=== PATIENT | female | born 1980 ===

== ENCOUNTER 2017-03-01 11:40 | Emergency (ER) | payer MEDICAID, OTHER ==
[2017-03-01 11:50] VITALS: BP 105/74; PULSE 118; RESP 20; TEMP 97.8; O2SAT 100
--- NOTE | 2017-03-01 13:08 | C.PDOC ---
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 Patient' s PMD is Dr. Reyes and was referred to psychiatrist but due to insurance complications, patient has been unable to follow up. Sister states patient ran out of Lexapro and Seroquel and when she is not taking medications the patient begins to get violent, spit, and attempts to leave the home. Patient's sister states patient is now cooperative and calm. Patient has no physical complaints and denies suicidal ideations. Time Seen by Provider: 03/01/17 12:10 Chief Complaint (Nursing): Psychiatric Evaluation History Per: Family (sister) History/Exam Limitations: no limitations Suicide/Self Injury Attempted (Context): None Modifying Factor(s): None Associated Symptoms: denies: Suicidal Thoughts Involuntary Hold By: None Recent travel outside of the [place]: No Additional History Per: Prior Records Past Medical History Reviewed: Historical Data, Nursing Documentation, Vital Signs Vital Signs: Last Vital Signs Temp 97.8 F 03/01/17 11:47 Pulse 118 H 03/01/17 11:47 Resp 20 03/01/17 11:47 BP 105/74 03/01/17 11:47 Pulse Ox 100 03/01/17 13:18 - Medical History PMH: Depression, Schizophrenia Family History: States: Unknown Family Hx - Social History Hx Tobacco Use: No Hx Alcohol Use: No Hx Substance Use: No Review Of Systems Constitutional: Negative for: Fever, Chills Cardiovascular: Negative for: Chest Pain, Palpitations Respiratory: Negative for: Cough, Shortness of Breath Gastrointestinal: Negative for: Nausea, Vomiting, Abdominal Pain, Diarrhea Psych: Negative for: Suicidal ideation Physical Exam - Physical Exam Appears: Non-toxic, No Acute Distress, Other (Patient is hunched over with eyes down ) Skin: Warm, Dry, No Rash Head: Atraumatic, Normacephalic, No Tenderness Eye(s): bilateral: Normal Inspection, PERRL, EOMI Oral Mucosa: Moist Neck: Supple Chest: Symmetrical, No Deformity Cardiovascular: Rhythm Regular, No Murmur Respiratory: No Rales, No Rhonchi, No Wheezing, Other (clear to auscultation bilaterally ) Gastrointestinal/Abdominal: Soft, No Tenderness, No Distention, No Guarding, No Rebound Neurological/Psych: Other (patient is at neurological baseline and seems quiet and withdrawn ) ED Course And Treatment O2 Sat by Pulse Oximetry: 100 (RA) Pulse Ox Interpretation: Normal Medical Decision Making Medical Decision Making: CRISIS intervened with patient's management and found there is a need for specialized psychiatry to handle mental delay as well as mental illness. Attempted to contact patient's PMD Dr. Reyes but no answer. Patient was given 10 days of medications and referred to [facility] by [facility] for mental delay services, as well as [facility] for mobile crisis team. Patient and sister left with information regarding those resources for appropriate follow up. Disposition - Disposition Disposition: HOME/ ROUTINE Disposition Time: 13:05 Condition: STABLE Additional Instructions: Follow up in [facility] as indicated by crisis team. Prescriptions: Escitalopram [Lexapro] 10 mg PO DAILY #10 tab QUEtiapine [SEROquel] 200 mg PO BID #20 tab Instructions: Schizophrenia (ED) Forms: Gen Discharge Inst Mauritanian, [employer] [facility] (Mauritanian) - POA Present On Arrival: None - Clinical Impression Clinical Impression: Schizophrenia, Mental retardation - Scribe Statement The provider has reviewed the documentation as recorded by the Scribe Joyce Agustin All medical record entries made by the Scribe were at my direction and personally dictated by me. I have reviewed the chart and agree that the record accurately reflects my personal performance of the history, physical exam, medical decision making, and the department course for this patient. I have also personally directed, reviewed, and agree with the discharge instructions and disposition.
== END 2017-03-01 13:20 | disposition home or self-care (01) ==
LOC: C.ER 11:40
DX: F20.9 Schizophrenia, unspecified (principal); F79 Unspecified intellectual disabilities

== ENCOUNTER 2017-03-27 20:48 | Inpatient (IN) | payer MEDICAID ==
[2017-03-27] MEDS ORDERED: Lactated Ringer's 1,000 ML IV ONE (21:36)
--- NOTE | 2017-03-27 21:36 | C.PDOC ---
History Of Present Illness Patient presents to ED with complaints of abdominal pain, nausea, vomiting, decreased PO intake since yesterday after eating at a buffet with her mother. Patient had 2-3 episodes of vomiting, diarrhea and hasn't been feeling well. History was obtained from mother, as pt is non verbal. Time Seen by Provider: 03/27/17 21:36 Chief Complaint (Nursing): Abdominal Pain History Per: Family (Mother ) History/Exam Limitations: clinical condition Onset/Duration Of Symptoms: Days (1) Current Symptoms Are (Timing): Still Present Context: Food Severity: Moderate Pain Scale Rating Of: 5 Location Of Pain/Discomfort: Diffuse Radiation Of Pain To:: None Quality Of Discomfort: Unable To Describe Associated Symptoms: Nausea, Vomiting, Diarrhea, Loss Of Appetite. denies: Chest Pain Exacerbating Factors: None Alleviating Factors: None Last Bowel Movement: Today Recent travel outside of the [place]: No Abnormal Vaginal Bleeding: No Past Medical History Reviewed: Historical Data, Nursing Documentation, Vital Signs Vital Signs: Last Vital Signs Temp 101.2 F H 03/28/17 01:31 Pulse 140 H 03/28/17 01:24 Resp 20 03/28/17 01:24 BP 123/79 03/28/17 01:24 Pulse Ox 98 03/28/17 01:25 - Medical History PMH: Depression, Schizophrenia Family History: States: No Known Family Hx - Social History Hx Tobacco Use: No Hx Alcohol Use: No Hx Substance Use: No - Immunization History Hx Tetanus Toxoid Vaccination: No Hx Influenza Vaccination: No Hx Pneumococcal Vaccination: No Review Of Systems Review Of Systems: ROS cannot be obtained secondary to pt's inabilty to answer questions. Physical Exam - Physical Exam Appears: Non-toxic, Other (Awake, Alert) Skin: Warm, Dry Head: Normacephalic Eye(s): bilateral: Normal Inspection Oral Mucosa: Moist Chest: Symmetrical, No Tenderness Cardiovascular: Rhythm Regular (tachy) Respiratory: No Rales, No Rhonchi, No Wheezing Gastrointestinal/Abdominal: Bowel Sounds (decreased bowel sounds), Soft, Tenderness (Diffuse), Distention, Guarding (Voluntary ), No Rebound, Other ( Tympanic to percussion ) Back: Normal Inspection Extremity: Normal ROM Extremity: Bilateral: Atraumatic, Normal Color And Temperature, Normal ROM Pulses: Left Dorsalis Pedis: Normal, Right Dorsalis Pedis: Normal Neurological/Psych: Other ([id number]) ED Course And Treatment - Laboratory Results Result Diagrams: 03/27/17 22:20 03/27/17 22:20 ECG: Interpreted By Me, Viewed By Me ECG Rhythm: Sinus Tachycardia (138), Nonspecific Changes O2 Sat by Pulse Oximetry: 98 (Room air) Pulse Ox Interpretation: Normal - Radiology CXR: Interpreted by Me, Viewed By Me CXR Interpretation: Yes: Other (? hiatal hernia, sbo?). No: Infiltrates, Fracture, Pnemothorax Progress Note: Administered Pepcid, Zofran Inj, and IV fluids. Ordered CT Abdomen & Pelvis, blood work, and Urinalysis. 10:40 PM Code sepsis called. 11: 08PM Spoke with dr waldrop (icu) will come and see the pt in the ed. awiting CT abdomen. I've placed an 18 fr NGT without difficulty. Aprox 27ooc of brownish fluid aspirated. Pt feels better, Abd now soft, nt. spoke with neurosurgical nurse, who came and evaluated the pt at bedside Critical Care Time - Critical Care Note Total Time (in mins): 50 Documented critical care: time excludes all time spent performing seperately billable procedures. Disposition Discussed With DrTony: Mauri Reyes Jr. Comment: accepted the pt on his service and took over the care at Doctor Will See Patient In The: ED Counseled Patient/Family Regarding: Studies Performed, Diagnosis - Disposition Disposition: HOSPITALIZED Disposition Time: 21:36 Condition: CRITICAL - POA Present On Arrival: Poor Glycemic Control - Clinical Impression Clinical Impression: Abdominal pain, Nausea, SBO (small bowel obstruction), Gastric distention - Scribe Statement The provider has reviewed the documentation as recorded by the Bhanu Liu All medical record entries made by the Nurisibselene were at my direction and personally dictated by me. I have reviewed the chart and agree that the record accurately reflects my personal performance of the history, physical exam, medical decision making, and the department course for this patient. I have also personally directed, reviewed, and agree with the discharge instructions and disposition. Decision To Admit - Pt Status Changed To: Hospital Disposition Of: Inpatient - Admit Certification Admit to Inpatient:: After my assessment, the patient will require hospitalization for at least two midnights. This is because of the severity of symptoms shown, intensity of services needed, and/or the medical risk in this patient being treated as an outpatient. - InPatient: Physician Admission Certification:: After my assessment, the patient will require hospitalization for at least two midnights. This is because of the severity of symptoms shown, intensity of services needed, and/or the medical risk in this patient being treated as an outpatient. - . Bed Request Type: ICU Admitting Physician: Mauri Reyes Jr. Patient Diagnosis: Abdominal pain, Nausea, SBO (small bowel obstruction), Gastric distention
[2017-03-27 22:24] LABS: BASO # 0.1 K/uL (0.0-0.2); BASO % 0.3 % (0.0-2.0); HEMOGLOBIN 14.6 g/dL (11.0-16.0); LYMPH # 0.6 K/uL (1.0-4.3); LYMPH % 2.1 % (20.0-40.0); MEAN CELL VOLUME 85.9 fL (81.0-99.0); MEAN CORPUSCULAR HEMOGLOBIN 28.1 pg (27.0-31.0); MEAN CORPUSCULAR HGB CONC 32.7 g/dL (33.0-37.0); MEAN PLATELET VOLUME 9.7 fL (7.2-11.7); MONO # 1.4 K/uL (0.0-0.8); MONO % 5.3 % (0.0-10.0); NEUT # 24.6 K/uL (1.8-7.0); NEUT % 92.3 % (50.0-75.0); PLATELET COUNT 391 K/uL (130-400); RED CELL DISTRIBUTION WIDTH 13.2 % (11.5-14.5); WHITE BLOOD COUNT 26.7 K/uL (4.8-10.8)
[2017-03-27] MEDS ORDERED: Piperacillin/Tazobact 3.375 gm 100 ML IVPB STA (22:29)
[2017-03-27 22:34] LABS: VENOUS BLOOD GAS BASE EXCESS -5.2 mmol/L (0.0-2.0); VENOUS BLOOD GAS PCO2 57 mmHg (40-60); VENOUS BLOOD GAS PO2 21 mm/Hg (30-55); VENOUS BLOOD PH 7.22 (7.32-7.43)
[2017-03-27] MEDS ORDERED: Lactated Ringer's 2,000 ML IV ONE (22:35)
[2017-03-27 22:42] LABS: ALB/GLOB RATIO 1.2 (1.0-2.1); ALBUMIN 5.2 g/dL (3.5-5.0); CALCIUM 9.2 mg/dl (8.6-10.4)
[2017-03-27] MEDS ORDERED: Vancomycin 1 gm/NS 200 ml 1 GM/200 ML BAG IVPB STA (22:44)
[2017-03-27] MEDS ORDERED: Piperacillin/Tazobact 3.375 gm 100 ML IVPB ONE (23:13)
[2017-03-27] MEDS ORDERED: Iodixanol 320 MG/ML 100 ML BOTTLE IV ONE (23:14)
[2017-03-27 23:39] LABS: BANDS 2 % (0-2); LYMPHOCYTE 3 % (20-40); MONOCYTE 4 % (0-10); NEUTROPHIL 91 % (50-75); PLATELET ESTIMATE NORMAL (NORMAL); TOTAL CELLS COUNTED 100
[2017-03-27] MEDS ORDERED: Lactated Ringer's 1,000 ML IV SCH (23:45)
[2017-03-27] MEDS ORDERED: HYDROmorphone 0.5 mg/0.5 ml ISec IVP PRN (23:45)
--- NOTE | 2017-03-28 00:12 | CP.PCM.CON ---
History of Present Illness - History of Present Illness History of Present Illness: 36 y/o female with schizophrenia,mentally handicapped,non verbal brought in by family for diarrhea,poor oral intake and "bigger stomach".Patient went out with family for dinner yesterday,while at the restaurant she went to the toilet and was unsteady.Had diarrhea starting about 5 hours later with small amout of vomiting..No diarrhea today Patient able to eat by herself,walk In ER patient tachycardic with leucocytosis,elevated lactic acid and lipase. She was on Lexapro 10mg daily and Seroquel 200mg bid until about 1 wk ago.Meds not continued as patient moved to [place] (to live with sister) and has not found a physician yet History from patients sister Review of Systems - Review of Systems Review of Systems: patient non verbal Past Patient History - Past Social History Smoking Status: Never Smoked Home Situation {Lives}: With Family - NEUROLOGICAL Other/Comment: NEURO / DEVELOPMENTAL PROBLEM - PSYCHIATRIC Hx Depression: Yes Hx Schizophrenia: Yes Hx Substance Use: No - SURGICAL HISTORY Hx Surgeries: No - ANESTHESIA Hx Anesthesia: No Meds Allergies/Adverse Reactions: Allergies Allergy/AdvReac Type Severity Reaction Status Date / Time No Known Allergies Allergy Unverified 03/27/17 21:28 - Medications Medications: Current Medications Hydromorphone HCl (Dilaudid) 0.5 mg IVP Q6H PRN PRN Reason: Pain, severe (8-10) Vancomycin/Sodium Chloride (Vancomycin 1 Gm/Ns 200 Ml) 1 gm in 200 mls @ 133.333 mls/hr IVPB STAT STA Stop: 03/28/17 00:13 Last Admin: 03/27/17 23:46 Dose: 133.333 mls/hr Lactated Ringer's (Lactated Ringer's) 2,000 mls @ 1,000 mls/hr IV .Q2H ONE Stop: 03/28/17 00:34 Last Admin: 03/27/17 22:57 Dose: 1,000 mls/hr Metronidazole (Flagyl) 500 mg in 100 mls @ 100 mls/hr IVPB Q8 AGUSTIN Lactated Ringer's (Lactated Ringer's) 1,000 mls @ 100 mls/hr IV .Q10H AGUSTIN Ondansetron HCl (Zofran Inj) 4 mg IVP Q6H PRN PRN Reason: Nausea/Vomiting Pantoprazole Sodium (Protonix Inj) 40 mg IVP DAILY AGUSTIN Physical Exam - Constitutional Additional comments: awake,does not follow commands - Head Exam Head Exam: ATRAUMATIC, NORMAL INSPECTION, NORMOCEPHALIC - Eye Exam Eye Exam: Normal appearance, PERRL. absent: Scleral icterus - ENT Exam ENT Exam: Mucous Membranes Dry - Neck Exam Neck exam: Positive for: Normal Inspection. Negative for: Lymphadenopathy - Respiratory Exam Respiratory Exam: Clear to Auscultation Bilateral. absent: Accessory Muscle Use - Cardiovascular Exam Cardiovascular Exam: Tachycardia - GI/Abdominal Exam GI & Abdominal Exam: Distended, Firm. absent: Guarding, Rigid Additional comments: absent bowel sounds - Extremities Exam Extremities exam: Positive for: normal inspection, pedal pulses present. Negative for: pedal edema - Skin Skin Exam: Intact, Normal Color, Warm Results - Vital Signs Recent Vital Signs: Last Vital Signs Temp 99.0 F 03/27/17 23:33 Pulse 144 H 03/27/17 23:33 Resp 40 H 03/27/17 23:33 BP 136/92 H 03/27/17 23:33 Pulse Ox 100 03/27/17 23:33 - Labs Result Diagrams: 03/27/17 22:20 03/27/17 22:20 Labs: Laboratory Results - last 24 hr 03/27/17 03/27/17 03/27/17 22:20 22:20 22:28 WBC 26.7 H RBC 5.20 Hgb 14.6 Hct 44.7 MCV 85.9 MCH 28.1 MCHC 32.7 L RDW 13.2 Plt Count 391 MPV 9.7 Neut % (Auto) 92.3 H Lymph % (Auto) 2.1 L [place] % (Auto) 5.3 Eos % (Auto) 0.0 Baso % (Auto) 0.3 Neut # 24.6 H Lymph # 0.6 L [place] # 1.4 H Eos # 0.0 Baso # 0.1 Neutrophils % (Manual) 91 H Band Neutrophils % 2 Lymphocytes % (Manual) 3 L Monocytes % (Manual) 4 Platelet Estimate Normal RBC Morphology Normal pO2 21 L VBG pH 7.22 L VBG pCO2 57 VBG HCO3 18.9 VBG Total CO2 25.0 VBG O2 Sat (Calc) 30.3 L VBG Base Excess -5.2 L VBG Potassium 3.9 Glucose 321 H Lactate 9.7 H* Crit Value Called To Er nurse arelis Crit Value Called By Kayy rothman Crit Value Read Back Y Blood Gas Notified Time 4 Sodium 145 146.0 Potassium 4.5 Chloride 100 100.0 Carbon Dioxide 21 L Anion Gap 29 H BUN 19 H Creatinine 1.7 H Est GFR ( Amer) 42 Est GFR (Non-Af Amer) 34 Random Glucose 324 H Calcium 9.2 Total Bilirubin 0.9 AST 44 H ALT 65 H Alkaline Phosphatase 79 Total Protein 9.6 H Albumin 5.2 H Globulin 4.4 H Albumin/Globulin Ratio 1.2 Lipase 8456 H Beta HCG, Quant Venous Blood Potassium 3.9 03/27/17 23:16 WBC RBC Hgb Hct MCV MCH MCHC RDW Plt Count MPV Neut % (Auto) Lymph % (Auto) [place] % (Auto) Eos % (Auto) Baso % (Auto) Neut # Lymph # [place] # Eos # Baso # Neutrophils % (Manual) Band Neutrophils % Lymphocytes % (Manual) Monocytes % (Manual) Platelet Estimate RBC Morphology pO2 VBG pH VBG pCO2 VBG HCO3 VBG Total CO2 VBG O2 Sat (Calc) VBG Base Excess VBG Potassium Glucose Lactate Crit Value Called To Crit Value Called By Crit Value Read Back Blood Gas Notified Time Sodium Potassium Chloride Carbon Dioxide Anion Gap BUN Creatinine Est GFR ( Amer) Est GFR (Non-Af Amer) Random Glucose Calcium Total Bilirubin AST ALT Alkaline Phosphatase Total Protein Albumin Globulin Albumin/Globulin Ratio Lipase Beta HCG, Quant < 2.39 Venous Blood Potassium - EKG Data EKG Interpreted by: Myself Rate: Tachycardia - Impressions Impression: sinus tachycardia rate 138/min - Imaging and Cardiology Chest x-ray Additional comment: pending CT scan - abdomen Additional comment: pending Assessment & Plan - Assessment and Plan (Free Text) Assessment: 36 y/o nonverbal female admitted with diarrhea,tachycardia,elevated WBC count , lipase and lactic acid. 1.Sepsis /Pancreatitis r/o perforation- IV fluids,antibiotics, repeat lactic acid level,lipase CT abdomen 2.Hyperglycemia-no h/o DM accucheck with coverage,HbAIC 3.Elevated LFT 4.Schizophrenia-off meds x 1 wk.
[2017-03-28] MEDS ORDERED: metroNIDAZOLE IV 500 mg/100 ml 500 MG/100 ML BAG ONE (00:54)
[2017-03-28] MEDS ORDERED: Lactated Ringer's 1,000 ML ONE (01:30)
[2017-03-28] MEDS ORDERED: Sodium Chloride 0.9% 1,000 ML IV ONE (01:30)
[2017-03-28] MEDS: metroNIDAZOLE IV 500 mg/100 ml 500 MG/100 ML BAG IVPB SCH ×4 (01:31→21:17)
--- NOTE | 2017-03-28 01:36 | CT ---
EXAM: CT Abdomen and Pelvis With Intravenous Contrast CLINICAL HISTORY: 36 years old, female; Pain; Abdominal pain and other: Vomiting; Additional info: Abd pain, n/v TECHNIQUE: Axial computed tomography images of the abdomen and pelvis with intravenous contrast. All CT scans at this facility use one or more dose reduction techniques, viz.: automated exposure control; ma/kV adjustment per patient size (including targeted exams where dose is matched to indication; i.e. head); or iterative reconstruction technique. 645 images are submitted. Axial images are submitted in soft tissue and lung windows. Coronal and sagittal reformatted images were created and reviewed. CONTRAST: 100 mL of [id number] administered intravenously. COMPARISON: No relevant prior studies available. FINDINGS: Lower thorax: Fluid distention of the distal esophagus measuring 3.3 cm seen on image 1 series 3 representing delayed emptying versus gastroesophageal reflux. There can increase patient's risk of aspiration. ABDOMEN: Liver: There is complete compression and flattening of portal vein and IVC seen on image 29 series 2. The SMV is not visualized. Correlation with patient's volume status is recommended. Fatty liver. Gallbladder and bile ducts: Partially contracted gallbladder. Pancreas: Unremarkable. No mass. No ductal dilation. Spleen: Unremarkable. No splenomegaly. Adrenals: Unremarkable. No mass. Kidneys and ureters: Unremarkable. No solid mass. No hydronephrosis. Stomach and bowel: There is massive gastric distention measuring 32 cm and distention of the first and third and second portion of the duodenum with transition and complete decompression of the third portion of the duodenum seen on image 88 series 3 representing duodenal obstruction versus delayed emptying versus motility disorder/gastroparesis in view of patient's relative decreased symptoms of vomiting i.e. minimal nausea in proportion to the massive gastric distention seen on the CT as indicated by the clinician. No mucosal thickening. Appendix: No findings to suggest acute appendicitis. PELVIS: Bladder: A Tovar catheter is in the decompressed bladder. Reproductive: Uterus is seen. ABDOMEN and PELVIS: Intraperitoneal space: Unremarkable. No free air. No significant fluid collection. Bones/joints: No acute fracture. No dislocation. Soft tissues: Unremarkable. Vasculature: Prominent pelvic vessels. There there aorta also demonstrates normal caliber which could represent patient's anatomy versus hypovolemia. Clinically the patient has no symptoms of hypovolemia other than tachycardia. Lymph nodes: Unremarkable. No enlarged lymph nodes. IMPRESSION: 1. There is massive gastric distention measuring 32 cm and distention of the first and third and second portion of the duodenum with transition and complete decompression of the third portion of the duodenum seen on image 88 series 3 representing duodenal obstruction versus delayed emptying versus motility disorder/gastroparesis in view of patient's relative decreased symptoms of vomiting i.e. minimal nausea in proportion to the massive gastric distention seen on the CT as indicated by the clinician. 2. Fluid distention of the distal esophagus measuring 3.3 cm seen on image 1 series 3 representing delayed emptying versus gastroesophageal reflux. There can increase patient's risk of aspiration. 3. There is complete compression and flattening of portal vein and IVC seen on image 29 series 2. The SMV is not visualized. Correlation with patient's volume status is recommended.
[2017-03-28 01:43] LABS: SQUAMOUS EPITHIAL 7 /hpf (0-5); URINE BACTERIA MOD (<OCC); URINE BILIRUBIN NEGATIVE (NEGATIVE); URINE BLOOD 1+ (NEGATIVE); URINE CLARITY Hazy (Clear); URINE COLOR Yellow (YELLOW); URINE GLUCOSE (UA) 1+ mg/dL (Normal); URINE LEUKOCYTE ESTERASE NEG Leu/uL (Negative); URINE PROTEIN 3+ mg/dL (NEGATIVE); URINE UROBILINOGEN NORMAL mg/dL (0.2-1.0); WBC CLUMPS MOD /hpf
[2017-03-28] MEDS ORDERED: Lactated Ringer's 1,000 ML IV SCH (01:46)
[2017-03-28 01:47] LABS: HCG,QUALITATIVE URINE NEGATIVE (NEGATIVE)
--- NOTE | 2017-03-28 02:10 | CP.PCM.HP ---
History of Present Illness - History of Present Illness History of Present Illness: H/P For Dr. Reyes CC: Abdominal Distension HPI: Patient is a 36F with a PMH of schizophrenia comes to ED with increasing abdominal distension as noted by the mother. Patient and patients mother went to a buffet yesterday. After this both the mother and the patient had some diarrhea. The patient continued to have diarrhea. She later became dizzy and was unable to stand without assistance. Patient is nonverbal at baseline but usually ambulates independently. Nothing has made her symptoms better or worse. She is unable to describe the quality of her pain. She is unable to describe any radiation or quantify severity. The diarrhea has continued and her belly has become progressively larger. Denies any Vomiting. A CT was ordered in ED that showed massive gastric distension. NGT placed. Fem TLC placed. ICU consulted. ROS: Unattainable PMH: Schizophrenia, Mental disability PSH: None FH: Unremarkable Meds: Lexapro, Seroquel All: None Present on Admission - Present on Admission Any Indicators Present on Admission: No Review of Systems - Review of Systems Review of Systems: per HPI Past Patient History - Past Social History Smoking Status: Never Smoked Home Situation {Lives}: With Family - NEUROLOGICAL Other/Comment: NEURO / DEVELOPMENTAL PROBLEM - PSYCHIATRIC Hx Depression: Yes Hx Schizophrenia: Yes Hx Substance Use: No - SURGICAL HISTORY Hx Surgeries: No - ANESTHESIA Hx Anesthesia: No Meds Allergies/Adverse Reactions: Allergies Allergy/AdvReac Type Severity Reaction Status Date / Time No Known Allergies Allergy Unverified 03/27/17 21:28 Physical Exam - Constitutional Appears: In Acute Distress Additional comments: shaking - Head Exam Head Exam: ATRAUMATIC, NORMAL INSPECTION, NORMOCEPHALIC - Eye Exam Eye Exam: EOMI Pupil Exam: NORMAL ACCOMODATION - ENT Exam ENT Exam: Mucous Membranes Dry - Respiratory Exam Respiratory Exam: Clear to Auscultation Bilateral, NORMAL BREATHING PATTERN - Cardiovascular Exam Cardiovascular Exam: Tachycardia - GI/Abdominal Exam GI & Abdominal Exam: Diminished Bowel Sounds, Distended, Firm. absent: Guarding , Soft - Extremities Exam Extremities exam: Negative for: joint swelling, tenderness - Skin Skin Exam: Dry, Intact, Normal Color Results - Vital Signs Recent Vital Signs: Last Vital Signs Temp 101.2 F H 03/28/17 01:31 Pulse 140 H 03/28/17 01:24 Resp 20 03/28/17 01:24 BP 123/79 03/28/17 01:24 Pulse Ox 98 03/28/17 01:25 - Labs Result Diagrams: 03/27/17 22:20 03/27/17 22:20 Labs: Laboratory Results - last 24 hr 03/27/17 03/27/17 03/27/17 22:20 22:20 22:28 WBC 26.7 H RBC 5.20 Hgb 14.6 Hct 44.7 MCV 85.9 MCH 28.1 MCHC 32.7 L RDW 13.2 Plt Count 391 MPV 9.7 Neut % (Auto) 92.3 H Lymph % (Auto) 2.1 L [place] % (Auto) 5.3 Eos % (Auto) 0.0 Baso % (Auto) 0.3 Neut # 24.6 H Lymph # 0.6 L [place] # 1.4 H Eos # 0.0 Baso # 0.1 Neutrophils % (Manual) 91 H Band Neutrophils % 2 Lymphocytes % (Manual) 3 L Monocytes % (Manual) 4 Platelet Estimate Normal RBC Morphology Normal pO2 21 L VBG pH 7.22 L VBG pCO2 57 VBG HCO3 18.9 VBG Total CO2 25.0 VBG O2 Sat (Calc) 30.3 L VBG Base Excess -5.2 L VBG Potassium 3.9 Glucose 321 H Lactate 9.7 H* Crit Value Called To Er nurse arelis Crit Value Called By Kayy rothman Crit Value Read Back Y Blood Gas Notified Time 2234 Sodium 145 146.0 Potassium 4.5 Chloride 100 100.0 Carbon Dioxide 21 L Anion Gap 29 H BUN 19 H Creatinine 1.7 H Est GFR ( Amer) 42 Est GFR (Non-Af Amer) 34 Random Glucose 324 H Lactic Acid Calcium 9.2 Total Bilirubin 0.9 AST 44 H ALT 65 H Alkaline Phosphatase 79 Total Protein 9.6 H Albumin 5.2 H Globulin 4.4 H Albumin/Globulin Ratio 1.2 Lipase 8456 H Beta HCG, Quant Venous Blood Potassium 3.9 Urine Color Urine Clarity Urine pH Ur Specific [place] Urine Protein Urine Glucose (UA) Urine Ketones Urine Blood Urine Nitrate Urine Bilirubin Urine Urobilinogen Ur Leukocyte Esterase Urine WBC (Auto) Urine RBC (Auto) Urine WBC Clumps (Auto) Ur Squamous Epith Cells Urine Bacteria Urine Yeast (Budding) Urine HCG, Qual 03/27/17 03/28/17 03/28/17 23:16 01:05 01:35 WBC RBC Hgb Hct MCV MCH MCHC RDW Plt Count MPV Neut % (Auto) Lymph % (Auto) [place] % (Auto) Eos % (Auto) Baso % (Auto) Neut # Lymph # [place] # Eos # Baso # Neutrophils % (Manual) Band Neutrophils % Lymphocytes % (Manual) Monocytes % (Manual) Platelet Estimate RBC Morphology pO2 VBG pH VBG pCO2 VBG HCO3 VBG Total CO2 VBG O2 Sat (Calc) VBG Base Excess VBG Potassium Glucose Lactate Crit Value Called To Crit Value Called By Crit Value Read Back Blood Gas Notified Time Sodium Potassium Chloride Carbon Dioxide Anion Gap BUN Creatinine Est GFR ( Amer) Est GFR (Non-Af Amer) Random Glucose Lactic Acid 9.2 H* Calcium Total Bilirubin AST ALT Alkaline Phosphatase Total Protein Albumin Globulin Albumin/Globulin Ratio Lipase Beta HCG, Quant < 2.39 Venous Blood Potassium Urine Color Yellow Urine Clarity Hazy Urine pH 5.0 Ur Specific [place] > 1.060 H Urine Protein 3+ H Urine Glucose (UA) 1+ Urine Ketones Negative Urine Blood 1+ H Urine Nitrate Negative Urine Bilirubin Negative Urine Urobilinogen Normal Ur Leukocyte Esterase Neg Urine WBC (Auto) 20 H Urine RBC (Auto) 45 H Urine WBC Clumps (Auto) Mod H Ur Squamous Epith Cells 7 H Urine Bacteria Mod H Urine Yeast (Budding) Occ H Urine HCG, Qual Negative Assessment & Plan - Assessment and Plan (Free Text) Assessment: Duodenal Obstruction Vs Delayed Gastric Emptying * CT (03/28) - Massive gastric distension and 1st/2nd part of duodenum. Esophageal dilatation. Collapsed IVC/SMV * NGT 2800 out in ED * Surgery ([place]) * recommending GI consult * will continue to monitor * NPO Sepsis 2/2 to possible Pancreatitis * NPO * LR @ 125 * Received 3L LR in ED * Lactate 9.7 --> 9.2 * Lipase 8456 * Meds * Dilaudid 0.5 IV Q6 * Flagyl 500 IV Q8 * Zosyn 3.375 IV Q8 * Gent 80mg IV Once * Vanco 1g IV Once Hyperglycemia * accucheck * ISS High * A1C PPX * Protonix 40 IV QD * Heparin 5000 SC QD
--- NOTE | 2017-03-28 02:29 | CP.PCM.CON ---
<Munira Rothman - Last Filed: 03/28/17 03:09> History of Present Illness - History of Present Illness History of Present Illness: General surgery consult for Dr. Griffin Rothman, PGY-1 Pt S & E at bedside. History as per sister at bedside & EMR- pt is non verbal 36F w/PMH sig for schizophrenia, cognitive delay/non verbal consulted for abdominal pain, distention x 1 day. Sister reports taking pt to [facility]. Pt had diarrhea 5 hours afterwards w/small amount of emesis. Pt then became dizzy, unable to stand w/o assitance. In ED pt noted to have Temp 101.2, leukocytosis of 26.7, lactate 9.7, lipase 8456, CT abdomen with marked gastric distention of 32cm w/distention of 1st, 2nd , and 3rd portions of duodenum, complete decompression of 3rd portion of duodenum. - NGT placed with over 3 L of fluid out- abdominal distention markedly improved. PMH: Depression, Schizophrenia, cognitive delay/non verbal PSH: Denies All: NKDA SH: Denies ETOH, tobacco or illicit drug use; lives with sister; usually able to ambulate w/o assistance Review of Systems - Review of Systems Systems not reviewed;Unavailable: Other (pt non verbal, unresponsive to questioning) - Gastrointestinal Gastrointestinal: Abdominal Pain, Bloating, Diarrhea, Nausea, Vomiting. absent : Hematemesis, Hematochezia Past Patient History - Past Social History Smoking Status: Never Smoked Home Situation {Lives}: With Family - NEUROLOGICAL Other/Comment: NEURO / DEVELOPMENTAL PROBLEM - PSYCHIATRIC Hx Depression: Yes Hx Schizophrenia: Yes Hx Substance Use: No - SURGICAL HISTORY Hx Surgeries: No - ANESTHESIA Hx Anesthesia: No Meds Allergies/Adverse Reactions: Allergies Allergy/AdvReac Type Severity Reaction Status Date / Time No Known Allergies Allergy Unverified 03/27/17 21:28 - Medications Medications: Current Medications Hydromorphone HCl (Dilaudid) 0.5 mg IVP Q6H PRN PRN Reason: Pain, severe (8-10) Metronidazole (Flagyl) 500 mg in 100 mls @ 100 mls/hr IVPB Q8 [facility] Last Admin: 03/28/17 01:31 Dose: 100 mls/hr Sodium Chloride (Sodium Chloride 0.9%) 1,000 mls @ 1,000 mls/hr IV .Q1H ONE Stop: 03/28/17 02:29 Lactated Ringer's (Lactated Ringer's) 1,000 mls @ 125 mls/hr IV .Q8H [facility] Piperacillin Sod/Tazobactam (Sod 3.375 gm/ Sodium Chloride) 100 mls @ 200 mls/ hr IVPB Q8H [facility] Insulin Human Regular (Novolin R) 0 unit SC Q4H [facility] PRN Reason: Protocol Ondansetron HCl (Zofran Inj) 4 mg IVP Q6H PRN PRN Reason: Nausea/Vomiting Pantoprazole Sodium (Protonix Inj) 40 mg IVP DAILY [facility] Physical Exam - Constitutional Appears: Non-toxic, No Acute Distress - Head Exam Head Exam: ATRAUMATIC, NORMAL INSPECTION, NORMOCEPHALIC - Eye Exam Eye Exam: EOMI, Normal appearance - ENT Exam ENT Exam: Mucous Membranes Dry Additional comments: NGT in place w/dark brown gastric contents retrieved , >3L - Neck Exam Neck exam: Positive for: Full Rom, Normal Inspection - Respiratory Exam Respiratory Exam: NORMAL BREATHING PATTERN - Cardiovascular Exam Cardiovascular Exam: Tachycardia, +S1, +S2 - GI/Abdominal Exam GI & Abdominal Exam: Soft. absent: Distended, Firm, Guarding, Rebound, Tenderness - Extremities Exam Extremities exam: Negative for: pedal edema - Neurological Exam Neurological exam: Alert, CN II-XII Intact Additional comments: non verbal - Psychiatric Exam Additional comments: Unable to assess, pt non verbal - Skin Skin Exam: Dry, Intact, Normal Color, Warm Results - Vital Signs Recent Vital Signs: Last Vital Signs Temp 101.2 F H 03/28/17 01:31 Pulse 140 H 03/28/17 01:24 Resp 20 03/28/17 01:24 BP 123/79 03/28/17 01:24 Pulse Ox 98 03/28/17 02:12 - Labs Result Diagrams: 03/27/17 22:20 03/27/17 22:20 Labs: Laboratory Results - last 24 hr 03/27/17 03/27/17 03/27/17 22:20 22:20 22:28 WBC 26.7 H RBC 5.20 Hgb 14.6 Hct 44.7 MCV 85.9 MCH 28.1 MCHC 32.7 L RDW 13.2 Plt Count 391 MPV 9.7 Neut % (Auto) 92.3 H Lymph % (Auto) 2.1 L [place] % (Auto) 5.3 Eos % (Auto) 0.0 Baso % (Auto) 0.3 Neut # 24.6 H Lymph # 0.6 L [place] # 1.4 H Eos # 0.0 Baso # 0.1 Neutrophils % (Manual) 91 H Band Neutrophils % 2 Lymphocytes % (Manual) 3 L Monocytes % (Manual) 4 Platelet Estimate Normal RBC Morphology Normal pO2 21 L VBG pH 7.22 L VBG pCO2 57 VBG HCO3 18.9 VBG Total CO2 25.0 VBG O2 Sat (Calc) 30.3 L VBG Base Excess -5.2 L VBG Potassium 3.9 Glucose 321 H Lactate 9.7 H* Crit Value Called To Er nurse arelis Crit Value Called By Kayy rothman Crit Value Read Back Y Blood Gas Notified Time 2233 Sodium 145 146.0 Potassium 4.5 Chloride 100 100.0 Carbon Dioxide 21 L Anion Gap 29 H BUN 19 H Creatinine 1.7 H Est GFR ( Amer) 42 Est GFR (Non-Af Amer) 34 Random Glucose 324 H Lactic Acid Calcium 9.2 Total Bilirubin 0.9 AST 44 H ALT 65 H Alkaline Phosphatase 79 Total Protein 9.6 H Albumin 5.2 H Globulin 4.4 H Albumin/Globulin Ratio 1.2 Lipase 8456 H Beta HCG, Quant Venous Blood Potassium 3.9 Urine Color Urine Clarity Urine pH Ur Specific [place] Urine Protein Urine Glucose (UA) Urine Ketones Urine Blood Urine Nitrate Urine Bilirubin Urine Urobilinogen Ur Leukocyte Esterase Urine WBC (Auto) Urine RBC (Auto) Urine WBC Clumps (Auto) Ur Squamous Epith Cells Urine Bacteria Urine Yeast (Budding) Urine HCG, Qual Stool Occult Blood 03/27/17 03/28/17 03/28/17 23:16 01:05 01:35 WBC RBC Hgb Hct MCV MCH MCHC RDW Plt Count MPV Neut % (Auto) Lymph % (Auto) [place] % (Auto) Eos % (Auto) Baso % (Auto) Neut # Lymph # [place] # Eos # Baso # Neutrophils % (Manual) Band Neutrophils % Lymphocytes % (Manual) Monocytes % (Manual) Platelet Estimate RBC Morphology pO2 VBG pH VBG pCO2 VBG HCO3 VBG Total CO2 VBG O2 Sat (Calc) VBG Base Excess VBG Potassium Glucose Lactate Crit Value Called To Crit Value Called By Crit Value Read Back Blood Gas Notified Time Sodium Potassium Chloride Carbon Dioxide Anion Gap BUN Creatinine Est GFR ( Amer) Est GFR (Non-Af Amer) Random Glucose Lactic Acid 9.2 H* Calcium Total Bilirubin AST ALT Alkaline Phosphatase Total Protein Albumin Globulin Albumin/Globulin Ratio Lipase Beta HCG, Quant < 2.39 Venous Blood Potassium Urine Color Yellow Urine Clarity Hazy Urine pH 5.0 Ur Specific [place] > 1.060 H Urine Protein 3+ H Urine Glucose (UA) 1+ Urine Ketones Negative Urine Blood 1+ H Urine Nitrate Negative Urine Bilirubin Negative Urine Urobilinogen Normal Ur Leukocyte Esterase Neg Urine WBC (Auto) 20 H Urine RBC (Auto) 45 H Urine WBC Clumps (Auto) Mod H Ur Squamous Epith Cells 7 H Urine Bacteria Mod H Urine Yeast (Budding) Occ H Urine HCG, Qual Negative Stool Occult Blood 03/28/17 02:18 WBC RBC Hgb Hct MCV MCH MCHC RDW Plt Count MPV Neut % (Auto) Lymph % (Auto) [place] % (Auto) Eos % (Auto) Baso % (Auto) Neut # Lymph # [place] # Eos # Baso # Neutrophils % (Manual) Band Neutrophils % Lymphocytes % (Manual) Monocytes % (Manual) Platelet Estimate RBC Morphology pO2 VBG pH VBG pCO2 VBG HCO3 VBG Total CO2 VBG O2 Sat (Calc) VBG Base Excess VBG Potassium Glucose Lactate Crit Value Called To Crit Value Called By Crit Value Read Back Blood Gas Notified Time Sodium Potassium Chloride Carbon Dioxide Anion Gap BUN Creatinine Est GFR ( Amer) Est GFR (Non-Af Amer) Random Glucose Lactic Acid Calcium Total Bilirubin AST ALT Alkaline Phosphatase Total Protein Albumin Globulin Albumin/Globulin Ratio Lipase Beta HCG, Quant Venous Blood Potassium Urine Color Urine Clarity Urine pH Ur Specific [place] Urine Protein Urine Glucose (UA) Urine Ketones Urine Blood Urine Nitrate Urine Bilirubin Urine Urobilinogen Ur Leukocyte Esterase Urine WBC (Auto) Urine RBC (Auto) Urine WBC Clumps (Auto) Ur Squamous Epith Cells Urine Bacteria Urine Yeast (Budding) Urine HCG, Qual Stool Occult Blood Positive H Assessment & Plan - Assessment and Plan (Free Text) Assessment: 36F w/abdominal pain, likely due to combination of marked gastric distention with resolution after NGT placement & pancreatitis. Plan: NPO NGT IVF at high rate Pain control serial abdominal exams FU AM labs Recommend GI consult for possible gastroparesis vs. dysmotility disorder vs. other entity Further recs as per attending DW attending Lorna, PGY-1 - Date & Time Date: 03/28/17 Time: 00:40 <Costa Camacho - Last Filed: 03/28/17 09:37> History of Present Illness - History of Present Illness History of Present Illness: Pt for repeat CT now that stomach is decompressed. R/O obstruction. Gastric distension may be 2/2 medication Meds - Medications Medications: Current Medications Hydromorphone HCl (Dilaudid) 0.5 mg IVP Q6H PRN PRN Reason: Pain, severe (8-10) Metronidazole (Flagyl) 500 mg in 100 mls @ 100 mls/hr IVPB Q8 [facility] Last Admin: 03/28/17 05:00 Dose: 100 mls/hr Piperacillin Sod/Tazobactam Sod (Zosyn 3.375 Gm Iv Premix) 3.375 gm in 50 mls @ 100 mls/hr IVPB Q8H [facility] Last Admin: 03/28/17 03:50 Dose: 100 mls/hr Potassium Chloride 10 meq/ (Dextrose/Lactated Ringer's) 1,005 mls @ 150 mls/hr IV .Q6H42M [facility] Last Admin: 03/28/17 03:30 Dose: 150 mls/hr Sodium Chloride (Sodium Chloride 0.9%) 1,000 mls @ 250 mls/hr IV .Q4H [facility] Last Admin: 03/28/17 08:22 Dose: 250 mls/hr Insulin Human Regular (Novolin R) 0 unit SC Q4H [facility] PRN Reason: Protocol Last Admin: 03/28/17 08:58 Dose: Not Given Ondansetron HCl (Zofran Inj) 4 mg IVP Q6H PRN PRN Reason: Nausea/Vomiting Pantoprazole Sodium (Protonix Inj) 40 mg IVP DAILY [facility] Pneumococcal Polyvalent Vaccine (Pneumovax 23 Vaccine) 0.5 ml IM .ONCE ONE Stop: 03/30/17 10:01 Results - Vital Signs Recent Vital Signs: Last Vital Signs Temp 98.9 F 03/28/17 05:00 Pulse 142 H 03/28/17 08:30 Resp 45 H 03/28/17 08:30 BP 119/84 03/28/17 07:53 Pulse Ox 98 03/28/17 08:30 - Labs Result Diagrams: 03/28/17 05:41 03/28/17 05:41 Labs: Laboratory Results - last 24 hr 03/27/17 03/27/17 03/27/17 22:20 22:20 22:28 WBC 26.7 H RBC 5.20 Hgb 14.6 Hct 44.7 MCV 85.9 MCH 28.1 MCHC 32.7 L RDW 13.2 Plt Count 391 MPV 9.7 Neut % (Auto) 92.3 H Lymph % (Auto) 2.1 L [place] % (Auto) 5.3 Eos % (Auto) 0.0 Baso % (Auto) 0.3 Neut # 24.6 H Lymph # 0.6 L [place] # 1.4 H Eos # 0.0 Baso # 0.1 Neutrophils % (Manual) 91 H Band Neutrophils % 2 Lymphocytes % (Manual) 3 L Monocytes % (Manual) 4 Platelet Estimate Normal RBC Morphology Normal pO2 21 L VBG pH 7.22 L VBG pCO2 57 VBG HCO3 18.9 VBG Total CO2 25.0 VBG O2 Sat (Calc) 30.3 L VBG Base Excess -5.2 L VBG Potassium 3.9 Glucose 321 H Lactate 9.7 H* Crit Value Called To Er nurse infante Crit Value Called By Kayy rothman Crit Value Read Back Y Blood Gas Notified Time 2234 Sodium 145 146.0 Potassium 4.5 Chloride 100 100.0 Carbon Dioxide 21 L Anion Gap 29 H BUN 19 H Creatinine 1.7 H Est GFR ( Amer) 42 Est GFR (Non-Af Amer) 34 POC Glucose (mg/dL) Random Glucose 324 H Hemoglobin A1c Lactic Acid Calcium 9.2 Phosphorus Magnesium Total Bilirubin 0.9 AST 44 H ALT 65 H Alkaline Phosphatase 79 Total Protein 9.6 H Albumin 5.2 H Globulin 4.4 H Albumin/Globulin Ratio 1.2 Lipase 8456 H Beta HCG, Quant Venous Blood Potassium 3.9 Urine Color Urine Clarity Urine pH Ur Specific [place] Urine Protein Urine Glucose (UA) Urine Ketones Urine Blood Urine Nitrate Urine Bilirubin Urine Urobilinogen Ur Leukocyte Esterase Urine WBC (Auto) Urine RBC (Auto) Urine WBC Clumps (Auto) Ur Squamous Epith Cells Urine Bacteria Urine Yeast (Budding) Urine HCG, Qual Stool Occult Blood Blood Type Antibody Screen 03/27/17 03/28/17 03/28/17 23:16 01:05 01:35 WBC RBC Hgb Hct MCV MCH MCHC RDW Plt Count MPV Neut % (Auto) Lymph % (Auto) [place] % (Auto) Eos % (Auto) Baso % (Auto) Neut # Lymph # [place] # Eos # Baso # Neutrophils % (Manual) Band Neutrophils % Lymphocytes % (Manual) Monocytes % (Manual) Platelet Estimate RBC Morphology pO2 VBG pH VBG pCO2 VBG HCO3 VBG Total CO2 VBG O2 Sat (Calc) VBG Base Excess VBG Potassium Glucose Lactate Crit Value Called To Crit Value Called By Crit Value Read Back Blood Gas Notified Time Sodium Potassium Chloride Carbon Dioxide Anion Gap BUN Creatinine Est GFR ( Amer) Est GFR (Non-Af Amer) POC Glucose (mg/dL) Random Glucose Hemoglobin A1c Lactic Acid 9.2 H* Calcium Phosphorus Magnesium Total Bilirubin AST ALT Alkaline Phosphatase Total Protein Albumin Globulin Albumin/Globulin Ratio Lipase Beta HCG, Quant < 2.39 Venous Blood Potassium Urine Color Yellow Urine Clarity Hazy Urine pH 5.0 Ur Specific [place] > 1.060 H Urine Protein 3+ H Urine Glucose (UA) 1+ Urine Ketones Negative Urine Blood 1+ H Urine Nitrate Negative Urine Bilirubin Negative Urine Urobilinogen Normal Ur Leukocyte Esterase Neg Urine WBC (Auto) 20 H Urine RBC (Auto) 45 H Urine WBC Clumps (Auto) Mod H Ur Squamous Epith Cells 7 H Urine Bacteria Mod H Urine Yeast (Budding) Occ H Urine HCG, Qual Negative Stool Occult Blood Blood Type Antibody Screen 03/28/17 03/28/17 03/28/17 02:18 02:29 03:01 WBC RBC Hgb Hct MCV MCH MCHC RDW Plt Count MPV Neut % (Auto) Lymph % (Auto) [place] % (Auto) Eos % (Auto) Baso % (Auto) Neut # Lymph # [place] # Eos # Baso # Neutrophils % (Manual) Band Neutrophils % Lymphocytes % (Manual) Monocytes % (Manual) Platelet Estimate RBC Morphology pO2 VBG pH VBG pCO2 VBG HCO3 VBG Total CO2 VBG O2 Sat (Calc) VBG Base Excess VBG Potassium Glucose Lactate Crit Value Called To Crit Value Called By Crit Value Read Back Blood Gas Notified Time Sodium Potassium Chloride Carbon Dioxide Anion Gap BUN Creatinine Est GFR ( Amer) Est GFR (Non-Af Amer) POC Glucose (mg/dL) 125 H Random Glucose Hemoglobin A1c Lactic Acid Calcium Phosphorus Magnesium Total Bilirubin AST ALT Alkaline Phosphatase Total Protein Albumin Globulin Albumin/Globulin Ratio Lipase Beta HCG, Quant Venous Blood Potassium Urine Color Urine Clarity Urine pH Ur Specific [place] Urine Protein Urine Glucose (UA) Urine Ketones Urine Blood Urine Nitrate Urine Bilirubin Urine Urobilinogen Ur Leukocyte Esterase Urine WBC (Auto) Urine RBC (Auto) Urine WBC Clumps (Auto) Ur Squamous Epith Cells Urine Bacteria Urine Yeast (Budding) Urine HCG, Qual Stool Occult Blood Positive H Blood Type O POSITIVE Antibody Screen Negative 03/28/17 03/28/17 03/28/17 04:19 05:41 05:41 WBC 30.2 H RBC 4.61 Hgb 12.9 Hct 38.5 MCV 83.4 D MCH 28.0 MCHC 33.6 RDW 13.2 Plt Count 318 MPV 9.4 Neut % (Auto) 87.9 H Lymph % (Auto) 3.5 L [place] % (Auto) 8.3 Eos % (Auto) 0.0 Baso % (Auto) 0.3 Neut # 26.5 H Lymph # 1.1 [place] # 2.5 H Eos # 0.0 Baso # 0.1 Neutrophils % (Manual) 84 H Band Neutrophils % 5 H Lymphocytes % (Manual) 7 L Monocytes % (Manual) 4 Platelet Estimate Normal RBC Morphology Normal pO2 VBG pH VBG pCO2 VBG HCO3 VBG Total CO2 VBG O2 Sat (Calc) VBG Base Excess VBG Potassium Glucose Lactate Crit Value Called To Crit Value Called By Crit Value Read Back Blood Gas Notified Time Sodium 140 Potassium 3.7 Chloride 107 Carbon Dioxide 28 Anion Gap 8 L BUN 20 H Creatinine 1.4 H Est GFR ( Amer) 52 Est GFR (Non-Af Amer) 43 POC Glucose (mg/dL) 104 Random Glucose 155 H Hemoglobin A1c Lactic Acid Calcium 8.1 L Phosphorus 2.8 Magnesium 1.6 Total Bilirubin 0.5 AST 48 H ALT 65 H Alkaline Phosphatase 57 Total Protein 7.0 Albumin 3.3 L D Globulin 3.8 Albumin/Globulin Ratio 0.9 L Lipase Beta HCG, Quant Venous Blood Potassium Urine Color Urine Clarity Urine pH Ur Specific [place] Urine Protein Urine Glucose (UA) Urine Ketones Urine Blood Urine Nitrate Urine Bilirubin Urine Urobilinogen Ur Leukocyte Esterase Urine WBC (Auto) Urine RBC (Auto) Urine WBC Clumps (Auto) Ur Squamous Epith Cells Urine Bacteria Urine Yeast (Budding) Urine HCG, Qual Stool Occult Blood Blood Type Antibody Screen 03/28/17 03/28/17 05:41 06:15 WBC RBC Hgb Hct MCV MCH MCHC RDW Plt Count MPV Neut % (Auto) Lymph % (Auto) [place] % (Auto) Eos % (Auto) Baso % (Auto) Neut # Lymph # [place] # Eos # Baso # Neutrophils % (Manual) Band Neutrophils % Lymphocytes % (Manual) Monocytes % (Manual) Platelet Estimate RBC Morphology pO2 VBG pH VBG pCO2 VBG HCO3 VBG Total CO2 VBG O2 Sat (Calc) VBG Base Excess VBG Potassium Glucose Lactate Crit Value Called To Crit Value Called By Crit Value Read Back Blood Gas Notified Time Sodium Potassium Chloride Carbon Dioxide Anion Gap BUN Creatinine Est GFR ( Amer) Est GFR (Non-Af Amer) POC Glucose (mg/dL) Random Glucose Hemoglobin A1c 5.3 Lactic Acid 1.3 Calcium Phosphorus Magnesium Total Bilirubin AST ALT Alkaline Phosphatase Total Protein Albumin Globulin Albumin/Globulin Ratio Lipase Beta HCG, Quant Venous Blood Potassium Urine Color Urine Clarity Urine pH Ur Specific [place] Urine Protein Urine Glucose (UA) Urine Ketones Urine Blood Urine Nitrate Urine Bilirubin Urine Urobilinogen Ur Leukocyte Esterase Urine WBC (Auto) Urine RBC (Auto) Urine WBC Clumps (Auto) Ur Squamous Epith Cells Urine Bacteria Urine Yeast (Budding) Urine HCG, Qual Stool Occult Blood Blood Type Antibody Screen
[2017-03-28] MEDS: (Novolin R) Insulin Human Regular 100 units/ml vial SC SCH ×6 (02:30→21:16)
--- NOTE | 2017-03-28 02:54 | PCM.SEPTIC ---
Sepsis Progress Note - Reassessment Type Date of Evaluation: 03/28/17 Time of Evaluation: 02:20 Reassessment Type: Non-invasive reassessment - Non Invasive Reassessment Were the most recent vital sign reviewed: Yes Vital Sign (Latest): Temp Pulse Resp BP Pulse Ox 101.2 F H 140 H 20 123/79 98 03/28/17 01:31 03/28/17 01:24 03/28/17 01:24 03/28/17 01:24 03/28/17 02:12 Cardiovascular: Yes: Tachycardia Respiratory: Yes: Normal Breath Sounds Capillary Refill: Delayed Pulses: Normal Radial, Normal Dorsalis Pedis, Normal Posterior Tibialis Skin: Normal Color, Warm - Invasive Reassessment (complete 2 of 4) Was a Central Venous Pressure Measurement obtained within 6 Hours after the presentation of septic shock: No Was a central venous oxygen measurement obtained within 6 hours after the presentation of septic shock: No Was a bedside cardiovascular ultrasound performed within 6 hours after the presentation of septic shock: No Was a passive leg raise performed or was a fluid challenge performed within 6 hrs of the initial fluid bolus: Yes Fluid Challenge performed: Yes
[2017-03-28] MEDS: LACTATED RINGER S IV SCH ×2 (03:30→10:15)
[2017-03-28] MEDS: POTASSIUM CHLORIDE IV SCH ×2 (03:30→10:15)
[2017-03-28] MEDS: DEXTROSE IV SCH ×2 (03:30→10:15)
[2017-03-28] MEDS: Piperacill/Tazo 3.375gm in Dex 3.375 GM/50 ML BAG IVPB SCH ×3 (03:50→17:38)
[2017-03-28 05:49] LABS: BASO # 0.1 K/uL (0.0-0.2); BASO % 0.3 % (0.0-2.0); HEMOGLOBIN 12.9 g/dL (11.0-16.0); LYMPH # 1.1 K/uL (1.0-4.3); LYMPH % 3.5 % (20.0-40.0); MEAN CELL VOLUME 83.4 fL (81.0-99.0); MEAN CORPUSCULAR HGB CONC 33.6 g/dL (33.0-37.0); MEAN PLATELET VOLUME 9.4 fL (7.2-11.7); MONO # 2.5 K/uL (0.0-0.8); MONO % 8.3 % (0.0-10.0); NEUT # 26.5 K/uL (1.8-7.0); NEUT % 87.9 % (50.0-75.0); PLATELET COUNT 318 K/uL (130-400); RBC 4.61 Mil/uL (3.80-5.20); RED CELL DISTRIBUTION WIDTH 13.2 % (11.5-14.5); WHITE BLOOD COUNT 30.2 K/uL (4.8-10.8)
[2017-03-28 06:19] LABS: ALB/GLOB RATIO 0.9 (1.0-2.1); ALBUMIN 3.3 g/dL (3.5-5.0); CALCIUM 8.1 mg/dl (8.6-10.4)
[2017-03-28 08:21] LABS: BANDS 5 % (0-2); LYMPHOCYTE 7 % (20-40); MONOCYTE 4 % (0-10); NEUTROPHIL 84 % (50-75); TOTAL CELLS COUNTED 100
[2017-03-28 08:22] LABS: PLATELET ESTIMATE NORMAL (NORMAL)
[2017-03-28] MEDS: Sodium Chloride 0.9% 1,000 ML IV SCH ×5 (08:22→21:15)
--- NOTE | 2017-03-28 08:46 | CP.PCM.PN ---
Subjective - Date & Time of Evaluation Date of Evaluation: 03/28/17 Time of Evaluation: 08:53 - Subjective Subjective: Progress Note Patient seen and examined at bedside. Patient still has abdominal pain. Patient does not speak. Patient's sister at bedside. Central line consent signed for PICC line. Patient has NGT in place connected to suction. Objective - Vital Signs/Intake and Output Vital Signs (last 24 hours): Temp Pulse Resp BP Pulse Ox 98.9 F 142 H 45 H 119/84 98 03/28/17 05:00 03/28/17 08:30 03/28/17 08:30 03/28/17 07:53 03/28/17 08:30 Intake and Output: 03/28/17 03/28/17 06:59 18:59 Intake Total 2975 300 Output Total 2930 1070 Balance 45 -770 - Medications Medications: Current Medications Hydromorphone HCl (Dilaudid) 0.5 mg IVP Q6H PRN PRN Reason: Pain, severe (8-10) Metronidazole (Flagyl) 500 mg in 100 mls @ 100 mls/hr IVPB Q8 [facility] Last Admin: 03/28/17 05:00 Dose: 100 mls/hr Piperacillin Sod/Tazobactam Sod (Zosyn 3.375 Gm Iv Premix) 3.375 gm in 50 mls @ 100 mls/hr IVPB Q8H [facility] Last Admin: 03/28/17 03:50 Dose: 100 mls/hr Potassium Chloride 10 meq/ (Dextrose/Lactated Ringer's) 1,005 mls @ 150 mls/hr IV .Q6H42M [facility] Last Admin: 03/28/17 03:30 Dose: 150 mls/hr Sodium Chloride (Sodium Chloride 0.9%) 1,000 mls @ 250 mls/hr IV .Q4H [facility] Last Admin: 03/28/17 08:22 Dose: 250 mls/hr Insulin Human Regular (Novolin R) 0 unit SC Q4H [facility] PRN Reason: Protocol Last Admin: 03/28/17 05:16 Dose: Not Given Ondansetron HCl (Zofran Inj) 4 mg IVP Q6H PRN PRN Reason: Nausea/Vomiting Pantoprazole Sodium (Protonix Inj) 40 mg IVP DAILY [facility] Pneumococcal Polyvalent Vaccine (Pneumovax 23 Vaccine) 0.5 ml IM .ONCE ONE Stop: 03/30/17 10:01 - Labs Labs: 03/28/17 05:41 03/28/17 05:41 Assessment and Plan - Assessment and Plan (Free Text) Assessment: Plan Neuro: Pain: Dilaudid 0.5 mg Q6H PRN Cardio: 03/27 EKG Sinus tachycardia 138 bpm Pulm: 03/27 AB.22 03/27 CXR Endo: f/u A1c GI: 03/28 Lipase 8456 03/28 00:18 CT abdomen/pelvis with IV contrast: gastric distention 32cm and distention of the first and third and second portion of duodenum. Transition and complete decompression of third portion of duodenum. pancreas unremarkable, spleen unremarkable, partially contracted gallbladder. duodenal obstruction v delayed emptying v gastroparesis. Fluid distention of distal esophagus 3.3cm representing gastric emptying v gastroesophageal reflux. f/u 03/[address] abdomen/pelvis with IV contrast 03/28 FOBT positive 03/[address] connected to suction. 03/28 NGT OP since insertion: 2600cc f/u Strict I/Os General Surgery Consult: Dr. Woodruff Renal: 03/27 UA: proteinuria urine output since insertion 360 average hourly output 60cc/hr f/u Strict I/Os : 03/27 UA: proteinuria, yeast Heme: H/H: 03/27 14.6/44.7 03/28 12.9/38.5 MSK: Patient can walk per sister, but is dizzy so hasn't walked ID: Code sepsis 03/28 02:20 03/28 lactate 9.7 03/28 01:05 9.2 03/28 06:15 1.3 03/27 WBC 26.7 03/28 WBC 30.2 f/u AM CBC f/u blood Culture f/u MRSA screen f/u Urine Culture Flagyl 500mg IVPB Q8H Zosyn 3.375gm in 50cc IVPB Q8H Prophylaxis: DVT: Lovenox 50 mg SC GI: Protonix 40mg IVP QD Zofran 4mg IVP Q6H PRN Nausea Fluids: NS @ 250cc/hr 03/[address] line insertion by Dr. Nguyen
--- NOTE | 2017-03-28 09:03 | RAD ---
PROCEDURE: CHEST RADIOGRAPH, 1 VIEW HISTORY: Code Sepsis COMPARISON: None available. FINDINGS: LUNGS: There are low lung volumes. The lungs are clear. PLEURA: No pneumothorax or pleural fluid seen. CARDIOVASCULAR: Normal. OSSEOUS STRUCTURES: No significant abnormalities. VISUALIZED UPPER ABDOMEN: Normal. OTHER FINDINGS: There is gaseous distension of the stomach. IMPRESSION: Low lung volumes may be related to poor inspiratory effort. No acute findings.
--- NOTE | 2017-03-28 10:36 | RAD ---
HISTORY: PICC insertion COMPARISON: 03/27/2017. FINDINGS: The left PICC line terminates at the cavoatrial junction. The nasogastric tube terminates in the stomach. LUNGS: The lungs are clear. PLEURA: No significant pleural effusion identified, no pneumothorax apparent. CARDIOVASCULAR: Normal. OSSEOUS STRUCTURES: No significant abnormalities. VISUALIZED UPPER ABDOMEN: Normal. OTHER FINDINGS: There is severe gaseous distension of the stomach. IMPRESSION: Left PICC line terminates at the cavoatrial junction. Nasogastric tube terminates in the stomach. No acute findings.
--- NOTE | 2017-03-28 12:19 | CP.CCUPN ---
Addendum entered and electronically signed by Pari Smith DO 03/28/17 17:08: Sedation and Hx of Schizophrenia 1 mg Haldol IVP Q12H 0.5 mg Ativan Q8H PRN Addendum entered and electronically signed by Pari Smith DO 03/28/17 15:25: GI: Dr. Harmon consulted for EGD, evaluation of possible gastric obstruction Original Note: <Pari Smith - Last Filed: 03/28/17 12:38> CCU Subjective - Physician Review Subjective (Free Text): 03/28/17 12:16 Critical Care Progress note for Dr. Nguyen Patient seen and examined at bedside. Patient is non-verbal. Sister is at bedside, patient still has abdominal pain. Patient does not speak.. Central line consent signed for PICC line. Patient has NGT in place connected to suction. Critical Care Time Spent (in minutes): 35 CCU Objective - Vital Signs / Intake & Output Vital Signs (Last 4 hours): Vital Signs Temp Pulse Resp BP Pulse Ox 03/28/17 10:10 142 H 31 H 99 03/28/17 10:00 139 H 43 H 99 03/28/17 09:52 139 H 50 H 121/84 03/28/17 09:50 140 H 45 H 99 03/28/17 09:40 139 H 49 H 98 03/28/17 09:30 144 H 55 H 97 03/28/17 09:20 138 H 48 H 99 03/28/17 09:10 142 H 54 H 99 03/28/17 09:00 99.6 F 146 H 58 H 99 03/28/17 08:53 145 H 61 H 111/69 99 03/28/17 08:50 147 H 37 H 98 03/28/17 08:40 143 H 51 H 99 03/28/17 08:30 142 H 45 H 98 03/28/17 08:20 146 H 51 H 100 Intake and Output (Last 8hrs): Intake & Output 03/27/17 03/28/17 03/28/17 22:59 06:59 14:59 Intake Total 2975 950 Output Total 2930 1095 Balance 45 -145 Weight 140 lb 141 lb 6 oz Intake: IV 2000 Intake, IV Amount 975 950 Right Wrist 250 500 Right Wrist Y Port 725 450 Oral 0 Output: Gastric Amount 2600 900 Right Nares 900 Urine 330 195 Urethral (Tovar) 300 195 Other: # Bowel Movements 0 - Physical Exam Physical Exam Limitations: Positive for: Clinical Condition (Patient has schizophrenia) Head: Positive for: Atraumatic, Normocephalic. Negative for: Tenderness Pupils: Positive for: PERRL Extroacular Muscles: Positive for: EOMI Mouth: Positive for: Moist Mucous Membranes. Negative for: Dry, Drooling Nose (Internal): Positive for: Normal Inspection, Moist, Other (NGT in place) Neck: Positive for: Normal Range of Motion. Negative for: JVD, Lymphadenopathy Respiratory/Chest: Positive for: Clear to Auscultation. Negative for: Respiratory Distress, Accessory Muscle Use Cardiovascular: Positive for: Regular Rate and Rhythm, Normal S1, S2 Upper Extremity: Positive for: Normal Inspection, Normal ROM, Capillary Refill < 2s. Negative for: Edema Lower Extremity: Positive for: Normal Inspection. Negative for: Edema Neurological: Positive for: Other (patient does not speak). Negative for: Speech Normal Skin: Positive for: Warm, Pale Psychiatric: Positive for: Alert - Medications Active Medications: Active Medications Generic Name Dose Route Start Last Admin Trade Name Freq PRN Reason Stop Dose Admin Metronidazole 500 mg in 100 mls @ 100 mls/hr 03/27/17 23:45 03/28/17 05:00 Flagyl IVPB 100 mls/hr Q8 AGUSTIN Administration Piperacillin Sod/Tazobactam Sod 3.375 gm in 50 mls @ 100 mls/hr 03/28/17 02: 30 03/28/17 09:52 Zosyn 3.375 Gm Iv Premix IVPB 100 mls/hr Q8H AGUSTIN Administration Sodium Chloride 1,000 mls @ 250 mls/hr 03/28/17 08:15 03/28/17 08:22 Sodium Chloride 0.9% IV 250 mls/hr .Q4H AGUSTIN Administration Potassium Chloride 10 meq in 100 mls @ 100 mls/hr 03/28/17 11:15 03/28/17 11: 46 Potassium Chloride 10 Meq/100 Ml IVPB 03/28/17 14:14 100 mls/hr Q2H AGUSTIN Administration Insulin Human Regular 0 unit 03/28/17 00:45 03/28/17 08:58 Novolin R SC Not Given Q4H AGUSTIN Protocol Ondansetron HCl 4 mg 12/17/17 23:45 Zofran Inj IVP Q6H PRN Nausea/Vomiting Pantoprazole Sodium 40 mg 03/28/17 10:00 03/28/17 09:49 Protonix Inj IVP 40 mg DAILY [facility] Administration Pneumococcal Polyvalent Vaccine 0.5 ml 03/30/17 10:00 Pneumovax 23 Vaccine IM 03/30/17 10:01 .ONCE ONE - Patient Studies Lab Studies: Lab Studies 03/28/17 03/28/17 03/28/17 Range/Units 08:55 06:15 05:41 WBC (4.8-10.8) K/uL RBC (3.80-5.20) Mil/uL Hgb (11.0-16.0) g/dL Hct (34.0-47.0) % MCV (81.0-99.0) fL MCH (27.0-31.0) pg MCHC (33.0-37.0) g/dL RDW (11.5-14.5) % Plt Count (130-400) K/uL MPV (7.2-11.7) fL Neut % (Auto) (50.0-75.0) % Lymph % (Auto) (20.0-40.0) % [place] % (Auto) (0.0-10.0) % Eos % (Auto) (0.0-4.0) % Baso % (Auto) (0.0-2.0) % Neut # (1.8-7.0) K/uL Lymph # (1.0-4.3) K/uL [place] # (0.0-0.8) K/uL Eos # (0.0-0.7) K/uL Baso # (0.0-0.2) K/uL Neutrophils % (Manual) (50-75) % Band Neutrophils % (0-2) % Lymphocytes % (Manual) (20-40) % Monocytes % (Manual) (0-10) % Platelet Estimate (NORMAL) RBC Morphology pO2 (30-55) mm/Hg VBG pH (7.32-7.43) VBG pCO2 (40-60) mmHg VBG HCO3 mmol/L VBG Total CO2 (22-28) mmol/L VBG O2 Sat (Calc) (40-65) % VBG Base Excess (0.0-2.0) mmol/L VBG Potassium (3.6-5.2) mmol/L Glucose (65-105) mg/dl Lactate (0.7-2.1) mmol/L Crit Value Called To Crit Value Called By Crit Value Read Back Blood Gas Notified Time Sodium (132-148) mmol/L Potassium (3.6-5.2) mmol/L Chloride (98-107) mmol/L Carbon Dioxide (22-30) mmol/L Anion Gap (10-20) BUN (7-17) mg/dL Creatinine (0.7-1.2) mg/dL Est GFR ( Amer) Est GFR (Non-Af Amer) POC Glucose (mg/dL) 124 H (65-110) mg/dL Random Glucose (65-105) mg/dL Hemoglobin A1c 5.3 (4.2-6.5) % Lactic Acid 1.3 (0.7-2.1) mmol/L Calcium (8.6-10.4) mg/dl Phosphorus (2.5-4.5) mg/dL Magnesium (1.6-2.3) mg/dL Total Bilirubin (0.2-1.3) mg/dL AST (14-36) U/L ALT (9-52) U/L Alkaline Phosphatase (38-126) U/L Total Protein (6.3-8.3) g/dL Albumin (3.5-5.0) g/dL Globulin (2.2-3.9) gm/dL Albumin/Globulin Ratio (1.0-2.1) Lipase (23-300) U/L Beta HCG, Quant mIU/ML Venous Blood Potassium (3.6-5.2) mmol/L Urine Color (YELLOW) Urine Clarity (Clear) Urine pH (5.0-8.0) Ur Specific [place] (1.003-1.030) Urine Protein (NEGATIVE) mg/dL Urine Glucose (UA) (Normal) mg/dL Urine Ketones (NEGATIVE) mg/dL Urine Blood (NEGATIVE) Urine Nitrate (NEGATIVE) Urine Bilirubin (NEGATIVE) Urine Urobilinogen (0.2-1.0) mg/dL Ur Leukocyte Esterase (Negative) [place]/uL Urine WBC (Auto) (0-5) /hpf Urine RBC (Auto) (0-3) /hpf Urine WBC Clumps (Auto) (NONE) /hpf Ur Squamous Epith Cells (0-5) /hpf Urine Bacteria (<OCC) Urine Yeast (Budding) (NEGATIVE) /hpf Urine HCG, Qual (NEGATIVE) Stool Occult Blood (NEGATIVE) Blood Type Antibody Screen 03/28/17 03/28/17 03/28/17 Range/Units 05:41 05:41 04:19 WBC 30.2 H (4.8-10.8) K/uL RBC 4.61 (3.80-5.20) Mil/uL Hgb 12.9 (11.0-16.0) g/dL Hct 38.5 (34.0-47.0) % MCV 83.4 D (81.0-99.0) fL MCH 28.0 (27.0-31.0) pg MCHC 33.6 (33.0-37.0) g/dL RDW 13.2 (11.5-14.5) % Plt Count 318 (130-400) K/uL MPV 9.4 (7.2-11.7) fL Neut % (Auto) 87.9 H (50.0-75.0) % Lymph % (Auto) 3.5 L (20.0-40.0) % [place] % (Auto) 8.3 (0.0-10.0) % Eos % (Auto) 0.0 (0.0-4.0) % Baso % (Auto) 0.3 (0.0-2.0) % Neut # 26.5 H (1.8-7.0) K/uL Lymph # 1.1 (1.0-4.3) K/uL [place] # 2.5 H (0.0-0.8) K/uL Eos # 0.0 (0.0-0.7) K/uL Baso # 0.1 (0.0-0.2) K/uL Neutrophils % (Manual) 84 H (50-75) % Band Neutrophils % 5 H (0-2) % Lymphocytes % (Manual) 7 L (20-40) % Monocytes % (Manual) 4 (0-10) % Platelet Estimate Normal (NORMAL) RBC Morphology Normal pO2 (30-55) mm/Hg VBG pH (7.32-7.43) VBG pCO2 (40-60) mmHg VBG HCO3 mmol/L VBG Total CO2 (22-28) mmol/L VBG O2 Sat (Calc) (40-65) % VBG Base Excess (0.0-2.0) mmol/L VBG Potassium (3.6-5.2) mmol/L Glucose (65-105) mg/dl Lactate (0.7-2.1) mmol/L Crit Value Called To Crit Value Called By Crit Value Read Back Blood Gas Notified Time Sodium 140 (132-148) mmol/L Potassium 3.7 (3.6-5.2) mmol/L Chloride 107 (98-107) mmol/L Carbon Dioxide 28 (22-30) mmol/L Anion Gap 8 L (10-20) BUN 20 H (7-17) mg/dL Creatinine 1.4 H (0.7-1.2) mg/dL Est GFR ( Amer) 52 Est GFR (Non-Af Amer) 43 POC Glucose (mg/dL) 104 (65-110) mg/dL Random Glucose 155 H (65-105) mg/dL Hemoglobin A1c (4.2-6.5) % Lactic Acid (0.7-2.1) mmol/L Calcium 8.1 L (8.6-10.4) mg/dl Phosphorus 2.8 (2.5-4.5) mg/dL Magnesium 1.6 (1.6-2.3) mg/dL Total Bilirubin 0.5 (0.2-1.3) mg/dL AST 48 H (14-36) U/L ALT 65 H (9-52) U/L Alkaline Phosphatase 57 (38-126) U/L Total Protein 7.0 (6.3-8.3) g/dL Albumin 3.3 L D (3.5-5.0) g/dL Globulin 3.8 (2.2-3.9) gm/dL Albumin/Globulin Ratio 0.9 L (1.0-2.1) Lipase (23-300) U/L Beta HCG, Quant mIU/ML Venous Blood Potassium (3.6-5.2) mmol/L Urine Color (YELLOW) Urine Clarity (Clear) Urine pH (5.0-8.0) Ur Specific [place] (1.003-1.030) Urine Protein (NEGATIVE) mg/dL Urine Glucose (UA) (Normal) mg/dL Urine Ketones (NEGATIVE) mg/dL Urine Blood (NEGATIVE) Urine Nitrate (NEGATIVE) Urine Bilirubin (NEGATIVE) Urine Urobilinogen (0.2-1.0) mg/dL Ur Leukocyte Esterase (Negative) [place]/uL Urine WBC (Auto) (0-5) /hpf Urine RBC (Auto) (0-3) /hpf Urine WBC Clumps (Auto) (NONE) /hpf Ur Squamous Epith Cells (0-5) /hpf Urine Bacteria (<OCC) Urine Yeast (Budding) (NEGATIVE) /hpf Urine HCG, Qual (NEGATIVE) Stool Occult Blood (NEGATIVE) Blood Type Antibody Screen 03/28/17 03/28/17 03/28/17 Range/Units 03:01 02:29 02:18 WBC (4.8-10.8) K/uL RBC (3.80-5.20) Mil/uL Hgb (11.0-16.0) g/dL Hct (34.0-47.0) % MCV (81.0-99.0) fL MCH (27.0-31.0) pg MCHC (33.0-37.0) g/dL RDW (11.5-14.5) % Plt Count (130-400) K/uL MPV (7.2-11.7) fL Neut % (Auto) (50.0-75.0) % Lymph % (Auto) (20.0-40.0) % [place] % (Auto) (0.0-10.0) % Eos % (Auto) (0.0-4.0) % Baso % (Auto) (0.0-2.0) % Neut # (1.8-7.0) K/uL Lymph # (1.0-4.3) K/uL [place] # (0.0-0.8) K/uL Eos # (0.0-0.7) K/uL Baso # (0.0-0.2) K/uL Neutrophils % (Manual) (50-75) % Band Neutrophils % (0-2) % Lymphocytes % (Manual) (20-40) % Monocytes % (Manual) (0-10) % Platelet Estimate (NORMAL) RBC Morphology pO2 (30-55) mm/Hg VBG pH (7.32-7.43) VBG pCO2 (40-60) mmHg VBG HCO3 mmol/L VBG Total CO2 (22-28) mmol/L VBG O2 Sat (Calc) (40-65) % VBG Base Excess (0.0-2.0) mmol/L VBG Potassium (3.6-5.2) mmol/L Glucose (65-105) mg/dl Lactate (0.7-2.1) mmol/L Crit Value Called To Crit Value Called By Crit Value Read Back Blood Gas Notified Time Sodium (132-148) mmol/L Potassium (3.6-5.2) mmol/L Chloride (98-107) mmol/L Carbon Dioxide (22-30) mmol/L Anion Gap (10-20) BUN (7-17) mg/dL Creatinine (0.7-1.2) mg/dL Est GFR ( Amer) Est GFR (Non-Af Amer) POC Glucose (mg/dL) 125 H (65-110) mg/dL Random Glucose (65-105) mg/dL Hemoglobin A1c (4.2-6.5) % Lactic Acid (0.7-2.1) mmol/L Calcium (8.6-10.4) mg/dl Phosphorus (2.5-4.5) mg/dL Magnesium (1.6-2.3) mg/dL Total Bilirubin (0.2-1.3) mg/dL AST (14-36) U/L ALT (9-52) U/L Alkaline Phosphatase (38-126) U/L Total Protein (6.3-8.3) g/dL Albumin (3.5-5.0) g/dL Globulin (2.2-3.9) gm/dL Albumin/Globulin Ratio (1.0-2.1) Lipase (23-300) U/L Beta HCG, Quant mIU/ML Venous Blood Potassium (3.6-5.2) mmol/L Urine Color (YELLOW) Urine Clarity (Clear) Urine pH (5.0-8.0) Ur Specific [place] (1.003-1.030) Urine Protein (NEGATIVE) mg/dL Urine Glucose (UA) (Normal) mg/dL Urine Ketones (NEGATIVE) mg/dL Urine Blood (NEGATIVE) Urine Nitrate (NEGATIVE) Urine Bilirubin (NEGATIVE) Urine Urobilinogen (0.2-1.0) mg/dL Ur Leukocyte Esterase (Negative) [place]/uL Urine WBC (Auto) (0-5) /hpf Urine RBC (Auto) (0-3) /hpf Urine WBC Clumps (Auto) (NONE) /hpf Ur Squamous Epith Cells (0-5) /hpf Urine Bacteria (<OCC) Urine Yeast (Budding) (NEGATIVE) /hpf Urine HCG, Qual (NEGATIVE) Stool Occult Blood Positive H (NEGATIVE) Blood Type O POSITIVE Antibody Screen Negative 03/28/17 03/28/17 03/27/17 Range/Units 01:35 01:05 23:16 WBC (4.8-10.8) K/uL RBC (3.80-5.20) Mil/uL Hgb (11.0-16.0) g/dL Hct (34.0-47.0) % MCV (81.0-99.0) fL MCH (27.0-31.0) pg MCHC (33.0-37.0) g/dL RDW (11.5-14.5) % Plt Count (130-400) K/uL MPV (7.2-11.7) fL Neut % (Auto) (50.0-75.0) % Lymph % (Auto) (20.0-40.0) % [place] % (Auto) (0.0-10.0) % Eos % (Auto) (0.0-4.0) % Baso % (Auto) (0.0-2.0) % Neut # (1.8-7.0) K/uL Lymph # (1.0-4.3) K/uL [place] # (0.0-0.8) K/uL Eos # (0.0-0.7) K/uL Baso # (0.0-0.2) K/uL Neutrophils % (Manual) (50-75) % Band Neutrophils % (0-2) % Lymphocytes % (Manual) (20-40) % Monocytes % (Manual) (0-10) % Platelet Estimate (NORMAL) RBC Morphology pO2 (30-55) mm/Hg VBG pH (7.32-7.43) VBG pCO2 (40-60) mmHg VBG HCO3 mmol/L VBG Total CO2 (22-28) mmol/L VBG O2 Sat (Calc) (40-65) % VBG Base Excess (0.0-2.0) mmol/L VBG Potassium (3.6-5.2) mmol/L Glucose (65-105) mg/dl Lactate (0.7-2.1) mmol/L Crit Value Called To Crit Value Called By Crit Value Read Back Blood Gas Notified Time Sodium (132-148) mmol/L Potassium (3.6-5.2) mmol/L Chloride (98-107) mmol/L Carbon Dioxide (22-30) mmol/L Anion Gap (10-20) BUN (7-17) mg/dL Creatinine (0.7-1.2) mg/dL Est GFR ( Amer) Est GFR (Non-Af Amer) POC Glucose (mg/dL) (65-110) mg/dL Random Glucose (65-105) mg/dL Hemoglobin A1c (4.2-6.5) % Lactic Acid 9.2 H* (0.7-2.1) mmol/L Calcium (8.6-10.4) mg/dl Phosphorus (2.5-4.5) mg/dL Magnesium (1.6-2.3) mg/dL Total Bilirubin (0.2-1.3) mg/dL AST (14-36) U/L ALT (9-52) U/L Alkaline Phosphatase (38-126) U/L Total Protein (6.3-8.3) g/dL Albumin (3.5-5.0) g/dL Globulin (2.2-3.9) gm/dL Albumin/Globulin Ratio (1.0-2.1) Lipase (23-300) U/L Beta HCG, Quant < 2.39 mIU/ML Venous Blood Potassium (3.6-5.2) mmol/L Urine Color Yellow (YELLOW) Urine Clarity Hazy (Clear) Urine pH 5.0 (5.0-8.0) Ur Specific [place] > 1.060 H (1.003-1.030) Urine Protein 3+ H (NEGATIVE) mg/dL Urine Glucose (UA) 1+ (Normal) mg/dL Urine Ketones Negative (NEGATIVE) mg/dL Urine Blood 1+ H (NEGATIVE) Urine Nitrate Negative (NEGATIVE) Urine Bilirubin Negative (NEGATIVE) Urine Urobilinogen Normal (0.2-1.0) mg/dL Ur Leukocyte Esterase Neg (Negative) [place]/uL Urine WBC (Auto) 20 H (0-5) /hpf Urine RBC (Auto) 45 H (0-3) /hpf Urine WBC Clumps (Auto) Mod H (NONE) /hpf Ur Squamous Epith Cells 7 H (0-5) /hpf Urine Bacteria Mod H (<OCC) Urine Yeast (Budding) Occ H (NEGATIVE) /hpf Urine HCG, Qual Negative (NEGATIVE) Stool Occult Blood (NEGATIVE) Blood Type Antibody Screen 03/27/17 03/27/17 03/27/17 Range/Units 22:28 22:20 22:20 WBC 26.7 H (4.8-10.8) K/uL RBC 5.20 (3.80-5.20) Mil/uL Hgb 14.6 (11.0-16.0) g/dL Hct 44.7 (34.0-47.0) % MCV 85.9 (81.0-99.0) fL MCH 28.1 (27.0-31.0) pg MCHC 32.7 L (33.0-37.0) g/dL RDW 13.2 (11.5-14.5) % Plt Count 391 (130-400) K/uL MPV 9.7 (7.2-11.7) fL Neut % (Auto) 92.3 H (50.0-75.0) % Lymph % (Auto) 2.1 L (20.0-40.0) % [place] % (Auto) 5.3 (0.0-10.0) % Eos % (Auto) 0.0 (0.0-4.0) % Baso % (Auto) 0.3 (0.0-2.0) % Neut # 24.6 H (1.8-7.0) K/uL Lymph # 0.6 L (1.0-4.3) K/uL [place] # 1.4 H (0.0-0.8) K/uL Eos # 0.0 (0.0-0.7) K/uL Baso # 0.1 (0.0-0.2) K/uL Neutrophils % (Manual) 91 H (50-75) % Band Neutrophils % 2 (0-2) % Lymphocytes % (Manual) 3 L (20-40) % Monocytes % (Manual) 4 (0-10) % Platelet Estimate Normal (NORMAL) RBC Morphology Normal pO2 21 L (30-55) mm/Hg VBG pH 7.22 L (7.32-7.43) VBG pCO2 57 (40-60) mmHg VBG HCO3 18.9 mmol/L VBG Total CO2 25.0 (22-28) mmol/L VBG O2 Sat (Calc) 30.3 L (40-65) % VBG Base Excess -5.2 L (0.0-2.0) mmol/L VBG Potassium 3.9 (3.6-5.2) mmol/L Glucose 321 H (65-105) mg/dl Lactate 9.7 H* (0.7-2.1) mmol/L Crit Value Called To Er nurse infante Crit Value Called By Kayy rothman Crit Value Read Back Y Blood Gas Notified Time 2233 Sodium 146.0 145 (132-148) mmol/L Potassium 4.5 (3.6-5.2) mmol/L Chloride 100.0 100 (98-107) mmol/L Carbon Dioxide 21 L (22-30) mmol/L Anion Gap 29 H (10-20) BUN 19 H (7-17) mg/dL Creatinine 1.7 H (0.7-1.2) mg/dL Est GFR ( Amer) 42 Est GFR (Non-Af Amer) 34 POC Glucose (mg/dL) (65-110) mg/dL Random Glucose 324 H (65-105) mg/dL Hemoglobin A1c (4.2-6.5) % Lactic Acid (0.7-2.1) mmol/L Calcium 9.2 (8.6-10.4) mg/dl Phosphorus (2.5-4.5) mg/dL Magnesium (1.6-2.3) mg/dL Total Bilirubin 0.9 (0.2-1.3) mg/dL AST 44 H (14-36) U/L ALT 65 H (9-52) U/L Alkaline Phosphatase 79 (38-126) U/L Total Protein 9.6 H (6.3-8.3) g/dL Albumin 5.2 H (3.5-5.0) g/dL Globulin 4.4 H (2.2-3.9) gm/dL Albumin/Globulin Ratio 1.2 (1.0-2.1) Lipase 8456 H (23-300) U/L Beta HCG, Quant mIU/ML Venous Blood Potassium 3.9 (3.6-5.2) mmol/L Urine Color (YELLOW) Urine Clarity (Clear) Urine pH (5.0-8.0) Ur Specific [place] (1.003-1.030) Urine Protein (NEGATIVE) mg/dL Urine Glucose (UA) (Normal) mg/dL Urine Ketones (NEGATIVE) mg/dL Urine Blood (NEGATIVE) Urine Nitrate (NEGATIVE) Urine Bilirubin (NEGATIVE) Urine Urobilinogen (0.2-1.0) mg/dL Ur Leukocyte Esterase (Negative) [place]/uL Urine WBC (Auto) (0-5) /hpf Urine RBC (Auto) (0-3) /hpf Urine WBC Clumps (Auto) (NONE) /hpf Ur Squamous Epith Cells (0-5) /hpf Urine Bacteria (<OCC) Urine Yeast (Budding) (NEGATIVE) /hpf Urine HCG, Qual (NEGATIVE) Stool Occult Blood (NEGATIVE) Blood Type Antibody Screen Laboratory Results - last 24 hr 03/27/17 03/27/17 03/27/17 22:20 22:20 22:28 WBC 26.7 H RBC 5.20 Hgb 14.6 Hct 44.7 MCV 85.9 MCH 28.1 MCHC 32.7 L RDW 13.2 Plt Count 391 MPV 9.7 Neut % (Auto) 92.3 H Lymph % (Auto) 2.1 L [place] % (Auto) 5.3 Eos % (Auto) 0.0 Baso % (Auto) 0.3 Neut # 24.6 H Lymph # 0.6 L [place] # 1.4 H Eos # 0.0 Baso # 0.1 Neutrophils % (Manual) 91 H Band Neutrophils % 2 Lymphocytes % (Manual) 3 L Monocytes % (Manual) 4 Platelet Estimate Normal RBC Morphology Normal pO2 21 L VBG pH 7.22 L VBG pCO2 57 VBG HCO3 18.9 VBG Total CO2 25.0 VBG O2 Sat (Calc) 30.3 L VBG Base Excess -5.2 L VBG Potassium 3.9 Glucose 321 H Lactate 9.7 H* Crit Value Called To Er nurse arelis Crit Value Called By Kayy rothman Crit Value Read Back Y Blood Gas Notified Time 2234 Sodium 145 146.0 Potassium 4.5 Chloride 100 100.0 Carbon Dioxide 21 L Anion Gap 29 H BUN 19 H Creatinine 1.7 H Est GFR ( Amer) 42 Est GFR (Non-Af Amer) 34 POC Glucose (mg/dL) Random Glucose 324 H Hemoglobin A1c Lactic Acid Calcium 9.2 Phosphorus Magnesium Total Bilirubin 0.9 AST 44 H ALT 65 H Alkaline Phosphatase 79 Total Protein 9.6 H Albumin 5.2 H Globulin 4.4 H Albumin/Globulin Ratio 1.2 Lipase 8456 H Beta HCG, Quant Venous Blood Potassium 3.9 Urine Color Urine Clarity Urine pH Ur Specific [place] Urine Protein Urine Glucose (UA) Urine Ketones Urine Blood Urine Nitrate Urine Bilirubin Urine Urobilinogen Ur Leukocyte Esterase Urine WBC (Auto) Urine RBC (Auto) Urine WBC Clumps (Auto) Ur Squamous Epith Cells Urine Bacteria Urine Yeast (Budding) Urine HCG, Qual Stool Occult Blood Blood Type Antibody Screen 03/27/17 03/28/17 03/28/17 23:16 01:05 01:35 WBC RBC Hgb Hct MCV MCH MCHC RDW Plt Count MPV Neut % (Auto) Lymph % (Auto) [place] % (Auto) Eos % (Auto) Baso % (Auto) Neut # Lymph # [place] # Eos # Baso # Neutrophils % (Manual) Band Neutrophils % Lymphocytes % (Manual) Monocytes % (Manual) Platelet Estimate RBC Morphology pO2 VBG pH VBG pCO2 VBG HCO3 VBG Total CO2 VBG O2 Sat (Calc) VBG Base Excess VBG Potassium Glucose Lactate Crit Value Called To Crit Value Called By Crit Value Read Back Blood Gas Notified Time Sodium Potassium Chloride Carbon Dioxide Anion Gap BUN Creatinine Est GFR ( Amer) Est GFR (Non-Af Amer) POC Glucose (mg/dL) Random Glucose Hemoglobin A1c Lactic Acid 9.2 H* Calcium Phosphorus Magnesium Total Bilirubin AST ALT Alkaline Phosphatase Total Protein Albumin Globulin Albumin/Globulin Ratio Lipase Beta HCG, Quant < 2.39 Venous Blood Potassium Urine Color Yellow Urine Clarity Hazy Urine pH 5.0 Ur Specific [place] > 1.060 H Urine Protein 3+ H Urine Glucose (UA) 1+ Urine Ketones Negative Urine Blood 1+ H Urine Nitrate Negative Urine Bilirubin Negative Urine Urobilinogen Normal Ur Leukocyte Esterase Neg Urine WBC (Auto) 20 H Urine RBC (Auto) 45 H Urine WBC Clumps (Auto) Mod H Ur Squamous Epith Cells 7 H Urine Bacteria Mod H Urine Yeast (Budding) Occ H Urine HCG, Qual Negative Stool Occult Blood Blood Type Antibody Screen 03/28/17 03/28/17 03/28/17 02:18 02:29 03:01 WBC RBC Hgb Hct MCV MCH MCHC RDW Plt Count MPV Neut % (Auto) Lymph % (Auto) [place] % (Auto) Eos % (Auto) Baso % (Auto) Neut # Lymph # [place] # Eos # Baso # Neutrophils % (Manual) Band Neutrophils % Lymphocytes % (Manual) Monocytes % (Manual) Platelet Estimate RBC Morphology pO2 VBG pH VBG pCO2 VBG HCO3 VBG Total CO2 VBG O2 Sat (Calc) VBG Base Excess VBG Potassium Glucose Lactate Crit Value Called To Crit Value Called By Crit Value Read Back Blood Gas Notified Time Sodium Potassium Chloride Carbon Dioxide Anion Gap BUN Creatinine Est GFR ( Amer) Est GFR (Non-Af Amer) POC Glucose (mg/dL) 125 H Random Glucose Hemoglobin A1c Lactic Acid Calcium Phosphorus Magnesium Total Bilirubin AST ALT Alkaline Phosphatase Total Protein Albumin Globulin Albumin/Globulin Ratio Lipase Beta HCG, Quant Venous Blood Potassium Urine Color Urine Clarity Urine pH Ur Specific [place] Urine Protein Urine Glucose (UA) Urine Ketones Urine Blood Urine Nitrate Urine Bilirubin Urine Urobilinogen Ur Leukocyte Esterase Urine WBC (Auto) Urine RBC (Auto) Urine WBC Clumps (Auto) Ur Squamous Epith Cells Urine Bacteria Urine Yeast (Budding) Urine HCG, Qual Stool Occult Blood Positive H Blood Type O POSITIVE Antibody Screen Negative 03/28/17 03/28/17 03/28/17 04:19 05:41 05:41 WBC 30.2 H RBC 4.61 Hgb 12.9 Hct 38.5 MCV 83.4 D MCH 28.0 MCHC 33.6 RDW 13.2 Plt Count 318 MPV 9.4 Neut % (Auto) 87.9 H Lymph % (Auto) 3.5 L [place] % (Auto) 8.3 Eos % (Auto) 0.0 Baso % (Auto) 0.3 Neut # 26.5 H Lymph # 1.1 [place] # 2.5 H Eos # 0.0 Baso # 0.1 Neutrophils % (Manual) 84 H Band Neutrophils % 5 H Lymphocytes % (Manual) 7 L Monocytes % (Manual) 4 Platelet Estimate Normal RBC Morphology Normal pO2 VBG pH VBG pCO2 VBG HCO3 VBG Total CO2 VBG O2 Sat (Calc) VBG Base Excess VBG Potassium Glucose Lactate Crit Value Called To Crit Value Called By Crit Value Read Back Blood Gas Notified Time Sodium 140 Potassium 3.7 Chloride 107 Carbon Dioxide 28 Anion Gap 8 L BUN 20 H Creatinine 1.4 H Est GFR ( Amer) 52 Est GFR (Non-Af Amer) 43 POC Glucose (mg/dL) 104 Random Glucose 155 H Hemoglobin A1c Lactic Acid Calcium 8.1 L Phosphorus 2.8 Magnesium 1.6 Total Bilirubin 0.5 AST 48 H ALT 65 H Alkaline Phosphatase 57 Total Protein 7.0 Albumin 3.3 L D Globulin 3.8 Albumin/Globulin Ratio 0.9 L Lipase Beta HCG, Quant Venous Blood Potassium Urine Color Urine Clarity Urine pH Ur Specific [place] Urine Protein Urine Glucose (UA) Urine Ketones Urine Blood Urine Nitrate Urine Bilirubin Urine Urobilinogen Ur Leukocyte Esterase Urine WBC (Auto) Urine RBC (Auto) Urine WBC Clumps (Auto) Ur Squamous Epith Cells Urine Bacteria Urine Yeast (Budding) Urine HCG, Qual Stool Occult Blood Blood Type Antibody Screen 03/28/17 03/28/17 03/28/17 05:41 06:15 08:55 WBC RBC Hgb Hct MCV MCH MCHC RDW Plt Count MPV Neut % (Auto) Lymph % (Auto) [place] % (Auto) Eos % (Auto) Baso % (Auto) Neut # Lymph # [place] # Eos # Baso # Neutrophils % (Manual) Band Neutrophils % Lymphocytes % (Manual) Monocytes % (Manual) Platelet Estimate RBC Morphology pO2 VBG pH VBG pCO2 VBG HCO3 VBG Total CO2 VBG O2 Sat (Calc) VBG Base Excess VBG Potassium Glucose Lactate Crit Value Called To Crit Value Called By Crit Value Read Back Blood Gas Notified Time Sodium Potassium Chloride Carbon Dioxide Anion Gap BUN Creatinine Est GFR ( Amer) Est GFR (Non-Af Amer) POC Glucose (mg/dL) 124 H Random Glucose Hemoglobin A1c 5.3 Lactic Acid 1.3 Calcium Phosphorus Magnesium Total Bilirubin AST ALT Alkaline Phosphatase Total Protein Albumin Globulin Albumin/Globulin Ratio Lipase Beta HCG, Quant Venous Blood Potassium Urine Color Urine Clarity Urine pH Ur Specific [place] Urine Protein Urine Glucose (UA) Urine Ketones Urine Blood Urine Nitrate Urine Bilirubin Urine Urobilinogen Ur Leukocyte Esterase Urine WBC (Auto) Urine RBC (Auto) Urine WBC Clumps (Auto) Ur Squamous Epith Cells Urine Bacteria Urine Yeast (Budding) Urine HCG, Qual Stool Occult Blood Blood Type Antibody Screen EKG/Cardiology Studies: Cardiology / EKG Studies 03/27/17 22:41 EKG [ELECTROCARDIOGRAM] Stat Comment: Mode Of Transportation: BED Reason For Exam: cp Fingerstick Blood Sugar Results: 124 Review of Systems - EENT Eyes: As Per HPI Ears: As Per HPI Nose/Mouth/Throat: As Per HPI - Breasts Breasts: As Per HPI - Cardiovascular Cardiovascular: As Per HPI - Respiratory Respiratory: As Per HPI - Gastrointestinal Gastrointestinal: As Per HPI Critical Care Progress Note - Ventilator Checklist Head of Bed 30 Degrees: Yes Daily Sedation Vacation: No Daily Assessment of Readiness to Wean: No Daily Spontaneous Breathing Trial: No PUD Prophalyxis: No DVT Prophylaxis: No Oral Care with Chlorhexidine Gluconate {CHG}: No - Extremities/Vascular Does the Patient have a Central Venous Catheter?: Yes (Left PICC) Does the Patient have a Tovar Catheter?: No Does the Patient need a Tovar Catheter?: No - Nutrition Nutrition: Nutrition Category Date Time Status NPO Diet [DIET] Diets 03/27/17 Breakfast Active Assessment/Plan - Assessment and Plan (Free Text) Assessment: 36 y/o nonverbal female admitted with diarrhea,tachycardia,elevated WBC count , lipase and lactic acid. Plan Neuro: Pain: Dilaudid 0.5 mg Q6H PRN Cardio: 03/27 EKG Sinus tachycardia 138 bpm Pulm: 03/27 AB.22 03/27 CXR Endo: f/u A1c GI: 03/28 Lipase 8456 03/28 00:18 CT abdomen/pelvis with IV contrast: gastric distention 32cm and distention of the first and third and second portion of duodenum. Transition and complete decompression of third portion of duodenum. pancreas unremarkable, spleen unremarkable, partially contracted gallbladder. duodenal obstruction v delayed emptying v gastroparesis. Fluid distention of distal esophagus 3.3cm representing gastric emptying v gastroesophageal reflux. f/u 03/[address] abdomen/pelvis with IV contrast: significantly dilated stomach with retained food and fluid. significantly diminished prior to earlier CT 03/28. No free intraperitoneal gas identified. contrast noted in Gallbladder. 03/28 FOBT positive 03/[address] connected to suction. 03/28 NGT OP since insertion: 2600cc f/u Strict I/Os General Surgery Consult: Dr. Woodruff Renal: 03/27 UA: proteinuria urine output since insertion 360 average hourly output 60cc/hr f/u Strict I/Os : 03/27 UA: proteinuria, yeast Heme: H/H: 03/27 14.6/44.7 03/28 12.9/38.5 MSK: Patient can walk per sister, but is dizzy so hasn't walked ID: Code sepsis 03/28 02:20 03/28 lactate 9.7 03/28 01:05 9.2 03/28 06:15 1.3 03/27 WBC 26.7 03/28 WBC 30.2 f/u AM CBC f/u blood Culture f/u MRSA screen f/u Urine Culture Flagyl 500mg IVPB Q8H Zosyn 3.375gm in 50cc IVPB Q8H Prophylaxis: DVT: Lovenox 50 mg SC GI: Protonix 40mg IVP QD Zofran 4mg IVP Q6H PRN Nausea Fluids: NS @ 250cc/hr 03/28 PICC line insertion by Dr. Nguyen - Date & Time Date: 03/28/17 Time: 12:39 <Taty Nguyen - Last Filed: 03/28/17 19:10> CCU Objective - Vital Signs / Intake & Output Vital Signs (Last 4 hours): Vital Signs Temp Pulse Resp BP Pulse Ox 03/28/17 19:00 147 H 9 L 97 03/28/17 18:52 127 H 28 H 124/87 100 03/28/17 18:50 132 H 24 100 03/28/17 18:40 137 H 27 H 100 03/28/17 18:30 136 H 29 H 100 03/28/17 18:20 139 H 19 100 03/28/17 18:10 127 H 18 100 03/28/17 18:00 135 H 18 100 03/28/17 17:52 135 H 14 127/88 100 03/28/17 17:50 127 H 9 L 100 03/28/17 17:40 134 H 32 H 99 03/28/17 17:30 141 H 50 H 97 03/28/17 17:20 135 H 46 H 100 03/28/17 17:10 141 H 54 H 99 03/28/17 17:00 99.6 F 139 H 53 H 99 03/28/17 16:52 144 H 45 H 120/75 03/28/17 16:50 142 H 53 H 100 03/28/17 16:40 138 H 51 H 99 03/28/17 16:30 143 H 54 H 100 03/28/17 16:20 144 H 57 H 98 03/28/17 16:10 148 H 55 H 100 03/28/17 16:00 144 H 54 H 100 03/28/17 15:52 141 H 53 H 124/80 03/28/17 15:50 144 H 55 H 99 03/28/17 15:40 142 H 58 H 99 03/28/17 15:30 130 H 29 H 100 03/28/17 15:20 134 H 29 H 100 03/28/17 15:10 130 H 41 H 100 Intake and Output (Last 8hrs): Intake & Output 03/28/17 03/28/17 03/28/17 06:59 14:59 22:59 Intake Total 2975 2150 1650 Output Total 2930 2000 740 Balance 45 150 910 Weight 141 lb 6 oz Intake: IV 2000 Intake, IV Amount 975 2150 1650 Left Distal Port PICC 200 250 Left PICC 750 1400 Right Wrist 250 750 Right Wrist Y Port 725 450 Oral 0 0 Output: Gastric Amount 2600 1750 600 Right Nares 1750 600 Urine 330 250 140 Urethral (Tovar) 300 250 140 Other: # Bowel Movements 0 0 - Medications Active Medications: Active Medications Generic Name Dose Route Start Last Admin Trade Name Freq PRN Reason Stop Dose Admin Haloperidol Lactate 1 mg 03/28/17 18:00 03/28/17 17:17 Haldol IVP 1 mg BID AGUSTIN Administration Metronidazole 500 mg in 100 mls @ 100 mls/hr 03/27/17 23:45 03/28/17 14:06 Flagyl IVPB 100 mls/hr Q8 AGUSTIN Administration Piperacillin Sod/Tazobactam Sod 3.375 gm in 50 mls @ 100 mls/hr 03/28/17 02: 30 03/28/17 17:38 Zosyn 3.375 Gm Iv Premix IVPB 100 mls/hr Q8H AGUSTIN Administration Sodium Chloride 1,000 mls @ 300 mls/hr 03/28/17 17:05 03/28/17 17:15 Sodium Chloride 0.9% IV Not Given .Q3H20M AGUSTIN Insulin Human Regular 0 unit 03/28/17 00:45 03/28/17 16:48 Novolin R SC Not Given Q4H [facility] Protocol Lorazepam 0.5 mg 03/28/17 17:05 Ativan IVP Q8H PRN Anxiety Ondansetron HCl 4 mg 03/27/17 23:45 Zofran Inj IVP Q6H PRN Nausea/Vomiting Pantoprazole Sodium 40 mg 03/28/17 10:00 03/28/17 09:49 Protonix Inj IVP 40 mg DAILY AGUSTIN Administration Pneumococcal Polyvalent Vaccine 0.5 ml 03/30/17 10:00 Pneumovax 23 Vaccine IM 03/30/17 10:01 .ONCE ONE - Patient Studies Lab Studies: Lab Studies 03/28/17 03/28/17 03/28/17 Range/Units 16:47 14:55 14:55 WBC 24.8 H (4.8-10.8) K/uL RBC 4.59 (3.80-5.20) Mil/uL Hgb 12.9 (11.0-16.0) g/dL Hct 38.4 (34.0-47.0) % MCV 83.6 (81.0-99.0) fL MCH 28.0 (27.0-31.0) pg MCHC 33.5 (33.0-37.0) g/dL RDW 13.8 (11.5-14.5) % Plt Count 258 (130-400) K/uL MPV 9.0 (7.2-11.7) fL Neut % (Auto) 85.1 H (50.0-75.0) % Lymph % (Auto) 4.8 L (20.0-40.0) % [place] % (Auto) 9.8 (0.0-10.0) % Eos % (Auto) 0.0 (0.0-4.0) % Baso % (Auto) 0.3 (0.0-2.0) % Neut # 21.1 H (1.8-7.0) K/uL Lymph # 1.2 (1.0-4.3) K/uL [place] # 2.4 H (0.0-0.8) K/uL Eos # 0.0 (0.0-0.7) K/uL Baso # 0.1 (0.0-0.2) K/uL Neutrophils % (Manual) 89 H (50-75) % Band Neutrophils % (0-2) % Lymphocytes % (Manual) 3 L (20-40) % Monocytes % (Manual) 8 (0-10) % Platelet Estimate Normal (NORMAL) RBC Morphology Normal pO2 (30-55) mm/Hg VBG pH (7.32-7.43) VBG pCO2 (40-60) mmHg VBG HCO3 mmol/L VBG Total CO2 (22-28) mmol/L VBG O2 Sat (Calc) (40-65) % VBG Base Excess (0.0-2.0) mmol/L VBG Potassium (3.6-5.2) mmol/L Glucose (65-105) mg/dl Lactate (0.7-2.1) mmol/L Crit Value Called To Crit Value Called By Crit Value Read Back Blood Gas Notified Time Sodium (132-148) mmol/L Potassium (3.6-5.2) mmol/L Chloride (98-107) mmol/L Carbon Dioxide (22-30) mmol/L Anion Gap (10-20) BUN (7-17) mg/dL Creatinine (0.7-1.2) mg/dL Est GFR ( Amer) Est GFR (Non-Af Amer) POC Glucose (mg/dL) 110 (65-110) mg/dL Random Glucose (65-105) mg/dL Hemoglobin A1c (4.2-6.5) % Lactic Acid (0.7-2.1) mmol/L Calcium (8.6-10.4) mg/dl Phosphorus (2.5-4.5) mg/dL Magnesium (1.6-2.3) mg/dL Total Bilirubin (0.2-1.3) mg/dL AST (14-36) U/L ALT (9-52) U/L Alkaline Phosphatase (38-126) U/L Total Protein (6.3-8.3) g/dL Albumin (3.5-5.0) g/dL Globulin (2.2-3.9) gm/dL Albumin/Globulin Ratio (1.0-2.1) Lipase (23-300) U/L Carcinoembryonic Ag 1.0 (0-3.0) ng/mL CA 19-9 Antigen 5.1 (0-37) U/mL CA 125 Antigen 9.0 (0-35) U/mL Beta HCG, Quant mIU/ML Venous Blood Potassium (3.6-5.2) mmol/L Urine Color (YELLOW) Urine Clarity (Clear) Urine pH (5.0-8.0) Ur Specific [place] (1.003-1.030) Urine Protein (NEGATIVE) mg/dL Urine Glucose (UA) (Normal) mg/dL Urine Ketones (NEGATIVE) mg/dL Urine Blood (NEGATIVE) Urine Nitrate (NEGATIVE) Urine Bilirubin (NEGATIVE) Urine Urobilinogen (0.2-1.0) mg/dL Ur Leukocyte Esterase (Negative) [place]/uL Urine WBC (Auto) (0-5) /hpf Urine RBC (Auto) (0-3) /hpf Urine WBC Clumps (Auto) (NONE) /hpf Ur Squamous Epith Cells (0-5) /hpf Urine Bacteria (<OCC) Urine Yeast (Budding) (NEGATIVE) /hpf Urine HCG, Qual (NEGATIVE) Stool Occult Blood (NEGATIVE) Blood Type Antibody Screen 03/28/17 03/28/17 03/28/17 Range/Units 14:55 12:32 08:55 WBC (4.8-10.8) K/uL RBC (3.80-5.20) Mil/uL Hgb (11.0-16.0) g/dL Hct (34.0-47.0) % MCV (81.0-99.0) fL MCH (27.0-31.0) pg MCHC (33.0-37.0) g/dL RDW (11.5-14.5) % Plt Count (130-400) K/uL MPV (7.2-11.7) fL Neut % (Auto) (50.0-75.0) % Lymph % (Auto) (20.0-40.0) % [place] % (Auto) (0.0-10.0) % Eos % (Auto) (0.0-4.0) % Baso % (Auto) (0.0-2.0) % Neut # (1.8-7.0) K/uL Lymph # (1.0-4.3) K/uL [place] # (0.0-0.8) K/uL Eos # (0.0-0.7) K/uL Baso # (0.0-0.2) K/uL Neutrophils % (Manual) (50-75) % Band Neutrophils % (0-2) % Lymphocytes % (Manual) (20-40) % Monocytes % (Manual) (0-10) % Platelet Estimate (NORMAL) RBC Morphology pO2 (30-55) mm/Hg VBG pH (7.32-7.43) VBG pCO2 (40-60) mmHg VBG HCO3 mmol/L VBG Total CO2 (22-28) mmol/L VBG O2 Sat (Calc) (40-65) % VBG Base Excess (0.0-2.0) mmol/L VBG Potassium (3.6-5.2) mmol/L Glucose (65-105) mg/dl Lactate (0.7-2.1) mmol/L Crit Value Called To Crit Value Called By Crit Value Read Back Blood Gas Notified Time Sodium 141 (132-148) mmol/L Potassium 4.1 (3.6-5.2) mmol/L Chloride 110 H (98-107) mmol/L Carbon Dioxide 25 (22-30) mmol/L Anion Gap 10 (10-20) BUN 21 H (7-17) mg/dL Creatinine 1.3 H (0.7-1.2) mg/dL Est GFR ( Amer) 57 Est GFR (Non-Af Amer) 47 POC Glucose (mg/dL) 130 H 124 H (65-110) mg/dL Random Glucose 110 H (65-105) mg/dL Hemoglobin A1c (4.2-6.5) % Lactic Acid (0.7-2.1) mmol/L Calcium 7.4 L (8.6-10.4) mg/dl Phosphorus 3.0 (2.5-4.5) mg/dL Magnesium 1.5 L (1.6-2.3) mg/dL Total Bilirubin 0.8 (0.2-1.3) mg/dL AST 51 H (14-36) U/L ALT 56 H (9-52) U/L Alkaline Phosphatase 46 (38-126) U/L Total Protein 5.2 L (6.3-8.3) g/dL Albumin 2.8 L (3.5-5.0) g/dL Globulin 2.3 (2.2-3.9) gm/dL Albumin/Globulin Ratio 1.2 (1.0-2.1) Lipase (23-300) U/L Carcinoembryonic Ag (0-3.0) ng/mL CA 19-9 Antigen (0-37) U/mL CA 125 Antigen (0-35) U/mL Beta HCG, Quant mIU/ML Venous Blood Potassium (3.6-5.2) mmol/L Urine Color (YELLOW) Urine Clarity (Clear) Urine pH (5.0-8.0) Ur Specific [place] (1.003-1.030) Urine Protein (NEGATIVE) mg/dL Urine Glucose (UA) (Normal) mg/dL Urine Ketones (NEGATIVE) mg/dL Urine Blood (NEGATIVE) Urine Nitrate (NEGATIVE) Urine Bilirubin (NEGATIVE) Urine Urobilinogen (0.2-1.0) mg/dL Ur Leukocyte Esterase (Negative) [place]/uL Urine WBC (Auto) (0-5) /hpf Urine RBC (Auto) (0-3) /hpf Urine WBC Clumps (Auto) (NONE) /hpf Ur Squamous Epith Cells (0-5) /hpf Urine Bacteria (<OCC) Urine Yeast (Budding) (NEGATIVE) /hpf Urine HCG, Qual (NEGATIVE) Stool Occult Blood (NEGATIVE) Blood Type Antibody Screen 03/28/17 03/28/17 03/28/17 Range/Units 06:15 05:41 05:41 WBC (4.8-10.8) K/uL RBC (3.80-5.20) Mil/uL Hgb (11.0-16.0) g/dL Hct (34.0-47.0) % MCV (81.0-99.0) fL MCH (27.0-31.0) pg MCHC (33.0-37.0) g/dL RDW (11.5-14.5) % Plt Count (130-400) K/uL MPV (7.2-11.7) fL Neut % (Auto) (50.0-75.0) % Lymph % (Auto) (20.0-40.0) % [place] % (Auto) (0.0-10.0) % Eos % (Auto) (0.0-4.0) % Baso % (Auto) (0.0-2.0) % Neut # (1.8-7.0) K/uL Lymph # (1.0-4.3) K/uL [place] # (0.0-0.8) K/uL Eos # (0.0-0.7) K/uL Baso # (0.0-0.2) K/uL Neutrophils % (Manual) (50-75) % Band Neutrophils % (0-2) % Lymphocytes % (Manual) (20-40) % Monocytes % (Manual) (0-10) % Platelet Estimate (NORMAL) RBC Morphology pO2 (30-55) mm/Hg VBG pH (7.32-7.43) VBG pCO2 (40-60) mmHg VBG HCO3 mmol/L VBG Total CO2 (22-28) mmol/L VBG O2 Sat (Calc) (40-65) % VBG Base Excess (0.0-2.0) mmol/L VBG Potassium (3.6-5.2) mmol/L Glucose (65-105) mg/dl Lactate (0.7-2.1) mmol/L Crit Value Called To Crit Value Called By Crit Value Read Back Blood Gas Notified Time Sodium 140 (132-148) mmol/L Potassium 3.7 (3.6-5.2) mmol/L Chloride 107 (98-107) mmol/L Carbon Dioxide 28 (22-30) mmol/L Anion Gap 8 L (10-20) BUN 20 H (7-17) mg/dL Creatinine 1.4 H (0.7-1.2) mg/dL Est GFR ( Amer) 52 Est GFR (Non-Af Amer) 43 POC Glucose (mg/dL) (65-110) mg/dL Random Glucose 155 H (65-105) mg/dL Hemoglobin A1c 5.3 (4.2-6.5) % Lactic Acid 1.3 (0.7-2.1) mmol/L Calcium 8.1 L (8.6-10.4) mg/dl Phosphorus 2.8 (2.5-4.5) mg/dL Magnesium 1.6 (1.6-2.3) mg/dL Total Bilirubin 0.5 (0.2-1.3) mg/dL AST 48 H (14-36) U/L ALT 65 H (9-52) U/L Alkaline Phosphatase 57 (38-126) U/L Total Protein 7.0 (6.3-8.3) g/dL Albumin 3.3 L D (3.5-5.0) g/dL Globulin 3.8 (2.2-3.9) gm/dL Albumin/Globulin Ratio 0.9 L (1.0-2.1) Lipase (23-300) U/L Carcinoembryonic Ag (0-3.0) ng/mL CA 19-9 Antigen (0-37) U/mL CA 125 Antigen (0-35) U/mL Beta HCG, Quant mIU/ML Venous Blood Potassium (3.6-5.2) mmol/L Urine Color (YELLOW) Urine Clarity (Clear) Urine pH (5.0-8.0) Ur Specific [place] (1.003-1.030) Urine Protein (NEGATIVE) mg/dL Urine Glucose (UA) (Normal) mg/dL Urine Ketones (NEGATIVE) mg/dL Urine Blood (NEGATIVE) Urine Nitrate (NEGATIVE) Urine Bilirubin (NEGATIVE) Urine Urobilinogen (0.2-1.0) mg/dL Ur Leukocyte Esterase (Negative) [place]/uL Urine WBC (Auto) (0-5) /hpf Urine RBC (Auto) (0-3) /hpf Urine WBC Clumps (Auto) (NONE) /hpf Ur Squamous Epith Cells (0-5) /hpf Urine Bacteria (<OCC) Urine Yeast (Budding) (NEGATIVE) /hpf Urine HCG, Qual (NEGATIVE) Stool Occult Blood (NEGATIVE) Blood Type Antibody Screen 03/28/17 03/28/17 03/28/17 Range/Units 05:41 04:19 03:01 WBC 30.2 H (4.8-10.8) K/uL RBC 4.61 (3.80-5.20) Mil/uL Hgb 12.9 (11.0-16.0) g/dL Hct 38.5 (34.0-47.0) % MCV 83.4 D (81.0-99.0) fL MCH 28.0 (27.0-31.0) pg MCHC 33.6 (33.0-37.0) g/dL RDW 13.2 (11.5-14.5) % Plt Count 318 (130-400) K/uL MPV 9.4 (7.2-11.7) fL Neut % (Auto) 87.9 H (50.0-75.0) % Lymph % (Auto) 3.5 L (20.0-40.0) % [place] % (Auto) 8.3 (0.0-10.0) % Eos % (Auto) 0.0 (0.0-4.0) % Baso % (Auto) 0.3 (0.0-2.0) % Neut # 26.5 H (1.8-7.0) K/uL Lymph # 1.1 (1.0-4.3) K/uL [place] # 2.5 H (0.0-0.8) K/uL Eos # 0.0 (0.0-0.7) K/uL Baso # 0.1 (0.0-0.2) K/uL Neutrophils % (Manual) 84 H (50-75) % Band Neutrophils % 5 H (0-2) % Lymphocytes % (Manual) 7 L (20-40) % Monocytes % (Manual) 4 (0-10) % Platelet Estimate Normal (NORMAL) RBC Morphology Normal pO2 (30-55) mm/Hg VBG pH (7.32-7.43) VBG pCO2 (40-60) mmHg VBG HCO3 mmol/L VBG Total CO2 (22-28) mmol/L VBG O2 Sat (Calc) (40-65) % VBG Base Excess (0.0-2.0) mmol/L VBG Potassium (3.6-5.2) mmol/L Glucose (65-105) mg/dl Lactate (0.7-2.1) mmol/L Crit Value Called To Crit Value Called By Crit Value Read Back Blood Gas Notified Time Sodium (132-148) mmol/L Potassium (3.6-5.2) mmol/L Chloride (98-107) mmol/L Carbon Dioxide (22-30) mmol/L Anion Gap (10-20) BUN (7-17) mg/dL Creatinine (0.7-1.2) mg/dL Est GFR ( Amer) Est GFR (Non-Af Amer) POC Glucose (mg/dL) 104 (65-110) mg/dL Random Glucose (65-105) mg/dL Hemoglobin A1c (4.2-6.5) % Lactic Acid (0.7-2.1) mmol/L Calcium (8.6-10.4) mg/dl Phosphorus (2.5-4.5) mg/dL Magnesium (1.6-2.3) mg/dL Total Bilirubin (0.2-1.3) mg/dL AST (14-36) U/L ALT (9-52) U/L Alkaline Phosphatase (38-126) U/L Total Protein (6.3-8.3) g/dL Albumin (3.5-5.0) g/dL Globulin (2.2-3.9) gm/dL Albumin/Globulin Ratio (1.0-2.1) Lipase (23-300) U/L Carcinoembryonic Ag (0-3.0) ng/mL CA 19-9 Antigen (0-37) U/mL CA 125 Antigen (0-35) U/mL Beta HCG, Quant mIU/ML Venous Blood Potassium (3.6-5.2) mmol/L Urine Color (YELLOW) Urine Clarity (Clear) Urine pH (5.0-8.0) Ur Specific [place] (1.003-1.030) Urine Protein (NEGATIVE) mg/dL Urine Glucose (UA) (Normal) mg/dL Urine Ketones (NEGATIVE) mg/dL Urine Blood (NEGATIVE) Urine Nitrate (NEGATIVE) Urine Bilirubin (NEGATIVE) Urine Urobilinogen (0.2-1.0) mg/dL Ur Leukocyte Esterase (Negative) [place]/uL Urine WBC (Auto) (0-5) /hpf Urine RBC (Auto) (0-3) /hpf Urine WBC Clumps (Auto) (NONE) /hpf Ur Squamous Epith Cells (0-5) /hpf Urine Bacteria (<OCC) Urine Yeast (Budding) (NEGATIVE) /hpf Urine HCG, Qual (NEGATIVE) Stool Occult Blood (NEGATIVE) Blood Type O POSITIVE Antibody Screen Negative 03/28/17 03/28/17 03/28/17 Range/Units 02:29 02:18 01:35 WBC (4.8-10.8) K/uL RBC (3.80-5.20) Mil/uL Hgb (11.0-16.0) g/dL Hct (34.0-47.0) % MCV (81.0-99.0) fL MCH (27.0-31.0) pg MCHC (33.0-37.0) g/dL RDW (11.5-14.5) % Plt Count (130-400) K/uL MPV (7.2-11.7) fL Neut % (Auto) (50.0-75.0) % Lymph % (Auto) (20.0-40.0) % [place] % (Auto) (0.0-10.0) % Eos % (Auto) (0.0-4.0) % Baso % (Auto) (0.0-2.0) % Neut # (1.8-7.0) K/uL Lymph # (1.0-4.3) K/uL [place] # (0.0-0.8) K/uL Eos # (0.0-0.7) K/uL Baso # (0.0-0.2) K/uL Neutrophils % (Manual) (50-75) % Band Neutrophils % (0-2) % Lymphocytes % (Manual) (20-40) % Monocytes % (Manual) (0-10) % Platelet Estimate (NORMAL) RBC Morphology pO2 (30-55) mm/Hg VBG pH (7.32-7.43) VBG pCO2 (40-60) mmHg VBG HCO3 mmol/L VBG Total CO2 (22-28) mmol/L VBG O2 Sat (Calc) (40-65) % VBG Base Excess (0.0-2.0) mmol/L VBG Potassium (3.6-5.2) mmol/L Glucose (65-105) mg/dl Lactate (0.7-2.1) mmol/L Crit Value Called To Crit Value Called By Crit Value Read Back Blood Gas Notified Time Sodium (132-148) mmol/L Potassium (3.6-5.2) mmol/L Chloride (98-107) mmol/L Carbon Dioxide (22-30) mmol/L Anion Gap (10-20) BUN (7-17) mg/dL Creatinine (0.7-1.2) mg/dL Est GFR ( Amer) Est GFR (Non-Af Amer) POC Glucose (mg/dL) 125 H (65-110) mg/dL Random Glucose (65-105) mg/dL Hemoglobin A1c (4.2-6.5) % Lactic Acid (0.7-2.1) mmol/L Calcium (8.6-10.4) mg/dl Phosphorus (2.5-4.5) mg/dL Magnesium (1.6-2.3) mg/dL Total Bilirubin (0.2-1.3) mg/dL AST (14-36) U/L ALT (9-52) U/L Alkaline Phosphatase (38-126) U/L Total Protein (6.3-8.3) g/dL Albumin (3.5-5.0) g/dL Globulin (2.2-3.9) gm/dL Albumin/Globulin Ratio (1.0-2.1) Lipase (23-300) U/L Carcinoembryonic Ag (0-3.0) ng/mL CA 19-9 Antigen (0-37) U/mL CA 125 Antigen (0-35) U/mL Beta HCG, Quant mIU/ML Venous Blood Potassium (3.6-5.2) mmol/L Urine Color Yellow (YELLOW) Urine Clarity Hazy (Clear) Urine pH 5.0 (5.0-8.0) Ur Specific [place] > 1.060 H (1.003-1.030) Urine Protein 3+ H (NEGATIVE) mg/dL Urine Glucose (UA) 1+ (Normal) mg/dL Urine Ketones Negative (NEGATIVE) mg/dL Urine Blood 1+ H (NEGATIVE) Urine Nitrate Negative (NEGATIVE) Urine Bilirubin Negative (NEGATIVE) Urine Urobilinogen Normal (0.2-1.0) mg/dL Ur Leukocyte Esterase Neg (Negative) [place]/uL Urine WBC (Auto) 20 H (0-5) /hpf Urine RBC (Auto) 45 H (0-3) /hpf Urine WBC Clumps (Auto) Mod H (NONE) /hpf Ur Squamous Epith Cells 7 H (0-5) /hpf Urine Bacteria Mod H (<OCC) Urine Yeast (Budding) Occ H (NEGATIVE) /hpf Urine HCG, Qual Negative (NEGATIVE) Stool Occult Blood Positive H (NEGATIVE) Blood Type Antibody Screen 03/28/17 03/27/17 03/27/17 Range/Units 01:05 23:16 22:28 WBC (4.8-10.8) K/uL RBC (3.80-5.20) Mil/uL Hgb (11.0-16.0) g/dL Hct (34.0-47.0) % MCV (81.0-99.0) fL MCH (27.0-31.0) pg MCHC (33.0-37.0) g/dL RDW (11.5-14.5) % Plt Count (130-400) K/uL MPV (7.2-11.7) fL Neut % (Auto) (50.0-75.0) % Lymph % (Auto) (20.0-40.0) % [place] % (Auto) (0.0-10.0) % Eos % (Auto) (0.0-4.0) % Baso % (Auto) (0.0-2.0) % Neut # (1.8-7.0) K/uL Lymph # (1.0-4.3) K/uL [place] # (0.0-0.8) K/uL Eos # (0.0-0.7) K/uL Baso # (0.0-0.2) K/uL Neutrophils % (Manual) (50-75) % Band Neutrophils % (0-2) % Lymphocytes % (Manual) (20-40) % Monocytes % (Manual) (0-10) % Platelet Estimate (NORMAL) RBC Morphology pO2 21 L (30-55) mm/Hg VBG pH 7.22 L (7.32-7.43) VBG pCO2 57 (40-60) mmHg VBG HCO3 18.9 mmol/L VBG Total CO2 25.0 (22-28) mmol/L VBG O2 Sat (Calc) 30.3 L (40-65) % VBG Base Excess -5.2 L (0.0-2.0) mmol/L VBG Potassium 3.9 (3.6-5.2) mmol/L Glucose 321 H (65-105) mg/dl Lactate 9.7 H* (0.7-2.1) mmol/L Crit Value Called To Er nurse infante Crit Value Called By Kayy rothman Crit Value Read Back Y Blood Gas Notified Time 2233 Sodium 146.0 (132-148) mmol/L Potassium (3.6-5.2) mmol/L Chloride 100.0 (98-107) mmol/L Carbon Dioxide (22-30) mmol/L Anion Gap (10-20) BUN (7-17) mg/dL Creatinine (0.7-1.2) mg/dL Est GFR ( Amer) Est GFR (Non-Af Amer) POC Glucose (mg/dL) (65-110) mg/dL Random Glucose (65-105) mg/dL Hemoglobin A1c (4.2-6.5) % Lactic Acid 9.2 H* (0.7-2.1) mmol/L Calcium (8.6-10.4) mg/dl Phosphorus (2.5-4.5) mg/dL Magnesium (1.6-2.3) mg/dL Total Bilirubin (0.2-1.3) mg/dL AST (14-36) U/L ALT (9-52) U/L Alkaline Phosphatase (38-126) U/L Total Protein (6.3-8.3) g/dL Albumin (3.5-5.0) g/dL Globulin (2.2-3.9) gm/dL Albumin/Globulin Ratio (1.0-2.1) Lipase (23-300) U/L Carcinoembryonic Ag (0-3.0) ng/mL CA 19-9 Antigen (0-37) U/mL CA 125 Antigen (0-35) U/mL Beta HCG, Quant < 2.39 mIU/ML Venous Blood Potassium 3.9 (3.6-5.2) mmol/L Urine Color (YELLOW) Urine Clarity (Clear) Urine pH (5.0-8.0) Ur Specific [place] (1.003-1.030) Urine Protein (NEGATIVE) mg/dL Urine Glucose (UA) (Normal) mg/dL Urine Ketones (NEGATIVE) mg/dL Urine Blood (NEGATIVE) Urine Nitrate (NEGATIVE) Urine Bilirubin (NEGATIVE) Urine Urobilinogen (0.2-1.0) mg/dL Ur Leukocyte Esterase (Negative) [place]/uL Urine WBC (Auto) (0-5) /hpf Urine RBC (Auto) (0-3) /hpf Urine WBC Clumps (Auto) (NONE) /hpf Ur Squamous Epith Cells (0-5) /hpf Urine Bacteria (<OCC) Urine Yeast (Budding) (NEGATIVE) /hpf Urine HCG, Qual (NEGATIVE) Stool Occult Blood (NEGATIVE) Blood Type Antibody Screen 03/27/17 03/27/17 Range/Units 22:20 22:20 WBC 26.7 H (4.8-10.8) K/uL RBC 5.20 (3.80-5.20) Mil/uL Hgb 14.6 (11.0-16.0) g/dL Hct 44.7 (34.0-47.0) % MCV 85.9 (81.0-99.0) fL MCH 28.1 (27.0-31.0) pg MCHC 32.7 L (33.0-37.0) g/dL RDW 13.2 (11.5-14.5) % Plt Count 391 (130-400) K/uL MPV 9.7 (7.2-11.7) fL Neut % (Auto) 92.3 H (50.0-75.0) % Lymph % (Auto) 2.1 L (20.0-40.0) % [place] % (Auto) 5.3 (0.0-10.0) % Eos % (Auto) 0.0 (0.0-4.0) % Baso % (Auto) 0.3 (0.0-2.0) % Neut # 24.6 H (1.8-7.0) K/uL Lymph # 0.6 L (1.0-4.3) K/uL [place] # 1.4 H (0.0-0.8) K/uL Eos # 0.0 (0.0-0.7) K/uL Baso # 0.1 (0.0-0.2) K/uL Neutrophils % (Manual) 91 H (50-75) % Band Neutrophils % 2 (0-2) % Lymphocytes % (Manual) 3 L (20-40) % Monocytes % (Manual) 4 (0-10) % Platelet Estimate Normal (NORMAL) RBC Morphology Normal pO2 (30-55) mm/Hg VBG pH (7.32-7.43) VBG pCO2 (40-60) mmHg VBG HCO3 mmol/L VBG Total CO2 (22-28) mmol/L VBG O2 Sat (Calc) (40-65) % VBG Base Excess (0.0-2.0) mmol/L VBG Potassium (3.6-5.2) mmol/L Glucose (65-105) mg/dl Lactate (0.7-2.1) mmol/L Crit Value Called To Crit Value Called By Crit Value Read Back Blood Gas Notified Time Sodium 145 (132-148) mmol/L Potassium 4.5 (3.6-5.2) mmol/L Chloride 100 (98-107) mmol/L Carbon Dioxide 21 L (22-30) mmol/L Anion Gap 29 H (10-20) BUN 19 H (7-17) mg/dL Creatinine 1.7 H (0.7-1.2) mg/dL Est GFR ( Amer) 42 Est GFR (Non-Af Amer) 34 POC Glucose (mg/dL) (65-110) mg/dL Random Glucose 324 H (65-105) mg/dL Hemoglobin A1c (4.2-6.5) % Lactic Acid (0.7-2.1) mmol/L Calcium 9.2 (8.6-10.4) mg/dl Phosphorus (2.5-4.5) mg/dL Magnesium (1.6-2.3) mg/dL Total Bilirubin 0.9 (0.2-1.3) mg/dL AST 44 H (14-36) U/L ALT 65 H (9-52) U/L Alkaline Phosphatase 79 (38-126) U/L Total Protein 9.6 H (6.3-8.3) g/dL Albumin 5.2 H (3.5-5.0) g/dL Globulin 4.4 H (2.2-3.9) gm/dL Albumin/Globulin Ratio 1.2 (1.0-2.1) Lipase 8456 H (23-300) U/L Carcinoembryonic Ag (0-3.0) ng/mL CA 19-9 Antigen (0-37) U/mL CA 125 Antigen (0-35) U/mL Beta HCG, Quant mIU/ML Venous Blood Potassium (3.6-5.2) mmol/L Urine Color (YELLOW) Urine Clarity (Clear) Urine pH (5.0-8.0) Ur Specific [place] (1.003-1.030) Urine Protein (NEGATIVE) mg/dL Urine Glucose (UA) (Normal) mg/dL Urine Ketones (NEGATIVE) mg/dL Urine Blood (NEGATIVE) Urine Nitrate (NEGATIVE) Urine Bilirubin (NEGATIVE) Urine Urobilinogen (0.2-1.0) mg/dL Ur Leukocyte Esterase (Negative) [place]/uL Urine WBC (Auto) (0-5) /hpf Urine RBC (Auto) (0-3) /hpf Urine WBC Clumps (Auto) (NONE) /hpf Ur Squamous Epith Cells (0-5) /hpf Urine Bacteria (<OCC) Urine Yeast (Budding) (NEGATIVE) /hpf Urine HCG, Qual (NEGATIVE) Stool Occult Blood (NEGATIVE) Blood Type Antibody Screen Laboratory Results - last 24 hr 03/27/17 03/27/17 03/27/17 22:20 22:20 22:28 WBC 26.7 H RBC 5.20 Hgb 14.6 Hct 44.7 MCV 85.9 MCH 28.1 MCHC 32.7 L RDW 13.2 Plt Count 391 MPV 9.7 Neut % (Auto) 92.3 H Lymph % (Auto) 2.1 L [place] % (Auto) 5.3 Eos % (Auto) 0.0 Baso % (Auto) 0.3 Neut # 24.6 H Lymph # 0.6 L [place] # 1.4 H Eos # 0.0 Baso # 0.1 Neutrophils % (Manual) 91 H Band Neutrophils % 2 Lymphocytes % (Manual) 3 L Monocytes % (Manual) 4 Platelet Estimate Normal RBC Morphology Normal pO2 21 L VBG pH 7.22 L VBG pCO2 57 VBG HCO3 18.9 VBG Total CO2 25.0 VBG O2 Sat (Calc) 30.3 L VBG Base Excess -5.2 L VBG Potassium 3.9 Glucose 321 H Lactate 9.7 H* Crit Value Called To Er nurse infante Crit Value Called By Kayy rt Crit Value Read Back Y Blood Gas Notified Time 2234 Sodium 145 146.0 Potassium 4.5 Chloride 100 100.0 Carbon Dioxide 21 L Anion Gap 29 H BUN 19 H Creatinine 1.7 H Est GFR ( Amer) 42 Est GFR (Non-Af Amer) 34 POC Glucose (mg/dL) Random Glucose 324 H Hemoglobin A1c Lactic Acid Calcium 9.2 Phosphorus Magnesium Total Bilirubin 0.9 AST 44 H ALT 65 H Alkaline Phosphatase 79 Total Protein 9.6 H Albumin 5.2 H Globulin 4.4 H Albumin/Globulin Ratio 1.2 Lipase 8456 H Carcinoembryonic Ag CA 19-9 Antigen CA 125 Antigen Beta HCG, Quant Venous Blood Potassium 3.9 Urine Color Urine Clarity Urine pH Ur Specific [place] Urine Protein Urine Glucose (UA) Urine Ketones Urine Blood Urine Nitrate Urine Bilirubin Urine Urobilinogen Ur Leukocyte Esterase Urine WBC (Auto) Urine RBC (Auto) Urine WBC Clumps (Auto) Ur Squamous Epith Cells Urine Bacteria Urine Yeast (Budding) Urine HCG, Qual Stool Occult Blood Blood Type Antibody Screen 03/27/17 03/28/17 03/28/17 23:16 01:05 01:35 WBC RBC Hgb Hct MCV MCH MCHC RDW Plt Count MPV Neut % (Auto) Lymph % (Auto) [place] % (Auto) Eos % (Auto) Baso % (Auto) Neut # Lymph # [place] # Eos # Baso # Neutrophils % (Manual) Band Neutrophils % Lymphocytes % (Manual) Monocytes % (Manual) Platelet Estimate RBC Morphology pO2 VBG pH VBG pCO2 VBG HCO3 VBG Total CO2 VBG O2 Sat (Calc) VBG Base Excess VBG Potassium Glucose Lactate Crit Value Called To Crit Value Called By Crit Value Read Back Blood Gas Notified Time Sodium Potassium Chloride Carbon Dioxide Anion Gap BUN Creatinine Est GFR ( Amer) Est GFR (Non-Af Amer) POC Glucose (mg/dL) Random Glucose Hemoglobin A1c Lactic Acid 9.2 H* Calcium Phosphorus Magnesium Total Bilirubin AST ALT Alkaline Phosphatase Total Protein Albumin Globulin Albumin/Globulin Ratio Lipase Carcinoembryonic Ag CA 19-9 Antigen CA 125 Antigen Beta HCG, Quant < 2.39 Venous Blood Potassium Urine Color Yellow Urine Clarity Hazy Urine pH 5.0 Ur Specific [place] > 1.060 H Urine Protein 3+ H Urine Glucose (UA) 1+ Urine Ketones Negative Urine Blood 1+ H Urine Nitrate Negative Urine Bilirubin Negative Urine Urobilinogen Normal Ur Leukocyte Esterase Neg Urine WBC (Auto) 20 H Urine RBC (Auto) 45 H Urine WBC Clumps (Auto) Mod H Ur Squamous Epith Cells 7 H Urine Bacteria Mod H Urine Yeast (Budding) Occ H Urine HCG, Qual Negative Stool Occult Blood Blood Type Antibody Screen 03/28/17 03/28/17 03/28/17 02:18 02:29 03:01 WBC RBC Hgb Hct MCV MCH MCHC RDW Plt Count MPV Neut % (Auto) Lymph % (Auto) [place] % (Auto) Eos % (Auto) Baso % (Auto) Neut # Lymph # [place] # Eos # Baso # Neutrophils % (Manual) Band Neutrophils % Lymphocytes % (Manual) Monocytes % (Manual) Platelet Estimate RBC Morphology pO2 VBG pH VBG pCO2 VBG HCO3 VBG Total CO2 VBG O2 Sat (Calc) VBG Base Excess VBG Potassium Glucose Lactate Crit Value Called To Crit Value Called By Crit Value Read Back Blood Gas Notified Time Sodium Potassium Chloride Carbon Dioxide Anion Gap BUN Creatinine Est GFR ( Amer) Est GFR (Non-Af Amer) POC Glucose (mg/dL) 125 H Random Glucose Hemoglobin A1c Lactic Acid Calcium Phosphorus Magnesium Total Bilirubin AST ALT Alkaline Phosphatase Total Protein Albumin Globulin Albumin/Globulin Ratio Lipase Carcinoembryonic Ag CA 19-9 Antigen CA 125 Antigen Beta HCG, Quant Venous Blood Potassium Urine Color Urine Clarity Urine pH Ur Specific [place] Urine Protein Urine Glucose (UA) Urine Ketones Urine Blood Urine Nitrate Urine Bilirubin Urine Urobilinogen Ur Leukocyte Esterase Urine WBC (Auto) Urine RBC (Auto) Urine WBC Clumps (Auto) Ur Squamous Epith Cells Urine Bacteria Urine Yeast (Budding) Urine HCG, Qual Stool Occult Blood Positive H Blood Type O POSITIVE Antibody Screen Negative 03/28/17 03/28/17 03/28/17 04:19 05:41 05:41 WBC 30.2 H RBC 4.61 Hgb 12.9 Hct 38.5 MCV 83.4 D MCH 28.0 MCHC 33.6 RDW 13.2 Plt Count 318 MPV 9.4 Neut % (Auto) 87.9 H Lymph % (Auto) 3.5 L [place] % (Auto) 8.3 Eos % (Auto) 0.0 Baso % (Auto) 0.3 Neut # 26.5 H Lymph # 1.1 [place] # 2.5 H Eos # 0.0 Baso # 0.1 Neutrophils % (Manual) 84 H Band Neutrophils % 5 H Lymphocytes % (Manual) 7 L Monocytes % (Manual) 4 Platelet Estimate Normal RBC Morphology Normal pO2 VBG pH VBG pCO2 VBG HCO3 VBG Total CO2 VBG O2 Sat (Calc) VBG Base Excess VBG Potassium Glucose Lactate Crit Value Called To Crit Value Called By Crit Value Read Back Blood Gas Notified Time Sodium 140 Potassium 3.7 Chloride 107 Carbon Dioxide 28 Anion Gap 8 L BUN 20 H Creatinine 1.4 H Est GFR ( Amer) 52 Est GFR (Non-Af Amer) 43 POC Glucose (mg/dL) 104 Random Glucose 155 H Hemoglobin A1c Lactic Acid Calcium 8.1 L Phosphorus 2.8 Magnesium 1.6 Total Bilirubin 0.5 AST 48 H ALT 65 H Alkaline Phosphatase 57 Total Protein 7.0 Albumin 3.3 L D Globulin 3.8 Albumin/Globulin Ratio 0.9 L Lipase Carcinoembryonic Ag CA 19-9 Antigen CA 125 Antigen Beta HCG, Quant Venous Blood Potassium Urine Color Urine Clarity Urine pH Ur Specific [place] Urine Protein Urine Glucose (UA) Urine Ketones Urine Blood Urine Nitrate Urine Bilirubin Urine Urobilinogen Ur Leukocyte Esterase Urine WBC (Auto) Urine RBC (Auto) Urine WBC Clumps (Auto) Ur Squamous Epith Cells Urine Bacteria Urine Yeast (Budding) Urine HCG, Qual Stool Occult Blood Blood Type Antibody Screen 03/28/17 03/28/17 03/28/17 05:41 06:15 08:55 WBC RBC Hgb Hct MCV MCH MCHC RDW Plt Count MPV Neut % (Auto) Lymph % (Auto) [place] % (Auto) Eos % (Auto) Baso % (Auto) Neut # Lymph # [place] # Eos # Baso # Neutrophils % (Manual) Band Neutrophils % Lymphocytes % (Manual) Monocytes % (Manual) Platelet Estimate RBC Morphology pO2 VBG pH VBG pCO2 VBG HCO3 VBG Total CO2 VBG O2 Sat (Calc) VBG Base Excess VBG Potassium Glucose Lactate Crit Value Called To Crit Value Called By Crit Value Read Back Blood Gas Notified Time Sodium Potassium Chloride Carbon Dioxide Anion Gap BUN Creatinine Est GFR ( Amer) Est GFR (Non-Af Amer) POC Glucose (mg/dL) 124 H Random Glucose Hemoglobin A1c 5.3 Lactic Acid 1.3 Calcium Phosphorus Magnesium Total Bilirubin AST ALT Alkaline Phosphatase Total Protein Albumin Globulin Albumin/Globulin Ratio Lipase Carcinoembryonic Ag CA 19-9 Antigen CA 125 Antigen Beta HCG, Quant Venous Blood Potassium Urine Color Urine Clarity Urine pH Ur Specific [place] Urine Protein Urine Glucose (UA) Urine Ketones Urine Blood Urine Nitrate Urine Bilirubin Urine Urobilinogen Ur Leukocyte Esterase Urine WBC (Auto) Urine RBC (Auto) Urine WBC Clumps (Auto) Ur Squamous Epith Cells Urine Bacteria Urine Yeast (Budding) Urine HCG, Qual Stool Occult Blood Blood Type Antibody Screen 03/28/17 03/28/17 03/28/17 12:32 14:55 14:55 WBC 24.8 H RBC 4.59 Hgb 12.9 Hct 38.4 MCV 83.6 MCH 28.0 MCHC 33.5 RDW 13.8 Plt Count 258 MPV 9.0 Neut % (Auto) 85.1 H Lymph % (Auto) 4.8 L [place] % (Auto) 9.8 Eos % (Auto) 0.0 Baso % (Auto) 0.3 Neut # 21.1 H Lymph # 1.2 [place] # 2.4 H Eos # 0.0 Baso # 0.1 Neutrophils % (Manual) 89 H Band Neutrophils % Lymphocytes % (Manual) 3 L Monocytes % (Manual) 8 Platelet Estimate Normal RBC Morphology Normal pO2 VBG pH VBG pCO2 VBG HCO3 VBG Total CO2 VBG O2 Sat (Calc) VBG Base Excess VBG Potassium Glucose Lactate Crit Value Called To Crit Value Called By Crit Value Read Back Blood Gas Notified Time Sodium 141 Potassium 4.1 Chloride 110 H Carbon Dioxide 25 Anion Gap 10 BUN 21 H Creatinine 1.3 H Est GFR ( Amer) 57 Est GFR (Non-Af Amer) 47 POC Glucose (mg/dL) 130 H Random Glucose 110 H Hemoglobin A1c Lactic Acid Calcium 7.4 L Phosphorus 3.0 Magnesium 1.5 L Total Bilirubin 0.8 AST 51 H ALT 56 H Alkaline Phosphatase 46 Total Protein 5.2 L Albumin 2.8 L Globulin 2.3 Albumin/Globulin Ratio 1.2 Lipase Carcinoembryonic Ag CA 19-9 Antigen CA 125 Antigen Beta HCG, Quant Venous Blood Potassium Urine Color Urine Clarity Urine pH Ur Specific [place] Urine Protein Urine Glucose (UA) Urine Ketones Urine Blood Urine Nitrate Urine Bilirubin Urine Urobilinogen Ur Leukocyte Esterase Urine WBC (Auto) Urine RBC (Auto) Urine WBC Clumps (Auto) Ur Squamous Epith Cells Urine Bacteria Urine Yeast (Budding) Urine HCG, Qual Stool Occult Blood Blood Type Antibody Screen 03/28/17 03/28/17 14:55 16:47 WBC RBC Hgb Hct MCV MCH MCHC RDW Plt Count MPV Neut % (Auto) Lymph % (Auto) [place] % (Auto) Eos % (Auto) Baso % (Auto) Neut # Lymph # [place] # Eos # Baso # Neutrophils % (Manual) Band Neutrophils % Lymphocytes % (Manual) Monocytes % (Manual) Platelet Estimate RBC Morphology pO2 VBG pH VBG pCO2 VBG HCO3 VBG Total CO2 VBG O2 Sat (Calc) VBG Base Excess VBG Potassium Glucose Lactate Crit Value Called To Crit Value Called By Crit Value Read Back Blood Gas Notified Time Sodium Potassium Chloride Carbon Dioxide Anion Gap BUN Creatinine Est GFR ( Amer) Est GFR (Non-Af Amer) POC Glucose (mg/dL) 110 Random Glucose Hemoglobin A1c Lactic Acid Calcium Phosphorus Magnesium Total Bilirubin AST ALT Alkaline Phosphatase Total Protein Albumin Globulin Albumin/Globulin Ratio Lipase Carcinoembryonic Ag 1.0 CA 19-9 Antigen 5.1 CA 125 Antigen 9.0 Beta HCG, Quant Venous Blood Potassium Urine Color Urine Clarity Urine pH Ur Specific [place] Urine Protein Urine Glucose (UA) Urine Ketones Urine Blood Urine Nitrate Urine Bilirubin Urine Urobilinogen Ur Leukocyte Esterase Urine WBC (Auto) Urine RBC (Auto) Urine WBC Clumps (Auto) Ur Squamous Epith Cells Urine Bacteria Urine Yeast (Budding) Urine HCG, Qual Stool Occult Blood Blood Type Antibody Screen EKG/Cardiology Studies: Cardiology / EKG Studies 03/27/17 22:41 EKG [ELECTROCARDIOGRAM] Stat Comment: Mode Of Transportation: BED Reason For Exam: cp Critical Care Progress Note - Nutrition Nutrition: Nutrition Category Date Time Status NPO Diet [DIET] Diets 03/28/17 Dinner Active Attending/Attestation - Attestation I have personally seen and examined this patient.: Yes I have fully participated in the care of the patient.: Yes I have reviewed all pertinent clinical information: Yes Notes (Text): 03/28/17 19:07 pt with severe gastric outlet obstruction having high out put improving gi eval
--- NOTE | 2017-03-28 12:35 | CT ---
PROCEDURE: CT Abdomen and Pelvis without intravenous contrast HISTORY: gastric distension, peritoneal COMPARISON: None. TECHNIQUE: Technique. Contrast Dose: Radiation dose: Total exam DLP = mGy-cm. This CT exam was performed using one or more of the following dose reduction techniques: Automated exposure control, adjustment of the mA and/or kV according to patient size, and/or use of iterative reconstruction technique. FINDINGS: The lack of contrast agents limits the interpretation in the abdomen. LOWER THORAX: Interval small pleural effusions now identified exerting mental compression atelectasis at the left lower lobe the nasogastric tube placed terminating at the gastric fundus. Right central venous line identified terminating at the right heart. LIVER: Unremarkable. No gross lesion or ductal dilatation. GALLBLADDER AND BILE DUCTS: Vicarious excretion of iodinated contrast material is identified within a mildly distended gallbladder. PANCREAS: Stable SPLEEN: Stable ADRENALS: Stable KIDNEYS AND URETERS: Stable VASCULATURE: Stable BOWEL: Gross gastric distension has diminished significantly with nasogastric tube now in position, terminating at the mid inferior antrum. Proximal bowel now appears collapsed. Remaining bowel is stable. APPENDIX: Not identified. PERITONEUM: Mild pelvic ascites has developed with trace fluid in the bilateral pericolic gutters, perihepatic and perisplenic spaces. LYMPH NODES: Stable BLADDER: Tovar catheter decompresses the urinary bladder with trace excreted iodinated contrast material in the lumen. REPRODUCTIVE: Stable. BONES: No acute fracture. OTHER FINDINGS: None. IMPRESSION: The stomach remains significantly dilated with retained food and fluid however it is significantly diminished in size in the interval compared to prior CT earlier today 03/28/2017, status post nasogastric tube placement currently noted as per above. Clinical and radiographic follow-up are advised. No free intraperitoneal gas identified. Vicarious excretion of iodinated contrast material in the gallbladder. Limited interval ascites as per above.
--- NOTE | 2017-03-28 12:54 | CP.PCM.PCO ---
Physician Communication Note - Physician Communication Note Physician Communication Note: recc GI consult - pt may have gastric ulcer - req. EGD evaluation
--- NOTE | 2017-03-28 14:03 | RAD ---
Abdomen two views History: Distention. Comparison: None available. Findings: Orogastric tube extending into the stomach. Gastric distention of the stomach. Dilated loops of small bowel in the right upper abdomen. Relative paucity of colonic bowel gas. Contrast seen within the urinary bladder. Degenerative changes in the spine. Impression: Orogastric tube extending into the stomach. Additional findings as above.
[2017-03-28 14:58] LABS: BASO # 0.1 K/uL (0.0-0.2); BASO % 0.3 % (0.0-2.0); HEMOGLOBIN 12.9 g/dL (11.0-16.0); LYMPH # 1.2 K/uL (1.0-4.3); LYMPH % 4.8 % (20.0-40.0); MEAN CELL VOLUME 83.6 fL (81.0-99.0); MEAN CORPUSCULAR HGB CONC 33.5 g/dL (33.0-37.0); MONO # 2.4 K/uL (0.0-0.8); MONO % 9.8 % (0.0-10.0); NEUT # 21.1 K/uL (1.8-7.0); NEUT % 85.1 % (50.0-75.0); PLATELET COUNT 258 K/uL (130-400); RBC 4.59 Mil/uL (3.80-5.20); RED CELL DISTRIBUTION WIDTH 13.8 % (11.5-14.5); WHITE BLOOD COUNT 24.8 K/uL (4.8-10.8)
[2017-03-28 15:16] LABS: ALB/GLOB RATIO 1.2 (1.0-2.1); ALBUMIN 2.8 g/dL (3.5-5.0); CALCIUM 7.4 mg/dl (8.6-10.4)
[2017-03-28 15:41] LABS: LYMPHOCYTE 3 % (20-40); MONOCYTE 8 % (0-10); NEUTROPHIL 89 % (50-75); PLATELET ESTIMATE NORMAL (NORMAL); TOTAL CELLS COUNTED 100
[2017-03-28] MEDS ORDERED: Magnesium Sulfate 1 gm in D5W 1 GM/100 ML BAG IVPB ONE (15:42)
--- NOTE | 2017-03-28 22:12 | CARD ---
APPROVED REPORT EKG Measurement Heart [id number] HI [id number] <Conclusion> Sinus tachycardia Possible Anterior infarct, age undetermined Abnormal ECG
[2017-03-29] MEDS: Sodium Chloride 0.9% 1,000 ML IV SCH (01:06)
[2017-03-29 01:42] LABS: VENOUS BLOOD GAS BASE EXCESS -2.6 mmol/L (0.0-2.0); VENOUS BLOOD GAS PCO2 36 mmHg (40-60); VENOUS BLOOD GAS PO2 37 mm/Hg (30-55); VENOUS BLOOD PH 7.39 (7.32-7.43)
[2017-03-29] MEDS ORDERED: Sodium Bicarbonate (8.4%) 50 Meq Syringe IVP ONE (02:01)
--- NOTE | 2017-03-29 02:05 | CP.PCM.PN ---
Subjective - Date & Time of Evaluation Date of Evaluation: 03/29/17 Time of Evaluation: 02:02 - Subjective Subjective: HR corresponds to RR, VBG ph 7.39 despite RR 35-60/min, patient on exam not tender, to suggest increased RR, DD of anxiety related to being in ICU, currently afibrile. Will change fluid to LR from NS which will allow the ph to be maintained due to buffer, also single dose if sodium bicarb to r/o increased RR from metabolic acidosis. Objective - Vital Signs/Intake and Output Vital Signs (last 24 hours): Temp Pulse Resp BP Pulse Ox 100.6 F H 140 H 30 H 124/58 L 98 03/28/17 20:00 03/28/17 23:00 03/28/17 23:00 03/28/17 23:53 03/28/17 23:00 Intake and Output: 03/28/17 03/29/17 18:59 06:59 Intake Total 3500 1600 Output Total 2695 310 Balance 805 1290 - Medications Medications: Current Medications Haloperidol Lactate (Haldol) 1 mg IVP BID [facility] Last Admin: 03/28/17 17:17 Dose: 1 mg Metronidazole (Flagyl) 500 mg in 100 mls @ 100 mls/hr IVPB Q8 [facility] Last Admin: 03/28/17 21:17 Dose: 100 mls/hr Piperacillin Sod/Tazobactam Sod (Zosyn 3.375 Gm Iv Premix) 3.375 gm in 50 mls @ 100 mls/hr IVPB Q8H [facility] Last Admin: 03/28/17 17:38 Dose: 100 mls/hr Lorazepam (Ativan) 0.5 mg IVP Q8H PRN PRN Reason: Anxiety Last Admin: 03/28/17 21:21 Dose: 0.5 mg Ondansetron HCl (Zofran Inj) 4 mg IVP Q6H PRN PRN Reason: Nausea/Vomiting Pantoprazole Sodium (Protonix Inj) 40 mg IVP DAILY [facility] Last Admin: 03/28/17 09:49 Dose: 40 mg Pneumococcal Polyvalent Vaccine (Pneumovax 23 Vaccine) 0.5 ml IM .ONCE ONE Stop: 03/30/17 10:01 - Labs Labs: 03/28/17 14:55 03/28/17 14:55
[2017-03-29] MEDS: Piperacill/Tazo 3.375gm in Dex 3.375 GM/50 ML BAG IVPB SCH ×3 (02:49→18:30)
[2017-03-29] MEDS: Lactated Ringer's 1,000 ML IV SCH ×5 (02:49→20:57)
--- NOTE | 2017-03-29 04:35 | CON ---
DATE: 03/28/2017 LOCATION: ICU 4. HISTORY OF PRESENT ILLNESS: I was called for a GI consultation by the ICU staff, Dr. Nguyen. Patient is seen and fully examined on 03/28/2017, as requested by the admitting medical team. Patient was seen and fully examined in the presence of her family members as well as also the nursing staff in the intensive care unit. This is a 36-year-old female with a known history of depression and schizophrenia, was admitted to the hospital through the emergency room with a main complaint of severe crampy abdominal pain, nausea, vomiting, poor oral intake with abdominal distention followed by one episode of diarrhea. It has to be mentioned that due to the patient's mental status, all the information is obtained from the medical record, medical staff, nursing staff as well as the patient's sister and mother. No reported chest pain, palpitation, chills or fever, or active bleeding. PAST MEDICAL HISTORY: Including, but not limited to, mainly schizophrenia, depression, and mentally challenged patient. FAMILY HISTORY: Unknown, unrelated to specific GI disorder. SOCIAL HISTORY: No reported cigarette smoking or alcohol intake. ALLERGIES TO MEDICATION: UNCLEAR. CURRENT MEDICATION: Medication list post admission is seen. LABORATORY DATA: Blood workup post admission showed leukocytosis of 26.7 with increased blood glucose level to 324 with low CO2 content to 21 indicative of metabolic acidosis as well as increased lactic acid with increased BUN to 19, creatinine 1.7. Abdominal and pelvic CAT scan done, official report is seen with possible small bowel obstruction. PHYSICAL EXAMINATION: GENERAL: A 36-year-old female with NG tube in place draining large amount of gastric contents, somewhat brownish dark in color without any clear evidence of active bleeding, with a low-grade temperature and pulse of 108, respiratory 20 to 22, blood pressure 118/76. HEENT: Showed pale dry oral mucous membrane, mildly. Nonicteric sclerae. NG tube is in place. LYMPH NODES: No lymphadenitis or lymphadenopathy. LUNGS: Few scattered crepitation. Decreased air entry at bases. HEART: Positive S1 and S2 with increased rate. ABDOMEN: With [id number] distention with hypoactive bowel sounds. No mass or organomegaly. No rebound tenderness or guarding. EXTREMITIES: Slight lower extremity edematous changes. No clubbing or cyanosis. NEUROLOGIC: No reported new neurological deficits, sensory or motor. No focal deficit reported recently. IMPRESSION: 1. Recurrent episodes of nausea and vomiting, with a large amount of retained gastric contents, again with abnormal CAT scan of the abdomen and pelvis, again the possibility of gastric outlet obstruction or/and possible small bowel obstruction was raised clinically and by radiology study results. 2. Metabolic acidosis, with elevated white blood cells, with possible acute gastroenteritis. 3. Known history of schizophrenia with depression. 4. Dehydration. 5. Poorly controlled blood glucose level of unclear etiology. SUGGESTIONS: 1. Agree with your plan. 2. Rehydration. 3. Peripheral hyperalimentation. 4. Decompression. 5. Surgical reevaluation. 6. Patient for an initial upper endoscopy when she is more stable clinically; however, patient may need to be intubated to avoid any potential high risk of aspiration, that to be discussed at length again with anesthesia staff as well as primary MD. 7. Further recommendation to follow. Again, surgical revaluation should take place immediately. Thank you for letting me participate in your patient's case management. We will follow up post upper endoscopy if the patient is more stable clinically. William Michael MD
[2017-03-29] MEDS: metroNIDAZOLE IV 500 mg/100 ml 500 MG/100 ML BAG IVPB SCH ×3 (05:54→21:02)
--- NOTE | 2017-03-29 06:13 | CP.PCM.PN ---
Subjective - Date & Time of Evaluation Date of Evaluation: 03/29/17 Time of Evaluation: 06:10 - Subjective Subjective: General Surgery: Arago Pt S&E. Asleep comfortably. No apparent pain. Family reports no overnight events. Pt's urine remains dark, now on 300/hr LR. Remains tachypnic and tachycardic despite fluids and bicarb. BP WNL. NGT frequently clogging due to thickness of fluid. Objective - Vital Signs/Intake and Output Vital Signs (last 24 hours): Temp Pulse Resp BP Pulse Ox 100.6 F H 152 H 37 H 116/69 94 L 03/28/17 20:00 03/29/17 04:53 03/29/17 04:53 03/29/17 04:53 03/29/17 04:53 Intake and Output: 03/28/17 03/29/17 18:59 06:59 Intake Total 3500 2500 Output Total 2695 485 Balance 805 2014 - Medications Medications: Current Medications Haloperidol Lactate (Haldol) 1 mg IVP BID [facility] Last Admin: 03/28/17 17:17 Dose: 1 mg Metronidazole (Flagyl) 500 mg in 100 mls @ 100 mls/hr IVPB Q8 [facility] Last Admin: 03/29/17 05:54 Dose: 100 mls/hr Piperacillin Sod/Tazobactam Sod (Zosyn 3.375 Gm Iv Premix) 3.375 gm in 50 mls @ 100 mls/hr IVPB Q8H [facility] Last Admin: 03/29/17 02:49 Dose: 100 mls/hr Lactated Ringer's (Lactated Ringer's) 1,000 mls @ 300 mls/hr IV .Q3H20M [facility] Last Admin: 03/29/17 02:49 Dose: 300 mls/hr Lorazepam (Ativan) 0.5 mg IVP Q8H PRN PRN Reason: Anxiety Last Admin: 03/28/17 21:21 Dose: 0.5 mg Ondansetron HCl (Zofran Inj) 4 mg IVP Q6H PRN PRN Reason: Nausea/Vomiting Pantoprazole Sodium (Protonix Inj) 40 mg IVP DAILY [facility] Last Admin: 03/28/17 09:49 Dose: 40 mg Pneumococcal Polyvalent Vaccine (Pneumovax 23 Vaccine) 0.5 ml IM .ONCE ONE Stop: 03/30/17 10:01 - Labs Labs: 03/28/17 14:55 03/28/17 14:55 - Constitutional Appears: Non-toxic - Head Exam Head Exam: NORMAL INSPECTION - ENT Exam ENT Exam: Mucous Membranes Dry - Respiratory Exam Respiratory Exam: absent: Accessory Muscle Use, Respiratory Distress - Cardiovascular Exam Cardiovascular Exam: Tachycardia, REGULAR RHYTHM - GI/Abdominal Exam GI & Abdominal Exam: Soft. absent: Distended, Firm, Guarding, Tenderness Additional comments: abdominal exam improved from yesterday - Neurological Exam Neurological Exam: Alert, Awake - Skin Skin Exam: Normal Color, Warm Assessment and Plan - Assessment and Plan (Free Text) Assessment: 36F with significant gastric distension and abdominal pain Plan: for EGD today - will f/u results abdominal tenderness improved - may have been 2/2 UTI cont abx cont NGT to suction d/w Dr Kacy Camacho, PGY3
[2017-03-29 06:48] LABS: BASO % 0.2 % (0.0-2.0); HEMOGLOBIN 11.2 g/dL (11.0-16.0); LYMPH # 1.4 K/uL (1.0-4.3); LYMPH % 6.5 % (20.0-40.0); MEAN CELL VOLUME 84.2 fL (81.0-99.0); MEAN CORPUSCULAR HEMOGLOBIN 28.6 pg (27.0-31.0); MEAN PLATELET VOLUME 9.3 fL (7.2-11.7); MONO # 2.2 K/uL (0.0-0.8); MONO % 10.5 % (0.0-10.0); NEUT # 17.6 K/uL (1.8-7.0); NEUT % 82.8 % (50.0-75.0); PLATELET COUNT 211 K/uL (130-400); RBC 3.93 Mil/uL (3.80-5.20); RED CELL DISTRIBUTION WIDTH 13.3 % (11.5-14.5); WHITE BLOOD COUNT 21.3 K/uL (4.8-10.8)
[2017-03-29 07:10] LABS: ALB/GLOB RATIO 1.2 (1.0-2.1); ALBUMIN 2.5 g/dL (3.5-5.0); ALT/SGPT 40 U/L (9-52); AST/SGOT 55 U/L (14-36); BLOOD UREA NITROGEN 16 mg/dL (7-17); CALCIUM 7.2 mg/dl (8.6-10.4); GFR AFRICAN-AMERICAN > 60; GFR NON-AFRICAN AMERICAN > 60; LIPASE 322 U/L (23-300)
--- NOTE | 2017-03-29 07:21 | CP.CCUPN ---
Addendum entered and electronically signed by Pari Smith DO 03/29/17 15:35: psych consult: Dr. Mccloud Original Note: <Pari Smith - Last Filed: 03/29/17 13:31> CCU Subjective - Physician Review Subjective (Free Text): 03/29/17 07:20 Critical Care Progress note for Dr. Nguyen NGT in place connected to IWS @ 18mmHg. Gastric contents along with fluid flushes. Patient yelling in discomfort and scrunched her eyes in pain. NGT repositioned due to patient moving arms and attempting to remove the tube. Tovar in place, dark cloudy urine output. Patient is to have EGD today by Dr. Harmon. Patient continues to be tachycardia. Patient had EGD done, showing third portion of duodenum compression. To continue with NGT suction per Dr. Harmon and placed on Reglan CCU Objective - Vital Signs / Intake & Output Vital Signs (Last 4 hours): Vital Signs Pulse Resp BP Pulse Ox 03/29/17 04:53 152 H 37 H 116/69 94 L 03/29/17 04:00 149 H 31 H 94 L 03/29/17 03:53 110/71 Intake and Output (Last 8hrs): Intake & Output 03/28/17 03/29/17 03/29/17 22:59 06:59 14:59 Intake Total 2650 1200 Output Total 925 255 Balance 1725 945 Intake: Intake, IV Amount 2650 1200 Left Distal Port PICC 350 Left PICC 2300 1200 Oral 0 0 Output: Gastric Amount 600 Right Nares 600 Urine 325 255 Urethral (Tovar) 325 255 Other: # Bowel Movements 0 0 - Physical Exam Head: Positive for: Atraumatic, Normocephalic. Negative for: Tenderness Pupils: Positive for: PERRL Extroacular Muscles: Positive for: EOMI Mouth: Positive for: Moist Mucous Membranes. Negative for: Dry, Drooling Nose (External): Positive for: Other (NGT in place) Nose (Internal): Positive for: Normal Inspection, Moist, Other (NGT in place) Neck: Positive for: Normal Range of Motion. Negative for: JVD, Lymphadenopathy Respiratory/Chest: Positive for: Clear to Auscultation. Negative for: Respiratory Distress, Accessory Muscle Use Cardiovascular: Positive for: Regular Rate and Rhythm, Normal S1, S2 Upper Extremity: Positive for: Normal Inspection, Normal ROM, Capillary Refill < 2s. Negative for: Edema Lower Extremity: Positive for: Normal Inspection. Negative for: Edema Neurological: Positive for: Other (patient does not speak). Negative for: Speech Normal Skin: Positive for: Warm, Pale Psychiatric: Positive for: Alert - Medications Active Medications: Active Medications Generic Name Dose Route Start Last Admin Trade Name Freq PRN Reason Stop Dose Admin Haloperidol Lactate 1 mg 03/28/17 18:00 03/28/17 17:17 Haldol IVP 1 mg BID AGUSTIN Administration Metronidazole 500 mg in 100 mls @ 100 mls/hr 03/27/17 23:45 03/29/17 05:54 Flagyl IVPB 100 mls/hr Q8 AGUSTIN Administration Piperacillin Sod/Tazobactam Sod 3.375 gm in 50 mls @ 100 mls/hr 03/28/17 02: 30 03/29/17 02:49 Zosyn 3.375 Gm Iv Premix IVPB 100 mls/hr Q8H AGUSTIN Administration Lactated Ringer's 1,000 mls @ 300 mls/hr 03/29/17 02:15 03/29/17 07:09 Lactated Ringer's IV 300 mls/hr .[id number] AGUSTIN Administration Lorazepam 0.5 mg 03/29/17 07:08 Ativan IVP Q6H PRN Anxiety Ondansetron HCl 4 mg 03/27/17 23:45 Zofran Inj IVP Q6H PRN Nausea/Vomiting Pantoprazole Sodium 40 mg 03/28/17 10:00 03/28/17 09:49 Protonix Inj IVP 40 mg DAILY AGUSTIN Administration Pneumococcal Polyvalent Vaccine 0.5 ml 03/30/17 10:00 Pneumovax 23 Vaccine IM 03/30/17 10:01 .ONCE ONE - Patient Studies Lab Studies: Lab Studies 03/29/17 03/29/17 03/29/17 Range/Units 06:36 06:36 01:39 WBC 21.3 H (4.8-10.8) K/uL RBC 3.93 (3.80-5.20) Mil/uL Hgb 11.2 (11.0-16.0) g/dL Hct 33.0 L (34.0-47.0) % MCV 84.2 (81.0-99.0) fL MCH 28.6 (27.0-31.0) pg MCHC 34.0 (33.0-37.0) g/dL RDW 13.3 (11.5-14.5) % Plt Count 211 (130-400) K/uL MPV 9.3 (7.2-11.7) fL Neut % (Auto) 82.8 H (50.0-75.0) % Lymph % (Auto) 6.5 L (20.0-40.0) % [place] % (Auto) 10.5 H (0.0-10.0) % Eos % (Auto) 0.0 (0.0-4.0) % Baso % (Auto) 0.2 (0.0-2.0) % Neut # 17.6 H (1.8-7.0) K/uL Lymph # 1.4 (1.0-4.3) K/uL [place] # 2.2 H (0.0-0.8) K/uL Eos # 0.0 (0.0-0.7) K/uL Baso # 0.0 (0.0-0.2) K/uL Neutrophils % (Manual) (50-75) % Band Neutrophils % (0-2) % Lymphocytes % (Manual) (20-40) % Monocytes % (Manual) (0-10) % Platelet Estimate (NORMAL) RBC Morphology pO2 37 (30-55) mm/Hg VBG pH 7.39 (7.32-7.43) VBG pCO2 36 L (40-60) mmHg VBG HCO3 22.2 mmol/L VBG Total CO2 22.9 (22-28) mmol/L VBG O2 Sat (Calc) 78.1 H (40-65) % VBG Base Excess -2.6 L (0.0-2.0) mmol/L VBG Potassium 3.5 L (3.6-5.2) mmol/L Glucose 91 (65-105) mg/dl Lactate 0.9 (0.7-2.1) mmol/L FiO2 21.0 % Sodium 136 142.0 (132-148) mmol/L Potassium 3.4 L (3.6-5.2) mmol/L Chloride 109 H 115.0 H (98-107) mmol/L Carbon Dioxide 25 (22-30) mmol/L Anion Gap 6 L (10-20) BUN 16 (7-17) mg/dL Creatinine 0.8 (0.7-1.2) mg/dL Est GFR ( Amer) > 60 Est GFR (Non-Af Amer) > 60 POC Glucose (mg/dL) (65-110) mg/dL Random Glucose 82 (65-105) mg/dL Hemoglobin A1c (4.2-6.5) % Calcium 7.2 L (8.6-10.4) mg/dl Phosphorus 2.5 (2.5-4.5) mg/dL Magnesium 1.7 (1.6-2.3) mg/dL Total Bilirubin 0.7 (0.2-1.3) mg/dL AST 55 H (14-36) U/L ALT 40 (9-52) U/L Alkaline Phosphatase 48 (38-126) U/L Total Protein 4.6 L (6.3-8.3) g/dL Albumin 2.5 L (3.5-5.0) g/dL Globulin 2.1 L (2.2-3.9) gm/dL Albumin/Globulin Ratio 1.2 (1.0-2.1) Lipase 322 H (23-300) U/L Carcinoembryonic Ag (0-3.0) ng/mL CA 19-9 Antigen (0-37) U/mL CA 125 Antigen (0-35) U/mL Venous Blood Potassium 3.5 L (3.6-5.2) mmol/L 03/28/17 03/28/17 03/28/17 Range/Units 21:16 16:47 14:55 WBC (4.8-10.8) K/uL RBC (3.80-5.20) Mil/uL Hgb (11.0-16.0) g/dL Hct (34.0-47.0) % MCV (81.0-99.0) fL MCH (27.0-31.0) pg MCHC (33.0-37.0) g/dL RDW (11.5-14.5) % Plt Count (130-400) K/uL MPV (7.2-11.7) fL Neut % (Auto) (50.0-75.0) % Lymph % (Auto) (20.0-40.0) % [place] % (Auto) (0.0-10.0) % Eos % (Auto) (0.0-4.0) % Baso % (Auto) (0.0-2.0) % Neut # (1.8-7.0) K/uL Lymph # (1.0-4.3) K/uL [place] # (0.0-0.8) K/uL Eos # (0.0-0.7) K/uL Baso # (0.0-0.2) K/uL Neutrophils % (Manual) (50-75) % Band Neutrophils % (0-2) % Lymphocytes % (Manual) (20-40) % Monocytes % (Manual) (0-10) % Platelet Estimate (NORMAL) RBC Morphology pO2 (30-55) mm/Hg VBG pH (7.32-7.43) VBG pCO2 (40-60) mmHg VBG HCO3 mmol/L VBG Total CO2 (22-28) mmol/L VBG O2 Sat (Calc) (40-65) % VBG Base Excess (0.0-2.0) mmol/L VBG Potassium (3.6-5.2) mmol/L Glucose (65-105) mg/dl Lactate (0.7-2.1) mmol/L FiO2 % Sodium (132-148) mmol/L Potassium (3.6-5.2) mmol/L Chloride (98-107) mmol/L Carbon Dioxide (22-30) mmol/L Anion Gap (10-20) BUN (7-17) mg/dL Creatinine (0.7-1.2) mg/dL Est GFR ( Amer) Est GFR (Non-Af Amer) POC Glucose (mg/dL) 87 110 (65-110) mg/dL Random Glucose (65-105) mg/dL Hemoglobin A1c (4.2-6.5) % Calcium (8.6-10.4) mg/dl Phosphorus (2.5-4.5) mg/dL Magnesium (1.6-2.3) mg/dL Total Bilirubin (0.2-1.3) mg/dL AST (14-36) U/L ALT (9-52) U/L Alkaline Phosphatase (38-126) U/L Total Protein (6.3-8.3) g/dL Albumin (3.5-5.0) g/dL Globulin (2.2-3.9) gm/dL Albumin/Globulin Ratio (1.0-2.1) Lipase (23-300) U/L Carcinoembryonic Ag 1.0 (0-3.0) ng/mL CA 19-9 Antigen 5.1 (0-37) U/mL CA 125 Antigen 9.0 (0-35) U/mL Venous Blood Potassium (3.6-5.2) mmol/L 03/28/17 03/28/17 03/28/17 Range/Units 14:55 14:55 12:32 WBC 24.8 H (4.8-10.8) K/uL RBC 4.59 (3.80-5.20) Mil/uL Hgb 12.9 (11.0-16.0) g/dL Hct 38.4 (34.0-47.0) % MCV 83.6 (81.0-99.0) fL MCH 28.0 (27.0-31.0) pg MCHC 33.5 (33.0-37.0) g/dL RDW 13.8 (11.5-14.5) % Plt Count 258 (130-400) K/uL MPV 9.0 (7.2-11.7) fL Neut % (Auto) 85.1 H (50.0-75.0) % Lymph % (Auto) 4.8 L (20.0-40.0) % [place] % (Auto) 9.8 (0.0-10.0) % Eos % (Auto) 0.0 (0.0-4.0) % Baso % (Auto) 0.3 (0.0-2.0) % Neut # 21.1 H (1.8-7.0) K/uL Lymph # 1.2 (1.0-4.3) K/uL [place] # 2.4 H (0.0-0.8) K/uL Eos # 0.0 (0.0-0.7) K/uL Baso # 0.1 (0.0-0.2) K/uL Neutrophils % (Manual) 89 H (50-75) % Band Neutrophils % (0-2) % Lymphocytes % (Manual) 3 L (20-40) % Monocytes % (Manual) 8 (0-10) % Platelet Estimate Normal (NORMAL) RBC Morphology Normal pO2 (30-55) mm/Hg VBG pH (7.32-7.43) VBG pCO2 (40-60) mmHg VBG HCO3 mmol/L VBG Total CO2 (22-28) mmol/L VBG O2 Sat (Calc) (40-65) % VBG Base Excess (0.0-2.0) mmol/L VBG Potassium (3.6-5.2) mmol/L Glucose (65-105) mg/dl Lactate (0.7-2.1) mmol/L FiO2 % Sodium 141 (132-148) mmol/L Potassium 4.1 (3.6-5.2) mmol/L Chloride 110 H (98-107) mmol/L Carbon Dioxide 25 (22-30) mmol/L Anion Gap 10 (10-20) BUN 21 H (7-17) mg/dL Creatinine 1.3 H (0.7-1.2) mg/dL Est GFR ( Amer) 57 Est GFR (Non-Af Amer) 47 POC Glucose (mg/dL) 130 H (65-110) mg/dL Random Glucose 110 H (65-105) mg/dL Hemoglobin A1c (4.2-6.5) % Calcium 7.4 L (8.6-10.4) mg/dl Phosphorus 3.0 (2.5-4.5) mg/dL Magnesium 1.5 L (1.6-2.3) mg/dL Total Bilirubin 0.8 (0.2-1.3) mg/dL AST 51 H (14-36) U/L ALT 56 H (9-52) U/L Alkaline Phosphatase 46 (38-126) U/L Total Protein 5.2 L (6.3-8.3) g/dL Albumin 2.8 L (3.5-5.0) g/dL Globulin 2.3 (2.2-3.9) gm/dL Albumin/Globulin Ratio 1.2 (1.0-2.1) Lipase (23-300) U/L Carcinoembryonic Ag (0-3.0) ng/mL CA 19-9 Antigen (0-37) U/mL CA 125 Antigen (0-35) U/mL Venous Blood Potassium (3.6-5.2) mmol/L 03/28/17 03/28/17 03/28/17 Range/Units 08:55 05:41 05:41 WBC (4.8-10.8) K/uL RBC (3.80-5.20) Mil/uL Hgb (11.0-16.0) g/dL Hct (34.0-47.0) % MCV (81.0-99.0) fL MCH (27.0-31.0) pg MCHC (33.0-37.0) g/dL RDW (11.5-14.5) % Plt Count (130-400) K/uL MPV (7.2-11.7) fL Neut % (Auto) (50.0-75.0) % Lymph % (Auto) (20.0-40.0) % [place] % (Auto) (0.0-10.0) % Eos % (Auto) (0.0-4.0) % Baso % (Auto) (0.0-2.0) % Neut # (1.8-7.0) K/uL Lymph # (1.0-4.3) K/uL [place] # (0.0-0.8) K/uL Eos # (0.0-0.7) K/uL Baso # (0.0-0.2) K/uL Neutrophils % (Manual) 84 H (50-75) % Band Neutrophils % 5 H (0-2) % Lymphocytes % (Manual) 7 L (20-40) % Monocytes % (Manual) 4 (0-10) % Platelet Estimate Normal (NORMAL) RBC Morphology Normal pO2 (30-55) mm/Hg VBG pH (7.32-7.43) VBG pCO2 (40-60) mmHg VBG HCO3 mmol/L VBG Total CO2 (22-28) mmol/L VBG O2 Sat (Calc) (40-65) % VBG Base Excess (0.0-2.0) mmol/L VBG Potassium (3.6-5.2) mmol/L Glucose (65-105) mg/dl Lactate (0.7-2.1) mmol/L FiO2 % Sodium (132-148) mmol/L Potassium (3.6-5.2) mmol/L Chloride (98-107) mmol/L Carbon Dioxide (22-30) mmol/L Anion Gap (10-20) BUN (7-17) mg/dL Creatinine (0.7-1.2) mg/dL Est GFR ( Amer) Est GFR (Non-Af Amer) POC Glucose (mg/dL) 124 H (65-110) mg/dL Random Glucose (65-105) mg/dL Hemoglobin A1c 5.3 (4.2-6.5) % Calcium (8.6-10.4) mg/dl Phosphorus (2.5-4.5) mg/dL Magnesium (1.6-2.3) mg/dL Total Bilirubin (0.2-1.3) mg/dL AST (14-36) U/L ALT (9-52) U/L Alkaline Phosphatase (38-126) U/L Total Protein (6.3-8.3) g/dL Albumin (3.5-5.0) g/dL Globulin (2.2-3.9) gm/dL Albumin/Globulin Ratio (1.0-2.1) Lipase (23-300) U/L Carcinoembryonic Ag (0-3.0) ng/mL CA 19-9 Antigen (0-37) U/mL CA 125 Antigen (0-35) U/mL Venous Blood Potassium (3.6-5.2) mmol/L Laboratory Results - last 24 hr 03/28/17 03/28/17 03/28/17 05:41 05:41 08:55 WBC RBC Hgb Hct MCV MCH MCHC RDW Plt Count MPV Neut % (Auto) Lymph % (Auto) [place] % (Auto) Eos % (Auto) Baso % (Auto) Neut # Lymph # [place] # Eos # Baso # Neutrophils % (Manual) 84 H Band Neutrophils % 5 H Lymphocytes % (Manual) 7 L Monocytes % (Manual) 4 Platelet Estimate Normal RBC Morphology Normal pO2 VBG pH VBG pCO2 VBG HCO3 VBG Total CO2 VBG O2 Sat (Calc) VBG Base Excess VBG Potassium Glucose Lactate FiO2 Sodium Potassium Chloride Carbon Dioxide Anion Gap BUN Creatinine Est GFR ( Amer) Est GFR (Non-Af Amer) POC Glucose (mg/dL) 124 H Random Glucose Hemoglobin A1c 5.3 Calcium Phosphorus Magnesium Total Bilirubin AST ALT Alkaline Phosphatase Total Protein Albumin Globulin Albumin/Globulin Ratio Lipase Carcinoembryonic Ag CA 19-9 Antigen CA 125 Antigen Venous Blood Potassium 03/28/17 03/28/17 03/28/17 12:32 14:55 14:55 WBC 24.8 H RBC 4.59 Hgb 12.9 Hct 38.4 MCV 83.6 MCH 28.0 MCHC 33.5 RDW 13.8 Plt Count 258 MPV 9.0 Neut % (Auto) 85.1 H Lymph % (Auto) 4.8 L [place] % (Auto) 9.8 Eos % (Auto) 0.0 Baso % (Auto) 0.3 Neut # 21.1 H Lymph # 1.2 [place] # 2.4 H Eos # 0.0 Baso # 0.1 Neutrophils % (Manual) 89 H Band Neutrophils % Lymphocytes % (Manual) 3 L Monocytes % (Manual) 8 Platelet Estimate Normal RBC Morphology Normal pO2 VBG pH VBG pCO2 VBG HCO3 VBG Total CO2 VBG O2 Sat (Calc) VBG Base Excess VBG Potassium Glucose Lactate FiO2 Sodium 141 Potassium 4.1 Chloride 110 H Carbon Dioxide 25 Anion Gap 10 BUN 21 H Creatinine 1.3 H Est GFR ( Amer) 57 Est GFR (Non-Af Amer) 47 POC Glucose (mg/dL) 130 H Random Glucose 110 H Hemoglobin A1c Calcium 7.4 L Phosphorus 3.0 Magnesium 1.5 L Total Bilirubin 0.8 AST 51 H ALT 56 H Alkaline Phosphatase 46 Total Protein 5.2 L Albumin 2.8 L Globulin 2.3 Albumin/Globulin Ratio 1.2 Lipase Carcinoembryonic Ag CA 19-9 Antigen CA 125 Antigen Venous Blood Potassium 03/28/17 03/28/17 03/28/17 14:55 16:47 21:16 WBC RBC Hgb Hct MCV MCH MCHC RDW Plt Count MPV Neut % (Auto) Lymph % (Auto) [place] % (Auto) Eos % (Auto) Baso % (Auto) Neut # Lymph # [place] # Eos # Baso # Neutrophils % (Manual) Band Neutrophils % Lymphocytes % (Manual) Monocytes % (Manual) Platelet Estimate RBC Morphology pO2 VBG pH VBG pCO2 VBG HCO3 VBG Total CO2 VBG O2 Sat (Calc) VBG Base Excess VBG Potassium Glucose Lactate FiO2 Sodium Potassium Chloride Carbon Dioxide Anion Gap BUN Creatinine Est GFR ( Amer) Est GFR (Non-Af Amer) POC Glucose (mg/dL) 110 87 Random Glucose Hemoglobin A1c Calcium Phosphorus Magnesium Total Bilirubin AST ALT Alkaline Phosphatase Total Protein Albumin Globulin Albumin/Globulin Ratio Lipase Carcinoembryonic Ag 1.0 CA 19-9 Antigen 5.1 CA 125 Antigen 9.0 Venous Blood Potassium 03/29/17 03/29/17 03/29/17 01:39 06:36 06:36 WBC 21.3 H RBC 3.93 Hgb 11.2 Hct 33.0 L MCV 84.2 MCH 28.6 MCHC 34.0 RDW 13.3 Plt Count 211 MPV 9.3 Neut % (Auto) 82.8 H Lymph % (Auto) 6.5 L [place] % (Auto) 10.5 H Eos % (Auto) 0.0 Baso % (Auto) 0.2 Neut # 17.6 H Lymph # 1.4 [place] # 2.2 H Eos # 0.0 Baso # 0.0 Neutrophils % (Manual) Band Neutrophils % Lymphocytes % (Manual) Monocytes % (Manual) Platelet Estimate RBC Morphology pO2 37 VBG pH 7.39 VBG pCO2 36 L VBG HCO3 22.2 VBG Total CO2 22.9 VBG O2 Sat (Calc) 78.1 H VBG Base Excess -2.6 L VBG Potassium 3.5 L Glucose 91 Lactate 0.9 FiO2 21.0 Sodium 142.0 136 Potassium 3.4 L Chloride 115.0 H 109 H Carbon Dioxide 25 Anion Gap 6 L BUN 16 Creatinine 0.8 Est GFR ( Amer) > 60 Est GFR (Non-Af Amer) > 60 POC Glucose (mg/dL) Random Glucose 82 Hemoglobin A1c Calcium 7.2 L Phosphorus 2.5 Magnesium 1.7 Total Bilirubin 0.7 AST 55 H ALT 40 Alkaline Phosphatase 48 Total Protein 4.6 L Albumin 2.5 L Globulin 2.1 L Albumin/Globulin Ratio 1.2 Lipase 322 H Carcinoembryonic Ag CA 19-9 Antigen CA 125 Antigen Venous Blood Potassium 3.5 L Fingerstick Blood Sugar Results: 87 Review of Systems - EENT Eyes: As Per HPI Ears: As Per HPI Nose/Mouth/Throat: As Per HPI Critical Care Progress Note - Ventilator Checklist Daily Sedation Vacation: No Daily Assessment of Readiness to Wean: No Daily Spontaneous Breathing Trial: No PUD Prophalyxis: Yes DVT Prophylaxis: Yes - Extremities/Vascular Does the Patient have a Central Venous Catheter?: Yes Insertion Site: Axillary Vein - Prophylaxis GI Prophylaxis GI: PPI - Prophylaxis DVT Prophylaxis DVT: Lovenox - Nutrition Nutrition: Nutrition Category Date Time Status NPO Diet [DIET] Diets 03/28/17 Dinner Active Assessment/Plan - Assessment and Plan (Free Text) Assessment: 36 y/o nonverbal female admitted with diarrhea,tachycardia,elevated WBC count , lipase and lactic acid, found to have severe gastric outlet obstruction with high NGT output. GI Consult Dr. Harmon to have EGD today. Plan Neuro: hx of Schizophrenia Pain: Dilaudid 0.5 mg Q6H PRN Sedation: 1mg Haldol IVP Q12H, 0.5mg Ativan Q6H PRN Cardio: 03/27 EKG Sinus tachycardia 138 bpm f/u 03/30 EKG Pulm: 03/27 AB.22 03/27 CXR in infiltrates, no active pulmonary disease Endo: 03/28 Hemoglobin A1c 5.3 GI: 03/28 Lipase 8456 03/28 00:18 CT abdomen/pelvis with IV contrast: gastric distention 32cm and distention of the first and third and second portion of duodenum. Transition and complete decompression of third portion of duodenum. pancreas unremarkable, spleen unremarkable, partially contracted gallbladder. duodenal obstruction v delayed emptying v gastroparesis. Fluid distention of distal esophagus 3.3cm representing gastric emptying v gastroesophageal reflux. f/u 03/[address] abdomen/pelvis with IV contrast: significantly dilated stomach with retained food and fluid. significantly diminished prior to earlier CT 03/28. No free intraperitoneal gas identified. contrast noted in Gallbladder. 03/28 FOBT positive 03/[address] connected to suction. 03/28 NGT OP since insertion: 2600cc f/u Strict I/Os General Surgery Consult: Dr. Woodruff 03/[address] Harmon to have EGD today. 03/[address] Harmon, place patient on Reglan to help with motility. Reglan Renal: 03/27 UA: proteinuria urine output since insertion 360 average hourly output 60cc/hr f/u Strict I/Os : 03/27 UA: hazy, specific gravity >1.060, 3+ urine protein, Urine bacteria, Urine Yeast Ceftriaxone 1gm IVPB QD f/u Urine Cx Heme: H/H: 03/27 14.6/44.7 03/28 12.9/38.5 MSK: Patient can walk per sister, but is dizzy so hasn't walked ID: Code sepsis 03/28 02:20 03/28 lactate 9.7 03/28 01:05 9.2 03/28 06:15 1.3 03/27 WBC 26.7 03/28 WBC 30.2 f/u AM CBC f/u blood Culture f/u MRSA screen f/u Urine Culture Flagyl 500mg IVPB Q8H Zosyn 3.375gm in 50cc IVPB Q8H Prophylaxis: DVT: Lovenox 50 mg SC GI: Protonix 40mg IVP QD Zofran 4mg IVP Q6H PRN Nausea Fluids: NS @ 250cc/hr 03/28 PICC line insertion by Dr. Nguyen at bedside, confirmed placement with XRAY discussed with Dr. David Smith DO PGY1 - Date & Time Date: 03/29/17 Time: 07:29 <Jose Hernandez S - Last Filed: 03/29/17 16:14> CCU Objective - Vital Signs / Intake & Output Vital Signs (Last 4 hours): Vital Signs Temp Pulse Resp BP Pulse Ox 03/29/17 13:31 127 H 31 H 95/56 L 97 03/29/17 13:25 100.3 F H 03/29/17 13:01 130 H 33 H 98/56 L 95 03/29/17 12:46 132 H 32 H 101/61 95 03/29/17 12:31 148 H 51 H 116/71 80 L 03/29/17 12:25 100.9 F H 03/29/17 12:16 128 H 34 H 108/68 100 Intake and Output (Last 8hrs): Intake & Output 03/29/17 03/29/17 03/29/17 06:59 14:59 22:59 Intake Total 2500 1575 Output Total 485 1045 Balance 2014 530 Weight 152 lb Intake: IV 400 Intake, IV Amount 2500 1175 Left Distal Port PICC 100 Left PICC 2400 1175 Oral 0 0 Output: Gastric Drainage 200 Gastric Amount 600 Right Nares 600 Urine 485 245 Urethral (Tovar) 485 245 Other: # Bowel Movements 0 0 - Medications Active Medications: Active Medications Generic Name Dose Route Start Last Admin Trade Name Freq PRN Reason Stop Dose Admin Acetaminophen 325 mg 03/29/17 07:57 03/29/17 12:25 Tylenol 325 Mg Supp NM 325 mg Q4 PRN Administration Fever >100.4 F Haloperidol Lactate 1 mg 03/28/17 18:00 03/29/17 12:19 Haldol IVP Not Given BID AGUSTIN Metronidazole 500 mg in 100 mls @ 100 mls/hr 03/27/17 23:45 03/29/17 14:02 Flagyl IVPB 100 mls/hr Q8 AGUSTIN Administration Piperacillin Sod/Tazobactam Sod 3.375 gm in 50 mls @ 100 mls/hr 03/28/17 02: 30 03/29/17 09:37 Zosyn 3.375 Gm Iv Premix IVPB 100 mls/hr Q8H AGUSTIN Administration Lactated Ringer's 1,000 mls @ 75 mls/hr 03/29/17 14:15 Lactated Ringer's IV .[id number] AGUSTIN Potassium Chloride 20 meq in 100 mls @ 50 mls/hr 03/29/17 14:53 Potassium Chloride 20 Meq/100 Ml IVPB 03/29/17 16:52 ONCE ONE Lorazepam 0.5 mg 03/29/17 07:08 Ativan IVP Q6H PRN Anxiety Metoclopramide HCl 5 mg 03/29/17 12:00 03/29/17 12:24 Reglan IVP 5 mg Q6 AGUSTIN Administration Ondansetron HCl 4 mg 03/27/17 23:45 Zofran Inj IVP Q6H PRN Nausea/Vomiting Pantoprazole Sodium 40 mg 03/28/17 10:00 03/29/17 09:50 Protonix Inj IVP 40 mg DAILY AGUSTIN Administration Pneumococcal Polyvalent Vaccine 0.5 ml 03/30/17 10:00 Pneumovax 23 Vaccine IM 03/30/17 10:01 .ONCE ONE - Patient Studies Lab Studies: Microbiology Studies 03/27/17 22:35 Blood Culture - Preliminary Blood NO GROWTH AFTER 24 HOURS 03/27/17 22:35 Blood Culture - Preliminary Blood NO GROWTH AFTER 24 HOURS Lab Studies 03/29/17 03/29/17 03/29/17 Range/Units 09:49 09:23 09:11 WBC (4.8-10.8) K/uL RBC (3.80-5.20) Mil/uL Hgb (11.0-16.0) g/dL Hct (34.0-47.0) % MCV (81.0-99.0) fL MCH (27.0-31.0) pg MCHC (33.0-37.0) g/dL RDW (11.5-14.5) % Plt Count (130-400) K/uL MPV (7.2-11.7) fL Neut % (Auto) (50.0-75.0) % Lymph % (Auto) (20.0-40.0) % [place] % (Auto) (0.0-10.0) % Eos % (Auto) (0.0-4.0) % Baso % (Auto) (0.0-2.0) % Neut # (1.8-7.0) K/uL Lymph # (1.0-4.3) K/uL [place] # (0.0-0.8) K/uL Eos # (0.0-0.7) K/uL Baso # (0.0-0.2) K/uL Neutrophils % (Manual) (50-75) % Band Neutrophils % (0-2) % Lymphocytes % (Manual) (20-40) % Monocytes % (Manual) (0-10) % Platelet Estimate (NORMAL) RBC Morphology PT 20.2 H (9.7-12.2) SECONDS INR 1.8 APTT 30 (21-34) SECONDS pO2 42 (30-55) mm/Hg VBG pH 7.40 (7.32-7.43) VBG pCO2 41 (40-60) mmHg VBG HCO3 24.8 mmol/L VBG Total CO2 26.7 (22-28) mmol/L VBG O2 Sat (Calc) 83.8 H (40-65) % VBG Base Excess 0.5 (0.0-2.0) mmol/L VBG Potassium 3.2 L (3.6-5.2) mmol/L Sodium 143.0 (132-148) mmol/l Chloride 114.0 H (98-107) mmol/L Glucose 85 (65-105) mg/dl Lactate 0.9 (0.7-2.1) mmol/L FiO2 % Potassium (3.6-5.2) mmol/L Carbon Dioxide (22-30) mmol/L Anion Gap (10-20) BUN (7-17) mg/dL Creatinine (0.7-1.2) mg/dL Est GFR ( Amer) Est GFR (Non-Af Amer) POC Glucose (mg/dL) (65-110) mg/dL Random Glucose (65-105) mg/dL Calcium (8.6-10.4) mg/dl Phosphorus (2.5-4.5) mg/dL Magnesium (1.6-2.3) mg/dL Total Bilirubin (0.2-1.3) mg/dL AST (14-36) U/L ALT (9-52) U/L Alkaline Phosphatase (38-126) U/L Total Protein (6.3-8.3) g/dL Albumin (3.5-5.0) g/dL Globulin (2.2-3.9) gm/dL Albumin/Globulin Ratio (1.0-2.1) Lipase (23-300) U/L Procalcitonin 3.43 H (0.19-0.49) NG/ML Venous Blood Potassium 3.2 L (3.6-5.2) mmol/L 03/29/17 03/29/17 03/29/17 Range/Units 06:36 06:36 01:39 WBC 21.3 H (4.8-10.8) K/uL RBC 3.93 (3.80-5.20) Mil/uL Hgb 11.2 (11.0-16.0) g/dL Hct 33.0 L (34.0-47.0) % MCV 84.2 (81.0-99.0) fL MCH 28.6 (27.0-31.0) pg MCHC 34.0 (33.0-37.0) g/dL RDW 13.3 (11.5-14.5) % Plt Count 211 (130-400) K/uL MPV 9.3 (7.2-11.7) fL Neut % (Auto) 82.8 H (50.0-75.0) % Lymph % (Auto) 6.5 L (20.0-40.0) % [place] % (Auto) 10.5 H (0.0-10.0) % Eos % (Auto) 0.0 (0.0-4.0) % Baso % (Auto) 0.2 (0.0-2.0) % Neut # 17.6 H (1.8-7.0) K/uL Lymph # 1.4 (1.0-4.3) K/uL [place] # 2.2 H (0.0-0.8) K/uL Eos # 0.0 (0.0-0.7) K/uL Baso # 0.0 (0.0-0.2) K/uL Neutrophils % (Manual) 75 (50-75) % Band Neutrophils % 9 H (0-2) % Lymphocytes % (Manual) 8 L (20-40) % Monocytes % (Manual) 8 (0-10) % Platelet Estimate Normal (NORMAL) RBC Morphology Normal PT (9.7-12.2) SECONDS INR APTT (21-34) SECONDS pO2 37 (30-55) mm/Hg VBG pH 7.39 (7.32-7.43) VBG pCO2 36 L (40-60) mmHg VBG HCO3 22.2 mmol/L VBG Total CO2 22.9 (22-28) mmol/L VBG O2 Sat (Calc) 78.1 H (40-65) % VBG Base Excess -2.6 L (0.0-2.0) mmol/L VBG Potassium 3.5 L (3.6-5.2) mmol/L Sodium 136 142.0 (132-148) mmol/l Chloride 109 H 115.0 H (98-107) mmol/L Glucose 91 (65-105) mg/dl Lactate 0.9 (0.7-2.1) mmol/L FiO2 21.0 % Potassium 3.4 L (3.6-5.2) mmol/L Carbon Dioxide 25 (22-30) mmol/L Anion Gap 6 L (10-20) BUN 16 (7-17) mg/dL Creatinine 0.8 (0.7-1.2) mg/dL Est GFR ( Amer) > 60 Est GFR (Non-Af Amer) > 60 POC Glucose (mg/dL) (65-110) mg/dL Random Glucose 82 (65-105) mg/dL Calcium 7.2 L (8.6-10.4) mg/dl Phosphorus 2.5 (2.5-4.5) mg/dL Magnesium 1.7 (1.6-2.3) mg/dL Total Bilirubin 0.7 (0.2-1.3) mg/dL AST 55 H (14-36) U/L ALT 40 (9-52) U/L Alkaline Phosphatase 48 (38-126) U/L Total Protein 4.6 L (6.3-8.3) g/dL Albumin 2.5 L (3.5-5.0) g/dL Globulin 2.1 L (2.2-3.9) gm/dL Albumin/Globulin Ratio 1.2 (1.0-2.1) Lipase 322 H (23-300) U/L Procalcitonin (0.19-0.49) NG/ML Venous Blood Potassium 3.5 L (3.6-5.2) mmol/L 03/28/17 03/28/17 Range/Units 21:16 16:47 WBC (4.8-10.8) K/uL RBC (3.80-5.20) Mil/uL Hgb (11.0-16.0) g/dL Hct (34.0-47.0) % MCV (81.0-99.0) fL MCH (27.0-31.0) pg MCHC (33.0-37.0) g/dL RDW (11.5-14.5) % Plt Count (130-400) K/uL MPV (7.2-11.7) fL Neut % (Auto) (50.0-75.0) % Lymph % (Auto) (20.0-40.0) % [place] % (Auto) (0.0-10.0) % Eos % (Auto) (0.0-4.0) % Baso % (Auto) (0.0-2.0) % Neut # (1.8-7.0) K/uL Lymph # (1.0-4.3) K/uL [place] # (0.0-0.8) K/uL Eos # (0.0-0.7) K/uL Baso # (0.0-0.2) K/uL Neutrophils % (Manual) (50-75) % Band Neutrophils % (0-2) % Lymphocytes % (Manual) (20-40) % Monocytes % (Manual) (0-10) % Platelet Estimate (NORMAL) RBC Morphology PT (9.7-12.2) SECONDS INR APTT (21-34) SECONDS pO2 (30-55) mm/Hg VBG pH (7.32-7.43) VBG pCO2 (40-60) mmHg VBG HCO3 mmol/L VBG Total CO2 (22-28) mmol/L VBG O2 Sat (Calc) (40-65) % VBG Base Excess (0.0-2.0) mmol/L VBG Potassium (3.6-5.2) mmol/L Sodium (132-148) mmol/l Chloride (98-107) mmol/L Glucose (65-105) mg/dl Lactate (0.7-2.1) mmol/L FiO2 % Potassium (3.6-5.2) mmol/L Carbon Dioxide (22-30) mmol/L Anion Gap (10-20) BUN (7-17) mg/dL Creatinine (0.7-1.2) mg/dL Est GFR ( Amer) Est GFR (Non-Af Amer) POC Glucose (mg/dL) 87 110 (65-110) mg/dL Random Glucose (65-105) mg/dL Calcium (8.6-10.4) mg/dl Phosphorus (2.5-4.5) mg/dL Magnesium (1.6-2.3) mg/dL Total Bilirubin (0.2-1.3) mg/dL AST (14-36) U/L ALT (9-52) U/L Alkaline Phosphatase (38-126) U/L Total Protein (6.3-8.3) g/dL Albumin (3.5-5.0) g/dL Globulin (2.2-3.9) gm/dL Albumin/Globulin Ratio (1.0-2.1) Lipase (23-300) U/L Procalcitonin (0.19-0.49) NG/ML Venous Blood Potassium (3.6-5.2) mmol/L Laboratory Results - last 24 hr 03/28/17 03/28/17 03/29/17 16:47 21:16 01:39 WBC RBC Hgb Hct MCV MCH MCHC RDW Plt Count MPV Neut % (Auto) Lymph % (Auto) [place] % (Auto) Eos % (Auto) Baso % (Auto) Neut # Lymph # [place] # Eos # Baso # Neutrophils % (Manual) Band Neutrophils % Lymphocytes % (Manual) Monocytes % (Manual) Platelet Estimate RBC Morphology PT INR APTT pO2 37 VBG pH 7.39 VBG pCO2 36 L VBG HCO3 22.2 VBG Total CO2 22.9 VBG O2 Sat (Calc) 78.1 H VBG Base Excess -2.6 L VBG Potassium 3.5 L Sodium 142.0 Chloride 115.0 H Glucose 91 Lactate 0.9 FiO2 21.0 Potassium Carbon Dioxide Anion Gap BUN Creatinine Est GFR ( Amer) Est GFR (Non-Af Amer) POC Glucose (mg/dL) 110 87 Random Glucose Calcium Phosphorus Magnesium Total Bilirubin AST ALT Alkaline Phosphatase Total Protein Albumin Globulin Albumin/Globulin Ratio Lipase Procalcitonin Venous Blood Potassium 3.5 L 03/29/17 03/29/17 03/29/17 06:36 06:36 09:11 WBC 21.3 H RBC 3.93 Hgb 11.2 Hct 33.0 L MCV 84.2 MCH 28.6 MCHC 34.0 RDW 13.3 Plt Count 211 MPV 9.3 Neut % (Auto) 82.8 H Lymph % (Auto) 6.5 L [place] % (Auto) 10.5 H Eos % (Auto) 0.0 Baso % (Auto) 0.2 Neut # 17.6 H Lymph # 1.4 [place] # 2.2 H Eos # 0.0 Baso # 0.0 Neutrophils % (Manual) 75 Band Neutrophils % 9 H Lymphocytes % (Manual) 8 L Monocytes % (Manual) 8 Platelet Estimate Normal RBC Morphology Normal PT INR APTT pO2 42 VBG pH 7.40 VBG pCO2 41 VBG HCO3 24.8 VBG Total CO2 26.7 VBG O2 Sat (Calc) 83.8 H VBG Base Excess 0.5 VBG Potassium 3.2 L Sodium 136 143.0 Chloride 109 H 114.0 H Glucose 85 Lactate 0.9 FiO2 Potassium 3.4 L Carbon Dioxide 25 Anion Gap 6 L BUN 16 Creatinine 0.8 Est GFR ( Amer) > 60 Est GFR (Non-Af Amer) > 60 POC Glucose (mg/dL) Random Glucose 82 Calcium 7.2 L Phosphorus 2.5 Magnesium 1.7 Total Bilirubin 0.7 AST 55 H ALT 40 Alkaline Phosphatase 48 Total Protein 4.6 L Albumin 2.5 L Globulin 2.1 L Albumin/Globulin Ratio 1.2 Lipase 322 H Procalcitonin Venous Blood Potassium 3.2 L 03/29/17 03/29/17 09:23 09:49 WBC RBC Hgb Hct MCV MCH MCHC RDW Plt Count MPV Neut % (Auto) Lymph % (Auto) [place] % (Auto) Eos % (Auto) Baso % (Auto) Neut # Lymph # [place] # Eos # Baso # Neutrophils % (Manual) Band Neutrophils % Lymphocytes % (Manual) Monocytes % (Manual) Platelet Estimate RBC Morphology PT 20.2 H INR 1.8 APTT 30 pO2 VBG pH VBG pCO2 VBG HCO3 VBG Total CO2 VBG O2 Sat (Calc) VBG Base Excess VBG Potassium Sodium Chloride Glucose Lactate FiO2 Potassium Carbon Dioxide Anion Gap BUN Creatinine Est GFR ( Amer) Est GFR (Non-Af Amer) POC Glucose (mg/dL) Random Glucose Calcium Phosphorus Magnesium Total Bilirubin AST ALT Alkaline Phosphatase Total Protein Albumin Globulin Albumin/Globulin Ratio Lipase Procalcitonin 3.43 H Venous Blood Potassium EKG/Cardiology Studies: Cardiology / EKG Studies 03/30/17 08:00 EKG [ELECTROCARDIOGRAM] Routine Comment: Mode Of Transportation: Reason For Exam: re-evaluate QTC Critical Care Progress Note - Nutrition Nutrition: Nutrition Category Date Time Status NPO Diet [DIET] Diets 03/29/17 Lunch Active Attending/Attestation - Attestation I have personally seen and examined this patient.: Yes I have fully participated in the care of the patient.: Yes I have reviewed all pertinent clinical information: Yes Notes (Text): 03/29/17 16:13 Patient seen and examined in the intensive care unit. Case discussed with staff in the morning rounds Status post EGD Started on Reglan ABG within normal limits Continue IV fluid Continue antibiotics Follow-up culture and sensitivity Surgical evaluation
[2017-03-29 08:46] LABS: BANDS 9 % (0-2); LYMPHOCYTE 8 % (20-40); MONOCYTE 8 % (0-10); NEUTROPHIL 75 % (50-75); PLATELET ESTIMATE NORMAL (NORMAL); TOTAL CELLS COUNTED 100
[2017-03-29 09:14] LABS: VENOUS BLOOD GAS BASE EXCESS 0.5 mmol/L (0.0-2.0); VENOUS BLOOD GAS PCO2 41 mmHg (40-60); VENOUS BLOOD GAS PO2 42 mm/Hg (30-55)
[2017-03-29] MEDS ORDERED: Lactated Ringer's 1,000 ML IV SCH ×2 (09:21→12:56)
[2017-03-29 09:43] LABS: INR 1.8; PROTHROMBIN TIME 20.2 SECONDS (9.7-12.2)
[2017-03-29] MEDS ORDERED: Propofol 10 mg/ml Inj (20 ML) ONE (11:06)
[2017-03-29] MEDS ORDERED: Succinylcholine Chloride 20 mg/ml Syr (5 ml) IV ONE (11:25)
[2017-03-29] MEDS ORDERED: Lactated Ringer's 500 ML IV SCH (11:45)
[2017-03-29] MEDS ORDERED: Phenylephrine 10 mg/ml Inj ONE (11:49)
--- NOTE | 2017-03-29 14:34 | PCM.PSYCH ---
Initial Psychiatric Evaluation - Initial Psychiatric Evaluation Chief Complaint (in patient's own words): Nothing, she is unresponsive Seen for a consult for psych hx History of Present Illness and Precipitating Events: The patient is seen chart reviewed and case discussed. This is a 36-year-old female, single with no children living with her sister. The patient was in almost still poor and could not talk with us. Her sister and niece were bedside and they were contacted as well as staff. Her sister reported that the patient was diagnosed with mental retardation but she is not sure about schizophrenia. However, she had been given psychiatric medications in the past to "calm her down" She even showed us home videos off the patient screaming top of her voice. She does not go to any special program and is not even clear if she was legally certified as intellectually disabled. Currently she is given Haldol IV and she seems calm and sleeping. Past psych history: No admissions accused psych medications Family psych history: Denied Medical history: As per chart Current Medications: Active Medications Generic Name Dose Route Start Last Admin Trade Name Freq PRN Reason Stop Dose Admin Acetaminophen 325 mg 03/29/17 07:57 03/29/17 12:25 Tylenol 325 Mg Supp IN 325 mg Q4 PRN Administration Fever >100.4 F Haloperidol Lactate 1 mg 03/28/17 18:00 03/29/17 12:19 Haldol IVP Not Given BID AGUSTIN Metronidazole 500 mg in 100 mls @ 100 mls/hr 03/27/17 23:45 03/29/17 14:02 Flagyl IVPB 100 mls/hr Q8 AGUSTIN Administration Piperacillin Sod/Tazobactam Sod 3.375 gm in 50 mls @ 100 mls/hr 03/28/17 02: 30 03/29/17 09:37 Zosyn 3.375 Gm Iv Premix IVPB 100 mls/hr Q8H AGUSTIN Administration Lactated Ringer's 1,000 mls @ 75 mls/hr 03/29/17 14:15 Lactated Ringer's IV .[id number] AGUSTIN Lorazepam 0.5 mg 03/29/17 07:08 Ativan IVP Q6H PRN Anxiety Metoclopramide HCl 5 mg 03/29/17 12:00 03/29/17 12:24 Reglan IVP 5 mg Q6 AGUSTIN Administration Ondansetron HCl 4 mg 03/27/17 23:45 Zofran Inj IVP Q6H PRN Nausea/Vomiting Pantoprazole Sodium 40 mg 03/28/17 10:00 03/29/17 09:50 Protonix Inj IVP 40 mg DAILY AGUSTIN Administration Pneumococcal Polyvalent Vaccine 0.5 ml 03/30/17 10:00 Pneumovax 23 Vaccine IM 03/30/17 10:01 .ONCE ONE Past Psychiatric History - Past Psychiatric History Previous Treatment History: Intensive Outpatient Pertinent Medical Hx (Current Medical&Sleep Prob, Allergies): Allergies Allergy/AdvReac Type Severity Reaction Status Date / Time No Known Allergies Allergy Unverified 03/27/17 21:28 Escitalopram [Lexapro] 10 mg PO DAILY #10 tab 03/01/17 QUEtiapine [SEROquel] 200 mg PO BID #20 tab 03/01/17 Review of Systems - Review of Systems Systems not reviewed;Unavailable: Altered Mental Status (And she has mental retardation) Mental Status Examination - Personal Presentation Personal Presentation: Looks stated age - Affect Affect: Blunted - Motor Activity Motor Activity: Other (Restless) - Reliability in Providing Information Reliability in Providing Information: Poor, due to cognitve impairment (Very lethargic and uncooperative) - Speech Speech: Other (Unable to assess) - Mood Mood: Other (Unable to assess) - Formal Thought Process Formal Thought Process: Other - Cognitive Functions Sensorium: Lethargic Estimate of Intelligence: Below average (By history) - Risk Risk: Diminished functioning - Strength & Assets Inventory Strength & Assets Inventory: Family support DSM 5 DX - DSM 5 DSM 5 Diagnosis: Intellectual disability, severe Psychotic disorder unspecified - Recommended/Plan of Treatment Treatment Recommendations and Plan of Treatment: Continue Haldol but you can hold off if she is overly sedated She may require Risperdal or Abilify as standing orders later on Sister is given information about [facility] where they can get official help (therapy, support, respid and application for disability etc.) Psych will sign off 33 min
--- NOTE | 2017-03-29 16:54 | RAD ---
HISTORY: rule out pleural effusion COMPARISON: Chest x-ray performed 07/27/16 TECHNIQUE: Chest, one view. FINDINGS: Left-sided PICC extends expected location of the cavoatrial junction. Nasogastric tube extends expected location of the stomach. Multiple external wires and leads obscure evaluation of the underlying parenchyma. LUNGS: Mild pulmonary venous congestion. Probable small left pleural effusion and or atelectasis/infiltrate. No definite pneumothorax. CARDIOVASCULAR: The cardiomediastinal silhouette appears within normal limits of size. OSSEOUS STRUCTURES: No acute osseous abnormality identified. VISUALIZED UPPER ABDOMEN: Unremarkable. OTHER FINDINGS: None. IMPRESSION: Support lines and tubes as above. Mild pulmonary venous congestion. Probable small left pleural effusion and or atelectasis/infiltrate.
[2017-03-30] MEDS: Piperacill/Tazo 3.375gm in Dex 3.375 GM/50 ML BAG IVPB SCH ×3 (01:50→18:00)
[2017-03-30] MEDS: Lactated Ringer's 1,000 ML IV SCH ×6 (04:00→22:09)
[2017-03-30] MEDS: metroNIDAZOLE IV 500 mg/100 ml 500 MG/100 ML BAG IVPB SCH ×3 (05:04→21:35)
[2017-03-30 06:38] LABS: BASO % 0.3 % (0.0-2.0); HEMOGLOBIN 9.5 g/dL (11.0-16.0); LYMPH # 1.1 K/uL (1.0-4.3); LYMPH % 6.9 % (20.0-40.0); MEAN CELL VOLUME 83.7 fL (81.0-99.0); MEAN CORPUSCULAR HEMOGLOBIN 28.7 pg (27.0-31.0); MEAN CORPUSCULAR HGB CONC 34.3 g/dL (33.0-37.0); MEAN PLATELET VOLUME 9.1 fL (7.2-11.7); MONO # 1.2 K/uL (0.0-0.8); MONO % 7.3 % (0.0-10.0); NEUT # 13.8 K/uL (1.8-7.0); NEUT % 85.5 % (50.0-75.0); PLATELET COUNT 163 K/uL (130-400); RBC 3.31 Mil/uL (3.80-5.20); RED CELL DISTRIBUTION WIDTH 13.3 % (11.5-14.5); WHITE BLOOD COUNT 16.1 K/uL (4.8-10.8)
[2017-03-30 06:50] LABS: ALB/GLOB RATIO 0.8 (1.0-2.1); ALBUMIN 2.4 g/dL (3.5-5.0); ALT/SGPT 40 U/L (9-52); AST/SGOT 43 U/L (14-36); BLOOD UREA NITROGEN 13 mg/dL (7-17); CALCIUM 7.6 mg/dl (8.6-10.4); GFR AFRICAN-AMERICAN > 60; GFR NON-AFRICAN AMERICAN > 60
--- NOTE | 2017-03-30 06:58 | CP.CCUPN ---
Addendum entered and electronically signed by Pari Smith DO 03/30/17 15:25: Patient had glucose <60 on ABG, 2 ampoules of D5W ordered. Original Note: <Pari Smith - Last Filed: 03/30/17 09:23> CCU Subjective - Physician Review Subjective (Free Text): 03/29/17 07:20 Critical Care Progress note for Dr. Lord Patient seen and examined at bedside. No acute events overnight. Patient appears to be coughing since yesterday. With suctioning secretions and phlegm, the cough is dry. Critical Care Time Spent (in minutes): 35 CCU Objective - Vital Signs / Intake & Output Vital Signs (Last 4 hours): Vital Signs Temp Pulse Resp BP Pulse Ox 03/30/17 06:00 129 H 33 H 95 03/30/17 05:57 99/57 L 03/30/17 05:04 104/63 03/30/17 04:58 116/62 03/30/17 04:00 99.5 F 03/30/17 03:57 124 H 30 H 99/59 L 97 03/30/17 03:00 129 H 31 H 97 03/30/17 02:57 131 H 31 H 97/56 L 97 Intake and Output (Last 8hrs): Intake & Output 03/29/17 03/29/17 03/30/17 14:59 22:59 06:59 Intake Total 1750 690 700 Output Total 1085 1305 480 Balance 665 -615 220 Intake: IV 400 Intake, IV Amount 1350 650 700 Left PICC 1350 650 700 Oral 0 Other 40 Output: Gastric Drainage 200 Gastric Amount 600 350 200 Right Nares 600 350 200 Urine 285 355 280 Urethral (Tovar) 285 355 280 Other 600 Other: # Bowel Movements 0 0 0 - Physical Exam Head: Positive for: Atraumatic, Normocephalic. Negative for: Tenderness Pupils: Positive for: PERRL Extroacular Muscles: Positive for: EOMI Mouth: Positive for: Moist Mucous Membranes. Negative for: Dry, Drooling Nose (External): Positive for: Other (NGT in place) Nose (Internal): Positive for: Normal Inspection, Moist, Other (NGT in place) Neck: Positive for: Normal Range of Motion. Negative for: JVD, Lymphadenopathy Respiratory/Chest: Positive for: Clear to Auscultation. Negative for: Respiratory Distress, Accessory Muscle Use Cardiovascular: Positive for: Regular Rate and Rhythm, Normal S1, S2 Abdomen: Positive for: Tenderness, Guarding (slight guarding). Negative for: Distention Upper Extremity: Positive for: Normal Inspection, Normal ROM, Capillary Refill < 2s. Negative for: Edema Lower Extremity: Positive for: Normal Inspection. Negative for: Edema Neurological: Positive for: Other (patient does not speak). Negative for: Speech Normal Skin: Positive for: Warm, Pale Psychiatric: Positive for: Alert - Medications Active Medications: Active Medications Generic Name Dose Route Start Last Admin Trade Name Freq PRN Reason Stop Dose Admin Acetaminophen 325 mg 03/29/17 07:57 03/29/17 16:14 Tylenol 325 Mg Supp NV 325 mg Q4 PRN Administration Fever >100.4 F Haloperidol Lactate 1 mg 03/29/17 18:47 03/30/17 01:56 Haldol IVP 1 mg BID PRN Administration Agitation Metronidazole 500 mg in 100 mls @ 100 mls/hr 03/27/17 23:45 03/30/17 05:04 Flagyl IVPB 100 mls/hr Q8 AGUSTIN Administration Piperacillin Sod/Tazobactam Sod 3.375 gm in 50 mls @ 100 mls/hr 03/28/17 02: 30 03/30/17 01:50 Zosyn 3.375 Gm Iv Premix IVPB 100 mls/hr Q8H AGUSTIN Administration Lactated Ringer's 1,000 mls @ 200 mls/hr 03/30/17 06:39 Lactated Ringer's IV .Q5H AGUSTIN Potassium Chloride 20 meq in 100 mls @ 50 mls/hr 03/30/17 07:00 Potassium Chloride 20 Meq/100 Ml IVPB 03/30/17 10:59 Q2H AGUSTIN Lorazepam 0.5 mg 03/29/17 07:08 03/30/17 04:53 Ativan IVP 0.5 mg Q6H PRN Administration Anxiety Metoclopramide HCl 5 mg 03/29/17 12:00 03/30/17 05:04 Reglan IVP 5 mg Q6 AGUSTIN Administration Ondansetron HCl 4 mg 03/27/17 23:45 Zofran Inj IVP Q6H PRN Nausea/Vomiting Pantoprazole Sodium 40 mg 03/28/17 10:00 03/29/17 09:50 Protonix Inj IVP 40 mg DAILY AGUSTIN Administration Pneumococcal Polyvalent Vaccine 0.5 ml 03/30/17 10:00 Pneumovax 23 Vaccine IM 03/30/17 10:01 .ONCE ONE - Patient Studies Lab Studies: Microbiology Studies 03/28/17 02:08 MRSA Culture (Admit) - Final Naris MRSA NOT DETECTED 03/28/17 01:35 Urine Culture - Final Urine,Clean Catch No Growth (<1,000 CFU/ML) 03/27/17 22:35 Blood Culture - Preliminary Blood NO GROWTH AFTER 24 HOURS 03/27/17 22:35 Blood Culture - Preliminary Blood NO GROWTH AFTER 24 HOURS Lab Studies 03/30/17 03/30/17 03/29/17 Range/Units 06:26 06:26 09:49 WBC 16.1 H (4.8-10.8) K/uL RBC 3.31 L (3.80-5.20) Mil/uL Hgb 9.5 L (11.0-16.0) g/dL Hct 27.7 L (34.0-47.0) % MCV 83.7 (81.0-99.0) fL MCH 28.7 (27.0-31.0) pg MCHC 34.3 (33.0-37.0) g/dL RDW 13.3 (11.5-14.5) % Plt Count 163 (130-400) K/uL MPV 9.1 (7.2-11.7) fL Neut % (Auto) 85.5 H (50.0-75.0) % Lymph % (Auto) 6.9 L (20.0-40.0) % Lassen % (Auto) 7.3 (0.0-10.0) % Eos % (Auto) 0.0 (0.0-4.0) % Baso % (Auto) 0.3 (0.0-2.0) % Neut # 13.8 H (1.8-7.0) K/uL Lymph # 1.1 (1.0-4.3) K/uL Lassen # 1.2 H (0.0-0.8) K/uL Eos # 0.0 (0.0-0.7) K/uL Baso # 0.0 (0.0-0.2) K/uL Neutrophils % (Manual) (50-75) % Band Neutrophils % (0-2) % Lymphocytes % (Manual) (20-40) % Monocytes % (Manual) (0-10) % Platelet Estimate (NORMAL) RBC Morphology PT (9.7-12.2) SECONDS INR APTT (21-34) SECONDS pO2 (30-55) mm/Hg VBG pH (7.32-7.43) VBG pCO2 (40-60) mmHg VBG HCO3 mmol/L VBG Total CO2 (22-28) mmol/L VBG O2 Sat (Calc) (40-65) % VBG Base Excess (0.0-2.0) mmol/L VBG Potassium (3.6-5.2) mmol/L Glucose (65-105) mg/dl Lactate (0.7-2.1) mmol/L Sodium 137 (132-148) mmol/L Potassium 3.3 L (3.6-5.2) mmol/L Chloride 106 (98-107) mmol/L Carbon Dioxide 26 (22-30) mmol/L Anion Gap 9 L (10-20) BUN 13 (7-17) mg/dL Creatinine 0.7 (0.7-1.2) mg/dL Est GFR ( Amer) > 60 Est GFR (Non-Af Amer) > 60 Random Glucose 68 (65-105) mg/dL Calcium 7.6 L (8.6-10.4) mg/dl Phosphorus 2.1 L (2.5-4.5) mg/dL Magnesium 1.9 (1.6-2.3) mg/dL Total Bilirubin 0.7 (0.2-1.3) mg/dL AST 43 H D (14-36) U/L ALT 40 (9-52) U/L Alkaline Phosphatase 44 (38-126) U/L Total Protein 5.5 L (6.3-8.3) g/dL Albumin 2.4 L (3.5-5.0) g/dL Globulin 3.1 (2.2-3.9) gm/dL Albumin/Globulin Ratio 0.8 L (1.0-2.1) Lipase (23-300) U/L Procalcitonin 3.43 H (0.19-0.49) NG/ML Venous Blood Potassium (3.6-5.2) mmol/L 03/29/17 03/29/17 03/29/17 Range/Units 09:23 09:11 06:36 WBC (4.8-10.8) K/uL RBC (3.80-5.20) Mil/uL Hgb (11.0-16.0) g/dL Hct (34.0-47.0) % MCV (81.0-99.0) fL MCH (27.0-31.0) pg MCHC (33.0-37.0) g/dL RDW (11.5-14.5) % Plt Count (130-400) K/uL MPV (7.2-11.7) fL Neut % (Auto) (50.0-75.0) % Lymph % (Auto) (20.0-40.0) % Lassen % (Auto) (0.0-10.0) % Eos % (Auto) (0.0-4.0) % Baso % (Auto) (0.0-2.0) % Neut # (1.8-7.0) K/uL Lymph # (1.0-4.3) K/uL Lassen # (0.0-0.8) K/uL Eos # (0.0-0.7) K/uL Baso # (0.0-0.2) K/uL Neutrophils % (Manual) 75 (50-75) % Band Neutrophils % 9 H (0-2) % Lymphocytes % (Manual) 8 L (20-40) % Monocytes % (Manual) 8 (0-10) % Platelet Estimate Normal (NORMAL) RBC Morphology Normal PT 20.2 H (9.7-12.2) SECONDS INR 1.8 APTT 30 (21-34) SECONDS pO2 42 (30-55) mm/Hg VBG pH 7.40 (7.32-7.43) VBG pCO2 41 (40-60) mmHg VBG HCO3 24.8 mmol/L VBG Total CO2 26.7 (22-28) mmol/L VBG O2 Sat (Calc) 83.8 H (40-65) % VBG Base Excess 0.5 (0.0-2.0) mmol/L VBG Potassium 3.2 L (3.6-5.2) mmol/L Glucose 85 (65-105) mg/dl Lactate 0.9 (0.7-2.1) mmol/L Sodium 143.0 (132-148) mmol/L Potassium (3.6-5.2) mmol/L Chloride 114.0 H (98-107) mmol/L Carbon Dioxide (22-30) mmol/L Anion Gap (10-20) BUN (7-17) mg/dL Creatinine (0.7-1.2) mg/dL Est GFR ( Amer) Est GFR (Non-Af Amer) Random Glucose (65-105) mg/dL Calcium (8.6-10.4) mg/dl Phosphorus (2.5-4.5) mg/dL Magnesium (1.6-2.3) mg/dL Total Bilirubin (0.2-1.3) mg/dL AST (14-36) U/L ALT (9-52) U/L Alkaline Phosphatase (38-126) U/L Total Protein (6.3-8.3) g/dL Albumin (3.5-5.0) g/dL Globulin (2.2-3.9) gm/dL Albumin/Globulin Ratio (1.0-2.1) Lipase (23-300) U/L Procalcitonin (0.19-0.49) NG/ML Venous Blood Potassium 3.2 L (3.6-5.2) mmol/L 03/29/17 Range/Units 06:36 WBC (4.8-10.8) K/uL RBC (3.80-5.20) Mil/uL Hgb (11.0-16.0) g/dL Hct (34.0-47.0) % MCV (81.0-99.0) fL MCH (27.0-31.0) pg MCHC (33.0-37.0) g/dL RDW (11.5-14.5) % Plt Count (130-400) K/uL MPV (7.2-11.7) fL Neut % (Auto) (50.0-75.0) % Lymph % (Auto) (20.0-40.0) % Lassen % (Auto) (0.0-10.0) % Eos % (Auto) (0.0-4.0) % Baso % (Auto) (0.0-2.0) % Neut # (1.8-7.0) K/uL Lymph # (1.0-4.3) K/uL Lassen # (0.0-0.8) K/uL Eos # (0.0-0.7) K/uL Baso # (0.0-0.2) K/uL Neutrophils % (Manual) (50-75) % Band Neutrophils % (0-2) % Lymphocytes % (Manual) (20-40) % Monocytes % (Manual) (0-10) % Platelet Estimate (NORMAL) RBC Morphology PT (9.7-12.2) SECONDS INR APTT (21-34) SECONDS pO2 (30-55) mm/Hg VBG pH (7.32-7.43) VBG pCO2 (40-60) mmHg VBG HCO3 mmol/L VBG Total CO2 (22-28) mmol/L VBG O2 Sat (Calc) (40-65) % VBG Base Excess (0.0-2.0) mmol/L VBG Potassium (3.6-5.2) mmol/L Glucose (65-105) mg/dl Lactate (0.7-2.1) mmol/L Sodium 136 (132-148) mmol/L Potassium 3.4 L (3.6-5.2) mmol/L Chloride 109 H (98-107) mmol/L Carbon Dioxide 25 (22-30) mmol/L Anion Gap 6 L (10-20) BUN 16 (7-17) mg/dL Creatinine 0.8 (0.7-1.2) mg/dL Est GFR ( Amer) > 60 Est GFR (Non-Af Amer) > 60 Random Glucose 82 (65-105) mg/dL Calcium 7.2 L (8.6-10.4) mg/dl Phosphorus 2.5 (2.5-4.5) mg/dL Magnesium 1.7 (1.6-2.3) mg/dL Total Bilirubin 0.7 (0.2-1.3) mg/dL AST 55 H (14-36) U/L ALT 40 (9-52) U/L Alkaline Phosphatase 48 (38-126) U/L Total Protein 4.6 L (6.3-8.3) g/dL Albumin 2.5 L (3.5-5.0) g/dL Globulin 2.1 L (2.2-3.9) gm/dL Albumin/Globulin Ratio 1.2 (1.0-2.1) Lipase 322 H (23-300) U/L Procalcitonin (0.19-0.49) NG/ML Venous Blood Potassium (3.6-5.2) mmol/L Laboratory Results - last 24 hr 03/29/17 03/29/17 03/29/17 06:36 06:36 09:11 WBC RBC Hgb Hct MCV MCH MCHC RDW Plt Count MPV Neut % (Auto) Lymph % (Auto) Lassen % (Auto) Eos % (Auto) Baso % (Auto) Neut # Lymph # Lassen # Eos # Baso # Neutrophils % (Manual) 75 Band Neutrophils % 9 H Lymphocytes % (Manual) 8 L Monocytes % (Manual) 8 Platelet Estimate Normal RBC Morphology Normal PT INR APTT pO2 42 VBG pH 7.40 VBG pCO2 41 VBG HCO3 24.8 VBG Total CO2 26.7 VBG O2 Sat (Calc) 83.8 H VBG Base Excess 0.5 VBG Potassium 3.2 L Glucose 85 Lactate 0.9 Sodium 136 143.0 Potassium 3.4 L Chloride 109 H 114.0 H Carbon Dioxide 25 Anion Gap 6 L BUN 16 Creatinine 0.8 Est GFR ( Amer) > 60 Est GFR (Non-Af Amer) > 60 Random Glucose 82 Calcium 7.2 L Phosphorus 2.5 Magnesium 1.7 Total Bilirubin 0.7 AST 55 H ALT 40 Alkaline Phosphatase 48 Total Protein 4.6 L Albumin 2.5 L Globulin 2.1 L Albumin/Globulin Ratio 1.2 Lipase 322 H Procalcitonin Venous Blood Potassium 3.2 L 03/29/17 03/29/17 03/30/17 09:23 09:49 06:26 WBC 16.1 H RBC 3.31 L Hgb 9.5 L Hct 27.7 L MCV 83.7 MCH 28.7 MCHC 34.3 RDW 13.3 Plt Count 163 MPV 9.1 Neut % (Auto) 85.5 H Lymph % (Auto) 6.9 L Lassen % (Auto) 7.3 Eos % (Auto) 0.0 Baso % (Auto) 0.3 Neut # 13.8 H Lymph # 1.1 Lassen # 1.2 H Eos # 0.0 Baso # 0.0 Neutrophils % (Manual) Band Neutrophils % Lymphocytes % (Manual) Monocytes % (Manual) Platelet Estimate RBC Morphology PT 20.2 H INR 1.8 APTT 30 pO2 VBG pH VBG pCO2 VBG HCO3 VBG Total CO2 VBG O2 Sat (Calc) VBG Base Excess VBG Potassium Glucose Lactate Sodium Potassium Chloride Carbon Dioxide Anion Gap BUN Creatinine Est GFR ( Amer) Est GFR (Non-Af Amer) Random Glucose Calcium Phosphorus Magnesium Total Bilirubin AST ALT Alkaline Phosphatase Total Protein Albumin Globulin Albumin/Globulin Ratio Lipase Procalcitonin 3.43 H Venous Blood Potassium 03/30/17 06:26 WBC RBC Hgb Hct MCV MCH MCHC RDW Plt Count MPV Neut % (Auto) Lymph % (Auto) Lassen % (Auto) Eos % (Auto) Baso % (Auto) Neut # Lymph # Lassen # Eos # Baso # Neutrophils % (Manual) Band Neutrophils % Lymphocytes % (Manual) Monocytes % (Manual) Platelet Estimate RBC Morphology PT INR APTT pO2 VBG pH VBG pCO2 VBG HCO3 VBG Total CO2 VBG O2 Sat (Calc) VBG Base Excess VBG Potassium Glucose Lactate Sodium 137 Potassium 3.3 L Chloride 106 Carbon Dioxide 26 Anion Gap 9 L BUN 13 Creatinine 0.7 Est GFR ( Amer) > 60 Est GFR (Non-Af Amer) > 60 Random Glucose 68 Calcium 7.6 L Phosphorus 2.1 L Magnesium 1.9 Total Bilirubin 0.7 AST 43 H D ALT 40 Alkaline Phosphatase 44 Total Protein 5.5 L Albumin 2.4 L Globulin 3.1 Albumin/Globulin Ratio 0.8 L Lipase Procalcitonin Venous Blood Potassium EKG/Cardiology Studies: Cardiology / EKG Studies 03/30/17 08:00 EKG [ELECTROCARDIOGRAM] Routine Comment: Mode Of Transportation: Reason For Exam: re-evaluate QTC Fingerstick Blood Sugar Results: 87 Critical Care Progress Note - Ventilator Checklist Head of Bed 30 Degrees: Yes Daily Sedation Vacation: No PUD Prophalyxis: Yes DVT Prophylaxis: Yes - Nutrition Nutrition: Nutrition Category Date Time Status NPO Diet [DIET] Diets 03/29/17 Lunch Active Assessment/Plan - Assessment and Plan (Free Text) Assessment: 36 y/o nonverbal female admitted with diarrhea,tachycardia,elevated WBC count , lipase and lactic acid, found to have severe gastric outlet obstruction with high NGT output. GI Consult Dr. Harmon to have EGD today. Plan Neuro: hx of Schizophrenia Pain: Dilaudid 0.5 mg Q6H PRN Sedation: 1mg Haldol IVP Q12H, 0.5mg Ativan Q6H PRN Psych: Psych Consult Dr. Mccloud: f/u 03/30 EKG to evaluate QTc Quetiapine (Seroquel) 200mg POBID, held d/t NGT on IWS Escitalopram (Lexapro) 10mg PO QD, held d/t NGT on IWS Cardio: 03/27 EKG Sinus tachycardia 138 bpm f/u 03/30 EKG Pulm: 03/27 AB.22 03/27 CXR in infiltrates, no active pulmonary disease 03/30 CXR: poor inspiratory effort Endo: 03/28 Hemoglobin A1c 5.3 GI: 03/28 Lipase 8456 03/29 Lipase 322 03/30 Lipase ___ 03/28 00:18 CT abdomen/pelvis with IV contrast: gastric distention 32cm and distention of the first and third and second portion of duodenum. Transition and complete decompression of third portion of duodenum. pancreas unremarkable, spleen unremarkable, partially contracted gallbladder. duodenal obstruction v delayed emptying v gastroparesis. Fluid distention of distal esophagus 3.3cm representing gastric emptying v gastroesophageal reflux. f/u 03/[address] abdomen/pelvis with IV contrast: significantly dilated stomach with retained food and fluid. significantly diminished prior to earlier CT 03/28. No free intraperitoneal gas identified. contrast noted in Gallbladder. 03/28 FOBT positive 03/[address] connected to suction. 03/28 NGT OP since insertion: 2600cc f/u Strict I/Os General Surgery Consult: Dr. Woodruff 03/[address] Harmon to have EGD today. 03/[address] Harmon, place patient on Reglan to help with motility. 03/30 Abdominal xray/obstructive series: Reglan Renal: 03/27 UA: proteinuria urine output since insertion 360 average hourly output 60cc/hr f/u Strict I/Os : 03/27 UA: hazy, specific gravity >1.060, 3+ urine protein, Urine bacteria, Urine Yeast Ceftriaxone 1gm IVPB QD 03/30 Urine Cx negative Heme: H/H: 03/27 14.6/44.7 03/28 12.9/38.5 03/29 11.2/33.0 03/30 9.5/27.7 MSK: Patient can walk per sister, but is dizzy so hasn't walked ID: Code sepsis 03/28 02:20 03/28 lactate 9.7 03/28 lactate 01:05 9.2 03/28 lactate 06:15 1.3 03/27 WBC 26.7 03/28 WBC 30.2 03/29 WBC 21.3 03/30 WBC 16.1 f/u AM CBC 03/30 blood Culture x 2, negative 03/30 MRSA screen negative 03/30 Urine Cx negative 03/29 Neutrophils 75, Bands 9 03/30 Neutrophils 83, Bands 1 Flagyl 500mg IVPB Q8H Zosyn 3.375gm in 50cc IVPB Q8H Prophylaxis: DVT: Lovenox 50 mg SC GI: Protonix 40mg IVP QD Zofran 4mg IVP Q6H PRN Nausea Fluids: LR @ 200cc/hr 03/28 PICC line insertion by Dr. Nguyen at bedside, confirmed placement with XRAY discussed with Dr. David Smith DO PGY1 - Date & Time Date: 03/30/17 Time: 09:20 <Aroldo Lord P - Last Filed: 03/30/17 18:11> CCU Objective - Vital Signs / Intake & Output Vital Signs (Last 4 hours): Vital Signs Temp Pulse Resp BP 03/30/17 16:00 99.6 F 150 H 64 H 03/30/17 15:57 152 H 62 H 113/64 03/30/17 15:00 155 H 36 H 03/30/17 14:58 150 H 32 H 123/92 H Intake and Output (Last 8hrs): Intake & Output 03/30/17 03/30/17 03/30/17 06:59 14:59 22:59 Intake Total 700 1500 300 Output Total 480 320 0 Balance 220 1180 300 Intake: Intake, IV Amount 700 1500 300 Left PICC 700 1500 300 Output: Gastric Amount 200 320 Right Nares 200 320 Urine 280 Urethral (Tovar) 280 Emesis 0 0 Other: # Bowel Movements 0 1 0 - Medications Active Medications: Active Medications Generic Name Dose Route Start Last Admin Trade Name Freq PRN Reason Stop Dose Admin Acetaminophen 325 mg 03/29/17 07:57 03/30/17 08:15 Tylenol 325 Mg Supp NV 325 mg Q4 PRN Administration Fever >100.4 F Haloperidol Lactate 1 mg 03/29/17 18:47 03/30/17 01:56 Haldol IVP 1 mg BID PRN Administration Agitation Metronidazole 500 mg in 100 mls @ 100 mls/hr 03/27/17 23:45 03/30/17 14:30 Flagyl IVPB 100 mls/hr Q8 AGUSTIN Administration Piperacillin Sod/Tazobactam Sod 3.375 gm in 50 mls @ 100 mls/hr 03/28/17 02: 30 03/30/17 09:36 Zosyn 3.375 Gm Iv Premix IVPB 100 mls/hr Q8H AGUSTIN Administration Lactated Ringer's 1,000 mls @ 200 mls/hr 03/30/17 06:39 03/30/17 16:30 Lactated Ringer's IV 200 mls/hr .Q5H AGUSTIN Administration Lorazepam 0.5 mg 03/29/17 07:08 03/30/17 11:45 Ativan IVP 0.5 mg Q6H PRN Administration Anxiety Metoclopramide HCl 5 mg 03/29/17 12:00 03/30/17 17:16 Reglan IVP 5 mg Q6 AGUSTIN Administration Ondansetron HCl 4 mg 03/27/17 23:45 Zofran Inj IVP Q6H PRN Nausea/Vomiting Pantoprazole Sodium 40 mg 03/28/17 10:00 03/30/17 09:25 Protonix Inj IVP 40 mg DAILY AGUSTIN Administration - Patient Studies Lab Studies: Microbiology Studies 03/27/17 22:35 Blood Culture - Preliminary Blood NO GROWTH AFTER 48 HOURS 03/27/17 22:35 Blood Culture - Preliminary Blood NO GROWTH AFTER 48 HOURS 03/28/17 02:08 MRSA Culture (Admit) - Final Naris MRSA NOT DETECTED 03/28/17 01:35 Urine Culture - Final Urine,Clean Catch No Growth (<1,000 CFU/ML) Lab Studies 03/30/17 03/30/17 03/30/17 Range/Units 12:56 12:34 11:51 WBC (4.8-10.8) K/uL RBC (3.80-5.20) Mil/uL Hgb (11.0-16.0) g/dL Hct (34.0-47.0) % MCV (81.0-99.0) fL MCH (27.0-31.0) pg MCHC (33.0-37.0) g/dL RDW (11.5-14.5) % Plt Count (130-400) K/uL MPV (7.2-11.7) fL Neut % (Auto) (50.0-75.0) % Lymph % (Auto) (20.0-40.0) % Lassen % (Auto) (0.0-10.0) % Eos % (Auto) (0.0-4.0) % Baso % (Auto) (0.0-2.0) % Neut # (1.8-7.0) K/uL Lymph # (1.0-4.3) K/uL Lassen # (0.0-0.8) K/uL Eos # (0.0-0.7) K/uL Baso # (0.0-0.2) K/uL Neutrophils % (Manual) (50-75) % Band Neutrophils % (0-2) % Lymphocytes % (Manual) (20-40) % Monocytes % (Manual) (0-10) % Basophils % (Manual) (0-2) % Platelet Estimate (NORMAL) Hypochromasia (manual) Ovalocytes Puncture Site Rr pCO2 34 L (35-45) mm/Hg pO2 82 (80-100) mm/Hg HCO3 22.1 (21-28) mmol/L ABG pH 7.39 (7.35-7.45) ABG Total CO2 21.6 L (22-28) mmol/L ABG O2 Saturation 98.6 H (95-98) % ABG Base Excess -3.6 L (-2.0-3.0) mmol/L Daniel Test Pos ABG Potassium 3.6 (3.6-5.2) mmol/L A-a O2 Difference 89.0 mm/Hg Respiratory Index 1.1 Glucose 58 L (65-105) mg/dl Lactate 0.6 L (0.7-2.1) mmol/L Liter Flow 3.0 FiO2 30.0 % Sodium 143.0 (132-148) mmol/L Potassium (3.6-5.2) mmol/L Chloride 115.0 H (98-107) mmol/L Carbon Dioxide (22-30) mmol/L Anion Gap (10-20) BUN (7-17) mg/dL Creatinine (0.7-1.2) mg/dL Est GFR ( Amer) Est GFR (Non-Af Amer) POC Glucose (mg/dL) 219 H (65-110) mg/dL Random Glucose (65-105) mg/dL Calcium (8.6-10.4) mg/dl Phosphorus (2.5-4.5) mg/dL Magnesium (1.6-2.3) mg/dL Total Bilirubin (0.2-1.3) mg/dL AST (14-36) U/L ALT (9-52) U/L Alkaline Phosphatase (38-126) U/L Total Protein (6.3-8.3) g/dL Albumin (3.5-5.0) g/dL Globulin (2.2-3.9) gm/dL Albumin/Globulin Ratio (1.0-2.1) Lipase (23-300) U/L Arterial Blood Potassium 3.6 (3.6-5.2) mmol/L Urine Color Yellow (YELLOW) Urine Clarity Clear (Clear) Urine pH 5.0 (5.0-8.0) Ur Specific [place] 1.025 (1.003-1.030) Urine Protein Negative (NEGATIVE) mg/dL Urine Glucose (UA) 3+ H (Normal) mg/dL Urine Ketones 2+ H (NEGATIVE) mg/dL Urine Blood 2+ H (NEGATIVE) Urine Nitrate Negative (NEGATIVE) Urine Bilirubin Negative (NEGATIVE) Urine Urobilinogen Normal (0.2-1.0) mg/dL Ur Leukocyte Esterase Trace (Negative) [place]/uL Urine WBC (Auto) 4 (0-5) /hpf Urine RBC (Auto) 54 H (0-3) /hpf Ur Squamous Epith Cells < 1 (0-5) /hpf Gastric Occult Blood Positive H (NEGATIVE) 03/30/17 03/30/17 03/30/17 Range/Units 09:04 06:26 06:26 WBC 16.1 H (4.8-10.8) K/uL RBC 3.31 L (3.80-5.20) Mil/uL Hgb 9.5 L (11.0-16.0) g/dL Hct 27.7 L (34.0-47.0) % MCV 83.7 (81.0-99.0) fL MCH 28.7 (27.0-31.0) pg MCHC 34.3 (33.0-37.0) g/dL RDW 13.3 (11.5-14.5) % Plt Count 163 (130-400) K/uL MPV 9.1 (7.2-11.7) fL Neut % (Auto) 85.5 H (50.0-75.0) % Lymph % (Auto) 6.9 L (20.0-40.0) % [place] % (Auto) 7.3 (0.0-10.0) % Eos % (Auto) 0.0 (0.0-4.0) % Baso % (Auto) 0.3 (0.0-2.0) % Neut # 13.8 H (1.8-7.0) K/uL Lymph # 1.1 (1.0-4.3) K/uL [place] # 1.2 H (0.0-0.8) K/uL Eos # 0.0 (0.0-0.7) K/uL Baso # 0.0 (0.0-0.2) K/uL Neutrophils % (Manual) 83 H (50-75) % Band Neutrophils % 1 (0-2) % Lymphocytes % (Manual) 8 L (20-40) % Monocytes % (Manual) 7 (0-10) % Basophils % (Manual) 1 (0-2) % Platelet Estimate Normal (NORMAL) Hypochromasia (manual) Slight Ovalocytes Slight Puncture Site pCO2 (35-45) mm/Hg pO2 (80-100) mm/Hg HCO3 (21-28) mmol/L ABG pH (7.35-7.45) ABG Total CO2 (22-28) mmol/L ABG O2 Saturation (95-98) % ABG Base Excess (-2.0-3.0) mmol/L Daniel Test ABG Potassium (3.6-5.2) mmol/L A-a O2 Difference mm/Hg Respiratory Index Glucose (65-105) mg/dl Lactate (0.7-2.1) mmol/L Liter Flow FiO2 % Sodium 137 (132-148) mmol/L Potassium 3.3 L (3.6-5.2) mmol/L Chloride 106 (98-107) mmol/L Carbon Dioxide 26 (22-30) mmol/L Anion Gap 9 L (10-20) BUN 13 (7-17) mg/dL Creatinine 0.7 (0.7-1.2) mg/dL Est GFR ( Amer) > 60 Est GFR (Non-Af Amer) > 60 POC Glucose (mg/dL) (65-110) mg/dL Random Glucose 68 (65-105) mg/dL Calcium 7.6 L (8.6-10.4) mg/dl Phosphorus 2.1 L (2.5-4.5) mg/dL Magnesium 1.9 (1.6-2.3) mg/dL Total Bilirubin 0.7 (0.2-1.3) mg/dL AST 43 H D (14-36) U/L ALT 40 (9-52) U/L Alkaline Phosphatase 44 (38-126) U/L Total Protein 5.5 L (6.3-8.3) g/dL Albumin 2.4 L (3.5-5.0) g/dL Globulin 3.1 (2.2-3.9) gm/dL Albumin/Globulin Ratio 0.8 L (1.0-2.1) Lipase 64 (23-300) U/L Arterial Blood Potassium (3.6-5.2) mmol/L Urine Color (YELLOW) Urine Clarity (Clear) Urine pH (5.0-8.0) Ur Specific [place] (1.003-1.030) Urine Protein (NEGATIVE) mg/dL Urine Glucose (UA) (Normal) mg/dL Urine Ketones (NEGATIVE) mg/dL Urine Blood (NEGATIVE) Urine Nitrate (NEGATIVE) Urine Bilirubin (NEGATIVE) Urine Urobilinogen (0.2-1.0) mg/dL Ur Leukocyte Esterase (Negative) [place]/uL Urine WBC (Auto) (0-5) /hpf Urine RBC (Auto) (0-3) /hpf Ur Squamous Epith Cells (0-5) /hpf Gastric Occult Blood (NEGATIVE) Laboratory Results - last 24 hr 03/30/17 03/30/17 03/30/17 06:26 06:26 09:04 WBC 16.1 H RBC 3.31 L Hgb 9.5 L Hct 27.7 L MCV 83.7 MCH 28.7 MCHC 34.3 RDW 13.3 Plt Count 163 MPV 9.1 Neut % (Auto) 85.5 H Lymph % (Auto) 6.9 L [place] % (Auto) 7.3 Eos % (Auto) 0.0 Baso % (Auto) 0.3 Neut # 13.8 H Lymph # 1.1 [place] # 1.2 H Eos # 0.0 Baso # 0.0 Neutrophils % (Manual) 83 H Band Neutrophils % 1 Lymphocytes % (Manual) 8 L Monocytes % (Manual) 7 Basophils % (Manual) 1 Platelet Estimate Normal Hypochromasia (manual) Slight Ovalocytes Slight Puncture Site pCO2 pO2 HCO3 ABG pH ABG Total CO2 ABG O2 Saturation ABG Base Excess Daniel Test ABG Potassium A-a O2 Difference Respiratory Index Glucose Lactate Liter Flow FiO2 Sodium 137 Potassium 3.3 L Chloride 106 Carbon Dioxide 26 Anion Gap 9 L BUN 13 Creatinine 0.7 Est GFR ( Amer) > 60 Est GFR (Non-Af Amer) > 60 POC Glucose (mg/dL) Random Glucose 68 Calcium 7.6 L Phosphorus 2.1 L Magnesium 1.9 Total Bilirubin 0.7 AST 43 H D ALT 40 Alkaline Phosphatase 44 Total Protein 5.5 L Albumin 2.4 L Globulin 3.1 Albumin/Globulin Ratio 0.8 L Lipase 64 Arterial Blood Potassium Urine Color Urine Clarity Urine pH Ur Specific [place] Urine Protein Urine Glucose (UA) Urine Ketones Urine Blood Urine Nitrate Urine Bilirubin Urine Urobilinogen Ur Leukocyte Esterase Urine WBC (Auto) Urine RBC (Auto) Ur Squamous Epith Cells Gastric Occult Blood 03/30/17 03/30/17 03/30/17 11:51 12:34 12:56 WBC RBC Hgb Hct MCV MCH MCHC RDW Plt Count MPV Neut % (Auto) Lymph % (Auto) [place] % (Auto) Eos % (Auto) Baso % (Auto) Neut # Lymph # [place] # Eos # Baso # Neutrophils % (Manual) Band Neutrophils % Lymphocytes % (Manual) Monocytes % (Manual) Basophils % (Manual) Platelet Estimate Hypochromasia (manual) Ovalocytes Puncture Site Rr pCO2 34 L pO2 82 HCO3 22.1 ABG pH 7.39 ABG Total CO2 21.6 L ABG O2 Saturation 98.6 H ABG Base Excess -3.6 L Daniel Test Pos ABG Potassium 3.6 A-a O2 Difference 89.0 Respiratory Index 1.1 Glucose 58 L Lactate 0.6 L Liter Flow 3.0 FiO2 30.0 Sodium 143.0 Potassium Chloride 115.0 H Carbon Dioxide Anion Gap BUN Creatinine Est GFR ( Amer) Est GFR (Non-Af Amer) POC Glucose (mg/dL) 219 H Random Glucose Calcium Phosphorus Magnesium Total Bilirubin AST ALT Alkaline Phosphatase Total Protein Albumin Globulin Albumin/Globulin Ratio Lipase Arterial Blood Potassium 3.6 Urine Color Yellow Urine Clarity Clear Urine pH 5.0 Ur Specific [place] 1.025 Urine Protein Negative Urine Glucose (UA) 3+ H Urine Ketones 2+ H Urine Blood 2+ H Urine Nitrate Negative Urine Bilirubin Negative Urine Urobilinogen Normal Ur Leukocyte Esterase Trace Urine WBC (Auto) 4 Urine RBC (Auto) 54 H Ur Squamous Epith Cells < 1 Gastric Occult Blood Positive H EKG/Cardiology Studies: Cardiology / EKG Studies 03/30/17 08:00 EKG [ELECTROCARDIOGRAM] Routine Comment: Mode Of Transportation: Reason For Exam: re-evaluate QTC Critical Care Progress Note - Nutrition Nutrition: Nutrition Category Date Time Status NPO Diet [DIET] Diets 03/29/17 Lunch Active Attending/Attestation - Attestation I have personally seen and examined this patient.: Yes I have fully participated in the care of the patient.: Yes I have reviewed all pertinent clinical information: Yes Notes (Text): Assessment Tachypnea and tachycardia likely related to anxious behaviour, patient is still clinically dry ivf increased to 200ml/hr, continued abx, pt would need definitive diagnosis of duodenal obstruction mechanical or functional will d/w GI. Trial of antivan of increased HR/RR.
[2017-03-30 08:16] LABS: BANDS 1 % (0-2); BASOPHIL 1 % (0-2); HYPOCHROMIC SLIGHT; LYMPHOCYTE 8 % (20-40); MONOCYTE 7 % (0-10); NEUTROPHIL 83 % (50-75); PLATELET ESTIMATE NORMAL (NORMAL); TOTAL CELLS COUNTED 100
[2017-03-30 08:17] LABS: OVALOCYTES SLIGHT
[2017-03-30] MEDS ORDERED: Influenza Vaccine 60 mcg/0.5 mL SYR (4YR UP) IM ONE (10:00)
[2017-03-30] MEDS ORDERED: Pneumococcal 23-Valent Vaccine IM ONE (10:00)
[2017-03-30 11:54] LABS: ABG ALLEN TEST POS; ARTERIAL BLOOD GAS HCO3 22.1 mmol/L (21-28); ARTERIAL BLOOD GAS O2 SAT 98.6 % (95-98); ARTERIAL BLOOD GAS PCO2 34 mm/Hg (35-45); ARTERIAL BLOOD GAS PH 7.39 (7.35-7.45); ARTERIAL BLOOD GAS PO2 82 mm/Hg (80-100); ARTERIAL BLOOD GAS TCO2 21.6 mmol/L (22-28)
[2017-03-30] MEDS ORDERED: Dextrose 50% SYRINGE Inj (50 ml) IV STA (11:58)
[2017-03-30] MEDS ORDERED: Dextrose 50% SYRINGE Inj (50 ml) IVP PRN (11:59)
[2017-03-30] MEDS ORDERED: Glucagon Recombinant 1 mg Inj IM PRN (11:59)
[2017-03-30] MEDS ORDERED: Dextrose 50% VIAL Inj (50 ml) IV ONE (12:02)
[2017-03-30 13:15] LABS: SQUAMOUS EPITHIAL < 1 /hpf (0-5); URINE BILIRUBIN NEGATIVE (NEGATIVE); URINE BLOOD 2+ (NEGATIVE); URINE CLARITY Clear (Clear); URINE COLOR Yellow (YELLOW); URINE GLUCOSE (UA) 3+ mg/dL (Normal); URINE LEUKOCYTE ESTERASE TRACE Leu/uL (Negative); URINE PROTEIN NEGATIVE (NEGATIVE); URINE UROBILINOGEN NORMAL mg/dL (0.2-1.0)
[2017-03-30 13:32] LABS: OCCULT BLOOD GASTRIC POSITIVE (NEGATIVE)
--- NOTE | 2017-03-30 13:50 | RAD ---
PROCEDURE: CHEST RADIOGRAPH, 1 VIEW HISTORY: r/o aspiration pna COMPARISON: 03/29/2017 FINDINGS: LUNGS: No clear infiltrate. Left lung base partially obscured by pleural effusion. PLEURA: Moderate left pleural effusion. No right pleural effusion. No pneumothorax. CARDIOVASCULAR: Normal heart size. NG tube grossly unchanged. Left PICC catheter extends to right atrium. OSSEOUS STRUCTURES: No significant abnormalities. VISUALIZED UPPER ABDOMEN: Normal. OTHER FINDINGS: None. IMPRESSION: Moderate left pleural effusion. No definite infiltrate.
--- NOTE | 2017-03-30 13:51 | RAD ---
HISTORY: monitor response NGT output COMPARISON: No prior. FINDINGS: BOWEL: Normal. No obstruction. No free air. NG tube extends to left upper quadrant of abdomen. BONES: Normal. OTHER FINDINGS: None. IMPRESSION: Normal bowel gas pattern.
--- NOTE | 2017-03-30 14:04 | PN ---
DATE: LOCATION: ICU 4. SUBJECTIVE: This is a 36 years old female seen and examined in rounds without significant clinical changes. Case discussed with ICU staff. Today's labs showed leukocytosis dropped to 16.1 with hemoglobin dropped to 9.5, hematocrit 27.7 with normal platelet count and normal ABGs with low blood glucose level 58 and lactic acid corrected 0.6 and then subsequent increase of blood glucose level to 219 with low calcium 7.6, low phosphorus 2.1, low albumin 2.4 with low total protein of 5.5. Official report of today's radiology study results still pending. PHYSICAL EXAMINATION: GENERAL: A 36 years old female. VITAL SIGNS: With low-grade temperature of 99.7, pulse of 122, blood pressure 108/62. HEENT: Showed pale, dry oral mucous membrane. Nonicteric sclerae. LUNGS: Few scattered crepitation. Decreased air entry at bases. HEART: Positive S1 and S2 with increased rate. ABDOMEN: Soft with [id number] distention. No mass or organomegaly with hypoactive bowel sounds. EXTREMITIES: With right lower extremity edematous changes. No clubbing or cyanosis. NEUROLOGIC: No reported neurological deficits. IMPRESSION: 1. Peptic ulcer disease with possible gastroparesis. 2. Possible duodenal partial obstruction. 3. Known history of psychiatric disorder. 4. Malnutrition with hypoalbuminemia and hypoproteinemia. 5. Electrolyte imbalance secondary to above. SUGGESTIONS: 1. Continue current management. 2. Surgical reevaluation. 3. Flat and upright abdominal x-ray. William Michael MD
[2017-03-31] MEDS: Lactated Ringer's 1,000 ML IV SCH ×3 (00:22→07:30)
[2017-03-31] MEDS: Piperacill/Tazo 3.375gm in Dex 3.375 GM/50 ML BAG IVPB SCH ×3 (01:51→17:49)
[2017-03-31] MEDS: metroNIDAZOLE IV 500 mg/100 ml 500 MG/100 ML BAG IVPB SCH ×3 (04:59→21:27)
--- NOTE | 2017-03-31 07:00 | CP.CCUPN ---
<LuisPari - Last Filed: 03/31/17 15:39> CCU Subjective - Physician Review Events Since Last Encounter (Free Text): 03/31/17 07:05 Overnight, Patient was given haldol 1mg, and patient had a brown, pasty BM. Ativan 0.5mg IV was given. Subjective (Free Text): 03/29/17 07:20 Critical Care Progress note for Dr. Granger Patient seen and examined at bedside. HR 112, BP 135/80, sleeping. Patient had 4 soft brown BM overnight. No fevers. Patient continues to express pain with noise with bowel movements. Per nursing, patient can say agua (water), "poo poo, " and indicate for pain. One witnessed event of patient saying agua. Patient is mainly non-verbal CCU Objective - Vital Signs / Intake & Output Vital Signs (Last 4 hours): Vital Signs Temp Pulse Resp BP Pulse Ox 03/31/17 06:00 147 H 53 H 03/31/17 05:57 153 H 56 H 140/99 H 03/31/17 04:57 118 H 27 H 103/70 100 03/31/17 04:00 98.5 F 131 H 51 H 98 03/31/17 03:58 136 H 46 H 122/86 97 03/31/17 03:00 116 H 30 H 99 Intake and Output (Last 8hrs): Intake & Output 03/30/17 03/30/17 03/31/17 14:59 22:59 06:59 Intake Total 1500 2000 2250 Output Total 320 330 540 Balance 1180 1670 1710 Weight 146 lb Intake: Intake, IV Amount 1500 2000 2250 Left Distal Port PICC 250 250 Left PICC 1500 1750 2000 Oral 0 Output: Gastric Amount 320 160 150 Right Nares 320 160 150 Urine 170 390 Urethral (Tovar) 170 390 Emesis 0 0 Other: # Bowel Movements 1 0 1 - Physical Exam Head: Positive for: Atraumatic, Normocephalic. Negative for: Tenderness Pupils: Positive for: PERRL Extroacular Muscles: Positive for: EOMI Mouth: Positive for: Moist Mucous Membranes. Negative for: Dry, Drooling Nose (External): Positive for: Other (NGT in place) Nose (Internal): Positive for: Normal Inspection, Moist, Other (NGT in place) Neck: Positive for: Normal Range of Motion. Negative for: JVD, Lymphadenopathy Respiratory/Chest: Positive for: Clear to Auscultation. Negative for: Respiratory Distress, Accessory Muscle Use Cardiovascular: Positive for: Regular Rate and Rhythm, Normal S1, S2 Abdomen: Positive for: Tenderness, Guarding (slight guarding). Negative for: Distention Upper Extremity: Positive for: Normal Inspection, Normal ROM, Capillary Refill < 2s. Negative for: Edema Lower Extremity: Positive for: Normal Inspection. Negative for: Edema Neurological: Positive for: Other (patient does not speak). Negative for: Speech Normal Skin: Positive for: Warm, Pale Psychiatric: Positive for: Alert - Medications Active Medications: Active Medications Generic Name Dose Route Start Last Admin Trade Name Freq PRN Reason Stop Dose Admin Acetaminophen 325 mg 03/29/17 07:57 03/30/17 08:15 Tylenol 325 Mg Supp HI 325 mg Q4 PRN Administration Fever >100.4 F Haloperidol Lactate 1 mg 03/29/17 18:47 03/30/17 19:56 Haldol IVP 1 mg BID PRN Administration Agitation Metronidazole 500 mg in 100 mls @ 100 mls/hr 03/27/17 23:45 03/31/17 04:59 Flagyl IVPB 100 mls/hr Q8 AGUSTIN Administration Piperacillin Sod/Tazobactam Sod 3.375 gm in 50 mls @ 100 mls/hr 03/28/17 02: 30 03/31/17 01:51 Zosyn 3.375 Gm Iv Premix IVPB 100 mls/hr Q8H AGUSTIN Administration Lactated Ringer's 1,000 mls @ 250 mls/hr 03/30/17 19:02 03/31/17 04:27 Lactated Ringer's IV 250 mls/hr .Q4H AGUSTIN Administration Lorazepam 0.5 mg 03/29/17 07:08 03/31/17 04:27 Ativan IVP 0.5 mg Q6H PRN Administration Anxiety Metoclopramide HCl 5 mg 03/29/17 12:00 03/31/17 05:00 Reglan IVP 5 mg Q6 AGUSTIN Administration Ondansetron HCl 4 mg 03/27/17 23:45 Zofran Inj IVP Q6H PRN Nausea/Vomiting Pantoprazole Sodium 40 mg 03/28/17 10:00 03/30/17 09:25 Protonix Inj IVP 40 mg DAILY AGUSTIN Administration - Patient Studies Lab Studies: Microbiology Studies 03/27/17 22:35 Blood Culture - Preliminary Blood NO GROWTH AFTER 48 HOURS 03/27/17 22:35 Blood Culture - Preliminary Blood NO GROWTH AFTER 48 HOURS Lab Studies 03/30/17 03/30/17 03/30/17 Range/Units 12:56 12:34 11:51 Neutrophils % (Manual) (50-75) % Band Neutrophils % (0-2) % Lymphocytes % (Manual) (20-40) % Monocytes % (Manual) (0-10) % Basophils % (Manual) (0-2) % Platelet Estimate (NORMAL) Hypochromasia (manual) Ovalocytes Puncture Site Rr pCO2 34 L (35-45) mm/Hg pO2 82 (80-100) mm/Hg HCO3 22.1 (21-28) mmol/L ABG pH 7.39 (7.35-7.45) ABG Total CO2 21.6 L (22-28) mmol/L ABG O2 Saturation 98.6 H (95-98) % ABG Base Excess -3.6 L (-2.0-3.0) mmol/L Daniel Test Pos ABG Potassium 3.6 (3.6-5.2) mmol/L A-a O2 Difference 89.0 mm/Hg Respiratory Index 1.1 Sodium 143.0 (132-148) mmol/l Chloride 115.0 H (98-107) mmol/L Glucose 58 L (65-105) mg/dl Lactate 0.6 L (0.7-2.1) mmol/L Liter Flow 3.0 FiO2 30.0 % POC Glucose (mg/dL) 219 H (65-110) mg/dL Lipase (23-300) U/L Arterial Blood Potassium 3.6 (3.6-5.2) mmol/L Urine Color Yellow (YELLOW) Urine Clarity Clear (Clear) Urine pH 5.0 (5.0-8.0) Ur Specific [place] 1.025 (1.003-1.030) Urine Protein Negative (NEGATIVE) mg/dL Urine Glucose (UA) 3+ H (Normal) mg/dL Urine Ketones 2+ H (NEGATIVE) mg/dL Urine Blood 2+ H (NEGATIVE) Urine Nitrate Negative (NEGATIVE) Urine Bilirubin Negative (NEGATIVE) Urine Urobilinogen Normal (0.2-1.0) mg/dL Ur Leukocyte Esterase Trace (Negative) [place]/uL Urine WBC (Auto) 4 (0-5) /hpf Urine RBC (Auto) 54 H (0-3) /hpf Ur Squamous Epith Cells < 1 (0-5) /hpf Gastric Occult Blood Positive H (NEGATIVE) 03/30/17 03/30/17 Range/Units 09:04 06:26 Neutrophils % (Manual) 83 H (50-75) % Band Neutrophils % 1 (0-2) % Lymphocytes % (Manual) 8 L (20-40) % Monocytes % (Manual) 7 (0-10) % Basophils % (Manual) 1 (0-2) % Platelet Estimate Normal (NORMAL) Hypochromasia (manual) Slight Ovalocytes Slight Puncture Site pCO2 (35-45) mm/Hg pO2 (80-100) mm/Hg HCO3 (21-28) mmol/L ABG pH (7.35-7.45) ABG Total CO2 (22-28) mmol/L ABG O2 Saturation (95-98) % ABG Base Excess (-2.0-3.0) mmol/L Daniel Test ABG Potassium (3.6-5.2) mmol/L A-a O2 Difference mm/Hg Respiratory Index Sodium (132-148) mmol/l Chloride (98-107) mmol/L Glucose (65-105) mg/dl Lactate (0.7-2.1) mmol/L Liter Flow FiO2 % POC Glucose (mg/dL) (65-110) mg/dL Lipase 64 (23-300) U/L Arterial Blood Potassium (3.6-5.2) mmol/L Urine Color (YELLOW) Urine Clarity (Clear) Urine pH (5.0-8.0) Ur Specific [place] (1.003-1.030) Urine Protein (NEGATIVE) mg/dL Urine Glucose (UA) (Normal) mg/dL Urine Ketones (NEGATIVE) mg/dL Urine Blood (NEGATIVE) Urine Nitrate (NEGATIVE) Urine Bilirubin (NEGATIVE) Urine Urobilinogen (0.2-1.0) mg/dL Ur Leukocyte Esterase (Negative) [place]/uL Urine WBC (Auto) (0-5) /hpf Urine RBC (Auto) (0-3) /hpf Ur Squamous Epith Cells (0-5) /hpf Gastric Occult Blood (NEGATIVE) Laboratory Results - last 24 hr 03/30/17 03/30/17 03/30/17 06:26 09:04 11:51 Neutrophils % (Manual) 83 H Band Neutrophils % 1 Lymphocytes % (Manual) 8 L Monocytes % (Manual) 7 Basophils % (Manual) 1 Platelet Estimate Normal Hypochromasia (manual) Slight Ovalocytes Slight Puncture Site Rr pCO2 34 L pO2 82 HCO3 22.1 ABG pH 7.39 ABG Total CO2 21.6 L ABG O2 Saturation 98.6 H ABG Base Excess -3.6 L Daniel Test Pos ABG Potassium 3.6 A-a O2 Difference 89.0 Respiratory Index 1.1 Sodium 143.0 Chloride 115.0 H Glucose 58 L Lactate 0.6 L Liter Flow 3.0 FiO2 30.0 POC Glucose (mg/dL) Lipase 64 Arterial Blood Potassium 3.6 Urine Color Urine Clarity Urine pH Ur Specific [place] Urine Protein Urine Glucose (UA) Urine Ketones Urine Blood Urine Nitrate Urine Bilirubin Urine Urobilinogen Ur Leukocyte Esterase Urine WBC (Auto) Urine RBC (Auto) Ur Squamous Epith Cells Gastric Occult Blood 03/30/17 03/30/17 12:34 12:56 Neutrophils % (Manual) Band Neutrophils % Lymphocytes % (Manual) Monocytes % (Manual) Basophils % (Manual) Platelet Estimate Hypochromasia (manual) Ovalocytes Puncture Site pCO2 pO2 HCO3 ABG pH ABG Total CO2 ABG O2 Saturation ABG Base Excess Daniel Test ABG Potassium A-a O2 Difference Respiratory Index Sodium Chloride Glucose Lactate Liter Flow FiO2 POC Glucose (mg/dL) 219 H Lipase Arterial Blood Potassium Urine Color Yellow Urine Clarity Clear Urine pH 5.0 Ur Specific [place] 1.025 Urine Protein Negative Urine Glucose (UA) 3+ H Urine Ketones 2+ H Urine Blood 2+ H Urine Nitrate Negative Urine Bilirubin Negative Urine Urobilinogen Normal Ur Leukocyte Esterase Trace Urine WBC (Auto) 4 Urine RBC (Auto) 54 H Ur Squamous Epith Cells < 1 Gastric Occult Blood Positive H EKG/Cardiology Studies: Cardiology / EKG Studies 03/30/17 08:00 EKG [ELECTROCARDIOGRAM] Routine Comment: Mode Of Transportation: Reason For Exam: re-evaluate QTC Fingerstick Blood Sugar Results: 219 Critical Care Progress Note - Nutrition Nutrition: Nutrition Category Date Time Status NPO Diet [DIET] Diets 03/29/17 Lunch Active Assessment/Plan - Assessment and Plan (Free Text) Assessment: 36 y/o nonverbal female admitted with diarrhea,tachycardia,elevated WBC count , lipase and lactic acid, found to have severe gastric outlet obstruction with high NGT output. GI Consult Dr. Harmon to have EGD today. Plan Neuro: hx of Schizophrenia Pain: Dilaudid 0.5 mg Q6H PRN Sedation: 1mg Haldol IVP Q12H 0.5mg Ativan Q6H PRN discontinued 03/30 Nausea: Zofran 4mg IVP Q6H PRN Psych: Psych Consult Dr. Mccloud: f/u 03/30 EKG to evaluate QTc Quetiapine (Seroquel) 200mg POBID, held d/t NGT on IWS Escitalopram (Lexapro) 10mg PO QD, held d/t NGT on IWS Cardio: 03/27 EKG Sinus tachycardia 138 bpm f/u 03/30 EKG Pulm: 03/27 AB.22 03/27 CXR in infiltrates, no active pulmonary disease 03/30 CXR: poor inspiratory effort Endo: 03/28 Hemoglobin A1c 5.3 GI: 03/28 Lipase 8456 03/29 Lipase 322 03/30 Lipase 64 03/28 00:18 CT abdomen/pelvis with IV contrast: gastric distention 32cm and distention of the first and third and second portion of duodenum. Transition and complete decompression of third portion of duodenum. pancreas unremarkable, spleen unremarkable, partially contracted gallbladder. duodenal obstruction v delayed emptying v gastroparesis. Fluid distention of distal esophagus 3.3cm representing gastric emptying v gastroesophageal reflux. f/u 03/[address] abdomen/pelvis with IV contrast: significantly dilated stomach with retained food and fluid. significantly diminished prior to earlier CT 03/28. No free intraperitoneal gas identified. contrast noted in Gallbladder. 03/28 FOBT positive 03/[address] connected to suction. 03/28 NGT OP since insertion: 2600cc 03/29 2350 03/30 NGT 1160 03/31 NGT 630 f/u Strict I/Os General Surgery Consult: Dr. Woodruff 03/[address] Harmon to have EGD today. 03/[address] Harmon, place patient on Reglan to help with motility. 03/30 Abdominal xray/obstructive series: Reglan 5mg IVP Q6H Renal: 03/27 UA: proteinuria urine output since insertion 360 average hourly output 60cc/hr f/u Strict I/Os Potassium Phosphorus 15mmole @63cc/hr : 03/27 UA: hazy, specific gravity >1.060, 3+ urine protein, Urine bacteria, Urine Yeast Ceftriaxone 1gm IVPB QD 03/30 Urine Cx negative Heme: H/H: 03/27 14.6/44.7 03/28 12.9/38.5 03/29 11.2/33.0 03/30 9.5/27.7 03/31 9.4/27.5 MSK: Patient can walk per sister, but is dizzy so hasn't walked PT/OT eval and treat when stable ID: Code sepsis 03/28 02:20 03/28 lactate 9.7 03/28 lactate 01:05 9.2 03/28 lactate 06:15 1.3 03/27 WBC 26.7 03/28 WBC 30.2 03/29 WBC 21.3 03/30 WBC 16.1 03/31 WBC 15.7 f/u AM CBC 03/30 blood Culture x 2, negative 03/30 MRSA screen negative 03/30 Urine Cx negative Zosyn 500mg IVPB Q8H Tylenol 325mg HI Q4H PRN 03/29 Neutrophils 75, Bands 9 03/30 Neutrophils 83, Bands 1 Flagyl 500mg IVPB Q8H Zosyn 3.375gm in 50cc IVPB Q8H Prophylaxis: DVT: Lovenox 50 mg SC GI: Pepcid 20mg IVP Q12H Zofran 4mg IVP Q6H PRN Nausea Tylenol 325mg HI Q4H PRN Fluids: D5W @ 75cc/hr 03/28 PICC line insertion by Dr. Nguyen at bedside, confirmed placement with XRAY discussed with Dr. Najma Smith DO PGY1 - Date & Time Date: 03/31/17 Time: 07:30 <Najma Granger - Last Filed: 04/03/17 11:32> CCU Objective - Vital Signs / Intake & Output Vital Signs (Last 4 hours): Vital Signs Temp Pulse Resp BP Pulse Ox 04/03/17 11:00 135 H 28 H 106/65 100 04/03/17 10:00 129 H 22 108/75 100 04/03/17 09:00 125 H 24 90/42 L 100 04/03/17 08:00 98.2 F 128 H 26 H 99/60 L 100 Intake and Output (Last 8hrs): Intake & Output 04/02/17 04/03/17 04/03/17 22:59 06:59 14:59 Intake Total 1326 1336 835 Output Total 1350 1690 760 Balance -24 -354 75 Weight 147 lb Intake: Intake, IV Amount 1326 1336 835 Left Distal Port PICC 326 336 210 Left PICC #2 625 Left Proximal Port PICC 375 1000 625 Output: Urine 1350 1690 760 Urethral (Tovar) 1350 1690 760 - Medications Active Medications: Active Medications Generic Name Dose Route Start Last Admin Trade Name Freq PRN Reason Stop Dose Admin Acetaminophen 325 mg 03/29/17 07:57 03/30/17 08:15 Tylenol 325 Mg Supp HI 325 mg Q4 PRN Administration Fever >100.4 F Haloperidol Lactate 1 mg 03/29/17 18:47 04/03/17 10:34 Haldol IVP 1 mg BID PRN Administration Agitation Metronidazole 500 mg in 100 mls @ 100 mls/hr 03/27/17 23:45 04/03/17 05:04 Flagyl IVPB 100 mls/hr Q8 AGUSTIN Administration Piperacillin Sod/Tazobactam Sod 3.375 gm in 50 mls @ 100 mls/hr 03/28/17 02: 30 04/03/17 09:34 Zosyn 3.375 Gm Iv Premix IVPB 100 mls/hr Q8H AGUSTIN Administration Potassium Chloride 20 meq/ 1,010 mls @ 125 mls/hr 04/02/17 11:00 04/03/17 02: 25 Dextrose/Sodium Chloride IV Not Given .Q8H5M AGUSTIN Parenteral Electrolytes 20 ml/ 1,051.1 mls @ 42 mls/hr 04/02/17 18:00 18:40 Potassium Chloride 40 meq/ IV 04/03/17 18:01 42 mls/hr Multivitamins/Vitamin C 10 ml/ .Q24H AGUSTIN Administration Chromium/Copper/Manganese/ Zinc 1 ml/ Insulin Human Regular 10 unit/ Amino Acids Sodium Chloride 35 meq/ 1,051.0052 mls @ 42 mls/hr 04/03/17 18:00 Potassium Chloride 30 meq/ IV Magnesium Sulfate 6 meq/ .Q24H AGUSTIN Calcium Gluconate 4.5 meq/ Potassium Phosphate 15 mmole/ Insulin Human Regular 10 unit/ Chromium/Copper/Manganese/ Zinc 1 ml/ Multivitamins/ Vitamin C 10 ml/ Amino Acids Lorazepam 0.5 mg 04/01/17 16:08 04/03/17 05:09 Ativan IVP 0.5 mg Q3H PRN Administration Anxiety Morphine Sulfate 2 mg 04/02/17 21:29 04/03/17 08:30 Morphine IVP 2 mg Q4 PRN Administration Pain, moderate (4-7) Morphine Sulfate 4 mg 04/02/17 21:45 Morphine IVP Q4 PRN Pain, severe (8-10) Ondansetron HCl 4 mg 03/27/17 23:45 Zofran Inj IVP Q6H PRN Nausea/Vomiting Pantoprazole Sodium 40 mg 04/02/17 10:00 04/03/17 09:34 Protonix Inj IVP 40 mg DAILY AGUSTIN Administration - Patient Studies Lab Studies: Microbiology Studies 03/27/17 22:35 Blood Culture - Final Blood NO GROWTH AFTER 5 DAYS Gram Stain - Final TEST NOT PERFORMED 03/27/17 22:35 Blood Culture - Final Blood NO GROWTH AFTER 5 DAYS Gram Stain - Final TEST NOT PERFORMED Lab Studies 04/03/17 04/03/17 04/03/17 Range/Units 06:51 06:50 05:40 WBC 17.6 H (4.8-10.8) K/uL RBC 3.46 L (3.80-5.20) Mil/uL Hgb 9.8 L (11.0-16.0) g/dL Hct 28.8 L (34.0-47.0) % MCV 83.1 (81.0-99.0) fL MCH 28.2 (27.0-31.0) pg MCHC 33.9 (33.0-37.0) g/dL RDW 13.4 (11.5-14.5) % Plt Count 314 (130-400) K/uL MPV 8.5 (7.2-11.7) fL Neut % (Auto) 76.3 H (50.0-75.0) % Lymph % (Auto) 9.5 L (20.0-40.0) % [place] % (Auto) 11.7 H (0.0-10.0) % Eos % (Auto) 2.2 (0.0-4.0) % Baso % (Auto) 0.3 (0.0-2.0) % Neut # 13.4 H (1.8-7.0) K/uL Lymph # 1.7 (1.0-4.3) K/uL [place] # 2.1 H (0.0-0.8) K/uL Eos # 0.4 (0.0-0.7) K/uL Baso # 0.0 (0.0-0.2) K/uL Neutrophils % (Manual) 76 H (50-75) % Band Neutrophils % 1 (0-2) % Lymphocytes % (Manual) 10 L (20-40) % Monocytes % (Manual) 11 H (0-10) % Eosinophils % (Manual) 2 (0-4) % Platelet Estimate Normal (NORMAL) RBC Morphology Normal Sodium 129 L (132-148) mmol/L Potassium 4.2 (3.6-5.2) mmol/L Chloride 96 L (98-107) mmol/L Carbon Dioxide 28 (22-30) mmol/L Anion Gap 9 L (10-20) BUN 3 L (7-17) mg/dL Creatinine 0.5 L (0.7-1.2) mg/dL Est GFR ( Amer) > 60 Est GFR (Non-Af Amer) > 60 POC Glucose (mg/dL) 107 (65-110) mg/dL Random Glucose 100 (65-105) mg/dL Calcium 7.9 L (8.6-10.4) mg/dl Phosphorus 2.0 L (2.5-4.5) mg/dL Magnesium 1.8 (1.6-2.3) mg/dL Total Bilirubin 0.6 (0.2-1.3) mg/dL AST 18 (14-36) U/L ALT 26 (9-52) U/L Alkaline Phosphatase 72 (38-126) U/L Total Protein 6.0 L (6.3-8.3) g/dL Albumin 2.8 L (3.5-5.0) g/dL Globulin 3.2 (2.2-3.9) gm/dL Albumin/Globulin Ratio 0.9 L (1.0-2.1) 04/02/17 04/02/17 04/02/17 Range/Units 23:48 17:54 11:39 WBC (4.8-10.8) K/uL RBC (3.80-5.20) Mil/uL Hgb (11.0-16.0) g/dL Hct (34.0-47.0) % MCV (81.0-99.0) fL MCH (27.0-31.0) pg MCHC (33.0-37.0) g/dL RDW (11.5-14.5) % Plt Count (130-400) K/uL MPV (7.2-11.7) fL Neut % (Auto) (50.0-75.0) % Lymph % (Auto) (20.0-40.0) % [place] % (Auto) (0.0-10.0) % Eos % (Auto) (0.0-4.0) % Baso % (Auto) (0.0-2.0) % Neut # (1.8-7.0) K/uL Lymph # (1.0-4.3) K/uL [place] # (0.0-0.8) K/uL Eos # (0.0-0.7) K/uL Baso # (0.0-0.2) K/uL Neutrophils % (Manual) (50-75) % Band Neutrophils % (0-2) % Lymphocytes % (Manual) (20-40) % Monocytes % (Manual) (0-10) % Eosinophils % (Manual) (0-4) % Platelet Estimate (NORMAL) RBC Morphology Sodium (132-148) mmol/L Potassium (3.6-5.2) mmol/L Chloride (98-107) mmol/L Carbon Dioxide (22-30) mmol/L Anion Gap (10-20) BUN (7-17) mg/dL Creatinine (0.7-1.2) mg/dL Est GFR ( Amer) Est GFR (Non-Af Amer) POC Glucose (mg/dL) 104 91 110 (65-110) mg/dL Random Glucose (65-105) mg/dL Calcium (8.6-10.4) mg/dl Phosphorus (2.5-4.5) mg/dL Magnesium (1.6-2.3) mg/dL Total Bilirubin (0.2-1.3) mg/dL AST (14-36) U/L ALT (9-52) U/L Alkaline Phosphatase (38-126) U/L Total Protein (6.3-8.3) g/dL Albumin (3.5-5.0) g/dL Globulin (2.2-3.9) gm/dL Albumin/Globulin Ratio (1.0-2.1) Laboratory Results - last 24 hr 04/02/17 04/02/17 04/02/17 11:39 17:54 23:48 WBC RBC Hgb Hct MCV MCH MCHC RDW Plt Count MPV Neut % (Auto) Lymph % (Auto) [place] % (Auto) Eos % (Auto) Baso % (Auto) Neut # Lymph # [place] # Eos # Baso # Neutrophils % (Manual) Band Neutrophils % Lymphocytes % (Manual) Monocytes % (Manual) Eosinophils % (Manual) Platelet Estimate RBC Morphology Sodium Potassium Chloride Carbon Dioxide Anion Gap BUN Creatinine Est GFR ( Amer) Est GFR (Non-Af Amer) POC Glucose (mg/dL) 110 91 104 Random Glucose Calcium Phosphorus Magnesium Total Bilirubin AST ALT Alkaline Phosphatase Total Protein Albumin Globulin Albumin/Globulin Ratio 04/03/17 04/03/17 04/03/17 05:40 06:50 06:51 WBC 17.6 H RBC 3.46 L Hgb 9.8 L Hct 28.8 L MCV 83.1 MCH 28.2 MCHC 33.9 RDW 13.4 Plt Count 314 MPV 8.5 Neut % (Auto) 76.3 H Lymph % (Auto) 9.5 L [place] % (Auto) 11.7 H Eos % (Auto) 2.2 Baso % (Auto) 0.3 Neut # 13.4 H Lymph # 1.7 [place] # 2.1 H Eos # 0.4 Baso # 0.0 Neutrophils % (Manual) 76 H Band Neutrophils % 1 Lymphocytes % (Manual) 10 L Monocytes % (Manual) 11 H Eosinophils % (Manual) 2 Platelet Estimate Normal RBC Morphology Normal Sodium 129 L Potassium 4.2 Chloride 96 L Carbon Dioxide 28 Anion Gap 9 L BUN 3 L Creatinine 0.5 L Est GFR ( Amer) > 60 Est GFR (Non-Af Amer) > 60 POC Glucose (mg/dL) 107 Random Glucose 100 Calcium 7.9 L Phosphorus 2.0 L Magnesium 1.8 Total Bilirubin 0.6 AST 18 ALT 26 Alkaline Phosphatase 72 Total Protein 6.0 L Albumin 2.8 L Globulin 3.2 Albumin/Globulin Ratio 0.9 L Critical Care Progress Note - Nutrition Nutrition: Nutrition Category Date Time Status NPO Diet [DIET] Diets 03/29/17 Lunch Active Assessment/Plan - Assessment and Plan (Free Text) Plan: Above resident note reviewed and verified. Patient with solid concretions in stimach 2nd possible long accumulation of stomach fluids. -continue curerent management -aspiration precautions
[2017-03-31 07:05] LABS: ALBUMIN 2.4 g/dL (3.5-5.0); ALT/SGPT 27 U/L (9-52); AST/SGOT 28 U/L (14-36); BLOOD UREA NITROGEN 8 mg/dL (7-17); CALCIUM 7.5 mg/dl (8.6-10.4); GFR AFRICAN-AMERICAN > 60; GFR NON-AFRICAN AMERICAN > 60
[2017-03-31 07:13] LABS: BASO % 0.2 % (0.0-2.0); EOS # 0.1 K/uL (0.0-0.7); EOS % 0.9 % (0.0-4.0); HEMOGLOBIN 9.4 g/dL (11.0-16.0); LYMPH # 1.6 K/uL (1.0-4.3); LYMPH % 10.2 % (20.0-40.0); MEAN CELL VOLUME 83.9 fL (81.0-99.0); MEAN CORPUSCULAR HEMOGLOBIN 28.7 pg (27.0-31.0); MEAN CORPUSCULAR HGB CONC 34.2 g/dL (33.0-37.0); MEAN PLATELET VOLUME 9.3 fL (7.2-11.7); MONO # 1.5 K/uL (0.0-0.8); MONO % 9.7 % (0.0-10.0); NEUT # 12.4 K/uL (1.8-7.0); RBC 3.28 Mil/uL (3.80-5.20); RED CELL DISTRIBUTION WIDTH 13.5 % (11.5-14.5); WHITE BLOOD COUNT 15.7 K/uL (4.8-10.8)
--- NOTE | 2017-03-31 07:43 | CP.PCM.PN ---
Subjective - Date & Time of Evaluation Date of Evaluation: 03/31/17 Time of Evaluation: 07:39 - Subjective Subjective: General Surgery: Dr Woodruff Pt S&E. CANDICE. Now having multiple episodes of diarrhea. NGT output decreased , still ~500 per shift requiring frequent flushing. Per nursing and sister, pt appears to be having intense episodes of pain when defecating. Tachycardia improved to 120s. Leukocytosis improving. Objective - Vital Signs/Intake and Output Vital Signs (last 24 hours): Temp Pulse Resp BP Pulse Ox 98.5 F 116 H 26 H 97/60 L 99 03/31/17 04:00 03/31/17 07:00 03/31/17 07:00 03/31/17 06:57 03/31/17 07:00 Intake and Output: 03/31/17 03/31/17 06:59 18:59 Intake Total 3300 250 Output Total 710 50 Balance 2590 200 - Medications Medications: Current Medications Acetaminophen (Tylenol 325 Mg Supp) 325 mg [place] Q4 PRN PRN Reason: Fever >100.4 F Last Admin: 03/30/17 08:15 Dose: 325 mg Haloperidol Lactate (Haldol) 1 mg IVP BID PRN PRN Reason: Agitation Last Admin: 03/30/17 19:56 Dose: 1 mg Metronidazole (Flagyl) 500 mg in 100 mls @ 100 mls/hr IVPB Q8 AGUSTIN Last Admin: 03/31/17 04:59 Dose: 100 mls/hr Piperacillin Sod/Tazobactam Sod (Zosyn 3.375 Gm Iv Premix) 3.375 gm in 50 mls @ 100 mls/hr IVPB Q8H AGUSTIN Last Admin: 03/31/17 01:51 Dose: 100 mls/hr Lactated Ringer's (Lactated Ringer's) 1,000 mls @ 250 mls/hr IV .Q4H AGUSTIN Last Admin: 03/31/17 04:27 Dose: 250 mls/hr Potassium Chloride (Potassium Chloride 20 Meq/100 Ml) 20 meq in 100 mls @ 50 mls/hr IVPB Q2H AGUSTIN Stop: 03/31/17 11:29 Lorazepam (Ativan) 0.5 mg IVP Q6H PRN PRN Reason: Anxiety Last Admin: 03/31/17 04:27 Dose: 0.5 mg Metoclopramide HCl (Reglan) 5 mg IVP Q6 [facility] Last Admin: 03/31/17 05:00 Dose: 5 mg Ondansetron HCl (Zofran Inj) 4 mg IVP Q6H PRN PRN Reason: Nausea/Vomiting Pantoprazole Sodium (Protonix Inj) 40 mg IVP DAILY [facility] Last Admin: 03/30/17 09:25 Dose: 40 mg - Labs Labs: 03/31/17 06:34 03/31/17 06:34 PT 20.2 SECONDS (9.7-12.2) H 03/29/17 09:23 INR 1.8 03/29/17 09:23 APTT 30 SECONDS (21-34) 03/29/17 09:23 - Constitutional Appears: Non-toxic, No Acute Distress - Respiratory Exam Respiratory Exam: absent: Accessory Muscle Use, Respiratory Distress - Cardiovascular Exam Cardiovascular Exam: Tachycardia, REGULAR RHYTHM - GI/Abdominal Exam GI & Abdominal Exam: Soft. absent: Distended, Firm, Guarding, Rigid, Tenderness Assessment and Plan - Assessment and Plan (Free Text) Assessment: 36F with presumable gastroparesis, possible duodenal stricture, UTI, possible pneumonia Plan: cont abx for UTI leukocytosis improving and urine appearing more clear cont to flush NGT intermittently - can ask GI about when can consider removal and resuming enteral feeds mgmt of tachycardia per ICU team there is no plan for surgical intervention as pt is not obstructed and seems to be responding well to reglan we will continue to follow peripherally dw Dr Kacy Camacho, PGY3
[2017-03-31] MEDS ORDERED: Potassium Ch 20mEq in D5-1/2NS 1,000 ML IV SCH (08:00)
[2017-03-31] MEDS ORDERED: Meropenem 500 MG in Sodium Chloride 0.9% 100 ML IVPB SCH (09:00)
[2017-03-31] MEDS ORDERED: Sodium Chloride 0.9% 1,000 ML IV SCH (10:45)
[2017-03-31] MEDS ORDERED: Dextrose 5%/0.9% NS 1,000 ML IV SCH (11:00)
[2017-03-31] MEDS ORDERED: Potassium Phosphate 15 MMOLE in Sodium Chloride 0.9% 250 ML IV ONE (11:30)
[2017-03-31] MEDS ORDERED: Potassium Phosphate 15 MMOLE in Dextrose 5% In Water 250 ML IV ONE ×2 (11:30→13:00)
--- NOTE | 2017-03-31 15:51 | PN ---
LOCATION: ICU 4. SUBJECTIVE: This is a 36-year-old female seen and examined in rounds with period of agitation and being restless, without reported nausea or vomiting, had large brownish colored bowel movements recently. The entire chart is reviewed including but not limited to most recent labs and radiology study results, current and previous medication list, current and previous medical events. Case discussed with the staff. Today's lab showed leukocytosis of 15.7, low hemoglobin of 9.4, low hematocrit 24.5, patient is still on Reglan IV, with low potassium of 3.3, low creatinine of 0.6, with periods of hypoglycemia, then hyperglycemia, with low calcium of 7.5, low phosphorus of 2.2 and low magnesium of 1.5, with low albumin of 2.4, low total protein of 4.7 secondary to malnutrition. Her lipase level reported to be within normal limit. Most recent chest x-ray done yesterday showed moderate left pleural effusion, no infiltrate. PHYSICAL EXAMINATION: GENERAL: A 36-year-old female. VITAL SIGNS: Afebrile, with pulse of 124, blood pressure 122/70, respiratory rate elevated to 30 to 32. HEENT: Showed pale, dry oral mucous membrane. Nonicteric sclerae. LUNGS: Few scattered crepitation. Decreased air entry. HEART: Positive S1 and S2. ABDOMEN: Soft with [id number] distention. No masses or organomegaly could be appreciated. No rebound tenderness or guarding. NG tube is in place. EXTREMITIES: Without significant edema, clubbing or cyanosis. NEUROLOGIC: No reported neurological deficits, sensory or motor. IMPRESSION: 1. Gastroparesis. 2. Anemia. 3. Psychiatric disorder. 4. Malnutrition with hypoalbuminemia. 5. Electrolyte imbalance. 6. Abnormal chest x-ray with pleural effusion. SUGGESTIONS: 1. Agree with your plan. 2. Surgical reevaluation. 3. Further recommendation to follow. William Michael MD
[2017-03-31] MEDS: Dextrose 5%/0.9% NS 1,000 ML IV SCH ×2 (21:27→22:51)
[2017-04-01] MEDS: Piperacill/Tazo 3.375gm in Dex 3.375 GM/50 ML BAG IVPB SCH ×3 (02:16→17:42)
[2017-04-01] MEDS: Dextrose 5%/0.9% NS 1,000 ML IV SCH ×2 (03:29→08:11)
[2017-04-01] MEDS: metroNIDAZOLE IV 500 mg/100 ml 500 MG/100 ML BAG IVPB SCH ×3 (05:27→23:10)
[2017-04-01 06:40] LABS: BASO % 0.1 % (0.0-2.0); EOS # 0.2 K/uL (0.0-0.7); EOS % 1.6 % (0.0-4.0); HEMOGLOBIN 8.9 g/dL (11.0-16.0); LYMPH # 1.4 K/uL (1.0-4.3); LYMPH % 9.9 % (20.0-40.0); MEAN CELL VOLUME 82.7 fL (81.0-99.0); MEAN CORPUSCULAR HEMOGLOBIN 28.6 pg (27.0-31.0); MEAN CORPUSCULAR HGB CONC 34.6 g/dL (33.0-37.0); MEAN PLATELET VOLUME 8.9 fL (7.2-11.7); MONO # 1.5 K/uL (0.0-0.8); MONO % 10.7 % (0.0-10.0); NEUT # 10.7 K/uL (1.8-7.0); NEUT % 77.7 % (50.0-75.0); PLATELET COUNT 192 K/uL (130-400); RBC 3.12 Mil/uL (3.80-5.20); RED CELL DISTRIBUTION WIDTH 13.4 % (11.5-14.5); WHITE BLOOD COUNT 13.8 K/uL (4.8-10.8)
[2017-04-01 07:09] LABS: ALB/GLOB RATIO 1.1 (1.0-2.1); ALBUMIN 2.3 g/dL (3.5-5.0); ALT/SGPT 25 U/L (9-52); AST/SGOT 18 U/L (14-36); BLOOD UREA NITROGEN < 2 mg/dL (7-17); CALCIUM 7.1 mg/dl (8.6-10.4); GFR AFRICAN-AMERICAN > 60; GFR NON-AFRICAN AMERICAN > 60
--- NOTE | 2017-04-01 07:43 | CP.CCUPN ---
Addendum entered and electronically signed by Pari Smith DO 04/01/17 17:34: 04/01 [address] phone call with Dr[address] Harmon: clamp 4 hours on and 4 hours off on NGT and leave NGT to gravity. Patient can have EGD bev 04/05 Original Note: <Pari Smith - Last Filed: 04/01/17 15:34> CCU Subjective - Physician Review Subjective (Free Text): Critical Care Progress note for Dr. Lord Patient seen and examined at bedside. Patient has flexiseal in place, with green , brown fluid in the bag. Patient making noise indicating irritation, agitation. Maalox ordered via NGT and to hold suction for one hour. Patient's sister at bedside. She has no questions at this time. Critical Care Time Spent (in minutes): 35 CCU Objective - Vital Signs / Intake & Output Vital Signs (Last 4 hours): Vital Signs Temp Pulse Resp BP Pulse Ox 04/01/17 07:09 104 H 28 H 117/84 100 04/01/17 06:39 104 H 26 H 110/79 100 04/01/17 06:09 116 H 35 H 111/77 98 04/01/17 05:39 128 H 48 H 115/77 92 L 04/01/17 05:09 108 H 27 H 112/77 100 04/01/17 05:00 104 H 26 H 100 04/01/17 04:39 116 H 27 H 117/85 100 04/01/17 04:09 111 H 32 H 120/80 100 04/01/17 04:00 99.5 F 104 H 26 H 100 Intake and Output (Last 8hrs): Intake & Output 03/31/17 04/01/17 04/01/17 22:59 06:59 14:59 Intake Total 1380 2150 250 Output Total 2550 1700 200 Balance -1170 450 50 Weight 146 lb 8 oz Intake: Intake, IV Amount 1380 2150 250 Left Distal Port PICC 280 150 Left PICC 1100 2000 250 Oral 0 Output: Gastric Amount 800 Right Nares 800 Urine 1750 1600 200 Urethral (Tovar) 1750 1600 200 Stool 100 Emesis 0 Other: # Bowel Movements 1 1 - Physical Exam Head: Positive for: Atraumatic, Normocephalic. Negative for: Tenderness Pupils: Positive for: PERRL Extroacular Muscles: Positive for: EOMI Mouth: Positive for: Moist Mucous Membranes. Negative for: Dry, Drooling Nose (External): Positive for: Other (NGT in place) Nose (Internal): Positive for: Normal Inspection, Moist, Other (NGT in place) Neck: Positive for: Normal Range of Motion. Negative for: JVD, Lymphadenopathy Respiratory/Chest: Positive for: Clear to Auscultation. Negative for: Respiratory Distress, Accessory Muscle Use Cardiovascular: Positive for: Regular Rate and Rhythm, Normal S1, S2 Abdomen: Positive for: Tenderness, Guarding (slight guarding). Negative for: Distention Upper Extremity: Positive for: Normal Inspection, Normal ROM, Capillary Refill < 2s. Negative for: Edema Lower Extremity: Positive for: Normal Inspection. Negative for: Edema Neurological: Positive for: Other (patient does not speak). Negative for: Speech Normal Skin: Positive for: Warm, Pale Psychiatric: Positive for: Alert - Medications Active Medications: Active Medications Generic Name Dose Route Start Last Admin Trade Name Freq PRN Reason Stop Dose Admin Acetaminophen 325 mg 03/29/17 07:57 03/30/17 08:15 Tylenol 325 Mg Supp MS 325 mg Q4 PRN Administration Fever >100.4 F Famotidine 20 mg 03/31/17 22:00 03/31/17 21:30 Pepcid IVP 20 mg Q12 AGUSTIN Administration Haloperidol Lactate 1 mg 03/29/17 18:47 03/31/17 21:32 Haldol IVP 1 mg BID PRN Administration Agitation Metronidazole 500 mg in 100 mls @ 100 mls/hr 03/27/17 23:45 04/01/17 05:27 Flagyl IVPB 100 mls/hr Q8 AGUSTIN Administration Piperacillin Sod/Tazobactam Sod 3.375 gm in 50 mls @ 100 mls/hr 03/28/17 02: 30 04/01/17 02:16 Zosyn 3.375 Gm Iv Premix IVPB 100 mls/hr Q8H AGUSTIN Administration Dextrose/Sodium Chloride 1,000 mls @ 250 mls/hr 03/31/17 18:56 04/01/17 03:29 Dextrose 5%/0.9% Ns 1000 Ml IV 250 mls/hr .Q4H AGUSTIN Administration Potassium Chloride 20 meq in 100 mls @ 50 mls/hr 04/01/17 07:30 04/01/17 07: 37 Potassium Chloride 20 Meq/100 Ml IVPB 04/01/17 15:29 50 mls/hr Q2H AGUSTIN Administration Lorazepam 0.5 mg 04/01/17 07:29 Ativan IVP Q6H PRN Anxiety Metoclopramide HCl 5 mg 03/29/17 12:00 03/31/17 23:07 Reglan IVP 5 mg Q6 AGSUTIN Administration Ondansetron HCl 4 mg 03/27/17 23:45 Zofran Inj IVP Q6H PRN Nausea/Vomiting - Patient Studies Lab Studies: Microbiology Studies 03/27/17 22:35 Blood Culture - Preliminary Blood NO GROWTH AFTER 3 DAYS 03/27/17 22:35 Blood Culture - Preliminary Blood NO GROWTH AFTER 3 DAYS Lab Studies 04/01/17 04/01/17 04/01/17 Range/Units 06:28 06:28 05:22 WBC 13.8 H (4.8-10.8) K/uL RBC 3.12 L (3.80-5.20) Mil/uL Hgb 8.9 L (11.0-16.0) g/dL Hct 25.8 L (34.0-47.0) % MCV 82.7 (81.0-99.0) fL MCH 28.6 (27.0-31.0) pg MCHC 34.6 (33.0-37.0) g/dL RDW 13.4 (11.5-14.5) % Plt Count 192 (130-400) K/uL MPV 8.9 (7.2-11.7) fL Neut % (Auto) 77.7 H (50.0-75.0) % Lymph % (Auto) 9.9 L (20.0-40.0) % Mclean % (Auto) 10.7 H (0.0-10.0) % Eos % (Auto) 1.6 (0.0-4.0) % Baso % (Auto) 0.1 (0.0-2.0) % Neut # 10.7 H (1.8-7.0) K/uL Lymph # 1.4 (1.0-4.3) K/uL Mclean # 1.5 H (0.0-0.8) K/uL Eos # 0.2 (0.0-0.7) K/uL Baso # 0.0 (0.0-0.2) K/uL Sodium 133 (132-148) mmol/L Potassium 2.7 L (3.6-5.2) mmol/L Chloride 102 (98-107) mmol/L Carbon Dioxide 29 (22-30) mmol/L Anion Gap 4 L (10-20) BUN < 2 L (7-17) mg/dL Creatinine 0.5 L (0.7-1.2) mg/dL Est GFR ( Amer) > 60 Est GFR (Non-Af Amer) > 60 POC Glucose (mg/dL) 174 H (65-110) mg/dL Random Glucose 152 H (65-105) mg/dL Calcium 7.1 L (8.6-10.4) mg/dl Phosphorus 3.0 (2.5-4.5) mg/dL Magnesium 1.5 L (1.6-2.3) mg/dL Total Bilirubin 0.3 (0.2-1.3) mg/dL AST 18 (14-36) U/L ALT 25 (9-52) U/L Alkaline Phosphatase 44 (38-126) U/L Total Protein 4.4 L (6.3-8.3) g/dL Albumin 2.3 L (3.5-5.0) g/dL Globulin 2.1 L (2.2-3.9) gm/dL Albumin/Globulin Ratio 1.1 (1.0-2.1) 03/31/17 03/31/17 Range/Units 23:51 17:55 WBC (4.8-10.8) K/uL RBC (3.80-5.20) Mil/uL Hgb (11.0-16.0) g/dL Hct (34.0-47.0) % MCV (81.0-99.0) fL MCH (27.0-31.0) pg MCHC (33.0-37.0) g/dL RDW (11.5-14.5) % Plt Count (130-400) K/uL MPV (7.2-11.7) fL Neut % (Auto) (50.0-75.0) % Lymph % (Auto) (20.0-40.0) % Mclean % (Auto) (0.0-10.0) % Eos % (Auto) (0.0-4.0) % Baso % (Auto) (0.0-2.0) % Neut # (1.8-7.0) K/uL Lymph # (1.0-4.3) K/uL Mclean # (0.0-0.8) K/uL Eos # (0.0-0.7) K/uL Baso # (0.0-0.2) K/uL Sodium (132-148) mmol/L Potassium (3.6-5.2) mmol/L Chloride (98-107) mmol/L Carbon Dioxide (22-30) mmol/L Anion Gap (10-20) BUN (7-17) mg/dL Creatinine (0.7-1.2) mg/dL Est GFR ( Amer) Est GFR (Non-Af Amer) POC Glucose (mg/dL) 110 75 (65-110) mg/dL Random Glucose (65-105) mg/dL Calcium (8.6-10.4) mg/dl Phosphorus (2.5-4.5) mg/dL Magnesium (1.6-2.3) mg/dL Total Bilirubin (0.2-1.3) mg/dL AST (14-36) U/L ALT (9-52) U/L Alkaline Phosphatase (38-126) U/L Total Protein (6.3-8.3) g/dL Albumin (3.5-5.0) g/dL Globulin (2.2-3.9) gm/dL Albumin/Globulin Ratio (1.0-2.1) Laboratory Results - last 24 hr 03/31/17 03/31/17 04/01/17 17:55 23:51 05:22 WBC RBC Hgb Hct MCV MCH MCHC RDW Plt Count MPV Neut % (Auto) Lymph % (Auto) Mclean % (Auto) Eos % (Auto) Baso % (Auto) Neut # Lymph # Mclean # Eos # Baso # Sodium Potassium Chloride Carbon Dioxide Anion Gap BUN Creatinine Est GFR ( Amer) Est GFR (Non-Af Amer) POC Glucose (mg/dL) 75 110 174 H Random Glucose Calcium Phosphorus Magnesium Total Bilirubin AST ALT Alkaline Phosphatase Total Protein Albumin Globulin Albumin/Globulin Ratio 04/01/17 04/01/17 06:28 06:28 WBC 13.8 H RBC 3.12 L Hgb 8.9 L Hct 25.8 L MCV 82.7 MCH 28.6 MCHC 34.6 RDW 13.4 Plt Count 192 MPV 8.9 Neut % (Auto) 77.7 H Lymph % (Auto) 9.9 L Mclean % (Auto) 10.7 H Eos % (Auto) 1.6 Baso % (Auto) 0.1 Neut # 10.7 H Lymph # 1.4 Mclean # 1.5 H Eos # 0.2 Baso # 0.0 Sodium 133 Potassium 2.7 L Chloride 102 Carbon Dioxide 29 Anion Gap 4 L BUN < 2 L Creatinine 0.5 L Est GFR ( Amer) > 60 Est GFR (Non-Af Amer) > 60 POC Glucose (mg/dL) Random Glucose 152 H Calcium 7.1 L Phosphorus 3.0 Magnesium 1.5 L Total Bilirubin 0.3 AST 18 ALT 25 Alkaline Phosphatase 44 Total Protein 4.4 L Albumin 2.3 L Globulin 2.1 L Albumin/Globulin Ratio 1.1 Fingerstick Blood Sugar Results: 75 Critical Care Progress Note - Nutrition Nutrition: Nutrition Category Date Time Status NPO Diet [DIET] Diets 03/29/17 Lunch Active Assessment/Plan - Assessment and Plan (Free Text) Assessment: 36 y/o nonverbal female admitted with diarrhea,tachycardia,elevated WBC count , lipase and lactic acid, found to have severe gastric outlet obstruction with high NGT output. Plan Neuro: hx of Schizophrenia, patient has mental retardation and can speak some words based on observation Pain: Dilaudid 0.5 mg Q6H PRN, discontinued 03/29 Sedation: 1mg Haldol IVP Q12H PRN 0.5mg Ativan Q6H PRN discontinued 03/30 03/31 0.5mg Ativan Q6H PRN restarted Nausea: Zofran 4mg IVP Q6H PRN Psych: Psych Consult Dr. Mccloud: f/u 03/30 EKG to evaluate QTc Quetiapine (Seroquel) 200mg POBID, held d/t NGT on IWS Escitalopram (Lexapro) 10mg PO QD, held d/t NGT on IWS Cardio: 03/27 EKG Sinus tachycardia 138 bpm 12/20 EKG QTc 434, Sinus tachycardia at 153 bpm Pulm: Aspiration pneumonia s/p EGD with intubation then extubation 03/27 AB.22 03/27 CXR in infiltrates, no active pulmonary disease 03/30 CXR: poor inspiratory effort, areas suggestive of aspiration pneumonia Endo: 03/28 Hemoglobin A1c 5.3 GI: 03/28 Lipase 8456 03/29 Lipase 322 03/30 Lipase 64 03/28 00:18 CT abdomen/pelvis with IV contrast: gastric distention 32cm and distention of the first and third and second portion of duodenum. Transition and complete decompression of third portion of duodenum. pancreas unremarkable, spleen unremarkable, partially contracted gallbladder. duodenal obstruction v delayed emptying v gastroparesis. Fluid distention of distal esophagus 3.3cm representing gastric emptying v gastroesophageal reflux. f/u 03/[address] abdomen/pelvis with IV contrast: significantly dilated stomach with retained food and fluid. significantly diminished prior to earlier CT 03/28. No free intraperitoneal gas identified. contrast noted in Gallbladder. 03/28 FOBT positive 03/[address] connected to suction. 03/28 NGT OP since insertion: 2600cc 03/29 2350 03/30 NGT 1160 03/31 NGT 630 04/01 NGT 800 f/u Strict I/Os General Surgery Consult: Dr. Woodruff 03/[address] Harmon to have EGD today. 03/[address] Harmon, place patient on Reglan to help with motility. 03/30 Abdominal xray/obstructive series: minimal distention of stomach compared to previous imaging studies 03/31 Pathology for Antrum biopsy from 03/29 EGD current biopsy negative for H pylori 04/01 f/u Dr. Harmon for repeat EGD. Reglan 5mg IVP Q6H Renal: 03/27 UA: proteinuria urine output since insertion 360 average hourly output 60cc/hr f/u Strict I/Os 03/31 Potassium Phosphorus 15mmole @63cc/hr : 03/27 UA: hazy, specific gravity >1.060, 3+ urine protein, Urine bacteria, Urine Yeast Ceftriaxone 1gm IVPB QD 03/30 Urine Cx negative Heme: GI bleed H/H: 03/27 14.6/44.7 03/28 12.9/38.5 03/29 11.2/33.0 03/30 9.5/27.7 03/31 9.4/27.5 04/01 8.9/25.8 03/28 FOBT positive 03/30 GOBT positive MSK: Patient can walk per sister, but is dizzy so hasn't walked PT/OT eval and treat when stable ID: Sepsis Code sepsis 03/28 02:20 03/28 lactate 9.7 03/28 lactate 01:05 9.2 03/28 lactate 06:15 1.3 03/27 WBC 26.7 03/28 WBC 30.2 03/29 WBC 21.3 03/30 WBC 16.1 03/31 WBC 15.7 f/u AM CBC 03/30 blood Culture x 2, negative 03/30 MRSA screen negative 03/30 Urine Cx negative Zosyn 500mg IVPB Q8H Tylenol 325mg MS Q4H PRN 03/29 Neutrophils 75, Bands 9 03/30 Neutrophils 83, Bands 1 Flagyl 500mg IVPB Q8H Zosyn 3.375gm in 50cc IVPB Q8H Prophylaxis: DVT: Lovenox 50 mg SC GI: Protonix Dri Zofran 4mg IVP Q6H PRN Nausea Tylenol 325mg MS Q4H PRN Fluids: D5W/NS with 20meq KCl @ 250cc/hr Potassium repleted Magnesium replete 03/28 PICC line insertion by Dr. Nguyen at bedside, confirmed placement with XRAY discussed with Dr. Risa Smith DO PGY1 - Date & Time Date: 04/01/17 Time: 08:08 <Aroldo Lord P - Last Filed: 04/01/17 18:42> CCU Objective - Vital Signs / Intake & Output Intake and Output (Last 8hrs): Intake & Output 04/01/17 04/01/17 04/01/17 06:59 14:59 22:59 Intake Total 2150 250 Output Total 1700 200 Balance 450 50 Weight 146 lb 8 oz Intake: Intake, IV Amount 2150 250 Left Distal Port PICC 150 Left PICC 2000 250 Output: Urine 1600 200 Urethral (Tovar) 1600 200 Stool 100 Other: # Bowel Movements 1 - Medications Active Medications: Active Medications Generic Name Dose Route Start Last Admin Trade Name Freq PRN Reason Stop Dose Admin Acetaminophen 325 mg 03/29/17 07:57 03/30/17 08:15 Tylenol 325 Mg Supp MS 325 mg Q4 PRN Administration Fever >100.4 F Haloperidol Lactate 1 mg 03/29/17 18:47 03/31/17 21:32 Haldol IVP 1 mg BID PRN Administration Agitation Metronidazole 500 mg in 100 mls @ 100 mls/hr 03/27/17 23:45 04/01/17 14:04 Flagyl IVPB 100 mls/hr Q8 AGUSTIN Administration Piperacillin Sod/Tazobactam Sod 3.375 gm in 50 mls @ 100 mls/hr 03/28/17 02: 30 04/01/17 17:42 Zosyn 3.375 Gm Iv Premix IVPB 100 mls/hr Q8H AGUSTIN Administration Pantoprazole Sodium 80 mg/ 100 mls @ 10 mls/hr 04/01/17 10:30 04/01/17 11:03 Sodium Chloride IV 10 mls/hr .Q10H AGUSTIN Administration 8 MG/HR Potassium Chloride 20 meq/ 1,010 mls @ 250 mls/hr 04/01/17 11:30 04/01/17 12: 30 Dextrose/Sodium Chloride IV 250 mls/hr .Q4H3M AGUSTIN Administration Lorazepam 0.5 mg 04/01/17 16:08 Ativan IVP Q3H PRN Anxiety Metoclopramide HCl 5 mg 03/29/17 12:00 04/01/17 17:40 Reglan IVP 5 mg Q6 AGUSTIN Administration Ondansetron HCl 4 mg 03/27/17 23:45 Zofran Inj IVP Q6H PRN Nausea/Vomiting - Patient Studies Lab Studies: Microbiology Studies 03/27/17 22:35 Blood Culture - Preliminary Blood NO GROWTH AFTER 4 DAYS 03/27/17 22:35 Blood Culture - Preliminary Blood NO GROWTH AFTER 4 DAYS Lab Studies 04/01/17 04/01/17 04/01/17 Range/Units 17:52 11:48 06:28 WBC (4.8-10.8) K/uL RBC (3.80-5.20) Mil/uL Hgb (11.0-16.0) g/dL Hct (34.0-47.0) % MCV (81.0-99.0) fL MCH (27.0-31.0) pg MCHC (33.0-37.0) g/dL RDW (11.5-14.5) % Plt Count (130-400) K/uL MPV (7.2-11.7) fL Neut % (Auto) (50.0-75.0) % Lymph % (Auto) (20.0-40.0) % Mclean % (Auto) (0.0-10.0) % Eos % (Auto) (0.0-4.0) % Baso % (Auto) (0.0-2.0) % Neut # (1.8-7.0) K/uL Lymph # (1.0-4.3) K/uL Mclean # (0.0-0.8) K/uL Eos # (0.0-0.7) K/uL Baso # (0.0-0.2) K/uL Neutrophils % (Manual) (50-75) % Band Neutrophils % (0-2) % Lymphocytes % (Manual) (20-40) % Monocytes % (Manual) (0-10) % Eosinophils % (Manual) (0-4) % Basophils % (Manual) (0-2) % Platelet Estimate (NORMAL) Ovalocytes Sodium 133 (132-148) mmol/L Potassium 2.7 L (3.6-5.2) mmol/L Chloride 102 (98-107) mmol/L Carbon Dioxide 29 (22-30) mmol/L Anion Gap 4 L (10-20) BUN < 2 L (7-17) mg/dL Creatinine 0.5 L (0.7-1.2) mg/dL Est GFR ( Amer) > 60 Est GFR (Non-Af Amer) > 60 POC Glucose (mg/dL) 93 145 H (65-110) mg/dL Random Glucose 152 H (65-105) mg/dL Calcium 7.1 L (8.6-10.4) mg/dl Phosphorus 3.0 (2.5-4.5) mg/dL Magnesium 1.5 L (1.6-2.3) mg/dL Total Bilirubin 0.3 (0.2-1.3) mg/dL AST 18 (14-36) U/L ALT 25 (9-52) U/L Alkaline Phosphatase 44 (38-126) U/L Total Protein 4.4 L (6.3-8.3) g/dL Albumin 2.3 L (3.5-5.0) g/dL Globulin 2.1 L (2.2-3.9) gm/dL Albumin/Globulin Ratio 1.1 (1.0-2.1) 04/01/17 04/01/17 03/31/17 Range/Units 06:28 05:22 23:51 WBC 13.8 H (4.8-10.8) K/uL RBC 3.12 L (3.80-5.20) Mil/uL Hgb 8.9 L (11.0-16.0) g/dL Hct 25.8 L (34.0-47.0) % MCV 82.7 (81.0-99.0) fL MCH 28.6 (27.0-31.0) pg MCHC 34.6 (33.0-37.0) g/dL RDW 13.4 (11.5-14.5) % Plt Count 192 (130-400) K/uL MPV 8.9 (7.2-11.7) fL Neut % (Auto) 77.7 H (50.0-75.0) % Lymph % (Auto) 9.9 L (20.0-40.0) % Mclean % (Auto) 10.7 H (0.0-10.0) % Eos % (Auto) 1.6 (0.0-4.0) % Baso % (Auto) 0.1 (0.0-2.0) % Neut # 10.7 H (1.8-7.0) K/uL Lymph # 1.4 (1.0-4.3) K/uL Mclean # 1.5 H (0.0-0.8) K/uL Eos # 0.2 (0.0-0.7) K/uL Baso # 0.0 (0.0-0.2) K/uL Neutrophils % (Manual) 79 H (50-75) % Band Neutrophils % 1 (0-2) % Lymphocytes % (Manual) 10 L (20-40) % Monocytes % (Manual) 7 (0-10) % Eosinophils % (Manual) 2 (0-4) % Basophils % (Manual) 1 (0-2) % Platelet Estimate Normal (NORMAL) Ovalocytes Slight Sodium (132-148) mmol/L Potassium (3.6-5.2) mmol/L Chloride (98-107) mmol/L Carbon Dioxide (22-30) mmol/L Anion Gap (10-20) BUN (7-17) mg/dL Creatinine (0.7-1.2) mg/dL Est GFR ( Amer) Est GFR (Non-Af Amer) POC Glucose (mg/dL) 174 H 110 (65-110) mg/dL Random Glucose (65-105) mg/dL Calcium (8.6-10.4) mg/dl Phosphorus (2.5-4.5) mg/dL Magnesium (1.6-2.3) mg/dL Total Bilirubin (0.2-1.3) mg/dL AST (14-36) U/L ALT (9-52) U/L Alkaline Phosphatase (38-126) U/L Total Protein (6.3-8.3) g/dL Albumin (3.5-5.0) g/dL Globulin (2.2-3.9) gm/dL Albumin/Globulin Ratio (1.0-2.1) 03/31/17 Range/Units 17:55 WBC (4.8-10.8) K/uL RBC (3.80-5.20) Mil/uL Hgb (11.0-16.0) g/dL Hct (34.0-47.0) % MCV (81.0-99.0) fL MCH (27.0-31.0) pg MCHC (33.0-37.0) g/dL RDW (11.5-14.5) % Plt Count (130-400) K/uL MPV (7.2-11.7) fL Neut % (Auto) (50.0-75.0) % Lymph % (Auto) (20.0-40.0) % Mclean % (Auto) (0.0-10.0) % Eos % (Auto) (0.0-4.0) % Baso % (Auto) (0.0-2.0) % Neut # (1.8-7.0) K/uL Lymph # (1.0-4.3) K/uL Mclean # (0.0-0.8) K/uL Eos # (0.0-0.7) K/uL Baso # (0.0-0.2) K/uL Neutrophils % (Manual) (50-75) % Band Neutrophils % (0-2) % Lymphocytes % (Manual) (20-40) % Monocytes % (Manual) (0-10) % Eosinophils % (Manual) (0-4) % Basophils % (Manual) (0-2) % Platelet Estimate (NORMAL) Ovalocytes Sodium (132-148) mmol/L Potassium (3.6-5.2) mmol/L Chloride (98-107) mmol/L Carbon Dioxide (22-30) mmol/L Anion Gap (10-20) BUN (7-17) mg/dL Creatinine (0.7-1.2) mg/dL Est GFR ( Amer) Est GFR (Non-Af Amer) POC Glucose (mg/dL) 75 (65-110) mg/dL Random Glucose (65-105) mg/dL Calcium (8.6-10.4) mg/dl Phosphorus (2.5-4.5) mg/dL Magnesium (1.6-2.3) mg/dL Total Bilirubin (0.2-1.3) mg/dL AST (14-36) U/L ALT (9-52) U/L Alkaline Phosphatase (38-126) U/L Total Protein (6.3-8.3) g/dL Albumin (3.5-5.0) g/dL Globulin (2.2-3.9) gm/dL Albumin/Globulin Ratio (1.0-2.1) Laboratory Results - last 24 hr 03/31/17 03/31/17 04/01/17 17:55 23:51 05:22 WBC RBC Hgb Hct MCV MCH MCHC RDW Plt Count MPV Neut % (Auto) Lymph % (Auto) Mclean % (Auto) Eos % (Auto) Baso % (Auto) Neut # Lymph # Mclean # Eos # Baso # Neutrophils % (Manual) Band Neutrophils % Lymphocytes % (Manual) Monocytes % (Manual) Eosinophils % (Manual) Basophils % (Manual) Platelet Estimate Ovalocytes Sodium Potassium Chloride Carbon Dioxide Anion Gap BUN Creatinine Est GFR ( Amer) Est GFR (Non-Af Amer) POC Glucose (mg/dL) 75 110 174 H Random Glucose Calcium Phosphorus Magnesium Total Bilirubin AST ALT Alkaline Phosphatase Total Protein Albumin Globulin Albumin/Globulin Ratio 04/01/17 04/01/17 04/01/17 06:28 06:28 11:48 WBC 13.8 H RBC 3.12 L Hgb 8.9 L Hct 25.8 L MCV 82.7 MCH 28.6 MCHC 34.6 RDW 13.4 Plt Count 192 MPV 8.9 Neut % (Auto) 77.7 H Lymph % (Auto) 9.9 L Mclean % (Auto) 10.7 H Eos % (Auto) 1.6 Baso % (Auto) 0.1 Neut # 10.7 H Lymph # 1.4 Mclean # 1.5 H Eos # 0.2 Baso # 0.0 Neutrophils % (Manual) 79 H Band Neutrophils % 1 Lymphocytes % (Manual) 10 L Monocytes % (Manual) 7 Eosinophils % (Manual) 2 Basophils % (Manual) 1 Platelet Estimate Normal Ovalocytes Slight Sodium 133 Potassium 2.7 L Chloride 102 Carbon Dioxide 29 Anion Gap 4 L BUN < 2 L Creatinine 0.5 L Est GFR ( Amer) > 60 Est GFR (Non-Af Amer) > 60 POC Glucose (mg/dL) 145 H Random Glucose 152 H Calcium 7.1 L Phosphorus 3.0 Magnesium 1.5 L Total Bilirubin 0.3 AST 18 ALT 25 Alkaline Phosphatase 44 Total Protein 4.4 L Albumin 2.3 L Globulin 2.1 L Albumin/Globulin Ratio 1.1 04/01/17 17:52 WBC RBC Hgb Hct MCV MCH MCHC RDW Plt Count MPV Neut % (Auto) Lymph % (Auto) Mclean % (Auto) Eos % (Auto) Baso % (Auto) Neut # Lymph # Mclean # Eos # Baso # Neutrophils % (Manual) Band Neutrophils % Lymphocytes % (Manual) Monocytes % (Manual) Eosinophils % (Manual) Basophils % (Manual) Platelet Estimate Ovalocytes Sodium Potassium Chloride Carbon Dioxide Anion Gap BUN Creatinine Est GFR ( Amer) Est GFR (Non-Af Amer) POC Glucose (mg/dL) 93 Random Glucose Calcium Phosphorus Magnesium Total Bilirubin AST ALT Alkaline Phosphatase Total Protein Albumin Globulin Albumin/Globulin Ratio Critical Care Progress Note - Nutrition Nutrition: Nutrition Category Date Time Status NPO Diet [DIET] Diets 03/29/17 Lunch Active Attending/Attestation - Attestation I have personally seen and examined this patient.: Yes I have fully participated in the care of the patient.: Yes I have reviewed all pertinent clinical information: Yes Notes (Text): No new events, patient gets agitated especially during BM, HR and RR had been lesser then prior days and fluctuate depending on patient's anxiety. Hypokalmemia and hypomagnesemia noticed, replaced. KCL also added to maintenance fluid. D/w Dr Harmon planning to biopsy again on Tuesday to evaluated massive dilation of stomach/pylorus/duodenum. NG will be intermittently clamped as discussed with GI. GI DVT prophylaxis. Will d/w primary team pt could be moved to tele bed as hemodynamics had been maintained.
[2017-04-01 08:56] LABS: BANDS 1 % (0-2); BASOPHIL 1 % (0-2); EOSINOPHIL 2 % (0-4); LYMPHOCYTE 10 % (20-40); MONOCYTE 7 % (0-10); NEUTROPHIL 79 % (50-75); PLATELET ESTIMATE NORMAL (NORMAL); TOTAL CELLS COUNTED 100
[2017-04-01 08:57] LABS: OVALOCYTES SLIGHT
[2017-04-01] MEDS ORDERED: Pantoprazole 80 MG in Sodium Chloride 0.9% 100 ML IVP SCH (09:00)
[2017-04-01] MEDS ORDERED: Magnesium Sulfate 1 gm in D5W 1 GM/100 ML BAG IVPB ONE (10:34)
--- NOTE | 2017-04-01 11:01 | PN ---
LOCATION: ICU 4. SUBJECTIVE: This 36-year-old female is seen early in rounds today without significant clinical changes, NG tube is still in place, appeared to be somewhat restless and agitated on and off. The entire chart is reviewed including but not limited to most recent labs and radiology study results, current and previous medication list, current and previous medical events. Case discussed with the staff in the ICU. Today's lab showed white blood cells of 13.8 with low hemoglobin 8.9, low hematocrit 25.8 with normal platelet count with decreased potassium 2.7, low BUN and creatinine. Blood glucose level elevated to 174 with low calcium 7.2, low magnesium 1.5 with low total protein 4.4, low albumin 2.3. PHYSICAL EXAMINATION: GENERAL: A 36-year-old female. VITAL SIGNS: Low-grade temperature of 99.5, heart rate of 100, and respiratory rate reported to be 20 to 24 with blood pressure of 118/74. HEENT: Showed pale, dry oral mucous membrane. Nonicteric sclerae. LUNGS: Scattered crepitation with decreased air entry at bases. HEART: Positive S1 and S2 with increased rate. ABDOMEN: Soft. Bowel sounds are present. No mass or organomegaly. Mild abdominal distention noticed. EXTREMITIES: Without significant clubbing, cyanosis or edema. NEUROLOGIC: No reported new neurological deficits, sensory or motor. Patient is nonverbal. IMPRESSION: 1. Peptic ulcer disease. 2. Gastroparesis. 3. Acute pancreatitis with subsequent decrease of lipase and possible ileus. 4. Anemia most likely secondary to above. 5. Moderate left pleural effusion by radiology study results. 6. Schizophrenia by history. 7. Electrolyte imbalance with hypomagnesemia and hyperglycemia. 8. Malnutrition with hypoalbuminemia. SUGGESTIONS: 1. Agree with your plan. 2. Correct an underlying electrolyte imbalance. 3. Will follow up with you. Surgical reevaluation to follow. William Michael MD
[2017-04-01] MEDS: Pantoprazole 80 MG in Sodium Chloride 0.9% 100 ML IV SCH ×2 (11:03→19:27)
[2017-04-01] MEDS: Potassium Chloride 20 MEQ in Dextrose 5%/0.9% NS 1,000 ML IV SCH (12:30)
[2017-04-01] MEDS ORDERED: Aluminum Hydroxide/Magnesium Hydroxide Susp (30 mL) PO ONE (15:23)
[2017-04-02] MEDS ORDERED: Morphine 4 MG/ML VIAL IV ONE ×3 (00:19→08:30)
[2017-04-02] MEDS ORDERED: Iohexol 240 (50 ml) PO ONE (01:30)
[2017-04-02] MEDS ORDERED: Iodixanol 320 MG/ML 100 ML BOTTLE IV ONE (02:42)
--- NOTE | 2017-04-02 04:51 | CT ---
EXAM: CT Chest With Intravenous Contrast CT Abdomen and Pelvis With Intravenous Contrast CLINICAL HISTORY: 36 years old, female; Pain; Abdominal pain; Chest pain; Patient HX: [phone] images sent TECHNIQUE: Axial computed tomography images of the chest, abdomen and pelvis with intravenous contrast. All CT scans at this facility use one or more dose reduction techniques, viz.: automated exposure control; ma/kV adjustment per patient size (including targeted exams where dose is matched to indication; i.e. head); or iterative reconstruction technique. 930 images are submitted. Oral contrast was administered. 100 cc of Visipaque 320 was administered. Coronal and sagittal reformatted images were created and reviewed. CONTRAST: 100 mL of [id number] administered intravenously. COMPARISON: CT - ABD PELVIS W/O PO OR IV CONT 2017-03-28 11:01 FINDINGS: Artifacts: Limited due to motion and misregistration artifacts.Limited due to pulsation artifact. CHEST: Lungs: There are bilateral perihilar consolidation. There is right more than left upper lobes and left more than right lower lobes lingular consolidation representing multifocal pneumonia versus atelectasis versus mucous plugging and/or aspiration. There is significant interval worsening when compared to prior examination from March 28, 2017. Pleural space: Left more than right large pleural effusions. No pneumothorax. Heart: Unremarkable. No cardiomegaly. No significant pericardial effusion. ABDOMEN: Liver: Fatty liver. Gallbladder and bile ducts: Partially distended gallbladder. Pancreas: Peripancreatic infiltration.Correlation with pancreatic enzymes is recommended. No ductal dilation. Spleen: Unremarkable. No splenomegaly. Adrenals: Unremarkable. No mass. Kidneys and ureters: Heterogeneous nephrograms likely secondary to renal tubular ectasia. No hydronephrosis. No solid mass. Stomach and bowel: There is possible gastric pneumatosis seen on image 66 through 73 series 6. Nonspecific thickening of the colon with paracolic infiltration likely due to underdistention versus nonspecific colitis versus reactive changes secondary to peritonitis. Possible diverticulosis. Appendix: The appendix not identified with complete certainty due to unopacified cecum and distal small bowel. There is lack of intra-abdominal fat. If clinical concern remains, a repeat study with thin sections after an appropriate time interval may allow oral contrast to opacify the cecum. PELVIS: Bladder: There is Tovar catheter in the bladder with bladder wall thickening measuring 1.4 cm.Correlation with clinical data is recommended if clinical cystitis versus other etiology is clinically suspected. Reproductive: Uterus is seen. High riding ovaries. CHEST, ABDOMEN and PELVIS: Intraperitoneal space: There is moderate intraperitoneal pelvic fluid with prominent surrounding peritoneal lining. There is upper abdominal loculated ascites with peritoneal enhancement above the spleen seen on image 95 series 601 in the retrogastric region. Peritonitis versus pseudocyst secondary to pancreatitis versus peritoneal infectious inflammatory or metastatic disease versus loculated peritoneal abscess secondary to gastric perforation is clinically suspected. Bones/joints: Limited evaluation of RIBS and the sternal due to misregistration artifact with fracture-like deformities. Correlation clinical examination is recommended if an acute fracture is clinically suspected. No dislocation. Soft tissues: Unremarkable. Vasculature: Heterogeneous enhancement of pulmonary artery and motion artifact with a mean Hounsfield unit of 124. No aortic aneurysm. Lymph nodes: Unremarkable. No enlarged lymph nodes. Tubes, lines and devices: There is gastric distention measuring 27 cm. There is an NG tube in the fundus of the stomach with contrast fluid and gas level. Correlation with patient's clinical data of gastroparesis versus NG tube function versus other etiology as clinical suspected is recommended. There is a left-sided central venous catheter with tip located in the right atrium. IMPRESSION: 1. There is gastric distention measuring 27 cm. There is possible gastric pneumatosis seen on image 66 through 73 series 6.There is an NG tube in the fundus of the stomach with contrast fluid and gas level. Correlation with patient's clinical data of gastroparesis versus NG tube function versus other etiology as clinical suspected is recommended. 2. Peripancreatic infiltration.Correlation with pancreatic enzymes is recommended. 3. Left more than right large pleural effusions. 4. There are bilateral perihilar consolidation. There is right more than left upper lobes and left more than right lower lobes lingular consolidation representing multifocal pneumonia versus atelectasis versus mucous plugging and/or aspiration. There is significant interval worsening when compared to prior examination from March 28, 2017. 5. There is moderate intraperitoneal pelvic fluid with prominent surrounding peritoneal lining. There is upper abdominal loculated ascites with peritoneal enhancement above the spleen seen on image 95 series 601 in the retrogastric region. Peritonitis versus pseudocyst secondary to pancreatitis versus peritoneal infectious inflammatory or metastatic disease versus loculated peritoneal abscess secondary to contained gastric perforation versus pseudomyxoma peritoneum and is clinically suspected. 6. There is Tovar catheter in the bladder with bladder wall thickening measuring 1.4 cm.Correlation with clinical data is recommended if clinical cystitis versus other etiology is clinically suspected. Correlation with internal medicine evaluation and further workup or followup as recommended by patient's clinical data.
[2017-04-02 07:04] LABS: BASO % 0.1 % (0.0-2.0); EOS # 0.2 K/uL (0.0-0.7); EOS % 1.2 % (0.0-4.0); HEMOGLOBIN 9.1 g/dL (11.0-16.0); LYMPH % 5.7 % (20.0-40.0); MEAN CELL VOLUME 83.2 fL (81.0-99.0); MEAN CORPUSCULAR HEMOGLOBIN 28.3 pg (27.0-31.0); MEAN PLATELET VOLUME 8.9 fL (7.2-11.7); MONO # 1.6 K/uL (0.0-0.8); MONO % 9.7 % (0.0-10.0); NEUT % 83.3 % (50.0-75.0); PLATELET COUNT 230 K/uL (130-400); RBC 3.21 Mil/uL (3.80-5.20); RED CELL DISTRIBUTION WIDTH 13.5 % (11.5-14.5); WHITE BLOOD COUNT 16.8 K/uL (4.8-10.8)
[2017-04-02] MEDS: metroNIDAZOLE IV 500 mg/100 ml 500 MG/100 ML BAG IVPB SCH ×3 (07:14→21:41)
[2017-04-02] MEDS: Piperacill/Tazo 3.375gm in Dex 3.375 GM/50 ML BAG IVPB SCH ×3 (07:19→18:39)
[2017-04-02 07:29] LABS: ALBUMIN 2.4 g/dL (3.5-5.0); ALT/SGPT 25 U/L (9-52); AMYLASE 94 U/L (30-110); AST/SGOT 16 U/L (14-36); BLOOD UREA NITROGEN < 2 mg/dL (7-17); CALCIUM 7.3 mg/dl (8.6-10.4); GFR AFRICAN-AMERICAN > 60; GFR NON-AFRICAN AMERICAN > 60; LIPASE 320 U/L (23-300)
--- NOTE | 2017-04-02 07:36 | CP.PCM.PN ---
Subjective - Date & Time of Evaluation Date of Evaluation: 04/02/17 Time of Evaluation: 07:31 - Subjective Subjective: Patient cried for prolonged hrs, abd not tender on exam, unclear even with the help of family why pt screaming, chest/abd/pelvis ordered. Chest CT shows b/l effusion, compression atelectesis, peritoneal fluid, continues to have stomach distension, currently with contrast. noticed passing small bowel, radiology report with differential reviewed. Feel strongly to determine etiology further, may need exp laprocopy. Some symptoms relief with prn morphine. Objective - Vital Signs/Intake and Output Vital Signs (last 24 hours): Temp Pulse Resp BP Pulse Ox 98 F 142 H 28 H 104/69 93 L 04/01/17 23:40 04/02/17 06:13 04/02/17 06:13 04/02/17 06:13 04/02/17 04:13 Intake and Output: 04/02/17 04/02/17 06:59 18:59 Intake Total 1420 Output Total 1905 Balance -485 - Medications Medications: Current Medications Acetaminophen (Tylenol 325 Mg Supp) 325 mg [place] Q4 PRN PRN Reason: Fever >100.4 F Last Admin: 03/30/17 08:15 Dose: 325 mg Haloperidol Lactate (Haldol) 1 mg IVP BID PRN PRN Reason: Agitation Last Admin: 03/31/17 21:32 Dose: 1 mg Metronidazole (Flagyl) 500 mg in 100 mls @ 100 mls/hr IVPB Q8 [facility] Last Admin: 04/02/17 07:14 Dose: 100 mls/hr Piperacillin Sod/Tazobactam Sod (Zosyn 3.375 Gm Iv Premix) 3.375 gm in 50 mls @ 100 mls/hr IVPB Q8H [facility] Last Admin: 04/02/17 07:19 Dose: 100 mls/hr Potassium Chloride 20 meq/ (Dextrose/Sodium Chloride) 1,010 mls @ 250 mls/hr IV .Q4H3M [facility] Last Admin: 04/01/17 12:30 Dose: 250 mls/hr Lorazepam (Ativan) 0.5 mg IVP Q3H PRN PRN Reason: Anxiety Last Admin: 04/02/17 04:45 Dose: 0.05 mg Metoclopramide HCl (Reglan) 5 mg IVP Q6 [facility] Last Admin: 04/02/17 07:18 Dose: 5 mg Ondansetron HCl (Zofran Inj) 4 mg IVP Q6H PRN PRN Reason: Nausea/Vomiting Pantoprazole Sodium (Protonix Inj) 40 mg IVP DAILY [facility] - Labs Labs: 04/02/17 06:58 04/02/17 06:58 PT 20.2 SECONDS (9.7-12.2) H 03/29/17 09:23 INR 1.8 03/29/17 09:23 APTT 30 SECONDS (21-34) 03/29/17 09:23
[2017-04-02 08:29] LABS: EOSINOPHIL 1 % (0-4); LYMPHOCYTE 5 % (20-40); MONOCYTE 12 % (0-10); NEUTROPHIL 82 % (50-75); PLATELET ESTIMATE NORMAL (NORMAL); TOTAL CELLS COUNTED 100
[2017-04-02] MEDS: Potassium Chloride 20 MEQ in Dextrose 5%/0.9% NS 1,000 ML IV SCH ×3 (08:54→21:44)
--- NOTE | 2017-04-02 11:31 | CP.PCM.PN ---
<Nicholas Crowder S - Last Filed: 04/02/17 14:41> Subjective - Date & Time of Evaluation Date of Evaluation: 04/02/17 Time of Evaluation: 11:29 - Subjective Subjective: Progress note for Dr. Reyes's Service Pt was seen and examined at bedside. She continues to have vague symptoms of abdominal pain. The CT scan done did not show definitive etiology of the pain's source. CT chest shows gastric distension with possible gastric pneumatosis along with peripancreatic infiltration, pleural effusions, bilateral perihilar consolidations, intraperitoneal fluid. There is some consideration being give to possible ex-lap to narrow the differential. Nursing reports trace amount of oral blood overnight that are suspected to be secondary to trauma from the NGT. Objective - Vital Signs/Intake and Output Vital Signs (last 24 hours): Temp Pulse Resp BP Pulse Ox 98.2 F 123 H 19 93/55 L 89 L 04/02/17 08:00 04/02/17 11:13 04/02/17 11:13 04/02/17 11:13 04/02/17 11:13 Intake and Output: 04/02/17 04/02/17 06:59 18:59 Intake Total 1420 625 Output Total 1905 250 Balance -485 375 - Medications Medications: Current Medications Acetaminophen (Tylenol 325 Mg Supp) 325 mg TN Q4 PRN PRN Reason: Fever >100.4 F Last Admin: 03/30/17 08:15 Dose: 325 mg Haloperidol Lactate (Haldol) 1 mg IVP BID PRN PRN Reason: Agitation Last Admin: 04/02/17 09:00 Dose: 1 mg Metronidazole (Flagyl) 500 mg in 100 mls @ 100 mls/hr IVPB Q8 COUNTS INCLUDE 234 BEDS AT [facility] Last Admin: 04/02/17 07:14 Dose: 100 mls/hr Piperacillin Sod/Tazobactam Sod (Zosyn 3.375 Gm Iv Premix) 3.375 gm in 50 mls @ 100 mls/hr IVPB Q8H COUNTS INCLUDE 234 BEDS AT [facility] Last Admin: 04/02/17 09:30 Dose: 100 mls/hr Potassium Chloride 20 meq/ (Dextrose/Sodium Chloride) 1,010 mls @ 125 mls/hr IV .Q8H5M COUNTS INCLUDE 234 BEDS AT [facility] Potassium Chloride (Potassium Chloride 20 Meq/100 Ml) 20 meq in 100 mls @ 50 mls/hr IVPB ONCE ONE Stop: 04/02/17 11:52 Lorazepam (Ativan) 0.5 mg IVP Q3H PRN PRN Reason: Anxiety Last Admin: 04/02/17 09:00 Dose: 0.5 mg Ondansetron HCl (Zofran Inj) 4 mg IVP Q6H PRN PRN Reason: Nausea/Vomiting Pantoprazole Sodium (Protonix Inj) 40 mg IVP DAILY [facility] - Labs Labs: 04/02/17 06:58 04/02/17 06:58 PT 20.2 SECONDS (9.7-12.2) H 03/29/17 09:23 INR 1.8 03/29/17 09:23 APTT 30 SECONDS (21-34) 03/29/17 09:23 - Head Exam Head Exam: ATRAUMATIC, NORMOCEPHALIC - Eye Exam Eye Exam: EOMI - ENT Exam ENT Exam: Mucous Membranes Moist Additional comments: NGT present - Respiratory Exam Respiratory Exam: Clear to Ausculation Bilateral - Cardiovascular Exam Cardiovascular Exam: REGULAR RHYTHM, +S1, +S2 - GI/Abdominal Exam GI & Abdominal Exam: Guarding, Tenderness - Extremities Exam Extremities Exam: Normal Capillary Refill. absent: Calf Tenderness, Pedal Edema - Neurological Exam Neurological Exam: Alert - Skin Skin Exam: Dry, Warm Assessment and Plan - Assessment and Plan (Free Text) Plan: Plan Neuro: hx of Schizophrenia, patient has mental retardation and can speak some words based on observation Pain: Dilaudid 0.5 mg Q6H PRN, discontinued 03/29. Morphine 3 mg IV given twice on 04/02. Sedation: 1mg Haldol IVP Q12H PRN 0.5mg Ativan Q6H PRN discontinued 03/30 03/31 0.5mg Ativan Q6H PRN restarted Nausea: Zofran 4mg IVP Q6H PRN Psych: Psych Consult Dr. Mccloud: f/u 03/30 EKG to evaluate QTc Quetiapine (Seroquel) 200mg POBID, held d/t NGT on IWS Escitalopram (Lexapro) 10mg PO QD, held d/t NGT on IWS Cardio: 03/27 EKG Sinus tachycardia 138 bpm 03/30 EKG QTc 434, Sinus tachycardia at 153 bpm Pulm: Aspiration pneumonia s/p EGD with intubation then extubation 03/27 AB.22 03/27 CXR in infiltrates, no active pulmonary disease 03/30 CXR: poor inspiratory effort, areas suggestive of aspiration pneumonia 04/02: CT abdomen/pelvis/chest: pleural effusions, bilateral perihilar consolidations possibly due to multifocal pneumonia vs. atelectasis Endo: 03/28 Hemoglobin A1c 5.3 GI: 03/28 Lipase 8456 03/29 Lipase 322 03/30 Lipase 64 03/28 00:18 CT abdomen/pelvis with IV contrast: gastric distention 32cm and distention of the first and third and second portion of duodenum. Transition and complete decompression of third portion of duodenum. pancreas unremarkable, spleen unremarkable, partially contracted gallbladder. duodenal obstruction v delayed emptying v gastroparesis. Fluid distention of distal esophagus 3.3cm representing gastric emptying v gastroesophageal reflux. f/u 03/[address] abdomen/pelvis with IV contrast: significantly dilated stomach with retained food and fluid. significantly diminished prior to earlier CT 03/28. No free intraperitoneal gas identified. contrast noted in Gallbladder. 03/28 FOBT positive 03/[address] connected to suction. 03/28 NGT OP since insertion: 2600cc 03/29 2350 03/30 NGT 1160 03/31 NGT 630 04/01 NGT 800 f/u Strict I/Os General Surgery Consult: Dr. Woodruff 03/[address] Harmon to have EGD today. 03/[address] Harmon, place patient on Reglan to help with motility. 03/30 Abdominal xray/obstructive series: minimal distention of stomach compared to previous imaging studies 03/31 Pathology for Antrum biopsy from 03/29 EGD current biopsy negative for H pylori 04/01 f/u Dr. Harmon for repeat EGD. Reglan 5mg IVP Q6H 04/02 CT chest shows gastric distension measuring 27 cm with possible gastric pneumatosis. NG tube in fundus of stomach. Peripancreatic infiltration. Moderate intraperitoneal pelvic fluid with prominent surrounding peritoneal lining. Upper abdominal loculated ascites with peritoneal enhancement above spleen. Lipase 320. Renal: 03/27 UA: proteinuria urine output since insertion 360 average hourly output 60cc/hr f/u Strict I/Os 03/31 Potassium Phosphorus 15mmole @63cc/hr : 03/27 UA: hazy, specific gravity >1.060, 3+ urine protein, Urine bacteria, Urine Yeast Ceftriaxone 1gm IVPB QD 03/30 Urine Cx negative Heme: GI bleed H/H: 03/27 14.6/44.7 03/28 12.9/38.5 03/29 11.2/33.0 03/30 9.5/27.7 03/31 9.4/27.5 04/01 8.9/25.8 03/28 FOBT positive 03/30 GOBT positive 04/02 9.1/26.7 MSK: Patient can walk per sister, but is dizzy so hasn't walked PT/OT eval and treat when stable ID: Sepsis Code sepsis 03/28 02:20 03/28 lactate 9.7 03/28 lactate 01:05 9.2 03/28 lactate 06:15 1.3 03/27 WBC 26.7 03/28 WBC 30.2 03/29 WBC 21.3 03/30 WBC 16.1 03/31 WBC 15.7 f/u AM CBC 03/30 blood Culture x 2, negative 03/30 MRSA screen negative 03/30 Urine Cx negative Zosyn 500mg IVPB Q8H Tylenol 325mg TN Q4H PRN 04/02 WBC 16.8. Blood culturex2 negative 03/29 Neutrophils 75, Bands 9 03/30 Neutrophils 83, Bands 1 Flagyl 500mg IVPB Q8H Zosyn 3.375gm in 50cc IVPB Q8H 04/02 Neutrophils 83 Prophylaxis: GI: Protonix Drip Zofran 4mg IVP Q6H PRN Nausea Tylenol 325mg TN Q4H PRN Fluids: D5W/NS with 20meq KCl @ 250cc/hr Potassium 3.5- repletion prn Pt will remain in ICU Case Discussed with Dr. Reyes <Mauri Reyes Jr. - Last Filed: 04/03/17 13:17> Objective - Vital Signs/Intake and Output Vital Signs (last 24 hours): Temp Pulse Resp BP Pulse Ox 98.2 F 135 H 28 H 106/65 100 04/03/17 08:00 04/03/17 11:00 04/03/17 11:00 04/03/17 11:00 04/03/17 11:00 Intake and Output: 04/03/17 04/03/17 06:59 18:59 Intake Total 1962 835 Output Total 1180 760 Balance -478 75 - Medications Medications: Current Medications Acetaminophen (Tylenol 325 Mg Supp) 325 mg TN Q4 PRN PRN Reason: Fever >100.4 F Last Admin: 03/30/17 08:15 Dose: 325 mg Haloperidol Lactate (Haldol) 1 mg IVP BID PRN PRN Reason: Agitation Last Admin: 04/03/17 10:34 Dose: 1 mg Metronidazole (Flagyl) 500 mg in 100 mls @ 100 mls/hr IVPB Q8 COUNTS INCLUDE 234 BEDS AT [facility] Last Admin: 04/03/17 13:05 Dose: 100 mls/hr Piperacillin Sod/Tazobactam Sod (Zosyn 3.375 Gm Iv Premix) 3.375 gm in 50 mls @ 100 mls/hr IVPB Q8H COUNTS INCLUDE 234 BEDS AT [facility] Last Admin: 04/03/17 09:34 Dose: 100 mls/hr Potassium Chloride 20 meq/ (Dextrose/Sodium Chloride) 1,010 mls @ 125 mls/hr IV .Q8H5M COUNTS INCLUDE 234 BEDS AT [facility] Last Admin: 04/03/17 12:15 Dose: 125 mls/hr Parenteral Electrolytes 20 ml/Potassium Chloride 40 meq/Multivitamins/Vitamin C 10 ml/Chromium/Copper/Manganese/Zinc 1 ml/ Insulin Human Regular 10 unit/ Amino Acids 1,051.1 mls @ 42 mls/hr IV .Q24H COUNTS INCLUDE 234 BEDS AT [facility] Stop: 04/03/17 18:01 Last Admin: 04/02/17 18:40 Dose: 42 mls/hr Sodium Chloride 35 meq/Potassium Chloride 30 meq/Magnesium Sulfate 6 meq/ Calcium Gluconate 4.5 meq/Potassium Phosphate 15 mmole/Insulin Human Regular 10 unit/Chromium/Copper/Manganese/Zinc 1 ml/ Multivitamins/Vitamin C 10 ml/ Amino Acids 1,051.0052 mls @ 42 mls/hr IV .Q24H COUNTS INCLUDE 234 BEDS AT [facility] Lorazepam (Ativan) 0.5 mg IVP Q3H PRN PRN Reason: Anxiety Last Admin: 04/03/17 05:09 Dose: 0.5 mg Morphine Sulfate (Morphine) 2 mg IVP Q4 PRN PRN Reason: Pain, moderate (4-7) Last Admin: 04/03/17 08:30 Dose: 2 mg Morphine Sulfate (Morphine) 4 mg IVP Q4 PRN PRN Reason: Pain, severe (8-10) Ondansetron HCl (Zofran Inj) 4 mg IVP Q6H PRN PRN Reason: Nausea/Vomiting Pantoprazole Sodium (Protonix Inj) 40 mg IVP DAILY [facility] Last Admin: 04/03/17 09:34 Dose: 40 mg - Labs Labs: 04/03/17 06:50 04/03/17 06:51 PT 20.2 SECONDS (9.7-12.2) H 03/29/17 09:23 INR 1.8 03/29/17 09:23 APTT 30 SECONDS (21-34) 03/29/17 09:23 Attending/Attestation - Attestation I have personally seen and examined this patient.: Yes I have fully participated in the care of the patient.: Yes I have reviewed all pertinent clinical information, including history, physical exam and plan: Yes Notes (Text): 04/03/17 13:17 Agree with the resident note and plan of care
--- NOTE | 2017-04-02 14:16 | CP.PCM.PN ---
Subjective - Date & Time of Evaluation Date of Evaluation: 04/02/17 Time of Evaluation: 14:15 - Subjective Subjective: patient seen for 2nd opinion and note dictated \ no surgery planned at present if no improvement , surgical approaches might be considered or referral for gastric pacemaker might be an option Objective - Vital Signs/Intake and Output Vital Signs (last 24 hours): Temp Pulse Resp BP Pulse Ox 98.2 F 123 H 19 93/55 L 89 L 04/02/17 08:00 04/02/17 11:13 04/02/17 11:13 04/02/17 11:13 04/02/17 11:13 Intake and Output: 04/02/17 04/02/17 06:59 18:59 Intake Total 1420 625 Output Total 1905 250 Balance -485 375 - Medications Medications: Current Medications Acetaminophen (Tylenol 325 Mg Supp) 325 mg [place] Q4 PRN PRN Reason: Fever >100.4 F Last Admin: 03/30/17 08:15 Dose: 325 mg Haloperidol Lactate (Haldol) 1 mg IVP BID PRN PRN Reason: Agitation Last Admin: 04/02/17 09:00 Dose: 1 mg Metronidazole (Flagyl) 500 mg in 100 mls @ 100 mls/hr IVPB Q8 [facility] Last Admin: 04/02/17 14:00 Dose: 100 mls/hr Piperacillin Sod/Tazobactam Sod (Zosyn 3.375 Gm Iv Premix) 3.375 gm in 50 mls @ 100 mls/hr IVPB Q8H [facility] Last Admin: 04/02/17 09:30 Dose: 100 mls/hr Potassium Chloride 20 meq/ (Dextrose/Sodium Chloride) 1,010 mls @ 125 mls/hr IV .Q8H5M [facility] Last Admin: 04/02/17 12:00 Dose: 125 mls/hr Potassium Chloride (Potassium Chloride 10 Meq/100 Ml) 10 meq in 100 mls @ 50 mls/hr IVPB Q1H [facility] Stop: 04/02/17 14:59 Last Admin: 04/02/17 14:00 Dose: 50 mls/hr Parenteral Electrolytes 20 ml/Potassium Chloride 40 meq/Multivitamins/Vitamin C 10 ml/Chromium/Copper/Manganese/Zinc 1 ml/ Insulin Human Regular 10 unit/ Amino Acids 1,051.1 mls @ 42 mls/hr IV .Q24H [facility] Stop: 04/03/17 18:01 Lorazepam (Ativan) 0.5 mg IVP Q3H PRN PRN Reason: Anxiety Last Admin: 04/02/17 12:00 Dose: 0.5 mg Ondansetron HCl (Zofran Inj) 4 mg IVP Q6H PRN PRN Reason: Nausea/Vomiting Pantoprazole Sodium (Protonix Inj) 40 mg IVP DAILY [facility] Last Admin: 04/02/17 13:58 Dose: 40 mg - Labs Labs: 04/02/17 06:58 04/02/17 06:58 PT 20.2 SECONDS (9.7-12.2) H 03/29/17 09:23 INR 1.8 03/29/17 09:23 APTT 30 SECONDS (21-34) 03/29/17 09:23
--- NOTE | 2017-04-02 14:40 | CP.CCUPN ---
CCU Subjective - Physician Review Events Since Last Encounter (Free Text): 04/02/17 14:36 patient today still tachycardic, moaning with pain. No abdominal distention, most epigastric pain noted NG tube in position, but much secretions is less. Family and bedside. she had a CT of the abdomen and pelv, showing still gastric distention. Pneumatosis I spoke to the patient's family, PMD, surgery team. Patient may need surgical intervention, seen by surgery team Unable to start feeding at Vital signs tachycardic, low-grade fever, and tachypnea. Chest good air entry, rales noted, hypoxic Regular and or so Abdomen soft Edema noted CT of the chest abdomen pelvis showing evidence of infiltrative changes in the left lung. Distention of the gastric stomach Other findings noted Edema noted. The pleural effusion possibly third spacing Elevated WBC, sepsis and pneumonia Assessment and recommendation: 36-ye admitted with gastric distention, unclear etiology, complicated with poor oral intake, pneumonia. Patient will need possibly surgery. NG tube suction. start the patient on TPN Antibiotic P aspiration precautions Continue to monitor in the ICU CCU Objective - Vital Signs / Intake & Output Vital Signs (Last 4 hours): Vital Signs Pulse Resp BP Pulse Ox 04/02/17 11:13 123 H 19 93/55 L 89 L Intake and Output (Last 8hrs): Intake & Output 04/01/17 04/02/17 04/02/17 22:59 06:59 14:59 Intake Total 1320 790 625 Output Total 1965 940 250 Balance -645 -150 375 Weight 147 lb 12.8 oz Intake: Intake, IV Amount 1320 790 625 Left Distal Port PICC 70 40 Left PICC 250 Left PICC #2 1000 750 625 Output: Gastric Amount 100 Right Nares 100 Urine 1690 940 250 Urethral (Tovar) 1690 940 250 Stool 175 - Physical Exam Head: Positive for: Atraumatic, Normocephalic. Negative for: Tenderness Pupils: Positive for: PERRL Extroacular Muscles: Positive for: EOMI Mouth: Positive for: Moist Mucous Membranes. Negative for: Dry, Drooling Nose (External): Positive for: Other (NGT in place) Nose (Internal): Positive for: Normal Inspection, Moist, Other (NGT in place) Neck: Positive for: Normal Range of Motion. Negative for: JVD, Lymphadenopathy Respiratory/Chest: Positive for: Clear to Auscultation. Negative for: Respiratory Distress, Accessory Muscle Use Cardiovascular: Positive for: Regular Rate and Rhythm, Normal S1, S2 Abdomen: Positive for: Tenderness, Guarding (slight guarding). Negative for: Distention Upper Extremity: Positive for: Normal Inspection, Normal ROM, Capillary Refill < 2s. Negative for: Edema Lower Extremity: Positive for: Normal Inspection. Negative for: Edema Neurological: Positive for: Other (patient does not speak). Negative for: Speech Normal Skin: Positive for: Warm, Pale Psychiatric: Positive for: Alert - Medications Active Medications: Active Medications Generic Name Dose Route Start Last Admin Trade Name Freq PRN Reason Stop Dose Admin Acetaminophen 325 mg 03/29/17 07:57 03/30/17 08:15 Tylenol 325 Mg Supp ME 325 mg Q4 PRN Administration Fever >100.4 F Haloperidol Lactate 1 mg 03/29/17 18:47 04/02/17 09:00 Haldol IVP 1 mg BID PRN Administration Agitation Metronidazole 500 mg in 100 mls @ 100 mls/hr 03/27/17 23:45 04/02/17 14:00 Flagyl IVPB 100 mls/hr Q8 AGUSTIN Administration Piperacillin Sod/Tazobactam Sod 3.375 gm in 50 mls @ 100 mls/hr 03/28/17 02: 30 04/02/17 09:30 Zosyn 3.375 Gm Iv Premix IVPB 100 mls/hr Q8H AGUSTIN Administration Potassium Chloride 20 meq/ 1,010 mls @ 125 mls/hr 04/02/17 11:00 04/02/17 12: 00 Dextrose/Sodium Chloride IV 125 mls/hr .Q8H5M AGUSTIN Administration Potassium Chloride 10 meq in 100 mls @ 50 mls/hr 04/02/17 13:00 04/02/17 14: 00 Potassium Chloride 10 Meq/100 Ml IVPB 04/02/17 14:59 50 mls/hr Q1H AGUSTIN Administration Parenteral Electrolytes 20 ml/ 1,051.1 mls @ 42 mls/hr 04/02/17 18:00 Potassium Chloride 40 meq/ IV 04/03/17 18:01 Multivitamins/Vitamin C 10 ml/ .Q24H AGUSTIN Chromium/Copper/Manganese/ Zinc 1 ml/ Insulin Human Regular 10 unit/ Amino Acids Lorazepam 0.5 mg 04/01/17 16:08 04/02/17 12:00 Ativan IVP 0.5 mg Q3H PRN Administration Anxiety Ondansetron HCl 4 mg 03/27/17 23:45 Zofran Inj IVP Q6H PRN Nausea/Vomiting Pantoprazole Sodium 40 mg 04/02/17 10:00 04/02/17 13:58 Protonix Inj IVP 40 mg DAILY AGUSTIN Administration - Patient Studies Lab Studies: Microbiology Studies 03/27/17 22:35 Blood Culture - Final Blood NO GROWTH AFTER 5 DAYS Gram Stain - Final TEST NOT PERFORMED 03/27/17 22:35 Blood Culture - Final Blood NO GROWTH AFTER 5 DAYS Gram Stain - Final TEST NOT PERFORMED Lab Studies 04/02/17 04/02/17 04/02/17 Range/Units 11:39 06:58 06:58 WBC 16.8 H (4.8-10.8) K/uL RBC 3.21 L (3.80-5.20) Mil/uL Hgb 9.1 L (11.0-16.0) g/dL Hct 26.7 L (34.0-47.0) % MCV 83.2 (81.0-99.0) fL MCH 28.3 (27.0-31.0) pg MCHC 34.0 (33.0-37.0) g/dL RDW 13.5 (11.5-14.5) % Plt Count 230 (130-400) K/uL MPV 8.9 (7.2-11.7) fL Neut % (Auto) 83.3 H (50.0-75.0) % Lymph % (Auto) 5.7 L (20.0-40.0) % [place] % (Auto) 9.7 (0.0-10.0) % Eos % (Auto) 1.2 (0.0-4.0) % Baso % (Auto) 0.1 (0.0-2.0) % Neut # 14.0 H (1.8-7.0) K/uL Lymph # 1.0 (1.0-4.3) K/uL [place] # 1.6 H (0.0-0.8) K/uL Eos # 0.2 (0.0-0.7) K/uL Baso # 0.0 (0.0-0.2) K/uL Neutrophils % (Manual) 82 H (50-75) % Lymphocytes % (Manual) 5 L (20-40) % Monocytes % (Manual) 12 H (0-10) % Eosinophils % (Manual) 1 (0-4) % Platelet Estimate Normal (NORMAL) RBC Morphology Normal Sodium 133 (132-148) mmol/L Potassium 3.5 L (3.6-5.2) mmol/L Chloride 99 (98-107) mmol/L Carbon Dioxide 29 (22-30) mmol/L Anion Gap 8 L (10-20) BUN < 2 L (7-17) mg/dL Creatinine 0.5 L (0.7-1.2) mg/dL Est GFR ( Amer) > 60 Est GFR (Non-Af Amer) > 60 POC Glucose (mg/dL) 110 (65-110) mg/dL Random Glucose 130 H (65-105) mg/dL Calcium 7.3 L (8.6-10.4) mg/dl Total Bilirubin 0.4 (0.2-1.3) mg/dL AST 16 (14-36) U/L ALT 25 (9-52) U/L Alkaline Phosphatase 58 (38-126) U/L Total Protein 4.8 L (6.3-8.3) g/dL Albumin 2.4 L (3.5-5.0) g/dL Globulin 2.4 (2.2-3.9) gm/dL Albumin/Globulin Ratio 1.0 (1.0-2.1) Amylase 94 (30-110) U/L Lipase 320 H (23-300) U/L 04/02/17 04/01/17 Range/Units 00:15 17:52 WBC (4.8-10.8) K/uL RBC (3.80-5.20) Mil/uL Hgb (11.0-16.0) g/dL Hct (34.0-47.0) % MCV (81.0-99.0) fL MCH (27.0-31.0) pg MCHC (33.0-37.0) g/dL RDW (11.5-14.5) % Plt Count (130-400) K/uL MPV (7.2-11.7) fL Neut % (Auto) (50.0-75.0) % Lymph % (Auto) (20.0-40.0) % [place] % (Auto) (0.0-10.0) % Eos % (Auto) (0.0-4.0) % Baso % (Auto) (0.0-2.0) % Neut # (1.8-7.0) K/uL Lymph # (1.0-4.3) K/uL [place] # (0.0-0.8) K/uL Eos # (0.0-0.7) K/uL Baso # (0.0-0.2) K/uL Neutrophils % (Manual) (50-75) % Lymphocytes % (Manual) (20-40) % Monocytes % (Manual) (0-10) % Eosinophils % (Manual) (0-4) % Platelet Estimate (NORMAL) RBC Morphology Sodium (132-148) mmol/L Potassium (3.6-5.2) mmol/L Chloride (98-107) mmol/L Carbon Dioxide (22-30) mmol/L Anion Gap (10-20) BUN (7-17) mg/dL Creatinine (0.7-1.2) mg/dL Est GFR ( Amer) Est GFR (Non-Af Amer) POC Glucose (mg/dL) 112 H 93 (65-110) mg/dL Random Glucose (65-105) mg/dL Calcium (8.6-10.4) mg/dl Total Bilirubin (0.2-1.3) mg/dL AST (14-36) U/L ALT (9-52) U/L Alkaline Phosphatase (38-126) U/L Total Protein (6.3-8.3) g/dL Albumin (3.5-5.0) g/dL Globulin (2.2-3.9) gm/dL Albumin/Globulin Ratio (1.0-2.1) Amylase (30-110) U/L Lipase (23-300) U/L Laboratory Results - last 24 hr 04/01/17 04/02/17 04/02/17 17:52 00:15 06:58 WBC RBC Hgb Hct MCV MCH MCHC RDW Plt Count MPV Neut % (Auto) Lymph % (Auto) [place] % (Auto) Eos % (Auto) Baso % (Auto) Neut # Lymph # [place] # Eos # Baso # Neutrophils % (Manual) Lymphocytes % (Manual) Monocytes % (Manual) Eosinophils % (Manual) Platelet Estimate RBC Morphology Sodium 133 Potassium 3.5 L Chloride 99 Carbon Dioxide 29 Anion Gap 8 L BUN < 2 L Creatinine 0.5 L Est GFR ( Amer) > 60 Est GFR (Non-Af Amer) > 60 POC Glucose (mg/dL) 93 112 H Random Glucose 130 H Calcium 7.3 L Total Bilirubin 0.4 AST 16 ALT 25 Alkaline Phosphatase 58 Total Protein 4.8 L Albumin 2.4 L Globulin 2.4 Albumin/Globulin Ratio 1.0 Amylase 94 Lipase 320 H 04/02/17 04/02/17 06:58 11:39 WBC 16.8 H RBC 3.21 L Hgb 9.1 L Hct 26.7 L MCV 83.2 MCH 28.3 MCHC 34.0 RDW 13.5 Plt Count 230 MPV 8.9 Neut % (Auto) 83.3 H Lymph % (Auto) 5.7 L [place] % (Auto) 9.7 Eos % (Auto) 1.2 Baso % (Auto) 0.1 Neut # 14.0 H Lymph # 1.0 [place] # 1.6 H Eos # 0.2 Baso # 0.0 Neutrophils % (Manual) 82 H Lymphocytes % (Manual) 5 L Monocytes % (Manual) 12 H Eosinophils % (Manual) 1 Platelet Estimate Normal RBC Morphology Normal Sodium Potassium Chloride Carbon Dioxide Anion Gap BUN Creatinine Est GFR ( Amer) Est GFR (Non-Af Amer) POC Glucose (mg/dL) 110 Random Glucose Calcium Total Bilirubin AST ALT Alkaline Phosphatase Total Protein Albumin Globulin Albumin/Globulin Ratio Amylase Lipase Fingerstick Blood Sugar Results: 93 Critical Care Progress Note - Nutrition Nutrition: Nutrition Category Date Time Status NPO Diet [DIET] Diets 03/29/17 Lunch Active
--- NOTE | 2017-04-02 14:43 | PCM.IRP ---
Chief Complaint: gasrric outlet obstruction persists. plan on gastric bypass if not resolved soon Objective - Vital Signs/Intake and Output Vital Signs (last 24 hours): Vital Signs - 24 hr 04/01/17 04/01/17 04/01/17 15:09 16:00 16:09 Temperature 98.5 F Pulse Rate 110 H 129 H Respiratory 24 31 H Rate Blood Pressure 110/75 123/82 O2 Sat by Pulse 100 97 Oximetry 04/01/17 04/01/17 04/01/17 17:09 18:09 19:39 Temperature Pulse Rate 128 H 116 H 119 H Respiratory 21 32 H 25 H Rate Blood Pressure 121/80 102/75 100/67 O2 Sat by Pulse 99 100 96 Oximetry 04/01/17 04/01/17 04/01/17 20:00 20:09 20:40 Temperature 98 F Pulse Rate 129 H 129 H Respiratory 33 H 35 H Rate Blood Pressure 109/80 118/86 O2 Sat by Pulse 96 97 Oximetry 04/01/17 04/01/17 04/01/17 21:00 21:09 21:39 Temperature Pulse Rate 125 H 128 H 130 H Respiratory 18 18 26 H Rate Blood Pressure 116/80 116/81 O2 Sat by Pulse 99 96 95 Oximetry 04/01/17 04/01/17 04/01/17 22:00 22:09 22:39 Temperature Pulse Rate 120 H 137 H 124 H Respiratory 33 H 24 32 H Rate Blood Pressure 132/93 H 113/76 O2 Sat by Pulse 100 Oximetry 04/01/17 04/01/17 04/01/17 23:00 23:09 23:39 Temperature Pulse Rate 120 H 136 H 115 H Respiratory 24 34 H 26 H Rate Blood Pressure 133/71 106/61 O2 Sat by Pulse Oximetry 04/01/17 04/02/17 04/02/17 23:40 00:00 00:09 Temperature 98 F Pulse Rate 137 H 133 H Respiratory 21 30 H Rate Blood Pressure 112/80 O2 Sat by Pulse Oximetry 04/02/17 04/02/17 04/02/17 00:25 00:39 01:00 Temperature Pulse Rate 133 H 122 H 141 H Respiratory 34 H 26 H 20 Rate Blood Pressure 118/76 O2 Sat by Pulse Oximetry 04/02/17 04/02/17 04/02/17 01:30 01:39 02:00 Temperature Pulse Rate 134 H 125 H 123 H Respiratory 25 H 29 H 20 Rate Blood Pressure 108/66 111/72 O2 Sat by Pulse Oximetry 04/02/17 04/02/17 04/02/17 02:09 02:40 03:00 Temperature Pulse Rate 126 H 160 H 134 H Respiratory 23 17 30 H Rate Blood Pressure 109/72 123/100 H O2 Sat by Pulse Oximetry 04/02/17 04/02/17 04/02/17 04:00 04:13 04:43 Temperature Pulse Rate 160 H 161 H 147 H Respiratory 47 H 55 H 36 H Rate Blood Pressure 130/97 H 112/70 O2 Sat by Pulse 93 L Oximetry 04/02/17 04/02/17 04/02/17 05:00 05:13 05:43 Temperature Pulse Rate 163 H 145 H 143 H Respiratory 47 H 36 H 36 H Rate Blood Pressure 107/68 107/70 O2 Sat by Pulse Oximetry 04/02/17 04/02/17 04/02/17 06:00 06:13 07:13 Temperature Pulse Rate 142 H 142 H 141 H Respiratory 30 H 28 H 28 H Rate Blood Pressure 104/69 109/70 O2 Sat by Pulse 91 L Oximetry 04/02/17 04/02/17 04/02/17 08:00 08:13 09:13 Temperature 98.2 F Pulse Rate 133 H 127 H Respiratory 26 H 21 Rate Blood Pressure 98/62 L 89/48 L O2 Sat by Pulse 91 L 90 L Oximetry 04/02/17 04/02/17 10:13 11:13 Temperature Pulse Rate 125 H 123 H Respiratory 23 19 Rate Blood Pressure 85/47 L 93/55 L O2 Sat by Pulse 90 L 89 L Oximetry Intake and Output (last 12 hours): Intake & Output 04/01/17 04/02/17 04/02/17 18:59 06:59 18:59 Intake Total 2100 1420 625 Output Total 2950 1905 250 Balance -850 -485 375 Weight 147 lb 12.8 oz Intake: Intake, IV Amount 1900 1420 625 Left Distal Port PICC 100 70 Left PICC 1050 100 Left PICC #2 750 1250 625 Tube Feeding 200 Output: Gastric Amount 100 Right Nares 100 Urine 2950 1630 250 Urethral (Tovar) 2950 1630 250 Stool 175 - Medications Medications: Current Medications Acetaminophen (Tylenol 325 Mg Supp) 325 mg SC Q4 PRN PRN Reason: Fever >100.4 F Last Admin: 03/30/17 08:15 Dose: 325 mg Haloperidol Lactate (Haldol) 1 mg IVP BID PRN PRN Reason: Agitation Last Admin: 04/02/17 09:00 Dose: 1 mg Metronidazole (Flagyl) 500 mg in 100 mls @ 100 mls/hr IVPB Q8 [facility] Last Admin: 04/02/17 14:00 Dose: 100 mls/hr Piperacillin Sod/Tazobactam Sod (Zosyn 3.375 Gm Iv Premix) 3.375 gm in 50 mls @ 100 mls/hr IVPB Q8H [facility] Last Admin: 04/02/17 09:30 Dose: 100 mls/hr Potassium Chloride 20 meq/ (Dextrose/Sodium Chloride) 1,010 mls @ 125 mls/hr IV .Q8H5M [facility] Last Admin: 04/02/17 12:00 Dose: 125 mls/hr Potassium Chloride (Potassium Chloride 10 Meq/100 Ml) 10 meq in 100 mls @ 50 mls/hr IVPB Q1H [facility] Stop: 04/02/17 14:59 Last Admin: 04/02/17 14:00 Dose: 50 mls/hr Parenteral Electrolytes 20 ml/Potassium Chloride 40 meq/Multivitamins/Vitamin C 10 ml/Chromium/Copper/Manganese/Zinc 1 ml/ Insulin Human Regular 10 unit/ Amino Acids 1,051.1 mls @ 42 mls/hr IV .Q24H [facility] Stop: 04/03/17 18:01 Lorazepam (Ativan) 0.5 mg IVP Q3H PRN PRN Reason: Anxiety Last Admin: 04/02/17 12:00 Dose: 0.5 mg Ondansetron HCl (Zofran Inj) 4 mg IVP Q6H PRN PRN Reason: Nausea/Vomiting Pantoprazole Sodium (Protonix Inj) 40 mg IVP DAILY [facility] Last Admin: 04/02/17 13:58 Dose: 40 mg - Labs Labs (last 24 hours): Laboratory Results - last 24 hr 04/01/17 04/02/17 04/02/17 17:52 00:15 06:58 WBC RBC Hgb Hct MCV MCH MCHC RDW Plt Count MPV Neut % (Auto) Lymph % (Auto) [place] % (Auto) Eos % (Auto) Baso % (Auto) Neut # Lymph # [place] # Eos # Baso # Neutrophils % (Manual) Lymphocytes % (Manual) Monocytes % (Manual) Eosinophils % (Manual) Platelet Estimate RBC Morphology Sodium 133 Potassium 3.5 L Chloride 99 Carbon Dioxide 29 Anion Gap 8 L BUN < 2 L Creatinine 0.5 L Est GFR ( Amer) > 60 Est GFR (Non-Af Amer) > 60 POC Glucose (mg/dL) 93 112 H Random Glucose 130 H Calcium 7.3 L Total Bilirubin 0.4 AST 16 ALT 25 Alkaline Phosphatase 58 Total Protein 4.8 L Albumin 2.4 L Globulin 2.4 Albumin/Globulin Ratio 1.0 Amylase 94 Lipase 320 H 04/02/17 04/02/17 06:58 11:39 WBC 16.8 H RBC 3.21 L Hgb 9.1 L Hct 26.7 L MCV 83.2 MCH 28.3 MCHC 34.0 RDW 13.5 Plt Count 230 MPV 8.9 Neut % (Auto) 83.3 H Lymph % (Auto) 5.7 L [place] % (Auto) 9.7 Eos % (Auto) 1.2 Baso % (Auto) 0.1 Neut # 14.0 H Lymph # 1.0 [place] # 1.6 H Eos # 0.2 Baso # 0.0 Neutrophils % (Manual) 82 H Lymphocytes % (Manual) 5 L Monocytes % (Manual) 12 H Eosinophils % (Manual) 1 Platelet Estimate Normal RBC Morphology Normal Sodium Potassium Chloride Carbon Dioxide Anion Gap BUN Creatinine Est GFR ( Amer) Est GFR (Non-Af Amer) POC Glucose (mg/dL) 110 Random Glucose Calcium Total Bilirubin AST ALT Alkaline Phosphatase Total Protein Albumin Globulin Albumin/Globulin Ratio Amylase Lipase
--- NOTE | 2017-04-02 16:07 | PN ---
LOCATION: ICU 4. SUBJECTIVE: This is a 36-year-old female seen in rounds without significant clinical changes, had reported bowel movement, with early done CAT scan of the abdomen, chest and the pelvis indicative of gastric distention with possible gastric pneumatosis and possible gastroparesis with left more than right pleural effusion. Rest of the report is seen. Today's labs showed leukocytosis of 16.8, hemoglobin 9.1, hematocrit 26.7 without evidence of active bleeding with normal platelet count with low potassium 3.5, low BUN and creatinine with blood glucose level 130, low calcium 7.3, low total protein 4.8, and low albumin 2.4. Her lipase level is still elevated at 320, most likely inducing her pleural effusion with acute pancreatitis. PHYSICAL EXAMINATION: GENERAL: A 36-year-old female, poorly cooperative. VITAL SIGNS: Afebrile with pulse of 124, blood pressure 96/60. HEENT: Showed pale, dry oral mucous membrane, nonicteric sclerae, NG tube is in place. HEART: Positive S1 and S2 with increased rate. LUNGS: Few scattered crepitation with decreased air entry at bases. ABDOMEN: With [id number] distention. Bowel sounds are hypoactive. EXTREMITIES: With lower extremities slight edematous changes. No clubbing or cyanosis. NEUROLOGIC: No reported new neurological deficits, sensory or motor. IMPRESSION: 1. Abnormal CAT scan of the abdomen and pelvis. 2. Anemia. 3. Possible gastroparesis with narrowing at the level of the third portion of the duodenum with peptic ulcer disease by upper endoscopy. 4. Acute pancreatitis. 5. Pleural effusion. 6. Schizophrenia by history. 7. Malnutrition with hypoalbuminemia. SUGGESTIONS: 1. Continue current management. 2. Central hyperalimentation. 3. Surgical reevaluation for possible exploratory laparotomy if the patient's symptoms continue. William Michael MD
[2017-04-02] MEDS ORDERED: Morphine 4 MG/ML VIAL IVP STA (17:11)
[2017-04-02] MEDS: PPN # 1 IV SCH (18:40)
[2017-04-03] MEDS: Potassium Chloride 20 MEQ in Dextrose 5%/0.9% NS 1,000 ML IV SCH ×4 (00:33→19:30)
--- NOTE | 2017-04-03 01:30 | CON ---
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 Patient was previously seen by Dr. Woodruff. At this time, it does not appear there is anything surgical that could be done. REVIEW OF SYSTEMS: No system review were obtained. Most of the history was obtained, particularly a 30-pound weight loss was obtained through discussion with her sisters. PHYSICAL EXAMINATION: GENERAL: She is a woman whose knees are bent up. She is unable to answer any questions. Examination reveals a thin, pale woman. The knee is drawn up. ABDOMEN: Her abdomen is soft and nontender. There are no masses. There is no organomegaly. LABORATORY DATA: Reviewed the CAT scan findings, particularly the recent CAT scan after decompression. I pulled back her NG tube because there was still a lot of air in the stomach, it frankly should not be there and that should be able to be suctioned out. At this point, I think she needs to continue the nasogastric tube suction. If this does not improve, surgical procedure could be done, but we have to be aware of the fact that even with a surgical procedure, there will be a great amount of gastric atony and this may be persistent for quite some time after the procedure. PLAN: Our plan at present is to monitor her, continue nasogastric tube suction. No immediate plans of surgery, but ultimately this needs to be done if necessary. No matter what is done, I do not anticipate a good outcome. Only other option is to see if there is a gastric pacemaker or some other treatment that could be given. Endoscopy has not revealed any intrinsic lesions responsible for obstruction. El Mendez Jr., MD
[2017-04-03] MEDS: Piperacill/Tazo 3.375gm in Dex 3.375 GM/50 ML BAG IVPB SCH ×3 (02:21→17:49)
[2017-04-03] MEDS: metroNIDAZOLE IV 500 mg/100 ml 500 MG/100 ML BAG IVPB SCH ×3 (05:04→22:37)
[2017-04-03 07:01] LABS: BASO % 0.3 % (0.0-2.0); EOS # 0.4 K/uL (0.0-0.7); EOS % 2.2 % (0.0-4.0); HEMOGLOBIN 9.8 g/dL (11.0-16.0); LYMPH # 1.7 K/uL (1.0-4.3); LYMPH % 9.5 % (20.0-40.0); MEAN CELL VOLUME 83.1 fL (81.0-99.0); MEAN CORPUSCULAR HEMOGLOBIN 28.2 pg (27.0-31.0); MEAN CORPUSCULAR HGB CONC 33.9 g/dL (33.0-37.0); MEAN PLATELET VOLUME 8.5 fL (7.2-11.7); MONO # 2.1 K/uL (0.0-0.8); MONO % 11.7 % (0.0-10.0); NEUT # 13.4 K/uL (1.8-7.0); NEUT % 76.3 % (50.0-75.0); PLATELET COUNT 314 K/uL (130-400); RBC 3.46 Mil/uL (3.80-5.20); RED CELL DISTRIBUTION WIDTH 13.4 % (11.5-14.5); WHITE BLOOD COUNT 17.6 K/uL (4.8-10.8)
[2017-04-03 07:23] LABS: ALB/GLOB RATIO 0.9 (1.0-2.1); ALBUMIN 2.8 g/dL (3.5-5.0); ALT/SGPT 26 U/L (9-52); AST/SGOT 18 U/L (14-36); BLOOD UREA NITROGEN 3 mg/dL (7-17); CALCIUM 7.9 mg/dl (8.6-10.4); GFR AFRICAN-AMERICAN > 60; GFR NON-AFRICAN AMERICAN > 60
[2017-04-03 08:01] LABS: BANDS 1 % (0-2); EOSINOPHIL 2 % (0-4); LYMPHOCYTE 10 % (20-40); MONOCYTE 11 % (0-10); NEUTROPHIL 76 % (50-75); PLATELET ESTIMATE NORMAL (NORMAL); TOTAL CELLS COUNTED 100
--- NOTE | 2017-04-03 10:43 | CP.PCM.PN ---
Subjective - Date & Time of Evaluation Date of Evaluation: 04/03/17 Time of Evaluation: 10:39 - Subjective Subjective: Progress note for Dr. Reyes's Service Pt was seen and examined at bedside. She continues to have abdominal pain and is visually uncomfortable. There is consideration being given to gastric outlet obstruction however the etiology remains unclear. The patient was unable to be started on tube feeds and TPN will be started. There is some consideration being give to possible ex-lap to narrow the differential. She has been evaluated by Dr. Woodruff and Dr. Mendez for surgical intervention. Possible gastric bypass if symptoms persist. Objective - Vital Signs/Intake and Output Vital Signs (last 24 hours): Temp Pulse Resp BP Pulse Ox 98.2 F 125 H 24 90/42 L 100 04/03/17 08:00 04/03/17 09:00 04/03/17 09:00 04/03/17 09:00 04/03/17 09:00 Intake and Output: 04/03/17 04/03/17 06:59 18:59 Intake Total 1962 501 Output Total 2440 455 Balance -478 46 - Medications Medications: Current Medications Acetaminophen (Tylenol 325 Mg Supp) 325 mg [place] Q4 PRN PRN Reason: Fever >100.4 F Last Admin: 03/30/17 08:15 Dose: 325 mg Haloperidol Lactate (Haldol) 1 mg IVP BID PRN PRN Reason: Agitation Last Admin: 04/03/17 10:34 Dose: 1 mg Metronidazole (Flagyl) 500 mg in 100 mls @ 100 mls/hr IVPB Q8 [facility] Last Admin: 04/03/17 05:04 Dose: 100 mls/hr Piperacillin Sod/Tazobactam Sod (Zosyn 3.375 Gm Iv Premix) 3.375 gm in 50 mls @ 100 mls/hr IVPB Q8H [facility] Last Admin: 04/03/17 09:34 Dose: 100 mls/hr Potassium Chloride 20 meq/ (Dextrose/Sodium Chloride) 1,010 mls @ 125 mls/hr IV .Q8H5M [facility] Last Admin: 04/03/17 02:25 Dose: Not Given Parenteral Electrolytes 20 ml/Potassium Chloride 40 meq/Multivitamins/Vitamin C 10 ml/Chromium/Copper/Manganese/Zinc 1 ml/ Insulin Human Regular 10 unit/ Amino Acids 1,051.1 mls @ 42 mls/hr IV .Q24H [facility] Stop: 04/03/17 18:01 Last Admin: 04/02/17 18:40 Dose: 42 mls/hr Lorazepam (Ativan) 0.5 mg IVP Q3H PRN PRN Reason: Anxiety Last Admin: 04/03/17 05:09 Dose: 0.5 mg Morphine Sulfate (Morphine) 2 mg IVP Q4 PRN PRN Reason: Pain, moderate (4-7) Last Admin: 04/03/17 08:30 Dose: 2 mg Morphine Sulfate (Morphine) 4 mg IVP Q4 PRN PRN Reason: Pain, severe (8-10) Ondansetron HCl (Zofran Inj) 4 mg IVP Q6H PRN PRN Reason: Nausea/Vomiting Pantoprazole Sodium (Protonix Inj) 40 mg IVP DAILY [facility] Last Admin: 04/03/17 09:34 Dose: 40 mg - Labs Labs: 04/03/17 06:50 04/03/17 06:51 PT 20.2 SECONDS (9.7-12.2) H 03/29/17 09:23 INR 1.8 03/29/17 09:23 APTT 30 SECONDS (21-34) 03/29/17 09:23 - Head Exam Head Exam: ATRAUMATIC, NORMOCEPHALIC - Eye Exam Eye Exam: EOMI - Respiratory Exam Respiratory Exam: Clear to Ausculation Bilateral - Cardiovascular Exam Cardiovascular Exam: REGULAR RHYTHM - GI/Abdominal Exam GI & Abdominal Exam: Guarding, Tenderness - Extremities Exam Extremities Exam: Normal Capillary Refill - Neurological Exam Neurological Exam: Alert - Skin Skin Exam: Dry, Warm Assessment and Plan - Assessment and Plan (Free Text) Plan: Plan Neuro: hx of Schizophrenia, patient has mental retardation and can speak some words based on observation Pain: Dilaudid 0.5 mg Q6H PRN, discontinued 03/29. Morphine 3 mg IV given twice on 04/02. Sedation: 1mg Haldol IVP Q12H PRN 0.5mg Ativan Q6H PRN discontinued 03/30 03/31 0.5mg Ativan Q6H PRN restarted Nausea: Zofran 4mg IVP Q6H PRN Psych: Psych Consult Dr. Mccloud: f/u 03/30 EKG to evaluate QTc Quetiapine (Seroquel) 200mg POBID, held d/t NGT on IWS Escitalopram (Lexapro) 10mg PO QD, held d/t NGT on IWS Cardio: 03/27 EKG Sinus tachycardia 138 bpm 03/30 EKG QTc 434, Sinus tachycardia at 153 bpm Pulm: Aspiration pneumonia s/p EGD with intubation then extubation 03/27 AB.22 03/27 CXR in infiltrates, no active pulmonary disease 03/30 CXR: poor inspiratory effort, areas suggestive of aspiration pneumonia 04/02: CT abdomen/pelvis/chest: pleural effusions, bilateral perihilar consolidations possibly due to multifocal pneumonia vs. atelectasis Endo: 03/28 Hemoglobin A1c 5.3 GI: 03/28 Lipase 8456 03/29 Lipase 322 03/30 Lipase 64 03/28 00:18 CT abdomen/pelvis with IV contrast: gastric distention 32cm and distention of the first and third and second portion of duodenum. Transition and complete decompression of third portion of duodenum. pancreas unremarkable, spleen unremarkable, partially contracted gallbladder. duodenal obstruction v delayed emptying v gastroparesis. Fluid distention of distal esophagus 3.3cm representing gastric emptying v gastroesophageal reflux. f/u 03/[address] abdomen/pelvis with IV contrast: significantly dilated stomach with retained food and fluid. significantly diminished prior to earlier CT 03/28. No free intraperitoneal gas identified. contrast noted in Gallbladder. 03/28 FOBT positive 03/[address] connected to suction. 03/28 NGT OP since insertion: 2600cc 03/29 2350 03/30 NGT 1160 03/31 NGT 630 04/01 NGT 800 f/u Strict I/Os General Surgery Consult: Dr. Woodruff 03/[address] Harmon to have EGD today. 03/[address] Harmon, place patient on Reglan to help with motility. 03/30 Abdominal xray/obstructive series: minimal distention of stomach compared to previous imaging studies 03/31 Pathology for Antrum biopsy from 03/29 EGD current biopsy negative for H pylori 04/01 f/u Dr. Harmon for repeat EGD. Reglan 5mg IVP Q6H 04/02 CT chest shows gastric distension measuring 27 cm with possible gastric pneumatosis. NG tube in fundus of stomach. Peripancreatic infiltration. Moderate intraperitoneal pelvic fluid with prominent surrounding peritoneal lining. Upper abdominal loculated ascites with peritoneal enhancement above spleen. Lipase 320. There is some consideration being given to gastric outlet obstruction. Pt has been evaluated by Dr. Woodruff and Dr. Mendez. Possible gastric bypass if symptoms continue. Tube feeds could not be started given clinical situation. TPN started. Renal: 03/27 UA: proteinuria urine output since insertion 360 average hourly output 60cc/hr f/u Strict I/Os 03/31 Potassium Phosphorus 15mmole @63cc/hr : 03/27 UA: hazy, specific gravity >1.060, 3+ urine protein, Urine bacteria, Urine Yeast Ceftriaxone 1gm IVPB QD 03/30 Urine Cx negative Heme: GI bleed H/H: 03/27 14.6/44.7 03/28 12.9/38.5 03/29 11.2/33.0 03/30 9.5/27.7 03/31 9.4/27.5 04/01 8.9/25.8 03/28 FOBT positive 03/30 GOBT positive 04/02 9.1/26.7 MSK: Patient can walk per sister, but is dizzy so hasn't walked PT/OT eval and treat when stable ID: Sepsis Code sepsis 03/28 02:20 03/28 lactate 9.7 03/28 lactate 01:05 9.2 03/28 lactate 06:15 1.3 03/27 WBC 26.7 03/28 WBC 30.2 03/29 WBC 21.3 03/30 WBC 16.1 03/31 WBC 15.7 f/u AM CBC 03/30 blood Culture x 2, negative 03/30 MRSA screen negative 03/30 Urine Cx negative Zosyn 500mg IVPB Q8H Tylenol 325mg NJ Q4H PRN 03/29 Neutrophils 75, Bands 9 03/30 Neutrophils 83, Bands 1 Flagyl 500mg IVPB Q8H Zosyn 3.375gm in 50cc IVPB Q8H 04/02 WBC 16.8- left shift no bands. Blood culturex2 negative 04/03 WBC 17.6- left shift with 1 band Prophylaxis: GI: Protonix Drip Zofran 4mg IVP Q6H PRN Nausea Tylenol 325mg [place] Q4H PRN Fluids: D5W/NS with 20meq KCl @ 250cc/hr Potassium 3.5- repletion prn Pt will remain in ICU. Possible gastric bypass as per surgery. Case Discussed with Dr. Reyes
--- NOTE | 2017-04-03 16:20 | CP.CCUPN ---
CCU Subjective - Physician Review Events Since Last Encounter (Free Text): 04/03/17 16:18 I spoke to the patient's family yesterday and it is being Family wants her to be at [facility]. I explained to the family about the process. The already called the transfer center. May need an accepting doctor for possible inpatient transfer which I explained to the family. patient today still tachycardic, moaning with pain. No abdominal distention, most epigastric pain noted NG tube in position, but much secretions is less. Family and bedside. she had a CT of the abdomen and pelv, showing still gastric distention. Pneumatosis I spoke to the patient's family, PMD, surgery team. Patient may need surgical intervention, seen by surgery team Unable to start feeding at Vital signs tachycardic, low-grade fever, and tachypnea. Chest good air entry, rales noted, hypoxic Regular and or so Abdomen soft Edema noted CT of the chest abdomen pelvis showing evidence of infiltrative changes in the left lung. Distention of the gastric stomach Other findings noted Edema noted. The pleural effusion possibly third spacing Elevated WBC, sepsis and pneumonia Assessment and recommendation: 36-ye admitted with gastric distention, unclear etiology, complicated with poor oral intake, pneumonia. Patient will need possibly surgery. NG tube suction. start the patient on TPN Antibiotic P aspiration precautions Continue to monitor in the ICU electrolytes monitoring Follow up with the surgery CCU Objective - Vital Signs / Intake & Output Vital Signs (Last 4 hours): Vital Signs Pulse Resp BP Pulse Ox 04/03/17 15:00 128 H 19 102/56 L 100 04/03/17 14:00 126 H 25 H 119/65 99 04/03/17 13:00 128 H 28 H 100/64 100 Intake and Output (Last 8hrs): Intake & Output 04/03/17 04/03/17 04/03/17 06:59 14:59 22:59 Intake Total 1336 1311 167 Output Total 1690 1245 100 Balance -354 66 67 Weight 147 lb Intake: Intake, IV Amount 1336 1311 167 Left Distal Port PICC 336 336 42 Left Proximal Port PICC 1000 975 125 Output: Urine 1690 1245 100 Urethral (Tovar) 1690 1245 100 - Physical Exam Head: Positive for: Atraumatic, Normocephalic. Negative for: Tenderness Pupils: Positive for: PERRL Extroacular Muscles: Positive for: EOMI Mouth: Positive for: Moist Mucous Membranes. Negative for: Dry, Drooling Nose (External): Positive for: Other (NGT in place) Nose (Internal): Positive for: Normal Inspection, Moist, Other (NGT in place) Neck: Positive for: Normal Range of Motion. Negative for: JVD, Lymphadenopathy Respiratory/Chest: Positive for: Clear to Auscultation. Negative for: Respiratory Distress, Accessory Muscle Use Cardiovascular: Positive for: Regular Rate and Rhythm, Normal S1, S2 Abdomen: Positive for: Tenderness, Guarding (slight guarding). Negative for: Distention Upper Extremity: Positive for: Normal Inspection, Normal ROM, Capillary Refill < 2s. Negative for: Edema Lower Extremity: Positive for: Normal Inspection. Negative for: Edema Neurological: Positive for: Other (patient does not speak). Negative for: Speech Normal Skin: Positive for: Warm, Pale Psychiatric: Positive for: Alert - Medications Active Medications: Active Medications Generic Name Dose Route Start Last Admin Trade Name Freq PRN Reason Stop Dose Admin Acetaminophen 325 mg 03/29/17 07:57 03/30/17 08:15 Tylenol 325 Mg Supp [place] 325 mg Q4 PRN Administration Fever >100.4 F Haloperidol Lactate 1 mg 03/29/17 18:47 04/03/17 10:34 Haldol IVP 1 mg BID PRN Administration Agitation Metronidazole 500 mg in 100 mls @ 100 mls/hr 03/27/17 23:45 04/03/17 13:05 Flagyl IVPB 100 mls/hr Q8 [facility] Administration Piperacillin Sod/Tazobactam Sod 3.375 gm in 50 mls @ 100 mls/hr 03/28/17 02: 30 04/03/17 09:34 Zosyn 3.375 Gm Iv Premix IVPB 100 mls/hr Q8H [facility] Administration Potassium Chloride 20 meq/ 1,010 mls @ 125 mls/hr 04/02/17 11:00 04/03/17 12: 15 Dextrose/Sodium Chloride IV 125 mls/hr .Q8H5M [facility] Administration Parenteral Electrolytes 20 ml/ 1,051.1 mls @ 42 mls/hr 04/02/17 18:00 18:40 Potassium Chloride 40 meq/ IV 04/03/17 18:01 42 mls/hr Multivitamins/Vitamin C 10 ml/ .Q24H [facility] Administration Chromium/Copper/Manganese/ Zinc 1 ml/ Insulin Human Regular 10 unit/ Amino Acids Sodium Chloride 35 meq/ 1,051.0052 mls @ 42 mls/hr 04/03/17 18:00 Potassium Chloride 30 meq/ IV Magnesium Sulfate 6 meq/ .Q24H [facility] Calcium Gluconate 4.5 meq/ Potassium Phosphate 15 mmole/ Insulin Human Regular 10 unit/ Chromium/Copper/Manganese/ Zinc 1 ml/ Multivitamins/ Vitamin C 10 ml/ Amino Acids Lorazepam 0.5 mg 04/01/17 16:08 04/03/17 05:09 Ativan IVP 0.5 mg Q3H PRN Administration Anxiety Morphine Sulfate 2 mg 04/02/17 21:29 04/03/17 08:30 Morphine IVP 2 mg Q4 PRN Administration Pain, moderate (4-7) Morphine Sulfate 4 mg 04/02/17 21:45 Morphine IVP Q4 PRN Pain, severe (8-10) Ondansetron HCl 4 mg 03/27/17 23:45 Zofran Inj IVP Q6H PRN Nausea/Vomiting Pantoprazole Sodium 40 mg 04/02/17 10:00 04/03/17 09:34 Protonix Inj IVP 40 mg DAILY [facility] Administration - Patient Studies Lab Studies: Lab Studies 04/03/17 04/03/17 04/03/17 Range/Units 11:23 06:51 06:50 WBC 17.6 H (4.8-10.8) K/uL RBC 3.46 L (3.80-5.20) Mil/uL Hgb 9.8 L (11.0-16.0) g/dL Hct 28.8 L (34.0-47.0) % MCV 83.1 (81.0-99.0) fL MCH 28.2 (27.0-31.0) pg MCHC 33.9 (33.0-37.0) g/dL RDW 13.4 (11.5-14.5) % Plt Count 314 (130-400) K/uL MPV 8.5 (7.2-11.7) fL Neut % (Auto) 76.3 H (50.0-75.0) % Lymph % (Auto) 9.5 L (20.0-40.0) % [place] % (Auto) 11.7 H (0.0-10.0) % Eos % (Auto) 2.2 (0.0-4.0) % Baso % (Auto) 0.3 (0.0-2.0) % Neut # 13.4 H (1.8-7.0) K/uL Lymph # 1.7 (1.0-4.3) K/uL [place] # 2.1 H (0.0-0.8) K/uL Eos # 0.4 (0.0-0.7) K/uL Baso # 0.0 (0.0-0.2) K/uL Neutrophils % (Manual) 76 H (50-75) % Band Neutrophils % 1 (0-2) % Lymphocytes % (Manual) 10 L (20-40) % Monocytes % (Manual) 11 H (0-10) % Eosinophils % (Manual) 2 (0-4) % Platelet Estimate Normal (NORMAL) RBC Morphology Normal Sodium 129 L (132-148) mmol/L Potassium 4.2 (3.6-5.2) mmol/L Chloride 96 L (98-107) mmol/L Carbon Dioxide 28 (22-30) mmol/L Anion Gap 9 L (10-20) BUN 3 L (7-17) mg/dL Creatinine 0.5 L (0.7-1.2) mg/dL Est GFR ( Amer) > 60 Est GFR (Non-Af Amer) > 60 POC Glucose (mg/dL) 124 H (65-110) mg/dL Random Glucose 100 (65-105) mg/dL Calcium 7.9 L (8.6-10.4) mg/dl Phosphorus 2.0 L (2.5-4.5) mg/dL Magnesium 1.8 (1.6-2.3) mg/dL Total Bilirubin 0.6 (0.2-1.3) mg/dL AST 18 (14-36) U/L ALT 26 (9-52) U/L Alkaline Phosphatase 72 (38-126) U/L Total Protein 6.0 L (6.3-8.3) g/dL Albumin 2.8 L (3.5-5.0) g/dL Globulin 3.2 (2.2-3.9) gm/dL Albumin/Globulin Ratio 0.9 L (1.0-2.1) 04/03/17 04/02/17 04/02/17 Range/Units 05:40 23:48 17:54 WBC (4.8-10.8) K/uL RBC (3.80-5.20) Mil/uL Hgb (11.0-16.0) g/dL Hct (34.0-47.0) % MCV (81.0-99.0) fL MCH (27.0-31.0) pg MCHC (33.0-37.0) g/dL RDW (11.5-14.5) % Plt Count (130-400) K/uL MPV (7.2-11.7) fL Neut % (Auto) (50.0-75.0) % Lymph % (Auto) (20.0-40.0) % [place] % (Auto) (0.0-10.0) % Eos % (Auto) (0.0-4.0) % Baso % (Auto) (0.0-2.0) % Neut # (1.8-7.0) K/uL Lymph # (1.0-4.3) K/uL [place] # (0.0-0.8) K/uL Eos # (0.0-0.7) K/uL Baso # (0.0-0.2) K/uL Neutrophils % (Manual) (50-75) % Band Neutrophils % (0-2) % Lymphocytes % (Manual) (20-40) % Monocytes % (Manual) (0-10) % Eosinophils % (Manual) (0-4) % Platelet Estimate (NORMAL) RBC Morphology Sodium (132-148) mmol/L Potassium (3.6-5.2) mmol/L Chloride (98-107) mmol/L Carbon Dioxide (22-30) mmol/L Anion Gap (10-20) BUN (7-17) mg/dL Creatinine (0.7-1.2) mg/dL Est GFR ( Amer) Est GFR (Non-Af Amer) POC Glucose (mg/dL) 107 104 91 (65-110) mg/dL Random Glucose (65-105) mg/dL Calcium (8.6-10.4) mg/dl Phosphorus (2.5-4.5) mg/dL Magnesium (1.6-2.3) mg/dL Total Bilirubin (0.2-1.3) mg/dL AST (14-36) U/L ALT (9-52) U/L Alkaline Phosphatase (38-126) U/L Total Protein (6.3-8.3) g/dL Albumin (3.5-5.0) g/dL Globulin (2.2-3.9) gm/dL Albumin/Globulin Ratio (1.0-2.1) Laboratory Results - last 24 hr 04/02/17 04/02/17 04/03/17 17:54 23:48 05:40 WBC RBC Hgb Hct MCV MCH MCHC RDW Plt Count MPV Neut % (Auto) Lymph % (Auto) [place] % (Auto) Eos % (Auto) Baso % (Auto) Neut # Lymph # [place] # Eos # Baso # Neutrophils % (Manual) Band Neutrophils % Lymphocytes % (Manual) Monocytes % (Manual) Eosinophils % (Manual) Platelet Estimate RBC Morphology Sodium Potassium Chloride Carbon Dioxide Anion Gap BUN Creatinine Est GFR ( Amer) Est GFR (Non-Af Amer) POC Glucose (mg/dL) 91 104 107 Random Glucose Calcium Phosphorus Magnesium Total Bilirubin AST ALT Alkaline Phosphatase Total Protein Albumin Globulin Albumin/Globulin Ratio 04/03/17 04/03/17 04/03/17 06:50 06:51 11:23 WBC 17.6 H RBC 3.46 L Hgb 9.8 L Hct 28.8 L MCV 83.1 MCH 28.2 MCHC 33.9 RDW 13.4 Plt Count 314 MPV 8.5 Neut % (Auto) 76.3 H Lymph % (Auto) 9.5 L [place] % (Auto) 11.7 H Eos % (Auto) 2.2 Baso % (Auto) 0.3 Neut # 13.4 H Lymph # 1.7 [place] # 2.1 H Eos # 0.4 Baso # 0.0 Neutrophils % (Manual) 76 H Band Neutrophils % 1 Lymphocytes % (Manual) 10 L Monocytes % (Manual) 11 H Eosinophils % (Manual) 2 Platelet Estimate Normal RBC Morphology Normal Sodium 129 L Potassium 4.2 Chloride 96 L Carbon Dioxide 28 Anion Gap 9 L BUN 3 L Creatinine 0.5 L Est GFR ( Amer) > 60 Est GFR (Non-Af Amer) > 60 POC Glucose (mg/dL) 124 H Random Glucose 100 Calcium 7.9 L Phosphorus 2.0 L Magnesium 1.8 Total Bilirubin 0.6 AST 18 ALT 26 Alkaline Phosphatase 72 Total Protein 6.0 L Albumin 2.8 L Globulin 3.2 Albumin/Globulin Ratio 0.9 L Fingerstick Blood Sugar Results: 124 Critical Care Progress Note - Nutrition Nutrition: Nutrition Category Date Time Status NPO Diet [DIET] Diets 03/29/17 Lunch Active
[2017-04-03] MEDS: PPN # 2 IV SCH (17:50)
[2017-04-03] MEDS: PPN # 1 IV SCH (18:12)
[2017-04-03 21:14] LABS: BASO # 0.1 K/uL (0.0-0.2); EOS # 0.3 K/uL (0.0-0.7); EOS % 1.7 % (0.0-4.0); HEMOGLOBIN 9.2 g/dL (11.0-16.0); MEAN PLATELET VOLUME 8.1 fL (7.2-11.7); RED CELL DISTRIBUTION WIDTH 13.3 % (11.5-14.5)
[2017-04-03] MEDS ORDERED: Potassium Phosphate 3 mmol/ml Inj IV ONE (21:17)
[2017-04-03 21:24] LABS: BASO % 0.4 % (0.0-2.0); LYMPH # 1.9 K/uL (1.0-4.3); LYMPH % 10.2 % (20.0-40.0); MEAN CELL VOLUME 83.9 fL (81.0-99.0); MEAN CORPUSCULAR HEMOGLOBIN 27.1 pg (27.0-31.0); MEAN CORPUSCULAR HGB CONC 32.2 g/dL (33.0-37.0); MONO # 1.5 K/uL (0.0-0.8); MONO % 8.4 % (0.0-10.0); NEUT # 14.6 K/uL (1.8-7.0); NEUT % 79.3 % (50.0-75.0); RBC 3.39 Mil/uL (3.80-5.20); WHITE BLOOD COUNT 18.4 K/uL (4.8-10.8)
[2017-04-03 21:43] LABS: ALB/GLOB RATIO 0.9 (1.0-2.1); ALBUMIN 2.8 g/dL (3.5-5.0); ALT/SGPT 22 U/L (9-52); AST/SGOT 15 U/L (14-36); BLOOD UREA NITROGEN 3 mg/dL (7-17); CALCIUM 7.5 mg/dl (8.6-10.4); GFR AFRICAN-AMERICAN > 60; GFR NON-AFRICAN AMERICAN > 60
[2017-04-03] MEDS ORDERED: Dextrose 50% VIAL Inj (50 ml) IV STA (21:52)
[2017-04-03] MEDS ORDERED: (Novolin R) Insulin Human Regular 100 units/ml vial IV ONE (21:55)
[2017-04-03] MEDS ORDERED: POTASSIUM PHOSPHATE IV ONE (22:00)
[2017-04-03] MEDS ORDERED: SODIUM CHLORIDE IV ONE (22:00)
[2017-04-03] MEDS ORDERED: Sodium Bicarbonate (8.4%) 50 Meq Syringe IVP ONE (22:01)
[2017-04-03] MEDS: Dextrose 5%/0.9% NS 1,000 ML IV SCH (22:32)
--- NOTE | 2017-04-03 22:59 | CP.PCM.PN ---
Subjective - Date & Time of Evaluation Date of Evaluation: 04/03/17 Time of Evaluation: 06:35 - Subjective Subjective: Gen Sx: Dr Mendez Pt S&E. Condition remains unchanged. Remains tachycardic and tachypneic. Continues to have bowel movements. NGT output has reduced to <200cc per day. No significant abdominal pain on examination though pt responds to being touched in any firm manner regardless of location. Objective - Vital Signs/Intake and Output Vital Signs (last 24 hours): Temp Pulse Resp BP Pulse Ox 98 F 130 H 25 H 100/71 100 04/03/17 20:00 04/03/17 20:00 04/03/17 20:00 04/03/17 19:59 04/03/17 20:00 Intake and Output: 04/03/17 04/04/17 18:59 06:59 Intake Total 1979 501 Output Total 2465 380 Balance -486 121 - Medications Medications: Current Medications Acetaminophen (Tylenol 325 Mg Supp) 325 mg [place] Q4 PRN PRN Reason: Fever >100.4 F Last Admin: 03/30/17 08:15 Dose: 325 mg Haloperidol Lactate (Haldol) 1 mg IVP BID PRN PRN Reason: Agitation Last Admin: 04/03/17 10:34 Dose: 1 mg Metronidazole (Flagyl) 500 mg in 100 mls @ 100 mls/hr IVPB Q8 [facility] Last Admin: 04/03/17 22:37 Dose: 100 mls/hr Piperacillin Sod/Tazobactam Sod (Zosyn 3.375 Gm Iv Premix) 3.375 gm in 50 mls @ 100 mls/hr IVPB Q8H [facility] Last Admin: 04/03/17 17:49 Dose: 100 mls/hr Sodium Chloride 35 meq/Potassium Chloride 30 meq/Magnesium Sulfate 6 meq/ Calcium Gluconate 4.5 meq/Potassium Phosphate 15 mmole/Insulin Human Regular 10 unit/Chromium/Copper/Manganese/Zinc 1 ml/ Multivitamins/Vitamin C 10 ml/ Amino Acids 1,051.0052 mls @ 42 mls/hr IV .Q24H [facility] Last Admin: 04/03/17 17:50 Dose: 42 mls/hr Dextrose/Sodium Chloride (Dextrose 5%/0.9% Ns 1000 Ml) 1,000 mls @ 125 mls/hr IV .Q8H [facility] Last Admin: 04/03/17 22:32 Dose: 125 mls/hr Lorazepam (Ativan) 0.5 mg IVP Q3H PRN PRN Reason: Anxiety Last Admin: 04/03/17 18:11 Dose: 0.5 mg Metoclopramide HCl (Reglan) 10 mg IVP Q12 [facility] Last Admin: 04/03/17 22:32 Dose: 10 mg Morphine Sulfate (Morphine) 2 mg IVP Q4 PRN PRN Reason: Pain, moderate (4-7) Last Admin: 04/03/17 22:39 Dose: 2 mg Morphine Sulfate (Morphine) 4 mg IVP Q4 PRN PRN Reason: Pain, severe (8-10) Ondansetron HCl (Zofran Inj) 4 mg IVP Q6H PRN PRN Reason: Nausea/Vomiting Pantoprazole Sodium (Protonix Inj) 40 mg IVP DAILY [facility] Last Admin: 04/03/17 09:34 Dose: 40 mg - Labs Labs: 04/03/17 21:04 04/03/17 21:04 PT 20.2 SECONDS (9.7-12.2) H 03/29/17 09:23 INR 1.8 03/29/17 09:23 APTT 30 SECONDS (21-34) 03/29/17 09:23 - Constitutional Appears: No Acute Distress - Respiratory Exam Respiratory Exam: absent: Accessory Muscle Use, Respiratory Distress - Cardiovascular Exam Cardiovascular Exam: Tachycardia, REGULAR RHYTHM - GI/Abdominal Exam GI & Abdominal Exam: Soft. absent: Distended, Firm, Guarding, Rigid, Hernia, Mass - Neurological Exam Neurological Exam: Alert, Awake - Psychiatric Exam Psychiatric exam: Normal Affect, Normal Mood Assessment and Plan - Assessment and Plan (Free Text) Assessment: 36F with gastric distension of unknown etiology Plan: there are multiple notes regarding possible surgery however unclear what surgery, if any, pt should require per notes, there is consideration of gastric pacemaker vs bypass however; pt is clearly not obstructed. Having bowel movements. NGT output has reduced to minimal. Abdomen is soft, non-distended and pt does not appear tender. EGD showed stricture of third portion of duodenum but duodenum itself was clean and free of stool at time of examination. It would be extremely unusual to attribute tachycardia, leukocytosis and fever to a gastric outlet obstruction or even an obstruction of the proximal small intestine neither of these options stated above would have a promising outcome for a young girl unable to communicate the subsequent sequelae of such options including marginal ulcers, anastomotic dehiscences, electrolyte abnormalities, pancreatitis, and small bowel obstructions As stated before, further investigation into the nature of the obstruction would be the first thing, including but not limited to repeat EGD, EUS, or MRI of the abdomen though the later is unlikely feasible without pt cooperation. A diagnostic laparoscopy, as suggested before, would be a poor choice considering the area under question (the third portion of the duodenum) is a retroperitoneal structure and would not be feasibly accessed without significant mobilization and a large laparotomy. As of yesterday, there is consideration of transfer to a higher level of care at [place]. Per ICU note family is requesting and arrangements are being made. Would continue current care of treatment until transfer can be accomplished, with close focus on electrolyte abnormalities. will d/w Dr Andrea Camacho, PGY3
[2017-04-04] MEDS: Piperacill/Tazo 3.375gm in Dex 3.375 GM/50 ML BAG IVPB SCH ×3 (01:34→17:40)
[2017-04-04] MEDS: Morphine 4 MG/ML VIAL IVP PRN ×3 (02:45→17:32)
--- NOTE | 2017-04-04 05:44 | CP.PCM.PN ---
Subjective - Date & Time of Evaluation Date of Evaluation: 04/04/17 Time of Evaluation: 05:42 - Subjective Subjective: Pt condition remains unchanged. Resting comfortably. Tachycardia persists. Per nursing transfer pending accepting physician. Objective - Vital Signs/Intake and Output Vital Signs (last 24 hours): Temp Pulse Resp BP Pulse Ox 100.1 F H 134 H 26 H 103/66 100 04/04/17 00:00 04/04/17 00:59 04/04/17 00:59 04/04/17 00:59 04/04/17 00:59 Intake and Output: 04/03/17 04/04/17 18:59 06:59 Intake Total 1979 977 Output Total 2465 730 Balance -486 247 - Medications Medications: Current Medications Acetaminophen (Tylenol 325 Mg Supp) 325 mg [place] Q4 PRN PRN Reason: Fever >100.4 F Last Admin: 03/30/17 08:15 Dose: 325 mg Haloperidol Lactate (Haldol) 1 mg IVP BID PRN PRN Reason: Agitation Last Admin: 04/03/17 10:34 Dose: 1 mg Metronidazole (Flagyl) 500 mg in 100 mls @ 100 mls/hr IVPB Q8 [facility] Last Admin: 04/03/17 22:37 Dose: 100 mls/hr Piperacillin Sod/Tazobactam Sod (Zosyn 3.375 Gm Iv Premix) 3.375 gm in 50 mls @ 100 mls/hr IVPB Q8H [facility] Last Admin: 04/04/17 01:34 Dose: 100 mls/hr Sodium Chloride 35 meq/Potassium Chloride 30 meq/Magnesium Sulfate 6 meq/ Calcium Gluconate 4.5 meq/Potassium Phosphate 15 mmole/Insulin Human Regular 10 unit/Chromium/Copper/Manganese/Zinc 1 ml/ Multivitamins/Vitamin C 10 ml/ Amino Acids 1,051.0052 mls @ 42 mls/hr IV .Q24H [facility] Last Admin: 04/03/17 17:50 Dose: 42 mls/hr Dextrose/Sodium Chloride (Dextrose 5%/0.9% Ns 1000 Ml) 1,000 mls @ 125 mls/hr IV .Q8H [facility] Last Admin: 04/03/17 22:32 Dose: 125 mls/hr Lorazepam (Ativan) 0.5 mg IVP Q3H PRN PRN Reason: Anxiety Last Admin: 04/04/17 01:13 Dose: 0.5 mg Metoclopramide HCl (Reglan) 10 mg IVP Q12 [facility] Last Admin: 04/03/17 22:32 Dose: 10 mg Morphine Sulfate (Morphine) 2 mg IVP Q4 PRN PRN Reason: Pain, moderate (4-7) Last Admin: 04/03/17 22:39 Dose: 2 mg Morphine Sulfate (Morphine) 4 mg IVP Q4 PRN PRN Reason: Pain, severe (8-10) Last Admin: 04/04/17 02:45 Dose: 4 mg Ondansetron HCl (Zofran Inj) 4 mg IVP Q6H PRN PRN Reason: Nausea/Vomiting Pantoprazole Sodium (Protonix Inj) 40 mg IVP DAILY [facility] Last Admin: 04/03/17 09:34 Dose: 40 mg - Labs Labs: 04/03/17 21:04 04/03/17 21:04 PT 20.2 SECONDS (9.7-12.2) H 03/29/17 09:23 INR 1.8 03/29/17 09:23 APTT 30 SECONDS (21-34) 03/29/17 09:23 - Constitutional Appears: Non-toxic - Respiratory Exam Respiratory Exam: absent: Respiratory Distress - Cardiovascular Exam Cardiovascular Exam: Tachycardia, REGULAR RHYTHM - GI/Abdominal Exam GI & Abdominal Exam: Soft. absent: Distended, Firm, Tenderness - Neurological Exam Neurological Exam: Alert, Awake Assessment and Plan - Assessment and Plan (Free Text) Assessment: pending transfer to [place] no immediate surgical intervention planned will d/w attending Doug, PGY3
[2017-04-04] MEDS: Dextrose 5%/0.9% NS 1,000 ML IV SCH ×5 (06:13→21:01)
[2017-04-04] MEDS: metroNIDAZOLE IV 500 mg/100 ml 500 MG/100 ML BAG IVPB SCH ×3 (06:13→21:00)
[2017-04-04 06:32] LABS: INR 1.3; PROTHROMBIN TIME 14.3 SECONDS (9.7-12.2)
[2017-04-04 06:34] LABS: BASO % 0.1 % (0.0-2.0); EOS # 0.4 K/uL (0.0-0.7); EOS % 2.3 % (0.0-4.0); HEMOGLOBIN 9.9 g/dL (11.0-16.0); LYMPH # 2.3 K/uL (1.0-4.3); LYMPH % 12.4 % (20.0-40.0); MEAN CELL VOLUME 82.5 fL (81.0-99.0); MEAN CORPUSCULAR HEMOGLOBIN 28.2 pg (27.0-31.0); MEAN CORPUSCULAR HGB CONC 34.2 g/dL (33.0-37.0); MEAN PLATELET VOLUME 7.9 fL (7.2-11.7); MONO # 2.1 K/uL (0.0-0.8); MONO % 11.4 % (0.0-10.0); NEUT # 13.7 K/uL (1.8-7.0); NEUT % 73.8 % (50.0-75.0); RBC 3.49 Mil/uL (3.80-5.20); RED CELL DISTRIBUTION WIDTH 13.3 % (11.5-14.5); WHITE BLOOD COUNT 18.6 K/uL (4.8-10.8)
[2017-04-04 06:50] LABS: BLOOD UREA NITROGEN 4 mg/dL (7-17); CALCIUM 7.6 mg/dl (8.6-10.4); GFR AFRICAN-AMERICAN > 60; GFR NON-AFRICAN AMERICAN > 60
--- NOTE | 2017-04-04 09:35 | RAD ---
HISTORY: R/O Pneumonia COMPARISON: 03/30/2017. FINDINGS: The nasogastric tube terminates in the stomach. The left PICC line terminates at the cavoatrial junction. LUNGS: The right lung is clear. There is left lower lobe airspace disease. PLEURA: There is a small left pleural effusion. No right pleural effusion. No pneumothorax. CARDIOVASCULAR: Normal. OSSEOUS STRUCTURES: No significant abnormalities. VISUALIZED UPPER ABDOMEN: Normal. OTHER FINDINGS: There is severe cashews gaseous distension of the stomach. IMPRESSION: Left lower lobe atelectasis/pneumonia and small left pleural effusion. Stable position of nasogastric tube and left PICC line.
--- NOTE | 2017-04-04 12:41 | PN ---
DATE: LOCATION: ICU 3. SUBJECTIVE: This is a 36-year-old female seen and examined in rounds without significant clinical changes, NG tube is still in place without reported active bleeding. The entire chart is reviewed, all the available lab and radiology study results, current and the previous medication list were reevaluated. The patient is still having leukocytosis of 18.6 with low hemoglobin 9.9, low hematocrit 28.8, with a PT of 14.23, low sodium 130, with low BUN and creatinine. Blood glucose level 113 with low calcium 7.9, low albumin, and low total protein. Again, the patient has abdominal, chest, and pelvic CAT scan done 2 days ago, report is seen. PHYSICAL EXAMINATION: GENERAL: A 36-year-old female with low-grade temperature. VITAL SIGNS: Heart rate of 116, blood pressure 110/62. HEENT: Showed pale, dry oral mucous membrane, nonicteric sclerae. LUNGS: Scattered crepitation. Decreased air entry at bases. HEART: Positive S1 and S2. ABDOMEN: Soft. Bowel sounds are present with mild distention. No mass or organomegaly. No rebound tenderness or guarding. EXTREMITIES: Without significant clubbing, cyanosis, or edema. NEUROLOGIC: No reported new neurological deficits, sensory, or motor. IMPRESSION: 1. Gastroparesis with retained gastric content and abnormal CAT scan of the abdomen and pelvis. 2. Anemia. 3. Peptic ulcer disease. 4. Pneumonia. 5. Malnutrition with hypoalbuminemia. SUGGESTIONS: 1. Continue current management. 2. Surgical interference is required at this point. This case discussed with the medical staff in the intensive care at length. William Michael MD
--- NOTE | 2017-04-04 15:14 | CP.CCUPN ---
CCU Subjective - Physician Review Events Since Last Encounter (Free Text): 04/04/17 15:11 Patient today is more comfortable than yesterday. NG tube output is negative. Patient making urine, Tovar catheter noted. Patient still having episodes of moaning. She is also sometimes it crying. Patient is still nothing by mouth Vital signs reviewed, tachycardia noted No neck vein distention noted Chest good air entry bilaterally, no wheezing or rales noted CVS regular heart sound, no murmur noted Abdomen soft, nontender. Extremities no pedal edema Patient is nonverbal Labs reviewed nonspecific. Elevated WBC noted Currently on TPN Patient's family is requesting for a transfer, I spoke to the [facility], I spoke to the surgical team at [facility], as there is no immediate bed available, and there is no management different than what be provided here, they did not advise for transfer to another hospital. I spoke to the family and explained to them Meanwhile we will start the feeding liquid diet Antibiotic We'll follow the patient CCU Objective - Vital Signs / Intake & Output Vital Signs (Last 4 hours): Vital Signs Temp Pulse Resp BP Pulse Ox 04/04/17 14:00 106 H 19 94/58 L 99 04/04/17 13:00 118 H 22 91/54 L 98 04/04/17 12:00 98.4 F 106 H 29 H 97/59 L 100 Intake and Output (Last 8hrs): Intake & Output 04/04/17 04/04/17 04/04/17 06:59 14:59 22:59 Intake Total 1311 1311 Output Total 695 535 Balance 616 776 Intake: Intake, IV Amount 1311 1311 Left Distal Port PICC 336 336 Left Proximal Port PICC 975 975 Output: Drainage 100 Nare 100 Urine 595 535 Urethral (Tovar) 595 535 Other: # Bowel Movements 0 0 - Physical Exam Head: Positive for: Atraumatic, Normocephalic. Negative for: Tenderness Pupils: Positive for: PERRL Extroacular Muscles: Positive for: EOMI Mouth: Positive for: Moist Mucous Membranes. Negative for: Dry, Drooling Nose (External): Positive for: Other (NGT in place) Nose (Internal): Positive for: Normal Inspection, Moist, Other (NGT in place) Neck: Positive for: Normal Range of Motion. Negative for: JVD, Lymphadenopathy Respiratory/Chest: Positive for: Clear to Auscultation. Negative for: Respiratory Distress, Accessory Muscle Use Cardiovascular: Positive for: Regular Rate and Rhythm, Normal S1, S2 Abdomen: Positive for: Tenderness, Guarding (slight guarding). Negative for: Distention Upper Extremity: Positive for: Normal Inspection, Normal ROM, Capillary Refill < 2s. Negative for: Edema Lower Extremity: Positive for: Normal Inspection. Negative for: Edema Neurological: Positive for: Other (patient does not speak). Negative for: Speech Normal Skin: Positive for: Warm, Pale Psychiatric: Positive for: Alert - Medications Active Medications: Active Medications Generic Name Dose Route Start Last Admin Trade Name Freq PRN Reason Stop Dose Admin Acetaminophen 325 mg 03/29/17 07:57 03/30/17 08:15 Tylenol 325 Mg Supp NM 325 mg Q4 PRN Administration Fever >100.4 F Haloperidol Lactate 1 mg 03/29/17 18:47 04/04/17 08:21 Haldol IVP 1 mg BID PRN Administration Agitation Metronidazole 500 mg in 100 mls @ 100 mls/hr 03/27/17 23:45 04/04/17 13:08 Flagyl IVPB 100 mls/hr Q8 [facility] Administration Piperacillin Sod/Tazobactam Sod 3.375 gm in 50 mls @ 100 mls/hr 03/28/17 02: 30 04/04/17 09:39 Zosyn 3.375 Gm Iv Premix IVPB 100 mls/hr Q8H [facility] Administration Sodium Chloride 35 meq/ 1,051.0052 mls @ 42 mls/hr 04/03/17 18:00 04/03/17 17 :50 Potassium Chloride 30 meq/ IV 42 mls/hr Magnesium Sulfate 6 meq/ .Q24H [facility] Administration Calcium Gluconate 4.5 meq/ Potassium Phosphate 15 mmole/ Insulin Human Regular 10 unit/ Chromium/Copper/Manganese/ Zinc 1 ml/ Multivitamins/ Vitamin C 10 ml/ Amino Acids Dextrose/Sodium Chloride 1,000 mls @ 125 mls/hr 04/03/17 22:00 04/04/17 11:11 Dextrose 5%/0.9% Ns 1000 Ml IV 125 mls/hr .Q8H [facility] Administration Sodium Chloride 35 meq/ 1,051.0052 mls @ 42 mls/hr 04/04/17 18:00 Potassium Chloride 30 meq/ IV Magnesium Sulfate 6 meq/ .Q24H [facility] Calcium Gluconate 4.5 meq/ Potassium Phosphate 15 mmole/ Insulin Human Regular 10 unit/ Chromium/Copper/Manganese/ Zinc 1 ml/ Multivitamins/ Vitamin C 10 ml/ Amino Acids Lorazepam 0.5 mg 04/01/17 16:08 04/04/17 10:50 Ativan IVP 0.5 mg Q3H PRN Administration Anxiety Metoclopramide HCl 10 mg 04/03/17 22:00 04/04/17 09:40 Reglan IVP 10 mg Q12 [facility] Administration Morphine Sulfate 2 mg 04/02/17 21:29 04/03/17 22:39 Morphine IVP 2 mg Q4 PRN Administration Pain, moderate (4-7) Morphine Sulfate 4 mg 04/02/17 21:45 04/04/17 12:49 Morphine IVP 4 mg Q4 PRN Administration Pain, severe (8-10) Ondansetron HCl 4 mg 03/27/17 23:45 Zofran Inj IVP Q6H PRN Nausea/Vomiting Pantoprazole Sodium 40 mg 04/02/17 10:00 04/04/17 09:40 Protonix Inj IVP 40 mg DAILY [facility] Administration - Patient Studies Lab Studies: Lab Studies 04/04/17 04/04/17 04/04/17 Range/Units 11:56 06:26 06:22 WBC (4.8-10.8) K/uL RBC (3.80-5.20) Mil/uL Hgb (11.0-16.0) g/dL Hct (34.0-47.0) % MCV (81.0-99.0) fL MCH (27.0-31.0) pg MCHC (33.0-37.0) g/dL RDW (11.5-14.5) % Plt Count (130-400) K/uL MPV (7.2-11.7) fL Neut % (Auto) (50.0-75.0) % Lymph % (Auto) (20.0-40.0) % Jones % (Auto) (0.0-10.0) % Eos % (Auto) (0.0-4.0) % Baso % (Auto) (0.0-2.0) % Neut # (1.8-7.0) K/uL Lymph # (1.0-4.3) K/uL Jones # (0.0-0.8) K/uL Eos # (0.0-0.7) K/uL Baso # (0.0-0.2) K/uL PT 14.3 H (9.7-12.2) SECONDS INR 1.3 Sodium 130 L (132-148) mmol/L Potassium 3.8 (3.6-5.2) mmol/L Chloride 97 L (98-107) mmol/L Carbon Dioxide 28 (22-30) mmol/L Anion Gap 9 L (10-20) BUN 4 L (7-17) mg/dL Creatinine 0.5 L (0.7-1.2) mg/dL Est GFR ( Amer) > 60 Est GFR (Non-Af Amer) > 60 POC Glucose (mg/dL) 111 H (65-110) mg/dL Random Glucose 95 (65-105) mg/dL Calcium 7.6 L (8.6-10.4) mg/dl Phosphorus 3.7 (2.5-4.5) mg/dL Magnesium (1.6-2.3) mg/dL Total Bilirubin (0.2-1.3) mg/dL AST (14-36) U/L ALT (9-52) U/L Alkaline Phosphatase (38-126) U/L Total Protein (6.3-8.3) g/dL Albumin (3.5-5.0) g/dL Globulin (2.2-3.9) gm/dL Albumin/Globulin Ratio (1.0-2.1) 04/04/17 04/04/17 04/03/17 Range/Units 06:22 05:49 23:56 WBC 18.6 H (4.8-10.8) K/uL RBC 3.49 L (3.80-5.20) Mil/uL Hgb 9.9 L (11.0-16.0) g/dL Hct 28.8 L (34.0-47.0) % MCV 82.5 (81.0-99.0) fL MCH 28.2 (27.0-31.0) pg MCHC 34.2 (33.0-37.0) g/dL RDW 13.3 (11.5-14.5) % Plt Count 448 H (130-400) K/uL MPV 7.9 (7.2-11.7) fL Neut % (Auto) 73.8 (50.0-75.0) % Lymph % (Auto) 12.4 L (20.0-40.0) % Jones % (Auto) 11.4 H (0.0-10.0) % Eos % (Auto) 2.3 (0.0-4.0) % Baso % (Auto) 0.1 (0.0-2.0) % Neut # 13.7 H (1.8-7.0) K/uL Lymph # 2.3 (1.0-4.3) K/uL Jones # 2.1 H (0.0-0.8) K/uL Eos # 0.4 (0.0-0.7) K/uL Baso # 0.0 (0.0-0.2) K/uL PT (9.7-12.2) SECONDS INR Sodium (132-148) mmol/L Potassium (3.6-5.2) mmol/L Chloride (98-107) mmol/L Carbon Dioxide (22-30) mmol/L Anion Gap (10-20) BUN (7-17) mg/dL Creatinine (0.7-1.2) mg/dL Est GFR ( Amer) Est GFR (Non-Af Amer) POC Glucose (mg/dL) 113 H 142 H (65-110) mg/dL Random Glucose (65-105) mg/dL Calcium (8.6-10.4) mg/dl Phosphorus (2.5-4.5) mg/dL Magnesium (1.6-2.3) mg/dL Total Bilirubin (0.2-1.3) mg/dL AST (14-36) U/L ALT (9-52) U/L Alkaline Phosphatase (38-126) U/L Total Protein (6.3-8.3) g/dL Albumin (3.5-5.0) g/dL Globulin (2.2-3.9) gm/dL Albumin/Globulin Ratio (1.0-2.1) 04/03/17 04/03/1717 Range/Units 21:04 21:04 17:37 WBC 18.4 H (4.8-10.8) K/uL RBC 3.39 L (3.80-5.20) Mil/uL Hgb 9.2 L (11.0-16.0) g/dL Hct 28.4 L (34.0-47.0) % MCV 83.9 (81.0-99.0) fL MCH 27.1 (27.0-31.0) pg MCHC 32.2 L (33.0-37.0) g/dL RDW 13.3 (11.5-14.5) % Plt Count 373 (130-400) K/uL MPV 8.1 (7.2-11.7) fL Neut % (Auto) 79.3 H (50.0-75.0) % Lymph % (Auto) 10.2 L (20.0-40.0) % Jones % (Auto) 8.4 (0.0-10.0) % Eos % (Auto) 1.7 (0.0-4.0) % Baso % (Auto) 0.4 (0.0-2.0) % Neut # 14.6 H (1.8-7.0) K/uL Lymph # 1.9 (1.0-4.3) K/uL Jones # 1.5 H (0.0-0.8) K/uL Eos # 0.3 (0.0-0.7) K/uL Baso # 0.1 (0.0-0.2) K/uL PT (9.7-12.2) SECONDS INR Sodium 123 L (132-148) mmol/L Potassium 5.8 H (3.6-5.2) mmol/L Chloride 95 L (98-107) mmol/L Carbon Dioxide 26 (22-30) mmol/L Anion Gap 8 L (10-20) BUN 3 L (7-17) mg/dL Creatinine 0.6 L (0.7-1.2) mg/dL Est GFR ( Amer) > 60 Est GFR (Non-Af Amer) > 60 POC Glucose (mg/dL) 123 H (65-110) mg/dL Random Glucose 256 H (65-105) mg/dL Calcium 7.5 L (8.6-10.4) mg/dl Phosphorus 4.8 H (2.5-4.5) mg/dL Magnesium 1.9 (1.6-2.3) mg/dL Total Bilirubin 0.7 (0.2-1.3) mg/dL AST 15 (14-36) U/L ALT 22 (9-52) U/L Alkaline Phosphatase 63 (38-126) U/L Total Protein 5.9 L (6.3-8.3) g/dL Albumin 2.8 L (3.5-5.0) g/dL Globulin 3.1 (2.2-3.9) gm/dL Albumin/Globulin Ratio 0.9 L (1.0-2.1) Laboratory Results - last 24 hr 04/03/17 04/03/17 04/03/17 17:37 21:04 21:04 WBC 18.4 H RBC 3.39 L Hgb 9.2 L Hct 28.4 L MCV 83.9 MCH 27.1 MCHC 32.2 L RDW 13.3 Plt Count 373 MPV 8.1 Neut % (Auto) 79.3 H Lymph % (Auto) 10.2 L Jones % (Auto) 8.4 Eos % (Auto) 1.7 Baso % (Auto) 0.4 Neut # 14.6 H Lymph # 1.9 Jones # 1.5 H Eos # 0.3 Baso # 0.1 PT INR Sodium 123 L Potassium 5.8 H Chloride 95 L Carbon Dioxide 26 Anion Gap 8 L BUN 3 L Creatinine 0.6 L Est GFR ( Amer) > 60 Est GFR (Non-Af Amer) > 60 POC Glucose (mg/dL) 123 H Random Glucose 256 H Calcium 7.5 L Phosphorus 4.8 H Magnesium 1.9 Total Bilirubin 0.7 AST 15 ALT 22 Alkaline Phosphatase 63 Total Protein 5.9 L Albumin 2.8 L Globulin 3.1 Albumin/Globulin Ratio 0.9 L 04/03/17 04/04/17 04/04/17 23:56 05:49 06:22 WBC 18.6 H RBC 3.49 L Hgb 9.9 L Hct 28.8 L MCV 82.5 MCH 28.2 MCHC 34.2 RDW 13.3 Plt Count 448 H MPV 7.9 Neut % (Auto) 73.8 Lymph % (Auto) 12.4 L Jones % (Auto) 11.4 H Eos % (Auto) 2.3 Baso % (Auto) 0.1 Neut # 13.7 H Lymph # 2.3 Jones # 2.1 H Eos # 0.4 Baso # 0.0 PT INR Sodium Potassium Chloride Carbon Dioxide Anion Gap BUN Creatinine Est GFR ( Amer) Est GFR (Non-Af Amer) POC Glucose (mg/dL) 142 H 113 H Random Glucose Calcium Phosphorus Magnesium Total Bilirubin AST ALT Alkaline Phosphatase Total Protein Albumin Globulin Albumin/Globulin Ratio 04/04/17 04/04/17 04/04/17 06:22 06:26 11:56 WBC RBC Hgb Hct MCV MCH MCHC RDW Plt Count MPV Neut % (Auto) Lymph % (Auto) Jones % (Auto) Eos % (Auto) Baso % (Auto) Neut # Lymph # Jones # Eos # Baso # PT 14.3 H INR 1.3 Sodium 130 L Potassium 3.8 Chloride 97 L Carbon Dioxide 28 Anion Gap 9 L BUN 4 L Creatinine 0.5 L Est GFR ( Amer) > 60 Est GFR (Non-Af Amer) > 60 POC Glucose (mg/dL) 111 H Random Glucose 95 Calcium 7.6 L Phosphorus 3.7 Magnesium Total Bilirubin AST ALT Alkaline Phosphatase Total Protein Albumin Globulin Albumin/Globulin Ratio Fingerstick Blood Sugar Results: 111 Critical Care Progress Note - Nutrition Nutrition: Nutrition Category Date Time Status Liquid Diet [DIET] Diets 04/04/17 Breakfast Active
[2017-04-04] MEDS ORDERED: PPN #3 IV SCH (18:00)
[2017-04-04] MEDS: PPN # 2 IV SCH (18:29)
--- NOTE | 2017-04-04 20:46 | CP.PCM.PN ---
Subjective - Date & Time of Evaluation Date of Evaluation: 04/04/17 Time of Evaluation: 09:00 - Subjective Subjective: PGY1 Progress Note for Dr. Reyes Patient seen and examined at bedside this morning. Patient was crying upon examination but was easily comforted by her sister at bedside. Patient is still NPO. Due to baseline mental retardation, ROS unattainable. Objective - Vital Signs/Intake and Output Vital Signs (last 24 hours): Temp Pulse Resp BP Pulse Ox 99.1 F 106 H 16 99/56 L 100 04/04/17 19:54 04/04/17 19:00 04/04/17 19:00 04/04/17 19:00 04/04/17 19:00 Intake and Output: 04/04/17 04/05/17 18:59 06:59 Intake Total 2339 334 Output Total 905 Balance 1434 334 - Medications Medications: Current Medications Acetaminophen (Tylenol 325 Mg Supp) 325 mg [place] Q4 PRN PRN Reason: Fever >100.4 F Last Admin: 03/30/17 08:15 Dose: 325 mg Haloperidol Lactate (Haldol) 1 mg IVP BID PRN PRN Reason: Agitation Last Admin: 04/04/17 08:21 Dose: 1 mg Metronidazole (Flagyl) 500 mg in 100 mls @ 100 mls/hr IVPB Q8 [facility] Last Admin: 04/04/17 13:08 Dose: 100 mls/hr Piperacillin Sod/Tazobactam Sod (Zosyn 3.375 Gm Iv Premix) 3.375 gm in 50 mls @ 100 mls/hr IVPB Q8H [facility] Last Admin: 04/04/17 17:40 Dose: 100 mls/hr Sodium Chloride 35 meq/Potassium Chloride 30 meq/Magnesium Sulfate 6 meq/ Calcium Gluconate 4.5 meq/Potassium Phosphate 15 mmole/Insulin Human Regular 10 unit/Chromium/Copper/Manganese/Zinc 1 ml/ Multivitamins/Vitamin C 10 ml/ Amino Acids 1,051.0052 mls @ 42 mls/hr IV .Q24H [facility] Last Admin: 04/04/17 18:29 Dose: Not Given Dextrose/Sodium Chloride (Dextrose 5%/0.9% Ns 1000 Ml) 1,000 mls @ 125 mls/hr IV .Q8H [facility] Last Admin: 12/25/17 20:23 Dose: 125 mls/hr Sodium Chloride 35 meq/Potassium Chloride 30 meq/Magnesium Sulfate 6 meq/ Calcium Gluconate 4.5 meq/Potassium Phosphate 15 mmole/Insulin Human Regular 10 unit/Chromium/Copper/Manganese/Zinc 1 ml/ Multivitamins/Vitamin C 10 ml/ Amino Acids 1,051.0052 mls @ 42 mls/hr IV .Q24H [facility] Last Admin: 04/04/17 17:41 Dose: 42 mls/hr Lorazepam (Ativan) 0.5 mg IVP Q3H PRN PRN Reason: Anxiety Last Admin: 04/04/17 20:24 Dose: 0.5 mg Metoclopramide HCl (Reglan) 10 mg IVP Q12 [facility] Last Admin: 04/04/17 09:40 Dose: 10 mg Morphine Sulfate (Morphine) 2 mg IVP Q4 PRN PRN Reason: Pain, moderate (4-7) Last Admin: 04/03/17 22:39 Dose: 2 mg Morphine Sulfate (Morphine) 4 mg IVP Q4 PRN PRN Reason: Pain, severe (8-10) Last Admin: 04/04/17 17:32 Dose: 4 mg Ondansetron HCl (Zofran Inj) 4 mg IVP Q6H PRN PRN Reason: Nausea/Vomiting Pantoprazole Sodium (Protonix Inj) 40 mg IVP DAILY [facility] Last Admin: 04/04/17 09:40 Dose: 40 mg - Labs Labs: 04/04/17 06:22 04/04/17 06:26 PT 14.3 SECONDS (9.7-12.2) H 04/04/17 06:22 INR 1.3 04/04/17 06:22 APTT 30 SECONDS (21-34) 03/29/17 09:23 - Constitutional Appears: Non-toxic, Other (crying, but easily consolable ) - Head Exam Head Exam: ATRAUMATIC, NORMOCEPHALIC - Eye Exam Eye Exam: EOMI - ENT Exam ENT Exam: Mucous Membranes Moist - Respiratory Exam Respiratory Exam: NORMAL BREATHING PATTERN. absent: Accessory Muscle Use, Respiratory Distress - Cardiovascular Exam Cardiovascular Exam: REGULAR RHYTHM - GI/Abdominal Exam GI & Abdominal Exam: Guarding, Soft, Tenderness. absent: Distended, Firm, Rigid - Extremities Exam Extremities Exam: absent: Calf Tenderness, Pedal Edema - Neurological Exam Neurological Exam: Alert (baseline mental retardation), Awake - Psychiatric Exam Psychiatric exam: Agitated (crying) - Skin Skin Exam: Dry, Warm Assessment and Plan - Assessment and Plan (Free Text) Plan: Neuro: hx of Schizophrenia, patient has mental retardation and can speak some words based on observation Pain: Morphine 2 mg IV q4h PRN; Morphine 4 mg IV q4h PRN Sedation: 1mg Haldol IVP Q12H PRN 0.5mg Ativan Q6H PRN Nausea: Zofran 4mg IVP q6h PRN Reglan 10 mg IVP q4h PRN Psych: Psych Consult Dr. Mccloud: f/u 03/30 EKG to evaluate QTc Quetiapine (Seroquel) 200mg POBID, held d/t NGT on IWS Escitalopram (Lexapro) 10mg PO QD, held d/t NGT on IWS Cardio: 03/27 EKG Sinus tachycardia 138 bpm 03/30 EKG QTc 434, Sinus tachycardia at 153 bpm Pulm: Aspiration pneumonia s/p EGD with intubation then extubation 03/27 AB.22 03/27 CXR in infiltrates, no active pulmonary disease 03/30 CXR: poor inspiratory effort, areas suggestive of aspiration pneumonia 04/02: CT abdomen/pelvis/chest: pleural effusions, bilateral perihilar consolidations possibly due to multifocal pneumonia vs. atelectasis 04/04: CXR: Left lower lobe atelectasis/pneumonia and small left pleural effusion. Stable position of nasogastric tube and left PICC line. Endo: 03/28 Hemoglobin A1c 5.3 GI: Currently on PPN 03/28 Lipase 8456 03/29 Lipase 322 03/30 Lipase 64 03/28 00:18 CT abdomen/pelvis with IV contrast: gastric distention 32cm and distention of the first and third and second portion of duodenum. Transition and complete decompression of third portion of duodenum. pancreas unremarkable, spleen unremarkable, partially contracted gallbladder. duodenal obstruction v delayed emptying v gastroparesis. Fluid distention of distal esophagus 3.3cm representing gastric emptying v gastroesophageal reflux. f/u 03/[address] abdomen/pelvis with IV contrast: significantly dilated stomach with retained food and fluid. significantly diminished prior to earlier CT 03/28. No free intraperitoneal gas identified. contrast noted in Gallbladder. 03/28 FOBT positive 03/[address] connected to suction. 03/28 NGT OP since insertion: 2600cc 03/29 2350 03/30 NGT 1160 03/31 NGT 630 04/01 NGT 800 f/u Strict I/Os General Surgery Consult: Dr. Woodruff 03/[address] Harmon to have EGD today. 03/[address] Harmon, place patient on Reglan to help with motility. 03/30 Abdominal xray/obstructive series: minimal distention of stomach compared to previous imaging studies 03/31 Pathology for Antrum biopsy from 03/29 EGD current biopsy negative for H pylori 04/01 f/u Dr. Harmon for repeat EGD. 04/02 CT chest shows gastric distension measuring 27 cm with possible gastric pneumatosis. NG tube in fundus of stomach. Peripancreatic infiltration. Moderate intraperitoneal pelvic fluid with prominent surrounding peritoneal lining. Upper abdominal loculated ascites with peritoneal enhancement above spleen. Lipase 320. Renal: 03/27 UA: proteinuria urine output since insertion 360 average hourly output 60cc/hr f/u Strict I/Os 03/31 Potassium Phosphorus 15mmole @63cc/hr : 03/27 UA: hazy, specific gravity >1.060, 3+ urine protein, Urine bacteria, Urine Yeast Ceftriaxone 1gm IVPB QD 03/30 Urine Cx negative Heme: GI bleed H/H: 03/27 14.6/44.7 03/28 12.9/38.5 03/29 11.2/33.0 03/30 9.5/27.7 03/31 9.4/27.5 04/01 8.9/25.8 03/28 FOBT positive 03/30 GOBT positive 04/02 9.1/26.7 04/04 9.9/28.8 MSK: Patient can walk per sister, but is dizzy so hasn't walked PT/OT eval and treat when stable ID: Sepsis Code sepsis 03/28 02:20 03/28 lactate 9.7 03/28 lactate 01:05 9.2 03/28 lactate 06:15 1.3 03/27 WBC 26.7 03/28 WBC 30.2 03/29 WBC 21.3 03/30 WBC 16.1 03/31 WBC 15.7 03/30 blood Culture x 2, negative 03/30 MRSA screen negative 03/30 Urine Cx negative 04/02 WBC 16.8. Blood culturex2 negative 04/04 WBC 18.6 03/29 Neutrophils 75, Bands 9 03/30 Neutrophils 83, Bands 1 04/02 Neutrophils 83 04/04 Neutrophils 73.8 Flagyl 500mg IVPB Q8H Zosyn 3.375gm in 50cc IVPB Q8H Prophylaxis: GI: Protonix Drip Zofran 4mg IVP Q6H PRN Nausea Tylenol 325mg OK Q4H PRN Fluids: D5W/NS @ 125cc/hr Potassium 3.8 Pt will remain in ICU Case Discussed with Dr. Amy Odom Maynor [id number]
[2017-04-05] MEDS: Morphine 4 MG/ML VIAL IVP PRN ×4 (00:33→19:02)
[2017-04-05] MEDS: Piperacill/Tazo 3.375gm in Dex 3.375 GM/50 ML BAG IVPB SCH ×3 (02:58→17:44)
[2017-04-05 04:40] LABS: BASO # 0.1 K/uL (0.0-0.2); BASO % 0.4 % (0.0-2.0); EOS # 0.3 K/uL (0.0-0.7); EOS % 1.5 % (0.0-4.0); HEMOGLOBIN 9.4 g/dL (11.0-16.0); LYMPH # 2.6 K/uL (1.0-4.3); LYMPH % 12.9 % (20.0-40.0); MEAN CELL VOLUME 82.3 fL (81.0-99.0); MEAN CORPUSCULAR HEMOGLOBIN 27.4 pg (27.0-31.0); MEAN CORPUSCULAR HGB CONC 33.3 g/dL (33.0-37.0); MEAN PLATELET VOLUME 7.8 fL (7.2-11.7); MONO # 2.2 K/uL (0.0-0.8); MONO % 10.8 % (0.0-10.0); NEUT % 74.4 % (50.0-75.0); RBC 3.45 Mil/uL (3.80-5.20); RED CELL DISTRIBUTION WIDTH 13.6 % (11.5-14.5); WHITE BLOOD COUNT 20.1 K/uL (4.8-10.8)
[2017-04-05 04:53] LABS: BLOOD UREA NITROGEN 4 mg/dL (7-17); CALCIUM 7.9 mg/dl (8.6-10.4); GFR AFRICAN-AMERICAN > 60; GFR NON-AFRICAN AMERICAN > 60
[2017-04-05] MEDS: metroNIDAZOLE IV 500 mg/100 ml 500 MG/100 ML BAG IVPB SCH ×3 (05:00→21:01)
[2017-04-05] MEDS: Dextrose 5%/0.9% NS 1,000 ML IV SCH ×3 (05:01→22:45)
--- NOTE | 2017-04-05 07:21 | CP.CCUPN ---
<Pari Smith - Last Filed: 04/05/17 12:29> CCU Subjective - Physician Review Subjective (Free Text): Critical Care Progress note for Dr. Hernandez Patient seen and examined at bedside. No acute events overnight. Patient ate food yesterday and today and tolerated diet. Patient continues to yell when needing to have a bowel movement. Critical Care Time Spent (in minutes): 25 CCU Objective - Vital Signs / Intake & Output Vital Signs (Last 4 hours): Vital Signs Temp Pulse Resp BP Pulse Ox 04/05/17 06:26 123 H 31 H 107/69 04/05/17 05:48 103 H 18 83/40 L 97 04/05/17 05:00 122 H 25 H 96 04/05/17 04:49 126 H 34 H 100/75 96 04/05/17 04:00 98.9 F 124 H 27 H 04/05/17 03:48 110 H 17 92/61 L Intake and Output (Last 8hrs): Intake & Output 04/04/17 04/05/17 04/05/17 22:59 06:59 14:59 Intake Total 1671 1336 Output Total 370 Balance 1301 1336 Weight 145 lb Intake: Intake, IV Amount 1311 1336 Left Distal Port PICC 336 336 Left Proximal Port PICC 975 1000 Oral 360 Output: Urine 370 Urethral (Tovar) 370 - Physical Exam Head: Positive for: Atraumatic, Normocephalic. Negative for: Tenderness Pupils: Positive for: PERRL Extroacular Muscles: Positive for: EOMI Mouth: Positive for: Moist Mucous Membranes. Negative for: Dry, Drooling Nose (Internal): Positive for: Normal Inspection, Moist Neck: Positive for: Normal Range of Motion. Negative for: JVD, Lymphadenopathy Respiratory/Chest: Positive for: Clear to Auscultation. Negative for: Respiratory Distress, Accessory Muscle Use Cardiovascular: Positive for: Regular Rate and Rhythm, Normal S1, S2 Abdomen: Positive for: Normal Bowel Sounds. Negative for: Distention, Guarding Upper Extremity: Positive for: Normal Inspection, Normal ROM, Capillary Refill < 2s. Negative for: Edema Lower Extremity: Positive for: Normal Inspection. Negative for: Edema Neurological: Positive for: CN II-XII Intact Skin: Positive for: Warm, Pale Psychiatric: Positive for: Alert - Medications Active Medications: Active Medications Generic Name Dose Route Start Last Admin Trade Name Freq PRN Reason Stop Dose Admin Acetaminophen 325 mg 03/29/17 07:57 03/30/17 08:15 Tylenol 325 Mg Supp [place] 325 mg Q4 PRN Administration Fever >100.4 F Haloperidol Lactate 1 mg 03/29/17 18:47 04/04/17 21:01 Haldol IVP 1 mg BID PRN Administration Agitation Metronidazole 500 mg in 100 mls @ 100 mls/hr 03/27/17 23:45 04/05/17 05:00 Flagyl IVPB 100 mls/hr Q8 AGUSTIN Administration Piperacillin Sod/Tazobactam Sod 3.375 gm in 50 mls @ 100 mls/hr 03/28/17 02: 30 04/05/17 02:58 Zosyn 3.375 Gm Iv Premix IVPB 100 mls/hr Q8H AGUSTIN Administration Sodium Chloride 35 meq/ 1,051.0052 mls @ 42 mls/hr 04/03/17 18:00 04/04/17 18 :29 Potassium Chloride 30 meq/ IV Not Given Magnesium Sulfate 6 meq/ .Q24H AGUSTIN Calcium Gluconate 4.5 meq/ Potassium Phosphate 15 mmole/ Insulin Human Regular 10 unit/ Chromium/Copper/Manganese/ Zinc 1 ml/ Multivitamins/ Vitamin C 10 ml/ Amino Acids Dextrose/Sodium Chloride 1,000 mls @ 125 mls/hr 04/03/17 22:00 04/05/17 05:01 Dextrose 5%/0.9% Ns 1000 Ml IV 125 mls/hr .Q8H AGUSTIN Administration Sodium Chloride 35 meq/ 1,051.0052 mls @ 42 mls/hr 04/04/17 18:00 04/04/17 17 :41 Potassium Chloride 30 meq/ IV 42 mls/hr Magnesium Sulfate 6 meq/ .Q24H AGUSTIN Administration Calcium Gluconate 4.5 meq/ Potassium Phosphate 15 mmole/ Insulin Human Regular 10 unit/ Chromium/Copper/Manganese/ Zinc 1 ml/ Multivitamins/ Vitamin C 10 ml/ Amino Acids Lorazepam 0.5 mg 04/01/17 16:08 04/04/17 20:24 Ativan IVP 0.5 mg Q3H PRN Administration Anxiety Metoclopramide HCl 10 mg 04/03/17 22:00 04/04/17 21:00 Reglan IVP 10 mg Q12 AGUSTIN Administration Morphine Sulfate 2 mg 04/02/17 21:29 04/03/17 22:39 Morphine IVP 2 mg Q4 PRN Administration Pain, moderate (4-7) Morphine Sulfate 4 mg 04/02/17 21:45 04/05/17 00:33 Morphine IVP 4 mg Q4 PRN Administration Pain, severe (8-10) Ondansetron HCl 4 mg 03/27/17 23:45 Zofran Inj IVP Q6H PRN Nausea/Vomiting Pantoprazole Sodium 40 mg 04/02/17 10:00 04/04/17 09:40 Protonix Inj IVP 40 mg DAILY AGUSTIN Administration - Patient Studies Lab Studies: Lab Studies 04/05/17 04/05/17 04/05/17 Range/Units 04:41 04:31 04:31 WBC 20.1 H (4.8-10.8) K/uL RBC 3.45 L (3.80-5.20) Mil/uL Hgb 9.4 L (11.0-16.0) g/dL Hct 28.4 L (34.0-47.0) % MCV 82.3 (81.0-99.0) fL MCH 27.4 (27.0-31.0) pg MCHC 33.3 (33.0-37.0) g/dL RDW 13.6 (11.5-14.5) % Plt Count 480 H (130-400) K/uL MPV 7.8 (7.2-11.7) fL Neut % (Auto) 74.4 (50.0-75.0) % Lymph % (Auto) 12.9 L (20.0-40.0) % [place] % (Auto) 10.8 H (0.0-10.0) % Eos % (Auto) 1.5 (0.0-4.0) % Baso % (Auto) 0.4 (0.0-2.0) % Neut # 15.0 H (1.8-7.0) K/uL Lymph # 2.6 (1.0-4.3) K/uL [place] # 2.2 H (0.0-0.8) K/uL Eos # 0.3 (0.0-0.7) K/uL Baso # 0.1 (0.0-0.2) K/uL Sodium 131 L (132-148) mmol/L Potassium 3.9 (3.6-5.2) mmol/L Chloride 98 (98-107) mmol/L Carbon Dioxide 27 (22-30) mmol/L Anion Gap 11 (10-20) BUN 4 L (7-17) mg/dL Creatinine 0.5 L (0.7-1.2) mg/dL Est GFR ( Amer) > 60 Est GFR (Non-Af Amer) > 60 POC Glucose (mg/dL) 85 (65-110) mg/dL Random Glucose 94 (65-105) mg/dL Calcium 7.9 L (8.6-10.4) mg/dl Phosphorus 4.3 (2.5-4.5) mg/dL 04/05/17 04/04/17 04/04/17 Range/Units 00:26 17:28 11:56 WBC (4.8-10.8) K/uL RBC (3.80-5.20) Mil/uL Hgb (11.0-16.0) g/dL Hct (34.0-47.0) % MCV (81.0-99.0) fL MCH (27.0-31.0) pg MCHC (33.0-37.0) g/dL RDW (11.5-14.5) % Plt Count (130-400) K/uL MPV (7.2-11.7) fL Neut % (Auto) (50.0-75.0) % Lymph % (Auto) (20.0-40.0) % [place] % (Auto) (0.0-10.0) % Eos % (Auto) (0.0-4.0) % Baso % (Auto) (0.0-2.0) % Neut # (1.8-7.0) K/uL Lymph # (1.0-4.3) K/uL [place] # (0.0-0.8) K/uL Eos # (0.0-0.7) K/uL Baso # (0.0-0.2) K/uL Sodium (132-148) mmol/L Potassium (3.6-5.2) mmol/L Chloride (98-107) mmol/L Carbon Dioxide (22-30) mmol/L Anion Gap (10-20) BUN (7-17) mg/dL Creatinine (0.7-1.2) mg/dL Est GFR ( Amer) Est GFR (Non-Af Amer) POC Glucose (mg/dL) 103 112 H 111 H (65-110) mg/dL Random Glucose (65-105) mg/dL Calcium (8.6-10.4) mg/dl Phosphorus (2.5-4.5) mg/dL 04/04/17 Range/Units 05:49 WBC (4.8-10.8) K/uL RBC (3.80-5.20) Mil/uL Hgb (11.0-16.0) g/dL Hct (34.0-47.0) % MCV (81.0-99.0) fL MCH (27.0-31.0) pg MCHC (33.0-37.0) g/dL RDW (11.5-14.5) % Plt Count (130-400) K/uL MPV (7.2-11.7) fL Neut % (Auto) (50.0-75.0) % Lymph % (Auto) (20.0-40.0) % [place] % (Auto) (0.0-10.0) % Eos % (Auto) (0.0-4.0) % Baso % (Auto) (0.0-2.0) % Neut # (1.8-7.0) K/uL Lymph # (1.0-4.3) K/uL [place] # (0.0-0.8) K/uL Eos # (0.0-0.7) K/uL Baso # (0.0-0.2) K/uL Sodium (132-148) mmol/L Potassium (3.6-5.2) mmol/L Chloride (98-107) mmol/L Carbon Dioxide (22-30) mmol/L Anion Gap (10-20) BUN (7-17) mg/dL Creatinine (0.7-1.2) mg/dL Est GFR ( Amer) Est GFR (Non-Af Amer) POC Glucose (mg/dL) 113 H (65-110) mg/dL Random Glucose (65-105) mg/dL Calcium (8.6-10.4) mg/dl Phosphorus (2.5-4.5) mg/dL Laboratory Results - last 24 hr 04/04/17 04/04/17 04/04/17 05:49 11:56 17:28 WBC RBC Hgb Hct MCV MCH MCHC RDW Plt Count MPV Neut % (Auto) Lymph % (Auto) [place] % (Auto) Eos % (Auto) Baso % (Auto) Neut # Lymph # [place] # Eos # Baso # Sodium Potassium Chloride Carbon Dioxide Anion Gap BUN Creatinine Est GFR ( Amer) Est GFR (Non-Af Amer) POC Glucose (mg/dL) 113 H 111 H 112 H Random Glucose Calcium Phosphorus 04/05/17 04/05/17 04/05/17 00:26 04:31 04:31 WBC 20.1 H RBC 3.45 L Hgb 9.4 L Hct 28.4 L MCV 82.3 MCH 27.4 MCHC 33.3 RDW 13.6 Plt Count 480 H MPV 7.8 Neut % (Auto) 74.4 Lymph % (Auto) 12.9 L [place] % (Auto) 10.8 H Eos % (Auto) 1.5 Baso % (Auto) 0.4 Neut # 15.0 H Lymph # 2.6 [place] # 2.2 H Eos # 0.3 Baso # 0.1 Sodium 131 L Potassium 3.9 Chloride 98 Carbon Dioxide 27 Anion Gap 11 BUN 4 L Creatinine 0.5 L Est GFR ( Amer) > 60 Est GFR (Non-Af Amer) > 60 POC Glucose (mg/dL) 103 Random Glucose 94 Calcium 7.9 L Phosphorus 4.3 04/05/17 04:41 WBC RBC Hgb Hct MCV MCH MCHC RDW Plt Count MPV Neut % (Auto) Lymph % (Auto) [place] % (Auto) Eos % (Auto) Baso % (Auto) Neut # Lymph # [place] # Eos # Baso # Sodium Potassium Chloride Carbon Dioxide Anion Gap BUN Creatinine Est GFR ( Amer) Est GFR (Non-Af Amer) POC Glucose (mg/dL) 85 Random Glucose Calcium Phosphorus Fingerstick Blood Sugar Results: 85 Critical Care Progress Note - Nutrition Nutrition: Nutrition Category Date Time Status Liquid Diet [DIET] Diets 04/04/17 Breakfast Active Assessment/Plan - Assessment and Plan (Free Text) Assessment: Neuro: hx of Schizophrenia, patient has mental retardation and can speak some words based on observation Pain: Morphine 2 mg IV q4h PRN; Morphine 4 mg IV q4h PRN Sedation: 1mg Haldol IVP Q12H PRN 0.5mg Ativan Q6H PRN Nausea: Zofran 4mg IVP q6h PRN Reglan 10 mg IVP q4h PRN Psych: Psych Consult Dr. Mccloud: f/u 03/30 EKG to evaluate QTc Quetiapine (Seroquel) 200mg POBID, held d/t NGT on IWS, held awaiting Dr. Mccloud Recommendations Escitalopram (Lexapro) 10mg PO QD, held d/t NGT on IWS, held awaiting Dr. Mccloud Recommendations Cardio: 03/27 EKG Sinus tachycardia 138 bpm 03/30 EKG QTc 434, Sinus tachycardia at 153 bpm Pulm: Aspiration pneumonia s/p EGD with intubation then extubation 03/27 AB.22 03/27 CXR in infiltrates, no active pulmonary disease 03/30 CXR: poor inspiratory effort, areas suggestive of aspiration pneumonia 04/02: CT abdomen/pelvis/chest: pleural effusions, bilateral perihilar consolidations possibly due to multifocal pneumonia vs. atelectasis 04/04: CXR: Left lower lobe atelectasis/pneumonia and small left pleural effusion. Stable position of nasogastric tube and left PICC line. Endo: 03/28 Hemoglobin A1c 5.3 GI: Currently on PPN 03/28 Lipase 8456 03/29 Lipase 322 03/30 Lipase 64 03/27 21:42 CT abdomen/pelvis with IV contrast: gastric distention 32cm and distention of the first and third and second portion of duodenum. Transition and complete decompression of third portion of duodenum. pancreas unremarkable, spleen unremarkable, partially contracted gallbladder. duodenal obstruction v delayed emptying v gastroparesis. Fluid distention of distal esophagus 3.3cm representing gastric emptying v gastroesophageal reflux. 03/27 CT abdomen/pelvis with IV contrast: significantly dilated stomach with retained food and fluid. significantly diminished prior to earlier CT 03/28. No free intraperitoneal gas identified. contrast noted in Gallbladder. 03/28 CT Chest/Abdomen/Pelvis: Left greater than right pleural effusion, bilateral perihilar consolidation. right more than left upper lobes and left more than right lower lobes. lingular consolidation representing multifocal pneumonia v. atelectasis versus mucous lugging and/or aspiration. interval worsening compared to prior exam 04/02 CT chest/abdomen/pelvis shows gastric distention 27cm, possible gastric pneumatosis, NGT at fundus with contrast fluid and gas level peripancreatic infiltration. gastric distension measuring 27 cm with possible gastric pneumatosis. intraperitoneal pelvic fluid with prominent surrounding peritoneal lining. Loculated ascites with peritoneal enhancement above spleen in retrogastric region. Lipase 320. 03/[address] connected to suction. 03/28 NGT OP since insertion: 2600cc 03/29 2350 03/30 NGT 1160 03/31 NGT 630 04/01 NGT 800 04/02 NGT 100 04/04 550, NGT removed by patient, Flexiseal removed by patient f/u Strict I/Os General Surgery Consult: Dr. Woodruff 03/[address] Harmon to have EGD today. 03/[address] Harmon, place patient on Reglan to help with motility. 03/30 Abdominal xray/obstructive series: minimal distention of stomach compared to previous imaging studies 03/31 Pathology for Antrum biopsy from 03/29 EGD current biopsy negative for H pylori 04/01 f/u Dr. Harmon for repeat EGD. Renal: 03/27 UA: proteinuria urine output since insertion 360 average hourly output 60cc/hr f/u Strict I/Os 03/31 Potassium Phosphorus 15mmole @63cc/hr : 03/27 UA: hazy, specific gravity >1.060, 3+ urine protein, Urine bacteria, Urine Yeast Ceftriaxone 1gm IVPB QD 03/30 Urine Cx negative Heme: GI bleed H/H: 03/27 14.6/44.7 03/28 12.9/38.5 03/29 11.2/33.0 03/30 9.5/27.7 03/31 9.4/27.5 04/01 8.9/25.8 04/02 9.1/26.7 04/04 9.9/28.8 04/05 9.4/28.4 03/28 FOBT positive 03/30 GOBT positive MSK: Patient can walk per sister, but is dizzy so hasn't walked PT/OT eval and treat when stable ID: Sepsis Code sepsis 03/28 02:20 03/28 lactate 9.7 03/28 lactate 01:05 9.2 03/28 lactate 06:15 1.3 03/27 WBC 26.7 03/28 WBC 30.2 03/29 WBC 21.3 03/30 WBC 16.1 03/31 WBC 15.7 04/02 WBC 16.8 04/03 WBC 18.4 04/04 WBC 18.6 04/05 WBC 20.1 03/30 blood Culture x 2, negative 03/30 MRSA screen negative 03/30 Urine Cx negative 04/02 Blood culturex2 negative 03/29 Neutrophils 75, Bands 9 03/30 Neutrophils 83, Bands 1 04/02 Neutrophils 83 04/04 Neutrophils 73.8 04/05 Neutrophils 74.4 Flagyl 500mg IVPB Q8H Zosyn 3.375gm in 50cc IVPB Q8H Prophylaxis: GI: Protonix Drip Zofran 4mg IVP Q6H PRN Nausea Tylenol 325mg AK Q4H PRN Fluids: D5W/NS @ 125cc/hr Diet: Clear Liquid Diet 04/04 NGT removed by patient, Flexiseal removed by patient, Left PICC removed by patient. 04/05 Patient downgraded to Regular Bed discussed with Dr. David Smith DO PGY1 - Date & Time Date: 04/05/17 Time: 07:16 <Jose Hernandez - Last Filed: 04/05/17 16:20> CCU Objective - Vital Signs / Intake & Output Vital Signs (Last 4 hours): Vital Signs Pulse BP Pulse Ox 04/05/17 12:49 142 H 128/74 98 Intake and Output (Last 8hrs): Intake & Output 04/05/17 04/05/17 04/05/17 06:59 14:59 22:59 Intake Total 1336 1237 250 Balance 1336 1237 250 Weight 145 lb Intake: Intake, IV Amount 1336 942 250 Left Distal Port PICC 336 42 Left Proximal Port PICC 1000 125 Right Antecubital 775 250 Oral 295 Other: # Voids Urethral (Tovar) 1 1 - Medications Active Medications: Active Medications Generic Name Dose Route Start Last Admin Trade Name Freq PRN Reason Stop Dose Admin Acetaminophen 325 mg 03/29/17 07:57 03/30/17 08:15 Tylenol 325 Mg Supp [place] 325 mg Q4 PRN Administration Fever >100.4 F Haloperidol Lactate 1 mg 03/29/17 18:47 04/04/17 21:01 Haldol IVP 1 mg BID PRN Administration Agitation Metronidazole 500 mg in 100 mls @ 100 mls/hr 03/27/17 23:45 04/05/17 13:44 Flagyl IVPB 100 mls/hr Q8 AGUSTIN Administration Piperacillin Sod/Tazobactam Sod 3.375 gm in 50 mls @ 100 mls/hr 03/28/17 02: 30 04/05/17 10:00 Zosyn 3.375 Gm Iv Premix IVPB 100 mls/hr Q8H AGUSTIN Administration Dextrose/Sodium Chloride 1,000 mls @ 125 mls/hr 04/03/17 22:00 04/05/17 05:01 Dextrose 5%/0.9% Ns 1000 Ml IV 125 mls/hr .Q8H AGUSTIN Administration Lorazepam 0.5 mg 04/01/17 16:08 04/05/17 15:20 Ativan IVP 0.5 mg Q3H PRN Administration Anxiety Metoclopramide HCl 10 mg 04/03/17 22:00 04/05/17 09:12 Reglan IVP 10 mg Q12 AGUSTIN Administration Morphine Sulfate 2 mg 04/02/17 21:29 04/03/17 22:39 Morphine IVP 2 mg Q4 PRN Administration Pain, moderate (4-7) Morphine Sulfate 4 mg 04/02/17 21:45 04/05/17 13:36 Morphine IVP 4 mg Q4 PRN Administration Pain, severe (8-10) Ondansetron HCl 4 mg 03/27/17 23:45 Zofran Inj IVP Q6H PRN Nausea/Vomiting Pantoprazole Sodium 40 mg 04/02/17 10:00 04/05/17 09:12 Protonix Inj IVP 40 mg DAILY AGUSTIN Administration - Patient Studies Lab Studies: Lab Studies 04/05/17 04/05/17 04/05/17 Range/Units 11:58 04:41 04:31 WBC (4.8-10.8) K/uL RBC (3.80-5.20) Mil/uL Hgb (11.0-16.0) g/dL Hct (34.0-47.0) % MCV (81.0-99.0) fL MCH (27.0-31.0) pg MCHC (33.0-37.0) g/dL RDW (11.5-14.5) % Plt Count (130-400) K/uL MPV (7.2-11.7) fL Neut % (Auto) (50.0-75.0) % Lymph % (Auto) (20.0-40.0) % [place] % (Auto) (0.0-10.0) % Eos % (Auto) (0.0-4.0) % Baso % (Auto) (0.0-2.0) % Neut # (1.8-7.0) K/uL Lymph # (1.0-4.3) K/uL [place] # (0.0-0.8) K/uL Eos # (0.0-0.7) K/uL Baso # (0.0-0.2) K/uL Sodium 131 L (132-148) mmol/L Potassium 3.9 (3.6-5.2) mmol/L Chloride 98 (98-107) mmol/L Carbon Dioxide 27 (22-30) mmol/L Anion Gap 11 (10-20) BUN 4 L (7-17) mg/dL Creatinine 0.5 L (0.7-1.2) mg/dL Est GFR ( Amer) > 60 Est GFR (Non-Af Amer) > 60 POC Glucose (mg/dL) 115 H 85 (65-110) mg/dL Random Glucose 94 (65-105) mg/dL Calcium 7.9 L (8.6-10.4) mg/dl Phosphorus 4.3 (2.5-4.5) mg/dL 04/05/17 04/05/17 04/04/17 Range/Units 04:31 00:26 17:28 WBC 20.1 H (4.8-10.8) K/uL RBC 3.45 L (3.80-5.20) Mil/uL Hgb 9.4 L (11.0-16.0) g/dL Hct 28.4 L (34.0-47.0) % MCV 82.3 (81.0-99.0) fL MCH 27.4 (27.0-31.0) pg MCHC 33.3 (33.0-37.0) g/dL RDW 13.6 (11.5-14.5) % Plt Count 480 H (130-400) K/uL MPV 7.8 (7.2-11.7) fL Neut % (Auto) 74.4 (50.0-75.0) % Lymph % (Auto) 12.9 L (20.0-40.0) % [place] % (Auto) 10.8 H (0.0-10.0) % Eos % (Auto) 1.5 (0.0-4.0) % Baso % (Auto) 0.4 (0.0-2.0) % Neut # 15.0 H (1.8-7.0) K/uL Lymph # 2.6 (1.0-4.3) K/uL [place] # 2.2 H (0.0-0.8) K/uL Eos # 0.3 (0.0-0.7) K/uL Baso # 0.1 (0.0-0.2) K/uL Sodium (132-148) mmol/L Potassium (3.6-5.2) mmol/L Chloride (98-107) mmol/L Carbon Dioxide (22-30) mmol/L Anion Gap (10-20) BUN (7-17) mg/dL Creatinine (0.7-1.2) mg/dL Est GFR ( Amer) Est GFR (Non-Af Amer) POC Glucose (mg/dL) 103 112 H (65-110) mg/dL Random Glucose (65-105) mg/dL Calcium (8.6-10.4) mg/dl Phosphorus (2.5-4.5) mg/dL Laboratory Results - last 24 hr 04/04/17 04/05/17 04/05/17 17:28 00:26 04:31 WBC 20.1 H RBC 3.45 L Hgb 9.4 L Hct 28.4 L MCV 82.3 MCH 27.4 MCHC 33.3 RDW 13.6 Plt Count 480 H MPV 7.8 Neut % (Auto) 74.4 Lymph % (Auto) 12.9 L [place] % (Auto) 10.8 H Eos % (Auto) 1.5 Baso % (Auto) 0.4 Neut # 15.0 H Lymph # 2.6 [place] # 2.2 H Eos # 0.3 Baso # 0.1 Sodium Potassium Chloride Carbon Dioxide Anion Gap BUN Creatinine Est GFR ( Amer) Est GFR (Non-Af Amer) POC Glucose (mg/dL) 112 H 103 Random Glucose Calcium Phosphorus 04/05/17 04/05/17 04/05/17 04:31 04:41 11:58 WBC RBC Hgb Hct MCV MCH MCHC RDW Plt Count MPV Neut % (Auto) Lymph % (Auto) [place] % (Auto) Eos % (Auto) Baso % (Auto) Neut # Lymph # [place] # Eos # Baso # Sodium 131 L Potassium 3.9 Chloride 98 Carbon Dioxide 27 Anion Gap 11 BUN 4 L Creatinine 0.5 L Est GFR ( Amer) > 60 Est GFR (Non-Af Amer) > 60 POC Glucose (mg/dL) 85 115 H Random Glucose 94 Calcium 7.9 L Phosphorus 4.3 Critical Care Progress Note - Nutrition Nutrition: Nutrition Category Date Time Status Liquid Diet [DIET] Diets 04/04/17 Breakfast Active Attending/Attestation - Attestation I have personally seen and examined this patient.: Yes I have fully participated in the care of the patient.: Yes I have reviewed all pertinent clinical information: Yes Notes (Text): 04/05/17 16:19 patient seen and examined in the intensive Care unit. Case discussed with staff in the morning around Patient tolerated food yesterday and today Seen by surgery Psychiatric evaluation Transfer patient to floor
--- NOTE | 2017-04-05 08:40 | CP.PCM.PN ---
Subjective - Date & Time of Evaluation Date of Evaluation: 04/05/17 Time of Evaluation: 05:45 - Subjective Subjective: Gen Surg: Dr Mendez Pt S&E. NGT removed yesterday. Started on CLD. Tolerating. No emesis. Pt much more comfortable. Tachycardia significantly reduced, down to low 100s. Escalates when pt is agitated. Continues to have BMs. HgB stable. Objective - Vital Signs/Intake and Output Vital Signs (last 24 hours): Temp Pulse Resp BP Pulse Ox 98.9 F 123 H 31 H 107/69 97 04/05/17 04:00 04/05/17 06:26 04/05/17 06:26 04/05/17 06:26 04/05/17 05:48 Intake and Output: 04/05/17 04/05/17 06:59 18:59 Intake Total 1978 Balance 1978 - Medications Medications: Current Medications Acetaminophen (Tylenol 325 Mg Supp) 325 mg [place] Q4 PRN PRN Reason: Fever >100.4 F Last Admin: 03/30/17 08:15 Dose: 325 mg Haloperidol Lactate (Haldol) 1 mg IVP BID PRN PRN Reason: Agitation Last Admin: 04/04/17 21:01 Dose: 1 mg Metronidazole (Flagyl) 500 mg in 100 mls @ 100 mls/hr IVPB Q8 [facility] Last Admin: 04/05/17 05:00 Dose: 100 mls/hr Piperacillin Sod/Tazobactam Sod (Zosyn 3.375 Gm Iv Premix) 3.375 gm in 50 mls @ 100 mls/hr IVPB Q8H [facility] Last Admin: 04/05/17 02:58 Dose: 100 mls/hr Dextrose/Sodium Chloride (Dextrose 5%/0.9% Ns 1000 Ml) 1,000 mls @ 125 mls/hr IV .Q8H AGUSTIN Last Admin: 04/05/17 05:01 Dose: 125 mls/hr Lorazepam (Ativan) 0.5 mg IVP Q3H PRN PRN Reason: Anxiety Last Admin: 04/04/17 20:24 Dose: 0.5 mg Metoclopramide HCl (Reglan) 10 mg IVP Q12 AGUSTIN Last Admin: 04/04/17 21:00 Dose: 10 mg Morphine Sulfate (Morphine) 2 mg IVP Q4 PRN PRN Reason: Pain, moderate (4-7) Last Admin: 04/03/17 22:39 Dose: 2 mg Morphine Sulfate (Morphine) 4 mg IVP Q4 PRN PRN Reason: Pain, severe (8-10) Last Admin: 04/05/17 07:55 Dose: 4 mg Ondansetron HCl (Zofran Inj) 4 mg IVP Q6H PRN PRN Reason: Nausea/Vomiting Pantoprazole Sodium (Protonix Inj) 40 mg IVP DAILY AGUSTIN Last Admin: 04/04/17 09:40 Dose: 40 mg - Labs Labs: 04/05/17 04:31 04/05/17 04:31 PT 14.3 SECONDS (9.7-12.2) H 04/04/17 06:22 INR 1.3 04/04/17 06:22 APTT 30 SECONDS (21-34) 03/29/17 09:23 - Constitutional Appears: Non-toxic - Eye Exam Eye Exam: Normal appearance - ENT Exam ENT Exam: Mucous Membranes Moist - Respiratory Exam Respiratory Exam: absent: Accessory Muscle Use, Respiratory Distress - Cardiovascular Exam Cardiovascular Exam: Tachycardia (low 100s - improived), REGULAR RHYTHM - GI/Abdominal Exam GI & Abdominal Exam: Soft. absent: Distended, Firm, Guarding, Rigid, Tenderness - Neurological Exam Neurological Exam: Alert, Awake. absent: Oriented x3 - Psychiatric Exam Psychiatric exam: Agitated, Anxious - Skin Skin Exam: Normal Color Assessment and Plan - Assessment and Plan (Free Text) Assessment: 36F with gastroparesis + N/V likely secondary to gastritis and gastric ulcer Plan: NGT out adv diet as tolerated - pt having BMs likely can be stepped down from ICU soon cont protonix - pt should probably continue as outpatient given gastroparesis is significant risk factor for PUD recommend resuming appropriate psych medication no surgical intervention planned will continue to monitor will d/w Dr Andrea Camacho, PGY3
[2017-04-05] MEDS ORDERED: PPN #4 IV SCH (18:00)
--- NOTE | 2017-04-05 22:40 | CARD ---
APPROVED REPORT EKG Measurement Heart [id number] <Conclusion> Sinus tachycardia Low voltage QRS Anterolateral infarct, age undetermined Abnormal ECG
--- NOTE | 2017-04-05 23:01 | CP.PCM.PN ---
Subjective - Date & Time of Evaluation Date of Evaluation: 04/05/17 Time of Evaluation: 23:00 - Subjective Subjective: This patient is mentally handicapped, non verbal, with recurrent crying out in her room. Agitated when awake. No further vomits. Still with some loose bowel Patient with persistent HR of 140s/min and RR of 30s with SpO2 97 on 3liters of Oxygen. BP 97/52mmHg Temp 100F rectal CXR: Poor inspiration Left base opacity D-Dimer: 4184 #.Sinus Tachycardia . r/o PE. Patient is afebrile, does not appear to be volume depleted with normal Creatinine and BUN and receiving IV fluid at 125mls/hr. - Stat CTA Chest Impression No Pulmonary Embolism Small left pleural effusion with left lower lobe airspace disease. Atelectasis vs infiltrate right base - Patient already on SCD - DVT Prophylaxis with Lovenox #. Heart rate has decreased to 122/min but pte still tachypneic RR of 30. Is she acidotic? more so Alkalotic with the tachypneic - Follow [facility] Naldo Simpson MD Objective - Vital Signs/Intake and Output Vital Signs (last 24 hours): Temp Pulse Resp BP Pulse Ox 99.1 F 139 H 28 H 109/70 99 04/05/17 19:58 04/05/17 22:00 04/05/17 22:00 04/05/17 21:48 04/05/17 22:00 Intake and Output: 04/05/17 04/06/17 18:59 06:59 Intake Total 1762 125 Balance 1762 125 - Medications Medications: Current Medications Acetaminophen (Tylenol 325 Mg Supp) 325 mg SC Q4 PRN PRN Reason: Fever >100.4 F Last Admin: 03/30/17 08:15 Dose: 325 mg Haloperidol Lactate (Haldol) 1 mg IVP BID PRN PRN Reason: Agitation Last Admin: 04/05/17 22:45 Dose: 1 mg Metronidazole (Flagyl) 500 mg in 100 mls @ 100 mls/hr IVPB Q8 [facility] Last Admin: 04/05/17 21:01 Dose: 100 mls/hr Piperacillin Sod/Tazobactam Sod (Zosyn 3.375 Gm Iv Premix) 3.375 gm in 50 mls @ 100 mls/hr IVPB Q8H [facility] Last Admin: 04/05/17 17:44 Dose: 100 mls/hr Dextrose/Sodium Chloride (Dextrose 5%/0.9% Ns 1000 Ml) 1,000 mls @ 125 mls/hr IV .Q8H [facility] Last Admin: 04/05/17 22:45 Dose: Not Given Lorazepam (Ativan) 0.5 mg IVP Q3H PRN PRN Reason: Anxiety Last Admin: 04/05/17 15:20 Dose: 0.5 mg Metoclopramide HCl (Reglan) 10 mg IVP Q12 [facility] Last Admin: 04/05/17 21:03 Dose: 10 mg Morphine Sulfate (Morphine) 2 mg IVP Q4 PRN PRN Reason: Pain, moderate (4-7) Last Admin: 04/03/17 22:39 Dose: 2 mg Morphine Sulfate (Morphine) 4 mg IVP Q4 PRN PRN Reason: Pain, severe (8-10) Last Admin: 04/05/17 19:02 Dose: 4 mg Ondansetron HCl (Zofran Inj) 4 mg IVP Q6H PRN PRN Reason: Nausea/Vomiting Pantoprazole Sodium (Protonix Inj) 40 mg IVP DAILY [facility] Last Admin: 04/05/17 09:12 Dose: 40 mg - Labs Labs: 04/05/17 04:31 04/05/17 04:31 PT 14.3 SECONDS (9.7-12.2) H 04/04/17 06:22 INR 1.3 04/04/17 06:22 APTT 30 SECONDS (21-34) 03/29/17 09:23
[2017-04-05] MEDS ORDERED: Iodixanol 320 MG/ML 100 ML BOTTLE IV ONE (23:44)
--- NOTE | 2017-04-06 01:15 | CT ---
EXAM: CT Angiography Chest With Intravenous Contrast EXAM DATE/TIME: 04/05/2017 10:59 PM CLINICAL HISTORY: 36 years old, female; Pain; Chest pain; Other: Elevated d dimer/tachycardia; Patient HX: 04-02-17 TECHNIQUE: Axial computed tomographic angiography images of the chest with intravenous contrast using pulmonary embolism protocol. All CT scans at this facility use one or more dose reduction techniques, viz.: automated exposure control; ma/kV adjustment per patient size (including targeted exams where dose is matched to indication; i.e. head); or iterative reconstruction technique. MIP reconstructed images were created and reviewed. Coronal and sagittal reformatted images were created and reviewed. CONTRAST: 100 mL of [id number] administered intravenously. COMPARISON: CT - CHEST,ABD,PEL W/IV PO CONTRAST 2017-04-02 03:35 FINDINGS: Artifacts: Motion artifact degrades image quality. Streak artifact degrades image quality. Heart, aorta and Pulmonary arteries: Heart size is normal. There is no pericardial effusion.There is no aneurysm or dissection. There is perfusion of the 3 arch vessels. There are no central pulmonary emboli. Streak and motion limits evaluation of peripheral vessels. There are no large peripheral pulmonary emboli. Lungs and pleural spaces: Trachea and main bronchi are patent.There is no pneumothorax. There is a small left pleural effusion. There is no significant right effusion. There is minimal airspace disease in the lingula. There is partial consolidation of the left lower lobe with air bronchograms. There is subsegmental atelectasis/infiltrate and patchy airspace disease at the right base. Mediastinum: The esophagus is not well demonstrated. Nasogastric tube has been removed. There are no pathologically enlarged mediastinal or hilar nodes. Thyroid: Thyroid is not optimally demonstrated. Bones/joints: There are no acute osseous abnormalities. Soft tissues: unremarkable Upper abdomen: There is been decrease in gaseous distention of the stomach. Stomach remains moderately distended. IMPRESSION: Small left pleural effusion with left lower lobe airspace disease infiltrate and/or atelectasis; subsegmental atelectasis/infiltrate at the right base; limited by patient motion and streak artifact, no aneurysm, dissection or central pulmonary embolus, no large peripheral pulmonary emboli; interval removal of nasogastric tube with decrease in degree of gastric distention Additional findings as described above.
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
[2017-04-06] MEDS: Dextrose 5%/0.9% NS 1,000 ML IV SCH ×4 (02:12→22:00)
[2017-04-06] MEDS: Morphine 4 MG/ML VIAL IVP PRN ×2 (02:54→08:58)
[2017-04-06] MEDS: Piperacill/Tazo 3.375gm in Dex 3.375 GM/50 ML BAG IVPB SCH ×3 (03:42→17:32)
[2017-04-06] MEDS: metroNIDAZOLE IV 500 mg/100 ml 500 MG/100 ML BAG IVPB SCH ×3 (05:00→21:59)
[2017-04-06 06:55] LABS: BASO # 0.1 K/uL (0.0-0.2); BASO % 0.3 % (0.0-2.0); EOS # 0.3 K/uL (0.0-0.7); EOS % 1.3 % (0.0-4.0); HEMOGLOBIN 10.4 g/dL (11.0-16.0); LYMPH # 3.4 K/uL (1.0-4.3); LYMPH % 14.7 % (20.0-40.0); MEAN CELL VOLUME 85.5 fL (81.0-99.0); MEAN CORPUSCULAR HEMOGLOBIN 27.5 pg (27.0-31.0); MEAN CORPUSCULAR HGB CONC 32.2 g/dL (33.0-37.0); MEAN PLATELET VOLUME 8.1 fL (7.2-11.7); MONO # 2.6 K/uL (0.0-0.8); MONO % 11.2 % (0.0-10.0); NEUT # 16.9 K/uL (1.8-7.0); NEUT % 72.5 % (50.0-75.0); RBC 3.76 Mil/uL (3.80-5.20); RED CELL DISTRIBUTION WIDTH 13.7 % (11.5-14.5); WHITE BLOOD COUNT 23.2 K/uL (4.8-10.8)
[2017-04-06 07:21] LABS: BLOOD UREA NITROGEN < 2 mg/dL (7-17); CALCIUM 7.8 mg/dl (8.6-10.4); GFR AFRICAN-AMERICAN > 60; GFR NON-AFRICAN AMERICAN > 60
--- NOTE | 2017-04-06 07:39 | RAD ---
HISTORY: Tachypneic COMPARISON: Portable chest 04/04/2017. FINDINGS: Prior nasogastric tube is been removed as well as left PICC. LUNGS: Retrocardiac opacity persists suggesting likely atelectasis but infiltrate is not excluded here. History volume remains relatively low overall once again. No right-sided infiltrate. PLEURA: No significant pleural effusion identified, no pneumothorax apparent. CARDIOVASCULAR: Cardiomediastinal silhouette appears stable exclusive NG tube and PICC catheter removal. OSSEOUS STRUCTURES: No significant abnormalities. VISUALIZED UPPER ABDOMEN: Normal. OTHER FINDINGS: None. IMPRESSION: Persistent left basilar atelectasis or infiltrate with remaining lung mooney clear. Nasogastric tube and PICC catheter have been removed.
--- NOTE | 2017-04-06 08:55 | CP.PCM.PN ---
Subjective - Date & Time of Evaluation Date of Evaluation: 04/06/17 Time of Evaluation: 07:30 - Subjective Subjective: Surgery Progress note. Dr. Mendez Pt seen and examined at bedside. No acute events overnight. Patient noted to be normocardic when resting, and tachycardic when awake and agitated. As per nursing staff, she has been tolerating clears. No N/V. She is having BMs. ROS unobtainable due to baseline MR. D-dimer elevated last night, CTA with no evidence of PE. Objective - Vital Signs/Intake and Output Vital Signs (last 24 hours): Temp Pulse Resp BP Pulse Ox 98.5 F 103 H 22 106/69 100 04/06/17 04:00 04/06/17 07:00 04/06/17 07:00 04/06/17 06:49 04/06/17 07:00 Intake and Output: 04/06/17 04/06/17 06:59 18:59 Intake Total 2115 Balance 2115 - Medications Medications: Current Medications Acetaminophen (Tylenol 325 Mg Supp) 325 mg NE Q4 PRN PRN Reason: Fever >100.4 F Last Admin: 03/30/17 08:15 Dose: 325 mg Haloperidol Lactate (Haldol) 1 mg IVP BID PRN PRN Reason: Agitation Last Admin: 04/05/17 22:45 Dose: 1 mg Metronidazole (Flagyl) 500 mg in 100 mls @ 100 mls/hr IVPB Q8 [facility] Last Admin: 04/06/17 05:00 Dose: 100 mls/hr Piperacillin Sod/Tazobactam Sod (Zosyn 3.375 Gm Iv Premix) 3.375 gm in 50 mls @ 100 mls/hr IVPB Q8H [facility] Last Admin: 04/06/17 03:42 Dose: 100 mls/hr Dextrose/Sodium Chloride (Dextrose 5%/0.9% Ns 1000 Ml) 1,000 mls @ 125 mls/hr IV .Q8H [facility] Last Admin: 04/06/17 05:01 Dose: Not Given Lorazepam (Ativan) 0.5 mg IVP Q3H PRN PRN Reason: Anxiety Last Admin: 04/06/17 00:17 Dose: 0.5 mg Metoclopramide HCl (Reglan) 10 mg IVP Q12 [facility] Last Admin: 04/05/17 21:03 Dose: 10 mg Morphine Sulfate (Morphine) 2 mg IVP Q4 PRN PRN Reason: Pain, moderate (4-7) Last Admin: 04/03/17 22:39 Dose: 2 mg Morphine Sulfate (Morphine) 4 mg IVP Q4 PRN PRN Reason: Pain, severe (8-10) Last Admin: 04/06/17 02:54 Dose: 4 mg Ondansetron HCl (Zofran Inj) 4 mg IVP Q6H PRN PRN Reason: Nausea/Vomiting Pantoprazole Sodium (Protonix Inj) 40 mg IVP DAILY [facility] Last Admin: 04/05/17 09:12 Dose: 40 mg - Labs Labs: 04/06/17 06:52 04/06/17 06:52 PT 14.3 SECONDS (9.7-12.2) H 04/04/17 06:22 INR 1.3 04/04/17 06:22 APTT 30 SECONDS (21-34) 03/29/17 09:23 - Constitutional Appears: Non-toxic, No Acute Distress - Head Exam Head Exam: ATRAUMATIC, NORMAL INSPECTION, NORMOCEPHALIC - Eye Exam Eye Exam: EOMI, Normal appearance - ENT Exam ENT Exam: Mucous Membranes Moist - GI/Abdominal Exam GI & Abdominal Exam: Soft. absent: Distended, Firm, Guarding, Rigid, Tenderness - Extremities Exam Extremities Exam: Normal Inspection. absent: Calf Tenderness - Neurological Exam Neurological Exam: Alert, Awake Assessment and Plan - Assessment and Plan (Free Text) Assessment: 36yo F with gastroparesis, gastritis and gastric ulcer. - advance diet as tolerated - Recommend cont protonix - May resume appropriate psych meds - No plans for any acute surgical intervention Further recs as per Dr. Andrea Manzano PGY1 surgery pager: [phone]
[2017-04-06 09:20] LABS: VENOUS BLOOD GAS BASE EXCESS 3.2 mmol/L (0.0-2.0); VENOUS BLOOD GAS PCO2 42 mmHg (40-60); VENOUS BLOOD GAS PO2 42 mm/Hg (30-55); VENOUS BLOOD PH 7.43 (7.32-7.43)
--- NOTE | 2017-04-06 13:47 | PN ---
DATE: LOCATION: [facility], bed A. SUBJECTIVE: This is a 36-year-old female, seen and examined out in the Intensive Care Unit with family member as well as staff in the floor. Appeared to be somewhat agitated and restless. No significant other clinical reported changes and no reported nausea or vomiting or active bleeding. Today's labs showed leukocytosis of 23.2 with hemoglobin 10.4, hematocrit 32.2 with thrombocytosis of 537 with reported abnormal ABGs. Sodium is 131 with low BUN and creatinine and low calcium. The patient had before chest CAT scan yesterday, report is seen. PHYSICAL EXAMINATION: GENERAL: A 36-year-old female, nonverbal. VITAL SIGNS: Afebrile with pulse of 88, respiratory rate 20 to 24, blood pressure 104/66. HEENT: Showed pale dry oral mucous membrane. Nonicteric sclerae. LUNGS: Scattered crepitation. Decreased air entry bilaterally. HEART: Positive S1 and S2 with increased rate. ABDOMEN: Soft with mild distention. No mass or organomegaly. No rebound tenderness or guarding. Bowel sounds are hypoactive. EXTREMITIES: With slight lower extremity edematous changes. No clubbing or cyanosis. NEUROLOGIC: No reported new neurological deficits, sensory or motor. The patient reported no nausea or vomiting through the nursing staff and having bowel movement recently. IMPRESSION: 1. Gastroparesis. 2. Anemia. 3. Electrolyte imbalance. 4. Peptic ulcer disease by recent history. 5. Malnutrition with hypoalbuminemia. 6. Anemia secondary to above. 7. Known history of psychiatric disorder. SUGGESTION: 1. Continue current management. 2. Surgical reevaluation. 3. No need for further aggressive GI workup. William Michael MD
--- NOTE | 2017-04-06 19:51 | CP.PCM.PN ---
Subjective - Date & Time of Evaluation Date of Evaluation: 04/06/17 Time of Evaluation: 09:40 - Subjective Subjective: clinically same s/p Dr Mendez iv rx ongoing multiple consultants following Objective - Vital Signs/Intake and Output Vital Signs (last 24 hours): Temp Pulse Resp BP Pulse Ox 97.9 F 126 H 24 104/73 100 04/06/17 15:35 04/06/17 10:47 04/06/17 15:35 04/06/17 15:35 04/06/17 10:47 Intake and Output: 04/06/17 04/07/17 18:59 06:59 Intake Total 881 Balance 881 - Medications Medications: Current Medications Acetaminophen (Tylenol 325 Mg Supp) 325 mg [place] Q4 PRN PRN Reason: Fever >100.4 F Last Admin: 03/30/17 08:15 Dose: 325 mg Haloperidol Lactate (Haldol) 1 mg IVP BID PRN PRN Reason: Agitation Last Admin: 04/05/17 22:45 Dose: 1 mg Metronidazole (Flagyl) 500 mg in 100 mls @ 100 mls/hr IVPB Q8 [facility] Last Admin: 04/06/17 14:02 Dose: 100 mls/hr Piperacillin Sod/Tazobactam Sod (Zosyn 3.375 Gm Iv Premix) 3.375 gm in 50 mls @ 100 mls/hr IVPB Q8H [facility] Last Admin: 04/06/17 17:32 Dose: 100 mls/hr Dextrose/Sodium Chloride (Dextrose 5%/0.9% Ns 1000 Ml) 1,000 mls @ 125 mls/hr IV .Q8H [facility] Last Admin: 04/06/17 14:04 Dose: 125 mls/hr Lorazepam (Ativan) 0.5 mg IVP Q3H PRN PRN Reason: Anxiety Last Admin: 04/06/17 11:52 Dose: 0.5 mg Metoclopramide HCl (Reglan) 10 mg IVP Q12 [facility] Last Admin: 04/06/17 09:38 Dose: 10 mg Morphine Sulfate (Morphine) 2 mg IVP Q4 PRN PRN Reason: Pain, moderate (4-7) Last Admin: 04/06/17 13:47 Dose: 2 mg Morphine Sulfate (Morphine) 4 mg IVP Q4 PRN PRN Reason: Pain, severe (8-10) Last Admin: 04/06/17 08:58 Dose: 4 mg Ondansetron HCl (Zofran Inj) 4 mg IVP Q6H PRN PRN Reason: Nausea/Vomiting Pantoprazole Sodium (Protonix Inj) 40 mg IVP DAILY [facility] Last Admin: 04/06/17 09:51 Dose: 40 mg - Labs Labs: 04/06/17 06:52 04/06/17 06:52 PT 14.3 SECONDS (9.7-12.2) H 04/04/17 06:22 INR 1.3 04/04/17 06:22 APTT 30 SECONDS (21-34) 03/29/17 09:23
[2017-04-07] MEDS: Piperacill/Tazo 3.375gm in Dex 3.375 GM/50 ML BAG IVPB SCH ×3 (02:48→18:19)
[2017-04-07] MEDS: metroNIDAZOLE IV 500 mg/100 ml 500 MG/100 ML BAG IVPB SCH ×3 (05:27→21:58)
--- NOTE | 2017-04-07 08:27 | CP.PCM.PN ---
Subjective - Date & Time of Evaluation Date of Evaluation: 04/07/17 Time of Evaluation: 07:25 - Subjective Subjective: Surgery Progress note. Dr. Mendez Pt seen and examined at bedside. No acute events overnight. Resting well this morning. No new complaints reported as per nursing staff. Tolerating liquids Objective - Vital Signs/Intake and Output Vital Signs (last 24 hours): Temp Pulse Resp BP Pulse Ox 99.2 F 129 H 20 106/73 95 04/06/17 23:00 04/07/17 04:09 04/06/17 23:00 04/06/17 23:00 04/06/17 23:00 Intake and Output: 04/07/17 04/07/17 06:59 18:59 Intake Total 2030 Balance 2030 - Medications Medications: Current Medications Acetaminophen (Tylenol 325 Mg Supp) 325 mg [place] Q4 PRN PRN Reason: Fever >100.4 F Last Admin: 03/30/17 08:15 Dose: 325 mg Haloperidol Lactate (Haldol) 1 mg IVP BID PRN PRN Reason: Agitation Last Admin: 04/06/17 22:00 Dose: 1 mg Metronidazole (Flagyl) 500 mg in 100 mls @ 100 mls/hr IVPB Q8 [facility] Last Admin: 04/07/17 05:27 Dose: 100 mls/hr Piperacillin Sod/Tazobactam Sod (Zosyn 3.375 Gm Iv Premix) 3.375 gm in 50 mls @ 100 mls/hr IVPB Q8H [facility] Last Admin: 04/07/17 02:48 Dose: 100 mls/hr Lorazepam (Ativan) 0.5 mg IVP Q3H PRN PRN Reason: Anxiety Last Admin: 04/06/17 11:52 Dose: 0.5 mg Metoclopramide HCl (Reglan) 10 mg IVP Q12 [facility] Last Admin: 04/06/17 22:00 Dose: 10 mg Morphine Sulfate (Morphine) 2 mg IVP Q4 PRN PRN Reason: Pain, moderate (4-7) Last Admin: 04/06/17 13:47 Dose: 2 mg Morphine Sulfate (Morphine) 4 mg IVP Q4 PRN PRN Reason: Pain, severe (8-10) Last Admin: 04/06/17 08:58 Dose: 4 mg Ondansetron HCl (Zofran Inj) 4 mg IVP Q6H PRN PRN Reason: Nausea/Vomiting Pantoprazole Sodium (Protonix Inj) 40 mg IVP DAILY [facility] Last Admin: 04/06/17 09:51 Dose: 40 mg - Labs Labs: 04/06/17 06:52 04/06/17 06:52 PT 14.3 SECONDS (9.7-12.2) H 04/04/17 06:22 INR 1.3 04/04/17 06:22 APTT 30 SECONDS (21-34) 03/29/17 09:23 - Constitutional Appears: Non-toxic, No Acute Distress - Head Exam Head Exam: ATRAUMATIC, NORMAL INSPECTION, NORMOCEPHALIC - Eye Exam Eye Exam: EOMI - Respiratory Exam Respiratory Exam: NORMAL BREATHING PATTERN. absent: Accessory Muscle Use, Respiratory Distress - GI/Abdominal Exam GI & Abdominal Exam: Soft. absent: Distended, Guarding, Tenderness, Rebound - Extremities Exam Extremities Exam: Normal Inspection - Neurological Exam Neurological Exam: absent: Oriented x3 - Skin Skin Exam: Dry, Intact, Normal Color, Warm Assessment and Plan - Assessment and Plan (Free Text) Assessment: 36yo F with gastroparesis, gastritis and gastric ulcer. - Tolerating Clears. Will advance to soft. Advance as tolerated - Continue protonix - No plans for any acute surgical intervention Further recs as per Dr. Andrea Manzano PGY1 surgery pager: [phone]
--- NOTE | 2017-04-07 10:29 | CP.PCM.PN ---
<Nicholas Crowder - Last Filed: 04/07/17 16:44> Subjective - Date & Time of Evaluation Date of Evaluation: 04/07/17 Time of Evaluation: 10:26 - Subjective Subjective: Progress Note for Dr. Granger's Service Patient seen and examined at bedside this morning. Patient was crying and moaning upon examination. This has been her baseline during her hospital stay here. She was tolerating her diet and having bowel movements. She was evaluated by surgery, who has advanced her diet. ROS and adequate understanding for her crying/moaning are unable to be evaluated due to baseline mental retardation. She is going for venous dopplers this morning to r/o DVT. Objective - Vital Signs/Intake and Output Vital Signs (last 24 hours): Temp Pulse Resp BP Pulse Ox 99.3 F 120 H 20 130/73 95 04/07/17 08:28 04/07/17 08:45 04/07/17 08:28 04/07/17 08:28 04/07/17 08:28 Intake and Output: 04/07/17 04/07/17 06:59 18:59 Intake Total 2030 Balance 2030 - Medications Medications: Current Medications Acetaminophen (Tylenol 325 Mg Supp) 325 mg [place] Q4 PRN PRN Reason: Fever >100.4 F Last Admin: 03/30/17 08:15 Dose: 325 mg Haloperidol Lactate (Haldol) 1 mg IVP BID PRN PRN Reason: Agitation Last Admin: 04/06/17 22:00 Dose: 1 mg Metronidazole (Flagyl) 500 mg in 100 mls @ 100 mls/hr IVPB Q8 [facility] Last Admin: 04/07/17 05:27 Dose: 100 mls/hr Piperacillin Sod/Tazobactam Sod (Zosyn 3.375 Gm Iv Premix) 3.375 gm in 50 mls @ 100 mls/hr IVPB Q8H [facility] Last Admin: 04/07/17 09:33 Dose: 100 mls/hr Lorazepam (Ativan) 0.5 mg IVP Q3H PRN PRN Reason: Anxiety Last Admin: 04/06/17 11:52 Dose: 0.5 mg Metoclopramide HCl (Reglan) 10 mg IVP Q12 [facility] Last Admin: 04/07/17 09:32 Dose: 10 mg Morphine Sulfate (Morphine) 2 mg IVP Q4 PRN PRN Reason: Pain, moderate (4-7) Last Admin: 04/06/17 13:47 Dose: 2 mg Morphine Sulfate (Morphine) 4 mg IVP Q4 PRN PRN Reason: Pain, severe (8-10) Last Admin: 04/06/17 08:58 Dose: 4 mg Ondansetron HCl (Zofran Inj) 4 mg IVP Q6H PRN PRN Reason: Nausea/Vomiting Pantoprazole Sodium (Protonix Inj) 40 mg IVP DAILY [facility] Last Admin: 04/07/17 09:32 Dose: 40 mg - Labs Labs: 04/06/17 06:52 04/06/17 06:52 PT 14.3 SECONDS (9.7-12.2) H 04/04/17 06:22 INR 1.3 04/04/17 06:22 APTT 30 SECONDS (21-34) 03/29/17 09:23 - Constitutional Appears: Non-toxic, Other (crying, moaning, questionable pain?) - Head Exam Head Exam: ATRAUMATIC, NORMOCEPHALIC - Eye Exam Eye Exam: EOMI - ENT Exam ENT Exam: Mucous Membranes Moist - Respiratory Exam Respiratory Exam: NORMAL BREATHING PATTERN. absent: Rhonchi, Wheezes - Cardiovascular Exam Cardiovascular Exam: REGULAR RHYTHM, +S1, +S2 - GI/Abdominal Exam GI & Abdominal Exam: Guarding, Soft, Tenderness - Extremities Exam Extremities Exam: absent: Calf Tenderness, Pedal Edema - Neurological Exam Neurological Exam: Alert, Awake - Skin Skin Exam: Dry, Warm Assessment and Plan - Assessment and Plan (Free Text) Plan: Gastroparesis 03/28 Lipase 8456 03/29 Lipase 322 03/30 Lipase 64 03/28 00:18 CT abdomen/pelvis with IV contrast: gastric distention 32cm and distention of the first and third and second portion of duodenum. Transition and complete decompression of third portion of duodenum. pancreas unremarkable, spleen unremarkable, partially contracted gallbladder. duodenal obstruction v delayed emptying v gastroparesis. Fluid distention of distal esophagus 3.3cm representing gastric emptying v gastroesophageal reflux. f/u 03/[address] abdomen/pelvis with IV contrast: significantly dilated stomach with retained food and fluid. significantly diminished prior to earlier CT 03/28. No free intraperitoneal gas identified. contrast noted in Gallbladder. 03/28 FOBT positive 03/[address] connected to suction. 03/28 NGT OP since insertion: 2600cc 03/[address] Harmon to have EGD today Gastric ulcers identified Gastritis 03/29 NGT 2350 03/[address] Harmon, place patient on Reglan to help with motility. 03/30 Abdominal xray/obstructive series: minimal distention of stomach compared to previous imaging studies 03/30 NGT 1160 03/30 GOBT positive 03/31 NGT 630 03/31 Pathology for Antrum biopsy from 03/29 EGD current biopsy negative for H pylori 04/01 f/u Dr. Harmon for repeat EGD. 04/01 NGT 800 04/02 CT chest shows gastric distension measuring 27 cm with possible gastric pneumatosis. NG tube in fundus of stomach. Peripancreatic infiltration. Moderate intraperitoneal pelvic fluid with prominent surrounding peritoneal lining. Upper abdominal loculated ascites with peritoneal enhancement above spleen. Lipase 320. f/u Strict I/Os 04/07- patient is tolerating her diet. Diet has been advanced by surgery- regular diet. She is having bowel movements Surgery consults (Dr. Woodruff, Dr. Mendez)- recommendations appreciated -No surgical intervention at this time -Will monitor advanced diet GI consulted (Dr. Harmon)- recs appreciated Morphine 2 mg IV q4h PRN moderate pain Morphine 4 mg IV q4h PRN severe pain Zofran 4mg IVP q6h PRN Reglan 10 mg IVP q4h PRN Sepsis Code sepsis 03/28 02:20 03/28 lactate 9.7 03/28 lactate 01:05 9.2 03/28 lactate 06:15 1.3 03/27 WBC 26.7 03/28 WBC 30.2 03/29 WBC 21.3 03/30 WBC 16.1 03/31 WBC 15.7 03/30 blood Culture x 2, negative 03/30 MRSA screen negative 03/30 Urine Cx negative 04/02 WBC 16.8. Blood culturex2 negative 04/04 WBC 18.6 03/29 Neutrophils 75, Bands 9 03/30 Neutrophils 83, Bands 1 04/02 Neutrophils 83 04/04 Neutrophils 73.8 04/07 WBC 23.2 04/07 Neutrophils 72.5 Flagyl 500mg IVPB Q8H Zosyn 3.375gm in 50cc IVPB Q8H Afebrile >24hrs Aspiration pneumonia s/p EGD with intubation then extubation 03/27 AB.22 03/27 CXR in infiltrates, no active pulmonary disease 03/30 CXR: poor inspiratory effort, areas suggestive of aspiration pneumonia 04/02: CT abdomen/pelvis/chest: pleural effusions, bilateral perihilar consolidations possibly due to multifocal pneumonia vs. atelectasis 04/04: CXR: Left lower lobe atelectasis/pneumonia and small left pleural effusion. Stable position of nasogastric tube and left PICC line Hyponatremia 04/07 Na: 131- improved hx of Schizophrenia Psych Consult Dr. Mclcoud: f/u 03/30 EKG to evaluate QTc Quetiapine (Seroquel) 200mg POBID, held d/t NGT on IWS Escitalopram (Lexapro) 10mg PO QD, held d/t NGT on IWS patient has mental retardation and can speak some words Haldol 1mg IVP Q12H PRN agitation- currently held; awaiting psych approval Ativan 0.5mg Q6H PRN agitation- currently held; awaiting psych approval Prophylaxis: Protonix 40mg IVP daily Zofran 4mg IVP Q6H PRN Nausea Tylenol 325mg [place] Q4H PRN PT/OT eval and treat when stable Lower extremity dopplers done today to evaluate for DVT- negative This patient's diet was advanced to regular diet today. She has been cleared for discharge by both GI and surgery. Will monitor to make sure she continues to tolerate food and has bowel movements. Consider discharge today/tomorrow. Case discussed with Dr. Granger All management as per Dr. Granger <Aarti Granger S - Last Filed: 04/07/17 22:54> Objective - Vital Signs/Intake and Output Vital Signs (last 24 hours): Temp Pulse Resp BP Pulse Ox 99.3 F 145 H 20 130/73 95 04/07/17 08:28 04/07/17 16:00 04/07/17 08:28 04/07/17 08:28 04/07/17 08:28 Intake and Output: 04/07/17 04/08/17 18:59 06:59 Intake Total 540 Balance 540 - Medications Medications: Current Medications Acetaminophen (Tylenol 325 Mg Supp) 325 mg [place] Q4 PRN PRN Reason: Fever >100.4 F Last Admin: 03/30/17 08:15 Dose: 325 mg Haloperidol Lactate (Haldol) 1 mg IVP BID PRN PRN Reason: Agitation Last Admin: 04/07/17 10:51 Dose: 1 mg Metronidazole (Flagyl) 500 mg in 100 mls @ 100 mls/hr IVPB Q8 [facility] Last Admin: 04/07/17 21:58 Dose: 100 mls/hr Piperacillin Sod/Tazobactam Sod (Zosyn 3.375 Gm Iv Premix) 3.375 gm in 50 mls @ 100 mls/hr IVPB Q8H [facility] Last Admin: 04/07/17 18:19 Dose: 100 mls/hr Lorazepam (Ativan) 0.5 mg IVP Q3H PRN PRN Reason: Anxiety Last Admin: 04/07/17 18:22 Dose: 0.5 mg Metoclopramide HCl (Reglan) 10 mg IVP Q12 [facility] Last Admin: 04/07/17 21:59 Dose: 10 mg Morphine Sulfate (Morphine) 2 mg IVP Q4 PRN PRN Reason: Pain, moderate (4-7) Last Admin: 04/06/17 13:47 Dose: 2 mg Morphine Sulfate (Morphine) 4 mg IVP Q4 PRN PRN Reason: Pain, severe (8-10) Last Admin: 04/07/17 19:32 Dose: 4 mg Ondansetron HCl (Zofran Inj) 4 mg IVP Q6H PRN PRN Reason: Nausea/Vomiting Pantoprazole Sodium (Protonix Inj) 40 mg IVP DAILY [facility] Last Admin: 04/07/17 09:32 Dose: 40 mg - Labs Labs: 04/06/17 06:52 04/06/17 06:52 PT 14.3 SECONDS (9.7-12.2) H 04/04/17 06:22 INR 1.3 04/04/17 06:22 APTT 30 SECONDS (21-34) 03/29/17 09:23 Attending/Attestation - Attestation I have personally seen and examined this patient.: Yes I have fully participated in the care of the patient.: Yes I have reviewed all pertinent clinical information, including history, physical exam and plan: Yes Notes (Text): 04/07/17 22:53 Is seen and discussed with the staff and resident able as the plan and agreed and A CT scan abdomen again repeat CAT scan of the chest and CAT scan of the previous abdomen and pelvis discussed with the family
--- NOTE | 2017-04-07 12:37 | VASCLAB ---
PROCEDURE: Lower Extremity Venous Duplex Exam. HISTORY: Leg swelling PRIORS: None. TECHNIQUE: Bilateral common femoral, femoral, popliteal and posterior tibial, peroneal and great saphenous veins were evaluated. Flow was assessed with color Doppler, compressibility, assessment of phasic flow and augmentation response. Report prepared by ALYCIA Albert FINDINGS: RIGHT: 1. Common Femoral Vein: 1.1. Compressibility - Fully compressible: Thrombus - None : Flow - Phasic: Augmentation -Normal: Reflux - None. 2. Femoral Vein: 2.1. Compressibility - Fully compressible: Thrombus - None : Flow - Phasic: Augmentation -Normal: Reflux - None. 3. Popliteal Vein: 3.1. Compressibility - Fully compressible: Thrombus - None : Flow - Phasic: Augmentation -Normal: Reflux - None. 4. Posterior Tibial Vein: 4.1. Compressibility - Fully compressible: Thrombus - None: Flow - Phasic: Augmentation -Normal: Reflux - None. 5. Peroneal Vein: 5.1. Compressibility - Fully compressible: Thrombus - None: Flow - Phasic: Augmentation -Normal: Reflux - None. 6. Great Saphenous Vein: 6.1. Compressibility - Fully compressible: Thrombus - None: Flow - Phasic: Augmentation - Normal: Reflux - None. LEFT: 1. Common Femoral Vein: 1.1. Compressibility - Fully compressible: Thrombus - None: Flow - Phasic: Augmentation -Normal: Reflux - None. 2. Femoral Vein: 2.1. Compressibility - Fully compressible: Thrombus - None: Flow - Phasic: Augmentation -Normal: Reflux - None. 3. Popliteal Vein: 3.1. Compressibility - Fully compressible: Thrombus - None : Flow - Phasic: Augmentation -Normal: Reflux - None. 4. Posterior Tibial Vein: 4.1. Compressibility - Fully compressible: Thrombus - None: Flow - Phasic: Augmentation -Normal: Reflux - None. 5. Peroneal Vein: 5.1. Compressibility - Fully compressible: Thrombus - None: Flow - Phasic: Augmentation -Normal: Reflux - None. 6. Great Saphenous Vein: 6.1. Compressibility - Fully compressible: Thrombus - None: Flow - Phasic: Augmentation - Normal: Reflux - None. OTHER FINDINGS: Technically difficult exam. Patient unable to cooperate. IMPRESSION: Right: No evidence of deep or superficial vein thrombosis of the right lower extremity. Normal valve function noted of the right side. Left: No evidence of deep or superficial vein thrombosis of the left lower extremity. Normal valve function noted of the left side.
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
[2017-04-07] MEDS: Morphine 4 MG/ML VIAL IVP PRN (19:32)
[2017-04-08] MEDS: Piperacill/Tazo 3.375gm in Dex 3.375 GM/50 ML BAG IVPB SCH ×3 (01:50→20:00)
[2017-04-08] MEDS: metroNIDAZOLE IV 500 mg/100 ml 500 MG/100 ML BAG IVPB SCH (05:20)
--- NOTE | 2017-04-08 07:39 | CP.PCM.CON ---
History of Present Illness - History of Present Illness History of Present Illness: consult dictated metabolic encephalopathy cp /parapresis mri/cat/eeg / Past Patient History - Past Medical History & Family History Past Medical History?: Yes - Past Social History Smoking Status: Never Smoked Home Situation {Lives}: With Family - CARDIAC Hx Cardiac Disorders: No - PULMONARY Hx Respiratory Disorders: No - NEUROLOGICAL Other/Comment: NEURO / DEVELOPMENTAL PROBLEM - HEENT Hx HEENT Problems: No - RENAL Hx Chronic Kidney Disease: No - ENDOCRINE/METABOLIC Hx Endocrine Disorders: No - HEMATOLOGICAL/ONCOLOGICAL Hx Blood Disorders: No - INTEGUMENTARY Hx Dermatological Problems: No - MUSCULOSKELETAL/RHEUMATOLOGICAL Hx Musculoskeletal Disorders: No Hx Falls: No - GASTROINTESTINAL Hx Gastrointestinal Disorders: No - GENITOURINARY/GYNECOLOGICAL Hx Genitourinary Disorders: No - PSYCHIATRIC Hx Depression: Yes Hx Schizophrenia: Yes Hx Substance Use: No - SURGICAL HISTORY Hx Surgeries: No - ANESTHESIA Hx Anesthesia: No Meds Allergies/Adverse Reactions: Allergies Allergy/AdvReac Type Severity Reaction Status Date / Time No Known Allergies Allergy Unverified 03/27/17 21:28 - Medications Medications: Current Medications Acetaminophen (Tylenol 325 Mg Supp) 325 mg [place] Q4 PRN PRN Reason: Fever >100.4 F Last Admin: 03/30/17 08:15 Dose: 325 mg Haloperidol Lactate (Haldol) 1 mg IVP BID PRN PRN Reason: Agitation Last Admin: 04/07/17 10:51 Dose: 1 mg Metronidazole (Flagyl) 500 mg in 100 mls @ 100 mls/hr IVPB Q8 [facility] Last Admin: 04/08/17 05:20 Dose: 100 mls/hr Piperacillin Sod/Tazobactam Sod (Zosyn 3.375 Gm Iv Premix) 3.375 gm in 50 mls @ 100 mls/hr IVPB Q8H [facility] Last Admin: 04/08/17 01:50 Dose: 100 mls/hr Lorazepam (Ativan) 0.5 mg IVP Q3H PRN PRN Reason: Anxiety Last Admin: 04/07/17 18:22 Dose: 0.5 mg Metoclopramide HCl (Reglan) 10 mg IVP Q12 [facility] Last Admin: 04/07/17 21:59 Dose: 10 mg Morphine Sulfate (Morphine) 2 mg IVP Q4 PRN PRN Reason: Pain, moderate (4-7) Last Admin: 04/06/17 13:47 Dose: 2 mg Morphine Sulfate (Morphine) 4 mg IVP Q4 PRN PRN Reason: Pain, severe (8-10) Last Admin: 04/07/17 19:32 Dose: 4 mg Ondansetron HCl (Zofran Inj) 4 mg IVP Q6H PRN PRN Reason: Nausea/Vomiting Pantoprazole Sodium (Protonix Inj) 40 mg IVP DAILY [facility] Last Admin: 04/07/17 09:32 Dose: 40 mg Results - Vital Signs Recent Vital Signs: Last Vital Signs Temp 99.0 F 04/07/17 16:00 Pulse 140 H 04/08/17 01:20 Resp 20 04/07/17 16:00 BP 121/70 04/07/17 16:00 Pulse Ox 96 04/07/17 16:00 - Labs Result Diagrams: 04/06/17 06:52 04/06/17 06:52 Labs: Laboratory Results - last 24 hr 04/07/17 04/07/17 04/08/17 11:31 20:55 06:08 POC Glucose (mg/dL) 116 H 166 H 145 H
--- NOTE | 2017-04-08 07:40 | CP.PCM.PN ---
Subjective - Date & Time of Evaluation Date of Evaluation: 04/08/17 Time of Evaluation: 08:00 - Subjective Subjective: Progress Note for Dr. Granger's Service Patient seen and examined at bedside this morning. ROS unable to obtain per patient's mental status. Patient was quiet and visibly shaking. Family was at bedside, They said she will normally talk or say a couple words but today she has been quiet and shaking. She has only consumed a bit of milk and yogurt. Family has not reported much urine output. Patient continued to be tachycardic. EKG was done around 3:30 which showed sinus tach ~130s. Cardizem 16mg IVP was given over 2 minutes. BP was stable in 130/75. Patient remained tachycardic ~130 bpm. Second dose of IV cardizem was given after 20 minutes 20mg IVP. Cardiology was notified and ICU was consulted. Patient also vomited 3 times wile at bedside. Will tx to ICU for closer monitoring. Objective - Vital Signs/Intake and Output Vital Signs (last 24 hours): Temp Pulse Resp BP Pulse Ox 99.0 F 140 H 20 121/70 96 04/07/17 16:00 04/08/17 01:20 04/07/17 16:00 04/07/17 16:00 04/07/17 16:00 Intake and Output: 04/08/17 04/08/17 06:59 18:59 Intake Total 390 Balance 390 - Medications Medications: Current Medications Acetaminophen (Tylenol 325 Mg Supp) 325 mg NC Q4 PRN PRN Reason: Fever >100.4 F Last Admin: 03/30/17 08:15 Dose: 325 mg Haloperidol Lactate (Haldol) 1 mg IVP BID PRN PRN Reason: Agitation Last Admin: 04/07/17 10:51 Dose: 1 mg Metronidazole (Flagyl) 500 mg in 100 mls @ 100 mls/hr IVPB Q8 [facility] Last Admin: 04/08/17 05:20 Dose: 100 mls/hr Piperacillin Sod/Tazobactam Sod (Zosyn 3.375 Gm Iv Premix) 3.375 gm in 50 mls @ 100 mls/hr IVPB Q8H [facility]IN Last Admin: 04/08/17 01:50 Dose: 100 mls/hr Lorazepam (Ativan) 0.5 mg IVP Q3H PRN PRN Reason: Anxiety Last Admin: 04/07/17 18:22 Dose: 0.5 mg Metoclopramide HCl (Reglan) 10 mg IVP Q12 AGUSTIN Last Admin: 04/07/17 21:59 Dose: 10 mg Morphine Sulfate (Morphine) 2 mg IVP Q4 PRN PRN Reason: Pain, moderate (4-7) Last Admin: 04/06/17 13:47 Dose: 2 mg Morphine Sulfate (Morphine) 4 mg IVP Q4 PRN PRN Reason: Pain, severe (8-10) Last Admin: 04/07/17 19:32 Dose: 4 mg Ondansetron HCl (Zofran Inj) 4 mg IVP Q6H PRN PRN Reason: Nausea/Vomiting Pantoprazole Sodium (Protonix Inj) 40 mg IVP DAILY [facility] Last Admin: 04/07/17 09:32 Dose: 40 mg - Labs Labs: 04/06/17 06:52 04/06/17 06:52 PT 14.3 SECONDS (9.7-12.2) H 04/04/17 06:22 INR 1.3 04/04/17 06:22 APTT 30 SECONDS (21-34) 03/29/17 09:23 - Constitutional Appears: Toxic, In Acute Distress, Other (crying, moaning) - Head Exam Head Exam: ATRAUMATIC, NORMAL INSPECTION, NORMOCEPHALIC - Eye Exam Eye Exam: EOMI - ENT Exam ENT Exam: Mucous Membranes Moist - Respiratory Exam Respiratory Exam: Clear to Ausculation Bilateral, NORMAL BREATHING PATTERN. absent: Respiratory Distress - Cardiovascular Exam Cardiovascular Exam: Tachycardia, REGULAR RHYTHM, +S1, +S2 - GI/Abdominal Exam GI & Abdominal Exam: Soft, Normal Bowel Sounds. absent: Distended, Guarding, Tenderness - Extremities Exam Extremities Exam: absent: Calf Tenderness - Neurological Exam Neurological Exam: Alert, Awake - Psychiatric Exam Psychiatric exam: Flat Affect - Skin Skin Exam: Diaphoretic, Normal Color Assessment and Plan - Assessment and Plan (Free Text) Assessment: Sepsis Code sepsis called again today 04/08. Patient was febrile (102 rectally and tachycardic ~140s) BP was 100/70. f/u UA, urine cultue ABG shock lactate 1 f/u blood cultures Tovar inserted to monitor urine output (nurse to clean TID with betadine) WBC 36.1 elevating from 20s. 4 bands Platelets 707 Fluids started 125 cc/hour BP stable Vanc 1gram Q12 hours IVPB Zosyn 3.375g IVPB Q8 hours Tyelnol 650mg rectally for 24 hours f/u CT abd/pelvis - patient appears to have an pneumonia in the left lower lung f/u legionella, step, and mycoplasma Pulm consulted, Dr. Hernandez, help appreciated Code sepsis 03/28 02:20 03/30 blood Culture x 2, negative 03/30 MRSA screen negative 03/30 Urine Cx negative 04/02 WBC 16.8. Blood culturex2 negative Acute kidney injury Dr. Saenz consulted, help appreciated NS at 125 cc/hour Cr increased from 0.7 to 1.4 Left lung infiltrate On vanc/zosyn f/u legionella, step, and mycoplasma Pulm consulted, Dr. Hernandez, help appreciated Per IR, nothing to drain CT angio/venous dopplers 04/07 - no PE or DVT Questionable aspiration pneumonis post EGD? Tachycardia likely secondary to sepsis Dr. Kowalski consulted, help appreciated CT angio/venous dopplers 04/07 - no PE or DVT Altered mental status 04/07 Dr. Bedoya consulted, help appreciated f/u EEG MRI f/u ABD/pelvis CT Gastroparesis 03/28 00:18 CT abdomen/pelvis with IV contrast: gastric distention 32cm and distention of the first and third and second portion of duodenum. Transition and complete decompression of third portion of duodenum. pancreas unremarkable, spleen unremarkable, partially contracted gallbladder. duodenal obstruction v delayed emptying v gastroparesis. Fluid distention of distal esophagus 3.3cm representing gastric emptying v gastroesophageal reflux. f/u 03/[address] abdomen/pelvis with IV contrast: significantly dilated stomach with retained food and fluid. significantly diminished prior to earlier CT 03/28. No free intraperitoneal gas identified. contrast noted in Gallbladder. 03/29 Gastric ulcers identified Gastritis 03/30 GOBT positive 03/31 Pathology for Antrum biopsy from 03/29 EGD current biopsy negative for H pylori 04/01 f/u Dr. Harmon for repeat EGD., NGT 800 04/02 CT chest shows gastric distension measuring 27 cm with possible gastric pneumatosis. NG tube in fundus of stomach. Peripancreatic infiltration. Moderate intraperitoneal pelvic fluid with prominent surrounding peritoneal lining. Upper abdominal loculated ascites with peritoneal enhancement above spleen. Lipase GI consulted (Dr. Harmon)- recs appreciated Morphine 2 mg IV q4h PRN moderate pain Morphine 4 mg IV q4h PRN severe pain Zofran 4mg IVP q6h PRN Reglan 10 mg IVP q4h PRN Hyponatremia Resolved 04/07 Na: 131- improved hx of Schizophrenia Psych Consult Dr. Mccloud: f/u 03/30 EKG to evaluate QTc Quetiapine (Seroquel) 200mg POBID, held d/t NGT on IWS Escitalopram (Lexapro) 10mg PO QD, held d/t NGT on IWS patient has mental retardation and can speak some words Haldol 1mg IVP Q12H PRN agitation Ativan 0.5mg Q3H PRN agitation Prophylaxis: Protonix 40mg IVP daily Zofran 4mg IVP Q6H PRN Nausea Tylenol 325mg NC Q4H PRN PT/OT eval and treat when stable Patient not eating well started on clinamex IV (PPN) Case discussed with Dr. Granger All management as per Dr. Granger
--- NOTE | 2017-04-08 08:31 | CP.PCM.PN ---
Subjective - Date & Time of Evaluation Date of Evaluation: 04/08/17 Time of Evaluation: 08:28 - Subjective Subjective: Gen Sx: Dr Mendez Pt S&E. CANDICE. Pt was placed on soft diet yesterday. Tolerating. No N/V. Continues to have BMs. No abdominal pain. Tachycardia seems only to present itself during times of agitation. Pt was removing her IV lines during examination. Objective - Vital Signs/Intake and Output Vital Signs (last 24 hours): Temp Pulse Resp BP Pulse Ox 99.0 F 140 H 20 121/70 96 04/07/17 16:00 04/08/17 01:20 04/07/17 16:00 04/07/17 16:00 04/07/17 16:00 Intake and Output: 04/08/17 04/08/17 06:59 18:59 Intake Total 390 Balance 390 - Medications Medications: Current Medications Acetaminophen (Tylenol 325 Mg Supp) 325 mg SC Q4 PRN PRN Reason: Fever >100.4 F Last Admin: 03/30/17 08:15 Dose: 325 mg Haloperidol Lactate (Haldol) 1 mg IVP BID PRN PRN Reason: Agitation Last Admin: 04/07/17 10:51 Dose: 1 mg Metronidazole (Flagyl) 500 mg in 100 mls @ 100 mls/hr IVPB Q8 AGUSTIN Last Admin: 04/08/17 05:20 Dose: 100 mls/hr Piperacillin Sod/Tazobactam Sod (Zosyn 3.375 Gm Iv Premix) 3.375 gm in 50 mls @ 100 mls/hr IVPB Q8H [facility] Last Admin: 04/08/17 01:50 Dose: 100 mls/hr Lorazepam (Ativan) 0.5 mg IVP Q3H PRN PRN Reason: Anxiety Last Admin: 04/07/17 18:22 Dose: 0.5 mg Metoclopramide HCl (Reglan) 10 mg IVP Q12 AGUSTIN Last Admin: 04/07/17 21:59 Dose: 10 mg Morphine Sulfate (Morphine) 2 mg IVP Q4 PRN PRN Reason: Pain, moderate (4-7) Last Admin: 04/06/17 13:47 Dose: 2 mg Morphine Sulfate (Morphine) 4 mg IVP Q4 PRN PRN Reason: Pain, severe (8-10) Last Admin: 04/07/17 19:32 Dose: 4 mg Ondansetron HCl (Zofran Inj) 4 mg IVP Q6H PRN PRN Reason: Nausea/Vomiting Pantoprazole Sodium (Protonix Inj) 40 mg IVP DAILY [facility] Last Admin: 04/07/17 09:32 Dose: 40 mg - Labs Labs: 04/06/17 06:52 04/06/17 06:52 PT 14.3 SECONDS (9.7-12.2) H 04/04/17 06:22 INR 1.3 04/04/17 06:22 APTT 30 SECONDS (21-34) 03/29/17 09:23 - Constitutional Appears: Non-toxic, No Acute Distress - Eye Exam Eye Exam: Normal appearance - ENT Exam ENT Exam: Mucous Membranes Moist - Respiratory Exam Respiratory Exam: absent: Accessory Muscle Use, Respiratory Distress - Cardiovascular Exam Cardiovascular Exam: REGULAR RHYTHM. absent: Tachycardia - GI/Abdominal Exam GI & Abdominal Exam: Soft. absent: Distended, Firm, Guarding, Tenderness - Neurological Exam Neurological Exam: Alert - Psychiatric Exam Psychiatric exam: Normal Affect - Skin Skin Exam: Normal Color Assessment and Plan - Assessment and Plan (Free Text) Assessment: 36F with gastroparesis; abdominal pain resolving Plan: pt tolerating diet having BMs no abdominal pain tachycardia appears related to agitation no evidence of source of leukocytosis d/w Dr Andrea Camacho, PGY3
[2017-04-08 08:34] LABS: BASO # 0.1 K/uL (0.0-0.2); BASO % 0.2 % (0.0-2.0); LYMPH # 0.8 K/uL (1.0-4.3); LYMPH % 2.3 % (20.0-40.0); MEAN CORPUSCULAR HEMOGLOBIN 27.6 pg (27.0-31.0); MEAN CORPUSCULAR HGB CONC 33.3 g/dL (33.0-37.0); MEAN PLATELET VOLUME 8.1 fL (7.2-11.7); MONO # 2.9 K/uL (0.0-0.8); NEUT # 32.2 K/uL (1.8-7.0); NEUT % 89.5 % (50.0-75.0); RBC 3.62 Mil/uL (3.80-5.20); RED CELL DISTRIBUTION WIDTH 13.4 % (11.5-14.5)
[2017-04-08 08:35] LABS: MEAN CELL VOLUME 82.9 fL (81.0-99.0); PLATELET COUNT 707 K/uL (130-400); WHITE BLOOD COUNT 36.1 K/uL (4.8-10.8)
[2017-04-08 08:47] LABS: ALB/GLOB RATIO 0.8 (1.0-2.1); ALBUMIN 2.7 g/dL (3.5-5.0); CALCIUM 6.9 mg/dl (8.6-10.4)
[2017-04-08 08:48] LABS: ALB/GLOB RATIO 0.9 (1.0-2.1); ALBUMIN 3.3 g/dL (3.5-5.0); BILIRUBIN,DIRECT 0.4 mg/dL (0.0-0.4)
--- NOTE | 2017-04-08 08:57 | CON ---
DATE: REASON FOR THE CONSULTATION: Change in mental status. CHIEF COMPLAINT: The patient was admitted with severe abdominal pain, possible pancreatitis. During the hospital course, the patient was seemed to be confused and change in mental status. From neurological point of view, I was called in to evaluate her for further management. HISTORY OF PRESENT ILLNESS: Ms. Alondra Rivera has possible cerebral palsy with nonverbal, presenting with severe abdominal pain and nausea, vomiting. There is no clear history of fall or head injuries or any involuntary movements being documented as well as from the history gathered from the nurse. The patient carries a history of longstanding schizophrenia and depression. No clear history of seizure disorder. PERSONAL HISTORY: No history of smoking or alcohol use. PAST MEDICAL HISTORY: As stated above. REVIEW OF SYSTEMS: Twelve-point systems had been reviewed. From neuro, change in mental status. MEDICATIONS: Lorazepam, metronidazole, haloperidol, morphine, pantoprazole, metoclopramide, acetaminophen, ondansetron, piperacillin. PHYSICAL EXAMINATION: VITAL SIGNS: Blood pressure 121/70, mean arterial pressure of 87, respiratory rate 16, temperature afebrile. NECK: Supple. Carotid: No bruits. HEART: Sounds regular. NEUROLOGICAL: The patient is nonverbal. Good visual contact. Hearing seems to be somewhat intact. She could be able to copy the sign. She could move her arms against the gravity. She could not be able to move her legs against gravity. Tone is increased in both the lower extremities. Extraocular movements intact. However, somewhat decreased in all end gaze. No facial sensory deficit. No facial asymmetry. Motor examination: As stated above, she moves upper extremities and lower extremities. Tone is increased in her lower extremities. Deep tendon reflexes absent. Plantars are mute on both sides. Sensory examination: Precision to pain is somewhat limited in all 4 extremities. Coordination and gait deferred at this time. The patient does have some tremulous movement in both upper extremities. WORKUP: WBC 23.2, hemoglobin 10.4, hematocrit 32.2, platelet 557, D-dimer is 4184. Sodium 131, potassium 4.4, chloride 101, bicarbonate 25, BUN 2, creatinine 0.4, GFR more than 60, magnesium 1.9, calcium 7.8. CT of the abdomen shows massive gastric distention and fluid distention also noted in the distal esophagus. There is complete compression and flattening of the portal vein and IVC also noted. Chest CT showed left pleural effusion. CONCLUSION: Ms. Alondra Rivera has been presenting with bilateral cerebral dysfunction and mute, weakness, all related to preexisting condition. From neurological point of view, hard to localize her issues at present. The current examination also showed paraparesis of the lower extremities, which is new or old. It seems to be from neurological examination seems to be old. RECOMMENDATIONS: 1. MRI of the brain is recommended to rule out any possible intracranial pathology that could explain her old as well as new manifestations. 2. EEG to rule out nonconvulsive seizures. 3. Correct the dehydration and electrolytes. 4. The patient will be followed closely with you. Danny Bedoya MD
[2017-04-08 08:59] LABS: PROLACTIN 129.9 ng/mL (3.0-18.9)
[2017-04-08 09:24] LABS: BANDS 4 % (0-2); LYMPHOCYTE 2 % (20-40); MONOCYTE 10 % (0-10); NEUTROPHIL 84 % (50-75); PLATELET ESTIMATE INCREASED (NORMAL); TOTAL CELLS COUNTED 100
[2017-04-08 09:25] LABS: ANISOCYTOSIS SLIGHT; BURR CELLS SLIGHT; HYPOCHROMIC SLIGHT; LARGE PLATELETS PRESENT; MICROCYTOSIS SLIGHT; POIKILOCYTOSIS SLIGHT
[2017-04-08 09:26] LABS: TEARDROP CELLS SLIGHT
[2017-04-08] MEDS ORDERED: Potassium Chloride 20 mEq ER Tab PO STA (11:53)
[2017-04-08] MEDS ORDERED: Sodium Chloride 0.9% 1,000 ML IV SCH (12:00)
--- NOTE | 2017-04-08 12:05 | CT ---
PROCEDURE: CT HEAD WITHOUT CONTRAST. HISTORY: schizophrenia history COMPARISON: None available. TECHNIQUE: Axial computed tomography images were obtained through the head/brain without intravenous contrast. Radiation dose: Total exam DLP = 1970.27 mGy-cm. This CT exam was performed using one or more of the following dose reduction techniques: Automated exposure control, adjustment of the mA and/or kV according to patient size, and/or use of iterative reconstruction technique. FINDINGS: HEMORRHAGE: No intracranial hemorrhage. BRAIN: Globular calcification, extra-axial, anterior to the left frontal lobe. Possible calcified meningioma. No other intracranial mass. No atrophy or chronic microvascular ischemic changes. VENTRICLES: Unremarkable. No hydrocephalus. CALVARIUM: Unremarkable. PARANASAL SINUSES: Unremarkable as visualized. No significant inflammatory changes. MASTOID AIR CELLS: Unremarkable as visualized. No inflammatory changes. OTHER FINDINGS: None. IMPRESSION: Extra-axial globular calcification left frontal, possible calcified meningioma. Evaluate with gadolinium enhanced magnetic resonance imaging. Otherwise unremarkable examination.
--- NOTE | 2017-04-08 12:20 | PCM.SEPTIC ---
Sepsis Progress Note - Reassessment Type Date of Evaluation: 04/08/17 Time of Evaluation: 12:19 Reassessment Type: Non-invasive reassessment - Non Invasive Reassessment Were the most recent vital sign reviewed: Yes Vital Sign (Latest): Temp Pulse Resp BP Pulse Ox 97.3 F L 137 H 20 124/86 95 04/08/17 07:15 04/08/17 07:15 04/08/17 07:15 04/08/17 07:15 04/08/17 07:15 Cardiovascular: Yes: Tachycardia Respiratory: Yes: Decreased Breath Sounds. No: Accessory Muscle Use, Rhonchi, Wheezing, Respiratory Distress Capillary Refill: Normal (Less than 2 sec) Pulses: Normal Radial, Normal Dorsalis Pedis, Normal Posterior Tibialis Skin: Normal Color, Warm, Diaphoretic
[2017-04-08] MEDS ORDERED: Sodium Chloride 0.9% 1,000 ML IV ONE ×2 (12:24→13:24)
--- NOTE | 2017-04-08 12:31 | CT ---
PROCEDURE: CT Abdomen and Pelvis without intravenous contrast HISTORY: pancreatitis COMPARISON: 04/02/2017 TECHNIQUE: Without contrast.. Contrast Dose: 0 Radiation dose: Total exam DLP = 979.69 mGy-cm. This CT exam was performed using one or more of the following dose reduction techniques: Automated exposure control, adjustment of the mA and/or kV according to patient size, and/or use of iterative reconstruction technique. FINDINGS: LOWER THORAX: Small left pleural effusion with left lower lobe compressive atelectasis. Subsegmental atelectasis in right lower lobe. LIVER: Unremarkable. No gross lesion or ductal dilatation. GALLBLADDER AND BILE DUCTS: Gallbladder distended. No evident mural thickening. PANCREAS: Pancreas mildly atrophic. Peripancreatic fluid seen on prior examination has resolved. No mass identified. SPLEEN: Unremarkable. ADRENALS: Unremarkable. No mass. KIDNEYS AND URETERS: Unremarkable. No hydronephrosis. No solid mass. VASCULATURE: Unremarkable. No aortic aneurysm. BOWEL: Markedly distended stomach. There are bubbles of gas seen about the periphery of the stomach raising suspicion of emphysematous gastritis. They are not definitely intramural on this examination but the possibility must be considered and follow-up is advised with computed tomography. There is marked mural thickening of a segment of proximal jejunum consistent with nonspecific enteritis. It is conceivable but this is secondary to the pancreatic exudate. No bowel obstruction. No other abnormal bowel loops are appreciated. APPENDIX: Not identified. PERITONEUM: There is ascites. Fluid is seen in the pelvis. There is also loculated fluid collection seen superior to the spleen and posterior to the stomach. There is edema of the greater omentum, consistent with acute pancreatitis. There is no mesenteric fluid collection. LYMPH NODES: Unremarkable. No enlarged lymph nodes. BLADDER: Nondistended REPRODUCTIVE: Unremarkable uterus BONES: No acute fracture. OTHER FINDINGS: None. IMPRESSION: Resolving acute pancreatitis. No residual peripancreatic fluid. There is edema of the greater omentum. There is question of emphysematous gastritis. Follow-up with computed tomography is advised. There is distention of the stomach of possibly due to gastric ileus. There is ascites as well as loculated fluid posterior to the gastric fundus and cephalad to the spleen. There is marked focal enteritis of the proximal jejunum with mural thickening. Small left pleural effusion with left lower lobe compressive atelectasis.
[2017-04-08 12:54] LABS: ABG ALLEN TEST POS; ARTERIAL BLOOD GAS HCO3 22.9 mmol/L (21-28); ARTERIAL BLOOD GAS O2 SAT 99.4 % (95-98); ARTERIAL BLOOD GAS PCO2 24 mm/Hg (35-45); ARTERIAL BLOOD GAS PO2 148 mm/Hg (80-100); ARTERIAL BLOOD GAS TCO2 19.4 mmol/L (22-28)
[2017-04-08] MEDS ORDERED: Vancomycin 1 gm/NS 200 ml 1 GM/200 ML BAG IVPB SCH (13:00)
[2017-04-08 13:04] LABS: INR 1.9; PROTHROMBIN TIME 21.6 SECONDS (9.7-12.2)
[2017-04-08 13:17] LABS: SQUAMOUS EPITHIAL 7 /hpf (0-5); URINE BACTERIA RARE (<OCC); URINE BILIRUBIN NEGATIVE (NEGATIVE); URINE BLOOD 1+ (NEGATIVE); URINE CLARITY Hazy (Clear); URINE COLOR Amber (YELLOW); URINE GLUCOSE (UA) NORMAL (Normal); URINE LEUKOCYTE ESTERASE 1+ Leu/uL (Negative); URINE PROTEIN 2+ mg/dL (NEGATIVE); URINE UROBILINOGEN NORMAL mg/dL (0.2-1.0)
--- NOTE | 2017-04-08 14:24 | CP.PCM.CON ---
History of Present Illness - History of Present Illness History of Present Illness: HPI: Patient is a 36F with a PMH of schizophrenia comes to ED with increasing abdominal distension as noted by the mother. Patient and patients mother went to a buffet yesterday. After this both the mother and the patient had some diarrhea. The patient continued to have diarrhea. She later became dizzy and was unable to stand without assistance. Patient is nonverbal at baseline but usually ambulates independently. Nothing has made her symptoms better or worse. She is unable to describe the quality of her pain. She is unable to describe any radiation or quantify severity. The diarrhea has continued and her belly has become progressively larger. Denies any Vomiting. A CT was ordered in ED that showed massive gastric distension. NGT placed. Fem TLC placed. ICU consulted. ROS: Unattainable PMH: Schizophrenia, Mental disability PSH: None FH: Unremarkable Meds: Lexapro, Seroquel All: None Hospital course remarkable for treatment of pancreatitis; possible sepsis course Now pt more oliguric and creatinine increased to 1.4 On IV fluids Review of Systems - Review of Systems Systems not reviewed;Unavailable: Altered Mental Status, Uncooperative Past Patient History - Past Medical History & Family History Past Medical History?: Yes Pertinent Family History: Unknown - Past Social History Smoking Status: Never Smoked Chewing Tobacco Use: No Cigar Use: No Home Situation {Lives}: With Family - CARDIAC Hx Cardiac Disorders: No - PULMONARY Hx Respiratory Disorders: No - NEUROLOGICAL Other/Comment: NEURO / DEVELOPMENTAL PROBLEM - HEENT Hx HEENT Problems: No - RENAL Hx Chronic Kidney Disease: No - ENDOCRINE/METABOLIC Hx Endocrine Disorders: No - HEMATOLOGICAL/ONCOLOGICAL Hx Blood Disorders: No - INTEGUMENTARY Hx Dermatological Problems: No - MUSCULOSKELETAL/RHEUMATOLOGICAL Hx Musculoskeletal Disorders: No Hx Falls: No - GASTROINTESTINAL Hx Gastrointestinal Disorders: No - GENITOURINARY/GYNECOLOGICAL Hx Genitourinary Disorders: No - PSYCHIATRIC Hx Depression: Yes Hx Schizophrenia: Yes Hx Substance Use: No - SURGICAL HISTORY Hx Surgeries: No - ANESTHESIA Hx Anesthesia: No Meds Allergies/Adverse Reactions: Allergies Allergy/AdvReac Type Severity Reaction Status Date / Time No Known Allergies Allergy Unverified 03/27/17 21:28 - Medications Medications: Current Medications Acetaminophen (Tylenol 325 Mg Supp) 325 mg KS Q4 PRN PRN Reason: Fever >100.4 F Last Admin: 03/30/17 08:15 Dose: 325 mg Acetaminophen (Tylenol 650 Mg Supp) 650 mg KS Q6 [facility] Stop: 04/09/17 12:16 Last Admin: 04/08/17 12:38 Dose: 650 mg Ascorbic Acid (Vitamin C 500 Mg Tab) 500 mg PO DAILY [facility] Last Admin: 04/08/17 12:58 Dose: 500 mg Haloperidol Lactate (Haldol) 1 mg IVP BID PRN PRN Reason: Agitation Last Admin: 04/07/17 10:51 Dose: 1 mg Piperacillin Sod/Tazobactam Sod (Zosyn 3.375 Gm Iv Premix) 3.375 gm in 50 mls @ 100 mls/hr IVPB Q8H [facility] Last Admin: 04/08/17 11:28 Dose: Not Given Sodium Chloride (Sodium Chloride 0.9%) 1,000 mls @ 125 mls/hr IV .Q8H [facility] Last Admin: 04/08/17 12:05 Dose: 125 mls/hr Vancomycin/Sodium Chloride (Vancomycin 1 Gm/Ns 200 Ml) 1 gm in 200 mls @ 133.333 mls/hr IVPB Q12H [facility] Last Admin: 04/08/17 14:00 Dose: 133.333 mls/hr Sodium Chloride (Sodium Chloride 0.9%) 1,000 mls @ 1,000 mls/hr IV .Q1H [facility] Stop: 04/08/17 14:23 Last Admin: 04/08/17 13:33 Dose: 1,000 mls/hr Lorazepam (Ativan) 0.5 mg IVP Q3H PRN PRN Reason: Anxiety Last Admin: 04/07/17 18:22 Dose: 0.5 mg Metoclopramide HCl (Reglan) 10 mg IVP Q12 [facility] Last Admin: 04/08/17 11:00 Dose: Not Given Morphine Sulfate (Morphine) 2 mg IVP Q4 PRN PRN Reason: Pain, moderate (4-7) Last Admin: 04/06/17 13:47 Dose: 2 mg Morphine Sulfate (Morphine) 4 mg IVP Q4 PRN PRN Reason: Pain, severe (8-10) Last Admin: 04/07/17 19:32 Dose: 4 mg Ondansetron HCl (Zofran Inj) 4 mg IVP Q6H PRN PRN Reason: Nausea/Vomiting Pantoprazole Sodium (Protonix Inj) 40 mg IVP DAILY [facility] Last Admin: 04/08/17 11:00 Dose: Not Given Saccharomyces Boulardii (Florastor) 250 mg PO BID [facility] Thiamine HCl (Vitamin B1 Tab) 100 mg PO DAILY [facility] Last Admin: 04/08/17 12:57 Dose: 100 mg Physical Exam - Constitutional Appears: In Acute Distress, Agitated, Chronically Ill - Head Exam Head Exam: ATRAUMATIC, NORMAL INSPECTION - Eye Exam Eye Exam: EOMI, Normal appearance - Neck Exam Neck exam: Positive for: Normal Inspection. Negative for: Tenderness - Respiratory Exam Respiratory Exam: Decreased Breath Sounds, NORMAL BREATHING PATTERN - Cardiovascular Exam Cardiovascular Exam: Tachycardia, +S1 - GI/Abdominal Exam GI & Abdominal Exam: Soft, Tenderness - Extremities Exam Extremities exam: Positive for: normal inspection. Negative for: tenderness - Neurological Exam Neurological exam: Altered, CN II-XII Intact - Skin Skin Exam: Dry, Warm Results - Vital Signs Recent Vital Signs: Last Vital Signs Temp 97.4 F L 04/08/17 13:38 Pulse 137 H 04/08/17 07:15 Resp 20 04/08/17 07:15 BP 124/86 04/08/17 07:15 Pulse Ox 95 04/08/17 07:15 - Labs Result Diagrams: 04/08/17 08:19 04/08/17 08:19 Labs: Laboratory Results - last 24 hr 04/07/17 04/08/17 04/08/17 20:55 06:08 08:19 WBC 36.1 H D RBC 3.62 L Hgb 10.0 L Hct 30.0 L MCV 82.9 D MCH 27.6 MCHC 33.3 RDW 13.4 Plt Count 707 H D MPV 8.1 Neut % (Auto) 89.5 H Lymph % (Auto) 2.3 L [place] % (Auto) 8.0 Eos % (Auto) 0.0 Baso % (Auto) 0.2 Neut # 32.2 H Lymph # 0.8 L [place] # 2.9 H Eos # 0.0 Baso # 0.1 Neutrophils % (Manual) 84 H Band Neutrophils % 4 H Lymphocytes % (Manual) 2 L Monocytes % (Manual) 10 Platelet Estimate Increased H Large Platelets Present Hypochromasia (manual) Slight Poikilocytosis (manual Slight Anisocytosis (manual) Slight Microcytosis (manual) Slight Tear Drop Cells Slight [place] Cells Slight PT INR APTT Puncture Site pCO2 pO2 HCO3 ABG pH ABG Total CO2 ABG O2 Saturation ABG Base Excess Daniel Test ABG Potassium A-a O2 Difference Respiratory Index Glucose Lactate Liter Flow FiO2 Sodium Potassium Chloride Carbon Dioxide Anion Gap BUN Creatinine Est GFR ( Amer) Est GFR (Non-Af Amer) POC Glucose (mg/dL) 166 H 145 H Random Glucose Calcium Phosphorus Magnesium Total Bilirubin Direct Bilirubin AST ALT Alkaline Phosphatase Ammonia Lactate Dehydrogenase Total Protein Albumin Globulin Albumin/Globulin Ratio Prolactin Arterial Blood Potassium Urine Color Urine Clarity Urine pH Ur Specific [place] Urine Protein Urine Glucose (UA) Urine Ketones Urine Blood Urine Nitrate Urine Bilirubin Urine Urobilinogen Ur Leukocyte Esterase Urine WBC (Auto) Urine RBC (Auto) Ur Squamous Epith Cells Urine Bacteria Ur L.pneumophila Ag 04/08/17 04/08/17 04/08/17 08:19 08:19 08:19 WBC RBC Hgb Hct MCV MCH MCHC RDW Plt Count MPV Neut % (Auto) Lymph % (Auto) [place] % (Auto) Eos % (Auto) Baso % (Auto) Neut # Lymph # [place] # Eos # Baso # Neutrophils % (Manual) Band Neutrophils % Lymphocytes % (Manual) Monocytes % (Manual) Platelet Estimate Large Platelets Hypochromasia (manual) Poikilocytosis (manual Anisocytosis (manual) Microcytosis (manual) Tear Drop Cells [place] Cells PT INR APTT Puncture Site pCO2 pO2 HCO3 ABG pH ABG Total CO2 ABG O2 Saturation ABG Base Excess Daniel Test ABG Potassium A-a O2 Difference Respiratory Index Glucose Lactate Liter Flow FiO2 Sodium 134 Potassium 3.0 L Chloride 102 Carbon Dioxide 21 L Anion Gap 14 BUN 8 Creatinine 1.4 H Est GFR ( Amer) 52 Est GFR (Non-Af Amer) 43 POC Glucose (mg/dL) Random Glucose 105 Calcium 6.9 L Phosphorus Magnesium Total Bilirubin 0.5 0.6 Direct Bilirubin 0.4 AST 30 26 ALT 24 27 Alkaline Phosphatase 90 116 Ammonia < 9 L Lactate Dehydrogenase Total Protein 5.9 L 6.8 Albumin 2.7 L 3.3 L D Globulin 3.2 3.5 Albumin/Globulin Ratio 0.8 L 0.9 L Prolactin 129.9 H Arterial Blood Potassium Urine Color Urine Clarity Urine pH Ur Specific [place] Urine Protein Urine Glucose (UA) Urine Ketones Urine Blood Urine Nitrate Urine Bilirubin Urine Urobilinogen Ur Leukocyte Esterase Urine WBC (Auto) Urine RBC (Auto) Ur Squamous Epith Cells Urine Bacteria Ur L.pneumophila Ag 04/08/17 04/08/17 04/08/17 12:09 12:45 12:45 WBC RBC Hgb Hct MCV MCH MCHC RDW Plt Count MPV Neut % (Auto) Lymph % (Auto) [place] % (Auto) Eos % (Auto) Baso % (Auto) Neut # Lymph # [place] # Eos # Baso # Neutrophils % (Manual) Band Neutrophils % Lymphocytes % (Manual) Monocytes % (Manual) Platelet Estimate Large Platelets Hypochromasia (manual) Poikilocytosis (manual Anisocytosis (manual) Microcytosis (manual) Tear Drop Cells [place] Cells PT 21.6 H INR 1.9 APTT 30 Puncture Site pCO2 pO2 HCO3 ABG pH ABG Total CO2 ABG O2 Saturation ABG Base Excess Daniel Test ABG Potassium A-a O2 Difference Respiratory Index Glucose Lactate Liter Flow FiO2 Sodium Potassium Chloride Carbon Dioxide Anion Gap BUN Creatinine Est GFR ( Amer) Est GFR (Non-Af Amer) POC Glucose (mg/dL) Random Glucose Calcium Phosphorus 4.8 H Magnesium 1.6 Total Bilirubin Direct Bilirubin AST ALT Alkaline Phosphatase Ammonia Lactate Dehydrogenase 648 H Total Protein Albumin Globulin Albumin/Globulin Ratio Prolactin Arterial Blood Potassium Urine Color Urine Clarity Urine pH Ur Specific [place] Urine Protein Urine Glucose (UA) Urine Ketones Urine Blood Urine Nitrate Urine Bilirubin Urine Urobilinogen Ur Leukocyte Esterase Urine WBC (Auto) Urine RBC (Auto) Ur Squamous Epith Cells Urine Bacteria Ur L.pneumophila Ag Negative 04/08/17 04/08/17 12:51 13:06 WBC RBC Hgb Hct MCV MCH MCHC RDW Plt Count MPV Neut % (Auto) Lymph % (Auto) [place] % (Auto) Eos % (Auto) Baso % (Auto) Neut # Lymph # [place] # Eos # Baso # Neutrophils % (Manual) Band Neutrophils % Lymphocytes % (Manual) Monocytes % (Manual) Platelet Estimate Large Platelets Hypochromasia (manual) Poikilocytosis (manual Anisocytosis (manual) Microcytosis (manual) Tear Drop Cells [place] Cells PT INR APTT Puncture Site Rra pCO2 24 L pO2 148 H HCO3 22.9 ABG pH 7.50 H ABG Total CO2 19.4 L ABG O2 Saturation 99.4 H ABG Base Excess -2.7 L Daniel Test Pos ABG Potassium 3.2 L A-a O2 Difference 22.0 Respiratory Index 0.1 Glucose 104 Lactate 1.0 Liter Flow 2.0 FiO2 28.0 Sodium 140.0 Potassium Chloride 113.0 H Carbon Dioxide Anion Gap BUN Creatinine Est GFR ( Amer) Est GFR (Non-Af Amer) POC Glucose (mg/dL) Random Glucose Calcium Phosphorus Magnesium Total Bilirubin Direct Bilirubin AST ALT Alkaline Phosphatase Ammonia Lactate Dehydrogenase Total Protein Albumin Globulin Albumin/Globulin Ratio Prolactin Arterial Blood Potassium 3.2 L Urine Color [place] Urine Clarity Hazy Urine pH 5.0 Ur Specific [place] 1.030 Urine Protein 2+ H Urine Glucose (UA) Normal Urine Ketones Trace Urine Blood 1+ H Urine Nitrate Negative Urine Bilirubin Negative Urine Urobilinogen Normal Ur Leukocyte Esterase 1+ H Urine WBC (Auto) 23 H Urine RBC (Auto) 5 H Ur Squamous Epith Cells 7 H Urine Bacteria Rare Ur L.pneumophila Ag Assessment & Plan - Assessment and Plan (Free Text) Assessment: JIMBO Acute pancreatitis Volume depletion Sepsis syndrome Intra-abdominal fluid collection- possible abscess Plan: Serial chemistries IV ABs Check urine lytes, ua Agree with fluid re-hydration Replete K
--- NOTE | 2017-04-08 17:02 | CP.CCUPN ---
CCU Subjective - Physician Review Subjective (Free Text): Critical Care Progress note for Dr. Hernandez Patient seen and examined at bedside. No acute events overnight per nursing. Code sepsis was called. Patient was hypotensive, tachycardic, and had a leukocytosis. Patient ate food yesterday and today and tolerated diet. Patient continues to yell when needing to have a bowel movement. Patient brought to ICU for closer management. Critical Care Time Spent (in minutes): 35 CCU Objective - Vital Signs / Intake & Output Vital Signs (Last 4 hours): Vital Signs Temp 04/08/17 13:38 97.4 F L Intake and Output (Last 8hrs): Intake & Output 04/08/17 04/08/17 04/08/17 06:59 14:59 22:59 Intake Total 390 2100 Output Total 50 Balance 390 0 Intake: Intake, IV Amount 150 2000 Right Hand 150 2000 Oral 240 100 Output: Urine 50 Urethral (Tovar) 50 Other: # Voids Urine, Voided 2 # Bowel Movements 4 0 - Physical Exam Head: Positive for: Atraumatic, Normocephalic. Negative for: Tenderness Pupils: Positive for: PERRL Extroacular Muscles: Positive for: EOMI Mouth: Positive for: Moist Mucous Membranes. Negative for: Dry, Drooling Nose (External): Positive for: Other (NGT in place) Nose (Internal): Positive for: Normal Inspection, Moist Neck: Positive for: Normal Range of Motion. Negative for: JVD, Lymphadenopathy Respiratory/Chest: Positive for: Clear to Auscultation. Negative for: Respiratory Distress, Accessory Muscle Use Cardiovascular: Positive for: Regular Rate and Rhythm, Normal S1, S2 Abdomen: Positive for: Normal Bowel Sounds. Negative for: Distention, Guarding Upper Extremity: Positive for: Normal Inspection, Normal ROM, Capillary Refill < 2s. Negative for: Edema Lower Extremity: Positive for: Normal Inspection. Negative for: Edema Neurological: Positive for: CN II-XII Intact Skin: Positive for: Warm, Pale Psychiatric: Positive for: Alert - Medications Active Medications: Active Medications Generic Name Dose Route Start Last Admin Trade Name Freq PRN Reason Stop Dose Admin Acetaminophen 325 mg 03/29/17 07:57 03/30/17 08:15 Tylenol 325 Mg Supp RI 325 mg Q4 PRN Administration Fever >100.4 F Acetaminophen 650 mg 04/08/17 12:15 12/29/17 12:38 Tylenol 650 Mg Supp RI 04/09/17 12:16 650 mg Q6 AGUSTIN Administration Ascorbic Acid 500 mg 04/08/17 12:30 04/08/17 12:58 Vitamin C 500 Mg Tab PO 500 mg DAILY AGUSTIN Administration Haloperidol Lactate 1 mg 03/29/17 18:47 04/08/17 15:22 Haldol IVP 1 mg BID PRN Administration Agitation Piperacillin Sod/Tazobactam Sod 3.375 gm in 50 mls @ 100 mls/hr 03/28/17 02: 30 04/08/17 11:28 Zosyn 3.375 Gm Iv Premix IVPB Not Given Q8H [facility] Sodium Chloride 1,000 mls @ 125 mls/hr 04/08/17 12:00 04/08/17 12:05 Sodium Chloride 0.9% IV 125 mls/hr .Q8H AGUSTIN Administration Vancomycin/Sodium Chloride 1 gm in 200 mls @ 133.333 mls/hr 04/08/17 13:00 14:00 Vancomycin 1 Gm/Ns 200 Ml IVPB 133.333 mls/hr Q12H [facility] Administration Sodium Chloride 40 meq/ 1,052.1552 mls @ 42 mls/hr 04/08/17 18:00 Potassium Chloride 30 meq/ IV 04/09/17 17:59 Magnesium Sulfate 6 meq/ .Q24H [facility] Calcium Gluconate 4.5 meq/ Potassium Phosphate 15 mmole/ Chromium/Copper/Manganese/Zinc 1 ml/ Multivitamins/Vitamin C 10 ml/ Amino Acids Fat Emulsion Intravenous 500 mls @ 50 mls/hr 04/11/17 18:00 Intralipid 20% IV MWF@1800 [facility] Diltiazem HCl 125 mg/ Sodium 125 mls @ 5 mls/hr 04/08/17 16:45 Chloride IV .Q24H [facility] Protocol 5 MG/HR Lorazepam 0.5 mg 04/01/17 16:08 04/07/17 18:22 Ativan IVP 0.5 mg Q3H PRN Administration Anxiety Metoclopramide HCl 10 mg 04/03/17 22:00 04/08/17 11:00 Reglan IVP Not Given Q12 [facility] Morphine Sulfate 2 mg 04/02/17 21:29 04/06/17 13:47 Morphine IVP 2 mg Q4 PRN Administration Pain, moderate (4-7) Morphine Sulfate 4 mg 04/02/17 21:45 04/07/17 19:32 Morphine IVP 4 mg Q4 PRN Administration Pain, severe (8-10) Ondansetron HCl 4 mg 03/27/17 23:45 Zofran Inj IVP Q6H PRN Nausea/Vomiting Pantoprazole Sodium 40 mg 04/02/17 10:00 04/08/17 11:00 Protonix Inj IVP Not Given DAILY AGUSTIN Saccharomyces Boulardii 250 mg 04/08/17 18:00 Florastor PO BID AGUSTIN Thiamine HCl 100 mg 04/08/17 12:30 04/08/17 12:57 Vitamin B1 Tab PO 100 mg DAILY AGUSTIN Administration - Patient Studies Lab Studies: Microbiology Studies 04/06/17 12:36 MRSA Culture - Final Naris MRSA NOT DETECTED Lab Studies 04/08/17 04/08/17 04/08/17 Range/Units 16:41 15:32 15:00 WBC (4.8-10.8) K/uL RBC (3.80-5.20) Mil/uL Hgb (11.0-16.0) g/dL Hct (34.0-47.0) % MCV (81.0-99.0) fL MCH (27.0-31.0) pg MCHC (33.0-37.0) g/dL RDW (11.5-14.5) % Plt Count (130-400) K/uL MPV (7.2-11.7) fL Neut % (Auto) (50.0-75.0) % Lymph % (Auto) (20.0-40.0) % [place] % (Auto) (0.0-10.0) % Eos % (Auto) (0.0-4.0) % Baso % (Auto) (0.0-2.0) % Neut # (1.8-7.0) K/uL Lymph # (1.0-4.3) K/uL [place] # (0.0-0.8) K/uL Eos # (0.0-0.7) K/uL Baso # (0.0-0.2) K/uL Neutrophils % (Manual) (50-75) % Band Neutrophils % (0-2) % Lymphocytes % (Manual) (20-40) % Monocytes % (Manual) (0-10) % Platelet Estimate (NORMAL) Large Platelets Hypochromasia (manual) Poikilocytosis (manual Anisocytosis (manual) Microcytosis (manual) Tear Drop Cells Ofelia Cells PT (9.7-12.2) SECONDS INR APTT (21-34) SECONDS Puncture Site pCO2 (35-45) mm/Hg pO2 (80-100) mm/Hg HCO3 (21-28) mmol/L ABG pH (7.35-7.45) ABG Total CO2 (22-28) mmol/L ABG O2 Saturation (95-98) % ABG Base Excess (-2.0-3.0) mmol/L Daniel Test ABG Potassium (3.6-5.2) mmol/L A-a O2 Difference mm/Hg Respiratory Index Glucose (65-105) mg/dl Lactate (0.7-2.1) mmol/L Liter Flow FiO2 % Sodium (132-148) mmol/L Potassium (3.6-5.2) mmol/L Chloride (98-107) mmol/L Carbon Dioxide (22-30) mmol/L Anion Gap (10-20) BUN (7-17) mg/dL Creatinine (0.7-1.2) mg/dL Est GFR ( Amer) Est GFR (Non-Af Amer) POC Glucose (mg/dL) 136 H (65-110) mg/dL Random Glucose (65-105) mg/dL Calcium (8.6-10.4) mg/dl Phosphorus (2.5-4.5) mg/dL Magnesium (1.6-2.3) mg/dL Total Bilirubin (0.2-1.3) mg/dL Direct Bilirubin (0.0-0.4) mg/dL AST (14-36) U/L ALT (9-52) U/L Alkaline Phosphatase (38-126) U/L Ammonia (9-33) umol/L Lactate Dehydrogenase (313-618) U/L Total Protein (6.3-8.3) g/dL Albumin (3.5-5.0) g/dL Globulin (2.2-3.9) gm/dL Albumin/Globulin Ratio (1.0-2.1) Procalcitonin (0.19-0.49) NG/ML Prolactin (3.0-18.9) ng/mL Arterial Blood Potassium (3.6-5.2) mmol/L Urine Color (YELLOW) Urine Clarity (Clear) Urine pH (5.0-8.0) Ur Specific [place] (1.003-1.030) Urine Protein (NEGATIVE) mg/dL Urine Glucose (UA) (Normal) mg/dL Urine Ketones (NEGATIVE) mg/dL Urine Blood (NEGATIVE) Urine Nitrate (NEGATIVE) Urine Bilirubin (NEGATIVE) Urine Urobilinogen (0.2-1.0) mg/dL Ur Leukocyte Esterase (Negative) [place]/uL Urine WBC (Auto) (0-5) /hpf Urine RBC (Auto) (0-3) /hpf Ur Squamous Epith Cells (0-5) /hpf Urine Bacteria (<OCC) U Random Total Protein Cancelled 41.0 H (0.0-12.0) mg/dL Ur Random Sodium 7 mmol/L Ur L.pneumophila Ag (NEGATIVE) 04/08/17 04/08/17 04/08/17 Range/Units 13:06 12:51 12:45 WBC (4.8-10.8) K/uL RBC (3.80-5.20) Mil/uL Hgb (11.0-16.0) g/dL Hct (34.0-47.0) % MCV (81.0-99.0) fL MCH (27.0-31.0) pg MCHC (33.0-37.0) g/dL RDW (11.5-14.5) % Plt Count (130-400) K/uL MPV (7.2-11.7) fL Neut % (Auto) (50.0-75.0) % Lymph % (Auto) (20.0-40.0) % [place] % (Auto) (0.0-10.0) % Eos % (Auto) (0.0-4.0) % Baso % (Auto) (0.0-2.0) % Neut # (1.8-7.0) K/uL Lymph # (1.0-4.3) K/uL [place] # (0.0-0.8) K/uL Eos # (0.0-0.7) K/uL Baso # (0.0-0.2) K/uL Neutrophils % (Manual) (50-75) % Band Neutrophils % (0-2) % Lymphocytes % (Manual) (20-40) % Monocytes % (Manual) (0-10) % Platelet Estimate (NORMAL) Large Platelets Hypochromasia (manual) Poikilocytosis (manual Anisocytosis (manual) Microcytosis (manual) Tear Drop Cells Ofelia Cells PT 21.6 H (9.7-12.2) SECONDS INR 1.9 APTT 30 (21-34) SECONDS Puncture Site Rra pCO2 24 L (35-45) mm/Hg pO2 148 H (80-100) mm/Hg HCO3 22.9 (21-28) mmol/L ABG pH 7.50 H (7.35-7.45) ABG Total CO2 19.4 L (22-28) mmol/L ABG O2 Saturation 99.4 H (95-98) % ABG Base Excess -2.7 L (-2.0-3.0) mmol/L Daniel Test Pos ABG Potassium 3.2 L (3.6-5.2) mmol/L A-a O2 Difference 22.0 mm/Hg Respiratory Index 0.1 Glucose 104 (65-105) mg/dl Lactate 1.0 (0.7-2.1) mmol/L Liter Flow 2.0 FiO2 28.0 % Sodium 140.0 (132-148) mmol/L Potassium (3.6-5.2) mmol/L Chloride 113.0 H (98-107) mmol/L Carbon Dioxide (22-30) mmol/L Anion Gap (10-20) BUN (7-17) mg/dL Creatinine (0.7-1.2) mg/dL Est GFR ( Amer) Est GFR (Non-Af Amer) POC Glucose (mg/dL) (65-110) mg/dL Random Glucose (65-105) mg/dL Calcium (8.6-10.4) mg/dl Phosphorus (2.5-4.5) mg/dL Magnesium (1.6-2.3) mg/dL Total Bilirubin (0.2-1.3) mg/dL Direct Bilirubin (0.0-0.4) mg/dL AST (14-36) U/L ALT (9-52) U/L Alkaline Phosphatase (38-126) U/L Ammonia (9-33) umol/L Lactate Dehydrogenase (313-618) U/L Total Protein (6.3-8.3) g/dL Albumin (3.5-5.0) g/dL Globulin (2.2-3.9) gm/dL Albumin/Globulin Ratio (1.0-2.1) Procalcitonin (0.19-0.49) NG/ML Prolactin (3.0-18.9) ng/mL Arterial Blood Potassium 3.2 L (3.6-5.2) mmol/L Urine Color [place] (YELLOW) Urine Clarity Hazy (Clear) Urine pH 5.0 (5.0-8.0) Ur Specific [place] 1.030 (1.003-1.030) Urine Protein 2+ H (NEGATIVE) mg/dL Urine Glucose (UA) Normal (Normal) mg/dL Urine Ketones Trace (NEGATIVE) mg/dL Urine Blood 1+ H (NEGATIVE) Urine Nitrate Negative (NEGATIVE) Urine Bilirubin Negative (NEGATIVE) Urine Urobilinogen Normal (0.2-1.0) mg/dL Ur Leukocyte Esterase 1+ H (Negative) [place]/uL Urine WBC (Auto) 23 H (0-5) /hpf Urine RBC (Auto) 5 H (0-3) /hpf Ur Squamous Epith Cells 7 H (0-5) /hpf Urine Bacteria Rare (<OCC) U Random Total Protein (0.0-12.0) mg/dL Ur Random Sodium mmol/L Ur L.pneumophila Ag (NEGATIVE) 04/08/17 04/08/17 04/08/17 Range/Units 12:45 12:45 12:09 WBC (4.8-10.8) K/uL RBC (3.80-5.20) Mil/uL Hgb (11.0-16.0) g/dL Hct (34.0-47.0) % MCV (81.0-99.0) fL MCH (27.0-31.0) pg MCHC (33.0-37.0) g/dL RDW (11.5-14.5) % Plt Count (130-400) K/uL MPV (7.2-11.7) fL Neut % (Auto) (50.0-75.0) % Lymph % (Auto) (20.0-40.0) % [place] % (Auto) (0.0-10.0) % Eos % (Auto) (0.0-4.0) % Baso % (Auto) (0.0-2.0) % Neut # (1.8-7.0) K/uL Lymph # (1.0-4.3) K/uL [place] # (0.0-0.8) K/uL Eos # (0.0-0.7) K/uL Baso # (0.0-0.2) K/uL Neutrophils % (Manual) (50-75) % Band Neutrophils % (0-2) % Lymphocytes % (Manual) (20-40) % Monocytes % (Manual) (0-10) % Platelet Estimate (NORMAL) Large Platelets Hypochromasia (manual) Poikilocytosis (manual Anisocytosis (manual) Microcytosis (manual) Tear Drop Cells Ofelia Cells PT (9.7-12.2) SECONDS INR APTT (21-34) SECONDS Puncture Site pCO2 (35-45) mm/Hg pO2 (80-100) mm/Hg HCO3 (21-28) mmol/L ABG pH (7.35-7.45) ABG Total CO2 (22-28) mmol/L ABG O2 Saturation (95-98) % ABG Base Excess (-2.0-3.0) mmol/L Daniel Test ABG Potassium (3.6-5.2) mmol/L A-a O2 Difference mm/Hg Respiratory Index Glucose (65-105) mg/dl Lactate (0.7-2.1) mmol/L Liter Flow FiO2 % Sodium (132-148) mmol/L Potassium (3.6-5.2) mmol/L Chloride (98-107) mmol/L Carbon Dioxide (22-30) mmol/L Anion Gap (10-20) BUN (7-17) mg/dL Creatinine (0.7-1.2) mg/dL Est GFR ( Amer) Est GFR (Non-Af Amer) POC Glucose (mg/dL) (65-110) mg/dL Random Glucose (65-105) mg/dL Calcium (8.6-10.4) mg/dl Phosphorus 4.8 H (2.5-4.5) mg/dL Magnesium 1.6 (1.6-2.3) mg/dL Total Bilirubin (0.2-1.3) mg/dL Direct Bilirubin (0.0-0.4) mg/dL AST (14-36) U/L ALT (9-52) U/L Alkaline Phosphatase (38-126) U/L Ammonia (9-33) umol/L Lactate Dehydrogenase 648 H (313-618) U/L Total Protein (6.3-8.3) g/dL Albumin (3.5-5.0) g/dL Globulin (2.2-3.9) gm/dL Albumin/Globulin Ratio (1.0-2.1) Procalcitonin 3.66 H (0.19-0.49) NG/ML Prolactin (3.0-18.9) ng/mL Arterial Blood Potassium (3.6-5.2) mmol/L Urine Color (YELLOW) Urine Clarity (Clear) Urine pH (5.0-8.0) Ur Specific [place] (1.003-1.030) Urine Protein (NEGATIVE) mg/dL Urine Glucose (UA) (Normal) mg/dL Urine Ketones (NEGATIVE) mg/dL Urine Blood (NEGATIVE) Urine Nitrate (NEGATIVE) Urine Bilirubin (NEGATIVE) Urine Urobilinogen (0.2-1.0) mg/dL Ur Leukocyte Esterase (Negative) [place]/uL Urine WBC (Auto) (0-5) /hpf Urine RBC (Auto) (0-3) /hpf Ur Squamous Epith Cells (0-5) /hpf Urine Bacteria (<OCC) U Random Total Protein (0.0-12.0) mg/dL Ur Random Sodium mmol/L Ur L.pneumophila Ag Negative (NEGATIVE) 04/08/17 04/08/17 04/08/17 Range/Units 08:19 08:19 08:19 WBC (4.8-10.8) K/uL RBC (3.80-5.20) Mil/uL Hgb (11.0-16.0) g/dL Hct (34.0-47.0) % MCV (81.0-99.0) fL MCH (27.0-31.0) pg MCHC (33.0-37.0) g/dL RDW (11.5-14.5) % Plt Count (130-400) K/uL MPV (7.2-11.7) fL Neut % (Auto) (50.0-75.0) % Lymph % (Auto) (20.0-40.0) % [place] % (Auto) (0.0-10.0) % Eos % (Auto) (0.0-4.0) % Baso % (Auto) (0.0-2.0) % Neut # (1.8-7.0) K/uL Lymph # (1.0-4.3) K/uL [place] # (0.0-0.8) K/uL Eos # (0.0-0.7) K/uL Baso # (0.0-0.2) K/uL Neutrophils % (Manual) (50-75) % Band Neutrophils % (0-2) % Lymphocytes % (Manual) (20-40) % Monocytes % (Manual) (0-10) % Platelet Estimate (NORMAL) Large Platelets Hypochromasia (manual) Poikilocytosis (manual Anisocytosis (manual) Microcytosis (manual) Tear Drop Cells Ofelia Cells PT (9.7-12.2) SECONDS INR APTT (21-34) SECONDS Puncture Site pCO2 (35-45) mm/Hg pO2 (80-100) mm/Hg HCO3 (21-28) mmol/L ABG pH (7.35-7.45) ABG Total CO2 (22-28) mmol/L ABG O2 Saturation (95-98) % ABG Base Excess (-2.0-3.0) mmol/L Daniel Test ABG Potassium (3.6-5.2) mmol/L A-a O2 Difference mm/Hg Respiratory Index Glucose (65-105) mg/dl Lactate (0.7-2.1) mmol/L Liter Flow FiO2 % Sodium 134 (132-148) mmol/L Potassium 3.0 L (3.6-5.2) mmol/L Chloride 102 (98-107) mmol/L Carbon Dioxide 21 L (22-30) mmol/L Anion Gap 14 (10-20) BUN 8 (7-17) mg/dL Creatinine 1.4 H (0.7-1.2) mg/dL Est GFR ( Amer) 52 Est GFR (Non-Af Amer) 43 POC Glucose (mg/dL) (65-110) mg/dL Random Glucose 105 (65-105) mg/dL Calcium 6.9 L (8.6-10.4) mg/dl Phosphorus (2.5-4.5) mg/dL Magnesium (1.6-2.3) mg/dL Total Bilirubin 0.6 0.5 (0.2-1.3) mg/dL Direct Bilirubin 0.4 (0.0-0.4) mg/dL AST 26 30 (14-36) U/L ALT 27 24 (9-52) U/L Alkaline Phosphatase 116 90 (38-126) U/L Ammonia < 9 L (9-33) umol/L Lactate Dehydrogenase (313-618) U/L Total Protein 6.8 5.9 L (6.3-8.3) g/dL Albumin 3.3 L D 2.7 L (3.5-5.0) g/dL Globulin 3.5 3.2 (2.2-3.9) gm/dL Albumin/Globulin Ratio 0.9 L 0.8 L (1.0-2.1) Procalcitonin (0.19-0.49) NG/ML Prolactin 129.9 H (3.0-18.9) ng/mL Arterial Blood Potassium (3.6-5.2) mmol/L Urine Color (YELLOW) Urine Clarity (Clear) Urine pH (5.0-8.0) Ur Specific [place] (1.003-1.030) Urine Protein (NEGATIVE) mg/dL Urine Glucose (UA) (Normal) mg/dL Urine Ketones (NEGATIVE) mg/dL Urine Blood (NEGATIVE) Urine Nitrate (NEGATIVE) Urine Bilirubin (NEGATIVE) Urine Urobilinogen (0.2-1.0) mg/dL Ur Leukocyte Esterase (Negative) [place]/uL Urine WBC (Auto) (0-5) /hpf Urine RBC (Auto) (0-3) /hpf Ur Squamous Epith Cells (0-5) /hpf Urine Bacteria (<OCC) U Random Total Protein (0.0-12.0) mg/dL Ur Random Sodium mmol/L Ur L.pneumophila Ag (NEGATIVE) 04/08/17 04/08/17 04/07/17 Range/Units 08:19 06:08 20:55 WBC 36.1 H D (4.8-10.8) K/uL RBC 3.62 L (3.80-5.20) Mil/uL Hgb 10.0 L (11.0-16.0) g/dL Hct 30.0 L (34.0-47.0) % MCV 82.9 D (81.0-99.0) fL MCH 27.6 (27.0-31.0) pg MCHC 33.3 (33.0-37.0) g/dL RDW 13.4 (11.5-14.5) % Plt Count 707 H D (130-400) K/uL MPV 8.1 (7.2-11.7) fL Neut % (Auto) 89.5 H (50.0-75.0) % Lymph % (Auto) 2.3 L (20.0-40.0) % [place] % (Auto) 8.0 (0.0-10.0) % Eos % (Auto) 0.0 (0.0-4.0) % Baso % (Auto) 0.2 (0.0-2.0) % Neut # 32.2 H (1.8-7.0) K/uL Lymph # 0.8 L (1.0-4.3) K/uL [place] # 2.9 H (0.0-0.8) K/uL Eos # 0.0 (0.0-0.7) K/uL Baso # 0.1 (0.0-0.2) K/uL Neutrophils % (Manual) 84 H (50-75) % Band Neutrophils % 4 H (0-2) % Lymphocytes % (Manual) 2 L (20-40) % Monocytes % (Manual) 10 (0-10) % Platelet Estimate Increased H (NORMAL) Large Platelets Present Hypochromasia (manual) Slight Poikilocytosis (manual Slight Anisocytosis (manual) Slight Microcytosis (manual) Slight Tear Drop Cells Slight Ofelia Cells Slight PT (9.7-12.2) SECONDS INR APTT (21-34) SECONDS Puncture Site pCO2 (35-45) mm/Hg pO2 (80-100) mm/Hg HCO3 (21-28) mmol/L ABG pH (7.35-7.45) ABG Total CO2 (22-28) mmol/L ABG O2 Saturation (95-98) % ABG Base Excess (-2.0-3.0) mmol/L Daniel Test ABG Potassium (3.6-5.2) mmol/L A-a O2 Difference mm/Hg Respiratory Index Glucose (65-105) mg/dl Lactate (0.7-2.1) mmol/L Liter Flow FiO2 % Sodium (132-148) mmol/L Potassium (3.6-5.2) mmol/L Chloride (98-107) mmol/L Carbon Dioxide (22-30) mmol/L Anion Gap (10-20) BUN (7-17) mg/dL Creatinine (0.7-1.2) mg/dL Est GFR ( Amer) Est GFR (Non-Af Amer) POC Glucose (mg/dL) 145 H 166 H (65-110) mg/dL Random Glucose (65-105) mg/dL Calcium (8.6-10.4) mg/dl Phosphorus (2.5-4.5) mg/dL Magnesium (1.6-2.3) mg/dL Total Bilirubin (0.2-1.3) mg/dL Direct Bilirubin (0.0-0.4) mg/dL AST (14-36) U/L ALT (9-52) U/L Alkaline Phosphatase (38-126) U/L Ammonia (9-33) umol/L Lactate Dehydrogenase (313-618) U/L Total Protein (6.3-8.3) g/dL Albumin (3.5-5.0) g/dL Globulin (2.2-3.9) gm/dL Albumin/Globulin Ratio (1.0-2.1) Procalcitonin (0.19-0.49) NG/ML Prolactin (3.0-18.9) ng/mL Arterial Blood Potassium (3.6-5.2) mmol/L Urine Color (YELLOW) Urine Clarity (Clear) Urine pH (5.0-8.0) Ur Specific [place] (1.003-1.030) Urine Protein (NEGATIVE) mg/dL Urine Glucose (UA) (Normal) mg/dL Urine Ketones (NEGATIVE) mg/dL Urine Blood (NEGATIVE) Urine Nitrate (NEGATIVE) Urine Bilirubin (NEGATIVE) Urine Urobilinogen (0.2-1.0) mg/dL Ur Leukocyte Esterase (Negative) [place]/uL Urine WBC (Auto) (0-5) /hpf Urine RBC (Auto) (0-3) /hpf Ur Squamous Epith Cells (0-5) /hpf Urine Bacteria (<OCC) U Random Total Protein (0.0-12.0) mg/dL Ur Random Sodium mmol/L Ur L.pneumophila Ag (NEGATIVE) Laboratory Results - last 24 hr 04/07/17 04/08/17 04/08/17 20:55 06:08 08:19 WBC 36.1 H D RBC 3.62 L Hgb 10.0 L Hct 30.0 L MCV 82.9 D MCH 27.6 MCHC 33.3 RDW 13.4 Plt Count 707 H D MPV 8.1 Neut % (Auto) 89.5 H Lymph % (Auto) 2.3 L [place] % (Auto) 8.0 Eos % (Auto) 0.0 Baso % (Auto) 0.2 Neut # 32.2 H Lymph # 0.8 L [place] # 2.9 H Eos # 0.0 Baso # 0.1 Neutrophils % (Manual) 84 H Band Neutrophils % 4 H Lymphocytes % (Manual) 2 L Monocytes % (Manual) 10 Platelet Estimate Increased H Large Platelets Present Hypochromasia (manual) Slight Poikilocytosis (manual Slight Anisocytosis (manual) Slight Microcytosis (manual) Slight Tear Drop Cells Slight Hanna Cells Slight PT INR APTT Puncture Site pCO2 pO2 HCO3 ABG pH ABG Total CO2 ABG O2 Saturation ABG Base Excess Daniel Test ABG Potassium A-a O2 Difference Respiratory Index Glucose Lactate Liter Flow FiO2 Sodium Potassium Chloride Carbon Dioxide Anion Gap BUN Creatinine Est GFR ( Amer) Est GFR (Non-Af Amer) POC Glucose (mg/dL) 166 H 145 H Random Glucose Calcium Phosphorus Magnesium Total Bilirubin Direct Bilirubin AST ALT Alkaline Phosphatase Ammonia Lactate Dehydrogenase Total Protein Albumin Globulin Albumin/Globulin Ratio Procalcitonin Prolactin Arterial Blood Potassium Urine Color Urine Clarity Urine pH Ur Specific [place] Urine Protein Urine Glucose (UA) Urine Ketones Urine Blood Urine Nitrate Urine Bilirubin Urine Urobilinogen Ur Leukocyte Esterase Urine WBC (Auto) Urine RBC (Auto) Ur Squamous Epith Cells Urine Bacteria U Random Total Protein Ur Random Sodium Ur L.pneumophila Ag 1204/08/17 04/08/17 08:19 08:19 08:19 WBC RBC Hgb Hct MCV MCH MCHC RDW Plt Count MPV Neut % (Auto) Lymph % (Auto) [place] % (Auto) Eos % (Auto) Baso % (Auto) Neut # Lymph # [place] # Eos # Baso # Neutrophils % (Manual) Band Neutrophils % Lymphocytes % (Manual) Monocytes % (Manual) Platelet Estimate Large Platelets Hypochromasia (manual) Poikilocytosis (manual Anisocytosis (manual) Microcytosis (manual) Tear Drop Cells Of[place] Cells PT INR APTT Puncture Site pCO2 pO2 HCO3 ABG pH ABG Total CO2 ABG O2 Saturation ABG Base Excess Daniel Test ABG Potassium A-a O2 Difference Respiratory Index Glucose Lactate Liter Flow FiO2 Sodium 134 Potassium 3.0 L Chloride 102 Carbon Dioxide 21 L Anion Gap 14 BUN 8 Creatinine 1.4 H Est GFR ( Amer) 52 Est GFR (Non-Af Amer) 43 POC Glucose (mg/dL) Random Glucose 105 Calcium 6.9 L Phosphorus Magnesium Total Bilirubin 0.5 0.6 Direct Bilirubin 0.4 AST 30 26 ALT 24 27 Alkaline Phosphatase 90 116 Ammonia < 9 L Lactate Dehydrogenase Total Protein 5.9 L 6.8 Albumin 2.7 L 3.3 L D Globulin 3.2 3.5 Albumin/Globulin Ratio 0.8 L 0.9 L Procalcitonin Prolactin 129.9 H Arterial Blood Potassium Urine Color Urine Clarity Urine pH Ur Specific [place] Urine Protein Urine Glucose (UA) Urine Ketones Urine Blood Urine Nitrate Urine Bilirubin Urine Urobilinogen Ur Leukocyte Esterase Urine WBC (Auto) Urine RBC (Auto) Ur Squamous Epith Cells Urine Bacteria U Random Total Protein Ur Random Sodium Ur L.pneumophila Ag 04/08/17 04/08/17 04/08/17 12:09 12:45 12:45 WBC RBC Hgb Hct MCV MCH MCHC RDW Plt Count MPV Neut % (Auto) Lymph % (Auto) [place] % (Auto) Eos % (Auto) Baso % (Auto) Neut # Lymph # [place] # Eos # Baso # Neutrophils % (Manual) Band Neutrophils % Lymphocytes % (Manual) Monocytes % (Manual) Platelet Estimate Large Platelets Hypochromasia (manual) Poikilocytosis (manual Anisocytosis (manual) Microcytosis (manual) Tear Drop Cells [place] Cells PT INR APTT Puncture Site pCO2 pO2 HCO3 ABG pH ABG Total CO2 ABG O2 Saturation ABG Base Excess Daniel Test ABG Potassium A-a O2 Difference Respiratory Index Glucose Lactate Liter Flow FiO2 Sodium Potassium Chloride Carbon Dioxide Anion Gap BUN Creatinine Est GFR ( Amer) Est GFR (Non-Af Amer) POC Glucose (mg/dL) Random Glucose Calcium Phosphorus 4.8 H Magnesium 1.6 Total Bilirubin Direct Bilirubin AST ALT Alkaline Phosphatase Ammonia Lactate Dehydrogenase 648 H Total Protein Albumin Globulin Albumin/Globulin Ratio Procalcitonin 3.66 H Prolactin Arterial Blood Potassium Urine Color Urine Clarity Urine pH Ur Specific [place] Urine Protein Urine Glucose (UA) Urine Ketones Urine Blood Urine Nitrate Urine Bilirubin Urine Urobilinogen Ur Leukocyte Esterase Urine WBC (Auto) Urine RBC (Auto) Ur Squamous Epith Cells Urine Bacteria U Random Total Protein Ur Random Sodium Ur L.pneumophila Ag Negative 04/08/17 04/08/17 04/08/17 12:45 12:51 13:06 WBC RBC Hgb Hct MCV MCH MCHC RDW Plt Count MPV Neut % (Auto) Lymph % (Auto) [place] % (Auto) Eos % (Auto) Baso % (Auto) Neut # Lymph # [place] # Eos # Baso # Neutrophils % (Manual) Band Neutrophils % Lymphocytes % (Manual) Monocytes % (Manual) Platelet Estimate Large Platelets Hypochromasia (manual) Poikilocytosis (manual Anisocytosis (manual) Microcytosis (manual) Tear Drop Cells [place] Cells PT 21.6 H INR 1.9 APTT 30 Puncture Site Rra pCO2 24 L pO2 148 H HCO3 22.9 ABG pH 7.50 H ABG Total CO2 19.4 L ABG O2 Saturation 99.4 H ABG Base Excess -2.7 L Daniel Test Pos ABG Potassium 3.2 L A-a O2 Difference 22.0 Respiratory Index 0.1 Glucose 104 Lactate 1.0 Liter Flow 2.0 FiO2 28.0 Sodium 140.0 Potassium Chloride 113.0 H Carbon Dioxide Anion Gap BUN Creatinine Est GFR ( Amer) Est GFR (Non-Af Amer) POC Glucose (mg/dL) Random Glucose Calcium Phosphorus Magnesium Total Bilirubin Direct Bilirubin AST ALT Alkaline Phosphatase Ammonia Lactate Dehydrogenase Total Protein Albumin Globulin Albumin/Globulin Ratio Procalcitonin Prolactin Arterial Blood Potassium 3.2 L Urine Color [place] Urine Clarity Hazy Urine pH 5.0 Ur Specific [place] 1.030 Urine Protein 2+ H Urine Glucose (UA) Normal Urine Ketones Trace Urine Blood 1+ H Urine Nitrate Negative Urine Bilirubin Negative Urine Urobilinogen Normal Ur Leukocyte Esterase 1+ H Urine WBC (Auto) 23 H Urine RBC (Auto) 5 H Ur Squamous Epith Cells 7 H Urine Bacteria Rare U Random Total Protein Ur Random Sodium Ur L.pneumophila Ag 04/08/17 04/08/17 04/08/17 15:00 15:32 16:41 WBC RBC Hgb Hct MCV MCH MCHC RDW Plt Count MPV Neut % (Auto) Lymph % (Auto) [place] % (Auto) Eos % (Auto) Baso % (Auto) Neut # Lymph # [place] # Eos # Baso # Neutrophils % (Manual) Band Neutrophils % Lymphocytes % (Manual) Monocytes % (Manual) Platelet Estimate Large Platelets Hypochromasia (manual) Poikilocytosis (manual Anisocytosis (manual) Microcytosis (manual) Tear Drop Cells [place]anna Cells PT INR APTT Puncture Site pCO2 pO2 HCO3 ABG pH ABG Total CO2 ABG O2 Saturation ABG Base Excess Daniel Test ABG Potassium A-a O2 Difference Respiratory Index Glucose Lactate Liter Flow FiO2 Sodium Potassium Chloride Carbon Dioxide Anion Gap BUN Creatinine Est GFR ( Amer) Est GFR (Non-Af Amer) POC Glucose (mg/dL) 136 H Random Glucose Calcium Phosphorus Magnesium Total Bilirubin Direct Bilirubin AST ALT Alkaline Phosphatase Ammonia Lactate Dehydrogenase Total Protein Albumin Globulin Albumin/Globulin Ratio Procalcitonin Prolactin Arterial Blood Potassium Urine Color Urine Clarity Urine pH Ur Specific [place] Urine Protein Urine Glucose (UA) Urine Ketones Urine Blood Urine Nitrate Urine Bilirubin Urine Urobilinogen Ur Leukocyte Esterase Urine WBC (Auto) Urine RBC (Auto) Ur Squamous Epith Cells Urine Bacteria U Random Total Protein 41.0 H Cancelled Ur Random Sodium 7 Ur L.pneumophila Ag EKG/Cardiology Studies: Cardiology / EKG Studies 04/08/17 14:58 EKG [ELECTROCARDIOGRAM] Stat Comment: Mode Of Transportation: Reason For Exam: hr 150 Fingerstick Blood Sugar Results: 85 Critical Care Progress Note - Nutrition Nutrition: Nutrition Category Date Time Status NPO Diet [DIET] Diets 04/08/17 Dinner Ordered Assessment/Plan - Assessment and Plan (Free Text) Assessment: Neuro: hx of Schizophrenia, patient has mental retardation and can speak some words based on observation Altered mental status 04/07 Dr. Bedoya consulted Psych Consult: Dr. Mccloud f/u EEG MRI f/u ABD/pelvis CT Pain: Morphine 2 mg IV q4h PRN; Morphine 4 mg IV q4h PRN Sedation: 1mg Haldol IVP Q12H PRN 0.5mg Ativan Q6H PRN Nausea: Zofran 4mg IVP q6h PRN Reglan 10 mg IVP q4h PRN Psych: Psych Consult Dr. Mccloud: f/u 03/30 EKG to evaluate QTc Quetiapine (Seroquel) 200mg POBID, held d/t NGT on IWS, held awaiting Dr. Mccloud Recommendations Escitalopram (Lexapro) 10mg PO QD, held d/t NGT on IWS, held awaiting Dr. Mccloud Recommendations Cardio: 03/27 EKG Sinus tachycardia 138 bpm 03/30 EKG QTc 434, Sinus tachycardia at 153 bpm Pulm: Aspiration pneumonia s/p EGD with intubation then extubation 03/27 AB.22 03/27 CXR in infiltrates, no active pulmonary disease 03/30 CXR: poor inspiratory effort, areas suggestive of aspiration pneumonia 04/02: CT abdomen/pelvis/chest: pleural effusions, bilateral perihilar consolidations possibly due to multifocal pneumonia vs. atelectasis 04/04: CXR: Left lower lobe atelectasis/pneumonia and small left pleural effusion. Stable position of nasogastric tube and left PICC line. Endo: 03/28 Hemoglobin A1c 5.3 GI: Currently on PPN 03/28 Lipase 8456 03/29 Lipase 322 03/30 Lipase 64 03/30 GOBT positive 03/31 Pathology for Antrum biopsy from 03/29 EGD current biopsy negative for H pylori 04/01 f/u Dr. Harmon for repeat EGD., NGT 800 03/27 21:42 CT abdomen/pelvis with IV contrast: gastric distention 32cm and distention of the first and third and second portion of duodenum. Transition and complete decompression of third portion of duodenum. pancreas unremarkable, spleen unremarkable, partially contracted gallbladder. duodenal obstruction v delayed emptying v gastroparesis. Fluid distention of distal esophagus 3.3cm representing gastric emptying v gastroesophageal reflux. 03/27 CT abdomen/pelvis with IV contrast: significantly dilated stomach with retained food and fluid. significantly diminished prior to earlier CT 03/28. No free intraperitoneal gas identified. contrast noted in Gallbladder. 03/28 CT Chest/Abdomen/Pelvis: Left greater than right pleural effusion, bilateral perihilar consolidation. right more than left upper lobes and left more than right lower lobes. lingular consolidation representing multifocal pneumonia v. atelectasis versus mucous lugging and/or aspiration. interval worsening compared to prior exam 04/02 CT chest/abdomen/pelvis shows gastric distention 27cm, possible gastric pneumatosis, NGT at fundus with contrast fluid and gas level peripancreatic infiltration. gastric distension measuring 27 cm with possible gastric pneumatosis. intraperitoneal pelvic fluid with prominent surrounding peritoneal lining. Loculated ascites with peritoneal enhancement above spleen in retrogastric region. Lipase 320. 03/[address] connected to suction. 03/28 NGT OP since insertion: 2600cc 03/29 2350 03/30 NGT 1160 03/31 NGT 630 04/01 NGT 800 04/02 NGT 100 04/04 550, NGT removed by patient, Flexiseal removed by patient f/u Strict I/Os General Surgery Consult: Dr. Woodruff 03/[address] Harmon to have EGD today. 03/[address] Harmon, place patient on Reglan to help with motility. 03/30 Abdominal xray/obstructive series: minimal distention of stomach compared to previous imaging studies 03/31 Pathology for Antrum biopsy from 03/29 EGD current biopsy negative for H pylori 04/01 f/u Dr. Harmon for repeat EGD. Morphine 2 mg IV q4h PRN moderate pain Morphine 4 mg IV q4h PRN severe pain Zofran 4mg IVP q6h PRN Reglan 10 mg IVP q4h PRN Renal: 03/27 UA: proteinuria urine output since insertion 360 average hourly output 60cc/hr f/u Strict I/Os 03/31 Potassium Phosphorus 15mmole @63cc/hr : 03/27 UA: hazy, specific gravity >1.060, 3+ urine protein, Urine bacteria, Urine Yeast Ceftriaxone 1gm IVPB QD 03/30 Urine Cx negative Heme: GI bleed H/H: 03/27 14.6/44.7 03/28 12.9/38.5 03/29 11.2/33.0 03/30 9.5/27.7 03/31 9.4/27.5 12/22 8.9/25.8 04/02 9.1/26.7 04/04 9.9/28.8 04/05 9.4/28.4 03/28 FOBT positive 03/30 GOBT positive MSK: Patient can walk per sister, but is dizzy so hasn't walked PT/OT eval and treat when stable ID: Sepsis Code sepsis 03/28 02:20 03/28 lactate 9.7 03/28 lactate 01:05 9.2 03/28 lactate 06:15 1.3 03/27 WBC 26.7 03/28 WBC 30.2 03/29 WBC 21.3 03/30 WBC 16.1 03/31 WBC 15.7 04/02 WBC 16.8 04/03 WBC 18.4 04/04 WBC 18.6 04/05 WBC 20.1 Code sepsis 03/28 02:20 03/30 blood Culture x 2, negative 03/30 MRSA screen negative 03/30 Urine Cx negative 04/02 Blood culturex2 negative 03/29 Neutrophils 75, Bands 9 03/30 Neutrophils 83, Bands 1 04/02 Neutrophils 83 04/04 Neutrophils 73.8 04/05 Neutrophils 74.4 Code sepsis called again today 04/08. Patient was febrile (102 rectally and tachycardic ~140s) BP was 100/70. f/u UA, urine culture ABG shock lactate 1 f/u blood cultures Tovra inserted to monitor urine output (nurse to clean TID with betadine) WBC 36.1 elevating from 20s. 4 bands Platelets 707 Fluids started 125 cc/hour BP stable Vanc 1gram Q12 hours IVPB Zosyn 3.375g IVPB Q8 hours Tyelnol 650mg rectally for 24 hours f/u CT abd/pelvis - patient appears to have an pneumonia in the left lower lung f/u legionella, step, and mycoplasma Pulm consulted, Dr. Hernandez, help appreciated Flagyl 500mg IVPB Q8H Zosyn 3.375gm in 50cc IVPB Q8H Prophylaxis: GI: Protonix Drip Zofran 4mg IVP Q6H PRN Nausea Tylenol 325mg RI Q4H PRN Fluids: D5W/NS @ 125cc/hr Diet: Clear Liquid Diet 04/04 NGT removed by patient, Flexiseal removed by patient, Left PICC removed by patient. 04/05 Patient downgraded to Regular Bed discussed with Dr. David Smith DO PGY1 - Date & Time Date: 04/08/17 Time: 17:08
[2017-04-08] MEDS: Saccharomyces Boulardi 250 mg Cap PO SCH (17:39)
--- NOTE | 2017-04-08 17:46 | CP.PCM.CON ---
History of Present Illness - History of Present Illness History of Present Illness: pt seen on rounds discussed with family chart reviewed IV rx in progress 36F with a PMH of schizophrenia comes to ED with increasing abdominal distension as noted by the mother. Patient and patients mother went to a buffet yesterday. After this both the mother and the patient had some diarrhea. The patient continued to have diarrhea. She later became dizzy and was unable to stand without assistance. Patient is nonverbal at baseline but usually ambulates independently. Nothing has made her symptoms better or worse. She is unable to describe the quality of her pain. She is unable to describe any radiation or quantify severity. The diarrhea has continued and her belly has become progressively larger. Denies any Vomiting. A CT was ordered in ED that showed massive gastric distension. NGT placed. Fem TLC placed. ICU consulted. ROS: Unattainable PMH: Schizophrenia, Mental disability PSH: None FH: Unremarkable Meds: Lexapro, Seroquel All: None Hospital course remarkable for treatment of pancreatitis; possible sepsis course Now pt more oliguric and creatinine increased to 1.4 On IV fluids Past Patient History - Past Medical History & Family History Past Medical History?: Yes - Past Social History Smoking Status: Never Smoked Chewing Tobacco Use: No Cigar Use: No Home Situation {Lives}: With Family - CARDIAC Hx Cardiac Disorders: No - PULMONARY Hx Respiratory Disorders: No - NEUROLOGICAL Other/Comment: NEURO / DEVELOPMENTAL PROBLEM - HEENT Hx HEENT Problems: No - RENAL Hx Chronic Kidney Disease: No - ENDOCRINE/METABOLIC Hx Endocrine Disorders: No - HEMATOLOGICAL/ONCOLOGICAL Hx Blood Disorders: No - INTEGUMENTARY Hx Dermatological Problems: No - MUSCULOSKELETAL/RHEUMATOLOGICAL Hx Musculoskeletal Disorders: No Hx Falls: No - GASTROINTESTINAL Hx Gastrointestinal Disorders: No - GENITOURINARY/GYNECOLOGICAL Hx Genitourinary Disorders: No - PSYCHIATRIC Hx Depression: Yes Hx Schizophrenia: Yes Hx Substance Use: No - SURGICAL HISTORY Hx Surgeries: No - ANESTHESIA Hx Anesthesia: No Meds Allergies/Adverse Reactions: Allergies Allergy/AdvReac Type Severity Reaction Status Date / Time No Known Allergies Allergy Unverified 03/27/17 21:28 - Medications Medications: Current Medications Acetaminophen (Tylenol 325 Mg Supp) 325 mg RI Q4 PRN PRN Reason: Fever >100.4 F Last Admin: 03/30/17 08:15 Dose: 325 mg Acetaminophen (Tylenol 650 Mg Supp) 650 mg RI Q6 AGUSTIN Stop: 04/09/17 12:16 Last Admin: 04/08/17 12:38 Dose: 650 mg Ascorbic Acid (Vitamin C 500 Mg Tab) 500 mg PO DAILY [facility] Last Admin: 04/08/17 12:58 Dose: 500 mg Haloperidol Lactate (Haldol) 1 mg IVP BID PRN PRN Reason: Agitation Last Admin: 04/08/17 16:30 Dose: 1 mg Piperacillin Sod/Tazobactam Sod (Zosyn 3.375 Gm Iv Premix) 3.375 gm in 50 mls @ 100 mls/hr IVPB Q8H [facility] Last Admin: 04/08/17 11:28 Dose: Not Given Sodium Chloride (Sodium Chloride 0.9%) 1,000 mls @ 125 mls/hr IV .Q8H [facility] Last Admin: 04/08/17 12:05 Dose: 125 mls/hr Vancomycin/Sodium Chloride (Vancomycin 1 Gm/Ns 200 Ml) 1 gm in 200 mls @ 133.333 mls/hr IVPB Q12H [facility] Last Admin: 04/08/17 14:00 Dose: 133.333 mls/hr Sodium Chloride 40 meq/Potassium Chloride 30 meq/Magnesium Sulfate 6 meq/ Calcium Gluconate 4.5 meq/Potassium Phosphate 15 mmole/Chromium/Copper/Manganese /Zinc 1 ml/ Multivitamins/Vitamin C 10 ml/ Amino Acids 1,052.1552 mls @ 42 mls/ hr IV .Q24H [facility] Stop: 04/09/17 17:59 Fat Emulsion Intravenous (Intralipid 20%) 500 mls @ 50 mls/hr IV MWF@1800 [facility] Diltiazem HCl 125 mg/ Sodium (Chloride) 125 mls @ 5 mls/hr IV .Q24H AGUSTIN; 5 MG/ HR PRN Reason: Protocol Lorazepam (Ativan) 0.5 mg IVP Q3H PRN PRN Reason: Anxiety Last Admin: 04/07/17 18:22 Dose: 0.5 mg Metoclopramide HCl (Reglan) 10 mg IVP Q12 [facility] Last Admin: 04/08/17 11:00 Dose: Not Given Morphine Sulfate (Morphine) 2 mg IVP Q4 PRN PRN Reason: Pain, moderate (4-7) Last Admin: 04/06/17 13:47 Dose: 2 mg Morphine Sulfate (Morphine) 4 mg IVP Q4 PRN PRN Reason: Pain, severe (8-10) Last Admin: 04/07/17 19:32 Dose: 4 mg Ondansetron HCl (Zofran Inj) 4 mg IVP Q6H PRN PRN Reason: Nausea/Vomiting Pantoprazole Sodium (Protonix Inj) 40 mg IVP DAILY [facility] Last Admin: 04/08/17 11:00 Dose: Not Given Saccharomyces Boulardii (Florastor) 250 mg PO BID [facility] Last Admin: 04/08/17 17:39 Dose: Not Given Thiamine HCl (Vitamin B1 Tab) 100 mg PO DAILY [facility] Last Admin: 04/08/17 12:57 Dose: 100 mg Results - Vital Signs Recent Vital Signs: Last Vital Signs Temp 98.1 F 04/08/17 16:30 Pulse 124 H 04/08/17 16:30 Resp 24 04/08/17 16:30 BP 137/81 04/08/17 16:30 Pulse Ox 96 04/08/17 16:30 - Labs Result Diagrams: 04/08/17 08:19 04/08/17 08:19 Labs: Laboratory Results - last 24 hr 04/07/17 04/08/17 04/08/17 20:55 06:08 08:19 WBC 36.1 H D RBC 3.62 L Hgb 10.0 L Hct 30.0 L MCV 82.9 D MCH 27.6 MCHC 33.3 RDW 13.4 Plt Count 707 H D MPV 8.1 Neut % (Auto) 89.5 H Lymph % (Auto) 2.3 L [place] % (Auto) 8.0 Eos % (Auto) 0.0 Baso % (Auto) 0.2 Neut # 32.2 H Lymph # 0.8 L [place] # 2.9 H Eos # 0.0 Baso # 0.1 Neutrophils % (Manual) 84 H Band Neutrophils % 4 H Lymphocytes % (Manual) 2 L Monocytes % (Manual) 10 Platelet Estimate Increased H Large Platelets Present Hypochromasia (manual) Slight Poikilocytosis (manual Slight Anisocytosis (manual) Slight Microcytosis (manual) Slight Tear Drop Cells Slight [place] Cells Slight PT INR APTT Puncture Site pCO2 pO2 HCO3 ABG pH ABG Total CO2 ABG O2 Saturation ABG Base Excess Daniel Test ABG Potassium A-a O2 Difference Respiratory Index Glucose Lactate Liter Flow FiO2 Sodium Potassium Chloride Carbon Dioxide Anion Gap BUN Creatinine Est GFR ( Amer) Est GFR (Non-Af Amer) POC Glucose (mg/dL) 166 H 145 H Random Glucose Calcium Phosphorus Magnesium Total Bilirubin Direct Bilirubin AST ALT Alkaline Phosphatase Ammonia Lactate Dehydrogenase Total Protein Albumin Globulin Albumin/Globulin Ratio Procalcitonin Prolactin Arterial Blood Potassium Urine Color Urine Clarity Urine pH Ur Specific [place] Urine Protein Urine Glucose (UA) Urine Ketones Urine Blood Urine Nitrate Urine Bilirubin Urine Urobilinogen Ur Leukocyte Esterase Urine WBC (Auto) Urine RBC (Auto) Ur Squamous Epith Cells Urine Bacteria U Random Total Protein Ur Random Sodium Ur L.pneumophila Ag 04/08/17 04/08/17 04/08/17 08:19 08:19 08:19 WBC RBC Hgb Hct MCV MCH MCHC RDW Plt Count MPV Neut % (Auto) Lymph % (Auto) [place] % (Auto) Eos % (Auto) Baso % (Auto) Neut # Lymph # [place] # Eos # Baso # Neutrophils % (Manual) Band Neutrophils % Lymphocytes % (Manual) Monocytes % (Manual) Platelet Estimate Large Platelets Hypochromasia (manual) Poikilocytosis (manual Anisocytosis (manual) Microcytosis (manual) Tear Drop Cells [place] Cells PT INR APTT Puncture Site pCO2 pO2 HCO3 ABG pH ABG Total CO2 ABG O2 Saturation ABG Base Excess Daniel Test ABG Potassium A-a O2 Difference Respiratory Index Glucose Lactate Liter Flow FiO2 Sodium 134 Potassium 3.0 L Chloride 102 Carbon Dioxide 21 L Anion Gap 14 BUN 8 Creatinine 1.4 H Est GFR ( Amer) 52 Est GFR (Non-Af Amer) 43 POC Glucose (mg/dL) Random Glucose 105 Calcium 6.9 L Phosphorus Magnesium Total Bilirubin 0.5 0.6 Direct Bilirubin 0.4 AST 30 26 ALT 24 27 Alkaline Phosphatase 90 116 Ammonia < 9 L Lactate Dehydrogenase Total Protein 5.9 L 6.8 Albumin 2.7 L 3.3 L D Globulin 3.2 3.5 Albumin/Globulin Ratio 0.8 L 0.9 L Procalcitonin Prolactin 129.9 H Arterial Blood Potassium Urine Color Urine Clarity Urine pH Ur Specific [place] Urine Protein Urine Glucose (UA) Urine Ketones Urine Blood Urine Nitrate Urine Bilirubin Urine Urobilinogen Ur Leukocyte Esterase Urine WBC (Auto) Urine RBC (Auto) Ur Squamous Epith Cells Urine Bacteria U Random Total Protein Ur Random Sodium Ur L.pneumophila Ag 04/08/17 04/08/17 04/08/17 12:09 12:45 12:45 WBC RBC Hgb Hct MCV MCH MCHC RDW Plt Count MPV Neut % (Auto) Lymph % (Auto) [place] % (Auto) Eos % (Auto) Baso % (Auto) Neut # Lymph # [place] # Eos # Baso # Neutrophils % (Manual) Band Neutrophils % Lymphocytes % (Manual) Monocytes % (Manual) Platelet Estimate Large Platelets Hypochromasia (manual) Poikilocytosis (manual Anisocytosis (manual) Microcytosis (manual) Tear Drop Cells [place] Cells PT INR APTT Puncture Site pCO2 pO2 HCO3 ABG pH ABG Total CO2 ABG O2 Saturation ABG Base Excess Daniel Test ABG Potassium A-a O2 Difference Respiratory Index Glucose Lactate Liter Flow FiO2 Sodium Potassium Chloride Carbon Dioxide Anion Gap BUN Creatinine Est GFR ( Amer) Est GFR (Non-Af Amer) POC Glucose (mg/dL) Random Glucose Calcium Phosphorus 4.8 H Magnesium 1.6 Total Bilirubin Direct Bilirubin AST ALT Alkaline Phosphatase Ammonia Lactate Dehydrogenase 648 H Total Protein Albumin Globulin Albumin/Globulin Ratio Procalcitonin 3.66 H Prolactin Arterial Blood Potassium Urine Color Urine Clarity Urine pH Ur Specific [place] Urine Protein Urine Glucose (UA) Urine Ketones Urine Blood Urine Nitrate Urine Bilirubin Urine Urobilinogen Ur Leukocyte Esterase Urine WBC (Auto) Urine RBC (Auto) Ur Squamous Epith Cells Urine Bacteria U Random Total Protein Ur Random Sodium Ur L.pneumophila Ag Negative 04/08/17 04/08/17 04/08/17 12:45 12:51 13:06 WBC RBC Hgb Hct MCV MCH MCHC RDW Plt Count MPV Neut % (Auto) Lymph % (Auto) [place] % (Auto) Eos % (Auto) Baso % (Auto) Neut # Lymph # [place] # Eos # Baso # Neutrophils % (Manual) Band Neutrophils % Lymphocytes % (Manual) Monocytes % (Manual) Platelet Estimate Large Platelets Hypochromasia (manual) Poikilocytosis (manual Anisocytosis (manual) Microcytosis (manual) Tear Drop Cells [place] Cells PT 21.6 H INR 1.9 APTT 30 Puncture Site Rra pCO2 24 L pO2 148 H HCO3 22.9 ABG pH 7.50 H ABG Total CO2 19.4 L ABG O2 Saturation 99.4 H ABG Base Excess -2.7 L Daniel Test Pos ABG Potassium 3.2 L A-a O2 Difference 22.0 Respiratory Index 0.1 Glucose 104 Lactate 1.0 Liter Flow 2.0 FiO2 28.0 Sodium 140.0 Potassium Chloride 113.0 H Carbon Dioxide Anion Gap BUN Creatinine Est GFR ( Amer) Est GFR (Non-Af Amer) POC Glucose (mg/dL) Random Glucose Calcium Phosphorus Magnesium Total Bilirubin Direct Bilirubin AST ALT Alkaline Phosphatase Ammonia Lactate Dehydrogenase Total Protein Albumin Globulin Albumin/Globulin Ratio Procalcitonin Prolactin Arterial Blood Potassium 3.2 L Urine Color [place] Urine Clarity Hazy Urine pH 5.0 Ur Specific [place] 1.030 Urine Protein 2+ H Urine Glucose (UA) Normal Urine Ketones Trace Urine Blood 1+ H Urine Nitrate Negative Urine Bilirubin Negative Urine Urobilinogen Normal Ur Leukocyte Esterase 1+ H Urine WBC (Auto) 23 H Urine RBC (Auto) 5 H Ur Squamous Epith Cells 7 H Urine Bacteria Rare U Random Total Protein Ur Random Sodium Ur L.pneumophila Ag 04/08/17 04/08/17 04/08/17 15:00 15:32 16:41 WBC RBC Hgb Hct MCV MCH MCHC RDW Plt Count MPV Neut % (Auto) Lymph % (Auto) [place] % (Auto) Eos % (Auto) Baso % (Auto) Neut # Lymph # [place] # Eos # Baso # Neutrophils % (Manual) Band Neutrophils % Lymphocytes % (Manual) Monocytes % (Manual) Platelet Estimate Large Platelets Hypochromasia (manual) Poikilocytosis (manual Anisocytosis (manual) Microcytosis (manual) Tear Drop Cells [place] Cells PT INR APTT Puncture Site pCO2 pO2 HCO3 ABG pH ABG Total CO2 ABG O2 Saturation ABG Base Excess Daniel Test ABG Potassium A-a O2 Difference Respiratory Index Glucose Lactate Liter Flow FiO2 Sodium Potassium Chloride Carbon Dioxide Anion Gap BUN Creatinine Est GFR ( Amer) Est GFR (Non-Af Amer) POC Glucose (mg/dL) 136 H Random Glucose Calcium Phosphorus Magnesium Total Bilirubin Direct Bilirubin AST ALT Alkaline Phosphatase Ammonia Lactate Dehydrogenase Total Protein Albumin Globulin Albumin/Globulin Ratio Procalcitonin Prolactin Arterial Blood Potassium Urine Color Urine Clarity Urine pH Ur Specific [place] Urine Protein Urine Glucose (UA) Urine Ketones Urine Blood Urine Nitrate Urine Bilirubin Urine Urobilinogen Ur Leukocyte Esterase Urine WBC (Auto) Urine RBC (Auto) Ur Squamous Epith Cells Urine Bacteria U Random Total Protein 41.0 H Cancelled Ur Random Sodium 7 Ur L.pneumophila Ag
[2017-04-08] MEDS ORDERED: PPN # 1 IV SCH (18:00)
[2017-04-08] MEDS ORDERED: Fat Emulsion 20% IV 500 ML IV SCH (18:00)
[2017-04-08] MEDS: Vancomycin 1 gm/NS 200 ml 1 GM/200 ML BAG IVPB SCH (19:00)
[2017-04-08 19:15] LABS: BASO # 0.5 K/uL (0.0-0.2); BASO % 1.4 % (0.0-2.0); HEMOGLOBIN 9.6 g/dL (11.0-16.0); LYMPH # 0.8 K/uL (1.0-4.3); LYMPH % 2.2 % (20.0-40.0); MEAN CELL VOLUME 82.4 fL (81.0-99.0); MEAN CORPUSCULAR HGB CONC 32.8 g/dL (33.0-37.0); MEAN PLATELET VOLUME 7.6 fL (7.2-11.7); NEUT # 33.1 K/uL (1.8-7.0); NEUT % 88.4 % (50.0-75.0); NRBC % 0.1 % (0.0-2.0); PLATELET COUNT 754 K/uL (130-400); RBC 3.54 Mil/uL (3.80-5.20); RED CELL DISTRIBUTION WIDTH 13.7 % (11.5-14.5)
[2017-04-08 19:22] LABS: WHITE BLOOD COUNT 37.4 K/uL (4.8-10.8)
[2017-04-08 19:35] LABS: ALB/GLOB RATIO 0.8 (1.0-2.1); CALCIUM 7.9 mg/dl (8.6-10.4)
--- NOTE | 2017-04-08 19:42 | PCM.SEPTIC ---
Sepsis Progress Note - Reassessment Type Date of Evaluation: 04/08/17 Time of Evaluation: 16:20 Reassessment Type: Non-invasive reassessment - Non Invasive Reassessment Were the most recent vital sign reviewed: Yes Vital Sign (Latest): Temp Pulse Resp BP Pulse Ox 98.1 F 124 H 24 137/81 96 04/08/17 16:30 04/08/17 16:30 04/08/17 16:30 04/08/17 16:30 04/08/17 16:30 Cardiovascular: Yes: Tachycardia Respiratory: Yes: Decreased Breath Sounds, Rhonchi. No: Crackles, Rales, Respiratory Distress Capillary Refill: Normal (Less than 2 sec) Pulses: Normal Radial, Normal Dorsalis Pedis, Normal Posterior Tibialis Skin: Normal Color, Warm, Dry
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
[2017-04-08 20:59] LABS: BANDS 1 % (0-2); LYMPHOCYTE 3 % (20-40); MONOCYTE 4 % (0-10); NEUTROPHIL 92 % (50-75); PLATELET ESTIMATE MARKEDLY INCREASED (NORMAL); TOTAL CELLS COUNTED 100
[2017-04-09] MEDS: Morphine 4 MG/ML VIAL IVP PRN (01:25)
[2017-04-09] MEDS: Piperacill/Tazo 3.375gm in Dex 3.375 GM/50 ML BAG IVPB SCH ×3 (02:30→18:14)
[2017-04-09 06:30] LABS: BASO # 0.1 K/uL (0.0-0.2); BASO % 0.2 % (0.0-2.0); HEMOGLOBIN 9.1 g/dL (11.0-16.0); LYMPH # 0.8 K/uL (1.0-4.3); LYMPH % 2.4 % (20.0-40.0); MEAN CELL VOLUME 83.2 fL (81.0-99.0); MEAN CORPUSCULAR HEMOGLOBIN 27.1 pg (27.0-31.0); MEAN CORPUSCULAR HGB CONC 32.5 g/dL (33.0-37.0); MEAN PLATELET VOLUME 8.2 fL (7.2-11.7); NEUT # 29.5 K/uL (1.8-7.0); NEUT % 88.4 % (50.0-75.0); PLATELET COUNT 726 K/uL (130-400); RBC 3.37 Mil/uL (3.80-5.20); RED CELL DISTRIBUTION WIDTH 13.9 % (11.5-14.5); WHITE BLOOD COUNT 33.3 K/uL (4.8-10.8)
[2017-04-09 06:49] LABS: ALB/GLOB RATIO 0.8 (1.0-2.1)
--- NOTE | 2017-04-09 07:32 | CP.PCM.PN ---
Objective - Vital Signs/Intake and Output Vital Signs (last 24 hours): Temp Pulse Resp BP Pulse Ox 97.7 F 133 H 47 H 116/74 100 04/09/17 00:00 04/09/17 02:00 04/09/17 02:00 04/09/17 01:53 04/09/17 02:00 Intake and Output: 04/09/17 04/09/17 06:59 18:59 Intake Total 927 Balance 927 - Medications Medications: Current Medications Acetaminophen (Tylenol 325 Mg Supp) 325 mg [place] Q4 PRN PRN Reason: Fever >100.4 F Last Admin: 03/30/17 08:15 Dose: 325 mg Acetaminophen (Tylenol 650 Mg Supp) 650 mg [place] Q6 [facility] Stop: 04/09/17 12:16 Last Admin: 04/09/17 06:55 Dose: 650 mg Ascorbic Acid (Vitamin C 500 Mg Tab) 500 mg PO DAILY [facility] Last Admin: 04/08/17 12:58 Dose: 500 mg Haloperidol Lactate (Haldol) 1 mg IVP BID PRN PRN Reason: Agitation Last Admin: 04/09/17 00:13 Dose: 1 mg Piperacillin Sod/Tazobactam Sod (Zosyn 3.375 Gm Iv Premix) 3.375 gm in 50 mls @ 100 mls/hr IVPB Q8H [facility] Last Admin: 04/09/17 02:30 Dose: 100 mls/hr Sodium Chloride 40 meq/Potassium Chloride 30 meq/Magnesium Sulfate 6 meq/ Calcium Gluconate 4.5 meq/Potassium Phosphate 15 mmole/Chromium/Copper/Manganese /Zinc 1 ml/ Multivitamins/Vitamin C 10 ml/ Amino Acids 1,052.1552 mls @ 42 mls/ hr IV .Q24H [facility] Stop: 04/09/17 17:59 Last Admin: 04/08/17 20:00 Dose: 42 mls/hr Fat Emulsion Intravenous (Intralipid 20%) 500 mls @ 50 mls/hr IV MWF@1800 [facility] Vancomycin/Sodium Chloride (Vancomycin 1 Gm/Ns 200 Ml) 1 gm in 200 mls @ 133.333 mls/hr IVPB Q24H [facility] Stop: 04/13/17 18:31 Last Admin: 04/08/17 19:00 Dose: 133.333 mls/hr Diltiazem HCl 125 mg/ Sodium (Chloride) 125 mls @ 5 mls/hr IV .Q24H PRN; 5 MG/ HR PRN Reason: Protocol Last Titration: 04/09/17 00:00 Dose: 10 mg/hr, 10 mls/hr Sodium Chloride (Sodium Chloride 0.9%) 1,000 mls @ 50 mls/hr IV .Q20H [facility] Last Admin: 04/09/17 00:00 Dose: 50 mls/hr Lorazepam (Ativan) 0.5 mg IVP Q3H PRN PRN Reason: Anxiety Last Admin: 04/09/17 03:19 Dose: 0.5 mg Metoclopramide HCl (Reglan) 10 mg IVP Q12 [facility] Last Admin: 04/08/17 22:01 Dose: 10 mg Morphine Sulfate (Morphine) 4 mg IVP Q4 PRN PRN Reason: Pain, severe (8-10) Last Admin: 04/09/17 01:25 Dose: 4 mg Ondansetron HCl (Zofran Inj) 4 mg IVP Q6H PRN PRN Reason: Nausea/Vomiting Pantoprazole Sodium (Protonix Inj) 40 mg IVP DAILY [facility] Last Admin: 04/08/17 11:00 Dose: Not Given Saccharomyces Boulardii (Florastor) 250 mg PO BID [facility] Last Admin: 04/08/17 17:39 Dose: Not Given Thiamine HCl (Vitamin B1 Tab) 100 mg PO DAILY [facility] Last Admin: 04/08/17 12:57 Dose: 100 mg - Labs Labs: 04/09/17 06:24 04/09/17 06:19 PT 21.6 SECONDS (9.7-12.2) H 04/08/17 12:45 INR 1.9 04/08/17 12:45 APTT 30 SECONDS (21-34) 04/08/17 12:45
[2017-04-09 08:04] LABS: CERULOPLASMIN 27 mg/dL (18-53)
[2017-04-09 08:46] LABS: BANDS 4 % (0-2); LYMPHOCYTE 3 % (20-40); MONOCYTE 8 % (0-10); NEUTROPHIL 85 % (50-75); TOTAL CELLS COUNTED 100
[2017-04-09 08:47] LABS: ANISOCYTOSIS SLIGHT; BURR CELLS SLIGHT; HYPOCHROMIC SLIGHT; POIKILOCYTOSIS SLIGHT; POLYCHROMIC SLIGHT; TOXIC GRANULATION PRESENT
[2017-04-09 08:48] LABS: GIANT PLATELETS PRESENT; LARGE PLATELETS PRESENT
[2017-04-09 08:49] LABS: PLATELET ESTIMATE INCREASED (NORMAL)
[2017-04-09 08:50] LABS: OVALOCYTES SLIGHT
[2017-04-09] MEDS: Saccharomyces Boulardi 250 mg Cap PO SCH ×2 (10:19→17:09)
--- NOTE | 2017-04-09 11:06 | CP.PCM.CON ---
<Kelechi Granger - Last Filed: 04/09/17 13:29> History of Present Illness - History of Present Illness History of Present Illness: Initial PGY4 GI Consult note Reason for Consult: Possible GI Bleed and gastroparesis; GI second opinion Alondra Rivera is a 36F w/ a hx of schizophrenia, mental retardation who presented to the ER with complaints of abdominal pain. Patient went to a buffet yesterday. The patient had diarrhea wit abdominal pain. She later became dizzy and was unable to stand without assistance. Patient is nonverbal at baseline but usually ambulates independently. The diarrhea has continued and her belly has become progressively larger. Denies any Vomiting. Pt noted to have Temp 101.2, leukocytosis of 26.7, lactate 9.7, lipase 8456, CT abdomen with marked gastric distention of 32cm w/distention of 1st, 2nd, and 3rd portions of duodenum, complete decompression of 3rd portion of duodenum, and acute pancreatitis. NGT was placed with over 3 L of fluid out which improved abdominal distention. An EGD performed by Dr. Harmon revealed distended stomach with retained food and esophagitis (as per EGD report). She was eventually stated on reglan with supposed improvement in symptoms, NG was eventually pulled by the patient in the ICU. At this time, she tolerated regular diet and then was transfered to the floors. On the floors, she started to experience abd pain, AMS and tachycardia. A repeat CT of the abdomen revealed markedly distended stomach with loculated fluid collection behind the stomach. IR was consulted but noted that they cannot aspirate the loculated fluid. PMH: Schizophrenia, Mental disability PSH: None FH: Unremarkable Endo hx: EGD as above ROS: could not conduct due AMS and non verbal Past Patient History - Past Medical History & Family History Past Medical History?: Yes - Past Social History Smoking Status: Never Smoked Chewing Tobacco Use: No Cigar Use: No Home Situation {Lives}: With Family - CARDIAC Hx Cardiac Disorders: No - PULMONARY Hx Respiratory Disorders: No - NEUROLOGICAL Other/Comment: NEURO / DEVELOPMENTAL PROBLEM - HEENT Hx HEENT Problems: No - RENAL Hx Chronic Kidney Disease: No - ENDOCRINE/METABOLIC Hx Endocrine Disorders: No - HEMATOLOGICAL/ONCOLOGICAL Hx Blood Disorders: No - INTEGUMENTARY Hx Dermatological Problems: No - MUSCULOSKELETAL/RHEUMATOLOGICAL Hx Musculoskeletal Disorders: No Hx Falls: No - GASTROINTESTINAL Hx Gastrointestinal Disorders: No - GENITOURINARY/GYNECOLOGICAL Hx Genitourinary Disorders: No - PSYCHIATRIC Hx Depression: Yes Hx Schizophrenia: Yes Hx Substance Use: No - SURGICAL HISTORY Hx Surgeries: No - ANESTHESIA Hx Anesthesia: No Meds Allergies/Adverse Reactions: Allergies Allergy/AdvReac Type Severity Reaction Status Date / Time No Known Allergies Allergy Unverified 03/27/17 21:28 - Medications Medications: Current Medications Acetaminophen (Tylenol 325 Mg Supp) 325 mg OH Q4 PRN PRN Reason: Fever >100.4 F Last Admin: 03/30/17 08:15 Dose: 325 mg Acetaminophen (Tylenol 650 Mg Supp) 650 mg OH Q6 [facility] Stop: 04/09/17 12:16 Last Admin: 04/09/17 06:55 Dose: 650 mg Ascorbic Acid (Vitamin C 500 Mg Tab) 500 mg PO DAILY [facility] Last Admin: 04/09/17 10:20 Dose: Not Given Haloperidol Lactate (Haldol) 1 mg IVP BID PRN PRN Reason: Agitation Last Admin: 04/09/17 00:13 Dose: 1 mg Piperacillin Sod/Tazobactam Sod (Zosyn 3.375 Gm Iv Premix) 3.375 gm in 50 mls @ 100 mls/hr IVPB Q8H [facility] Last Admin: 04/09/17 10:26 Dose: 100 mls/hr Fat Emulsion Intravenous (Intralipid 20%) 500 mls @ 50 mls/hr IV MWF@1800 AGUSTIN Vancomycin/Sodium Chloride (Vancomycin 1 Gm/Ns 200 Ml) 1 gm in 200 mls @ 133.333 mls/hr IVPB Q24H [facility] Stop: 04/13/17 18:31 Last Admin: 04/08/17 19:00 Dose: 133.333 mls/hr Diltiazem HCl 125 mg/ Sodium (Chloride) 125 mls @ 5 mls/hr IV .Q24H PRN; 5 MG/ HR PRN Reason: Protocol Last Titration: 04/09/17 08:33 Dose: 15 mg/hr, 15 mls/hr Sodium Chloride (Sodium Chloride 0.9%) 1,000 mls @ 50 mls/hr IV .Q20H [facility] Last Admin: 04/09/17 00:00 Dose: 50 mls/hr Sodium Chloride 40 meq/Potassium Chloride 30 meq/Magnesium Sulfate 6 meq/ Calcium Gluconate 4.5 meq/Potassium Phosphate 15 mmole/Chromium/Copper/Manganese /Zinc 1 ml/ Multivitamins/Vitamin C 10 ml/ Amino Acids 1,052.1552 mls @ 42 mls/ hr IV .Q24H [facility] Stop: 04/10/17 17:59 Lorazepam (Ativan) 0.5 mg IVP Q3H PRN PRN Reason: Anxiety Last Admin: 04/09/17 03:19 Dose: 0.5 mg Metoclopramide HCl (Reglan) 10 mg IVP Q12 [facility] Last Admin: 04/09/17 10:25 Dose: 10 mg Morphine Sulfate (Morphine) 4 mg IVP Q4 PRN PRN Reason: Pain, severe (8-10) Last Admin: 04/09/17 01:25 Dose: 4 mg Ondansetron HCl (Zofran Inj) 4 mg IVP Q6H PRN PRN Reason: Nausea/Vomiting Pantoprazole Sodium (Protonix Inj) 40 mg IVP DAILY [facility] Last Admin: 04/09/17 10:21 Dose: 40 mg Saccharomyces Boulardii (Florastor) 250 mg PO BID [facility] Last Admin: 04/09/17 10:19 Dose: Not Given Thiamine HCl (Vitamin B1 Tab) 100 mg PO DAILY [facility] Last Admin: 04/09/17 10:20 Dose: Not Given Physical Exam - Constitutional Appears: In Acute Distress, Agitated, Confused - Head Exam Head Exam: ATRAUMATIC, NORMOCEPHALIC - Eye Exam Eye Exam: Normal appearance - ENT Exam ENT Exam: Mucous Membranes Moist - Respiratory Exam Respiratory Exam: Clear to Auscultation Bilateral, NORMAL BREATHING PATTERN. absent: Rhonchi, Wheezes, Respiratory Distress - Cardiovascular Exam Cardiovascular Exam: REGULAR RHYTHM, +S1, +S2 - GI/Abdominal Exam GI & Abdominal Exam: Distended, Firm, Hypoactive Bowel Sounds - Rectal Exam Rectal Exam: NORMAL INSPECTION. absent: Black Stool, Bloody Stool, Fecal Impaction - Extremities Exam Extremities exam: Negative for: joint swelling, pedal edema - Neurological Exam Neurological exam: Altered - Psychiatric Exam Additional comments: could not assess - Skin Skin Exam: Dry, Intact, Normal Color, Warm Results - Vital Signs Recent Vital Signs: Last Vital Signs Temp 97.7 F 04/09/17 00:00 Pulse 133 H 04/09/17 02:00 Resp 47 H 04/09/17 02:00 BP 116/74 04/09/17 01:53 Pulse Ox 100 04/09/17 02:00 - Labs Result Diagrams: 04/09/17 06:24 04/09/17 06:19 Labs: Laboratory Results - last 24 hr 04/08/17 04/08/17 04/08/17 11:49 12:09 12:45 WBC RBC Hgb Hct MCV MCH MCHC RDW Plt Count MPV Neut % (Auto) Lymph % (Auto) [place] % (Auto) Eos % (Auto) Baso % (Auto) Neut # Lymph # [place] # Eos # Baso # Neutrophils % (Manual) Band Neutrophils % Lymphocytes % (Manual) Monocytes % (Manual) Toxic Granulation Platelet Estimate Large Platelets Giant Platelets Polychromasia Hypochromasia (manual) Poikilocytosis (manual Anisocytosis (manual) Ovalocytes [place] Cells PT INR APTT Puncture Site pCO2 pO2 HCO3 ABG pH ABG Total CO2 ABG O2 Saturation ABG Base Excess Daniel Test ABG Potassium A-a O2 Difference Respiratory Index Sodium Chloride Glucose Lactate Liter Flow FiO2 Potassium Carbon Dioxide Anion Gap BUN Creatinine Est GFR ( Amer) Est GFR (Non-Af Amer) POC Glucose (mg/dL) Random Glucose Lactic Acid Calcium Phosphorus 4.8 H Magnesium 1.6 Total Bilirubin AST ALT Alkaline Phosphatase Lactate Dehydrogenase 648 H Total Protein Albumin Globulin Albumin/Globulin Ratio Ceruloplasmin 27 Procalcitonin Arterial Blood Potassium Urine Color Urine Clarity Urine pH Ur Specific [place] Urine Protein Urine Glucose (UA) Urine Ketones Urine Blood Urine Nitrate Urine Bilirubin Urine Urobilinogen Ur Leukocyte Esterase Urine WBC (Auto) Urine RBC (Auto) Ur Squamous Epith Cells Urine Bacteria U Random Total Protein Ur Random Sodium Urine Chloride Ur L.pneumophila Ag Negative 04/08/17 04/08/17 04/08/17 12:45 12:45 12:51 WBC RBC Hgb Hct MCV MCH MCHC RDW Plt Count MPV Neut % (Auto) Lymph % (Auto) [place] % (Auto) Eos % (Auto) Baso % (Auto) Neut # Lymph # [place] # Eos # Baso # Neutrophils % (Manual) Band Neutrophils % Lymphocytes % (Manual) Monocytes % (Manual) Toxic Granulation Platelet Estimate Large Platelets Giant Platelets Polychromasia Hypochromasia (manual) Poikilocytosis (manual Anisocytosis (manual) Ovalocytes [place] Cells PT 21.6 H INR 1.9 APTT 30 Puncture Site Rra pCO2 24 L pO2 148 H HCO3 22.9 ABG pH 7.50 H ABG Total CO2 19.4 L ABG O2 Saturation 99.4 H ABG Base Excess -2.7 L Daniel Test Pos ABG Potassium 3.2 L A-a O2 Difference 22.0 Respiratory Index 0.1 Sodium 140.0 Chloride 113.0 H Glucose 104 Lactate 1.0 Liter Flow 2.0 FiO2 28.0 Potassium Carbon Dioxide Anion Gap BUN Creatinine Est GFR ( Amer) Est GFR (Non-Af Amer) POC Glucose (mg/dL) Random Glucose Lactic Acid Calcium Phosphorus Magnesium Total Bilirubin AST ALT Alkaline Phosphatase Lactate Dehydrogenase Total Protein Albumin Globulin Albumin/Globulin Ratio Ceruloplasmin Procalcitonin 3.66 H Arterial Blood Potassium 3.2 L Urine Color Urine Clarity Urine pH Ur Specific [place] Urine Protein Urine Glucose (UA) Urine Ketones Urine Blood Urine Nitrate Urine Bilirubin Urine Urobilinogen Ur Leukocyte Esterase Urine WBC (Auto) Urine RBC (Auto) Ur Squamous Epith Cells Urine Bacteria U Random Total Protein Ur Random Sodium Urine Chloride Ur L.pneumophila Ag 04/08/17 04/08/17 04/08/17 13:06 15:00 15:32 WBC RBC Hgb Hct MCV MCH MCHC RDW Plt Count MPV Neut % (Auto) Lymph % (Auto) [place] % (Auto) Eos % (Auto) Baso % (Auto) Neut # Lymph # [place] # Eos # Baso # Neutrophils % (Manual) Band Neutrophils % Lymphocytes % (Manual) Monocytes % (Manual) Toxic Granulation Platelet Estimate Large Platelets Giant Platelets Polychromasia Hypochromasia (manual) Poikilocytosis (manual Anisocytosis (manual) Ovalocytes [place]elia Cells PT INR APTT Puncture Site pCO2 pO2 HCO3 ABG pH ABG Total CO2 ABG O2 Saturation ABG Base Excess Daniel Test ABG Potassium A-a O2 Difference Respiratory Index Sodium Chloride Glucose Lactate Liter Flow FiO2 Potassium Carbon Dioxide Anion Gap BUN Creatinine Est GFR ( Amer) Est GFR (Non-Af Amer) POC Glucose (mg/dL) Random Glucose Lactic Acid Calcium Phosphorus Magnesium Total Bilirubin AST ALT Alkaline Phosphatase Lactate Dehydrogenase Total Protein Albumin Globulin Albumin/Globulin Ratio Ceruloplasmin Procalcitonin Arterial Blood Potassium Urine Color [place] Urine Clarity Hazy Urine pH 5.0 Ur Specific [place] 1.030 Urine Protein 2+ H Urine Glucose (UA) Normal Urine Ketones Trace Urine Blood 1+ H Urine Nitrate Negative Urine Bilirubin Negative Urine Urobilinogen Normal Ur Leukocyte Esterase 1+ H Urine WBC (Auto) 23 H Urine RBC (Auto) 5 H Ur Squamous Epith Cells 7 H Urine Bacteria Rare U Random Total Protein 41.0 H Ur Random Sodium Urine Chloride 17 L Ur L.pneumophila Ag 04/08/17 04/08/17 04/08/17 15:32 16:41 19:10 WBC 37.4 H* RBC 3.54 L Hgb 9.6 L Hct 29.1 L MCV 82.4 MCH 27.0 MCHC 32.8 L RDW 13.7 Plt Count 754 H MPV 7.6 Neut % (Auto) 88.4 H Lymph % (Auto) 2.2 L [place] % (Auto) 8.0 Eos % (Auto) 0.0 Baso % (Auto) 1.4 Neut # 33.1 H Lymph # 0.8 L [place] # 3.0 H Eos # 0.0 Baso # 0.5 H Neutrophils % (Manual) 92 H Band Neutrophils % 1 Lymphocytes % (Manual) 3 L Monocytes % (Manual) 4 Toxic Granulation Platelet Estimate Markedly increased H Large Platelets Giant Platelets Polychromasia Hypochromasia (manual) Poikilocytosis (manual Anisocytosis (manual) Ovalocytes [place] Cells PT INR APTT Puncture Site pCO2 pO2 HCO3 ABG pH ABG Total CO2 ABG O2 Saturation ABG Base Excess Daniel Test ABG Potassium A-a O2 Difference Respiratory Index Sodium Chloride Glucose Lactate Liter Flow FiO2 Potassium Carbon Dioxide Anion Gap BUN Creatinine Est GFR ( Amer) Est GFR (Non-Af Amer) POC Glucose (mg/dL) 136 H Random Glucose Lactic Acid Calcium Phosphorus Magnesium Total Bilirubin AST ALT Alkaline Phosphatase Lactate Dehydrogenase Total Protein Albumin Globulin Albumin/Globulin Ratio Ceruloplasmin Procalcitonin Arterial Blood Potassium Urine Color Urine Clarity Urine pH Ur Specific [place] Urine Protein Urine Glucose (UA) Urine Ketones Urine Blood Urine Nitrate Urine Bilirubin Urine Urobilinogen Ur Leukocyte Esterase Urine WBC (Auto) Urine RBC (Auto) Ur Squamous Epith Cells Urine Bacteria U Random Total Protein Cancelled Ur Random Sodium 7 Urine Chloride Ur L.pneumophila Ag 04/08/17 04/08/17 04/09/17 19:10 19:12 02:09 WBC RBC Hgb Hct MCV MCH MCHC RDW Plt Count MPV Neut % (Auto) Lymph % (Auto) [place] % (Auto) Eos % (Auto) Baso % (Auto) Neut # Lymph # [place] # Eos # Baso # Neutrophils % (Manual) Band Neutrophils % Lymphocytes % (Manual) Monocytes % (Manual) Toxic Granulation Platelet Estimate Large Platelets Giant Platelets Polychromasia Hypochromasia (manual) Poikilocytosis (manual Anisocytosis (manual) Ovalocytes [place] Cells PT INR APTT Puncture Site pCO2 pO2 HCO3 ABG pH ABG Total CO2 ABG O2 Saturation ABG Base Excess Daniel Test ABG Potassium A-a O2 Difference Respiratory Index Sodium 134 Chloride 105 Glucose Lactate Liter Flow FiO2 Potassium 3.9 Carbon Dioxide 19 L Anion Gap 14 BUN 15 Creatinine 1.7 H Est GFR ( Amer) 42 Est GFR (Non-Af Amer) 34 POC Glucose (mg/dL) 126 H Random Glucose 122 H Lactic Acid 1.3 Calcium 7.9 L Phosphorus 5.6 H Magnesium 1.6 Total Bilirubin 0.5 AST 22 ALT 27 Alkaline Phosphatase 103 Lactate Dehydrogenase Total Protein 6.8 Albumin 3.0 L Globulin 3.7 Albumin/Globulin Ratio 0.8 L Ceruloplasmin Procalcitonin Arterial Blood Potassium Urine Color Urine Clarity Urine pH Ur Specific [place] Urine Protein Urine Glucose (UA) Urine Ketones Urine Blood Urine Nitrate Urine Bilirubin Urine Urobilinogen Ur Leukocyte Esterase Urine WBC (Auto) Urine RBC (Auto) Ur Squamous Epith Cells Urine Bacteria U Random Total Protein Ur Random Sodium Urine Chloride Ur L.pneumophila Ag 04/09/17 04/09/17 04/09/17 05:27 06:19 06:19 WBC RBC Hgb Hct MCV MCH MCHC RDW Plt Count MPV Neut % (Auto) Lymph % (Auto) [place] % (Auto) Eos % (Auto) Baso % (Auto) Neut # Lymph # [place] # Eos # Baso # Neutrophils % (Manual) Band Neutrophils % Lymphocytes % (Manual) Monocytes % (Manual) Toxic Granulation Platelet Estimate Large Platelets Giant Platelets Polychromasia Hypochromasia (manual) Poikilocytosis (manual Anisocytosis (manual) Ovalocytes [place] Cells PT INR APTT Puncture Site pCO2 pO2 HCO3 ABG pH ABG Total CO2 ABG O2 Saturation ABG Base Excess Daniel Test ABG Potassium A-a O2 Difference Respiratory Index Sodium 136 Chloride 105 Glucose Lactate Liter Flow FiO2 Potassium 4.3 Carbon Dioxide 18 L Anion Gap 18 BUN 24 H Creatinine 3.0 H Est GFR ( Amer) 22 Est GFR (Non-Af Amer) 18 POC Glucose (mg/dL) 130 H Random Glucose 132 H Lactic Acid 1.1 Calcium 8.0 L Phosphorus 5.7 H Magnesium 1.8 Total Bilirubin 0.9 AST 27 ALT 25 Alkaline Phosphatase 119 Lactate Dehydrogenase Total Protein 6.8 Albumin 3.0 L Globulin 3.8 Albumin/Globulin Ratio 0.8 L Ceruloplasmin Procalcitonin Arterial Blood Potassium Urine Color Urine Clarity Urine pH Ur Specific [place] Urine Protein Urine Glucose (UA) Urine Ketones Urine Blood Urine Nitrate Urine Bilirubin Urine Urobilinogen Ur Leukocyte Esterase Urine WBC (Auto) Urine RBC (Auto) Ur Squamous Epith Cells Urine Bacteria U Random Total Protein Ur Random Sodium Urine Chloride Ur L.pneumophila Ag 04/09/17 06:24 WBC 33.3 H RBC 3.37 L Hgb 9.1 L Hct 28.1 L MCV 83.2 MCH 27.1 MCHC 32.5 L RDW 13.9 Plt Count 726 H MPV 8.2 Neut % (Auto) 88.4 H Lymph % (Auto) 2.4 L [place] % (Auto) 9.0 Eos % (Auto) 0.0 Baso % (Auto) 0.2 Neut # 29.5 H Lymph # 0.8 L [place] # 3.0 H Eos # 0.0 Baso # 0.1 Neutrophils % (Manual) 85 H Band Neutrophils % 4 H Lymphocytes % (Manual) 3 L Monocytes % (Manual) 8 Toxic Granulation Present Platelet Estimate Increased H Large Platelets Present Giant Platelets Present Polychromasia Slight Hypochromasia (manual) Slight Poikilocytosis (manual Slight Anisocytosis (manual) Slight Ovalocytes Slight [place] Cells Slight PT INR APTT Puncture Site pCO2 pO2 HCO3 ABG pH ABG Total CO2 ABG O2 Saturation ABG Base Excess Daniel Test ABG Potassium A-a O2 Difference Respiratory Index Sodium Chloride Glucose Lactate Liter Flow FiO2 Potassium Carbon Dioxide Anion Gap BUN Creatinine Est GFR ( Amer) Est GFR (Non-Af Amer) POC Glucose (mg/dL) Random Glucose Lactic Acid Calcium Phosphorus Magnesium Total Bilirubin AST ALT Alkaline Phosphatase Lactate Dehydrogenase Total Protein Albumin Globulin Albumin/Globulin Ratio Ceruloplasmin Procalcitonin Arterial Blood Potassium Urine Color Urine Clarity Urine pH Ur Specific [place] Urine Protein Urine Glucose (UA) Urine Ketones Urine Blood Urine Nitrate Urine Bilirubin Urine Urobilinogen Ur Leukocyte Esterase Urine WBC (Auto) Urine RBC (Auto) Ur Squamous Epith Cells Urine Bacteria U Random Total Protein Ur Random Sodium Urine Chloride Ur L.pneumophila Ag Assessment & Plan - Assessment and Plan (Free Text) Assessment: Alondra Rivera is a 37F w/ hx of Schizophrenia, Mental disability who presents to the hospital due to abd pain diarrhea. She was found to have acute pancreatitis and severe gastric distention with retained food, etiology gastroparesis vs small bowel obstruction?, which markedly improved after NG placement. Subsequently, her condition again worsened after a few days, after resuming diet. She also has presumed sepsis of unknown source and renal failure. Acute pancreatitis (improving), etiology unknown, r/o hyper TG, IGG4; DDx: medication induced? Loculated fluid collection, etiology unknown, abscess vs psuedocyst vs malignancy Marked stomach distention etiology unclear; distal obstruction vs ilieus vs gastroparesis ; rule out abd compartment syndrome Worsening Leukocytosis w/ SIRS, resumed infectious etiology Renal failure Plan: -recommend urgent placement of NG tube with suction to decompress stomach -pt may have abd compartment pressure, would check a bladder pressure -continue antibiotics as per ID -if pt is stable could possible assess fluid collection via EUS on 04/15/16 -continue supportive care -hold feeds -hgb stable, with neg rectal exam -if hgb drop, will consider an EGD for reeval -check IGG4 -check TG levels -if renal function improves consider MRA, MRV -continue PPI daily -consider adding flagyl for better anerobic coverage -keep hgb > 7 D/w Dr. Singh <Samantha DANIELLE,Jaymie - Last Filed: 04/09/17 14:06> Meds - Medications Medications: Current Medications Acetaminophen (Tylenol 325 Mg Supp) 325 mg OH Q4 PRN PRN Reason: Fever >100.4 F Last Admin: 03/30/17 08:15 Dose: 325 mg Ascorbic Acid (Vitamin C 500 Mg Tab) 500 mg PO DAILY AGUSTIN Last Admin: 04/09/17 10:20 Dose: Not Given Haloperidol Lactate (Haldol) 1 mg IVP BID PRN PRN Reason: Agitation Last Admin: 04/09/17 00:13 Dose: 1 mg Piperacillin Sod/Tazobactam Sod (Zosyn 3.375 Gm Iv Premix) 3.375 gm in 50 mls @ 100 mls/hr IVPB Q8H [facility] Last Admin: 04/09/17 10:26 Dose: 100 mls/hr Vancomycin/Sodium Chloride (Vancomycin 1 Gm/Ns 200 Ml) 1 gm in 200 mls @ 133.333 mls/hr IVPB Q24H [facility] Stop: 04/13/17 18:31 Last Admin: 04/08/17 19:00 Dose: 133.333 mls/hr Diltiazem HCl 125 mg/ Sodium (Chloride) 125 mls @ 5 mls/hr IV .Q24H PRN; 5 MG/ HR PRN Reason: Protocol Last Titration: 04/09/17 08:33 Dose: 15 mg/hr, 15 mls/hr Sodium Chloride 40 meq/Potassium Chloride 30 meq/Magnesium Sulfate 6 meq/ Calcium Gluconate 4.5 meq/Potassium Phosphate 15 mmole/Chromium/Copper/Manganese /Zinc 1 ml/ Multivitamins/Vitamin C 10 ml/ Amino Acids 1,052.1552 mls @ 42 mls/ hr IV .Q24H [facility] Stop: 04/10/17 17:59 Fat Emulsion Intravenous (Intralipid 20%) 500 mls @ 50 mls/hr IV TuThSa@1800 AGUSTIN Sodium Chloride (Sodium Chloride 0.9%) 1,000 mls @ 100 mls/hr IV .Q10H [facility] Lorazepam (Ativan) 0.5 mg IVP Q3H PRN PRN Reason: Anxiety Last Admin: 04/09/17 03:19 Dose: 0.5 mg Metoclopramide HCl (Reglan) 10 mg IVP Q12 [facility] Last Admin: 04/09/17 10:25 Dose: 10 mg Morphine Sulfate (Morphine) 4 mg IVP Q4 PRN PRN Reason: Pain, severe (8-10) Last Admin: 04/09/17 01:25 Dose: 4 mg Ondansetron HCl (Zofran Inj) 4 mg IVP Q6H PRN PRN Reason: Nausea/Vomiting Pantoprazole Sodium (Protonix Inj) 40 mg IVP DAILY [facility] Last Admin: 04/09/17 10:21 Dose: 40 mg Saccharomyces Boulardii (Florastor) 250 mg PO BID [facility] Last Admin: 04/09/17 10:19 Dose: Not Given Thiamine HCl (Vitamin B1 Tab) 100 mg PO DAILY [facility] Last Admin: 04/09/17 10:20 Dose: Not Given Results - Vital Signs Recent Vital Signs: Last Vital Signs Temp 97.7 F 04/09/17 00:00 Pulse 118 H 04/09/17 11:53 Resp 38 H 04/09/17 11:53 BP 114/76 04/09/17 11:53 Pulse Ox 99 04/09/17 11:53 - Labs Result Diagrams: 04/09/17 06:24 04/09/17 06:19 Labs: Laboratory Results - last 24 hr 04/08/17 04/08/17 04/08/17 08:19 11:49 12:09 WBC RBC Hgb Hct MCV MCH MCHC RDW Plt Count MPV Neut % (Auto) Lymph % (Auto) [place] % (Auto) Eos % (Auto) Baso % (Auto) Neut # Lymph # [place] # Eos # Baso # Neutrophils % (Manual) Band Neutrophils % Lymphocytes % (Manual) Monocytes % (Manual) Toxic Granulation Platelet Estimate Large Platelets Giant Platelets Polychromasia Hypochromasia (manual) Poikilocytosis (manual Anisocytosis (manual) Ovalocytes [place] Cells Sodium Potassium Chloride Carbon Dioxide Anion Gap BUN Creatinine Est GFR ( Amer) Est GFR (Non-Af Amer) POC Glucose (mg/dL) Random Glucose Lactic Acid Calcium Ionized Calcium 5.5 Phosphorus Magnesium Total Bilirubin AST ALT Alkaline Phosphatase Total Protein Albumin Globulin Albumin/Globulin Ratio Ceruloplasmin 27 Procalcitonin U Random Total Protein Ur Random Sodium Urine Chloride Ur L.pneumophila Ag Negative 04/08/17 04/08/17 04/08/17 12:45 15:00 15:32 WBC RBC Hgb Hct MCV MCH MCHC RDW Plt Count MPV Neut % (Auto) Lymph % (Auto) [place] % (Auto) Eos % (Auto) Baso % (Auto) Neut # Lymph # [place] # Eos # Baso # Neutrophils % (Manual) Band Neutrophils % Lymphocytes % (Manual) Monocytes % (Manual) Toxic Granulation Platelet Estimate Large Platelets Giant Platelets Polychromasia Hypochromasia (manual) Poikilocytosis (manual Anisocytosis (manual) Ovalocytes [place] Cells Sodium Potassium Chloride Carbon Dioxide Anion Gap BUN Creatinine Est GFR ( Amer) Est GFR (Non-Af Amer) POC Glucose (mg/dL) Random Glucose Lactic Acid Calcium Ionized Calcium Phosphorus Magnesium Total Bilirubin AST ALT Alkaline Phosphatase Total Protein Albumin Globulin Albumin/Globulin Ratio Ceruloplasmin Procalcitonin 3.66 H U Random Total Protein 41.0 H Ur Random Sodium Urine Chloride 17 L Ur L.pneumophila Ag 04/08/17 04/08/17 04/08/17 15:32 16:41 19:10 WBC 37.4 H* RBC 3.54 L Hgb 9.6 L Hct 29.1 L MCV 82.4 MCH 27.0 MCHC 32.8 L RDW 13.7 Plt Count 754 H MPV 7.6 Neut % (Auto) 88.4 H Lymph % (Auto) 2.2 L [place] % (Auto) 8.0 Eos % (Auto) 0.0 Baso % (Auto) 1.4 Neut # 33.1 H Lymph # 0.8 L [place] # 3.0 H Eos # 0.0 Baso # 0.5 H Neutrophils % (Manual) 92 H Band Neutrophils % 1 Lymphocytes % (Manual) 3 L Monocytes % (Manual) 4 Toxic Granulation Platelet Estimate Markedly increased H Large Platelets Giant Platelets Polychromasia Hypochromasia (manual) Poikilocytosis (manual Anisocytosis (manual) Ovalocytes [place] Cells Sodium Potassium Chloride Carbon Dioxide Anion Gap BUN Creatinine Est GFR ( Amer) Est GFR (Non-Af Amer) POC Glucose (mg/dL) 136 H Random Glucose Lactic Acid Calcium Ionized Calcium Phosphorus Magnesium Total Bilirubin AST ALT Alkaline Phosphatase Total Protein Albumin Globulin Albumin/Globulin Ratio Ceruloplasmin Procalcitonin U Random Total Protein Cancelled Ur Random Sodium 7 Urine Chloride Ur L.pneumophila Ag 04/08/17 04/08/17 04/09/17 19:10 19:12 02:09 WBC RBC Hgb Hct MCV MCH MCHC RDW Plt Count MPV Neut % (Auto) Lymph % (Auto) [place] % (Auto) Eos % (Auto) Baso % (Auto) Neut # Lymph # [place] # Eos # Baso # Neutrophils % (Manual) Band Neutrophils % Lymphocytes % (Manual) Monocytes % (Manual) Toxic Granulation Platelet Estimate Large Platelets Giant Platelets Polychromasia Hypochromasia (manual) Poikilocytosis (manual Anisocytosis (manual) Ovalocytes [place] Cells Sodium 134 Potassium 3.9 Chloride 105 Carbon Dioxide 19 L Anion Gap 14 BUN 15 Creatinine 1.7 H Est GFR ( Amer) 42 Est GFR (Non-Af Amer) 34 POC Glucose (mg/dL) 126 H Random Glucose 122 H Lactic Acid 1.3 Calcium 7.9 L Ionized Calcium Phosphorus 5.6 H Magnesium 1.6 Total Bilirubin 0.5 AST 22 ALT 27 Alkaline Phosphatase 103 Total Protein 6.8 Albumin 3.0 L Globulin 3.7 Albumin/Globulin Ratio 0.8 L Ceruloplasmin Procalcitonin U Random Total Protein Ur Random Sodium Urine Chloride Ur L.pneumophila Ag 04/09/17 04/09/17 04/09/17 05:27 06:19 06:19 WBC RBC Hgb Hct MCV MCH MCHC RDW Plt Count MPV Neut % (Auto) Lymph % (Auto) [place] % (Auto) Eos % (Auto) Baso % (Auto) Neut # Lymph # [place] # Eos # Baso # Neutrophils % (Manual) Band Neutrophils % Lymphocytes % (Manual) Monocytes % (Manual) Toxic Granulation Platelet Estimate Large Platelets Giant Platelets Polychromasia Hypochromasia (manual) Poikilocytosis (manual Anisocytosis (manual) Ovalocytes [place] Cells Sodium 136 Potassium 4.3 Chloride 105 Carbon Dioxide 18 L Anion Gap 18 BUN 24 H Creatinine 3.0 H Est GFR ( Amer) 22 Est GFR (Non-Af Amer) 18 POC Glucose (mg/dL) 130 H Random Glucose 132 H Lactic Acid 1.1 Calcium 8.0 L Ionized Calcium Phosphorus 5.7 H Magnesium 1.8 Total Bilirubin 0.9 AST 27 ALT 25 Alkaline Phosphatase 119 Total Protein 6.8 Albumin 3.0 L Globulin 3.8 Albumin/Globulin Ratio 0.8 L Ceruloplasmin Procalcitonin U Random Total Protein Ur Random Sodium Urine Chloride Ur L.pneumophila Ag 04/09/17 04/09/17 06:24 11:54 WBC 33.3 H RBC 3.37 L Hgb 9.1 L Hct 28.1 L MCV 83.2 MCH 27.1 MCHC 32.5 L RDW 13.9 Plt Count 726 H MPV 8.2 Neut % (Auto) 88.4 H Lymph % (Auto) 2.4 L [place] % (Auto) 9.0 Eos % (Auto) 0.0 Baso % (Auto) 0.2 Neut # 29.5 H Lymph # 0.8 L [place] # 3.0 H Eos # 0.0 Baso # 0.1 Neutrophils % (Manual) 85 H Band Neutrophils % 4 H Lymphocytes % (Manual) 3 L Monocytes % (Manual) 8 Toxic Granulation Present Platelet Estimate Increased H Large Platelets Present Giant Platelets Present Polychromasia Slight Hypochromasia (manual) Slight Poikilocytosis (manual Slight Anisocytosis (manual) Slight Ovalocytes Slight [place] Cells Slight Sodium Potassium Chloride Carbon Dioxide Anion Gap BUN Creatinine Est GFR ( Amer) Est GFR (Non-Af Amer) POC Glucose (mg/dL) 130 H Random Glucose Lactic Acid Calcium Ionized Calcium Phosphorus Magnesium Total Bilirubin AST ALT Alkaline Phosphatase Total Protein Albumin Globulin Albumin/Globulin Ratio Ceruloplasmin Procalcitonin U Random Total Protein Ur Random Sodium Urine Chloride Ur L.pneumophila Ag Attending/Attestation - Attestation I have personally seen and examined this patient.: Yes I have fully participated in the care of the patient.: Yes I have reviewed all pertinent clinical information: Yes Notes (Text): 04/09/17 13:55 Patient seen with GI fellow in MICU. Discussed with surgical service and freelance photographer. GI has been requested to see patient for a second opinion by surgical service and MICU. In a nutshell 37 year old F with ?Schizophrenia, Mental retardation on seroquel and SSRI at home which were abruptly stopped upon coming to hospital 8 days ago for abdominal distension and constipation and leukocytosis and lactic acidosis and Tmax of 101. Hospital course in past 8 days- she was treated for UTI, gastroparesis and had an EGD that showed food bezoar in antrum and fundus. EGD was done till fourth portion of duodenum and no pyloric obstruction found. She was also found to have elevated lipase and was treated with IVF. NGT was placed for ileus/ gastric distension and 2 lts fluid was aspirated. She was started on CLD that she tolerated. While on floor her leukocytosis got worse and new onset azotemia started. Repeat CTAP without IV/po contrast shows loculated fluid collection ? pseudocyst. IR guided fluid aspiration not amenable as per MICU. Concern for worsening complicated pancreatitis with ileus and gastric distenson. Will start two IV lines and give 250 cc/hr fluid and place NGT again if possible beyond pylorus. Check IgG4 levels and TG. When renal function improves will get repeat CT with contrast. Antibiotics for broad coverage including E coli/ klebsiella coverage. Hemodynamically stable. Continue daily PPI. Will consider EUS guided fluid aspiration if clinically not improving. Blood and urine cultures daily. CXR with ? infiltrate but no change since baseline. Will follow closely patient with you.
--- NOTE | 2017-04-09 11:30 | CP.PCM.PN ---
Subjective - Date & Time of Evaluation Date of Evaluation: 04/09/17 Time of Evaluation: 11:28 - Subjective Subjective: moaning on 1:1 observation on clinimix minimal UOP no distress ROS- unable to obtain due to AMS Objective - Vital Signs/Intake and Output Vital Signs (last 24 hours): Temp Pulse Resp BP Pulse Ox 97.7 F 133 H 47 H 116/74 100 04/09/17 00:00 04/09/17 02:00 04/09/17 02:00 04/09/17 01:53 04/09/17 02:00 Intake and Output: 04/09/17 04/09/17 06:59 18:59 Intake Total 1335 322 Output Total 30 Balance 1335 292 - Medications Medications: Current Medications Acetaminophen (Tylenol 325 Mg Supp) 325 mg DC Q4 PRN PRN Reason: Fever >100.4 F Last Admin: 03/30/17 08:15 Dose: 325 mg Acetaminophen (Tylenol 650 Mg Supp) 650 mg DC Q6 [facility] Stop: 04/09/17 12:16 Last Admin: 04/09/17 06:55 Dose: 650 mg Ascorbic Acid (Vitamin C 500 Mg Tab) 500 mg PO DAILY [facility] Last Admin: 04/09/17 10:20 Dose: Not Given Haloperidol Lactate (Haldol) 1 mg IVP BID PRN PRN Reason: Agitation Last Admin: 04/09/17 00:13 Dose: 1 mg Piperacillin Sod/Tazobactam Sod (Zosyn 3.375 Gm Iv Premix) 3.375 gm in 50 mls @ 100 mls/hr IVPB Q8H [facility] Last Admin: 04/09/17 10:26 Dose: 100 mls/hr Fat Emulsion Intravenous (Intralipid 20%) 500 mls @ 50 mls/hr IV MWF@1800 AGUSTIN Vancomycin/Sodium Chloride (Vancomycin 1 Gm/Ns 200 Ml) 1 gm in 200 mls @ 133.333 mls/hr IVPB Q24H [facility] Stop: 04/13/17 18:31 Last Admin: 04/08/17 19:00 Dose: 133.333 mls/hr Diltiazem HCl 125 mg/ Sodium (Chloride) 125 mls @ 5 mls/hr IV .Q24H PRN; 5 MG/ HR PRN Reason: Protocol Last Titration: 04/09/17 08:33 Dose: 15 mg/hr, 15 mls/hr Sodium Chloride (Sodium Chloride 0.9%) 1,000 mls @ 50 mls/hr IV .Q20H [facility] Last Admin: 04/09/17 00:00 Dose: 50 mls/hr Sodium Chloride 40 meq/Potassium Chloride 30 meq/Magnesium Sulfate 6 meq/ Calcium Gluconate 4.5 meq/Potassium Phosphate 15 mmole/Chromium/Copper/Manganese /Zinc 1 ml/ Multivitamins/Vitamin C 10 ml/ Amino Acids 1,052.1552 mls @ 42 mls/ hr IV .Q24H [facility] Stop: 04/10/17 17:59 Lorazepam (Ativan) 0.5 mg IVP Q3H PRN PRN Reason: Anxiety Last Admin: 04/09/17 03:19 Dose: 0.5 mg Metoclopramide HCl (Reglan) 10 mg IVP Q12 [facility] Last Admin: 04/09/17 10:25 Dose: 10 mg Morphine Sulfate (Morphine) 4 mg IVP Q4 PRN PRN Reason: Pain, severe (8-10) Last Admin: 04/09/17 01:25 Dose: 4 mg Ondansetron HCl (Zofran Inj) 4 mg IVP Q6H PRN PRN Reason: Nausea/Vomiting Pantoprazole Sodium (Protonix Inj) 40 mg IVP DAILY [facility] Last Admin: 04/09/17 10:21 Dose: 40 mg Saccharomyces Boulardii (Florastor) 250 mg PO BID [facility] Last Admin: 04/09/17 10:19 Dose: Not Given Thiamine HCl (Vitamin B1 Tab) 100 mg PO DAILY [facility] Last Admin: 04/09/17 10:20 Dose: Not Given - Labs Labs: 04/09/17 06:24 04/09/17 06:19 PT 21.6 SECONDS (9.7-12.2) H 04/08/17 12:45 INR 1.9 04/08/17 12:45 APTT 30 SECONDS (21-34) 04/08/17 12:45 - Constitutional Appears: Older Than Stated Age - Head Exam Head Exam: ATRAUMATIC, NORMOCEPHALIC - Eye Exam Eye Exam: EOMI - ENT Exam Additional comments: poor dentition - Neck Exam Neck Exam: absent: Lymphadenopathy - Respiratory Exam Respiratory Exam: Clear to Ausculation Bilateral. absent: Rhonchi, Wheezes - Cardiovascular Exam Cardiovascular Exam: Tachycardia, REGULAR RHYTHM - GI/Abdominal Exam GI & Abdominal Exam: Distended, Firm, Guarding, Hypoactive Bowel Sounds - Extremities Exam Extremities Exam: absent: Pedal Edema - Neurological Exam Neurological Exam: absent: Alert, Awake, Oriented x3 - Skin Skin Exam: Warm Assessment and Plan (1) Acute renal failure Status: Acute (2) Acute abdomen Status: Acute (3) Abdominal pain Status: Acute (4) SBO (small bowel obstruction) Status: Acute (5) Mental retardation Status: Acute (6) Schizophrenia Status: Acute - Assessment and Plan (Free Text) Plan: JIMBO- ATN in setting of abdominal pathology avoid high rate iv fluids consider NGT trail of lasix to see if UOP increases might need dialysis if renal function worsens discussed with icu attending
[2017-04-09] MEDS ORDERED: Sodium Chloride 0.9% 1,000 ML IV SCH ×2 (12:00→13:40)
--- NOTE | 2017-04-09 13:40 | CP.CCUPN ---
CCU Subjective - Physician Review Events Since Last Encounter (Free Text): 04/09/17 13:41 36-year-old female was transferred to ICUyesterday for tachycardia, hypotension and vomiting. 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 Patient also found to have leukocytosis with elevated pro calcitonin level. No surgical intervention as per surgery and IR was also consulted for fluid collection. Patient was seen by infectious disease and vancomycin was added. 2.5 L of fluid aspirated after NG tube was inserted. Patient was also seen by gastroenterology as a second opinion And nephrology for worsening creatinine. CCU Objective - Vital Signs / Intake & Output Vital Signs (Last 4 hours): Vital Signs Pulse Resp BP Pulse Ox 04/09/17 11:53 118 H 38 H 114/76 99 04/09/17 11:15 122 H 17 116/77 100 04/09/17 10:00 142 H 40 H 98 04/09/17 09:53 126 H 23 107/76 100 Intake and Output (Last 8hrs): Intake & Output 04/08/17 04/09/17 04/09/17 22:59 06:59 14:59 Intake Total 519 816 643 Output Total 30 Balance 519 816 613 Weight 149 lb Intake: IV 10 118 Intake, IV Amount 469 806 525 Left Antecubital 400 250 Left Distal Port 10 70 65 Left Hand 84 336 210 Right Antecubital 375 Oral 50 Output: Urine 30 Urethral (Tvoar) 30 - Physical Exam Head: Positive for: Atraumatic, Normocephalic. Negative for: Tenderness Pupils: Positive for: PERRL Extroacular Muscles: Positive for: EOMI Mouth: Positive for: Moist Mucous Membranes. Negative for: Dry, Drooling Nose (External): Positive for: Other (NGT in place) Nose (Internal): Positive for: Normal Inspection, Moist Neck: Positive for: Normal Range of Motion. Negative for: JVD, Lymphadenopathy Respiratory/Chest: Positive for: Clear to Auscultation. Negative for: Respiratory Distress, Accessory Muscle Use Cardiovascular: Positive for: Regular Rate and Rhythm, Normal S1, S2 Abdomen: Positive for: Normal Bowel Sounds. Negative for: Distention, Guarding Upper Extremity: Positive for: Normal Inspection, Normal ROM, Capillary Refill < 2s. Negative for: Edema Lower Extremity: Positive for: Normal Inspection. Negative for: Edema Neurological: Positive for: CN II-XII Intact Skin: Positive for: Warm, Pale Psychiatric: Positive for: Alert - Medications Active Medications: Active Medications Generic Name Dose Route Start Last Admin Trade Name Freq PRN Reason Stop Dose Admin Acetaminophen 325 mg 03/29/17 07:57 03/30/17 08:15 Tylenol 325 Mg Supp VT 325 mg Q4 PRN Administration Fever >100.4 F Ascorbic Acid 500 mg 04/08/17 12:30 04/09/17 10:20 Vitamin C 500 Mg Tab PO Not Given DAILY AGUSTIN Haloperidol Lactate 1 mg 03/29/17 18:47 04/09/17 00:13 Haldol IVP 1 mg BID PRN Administration Agitation Piperacillin Sod/Tazobactam Sod 3.375 gm in 50 mls @ 100 mls/hr 03/28/17 02: 30 04/09/17 10:26 Zosyn 3.375 Gm Iv Premix IVPB 100 mls/hr Q8H AGUSTIN Administration Vancomycin/Sodium Chloride 1 gm in 200 mls @ 133.333 mls/hr 04/08/17 18:30 19:00 Vancomycin 1 Gm/Ns 200 Ml IVPB 04/13/17 18:31 133.333 mls/hr Q24H AGUSTIN Administration Diltiazem HCl 125 mg/ Sodium 125 mls @ 5 mls/hr 04/08/17 20:05 04/09/17 08:33 Chloride IV 15 mg/hr .Q24H PRN 15 mls/hr Protocol Titration 5 MG/HR Sodium Chloride 40 meq/ 1,052.1552 mls @ 42 mls/hr 04/09/17 18:00 Potassium Chloride 30 meq/ IV 04/10/17 17:59 Magnesium Sulfate 6 meq/ .Q24H AGUSTIN Calcium Gluconate 4.5 meq/ Potassium Phosphate 15 mmole/ Chromium/Copper/Manganese/Zinc 1 ml/ Multivitamins/Vitamin C 10 ml/ Amino Acids Fat Emulsion Intravenous 500 mls @ 50 mls/hr 04/09/17 18:00 Intralipid 20% IV [id number] AGUSTIN Sodium Chloride 1,000 mls @ 100 mls/hr 04/09/17 13:40 Sodium Chloride 0.9% IV .Q10H AGUSTIN Lorazepam 0.5 mg 04/01/17 16:08 04/09/17 03:19 Ativan IVP 0.5 mg Q3H PRN Administration Anxiety Metoclopramide HCl 10 mg 04/03/17 22:00 04/09/17 10:25 Reglan IVP 10 mg Q12 AGUSTIN Administration Morphine Sulfate 4 mg 04/02/17 21:45 04/09/17 01:25 Morphine IVP 4 mg Q4 PRN Administration Pain, severe (8-10) Ondansetron HCl 4 mg 03/27/17 23:45 Zofran Inj IVP Q6H PRN Nausea/Vomiting Pantoprazole Sodium 40 mg 04/02/17 10:00 04/09/17 10:21 Protonix Inj IVP 40 mg DAILY AGUSTIN Administration Saccharomyces Boulardii 250 mg 04/08/17 18:00 04/09/17 10:19 Florastor PO Not Given BID AGUSTIN Thiamine HCl 100 mg 04/08/17 12:30 04/09/17 10:20 Vitamin B1 Tab PO Not Given DAILY [facility] - Patient Studies Lab Studies: Microbiology Studies 04/08/17 12:48 Urine Culture - Final Urine,Tovar No Growth (<1,000 CFU/ML) Lab Studies 04/09/17 04/09/17 04/09/17 Range/Units 11:54 06:24 06:19 WBC 33.3 H (4.8-10.8) K/uL RBC 3.37 L (3.80-5.20) Mil/uL Hgb 9.1 L (11.0-16.0) g/dL Hct 28.1 L (34.0-47.0) % MCV 83.2 (81.0-99.0) fL MCH 27.1 (27.0-31.0) pg MCHC 32.5 L (33.0-37.0) g/dL RDW 13.9 (11.5-14.5) % Plt Count 726 H (130-400) K/uL MPV 8.2 (7.2-11.7) fL Neut % (Auto) 88.4 H (50.0-75.0) % Lymph % (Auto) 2.4 L (20.0-40.0) % Jay % (Auto) 9.0 (0.0-10.0) % Eos % (Auto) 0.0 (0.0-4.0) % Baso % (Auto) 0.2 (0.0-2.0) % Neut # 29.5 H (1.8-7.0) K/uL Lymph # 0.8 L (1.0-4.3) K/uL Jay # 3.0 H (0.0-0.8) K/uL Eos # 0.0 (0.0-0.7) K/uL Baso # 0.1 (0.0-0.2) K/uL Neutrophils % (Manual) 85 H (50-75) % Band Neutrophils % 4 H (0-2) % Lymphocytes % (Manual) 3 L (20-40) % Monocytes % (Manual) 8 (0-10) % Toxic Granulation Present Platelet Estimate Increased H (NORMAL) Large Platelets Present Giant Platelets Present Polychromasia Slight Hypochromasia (manual) Slight Poikilocytosis (manual Slight Anisocytosis (manual) Slight Ovalocytes Slight Ofelia Cells Slight Sodium (132-148) mmol/L Potassium (3.6-5.2) mmol/L Chloride (98-107) mmol/L Carbon Dioxide (22-30) mmol/L Anion Gap (10-20) BUN (7-17) mg/dL Creatinine (0.7-1.2) mg/dL Est GFR ( Amer) Est GFR (Non-Af Amer) POC Glucose (mg/dL) 130 H (65-110) mg/dL Random Glucose (65-105) mg/dL Lactic Acid 1.1 (0.7-2.1) mmol/L Calcium (8.6-10.4) mg/dl Ionized Calcium (4.80-5.60) mg/dL Phosphorus (2.5-4.5) mg/dL Magnesium (1.6-2.3) mg/dL Total Bilirubin (0.2-1.3) mg/dL AST (14-36) U/L ALT (9-52) U/L Alkaline Phosphatase (38-126) U/L Total Protein (6.3-8.3) g/dL Albumin (3.5-5.0) g/dL Globulin (2.2-3.9) gm/dL Albumin/Globulin Ratio (1.0-2.1) Ceruloplasmin (18-53) mg/dL Procalcitonin (0.19-0.49) NG/ML U Random Total Protein (0.0-12.0) mg/dL Ur Random Sodium mmol/L Urine Chloride (32-290) mmol/L Ur L.pneumophila Ag (NEGATIVE) 04/09/17 04/09/17 04/09/17 Range/Units 06:19 05:27 02:09 WBC (4.8-10.8) K/uL RBC (3.80-5.20) Mil/uL Hgb (11.0-16.0) g/dL Hct (34.0-47.0) % MCV (81.0-99.0) fL MCH (27.0-31.0) pg MCHC (33.0-37.0) g/dL RDW (11.5-14.5) % Plt Count (130-400) K/uL MPV (7.2-11.7) fL Neut % (Auto) (50.0-75.0) % Lymph % (Auto) (20.0-40.0) % Jay % (Auto) (0.0-10.0) % Eos % (Auto) (0.0-4.0) % Baso % (Auto) (0.0-2.0) % Neut # (1.8-7.0) K/uL Lymph # (1.0-4.3) K/uL Jay # (0.0-0.8) K/uL Eos # (0.0-0.7) K/uL Baso # (0.0-0.2) K/uL Neutrophils % (Manual) (50-75) % Band Neutrophils % (0-2) % Lymphocytes % (Manual) (20-40) % Monocytes % (Manual) (0-10) % Toxic Granulation Platelet Estimate (NORMAL) Large Platelets Giant Platelets Polychromasia Hypochromasia (manual) Poikilocytosis (manual Anisocytosis (manual) Ovalocytes Ofelia Cells Sodium 136 (132-148) mmol/L Potassium 4.3 (3.6-5.2) mmol/L Chloride 105 (98-107) mmol/L Carbon Dioxide 18 L (22-30) mmol/L Anion Gap 18 (10-20) BUN 24 H (7-17) mg/dL Creatinine 3.0 H (0.7-1.2) mg/dL Est GFR ( Amer) 22 Est GFR (Non-Af Amer) 18 POC Glucose (mg/dL) 130 H 126 H (65-110) mg/dL Random Glucose 132 H (65-105) mg/dL Lactic Acid (0.7-2.1) mmol/L Calcium 8.0 L (8.6-10.4) mg/dl Ionized Calcium (4.80-5.60) mg/dL Phosphorus 5.7 H (2.5-4.5) mg/dL Magnesium 1.8 (1.6-2.3) mg/dL Total Bilirubin 0.9 (0.2-1.3) mg/dL AST 27 (14-36) U/L ALT 25 (9-52) U/L Alkaline Phosphatase 119 (38-126) U/L Total Protein 6.8 (6.3-8.3) g/dL Albumin 3.0 L (3.5-5.0) g/dL Globulin 3.8 (2.2-3.9) gm/dL Albumin/Globulin Ratio 0.8 L (1.0-2.1) Ceruloplasmin (18-53) mg/dL Procalcitonin (0.19-0.49) NG/ML U Random Total Protein (0.0-12.0) mg/dL Ur Random Sodium mmol/L Urine Chloride (32-290) mmol/L Ur L.pneumophila Ag (NEGATIVE) 04/08/17 04/08/17 04/08/17 Range/Units 19:12 19:10 19:10 WBC 37.4 H* (4.8-10.8) K/uL RBC 3.54 L (3.80-5.20) Mil/uL Hgb 9.6 L (11.0-16.0) g/dL Hct 29.1 L (34.0-47.0) % MCV 82.4 (81.0-99.0) fL MCH 27.0 (27.0-31.0) pg MCHC 32.8 L (33.0-37.0) g/dL RDW 13.7 (11.5-14.5) % Plt Count 754 H (130-400) K/uL MPV 7.6 (7.2-11.7) fL Neut % (Auto) 88.4 H (50.0-75.0) % Lymph % (Auto) 2.2 L (20.0-40.0) % Jay % (Auto) 8.0 (0.0-10.0) % Eos % (Auto) 0.0 (0.0-4.0) % Baso % (Auto) 1.4 (0.0-2.0) % Neut # 33.1 H (1.8-7.0) K/uL Lymph # 0.8 L (1.0-4.3) K/uL Jay # 3.0 H (0.0-0.8) K/uL Eos # 0.0 (0.0-0.7) K/uL Baso # 0.5 H (0.0-0.2) K/uL Neutrophils % (Manual) 92 H (50-75) % Band Neutrophils % 1 (0-2) % Lymphocytes % (Manual) 3 L (20-40) % Monocytes % (Manual) 4 (0-10) % Toxic Granulation Platelet Estimate Markedly increased H (NORMAL) Large Platelets Giant Platelets Polychromasia Hypochromasia (manual) Poikilocytosis (manual Anisocytosis (manual) Ovalocytes Ross Cells Sodium 134 (132-148) mmol/L Potassium 3.9 (3.6-5.2) mmol/L Chloride 105 (98-107) mmol/L Carbon Dioxide 19 L (22-30) mmol/L Anion Gap 14 (10-20) BUN 15 (7-17) mg/dL Creatinine 1.7 H (0.7-1.2) mg/dL Est GFR ( Amer) 42 Est GFR (Non-Af Amer) 34 POC Glucose (mg/dL) (65-110) mg/dL Random Glucose 122 H (65-105) mg/dL Lactic Acid 1.3 (0.7-2.1) mmol/L Calcium 7.9 L (8.6-10.4) mg/dl Ionized Calcium (4.80-5.60) mg/dL Phosphorus 5.6 H (2.5-4.5) mg/dL Magnesium 1.6 (1.6-2.3) mg/dL Total Bilirubin 0.5 (0.2-1.3) mg/dL AST 22 (14-36) U/L ALT 27 (9-52) U/L Alkaline Phosphatase 103 (38-126) U/L Total Protein 6.8 (6.3-8.3) g/dL Albumin 3.0 L (3.5-5.0) g/dL Globulin 3.7 (2.2-3.9) gm/dL Albumin/Globulin Ratio 0.8 L (1.0-2.1) Ceruloplasmin (18-53) mg/dL Procalcitonin (0.19-0.49) NG/ML U Random Total Protein (0.0-12.0) mg/dL Ur Random Sodium mmol/L Urine Chloride (32-290) mmol/L Ur L.pneumophila Ag (NEGATIVE) 04/08/17 04/08/17 04/08/17 Range/Units 16:41 15:32 15:32 WBC (4.8-10.8) K/uL RBC (3.80-5.20) Mil/uL Hgb (11.0-16.0) g/dL Hct (34.0-47.0) % MCV (81.0-99.0) fL MCH (27.0-31.0) pg MCHC (33.0-37.0) g/dL RDW (11.5-14.5) % Plt Count (130-400) K/uL MPV (7.2-11.7) fL Neut % (Auto) (50.0-75.0) % Lymph % (Auto) (20.0-40.0) % Jay % (Auto) (0.0-10.0) % Eos % (Auto) (0.0-4.0) % Baso % (Auto) (0.0-2.0) % Neut # (1.8-7.0) K/uL Lymph # (1.0-4.3) K/uL Jay # (0.0-0.8) K/uL Eos # (0.0-0.7) K/uL Baso # (0.0-0.2) K/uL Neutrophils % (Manual) (50-75) % Band Neutrophils % (0-2) % Lymphocytes % (Manual) (20-40) % Monocytes % (Manual) (0-10) % Toxic Granulation Platelet Estimate (NORMAL) Large Platelets Giant Platelets Polychromasia Hypochromasia (manual) Poikilocytosis (manual Anisocytosis (manual) Ovalocytes Ofelia Cells Sodium (132-148) mmol/L Potassium (3.6-5.2) mmol/L Chloride (98-107) mmol/L Carbon Dioxide (22-30) mmol/L Anion Gap (10-20) BUN (7-17) mg/dL Creatinine (0.7-1.2) mg/dL Est GFR ( Amer) Est GFR (Non-Af Amer) POC Glucose (mg/dL) 136 H (65-110) mg/dL Random Glucose (65-105) mg/dL Lactic Acid (0.7-2.1) mmol/L Calcium (8.6-10.4) mg/dl Ionized Calcium (4.80-5.60) mg/dL Phosphorus (2.5-4.5) mg/dL Magnesium (1.6-2.3) mg/dL Total Bilirubin (0.2-1.3) mg/dL AST (14-36) U/L ALT (9-52) U/L Alkaline Phosphatase (38-126) U/L Total Protein (6.3-8.3) g/dL Albumin (3.5-5.0) g/dL Globulin (2.2-3.9) gm/dL Albumin/Globulin Ratio (1.0-2.1) Ceruloplasmin (18-53) mg/dL Procalcitonin (0.19-0.49) NG/ML U Random Total Protein Cancelled (0.0-12.0) mg/dL Ur Random Sodium 7 mmol/L Urine Chloride 17 L (32-290) mmol/L Ur L.pneumophila Ag (NEGATIVE) 04/08/17 04/08/17 04/08/17 Range/Units 15:00 12:45 12:09 WBC (4.8-10.8) K/uL RBC (3.80-5.20) Mil/uL Hgb (11.0-16.0) g/dL Hct (34.0-47.0) % MCV (81.0-99.0) fL MCH (27.0-31.0) pg MCHC (33.0-37.0) g/dL RDW (11.5-14.5) % Plt Count (130-400) K/uL MPV (7.2-11.7) fL Neut % (Auto) (50.0-75.0) % Lymph % (Auto) (20.0-40.0) % Jay % (Auto) (0.0-10.0) % Eos % (Auto) (0.0-4.0) % Baso % (Auto) (0.0-2.0) % Neut # (1.8-7.0) K/uL Lymph # (1.0-4.3) K/uL Jay # (0.0-0.8) K/uL Eos # (0.0-0.7) K/uL Baso # (0.0-0.2) K/uL Neutrophils % (Manual) (50-75) % Band Neutrophils % (0-2) % Lymphocytes % (Manual) (20-40) % Monocytes % (Manual) (0-10) % Toxic Granulation Platelet Estimate (NORMAL) Large Platelets Giant Platelets Polychromasia Hypochromasia (manual) Poikilocytosis (manual Anisocytosis (manual) Ovalocytes Ofelia Cells Sodium (132-148) mmol/L Potassium (3.6-5.2) mmol/L Chloride (98-107) mmol/L Carbon Dioxide (22-30) mmol/L Anion Gap (10-20) BUN (7-17) mg/dL Creatinine (0.7-1.2) mg/dL Est GFR ( Amer) Est GFR (Non-Af Amer) POC Glucose (mg/dL) (65-110) mg/dL Random Glucose (65-105) mg/dL Lactic Acid (0.7-2.1) mmol/L Calcium (8.6-10.4) mg/dl Ionized Calcium (4.80-5.60) mg/dL Phosphorus (2.5-4.5) mg/dL Magnesium (1.6-2.3) mg/dL Total Bilirubin (0.2-1.3) mg/dL AST (14-36) U/L ALT (9-52) U/L Alkaline Phosphatase (38-126) U/L Total Protein (6.3-8.3) g/dL Albumin (3.5-5.0) g/dL Globulin (2.2-3.9) gm/dL Albumin/Globulin Ratio (1.0-2.1) Ceruloplasmin (18-53) mg/dL Procalcitonin 3.66 H (0.19-0.49) NG/ML U Random Total Protein 41.0 H (0.0-12.0) mg/dL Ur Random Sodium mmol/L Urine Chloride (32-290) mmol/L Ur L.pneumophila Ag Negative (NEGATIVE) 04/08/17 04/08/17 Range/Units 11:49 08:19 WBC (4.8-10.8) K/uL RBC (3.80-5.20) Mil/uL Hgb (11.0-16.0) g/dL Hct (34.0-47.0) % MCV (81.0-99.0) fL MCH (27.0-31.0) pg MCHC (33.0-37.0) g/dL RDW (11.5-14.5) % Plt Count (130-400) K/uL MPV (7.2-11.7) fL Neut % (Auto) (50.0-75.0) % Lymph % (Auto) (20.0-40.0) % Jay % (Auto) (0.0-10.0) % Eos % (Auto) (0.0-4.0) % Baso % (Auto) (0.0-2.0) % Neut # (1.8-7.0) K/uL Lymph # (1.0-4.3) K/uL Jay # (0.0-0.8) K/uL Eos # (0.0-0.7) K/uL Baso # (0.0-0.2) K/uL Neutrophils % (Manual) (50-75) % Band Neutrophils % (0-2) % Lymphocytes % (Manual) (20-40) % Monocytes % (Manual) (0-10) % Toxic Granulation Platelet Estimate (NORMAL) Large Platelets Giant Platelets Polychromasia Hypochromasia (manual) Poikilocytosis (manual Anisocytosis (manual) Ovalocytes Ofelia Cells Sodium (132-148) mmol/L Potassium (3.6-5.2) mmol/L Chloride (98-107) mmol/L Carbon Dioxide (22-30) mmol/L Anion Gap (10-20) BUN (7-17) mg/dL Creatinine (0.7-1.2) mg/dL Est GFR ( Amer) Est GFR (Non-Af Amer) POC Glucose (mg/dL) (65-110) mg/dL Random Glucose (65-105) mg/dL Lactic Acid (0.7-2.1) mmol/L Calcium (8.6-10.4) mg/dl Ionized Calcium 5.5 (4.80-5.60) mg/dL Phosphorus (2.5-4.5) mg/dL Magnesium (1.6-2.3) mg/dL Total Bilirubin (0.2-1.3) mg/dL AST (14-36) U/L ALT (9-52) U/L Alkaline Phosphatase (38-126) U/L Total Protein (6.3-8.3) g/dL Albumin (3.5-5.0) g/dL Globulin (2.2-3.9) gm/dL Albumin/Globulin Ratio (1.0-2.1) Ceruloplasmin 27 (18-53) mg/dL Procalcitonin (0.19-0.49) NG/ML U Random Total Protein (0.0-12.0) mg/dL Ur Random Sodium mmol/L Urine Chloride (32-290) mmol/L Ur L.pneumophila Ag (NEGATIVE) Laboratory Results - last 24 hr 04/08/17 04/08/17 04/08/17 08:19 11:49 12:09 WBC RBC Hgb Hct MCV MCH MCHC RDW Plt Count MPV Neut % (Auto) Lymph % (Auto) Jay % (Auto) Eos % (Auto) Baso % (Auto) Neut # Lymph # Jay # Eos # Baso # Neutrophils % (Manual) Band Neutrophils % Lymphocytes % (Manual) Monocytes % (Manual) Toxic Granulation Platelet Estimate Large Platelets Giant Platelets Polychromasia Hypochromasia (manual) Poikilocytosis (manual Anisocytosis (manual) Ovalocytes Ofelia Cells Sodium Potassium Chloride Carbon Dioxide Anion Gap BUN Creatinine Est GFR ( Amer) Est GFR (Non-Af Amer) POC Glucose (mg/dL) Random Glucose Lactic Acid Calcium Ionized Calcium 5.5 Phosphorus Magnesium Total Bilirubin AST ALT Alkaline Phosphatase Total Protein Albumin Globulin Albumin/Globulin Ratio Ceruloplasmin 27 Procalcitonin U Random Total Protein Ur Random Sodium Urine Chloride Ur L.pneumophila Ag Negative 04/08/17 04/08/17 04/08/17 12:45 15:00 15:32 WBC RBC Hgb Hct MCV MCH MCHC RDW Plt Count MPV Neut % (Auto) Lymph % (Auto) Jay % (Auto) Eos % (Auto) Baso % (Auto) Neut # Lymph # Jay # Eos # Baso # Neutrophils % (Manual) Band Neutrophils % Lymphocytes % (Manual) Monocytes % (Manual) Toxic Granulation Platelet Estimate Large Platelets Giant Platelets Polychromasia Hypochromasia (manual) Poikilocytosis (manual Anisocytosis (manual) Ovalocytes Ross Cells Sodium Potassium Chloride Carbon Dioxide Anion Gap BUN Creatinine Est GFR ( Amer) Est GFR (Non-Af Amer) POC Glucose (mg/dL) Random Glucose Lactic Acid Calcium Ionized Calcium Phosphorus Magnesium Total Bilirubin AST ALT Alkaline Phosphatase Total Protein Albumin Globulin Albumin/Globulin Ratio Ceruloplasmin Procalcitonin 3.66 H U Random Total Protein 41.0 H Ur Random Sodium Urine Chloride 17 L Ur L.pneumophila Ag 04/08/17 04/08/17 04/08/17 15:32 16:41 19:10 WBC 37.4 H* RBC 3.54 L Hgb 9.6 L Hct 29.1 L MCV 82.4 MCH 27.0 MCHC 32.8 L RDW 13.7 Plt Count 754 H MPV 7.6 Neut % (Auto) 88.4 H Lymph % (Auto) 2.2 L Jay % (Auto) 8.0 Eos % (Auto) 0.0 Baso % (Auto) 1.4 Neut # 33.1 H Lymph # 0.8 L Jay # 3.0 H Eos # 0.0 Baso # 0.5 H Neutrophils % (Manual) 92 H Band Neutrophils % 1 Lymphocytes % (Manual) 3 L Monocytes % (Manual) 4 Toxic Granulation Platelet Estimate Markedly increased H Large Platelets Giant Platelets Polychromasia Hypochromasia (manual) Poikilocytosis (manual Anisocytosis (manual) Ovalocytes Ross Cells Sodium Potassium Chloride Carbon Dioxide Anion Gap BUN Creatinine Est GFR ( Amer) Est GFR (Non-Af Amer) POC Glucose (mg/dL) 136 H Random Glucose Lactic Acid Calcium Ionized Calcium Phosphorus Magnesium Total Bilirubin AST ALT Alkaline Phosphatase Total Protein Albumin Globulin Albumin/Globulin Ratio Ceruloplasmin Procalcitonin U Random Total Protein Cancelled Ur Random Sodium 7 Urine Chloride Ur L.pneumophila Ag 04/08/17 04/08/17 04/09/17 19:10 19:12 02:09 WBC RBC Hgb Hct MCV MCH MCHC RDW Plt Count MPV Neut % (Auto) Lymph % (Auto) Jay % (Auto) Eos % (Auto) Baso % (Auto) Neut # Lymph # Jay # Eos # Baso # Neutrophils % (Manual) Band Neutrophils % Lymphocytes % (Manual) Monocytes % (Manual) Toxic Granulation Platelet Estimate Large Platelets Giant Platelets Polychromasia Hypochromasia (manual) Poikilocytosis (manual Anisocytosis (manual) Ovalocytes Ross Cells Sodium 134 Potassium 3.9 Chloride 105 Carbon Dioxide 19 L Anion Gap 14 BUN 15 Creatinine 1.7 H Est GFR ( Amer) 42 Est GFR (Non-Af Amer) 34 POC Glucose (mg/dL) 126 H Random Glucose 122 H Lactic Acid 1.3 Calcium 7.9 L Ionized Calcium Phosphorus 5.6 H Magnesium 1.6 Total Bilirubin 0.5 AST 22 ALT 27 Alkaline Phosphatase 103 Total Protein 6.8 Albumin 3.0 L Globulin 3.7 Albumin/Globulin Ratio 0.8 L Ceruloplasmin Procalcitonin U Random Total Protein Ur Random Sodium Urine Chloride Ur L.pneumophila Ag 04/09/17 04/09/17 04/09/17 05:27 06:19 06:19 WBC RBC Hgb Hct MCV MCH MCHC RDW Plt Count MPV Neut % (Auto) Lymph % (Auto) Jay % (Auto) Eos % (Auto) Baso % (Auto) Neut # Lymph # Jay # Eos # Baso # Neutrophils % (Manual) Band Neutrophils % Lymphocytes % (Manual) Monocytes % (Manual) Toxic Granulation Platelet Estimate Large Platelets Giant Platelets Polychromasia Hypochromasia (manual) Poikilocytosis (manual Anisocytosis (manual) Ovalocytes Ofelia Cells Sodium 136 Potassium 4.3 Chloride 105 Carbon Dioxide 18 L Anion Gap 18 BUN 24 H Creatinine 3.0 H Est GFR ( Amer) 22 Est GFR (Non-Af Amer) 18 POC Glucose (mg/dL) 130 H Random Glucose 132 H Lactic Acid 1.1 Calcium 8.0 L Ionized Calcium Phosphorus 5.7 H Magnesium 1.8 Total Bilirubin 0.9 AST 27 ALT 25 Alkaline Phosphatase 119 Total Protein 6.8 Albumin 3.0 L Globulin 3.8 Albumin/Globulin Ratio 0.8 L Ceruloplasmin Procalcitonin U Random Total Protein Ur Random Sodium Urine Chloride Ur L.pneumophila Ag 04/09/17 04/09/17 06:24 11:54 WBC 33.3 H RBC 3.37 L Hgb 9.1 L Hct 28.1 L MCV 83.2 MCH 27.1 MCHC 32.5 L RDW 13.9 Plt Count 726 H MPV 8.2 Neut % (Auto) 88.4 H Lymph % (Auto) 2.4 L Jay % (Auto) 9.0 Eos % (Auto) 0.0 Baso % (Auto) 0.2 Neut # 29.5 H Lymph # 0.8 L Jay # 3.0 H Eos # 0.0 Baso # 0.1 Neutrophils % (Manual) 85 H Band Neutrophils % 4 H Lymphocytes % (Manual) 3 L Monocytes % (Manual) 8 Toxic Granulation Present Platelet Estimate Increased H Large Platelets Present Giant Platelets Present Polychromasia Slight Hypochromasia (manual) Slight Poikilocytosis (manual Slight Anisocytosis (manual) Slight Ovalocytes Slight Ofelia Cells Slight Sodium Potassium Chloride Carbon Dioxide Anion Gap BUN Creatinine Est GFR ( Amer) Est GFR (Non-Af Amer) POC Glucose (mg/dL) 130 H Random Glucose Lactic Acid Calcium Ionized Calcium Phosphorus Magnesium Total Bilirubin AST ALT Alkaline Phosphatase Total Protein Albumin Globulin Albumin/Globulin Ratio Ceruloplasmin Procalcitonin U Random Total Protein Ur Random Sodium Urine Chloride Ur L.pneumophila Ag EKG/Cardiology Studies: Cardiology / EKG Studies 04/08/17 14:58 EKG [ELECTROCARDIOGRAM] Stat Comment: Mode Of Transportation: Reason For Exam: hr 150 Fingerstick Blood Sugar Results: 126 Review of Systems - Review of Systems Systems not reviewed;Unavailable: Other (mental disability) Critical Care Progress Note - Nutrition Nutrition: Nutrition Category Date Time Status NPO Diet [DIET] Diets 04/08/17 Dinner Active Assessment/Plan (1) Leucocytosis Current Visit: Yes Status: Acute Comment: etiology of leukocytosis is not clear CT of the abdomen and pelvis showed small left effusion and atelectasis, with distended stomach and collection of fluid behind the fundus. On antibiotics as per infectious diseas Abdomen very soft after NG tube was inserted and 2.5 L of straw-colored fluid removed. intra-abdominal pressure 2. Continue IV fluid Continue antibiotics Patient seen by surgery multiple times Follow-up GI recommendation IV sedation as needed correct electrolytes (2) Acute renal failure Current Visit: Yes Status: Acute (3) Gastric distention Current Visit: Yes Status: Acute (4) Mental retardation Current Visit: No Status: Acute
--- NOTE | 2017-04-09 14:30 | CP.PCM.CON ---
History of Present Illness - History of Present Illness History of Present Illness: Patient seen and evaluated in ICU Consulted for tachycardia Not in distress HR in 150s (Sinus Tachycardia) ECHO: Normal EF and no valvular issues Tachycardia most likely due to medical issues Will start Cardizem drip. Continue IF fluids HPI: Patient is a 36F with a PMH of schizophrenia comes to ED with increasing abdominal distension as noted by the mother. Patient and patients mother went to a buffet yesterday. After this both the mother and the patient had some diarrhea. The patient continued to have diarrhea. She later became dizzy and was unable to stand without assistance. Patient is nonverbal at baseline but usually ambulates independently. Nothing has made her symptoms better or worse. She is unable to describe the quality of her pain. She is unable to describe any radiation or quantify severity. The diarrhea has continued and her belly has become progressively larger. Denies any Vomiting. A CT was ordered in ED that showed massive gastric distension. NGT placed. Fem TLC placed. ICU consulted. ROS: Unattainable PMH: Schizophrenia, Mental disability PSH: None FH: Unremarkable Meds: Lexapro, Seroquel All: None Hospital course remarkable for treatment of pancreatitis; possible sepsis course Now pt more oliguric and creatinine increased to 1.4 On IV fluids Review of Systems - Review of Systems Systems not reviewed;Unavailable: Altered Mental Status, Uncooperative Physical Exam - Constitutional Appears: In Acute Distress, Agitated, Chronically Ill - Head Exam Head Exam: ATRAUMATIC, NORMAL INSPECTION - Eye Exam Eye Exam: EOMI, Normal appearance - Neck Exam Neck exam: Positive for: Normal Inspection. Negative for: Tenderness - Respiratory Exam Respiratory Exam: Decreased Breath Sounds, NORMAL BREATHING PATTERN - Cardiovascular Exam Cardiovascular Exam: Tachycardia, +S1 - GI/Abdominal Exam GI & Abdominal Exam: Soft, Tenderness - Extremities Exam Extremities exam: Positive for: normal inspection. Negative for: tenderness - Neurological Exam Neurological exam: Altered, CN II-XII Intact - Skin Skin Exam: Dry, Warm Past Patient History - Past Medical History & Family History Past Medical History?: Yes - Past Social History Smoking Status: Never Smoked Chewing Tobacco Use: No Cigar Use: No Home Situation {Lives}: With Family - CARDIAC Hx Cardiac Disorders: No - PULMONARY Hx Respiratory Disorders: No - NEUROLOGICAL Other/Comment: NEURO / DEVELOPMENTAL PROBLEM - HEENT Hx HEENT Problems: No - RENAL Hx Chronic Kidney Disease: No - ENDOCRINE/METABOLIC Hx Endocrine Disorders: No - HEMATOLOGICAL/ONCOLOGICAL Hx Blood Disorders: No - INTEGUMENTARY Hx Dermatological Problems: No - MUSCULOSKELETAL/RHEUMATOLOGICAL Hx Musculoskeletal Disorders: No Hx Falls: No - GASTROINTESTINAL Hx Gastrointestinal Disorders: No - GENITOURINARY/GYNECOLOGICAL Hx Genitourinary Disorders: No - PSYCHIATRIC Hx Depression: Yes Hx Schizophrenia: Yes Hx Substance Use: No - SURGICAL HISTORY Hx Surgeries: No - ANESTHESIA Hx Anesthesia: No Meds Allergies/Adverse Reactions: Allergies Allergy/AdvReac Type Severity Reaction Status Date / Time No Known Allergies Allergy Unverified 03/27/17 21:28 - Medications Medications: Current Medications Acetaminophen (Tylenol 325 Mg Supp) 325 mg [place] Q4 PRN PRN Reason: Fever >100.4 F Last Admin: 03/30/17 08:15 Dose: 325 mg Ascorbic Acid (Vitamin C 500 Mg Tab) 500 mg PO DAILY [facility] Last Admin: 04/09/17 10:20 Dose: Not Given Haloperidol Lactate (Haldol) 1 mg IVP BID PRN PRN Reason: Agitation Last Admin: 04/09/17 00:13 Dose: 1 mg Piperacillin Sod/Tazobactam Sod (Zosyn 3.375 Gm Iv Premix) 3.375 gm in 50 mls @ 100 mls/hr IVPB Q8H [facility] Last Admin: 04/09/17 10:26 Dose: 100 mls/hr Vancomycin/Sodium Chloride (Vancomycin 1 Gm/Ns 200 Ml) 1 gm in 200 mls @ 133.333 mls/hr IVPB Q24H [facility] Stop: 04/13/17 18:31 Last Admin: 04/08/17 19:00 Dose: 133.333 mls/hr Diltiazem HCl 125 mg/ Sodium (Chloride) 125 mls @ 5 mls/hr IV .Q24H PRN; 5 MG/ HR PRN Reason: Protocol Last Titration: 04/09/17 08:33 Dose: 15 mg/hr, 15 mls/hr Sodium Chloride 40 meq/Potassium Chloride 30 meq/Magnesium Sulfate 6 meq/ Calcium Gluconate 4.5 meq/Potassium Phosphate 15 mmole/Chromium/Copper/Manganese /Zinc 1 ml/ Multivitamins/Vitamin C 10 ml/ Amino Acids 1,052.1552 mls @ 42 mls/ hr IV .Q24H [facility] Stop: 04/10/17 17:59 Fat Emulsion Intravenous (Intralipid 20%) 500 mls @ 50 mls/hr IV TuThSa@1800 [facility] Sodium Chloride (Sodium Chloride 0.9%) 1,000 mls @ 100 mls/hr IV .Q10H [facility] Lorazepam (Ativan) 0.5 mg IVP Q3H PRN PRN Reason: Anxiety Last Admin: 04/09/17 03:19 Dose: 0.5 mg Metoclopramide HCl (Reglan) 10 mg IVP Q12 [facility] Last Admin: 04/09/17 10:25 Dose: 10 mg Morphine Sulfate (Morphine) 4 mg IVP Q4 PRN PRN Reason: Pain, severe (8-10) Last Admin: 04/09/17 01:25 Dose: 4 mg Ondansetron HCl (Zofran Inj) 4 mg IVP Q6H PRN PRN Reason: Nausea/Vomiting Pantoprazole Sodium (Protonix Inj) 40 mg IVP DAILY [facility] Last Admin: 04/09/17 10:21 Dose: 40 mg Saccharomyces Boulardii (Florastor) 250 mg PO BID [facility] Last Admin: 04/09/17 10:19 Dose: Not Given Thiamine HCl (Vitamin B1 Tab) 100 mg PO DAILY [facility] Last Admin: 04/09/17 10:20 Dose: Not Given Results - Vital Signs Recent Vital Signs: Last Vital Signs Temp 97.7 F 04/09/17 00:00 Pulse 118 H 04/09/17 11:53 Resp 38 H 04/09/17 11:53 BP 114/76 04/09/17 11:53 Pulse Ox 99 04/09/17 11:53 - Labs Result Diagrams: 04/30/17 06:39 04/30/17 06:39 Labs: Laboratory Results - last 24 hr 04/08/17 04/08/17 04/08/17 08:19 11:49 12:45 WBC RBC Hgb Hct MCV MCH MCHC RDW Plt Count MPV Neut % (Auto) Lymph % (Auto) [place] % (Auto) Eos % (Auto) Baso % (Auto) Neut # Lymph # [place] # Eos # Baso # Neutrophils % (Manual) Band Neutrophils % Lymphocytes % (Manual) Monocytes % (Manual) Toxic Granulation Platelet Estimate Large Platelets Giant Platelets Polychromasia Hypochromasia (manual) Poikilocytosis (manual Anisocytosis (manual) Ovalocytes [place] Cells Sodium Potassium Chloride Carbon Dioxide Anion Gap BUN Creatinine Est GFR ( Amer) Est GFR (Non-Af Amer) POC Glucose (mg/dL) Random Glucose Lactic Acid Calcium Ionized Calcium 5.5 Phosphorus Magnesium Total Bilirubin AST ALT Alkaline Phosphatase Total Protein Albumin Globulin Albumin/Globulin Ratio Ceruloplasmin 27 Procalcitonin 3.66 H U Random Total Protein Ur Random Sodium Urine Chloride 04/08/17 04/08/17 04/08/17 15:00 15:32 15:32 WBC RBC Hgb Hct MCV MCH MCHC RDW Plt Count MPV Neut % (Auto) Lymph % (Auto) [place] % (Auto) Eos % (Auto) Baso % (Auto) Neut # Lymph # [place] # Eos # Baso # Neutrophils % (Manual) Band Neutrophils % Lymphocytes % (Manual) Monocytes % (Manual) Toxic Granulation Platelet Estimate Large Platelets Giant Platelets Polychromasia Hypochromasia (manual) Poikilocytosis (manual Anisocytosis (manual) Ovalocytes [place] Cells Sodium Potassium Chloride Carbon Dioxide Anion Gap BUN Creatinine Est GFR ( Amer) Est GFR (Non-Af Amer) POC Glucose (mg/dL) Random Glucose Lactic Acid Calcium Ionized Calcium Phosphorus Magnesium Total Bilirubin AST ALT Alkaline Phosphatase Total Protein Albumin Globulin Albumin/Globulin Ratio Ceruloplasmin Procalcitonin U Random Total Protein 41.0 H Cancelled Ur Random Sodium 7 Urine Chloride 17 L 04/08/17 04/08/17 04/08/17 16:41 19:10 19:10 WBC 37.4 H* RBC 3.54 L Hgb 9.6 L Hct 29.1 L MCV 82.4 MCH 27.0 MCHC 32.8 L RDW 13.7 Plt Count 754 H MPV 7.6 Neut % (Auto) 88.4 H Lymph % (Auto) 2.2 L [place] % (Auto) 8.0 Eos % (Auto) 0.0 Baso % (Auto) 1.4 Neut # 33.1 H Lymph # 0.8 L [place] # 3.0 H Eos # 0.0 Baso # 0.5 H Neutrophils % (Manual) 92 H Band Neutrophils % 1 Lymphocytes % (Manual) 3 L Monocytes % (Manual) 4 Toxic Granulation Platelet Estimate Markedly increased H Large Platelets Giant Platelets Polychromasia Hypochromasia (manual) Poikilocytosis (manual Anisocytosis (manual) Ovalocytes [place] Cells Sodium 134 Potassium 3.9 Chloride 105 Carbon Dioxide 19 L Anion Gap 14 BUN 15 Creatinine 1.7 H Est GFR ( Amer) 42 Est GFR (Non-Af Amer) 34 POC Glucose (mg/dL) 136 H Random Glucose 122 H Lactic Acid Calcium 7.9 L Ionized Calcium Phosphorus 5.6 H Magnesium 1.6 Total Bilirubin 0.5 AST 22 ALT 27 Alkaline Phosphatase 103 Total Protein 6.8 Albumin 3.0 L Globulin 3.7 Albumin/Globulin Ratio 0.8 L Ceruloplasmin Procalcitonin U Random Total Protein Ur Random Sodium Urine Chloride 04/08/17 04/09/17 04/09/17 19:12 02:09 05:27 WBC RBC Hgb Hct MCV MCH MCHC RDW Plt Count MPV Neut % (Auto) Lymph % (Auto) [place] % (Auto) Eos % (Auto) Baso % (Auto) Neut # Lymph # [place] # Eos # Baso # Neutrophils % (Manual) Band Neutrophils % Lymphocytes % (Manual) Monocytes % (Manual) Toxic Granulation Platelet Estimate Large Platelets Giant Platelets Polychromasia Hypochromasia (manual) Poikilocytosis (manual Anisocytosis (manual) Ovalocytes [place] Cells Sodium Potassium Chloride Carbon Dioxide Anion Gap BUN Creatinine Est GFR ( Amer) Est GFR (Non-Af Amer) POC Glucose (mg/dL) 126 H 130 H Random Glucose Lactic Acid 1.3 Calcium Ionized Calcium Phosphorus Magnesium Total Bilirubin AST ALT Alkaline Phosphatase Total Protein Albumin Globulin Albumin/Globulin Ratio Ceruloplasmin Procalcitonin U Random Total Protein Ur Random Sodium Urine Chloride 04/09/17 04/09/17 04/09/17 06:19 06:19 06:24 WBC 33.3 H RBC 3.37 L Hgb 9.1 L Hct 28.1 L MCV 83.2 MCH 27.1 MCHC 32.5 L RDW 13.9 Plt Count 726 H MPV 8.2 Neut % (Auto) 88.4 H Lymph % (Auto) 2.4 L [place] % (Auto) 9.0 Eos % (Auto) 0.0 Baso % (Auto) 0.2 Neut # 29.5 H Lymph # 0.8 L [place] # 3.0 H Eos # 0.0 Baso # 0.1 Neutrophils % (Manual) 85 H Band Neutrophils % 4 H Lymphocytes % (Manual) 3 L Monocytes % (Manual) 8 Toxic Granulation Present Platelet Estimate Increased H Large Platelets Present Giant Platelets Present Polychromasia Slight Hypochromasia (manual) Slight Poikilocytosis (manual Slight Anisocytosis (manual) Slight Ovalocytes Slight Ofelia Cells Slight Sodium 136 Potassium 4.3 Chloride 105 Carbon Dioxide 18 L Anion Gap 18 BUN 24 H Creatinine 3.0 H Est GFR ( Amer) 22 Est GFR (Non-Af Amer) 18 POC Glucose (mg/dL) Random Glucose 132 H Lactic Acid 1.1 Calcium 8.0 L Ionized Calcium Phosphorus 5.7 H Magnesium 1.8 Total Bilirubin 0.9 AST 27 ALT 25 Alkaline Phosphatase 119 Total Protein 6.8 Albumin 3.0 L Globulin 3.8 Albumin/Globulin Ratio 0.8 L Ceruloplasmin Procalcitonin U Random Total Protein Ur Random Sodium Urine Chloride 04/09/17 11:54 WBC RBC Hgb Hct MCV MCH MCHC RDW Plt Count MPV Neut % (Auto) Lymph % (Auto) [place] % (Auto) Eos % (Auto) Baso % (Auto) Neut # Lymph # [place] # Eos # Baso # Neutrophils % (Manual) Band Neutrophils % Lymphocytes % (Manual) Monocytes % (Manual) Toxic Granulation Platelet Estimate Large Platelets Giant Platelets Polychromasia Hypochromasia (manual) Poikilocytosis (manual Anisocytosis (manual) Ovalocytes [place] Cells Sodium Potassium Chloride Carbon Dioxide Anion Gap BUN Creatinine Est GFR ( Amer) Est GFR (Non-Af Amer) POC Glucose (mg/dL) 130 H Random Glucose Lactic Acid Calcium Ionized Calcium Phosphorus Magnesium Total Bilirubin AST ALT Alkaline Phosphatase Total Protein Albumin Globulin Albumin/Globulin Ratio Ceruloplasmin Procalcitonin U Random Total Protein Ur Random Sodium Urine Chloride Assessment & Plan - Assessment and Plan (Free Text) Assessment: Assessment & Plan - Assessment and Plan (Free Text) Assessment: Tachycardia JIMBO Acute pancreatitis Volume depletion Sepsis syndrome Intra-abdominal fluid collection- possible abscess Plan: ECHO: Normal EF and no valvular issues Tachycardia most likely due to medical issues Cardizem drip/PO as needed
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
[2017-04-09 16:49] LABS: HDL CHOLESTEROL 19 mg/dL (30-70)
[2017-04-09 17:03] LABS: LDL CHOLESTEROL < 30 mg/dL (0-129)
[2017-04-09] MEDS ORDERED: PPN # 2 IV SCH (18:00)
[2017-04-09] MEDS: Fat Emulsion 20% IV 500 ML IV SCH (18:11)
[2017-04-09] MEDS: Lactated Ringer's 1,000 ML IV SCH (18:18)
[2017-04-09] MEDS: Vancomycin 1 gm/NS 200 ml 1 GM/200 ML BAG IVPB SCH (18:55)
--- NOTE | 2017-04-09 22:05 | CP.PCM.PN ---
Subjective - Date & Time of Evaluation Date of Evaluation: 04/09/17 Time of Evaluation: 08:05 - Subjective Subjective: Patient seen and evaluated HR improved with IV Cardizem No chest pain and dyspnea Physical Exam - Constitutional Appears: In Acute Distress, Agitated, Chronically Ill - Head Exam Head Exam: ATRAUMATIC, NORMAL INSPECTION - Eye Exam Eye Exam: EOMI, Normal appearance - Neck Exam Neck exam: Positive for: Normal Inspection. Negative for: Tenderness - Respiratory Exam Respiratory Exam: Decreased Breath Sounds, NORMAL BREATHING PATTERN - Cardiovascular Exam Cardiovascular Exam: Tachycardia, +S1 - GI/Abdominal Exam GI & Abdominal Exam: Soft, Tenderness - Extremities Exam Extremities exam: Positive for: normal inspection. Negative for: tenderness - Neurological Exam Neurological exam: Altered, CN II-XII Intact - Skin Skin Exam: Dry, Warm Objective - Vital Signs/Intake and Output Vital Signs (last 24 hours): Temp Pulse Resp BP Pulse Ox 98.9 F 106 H 26 H 90/49 L 100 04/09/17 20:00 04/09/17 21:00 04/09/17 21:00 04/09/17 20:52 04/09/17 21:00 Intake and Output: 04/09/17 04/10/17 18:59 06:59 Intake Total 1504 681 Output Total 2630 975 Balance -1126 -294 - Medications Medications: Current Medications Acetaminophen (Tylenol 325 Mg Supp) 325 mg [place] Q4 PRN PRN Reason: Fever >100.4 F Last Admin: 03/30/17 08:15 Dose: 325 mg Ascorbic Acid (Vitamin C 500 Mg Tab) 500 mg PO DAILY [facility] Last Admin: 04/09/17 10:20 Dose: Not Given Haloperidol Lactate (Haldol) 1 mg IVP BID PRN PRN Reason: Agitation Last Admin: 04/09/17 12:41 Dose: 1 mg Piperacillin Sod/Tazobactam Sod (Zosyn 3.375 Gm Iv Premix) 3.375 gm in 50 mls @ 100 mls/hr IVPB Q8H [facility] Last Admin: 04/09/17 18:14 Dose: 100 mls/hr Vancomycin/Sodium Chloride (Vancomycin 1 Gm/Ns 200 Ml) 1 gm in 200 mls @ 133.333 mls/hr IVPB Q24H [facility] Stop: 04/13/17 18:31 Last Admin: 04/09/17 18:55 Dose: 133.333 mls/hr Diltiazem HCl 125 mg/ Sodium (Chloride) 125 mls @ 5 mls/hr IV .Q24H PRN; 5 MG/ HR PRN Reason: Protocol Last Admin: 04/09/17 21:45 Dose: 5 mg/hr, 5 mls/hr Sodium Chloride 40 meq/Potassium Chloride 30 meq/Magnesium Sulfate 6 meq/ Calcium Gluconate 4.5 meq/Potassium Phosphate 15 mmole/Chromium/Copper/Manganese /Zinc 1 ml/ Multivitamins/Vitamin C 10 ml/ Amino Acids 1,052.1552 mls @ 42 mls/ hr IV .Q24H [facility] Stop: 04/10/17 17:59 Last Admin: 04/09/17 18:29 Dose: 42 mls/hr Fat Emulsion Intravenous (Intralipid 20%) 500 mls @ 50 mls/hr IV TuThSa@1800 [facility] Last Admin: 04/09/17 18:11 Dose: 50 mls/hr Lactated Ringer's (Lactated Ringer's) 1,000 mls @ 100 mls/hr IV .Q10H [facility] Last Admin: 04/09/17 18:18 Dose: 100 mls/hr Lorazepam (Ativan) 0.5 mg IVP Q3H PRN PRN Reason: Anxiety Last Admin: 04/09/17 12:35 Dose: 0.5 mg Metoclopramide HCl (Reglan) 10 mg IVP Q12 [facility] Last Admin: 04/09/17 21:44 Dose: 10 mg Ondansetron HCl (Zofran Inj) 4 mg IVP Q6H PRN PRN Reason: Nausea/Vomiting Pantoprazole Sodium (Protonix Inj) 40 mg IVP DAILY [facility] Last Admin: 04/09/17 10:21 Dose: 40 mg Saccharomyces Boulardii (Florastor) 250 mg PO BID [facility] Last Admin: 04/09/17 17:09 Dose: Not Given Thiamine HCl (Vitamin B1 Tab) 100 mg PO DAILY [facility] Last Admin: 04/09/17 10:20 Dose: Not Given - Labs Labs: 04/09/17 06:24 04/09/17 06:19 PT 21.6 SECONDS (9.7-12.2) H 04/08/17 12:45 INR 1.9 04/08/17 12:45 APTT 30 SECONDS (21-34) 04/08/17 12:45 Assessment and Plan - Assessment and Plan (Free Text) Assessment: Assessment & Plan - Assessment and Plan (Free Text) Assessment: Tachycardia JIMBO Acute pancreatitis Volume depletion Sepsis syndrome Intra-abdominal fluid collection- possible abscess Plan: ECHO: Normal EF and no valvular issues Tachycardia most likely due to medical issues Cardizem drip/PO as needed
[2017-04-10] MEDS: Piperacill/Tazo 3.375gm in Dex 3.375 GM/50 ML BAG IVPB SCH ×3 (01:34→18:41)
[2017-04-10 07:07] LABS: BASO # 0.1 K/uL (0.0-0.2); BASO % 0.4 % (0.0-2.0); EOS # 0.2 K/uL (0.0-0.7); EOS % 0.7 % (0.0-4.0); LYMPH # 1.4 K/uL (1.0-4.3); LYMPH % 6.6 % (20.0-40.0); MEAN CELL VOLUME 83.1 fL (81.0-99.0); MEAN CORPUSCULAR HEMOGLOBIN 28.9 pg (27.0-31.0); MEAN CORPUSCULAR HGB CONC 34.8 g/dL (33.0-37.0); MONO # 1.6 K/uL (0.0-0.8); MONO % 7.7 % (0.0-10.0); NEUT # 17.3 K/uL (1.8-7.0); NEUT % 84.6 % (50.0-75.0); NRBC % 0.1 % (0.0-2.0); PLATELET COUNT 616 K/uL (130-400); RBC 2.77 Mil/uL (3.80-5.20); WHITE BLOOD COUNT 20.4 K/uL (4.8-10.8)
[2017-04-10 07:11] LABS: ALB/GLOB RATIO 0.8 (1.0-2.1); ALBUMIN 2.4 g/dL (3.5-5.0); CALCIUM 7.8 mg/dl (8.6-10.4)
[2017-04-10] MEDS: Lactated Ringer's 1,000 ML IV SCH ×3 (07:45→18:55)
--- NOTE | 2017-04-10 07:56 | CP.PCM.PN ---
Subjective - Date & Time of Evaluation Date of Evaluation: 04/10/17 Time of Evaluation: 07:54 - Subjective Subjective: Gen Sx: Dr Mendez Pt transferred to ICU given leukocytosis and N/V. NGT placed which got back 3.3L so far. Pt much more comfortable now. Second opinion GI consult was placed. Agree pt may need to be rescoped as clearing of antrum was inadequate on original study. Will keep NGT to suction and flush continuously until then. Possible EUS and or CTA of abdomen in future. No further BM or emesis overnight. Objective - Vital Signs/Intake and Output Vital Signs (last 24 hours): Temp Pulse Resp BP Pulse Ox 99 F 103 H 27 H 86/49 L 99 04/10/17 04:00 04/10/17 07:00 04/10/17 07:00 04/10/17 06:53 04/10/17 07:00 Intake and Output: 04/10/17 04/10/17 06:59 18:59 Intake Total 2429 142 Output Total 1175 Balance 1254 142 - Medications Medications: Current Medications Acetaminophen (Tylenol 325 Mg Supp) 325 mg [place] Q4 PRN PRN Reason: Fever >100.4 F Last Admin: 03/30/17 08:15 Dose: 325 mg Ascorbic Acid (Vitamin C 500 Mg Tab) 500 mg PO DAILY [facility] Last Admin: 04/09/17 10:20 Dose: Not Given Haloperidol Lactate (Haldol) 1 mg IVP BID PRN PRN Reason: Agitation Last Admin: 04/09/17 12:41 Dose: 1 mg Piperacillin Sod/Tazobactam Sod (Zosyn 3.375 Gm Iv Premix) 3.375 gm in 50 mls @ 100 mls/hr IVPB Q8H [facility] Last Admin: 04/10/17 01:34 Dose: 100 mls/hr Vancomycin/Sodium Chloride (Vancomycin 1 Gm/Ns 200 Ml) 1 gm in 200 mls @ 133.333 mls/hr IVPB Q24H [facility] Stop: 04/13/17 18:31 Last Admin: 04/09/17 18:55 Dose: 133.333 mls/hr Diltiazem HCl 125 mg/ Sodium (Chloride) 125 mls @ 5 mls/hr IV .Q24H PRN; 5 MG/ HR PRN Reason: Protocol Last Titration: 04/10/17 02:07 Dose: 0 mg/hr, 0 mls/hr Sodium Chloride 40 meq/Potassium Chloride 30 meq/Magnesium Sulfate 6 meq/ Calcium Gluconate 4.5 meq/Potassium Phosphate 15 mmole/Chromium/Copper/Manganese /Zinc 1 ml/ Multivitamins/Vitamin C 10 ml/ Amino Acids 1,052.1552 mls @ 42 mls/ hr IV .Q24H [facility] Stop: 04/10/17 17:59 Last Admin: 04/09/17 18:29 Dose: 42 mls/hr Fat Emulsion Intravenous (Intralipid 20%) 500 mls @ 50 mls/hr IV TuThSa@1800 [facility] Last Admin: 04/09/17 18:11 Dose: 50 mls/hr Lactated Ringer's (Lactated Ringer's) 1,000 mls @ 100 mls/hr IV .Q10H [facility] Last Admin: 04/10/17 07:45 Dose: 100 mls/hr Lorazepam (Ativan) 0.5 mg IVP Q3H PRN PRN Reason: Anxiety Last Admin: 04/09/17 12:35 Dose: 0.5 mg Metoclopramide HCl (Reglan) 10 mg IVP Q12 [facility] Last Admin: 04/09/17 21:44 Dose: 10 mg Ondansetron HCl (Zofran Inj) 4 mg IVP Q6H PRN PRN Reason: Nausea/Vomiting Pantoprazole Sodium (Protonix Inj) 40 mg IVP DAILY [facility] Last Admin: 04/09/17 10:21 Dose: 40 mg Saccharomyces Boulardii (Florastor) 250 mg PO BID [facility] Last Admin: 04/09/17 17:09 Dose: Not Given Thiamine HCl (Vitamin B1 Tab) 100 mg PO DAILY [facility] Last Admin: 04/09/17 10:20 Dose: Not Given - Labs Labs: 04/10/17 06:52 04/10/17 06:51 PT 21.6 SECONDS (9.7-12.2) H 04/08/17 12:45 INR 1.9 04/08/17 12:45 APTT 30 SECONDS (21-34) 04/08/17 12:45 - Respiratory Exam Respiratory Exam: absent: Respiratory Distress - Cardiovascular Exam Cardiovascular Exam: Tachycardia - GI/Abdominal Exam GI & Abdominal Exam: Soft. absent: Distended, Firm, Tenderness - Neurological Exam Neurological Exam: Alert, Awake. absent: Oriented x3 Assessment and Plan - Assessment and Plan (Free Text) Assessment: 36F with gastric motility disorder Plan: no immediate surgical intervention possible repeat endoscopy will continue to follow clinically will d/w Dr Andrea Camacho, PGY3
[2017-04-10 08:35] LABS: ANISOCYTOSIS SLIGHT; BANDS 9 % (0-2); HYPOCHROMIC SLIGHT; LYMPHOCYTE 2 % (20-40); METAMYELOCYTE 1 % (0-0); MONOCYTE 4 % (0-10); NEUTROPHIL 84 % (50-75); PLATELET ESTIMATE INCREASED (NORMAL); POIKILOCYTOSIS SLIGHT; TOTAL CELLS COUNTED 100
[2017-04-10 08:36] LABS: BURR CELLS SLIGHT; OVALOCYTES SLIGHT; POLYCHROMIC SLIGHT; TARGET CELLS SLIGHT
[2017-04-10] MEDS: Saccharomyces Boulardi 250 mg Cap PO SCH ×2 (09:20→18:33)
--- NOTE | 2017-04-10 09:20 | CP.PCM.PN ---
<Kelechi Granger - Last Filed: 04/10/17 09:42> Subjective - Date & Time of Evaluation Date of Evaluation: 04/10/17 Time of Evaluation: 09:00 - Subjective Subjective: PGY4 GI Follow-up Pt seen and examined bedside No acute overnight events NG still in place 3.3L removed since insertion yesterday No BM overnight ROS: could not be conducted Objective - Vital Signs/Intake and Output Vital Signs (last 24 hours): Temp Pulse Resp BP Pulse Ox 99 F 120 H 18 97/61 L 96 04/10/17 04:00 04/10/17 08:00 04/10/17 08:00 04/10/17 07:54 04/10/17 08:00 Intake and Output: 04/10/17 04/10/17 06:59 18:59 Intake Total 2429 284 Output Total 1175 25 Balance 1254 259 - Medications Medications: Current Medications Acetaminophen (Tylenol 325 Mg Supp) 325 mg RI Q4 PRN PRN Reason: Fever >100.4 F Last Admin: 03/30/17 08:15 Dose: 325 mg Ascorbic Acid (Vitamin C 500 Mg Tab) 500 mg PO DAILY [facility] Last Admin: 04/09/17 10:20 Dose: Not Given Haloperidol Lactate (Haldol) 1 mg IVP BID PRN PRN Reason: Agitation Last Admin: 04/09/17 12:41 Dose: 1 mg Piperacillin Sod/Tazobactam Sod (Zosyn 3.375 Gm Iv Premix) 3.375 gm in 50 mls @ 100 mls/hr IVPB Q8H [facility] Last Admin: 04/10/17 01:34 Dose: 100 mls/hr Vancomycin/Sodium Chloride (Vancomycin 1 Gm/Ns 200 Ml) 1 gm in 200 mls @ 133.333 mls/hr IVPB Q24H [facility] Stop: 04/13/17 18:31 Last Admin: 04/09/17 18:55 Dose: 133.333 mls/hr Diltiazem HCl 125 mg/ Sodium (Chloride) 125 mls @ 5 mls/hr IV .Q24H PRN; 5 MG/ HR PRN Reason: Protocol Last Titration: 04/10/17 02:07 Dose: 0 mg/hr, 0 mls/hr Sodium Chloride 40 meq/Potassium Chloride 30 meq/Magnesium Sulfate 6 meq/ Calcium Gluconate 4.5 meq/Potassium Phosphate 15 mmole/Chromium/Copper/Manganese /Zinc 1 ml/ Multivitamins/Vitamin C 10 ml/ Amino Acids 1,052.1552 mls @ 42 mls/ hr IV .Q24H [facility] Stop: 04/10/17 17:59 Last Admin: 04/09/17 18:29 Dose: 42 mls/hr Fat Emulsion Intravenous (Intralipid 20%) 500 mls @ 50 mls/hr IV TuThSa@1800 [facility] Last Admin: 04/09/17 18:11 Dose: 50 mls/hr Lactated Ringer's (Lactated Ringer's) 1,000 mls @ 100 mls/hr IV .Q10H [facility] Last Admin: 04/10/17 07:45 Dose: 100 mls/hr Lorazepam (Ativan) 0.5 mg IVP Q3H PRN PRN Reason: Anxiety Last Admin: 04/10/17 08:00 Dose: 0.5 mg Metoclopramide HCl (Reglan) 10 mg IVP Q12 [facility] Last Admin: 04/09/17 21:44 Dose: 10 mg Ondansetron HCl (Zofran Inj) 4 mg IVP Q6H PRN PRN Reason: Nausea/Vomiting Pantoprazole Sodium (Protonix Inj) 40 mg IVP DAILY [facility] Last Admin: 04/09/17 10:21 Dose: 40 mg Saccharomyces Boulardii (Florastor) 250 mg PO BID [facility] Last Admin: 04/09/17 17:09 Dose: Not Given Thiamine HCl (Vitamin B1 Tab) 100 mg PO DAILY [facility] Last Admin: 04/09/17 10:20 Dose: Not Given - Labs Labs: 04/10/17 06:52 04/10/17 06:51 PT 21.6 SECONDS (9.7-12.2) H 04/08/17 12:45 INR 1.9 04/08/17 12:45 APTT 30 SECONDS (21-34) 04/08/17 12:45 - Constitutional Appears: In Acute Distress, Agitated, Confused - Head Exam Head Exam: ATRAUMATIC, NORMOCEPHALIC - Eye Exam Eye Exam: Normal appearance - ENT Exam ENT Exam: Mucous Membranes Moist - Respiratory Exam Respiratory Exam: Clear to Ausculation Bilateral, NORMAL BREATHING PATTERN. absent: Rales, Rhonchi, Wheezes, Respiratory Distress - Cardiovascular Exam Cardiovascular Exam: REGULAR RHYTHM, +S1, +S2 - GI/Abdominal Exam GI & Abdominal Exam: Soft, Hypoactive Bowel Sounds. absent: Guarding, Rigid, Tenderness, Organomegaly - Extremities Exam Extremities Exam: absent: Joint Swelling, Pedal Edema - Neurological Exam Neurological Exam: Altered - Psychiatric Exam Additional comments: cannot assess due to mental capacity and AMS - Skin Skin Exam: Dry, Intact, Normal Color, Warm Assessment and Plan - Assessment and Plan (Free Text) Assessment: Alondra Rivera is a 37F w/ hx of Schizophrenia, Mental disability who presents to the hospital due to abd pain diarrhea. She was found to have acute pancreatitis and severe gastric distention with retained food, etiology gastroparesis vs small bowel obstruction?, which markedly improved after NG placement. Subsequently, her condition again worsened after a few days, after resuming diet. She also has presumed sepsis of unknown source and renal failure. Acute pancreatitis, etiology unknown, r/o hyper TG, IGG4; DDx: medication induced?; no gallstone on CT (CBD noormal) or elevated LFTs Loculated fluid collection, etiology unknown, abscess vs psuedocyst vs malignancy Marked stomach distention etiology unclear; distal obstruction vs ilieus vs gastroparesis ; rule out abd compartment syndrome Worsening Leukocytosis w/ SIRS, resumed infectious etiology Renal failure, ATN?, worsening Plan: -s/p NG placement, 3.3L removed -continue antibiotics as per ID -if pt is stable could possible assess fluid collection via EUS -continue supportive care -hold feeds -IGG4 and TG levels pending -if renal function improves consider MRA, MRV -continue PPI daily -continue LR -keep hgb > 7 D/w Dr. Singh <Samantha DANIELLE,[facility] - Last Filed: 04/10/17 14:12> Objective - Vital Signs/Intake and Output Vital Signs (last 24 hours): Temp Pulse Resp BP Pulse Ox 98.6 F 123 H 50 H 111/68 97 04/10/17 09:00 04/10/17 12:00 04/10/17 12:00 04/10/17 11:53 04/10/17 12:00 Intake and Output: 04/10/17 04/10/17 06:59 18:59 Intake Total 2429 802 Output Total 1175 245 Balance 1254 557 - Medications Medications: Current Medications Acetaminophen (Tylenol 325 Mg Supp) 325 mg RI Q4 PRN PRN Reason: Fever >100.4 F Last Admin: 04/10/17 13:20 Dose: 325 mg Ascorbic Acid (Vitamin C 500 Mg Tab) 500 mg PO DAILY [facility] Last Admin: 04/10/17 09:26 Dose: Not Given Haloperidol Lactate (Haldol) 1 mg IVP BID PRN PRN Reason: Agitation Last Admin: 04/09/17 12:41 Dose: 1 mg Piperacillin Sod/Tazobactam Sod (Zosyn 3.375 Gm Iv Premix) 3.375 gm in 50 mls @ 100 mls/hr IVPB Q8H [facility] Last Admin: 04/10/17 09:30 Dose: 100 mls/hr Vancomycin/Sodium Chloride (Vancomycin 1 Gm/Ns 200 Ml) 1 gm in 200 mls @ 133.333 mls/hr IVPB Q24H [facility] Stop: 04/13/17 18:31 Last Admin: 04/09/17 18:55 Dose: 133.333 mls/hr Diltiazem HCl 125 mg/ Sodium (Chloride) 125 mls @ 5 mls/hr IV .Q24H PRN; 5 MG/ HR PRN Reason: Protocol Last Titration: 04/10/17 02:07 Dose: 0 mg/hr, 0 mls/hr Sodium Chloride 40 meq/Potassium Chloride 30 meq/Magnesium Sulfate 6 meq/ Calcium Gluconate 4.5 meq/Potassium Phosphate 15 mmole/Chromium/Copper/Manganese /Zinc 1 ml/ Multivitamins/Vitamin C 10 ml/ Amino Acids 1,052.1552 mls @ 42 mls/ hr IV .Q24H [facility] Stop: 04/10/17 17:59 Last Admin: 04/09/17 18:29 Dose: 42 mls/hr Fat Emulsion Intravenous (Intralipid 20%) 500 mls @ 50 mls/hr IV TuThSa@1800 [facility] Last Admin: 04/09/17 18:11 Dose: 50 mls/hr Lactated Ringer's (Lactated Ringer's) 1,000 mls @ 100 mls/hr IV .Q10H [facility] Last Admin: 04/10/17 11:59 Dose: 100 mls/hr Sodium Chloride 40 meq/Potassium Chloride 30 meq/Magnesium Sulfate 6 meq/ Calcium Gluconate 4.5 meq/Potassium Phosphate 15 mmole/Chromium/Copper/Manganese /Zinc 1 ml/ Amino Acids 1,042.1552 mls @ 42 mls/hr IV .Q24H [facility] Stop: 04/11/17 17:59 Lorazepam (Ativan) 0.5 mg IVP Q3H PRN PRN Reason: Anxiety Last Admin: 04/10/17 08:00 Dose: 0.5 mg Metoclopramide HCl (Reglan) 10 mg IVP Q12 [facility] Last Admin: 04/10/17 09:45 Dose: 10 mg Ondansetron HCl (Zofran Inj) 4 mg IVP Q6H PRN PRN Reason: Nausea/Vomiting Pantoprazole Sodium (Protonix Inj) 40 mg IVP DAILY [facility] Last Admin: 04/10/17 09:44 Dose: 40 mg Saccharomyces Boulardii (Florastor) 250 mg PO BID [facility] Last Admin: 04/10/17 09:20 Dose: Not Given Thiamine HCl (Vitamin B1 Tab) 100 mg PO DAILY [facility] Last Admin: 04/10/17 09:26 Dose: Not Given - Labs Labs: 04/10/17 06:52 04/10/17 06:51 PT 21.6 SECONDS (9.7-12.2) H 04/08/17 12:45 INR 1.9 04/08/17 12:45 APTT 30 SECONDS (21-34) 04/08/17 12:45 Attending/Attestation - Attestation I have personally seen and examined this patient.: Yes I have fully participated in the care of the patient.: Yes I have reviewed all pertinent clinical information, including history, physical exam and plan: Yes Notes (Text): 04/10/17 14:00 Patient seen with GI fellow in MICU. Discussed with surgical service and general assembler installer. GI has been requested to see patient for a second opinion by surgical service and MICU. Acute complicated pancreatitis Gastroparesis Ileus Azotemia worsening Mental retardation In a nutshell this is a 37 year old F with ?Schizophrenia, Mental retardation on seroquel and SSRI at home which were abruptly stopped upon coming to hospital 8 days ago for abdominal distension and constipation and leukocytosis and lactic acidosis and Tmax of 101. Hospital course in past 8 days- she was treated for UTI, gastroparesis and had an EGD that showed food bezoar in antrum and fundus. EGD was done till fourth portion of duodenum and no pyloric obstruction found. She was also found to have elevated lipase and was treated with IVF. NGT was placed for ileus/ gastric distension and 2 lts fluid was aspirated. She was started on CLD that she tolerated. While on floor her leukocytosis got worse and new onset azotemia started. Repeat CTAP without IV/ po contrast shows loculated fluid collection ? pseudocyst. IR guided fluid aspiration not amenable as per MICU. Concern for worsening complicated pancreatitis with ileus and gastric distenson. Will start two IV lines and give 250 cc/hr fluid RL. Check IgG4 levels and TG. When renal function improves will get repeat CT with contrast. Antibiotics for broad coverage including E coli/ klebsiella coverage. Continue daily PPI. Will consider EUS guided fluid aspiration if clinically not improving. Blood and urine cultures daily. In past 24 hours her leukocytosis has improved although she is still tachycardic and has azotemia. NGT output was 3 litres. Continue reglan. Will continue high volume RL at 250cc/hr and repeat bmp Q 8 hours. Repeat non contrast imaging will be futile to show pancreas. Will repeat with IV contrast once kidney function improves. Strict I/O. All above discussed with general assembler installer in detail and last Ct scan abdomen reviewed. DVT prophylaxis
[2017-04-10] MEDS ORDERED: Lactated Ringer's 1,000 ML IV SCH (09:30)
--- NOTE | 2017-04-10 09:36 | PN ---
DATE: LOCATION: ICU 17. SUBJECTIVE: This is a 36-year-old female, seen and examined early in the morning, still on n.p.o. with abdominal distention. 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 Lau. At this point, I would sign off the case and will follow up only p.r.n. If you need any further recommendation or evaluation, please contact me. The patient to be followed by Dr. Lau as per the new orders of the ICU staff. William Michael MD
[2017-04-10] MEDS ORDERED: Albumin Human 5% (12.5 gm/250 ml) IV ONE (15:45)
--- NOTE | 2017-04-10 17:29 | CP.PCM.PN ---
Subjective - Date & Time of Evaluation Date of Evaluation: 04/10/17 Time of Evaluation: 08:00 - Subjective Subjective: iv rx reordered remains in ICU discussed on rounds Objective - Vital Signs/Intake and Output Vital Signs (last 24 hours): Temp Pulse Resp BP Pulse Ox 98.6 F 123 H 50 H 111/68 97 04/10/17 09:00 04/10/17 12:00 04/10/17 12:00 04/10/17 11:53 04/10/17 12:00 Intake and Output: 04/10/17 04/10/17 06:59 18:59 Intake Total 2429 802 Output Total 1175 245 Balance 1254 557 - Medications Medications: Current Medications Acetaminophen (Tylenol 325 Mg Supp) 325 mg OR Q4 PRN PRN Reason: Fever >100.4 F Last Admin: 04/10/17 13:20 Dose: 325 mg Ascorbic Acid (Vitamin C 500 Mg Tab) 500 mg PO DAILY [facility] Last Admin: 04/10/17 09:26 Dose: Not Given Haloperidol Lactate (Haldol) 1 mg IVP BID PRN PRN Reason: Agitation Last Admin: 04/09/17 12:41 Dose: 1 mg Piperacillin Sod/Tazobactam Sod (Zosyn 3.375 Gm Iv Premix) 3.375 gm in 50 mls @ 100 mls/hr IVPB Q8H [facility] Last Admin: 04/10/17 09:30 Dose: 100 mls/hr Vancomycin/Sodium Chloride (Vancomycin 1 Gm/Ns 200 Ml) 1 gm in 200 mls @ 133.333 mls/hr IVPB Q24H [facility] Stop: 04/13/17 18:31 Last Admin: 04/09/17 18:55 Dose: 133.333 mls/hr Diltiazem HCl 125 mg/ Sodium (Chloride) 125 mls @ 5 mls/hr IV .Q24H PRN; 5 MG/ HR PRN Reason: Protocol Last Titration: 04/10/17 02:07 Dose: 0 mg/hr, 0 mls/hr Sodium Chloride 40 meq/Potassium Chloride 30 meq/Magnesium Sulfate 6 meq/ Calcium Gluconate 4.5 meq/Potassium Phosphate 15 mmole/Chromium/Copper/Manganese /Zinc 1 ml/ Multivitamins/Vitamin C 10 ml/ Amino Acids 1,052.1552 mls @ 42 mls/ hr IV .Q24H [facility] Stop: 04/10/17 17:59 Last Admin: 04/09/17 18:29 Dose: 42 mls/hr Fat Emulsion Intravenous (Intralipid 20%) 500 mls @ 50 mls/hr IV TuThSa@1800 [facility] Last Admin: 04/09/17 18:11 Dose: 50 mls/hr Lactated Ringer's (Lactated Ringer's) 1,000 mls @ 100 mls/hr IV .Q10H [facility] Last Admin: 04/10/17 11:59 Dose: 100 mls/hr Sodium Chloride 40 meq/Potassium Chloride 30 meq/Magnesium Sulfate 6 meq/ Calcium Gluconate 4.5 meq/Potassium Phosphate 15 mmole/Chromium/Copper/Manganese /Zinc 1 ml/ Amino Acids 1,042.1552 mls @ 42 mls/hr IV .Q24H [facility] Stop: 04/11/17 17:59 Lorazepam (Ativan) 0.5 mg IVP Q3H PRN PRN Reason: Anxiety Last Admin: 04/10/17 08:00 Dose: 0.5 mg Metoclopramide HCl (Reglan) 10 mg IVP Q12 [facility] Last Admin: 04/10/17 09:45 Dose: 10 mg Ondansetron HCl (Zofran Inj) 4 mg IVP Q6H PRN PRN Reason: Nausea/Vomiting Pantoprazole Sodium (Protonix Inj) 40 mg IVP DAILY [facility] Last Admin: 04/10/17 09:44 Dose: 40 mg Saccharomyces Boulardii (Florastor) 250 mg PO BID [facility] Last Admin: 04/10/17 09:20 Dose: Not Given Thiamine HCl (Vitamin B1 Tab) 100 mg PO DAILY [facility] Last Admin: 04/10/17 09:26 Dose: Not Given - Labs Labs: 04/10/17 06:52 04/10/17 06:51 PT 21.6 SECONDS (9.7-12.2) H 04/08/17 12:45 INR 1.9 04/08/17 12:45 APTT 30 SECONDS (21-34) 04/08/17 12:45 - Constitutional Appears: Non-toxic, Chronically Ill - Head Exam Head Exam: NORMOCEPHALIC - Eye Exam Eye Exam: absent: Scleral icterus - ENT Exam ENT Exam: Mucous Membranes Dry - Neck Exam Neck Exam: absent: Lymphadenopathy - Respiratory Exam Respiratory Exam: Decreased Breath Sounds - Cardiovascular Exam Cardiovascular Exam: REGULAR RHYTHM - GI/Abdominal Exam GI & Abdominal Exam: Distended - Rectal Exam Rectal Exam: Deferred - Exam Exam: NORMAL INSPECTION Assessment and Plan - Assessment and Plan (Free Text) Assessment: cont rx pancreatitis iv rx in progress wbc trending down
[2017-04-10] MEDS ORDERED: PPN #3 IV SCH (18:00)
--- NOTE | 2017-04-10 18:36 | CP.PCM.PN ---
Subjective - Date & Time of Evaluation Date of Evaluation: 04/10/17 Time of Evaluation: 11:35 - Subjective Subjective: Patient seen and evaluated HR improving No chest pain or dyspnea Physical Exam - Constitutional Appears: In Acute Distress, Agitated, Chronically Ill - Head Exam Head Exam: ATRAUMATIC, NORMAL INSPECTION - Eye Exam Eye Exam: EOMI, Normal appearance - Neck Exam Neck exam: Positive for: Normal Inspection. Negative for: Tenderness - Respiratory Exam Respiratory Exam: Decreased Breath Sounds, NORMAL BREATHING PATTERN - Cardiovascular Exam Cardiovascular Exam: Tachycardia, +S1 - GI/Abdominal Exam GI & Abdominal Exam: Soft, Tenderness - Extremities Exam Extremities exam: Positive for: normal inspection. Negative for: tenderness - Neurological Exam Neurological exam: Altered, CN II-XII Intact - Skin Skin Exam: Dry, Warm Objective - Vital Signs/Intake and Output Vital Signs (last 24 hours): Temp Pulse Resp BP Pulse Ox 98.6 F 123 H 50 H 111/68 97 04/10/17 09:00 04/10/17 12:00 04/10/17 12:00 04/10/17 11:53 04/10/17 12:00 Intake and Output: 04/10/17 04/10/17 06:59 18:59 Intake Total 2429 802 Output Total 1175 245 Balance 1254 557 - Medications Medications: Current Medications Acetaminophen (Tylenol 325 Mg Supp) 325 mg CA Q4 PRN PRN Reason: Fever >100.4 F Last Admin: 04/10/17 13:20 Dose: 325 mg Ascorbic Acid (Vitamin C 500 Mg Tab) 500 mg PO DAILY [facility] Last Admin: 04/10/17 09:26 Dose: Not Given Haloperidol Lactate (Haldol) 1 mg IVP BID PRN PRN Reason: Agitation Last Admin: 04/09/17 12:41 Dose: 1 mg Piperacillin Sod/Tazobactam Sod (Zosyn 3.375 Gm Iv Premix) 3.375 gm in 50 mls @ 100 mls/hr IVPB Q8H [facility] Last Admin: 04/10/17 09:30 Dose: 100 mls/hr Vancomycin/Sodium Chloride (Vancomycin 1 Gm/Ns 200 Ml) 1 gm in 200 mls @ 133.333 mls/hr IVPB Q24H [facility] Stop: 04/13/17 18:31 Last Admin: 04/09/17 18:55 Dose: 133.333 mls/hr Diltiazem HCl 125 mg/ Sodium (Chloride) 125 mls @ 5 mls/hr IV .Q24H PRN; 5 MG/ HR PRN Reason: Protocol Last Titration: 04/10/17 02:07 Dose: 0 mg/hr, 0 mls/hr Fat Emulsion Intravenous (Intralipid 20%) 500 mls @ 50 mls/hr IV TuThSa@1800 [facility] Last Admin: 04/09/17 18:11 Dose: 50 mls/hr Lactated Ringer's (Lactated Ringer's) 1,000 mls @ 100 mls/hr IV .Q10H [facility] Last Admin: 04/10/17 11:59 Dose: 100 mls/hr Sodium Chloride 40 meq/Potassium Chloride 30 meq/Magnesium Sulfate 6 meq/ Calcium Gluconate 4.5 meq/Potassium Phosphate 15 mmole/Chromium/Copper/Manganese /Zinc 1 ml/ Amino Acids 1,042.1552 mls @ 42 mls/hr IV .Q24H [facility] Stop: 04/11/17 17:59 Lorazepam (Ativan) 0.5 mg IVP Q3H PRN PRN Reason: Anxiety Last Admin: 04/10/17 08:00 Dose: 0.5 mg Metoclopramide HCl (Reglan) 10 mg IVP Q12 [facility] Last Admin: 04/10/17 09:45 Dose: 10 mg Ondansetron HCl (Zofran Inj) 4 mg IVP Q6H PRN PRN Reason: Nausea/Vomiting Pantoprazole Sodium (Protonix Inj) 40 mg IVP DAILY [facility] Last Admin: 04/10/17 09:44 Dose: 40 mg Saccharomyces Boulardii (Florastor) 250 mg PO BID [facility] Last Admin: 04/10/17 18:33 Dose: Not Given Thiamine HCl (Vitamin B1 Tab) 100 mg PO DAILY [facility] Last Admin: 04/10/17 09:26 Dose: Not Given - Labs Labs: 04/10/17 06:52 04/10/17 06:51 PT 21.6 SECONDS (9.7-12.2) H 04/08/17 12:45 INR 1.9 04/08/17 12:45 APTT 30 SECONDS (21-34) 04/08/17 12:45 Assessment and Plan - Assessment and Plan (Free Text) Assessment: Assessment & Plan - Assessment and Plan (Free Text) Assessment: Tachycardia JIMBO Acute pancreatitis Volume depletion Sepsis syndrome Intra-abdominal fluid collection- possible abscess Plan: ECHO: Normal EF and no valvular issues Tachycardia most likely due to medical issues Cardizem drip/PO as needed
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
--- NOTE | 2017-04-10 20:28 | CP.CCUPN ---
CCU Subjective - Physician Review Events Since Last Encounter (Free Text): 04/10/17 20:24 not communicative, constant moaning. CCU Objective - Vital Signs / Intake & Output Intake and Output (Last 8hrs): Intake & Output 04/10/17 04/10/17 04/10/17 06:59 14:59 22:59 Intake Total 1551 802 Output Total 200 245 Balance 1351 557 Weight 145 lb Intake: IV 45 Intake, IV Amount 1506 802 Left Antecubital 750 550 Left Distal Port 20 0 Left Hand 336 252 Left Hand Y-Port 400 Output: Gastric Amount 0 200 Right Nares 0 200 Urine 200 45 Urethral (Tovar) 200 45 Other: # Bowel Movements 1 - Physical Exam Head: Positive for: Atraumatic, Normocephalic. Negative for: Tenderness Pupils: Positive for: PERRL Extroacular Muscles: Positive for: EOMI Mouth: Positive for: Moist Mucous Membranes. Negative for: Dry, Drooling Nose (External): Positive for: Other (NGT in place) Nose (Internal): Positive for: Normal Inspection, Moist Neck: Positive for: Normal Range of Motion. Negative for: JVD, Lymphadenopathy Respiratory/Chest: Positive for: Clear to Auscultation. Negative for: Respiratory Distress, Accessory Muscle Use Cardiovascular: Positive for: Regular Rate and Rhythm, Normal S1, S2 Abdomen: Positive for: Normal Bowel Sounds. Negative for: Distention, Guarding Upper Extremity: Positive for: Normal Inspection, Normal ROM, Capillary Refill < 2s. Negative for: Edema Lower Extremity: Positive for: Normal Inspection. Negative for: Edema Neurological: Positive for: CN II-XII Intact Skin: Positive for: Warm, Pale Psychiatric: Positive for: Alert - Medications Active Medications: Active Medications Generic Name Dose Route Start Last Admin Trade Name Freq PRN Reason Stop Dose Admin Acetaminophen 325 mg 03/29/17 07:57 04/10/17 13:20 Tylenol 325 Mg Supp AR 325 mg Q4 PRN Administration Fever >100.4 F Ascorbic Acid 500 mg 04/08/17 12:30 04/10/17 09:26 Vitamin C 500 Mg Tab PO Not Given DAILY AGUSTIN Haloperidol Lactate 1 mg 03/29/17 18:47 04/09/17 12:41 Haldol IVP 1 mg BID PRN Administration Agitation Piperacillin Sod/Tazobactam Sod 3.375 gm in 50 mls @ 100 mls/hr 03/28/17 02: 30 04/10/17 18:41 Zosyn 3.375 Gm Iv Premix IVPB 100 mls/hr Q8H AGUSTIN Administration Vancomycin/Sodium Chloride 1 gm in 200 mls @ 133.333 mls/hr 04/08/17 18:30 18:55 Vancomycin 1 Gm/Ns 200 Ml IVPB 04/13/17 18:31 133.333 mls/hr Q24H AGUSTIN Administration Diltiazem HCl 125 mg/ Sodium 125 mls @ 5 mls/hr 04/08/17 20:05 04/10/17 02:07 Chloride IV 0 mg/hr .Q24H PRN 0 mls/hr Protocol Titration 5 MG/HR Fat Emulsion Intravenous 500 mls @ 50 mls/hr 04/09/17 18:00 04/09/17 18:11 Intralipid 20% IV 50 mls/hr TuThSa@1800 AGUSTIN Administration Lactated Ringer's 1,000 mls @ 100 mls/hr 04/10/17 09:43 04/10/17 18:55 Lactated Ringer's IV 100 mls/hr .Q10H AGUSTIN Administration Sodium Chloride 40 meq/ 1,042.1552 mls @ 42 mls/hr 04/10/17 18:00 04/10/17 18 :41 Potassium Chloride 30 meq/ IV 04/11/17 17:59 42 mls/hr Magnesium Sulfate 6 meq/ .Q24H AGUSTIN Administration Calcium Gluconate 4.5 meq/ Potassium Phosphate 15 mmole/ Chromium/Copper/Manganese/Zinc 1 ml/ Amino Acids Lorazepam 0.5 mg 04/01/17 16:08 04/10/17 18:39 Ativan IVP 0.5 mg Q3H PRN Administration Anxiety Metoclopramide HCl 10 mg 04/03/17 22:00 04/10/17 09:45 Reglan IVP 10 mg Q12 AGUSTIN Administration Ondansetron HCl 4 mg 03/27/17 23:45 Zofran Inj IVP Q6H PRN Nausea/Vomiting Pantoprazole Sodium 40 mg 04/02/17 10:00 04/10/17 09:44 Protonix Inj IVP 40 mg DAILY AGUSTIN Administration Saccharomyces Boulardii 250 mg 04/08/17 18:00 04/10/17 18:33 Florastor PO Not Given BID AGUSTIN Thiamine HCl 100 mg 04/08/17 12:30 04/10/17 09:26 Vitamin B1 Tab PO Not Given DAILY [facility] - Patient Studies Lab Studies: Microbiology Studies 04/08/17 11:47 Blood Culture - Preliminary Blood-Venous NO GROWTH AFTER 48 HOURS 04/08/17 11:47 Blood Culture - Preliminary Blood-Venous NO GROWTH AFTER 48 HOURS 04/08/17 07:00 MRSA Culture (Admit) - Final Naris MRSA NOT DETECTED 04/08/17 12:10 Group A Strep Throat Culture - Final Throat NO BETA STREP GROUP A ISOLATED. Lab Studies 04/10/17 04/10/17 04/10/17 Range/Units 17:48 11:16 08:35 WBC (4.8-10.8) K/uL RBC (3.80-5.20) Mil/uL Hgb (11.0-16.0) g/dL Hct (34.0-47.0) % MCV (81.0-99.0) fL MCH (27.0-31.0) pg MCHC (33.0-37.0) g/dL RDW (11.5-14.5) % Plt Count (130-400) K/uL MPV (7.2-11.7) fL Neut % (Auto) (50.0-75.0) % Lymph % (Auto) (20.0-40.0) % [place] % (Auto) (0.0-10.0) % Eos % (Auto) (0.0-4.0) % Baso % (Auto) (0.0-2.0) % Neut # (1.8-7.0) K/uL Lymph # (1.0-4.3) K/uL [place] # (0.0-0.8) K/uL Eos # (0.0-0.7) K/uL Baso # (0.0-0.2) K/uL Neutrophils % (Manual) (50-75) % Band Neutrophils % (0-2) % Lymphocytes % (Manual) (20-40) % Monocytes % (Manual) (0-10) % Metamyelocytes % (0-0) % Platelet Estimate (NORMAL) Polychromasia Hypochromasia (manual) Poikilocytosis (manual Anisocytosis (manual) Target Cells Ovalocytes [place] Cells Sodium (132-148) mmol/L Potassium (3.6-5.2) mmol/L Chloride (98-107) mmol/L Carbon Dioxide (22-30) mmol/L Anion Gap (10-20) BUN (7-17) mg/dL Creatinine (0.7-1.2) mg/dL Est GFR ( Amer) Est GFR (Non-Af Amer) POC Glucose (mg/dL) 74 89 (65-110) mg/dL Random Glucose (65-105) mg/dL Lactic Acid 2.5 H (0.7-2.1) mmol/L Calcium (8.6-10.4) mg/dl Phosphorus (2.5-4.5) mg/dL Magnesium (1.6-2.3) mg/dL Total Bilirubin (0.2-1.3) mg/dL AST (14-36) U/L ALT (9-52) U/L Alkaline Phosphatase (38-126) U/L Total Protein (6.3-8.3) g/dL Albumin (3.5-5.0) g/dL Globulin (2.2-3.9) gm/dL Albumin/Globulin Ratio (1.0-2.1) 04/10/17 04/10/17 04/10/17 Range/Units 06:52 06:51 05:17 WBC 20.4 H (4.8-10.8) K/uL RBC 2.77 L (3.80-5.20) Mil/uL Hgb 8.0 L (11.0-16.0) g/dL Hct 23.0 L (34.0-47.0) % MCV 83.1 (81.0-99.0) fL MCH 28.9 (27.0-31.0) pg MCHC 34.8 (33.0-37.0) g/dL RDW 14.0 (11.5-14.5) % Plt Count 616 H D (130-400) K/uL MPV 8.0 (7.2-11.7) fL Neut % (Auto) 84.6 H (50.0-75.0) % Lymph % (Auto) 6.6 L (20.0-40.0) % [place] % (Auto) 7.7 (0.0-10.0) % Eos % (Auto) 0.7 (0.0-4.0) % Baso % (Auto) 0.4 (0.0-2.0) % Neut # 17.3 H (1.8-7.0) K/uL Lymph # 1.4 (1.0-4.3) K/uL [place] # 1.6 H (0.0-0.8) K/uL Eos # 0.2 (0.0-0.7) K/uL Baso # 0.1 (0.0-0.2) K/uL Neutrophils % (Manual) 84 H (50-75) % Band Neutrophils % 9 H (0-2) % Lymphocytes % (Manual) 2 L (20-40) % Monocytes % (Manual) 4 (0-10) % Metamyelocytes % 1 H (0-0) % Platelet Estimate Increased H (NORMAL) Polychromasia Slight Hypochromasia (manual) Slight Poikilocytosis (manual Slight Anisocytosis (manual) Slight Target Cells Slight Ovalocytes Slight [place] Cells Slight Sodium 134 (132-148) mmol/L Potassium 4.0 (3.6-5.2) mmol/L Chloride 106 (98-107) mmol/L Carbon Dioxide 16 L (22-30) mmol/L Anion Gap 16 (10-20) BUN 37 H (7-17) mg/dL Creatinine 4.8 H (0.7-1.2) mg/dL Est GFR ( Amer) 13 Est GFR (Non-Af Amer) 10 POC Glucose (mg/dL) 109 (65-110) mg/dL Random Glucose 87 (65-105) mg/dL Lactic Acid (0.7-2.1) mmol/L Calcium 7.8 L (8.6-10.4) mg/dl Phosphorus 5.3 H (2.5-4.5) mg/dL Magnesium 2.0 (1.6-2.3) mg/dL Total Bilirubin 0.5 (0.2-1.3) mg/dL AST 22 (14-36) U/L ALT 24 (9-52) U/L Alkaline Phosphatase 114 (38-126) U/L Total Protein 5.5 L (6.3-8.3) g/dL Albumin 2.4 L (3.5-5.0) g/dL Globulin 3.0 (2.2-3.9) gm/dL Albumin/Globulin Ratio 0.8 L (1.0-2.1) 04/09/17 Range/Units 23:37 WBC (4.8-10.8) K/uL RBC (3.80-5.20) Mil/uL Hgb (11.0-16.0) g/dL Hct (34.0-47.0) % MCV (81.0-99.0) fL MCH (27.0-31.0) pg MCHC (33.0-37.0) g/dL RDW (11.5-14.5) % Plt Count (130-400) K/uL MPV (7.2-11.7) fL Neut % (Auto) (50.0-75.0) % Lymph % (Auto) (20.0-40.0) % [place] % (Auto) (0.0-10.0) % Eos % (Auto) (0.0-4.0) % Baso % (Auto) (0.0-2.0) % Neut # (1.8-7.0) K/uL Lymph # (1.0-4.3) K/uL [place] # (0.0-0.8) K/uL Eos # (0.0-0.7) K/uL Baso # (0.0-0.2) K/uL Neutrophils % (Manual) (50-75) % Band Neutrophils % (0-2) % Lymphocytes % (Manual) (20-40) % Monocytes % (Manual) (0-10) % Metamyelocytes % (0-0) % Platelet Estimate (NORMAL) Polychromasia Hypochromasia (manual) Poikilocytosis (manual Anisocytosis (manual) Target Cells Ovalocytes [place] Cells Sodium (132-148) mmol/L Potassium (3.6-5.2) mmol/L Chloride (98-107) mmol/L Carbon Dioxide (22-30) mmol/L Anion Gap (10-20) BUN (7-17) mg/dL Creatinine (0.7-1.2) mg/dL Est GFR ( Amer) Est GFR (Non-Af Amer) POC Glucose (mg/dL) 103 (65-110) mg/dL Random Glucose (65-105) mg/dL Lactic Acid (0.7-2.1) mmol/L Calcium (8.6-10.4) mg/dl Phosphorus (2.5-4.5) mg/dL Magnesium (1.6-2.3) mg/dL Total Bilirubin (0.2-1.3) mg/dL AST (14-36) U/L ALT (9-52) U/L Alkaline Phosphatase (38-126) U/L Total Protein (6.3-8.3) g/dL Albumin (3.5-5.0) g/dL Globulin (2.2-3.9) gm/dL Albumin/Globulin Ratio (1.0-2.1) Laboratory Results - last 24 hr 04/09/17 04/10/17 04/10/17 23:37 05:17 06:51 WBC RBC Hgb Hct MCV MCH MCHC RDW Plt Count MPV Neut % (Auto) Lymph % (Auto) [place] % (Auto) Eos % (Auto) Baso % (Auto) Neut # Lymph # [place] # Eos # Baso # Neutrophils % (Manual) Band Neutrophils % Lymphocytes % (Manual) Monocytes % (Manual) Metamyelocytes % Platelet Estimate Polychromasia Hypochromasia (manual) Poikilocytosis (manual Anisocytosis (manual) Target Cells Ovalocytes [place] Cells Sodium 134 Potassium 4.0 Chloride 106 Carbon Dioxide 16 L Anion Gap 16 BUN 37 H Creatinine 4.8 H Est GFR ( Amer) 13 Est GFR (Non-Af Amer) 10 POC Glucose (mg/dL) 103 109 Random Glucose 87 Lactic Acid Calcium 7.8 L Phosphorus 5.3 H Magnesium 2.0 Total Bilirubin 0.5 AST 22 ALT 24 Alkaline Phosphatase 114 Total Protein 5.5 L Albumin 2.4 L Globulin 3.0 Albumin/Globulin Ratio 0.8 L 04/10/17 04/10/17 04/10/17 06:52 08:35 11:16 WBC 20.4 H RBC 2.77 L Hgb 8.0 L Hct 23.0 L MCV 83.1 MCH 28.9 MCHC 34.8 RDW 14.0 Plt Count 616 H D MPV 8.0 Neut % (Auto) 84.6 H Lymph % (Auto) 6.6 L [place] % (Auto) 7.7 Eos % (Auto) 0.7 Baso % (Auto) 0.4 Neut # 17.3 H Lymph # 1.4 [place] # 1.6 H Eos # 0.2 Baso # 0.1 Neutrophils % (Manual) 84 H Band Neutrophils % 9 H Lymphocytes % (Manual) 2 L Monocytes % (Manual) 4 Metamyelocytes % 1 H Platelet Estimate Increased H Polychromasia Slight Hypochromasia (manual) Slight Poikilocytosis (manual Slight Anisocytosis (manual) Slight Target Cells Slight Ovalocytes Slight [place]elia Cells Slight Sodium Potassium Chloride Carbon Dioxide Anion Gap BUN Creatinine Est GFR ( Amer) Est GFR (Non-Af Amer) POC Glucose (mg/dL) 89 Random Glucose Lactic Acid 2.5 H Calcium Phosphorus Magnesium Total Bilirubin AST ALT Alkaline Phosphatase Total Protein Albumin Globulin Albumin/Globulin Ratio 04/10/17 17:48 WBC RBC Hgb Hct MCV MCH MCHC RDW Plt Count MPV Neut % (Auto) Lymph % (Auto) [place] % (Auto) Eos % (Auto) Baso % (Auto) Neut # Lymph # [place] # Eos # Baso # Neutrophils % (Manual) Band Neutrophils % Lymphocytes % (Manual) Monocytes % (Manual) Metamyelocytes % Platelet Estimate Polychromasia Hypochromasia (manual) Poikilocytosis (manual Anisocytosis (manual) Target Cells Ovalocytes [place] Cells Sodium Potassium Chloride Carbon Dioxide Anion Gap BUN Creatinine Est GFR ( Amer) Est GFR (Non-Af Amer) POC Glucose (mg/dL) 74 Random Glucose Lactic Acid Calcium Phosphorus Magnesium Total Bilirubin AST ALT Alkaline Phosphatase Total Protein Albumin Globulin Albumin/Globulin Ratio Fingerstick Blood Sugar Results: 89 Review of Systems - Review of Systems Systems not reviewed;Unavailable: Altered Mental Status Critical Care Progress Note - Nutrition Nutrition: Nutrition Category Date Time Status NPO Diet [DIET] Diets 04/08/17 Dinner Active Assessment/Plan (1) Acute pancreatitis Assessment and plan: second opinion, GI consultation. Also feel this acute pancreatitis with associated ileus. Upon reviewing CT abdomen, possible pancreatic pseudocyst. If patient does not improve, will need to perform FNA for culture and sensitivities. NGT to suction, marked improvement in abdominal distention. LR@ 100. Patient is also in oliguric renal failure, will add albumin drip. If no improvement may need dialysis. Current Visit: Yes Status: Acute
[2017-04-11] MEDS: Piperacill/Tazo 3.375gm in Dex 3.375 GM/50 ML BAG IVPB SCH ×3 (01:30→19:19)
[2017-04-11] MEDS: Lactated Ringer's 1,000 ML IV SCH ×3 (06:20→19:19)
[2017-04-11 06:56] LABS: BASO % 0.3 % (0.0-2.0); EOS # 0.2 K/uL (0.0-0.7); EOS % 1.8 % (0.0-4.0); HEMOGLOBIN 7.8 g/dL (11.0-16.0); LYMPH # 1.8 K/uL (1.0-4.3); LYMPH % 13.6 % (20.0-40.0); MEAN CELL VOLUME 82.9 fL (81.0-99.0); MEAN CORPUSCULAR HEMOGLOBIN 28.4 pg (27.0-31.0); MEAN CORPUSCULAR HGB CONC 34.3 g/dL (33.0-37.0); MEAN PLATELET VOLUME 7.9 fL (7.2-11.7); MONO # 1.4 K/uL (0.0-0.8); MONO % 10.2 % (0.0-10.0); NEUT % 74.1 % (50.0-75.0); RBC 2.73 Mil/uL (3.80-5.20); WHITE BLOOD COUNT 13.5 K/uL (4.8-10.8)
[2017-04-11 07:26] LABS: ALB/GLOB RATIO 0.8 (1.0-2.1); ALBUMIN 2.6 g/dL (3.5-5.0); CALCIUM 8.3 mg/dl (8.6-10.4)
--- NOTE | 2017-04-11 09:19 | CP.PCM.PN ---
Subjective - Date & Time of Evaluation Date of Evaluation: 04/11/17 Time of Evaluation: 08:30 - Subjective Subjective: General surgery consult note for Dr. Bishnu Rothman, PGY-1 Pt S & E at bedside. Pt resting comfortably in bed with sitter at side. No acute events overnight per nursing, had BM x 2 overnight, some pain medication given as per ICU. Pt unarousable during exam. NGT w/500cc out over 12H. Objective - Vital Signs/Intake and Output Vital Signs (last 24 hours): Temp Pulse Resp BP Pulse Ox 98.2 F 101 H 13 105/75 100 04/11/17 04:00 04/11/17 08:01 04/11/17 08:01 04/11/17 08:01 04/11/17 08:01 Intake and Output: 04/11/17 04/11/17 06:59 18:59 Intake Total 1904 284 Output Total 1210 Balance 694 284 - Medications Medications: Current Medications Acetaminophen (Tylenol 325 Mg Supp) 325 mg [place] Q4 PRN PRN Reason: Fever >100.4 F Last Admin: 04/10/17 13:20 Dose: 325 mg Ascorbic Acid (Vitamin C 500 Mg Tab) 500 mg PO DAILY [facility] Last Admin: 04/10/17 09:26 Dose: Not Given Haloperidol Lactate (Haldol) 1 mg IVP BID PRN PRN Reason: Agitation Last Admin: 04/10/17 23:00 Dose: 1 mg Hydromorphone HCl (Dilaudid) 0.5 mg IVP Q4H PRN PRN Reason: Pain, severe (8-10) Vancomycin/Sodium Chloride (Vancomycin 1 Gm/Ns 200 Ml) 1 gm in 200 mls @ 133.333 mls/hr IVPB Q24H [facility] Stop: 04/13/17 18:31 Last Admin: 04/09/17 18:55 Dose: 133.333 mls/hr Diltiazem HCl 125 mg/ Sodium (Chloride) 125 mls @ 5 mls/hr IV .Q24H PRN; 5 MG/ HR PRN Reason: Protocol Last Titration: 04/10/17 02:07 Dose: 0 mg/hr, 0 mls/hr Fat Emulsion Intravenous (Intralipid 20%) 500 mls @ 50 mls/hr IV TuThSa@1800 [facility] Last Admin: 04/09/17 18:11 Dose: 50 mls/hr Lactated Ringer's (Lactated Ringer's) 1,000 mls @ 100 mls/hr IV .Q10H [facility] Last Admin: 04/11/17 06:20 Dose: 100 mls/hr Sodium Chloride 40 meq/Potassium Chloride 30 meq/Magnesium Sulfate 6 meq/ Calcium Gluconate 4.5 meq/Potassium Phosphate 15 mmole/Chromium/Copper/Manganese /Zinc 1 ml/ Amino Acids 1,042.1552 mls @ 42 mls/hr IV .Q24H [facility] Stop: 04/11/17 17:59 Last Admin: 04/10/17 18:41 Dose: 42 mls/hr Lorazepam (Ativan) 0.5 mg IVP Q3H PRN PRN Reason: Anxiety Last Admin: 04/10/17 18:39 Dose: 0.5 mg Metoclopramide HCl (Reglan) 10 mg IVP Q12 [facility] Last Admin: 04/10/17 23:00 Dose: 10 mg Ondansetron HCl (Zofran Inj) 4 mg IVP Q6H PRN PRN Reason: Nausea/Vomiting Pantoprazole Sodium (Protonix Inj) 40 mg IVP DAILY [facility] Last Admin: 04/10/17 09:44 Dose: 40 mg Saccharomyces Boulardii (Florastor) 250 mg PO BID [facility] Last Admin: 04/10/17 18:33 Dose: Not Given Thiamine HCl (Vitamin B1 Tab) 100 mg PO DAILY [facility] Last Admin: 04/10/17 09:26 Dose: Not Given - Labs Labs: 04/11/17 06:36 04/11/17 06:36 PT 21.6 SECONDS (9.7-12.2) H 04/08/17 12:45 INR 1.9 04/08/17 12:45 APTT 30 SECONDS (21-34) 04/08/17 12:45 - Constitutional Appears: Non-toxic, No Acute Distress - Head Exam Head Exam: ATRAUMATIC, NORMAL INSPECTION, NORMOCEPHALIC - Eye Exam Eye Exam: absent: EOMI (unable to asses, sleeping/unarousable) - Respiratory Exam Respiratory Exam: NORMAL BREATHING PATTERN - Cardiovascular Exam Cardiovascular Exam: Tachycardia, +S1, +S2 - GI/Abdominal Exam GI & Abdominal Exam: Soft, Hypoactive Bowel Sounds. absent: Distended, Firm, Guarding, Tenderness - Extremities Exam Extremities Exam: Normal Inspection - Neurological Exam Neurological Exam: absent: Alert, Awake, Oriented x3 Additional comments: sleeping, but non verbal at baseline - Psychiatric Exam Additional comments: non verbal - Skin Skin Exam: Dry, Intact, Normal Color, Warm Assessment and Plan - Assessment and Plan (Free Text) Assessment: 36F w/gastric motility disorder Plan: Cont NGT to suction Flush NGT GI recs- rescope Further recs as per ICU/primary/GI team No surgical intervention at this time Will follow Will ISIDRO attending Lorna, PGY-1
[2017-04-11] MEDS ORDERED: Lactated Ringer's 1,000 ML IV SCH (09:56)
[2017-04-11] MEDS: Saccharomyces Boulardi 250 mg Cap PO SCH ×2 (10:04→19:00)
--- NOTE | 2017-04-11 10:04 | CP.PCM.PN ---
<Kelechi Granger - Last Filed: 04/11/17 10:23> Subjective - Date & Time of Evaluation Date of Evaluation: 04/11/17 Time of Evaluation: 09:30 - Subjective Subjective: PGY 4 GI Follow-up Pt seen and examined bedside No overnight events 2 BM overnight Still NPO less agitated ROS: 10 point ROs conducted, neg other than above Objective - Vital Signs/Intake and Output Vital Signs (last 24 hours): Temp Pulse Resp BP Pulse Ox 98.2 F 101 H 13 105/75 100 04/11/17 04:00 04/11/17 08:01 04/11/17 08:01 04/11/17 08:01 04/11/17 08:01 Intake and Output: 04/11/17 04/11/17 06:59 18:59 Intake Total 1904 284 Output Total 1210 Balance 694 284 - Medications Medications: Current Medications Acetaminophen (Tylenol 325 Mg Supp) 325 mg ID Q4 PRN PRN Reason: Fever >100.4 F Last Admin: 04/10/17 13:20 Dose: 325 mg Albumin Human (Albumin Human 25% (12.5 Gm/50 Ml)) 12.5 gm IV Q1H [facility] Stop: 04/11/17 19:01 Ascorbic Acid (Vitamin C 500 Mg Tab) 500 mg PO DAILY [facility] Last Admin: 04/10/17 09:26 Dose: Not Given Haloperidol Lactate (Haldol) 1 mg IVP BID PRN PRN Reason: Agitation Last Admin: 04/10/17 23:00 Dose: 1 mg Hydromorphone HCl (Dilaudid) 0.5 mg IVP Q4H PRN PRN Reason: Pain, severe (8-10) Vancomycin/Sodium Chloride (Vancomycin 1 Gm/Ns 200 Ml) 1 gm in 200 mls @ 133.333 mls/hr IVPB Q24H [facility] Stop: 04/13/17 18:31 Last Admin: 04/09/17 18:55 Dose: 133.333 mls/hr Diltiazem HCl 125 mg/ Sodium (Chloride) 125 mls @ 5 mls/hr IV .Q24H PRN; 5 MG/ HR PRN Reason: Protocol Last Titration: 04/10/17 02:07 Dose: 0 mg/hr, 0 mls/hr Fat Emulsion Intravenous (Intralipid 20%) 500 mls @ 50 mls/hr IV TuThSa@1800 [facility] Last Admin: 04/09/17 18:11 Dose: 50 mls/hr Sodium Chloride 40 meq/Potassium Chloride 30 meq/Magnesium Sulfate 6 meq/ Calcium Gluconate 4.5 meq/Potassium Phosphate 15 mmole/Chromium/Copper/Manganese /Zinc 1 ml/ Amino Acids 1,042.1552 mls @ 42 mls/hr IV .Q24H [facility] Stop: 04/11/17 17:59 Last Admin: 04/10/17 18:41 Dose: 42 mls/hr Piperacillin Sod/Tazobactam Sod (Zosyn 3.375 Gm Iv Premix) 3.375 gm in 50 mls @ 100 mls/hr IVPB Q8H [facility] Lactated Ringer's (Lactated Ringer's) 1,000 mls @ 200 mls/hr IV .Q5H [facility] Lorazepam (Ativan) 0.5 mg IVP Q3H PRN PRN Reason: Anxiety Last Admin: 04/10/17 18:39 Dose: 0.5 mg Metoclopramide HCl (Reglan) 10 mg IVP Q12 [facility] Last Admin: 04/10/17 23:00 Dose: 10 mg Ondansetron HCl (Zofran Inj) 4 mg IVP Q6H PRN PRN Reason: Nausea/Vomiting Pantoprazole Sodium (Protonix Inj) 40 mg IVP DAILY [facility] Last Admin: 04/10/17 09:44 Dose: 40 mg Saccharomyces Boulardii (Florastor) 250 mg PO BID [facility] Last Admin: 04/10/17 18:33 Dose: Not Given Thiamine HCl (Vitamin B1 Tab) 100 mg PO DAILY [facility] Last Admin: 04/10/17 09:26 Dose: Not Given - Labs Labs: 04/11/17 06:36 04/11/17 06:36 PT 21.6 SECONDS (9.7-12.2) H 04/08/17 12:45 INR 1.9 04/08/17 12:45 APTT 30 SECONDS (21-34) 04/08/17 12:45 - Constitutional Appears: Well, No Acute Distress - Head Exam Head Exam: ATRAUMATIC, NORMOCEPHALIC - Eye Exam Eye Exam: Normal appearance - ENT Exam ENT Exam: Mucous Membranes Moist - Respiratory Exam Respiratory Exam: Clear to Ausculation Bilateral, NORMAL BREATHING PATTERN. absent: Rales, Rhonchi, Wheezes, Respiratory Distress - Cardiovascular Exam Cardiovascular Exam: REGULAR RHYTHM, +S1 - GI/Abdominal Exam GI & Abdominal Exam: Soft, Normal Bowel Sounds. absent: Guarding, Rigid, Tenderness, Organomegaly - Extremities Exam Extremities Exam: absent: Joint Swelling, Pedal Edema - Neurological Exam Neurological Exam: Altered - Skin Skin Exam: Dry, Intact, Normal Color, Warm Additional comments: cannot assess Assessment and Plan - Assessment and Plan (Free Text) Assessment: Alondra Rivera is a 37F w/ hx of Schizophrenia, Mental disability who presents to the hospital due to abd pain diarrhea. She was found to have acute pancreatitis and severe gastric distention with retained food, etiology gastroparesis vs small bowel obstruction?, which markedly improved after NG placement. Subsequently, her condition again worsened after a few days, after resuming diet. She also has presumed sepsis of unknown source. Renal function is worsening with Cr rising and BUN Complicated Acute pancreatitis, etiology unknown, r/o IGG4; DDx: medication induced?; no gallstone on CT (CBD noormal) or elevated LFTs Ilieus likely 2/2 above Loculated fluid collection, etiology unknown, abscess vs psuedocyst vs malignancy Marked stomach distention (improved) Renal failure, ATN?, worsening Plan: -NG oupt was 500ml last night -continue antibiotics as per ID -continue supportive care -hold feeds, keep NPO -IGG4 pendng, TG normal -continue PPI daily -continue LR, recommend increased fluid resuscitation -renal will likely need to follow-up and decide on starting dialysis -keep hgb > 7 D/w Dr. Singh <Samantha DANIELLE,[facility] - Last Filed: 04/11/17 12:09> Objective - Vital Signs/Intake and Output Vital Signs (last 24 hours): Temp Pulse Resp BP Pulse Ox 98.2 F 101 H 13 105/75 100 04/11/17 04:00 04/11/17 08:01 04/11/17 08:01 04/11/17 08:01 04/11/17 08:01 Intake and Output: 04/11/17 04/11/17 06:59 18:59 Intake Total 1904 284 Output Total 1210 Balance 694 284 - Medications Medications: Current Medications Acetaminophen (Tylenol 325 Mg Supp) 325 mg ID Q4 PRN PRN Reason: Fever >100.4 F Last Admin: 04/10/17 13:20 Dose: 325 mg Albumin Human (Albumin Human 25% (12.5 Gm/50 Ml)) 12.5 gm IV Q1H [facility] Stop: 04/11/17 19:01 Last Admin: 04/11/17 11:23 Dose: 12.5 gm Ascorbic Acid (Vitamin C 500 Mg Tab) 500 mg PO DAILY [facility] Last Admin: 04/11/17 10:05 Dose: 500 mg Haloperidol Lactate (Haldol) 1 mg IVP BID PRN PRN Reason: Agitation Last Admin: 04/10/17 23:00 Dose: 1 mg Hydromorphone HCl (Dilaudid) 0.5 mg IVP Q4H PRN PRN Reason: Pain, severe (8-10) Vancomycin/Sodium Chloride (Vancomycin 1 Gm/Ns 200 Ml) 1 gm in 200 mls @ 133.333 mls/hr IVPB Q24H [facility] Stop: 04/13/17 18:31 Last Admin: 04/09/17 18:55 Dose: 133.333 mls/hr Diltiazem HCl 125 mg/ Sodium (Chloride) 125 mls @ 5 mls/hr IV .Q24H PRN; 5 MG/ HR PRN Reason: Protocol Last Titration: 04/10/17 02:07 Dose: 0 mg/hr, 0 mls/hr Fat Emulsion Intravenous (Intralipid 20%) 500 mls @ 50 mls/hr IV TuThSa@1800 [facility] Last Admin: 04/09/17 18:11 Dose: 50 mls/hr Sodium Chloride 40 meq/Potassium Chloride 30 meq/Magnesium Sulfate 6 meq/ Calcium Gluconate 4.5 meq/Potassium Phosphate 15 mmole/Chromium/Copper/Manganese /Zinc 1 ml/ Amino Acids 1,042.1552 mls @ 42 mls/hr IV .Q24H [facility] Stop: 04/11/17 17:59 Last Admin: 04/10/17 18:41 Dose: 42 mls/hr Piperacillin Sod/Tazobactam Sod (Zosyn 3.375 Gm Iv Premix) 3.375 gm in 50 mls @ 100 mls/hr IVPB Q8H [facility] Last Admin: 04/11/17 10:24 Dose: 100 mls/hr Lactated Ringer's (Lactated Ringer's) 1,000 mls @ 100 mls/hr IV .Q10H [facility] Last Admin: 04/11/17 10:23 Dose: 100 mls/hr Lorazepam (Ativan) 0.5 mg IVP Q3H PRN PRN Reason: Anxiety Last Admin: 04/10/17 18:39 Dose: 0.5 mg Metoclopramide HCl (Reglan) 10 mg IVP Q12 [facility] Last Admin: 04/11/17 10:05 Dose: 10 mg Ondansetron HCl (Zofran Inj) 4 mg IVP Q6H PRN PRN Reason: Nausea/Vomiting Pantoprazole Sodium (Protonix Inj) 40 mg IVP DAILY [facility] Last Admin: 04/11/17 10:05 Dose: 40 mg Saccharomyces Boulardii (Florastor) 250 mg PO BID [facility] Last Admin: 04/11/17 10:04 Dose: 250 mg Thiamine HCl (Vitamin B1 Tab) 100 mg PO DAILY [facility] Last Admin: 04/11/17 10:05 Dose: 100 mg - Labs Labs: 04/11/17 06:36 04/11/17 06:36 PT 21.6 SECONDS (9.7-12.2) H 04/08/17 12:45 INR 1.9 04/08/17 12:45 APTT 30 SECONDS (21-34) 04/08/17 12:45 Attending/Attestation - Attestation I have personally seen and examined this patient.: Yes I have fully participated in the care of the patient.: Yes I have reviewed all pertinent clinical information, including history, physical exam and plan: Yes Notes (Text): 04/11/17 12:04 Patient seen with GI fellow in MICU. Discussed with environmental programs manager. GI has been requested to see patient for a second opinion by surgical service and MICU. Acute complicated pancreatitis Gastroparesis resolving Ileus resolving Azotemia worsening Mental retardation In a nutshell this is a 37 year old F with ?Schizophrenia, Mental retardation on seroquel and SSRI at home which were abruptly stopped upon coming to hospital 9 days ago for abdominal distension and constipation and leukocytosis and lactic acidosis and Tmax of 101. Hospital course in past 8 days- she was treated for UTI, gastroparesis and had an EGD that showed food bezoar in antrum and fundus. EGD was done till fourth portion of duodenum and no pyloric obstruction found. She was also found to have elevated lipase and was treated with IVF. NGT was placed for ileus/ gastric distension and 2 lts fluid was aspirated. She was started on CLD that she tolerated. While on floor her leukocytosis got worse and new onset azotemia started. Repeat CTAP without IV/ po contrast shows loculated fluid collection ? pseudocyst. IR guided fluid aspiration not amenable as per MICU. Concern for worsening acute complicated pancreatitis with ileus and gastric distenson. Will continue two IV lines and give 250 cc/hr fluid RL. As per MICU they she recd 100 cc/hr. In past 24 hours leukocytosis has significantly improved from 33 to 12. Her azotemia has worsened with 200 cc urine output and increasing hyperkalemia. Will benefit from nephrology recall. May be proceeding towards HD. Check IgG4 levels and TG. When renal function improves will get repeat CT with contrast. Antibiotics for broad coverage including E coli/ klebsiella coverage. Continue daily PPI. Will consider EUS guided fluid aspiration if clinically not improving. Blood and urine cultures daily. NGT output was 550 ml. Continue reglan. Will continue high volume RL at 250cc/hr and repeat bmp Q 8 hours. Repeat non contrast imaging will be futile to show pancreas. Will repeat with IV contrast once kidney function improves. Strict I/O. All above discussed with environmental programs manager in detail and last Ct scan abdomen reviewed. STAT nephrology consult to be considered. DVT prophylaxis
[2017-04-11] MEDS: Albumin Human 25% (12.5 gm/50 ml) IV SCH ×10 (10:22→19:18)
--- NOTE | 2017-04-11 13:00 | CP.PCM.PN ---
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- will try to contact family for consent Objective - Vital Signs/Intake and Output Vital Signs (last 24 hours): Temp Pulse Resp BP Pulse Ox 98.2 F 101 H 13 105/75 100 04/11/17 04:00 04/11/17 08:01 04/11/17 08:01 04/11/17 08:01 04/11/17 08:01 Intake and Output: 04/11/17 04/11/17 06:59 18:59 Intake Total 1904 284 Output Total 1210 Balance 694 284 - Medications Medications: Current Medications Acetaminophen (Tylenol 325 Mg Supp) 325 mg [place] Q4 PRN PRN Reason: Fever >100.4 F Last Admin: 04/10/17 13:20 Dose: 325 mg Albumin Human (Albumin Human 25% (12.5 Gm/50 Ml)) 12.5 gm IV Q1H [facility] [place] Stop: 04/11/17 19:01 Last Admin: 04/11/17 12:17 Dose: 12.5 gm Ascorbic Acid (Vitamin C 500 Mg Tab) 500 mg PO DAILY [facility] [place] Last Admin: 04/11/17 10:05 Dose: 500 mg Haloperidol Lactate (Haldol) 1 mg IVP BID PRN PRN Reason: Agitation Last Admin: 04/10/17 23:00 Dose: 1 mg Hydromorphone HCl (Dilaudid) 0.5 mg IVP Q4H PRN PRN Reason: Pain, severe (8-10) Last Admin: 04/11/17 12:24 Dose: 0.5 mg Vancomycin/Sodium Chloride (Vancomycin 1 Gm/Ns 200 Ml) 1 gm in 200 mls @ 133.333 mls/hr IVPB Q24H [facility] [place] Stop: 04/13/17 18:31 Last Admin: 04/09/17 18:55 Dose: 133.333 mls/hr Diltiazem HCl 125 mg/ Sodium (Chloride) 125 mls @ 5 mls/hr IV .Q24H PRN; 5 MG/ HR PRN Reason: Protocol Last Titration: 04/10/17 02:07 Dose: 0 mg/hr, 0 mls/hr Fat Emulsion Intravenous (Intralipid 20%) 500 mls @ 50 mls/hr IV TuThSa@1800 [facility] [place] Last Admin: 04/09/17 18:11 Dose: 50 mls/hr Sodium Chloride 40 meq/Potassium Chloride 30 meq/Magnesium Sulfate 6 meq/ Calcium Gluconate 4.5 meq/Potassium Phosphate 15 mmole/Chromium/Copper/Manganese /Zinc 1 ml/ Amino Acids 1,042.1552 mls @ 42 mls/hr IV .Q24H [facility] [place] Stop: 04/11/17 17:59 Last Admin: 04/10/17 18:41 Dose: 42 mls/hr Piperacillin Sod/Tazobactam Sod (Zosyn 3.375 Gm Iv Premix) 3.375 gm in 50 mls @ 100 mls/hr IVPB Q8H [facility] [place] Last Admin: 04/11/17 10:24 Dose: 100 mls/hr Lactated Ringer's (Lactated Ringer's) 1,000 mls @ 100 mls/hr IV .Q10H [facility] Last Admin: 04/11/17 10:23 Dose: 100 mls/hr Lorazepam (Ativan) 0.5 mg IVP Q3H PRN PRN Reason: Anxiety Last Admin: 04/10/17 18:39 Dose: 0.5 mg Metoclopramide HCl (Reglan) 10 mg IVP Q12 [facility] [place] Last Admin: 04/11/17 10:05 Dose: 10 mg Ondansetron HCl (Zofran Inj) 4 mg IVP Q6H PRN PRN Reason: Nausea/Vomiting Pantoprazole Sodium (Protonix Inj) 40 mg IVP DAILY [facility] [place] Last Admin: 04/11/17 10:05 Dose: 40 mg Saccharomyces Boulardii (Florastor) 250 mg PO BID [facility] [place] Last Admin: 04/11/17 10:04 Dose: 250 mg Thiamine HCl (Vitamin B1 Tab) 100 mg PO DAILY [facility] Last Admin: 04/11/17 10:05 Dose: 100 mg - Labs Labs: 04/11/17 06:36 04/11/17 06:36 PT 21.6 SECONDS (9.7-12.2) H 04/08/17 12:45 INR 1.9 04/08/17 12:45 APTT 30 SECONDS (21-34) 04/08/17 12:45 - Constitutional Appears: Confused, Chronically Ill - Head Exam Head Exam: ATRAUMATIC, NORMAL INSPECTION - Eye Exam Eye Exam: EOMI, Normal appearance - Neck Exam Neck Exam: Normal Inspection. absent: Tenderness - Cardiovascular Exam Cardiovascular Exam: REGULAR RHYTHM, +S1 - GI/Abdominal Exam GI & Abdominal Exam: Soft. absent: Tenderness - Extremities Exam Extremities Exam: Normal Inspection. absent: Tenderness - Neurological Exam Neurological Exam: Altered, CN II-XII Intact - Skin Skin Exam: Dry, Warm Assessment and Plan (1) JIMBO (acute kidney injury) Status: Acute (2) Acute pancreatitis Status: Acute (3) SBO (small bowel obstruction) Status: Acute (4) Schizophrenia Status: Acute - Assessment and Plan (Free Text) Plan: Will need [employer]ACE [employer] FACULTY MEMBER soon if no improvement Will try to contact family Try to make arrangements for dialysis in next 24 hrs
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
[2017-04-11] MEDS ORDERED: [UNRECOGNIZED DRUG - REMARK] IV SCH (18:00)
[2017-04-11] MEDS ORDERED: Fat Emulsion 20% IV 500 ML IV SCH (18:00)
--- NOTE | 2017-04-11 18:08 | CARD ---
APPROVED REPORT EXAM: Two-dimensional and M-mode echocardiogram with Doppler and color Doppler. Other Information Quality : GoodRhythm : INDICATION Congestive Heart Failure 2D DIMENSIONS IVSd0.7 (0.7-1.1cm)LVDd4.2 (3.9-5.9cm) PWd0.8 (0.7-1.1cm)LVDs2.6 (2.5-4.0cm) FS (%) 37.0 %LVEF (%)67.4 (>50%) M-Mode DIMENSIONS Left Atrium (MM)3.04 (2.5-4.0cm)Aortic Root2.54 (2.2-3.7cm) Aortic Cusp Exc.2.02 (1.5-2.0cm) Mitral Valve MV E Nfuuezhn286.5cm/sE/A ratio0.0 TDI E/Lateral E'0.0E/Medial E'0.0 LEFT VENTRICLE The left ventricle is normal size. There is normal left ventricular wall thickness. The left ventricular function is normal. The left ventricular ejection fraction is within the normal range. No regional wall motion abnormalities noted. The left ventricular diastolic function is normal. No left ventricle thrombus noted on this study. There is no ventricular septal defect visualized. There is no left ventricular aneurysm. There is no mass noted in the left ventricle. RIGHT VENTRICLE The right ventricle is normal size. There is normal right ventricular wall thickness. The right ventricular systolic function is normal. ATRIA The left atrium size is normal. The right atrium size is normal. The interatrial septum is intact with no evidence for an atrial septal defect. AORTIC VALVE The aortic valve is normal in structure and function. No aortic regurgitation is present. There is no aortic valvular stenosis. There is no aortic valvular vegetation. MITRAL VALVE The mitral valve is normal in structure and function. There is no evidence of mitral valve prolapse. There is no mitral valve stenosis. There is no mitral valve regurgitation noted. TRICUSPID VALVE The tricuspid valve is normal in structure and function. There is mild tricuspid regurgitation. Right ventricular systolic pressure is estimated at 30-40 mmHg. There is no tricuspid valve prolapse or vegetation. There is no tricuspid valve stenosis. PULMONIC VALVE The pulmonary valve is normal in structure and function. There is no pulmonic valvular regurgitation. There is no pulmonic valvular stenosis. GREAT VESSELS The aortic root is normal in size. The ascending aorta is normal in size. The pulmonary artery is normal. The IVC is normal in size and collapses >50% with inspiration. PERICARDIAL EFFUSION The pericardium appears normal. There is no pleural effusion. <Conclusion> The left ventricular function is normal. The left ventricular ejection fraction is within the normal range. No regional wall motion abnormalities noted.
--- NOTE | 2017-04-11 19:13 | CP.CCUPN ---
CCU Subjective - Physician Review Events Since Last Encounter (Free Text): 04/11/17 19:12 patient is non-verbal. Constantly moans. CCU Objective - Vital Signs / Intake & Output Vital Signs (Last 4 hours): Vital Signs Temp Pulse Pulse Resp BP BP Pulse Ox 04/11/17 18:43 128/91 H 04/11/17 18:28 119/86 04/11/17 18:05 115/84 04/11/17 17:50 98.6 F 100 H 16 122/89 99 04/11/17 17:45 98.6 F 100 H 16 107/76 04/11/17 15:47 98.6 F Intake and Output (Last 8hrs): Intake & Output 04/11/17 04/11/17 04/11/17 06:59 14:59 22:59 Intake Total 1236 1336 192 Output Total 580 Balance 656 1336 192 Weight 140 lb 5 oz Intake: Intake, IV Amount 1236 1336 192 Left Antecubital 750 750 100 Left Antecubital - Distal 250 50 Port Left Antecubital Y-site 234 336 42 Left Hand 252 Output: Gastric Amount 500 Right Nares 500 Urine 80 Urethral (Tovar) 80 Other: # Bowel Movements 1 1 - Physical Exam Physical Exam Limitations: Positive for: Altered Mental Status Head: Positive for: Atraumatic, Normocephalic. Negative for: Tenderness Pupils: Positive for: PERRL Extroacular Muscles: Positive for: EOMI Mouth: Positive for: Moist Mucous Membranes. Negative for: Dry, Drooling Nose (External): Positive for: Other (NGT in place) Nose (Internal): Positive for: Normal Inspection, Moist Neck: Positive for: Normal Range of Motion. Negative for: JVD, Lymphadenopathy Respiratory/Chest: Positive for: Clear to Auscultation. Negative for: Respiratory Distress, Accessory Muscle Use Cardiovascular: Positive for: Regular Rate and Rhythm, Normal S1, S2 Abdomen: Positive for: Normal Bowel Sounds. Negative for: Distention, Guarding Upper Extremity: Positive for: Normal Inspection, Normal ROM, Capillary Refill < 2s. Negative for: Edema Lower Extremity: Positive for: Normal Inspection. Negative for: Edema Neurological: Positive for: CN II-XII Intact Skin: Positive for: Warm, Pale Psychiatric: Positive for: Alert - Medications Active Medications: Active Medications Generic Name Dose Route Start Last Admin Trade Name Freq PRN Reason Stop Dose Admin Acetaminophen 325 mg 03/29/17 07:57 04/10/17 13:20 Tylenol 325 Mg Supp [place] 325 mg Q4 PRN Administration Fever >100.4 F Ascorbic Acid 500 mg 04/08/17 12:30 04/11/17 10:05 Vitamin C 500 Mg Tab PO 500 mg DAILY AGUSTIN Administration Haloperidol Lactate 1 mg 03/29/17 18:47 04/10/17 23:00 Haldol IVP 1 mg BID PRN Administration Agitation Hydromorphone HCl 0.5 mg 04/10/17 23:09 04/11/17 12:24 Dilaudid IVP 0.5 mg Q4H PRN Administration Pain, severe (8-10) Vancomycin/Sodium Chloride 1 gm in 200 mls @ 133.333 mls/hr 04/08/17 18:30 18:55 Vancomycin 1 Gm/Ns 200 Ml IVPB 04/13/17 18:31 133.333 mls/hr Q24H AGUSTIN Administration Diltiazem HCl 125 mg/ Sodium 125 mls @ 5 mls/hr 04/08/17 20:05 04/10/17 02:07 Chloride IV 0 mg/hr .Q24H PRN 0 mls/hr Protocol Titration 5 MG/HR Fat Emulsion Intravenous 500 mls @ 50 mls/hr 04/09/17 18:00 04/09/17 18:11 Intralipid 20% IV 50 mls/hr TuThSa@1800 AGUSTIN Administration Piperacillin Sod/Tazobactam Sod 3.375 gm in 50 mls @ 100 mls/hr 04/11/17 10: 00 04/11/17 10:24 Zosyn 3.375 Gm Iv Premix IVPB 100 mls/hr Q8H AGUSTIN Administration Lactated Ringer's 1,000 mls @ 100 mls/hr 04/11/17 10:02 04/11/17 10:23 Lactated Ringer's IV 100 mls/hr .Q10H AGUSTIN Administration Sodium Chloride 40 meq/ 1,032.1552 mls @ 42 mls/hr 04/11/17 18:00 04/11/17 17 :25 Magnesium Sulfate 6 meq/ IV 04/12/17 17:59 42 mls/hr Calcium Gluconate 4.5 meq/ .Q24H AGUSTIN Administration Chromium/Copper/Manganese/Zinc 1 ml/ Multivitamins/Vitamin C 10 ml/ Amino Acids Lorazepam 0.5 mg 04/01/17 16:08 04/10/17 18:39 Ativan IVP 0.5 mg Q3H PRN Administration Anxiety Metoclopramide HCl 10 mg 04/03/17 22:00 04/11/17 10:05 Reglan IVP 10 mg Q12 AGUSTIN Administration Ondansetron HCl 4 mg 03/27/17 23:45 Zofran Inj IVP Q6H PRN Nausea/Vomiting Pantoprazole Sodium 40 mg 04/02/17 10:00 04/11/17 10:05 Protonix Inj IVP 40 mg DAILY AGUSTIN Administration Saccharomyces Boulardii 250 mg 04/08/17 18:00 04/11/17 19:00 Florastor PO Not Given BID AGUSTIN Thiamine HCl 100 mg 04/08/17 12:30 04/11/17 10:05 Vitamin B1 Tab PO 100 mg DAILY AGUSTIN Administration - Patient Studies Lab Studies: Microbiology Studies 04/08/17 11:47 Blood Culture - Preliminary Blood-Venous NO GROWTH AFTER 3 DAYS 04/08/17 11:47 Blood Culture - Preliminary Blood-Venous NO GROWTH AFTER 3 DAYS Lab Studies 04/11/17 04/11/17 04/11/17 Range/Units 17:53 11:34 06:36 WBC (4.8-10.8) K/uL RBC (3.80-5.20) Mil/uL Hgb (11.0-16.0) g/dL Hct (34.0-47.0) % MCV (81.0-99.0) fL MCH (27.0-31.0) pg MCHC (33.0-37.0) g/dL RDW (11.5-14.5) % Plt Count (130-400) K/uL MPV (7.2-11.7) fL Neut % (Auto) (50.0-75.0) % Lymph % (Auto) (20.0-40.0) % Pacific % (Auto) (0.0-10.0) % Eos % (Auto) (0.0-4.0) % Baso % (Auto) (0.0-2.0) % Neut # (1.8-7.0) K/uL Lymph # (1.0-4.3) K/uL Pacific # (0.0-0.8) K/uL Eos # (0.0-0.7) K/uL Baso # (0.0-0.2) K/uL Sodium 134 (132-148) mmol/L Potassium 5.3 H (3.6-5.2) mmol/L Chloride 107 (98-107) mmol/L Carbon Dioxide 15 L (22-30) mmol/L Anion Gap 17 (10-20) BUN 50 H (7-17) mg/dL Creatinine 6.4 H (0.7-1.2) mg/dL Est GFR ( Amer) 9 Est GFR (Non-Af Amer) 7 POC Glucose (mg/dL) 78 80 (65-110) mg/dL Random Glucose 77 (65-105) mg/dL Calcium 8.3 L (8.6-10.4) mg/dl Phosphorus 6.3 H (2.5-4.5) mg/dL Magnesium 2.1 (1.6-2.3) mg/dL Total Bilirubin 0.5 (0.2-1.3) mg/dL AST 17 (14-36) U/L ALT 23 (9-52) U/L Alkaline Phosphatase 97 (38-126) U/L Total Protein 5.7 L (6.3-8.3) g/dL Albumin 2.6 L (3.5-5.0) g/dL Globulin 3.1 (2.2-3.9) gm/dL Albumin/Globulin Ratio 0.8 L (1.0-2.1) Mycoplasma pneumon IgG (<=0.90) 04/11/17 04/11/17 04/11/17 Range/Units 06:36 05:00 00:10 WBC 13.5 H (4.8-10.8) K/uL RBC 2.73 L (3.80-5.20) Mil/uL Hgb 7.8 L (11.0-16.0) g/dL Hct 22.6 L (34.0-47.0) % MCV 82.9 (81.0-99.0) fL MCH 28.4 (27.0-31.0) pg MCHC 34.3 (33.0-37.0) g/dL RDW 14.0 (11.5-14.5) % Plt Count 594 H (130-400) K/uL MPV 7.9 (7.2-11.7) fL Neut % (Auto) 74.1 (50.0-75.0) % Lymph % (Auto) 13.6 L (20.0-40.0) % Pacific % (Auto) 10.2 H (0.0-10.0) % Eos % (Auto) 1.8 (0.0-4.0) % Baso % (Auto) 0.3 (0.0-2.0) % Neut # 10.0 H (1.8-7.0) K/uL Lymph # 1.8 (1.0-4.3) K/uL Pacific # 1.4 H (0.0-0.8) K/uL Eos # 0.2 (0.0-0.7) K/uL Baso # 0.0 (0.0-0.2) K/uL Sodium (132-148) mmol/L Potassium (3.6-5.2) mmol/L Chloride (98-107) mmol/L Carbon Dioxide (22-30) mmol/L Anion Gap (10-20) BUN (7-17) mg/dL Creatinine (0.7-1.2) mg/dL Est GFR ( Amer) Est GFR (Non-Af Amer) POC Glucose (mg/dL) 75 78 (65-110) mg/dL Random Glucose (65-105) mg/dL Calcium (8.6-10.4) mg/dl Phosphorus (2.5-4.5) mg/dL Magnesium (1.6-2.3) mg/dL Total Bilirubin (0.2-1.3) mg/dL AST (14-36) U/L ALT (9-52) U/L Alkaline Phosphatase (38-126) U/L Total Protein (6.3-8.3) g/dL Albumin (3.5-5.0) g/dL Globulin (2.2-3.9) gm/dL Albumin/Globulin Ratio (1.0-2.1) Mycoplasma pneumon IgG (<=0.90) 04/08/17 Range/Units 12:45 WBC (4.8-10.8) K/uL RBC (3.80-5.20) Mil/uL Hgb (11.0-16.0) g/dL Hct (34.0-47.0) % MCV (81.0-99.0) fL MCH (27.0-31.0) pg MCHC (33.0-37.0) g/dL RDW (11.5-14.5) % Plt Count (130-400) K/uL MPV (7.2-11.7) fL Neut % (Auto) (50.0-75.0) % Lymph % (Auto) (20.0-40.0) % Pacific % (Auto) (0.0-10.0) % Eos % (Auto) (0.0-4.0) % Baso % (Auto) (0.0-2.0) % Neut # (1.8-7.0) K/uL Lymph # (1.0-4.3) K/uL Pacific # (0.0-0.8) K/uL Eos # (0.0-0.7) K/uL Baso # (0.0-0.2) K/uL Sodium (132-148) mmol/L Potassium (3.6-5.2) mmol/L Chloride (98-107) mmol/L Carbon Dioxide (22-30) mmol/L Anion Gap (10-20) BUN (7-17) mg/dL Creatinine (0.7-1.2) mg/dL Est GFR ( Amer) Est GFR (Non-Af Amer) POC Glucose (mg/dL) (65-110) mg/dL Random Glucose (65-105) mg/dL Calcium (8.6-10.4) mg/dl Phosphorus (2.5-4.5) mg/dL Magnesium (1.6-2.3) mg/dL Total Bilirubin (0.2-1.3) mg/dL AST (14-36) U/L ALT (9-52) U/L Alkaline Phosphatase (38-126) U/L Total Protein (6.3-8.3) g/dL Albumin (3.5-5.0) g/dL Globulin (2.2-3.9) gm/dL Albumin/Globulin Ratio (1.0-2.1) Mycoplasma pneumon IgG 1.09 H (<=0.90) Laboratory Results - last 24 hr 04/08/17 04/11/17 04/11/17 12:45 00:10 05:00 WBC RBC Hgb Hct MCV MCH MCHC RDW Plt Count MPV Neut % (Auto) Lymph % (Auto) Pacific % (Auto) Eos % (Auto) Baso % (Auto) Neut # Lymph # Pacific # Eos # Baso # Sodium Potassium Chloride Carbon Dioxide Anion Gap BUN Creatinine Est GFR ( Amer) Est GFR (Non-Af Amer) POC Glucose (mg/dL) 78 75 Random Glucose Calcium Phosphorus Magnesium Total Bilirubin AST ALT Alkaline Phosphatase Total Protein Albumin Globulin Albumin/Globulin Ratio Mycoplasma pneumon IgG 1.09 H 04/11/17 04/11/17 04/11/17 06:36 06:36 11:34 WBC 13.5 H RBC 2.73 L Hgb 7.8 L Hct 22.6 L MCV 82.9 MCH 28.4 MCHC 34.3 RDW 14.0 Plt Count 594 H MPV 7.9 Neut % (Auto) 74.1 Lymph % (Auto) 13.6 L Pacific % (Auto) 10.2 H Eos % (Auto) 1.8 Baso % (Auto) 0.3 Neut # 10.0 H Lymph # 1.8 Pacific # 1.4 H Eos # 0.2 Baso # 0.0 Sodium 134 Potassium 5.3 H Chloride 107 Carbon Dioxide 15 L Anion Gap 17 BUN 50 H Creatinine 6.4 H Est GFR ( Amer) 9 Est GFR (Non-Af Amer) 7 POC Glucose (mg/dL) 80 Random Glucose 77 Calcium 8.3 L Phosphorus 6.3 H Magnesium 2.1 Total Bilirubin 0.5 AST 17 ALT 23 Alkaline Phosphatase 97 Total Protein 5.7 L Albumin 2.6 L Globulin 3.1 Albumin/Globulin Ratio 0.8 L Mycoplasma pneumon IgG 04/11/17 17:53 WBC RBC Hgb Hct MCV MCH MCHC RDW Plt Count MPV Neut % (Auto) Lymph % (Auto) Pacific % (Auto) Eos % (Auto) Baso % (Auto) Neut # Lymph # Pacific # Eos # Baso # Sodium Potassium Chloride Carbon Dioxide Anion Gap BUN Creatinine Est GFR ( Amer) Est GFR (Non-Af Amer) POC Glucose (mg/dL) 78 Random Glucose Calcium Phosphorus Magnesium Total Bilirubin AST ALT Alkaline Phosphatase Total Protein Albumin Globulin Albumin/Globulin Ratio Mycoplasma pneumon IgG Fingerstick Blood Sugar Results: 80 Review of Systems - Review of Systems Systems not reviewed;Unavailable: Altered Mental Status Critical Care Progress Note - Nutrition Nutrition: Nutrition Category Date Time Status NPO Diet [DIET] Diets 04/08/17 Dinner Active Assessment/Plan (1) Acute pancreatitis Assessment and plan: second opinion, GI consultation. Also feel this acute pancreatitis with associated ileus. Upon reviewing CT abdomen, possible pancreatic pseudocyst. If patient does not improve, will need to perform FNA for culture and sensitivities. NGT to suction, marked improvement in abdominal distention. Continue Zosyn, for now, despite unknown benefit. Patient is also in oliguric renal failure, not improving, starting dialysis, layla Naylor. Critical Care time 35 minutes Current Visit: Yes Status: Acute
--- NOTE | 2017-04-11 19:54 | PCM.PROC ---
Procedures Attestation:: I certify that I have explained the specified Operation(s) or Procedure(s), risks, benefits and reasonable alternatives to the Patient and/or other person responsible. The opportunity was given to ask questions and all questions answered - Central Line Placement Right Femoral Hemodialysis Access Aseptic technique was employed throughout the procedure: Hand Hygiene done prior to procedure, Full sterile barriers (mask, hair cover, sterile gown, sterile gloves), Full body sterile drape, Chloraprep Antiseptic: 2 minute prep for Femoral CVP Time Out Performed: No Pt. Placed on Pulse Ox Monitor: Yes Central Line Prep: Chlorhexidine-Alcohol Combination Local Anesthesia Used: Lidocaine 1% Amount of Anesthesia Used (mls): 20 Ultrasound Used for Placement: Yes Central Line Lumen Inserted: triple Central Line Length: 20 cm Post Procedure: Sutured in Place, Good Blood Return, All Ports Aspirated, Flushed, Capped, Sterile Dressing Applied Secured by: Suture Post procedure dressing: Clear vapor permeable, Chlorhexidine disc (Biopatch) Post Procedure X-Ray: No Patient Tolerated Procedure: Well, No Complications
--- NOTE | 2017-04-11 20:17 | CP.PCM.PN ---
Subjective - Date & Time of Evaluation Date of Evaluation: 04/11/17 Time of Evaluation: 16:35 - Subjective Subjective: Patient seen and evaluated HR improved to 90s Off cardizem drip Physical Exam - Constitutional Appears: In Acute Distress, Agitated, Chronically Ill - Head Exam Head Exam: ATRAUMATIC, NORMAL INSPECTION - Eye Exam Eye Exam: EOMI, Normal appearance - Neck Exam Neck exam: Positive for: Normal Inspection. Negative for: Tenderness - Respiratory Exam Respiratory Exam: Decreased Breath Sounds, NORMAL BREATHING PATTERN - Cardiovascular Exam Cardiovascular Exam: Tachycardia, +S1 - GI/Abdominal Exam GI & Abdominal Exam: Soft, Tenderness - Extremities Exam Extremities exam: Positive for: normal inspection. Negative for: tenderness - Neurological Exam Neurological exam: Altered, CN II-XII Intact - Skin Skin Exam: Dry, Warm Objective - Vital Signs/Intake and Output Vital Signs (last 24 hours): Temp Pulse Resp BP Pulse Ox 98.6 F 79 22 122/80 100 04/11/17 17:50 04/11/17 20:00 04/11/17 20:00 04/11/17 19:58 04/11/17 20:00 Intake and Output: 04/11/17 04/12/17 18:59 06:59 Intake Total 2104 192 Output Total 600 Balance 2104 -408 - Medications Medications: Current Medications Acetaminophen (Tylenol 325 Mg Supp) 325 mg IN Q4 PRN PRN Reason: Fever >100.4 F Last Admin: 04/10/17 13:20 Dose: 325 mg Ascorbic Acid (Vitamin C 500 Mg Tab) 500 mg PO DAILY [facility] Last Admin: 04/11/17 10:05 Dose: 500 mg Haloperidol Lactate (Haldol) 1 mg IVP BID PRN PRN Reason: Agitation Last Admin: 04/10/17 23:00 Dose: 1 mg Hydromorphone HCl (Dilaudid) 0.5 mg IVP Q4H PRN PRN Reason: Pain, severe (8-10) Last Admin: 04/11/17 12:24 Dose: 0.5 mg Vancomycin/Sodium Chloride (Vancomycin 1 Gm/Ns 200 Ml) 1 gm in 200 mls @ 133.333 mls/hr IVPB Q24H [facility] Stop: 04/13/17 18:31 Last Admin: 04/09/17 18:55 Dose: 133.333 mls/hr Diltiazem HCl 125 mg/ Sodium (Chloride) 125 mls @ 5 mls/hr IV .Q24H PRN; 5 MG/ HR PRN Reason: Protocol Last Titration: 04/10/17 02:07 Dose: 0 mg/hr, 0 mls/hr Fat Emulsion Intravenous (Intralipid 20%) 500 mls @ 50 mls/hr IV TuThSa@1800 [facility] Last Admin: 04/09/17 18:11 Dose: 50 mls/hr Piperacillin Sod/Tazobactam Sod (Zosyn 3.375 Gm Iv Premix) 3.375 gm in 50 mls @ 100 mls/hr IVPB Q8H [facility] Last Admin: 04/11/17 19:19 Dose: Not Given Lactated Ringer's (Lactated Ringer's) 1,000 mls @ 100 mls/hr IV .Q10H [facility] Last Admin: 04/11/17 19:19 Dose: 100 mls/hr Sodium Chloride 40 meq/Magnesium Sulfate 6 meq/Calcium Gluconate 4.5 meq/ Chromium/Copper/Manganese/Zinc 1 ml/ Multivitamins/Vitamin C 10 ml/ Amino Acids 1,032.1552 mls @ 42 mls/hr IV .Q24H [facility] Stop: 04/12/17 17:59 Last Admin: 04/11/17 17:25 Dose: 42 mls/hr Lorazepam (Ativan) 0.5 mg IVP Q3H PRN PRN Reason: Anxiety Last Admin: 04/10/17 18:39 Dose: 0.5 mg Metoclopramide HCl (Reglan) 10 mg IVP Q12 [facility] Last Admin: 04/11/17 10:05 Dose: 10 mg Ondansetron HCl (Zofran Inj) 4 mg IVP Q6H PRN PRN Reason: Nausea/Vomiting Pantoprazole Sodium (Protonix Inj) 40 mg IVP DAILY [facility] Last Admin: 04/11/17 10:05 Dose: 40 mg Saccharomyces Boulardii (Florastor) 250 mg PO BID [facility] Last Admin: 04/11/17 19:00 Dose: Not Given Thiamine HCl (Vitamin B1 Tab) 100 mg PO DAILY [facility] Last Admin: 04/11/17 10:05 Dose: 100 mg - Labs Labs: 04/11/17 06:36 04/11/17 06:36 PT 21.6 SECONDS (9.7-12.2) H 04/08/17 12:45 INR 1.9 04/08/17 12:45 APTT 30 SECONDS (21-34) 04/08/17 12:45 Assessment and Plan - Assessment and Plan (Free Text) Assessment: Assessment & Plan - Assessment and Plan (Free Text) Assessment: Tachycardia JIMBO Acute pancreatitis Volume depletion Sepsis syndrome Intra-abdominal fluid collection- possible abscess Plan: ECHO: Normal EF and no valvular issues Tachycardia most likely due to medical issues Cardizem drip/PO as needed
[2017-04-12] MEDS: Piperacill/Tazo 3.375gm in Dex 3.375 GM/50 ML BAG IVPB SCH ×2 (02:19→10:18)
[2017-04-12] MEDS: Lactated Ringer's 1,000 ML IV SCH ×4 (05:35→21:00)
[2017-04-12 06:32] LABS: BASO % 0.3 % (0.0-2.0); EOS # 0.4 K/uL (0.0-0.7); EOS % 2.9 % (0.0-4.0); LYMPH # 1.5 K/uL (1.0-4.3); LYMPH % 11.2 % (20.0-40.0); MEAN CORPUSCULAR HEMOGLOBIN 28.1 pg (27.0-31.0); MEAN CORPUSCULAR HGB CONC 34.3 g/dL (33.0-37.0); MEAN PLATELET VOLUME 7.9 fL (7.2-11.7); MONO # 1.4 K/uL (0.0-0.8); MONO % 10.3 % (0.0-10.0); NEUT # 10.2 K/uL (1.8-7.0); NEUT % 75.3 % (50.0-75.0); RBC 2.49 Mil/uL (3.80-5.20); RED CELL DISTRIBUTION WIDTH 13.9 % (11.5-14.5); WHITE BLOOD COUNT 13.6 K/uL (4.8-10.8)
[2017-04-12 06:49] LABS: ALB/GLOB RATIO 1.2 (1.0-2.1); ALBUMIN 3.3 g/dL (3.5-5.0); CALCIUM 8.2 mg/dl (8.6-10.4)
--- NOTE | 2017-04-12 07:24 | CP.PCM.PN ---
Subjective - Date & Time of Evaluation Date of Evaluation: 04/12/17 Time of Evaluation: 07:00 - Subjective Subjective: Surgical Progress Note: Patient was seen and examined at bedside in the AM. Sister at bedside with patient. No acute events overnight. Tachycardia worsens with agitation. Patient is non-verbal. Objective - Vital Signs/Intake and Output Vital Signs (last 24 hours): Temp Pulse Resp BP Pulse Ox 98.3 F 132 H 12 105/66 76 L 04/12/17 04:00 04/12/17 07:00 04/12/17 07:00 04/12/17 06:58 04/12/17 07:00 Intake and Output: 04/12/17 04/12/17 06:59 18:59 Intake Total 1804 142 Output Total 980 0 Balance 824 142 - Medications Medications: Current Medications Acetaminophen (Tylenol 325 Mg Supp) 325 mg OR Q4 PRN PRN Reason: Fever >100.4 F Last Admin: 04/10/17 13:20 Dose: 325 mg Ascorbic Acid (Vitamin C 500 Mg Tab) 500 mg PO DAILY [facility] Last Admin: 04/11/17 10:05 Dose: 500 mg Haloperidol Lactate (Haldol) 1 mg IVP BID PRN PRN Reason: Agitation Last Admin: 04/10/17 23:00 Dose: 1 mg Hydromorphone HCl (Dilaudid) 0.5 mg IVP Q4H PRN PRN Reason: Pain, severe (8-10) Last Admin: 04/12/17 05:49 Dose: 0.5 mg Vancomycin/Sodium Chloride (Vancomycin 1 Gm/Ns 200 Ml) 1 gm in 200 mls @ 133.333 mls/hr IVPB Q24H [facility] Stop: 04/13/17 18:31 Last Admin: 04/09/17 18:55 Dose: 133.333 mls/hr Diltiazem HCl 125 mg/ Sodium (Chloride) 125 mls @ 5 mls/hr IV .Q24H PRN; 5 MG/ HR PRN Reason: Protocol Last Titration: 04/10/17 02:07 Dose: 0 mg/hr, 0 mls/hr Fat Emulsion Intravenous (Intralipid 20%) 500 mls @ 50 mls/hr IV TuThSa@1800 [facility] Last Admin: 04/09/17 18:11 Dose: 50 mls/hr Piperacillin Sod/Tazobactam Sod (Zosyn 3.375 Gm Iv Premix) 3.375 gm in 50 mls @ 100 mls/hr IVPB Q8H [facility] Last Admin: 04/12/17 02:19 Dose: 100 mls/hr Lactated Ringer's (Lactated Ringer's) 1,000 mls @ 100 mls/hr IV .Q10H [facility] Last Admin: 04/12/17 05:35 Dose: 100 mls/hr Sodium Chloride 40 meq/Magnesium Sulfate 6 meq/Calcium Gluconate 4.5 meq/ Chromium/Copper/Manganese/Zinc 1 ml/ Multivitamins/Vitamin C 10 ml/ Amino Acids 1,032.1552 mls @ 42 mls/hr IV .Q24H [facility] Stop: 04/12/17 17:59 Last Admin: 04/11/17 17:25 Dose: 42 mls/hr Lorazepam (Ativan) 0.5 mg IVP Q3H PRN PRN Reason: Anxiety Last Admin: 04/10/17 18:39 Dose: 0.5 mg Metoclopramide HCl (Reglan) 10 mg IVP Q12 [facility] Last Admin: 04/11/17 22:39 Dose: 10 mg Ondansetron HCl (Zofran Inj) 4 mg IVP Q6H PRN PRN Reason: Nausea/Vomiting Last Admin: 04/11/17 21:39 Dose: 4 mg Pantoprazole Sodium (Protonix Inj) 40 mg IVP DAILY [facility] Last Admin: 04/11/17 10:05 Dose: 40 mg Saccharomyces Boulardii (Florastor) 250 mg PO BID [facility] Last Admin: 04/11/17 19:00 Dose: Not Given Thiamine HCl (Vitamin B1 Tab) 100 mg PO DAILY [facility] Last Admin: 04/11/17 10:05 Dose: 100 mg - Labs Labs: 04/12/17 06:10 04/12/17 06:11 PT 21.6 SECONDS (9.7-12.2) H 04/08/17 12:45 INR 1.9 04/08/17 12:45 APTT 30 SECONDS (21-34) 04/08/17 12:45 - Constitutional Appears: No Acute Distress - Head Exam Head Exam: ATRAUMATIC, NORMAL INSPECTION - Respiratory Exam Respiratory Exam: NORMAL BREATHING PATTERN - Cardiovascular Exam Cardiovascular Exam: Tachycardia, +S1, +S2 - GI/Abdominal Exam GI & Abdominal Exam: Soft - Extremities Exam Extremities Exam: Normal Inspection - Neurological Exam Neurological Exam: absent: Alert, Awake, Oriented x3 - Psychiatric Exam Additional comments: sleeping, but non verbal at baseline - Skin Skin Exam: Dry, Intact, Normal Color, Warm Assessment and Plan - Assessment and Plan (Free Text) Assessment: 36F with gastric motility disorder f/u chest x-ray No immediate surgical intervention at this time Will continue to follow clinically Suni Wade PGY-1
--- NOTE | 2017-04-12 07:41 | CP.PCM.PN ---
<RaoulKatheryn cannon - Last Filed: 04/12/17 08:52> Subjective - Date & Time of Evaluation Date of Evaluation: 04/12/17 Time of Evaluation: 06:30 - Subjective Subjective: GI Fellow PGY4 Progress Note, Pt seen and evaluated at bedise, pt very agitated on exam with HR jumping to 140s, nurse at bedside, pt with hand mittens attempting to pull NGT. Pt with 200cc of bilious output through NGT over 12hrs. Reported 1 BM overnight pasty brown, no melena or hematochezia noted. Pt nonverbal, moaning alot. ROS: A 12pt ROS unable to be obtained due to nonverbal Objective - Vital Signs/Intake and Output Vital Signs (last 24 hours): Temp Pulse Resp BP Pulse Ox 98.3 F 132 H 12 105/66 76 L 04/12/17 04:00 04/12/17 07:00 04/12/17 07:00 04/12/17 06:58 04/12/17 07:00 Intake and Output: 04/12/17 04/12/17 06:59 18:59 Intake Total 1804 142 Output Total 980 0 Balance 824 142 - Medications Medications: Current Medications Acetaminophen (Tylenol 325 Mg Supp) 325 mg VA Q4 PRN PRN Reason: Fever >100.4 F Last Admin: 04/10/17 13:20 Dose: 325 mg Ascorbic Acid (Vitamin C 500 Mg Tab) 500 mg PO DAILY [facility] Last Admin: 04/11/17 10:05 Dose: 500 mg Haloperidol Lactate (Haldol) 1 mg IVP BID PRN PRN Reason: Agitation Last Admin: 04/10/17 23:00 Dose: 1 mg Hydromorphone HCl (Dilaudid) 0.5 mg IVP Q4H PRN PRN Reason: Pain, severe (8-10) Last Admin: 04/12/17 05:49 Dose: 0.5 mg Vancomycin/Sodium Chloride (Vancomycin 1 Gm/Ns 200 Ml) 1 gm in 200 mls @ 133.333 mls/hr IVPB Q24H [facility] Stop: 04/13/17 18:31 Last Admin: 04/09/17 18:55 Dose: 133.333 mls/hr Diltiazem HCl 125 mg/ Sodium (Chloride) 125 mls @ 5 mls/hr IV .Q24H PRN; 5 MG/ HR PRN Reason: Protocol Last Titration: 04/10/17 02:07 Dose: 0 mg/hr, 0 mls/hr Fat Emulsion Intravenous (Intralipid 20%) 500 mls @ 50 mls/hr IV TuThSa@1800 [facility] Last Admin: 04/09/17 18:11 Dose: 50 mls/hr Piperacillin Sod/Tazobactam Sod (Zosyn 3.375 Gm Iv Premix) 3.375 gm in 50 mls @ 100 mls/hr IVPB Q8H [facility] Last Admin: 04/12/17 02:19 Dose: 100 mls/hr Lactated Ringer's (Lactated Ringer's) 1,000 mls @ 100 mls/hr IV .Q10H [facility] Last Admin: 04/12/17 05:35 Dose: 100 mls/hr Sodium Chloride 40 meq/Magnesium Sulfate 6 meq/Calcium Gluconate 4.5 meq/ Chromium/Copper/Manganese/Zinc 1 ml/ Multivitamins/Vitamin C 10 ml/ Amino Acids 1,032.1552 mls @ 42 mls/hr IV .Q24H [facility] Stop: 04/12/17 17:59 Last Admin: 04/11/17 17:25 Dose: 42 mls/hr Lorazepam (Ativan) 0.5 mg IVP Q3H PRN PRN Reason: Anxiety Last Admin: 04/10/17 18:39 Dose: 0.5 mg Metoclopramide HCl (Reglan) 10 mg IVP Q12 [facility] Last Admin: 04/11/17 22:39 Dose: 10 mg Ondansetron HCl (Zofran Inj) 4 mg IVP Q6H PRN PRN Reason: Nausea/Vomiting Last Admin: 04/11/17 21:39 Dose: 4 mg Pantoprazole Sodium (Protonix Inj) 40 mg IVP DAILY [facility] Last Admin: 04/11/17 10:05 Dose: 40 mg Saccharomyces Boulardii (Florastor) 250 mg PO BID [facility] Last Admin: 04/11/17 19:00 Dose: Not Given Thiamine HCl (Vitamin B1 Tab) 100 mg PO DAILY [facility] Last Admin: 04/11/17 10:05 Dose: 100 mg - Labs Labs: 04/12/17 06:10 04/12/17 06:11 PT 21.6 SECONDS (9.7-12.2) H 04/08/17 12:45 INR 1.9 04/08/17 12:45 APTT 30 SECONDS (21-34) 04/08/17 12:45 - Constitutional Appears: In Acute Distress, Agitated - Head Exam Head Exam: ATRAUMATIC, NORMAL INSPECTION, NORMOCEPHALIC - Eye Exam Eye Exam: EOMI, Normal appearance, PERRL - ENT Exam ENT Exam: Mucous Membranes Dry Additional comments: NGT - Neck Exam Neck Exam: Full ROM - Respiratory Exam Respiratory Exam: Decreased Breath Sounds, Rhonchi - Cardiovascular Exam Cardiovascular Exam: Tachycardia - GI/Abdominal Exam GI & Abdominal Exam: Soft, Tenderness, Normal Bowel Sounds. absent: Distended, Guarding, Rigid, Organomegaly - Rectal Exam Additional comments: brown/green stool - Extremities Exam Extremities Exam: Normal Inspection - Neurological Exam Neurological Exam: Alert, Awake - Psychiatric Exam Psychiatric exam: Agitated - Skin Skin Exam: Dry, Intact, Normal Color, Warm Assessment and Plan - Assessment and Plan (Free Text) Assessment: Alondra Rivera is a 37F w/ hx of Schizophrenia, mental disability who presents to the hospital due to abd pain diarrhea. She was found to have acute pancreatitis and severe gastric distention with retained food which markedly improved after NG placement. Subsequently, her condition again worsened after a few days, after resuming diet. She also has presumed sepsis of unknown source. Renal function is worsening with Cr rising and BUN s/p HD. 1. Complicated Acute pancreatitis, etiology unknown 2. Ilieus 2/2 above 3. Loculated fluid collection, etiology unknown, abscess vs psuedocyst 4. Marked stomach distention (improved) 5. Renal failure s/p HD 6. Anemia Plan: -Continue supportive care with pain control, antiemetics -Continue NPO, no Tube Feeds, on PPN -NGT oupt was 200ml last night, decreasing -Will consider starting enteric feeds tomorrow if continue improvement with decreased NG outpt and BM -Continue antibiotics as per ID, WBC decreasing, afebrile, blood/urine cx negative -Continue PPI and Reglan daily -Continue LR, recommend increased fluid resuscitation, IGG4 pendng, TG normal, no gallstones on imaging, CBD normal, LFTs normal, will order abd us -Will order stool studies to r/o infectious etiology -Renal failure, oliguric, s/p HD with imrproved renal function -Keep hgb > 7, no overt GI bleeding, brown stool, maybe due to renal disease, did have FOBT positive so will consider EGD once hemodynamically stable -Will consider repeat CT A/P with IV contrast in coordination with next HD cessation -Will continue to follow closely <Rivas Lau - Last Filed: 04/12/17 09:25> Objective - Vital Signs/Intake and Output Vital Signs (last 24 hours): Temp Pulse Resp BP Pulse Ox 98.3 F 136 H 12 123/67 96 04/12/17 04:00 04/12/17 08:43 04/12/17 08:43 04/12/17 08:43 04/12/17 08:43 Intake and Output: 04/12/17 04/12/17 06:59 18:59 Intake Total 1804 284 Output Total 980 15 Balance 824 269 - Medications Medications: Current Medications Acetaminophen (Tylenol 325 Mg Supp) 325 mg VA Q4 PRN PRN Reason: Fever >100.4 F Last Admin: 04/10/17 13:20 Dose: 325 mg Ascorbic Acid (Vitamin C 500 Mg Tab) 500 mg PO DAILY [facility] Last Admin: 04/11/17 10:05 Dose: 500 mg Haloperidol Lactate (Haldol) 1 mg IVP BID PRN PRN Reason: Agitation Last Admin: 04/10/17 23:00 Dose: 1 mg Hydromorphone HCl (Dilaudid) 0.5 mg IVP Q4H PRN PRN Reason: Pain, severe (8-10) Last Admin: 04/12/17 08:36 Dose: 0.5 mg Vancomycin/Sodium Chloride (Vancomycin 1 Gm/Ns 200 Ml) 1 gm in 200 mls @ 133.333 mls/hr IVPB Q24H [facility] Stop: 04/13/17 18:31 Last Admin: 04/09/17 18:55 Dose: 133.333 mls/hr Diltiazem HCl 125 mg/ Sodium (Chloride) 125 mls @ 5 mls/hr IV .Q24H PRN; 5 MG/ HR PRN Reason: Protocol Last Titration: 04/10/17 02:07 Dose: 0 mg/hr, 0 mls/hr Fat Emulsion Intravenous (Intralipid 20%) 500 mls @ 50 mls/hr IV TuThSa@1800 [facility] Last Admin: 04/09/17 18:11 Dose: 50 mls/hr Piperacillin Sod/Tazobactam Sod (Zosyn 3.375 Gm Iv Premix) 3.375 gm in 50 mls @ 100 mls/hr IVPB Q8H [facility] Last Admin: 04/12/17 02:19 Dose: 100 mls/hr Lactated Ringer's (Lactated Ringer's) 1,000 mls @ 100 mls/hr IV .Q10H [facility] Last Admin: 04/12/17 08:38 Dose: 100 mls/hr Sodium Chloride 40 meq/Magnesium Sulfate 6 meq/Calcium Gluconate 4.5 meq/ Chromium/Copper/Manganese/Zinc 1 ml/ Multivitamins/Vitamin C 10 ml/ Amino Acids 1,032.1552 mls @ 42 mls/hr IV .Q24H [facility] Stop: 04/12/17 17:59 Last Admin: 04/11/17 17:25 Dose: 42 mls/hr Lorazepam (Ativan) 0.5 mg IVP Q3H PRN PRN Reason: Anxiety Last Admin: 04/10/17 18:39 Dose: 0.5 mg Metoclopramide HCl (Reglan) 10 mg IVP Q12 [facility] Last Admin: 04/11/17 22:39 Dose: 10 mg Ondansetron HCl (Zofran Inj) 4 mg IVP Q6H PRN PRN Reason: Nausea/Vomiting Last Admin: 04/11/17 21:39 Dose: 4 mg Pantoprazole Sodium (Protonix Inj) 40 mg IVP DAILY [facility] Last Admin: 04/11/17 10:05 Dose: 40 mg Saccharomyces Boulardii (Florastor) 250 mg PO BID [facility] Last Admin: 04/11/17 19:00 Dose: Not Given Thiamine HCl (Vitamin B1 Tab) 100 mg PO DAILY [facility] Last Admin: 04/11/17 10:05 Dose: 100 mg - Labs Labs: 04/12/17 06:10 04/12/17 06:11 PT 14.1 SECONDS (9.7-12.2) H 04/12/17 08:41 INR 1.3 04/12/17 08:41 APTT 30 SECONDS (21-34) 04/08/17 12:45 Attending/Attestation - Attestation I have personally seen and examined this patient.: Yes I have fully participated in the care of the patient.: Yes I have reviewed all pertinent clinical information, including history, physical exam and plan: Yes Notes (Text): 04/12/17 09:19 I have seen and examined patient with GI fellow. No acute events overnight, she remains in critical care unit, agitated. There is no reported abdominal pain, vomiting, fever/chills. NGT output decreased to 200 cc over past 12 hours. As per nursing staff, patient had one soft bowel movement overnight. Review of vitals from today shows tachycardia. Schizophrenia - patient non-verbal at baseline Sepsis - enteritis Acute pancreatitis - unclear etiology Acute renal failure - s/p initiation of dialysis on current hospitalization Anemia - NPO - Continue with IVF hydration therapy - Obtain abdominal US to evaluate for presence of gallstones - Awaiting autoimmune IGG4 panel - Continue with PPN for time being. Continue to monitor NGT output, would favor initiation of enteral feeding as soon as possible. - Follow up nephrology recommendations - Monitor H/H, patient to receive 1 U PRBC during dialysis. No signs of overt bleeding noted. - Continue with antibiotic therapy - Obtain stool studies - Patient should have follow up CT imaging (will need to coordinate with dialysis) to follow up on pancreatitis and ensure resolution of abdominal loculated fluid collection - Will continue to monitor patient clinical course
--- NOTE | 2017-04-12 08:16 | RAD ---
HISTORY: low saturation suspected pneumonia COMPARISON: 04/05/2017 at 2239 hour FINDINGS: LUNGS: Shallow lung volume. Left basal consolidation - probably minimally increased and or accentuated with interval hydration PLEURA: Left pleural effusion - similar to minimally increased, no pneumothorax apparent. CARDIOVASCULAR: Minimal cardiomegaly. Overall central pulmonary vasculature appears increased and correlation with any interval hydration OSSEOUS STRUCTURES: No significant abnormalities. VISUALIZED UPPER ABDOMEN: Normal. OTHER FINDINGS: An interval NG tube is inserted its tip is in the stomach . IMPRESSION: Persistent left base infiltrate with small left pleural effusion. Slight increase possible in both - versus increase perception with hydration - correlate clinically
[2017-04-12 08:49] LABS: INR 1.3; PROTHROMBIN TIME 14.1 SECONDS (9.7-12.2)
[2017-04-12] MEDS: Saccharomyces Boulardi 250 mg Cap PO SCH ×2 (10:16→18:08)
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
[2017-04-12 12:30] LABS: HEPATITIS B SURFACE AG NEGATIVE (NEGATIVE)
[2017-04-12 12:35] LABS: HEPATITIS B CORE AB Negative (NEGATIVE)
[2017-04-12] MEDS ORDERED: Pantoprazole 80 MG in Sodium Chloride 0.9% 100 ML IVP SCH (14:15)
--- NOTE | 2017-04-12 14:34 | CP.CCUPN ---
Addendum entered and electronically signed by Pari Smith DO 04/12/17 14:36: per Dr. Lau: patient to receive 1 U PRBC during dialysis. No signs of overt bleeding noted. Patient is to continue with antibiotic therapy, stool studies ordered, to have follow up CT imaging (will need to coordinate with dialysis) to follow up on pancreatitis and ensure resolution of abdominal loculated fluid collection. Patient is to be on dialysis due to oliguric state 04/11/2017. Will continue to monitor hourly urine output Original Note: <Pari Smith - Last Filed: 04/12/17 14:31> CCU Subjective - Physician Review Subjective (Free Text): 04/12/17 14:31 Critical Care Progress Note for Dr. Guerin Patient seen and examined at bedside. No acute events overnight. Patient had NGT output of 700cc over 24 hours. Patient is making urine, but minimal amounts. NGT has ~ 100cc of bloody output. Patient appears to be diaphoretic and reaches for hand when palpating the abdomen. Critical Care Time Spent (in minutes): 35 CCU Objective - Vital Signs / Intake & Output Vital Signs (Last 4 hours): Vital Signs Pulse Resp BP Pulse Ox 04/12/17 11:44 137 H 20 112/81 97 04/12/17 11:28 129 H 11 L 100/63 98 04/12/17 11:13 125 H 10 L 98/59 L 98 04/12/17 11:00 129 H 11 L 96 04/12/17 10:58 128 H 9 L 109/57 L 97 04/12/17 10:43 136 H 14 109/67 97 Intake and Output (Last 8hrs): Intake & Output 04/11/17 04/12/17 04/12/17 22:59 06:59 14:59 Intake Total 1386 1186 710 Output Total 730 250 35 Balance 656 936 675 Weight 152 lb 1.903 oz Intake: Intake, IV Amount 1386 1186 710 Left Antecubital 800 800 500 Left Antecubital - Distal 250 50 Port Left Antecubital Y-site 336 336 210 Oral 0 0 0 Output: Gastric Amount 500 200 Right Nares 500 200 Urine 230 50 35 Urethral (Tovar) 230 50 35 - Physical Exam Head: Positive for: Atraumatic, Normocephalic. Negative for: Tenderness Pupils: Positive for: PERRL Extroacular Muscles: Positive for: EOMI Mouth: Positive for: Moist Mucous Membranes. Negative for: Dry, Drooling Nose (External): Positive for: Other (NGT in place) Nose (Internal): Positive for: Normal Inspection, Moist Neck: Positive for: Normal Range of Motion. Negative for: JVD, Lymphadenopathy Respiratory/Chest: Positive for: Clear to Auscultation. Negative for: Respiratory Distress, Accessory Muscle Use Cardiovascular: Positive for: Regular Rate and Rhythm, Normal S1, S2 Abdomen: Positive for: Tenderness (mild tenderness of palpation. patient continues to move her arms towards hands on palpation). Negative for: Distention, Guarding Upper Extremity: Positive for: Normal Inspection, Normal ROM, Capillary Refill < 2s. Negative for: Edema Lower Extremity: Positive for: Normal Inspection. Negative for: Edema Neurological: Positive for: CN II-XII Intact Skin: Positive for: Warm, Pale Psychiatric: Positive for: Alert - Medications Active Medications: Active Medications Generic Name Dose Route Start Last Admin Trade Name Freq PRN Reason Stop Dose Admin Acetaminophen 325 mg 03/29/17 07:57 04/10/17 13:20 Tylenol 325 Mg Supp AR 325 mg Q4 PRN Administration Fever >100.4 F Ascorbic Acid 500 mg 04/08/17 12:30 04/12/17 10:16 Vitamin C 500 Mg Tab PO 500 mg DAILY AGUSTIN Administration Haloperidol Lactate 1 mg 03/29/17 18:47 04/10/17 23:00 Haldol IVP 1 mg BID PRN Administration Agitation Hydromorphone HCl 0.5 mg 04/10/17 23:09 04/12/17 13:34 Dilaudid IVP 0.5 mg Q4H PRN Administration Pain, severe (8-10) Vancomycin/Sodium Chloride 1 gm in 200 mls @ 133.333 mls/hr 04/08/17 18:30 18:55 Vancomycin 1 Gm/Ns 200 Ml IVPB 04/13/17 18:31 133.333 mls/hr Q24H AGUSTIN Administration Diltiazem HCl 125 mg/ Sodium 125 mls @ 5 mls/hr 04/08/17 20:05 04/10/17 02:07 Chloride IV 0 mg/hr .Q24H PRN 0 mls/hr Protocol Titration 5 MG/HR Fat Emulsion Intravenous 500 mls @ 50 mls/hr 04/09/17 18:00 04/09/17 18:11 Intralipid 20% IV 50 mls/hr [id number]@1800 AGUSTIN Administration Lactated Ringer's 1,000 mls @ 100 mls/hr 04/11/17 10:02 04/12/17 08:38 Lactated Ringer's IV 100 mls/hr .Q10H AGUSTIN Administration Sodium Chloride 40 meq/ 1,032.1552 mls @ 42 mls/hr 04/11/17 18:00 04/11/17 17 :25 Magnesium Sulfate 6 meq/ IV 04/12/17 17:59 42 mls/hr Calcium Gluconate 4.5 meq/ .Q24H AGUSTIN Administration Chromium/Copper/Manganese/Zinc 1 ml/ Multivitamins/Vitamin C 10 ml/ Amino Acids Piperacillin Sod/Tazobactam Sod 2.25 gm in 50 mls @ 100 mls/hr 04/12/17 18:00 Zosyn 2.25 Gm Iv Premix IVPB Q8H [facility] Sodium Chloride 40 meq/ 1,032.1552 mls @ 42 mls/hr 04/12/17 18:00 Magnesium Sulfate 6 meq/ IV 04/13/17 17:59 Calcium Gluconate 4.5 meq/ .Q24H [facility] Chromium/Copper/Manganese/Zinc 1 ml/ Multivitamins/Vitamin C 10 ml/ Amino Acids Pantoprazole Sodium 80 mg/ 100 mls @ 10 mls/hr 04/12/17 14:30 Sodium Chloride IVPB 04/14/17 14:31 .Q10H AGUSTIN 8 MG/HR Lorazepam 0.5 mg 04/01/17 16:08 04/12/17 10:51 Ativan IVP 0.5 mg Q3H PRN Administration Anxiety Metoclopramide HCl 10 mg 04/03/17 22:00 04/12/17 10:23 Reglan IVP 10 mg Q12 AGUSTIN Administration Ondansetron HCl 4 mg 03/27/17 23:45 04/11/17 21:39 Zofran Inj IVP 4 mg Q6H PRN Administration Nausea/Vomiting Pantoprazole Sodium 40 mg 04/02/17 10:00 04/11/17 10:05 Protonix Inj IVP 40 mg DAILY AGUSTIN Administration Pantoprazole Sodium 80 mg 04/12/17 14:30 Protonix Inj IVP 04/12/17 14:31 ONCE ONE Saccharomyces Boulardii 250 mg 04/08/17 18:00 04/12/17 10:16 Florastor PO 250 mg BID AGUSTIN Administration Thiamine HCl 100 mg 04/08/17 12:30 04/12/17 10:16 Vitamin B1 Tab PO 100 mg DAILY AGUSTIN Administration - Patient Studies Lab Studies: Microbiology Studies 04/08/17 11:47 Blood Culture - Preliminary Blood-Venous NO GROWTH AFTER 4 DAYS 04/08/17 11:47 Blood Culture - Preliminary Blood-Venous NO GROWTH AFTER 4 DAYS Lab Studies 04/12/17 04/12/17 04/12/17 Range/Units 11:21 08:41 06:11 WBC (4.8-10.8) K/uL RBC (3.80-5.20) Mil/uL Hgb (11.0-16.0) g/dL Hct (34.0-47.0) % MCV (81.0-99.0) fL MCH (27.0-31.0) pg MCHC (33.0-37.0) g/dL RDW (11.5-14.5) % Plt Count (130-400) K/uL MPV (7.2-11.7) fL Neut % (Auto) (50.0-75.0) % Lymph % (Auto) (20.0-40.0) % [place] % (Auto) (0.0-10.0) % Eos % (Auto) (0.0-4.0) % Baso % (Auto) (0.0-2.0) % Neut # (1.8-7.0) K/uL Lymph # (1.0-4.3) K/uL [place] # (0.0-0.8) K/uL Eos # (0.0-0.7) K/uL Baso # (0.0-0.2) K/uL PT 14.1 H (9.7-12.2) SECONDS INR 1.3 Sodium 133 (132-148) mmol/L Potassium 4.0 (3.6-5.2) mmol/L Chloride 97 L (98-107) mmol/L Carbon Dioxide 26 (22-30) mmol/L Anion Gap 14 (10-20) BUN 32 H (7-17) mg/dL Creatinine 4.2 H (0.7-1.2) mg/dL Est GFR ( Amer) 15 Est GFR (Non-Af Amer) 12 POC Glucose (mg/dL) 80 (65-110) mg/dL Random Glucose 81 (65-105) mg/dL Calcium 8.2 L (8.6-10.4) mg/dl Phosphorus 5.1 H (2.5-4.5) mg/dL Magnesium 1.9 (1.6-2.3) mg/dL Total Bilirubin 0.7 (0.2-1.3) mg/dL AST 16 (14-36) U/L ALT 18 (9-52) U/L Alkaline Phosphatase 98 (38-126) U/L Total Protein 6.1 L (6.3-8.3) g/dL Albumin 3.3 L D (3.5-5.0) g/dL Globulin 2.8 (2.2-3.9) gm/dL Albumin/Globulin Ratio 1.2 (1.0-2.1) Hep Bs Antigen (NEGATIVE) Hep Bs Antibody (NEGATIVE) Hep B Core IgM Ab (NEGATIVE) Mycoplasma pneumon IgG (<=0.90) 04/12/17 04/12/17 04/12/17 Range/Units 06:10 05:14 01:31 WBC 13.6 H (4.8-10.8) K/uL RBC 2.49 L (3.80-5.20) Mil/uL Hgb 7.0 L (11.0-16.0) g/dL Hct 20.4 L (34.0-47.0) % MCV 82.0 (81.0-99.0) fL MCH 28.1 (27.0-31.0) pg MCHC 34.3 (33.0-37.0) g/dL RDW 13.9 (11.5-14.5) % Plt Count 546 H (130-400) K/uL MPV 7.9 (7.2-11.7) fL Neut % (Auto) 75.3 H (50.0-75.0) % Lymph % (Auto) 11.2 L (20.0-40.0) % [place] % (Auto) 10.3 H (0.0-10.0) % Eos % (Auto) 2.9 (0.0-4.0) % Baso % (Auto) 0.3 (0.0-2.0) % Neut # 10.2 H (1.8-7.0) K/uL Lymph # 1.5 (1.0-4.3) K/uL [place] # 1.4 H (0.0-0.8) K/uL Eos # 0.4 (0.0-0.7) K/uL Baso # 0.0 (0.0-0.2) K/uL PT (9.7-12.2) SECONDS INR Sodium (132-148) mmol/L Potassium (3.6-5.2) mmol/L Chloride (98-107) mmol/L Carbon Dioxide (22-30) mmol/L Anion Gap (10-20) BUN (7-17) mg/dL Creatinine (0.7-1.2) mg/dL Est GFR ( Amer) Est GFR (Non-Af Amer) POC Glucose (mg/dL) 117 H 124 H (65-110) mg/dL Random Glucose (65-105) mg/dL Calcium (8.6-10.4) mg/dl Phosphorus (2.5-4.5) mg/dL Magnesium (1.6-2.3) mg/dL Total Bilirubin (0.2-1.3) mg/dL AST (14-36) U/L ALT (9-52) U/L Alkaline Phosphatase (38-126) U/L Total Protein (6.3-8.3) g/dL Albumin (3.5-5.0) g/dL Globulin (2.2-3.9) gm/dL Albumin/Globulin Ratio (1.0-2.1) Hep Bs Antigen (NEGATIVE) Hep Bs Antibody (NEGATIVE) Hep B Core IgM Ab (NEGATIVE) Mycoplasma pneumon IgG (<=0.90) 04/12/17 04/11/17 04/11/17 Range/Units 00:32 18:01 18:01 WBC (4.8-10.8) K/uL RBC (3.80-5.20) Mil/uL Hgb (11.0-16.0) g/dL Hct (34.0-47.0) % MCV (81.0-99.0) fL MCH (27.0-31.0) pg MCHC (33.0-37.0) g/dL RDW (11.5-14.5) % Plt Count (130-400) K/uL MPV (7.2-11.7) fL Neut % (Auto) (50.0-75.0) % Lymph % (Auto) (20.0-40.0) % [place] % (Auto) (0.0-10.0) % Eos % (Auto) (0.0-4.0) % Baso % (Auto) (0.0-2.0) % Neut # (1.8-7.0) K/uL Lymph # (1.0-4.3) K/uL [place] # (0.0-0.8) K/uL Eos # (0.0-0.7) K/uL Baso # (0.0-0.2) K/uL PT (9.7-12.2) SECONDS INR Sodium (132-148) mmol/L Potassium (3.6-5.2) mmol/L Chloride (98-107) mmol/L Carbon Dioxide (22-30) mmol/L Anion Gap (10-20) BUN (7-17) mg/dL Creatinine (0.7-1.2) mg/dL Est GFR ( Amer) Est GFR (Non-Af Amer) POC Glucose (mg/dL) 74 (65-110) mg/dL Random Glucose (65-105) mg/dL Calcium (8.6-10.4) mg/dl Phosphorus (2.5-4.5) mg/dL Magnesium (1.6-2.3) mg/dL Total Bilirubin (0.2-1.3) mg/dL AST (14-36) U/L ALT (9-52) U/L Alkaline Phosphatase (38-126) U/L Total Protein (6.3-8.3) g/dL Albumin (3.5-5.0) g/dL Globulin (2.2-3.9) gm/dL Albumin/Globulin Ratio (1.0-2.1) Hep Bs Antigen Negative (NEGATIVE) Hep Bs Antibody Positive (NEGATIVE) Hep B Core IgM Ab Negative (NEGATIVE) Mycoplasma pneumon IgG (<=0.90) 04/11/17 04/08/17 Range/Units 17:53 12:45 WBC (4.8-10.8) K/uL RBC (3.80-5.20) Mil/uL Hgb (11.0-16.0) g/dL Hct (34.0-47.0) % MCV (81.0-99.0) fL MCH (27.0-31.0) pg MCHC (33.0-37.0) g/dL RDW (11.5-14.5) % Plt Count (130-400) K/uL MPV (7.2-11.7) fL Neut % (Auto) (50.0-75.0) % Lymph % (Auto) (20.0-40.0) % [place] % (Auto) (0.0-10.0) % Eos % (Auto) (0.0-4.0) % Baso % (Auto) (0.0-2.0) % Neut # (1.8-7.0) K/uL Lymph # (1.0-4.3) K/uL [place] # (0.0-0.8) K/uL Eos # (0.0-0.7) K/uL Baso # (0.0-0.2) K/uL PT (9.7-12.2) SECONDS INR Sodium (132-148) mmol/L Potassium (3.6-5.2) mmol/L Chloride (98-107) mmol/L Carbon Dioxide (22-30) mmol/L Anion Gap (10-20) BUN (7-17) mg/dL Creatinine (0.7-1.2) mg/dL Est GFR ( Amer) Est GFR (Non-Af Amer) POC Glucose (mg/dL) 78 (65-110) mg/dL Random Glucose (65-105) mg/dL Calcium (8.6-10.4) mg/dl Phosphorus (2.5-4.5) mg/dL Magnesium (1.6-2.3) mg/dL Total Bilirubin (0.2-1.3) mg/dL AST (14-36) U/L ALT (9-52) U/L Alkaline Phosphatase (38-126) U/L Total Protein (6.3-8.3) g/dL Albumin (3.5-5.0) g/dL Globulin (2.2-3.9) gm/dL Albumin/Globulin Ratio (1.0-2.1) Hep Bs Antigen (NEGATIVE) Hep Bs Antibody (NEGATIVE) Hep B Core IgM Ab (NEGATIVE) Mycoplasma pneumon IgG 1.09 H (<=0.90) Laboratory Results - last 24 hr 04/08/17 04/11/17 04/11/17 12:45 17:53 18:01 WBC RBC Hgb Hct MCV MCH MCHC RDW Plt Count MPV Neut % (Auto) Lymph % (Auto) [place] % (Auto) Eos % (Auto) Baso % (Auto) Neut # Lymph # [place] # Eos # Baso # PT INR Sodium Potassium Chloride Carbon Dioxide Anion Gap BUN Creatinine Est GFR ( Amer) Est GFR (Non-Af Amer) POC Glucose (mg/dL) 78 Random Glucose Calcium Phosphorus Magnesium Total Bilirubin AST ALT Alkaline Phosphatase Total Protein Albumin Globulin Albumin/Globulin Ratio Hep Bs Antigen Negative Hep Bs Antibody Hep B Core IgM Ab Negative Mycoplasma pneumon IgG 1.09 H 04/11/17 04/12/17 04/12/17 18:01 00:32 01:31 WBC RBC Hgb Hct MCV MCH MCHC RDW Plt Count MPV Neut % (Auto) Lymph % (Auto) [place] % (Auto) Eos % (Auto) Baso % (Auto) Neut # Lymph # [place] # Eos # Baso # PT INR Sodium Potassium Chloride Carbon Dioxide Anion Gap BUN Creatinine Est GFR ( Amer) Est GFR (Non-Af Amer) POC Glucose (mg/dL) 74 124 H Random Glucose Calcium Phosphorus Magnesium Total Bilirubin AST ALT Alkaline Phosphatase Total Protein Albumin Globulin Albumin/Globulin Ratio Hep Bs Antigen Hep Bs Antibody Positive Hep B Core IgM Ab Mycoplasma pneumon IgG 04/12/17 04/12/17 04/12/17 05:14 06:10 06:11 WBC 13.6 H RBC 2.49 L Hgb 7.0 L Hct 20.4 L MCV 82.0 MCH 28.1 MCHC 34.3 RDW 13.9 Plt Count 546 H MPV 7.9 Neut % (Auto) 75.3 H Lymph % (Auto) 11.2 L [place] % (Auto) 10.3 H Eos % (Auto) 2.9 Baso % (Auto) 0.3 Neut # 10.2 H Lymph # 1.5 [place] # 1.4 H Eos # 0.4 Baso # 0.0 PT INR Sodium 133 Potassium 4.0 Chloride 97 L Carbon Dioxide 26 Anion Gap 14 BUN 32 H Creatinine 4.2 H Est GFR ( Amer) 15 Est GFR (Non-Af Amer) 12 POC Glucose (mg/dL) 117 H Random Glucose 81 Calcium 8.2 L Phosphorus 5.1 H Magnesium 1.9 Total Bilirubin 0.7 AST 16 ALT 18 Alkaline Phosphatase 98 Total Protein 6.1 L Albumin 3.3 L D Globulin 2.8 Albumin/Globulin Ratio 1.2 Hep Bs Antigen Hep Bs Antibody Hep B Core IgM Ab Mycoplasma pneumon IgG 04/12/17 04/12/17 08:41 11:21 WBC RBC Hgb Hct MCV MCH MCHC RDW Plt Count MPV Neut % (Auto) Lymph % (Auto) [place] % (Auto) Eos % (Auto) Baso % (Auto) Neut # Lymph # [place] # Eos # Baso # PT 14.1 H INR 1.3 Sodium Potassium Chloride Carbon Dioxide Anion Gap BUN Creatinine Est GFR ( Amer) Est GFR (Non-Af Amer) POC Glucose (mg/dL) 80 Random Glucose Calcium Phosphorus Magnesium Total Bilirubin AST ALT Alkaline Phosphatase Total Protein Albumin Globulin Albumin/Globulin Ratio Hep Bs Antigen Hep Bs Antibody Hep B Core IgM Ab Mycoplasma pneumon IgG Fingerstick Blood Sugar Results: 117 Critical Care Progress Note - Nutrition Nutrition: Nutrition Category Date Time Status NPO Diet [DIET] Diets 04/08/17 Dinner Active Assessment/Plan - Assessment and Plan (Free Text) Assessment: Neuro: hx of Schizophrenia, patient has mental retardation and can speak some words based on observation Altered mental status 04/07 Dr. Bedoya consulted Psych Consult: Dr. Mccloud Pain: 0.5 mg IVP Q4H PRN Sedation: 1mg Haldol IVP Q12H PRN 0.5mg Ativan Q3H PRN Nausea: Zofran 4mg IVP q6h PRN Reglan 10 mg IVP q4h PRN Psych: Psych Consult Dr. Mccloud: f/u 03/30 EKG to evaluate QTc Quetiapine (Seroquel) 200mg POBID, held d/t NGT on IWS, held awaiting Dr. Mccloud Recommendations Escitalopram (Lexapro) 10mg PO QD, held d/t NGT on IWS, held awaiting Dr. Mccloud Recommendations Cardio: Tachycardia 03/27 EKG Sinus tachycardia 138 bpm 03/30 EKG QTc 434, Sinus tachycardia at 153 bpm Diltiazem 125mg Q24hr @ 5mg/hr 04/08 Pulm: Aspiration pneumonia s/p EGD with intubation then extubation 03/27 AB.22, lactate 9.7 04/08 AB.50, CO2 24, O2 148, HCO3 22.9, lactate 1.0 03/27 CXR in infiltrates, no active pulmonary disease 03/30 CXR: poor inspiratory effort, areas suggestive of aspiration pneumonia 04/02: CT abdomen/pelvis/chest: pleural effusions, bilateral perihilar consolidations possibly due to multifocal pneumonia vs. atelectasis 04/04: CXR: Left lower lobe atelectasis/pneumonia and small left pleural effusion. Stable position of nasogastric tube and left PICC line. Endo: 03/28 Hemoglobin A1c 5.3 GI: Currently on PPN 03/28 Lipase 8456 03/29 Lipase 322 03/30 Lipase 64 03/30 GOBT positive 03/31 Pathology for Antrum biopsy from 03/29 EGD current biopsy negative for H pylori 04/01 f/u Dr. Harmon for repeat EGD., NGT 800 03/27 21:42 CT abdomen/pelvis with IV contrast: gastric distention 32cm and distention of the first and third and second portion of duodenum. Transition and complete decompression of third portion of duodenum. pancreas unremarkable, spleen unremarkable, partially contracted gallbladder. duodenal obstruction v delayed emptying v gastroparesis. Fluid distention of distal esophagus 3.3cm representing gastric emptying v gastroesophageal reflux. 03/27 CT abdomen/pelvis with IV contrast: significantly dilated stomach with retained food and fluid. significantly diminished prior to earlier CT 03/28. No free intraperitoneal gas identified. contrast noted in Gallbladder. 03/28 CT Chest/Abdomen/Pelvis: Left greater than right pleural effusion, bilateral perihilar consolidation. right more than left upper lobes and left more than right lower lobes. lingular consolidation representing multifocal pneumonia v. atelectasis versus mucous lugging and/or aspiration. interval worsening compared to prior exam 04/02 CT chest/abdomen/pelvis shows gastric distention 27cm, possible gastric pneumatosis, NGT at fundus with contrast fluid and gas level peripancreatic infiltration. gastric distension measuring 27 cm with possible gastric pneumatosis. intraperitoneal pelvic fluid with prominent surrounding peritoneal lining. Loculated ascites with peritoneal enhancement above spleen in retrogastric region. Lipase 320. 04/08 CT Chest/Abdomen/Pelvis: resolving acute pancreatitis, no residual peripancreatic fluid. 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 Distention of stomach due to gastric ileus. Ascites and loculated fluid posterior to the gastric fundus and cephalad to the spleen. Focal enteritis of proximal jejunum with mural thickening. Small left pleural effusion with left lower lobe compressive atelectasis. 03/[address] connected to suction. 03/28 NGT OP since insertion: 2600cc 03/29 2350 03/30 NGT 1160 03/31 NGT 630 04/01 NGT 800 04/02 NGT 100 04/04 550, NGT removed by patient, Flexiseal removed by patient f/u Strict I/Os 04/10 NGT 3300 04/11 NGT 1200 04/12 NGT 700, with about 100cc of bright red sanguinous blood, with bilious component. General Surgery Consult: Dr. Woodruff 03/[address] Harmon to have EGD today. 03/[address] Harmon, place patient on Reglan to help with motility. 03/30 Abdominal xray/obstructive series: minimal distention of stomach compared to previous imaging studies 03/31 Pathology for Antrum biopsy from 03/29 EGD current biopsy negative for H pylori 04/01 f/u Dr. Harmon for repeat EGD. Morphine 2 mg IV q4h PRN moderate pain Morphine 4 mg IV q4h PRN severe pain Zofran 4mg IVP q6h PRN Reglan 10 mg IVP q4h PRN Renal: 03/27 UA: proteinuria urine output since insertion 360 average hourly output 60cc/hr f/u Strict I/Os 03/31 Potassium Phosphorus 15mmole @63cc/hr : 03/27 UA: hazy, specific gravity >1.060, 3+ urine protein, Urine bacteria, Urine Yeast Ceftriaxone 1gm IVPB QD 03/30 Urine Cx negative Heme: GI bleed H/H: 03/27 14.6/44.7 03/28 12.9/38.5 03/29 11.2/33.0 03/30 9.5/27.7 03/31 9.4/27.5 04/01 8.9/25.8 04/02 9.1/26.7 04/04 9.9/28.8 04/05 9.4/28.4 04/09/04/10 9.6/29.9 1/ 7.8/22.6 04/12 7.0/20.4 03/28 FOBT positive 03/30 GOBT positive MSK: Patient can walk per sister, but is dizzy so hasn't walked PT/OT eval and treat when stable ID: Sepsis Code sepsis 03/28 02:20 03/28 lactate 9.7 03/28 lactate 01:05 9.2 03/28 lactate 06:15 1.3 03/27 WBC 26.7 03/28 WBC 30.2 03/29 WBC 21.3 03/30 WBC 16.1 03/31 WBC 15.7 04/02 WBC 16.8 04/03 WBC 18.4 04/04 WBC 18.6 04/05 WBC 20.1 04/06 WBC 23.2 04/08 08:19 WBC 36.1 04/08 19:10 WBC 37.4 04/09 06:24 WBC 33.3 04/10 06:52 WBC 20.4 Code sepsis 03/28 02:20 03/30 blood Culture x 2, negative 03/30 MRSA screen negative 03/30 Urine Cx negative 04/02 Blood culture x2 negative 03/29 Neutrophils 75, Bands 9 03/30 Neutrophils 83, Bands 1 04/02 Neutrophils 83 04/04 Neutrophils 73.8 04/05 Neutrophils 74.4 Code sepsis called again today 04/08. Patient was febrile (102 rectally and tachycardic ~140s) BP was 100/70. Tovar inserted to monitor urine output (nurse to clean TID with betadine) WBC 36.1 elevating from 20s. 4 bands Platelets 707 Fluids started 125 cc/hour BP stable Vanc 1gram Q12 hours IVPB Zosyn 3.375g IVPB Q8 hours Tyelnol 650mg rectally for 24 hours f/u CT abd/pelvis - patient appears to have an pneumonia in the left lower lung f/u legionella, step, and mycoplasma Flagyl 500mg IVPB Q8H Zosyn 3.375gm in 50cc IVPB Q8H Prophylaxis: GI: Protonix Drip Zofran 4mg IVP Q6H PRN Nausea Tylenol 325mg AR Q4H PRN Fluids: LR @100cc/hr Diet: NPO 04/04 NGT removed by patient, Flexiseal removed by patient, Left PICC removed by patient. 04/05 Patient downgraded to Regular Bed 04/11 Patient has a femoral dialysis catheter discussed with Dr. Apoorva Smith DO PGY1 - Date & Time Date: 04/12/17 Time: 14:31 <Irwin Guerin - Last Filed: 04/12/17 18:31> CCU Objective - Vital Signs / Intake & Output Vital Signs (Last 4 hours): Vital Signs Temp Pulse Resp BP Pulse Ox 04/12/17 16:13 140 H 15 134/96 H 95 04/12/17 16:00 99.8 F H 140 H 22 98 04/12/17 15:58 119 H 9 L 114/65 98 04/12/17 15:43 122 H 11 L 110/72 98 04/12/17 15:28 124 H 13 108/63 98 04/12/17 15:13 127 H 9 L 112/65 98 04/12/17 15:00 128 H 10 L 98 04/12/17 14:58 127 H 10 L 107/69 97 04/12/17 14:43 127 H 8 L 114/63 97 Intake and Output (Last 8hrs): Intake & Output 04/12/17 04/12/17 04/12/17 06:59 14:59 22:59 Intake Total 1186 1136 284 Output Total 250 35 0 Balance 936 1101 284 Intake: Intake, IV Amount 1186 1136 284 Left Antecubital 800 800 200 Left Antecubital - Distal 50 Port Left Antecubital Y-site 336 336 84 Oral 0 0 0 Output: Gastric Amount 200 Right Nares 200 Urine 50 35 0 Urethral (Tovar) 50 35 0 - Medications Active Medications: Active Medications Generic Name Dose Route Start Last Admin Trade Name Freq PRN Reason Stop Dose Admin Acetaminophen 325 mg 03/29/17 07:57 04/10/17 13:20 Tylenol 325 Mg Supp AR 325 mg Q4 PRN Administration Fever >100.4 F Ascorbic Acid 500 mg 04/08/17 12:30 04/12/17 10:16 Vitamin C 500 Mg Tab PO 500 mg DAILY AGUSTIN Administration Haloperidol Lactate 1 mg 03/29/17 18:47 04/10/17 23:00 Haldol IVP 1 mg BID PRN Administration Agitation Hydromorphone HCl 0.5 mg 04/10/17 23:09 04/12/17 13:34 Dilaudid IVP 0.5 mg Q4H PRN Administration Pain, severe (8-10) Vancomycin/Sodium Chloride 1 gm in 200 mls @ 133.333 mls/hr 04/08/17 18:30 18:55 Vancomycin 1 Gm/Ns 200 Ml IVPB 04/13/17 18:31 133.333 mls/hr Q24H AGUSTIN Administration Diltiazem HCl 125 mg/ Sodium 125 mls @ 5 mls/hr 04/08/17 20:05 04/10/17 02:07 Chloride IV 0 mg/hr .Q24H PRN 0 mls/hr Protocol Titration 5 MG/HR Fat Emulsion Intravenous 500 mls @ 50 mls/hr 04/09/17 18:00 04/09/17 18:11 Intralipid 20% IV 50 mls/hr [id number] AGUSTIN Administration Lactated Ringer's 1,000 mls @ 100 mls/hr 04/11/17 10:02 04/12/17 16:25 Lactated Ringer's IV Not Given .Q10H [facility] Piperacillin Sod/Tazobactam Sod 2.25 gm in 50 mls @ 100 mls/hr 04/12/17 18:00 Zosyn 2.25 Gm Iv Premix IVPB Q8H [facility] Sodium Chloride 40 meq/ 1,032.1552 mls @ 42 mls/hr 04/12/17 18:00 Magnesium Sulfate 6 meq/ IV 04/13/17 17:59 Calcium Gluconate 4.5 meq/ .Q24H [facility] Chromium/Copper/Manganese/Zinc 1 ml/ Multivitamins/Vitamin C 10 ml/ Amino Acids Pantoprazole Sodium 80 mg/ 100 mls @ 10 mls/hr 04/12/17 14:30 04/12/17 14:35 Sodium Chloride IVPB 04/14/17 14:31 10 mls/hr .Q10H AGUSTIN Administration 8 MG/HR Lorazepam 0.5 mg 04/01/17 16:08 04/12/17 10:51 Ativan IVP 0.5 mg Q3H PRN Administration Anxiety Metoclopramide HCl 10 mg 04/03/17 22:00 04/12/17 10:23 Reglan IVP 10 mg Q12 AGUSTIN Administration Ondansetron HCl 4 mg 03/27/17 23:45 04/11/17 21:39 Zofran Inj IVP 4 mg Q6H PRN Administration Nausea/Vomiting Pantoprazole Sodium 40 mg 04/02/17 10:00 04/12/17 14:30 Protonix Inj IVP Not Given DAILY AGUSTIN Saccharomyces Boulardii 250 mg 04/08/17 18:00 04/12/17 18:08 Florastor PO Not Given BID AGUSTIN Thiamine HCl 100 mg 04/08/17 12:30 04/12/17 10:16 Vitamin B1 Tab PO 100 mg DAILY AGUSTIN Administration - Patient Studies Lab Studies: Microbiology Studies 04/08/17 11:47 Blood Culture - Preliminary Blood-Venous NO GROWTH AFTER 4 DAYS 04/08/17 11:47 Blood Culture - Preliminary Blood-Venous NO GROWTH AFTER 4 DAYS Lab Studies 04/12/17 04/12/17 04/12/17 Range/Units 17:48 16:20 16:20 WBC 12.3 H (4.8-10.8) K/uL RBC 2.73 L (3.80-5.20) Mil/uL Hgb 7.4 L (11.0-16.0) g/dL Hct 22.4 L (34.0-47.0) % MCV 82.0 (81.0-99.0) fL MCH 27.0 (27.0-31.0) pg MCHC 32.9 L (33.0-37.0) g/dL RDW 13.6 (11.5-14.5) % Plt Count 596 H (130-400) K/uL MPV 7.1 L (7.2-11.7) fL Neut % (Auto) 76.3 H (50.0-75.0) % Lymph % (Auto) 9.1 L (20.0-40.0) % [place] % (Auto) 11.7 H (0.0-10.0) % Eos % (Auto) 2.7 (0.0-4.0) % Baso % (Auto) 0.2 (0.0-2.0) % Neut # 9.4 H (1.8-7.0) K/uL Lymph # 1.1 (1.0-4.3) K/uL [place] # 1.4 H (0.0-0.8) K/uL Eos # 0.3 (0.0-0.7) K/uL Baso # 0.0 (0.0-0.2) K/uL Neutrophils % (Manual) 79 H (50-75) % Band Neutrophils % 1 (0-2) % Lymphocytes % (Manual) 9 L (20-40) % Monocytes % (Manual) 8 (0-10) % Eosinophils % (Manual) 3 (0-4) % Platelet Estimate Increased H (NORMAL) Large Platelets Present Hypochromasia (manual) Moderate Poikilocytosis (manual Slight Anisocytosis (manual) Slight Microcytosis (manual) Slight Target Cells Slight Tear Drop Cells Slight Ovalocytes Slight [place] Cells Slight PT (9.7-12.2) SECONDS INR Sodium (132-148) mmol/L Potassium (3.6-5.2) mmol/L Chloride (98-107) mmol/L Carbon Dioxide (22-30) mmol/L Anion Gap (10-20) BUN (7-17) mg/dL Creatinine (0.7-1.2) mg/dL Est GFR ( Amer) Est GFR (Non-Af Amer) POC Glucose (mg/dL) 94 (65-110) mg/dL Random Glucose (65-105) mg/dL Calcium (8.6-10.4) mg/dl Phosphorus (2.5-4.5) mg/dL Magnesium (1.6-2.3) mg/dL Total Bilirubin (0.2-1.3) mg/dL AST (14-36) U/L ALT (9-52) U/L Alkaline Phosphatase (38-126) U/L Total Protein (6.3-8.3) g/dL Albumin (3.5-5.0) g/dL Globulin (2.2-3.9) gm/dL Albumin/Globulin Ratio (1.0-2.1) Hep Bs Antigen (NEGATIVE) Hep Bs Antibody (NEGATIVE) Hep B Core IgM Ab (NEGATIVE) Mycoplasma pneumon IgG (<=0.90) Blood Type O POSITIVE Antibody Screen Negative 04/12/17 04/12/17 04/12/17 Range/Units 11:21 08:41 06:11 WBC (4.8-10.8) K/uL RBC (3.80-5.20) Mil/uL Hgb (11.0-16.0) g/dL Hct (34.0-47.0) % MCV (81.0-99.0) fL MCH (27.0-31.0) pg MCHC (33.0-37.0) g/dL RDW (11.5-14.5) % Plt Count (130-400) K/uL MPV (7.2-11.7) fL Neut % (Auto) (50.0-75.0) % Lymph % (Auto) (20.0-40.0) % [place] % (Auto) (0.0-10.0) % Eos % (Auto) (0.0-4.0) % Baso % (Auto) (0.0-2.0) % Neut # (1.8-7.0) K/uL Lymph # (1.0-4.3) K/uL [place] # (0.0-0.8) K/uL Eos # (0.0-0.7) K/uL Baso # (0.0-0.2) K/uL Neutrophils % (Manual) (50-75) % Band Neutrophils % (0-2) % Lymphocytes % (Manual) (20-40) % Monocytes % (Manual) (0-10) % Eosinophils % (Manual) (0-4) % Platelet Estimate (NORMAL) Large Platelets Hypochromasia (manual) Poikilocytosis (manual Anisocytosis (manual) Microcytosis (manual) Target Cells Tear Drop Cells Ovalocytes [place] Cells PT 14.1 H (9.7-12.2) SECONDS INR 1.3 Sodium 133 (132-148) mmol/L Potassium 4.0 (3.6-5.2) mmol/L Chloride 97 L (98-107) mmol/L Carbon Dioxide 26 (22-30) mmol/L Anion Gap 14 (10-20) BUN 32 H (7-17) mg/dL Creatinine 4.2 H (0.7-1.2) mg/dL Est GFR ( Amer) 15 Est GFR (Non-Af Amer) 12 POC Glucose (mg/dL) 80 (65-110) mg/dL Random Glucose 81 (65-105) mg/dL Calcium 8.2 L (8.6-10.4) mg/dl Phosphorus 5.1 H (2.5-4.5) mg/dL Magnesium 1.9 (1.6-2.3) mg/dL Total Bilirubin 0.7 (0.2-1.3) mg/dL AST 16 (14-36) U/L ALT 18 (9-52) U/L Alkaline Phosphatase 98 (38-126) U/L Total Protein 6.1 L (6.3-8.3) g/dL Albumin 3.3 L D (3.5-5.0) g/dL Globulin 2.8 (2.2-3.9) gm/dL Albumin/Globulin Ratio 1.2 (1.0-2.1) Hep Bs Antigen (NEGATIVE) Hep Bs Antibody (NEGATIVE) Hep B Core IgM Ab (NEGATIVE) Mycoplasma pneumon IgG (<=0.90) Blood Type Antibody Screen 04/12/17 04/12/17 04/12/17 Range/Units 06:10 05:14 01:31 WBC 13.6 H (4.8-10.8) K/uL RBC 2.49 L (3.80-5.20) Mil/uL Hgb 7.0 L (11.0-16.0) g/dL Hct 20.4 L (34.0-47.0) % MCV 82.0 (81.0-99.0) fL MCH 28.1 (27.0-31.0) pg MCHC 34.3 (33.0-37.0) g/dL RDW 13.9 (11.5-14.5) % Plt Count 546 H (130-400) K/uL MPV 7.9 (7.2-11.7) fL Neut % (Auto) 75.3 H (50.0-75.0) % Lymph % (Auto) 11.2 L (20.0-40.0) % [place] % (Auto) 10.3 H (0.0-10.0) % Eos % (Auto) 2.9 (0.0-4.0) % Baso % (Auto) 0.3 (0.0-2.0) % Neut # 10.2 H (1.8-7.0) K/uL Lymph # 1.5 (1.0-4.3) K/uL [place] # 1.4 H (0.0-0.8) K/uL Eos # 0.4 (0.0-0.7) K/uL Baso # 0.0 (0.0-0.2) K/uL Neutrophils % (Manual) (50-75) % Band Neutrophils % (0-2) % Lymphocytes % (Manual) (20-40) % Monocytes % (Manual) (0-10) % Eosinophils % (Manual) (0-4) % Platelet Estimate (NORMAL) Large Platelets Hypochromasia (manual) Poikilocytosis (manual Anisocytosis (manual) Microcytosis (manual) Target Cells Tear Drop Cells Ovalocytes [place] Cells PT (9.7-12.2) SECONDS INR Sodium (132-148) mmol/L Potassium (3.6-5.2) mmol/L Chloride (98-107) mmol/L Carbon Dioxide (22-30) mmol/L Anion Gap (10-20) BUN (7-17) mg/dL Creatinine (0.7-1.2) mg/dL Est GFR ( Amer) Est GFR (Non-Af Amer) POC Glucose (mg/dL) 117 H 124 H (65-110) mg/dL Random Glucose (65-105) mg/dL Calcium (8.6-10.4) mg/dl Phosphorus (2.5-4.5) mg/dL Magnesium (1.6-2.3) mg/dL Total Bilirubin (0.2-1.3) mg/dL AST (14-36) U/L ALT (9-52) U/L Alkaline Phosphatase (38-126) U/L Total Protein (6.3-8.3) g/dL Albumin (3.5-5.0) g/dL Globulin (2.2-3.9) gm/dL Albumin/Globulin Ratio (1.0-2.1) Hep Bs Antigen (NEGATIVE) Hep Bs Antibody (NEGATIVE) Hep B Core IgM Ab (NEGATIVE) Mycoplasma pneumon IgG (<=0.90) Blood Type Antibody Screen 04/12/17 04/11/17 04/11/17 Range/Units 00:32 18:01 18:01 WBC (4.8-10.8) K/uL RBC (3.80-5.20) Mil/uL Hgb (11.0-16.0) g/dL Hct (34.0-47.0) % MCV (81.0-99.0) fL MCH (27.0-31.0) pg MCHC (33.0-37.0) g/dL RDW (11.5-14.5) % Plt Count (130-400) K/uL MPV (7.2-11.7) fL Neut % (Auto) (50.0-75.0) % Lymph % (Auto) (20.0-40.0) % [place] % (Auto) (0.0-10.0) % Eos % (Auto) (0.0-4.0) % Baso % (Auto) (0.0-2.0) % Neut # (1.8-7.0) K/uL Lymph # (1.0-4.3) K/uL [place] # (0.0-0.8) K/uL Eos # (0.0-0.7) K/uL Baso # (0.0-0.2) K/uL Neutrophils % (Manual) (50-75) % Band Neutrophils % (0-2) % Lymphocytes % (Manual) (20-40) % Monocytes % (Manual) (0-10) % Eosinophils % (Manual) (0-4) % Platelet Estimate (NORMAL) Large Platelets Hypochromasia (manual) Poikilocytosis (manual Anisocytosis (manual) Microcytosis (manual) Target Cells Tear Drop Cells Ovalocytes [place] Cells PT (9.7-12.2) SECONDS INR Sodium (132-148) mmol/L Potassium (3.6-5.2) mmol/L Chloride (98-107) mmol/L Carbon Dioxide (22-30) mmol/L Anion Gap (10-20) BUN (7-17) mg/dL Creatinine (0.7-1.2) mg/dL Est GFR ( Amer) Est GFR (Non-Af Amer) POC Glucose (mg/dL) 74 (65-110) mg/dL Random Glucose (65-105) mg/dL Calcium (8.6-10.4) mg/dl Phosphorus (2.5-4.5) mg/dL Magnesium (1.6-2.3) mg/dL Total Bilirubin (0.2-1.3) mg/dL AST (14-36) U/L ALT (9-52) U/L Alkaline Phosphatase (38-126) U/L Total Protein (6.3-8.3) g/dL Albumin (3.5-5.0) g/dL Globulin (2.2-3.9) gm/dL Albumin/Globulin Ratio (1.0-2.1) Hep Bs Antigen Negative (NEGATIVE) Hep Bs Antibody Positive (NEGATIVE) Hep B Core IgM Ab Negative (NEGATIVE) Mycoplasma pneumon IgG (<=0.90) Blood Type Antibody Screen 04/08/17 Range/Units 12:45 WBC (4.8-10.8) K/uL RBC (3.80-5.20) Mil/uL Hgb (11.0-16.0) g/dL Hct (34.0-47.0) % MCV (81.0-99.0) fL MCH (27.0-31.0) pg MCHC (33.0-37.0) g/dL RDW (11.5-14.5) % Plt Count (130-400) K/uL MPV (7.2-11.7) fL Neut % (Auto) (50.0-75.0) % Lymph % (Auto) (20.0-40.0) % [place] % (Auto) (0.0-10.0) % Eos % (Auto) (0.0-4.0) % Baso % (Auto) (0.0-2.0) % Neut # (1.8-7.0) K/uL Lymph # (1.0-4.3) K/uL [place] # (0.0-0.8) K/uL Eos # (0.0-0.7) K/uL Baso # (0.0-0.2) K/uL Neutrophils % (Manual) (50-75) % Band Neutrophils % (0-2) % Lymphocytes % (Manual) (20-40) % Monocytes % (Manual) (0-10) % Eosinophils % (Manual) (0-4) % Platelet Estimate (NORMAL) Large Platelets Hypochromasia (manual) Poikilocytosis (manual Anisocytosis (manual) Microcytosis (manual) Target Cells Tear Drop Cells Ovalocytes [place] Cells PT (9.7-12.2) SECONDS INR Sodium (132-148) mmol/L Potassium (3.6-5.2) mmol/L Chloride (98-107) mmol/L Carbon Dioxide (22-30) mmol/L Anion Gap (10-20) BUN (7-17) mg/dL Creatinine (0.7-1.2) mg/dL Est GFR ( Amer) Est GFR (Non-Af Amer) POC Glucose (mg/dL) (65-110) mg/dL Random Glucose (65-105) mg/dL Calcium (8.6-10.4) mg/dl Phosphorus (2.5-4.5) mg/dL Magnesium (1.6-2.3) mg/dL Total Bilirubin (0.2-1.3) mg/dL AST (14-36) U/L ALT (9-52) U/L Alkaline Phosphatase (38-126) U/L Total Protein (6.3-8.3) g/dL Albumin (3.5-5.0) g/dL Globulin (2.2-3.9) gm/dL Albumin/Globulin Ratio (1.0-2.1) Hep Bs Antigen (NEGATIVE) Hep Bs Antibody (NEGATIVE) Hep B Core IgM Ab (NEGATIVE) Mycoplasma pneumon IgG 1.09 H (<=0.90) Blood Type Antibody Screen Laboratory Results - last 24 hr 04/08/17 04/11/17 04/11/17 12:45 18:01 18:01 WBC RBC Hgb Hct MCV MCH MCHC RDW Plt Count MPV Neut % (Auto) Lymph % (Auto) [place] % (Auto) Eos % (Auto) Baso % (Auto) Neut # Lymph # [place] # Eos # Baso # Neutrophils % (Manual) Band Neutrophils % Lymphocytes % (Manual) Monocytes % (Manual) Eosinophils % (Manual) Platelet Estimate Large Platelets Hypochromasia (manual) Poikilocytosis (manual Anisocytosis (manual) Microcytosis (manual) Target Cells Tear Drop Cells Ovalocytes [place] Cells PT INR Sodium Potassium Chloride Carbon Dioxide Anion Gap BUN Creatinine Est GFR ( Amer) Est GFR (Non-Af Amer) POC Glucose (mg/dL) Random Glucose Calcium Phosphorus Magnesium Total Bilirubin AST ALT Alkaline Phosphatase Total Protein Albumin Globulin Albumin/Globulin Ratio Hep Bs Antigen Negative Hep Bs Antibody Positive Hep B Core IgM Ab Negative Mycoplasma pneumon IgG 1.09 H Blood Type Antibody Screen 04/12/17 04/12/17 04/12/17 00:32 01:31 05:14 WBC RBC Hgb Hct MCV MCH MCHC RDW Plt Count MPV Neut % (Auto) Lymph % (Auto) [place] % (Auto) Eos % (Auto) Baso % (Auto) Neut # Lymph # [place] # Eos # Baso # Neutrophils % (Manual) Band Neutrophils % Lymphocytes % (Manual) Monocytes % (Manual) Eosinophils % (Manual) Platelet Estimate Large Platelets Hypochromasia (manual) Poikilocytosis (manual Anisocytosis (manual) Microcytosis (manual) Target Cells Tear Drop Cells Ovalocytes [place] Cells PT INR Sodium Potassium Chloride Carbon Dioxide Anion Gap BUN Creatinine Est GFR ( Amer) Est GFR (Non-Af Amer) POC Glucose (mg/dL) 74 124 H 117 H Random Glucose Calcium Phosphorus Magnesium Total Bilirubin AST ALT Alkaline Phosphatase Total Protein Albumin Globulin Albumin/Globulin Ratio Hep Bs Antigen Hep Bs Antibody Hep B Core IgM Ab Mycoplasma pneumon IgG Blood Type Antibody Screen 04/12/17 04/12/17 04/12/17 06:10 06:11 08:41 WBC 13.6 H RBC 2.49 L Hgb 7.0 L Hct 20.4 L MCV 82.0 MCH 28.1 MCHC 34.3 RDW 13.9 Plt Count 546 H MPV 7.9 Neut % (Auto) 75.3 H Lymph % (Auto) 11.2 L [place] % (Auto) 10.3 H Eos % (Auto) 2.9 Baso % (Auto) 0.3 Neut # 10.2 H Lymph # 1.5 [place] # 1.4 H Eos # 0.4 Baso # 0.0 Neutrophils % (Manual) Band Neutrophils % Lymphocytes % (Manual) Monocytes % (Manual) Eosinophils % (Manual) Platelet Estimate Large Platelets Hypochromasia (manual) Poikilocytosis (manual Anisocytosis (manual) Microcytosis (manual) Target Cells Tear Drop Cells Ovalocytes [place] Cells PT 14.1 H INR 1.3 Sodium 133 Potassium 4.0 Chloride 97 L Carbon Dioxide 26 Anion Gap 14 BUN 32 H Creatinine 4.2 H Est GFR ( Amer) 15 Est GFR (Non-Af Amer) 12 POC Glucose (mg/dL) Random Glucose 81 Calcium 8.2 L Phosphorus 5.1 H Magnesium 1.9 Total Bilirubin 0.7 AST 16 ALT 18 Alkaline Phosphatase 98 Total Protein 6.1 L Albumin 3.3 L D Globulin 2.8 Albumin/Globulin Ratio 1.2 Hep Bs Antigen Hep Bs Antibody Hep B Core IgM Ab Mycoplasma pneumon IgG Blood Type Antibody Screen 04/12/17 04/12/17 04/12/17 11:21 16:20 16:20 WBC 12.3 H RBC 2.73 L Hgb 7.4 L Hct 22.4 L MCV 82.0 MCH 27.0 MCHC 32.9 L RDW 13.6 Plt Count 596 H MPV 7.1 L Neut % (Auto) 76.3 H Lymph % (Auto) 9.1 L [place] % (Auto) 11.7 H Eos % (Auto) 2.7 Baso % (Auto) 0.2 Neut # 9.4 H Lymph # 1.1 [place] # 1.4 H Eos # 0.3 Baso # 0.0 Neutrophils % (Manual) 79 H Band Neutrophils % 1 Lymphocytes % (Manual) 9 L Monocytes % (Manual) 8 Eosinophils % (Manual) 3 Platelet Estimate Increased H Large Platelets Present Hypochromasia (manual) Moderate Poikilocytosis (manual Slight Anisocytosis (manual) Slight Microcytosis (manual) Slight Target Cells Slight Tear Drop Cells Slight Ovalocytes Slight [place] Cells Slight PT INR Sodium Potassium Chloride Carbon Dioxide Anion Gap BUN Creatinine Est GFR ( Amer) Est GFR (Non-Af Amer) POC Glucose (mg/dL) 80 Random Glucose Calcium Phosphorus Magnesium Total Bilirubin AST ALT Alkaline Phosphatase Total Protein Albumin Globulin Albumin/Globulin Ratio Hep Bs Antigen Hep Bs Antibody Hep B Core IgM Ab Mycoplasma pneumon IgG Blood Type O POSITIVE Antibody Screen Negative 04/12/17 17:48 WBC RBC Hgb Hct MCV MCH MCHC RDW Plt Count MPV Neut % (Auto) Lymph % (Auto) [place] % (Auto) Eos % (Auto) Baso % (Auto) Neut # Lymph # [place] # Eos # Baso # Neutrophils % (Manual) Band Neutrophils % Lymphocytes % (Manual) Monocytes % (Manual) Eosinophils % (Manual) Platelet Estimate Large Platelets Hypochromasia (manual) Poikilocytosis (manual Anisocytosis (manual) Microcytosis (manual) Target Cells Tear Drop Cells Ovalocytes [place] Cells PT INR Sodium Potassium Chloride Carbon Dioxide Anion Gap BUN Creatinine Est GFR ( Amer) Est GFR (Non-Af Amer) POC Glucose (mg/dL) 94 Random Glucose Calcium Phosphorus Magnesium Total Bilirubin AST ALT Alkaline Phosphatase Total Protein Albumin Globulin Albumin/Globulin Ratio Hep Bs Antigen Hep Bs Antibody Hep B Core IgM Ab Mycoplasma pneumon IgG Blood Type Antibody Screen Critical Care Progress Note - Nutrition Nutrition: Nutrition Category Date Time Status NPO Diet [DIET] Diets 04/08/17 Dinner Active Assessment/Plan (1) Acute pancreatitis Current Visit: Yes Status: Acute Attending/Attestation - Attestation I have personally seen and examined this patient.: Yes I have fully participated in the care of the patient.: Yes I have reviewed all pertinent clinical information: Yes Notes (Text): 04/12/17 18:29 I have seen and examined the patient. Medical records, lab studies, and imaging were reviewed by me and a management plan was formulated on multidisciplinary rounds with resident Dr. Smith. I agree with their documented assessment and plan. Patient is clinically improved. Developed upper GI bleed from NGT, starting protonix drip and turned off suction. Tolerating dialysis. Will start on feeds tomorrow if abdomen remains stable. Critical Care Time 35 minutes. Multi-disciplinary rounds were performed with house staff, nursing, speech therapy, respiratory therapy, pharmacy and nutrition with integrated input from the primary team/attending and other consulting services. The documented time is cumulative and includes review of patient data/exams/labs/chart review and examination of the patient on rounds and throughout the day; time is exclusive of any procedures or teaching time.
[2017-04-12] MEDS: Pantoprazole 80 MG in Sodium Chloride 0.9% 100 ML IVPB SCH (14:35)
[2017-04-12 16:31] LABS: BASO % 0.2 % (0.0-2.0); EOS # 0.3 K/uL (0.0-0.7); EOS % 2.7 % (0.0-4.0); HEMOGLOBIN 7.4 g/dL (11.0-16.0); LYMPH # 1.1 K/uL (1.0-4.3); LYMPH % 9.1 % (20.0-40.0); MEAN CORPUSCULAR HGB CONC 32.9 g/dL (33.0-37.0); MEAN PLATELET VOLUME 7.1 fL (7.2-11.7); MONO # 1.4 K/uL (0.0-0.8); MONO % 11.7 % (0.0-10.0); NEUT # 9.4 K/uL (1.8-7.0); NEUT % 76.3 % (50.0-75.0); PLATELET COUNT 596 K/uL (130-400); RBC 2.73 Mil/uL (3.80-5.20); RED CELL DISTRIBUTION WIDTH 13.6 % (11.5-14.5); WHITE BLOOD COUNT 12.3 K/uL (4.8-10.8)
--- NOTE | 2017-04-12 16:32 | CP.PCM.PN ---
Subjective - Date & Time of Evaluation Date of Evaluation: 04/12/17 Time of Evaluation: 06:00 - Subjective Subjective: little improvement iv rx reordered poor prognosis Objective - Vital Signs/Intake and Output Vital Signs (last 24 hours): Temp Pulse Resp BP Pulse Ox 98.4 F 140 H 15 134/96 H 95 04/12/17 08:00 04/12/17 16:13 04/12/17 16:13 04/12/17 16:13 04/12/17 16:13 Intake and Output: 04/12/17 04/12/17 06:59 18:59 Intake Total 1804 994 Output Total 980 35 Balance 824 959 - Medications Medications: Current Medications Acetaminophen (Tylenol 325 Mg Supp) 325 mg [place] Q4 PRN PRN Reason: Fever >100.4 F Last Admin: 04/10/17 13:20 Dose: 325 mg Ascorbic Acid (Vitamin C 500 Mg Tab) 500 mg PO DAILY [facility] Last Admin: 04/12/17 10:16 Dose: 500 mg Haloperidol Lactate (Haldol) 1 mg IVP BID PRN PRN Reason: Agitation Last Admin: 04/10/17 23:00 Dose: 1 mg Hydromorphone HCl (Dilaudid) 0.5 mg IVP Q4H PRN PRN Reason: Pain, severe (8-10) Last Admin: 04/12/17 13:34 Dose: 0.5 mg Vancomycin/Sodium Chloride (Vancomycin 1 Gm/Ns 200 Ml) 1 gm in 200 mls @ 133.333 mls/hr IVPB Q24H [facility] Stop: 04/13/17 18:31 Last Admin: 04/09/17 18:55 Dose: 133.333 mls/hr Diltiazem HCl 125 mg/ Sodium (Chloride) 125 mls @ 5 mls/hr IV .Q24H PRN; 5 MG/ HR PRN Reason: Protocol Last Titration: 04/10/17 02:07 Dose: 0 mg/hr, 0 mls/hr Fat Emulsion Intravenous (Intralipid 20%) 500 mls @ 50 mls/hr IV TuThSa@1800 [facility] Last Admin: 04/09/17 18:11 Dose: 50 mls/hr Lactated Ringer's (Lactated Ringer's) 1,000 mls @ 100 mls/hr IV .Q10H [facility] Last Admin: 04/12/17 16:25 Dose: Not Given Sodium Chloride 40 meq/Magnesium Sulfate 6 meq/Calcium Gluconate 4.5 meq/ Chromium/Copper/Manganese/Zinc 1 ml/ Multivitamins/Vitamin C 10 ml/ Amino Acids 1,032.1552 mls @ 42 mls/hr IV .Q24H [facility] Stop: 04/12/17 17:59 Last Admin: 04/11/17 17:25 Dose: 42 mls/hr Piperacillin Sod/Tazobactam Sod (Zosyn 2.25 Gm Iv Premix) 2.25 gm in 50 mls @ 100 mls/hr IVPB Q8H [facility] Sodium Chloride 40 meq/Magnesium Sulfate 6 meq/Calcium Gluconate 4.5 meq/ Chromium/Copper/Manganese/Zinc 1 ml/ Multivitamins/Vitamin C 10 ml/ Amino Acids 1,032.1552 mls @ 42 mls/hr IV .Q24H [facility] Stop: 04/13/17 17:59 Pantoprazole Sodium 80 mg/ (Sodium Chloride) 100 mls @ 10 mls/hr IVPB .Q10H [facility] PRN Reason: 8 MG/HR Stop: 04/14/17 14:31 Last Admin: 04/12/17 14:35 Dose: 10 mls/hr Lorazepam (Ativan) 0.5 mg IVP Q3H PRN PRN Reason: Anxiety Last Admin: 04/12/17 10:51 Dose: 0.5 mg Metoclopramide HCl (Reglan) 10 mg IVP Q12 [facility] Last Admin: 04/12/17 10:23 Dose: 10 mg Ondansetron HCl (Zofran Inj) 4 mg IVP Q6H PRN PRN Reason: Nausea/Vomiting Last Admin: 04/11/17 21:39 Dose: 4 mg Pantoprazole Sodium (Protonix Inj) 40 mg IVP DAILY [facility] Last Admin: 04/12/17 14:30 Dose: Not Given Saccharomyces Boulardii (Florastor) 250 mg PO BID [facility] Last Admin: 04/12/17 10:16 Dose: 250 mg Thiamine HCl (Vitamin B1 Tab) 100 mg PO DAILY [facility] Last Admin: 04/12/17 10:16 Dose: 100 mg - Labs Labs: 04/12/17 06:10 04/12/17 06:11 PT 14.1 SECONDS (9.7-12.2) H 04/12/17 08:41 INR 1.3 04/12/17 08:41 APTT 30 SECONDS (21-34) 04/08/17 12:45 - Constitutional Appears: Cachectic, Chronically Ill - Head Exam Head Exam: NORMOCEPHALIC - Eye Exam Eye Exam: Normal appearance Pupil Exam: NORMAL ACCOMODATION - ENT Exam ENT Exam: Mucous Membranes Dry - Neck Exam Neck Exam: absent: Lymphadenopathy - Respiratory Exam Respiratory Exam: Decreased Breath Sounds, Rhonchi - Cardiovascular Exam Cardiovascular Exam: Tachycardia, REGULAR RHYTHM, +S1, +S2 - GI/Abdominal Exam GI & Abdominal Exam: Distended, Soft. absent: Tenderness - Rectal Exam Rectal Exam: Deferred Assessment and Plan - Assessment and Plan (Free Text) Assessment: cont rx sepsis prognosis guarded
[2017-04-12 16:54] LABS: ANISOCYTOSIS SLIGHT; BANDS 1 % (0-2); EOSINOPHIL 3 % (0-4); LYMPHOCYTE 9 % (20-40); MONOCYTE 8 % (0-10); NEUTROPHIL 79 % (50-75); PLATELET ESTIMATE INCREASED (NORMAL); POIKILOCYTOSIS SLIGHT; TOTAL CELLS COUNTED 100
[2017-04-12 16:55] LABS: BURR CELLS SLIGHT; HYPOCHROMIC MODERATE; LARGE PLATELETS PRESENT; MICROCYTOSIS SLIGHT; OVALOCYTES SLIGHT; TARGET CELLS SLIGHT; TEARDROP CELLS SLIGHT
--- NOTE | 2017-04-12 17:44 | CP.PCM.PN ---
Subjective - Date & Time of Evaluation Date of Evaluation: 04/12/17 Time of Evaluation: 17:41 - Subjective Subjective: patient seen and examined s/p hd x 1 treatment minimal uop copious ng output altered, anxious and agitated. 1:1 sitter unable to obtain ros Objective - Vital Signs/Intake and Output Vital Signs (last 24 hours): Temp Pulse Resp BP Pulse Ox 99.8 F H 140 H 15 134/96 H 95 04/12/17 16:00 04/12/17 16:13 04/12/17 16:13 04/12/17 16:13 04/12/17 16:13 Intake and Output: 04/12/17 04/12/17 06:59 18:59 Intake Total 1804 1420 Output Total 980 35 Balance 824 1385 - Medications Medications: Current Medications Acetaminophen (Tylenol 325 Mg Supp) 325 mg [place] Q4 PRN PRN Reason: Fever >100.4 F Last Admin: 04/10/17 13:20 Dose: 325 mg Ascorbic Acid (Vitamin C 500 Mg Tab) 500 mg PO DAILY [facility] Last Admin: 04/12/17 10:16 Dose: 500 mg Haloperidol Lactate (Haldol) 1 mg IVP BID PRN PRN Reason: Agitation Last Admin: 04/10/17 23:00 Dose: 1 mg Hydromorphone HCl (Dilaudid) 0.5 mg IVP Q4H PRN PRN Reason: Pain, severe (8-10) Last Admin: 04/12/17 13:34 Dose: 0.5 mg Vancomycin/Sodium Chloride (Vancomycin 1 Gm/Ns 200 Ml) 1 gm in 200 mls @ 133.333 mls/hr IVPB Q24H [facility] Stop: 04/13/17 18:31 Last Admin: 04/09/17 18:55 Dose: 133.333 mls/hr Diltiazem HCl 125 mg/ Sodium (Chloride) 125 mls @ 5 mls/hr IV .Q24H PRN; 5 MG/ HR PRN Reason: Protocol Last Titration: 04/10/17 02:07 Dose: 0 mg/hr, 0 mls/hr Fat Emulsion Intravenous (Intralipid 20%) 500 mls @ 50 mls/hr IV TuThSa@1800 [facility] Last Admin: 04/09/17 18:11 Dose: 50 mls/hr Lactated Ringer's (Lactated Ringer's) 1,000 mls @ 100 mls/hr IV .Q10H [facility] Last Admin: 04/12/17 16:25 Dose: Not Given Sodium Chloride 40 meq/Magnesium Sulfate 6 meq/Calcium Gluconate 4.5 meq/ Chromium/Copper/Manganese/Zinc 1 ml/ Multivitamins/Vitamin C 10 ml/ Amino Acids 1,032.1552 mls @ 42 mls/hr IV .Q24H [facility] Stop: 04/12/17 17:59 Last Admin: 04/11/17 17:25 Dose: 42 mls/hr Piperacillin Sod/Tazobactam Sod (Zosyn 2.25 Gm Iv Premix) 2.25 gm in 50 mls @ 100 mls/hr IVPB Q8H [facility] Sodium Chloride 40 meq/Magnesium Sulfate 6 meq/Calcium Gluconate 4.5 meq/ Chromium/Copper/Manganese/Zinc 1 ml/ Multivitamins/Vitamin C 10 ml/ Amino Acids 1,032.1552 mls @ 42 mls/hr IV .Q24H [facility] Stop: 04/13/17 17:59 Pantoprazole Sodium 80 mg/ (Sodium Chloride) 100 mls @ 10 mls/hr IVPB .Q10H [facility] PRN Reason: 8 MG/HR Stop: 04/14/17 14:31 Last Admin: 04/12/17 14:35 Dose: 10 mls/hr Lorazepam (Ativan) 0.5 mg IVP Q3H PRN PRN Reason: Anxiety Last Admin: 04/12/17 10:51 Dose: 0.5 mg Metoclopramide HCl (Reglan) 10 mg IVP Q12 [facility] Last Admin: 04/12/17 10:23 Dose: 10 mg Ondansetron HCl (Zofran Inj) 4 mg IVP Q6H PRN PRN Reason: Nausea/Vomiting Last Admin: 04/11/17 21:39 Dose: 4 mg Pantoprazole Sodium (Protonix Inj) 40 mg IVP DAILY [facility] Last Admin: 04/12/17 14:30 Dose: Not Given Saccharomyces Boulardii (Florastor) 250 mg PO BID [facility] Last Admin: 04/12/17 10:16 Dose: 250 mg Thiamine HCl (Vitamin B1 Tab) 100 mg PO DAILY [facility] Last Admin: 04/12/17 10:16 Dose: 100 mg - Labs Labs: 04/12/17 16:20 04/12/17 06:11 PT 14.1 SECONDS (9.7-12.2) H 04/12/17 08:41 INR 1.3 04/12/17 08:41 APTT 30 SECONDS (21-34) 04/08/17 12:45 - Constitutional Appears: In Acute Distress, Agitated, Chronically Ill - Head Exam Head Exam: NORMAL INSPECTION - Eye Exam Eye Exam: Normal appearance, PERRL - ENT Exam ENT Exam: Mucous Membranes Dry Additional comments: ng tube - Neck Exam Neck Exam: Normal Inspection - Respiratory Exam Respiratory Exam: Decreased Breath Sounds, Clear to Ausculation Bilateral - Cardiovascular Exam Cardiovascular Exam: REGULAR RHYTHM, RRR - GI/Abdominal Exam GI & Abdominal Exam: Distended, Soft, Diminished Bowel Sounds - Extremities Exam Extremities Exam: Normal Inspection, Pedal Edema - Neurological Exam Neurological Exam: Altered, Awake - Skin Skin Exam: Intact, Warm Assessment and Plan (1) JIMBO (acute kidney injury) Status: Acute (2) Acute pancreatitis Status: Acute (3) SBO (small bowel obstruction) Status: Acute (4) Mental retardation Status: Acute (5) Schizophrenia Status: Acute - Assessment and Plan (Free Text) Assessment: jimbo/atn maintain hd, next treatment tomorrow ppn watch electrolytes supportive care
[2017-04-12] MEDS ORDERED: PPN#5 IV SCH (18:00)
[2017-04-12] MEDS: Fat Emulsion 20% IV 500 ML IV SCH (18:20)
[2017-04-12] MEDS: Piperacill/Tazo 2.25gm in Dex 2.25 GM/50 ML BAG IVPB SCH (18:21)
--- NOTE | 2017-04-12 19:37 | US ---
EXAM: US Abdomen Complete EXAM DATE/TIME: Exam ordered 04/12/2017 8:50 AM CLINICAL HISTORY: 36 years old, female; Signs and symptoms; Other: R/O gallstones TECHNIQUE: Real-time ultrasound of the abdomen (complete) with image documentation. COMPARISON: CT - CHEST,ABD,PEL W/IV PO CONTRAST 2017-04-02 03:35 FINDINGS: Liver: . The liver measures 17.3 cm in craniocaudal span. The echotexture is heterogeneous. There is normal blood flow direction in the main portal vein. Gallbladder: Unremarkable. No gallstones. Common bile duct: The common bile duct measures 4 mm. No stones. No dilation. Pancreas: The pancreas is not well-seen due to bowel gas. Kidneys: The echotexture of the kidneys is abnormally increased. The right kidney measures 11.6 x 4.9 x 5.5 cm. the left kidney measures 11.6 x 6.2 x 5.2 cm. No stones. No hydronephrosis. Spleen: The spleen measures 9 cm in craniocaudal span.. No splenomegaly. Aorta: The distal abdominal aorta is not well-seen due to bowel gas. Proximally no evidence of aneurysm is noted Inferior vena cava: Unremarkable. Free fluid: Is a small amount of perisplenic ascites. Pleural space: There is a left pleural effusion. IMPRESSION: 1. No gallstones. 2. Abnormal liver echotexture may reflect an underlying infiltrative process 3. Echogenic kidneys indicates medical renal disease. 4. Small amount of perisplenic ascites 5. Left pleural effusion
--- NOTE | 2017-04-12 20:22 | CARD ---
APPROVED REPORT EKG Measurement Heart [id number] WV 132P [id number] <Conclusion> Sinus tachycardia T wave abnormality, consider inferior ischemia Abnormal ECG
--- NOTE | 2017-04-12 20:42 | CP.PCM.PN ---
Subjective - Date & Time of Evaluation Date of Evaluation: 04/12/17 Time of Evaluation: 10:05 - Subjective Subjective: Patient seen and evaluated Anxious and agitatated On cardizem drip for tachycardia Physical Exam - Constitutional Appears: In Acute Distress, Agitated, Chronically Ill - Head Exam Head Exam: ATRAUMATIC, NORMAL INSPECTION - Eye Exam Eye Exam: EOMI, Normal appearance - Neck Exam Neck exam: Positive for: Normal Inspection. Negative for: Tenderness - Respiratory Exam Respiratory Exam: Decreased Breath Sounds, NORMAL BREATHING PATTERN - Cardiovascular Exam Cardiovascular Exam: Tachycardia, +S1 - GI/Abdominal Exam GI & Abdominal Exam: Soft, Tenderness - Extremities Exam Extremities exam: Positive for: normal inspection. Negative for: tenderness - Neurological Exam Neurological exam: Altered, CN II-XII Intact - Skin Skin Exam: Dry, Warm Objective - Vital Signs/Intake and Output Vital Signs (last 24 hours): Temp Pulse Resp BP Pulse Ox 99.8 F H 137 H 16 115/73 95 04/12/17 16:00 04/12/17 20:00 04/12/17 20:00 04/12/17 20:00 04/12/17 20:00 Intake and Output: 04/12/17 04/13/17 18:59 06:59 Intake Total 1696 Output Total 250 Balance 1446 - Medications Medications: Current Medications Acetaminophen (Tylenol 325 Mg Supp) 325 mg NC Q4 PRN PRN Reason: Fever >100.4 F Last Admin: 04/10/17 13:20 Dose: 325 mg Ascorbic Acid (Vitamin C 500 Mg Tab) 500 mg PO DAILY [facility] Last Admin: 04/12/17 10:16 Dose: 500 mg Haloperidol Lactate (Haldol) 1 mg IVP BID PRN PRN Reason: Agitation Last Admin: 04/10/17 23:00 Dose: 1 mg Hydromorphone HCl (Dilaudid) 0.5 mg IVP Q4H PRN PRN Reason: Pain, severe (8-10) Last Admin: 04/12/17 18:14 Dose: 0.5 mg Vancomycin/Sodium Chloride (Vancomycin 1 Gm/Ns 200 Ml) 1 gm in 200 mls @ 133.333 mls/hr IVPB Q24H AGUSTIN Stop: 04/13/17 18:31 Last Admin: 04/09/17 18:55 Dose: 133.333 mls/hr Diltiazem HCl 125 mg/ Sodium (Chloride) 125 mls @ 5 mls/hr IV .Q24H PRN; 5 MG/ HR PRN Reason: Protocol Last Titration: 04/10/17 02:07 Dose: 0 mg/hr, 0 mls/hr Fat Emulsion Intravenous (Intralipid 20%) 500 mls @ 50 mls/hr IV [id number] [facility] Last Admin: 04/12/17 18:20 Dose: 50 mls/hr Lactated Ringer's (Lactated Ringer's) 1,000 mls @ 100 mls/hr IV .Q10H [facility] Last Admin: 04/12/17 16:25 Dose: Not Given Piperacillin Sod/Tazobactam Sod (Zosyn 2.25 Gm Iv Premix) 2.25 gm in 50 mls @ 100 mls/hr IVPB Q8H [facility] Last Admin: 04/12/17 18:21 Dose: 100 mls/hr Sodium Chloride 40 meq/Magnesium Sulfate 6 meq/Calcium Gluconate 4.5 meq/ Chromium/Copper/Manganese/Zinc 1 ml/ Multivitamins/Vitamin C 10 ml/ Amino Acids 1,032.1552 mls @ 42 mls/hr IV .Q24H [facility] Stop: 04/13/17 17:59 Last Admin: 04/12/17 18:23 Dose: 42 mls/hr Pantoprazole Sodium 80 mg/ (Sodium Chloride) 100 mls @ 10 mls/hr IVPB .Q10H [facility] PRN Reason: 8 MG/HR Stop: 04/14/17 14:31 Last Admin: 04/12/17 14:35 Dose: 10 mls/hr Lorazepam (Ativan) 0.5 mg IVP Q3H PRN PRN Reason: Anxiety Last Admin: 04/12/17 20:05 Dose: 0.5 mg Metoclopramide HCl (Reglan) 10 mg IVP Q12 [facility] Last Admin: 04/12/17 10:23 Dose: 10 mg Ondansetron HCl (Zofran Inj) 4 mg IVP Q6H PRN PRN Reason: Nausea/Vomiting Last Admin: 04/11/17 21:39 Dose: 4 mg Pantoprazole Sodium (Protonix Inj) 40 mg IVP DAILY [facility] Last Admin: 04/12/17 14:30 Dose: Not Given Saccharomyces Boulardii (Florastor) 250 mg PO BID [facility] Last Admin: 04/12/17 18:08 Dose: Not Given Thiamine HCl (Vitamin B1 Tab) 100 mg PO DAILY [facility] Last Admin: 04/12/17 10:16 Dose: 100 mg - Labs Labs: 04/12/17 16:20 04/12/17 06:11 PT 14.1 SECONDS (9.7-12.2) H 04/12/17 08:41 INR 1.3 04/12/17 08:41 APTT 30 SECONDS (21-34) 04/08/17 12:45 Assessment and Plan - Assessment and Plan (Free Text) Assessment: Assessment & Plan - Assessment and Plan (Free Text) Assessment: Tachycardia JIMBO Acute pancreatitis Volume depletion Sepsis syndrome Intra-abdominal fluid collection- possible abscess Plan: ECHO: Normal EF and no valvular issues Tachycardia most likely due to medical issues Cardizem drip/PO as needed
[2017-04-13] MEDS: Pantoprazole 80 MG in Sodium Chloride 0.9% 100 ML IVPB SCH ×3 (00:14→22:53)
[2017-04-13] MEDS: Lactated Ringer's 1,000 ML IV SCH ×2 (02:08→20:00)
[2017-04-13] MEDS: Piperacill/Tazo 2.25gm in Dex 2.25 GM/50 ML BAG IVPB SCH ×3 (02:08→18:46)
[2017-04-13 06:41] LABS: BASO # 0.1 K/uL (0.0-0.2); BASO % 0.3 % (0.0-2.0); EOS # 0.2 K/uL (0.0-0.7); EOS % 0.8 % (0.0-4.0); LYMPH # 1.6 K/uL (1.0-4.3); LYMPH % 8.8 % (20.0-40.0); MEAN CELL VOLUME 82.9 fL (81.0-99.0); MEAN CORPUSCULAR HEMOGLOBIN 30.4 pg (27.0-31.0); MEAN CORPUSCULAR HGB CONC 36.6 g/dL (33.0-37.0); MEAN PLATELET VOLUME 7.8 fL (7.2-11.7); MONO # 1.9 K/uL (0.0-0.8); NEUT # 14.9 K/uL (1.8-7.0); NEUT % 80.1 % (50.0-75.0); PLATELET COUNT 367 K/uL (130-400); RBC 1.33 Mil/uL (3.80-5.20); RED CELL DISTRIBUTION WIDTH 13.5 % (11.5-14.5); WHITE BLOOD COUNT 18.6 K/uL (4.8-10.8)
[2017-04-13 06:47] LABS: INR 1.4; PROTHROMBIN TIME 15.8 SECONDS (9.7-12.2)
[2017-04-13 06:58] LABS: HEMOGLOBIN 4.1 g/dL (11.0-16.0)
[2017-04-13 07:12] LABS: ALBUMIN 2.4 g/dL (3.5-5.0); CALCIUM 7.4 mg/dl (8.6-10.4)
--- NOTE | 2017-04-13 07:41 | CP.CCUPN ---
Addendum entered and electronically signed by Pari Smith DO 04/13/17 13:18: Patient had EGD today showing areas of diffuse ulceration, fibrous clotting, and probably ischemic changes. 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 Patient is to obtain Angio, patient is a dialysis patient and had 2 u PRBC given with dialysis today. Patient is to remain NPO, on Reglan, and continued on protonix drip. To f/u H/H Patient is to have repeat EGD tomorrow for further workup. Original Note: <Pari Smith - Last Filed: 04/13/17 07:47> CCU Subjective - Physician Review Subjective (Free Text): Critical Care Progress Note for Dr. Hernandez Patient seen and examined at bedside. Patient continues to have NGT off suction , clamped, with blood at NGT to gravity. Patient's hemoglobin 4.1, 2 u to be tranfused while on dialysis today. Critical Care Time Spent (in minutes): 35 CCU Objective - Vital Signs / Intake & Output Vital Signs (Last 4 hours): Vital Signs Temp Pulse Resp BP Pulse Ox 04/13/17 04:38 101.1 F H 04/13/17 04:00 101.1 F H 143 H 17 95/55 L 95 Intake and Output (Last 8hrs): Intake & Output 04/12/17 04/13/17 04/13/17 22:59 06:59 14:59 Intake Total 1306 1051 Output Total 215 0 Balance 1091 1051 Intake: IV 80 Intake, IV Amount 1306 971 Left Antecubital 650 Left Antecubital Y-site 462 Right Distal Port Upper 25 arm Right Femoral 84 336 Right Medial Port Femoral 100 550 Right Upper arm 10 60 Oral 0 0 Output: Gastric Amount 140 Right Nares 140 Urine 75 0 Urethral (Tovar) 75 0 Stool 0 0 - Physical Exam Head: Positive for: Atraumatic, Normocephalic. Negative for: Tenderness Pupils: Positive for: PERRL Extroacular Muscles: Positive for: EOMI Mouth: Positive for: Moist Mucous Membranes. Negative for: Dry, Drooling Nose (External): Positive for: Other (NGT in place) Nose (Internal): Positive for: Normal Inspection, Moist Neck: Positive for: Normal Range of Motion. Negative for: JVD, Lymphadenopathy Respiratory/Chest: Positive for: Clear to Auscultation. Negative for: Respiratory Distress, Accessory Muscle Use Cardiovascular: Positive for: Regular Rate and Rhythm, Normal S1, S2 Abdomen: Positive for: Tenderness (mild tenderness of palpation. patient continues to move her arms towards hands on palpation). Negative for: Distention, Guarding Upper Extremity: Positive for: Normal Inspection, Normal ROM, Capillary Refill < 2s. Negative for: Edema Lower Extremity: Positive for: Normal Inspection. Negative for: Edema Neurological: Positive for: CN II-XII Intact Skin: Positive for: Warm, Pale Psychiatric: Positive for: Alert - Medications Active Medications: Active Medications Generic Name Dose Route Start Last Admin Trade Name Freq PRN Reason Stop Dose Admin Acetaminophen 325 mg 03/29/17 07:57 04/13/17 04:38 Tylenol 325 Mg Supp SD 325 mg Q4 PRN Administration Fever >100.4 F Ascorbic Acid 500 mg 04/08/17 12:30 04/12/17 10:16 Vitamin C 500 Mg Tab PO 500 mg DAILY AGUSTIN Administration Haloperidol Lactate 1 mg 03/29/17 18:47 04/12/17 22:21 Haldol IVP 1 mg BID PRN Administration Agitation Hydromorphone HCl 0.5 mg 04/10/17 23:09 04/12/17 23:11 Dilaudid IVP 0.5 mg Q4H PRN Administration Pain, severe (8-10) Vancomycin/Sodium Chloride 1 gm in 200 mls @ 133.333 mls/hr 04/08/17 18:30 18:55 Vancomycin 1 Gm/Ns 200 Ml IVPB 04/13/17 18:31 133.333 mls/hr Q24H AGUSITN Administration Diltiazem HCl 125 mg/ Sodium 125 mls @ 5 mls/hr 04/08/17 20:05 04/13/17 00:05 Chloride IV 5 mg/hr .Q24H PRN 5 mls/hr Protocol Administration 5 MG/HR Fat Emulsion Intravenous 500 mls @ 50 mls/hr 04/09/17 18:00 04/12/17 18:20 Intralipid 20% IV 50 mls/hr [id number] AGUSTIN Administration Lactated Ringer's 1,000 mls @ 100 mls/hr 04/11/17 10:02 04/13/17 02:08 Lactated Ringer's IV Not Given .Q10H AGUSTIN Piperacillin Sod/Tazobactam Sod 2.25 gm in 50 mls @ 100 mls/hr 04/12/17 18:00 04/13/17 02:08 Zosyn 2.25 Gm Iv Premix IVPB 100 mls/hr Q8H AGUSTIN Administration Sodium Chloride 40 meq/ 1,032.1552 mls @ 42 mls/hr 04/12/17 18:00 04/12/17 18 :23 Magnesium Sulfate 6 meq/ IV 04/13/17 17:59 42 mls/hr Calcium Gluconate 4.5 meq/ .Q24H AGUSTIN Administration Chromium/Copper/Manganese/Zinc 1 ml/ Multivitamins/Vitamin C 10 ml/ Amino Acids Pantoprazole Sodium 80 mg/ 100 mls @ 10 mls/hr 04/12/17 14:30 04/13/17 00:14 Sodium Chloride IVPB 04/14/17 14:31 10 mls/hr .Q10H AGUSTIN Administration 8 MG/HR Lorazepam 0.5 mg 04/01/17 16:08 04/13/17 02:01 Ativan IVP 0.5 mg Q3H PRN Administration Anxiety Metoclopramide HCl 10 mg 04/03/17 22:00 04/12/17 21:23 Reglan IVP 10 mg Q12 AGUSTIN Administration Ondansetron HCl 4 mg 03/27/17 23:45 04/11/17 21:39 Zofran Inj IVP 4 mg Q6H PRN Administration Nausea/Vomiting Pantoprazole Sodium 40 mg 04/02/17 10:00 04/12/17 14:30 Protonix Inj IVP Not Given DAILY AGUSTIN Saccharomyces Boulardii 250 mg 04/08/17 18:00 04/12/17 18:08 Florastor PO Not Given BID AGUSTIN Thiamine HCl 100 mg 04/08/17 12:30 04/12/17 10:16 Vitamin B1 Tab PO 100 mg DAILY AGUSTIN Administration - Patient Studies Lab Studies: Microbiology Studies 04/08/17 11:47 Blood Culture - Preliminary Blood-Venous NO GROWTH AFTER 4 DAYS 04/08/17 11:47 Blood Culture - Preliminary Blood-Venous NO GROWTH AFTER 4 DAYS Lab Studies 01/03/18 01/03/18 01/03/18 Range/Units 06:37 06:37 06:37 WBC 18.6 H D (4.8-10.8) K/uL RBC 1.33 L (3.80-5.20) Mil/uL Hgb 4.1 L* D (11.0-16.0) g/dL Hct 11.1 L (34.0-47.0) % MCV 82.9 (81.0-99.0) fL MCH 30.4 (27.0-31.0) pg MCHC 36.6 (33.0-37.0) g/dL RDW 13.5 (11.5-14.5) % Plt Count 367 D (130-400) K/uL MPV 7.8 (7.2-11.7) fL Neut % (Auto) 80.1 H (50.0-75.0) % Lymph % (Auto) 8.8 L (20.0-40.0) % [place] % (Auto) 10.0 (0.0-10.0) % Eos % (Auto) 0.8 (0.0-4.0) % Baso % (Auto) 0.3 (0.0-2.0) % Neut # 14.9 H (1.8-7.0) K/uL Lymph # 1.6 (1.0-4.3) K/uL [place] # 1.9 H (0.0-0.8) K/uL Eos # 0.2 (0.0-0.7) K/uL Baso # 0.1 (0.0-0.2) K/uL Neutrophils % (Manual) (50-75) % Band Neutrophils % (0-2) % Lymphocytes % (Manual) (20-40) % Monocytes % (Manual) (0-10) % Eosinophils % (Manual) (0-4) % Platelet Estimate (NORMAL) Large Platelets Hypochromasia (manual) Poikilocytosis (manual Anisocytosis (manual) Microcytosis (manual) Target Cells Tear Drop Cells Ovalocytes [place] Cells PT 15.8 H (9.7-12.2) SECONDS INR 1.4 Sodium 132 (132-148) mmol/L Potassium 4.3 (3.6-5.2) mmol/L Chloride 101 (98-107) mmol/L Carbon Dioxide 20 L (22-30) mmol/L Anion Gap 15 (10-20) BUN 46 H (7-17) mg/dL Creatinine 5.8 H (0.7-1.2) mg/dL Est GFR ( Amer) 10 Est GFR (Non-Af Amer) 8 POC Glucose (mg/dL) (65-110) mg/dL Random Glucose 128 H (65-105) mg/dL Calcium 7.4 L (8.6-10.4) mg/dl Total Bilirubin 0.5 (0.2-1.3) mg/dL AST 20 (14-36) U/L ALT 21 (9-52) U/L Alkaline Phosphatase 90 (38-126) U/L Total Protein 4.7 L (6.3-8.3) g/dL Albumin 2.4 L D (3.5-5.0) g/dL Globulin 2.3 (2.2-3.9) gm/dL Albumin/Globulin Ratio 1.0 (1.0-2.1) TSH 3rd Generation 0.46 (0.46-4.68) mIU/L Hep Bs Antigen (NEGATIVE) Hep Bs Antibody (NEGATIVE) Hep B Core IgM Ab (NEGATIVE) Mycoplasma pneumon IgM (<770) U/mL Blood Type Antibody Screen 04/13/17 04/12/17 04/12/17 Range/Units 06:17 23:48 17:48 WBC (4.8-10.8) K/uL RBC (3.80-5.20) Mil/uL Hgb (11.0-16.0) g/dL Hct (34.0-47.0) % MCV (81.0-99.0) fL MCH (27.0-31.0) pg MCHC (33.0-37.0) g/dL RDW (11.5-14.5) % Plt Count (130-400) K/uL MPV (7.2-11.7) fL Neut % (Auto) (50.0-75.0) % Lymph % (Auto) (20.0-40.0) % [place] % (Auto) (0.0-10.0) % Eos % (Auto) (0.0-4.0) % Baso % (Auto) (0.0-2.0) % Neut # (1.8-7.0) K/uL Lymph # (1.0-4.3) K/uL [place] # (0.0-0.8) K/uL Eos # (0.0-0.7) K/uL Baso # (0.0-0.2) K/uL Neutrophils % (Manual) (50-75) % Band Neutrophils % (0-2) % Lymphocytes % (Manual) (20-40) % Monocytes % (Manual) (0-10) % Eosinophils % (Manual) (0-4) % Platelet Estimate (NORMAL) Large Platelets Hypochromasia (manual) Poikilocytosis (manual Anisocytosis (manual) Microcytosis (manual) Target Cells Tear Drop Cells Ovalocytes [place] Cells PT (9.7-12.2) SECONDS INR Sodium (132-148) mmol/L Potassium (3.6-5.2) mmol/L Chloride (98-107) mmol/L Carbon Dioxide (22-30) mmol/L Anion Gap (10-20) BUN (7-17) mg/dL Creatinine (0.7-1.2) mg/dL Est GFR ( Amer) Est GFR (Non-Af Amer) POC Glucose (mg/dL) 135 H 101 94 (65-110) mg/dL Random Glucose (65-105) mg/dL Calcium (8.6-10.4) mg/dl Total Bilirubin (0.2-1.3) mg/dL AST (14-36) U/L ALT (9-52) U/L Alkaline Phosphatase (38-126) U/L Total Protein (6.3-8.3) g/dL Albumin (3.5-5.0) g/dL Globulin (2.2-3.9) gm/dL Albumin/Globulin Ratio (1.0-2.1) TSH 3rd Generation (0.46-4.68) mIU/L Hep Bs Antigen (NEGATIVE) Hep Bs Antibody (NEGATIVE) Hep B Core IgM Ab (NEGATIVE) Mycoplasma pneumon IgM (<770) U/mL Blood Type Antibody Screen 04/12/17 04/12/17 04/12/17 Range/Units 16:20 16:20 11:21 WBC 12.3 H (4.8-10.8) K/uL RBC 2.73 L (3.80-5.20) Mil/uL Hgb 7.4 L (11.0-16.0) g/dL Hct 22.4 L (34.0-47.0) % MCV 82.0 (81.0-99.0) fL MCH 27.0 (27.0-31.0) pg MCHC 32.9 L (33.0-37.0) g/dL RDW 13.6 (11.5-14.5) % Plt Count 596 H (130-400) K/uL MPV 7.1 L (7.2-11.7) fL Neut % (Auto) 76.3 H (50.0-75.0) % Lymph % (Auto) 9.1 L (20.0-40.0) % [place] % (Auto) 11.7 H (0.0-10.0) % Eos % (Auto) 2.7 (0.0-4.0) % Baso % (Auto) 0.2 (0.0-2.0) % Neut # 9.4 H (1.8-7.0) K/uL Lymph # 1.1 (1.0-4.3) K/uL [place] # 1.4 H (0.0-0.8) K/uL Eos # 0.3 (0.0-0.7) K/uL Baso # 0.0 (0.0-0.2) K/uL Neutrophils % (Manual) 79 H (50-75) % Band Neutrophils % 1 (0-2) % Lymphocytes % (Manual) 9 L (20-40) % Monocytes % (Manual) 8 (0-10) % Eosinophils % (Manual) 3 (0-4) % Platelet Estimate Increased H (NORMAL) Large Platelets Present Hypochromasia (manual) Moderate Poikilocytosis (manual Slight Anisocytosis (manual) Slight Microcytosis (manual) Slight Target Cells Slight Tear Drop Cells Slight Ovalocytes Slight [place] Cells Slight PT (9.7-12.2) SECONDS INR Sodium (132-148) mmol/L Potassium (3.6-5.2) mmol/L Chloride (98-107) mmol/L Carbon Dioxide (22-30) mmol/L Anion Gap (10-20) BUN (7-17) mg/dL Creatinine (0.7-1.2) mg/dL Est GFR ( Amer) Est GFR (Non-Af Amer) POC Glucose (mg/dL) 80 (65-110) mg/dL Random Glucose (65-105) mg/dL Calcium (8.6-10.4) mg/dl Total Bilirubin (0.2-1.3) mg/dL AST (14-36) U/L ALT (9-52) U/L Alkaline Phosphatase (38-126) U/L Total Protein (6.3-8.3) g/dL Albumin (3.5-5.0) g/dL Globulin (2.2-3.9) gm/dL Albumin/Globulin Ratio (1.0-2.1) TSH 3rd Generation (0.46-4.68) mIU/L Hep Bs Antigen (NEGATIVE) Hep Bs Antibody (NEGATIVE) Hep B Core IgM Ab (NEGATIVE) Mycoplasma pneumon IgM (<770) U/mL Blood Type O POSITIVE Antibody Screen Negative 04/12/17 04/11/17 04/11/17 Range/Units 08:41 18:01 18:01 WBC (4.8-10.8) K/uL RBC (3.80-5.20) Mil/uL Hgb (11.0-16.0) g/dL Hct (34.0-47.0) % MCV (81.0-99.0) fL MCH (27.0-31.0) pg MCHC (33.0-37.0) g/dL RDW (11.5-14.5) % Plt Count (130-400) K/uL MPV (7.2-11.7) fL Neut % (Auto) (50.0-75.0) % Lymph % (Auto) (20.0-40.0) % [place] % (Auto) (0.0-10.0) % Eos % (Auto) (0.0-4.0) % Baso % (Auto) (0.0-2.0) % Neut # (1.8-7.0) K/uL Lymph # (1.0-4.3) K/uL [place] # (0.0-0.8) K/uL Eos # (0.0-0.7) K/uL Baso # (0.0-0.2) K/uL Neutrophils % (Manual) (50-75) % Band Neutrophils % (0-2) % Lymphocytes % (Manual) (20-40) % Monocytes % (Manual) (0-10) % Eosinophils % (Manual) (0-4) % Platelet Estimate (NORMAL) Large Platelets Hypochromasia (manual) Poikilocytosis (manual Anisocytosis (manual) Microcytosis (manual) Target Cells Tear Drop Cells Ovalocytes [place] Cells PT 14.1 H (9.7-12.2) SECONDS INR 1.3 Sodium (132-148) mmol/L Potassium (3.6-5.2) mmol/L Chloride (98-107) mmol/L Carbon Dioxide (22-30) mmol/L Anion Gap (10-20) BUN (7-17) mg/dL Creatinine (0.7-1.2) mg/dL Est GFR ( Amer) Est GFR (Non-Af Amer) POC Glucose (mg/dL) (65-110) mg/dL Random Glucose (65-105) mg/dL Calcium (8.6-10.4) mg/dl Total Bilirubin (0.2-1.3) mg/dL AST (14-36) U/L ALT (9-52) U/L Alkaline Phosphatase (38-126) U/L Total Protein (6.3-8.3) g/dL Albumin (3.5-5.0) g/dL Globulin (2.2-3.9) gm/dL Albumin/Globulin Ratio (1.0-2.1) TSH 3rd Generation (0.46-4.68) mIU/L Hep Bs Antigen Negative (NEGATIVE) Hep Bs Antibody Positive (NEGATIVE) Hep B Core IgM Ab Negative (NEGATIVE) Mycoplasma pneumon IgM (<770) U/mL Blood Type Antibody Screen 04/08/17 Range/Units 12:45 WBC (4.8-10.8) K/uL RBC (3.80-5.20) Mil/uL Hgb (11.0-16.0) g/dL Hct (34.0-47.0) % MCV (81.0-99.0) fL MCH (27.0-31.0) pg MCHC (33.0-37.0) g/dL RDW (11.5-14.5) % Plt Count (130-400) K/uL MPV (7.2-11.7) fL Neut % (Auto) (50.0-75.0) % Lymph % (Auto) (20.0-40.0) % [place] % (Auto) (0.0-10.0) % Eos % (Auto) (0.0-4.0) % Baso % (Auto) (0.0-2.0) % Neut # (1.8-7.0) K/uL Lymph # (1.0-4.3) K/uL [place] # (0.0-0.8) K/uL Eos # (0.0-0.7) K/uL Baso # (0.0-0.2) K/uL Neutrophils % (Manual) (50-75) % Band Neutrophils % (0-2) % Lymphocytes % (Manual) (20-40) % Monocytes % (Manual) (0-10) % Eosinophils % (Manual) (0-4) % Platelet Estimate (NORMAL) Large Platelets Hypochromasia (manual) Poikilocytosis (manual Anisocytosis (manual) Microcytosis (manual) Target Cells Tear Drop Cells Ovalocytes [place] Cells PT (9.7-12.2) SECONDS INR Sodium (132-148) mmol/L Potassium (3.6-5.2) mmol/L Chloride (98-107) mmol/L Carbon Dioxide (22-30) mmol/L Anion Gap (10-20) BUN (7-17) mg/dL Creatinine (0.7-1.2) mg/dL Est GFR ( Amer) Est GFR (Non-Af Amer) POC Glucose (mg/dL) (65-110) mg/dL Random Glucose (65-105) mg/dL Calcium (8.6-10.4) mg/dl Total Bilirubin (0.2-1.3) mg/dL AST (14-36) U/L ALT (9-52) U/L Alkaline Phosphatase (38-126) U/L Total Protein (6.3-8.3) g/dL Albumin (3.5-5.0) g/dL Globulin (2.2-3.9) gm/dL Albumin/Globulin Ratio (1.0-2.1) TSH 3rd Generation (0.46-4.68) mIU/L Hep Bs Antigen (NEGATIVE) Hep Bs Antibody (NEGATIVE) Hep B Core IgM Ab (NEGATIVE) Mycoplasma pneumon IgM 96 (<770) U/mL Blood Type Antibody Screen Laboratory Results - last 24 hr 04/08/17 04/11/17 04/11/17 12:45 18:01 18:01 WBC RBC Hgb Hct MCV MCH MCHC RDW Plt Count MPV Neut % (Auto) Lymph % (Auto) [place] % (Auto) Eos % (Auto) Baso % (Auto) Neut # Lymph # [place] # Eos # Baso # Neutrophils % (Manual) Band Neutrophils % Lymphocytes % (Manual) Monocytes % (Manual) Eosinophils % (Manual) Platelet Estimate Large Platelets Hypochromasia (manual) Poikilocytosis (manual Anisocytosis (manual) Microcytosis (manual) Target Cells Tear Drop Cells Ovalocytes [place] Cells PT INR Sodium Potassium Chloride Carbon Dioxide Anion Gap BUN Creatinine Est GFR ( Amer) Est GFR (Non-Af Amer) POC Glucose (mg/dL) Random Glucose Calcium Total Bilirubin AST ALT Alkaline Phosphatase Total Protein Albumin Globulin Albumin/Globulin Ratio TSH 3rd Generation Hep Bs Antigen Negative Hep Bs Antibody Positive Hep B Core IgM Ab Negative Mycoplasma pneumon IgM 96 Blood Type Antibody Screen 04/12/17 04/12/17 04/12/17 08:41 11:21 16:20 WBC 12.3 H RBC 2.73 L Hgb 7.4 L Hct 22.4 L MCV 82.0 MCH 27.0 MCHC 32.9 L RDW 13.6 Plt Count 596 H MPV 7.1 L Neut % (Auto) 76.3 H Lymph % (Auto) 9.1 L [place] % (Auto) 11.7 H Eos % (Auto) 2.7 Baso % (Auto) 0.2 Neut # 9.4 H Lymph # 1.1 [place] # 1.4 H Eos # 0.3 Baso # 0.0 Neutrophils % (Manual) 79 H Band Neutrophils % 1 Lymphocytes % (Manual) 9 L Monocytes % (Manual) 8 Eosinophils % (Manual) 3 Platelet Estimate Increased H Large Platelets Present Hypochromasia (manual) Moderate Poikilocytosis (manual Slight Anisocytosis (manual) Slight Microcytosis (manual) Slight Target Cells Slight Tear Drop Cells Slight Ovalocytes Slight [place] Cells Slight PT 14.1 H INR 1.3 Sodium Potassium Chloride Carbon Dioxide Anion Gap BUN Creatinine Est GFR ( Amer) Est GFR (Non-Af Amer) POC Glucose (mg/dL) 80 Random Glucose Calcium Total Bilirubin AST ALT Alkaline Phosphatase Total Protein Albumin Globulin Albumin/Globulin Ratio TSH 3rd Generation Hep Bs Antigen Hep Bs Antibody Hep B Core IgM Ab Mycoplasma pneumon IgM Blood Type Antibody Screen 04/12/17 04/12/17 04/12/17 16:20 17:48 23:48 WBC RBC Hgb Hct MCV MCH MCHC RDW Plt Count MPV Neut % (Auto) Lymph % (Auto) [place] % (Auto) Eos % (Auto) Baso % (Auto) Neut # Lymph # [place] # Eos # Baso # Neutrophils % (Manual) Band Neutrophils % Lymphocytes % (Manual) Monocytes % (Manual) Eosinophils % (Manual) Platelet Estimate Large Platelets Hypochromasia (manual) Poikilocytosis (manual Anisocytosis (manual) Microcytosis (manual) Target Cells Tear Drop Cells Ovalocytes [place] Cells PT INR Sodium Potassium Chloride Carbon Dioxide Anion Gap BUN Creatinine Est GFR ( Amer) Est GFR (Non-Af Amer) POC Glucose (mg/dL) 94 101 Random Glucose Calcium Total Bilirubin AST ALT Alkaline Phosphatase Total Protein Albumin Globulin Albumin/Globulin Ratio TSH 3rd Generation Hep Bs Antigen Hep Bs Antibody Hep B Core IgM Ab Mycoplasma pneumon IgM Blood Type O POSITIVE Antibody Screen Negative 04/13/17 04/13/17 04/13/17 06:17 06:37 06:37 WBC 18.6 H D RBC 1.33 L Hgb 4.1 L* D Hct 11.1 L MCV 82.9 MCH 30.4 MCHC 36.6 RDW 13.5 Plt Count 367 D MPV 7.8 Neut % (Auto) 80.1 H Lymph % (Auto) 8.8 L [place] % (Auto) 10.0 Eos % (Auto) 0.8 Baso % (Auto) 0.3 Neut # 14.9 H Lymph # 1.6 [place] # 1.9 H Eos # 0.2 Baso # 0.1 Neutrophils % (Manual) Band Neutrophils % Lymphocytes % (Manual) Monocytes % (Manual) Eosinophils % (Manual) Platelet Estimate Large Platelets Hypochromasia (manual) Poikilocytosis (manual Anisocytosis (manual) Microcytosis (manual) Target Cells Tear Drop Cells Ovalocytes [place] Cells PT INR Sodium 132 Potassium 4.3 Chloride 101 Carbon Dioxide 20 L Anion Gap 15 BUN 46 H Creatinine 5.8 H Est GFR ( Amer) 10 Est GFR (Non-Af Amer) 8 POC Glucose (mg/dL) 135 H Random Glucose 128 H Calcium 7.4 L Total Bilirubin 0.5 AST 20 ALT 21 Alkaline Phosphatase 90 Total Protein 4.7 L Albumin 2.4 L D Globulin 2.3 Albumin/Globulin Ratio 1.0 TSH 3rd Generation 0.46 Hep Bs Antigen Hep Bs Antibody Hep B Core IgM Ab Mycoplasma pneumon IgM Blood Type Antibody Screen 04/13/17 06:37 WBC RBC Hgb Hct MCV MCH MCHC RDW Plt Count MPV Neut % (Auto) Lymph % (Auto) [place] % (Auto) Eos % (Auto) Baso % (Auto) Neut # Lymph # [place] # Eos # Baso # Neutrophils % (Manual) Band Neutrophils % Lymphocytes % (Manual) Monocytes % (Manual) Eosinophils % (Manual) Platelet Estimate Large Platelets Hypochromasia (manual) Poikilocytosis (manual Anisocytosis (manual) Microcytosis (manual) Target Cells Tear Drop Cells Ovalocytes [place] Cells PT 15.8 H INR 1.4 Sodium Potassium Chloride Carbon Dioxide Anion Gap BUN Creatinine Est GFR ( Amer) Est GFR (Non-Af Amer) POC Glucose (mg/dL) Random Glucose Calcium Total Bilirubin AST ALT Alkaline Phosphatase Total Protein Albumin Globulin Albumin/Globulin Ratio TSH 3rd Generation Hep Bs Antigen Hep Bs Antibody Hep B Core IgM Ab Mycoplasma pneumon IgM Blood Type Antibody Screen Fingerstick Blood Sugar Results: 101 Critical Care Progress Note - Nutrition Nutrition: Nutrition Category Date Time Status NPO Diet [DIET] Diets 04/08/17 Dinner Active Assessment/Plan - Assessment and Plan (Free Text) Assessment: 36F admitted with diarrhea,tachycardia,elevated WBC count ,lipase and lactic acid, 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 Neuro: hx of Schizophrenia, patient has mental retardation and can speak some words based on observation Altered mental status 04/07 Dr. Bedoya consulted Psych Consult: Dr. Mccloud Pain: 0.5 mg IVP Q4H PRN Sedation: 1mg Haldol IVP Q12H PRN 0.5mg Ativan Q3H PRN Nausea: Zofran 4mg IVP q6h PRN Reglan 10 mg IVP q4h PRN Psych: Psych Consult Dr. Mccloud: f/u 03/30 EKG to evaluate QTc Quetiapine (Seroquel) 200mg POBID, held d/t NGT on IWS, held awaiting Dr. Mccloud Recommendations Escitalopram (Lexapro) 10mg PO QD, held d/t NGT on IWS, held awaiting Dr. Mccloud Recommendations Cardio: Tachycardia 03/27 EKG Sinus tachycardia 138 bpm 03/30 EKG QTc 434, Sinus tachycardia at 153 bpm Diltiazem 125mg Q24hr @ 5mg/hr 04/08 Pulm: Aspiration pneumonia s/p EGD with intubation then extubation 03/27 AB.22, lactate 9.7 04/08 AB.50, CO2 24, O2 148, HCO3 22.9, lactate 1.0 03/27 CXR in infiltrates, no active pulmonary disease 03/30 CXR: poor inspiratory effort, areas suggestive of aspiration pneumonia 04/02: CT abdomen/pelvis/chest: pleural effusions, bilateral perihilar consolidations possibly due to multifocal pneumonia vs. atelectasis 04/04: CXR: Left lower lobe atelectasis/pneumonia and small left pleural effusion. Stable position of nasogastric tube and left PICC line. Endo: 03/28 Hemoglobin A1c 5.3 GI: Currently on PPN 03/28 Lipase 8456 03/29 Lipase 322 03/30 Lipase 64 03/30 GOBT positive 03/31 Pathology for Antrum biopsy from 03/29 EGD current biopsy negative for H pylori 04/01 f/u Dr. Harmon for repeat EGD., NGT 800 03/27 21:42 CT abdomen/pelvis with IV contrast: gastric distention 32cm and distention of the first and third and second portion of duodenum. Transition and complete decompression of third portion of duodenum. pancreas unremarkable, spleen unremarkable, partially contracted gallbladder. duodenal obstruction v delayed emptying v gastroparesis. Fluid distention of distal esophagus 3.3cm representing gastric emptying v gastroesophageal reflux. 03/27 CT abdomen/pelvis with IV contrast: significantly dilated stomach with retained food and fluid. significantly diminished prior to earlier CT 03/28. No free intraperitoneal gas identified. contrast noted in Gallbladder. 03/28 CT Chest/Abdomen/Pelvis: Left greater than right pleural effusion, bilateral perihilar consolidation. right more than left upper lobes and left more than right lower lobes. lingular consolidation representing multifocal pneumonia v. atelectasis versus mucous lugging and/or aspiration. interval worsening compared to prior exam 04/02 CT chest/abdomen/pelvis shows gastric distention 27cm, possible gastric pneumatosis, NGT at fundus with contrast fluid and gas level peripancreatic infiltration. gastric distension measuring 27 cm with possible gastric pneumatosis. intraperitoneal pelvic fluid with prominent surrounding peritoneal lining. Loculated ascites with peritoneal enhancement above spleen in retrogastric region. Lipase 320. 04/08 CT Chest/Abdomen/Pelvis: resolving acute pancreatitis, no residual peripancreatic fluid. 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 Distention of stomach due to gastric ileus. Ascites and loculated fluid posterior to the gastric fundus and cephalad to the spleen. Focal enteritis of proximal jejunum with mural thickening. Small left pleural effusion with left lower lobe compressive atelectasis. 03/[address] connected to suction. 03/28 NGT OP since insertion: 2600cc 03/29 2350 03/30 NGT 1160 03/31 NGT 630 04/01 NGT 800 04/02 NGT 100 04/04 550, NGT removed by patient, Flexiseal removed by patient f/u Strict I/Os 04/10 NGT 3300 04/11 NGT 1200 04/12 NGT 700, with about 100cc of bright red sanguinous blood, with bilious component. 04/12 NGT off suction, clamped, patient continues to have red output to gravity. General Surgery Consult: Dr. Woodruff 03/[address] Harmon to have EGD today. 03/[address] Harmon, place patient on Reglan to help with motility. 03/30 Abdominal xray/obstructive series: minimal distention of stomach compared to previous imaging studies 03/31 Pathology for Antrum biopsy from 03/29 EGD current biopsy negative for H pylori 04/01 f/u Dr. Harmon for repeat EGD. Morphine 2 mg IV q4h PRN moderate pain Morphine 4 mg IV q4h PRN severe pain Zofran 4mg IVP q6h PRN Reglan 10 mg IVP q4h PRN Renal: 03/27 UA: proteinuria urine output since insertion 360 average hourly output 60cc/hr f/u Strict I/Os 03/31 Potassium Phosphorus 15mmole @63cc/hr : 03/27 UA: hazy, specific gravity >1.060, 3+ urine protein, Urine bacteria, Urine Yeast Ceftriaxone 1gm IVPB QD 03/30 Urine Cx negative Heme: GI bleed H/H: 03/27 14.6/44.7 03/28 12.9/38.5 03/28 FOBT positive 03/29 11.2/33.0 03/30 GOBT positive 03/30 9.5/27.7 03/31 9.4/27.5 04/01 8.9/25.8 04/02 9.1/26.7 04/04 9.9/28.8 04/05 9.4/28.4 04/09/1704/10 9.6/29.9 04/11 7.8/22.6 04/12 7.0/20.4 04/13 4.1/11.1 MSK: Patient can walk per sister, but is dizzy so hasn't walked PT/OT eval and treat when stable ID: Sepsis Code sepsis 03/28 02:20 03/28 lactate 9.7 03/28 lactate 01:05 9.2 03/28 lactate 06:15 1.3 03/27 WBC 26.7 03/28 WBC 30.2 03/29 WBC 21.3 03/30 WBC 16.1 03/31 WBC 15.7 04/02 WBC 16.8 04/03 WBC 18.4 04/04 WBC 18.6 04/05 WBC 20.1 04/06 WBC 23.2 04/08 08:19 WBC 36.1 04/08 19:10 WBC 37.4 04/09 06:24 WBC 33.3 04/10 06:52 WBC 20.4 Code sepsis 03/28 02:20 03/30 blood Culture x 2, negative 03/30 MRSA screen negative 03/30 Urine Cx negative 04/02 Blood culture x2 negative 03/29 Neutrophils 75, Bands 9 03/30 Neutrophils 83, Bands 1 04/02 Neutrophils 83 04/04 Neutrophils 73.8 04/05 Neutrophils 74.4 Code sepsis called again today 04/08. Patient was febrile (102 rectally and tachycardic ~140s) BP was 100/70. Tovar inserted to monitor urine output (nurse to clean TID with betadine) WBC 36.1 elevating from 20s. 4 bands, platelets 707 Prophylaxis: GI: Protonix Drip Zofran 4mg IVP Q6H PRN Nausea Tylenol 325mg SD Q4H PRN Fluids: LR @100cc/hr Diet: NPO 04/04 NGT removed by patient, Flexiseal removed by patient, Left PICC removed by patient. 04/05 Patient downgraded to Regular Bed 04/11 Patient has a femoral dialysis catheter 04/12 GI consulted for GI bleed, repeat EGD 04/13 patient to have dialysis today with 2 u PRBC transfusion discussed with Dr. Apoorva Smith DO PGY1 - Date & Time Date: 04/13/17 Time: 07:53 <Jose Hernandez S - Last Filed: 04/13/17 16:54> CCU Objective - Vital Signs / Intake & Output Vital Signs (Last 4 hours): Vital Signs Pulse Resp BP Pulse Ox 04/13/17 15:09 115/74 04/13/17 15:07 127 H 16 98 04/13/17 15:06 128 H 27 H 117/75 98 04/13/17 15:03 127 H 22 114/77 99 04/13/17 15:00 130 H 26 H 114/73 98 04/13/17 14:57 127 H 24 114/70 97 04/13/17 14:54 131 H 23 110/71 98 04/13/17 14:51 126 H 25 H 113/74 99 04/13/17 14:48 129 H 22 116/73 98 04/13/17 14:45 130 H 23 113/74 98 04/13/17 14:42 127 H 21 111/71 98 04/13/17 14:39 126 H 23 109/69 99 04/13/17 14:36 131 H 21 111/72 99 04/13/17 14:33 130 H 19 107/69 99 04/13/17 14:30 128 H 22 111/75 98 04/13/17 14:27 128 H 19 117/71 99 04/13/17 14:24 129 H 21 112/75 100 04/13/17 14:21 129 H 20 112/73 99 04/13/17 14:18 126 H 20 115/74 99 04/13/17 14:15 130 H 24 110/73 100 04/13/17 14:12 127 H 21 108/69 100 04/13/17 14:09 128 H 20 113/73 100 04/13/17 14:06 127 H 21 113/71 98 04/13/17 14:03 130 H 25 H 112/68 99 04/13/17 14:00 129 H 21 109/74 99 04/13/17 13:57 130 H 21 113/70 99 Intake and Output (Last 8hrs): Intake & Output 04/13/17 04/13/17 04/13/17 06:59 14:59 22:59 Intake Total 1533 2374 152 Output Total 100 255 10 Balance 1433 2119 142 Intake: IV 80 200 Intake, IV Amount 1453 1566 152 Right Distal Port Upper 35 0 0 arm Right Femoral 588 336 42 Right Medial Port Femoral 750 1150 100 Right Upper arm 80 80 10 Oral 0 0 0 Blood Product 608 Apheresis Rbc Cp2d As3 Lr 283 2nd Unit [id number] Red Blood Cells Cpd As1 325 Lr Unit [id number] Output: Gastric Amount 100 Right Nares 100 Urine 0 155 10 Urethral (Tovar) 0 155 10 Stool 100 0 Emesis 0 0 Other: # Bowel Movements 1 1 0 - Medications Active Medications: Active Medications Generic Name Dose Route Start Last Admin Trade Name Freq PRN Reason Stop Dose Admin Acetaminophen 325 mg 03/29/17 07:57 04/13/17 04:38 Tylenol 325 Mg Supp SD 325 mg Q4 PRN Administration Fever >100.4 F Ascorbic Acid 500 mg 04/08/17 12:30 04/13/17 09:50 Vitamin C 500 Mg Tab PO 500 mg DAILY AGUSTIN Administration Haloperidol Lactate 1 mg 03/29/17 18:47 04/12/17 22:21 Haldol IVP 1 mg BID PRN Administration Agitation Hydromorphone HCl 0.5 mg 04/10/17 23:09 04/13/17 15:55 Dilaudid IVP 0.5 mg Q4H PRN Administration Pain, severe (8-10) Vancomycin/Sodium Chloride 1 gm in 200 mls @ 133.333 mls/hr 04/08/17 18:30 18:55 Vancomycin 1 Gm/Ns 200 Ml IVPB 04/13/17 18:31 133.333 mls/hr Q24H AGUSTIN Administration Lactated Ringer's 1,000 mls @ 100 mls/hr 04/11/17 10:02 04/13/17 02:08 Lactated Ringer's IV Not Given .Q10H AGUSTIN Piperacillin Sod/Tazobactam Sod 2.25 gm in 50 mls @ 100 mls/hr 04/12/17 18:00 04/13/17 12:45 Zosyn 2.25 Gm Iv Premix IVPB 100 mls/hr Q8H AGUSTIN Administration Sodium Chloride 40 meq/ 1,032.1552 mls @ 42 mls/hr 04/12/17 18:00 04/12/17 18 :23 Magnesium Sulfate 6 meq/ IV 04/13/17 17:59 42 mls/hr Calcium Gluconate 4.5 meq/ .Q24H AGUSTIN Administration Chromium/Copper/Manganese/Zinc 1 ml/ Multivitamins/Vitamin C 10 ml/ Amino Acids Pantoprazole Sodium 80 mg/ 100 mls @ 10 mls/hr 04/12/17 14:30 04/13/17 10:17 Sodium Chloride IVPB 04/14/17 14:31 10 mls/hr .Q10H AGUSTIN Administration 8 MG/HR Sodium Chloride 40 meq/ 1,032.1552 mls @ 42 mls/hr 04/13/17 18:00 Magnesium Sulfate 6 meq/ IV 04/14/17 17:59 Calcium Gluconate 4.5 meq/ .Q24H AGUSTIN Chromium/Copper/Manganese/Zinc 1 ml/ Multivitamins/Vitamin C 10 ml/ Amino Acids Lorazepam 0.5 mg 04/01/17 16:08 04/13/17 02:01 Ativan IVP 0.5 mg Q3H PRN Administration Anxiety Metoclopramide HCl 5 mg 04/13/17 18:00 Reglan IVP Q6 AGUSTIN Ondansetron HCl 4 mg 03/27/17 23:45 04/11/17 21:39 Zofran Inj IVP 4 mg Q6H PRN Administration Nausea/Vomiting Saccharomyces Boulardii 250 mg 04/08/17 18:00 04/13/17 09:50 Florastor PO 250 mg BID AGUSTIN Administration Thiamine HCl 100 mg 04/08/17 12:30 04/13/17 09:50 Vitamin B1 Tab PO 100 mg DAILY AGUSTIN Administration - Patient Studies Lab Studies: Microbiology Studies 04/08/17 11:47 Blood Culture - Final Blood-Venous NO GROWTH AFTER 5 DAYS Gram Stain - Final TEST NOT PERFORMED 04/08/17 11:47 Blood Culture - Final Blood-Venous NO GROWTH AFTER 5 DAYS Gram Stain - Final TEST NOT PERFORMED Lab Studies 04/13/17 04/13/17 04/13/17 Range/Units 11:36 06:37 06:37 WBC 18.6 H D (4.8-10.8) K/uL RBC 1.33 L (3.80-5.20) Mil/uL Hgb 4.1 L* D (11.0-16.0) g/dL Hct 11.1 L (34.0-47.0) % MCV 82.9 (81.0-99.0) fL MCH 30.4 (27.0-31.0) pg MCHC 36.6 (33.0-37.0) g/dL RDW 13.5 (11.5-14.5) % Plt Count 367 D (130-400) K/uL MPV 7.8 (7.2-11.7) fL Neut % (Auto) 80.1 H (50.0-75.0) % Lymph % (Auto) 8.8 L (20.0-40.0) % [place] % (Auto) 10.0 (0.0-10.0) % Eos % (Auto) 0.8 (0.0-4.0) % Baso % (Auto) 0.3 (0.0-2.0) % Neut # 14.9 H (1.8-7.0) K/uL Lymph # 1.6 (1.0-4.3) K/uL [place] # 1.9 H (0.0-0.8) K/uL Eos # 0.2 (0.0-0.7) K/uL Baso # 0.1 (0.0-0.2) K/uL Neutrophils % (Manual) 65 (50-75) % Band Neutrophils % 8 H (0-2) % Lymphocytes % (Manual) 13 L (20-40) % Monocytes % (Manual) 13 H (0-10) % Eosinophils % (Manual) 1 (0-4) % Smudge Cells Present Platelet Estimate Normal (NORMAL) Large Platelets Present Hypochromasia (manual) Moderate Poikilocytosis (manual Slight Basophilic Stippling Slight Anisocytosis (manual) Slight Microcytosis (manual) Slight Target Cells Moderate Tear Drop Cells Ovalocytes Slight [place] Cells PT 15.8 H (9.7-12.2) SECONDS INR 1.4 Sodium (132-148) mmol/L Potassium (3.6-5.2) mmol/L Chloride (98-107) mmol/L Carbon Dioxide (22-30) mmol/L Anion Gap (10-20) BUN (7-17) mg/dL Creatinine (0.7-1.2) mg/dL Est GFR ( Amer) Est GFR (Non-Af Amer) POC Glucose (mg/dL) 104 (65-110) mg/dL Random Glucose (65-105) mg/dL Calcium (8.6-10.4) mg/dl Total Bilirubin (0.2-1.3) mg/dL AST (14-36) U/L ALT (9-52) U/L Alkaline Phosphatase (38-126) U/L Total Protein (6.3-8.3) g/dL Albumin (3.5-5.0) g/dL Globulin (2.2-3.9) gm/dL Albumin/Globulin Ratio (1.0-2.1) TSH 3rd Generation (0.46-4.68) mIU/L Mycoplasma pneumon IgM (<770) U/mL Blood Type Antibody Screen 04/13/17 04/13/17 04/12/17 Range/Units 06:37 06:17 23:48 WBC (4.8-10.8) K/uL RBC (3.80-5.20) Mil/uL Hgb (11.0-16.0) g/dL Hct (34.0-47.0) % MCV (81.0-99.0) fL MCH (27.0-31.0) pg MCHC (33.0-37.0) g/dL RDW (11.5-14.5) % Plt Count (130-400) K/uL MPV (7.2-11.7) fL Neut % (Auto) (50.0-75.0) % Lymph % (Auto) (20.0-40.0) % [place] % (Auto) (0.0-10.0) % Eos % (Auto) (0.0-4.0) % Baso % (Auto) (0.0-2.0) % Neut # (1.8-7.0) K/uL Lymph # (1.0-4.3) K/uL [place] # (0.0-0.8) K/uL Eos # (0.0-0.7) K/uL Baso # (0.0-0.2) K/uL Neutrophils % (Manual) (50-75) % Band Neutrophils % (0-2) % Lymphocytes % (Manual) (20-40) % Monocytes % (Manual) (0-10) % Eosinophils % (Manual) (0-4) % Smudge Cells Platelet Estimate (NORMAL) Large Platelets Hypochromasia (manual) Poikilocytosis (manual Basophilic Stippling Anisocytosis (manual) Microcytosis (manual) Target Cells Tear Drop Cells Ovalocytes [place] Cells PT (9.7-12.2) SECONDS INR Sodium 132 (132-148) mmol/L Potassium 4.3 (3.6-5.2) mmol/L Chloride 101 (98-107) mmol/L Carbon Dioxide 20 L (22-30) mmol/L Anion Gap 15 (10-20) BUN 46 H (7-17) mg/dL Creatinine 5.8 H (0.7-1.2) mg/dL Est GFR ( Amer) 10 Est GFR (Non-Af Amer) 8 POC Glucose (mg/dL) 135 H 101 (65-110) mg/dL Random Glucose 128 H (65-105) mg/dL Calcium 7.4 L (8.6-10.4) mg/dl Total Bilirubin 0.5 (0.2-1.3) mg/dL AST 20 (14-36) U/L ALT 21 (9-52) U/L Alkaline Phosphatase 90 (38-126) U/L Total Protein 4.7 L (6.3-8.3) g/dL Albumin 2.4 L D (3.5-5.0) g/dL Globulin 2.3 (2.2-3.9) gm/dL Albumin/Globulin Ratio 1.0 (1.0-2.1) TSH 3rd Generation 0.46 (0.46-4.68) mIU/L Mycoplasma pneumon IgM (<770) U/mL Blood Type Antibody Screen 04/12/17 04/12/17 04/12/17 Range/Units 17:48 16:20 16:20 WBC (4.8-10.8) K/uL RBC (3.80-5.20) Mil/uL Hgb (11.0-16.0) g/dL Hct (34.0-47.0) % MCV (81.0-99.0) fL MCH (27.0-31.0) pg MCHC (33.0-37.0) g/dL RDW (11.5-14.5) % Plt Count (130-400) K/uL MPV (7.2-11.7) fL Neut % (Auto) (50.0-75.0) % Lymph % (Auto) (20.0-40.0) % [place] % (Auto) (0.0-10.0) % Eos % (Auto) (0.0-4.0) % Baso % (Auto) (0.0-2.0) % Neut # (1.8-7.0) K/uL Lymph # (1.0-4.3) K/uL [place] # (0.0-0.8) K/uL Eos # (0.0-0.7) K/uL Baso # (0.0-0.2) K/uL Neutrophils % (Manual) 79 H (50-75) % Band Neutrophils % 1 (0-2) % Lymphocytes % (Manual) 9 L (20-40) % Monocytes % (Manual) 8 (0-10) % Eosinophils % (Manual) 3 (0-4) % Smudge Cells Platelet Estimate Increased H (NORMAL) Large Platelets Present Hypochromasia (manual) Moderate Poikilocytosis (manual Slight Basophilic Stippling Anisocytosis (manual) Slight Microcytosis (manual) Slight Target Cells Slight Tear Drop Cells Slight Ovalocytes Slight [place] Cells Slight PT (9.7-12.2) SECONDS INR Sodium (132-148) mmol/L Potassium (3.6-5.2) mmol/L Chloride (98-107) mmol/L Carbon Dioxide (22-30) mmol/L Anion Gap (10-20) BUN (7-17) mg/dL Creatinine (0.7-1.2) mg/dL Est GFR ( Amer) Est GFR (Non-Af Amer) POC Glucose (mg/dL) 94 (65-110) mg/dL Random Glucose (65-105) mg/dL Calcium (8.6-10.4) mg/dl Total Bilirubin (0.2-1.3) mg/dL AST (14-36) U/L ALT (9-52) U/L Alkaline Phosphatase (38-126) U/L Total Protein (6.3-8.3) g/dL Albumin (3.5-5.0) g/dL Globulin (2.2-3.9) gm/dL Albumin/Globulin Ratio (1.0-2.1) TSH 3rd Generation (0.46-4.68) mIU/L Mycoplasma pneumon IgM (<770) U/mL Blood Type O POSITIVE Antibody Screen Negative 04/08/17 Range/Units 12:45 WBC (4.8-10.8) K/uL RBC (3.80-5.20) Mil/uL Hgb (11.0-16.0) g/dL Hct (34.0-47.0) % MCV (81.0-99.0) fL MCH (27.0-31.0) pg MCHC (33.0-37.0) g/dL RDW (11.5-14.5) % Plt Count (130-400) K/uL MPV (7.2-11.7) fL Neut % (Auto) (50.0-75.0) % Lymph % (Auto) (20.0-40.0) % [place] % (Auto) (0.0-10.0) % Eos % (Auto) (0.0-4.0) % Baso % (Auto) (0.0-2.0) % Neut # (1.8-7.0) K/uL Lymph # (1.0-4.3) K/uL [place] # (0.0-0.8) K/uL Eos # (0.0-0.7) K/uL Baso # (0.0-0.2) K/uL Neutrophils % (Manual) (50-75) % Band Neutrophils % (0-2) % Lymphocytes % (Manual) (20-40) % Monocytes % (Manual) (0-10) % Eosinophils % (Manual) (0-4) % Smudge Cells Platelet Estimate (NORMAL) Large Platelets Hypochromasia (manual) Poikilocytosis (manual Basophilic Stippling Anisocytosis (manual) Microcytosis (manual) Target Cells Tear Drop Cells Ovalocytes [place] Cells PT (9.7-12.2) SECONDS INR Sodium (132-148) mmol/L Potassium (3.6-5.2) mmol/L Chloride (98-107) mmol/L Carbon Dioxide (22-30) mmol/L Anion Gap (10-20) BUN (7-17) mg/dL Creatinine (0.7-1.2) mg/dL Est GFR ( Amer) Est GFR (Non-Af Amer) POC Glucose (mg/dL) (65-110) mg/dL Random Glucose (65-105) mg/dL Calcium (8.6-10.4) mg/dl Total Bilirubin (0.2-1.3) mg/dL AST (14-36) U/L ALT (9-52) U/L Alkaline Phosphatase (38-126) U/L Total Protein (6.3-8.3) g/dL Albumin (3.5-5.0) g/dL Globulin (2.2-3.9) gm/dL Albumin/Globulin Ratio (1.0-2.1) TSH 3rd Generation (0.46-4.68) mIU/L Mycoplasma pneumon IgM 96 (<770) U/mL Blood Type Antibody Screen Laboratory Results - last 24 hr 04/08/17 04/12/17 04/12/17 12:45 16:20 16:20 WBC RBC Hgb Hct MCV MCH MCHC RDW Plt Count MPV Neut % (Auto) Lymph % (Auto) [place] % (Auto) Eos % (Auto) Baso % (Auto) Neut # Lymph # [place] # Eos # Baso # Neutrophils % (Manual) 79 H Band Neutrophils % 1 Lymphocytes % (Manual) 9 L Monocytes % (Manual) 8 Eosinophils % (Manual) 3 Smudge Cells Platelet Estimate Increased H Large Platelets Present Hypochromasia (manual) Moderate Poikilocytosis (manual Slight Basophilic Stippling Anisocytosis (manual) Slight Microcytosis (manual) Slight Target Cells Slight Tear Drop Cells Slight Ovalocytes Slight [place] Cells Slight PT INR Sodium Potassium Chloride Carbon Dioxide Anion Gap BUN Creatinine Est GFR ( Amer) Est GFR (Non-Af Amer) POC Glucose (mg/dL) Random Glucose Calcium Total Bilirubin AST ALT Alkaline Phosphatase Total Protein Albumin Globulin Albumin/Globulin Ratio TSH 3rd Generation Mycoplasma pneumon IgM 96 Blood Type O POSITIVE Antibody Screen Negative 04/12/17 04/12/17 04/13/17 17:48 23:48 06:17 WBC RBC Hgb Hct MCV MCH MCHC RDW Plt Count MPV Neut % (Auto) Lymph % (Auto) [place] % (Auto) Eos % (Auto) Baso % (Auto) Neut # Lymph # [place] # Eos # Baso # Neutrophils % (Manual) Band Neutrophils % Lymphocytes % (Manual) Monocytes % (Manual) Eosinophils % (Manual) Smudge Cells Platelet Estimate Large Platelets Hypochromasia (manual) Poikilocytosis (manual Basophilic Stippling Anisocytosis (manual) Microcytosis (manual) Target Cells Tear Drop Cells Ovalocytes [place] Cells PT INR Sodium Potassium Chloride Carbon Dioxide Anion Gap BUN Creatinine Est GFR ( Amer) Est GFR (Non-Af Amer) POC Glucose (mg/dL) 94 101 135 H Random Glucose Calcium Total Bilirubin AST ALT Alkaline Phosphatase Total Protein Albumin Globulin Albumin/Globulin Ratio TSH 3rd Generation Mycoplasma pneumon IgM Blood Type Antibody Screen 04/13/17 04/13/17 04/13/17 06:37 06:37 06:37 WBC 18.6 H D RBC 1.33 L Hgb 4.1 L* D Hct 11.1 L MCV 82.9 MCH 30.4 MCHC 36.6 RDW 13.5 Plt Count 367 D MPV 7.8 Neut % (Auto) 80.1 H Lymph % (Auto) 8.8 L [place] % (Auto) 10.0 Eos % (Auto) 0.8 Baso % (Auto) 0.3 Neut # 14.9 H Lymph # 1.6 [place] # 1.9 H Eos # 0.2 Baso # 0.1 Neutrophils % (Manual) 65 Band Neutrophils % 8 H Lymphocytes % (Manual) 13 L Monocytes % (Manual) 13 H Eosinophils % (Manual) 1 Smudge Cells Present Platelet Estimate Normal Large Platelets Present Hypochromasia (manual) Moderate Poikilocytosis (manual Slight Basophilic Stippling Slight Anisocytosis (manual) Slight Microcytosis (manual) Slight Target Cells Moderate Tear Drop Cells Ovalocytes Slight [place] Cells PT 15.8 H INR 1.4 Sodium 132 Potassium 4.3 Chloride 101 Carbon Dioxide 20 L Anion Gap 15 BUN 46 H Creatinine 5.8 H Est GFR ( Amer) 10 Est GFR (Non-Af Amer) 8 POC Glucose (mg/dL) Random Glucose 128 H Calcium 7.4 L Total Bilirubin 0.5 AST 20 ALT 21 Alkaline Phosphatase 90 Total Protein 4.7 L Albumin 2.4 L D Globulin 2.3 Albumin/Globulin Ratio 1.0 TSH 3rd Generation 0.46 Mycoplasma pneumon IgM Blood Type Antibody Screen 04/13/17 11:36 WBC RBC Hgb Hct MCV MCH MCHC RDW Plt Count MPV Neut % (Auto) Lymph % (Auto) [place] % (Auto) Eos % (Auto) Baso % (Auto) Neut # Lymph # [place] # Eos # Baso # Neutrophils % (Manual) Band Neutrophils % Lymphocytes % (Manual) Monocytes % (Manual) Eosinophils % (Manual) Smudge Cells Platelet Estimate Large Platelets Hypochromasia (manual) Poikilocytosis (manual Basophilic Stippling Anisocytosis (manual) Microcytosis (manual) Target Cells Tear Drop Cells Ovalocytes [place] Cells PT INR Sodium Potassium Chloride Carbon Dioxide Anion Gap BUN Creatinine Est GFR ( Amer) Est GFR (Non-Af Amer) POC Glucose (mg/dL) 104 Random Glucose Calcium Total Bilirubin AST ALT Alkaline Phosphatase Total Protein Albumin Globulin Albumin/Globulin Ratio TSH 3rd Generation Mycoplasma pneumon IgM Blood Type Antibody Screen Critical Care Progress Note - Nutrition Nutrition: Nutrition Category Date Time Status NPO Diet [DIET] Diets 04/08/17 Dinner Active Assessment/Plan (1) Leucocytosis Current Visit: Yes Status: Acute Comment: etiology of leukocytosis is not clear CT of the abdomen and pelvis showed small left effusion and atelectasis, with distended stomach and collection of fluid behind the fundus. On antibiotics as per infectious diseas Abdomen very soft after NG tube was inserted and 2.5 L of straw-colored fluid removed. intra-abdominal pressure 2. Continue IV fluid Continue antibiotics Patient seen by surgery multiple times Follow-up GI recommendation IV sedation as needed correct electrolytes (2) Acute renal failure Current Visit: Yes Status: Acute (3) Gastric distention Current Visit: Yes Status: Acute (4) Mental retardation Current Visit: No Status: Acute Attending/Attestation - Attestation I have personally seen and examined this patient.: Yes I have fully participated in the care of the patient.: Yes I have reviewed all pertinent clinical information: Yes Notes (Text): 04/13/17 16:51 Patient seen and examined in the intensive care unit. Case discussed with house staff in the morning rounds. Status post hemodialysis and transfusion of 2 units packed RBCs Status post EGD with diffuse ulceration and possible Ischemia For CT angiogram of abdomen Start TPN follow-up CBC Continue Protonix drip
[2017-04-13] MEDS ORDERED: Sodium Chloride 0.9% 500 ML IV ONE (07:45)
[2017-04-13 08:45] LABS: BANDS 8 % (0-2); EOSINOPHIL 1 % (0-4); LYMPHOCYTE 13 % (20-40); MONOCYTE 13 % (0-10); NEUTROPHIL 65 % (50-75); PLATELET ESTIMATE NORMAL (NORMAL); TOTAL CELLS COUNTED 100
[2017-04-13 08:46] LABS: ANISOCYTOSIS SLIGHT; HYPOCHROMIC MODERATE; MICROCYTOSIS SLIGHT; OVALOCYTES SLIGHT; POIKILOCYTOSIS SLIGHT; TARGET CELLS MODERATE
[2017-04-13 08:53] LABS: LARGE PLATELETS PRESENT
[2017-04-13 08:55] LABS: SMUDGE CELLS PRESENT
[2017-04-13] MEDS: Saccharomyces Boulardi 250 mg Cap PO SCH ×2 (09:50→18:41)
--- NOTE | 2017-04-13 10:19 | EEG ---
DATE: 04/08/2017 This is a 16-channel electroencephalogram of awake and drowsy adult. During the study, photic stimulation was performed. Hyperventilation was not performed. The study is begin with 32 microvolt diffuse theta activities noted followed with organized alpha activities at parietal and occipital leads. Some movement artifact and loose electrode artifact noted at the central leads. This alpha activity is continuously noted without any generalized slowing noted. The photic stimulation did not evoke driving response noted at 2 to 20 Hz. IMPRESSION: This is a normal electroencephalogram of awake and drowsy adult. During the study, neither electroencephalographic paroxysmal activities nor focal slowing noted. Danny Bedoya MD
[2017-04-13] MEDS ORDERED: Propofol 10 mg/ml Inj (20 ML) ONE (12:34)
[2017-04-13] MEDS ORDERED: Etomidate 20 mg/10ml Inj IV ONE (12:35)
[2017-04-13] MEDS ORDERED: Succinylcholine Chloride 20 mg/ml Syr (5 ml) IV ONE (12:35)
--- NOTE | 2017-04-13 13:05 | CP.PCM.PN ---
Subjective - Date & Time of Evaluation Date of Evaluation: 04/13/17 Time of Evaluation: 07:00 - Subjective Subjective: Surgical Progress Note: Patient was seen and examined at bedside in the AM. Per nurse the patient continues to put out red sanguinous blood fromt NGT and suction then was turned off. Per nurse patient will be received 2 units of PRBC today 04/13/16 during dialysis. Tachycardia worsens with agitation. Patient is non-verbal. Objective - Vital Signs/Intake and Output Vital Signs (last 24 hours): Temp Pulse Resp BP Pulse Ox 98.6 F 154 H 26 H 134/87 100 04/13/17 12:00 04/13/17 12:25 04/13/17 12:25 04/13/17 12:25 04/13/17 12:25 Intake and Output: 04/13/17 04/13/17 06:59 18:59 Intake Total 2279 1920 Output Total 100 235 Balance 2179 1685 - Medications Medications: Current Medications Acetaminophen (Tylenol 325 Mg Supp) 325 mg OH Q4 PRN PRN Reason: Fever >100.4 F Last Admin: 04/13/17 04:38 Dose: 325 mg Ascorbic Acid (Vitamin C 500 Mg Tab) 500 mg PO DAILY [facility] Last Admin: 04/13/17 09:50 Dose: 500 mg Haloperidol Lactate (Haldol) 1 mg IVP BID PRN PRN Reason: Agitation Last Admin: 04/12/17 22:21 Dose: 1 mg Hydromorphone HCl (Dilaudid) 0.5 mg IVP Q4H PRN PRN Reason: Pain, severe (8-10) Last Admin: 04/12/17 23:11 Dose: 0.5 mg Vancomycin/Sodium Chloride (Vancomycin 1 Gm/Ns 200 Ml) 1 gm in 200 mls @ 133.333 mls/hr IVPB Q24H AGUSTIN Stop: 04/13/17 18:31 Last Admin: 04/09/17 18:55 Dose: 133.333 mls/hr Lactated Ringer's (Lactated Ringer's) 1,000 mls @ 100 mls/hr IV .Q10H [facility] Last Admin: 04/13/17 02:08 Dose: Not Given Piperacillin Sod/Tazobactam Sod (Zosyn 2.25 Gm Iv Premix) 2.25 gm in 50 mls @ 100 mls/hr IVPB Q8H [facility] Last Admin: 04/13/17 02:08 Dose: 100 mls/hr Sodium Chloride 40 meq/Magnesium Sulfate 6 meq/Calcium Gluconate 4.5 meq/ Chromium/Copper/Manganese/Zinc 1 ml/ Multivitamins/Vitamin C 10 ml/ Amino Acids 1,032.1552 mls @ 42 mls/hr IV .Q24H [facility] Stop: 04/13/17 17:59 Last Admin: 04/12/17 18:23 Dose: 42 mls/hr Pantoprazole Sodium 80 mg/ (Sodium Chloride) 100 mls @ 10 mls/hr IVPB .Q10H [facility] PRN Reason: 8 MG/HR Stop: 04/14/17 14:31 Last Admin: 04/13/17 10:17 Dose: 10 mls/hr Sodium Chloride 40 meq/Magnesium Sulfate 6 meq/Calcium Gluconate 4.5 meq/ Chromium/Copper/Manganese/Zinc 1 ml/ Multivitamins/Vitamin C 10 ml/ Amino Acids 1,032.1552 mls @ 42 mls/hr IV .Q24H [facility] Stop: 04/14/17 17:59 Lorazepam (Ativan) 0.5 mg IVP Q3H PRN PRN Reason: Anxiety Last Admin: 04/13/17 02:01 Dose: 0.5 mg Metoclopramide HCl (Reglan) 10 mg IVP Q12 [facility] Last Admin: 04/13/17 09:50 Dose: 10 mg Ondansetron HCl (Zofran Inj) 4 mg IVP Q6H PRN PRN Reason: Nausea/Vomiting Last Admin: 04/11/17 21:39 Dose: 4 mg Saccharomyces Boulardii (Florastor) 250 mg PO BID [facility] Last Admin: 04/13/17 09:50 Dose: 250 mg Thiamine HCl (Vitamin B1 Tab) 100 mg PO DAILY [facility] Last Admin: 04/13/17 09:50 Dose: 100 mg - Labs Labs: 04/13/17 06:37 04/13/17 06:37 PT 15.8 SECONDS (9.7-12.2) H 04/13/17 06:37 INR 1.4 04/13/17 06:37 APTT 30 SECONDS (21-34) 04/08/17 12:45 - Constitutional Appears: In Acute Distress, Chronically Ill - Head Exam Head Exam: ATRAUMATIC, NORMAL INSPECTION - Eye Exam Eye Exam: Normal appearance - ENT Exam Additional comments: NGT - Respiratory Exam Respiratory Exam: NORMAL BREATHING PATTERN - Cardiovascular Exam Cardiovascular Exam: Tachycardia, +S1, +S2 - GI/Abdominal Exam GI & Abdominal Exam: Soft - Extremities Exam Extremities Exam: Normal Inspection - Neurological Exam Neurological Exam: Alert, Awake. 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
[2017-04-13] MEDS ORDERED: Iodixanol 320 MG/ML 100 ML BOTTLE IV ONE (15:45)
--- NOTE | 2017-04-13 16:02 | CP.PCM.PN ---
Subjective - Date & Time of Evaluation Date of Evaluation: 04/13/17 Time of Evaluation: 15:25 - Subjective Subjective: minimally verbal s/p HD today minimal u/o hemoglobin very low, s/p prbc family at bedside unable to obtain ROS due to mental state Objective - Vital Signs/Intake and Output Vital Signs (last 24 hours): Temp Pulse Resp BP Pulse Ox 98.6 F 127 H 16 115/74 98 04/13/17 12:38 04/13/17 15:07 04/13/17 15:07 04/13/17 15:09 04/13/17 15:07 Intake and Output: 04/13/17 04/13/17 06:59 18:59 Intake Total 2279 2526 Output Total 100 265 Balance 2179 2261 - Medications Medications: Current Medications Acetaminophen (Tylenol 325 Mg Supp) 325 mg [place] Q4 PRN PRN Reason: Fever >100.4 F Last Admin: 04/13/17 04:38 Dose: 325 mg Ascorbic Acid (Vitamin C 500 Mg Tab) 500 mg PO DAILY [facility] Last Admin: 04/13/17 09:50 Dose: 500 mg Haloperidol Lactate (Haldol) 1 mg IVP BID PRN PRN Reason: Agitation Last Admin: 04/12/17 22:21 Dose: 1 mg Hydromorphone HCl (Dilaudid) 0.5 mg IVP Q4H PRN PRN Reason: Pain, severe (8-10) Last Admin: 04/13/17 15:55 Dose: 0.5 mg Vancomycin/Sodium Chloride (Vancomycin 1 Gm/Ns 200 Ml) 1 gm in 200 mls @ 133.333 mls/hr IVPB Q24H [facility] Stop: 04/13/17 18:31 Last Admin: 04/09/17 18:55 Dose: 133.333 mls/hr Lactated Ringer's (Lactated Ringer's) 1,000 mls @ 100 mls/hr IV .Q10H [facility] Last Admin: 04/13/17 02:08 Dose: Not Given Piperacillin Sod/Tazobactam Sod (Zosyn 2.25 Gm Iv Premix) 2.25 gm in 50 mls @ 100 mls/hr IVPB Q8H [facility] Last Admin: 04/13/17 12:45 Dose: 100 mls/hr Sodium Chloride 40 meq/Magnesium Sulfate 6 meq/Calcium Gluconate 4.5 meq/ Chromium/Copper/Manganese/Zinc 1 ml/ Multivitamins/Vitamin C 10 ml/ Amino Acids 1,032.1552 mls @ 42 mls/hr IV .Q24H [facility] Stop: 04/13/17 17:59 Last Admin: 04/12/17 18:23 Dose: 42 mls/hr Pantoprazole Sodium 80 mg/ (Sodium Chloride) 100 mls @ 10 mls/hr IVPB .Q10H [facility] PRN Reason: 8 MG/HR Stop: 04/14/17 14:31 Last Admin: 04/13/17 10:17 Dose: 10 mls/hr Sodium Chloride 40 meq/Magnesium Sulfate 6 meq/Calcium Gluconate 4.5 meq/ Chromium/Copper/Manganese/Zinc 1 ml/ Multivitamins/Vitamin C 10 ml/ Amino Acids 1,032.1552 mls @ 42 mls/hr IV .Q24H [facility] Stop: 04/14/17 17:59 Lorazepam (Ativan) 0.5 mg IVP Q3H PRN PRN Reason: Anxiety Last Admin: 04/13/17 02:01 Dose: 0.5 mg Metoclopramide HCl (Reglan) 5 mg IVP Q6 [facility] Ondansetron HCl (Zofran Inj) 4 mg IVP Q6H PRN PRN Reason: Nausea/Vomiting Last Admin: 04/11/17 21:39 Dose: 4 mg Saccharomyces Boulardii (Florastor) 250 mg PO BID [facility] Last Admin: 04/13/17 09:50 Dose: 250 mg Thiamine HCl (Vitamin B1 Tab) 100 mg PO DAILY [facility] Last Admin: 04/13/17 09:50 Dose: 100 mg - Labs Labs: 04/13/17 06:37 04/13/17 06:37 PT 15.8 SECONDS (9.7-12.2) H 04/13/17 06:37 INR 1.4 04/13/17 06:37 APTT 30 SECONDS (21-34) 04/08/17 12:45 - Constitutional Appears: Confused, Chronically Ill - Eye Exam Eye Exam: EOMI - ENT Exam ENT Exam: Mucous Membranes Dry Additional comments: NGT in - Respiratory Exam Respiratory Exam: Decreased Breath Sounds. absent: Stridor - Cardiovascular Exam Cardiovascular Exam: Tachycardia. absent: Rubs - GI/Abdominal Exam GI & Abdominal Exam: Distended, Hypoactive Bowel Sounds. absent: Tenderness - Neurological Exam Neurological Exam: absent: Alert, Oriented x3 Assessment and Plan - Assessment and Plan (Free Text) Assessment: JIMBO on HD, remains oliguric for possible CT angiogram, per ICU staff to evaluate pneumotosis blood product and hemodynamic support probable daily HD
[2017-04-13 17:11] LABS: BASO % 0.3 % (0.0-2.0); EOS # 0.1 K/uL (0.0-0.7); EOS % 0.3 % (0.0-4.0); LYMPH # 1.5 K/uL (1.0-4.3); LYMPH % 8.3 % (20.0-40.0); MEAN CELL VOLUME 81.8 fL (81.0-99.0); MEAN CORPUSCULAR HEMOGLOBIN 26.5 pg (27.0-31.0); MEAN CORPUSCULAR HGB CONC 32.4 g/dL (33.0-37.0); MEAN PLATELET VOLUME 7.5 fL (7.2-11.7); MONO # 2.2 K/uL (0.0-0.8); MONO % 11.9 % (0.0-10.0); NEUT # 14.5 K/uL (1.8-7.0); NEUT % 79.2 % (50.0-75.0); PLATELET COUNT 340 K/uL (130-400); RBC 2.37 Mil/uL (3.80-5.20); RED CELL DISTRIBUTION WIDTH 15.7 % (11.5-14.5); WHITE BLOOD COUNT 18.3 K/uL (4.8-10.8)
[2017-04-13 17:23] LABS: HEMOGLOBIN 6.3 g/dL (11.0-16.0)
[2017-04-13 18:00] LABS: ANISOCYTOSIS SLIGHT; BANDS 1 % (0-2); EOSINOPHIL 1 % (0-4); LYMPHOCYTE 9 % (20-40); MONOCYTE 7 % (0-10); NEUTROPHIL 82 % (50-75); PLATELET ESTIMATE NORMAL (NORMAL); TOTAL CELLS COUNTED 100
[2017-04-13] MEDS ORDERED: PPN #6 IV SCH (18:00)
[2017-04-13 18:01] LABS: HYPOCHROMIC MODERATE; MICROCYTOSIS SLIGHT; OVALOCYTES SLIGHT; POLYCHROMIC SLIGHT
--- NOTE | 2017-04-13 19:18 | CP.PCM.PN ---
Subjective - Date & Time of Evaluation Date of Evaluation: 04/13/17 Time of Evaluation: 08:00 - Subjective Subjective: events noted iv rx in progress no new cultures Objective - Vital Signs/Intake and Output Vital Signs (last 24 hours): Temp Pulse Resp BP Pulse Ox 98.6 F 138 H 20 133/83 98 04/13/17 12:38 04/13/17 19:00 04/13/17 19:00 04/13/17 18:45 04/13/17 19:00 Intake and Output: 04/13/17 04/14/17 18:59 06:59 Intake Total 2982 Output Total 370 Balance 2612 - Medications Medications: Current Medications Acetaminophen (Tylenol 325 Mg Supp) 325 mg MD Q4 PRN PRN Reason: Fever >100.4 F Last Admin: 04/13/17 04:38 Dose: 325 mg Ascorbic Acid (Vitamin C 500 Mg Tab) 500 mg PO DAILY [facility] Last Admin: 04/13/17 09:50 Dose: 500 mg Haloperidol Lactate (Haldol) 1 mg IVP BID PRN PRN Reason: Agitation Last Admin: 04/12/17 22:21 Dose: 1 mg Hydromorphone HCl (Dilaudid) 0.5 mg IVP Q4H PRN PRN Reason: Pain, severe (8-10) Last Admin: 04/13/17 15:55 Dose: 0.5 mg Lactated Ringer's (Lactated Ringer's) 1,000 mls @ 100 mls/hr IV .Q10H [facility] Last Admin: 04/13/17 02:08 Dose: Not Given Piperacillin Sod/Tazobactam Sod (Zosyn 2.25 Gm Iv Premix) 2.25 gm in 50 mls @ 100 mls/hr IVPB Q8H [facility] Last Admin: 04/13/17 18:46 Dose: 100 mls/hr Pantoprazole Sodium 80 mg/ (Sodium Chloride) 100 mls @ 10 mls/hr IVPB .Q10H [facility] PRN Reason: 8 MG/HR Last Admin: 04/13/17 10:17 Dose: 10 mls/hr Sodium Chloride 40 meq/Magnesium Sulfate 6 meq/Calcium Gluconate 4.5 meq/ Chromium/Copper/Manganese/Zinc 1 ml/ Multivitamins/Vitamin C 10 ml/ Amino Acids 1,032.1552 mls @ 42 mls/hr IV .Q24H [facility] Stop: 04/14/17 17:59 Last Admin: 04/13/17 18:52 Dose: 42 mls/hr Lorazepam (Ativan) 0.5 mg IVP Q3H PRN PRN Reason: Anxiety Last Admin: 04/13/17 02:01 Dose: 0.5 mg Metoclopramide HCl (Reglan) 5 mg IVP Q6 [facility] Last Admin: 04/13/17 18:46 Dose: 5 mg Ondansetron HCl (Zofran Inj) 4 mg IVP Q6H PRN PRN Reason: Nausea/Vomiting Last Admin: 04/11/17 21:39 Dose: 4 mg Saccharomyces Boulardii (Florastor) 250 mg PO BID [facility] Last Admin: 04/13/17 18:41 Dose: Not Given Thiamine HCl (Vitamin B1 Tab) 100 mg PO DAILY [facility] Last Admin: 04/13/17 09:50 Dose: 100 mg - Labs Labs: 04/13/17 17:02 04/13/17 06:37 PT 15.8 SECONDS (9.7-12.2) H 04/13/17 06:37 INR 1.4 04/13/17 06:37 APTT 30 SECONDS (21-34) 04/08/17 12:45 - Constitutional Appears: Non-toxic - Head Exam Head Exam: NORMOCEPHALIC - Eye Exam Eye Exam: PERRL - ENT Exam ENT Exam: Mucous Membranes Dry - Neck Exam Neck Exam: absent: Lymphadenopathy - Respiratory Exam Respiratory Exam: Decreased Breath Sounds - Cardiovascular Exam Cardiovascular Exam: REGULAR RHYTHM - GI/Abdominal Exam GI & Abdominal Exam: Distended, Soft Assessment and Plan (1) Acute pancreatitis Status: Acute (2) Leucocytosis Status: Acute
--- NOTE | 2017-04-13 23:32 | CP.PCM.PN ---
Subjective - Date & Time of Evaluation Date of Evaluation: 04/13/17 Time of Evaluation: 16:30 - Subjective Subjective: Patient seen and evaluated HR better No additional events noted Physical Exam - Constitutional Appears: In Acute Distress, Agitated, Chronically Ill - Head Exam Head Exam: ATRAUMATIC, NORMAL INSPECTION - Eye Exam Eye Exam: EOMI, Normal appearance - Neck Exam Neck exam: Positive for: Normal Inspection. Negative for: Tenderness - Respiratory Exam Respiratory Exam: Decreased Breath Sounds, NORMAL BREATHING PATTERN - Cardiovascular Exam Cardiovascular Exam: Tachycardia, +S1 - GI/Abdominal Exam GI & Abdominal Exam: Soft, Tenderness - Extremities Exam Extremities exam: Positive for: normal inspection. Negative for: tenderness - Neurological Exam Neurological exam: Altered, CN II-XII Intact - Skin Skin Exam: Dry, Warm Objective - Vital Signs/Intake and Output Vital Signs (last 24 hours): Temp Pulse Resp BP Pulse Ox 99.0 F 121 H 16 101/58 L 98 04/13/17 22:15 04/13/17 22:15 04/13/17 22:15 04/13/17 22:15 04/13/17 19:00 Intake and Output: 04/13/17 04/14/17 18:59 06:59 Intake Total 2982 152 Output Total 370 35 Balance 2612 117 - Medications Medications: Current Medications Acetaminophen (Tylenol 325 Mg Supp) 325 mg [place] Q4 PRN PRN Reason: Fever >100.4 F Last Admin: 04/13/17 04:38 Dose: 325 mg Ascorbic Acid (Vitamin C 500 Mg Tab) 500 mg PO DAILY [facility] Last Admin: 04/13/17 09:50 Dose: 500 mg Haloperidol Lactate (Haldol) 1 mg IVP BID PRN PRN Reason: Agitation Last Admin: 04/12/17 22:21 Dose: 1 mg Hydromorphone HCl (Dilaudid) 0.5 mg IVP Q4H PRN PRN Reason: Pain, severe (8-10) Last Admin: 04/13/17 21:02 Dose: 0.5 mg Lactated Ringer's (Lactated Ringer's) 1,000 mls @ 100 mls/hr IV .Q10H [facility] Last Admin: 04/13/17 20:00 Dose: 100 mls/hr Piperacillin Sod/Tazobactam Sod (Zosyn 2.25 Gm Iv Premix) 2.25 gm in 50 mls @ 100 mls/hr IVPB Q8H [facility] Last Admin: 04/13/17 18:46 Dose: 100 mls/hr Pantoprazole Sodium 80 mg/ (Sodium Chloride) 100 mls @ 10 mls/hr IVPB .Q10H [facility] PRN Reason: 8 MG/HR Last Admin: 04/13/17 22:53 Dose: 10 mls/hr Sodium Chloride 40 meq/Magnesium Sulfate 6 meq/Calcium Gluconate 4.5 meq/ Chromium/Copper/Manganese/Zinc 1 ml/ Multivitamins/Vitamin C 10 ml/ Amino Acids 1,032.1552 mls @ 42 mls/hr IV .Q24H [facility] Stop: 04/14/17 17:59 Last Admin: 04/13/17 18:52 Dose: 42 mls/hr Lorazepam (Ativan) 0.5 mg IVP Q3H PRN PRN Reason: Anxiety Last Admin: 04/13/17 21:02 Dose: 0.5 mg Metoclopramide HCl (Reglan) 5 mg IVP Q6 [facility] Last Admin: 04/13/17 18:46 Dose: 5 mg Ondansetron HCl (Zofran Inj) 4 mg IVP Q6H PRN PRN Reason: Nausea/Vomiting Last Admin: 04/11/17 21:39 Dose: 4 mg Saccharomyces Boulardii (Florastor) 250 mg PO BID [facility] Last Admin: 04/13/17 18:41 Dose: Not Given Thiamine HCl (Vitamin B1 Tab) 100 mg PO DAILY [facility] Last Admin: 04/13/17 09:50 Dose: 100 mg - Labs Labs: 04/13/17 17:02 04/13/17 06:37 PT 15.8 SECONDS (9.7-12.2) H 04/13/17 06:37 INR 1.4 04/13/17 06:37 APTT 30 SECONDS (21-34) 04/08/17 12:45 Assessment and Plan - Assessment and Plan (Free Text) Assessment: Assessment & Plan - Assessment and Plan (Free Text) Assessment: Tachycardia JIMBO Acute pancreatitis Volume depletion Sepsis syndrome Intra-abdominal fluid collection- possible abscess Plan: ECHO: Normal EF and no valvular issues Tachycardia most likely due to medical issues Cardizem drip/PO as needed
[2017-04-14] MEDS: Piperacill/Tazo 2.25gm in Dex 2.25 GM/50 ML BAG IVPB SCH ×3 (02:00→17:15)
[2017-04-14 05:58] LABS: ABG ALLEN TEST POS; ARTERIAL BLOOD GAS HCO3 22.3 mmol/L (21-28); ARTERIAL BLOOD GAS O2 SAT 98.8 % (95-98); ARTERIAL BLOOD GAS PCO2 46 mm/Hg (35-45); ARTERIAL BLOOD GAS PH 7.31 (7.35-7.45); ARTERIAL BLOOD GAS PO2 87 mm/Hg (80-100); ARTERIAL BLOOD GAS TCO2 24.6 mmol/L (22-28)
[2017-04-14 06:33] LABS: BASO # 0.1 K/uL (0.0-0.2); BASO % 0.3 % (0.0-2.0); EOS # 0.7 K/uL (0.0-0.7); EOS % 4.6 % (0.0-4.0); HEMOGLOBIN 6.8 g/dL (11.0-16.0); LYMPH % 13.1 % (20.0-40.0); MEAN CELL VOLUME 82.7 fL (81.0-99.0); MEAN CORPUSCULAR HEMOGLOBIN 28.1 pg (27.0-31.0); MEAN PLATELET VOLUME 7.9 fL (7.2-11.7); MONO # 2.3 K/uL (0.0-0.8); MONO % 15.2 % (0.0-10.0); NEUT # 10.3 K/uL (1.8-7.0); NEUT % 66.8 % (50.0-75.0); NRBC % 0.1 % (0.0-2.0); RBC 2.41 Mil/uL (3.80-5.20); RED CELL DISTRIBUTION WIDTH 15.6 % (11.5-14.5); WHITE BLOOD COUNT 15.4 K/uL (4.8-10.8)
[2017-04-14 06:53] LABS: ALBUMIN 2.5 g/dL (3.5-5.0); CALCIUM 7.3 mg/dl (8.6-10.4)
--- NOTE | 2017-04-14 07:04 | CP.CCUPN ---
Addendum entered and electronically signed by Pari Smith DO 04/14/17 13:26: per GI: no repeat EGD today. continue protonix drip and supportive care. Patient had TPN ordered for today due to PPN shortage Original Note: <Pari Smith - Last Filed: 04/14/17 11:22> CCU Subjective - Physician Review Subjective (Free Text): 04/14/17 07:[address] Guerin Patient seen and examined at bedside. NGT to suction 200cc over the past 24 hours. Patient to have 1uPRBC transfused today for extra dialysis, patient to have repeat EGD today. 04/14/17 09:33 Critical Care Time Spent (in minutes): 35 CCU Objective - Vital Signs / Intake & Output Vital Signs (Last 4 hours): Vital Signs Pulse Resp BP Pulse Ox 04/14/17 06:01 116 H 11 L 113/69 99 04/14/17 05:01 112 H 13 112/75 99 04/14/17 04:01 113 H 15 105/71 98 Intake and Output (Last 8hrs): Intake & Output 04/13/17 04/14/17 04/14/17 22:59 06:59 14:59 Intake Total 1216 2016 Output Total 140 200 Balance 1076 1816 Intake: Intake, IV Amount 1216 1316 Right Distal Port Upper 0 100 arm Right Femoral 336 336 Right Medial Port Femoral 800 800 Right Upper arm 80 80 Oral 0 0 Blood Product 0 650 Red Blood Cells Cpd As1 0 325 Lr Unit [id number] Other 50 Red Blood Cells Cpd As1 50 Lr Unit [id number] Output: Urine 140 200 Urethral (Tovar) 140 200 Emesis 0 Other: # Bowel Movements 0 - Physical Exam Head: Positive for: Atraumatic, Normocephalic. Negative for: Tenderness Pupils: Positive for: PERRL Extroacular Muscles: Positive for: EOMI Mouth: Positive for: Moist Mucous Membranes. Negative for: Dry, Drooling Nose (External): Positive for: Other (NGT in place) Nose (Internal): Positive for: Normal Inspection, Moist Neck: Positive for: Normal Range of Motion. Negative for: JVD, Lymphadenopathy Respiratory/Chest: Positive for: Clear to Auscultation. Negative for: Respiratory Distress, Accessory Muscle Use Cardiovascular: Positive for: Regular Rate and Rhythm, Normal S1, S2 Abdomen: Positive for: Tenderness (mild tenderness of palpation. patient continues to move her arms towards hands on palpation). Negative for: Distention, Guarding Upper Extremity: Positive for: Normal Inspection, Normal ROM, Capillary Refill < 2s. Negative for: Edema Lower Extremity: Positive for: Normal Inspection. Negative for: Edema Neurological: Positive for: CN II-XII Intact Skin: Positive for: Warm, Pale Psychiatric: Positive for: Alert - Medications Active Medications: Active Medications Generic Name Dose Route Start Last Admin Trade Name Freq PRN Reason Stop Dose Admin Acetaminophen 325 mg 03/29/17 07:57 04/13/17 04:38 Tylenol 325 Mg Supp W[place] 325 mg Q4 PRN Administration Fever >100.4 F Ascorbic Acid 500 mg 04/08/17 12:30 04/13/17 09:50 Vitamin C 500 Mg Tab PO 500 mg DAILY AGUSTIN Administration Haloperidol Lactate 1 mg 03/29/17 18:47 04/12/17 22:21 Haldol IVP 1 mg BID PRN Administration Agitation Hydromorphone HCl 0.5 mg 04/10/17 23:09 04/14/17 05:13 Dilaudid IVP 0.5 mg Q4H PRN Administration Pain, severe (8-10) Lactated Ringer's 1,000 mls @ 100 mls/hr 04/11/17 10:02 04/13/17 20:00 Lactated Ringer's IV 100 mls/hr .Q10H AGUSTIN Administration Piperacillin Sod/Tazobactam Sod 2.25 gm in 50 mls @ 100 mls/hr 04/12/17 18:00 04/14/17 02:00 Zosyn 2.25 Gm Iv Premix IVPB 100 mls/hr Q8H AGUSTIN Administration Pantoprazole Sodium 80 mg/ 100 mls @ 10 mls/hr 04/12/17 14:30 04/13/17 22:53 Sodium Chloride IVPB 10 mls/hr .Q10H AGUSTIN Administration 8 MG/HR Sodium Chloride 40 meq/ 1,032.1552 mls @ 42 mls/hr 04/13/17 18:00 04/13/17 18 :52 Magnesium Sulfate 6 meq/ IV 04/14/17 17:59 42 mls/hr Calcium Gluconate 4.5 meq/ .Q24H AGUSTIN Administration Chromium/Copper/Manganese/Zinc 1 ml/ Multivitamins/Vitamin C 10 ml/ Amino Acids Lorazepam 0.5 mg 04/01/17 16:08 04/14/17 05:12 Ativan IVP 0.5 mg Q3H PRN Administration Anxiety Metoclopramide HCl 5 mg 04/13/17 18:00 04/14/17 05:01 Reglan IVP 5 mg Q6 AGUSTIN Administration Ondansetron HCl 4 mg 03/27/17 23:45 04/11/17 21:39 Zofran Inj IVP 4 mg Q6H PRN Administration Nausea/Vomiting Saccharomyces Boulardii 250 mg 04/08/17 18:00 04/13/17 18:41 Florastor PO Not Given BID [facility] Thiamine HCl 100 mg 04/08/17 12:30 04/13/17 09:50 Vitamin B1 Tab PO 100 mg DAILY AGUSTIN Administration - Patient Studies Lab Studies: Microbiology Studies 04/08/17 11:47 Blood Culture - Final Blood-Venous NO GROWTH AFTER 5 DAYS Gram Stain - Final TEST NOT PERFORMED 04/08/17 11:47 Blood Culture - Final Blood-Venous NO GROWTH AFTER 5 DAYS Gram Stain - Final TEST NOT PERFORMED Lab Studies 04/14/17 04/14/17 04/14/17 Range/Units 06:20 06:18 05:28 WBC 15.4 H (4.8-10.8) K/uL RBC 2.41 L (3.80-5.20) Mil/uL Hgb 6.8 L (11.0-16.0) g/dL Hct 19.9 L (34.0-47.0) % MCV 82.7 (81.0-99.0) fL MCH 28.1 (27.0-31.0) pg MCHC 34.0 (33.0-37.0) g/dL RDW 15.6 H (11.5-14.5) % Plt Count 311 (130-400) K/uL MPV 7.9 (7.2-11.7) fL Neut % (Auto) 66.8 (50.0-75.0) % Lymph % (Auto) 13.1 L (20.0-40.0) % Lee % (Auto) 15.2 H (0.0-10.0) % Eos % (Auto) 4.6 H (0.0-4.0) % Baso % (Auto) 0.3 (0.0-2.0) % Neut # 10.3 H (1.8-7.0) K/uL Lymph # 2.0 (1.0-4.3) K/uL Lee # 2.3 H (0.0-0.8) K/uL Eos # 0.7 (0.0-0.7) K/uL Baso # 0.1 (0.0-0.2) K/uL Neutrophils % (Manual) (50-75) % Band Neutrophils % (0-2) % Lymphocytes % (Manual) (20-40) % Monocytes % (Manual) (0-10) % Eosinophils % (Manual) (0-4) % Smudge Cells Platelet Estimate (NORMAL) Large Platelets Polychromasia Hypochromasia (manual) Poikilocytosis (manual Basophilic Stippling Anisocytosis (manual) Microcytosis (manual) Target Cells Ovalocytes Puncture Site Rr pCO2 46 H (35-45) mm/Hg pO2 87 (80-100) mm/Hg HCO3 22.3 (21-28) mmol/L ABG pH 7.31 L (7.35-7.45) ABG Total CO2 24.6 (22-28) mmol/L ABG O2 Saturation 98.8 H (95-98) % ABG Base Excess -3.3 L (-2.0-3.0) mmol/L Daniel Test Pos ABG Potassium 3.0 L (3.6-5.2) mmol/L Glucose 93 (65-105) mg/dl Lactate 0.4 L (0.7-2.1) mmol/L Liter Flow 3.0 Sodium 133 141.0 (132-148) mmol/L Potassium 3.0 L (3.6-5.2) mmol/L Chloride 104 110.0 H (98-107) mmol/L Carbon Dioxide 21 L (22-30) mmol/L Anion Gap 11 (10-20) BUN 44 H (7-17) mg/dL Creatinine 4.8 H (0.7-1.2) mg/dL Est GFR ( Amer) 13 Est GFR (Non-Af Amer) 10 POC Glucose (mg/dL) (65-110) mg/dL Random Glucose 93 (65-105) mg/dL Calcium 7.3 L (8.6-10.4) mg/dl Total Bilirubin 0.7 (0.2-1.3) mg/dL AST 21 (14-36) U/L ALT 27 (9-52) U/L Alkaline Phosphatase 61 (38-126) U/L Total Protein 5.0 L (6.3-8.3) g/dL Albumin 2.5 L (3.5-5.0) g/dL Globulin 2.5 (2.2-3.9) gm/dL Albumin/Globulin Ratio 1.0 (1.0-2.1) TSH 3rd Generation (0.46-4.68) mIU/L Arterial Blood Potassium 3.0 L (3.6-5.2) mmol/L Blood Type Antibody Screen 04/14/17 04/13/17 04/13/17 Range/Units 00:24 17:44 17:02 WBC 18.3 H (4.8-10.8) K/uL RBC 2.37 L (3.80-5.20) Mil/uL Hgb 6.3 L* D (11.0-16.0) g/dL Hct 19.4 L (34.0-47.0) % MCV 81.8 (81.0-99.0) fL MCH 26.5 L (27.0-31.0) pg MCHC 32.4 L (33.0-37.0) g/dL RDW 15.7 H (11.5-14.5) % Plt Count 340 (130-400) K/uL MPV 7.5 (7.2-11.7) fL Neut % (Auto) 79.2 H (50.0-75.0) % Lymph % (Auto) 8.3 L (20.0-40.0) % Lee % (Auto) 11.9 H (0.0-10.0) % Eos % (Auto) 0.3 (0.0-4.0) % Baso % (Auto) 0.3 (0.0-2.0) % Neut # 14.5 H (1.8-7.0) K/uL Lymph # 1.5 (1.0-4.3) K/uL Lee # 2.2 H (0.0-0.8) K/uL Eos # 0.1 (0.0-0.7) K/uL Baso # 0.0 (0.0-0.2) K/uL Neutrophils % (Manual) 82 H (50-75) % Band Neutrophils % 1 (0-2) % Lymphocytes % (Manual) 9 L (20-40) % Monocytes % (Manual) 7 (0-10) % Eosinophils % (Manual) 1 (0-4) % Smudge Cells Platelet Estimate Normal (NORMAL) Large Platelets Polychromasia Slight Hypochromasia (manual) Moderate Poikilocytosis (manual Basophilic Stippling Anisocytosis (manual) Slight Microcytosis (manual) Slight Target Cells Ovalocytes Slight Puncture Site pCO2 (35-45) mm/Hg pO2 (80-100) mm/Hg HCO3 (21-28) mmol/L ABG pH (7.35-7.45) ABG Total CO2 (22-28) mmol/L ABG O2 Saturation (95-98) % ABG Base Excess (-2.0-3.0) mmol/L Daniel Test ABG Potassium (3.6-5.2) mmol/L Glucose (65-105) mg/dl Lactate (0.7-2.1) mmol/L Liter Flow Sodium (132-148) mmol/L Potassium (3.6-5.2) mmol/L Chloride (98-107) mmol/L Carbon Dioxide (22-30) mmol/L Anion Gap (10-20) BUN (7-17) mg/dL Creatinine (0.7-1.2) mg/dL Est GFR ( Amer) Est GFR (Non-Af Amer) POC Glucose (mg/dL) 76 104 (65-110) mg/dL Random Glucose (65-105) mg/dL Calcium (8.6-10.4) mg/dl Total Bilirubin (0.2-1.3) mg/dL AST (14-36) U/L ALT (9-52) U/L Alkaline Phosphatase (38-126) U/L Total Protein (6.3-8.3) g/dL Albumin (3.5-5.0) g/dL Globulin (2.2-3.9) gm/dL Albumin/Globulin Ratio (1.0-2.1) TSH 3rd Generation (0.46-4.68) mIU/L Arterial Blood Potassium (3.6-5.2) mmol/L Blood Type Antibody Screen 04/13/17 04/13/17 04/13/17 Range/Units 11:36 06:37 06:37 WBC (4.8-10.8) K/uL RBC (3.80-5.20) Mil/uL Hgb (11.0-16.0) g/dL Hct (34.0-47.0) % MCV (81.0-99.0) fL MCH (27.0-31.0) pg MCHC (33.0-37.0) g/dL RDW (11.5-14.5) % Plt Count (130-400) K/uL MPV (7.2-11.7) fL Neut % (Auto) (50.0-75.0) % Lymph % (Auto) (20.0-40.0) % Lee % (Auto) (0.0-10.0) % Eos % (Auto) (0.0-4.0) % Baso % (Auto) (0.0-2.0) % Neut # (1.8-7.0) K/uL Lymph # (1.0-4.3) K/uL Lee # (0.0-0.8) K/uL Eos # (0.0-0.7) K/uL Baso # (0.0-0.2) K/uL Neutrophils % (Manual) 65 (50-75) % Band Neutrophils % 8 H (0-2) % Lymphocytes % (Manual) 13 L (20-40) % Monocytes % (Manual) 13 H (0-10) % Eosinophils % (Manual) 1 (0-4) % Smudge Cells Present Platelet Estimate Normal (NORMAL) Large Platelets Present Polychromasia Hypochromasia (manual) Moderate Poikilocytosis (manual Slight Basophilic Stippling Slight Anisocytosis (manual) Slight Microcytosis (manual) Slight Target Cells Moderate Ovalocytes Slight Puncture Site pCO2 (35-45) mm/Hg pO2 (80-100) mm/Hg HCO3 (21-28) mmol/L ABG pH (7.35-7.45) ABG Total CO2 (22-28) mmol/L ABG O2 Saturation (95-98) % ABG Base Excess (-2.0-3.0) mmol/L Daniel Test ABG Potassium (3.6-5.2) mmol/L Glucose (65-105) mg/dl Lactate (0.7-2.1) mmol/L Liter Flow Sodium 132 (132-148) mmol/L Potassium 4.3 (3.6-5.2) mmol/L Chloride 101 (98-107) mmol/L Carbon Dioxide 20 L (22-30) mmol/L Anion Gap 15 (10-20) BUN 46 H (7-17) mg/dL Creatinine 5.8 H (0.7-1.2) mg/dL Est GFR ( Amer) 10 Est GFR (Non-Af Amer) 8 POC Glucose (mg/dL) 104 (65-110) mg/dL Random Glucose 128 H (65-105) mg/dL Calcium 7.4 L (8.6-10.4) mg/dl Total Bilirubin 0.5 (0.2-1.3) mg/dL AST 20 (14-36) U/L ALT 21 (9-52) U/L Alkaline Phosphatase 90 (38-126) U/L Total Protein 4.7 L (6.3-8.3) g/dL Albumin 2.4 L D (3.5-5.0) g/dL Globulin 2.3 (2.2-3.9) gm/dL Albumin/Globulin Ratio 1.0 (1.0-2.1) TSH 3rd Generation 0.46 (0.46-4.68) mIU/L Arterial Blood Potassium (3.6-5.2) mmol/L Blood Type Antibody Screen 04/13/17 04/12/17 Range/Units 06:17 16:20 WBC (4.8-10.8) K/uL RBC (3.80-5.20) Mil/uL Hgb (11.0-16.0) g/dL Hct (34.0-47.0) % MCV (81.0-99.0) fL MCH (27.0-31.0) pg MCHC (33.0-37.0) g/dL RDW (11.5-14.5) % Plt Count (130-400) K/uL MPV (7.2-11.7) fL Neut % (Auto) (50.0-75.0) % Lymph % (Auto) (20.0-40.0) % Lee % (Auto) (0.0-10.0) % Eos % (Auto) (0.0-4.0) % Baso % (Auto) (0.0-2.0) % Neut # (1.8-7.0) K/uL Lymph # (1.0-4.3) K/uL Lee # (0.0-0.8) K/uL Eos # (0.0-0.7) K/uL Baso # (0.0-0.2) K/uL Neutrophils % (Manual) (50-75) % Band Neutrophils % (0-2) % Lymphocytes % (Manual) (20-40) % Monocytes % (Manual) (0-10) % Eosinophils % (Manual) (0-4) % Smudge Cells Platelet Estimate (NORMAL) Large Platelets Polychromasia Hypochromasia (manual) Poikilocytosis (manual Basophilic Stippling Anisocytosis (manual) Microcytosis (manual) Target Cells Ovalocytes Puncture Site pCO2 (35-45) mm/Hg pO2 (80-100) mm/Hg HCO3 (21-28) mmol/L ABG pH (7.35-7.45) ABG Total CO2 (22-28) mmol/L ABG O2 Saturation (95-98) % ABG Base Excess (-2.0-3.0) mmol/L Daniel Test ABG Potassium (3.6-5.2) mmol/L Glucose (65-105) mg/dl Lactate (0.7-2.1) mmol/L Liter Flow Sodium (132-148) mmol/L Potassium (3.6-5.2) mmol/L Chloride (98-107) mmol/L Carbon Dioxide (22-30) mmol/L Anion Gap (10-20) BUN (7-17) mg/dL Creatinine (0.7-1.2) mg/dL Est GFR ( Amer) Est GFR (Non-Af Amer) POC Glucose (mg/dL) 135 H (65-110) mg/dL Random Glucose (65-105) mg/dL Calcium (8.6-10.4) mg/dl Total Bilirubin (0.2-1.3) mg/dL AST (14-36) U/L ALT (9-52) U/L Alkaline Phosphatase (38-126) U/L Total Protein (6.3-8.3) g/dL Albumin (3.5-5.0) g/dL Globulin (2.2-3.9) gm/dL Albumin/Globulin Ratio (1.0-2.1) TSH 3rd Generation (0.46-4.68) mIU/L Arterial Blood Potassium (3.6-5.2) mmol/L Blood Type O POSITIVE Antibody Screen Negative Laboratory Results - last 24 hr 04/12/17 04/13/17 04/13/17 16:20 06:17 06:37 WBC RBC Hgb Hct MCV MCH MCHC RDW Plt Count MPV Neut % (Auto) Lymph % (Auto) Lee % (Auto) Eos % (Auto) Baso % (Auto) Neut # Lymph # Lee # Eos # Baso # Neutrophils % (Manual) Band Neutrophils % Lymphocytes % (Manual) Monocytes % (Manual) Eosinophils % (Manual) Smudge Cells Platelet Estimate Large Platelets Polychromasia Hypochromasia (manual) Poikilocytosis (manual Basophilic Stippling Anisocytosis (manual) Microcytosis (manual) Target Cells Ovalocytes Puncture Site pCO2 pO2 HCO3 ABG pH ABG Total CO2 ABG O2 Saturation ABG Base Excess Daniel Test ABG Potassium Glucose Lactate Liter Flow Sodium 132 Potassium 4.3 Chloride 101 Carbon Dioxide 20 L Anion Gap 15 BUN 46 H Creatinine 5.8 H Est GFR ( Amer) 10 Est GFR (Non-Af Amer) 8 POC Glucose (mg/dL) 135 H Random Glucose 128 H Calcium 7.4 L Total Bilirubin 0.5 AST 20 ALT 21 Alkaline Phosphatase 90 Total Protein 4.7 L Albumin 2.4 L D Globulin 2.3 Albumin/Globulin Ratio 1.0 TSH 3rd Generation 0.46 Arterial Blood Potassium Blood Type O POSITIVE Antibody Screen Negative 04/13/17 04/13/17 04/13/17 06:37 11:36 17:02 WBC 18.3 H RBC 2.37 L Hgb 6.3 L* D Hct 19.4 L MCV 81.8 MCH 26.5 L MCHC 32.4 L RDW 15.7 H Plt Count 340 MPV 7.5 Neut % (Auto) 79.2 H Lymph % (Auto) 8.3 L Lee % (Auto) 11.9 H Eos % (Auto) 0.3 Baso % (Auto) 0.3 Neut # 14.5 H Lymph # 1.5 Lee # 2.2 H Eos # 0.1 Baso # 0.0 Neutrophils % (Manual) 65 82 H Band Neutrophils % 8 H 1 Lymphocytes % (Manual) 13 L 9 L Monocytes % (Manual) 13 H 7 Eosinophils % (Manual) 1 1 Smudge Cells Present Platelet Estimate Normal Normal Large Platelets Present Polychromasia Slight Hypochromasia (manual) Moderate Moderate Poikilocytosis (manual Slight Basophilic Stippling Slight Anisocytosis (manual) Slight Slight Microcytosis (manual) Slight Slight Target Cells Moderate Ovalocytes Slight Slight Puncture Site pCO2 pO2 HCO3 ABG pH ABG Total CO2 ABG O2 Saturation ABG Base Excess Daniel Test ABG Potassium Glucose Lactate Liter Flow Sodium Potassium Chloride Carbon Dioxide Anion Gap BUN Creatinine Est GFR ( Amer) Est GFR (Non-Af Amer) POC Glucose (mg/dL) 104 Random Glucose Calcium Total Bilirubin AST ALT Alkaline Phosphatase Total Protein Albumin Globulin Albumin/Globulin Ratio TSH 3rd Generation Arterial Blood Potassium Blood Type Antibody Screen 04/13/17 04/14/17 04/14/17 17:44 00:24 05:28 WBC RBC Hgb Hct MCV MCH MCHC RDW Plt Count MPV Neut % (Auto) Lymph % (Auto) Lee % (Auto) Eos % (Auto) Baso % (Auto) Neut # Lymph # Lee # Eos # Baso # Neutrophils % (Manual) Band Neutrophils % Lymphocytes % (Manual) Monocytes % (Manual) Eosinophils % (Manual) Smudge Cells Platelet Estimate Large Platelets Polychromasia Hypochromasia (manual) Poikilocytosis (manual Basophilic Stippling Anisocytosis (manual) Microcytosis (manual) Target Cells Ovalocytes Puncture Site Rr pCO2 46 H pO2 87 HCO3 22.3 ABG pH 7.31 L ABG Total CO2 24.6 ABG O2 Saturation 98.8 H ABG Base Excess -3.3 L Daniel Test Pos ABG Potassium 3.0 L Glucose 93 Lactate 0.4 L Liter Flow 3.0 Sodium 141.0 Potassium Chloride 110.0 H Carbon Dioxide Anion Gap BUN Creatinine Est GFR ( Amer) Est GFR (Non-Af Amer) POC Glucose (mg/dL) 104 76 Random Glucose Calcium Total Bilirubin AST ALT Alkaline Phosphatase Total Protein Albumin Globulin Albumin/Globulin Ratio TSH 3rd Generation Arterial Blood Potassium 3.0 L Blood Type Antibody Screen 04/14/17 04/14/17 06:18 06:20 WBC 15.4 H RBC 2.41 L Hgb 6.8 L Hct 19.9 L MCV 82.7 MCH 28.1 MCHC 34.0 RDW 15.6 H Plt Count 311 MPV 7.9 Neut % (Auto) 66.8 Lymph % (Auto) 13.1 L Lee % (Auto) 15.2 H Eos % (Auto) 4.6 H Baso % (Auto) 0.3 Neut # 10.3 H Lymph # 2.0 Lee # 2.3 H Eos # 0.7 Baso # 0.1 Neutrophils % (Manual) Band Neutrophils % Lymphocytes % (Manual) Monocytes % (Manual) Eosinophils % (Manual) Smudge Cells Platelet Estimate Large Platelets Polychromasia Hypochromasia (manual) Poikilocytosis (manual Basophilic Stippling Anisocytosis (manual) Microcytosis (manual) Target Cells Ovalocytes Puncture Site pCO2 pO2 HCO3 ABG pH ABG Total CO2 ABG O2 Saturation ABG Base Excess Daniel Test ABG Potassium Glucose Lactate Liter Flow Sodium 133 Potassium 3.0 L Chloride 104 Carbon Dioxide 21 L Anion Gap 11 BUN 44 H Creatinine 4.8 H Est GFR ( Amer) 13 Est GFR (Non-Af Amer) 10 POC Glucose (mg/dL) Random Glucose 93 Calcium 7.3 L Total Bilirubin 0.7 AST 21 ALT 27 Alkaline Phosphatase 61 Total Protein 5.0 L Albumin 2.5 L Globulin 2.5 Albumin/Globulin Ratio 1.0 TSH 3rd Generation Arterial Blood Potassium Blood Type Antibody Screen Fingerstick Blood Sugar Results: 76 Critical Care Progress Note - Nutrition Nutrition: Nutrition Category Date Time Status NPO Diet [DIET] Diets 04/08/17 Dinner Active Assessment/Plan - Assessment and Plan (Free Text) Assessment: 04/14 CT Angio: gastric distentions 27cm. gastric pneumatosis on image 66 through 73 series 6. NGT in fundus of stomach with contrast fluid and gas level. peripancreatic infiltration. left more than right large pleural effusions. bilateral perihilar consolidation. 36F admitted with diarrhea,tachycardia,elevated WBC count ,lipase and lactic acid, 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 Neuro: hx of Schizophrenia, patient has mental retardation and can speak some words based on observation Altered mental status 04/07 Dr. Bedoya consulted Psych Consult: Dr. Mccloud Pain: 0.5 mg IVP Q4H PRN Sedation: 1mg Haldol IVP Q12H PRN 0.5mg Ativan Q3H PRN Nausea: Zofran 4mg IVP q6h PRN Reglan 10 mg IVP q4h PRN Psych: Psych Consult Dr. Mccloud: f/u 03/30 EKG to evaluate QTc Quetiapine (Seroquel) 200mg POBID, held d/t NGT on IWS, held awaiting Dr. Mccloud Recommendations Escitalopram (Lexapro) 10mg PO QD, held d/t NGT on IWS, held awaiting Dr. Mccloud Recommendations Cardio: Tachycardia 03/27 EKG Sinus tachycardia 138 bpm 03/30 EKG QTc 434, Sinus tachycardia at 153 bpm Diltiazem 125mg Q24hr @ 5mg/hr 04/08 Pulm: Aspiration pneumonia s/p EGD with intubation then extubation 03/27 AB.22, lactate 9.7 04/08 AB.50, CO2 24, O2 148, HCO3 22.9, lactate 1.0 03/27 CXR in infiltrates, no active pulmonary disease 03/30 CXR: poor inspiratory effort, areas suggestive of aspiration pneumonia 04/02: CT abdomen/pelvis/chest: pleural effusions, bilateral perihilar consolidations possibly due to multifocal pneumonia vs. atelectasis 04/04: CXR: Left lower lobe atelectasis/pneumonia and small left pleural effusion. Stable position of nasogastric tube and left PICC line. Endo: 03/28 Hemoglobin A1c 5.3 GI: Currently on PPN 03/28 Lipase 8456 03/29 Lipase 322 03/30 Lipase 64 03/30 GOBT positive 03/31 Pathology for Antrum biopsy from 03/29 EGD current biopsy negative for H pylori 04/01 f/u Dr. Harmon for repeat EGD., NGT 800 03/27 21:42 CT abdomen/pelvis with IV contrast: gastric distention 32cm and distention of the first and third and second portion of duodenum. Transition and complete decompression of third portion of duodenum. pancreas unremarkable, spleen unremarkable, partially contracted gallbladder. duodenal obstruction v delayed emptying v gastroparesis. Fluid distention of distal esophagus 3.3cm representing gastric emptying v gastroesophageal reflux. 03/27 CT abdomen/pelvis with IV contrast: significantly dilated stomach with retained food and fluid. significantly diminished prior to earlier CT 03/28. No free intraperitoneal gas identified. contrast noted in Gallbladder. 03/28 CT Chest/Abdomen/Pelvis: Left greater than right pleural effusion, bilateral perihilar consolidation. right more than left upper lobes and left more than right lower lobes. lingular consolidation representing multifocal pneumonia v. atelectasis versus mucous lugging and/or aspiration. interval worsening compared to prior exam 04/02 CT chest/abdomen/pelvis shows gastric distention 27cm, possible gastric pneumatosis, NGT at fundus with contrast fluid and gas level peripancreatic infiltration. gastric distension measuring 27 cm with possible gastric pneumatosis. intraperitoneal pelvic fluid with prominent surrounding peritoneal lining. Loculated ascites with peritoneal enhancement above spleen in retrogastric region. Lipase 320. 04/08 CT Chest/Abdomen/Pelvis: resolving acute pancreatitis, no residual peripancreatic fluid. 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 Distention of stomach due to gastric ileus. Ascites and loculated fluid posterior to the gastric fundus and cephalad to the spleen. Focal enteritis of proximal jejunum with mural thickening. Small left pleural effusion with left lower lobe compressive atelectasis. 04/14/17 CT Angio Abdomen/Pelvis:gastric distentions 27cm. gastric pneumatosis on image 66 through 73 series 6. NGT in fundus of stomach with contrast fluid and gas level. peripancreatic infiltration. left more than right large pleural effusions. bilateral perihilar consolidation. right more than left upper lobes and left more than right lower lobes lingular consolidation. Significant interval worsening when compared to prior examination 03/28/17. moderate intraperitoneal pelvic fluid with prominent surrounding peritoneal lining. Loculated peritoneal abscess secondary to contained gastric perforation 03/[address] connected to suction. 03/28 NGT OP since insertion: 2600cc 03/29 2350 03/30 NGT 1160 03/31 NGT 630 04/01 NGT 800 04/02 NGT 100 04/04 550, NGT removed by patient, Flexiseal removed by patient f/u Strict I/Os 04/10 NGT 3300 04/11 NGT 1200 04/12 NGT 700, with about 100cc of bright red sanguinous blood, with bilious component. 04/12 NGT off suction, clamped, patient continues to have red output to gravity. General Surgery Consult: Dr. Woodruff 03/[address] Harmon to have EGD today. 03/[address] Harmon, place patient on Reglan to help with motility. 03/30 Abdominal xray/obstructive series: minimal distention of stomach compared to previous imaging studies 03/31 Pathology for Antrum biopsy from 03/29 EGD current biopsy negative for H pylori 04/01 f/u Dr. Harmon for repeat EGD. 04/13 Dr. Lau repeat EGD: diffuse ulceration, large fibrous clot, repeat EGD scheduled 04/14 for re-evaluation, CT Angio ordered to evaluate for ischemia 04/13 NGT 280 cc 04/14 NGT 140cc over 24 hours 04/14 repeat EGD: Morphine 2 mg IV q4h PRN moderate pain Morphine 4 mg IV q4h PRN severe pain Zofran 4mg IVP q6h PRN Reglan 10 mg IVP q4h PRN Renal: 03/27 UA: proteinuria urine output since insertion 360 average hourly output 60cc/hr f/u Strict I/Os 03/31 Potassium Phosphorus 15mmole @63cc/hr 24Hr UOP 110, 20-30cc/hr : 03/27 UA: hazy, specific gravity >1.060, 3+ urine protein, Urine bacteria, Urine Yeast Ceftriaxone 1gm IVPB QD, discontinued 03/30 Urine Cx negative 04/08 UA: [place], UA pH 5.0, trace ketones, 1+ leukocyte esterase, specific gravity 1.030 04/08 urine random total protein 41.0 Urine random chloride 17 Urine random sodium 7 Heme: GI bleed H/H: 03/27 14.6/44.7 03/28 12.9/38.5 03/28 FOBT positive 03/29 11.2/33.0 03/30 GOBT positive 03/30 9.5/27.7 03/31 9.4/27.5 04/01 8.9/25.8 04/02 9.1/26.7 04/04 9.9/28.8 04/05 9.4/28.4 04/09/17 04/10 9.6/29.9 04/11 7.8/22.6 04/12 7.0/20.4 04/13 4.1/11.1 04/14 6.8/19.9 MSK: Patient can walk per sister, but is dizzy so hasn't walked PT/OT eval and treat when stable ID: Sepsis Code sepsis 03/28 02:20, 03/28 lactate 9.7, 03/28 lactate 01:05 9.2, 03/28 lactate 06:15 1.3 Lactate is downtrending, normal Leukocytosis, downtrending 03/27 WBC 26.7 03/28 WBC 30.2 03/29 WBC 21.3 03/30 WBC 16.1 03/31 WBC 15.7 04/02 WBC 16.8 04/03 WBC 18.4 04/04 WBC 18.6 04/05 WBC 20.1 04/06 WBC 23.2 04/08 08:19 WBC 36.1 04/08 19:10 WBC 37.4 04/09 06:24 WBC 33.3 04/10 06:52 WBC 20.4 04/11 06:36 13.5 04/12 06:10 13.6 04/12 16:20 12.3 04/13 06:37 18.6 04/13 17:02 18.3 04/14 15.4 Code sepsis 03/28 02:20 03/30 blood Culture x 2, negative 03/30 MRSA screen negative 03/30 Urine Cx negative 04/02 Blood culture x2 negative 03/29 Neutrophils 75, Bands 9 03/30 Neutrophils 83, Bands 1 04/02 Neutrophils 83 04/04 Neutrophils 73.8 04/05 Neutrophils 74.4 Code sepsis called again today 04/08. Patient was febrile (102 rectally and tachycardic ~140s) BP was 100/70. Tovar inserted to monitor urine output (nurse to clean TID with betadine) WBC 36.1 elevating from 20s. 4 bands, platelets 707 Prophylaxis: GI: Protonix Drip Zofran 4mg IVP Q6H PRN Nausea Tylenol 325mg WV Q4H PRN Fluids: LR @100cc/hr Diet: NPO 04/04 NGT removed by patient, Flexiseal removed by patient, Left PICC removed by patient. 04/05 Patient downgraded to Regular Bed 04/11 Patient has a femoral dialysis catheter 04/12 GI consulted for GI bleed, repeat EGD 04/13 patient to have dialysis today with 2 u PRBC transfusion. CTAngio of abdomen and pelvis today d/t possible ischemic changes due to diffuse ulcerations seen on EGD 04/14 Patient had 3 uPRBC yesterday (1 u after dialysis) Patient's hgb is 6.8 today. Will transfuse 1 u PRBC during extra dialysis session today. repeat EGD today discussed with Dr. Apoorva Smith DO PGY1 - Date & Time Date: 04/14/17 Time: 07:17 <Irwin Guerin - Last Filed: 04/14/17 17:58> CCU Objective - Vital Signs / Intake & Output Vital Signs (Last 4 hours): Vital Signs Temp Pulse Resp BP Pulse Ox 04/14/17 16:09 114 H 14 109/72 100 04/14/17 16:05 98.9 F 112 H 14 109/72 04/14/17 16:00 115 H 12 100 04/14/17 15:54 118 H 14 105/73 100 04/14/17 15:39 122 H 13 113/74 100 04/14/17 15:35 98.9 F 110 H 15 113/74 04/14/17 15:24 122 H 11 L 110/74 100 04/14/17 15:20 98.9 F 124 H 15 110/74 04/14/17 15:05 98.6 F 134 H 18 147/101 H 04/14/17 15:00 98.6 F 127 H 18 99 04/14/17 14:35 148 H 13 147/101 H 98 04/14/17 14:24 140 H 20 137/98 H 98 04/14/17 14:09 144 H 18 147/100 H 98 04/14/17 14:00 143 H 15 97 Intake and Output (Last 8hrs): Intake & Output 04/14/17 04/14/17 04/14/17 06:59 14:59 22:59 Intake Total 2015 1783 379 Output Total 400 0 0 Balance 1615 1783 379 Intake: Intake, IV Amount 1316 1216 254 Right Distal Port Upper 100 arm Right Femoral 336 336 84 Right Medial Port Femoral 800 800 150 Right Upper arm 80 80 20 Oral 0 Blood Product 650 567 125 Apheresis Rbc Cp2d As3 Lr 278 1st Unit [id number] Apheresis Rbc Cp2d As3 Lr 289 1st Unit [id number] Red Blood Cells Cpd As1 325 Lr Unit [id number] Red Blood Cells Cpd As1 125 Lr Unit [id number] Other 50 Red Blood Cells Cpd As1 50 Lr Unit [id number] Output: Gastric Amount 200 Right Nares 200 Urine 200 Urethral (Tovar) 200 Emesis 0 0 Other: # Bowel Movements 0 0 - Medications Active Medications: Active Medications Generic Name Dose Route Start Last Admin Trade Name Freq PRN Reason Stop Dose Admin Acetaminophen 325 mg 03/29/17 07:57 04/13/17 04:38 Tylenol 325 Mg Supp WV 325 mg Q4 PRN Administration Fever >100.4 F Ascorbic Acid 500 mg 04/08/17 12:30 04/14/17 10:00 Vitamin C 500 Mg Tab PO Not Given DAILY AGUSTIN Haloperidol Lactate 1 mg 03/29/17 18:47 04/12/17 22:21 Haldol IVP 1 mg BID PRN Administration Agitation Hydromorphone HCl 0.5 mg 04/10/17 23:09 04/14/17 13:39 Dilaudid IVP 0.5 mg Q4H PRN Administration Pain, severe (8-10) Piperacillin Sod/Tazobactam Sod 2.25 gm in 50 mls @ 100 mls/hr 04/12/17 18:00 04/14/17 15:10 Zosyn 2.25 Gm Iv Premix IVPB 100 mls/hr Q8H AGUSTIN Administration Pantoprazole Sodium 80 mg/ 100 mls @ 10 mls/hr 04/12/17 14:30 04/14/17 11:30 Sodium Chloride IVPB 10 mls/hr .Q10H AGUSTIN Administration 8 MG/HR Sodium Chloride 40 meq/ 1,032.1552 mls @ 42 mls/hr 04/13/17 18:00 04/13/17 18 :52 Magnesium Sulfate 6 meq/ IV 04/14/17 17:59 42 mls/hr Calcium Gluconate 4.5 meq/ .Q24H AGUSTIN Administration Chromium/Copper/Manganese/Zinc 1 ml/ Multivitamins/Vitamin C 10 ml/ Amino Acids Chromium/Copper/Manganese/Zinc 1,012 mls @ 63 mls/hr 04/14/17 18:00 1 ml/ Multivitamins/Vitamin C IV 04/15/17 10:03 10 ml/ Heparin Sodium ( .Q16H4M [facility] Porcine) 1,000 units/ Amino Acids/Electrolytes/Dextrose Fat Emulsion Intravenous 250 mls @ 42 mls/hr 04/14/17 18:00 Intralipid 20% IV 04/14/17 23:58 QOD AGUSTIN Chromium/Copper/Manganese/Zinc 1,002 mls @ 63 mls/hr 04/15/17 10:00 1 ml/ Heparin Sodium (Porcine IV 04/15/17 18:00 ) 1,000 units/ Amino Acids/ .[id number] [facility] Electrolytes/Dextrose Lorazepam 0.5 mg 04/01/17 16:08 04/14/17 14:55 Ativan IVP 0.5 mg Q3H PRN Administration Anxiety Metoclopramide HCl 5 mg 04/13/17 18:00 04/14/17 13:45 Reglan IVP 5 mg Q6 AGUSTIN Administration Ondansetron HCl 4 mg 03/27/17 23:45 04/11/17 21:39 Zofran Inj IVP 4 mg Q6H PRN Administration Nausea/Vomiting Saccharomyces Boulardii 250 mg 04/08/17 18:00 04/14/17 13:41 Florastor PO Not Given BID [facility] Thiamine HCl 100 mg 04/08/17 12:30 04/14/17 10:00 Vitamin B1 Tab PO Not Given DAILY [facility] - Patient Studies Lab Studies: Microbiology Studies 04/08/17 11:47 Blood Culture - Final Blood-Venous NO GROWTH AFTER 5 DAYS Gram Stain - Final TEST NOT PERFORMED 04/08/17 11:47 Blood Culture - Final Blood-Venous NO GROWTH AFTER 5 DAYS Gram Stain - Final TEST NOT PERFORMED Lab Studies 04/14/17 04/14/17 04/14/17 Range/Units 17:39 11:56 11:41 WBC (4.8-10.8) K/uL RBC (3.80-5.20) Mil/uL Hgb (11.0-16.0) g/dL Hct (34.0-47.0) % MCV (81.0-99.0) fL MCH (27.0-31.0) pg MCHC (33.0-37.0) g/dL RDW (11.5-14.5) % Plt Count (130-400) K/uL MPV (7.2-11.7) fL Neut % (Auto) (50.0-75.0) % Lymph % (Auto) (20.0-40.0) % Lee % (Auto) (0.0-10.0) % Eos % (Auto) (0.0-4.0) % Baso % (Auto) (0.0-2.0) % Neut # (1.8-7.0) K/uL Lymph # (1.0-4.3) K/uL Lee # (0.0-0.8) K/uL Eos # (0.0-0.7) K/uL Baso # (0.0-0.2) K/uL Neutrophils % (Manual) (50-75) % Band Neutrophils % (0-2) % Lymphocytes % (Manual) (20-40) % Monocytes % (Manual) (0-10) % Eosinophils % (Manual) (0-4) % Platelet Estimate (NORMAL) Polychromasia Hypochromasia (manual) Anisocytosis (manual) Microcytosis (manual) Ovalocytes Puncture Site pCO2 (35-45) mm/Hg pO2 (80-100) mm/Hg HCO3 (21-28) mmol/L ABG pH (7.35-7.45) ABG Total CO2 (22-28) mmol/L ABG O2 Saturation (95-98) % ABG Base Excess (-2.0-3.0) mmol/L Daniel Test ABG Potassium (3.6-5.2) mmol/L Sodium (132-148) mmol/l Chloride (98-107) mmol/L Glucose (65-105) mg/dl Lactate (0.7-2.1) mmol/L Liter Flow Potassium (3.6-5.2) mmol/L Carbon Dioxide (22-30) mmol/L Anion Gap (10-20) BUN (7-17) mg/dL Creatinine (0.7-1.2) mg/dL Est GFR ( Amer) Est GFR (Non-Af Amer) POC Glucose (mg/dL) 96 108 (65-110) mg/dL Random Glucose (65-105) mg/dL Calcium (8.6-10.4) mg/dl Phosphorus (2.5-4.5) mg/dL Magnesium (1.6-2.3) mg/dL Total Bilirubin (0.2-1.3) mg/dL AST (14-36) U/L ALT (9-52) U/L Alkaline Phosphatase (38-126) U/L Total Protein (6.3-8.3) g/dL Albumin (3.5-5.0) g/dL Globulin (2.2-3.9) gm/dL Albumin/Globulin Ratio (1.0-2.1) Arterial Blood Potassium (3.6-5.2) mmol/L Hepatitis C Antibody Negative (NEGATIVE) Blood Type Antibody Screen 04/14/17 04/14/17 04/14/17 Range/Units 07:19 07:11 06:20 WBC (4.8-10.8) K/uL RBC (3.80-5.20) Mil/uL Hgb (11.0-16.0) g/dL Hct (34.0-47.0) % MCV (81.0-99.0) fL MCH (27.0-31.0) pg MCHC (33.0-37.0) g/dL RDW (11.5-14.5) % Plt Count (130-400) K/uL MPV (7.2-11.7) fL Neut % (Auto) (50.0-75.0) % Lymph % (Auto) (20.0-40.0) % Lee % (Auto) (0.0-10.0) % Eos % (Auto) (0.0-4.0) % Baso % (Auto) (0.0-2.0) % Neut # (1.8-7.0) K/uL Lymph # (1.0-4.3) K/uL Lee # (0.0-0.8) K/uL Eos # (0.0-0.7) K/uL Baso # (0.0-0.2) K/uL Neutrophils % (Manual) (50-75) % Band Neutrophils % (0-2) % Lymphocytes % (Manual) (20-40) % Monocytes % (Manual) (0-10) % Eosinophils % (Manual) (0-4) % Platelet Estimate (NORMAL) Polychromasia Hypochromasia (manual) Anisocytosis (manual) Microcytosis (manual) Ovalocytes Puncture Site pCO2 (35-45) mm/Hg pO2 (80-100) mm/Hg HCO3 (21-28) mmol/L ABG pH (7.35-7.45) ABG Total CO2 (22-28) mmol/L ABG O2 Saturation (95-98) % ABG Base Excess (-2.0-3.0) mmol/L Daniel Test ABG Potassium (3.6-5.2) mmol/L Sodium 133 (132-148) mmol/l Chloride 104 (98-107) mmol/L Glucose (65-105) mg/dl Lactate (0.7-2.1) mmol/L Liter Flow Potassium 3.0 L (3.6-5.2) mmol/L Carbon Dioxide 21 L (22-30) mmol/L Anion Gap 11 (10-20) BUN 44 H (7-17) mg/dL Creatinine 4.8 H (0.7-1.2) mg/dL Est GFR ( Amer) 13 Est GFR (Non-Af Amer) 10 POC Glucose (mg/dL) 98 (65-110) mg/dL Random Glucose 93 (65-105) mg/dL Calcium 7.3 L (8.6-10.4) mg/dl Phosphorus 3.8 (2.5-4.5) mg/dL Magnesium 1.8 (1.6-2.3) mg/dL Total Bilirubin 0.7 (0.2-1.3) mg/dL AST 21 (14-36) U/L ALT 27 (9-52) U/L Alkaline Phosphatase 61 (38-126) U/L Total Protein 5.0 L (6.3-8.3) g/dL Albumin 2.5 L (3.5-5.0) g/dL Globulin 2.5 (2.2-3.9) gm/dL Albumin/Globulin Ratio 1.0 (1.0-2.1) Arterial Blood Potassium (3.6-5.2) mmol/L Hepatitis C Antibody (NEGATIVE) Blood Type Antibody Screen 04/14/17 04/14/1704/14/18 Range/Units 06:18 05:28 00:24 WBC 15.4 H (4.8-10.8) K/uL RBC 2.41 L (3.80-5.20) Mil/uL Hgb 6.8 L (11.0-16.0) g/dL Hct 19.9 L (34.0-47.0) % MCV 82.7 (81.0-99.0) fL MCH 28.1 (27.0-31.0) pg MCHC 34.0 (33.0-37.0) g/dL RDW 15.6 H (11.5-14.5) % Plt Count 311 (130-400) K/uL MPV 7.9 (7.2-11.7) fL Neut % (Auto) 66.8 (50.0-75.0) % Lymph % (Auto) 13.1 L (20.0-40.0) % Lee % (Auto) 15.2 H (0.0-10.0) % Eos % (Auto) 4.6 H (0.0-4.0) % Baso % (Auto) 0.3 (0.0-2.0) % Neut # 10.3 H (1.8-7.0) K/uL Lymph # 2.0 (1.0-4.3) K/uL Lee # 2.3 H (0.0-0.8) K/uL Eos # 0.7 (0.0-0.7) K/uL Baso # 0.1 (0.0-0.2) K/uL Neutrophils % (Manual) (50-75) % Band Neutrophils % (0-2) % Lymphocytes % (Manual) (20-40) % Monocytes % (Manual) (0-10) % Eosinophils % (Manual) (0-4) % Platelet Estimate (NORMAL) Polychromasia Hypochromasia (manual) Anisocytosis (manual) Microcytosis (manual) Ovalocytes Puncture Site Rr pCO2 46 H (35-45) mm/Hg pO2 87 (80-100) mm/Hg HCO3 22.3 (21-28) mmol/L ABG pH 7.31 L (7.35-7.45) ABG Total CO2 24.6 (22-28) mmol/L ABG O2 Saturation 98.8 H (95-98) % ABG Base Excess -3.3 L (-2.0-3.0) mmol/L Daniel Test Pos ABG Potassium 3.0 L (3.6-5.2) mmol/L Sodium 141.0 (132-148) mmol/l Chloride 110.0 H (98-107) mmol/L Glucose 93 (65-105) mg/dl Lactate 0.4 L (0.7-2.1) mmol/L Liter Flow 3.0 Potassium (3.6-5.2) mmol/L Carbon Dioxide (22-30) mmol/L Anion Gap (10-20) BUN (7-17) mg/dL Creatinine (0.7-1.2) mg/dL Est GFR ( Amer) Est GFR (Non-Af Amer) POC Glucose (mg/dL) 76 (65-110) mg/dL Random Glucose (65-105) mg/dL Calcium (8.6-10.4) mg/dl Phosphorus (2.5-4.5) mg/dL Magnesium (1.6-2.3) mg/dL Total Bilirubin (0.2-1.3) mg/dL AST (14-36) U/L ALT (9-52) U/L Alkaline Phosphatase (38-126) U/L Total Protein (6.3-8.3) g/dL Albumin (3.5-5.0) g/dL Globulin (2.2-3.9) gm/dL Albumin/Globulin Ratio (1.0-2.1) Arterial Blood Potassium 3.0 L (3.6-5.2) mmol/L Hepatitis C Antibody (NEGATIVE) Blood Type Antibody Screen 04/13/17 04/12/17 Range/Units 17:02 16:20 WBC (4.8-10.8) K/uL RBC (3.80-5.20) Mil/uL Hgb (11.0-16.0) g/dL Hct (34.0-47.0) % MCV (81.0-99.0) fL MCH (27.0-31.0) pg MCHC (33.0-37.0) g/dL RDW (11.5-14.5) % Plt Count (130-400) K/uL MPV (7.2-11.7) fL Neut % (Auto) (50.0-75.0) % Lymph % (Auto) (20.0-40.0) % Lee % (Auto) (0.0-10.0) % Eos % (Auto) (0.0-4.0) % Baso % (Auto) (0.0-2.0) % Neut # (1.8-7.0) K/uL Lymph # (1.0-4.3) K/uL Lee # (0.0-0.8) K/uL Eos # (0.0-0.7) K/uL Baso # (0.0-0.2) K/uL Neutrophils % (Manual) 82 H (50-75) % Band Neutrophils % 1 (0-2) % Lymphocytes % (Manual) 9 L (20-40) % Monocytes % (Manual) 7 (0-10) % Eosinophils % (Manual) 1 (0-4) % Platelet Estimate Normal (NORMAL) Polychromasia Slight Hypochromasia (manual) Moderate Anisocytosis (manual) Slight Microcytosis (manual) Slight Ovalocytes Slight Puncture Site pCO2 (35-45) mm/Hg pO2 (80-100) mm/Hg HCO3 (21-28) mmol/L ABG pH (7.35-7.45) ABG Total CO2 (22-28) mmol/L ABG O2 Saturation (95-98) % ABG Base Excess (-2.0-3.0) mmol/L Daniel Test ABG Potassium (3.6-5.2) mmol/L Sodium (132-148) mmol/l Chloride (98-107) mmol/L Glucose (65-105) mg/dl Lactate (0.7-2.1) mmol/L Liter Flow Potassium (3.6-5.2) mmol/L Carbon Dioxide (22-30) mmol/L Anion Gap (10-20) BUN (7-17) mg/dL Creatinine (0.7-1.2) mg/dL Est GFR ( Amer) Est GFR (Non-Af Amer) POC Glucose (mg/dL) (65-110) mg/dL Random Glucose (65-105) mg/dL Calcium (8.6-10.4) mg/dl Phosphorus (2.5-4.5) mg/dL Magnesium (1.6-2.3) mg/dL Total Bilirubin (0.2-1.3) mg/dL AST (14-36) U/L ALT (9-52) U/L Alkaline Phosphatase (38-126) U/L Total Protein (6.3-8.3) g/dL Albumin (3.5-5.0) g/dL Globulin (2.2-3.9) gm/dL Albumin/Globulin Ratio (1.0-2.1) Arterial Blood Potassium (3.6-5.2) mmol/L Hepatitis C Antibody (NEGATIVE) Blood Type O POSITIVE Antibody Screen Negative Laboratory Results - last 24 hr 04/12/17 04/13/17 04/14/17 16:20 17:02 00:24 WBC RBC Hgb Hct MCV MCH MCHC RDW Plt Count MPV Neut % (Auto) Lymph % (Auto) Lee % (Auto) Eos % (Auto) Baso % (Auto) Neut # Lymph # Lee # Eos # Baso # Neutrophils % (Manual) 82 H Band Neutrophils % 1 Lymphocytes % (Manual) 9 L Monocytes % (Manual) 7 Eosinophils % (Manual) 1 Platelet Estimate Normal Polychromasia Slight Hypochromasia (manual) Moderate Anisocytosis (manual) Slight Microcytosis (manual) Slight Ovalocytes Slight Puncture Site pCO2 pO2 HCO3 ABG pH ABG Total CO2 ABG O2 Saturation ABG Base Excess Daniel Test ABG Potassium Sodium Chloride Glucose Lactate Liter Flow Potassium Carbon Dioxide Anion Gap BUN Creatinine Est GFR ( Amer) Est GFR (Non-Af Amer) POC Glucose (mg/dL) 76 Random Glucose Calcium Phosphorus Magnesium Total Bilirubin AST ALT Alkaline Phosphatase Total Protein Albumin Globulin Albumin/Globulin Ratio Arterial Blood Potassium Hepatitis C Antibody Blood Type O POSITIVE Antibody Screen Negative 04/14/17 04/14/17 04/14/17 05:28 06:18 06:20 WBC 15.4 H RBC 2.41 L Hgb 6.8 L Hct 19.9 L MCV 82.7 MCH 28.1 MCHC 34.0 RDW 15.6 H Plt Count 311 MPV 7.9 Neut % (Auto) 66.8 Lymph % (Auto) 13.1 L Lee % (Auto) 15.2 H Eos % (Auto) 4.6 H Baso % (Auto) 0.3 Neut # 10.3 H Lymph # 2.0 Lee # 2.3 H Eos # 0.7 Baso # 0.1 Neutrophils % (Manual) Band Neutrophils % Lymphocytes % (Manual) Monocytes % (Manual) Eosinophils % (Manual) Platelet Estimate Polychromasia Hypochromasia (manual) Anisocytosis (manual) Microcytosis (manual) Ovalocytes Puncture Site Rr pCO2 46 H pO2 87 HCO3 22.3 ABG pH 7.31 L ABG Total CO2 24.6 ABG O2 Saturation 98.8 H ABG Base Excess -3.3 L Daniel Test Pos ABG Potassium 3.0 L Sodium 141.0 133 Chloride 110.0 H 104 Glucose 93 Lactate 0.4 L Liter Flow 3.0 Potassium 3.0 L Carbon Dioxide 21 L Anion Gap 11 BUN 44 H Creatinine 4.8 H Est GFR ( Amer) 13 Est GFR (Non-Af Amer) 10 POC Glucose (mg/dL) Random Glucose 93 Calcium 7.3 L Phosphorus Magnesium Total Bilirubin 0.7 AST 21 ALT 27 Alkaline Phosphatase 61 Total Protein 5.0 L Albumin 2.5 L Globulin 2.5 Albumin/Globulin Ratio 1.0 Arterial Blood Potassium 3.0 L Hepatitis C Antibody Blood Type Antibody Screen 04/14/17 04/14/17 04/14/17 07:11 07:19 11:41 WBC RBC Hgb Hct MCV MCH MCHC RDW Plt Count MPV Neut % (Auto) Lymph % (Auto) Lee % (Auto) Eos % (Auto) Baso % (Auto) Neut # Lymph # Lee # Eos # Baso # Neutrophils % (Manual) Band Neutrophils % Lymphocytes % (Manual) Monocytes % (Manual) Eosinophils % (Manual) Platelet Estimate Polychromasia Hypochromasia (manual) Anisocytosis (manual) Microcytosis (manual) Ovalocytes Puncture Site pCO2 pO2 HCO3 ABG pH ABG Total CO2 ABG O2 Saturation ABG Base Excess Daniel Test ABG Potassium Sodium Chloride Glucose Lactate Liter Flow Potassium Carbon Dioxide Anion Gap BUN Creatinine Est GFR ( Amer) Est GFR (Non-Af Amer) POC Glucose (mg/dL) 98 108 Random Glucose Calcium Phosphorus 3.8 Magnesium 1.8 Total Bilirubin AST ALT Alkaline Phosphatase Total Protein Albumin Globulin Albumin/Globulin Ratio Arterial Blood Potassium Hepatitis C Antibody Blood Type Antibody Screen 04/14/17 04/14/17 11:56 17:39 WBC RBC Hgb Hct MCV MCH MCHC RDW Plt Count MPV Neut % (Auto) Lymph % (Auto) Lee % (Auto) Eos % (Auto) Baso % (Auto) Neut # Lymph # Lee # Eos # Baso # Neutrophils % (Manual) Band Neutrophils % Lymphocytes % (Manual) Monocytes % (Manual) Eosinophils % (Manual) Platelet Estimate Polychromasia Hypochromasia (manual) Anisocytosis (manual) Microcytosis (manual) Ovalocytes Puncture Site pCO2 pO2 HCO3 ABG pH ABG Total CO2 ABG O2 Saturation ABG Base Excess Daniel Test ABG Potassium Sodium Chloride Glucose Lactate Liter Flow Potassium Carbon Dioxide Anion Gap BUN Creatinine Est GFR ( Amer) Est GFR (Non-Af Amer) POC Glucose (mg/dL) 96 Random Glucose Calcium Phosphorus Magnesium Total Bilirubin AST ALT Alkaline Phosphatase Total Protein Albumin Globulin Albumin/Globulin Ratio Arterial Blood Potassium Hepatitis C Antibody Negative Blood Type Antibody Screen Critical Care Progress Note - Nutrition Nutrition: Nutrition Category Date Time Status NPO Diet [DIET] Diets 04/08/17 Dinner Active Assessment/Plan (1) Acute pancreatitis Current Visit: Yes Status: Acute Attending/Attestation - Attestation I have personally seen and examined this patient.: Yes I have fully participated in the care of the patient.: Yes I have reviewed all pertinent clinical information: Yes Notes (Text): 04/14/17 17:56 I have seen and examined the patient. Medical records, lab studies, and imaging were reviewed by me and a management plan was formulated on multidisciplinary rounds with resident Dr. Smith. I agree with their documented assessment and plan. Patient is now being treated for ulcerative gastritis, protonix drip. Waiting for bloody NGT output to stop and will then feed. In the interim will start TPN. Pancreatitis is resolving, and hopefully concomitant ileus also resolving. Patient continuing dialysis. Critical Care Time 35 minutes. Multi-disciplinary rounds were performed with house staff, nursing, speech therapy, respiratory therapy, pharmacy and nutrition with integrated input from the primary team/attending and other consulting services. The documented time is cumulative and includes review of patient data/exams/labs/chart review and examination of the patient on rounds and throughout the day; time is exclusive of any procedures or teaching time.
--- NOTE | 2017-04-14 08:33 | CP.PCM.PN ---
Subjective - Date & Time of Evaluation Date of Evaluation: 04/14/17 Time of Evaluation: 07:00 - Subjective Subjective: Surgical Progress Note: Patient was seen and examined at bedside in the AM. Per nurse the patient continues to put out red sanguinous blood fromt NGT about 200cc overnight and 500cc during the day shift 04/13/17. Per nurse patient has received 3 units of PRBC yesterday and will be receiving another unit of PRBC today 04/14/17 during dialysis. Tachycardia worsens with agitation. Patient is non-verbal. Objective - Vital Signs/Intake and Output Vital Signs (last 24 hours): Temp Pulse Resp BP Pulse Ox 98.4 F 116 H 11 L 113/69 99 04/14/17 03:00 04/14/17 06:01 04/14/17 06:01 04/14/17 06:01 04/14/17 06:01 Intake and Output: 04/14/17 04/14/17 06:59 18:59 Intake Total 2624 Output Total 435 Balance 2189 - Medications Medications: Current Medications Acetaminophen (Tylenol 325 Mg Supp) 325 mg MO Q4 PRN PRN Reason: Fever >100.4 F Last Admin: 04/13/17 04:38 Dose: 325 mg Ascorbic Acid (Vitamin C 500 Mg Tab) 500 mg PO DAILY [facility] Last Admin: 04/13/17 09:50 Dose: 500 mg Haloperidol Lactate (Haldol) 1 mg IVP BID PRN PRN Reason: Agitation Last Admin: 04/12/17 22:21 Dose: 1 mg Hydromorphone HCl (Dilaudid) 0.5 mg IVP Q4H PRN PRN Reason: Pain, severe (8-10) Last Admin: 04/14/17 05:13 Dose: 0.5 mg Lactated Ringer's (Lactated Ringer's) 1,000 mls @ 100 mls/hr IV .Q10H AGUSTIN Last Admin: 04/13/17 20:00 Dose: 100 mls/hr Piperacillin Sod/Tazobactam Sod (Zosyn 2.25 Gm Iv Premix) 2.25 gm in 50 mls @ 100 mls/hr IVPB Q8H AGUSTIN Last Admin: 04/14/17 02:00 Dose: 100 mls/hr Pantoprazole Sodium 80 mg/ (Sodium Chloride) 100 mls @ 10 mls/hr IVPB .Q10H [facility] PRN Reason: 8 MG/HR Last Admin: 04/13/17 22:53 Dose: 10 mls/hr Sodium Chloride 40 meq/Magnesium Sulfate 6 meq/Calcium Gluconate 4.5 meq/ Chromium/Copper/Manganese/Zinc 1 ml/ Multivitamins/Vitamin C 10 ml/ Amino Acids 1,032.1552 mls @ 42 mls/hr IV .Q24H [facility] Stop: 04/14/17 17:59 Last Admin: 04/13/17 18:52 Dose: 42 mls/hr Potassium Chloride (Potassium Chloride 20 Meq/100 Ml) 20 meq in 100 mls @ 50 mls/hr IVPB Q2 [facility] Stop: 04/14/17 13:59 Lorazepam (Ativan) 0.5 mg IVP Q3H PRN PRN Reason: Anxiety Last Admin: 04/14/17 05:12 Dose: 0.5 mg Metoclopramide HCl (Reglan) 5 mg IVP Q6 [facility] Last Admin: 04/14/17 05:01 Dose: 5 mg Ondansetron HCl (Zofran Inj) 4 mg IVP Q6H PRN PRN Reason: Nausea/Vomiting Last Admin: 04/11/17 21:39 Dose: 4 mg Saccharomyces Boulardii (Florastor) 250 mg PO BID [facility] [place] Last Admin: 04/13/17 18:41 Dose: Not Given Thiamine HCl (Vitamin B1 Tab) 100 mg PO DAILY [facility] Last Admin: 04/13/17 09:50 Dose: 100 mg - Labs Labs: 04/14/17 06:18 04/14/17 06:20 PT 15.8 SECONDS (9.7-12.2) H 04/13/17 06:37 INR 1.4 04/13/17 06:37 APTT 30 SECONDS (21-34) 04/08/17 12:45 - Constitutional Appears: Chronically Ill - Head Exam Head Exam: ATRAUMATIC, NORMAL INSPECTION - Eye Exam Eye Exam: Normal appearance - Respiratory Exam Respiratory Exam: NORMAL BREATHING PATTERN - Cardiovascular Exam Cardiovascular Exam: Tachycardia, +S1, +S2 - GI/Abdominal Exam GI & Abdominal Exam: Soft - Extremities Exam Extremities Exam: Normal Inspection - Neurological Exam Neurological Exam: Alert, Awake - Skin Skin Exam: Normal Color, Warm Assessment and Plan - Assessment and Plan (Free Text) Assessment: 36 year old female with gastric motility disorder Upper GI endoscopy (04/13/17): diffuse hemorrhagic mucosa with stigmata of recent bleeding was found in the gastric fundus and in the gastric body. Large portion of adherent blood clot present in the gastric body. - Being followed by GI - Patient to have a repeat EGD today 04/14/17 No immediate surgical intervention at this time Will continue to follow clinically Suni Wade PGY-1
--- NOTE | 2017-04-14 08:44 | CP.PCM.PN ---
<Katheryn Silveira - Last Filed: 04/14/17 09:05> Subjective - Date & Time of Evaluation Date of Evaluation: 04/14/17 Time of Evaluation: 06:50 - Subjective Subjective: GI Fellow PGY4 Progress Note Pt seen and evaluated at bedside, pt nonverbal but arousable and becomes very agitated and in pain/moaning. Per nursing pt had 200cc bloody outpt via NGT to suction. One small smear green BM, no melena or hematochezia. Pt still tachycardic but HR and BP improved from yesterday. ROS: A 12pt ROS was unable to be obtained, pt nonverbal Objective - Vital Signs/Intake and Output Vital Signs (last 24 hours): Temp Pulse Resp BP Pulse Ox 98.4 F 116 H 11 L 113/69 99 04/14/17 03:00 04/14/17 06:01 04/14/17 06:01 04/14/17 06:01 04/14/17 06:01 Intake and Output: 04/14/17 04/14/17 06:59 18:59 Intake Total 2624 Output Total 435 Balance 2189 - Medications Medications: Current Medications Acetaminophen (Tylenol 325 Mg Supp) 325 mg [place] Q4 PRN PRN Reason: Fever >100.4 F Last Admin: 04/13/17 04:38 Dose: 325 mg Ascorbic Acid (Vitamin C 500 Mg Tab) 500 mg PO DAILY [facility] Last Admin: 04/13/17 09:50 Dose: 500 mg Haloperidol Lactate (Haldol) 1 mg IVP BID PRN PRN Reason: Agitation Last Admin: 04/12/17 22:21 Dose: 1 mg Hydromorphone HCl (Dilaudid) 0.5 mg IVP Q4H PRN PRN Reason: Pain, severe (8-10) Last Admin: 04/14/17 05:13 Dose: 0.5 mg Lactated Ringer's (Lactated Ringer's) 1,000 mls @ 100 mls/hr IV .Q10H [facility] Last Admin: 04/13/17 20:00 Dose: 100 mls/hr Piperacillin Sod/Tazobactam Sod (Zosyn 2.25 Gm Iv Premix) 2.25 gm in 50 mls @ 100 mls/hr IVPB Q8H [facility] Last Admin: 04/14/17 02:00 Dose: 100 mls/hr Pantoprazole Sodium 80 mg/ (Sodium Chloride) 100 mls @ 10 mls/hr IVPB .Q10H [facility] PRN Reason: 8 MG/HR Last Admin: 04/13/17 22:53 Dose: 10 mls/hr Sodium Chloride 40 meq/Magnesium Sulfate 6 meq/Calcium Gluconate 4.5 meq/ Chromium/Copper/Manganese/Zinc 1 ml/ Multivitamins/Vitamin C 10 ml/ Amino Acids 1,032.1552 mls @ 42 mls/hr IV .Q24H [facility] Stop: 04/14/17 17:59 Last Admin: 04/13/17 18:52 Dose: 42 mls/hr Potassium Chloride (Potassium Chloride 20 Meq/100 Ml) 20 meq in 100 mls @ 50 mls/hr IVPB Q2 [facility] Stop: 04/14/17 13:59 Lorazepam (Ativan) 0.5 mg IVP Q3H PRN PRN Reason: Anxiety Last Admin: 04/14/17 05:12 Dose: 0.5 mg Metoclopramide HCl (Reglan) 5 mg IVP Q6 [facility] Last Admin: 04/14/17 05:01 Dose: 5 mg Ondansetron HCl (Zofran Inj) 4 mg IVP Q6H PRN PRN Reason: Nausea/Vomiting Last Admin: 04/11/17 21:39 Dose: 4 mg Saccharomyces Boulardii (Florastor) 250 mg PO BID [facility] Last Admin: 04/13/17 18:41 Dose: Not Given Thiamine HCl (Vitamin B1 Tab) 100 mg PO DAILY [facility] Last Admin: 04/13/17 09:50 Dose: 100 mg - Labs Labs: 04/14/17 06:18 04/14/17 06:20 PT 15.8 SECONDS (9.7-12.2) H 04/13/17 06:37 INR 1.4 04/13/17 06:37 APTT 30 SECONDS (21-34) 04/08/17 12:45 - Constitutional Appears: In Acute Distress, Chronically Ill - Head Exam Head Exam: ATRAUMATIC, NORMAL INSPECTION, NORMOCEPHALIC - Eye Exam Eye Exam: EOMI, Normal appearance, PERRL Pupil Exam: PERRL - ENT Exam ENT Exam: Mucous Membranes Dry Additional comments: NGT - Neck Exam Neck Exam: Full ROM - Respiratory Exam Respiratory Exam: Rhonchi, NORMAL BREATHING PATTERN - Cardiovascular Exam Cardiovascular Exam: Tachycardia - GI/Abdominal Exam GI & Abdominal Exam: Soft, Tenderness, Normal Bowel Sounds. absent: Distended, Guarding - Rectal Exam Rectal Exam: Deferred - Extremities Exam Extremities Exam: Full ROM, Normal Inspection - Neurological Exam Neurological Exam: Alert, Awake - Psychiatric Exam Psychiatric exam: Agitated - Skin Skin Exam: Dry, Intact, Pallor, Warm Assessment and Plan - Assessment and Plan (Free Text) Assessment: Alondra Rivera is a 37F w/ hx of Schizophrenia, mental disability who presents to the hospital due to abd pain diarrhea. She was found to have acute pancreatitis and severe gastric distention with retained food which markedly improved after NG placement. Subsequently, her condition again worsened after a few days, after resuming diet. She also has presumed sepsis of unknown source. Renal function is worsening with Cr rising and BUN s/p HD. 1. Acute Upper GI Bleed 2. Anemia 3. Sepsis 4. Hemorrhagic/ischemic gastropathy 5. Marked stomach distention (improved) 6. Complicated Acute pancreatitis, etiology unknown 7. Loculated fluid collection, etiology unknown, abscess vs psuedocyst 8. Renal failure s/p HD 9. Afib now sinus tachy Plan: -Continue supportive care with pain control -Continue NPO, no Tube Feeds, on PPN -NGT outpt was 200ml last night, bloody -s/p urgent EGD for UGI, signs of hemorrhagic mucosa concern for ischemic gastropathy, adherent clot in stomach unable to remove despite aggressive irrigation -Continue PPI drip and Reglan to help clear stomach of blood/clot -Will consider repeating EGD to find source for possible bleed -Continue aggressive resusitation and Keep hgb > 7, s/p 3U PRBCs, plan for more blood today with HD -CT A/P Angio to r/o ischemic/embolic cause for hemorrhagic mucosa in stomach with hx of Afib during hospitalization, preliminary read with no signs of arterial occlusion, pneumatosis of gastric wall and emphysemoutous changes -Continue antibiotics as per ID, WBC decreasing, afebrile, blood/urine cx negative -Continue IVF, IGG4 pendng, TG normal, no gallstones on imaging, CBD normal, LFTs normal, abd us neg -Stool studies to r/o infectious etiology pending -Renal failure, oliguric, s/p HD with improved renal function -Will continue to follow closely <Rivas Lau - Last Filed: 04/14/17 14:42> Objective - Vital Signs/Intake and Output Vital Signs (last 24 hours): Temp Pulse Resp BP Pulse Ox 98.2 F 107 H 19 120/88 99 04/14/17 13:35 04/14/17 13:35 04/14/17 13:35 04/14/17 13:45 04/14/17 12:24 Intake and Output: 04/14/17 04/14/17 06:59 18:59 Intake Total 2624 1479 Output Total 435 0 Balance 2189 1479 - Medications Medications: Current Medications Acetaminophen (Tylenol 325 Mg Supp) 325 mg MA Q4 PRN PRN Reason: Fever >100.4 F Last Admin: 04/13/17 04:38 Dose: 325 mg Ascorbic Acid (Vitamin C 500 Mg Tab) 500 mg PO DAILY [facility] Last Admin: 04/14/17 10:00 Dose: Not Given Haloperidol Lactate (Haldol) 1 mg IVP BID PRN PRN Reason: Agitation Last Admin: 04/12/17 22:21 Dose: 1 mg Hydromorphone HCl (Dilaudid) 0.5 mg IVP Q4H PRN PRN Reason: Pain, severe (8-10) Last Admin: 04/14/17 13:39 Dose: 0.5 mg Piperacillin Sod/Tazobactam Sod (Zosyn 2.25 Gm Iv Premix) 2.25 gm in 50 mls @ 100 mls/hr IVPB Q8H [facility] Last Admin: 04/14/17 02:00 Dose: 100 mls/hr Pantoprazole Sodium 80 mg/ (Sodium Chloride) 100 mls @ 10 mls/hr IVPB .Q10H [facility] PRN Reason: 8 MG/HR Last Admin: 04/14/17 11:30 Dose: 10 mls/hr Sodium Chloride 40 meq/Magnesium Sulfate 6 meq/Calcium Gluconate 4.5 meq/ Chromium/Copper/Manganese/Zinc 1 ml/ Multivitamins/Vitamin C 10 ml/ Amino Acids 1,032.1552 mls @ 42 mls/hr IV .Q24H [facility] Stop: 04/14/17 17:59 Last Admin: 04/13/17 18:52 Dose: 42 mls/hr Chromium/Copper/Manganese/Zinc 1 ml/ Multivitamins/Vitamin C 10 ml/ Heparin Sodium ( Porcine) 1,000 units/ Amino Acids/Electrolytes/Dextrose 1,012 mls @ 63 mls/hr IV .Q16H4M [facility] Stop: 04/15/17 10:03 Fat Emulsion Intravenous (Intralipid 20%) 250 mls @ 42 mls/hr IV QOD [facility] Stop: 04/14/17 23:58 Lorazepam (Ativan) 0.5 mg IVP Q3H PRN PRN Reason: Anxiety Last Admin: 04/14/17 05:12 Dose: 0.5 mg Metoclopramide HCl (Reglan) 5 mg IVP Q6 [facility] Last Admin: 04/14/17 13:45 Dose: 5 mg Ondansetron HCl (Zofran Inj) 4 mg IVP Q6H PRN PRN Reason: Nausea/Vomiting Last Admin: 04/11/17 21:39 Dose: 4 mg Saccharomyces Boulardii (Florastor) 250 mg PO BID [facility] Last Admin: 04/14/17 13:41 Dose: Not Given Thiamine HCl (Vitamin B1 Tab) 100 mg PO DAILY [facility] Last Admin: 04/14/17 10:00 Dose: Not Given - Labs Labs: 04/14/17 06:18 04/14/17 06:20 PT 15.8 SECONDS (9.7-12.2) H 04/13/17 06:37 INR 1.4 04/13/17 06:37 APTT 30 SECONDS (21-34) 04/08/17 12:45 Attending/Attestation - Attestation I have personally seen and examined this patient.: Yes I have fully participated in the care of the patient.: Yes I have reviewed all pertinent clinical information, including history, physical exam and plan: Yes Notes (Text): 04/14/17 14:34 I have seen and examined patient with GI fellow. She remains in critical care unit, arousable though agitated at times. Patient with continued bloody output via NGT, approximately 200 cc output this morning. There is no reported abdominal pain, fever/chills. Review of vitals from today shows tachycardia. Schizophrenia, non-verbal at baseline Acute pancreatitis - resolving Loculated abdominal fluid collection Acute renal failure with initiation of HD on this hospitalization Anemia, hematemesis s/p EGD yesterday showing diffuse gastric ulceration with large blood clot along greater curvature of stomach, normal duodenal mucosa CT angiography reviewed by me showing improvement in emphysematous gastritis, patent vasculature - NPO, continue with PPN - Continue with PPI infusion therapy - Continue to monitor H/H, patient to receive PRBC transfusion at HD today - Continue with antibiotic therapy - Consider rheumatologic evaluation for vasculitis given multi-organ system failure - Would consider repeat EGD if continued bloody NGT output noted, however if etiology is truly ischemic then surgical intervention may be required - Overall prognosis remains guarded, will continue to monitor patient clinical course
--- NOTE | 2017-04-14 08:56 | CT ---
PROCEDURE: CT Abdomen and Pelvis with contrast HISTORY: evaluation of abdomen for ischemic changes COMPARISON: 04/08/2017 CT abdomen and pelvis. TECHNIQUE: Contrast dose: 100 cc Visipaque 320. Radiation dose: Total exam DLP = 493.60 mGy-cm. This CT exam was performed using one or more of the following dose reduction techniques: Automated exposure control, adjustment of the mA and/or kV according to patient size, and/or use of iterative reconstruction technique. FINDINGS: LOWER THORAX: Persistent left pleural effusion and compressive atelectasis. LIVER: Unremarkable. No gross lesion or ductal dilatation. GALLBLADDER AND BILE DUCTS: Unremarkable. PANCREAS: Unremarkable. No gross lesion or ductal dilatation. SPLEEN: Unremarkable. ADRENALS: Unremarkable. No mass. KIDNEYS AND URETERS: Contrast-enhancing characteristics of the kidney suggest a component of either medical renal disease or acute renal failure. VASCULATURE: Unremarkable. No aortic aneurysm. No evidence of aneurysmal dilatation. Unremarkable visceral branch vessels as visualized. BOWEL: Emphysematous gastritis, pneumatosis apparent on the prior study has improved considerably. The stomach remains distended despite the presence of an indwelling nasogastric tube. The tube should be advanced for maximum effectiveness. APPENDIX: Normal appendix. PERITONEUM: Persistent intra-abdominal ascites, low volume. No free air identified. LYMPH NODES: Unremarkable. No enlarged lymph nodes. BLADDER: An indwelling Tovar catheter identified. The bladder wall is thickened and there is focal air within the bladder wall. Emphysematous cystitis should be considered. REPRODUCTIVE: Unremarkable. BONES: No acute fracture. OTHER FINDINGS: None. IMPRESSION: 1. Substantial decrease in air within the gastric wall. Suboptimal positioning of the nasogastric tube. This should be advanced at least 5 cm to improve effectiveness and draining gastric contents. 2. Despite the presence of an indwelling Tovar catheter which has drained the urinary bladder the urinary bladder wall is thickened and there is mural air suggesting emphysematous cystitis. Additional benign and/or incidental findings described above. Concordant results (preliminary interpretation) provided by [employer]. Procedure Completed: 16:36 Preliminary ([employer]) Report: Dictated and Authenticated: 18:21 Final Interpretation: 08:54 Michelle .
[2017-04-14] MEDS: Lactated Ringer's 1,000 ML IV SCH ×2 (09:40→13:41)
[2017-04-14] MEDS: Pantoprazole 80 MG in Sodium Chloride 0.9% 100 ML IVPB SCH ×3 (11:30→21:12)
[2017-04-14] MEDS: Saccharomyces Boulardi 250 mg Cap PO SCH ×2 (13:41→17:07)
--- NOTE | 2017-04-14 14:56 | CARD ---
APPROVED REPORT EKG Measurement Heart [id number] <Conclusion> Sinus tachycardia with Baseline artifact Abnormal ECG
[2017-04-14] MEDS ORDERED: TPN # 1 IV SCH (18:00)
[2017-04-14] MEDS ORDERED: Fat Emulsion 20% IV 250 ML IV SCH (18:00)
[2017-04-14 20:20] LABS: BASO # 0.2 K/uL (0.0-0.2); BASO % 1.3 % (0.0-2.0); EOS # 0.6 K/uL (0.0-0.7); EOS % 4.5 % (0.0-4.0); LYMPH # 0.8 K/uL (1.0-4.3); LYMPH % 5.8 % (20.0-40.0); MEAN CELL VOLUME 82.7 fL (81.0-99.0); MEAN CORPUSCULAR HEMOGLOBIN 29.3 pg (27.0-31.0); MEAN CORPUSCULAR HGB CONC 35.4 g/dL (33.0-37.0); MEAN PLATELET VOLUME 7.6 fL (7.2-11.7); MONO # 2.2 K/uL (0.0-0.8); MONO % 15.5 % (0.0-10.0); NEUT # 10.1 K/uL (1.8-7.0); NEUT % 72.9 % (50.0-75.0); NRBC % 0.1 % (0.0-2.0); PLATELET COUNT 294 K/uL (130-400); RBC 3.47 Mil/uL (3.80-5.20); WHITE BLOOD COUNT 13.9 K/uL (4.8-10.8)
[2017-04-14 20:35] LABS: HEMOGLOBIN 10.2 g/dL (11.0-16.0)
[2017-04-14 21:14] LABS: ANISOCYTOSIS SLIGHT; BANDS 3 % (0-2); EOSINOPHIL 3 % (0-4); HYPOCHROMIC SLIGHT; PLATELET ESTIMATE NORMAL (NORMAL); POIKILOCYTOSIS SLIGHT; POLYCHROMIC SLIGHT; TOTAL CELLS COUNTED 100
[2017-04-14 21:15] LABS: MONOCYTE 15 % (0-10)
[2017-04-14 21:16] LABS: LYMPHOCYTE 7 % (20-40); NEUTROPHIL 72 % (50-75)
--- NOTE | 2017-04-14 22:00 | CP.PCM.PN ---
Subjective - Date & Time of Evaluation Date of Evaluation: 04/14/17 Time of Evaluation: 07:40 - Subjective Subjective: Patient seen and evaluated Tachycardia Off cardizem drip Physical Exam - Constitutional Appears: In Acute Distress, Agitated, Chronically Ill - Head Exam Head Exam: ATRAUMATIC, NORMAL INSPECTION - Eye Exam Eye Exam: EOMI, Normal appearance - Neck Exam Neck exam: Positive for: Normal Inspection. Negative for: Tenderness - Respiratory Exam Respiratory Exam: Decreased Breath Sounds, NORMAL BREATHING PATTERN - Cardiovascular Exam Cardiovascular Exam: Tachycardia, +S1 - GI/Abdominal Exam GI & Abdominal Exam: Soft, Tenderness - Extremities Exam Extremities exam: Positive for: normal inspection. Negative for: tenderness - Neurological Exam Neurological exam: Altered, CN II-XII Intact - Skin Skin Exam: Dry, Warm Objective - Vital Signs/Intake and Output Vital Signs (last 24 hours): Temp Pulse Resp BP Pulse Ox 98.7 F 127 H 17 133/100 H 97 04/14/17 19:00 04/14/17 19:00 04/14/17 19:00 04/14/17 18:16 04/14/17 19:00 Intake and Output: 04/14/17 04/15/17 18:59 06:59 Intake Total 2683 94 Output Total 750 0 Balance 1933 94 - Medications Medications: Current Medications Acetaminophen (Tylenol 325 Mg Supp) 325 mg [place] Q4 PRN PRN Reason: Fever >100.4 F Last Admin: 04/13/17 04:38 Dose: 325 mg Ascorbic Acid (Vitamin C 500 Mg Tab) 500 mg PO DAILY [facility] Last Admin: 04/14/17 10:00 Dose: Not Given Haloperidol Lactate (Haldol) 1 mg IVP BID PRN PRN Reason: Agitation Last Admin: 04/12/17 22:21 Dose: 1 mg Hydromorphone HCl (Dilaudid) 0.5 mg IVP Q4H PRN PRN Reason: Pain, severe (8-10) Last Admin: 04/14/17 18:15 Dose: 0.5 mg Piperacillin Sod/Tazobactam Sod (Zosyn 2.25 Gm Iv Premix) 2.25 gm in 50 mls @ 100 mls/hr IVPB Q8H [facility] Last Admin: 04/14/17 17:15 Dose: 100 mls/hr Pantoprazole Sodium 80 mg/ (Sodium Chloride) 100 mls @ 10 mls/hr IVPB .Q10H [facility] PRN Reason: 8 MG/HR Last Admin: 04/14/17 21:12 Dose: 10 mls/hr Chromium/Copper/Manganese/Zinc 1 ml/ Multivitamins/Vitamin C 10 ml/ Heparin Sodium ( Porcine) 1,000 units/ Amino Acids/Electrolytes/Dextrose 1,012 mls @ 63 mls/hr IV .Q16H4M [facility] Stop: 04/15/17 10:03 Last Admin: 04/14/17 17:21 Dose: 63 mls/hr Fat Emulsion Intravenous (Intralipid 20%) 250 mls @ 42 mls/hr IV QOD [facility] Stop: 04/14/17 23:58 Last Admin: 04/14/17 17:23 Dose: 42 mls/hr Chromium/Copper/Manganese/Zinc 1 ml/ Heparin Sodium (Porcine ) 1,000 units/ Amino Acids/Electrolytes/Dextrose 1,002 mls @ 63 mls/hr IV .[id number] [facility] Stop: 04/15/17 18:00 Lorazepam (Ativan) 0.5 mg IVP Q3H PRN PRN Reason: Anxiety Last Admin: 04/14/17 21:07 Dose: 0.5 mg Metoclopramide HCl (Reglan) 5 mg IVP Q6 [facility] Last Admin: 04/14/17 17:15 Dose: 5 mg Ondansetron HCl (Zofran Inj) 4 mg IVP Q6H PRN PRN Reason: Nausea/Vomiting Last Admin: 04/11/17 21:39 Dose: 4 mg Saccharomyces Boulardii (Florastor) 250 mg PO BID [facility] Last Admin: 04/14/17 17:07 Dose: Not Given Thiamine HCl (Vitamin B1 Tab) 100 mg PO DAILY [facility] Last Admin: 04/14/17 10:00 Dose: Not Given - Labs Labs: 04/14/17 20:14 04/14/17 06:20 PT 15.8 SECONDS (9.7-12.2) H 04/13/17 06:37 INR 1.4 04/13/17 06:37 APTT 30 SECONDS (21-34) 04/08/17 12:45 Assessment and Plan - Assessment and Plan (Free Text) Assessment: Assessment & Plan - Assessment and Plan (Free Text) Assessment: Tachycardia JIMBO Acute pancreatitis Volume depletion Sepsis syndrome Intra-abdominal fluid collection- possible abscess Plan: ECHO: Normal EF and no valvular issues Tachycardia most likely due to medical issues Cardizem drip/PO as needed
[2017-04-15] MEDS: Piperacill/Tazo 2.25gm in Dex 2.25 GM/50 ML BAG IVPB SCH ×3 (01:08→17:36)
[2017-04-15] MEDS: Pantoprazole 80 MG in Sodium Chloride 0.9% 100 ML IVPB SCH ×2 (03:21→18:01)
[2017-04-15 06:12] LABS: BASO % 0.3 % (0.0-2.0); EOS # 0.8 K/uL (0.0-0.7); EOS % 5.2 % (0.0-4.0); HEMOGLOBIN 10.8 g/dL (11.0-16.0); LYMPH # 2.1 K/uL (1.0-4.3); LYMPH % 13.4 % (20.0-40.0); MEAN CORPUSCULAR HEMOGLOBIN 29.2 pg (27.0-31.0); MEAN CORPUSCULAR HGB CONC 34.8 g/dL (33.0-37.0); MEAN PLATELET VOLUME 7.9 fL (7.2-11.7); MONO # 2.9 K/uL (0.0-0.8); MONO % 18.6 % (0.0-10.0); NEUT # 9.8 K/uL (1.8-7.0); NEUT % 62.5 % (50.0-75.0); NRBC % 0.1 % (0.0-2.0); PLATELET COUNT 334 K/uL (130-400); RBC 3.68 Mil/uL (3.80-5.20); RED CELL DISTRIBUTION WIDTH 15.4 % (11.5-14.5); WHITE BLOOD COUNT 15.8 K/uL (4.8-10.8)
[2017-04-15 06:15] LABS: INR 1.1; PROTHROMBIN TIME 12.2 SECONDS (9.7-12.2)
[2017-04-15 06:43] LABS: ALBUMIN 3.1 g/dL (3.5-5.0); CALCIUM 7.9 mg/dl (8.6-10.4)
--- NOTE | 2017-04-15 08:11 | CP.PCM.PN ---
Subjective - Date & Time of Evaluation Date of Evaluation: 04/15/17 Time of Evaluation: 07:00 - Subjective Subjective: Surgical Progress Note: Patient was seen and examined at bedside in the AM. Tachycardia worsens with agitation. Patient is non-verbal. Per nurse patient received another 3 units of PRBC yesterday 04/14/17 2 units during dialysis an done after. Objective - Vital Signs/Intake and Output Vital Signs (last 24 hours): Temp Pulse Resp BP Pulse Ox 98.5 F 132 H 17 102/64 90 L 04/15/17 04:00 04/15/17 06:59 04/15/17 06:59 04/15/17 06:59 04/15/17 06:16 Intake and Output: 04/15/17 04/15/17 06:59 18:59 Intake Total 1094 73 Output Total 575 Balance 519 73 - Medications Medications: Current Medications Acetaminophen (Tylenol 325 Mg Supp) 325 mg [place] Q4 PRN PRN Reason: Fever >100.4 F Last Admin: 04/13/17 04:38 Dose: 325 mg Ascorbic Acid (Vitamin C 500 Mg Tab) 500 mg PO DAILY [facility] Last Admin: 04/14/17 10:00 Dose: Not Given Haloperidol Lactate (Haldol) 1 mg IVP BID PRN PRN Reason: Agitation Last Admin: 04/12/17 22:21 Dose: 1 mg Hydromorphone HCl (Dilaudid) 0.5 mg IVP Q4H PRN PRN Reason: Pain, severe (8-10) Last Admin: 04/15/17 04:27 Dose: 0.5 mg Piperacillin Sod/Tazobactam Sod (Zosyn 2.25 Gm Iv Premix) 2.25 gm in 50 mls @ 100 mls/hr IVPB Q8H [facility] Last Admin: 04/15/17 01:08 Dose: 100 mls/hr Pantoprazole Sodium 80 mg/ (Sodium Chloride) 100 mls @ 10 mls/hr IVPB .Q10H [facility] PRN Reason: 8 MG/HR Last Admin: 04/15/17 03:21 Dose: Not Given Chromium/Copper/Manganese/Zinc 1 ml/ Multivitamins/Vitamin C 10 ml/ Heparin Sodium ( Porcine) 1,000 units/ Amino Acids/Electrolytes/Dextrose 1,012 mls @ 63 mls/hr IV .Q16H4M [facility] Stop: 04/15/17 10:03 Last Admin: 04/14/17 17:21 Dose: 63 mls/hr Chromium/Copper/Manganese/Zinc 1 ml/ Heparin Sodium (Porcine ) 1,000 units/ Amino Acids/Electrolytes/Dextrose 1,002 mls @ 63 mls/hr IV .[id number] [facility] Stop: 04/15/17 18:00 Lorazepam (Ativan) 0.5 mg IVP Q3H PRN PRN Reason: Anxiety Last Admin: 04/15/17 05:00 Dose: 0.5 mg Metoclopramide HCl (Reglan) 5 mg IVP Q6 [facility] Last Admin: 04/15/17 06:29 Dose: 5 mg Ondansetron HCl (Zofran Inj) 4 mg IVP Q6H PRN PRN Reason: Nausea/Vomiting Last Admin: 04/11/17 21:39 Dose: 4 mg Saccharomyces Boulardii (Florastor) 250 mg PO BID [facility] Last Admin: 04/14/17 17:07 Dose: Not Given Thiamine HCl (Vitamin B1 Tab) 100 mg PO DAILY [facility] Last Admin: 04/14/17 10:00 Dose: Not Given - Labs Labs: 04/15/17 05:56 04/15/17 05:58 PT 12.2 SECONDS (9.7-12.2) 04/15/17 05:57 INR 1.1 04/15/17 05:57 APTT 30 SECONDS (21-34) 04/08/17 12:45 - Constitutional Appears: Chronically Ill - Head Exam Head Exam: ATRAUMATIC, NORMAL INSPECTION - Eye Exam Eye Exam: Normal appearance - ENT Exam ENT Exam: Mucous Membranes Moist - Respiratory Exam Respiratory Exam: NORMAL BREATHING PATTERN - Cardiovascular Exam Cardiovascular Exam: Tachycardia, +S1, +S2 - GI/Abdominal Exam GI & Abdominal Exam: Soft - Extremities Exam Extremities Exam: Normal Inspection - Neurological Exam Neurological Exam: Alert, Awake. absent: Oriented x3 - Skin Skin Exam: Normal Color, Warm Assessment and Plan - Assessment and Plan (Free Text) Assessment: 36 year old female with gastric motility disorder Upper GI endoscopy (04/13/17): diffuse hemorrhagic mucosa with stigmata of recent bleeding was found in the gastric fundus and in the gastric body. Large portion of adherent blood clot present in the gastric body. - Being followed by GI No immediate surgical intervention at this time Will continue to follow clinically Suni Wade PGY-1
--- NOTE | 2017-04-15 08:11 | CP.PCM.PN ---
Subjective - Date & Time of Evaluation Date of Evaluation: 04/15/17 Time of Evaluation: 08:08 - Subjective Subjective: s/p dialysis 1/4 still sedated, oliguric on TPN remains very tachycardic cannot answer questions s/p CT scan abdomen Objective - Vital Signs/Intake and Output Vital Signs (last 24 hours): Temp Pulse Resp BP Pulse Ox 98.5 F 132 H 17 102/64 90 L 04/15/17 04:00 04/15/17 06:59 04/15/17 06:59 04/15/17 06:59 04/15/17 06:16 Intake and Output: 04/15/17 04/15/17 06:59 18:59 Intake Total 1094 73 Output Total 575 Balance 519 73 - Medications Medications: Current Medications Acetaminophen (Tylenol 325 Mg Supp) 325 mg [place] Q4 PRN PRN Reason: Fever >100.4 F Last Admin: 04/13/17 04:38 Dose: 325 mg Ascorbic Acid (Vitamin C 500 Mg Tab) 500 mg PO DAILY [facility] Last Admin: 04/14/17 10:00 Dose: Not Given Haloperidol Lactate (Haldol) 1 mg IVP BID PRN PRN Reason: Agitation Last Admin: 04/12/17 22:21 Dose: 1 mg Hydromorphone HCl (Dilaudid) 0.5 mg IVP Q4H PRN PRN Reason: Pain, severe (8-10) Last Admin: 04/15/17 04:27 Dose: 0.5 mg Piperacillin Sod/Tazobactam Sod (Zosyn 2.25 Gm Iv Premix) 2.25 gm in 50 mls @ 100 mls/hr IVPB Q8H [facility] Last Admin: 04/15/17 01:08 Dose: 100 mls/hr Pantoprazole Sodium 80 mg/ (Sodium Chloride) 100 mls @ 10 mls/hr IVPB .Q10H [facility] PRN Reason: 8 MG/HR Last Admin: 04/15/17 03:21 Dose: Not Given Chromium/Copper/Manganese/Zinc 1 ml/ Multivitamins/Vitamin C 10 ml/ Heparin Sodium ( Porcine) 1,000 units/ Amino Acids/Electrolytes/Dextrose 1,012 mls @ 63 mls/hr IV .Q16H4M [facility] Stop: 04/15/17 10:03 Last Admin: 04/14/17 17:21 Dose: 63 mls/hr Chromium/Copper/Manganese/Zinc 1 ml/ Heparin Sodium (Porcine ) 1,000 units/ Amino Acids/Electrolytes/Dextrose 1,002 mls @ 63 mls/hr IV .[id number] [facility] Stop: 04/15/17 18:00 Lorazepam (Ativan) 0.5 mg IVP Q3H PRN PRN Reason: Anxiety Last Admin: 04/15/17 05:00 Dose: 0.5 mg Metoclopramide HCl (Reglan) 5 mg IVP Q6 [facility] Last Admin: 04/15/17 06:29 Dose: 5 mg Ondansetron HCl (Zofran Inj) 4 mg IVP Q6H PRN PRN Reason: Nausea/Vomiting Last Admin: 04/11/17 21:39 Dose: 4 mg Saccharomyces Boulardii (Florastor) 250 mg PO BID [facility] Last Admin: 04/14/17 17:07 Dose: Not Given Thiamine HCl (Vitamin B1 Tab) 100 mg PO DAILY [facility] Last Admin: 04/14/17 10:00 Dose: Not Given - Labs Labs: 04/15/17 05:56 04/15/17 05:58 PT 12.2 SECONDS (9.7-12.2) 04/15/17 05:57 INR 1.1 04/15/17 05:57 APTT 30 SECONDS (21-34) 04/08/17 12:45 - Constitutional Appears: In Acute Distress, Chronically Ill - Head Exam Head Exam: ATRAUMATIC, NORMAL INSPECTION - Eye Exam Eye Exam: EOMI, Normal appearance - Neck Exam Neck Exam: Normal Inspection. absent: Tenderness - Cardiovascular Exam Cardiovascular Exam: Tachycardia, +S1 - GI/Abdominal Exam GI & Abdominal Exam: Soft. absent: Tenderness - Extremities Exam Extremities Exam: Normal Inspection. absent: Tenderness - Neurological Exam Neurological Exam: Altered, CN II-XII Intact - Skin Skin Exam: Dry, Warm Assessment and Plan (1) JIMBO (acute kidney injury) Status: Acute (2) Acute pancreatitis Status: Acute (3) SBO (small bowel obstruction) Status: Acute (4) Schizophrenia Status: Acute - Assessment and Plan (Free Text) Plan: Repeat dialysis today and in AM TPN GI follow up
[2017-04-15] MEDS: Saccharomyces Boulardi 250 mg Cap PO SCH ×2 (09:40→17:38)
[2017-04-15] MEDS ORDERED: TPN IV SCH (10:00)
[2017-04-15 10:39] LABS: BANDS 14 % (0-2); EOSINOPHIL 5 % (0-4); LYMPHOCYTE 10 % (20-40); MONOCYTE 21 % (0-10); NEUTROPHIL 50 % (50-75); TOTAL CELLS COUNTED 100
[2017-04-15 10:40] LABS: ANISOCYTOSIS SLIGHT; PLATELET ESTIMATE NORMAL (NORMAL); POLYCHROMIC SLIGHT
[2017-04-15] MEDS ORDERED: Propofol 10 mg/ml Inj (20 ML) ONE (13:31)
--- NOTE | 2017-04-15 15:09 | CP.CCUPN ---
<Pari Smith - Last Filed: 04/15/17 15:10> CCU Subjective - Physician Review Subjective (Free Text): 04/15/17 15:[address] Guerin Patient get PEJ tube by Dr. Meade today. Patient had repeat EGD today. No acute events overnight. Patient had 2 u PRBC with dialysis and 3rd finished after dialyis. 200cc from NGT over 24 hours. Dark Red. Patient's stool, no melena or hematochezia. Critical Care Time Spent (in minutes): 35 CCU Objective - Vital Signs / Intake & Output Vital Signs (Last 4 hours): Vital Signs Temp BP Pulse Ox 04/15/17 12:00 98.4 F 123/84 99 Intake and Output (Last 8hrs): Intake & Output 04/15/17 04/15/17 04/15/17 06:59 14:59 22:59 Intake Total 655 408 Output Total 575 Balance 80 408 Weight 153 lb 0.013 oz 150 lb Intake: Intake, IV Amount 655 408 NEHA #20 50 Right Femoral 525 378 Right Upper arm 80 30 Output: Gastric Amount 325 Right Nares 325 Urine 150 Urethral (Tovar) 150 Stool 100 - Physical Exam Head: Positive for: Atraumatic, Normocephalic. Negative for: Tenderness Pupils: Positive for: PERRL Extroacular Muscles: Positive for: EOMI Mouth: Positive for: Moist Mucous Membranes. Negative for: Dry, Drooling Nose (External): Positive for: Other (NGT in place) Nose (Internal): Positive for: Normal Inspection, Moist Neck: Positive for: Normal Range of Motion. Negative for: JVD, Lymphadenopathy Respiratory/Chest: Positive for: Clear to Auscultation. Negative for: Respiratory Distress, Accessory Muscle Use Cardiovascular: Positive for: Regular Rate and Rhythm, Normal S1, S2 Abdomen: Positive for: Tenderness (mild tenderness of palpation. patient continues to move her arms towards hands on palpation). Negative for: Distention, Guarding Upper Extremity: Positive for: Normal Inspection, Normal ROM, Capillary Refill < 2s. Negative for: Edema Lower Extremity: Positive for: Normal Inspection. Negative for: Edema Neurological: Positive for: CN II-XII Intact Skin: Positive for: Warm, Pale Psychiatric: Positive for: Alert - Medications Active Medications: Active Medications Generic Name Dose Route Start Last Admin Trade Name Freq PRN Reason Stop Dose Admin Acetaminophen 325 mg 03/29/17 07:57 04/13/17 04:38 Tylenol 325 Mg Supp IN 325 mg Q4 PRN Administration Fever >100.4 F Ascorbic Acid 500 mg 04/08/17 12:30 04/15/17 10:14 Vitamin C 500 Mg Tab PO Not Given DAILY AGUSTIN Haloperidol Lactate 1 mg 03/29/17 18:47 04/12/17 22:21 Haldol IVP 1 mg BID PRN Administration Agitation Hydromorphone HCl 0.5 mg 04/10/17 23:09 04/15/17 10:11 Dilaudid IVP 0.5 mg Q4H PRN Administration Pain, severe (8-10) Piperacillin Sod/Tazobactam Sod 2.25 gm in 50 mls @ 100 mls/hr 04/12/17 18:00 04/15/17 10:15 Zosyn 2.25 Gm Iv Premix IVPB 100 mls/hr Q8H AGUSTIN Administration Pantoprazole Sodium 80 mg/ 100 mls @ 10 mls/hr 04/12/17 14:30 04/15/17 03:21 Sodium Chloride IVPB Not Given .Q10H AGUSTIN 8 MG/HR Chromium/Copper/Manganese/Zinc 1,002 mls @ 63 mls/hr 04/15/17 10:00 1 ml/ Heparin Sodium (Porcine IV 04/15/17 18:00 ) 1,000 units/ Amino Acids/ .[id number] AGUSTIN Electrolytes/Dextrose Multivitamins/Vitamin C 10 ml/ 1,011.2 mls @ 63 mls/hr 04/15/17 18:00 Chromium/Copper/Manganese/ IV 04/16/17 10:03 Seleni/Zn 1 ml/ Heparin Sodium .Q16H4M ONE (Porcine) 1,000 units/ Amino Acids/Electrolytes/Dextrose Chromium/Copper/Manganese/ 1,001.2 mls @ 63 mls/hr 04/16/17 10:04 Seleni/Zn 1 ml/ Heparin Sodium IV 04/16/17 17:59 (Porcine) 1,000 units/ Amino .[id number] AGUSTIN Acids/Electrolytes/Dextrose Lorazepam 0.5 mg 04/01/17 16:08 04/15/17 05:00 Ativan IVP 0.5 mg Q3H PRN Administration Anxiety Metoclopramide HCl 5 mg 04/13/17 18:00 04/15/17 12:30 Reglan IVP Not Given Q6 [facility] Ondansetron HCl 4 mg 03/27/17 23:45 04/11/17 21:39 Zofran Inj IVP 4 mg Q6H PRN Administration Nausea/Vomiting Saccharomyces Boulardii 250 mg 04/08/17 18:00 04/15/17 09:40 Florastor PO Not Given BID AGUSTIN Thiamine HCl 100 mg 04/08/17 12:30 04/15/17 10:13 Vitamin B1 Tab PO Not Given DAILY [facility] - Patient Studies Lab Studies: Lab Studies 04/15/17 04/15/17 04/15/17 Range/Units 12:02 05:58 05:57 WBC (4.8-10.8) K/uL RBC (3.80-5.20) Mil/uL Hgb (11.0-16.0) g/dL Hct (34.0-47.0) % MCV (81.0-99.0) fL MCH (27.0-31.0) pg MCHC (33.0-37.0) g/dL RDW (11.5-14.5) % Plt Count (130-400) K/uL MPV (7.2-11.7) fL Neut % (Auto) (50.0-75.0) % Lymph % (Auto) (20.0-40.0) % Bradford % (Auto) (0.0-10.0) % Eos % (Auto) (0.0-4.0) % Baso % (Auto) (0.0-2.0) % Neut # (1.8-7.0) K/uL Lymph # (1.0-4.3) K/uL Bradford # (0.0-0.8) K/uL Eos # (0.0-0.7) K/uL Baso # (0.0-0.2) K/uL Neutrophils % (Manual) (50-75) % Band Neutrophils % (0-2) % Lymphocytes % (Manual) (20-40) % Monocytes % (Manual) (0-10) % Eosinophils % (Manual) (0-4) % Platelet Estimate (NORMAL) Polychromasia Hypochromasia (manual) Poikilocytosis (manual Anisocytosis (manual) PT 12.2 (9.7-12.2) SECONDS INR 1.1 Sodium 134 (132-148) mmol/L Potassium 3.7 (3.6-5.2) mmol/L Chloride 100 (98-107) mmol/L Carbon Dioxide 25 (22-30) mmol/L Anion Gap 12 (10-20) BUN 41 H (7-17) mg/dL Creatinine 5.2 H (0.7-1.2) mg/dL Est GFR ( Amer) 11 Est GFR (Non-Af Amer) 9 POC Glucose (mg/dL) 104 (65-110) mg/dL Random Glucose 112 H (65-105) mg/dL Calcium 7.9 L (8.6-10.4) mg/dl Total Bilirubin 0.8 (0.2-1.3) mg/dL AST 23 (14-36) U/L ALT 24 (9-52) U/L Alkaline Phosphatase 102 (38-126) U/L Total Protein 6.0 L (6.3-8.3) g/dL Albumin 3.1 L D (3.5-5.0) g/dL Globulin 3.0 (2.2-3.9) gm/dL Albumin/Globulin Ratio 1.0 (1.0-2.1) IgG, Serum (MS) (4-86) mg/dL Stool Leukocytes, Qual (NEGATIVE) 04/15/17 04/15/17 04/14/17 Range/Units 05:56 05:35 23:47 WBC 15.8 H (4.8-10.8) K/uL RBC 3.68 L (3.80-5.20) Mil/uL Hgb 10.8 L (11.0-16.0) g/dL Hct 30.9 L (34.0-47.0) % MCV 84.0 (81.0-99.0) fL MCH 29.2 (27.0-31.0) pg MCHC 34.8 (33.0-37.0) g/dL RDW 15.4 H (11.5-14.5) % Plt Count 334 (130-400) K/uL MPV 7.9 (7.2-11.7) fL Neut % (Auto) 62.5 (50.0-75.0) % Lymph % (Auto) 13.4 L (20.0-40.0) % Bradford % (Auto) 18.6 H (0.0-10.0) % Eos % (Auto) 5.2 H (0.0-4.0) % Baso % (Auto) 0.3 (0.0-2.0) % Neut # 9.8 H (1.8-7.0) K/uL Lymph # 2.1 (1.0-4.3) K/uL Bradford # 2.9 H (0.0-0.8) K/uL Eos # 0.8 H (0.0-0.7) K/uL Baso # 0.0 (0.0-0.2) K/uL Neutrophils % (Manual) 50 (50-75) % Band Neutrophils % 14 H* (0-2) % Lymphocytes % (Manual) 10 L (20-40) % Monocytes % (Manual) 21 H (0-10) % Eosinophils % (Manual) 5 H (0-4) % Platelet Estimate Normal (NORMAL) Polychromasia Slight Hypochromasia (manual) Poikilocytosis (manual Anisocytosis (manual) Slight PT (9.7-12.2) SECONDS INR Sodium (132-148) mmol/L Potassium (3.6-5.2) mmol/L Chloride (98-107) mmol/L Carbon Dioxide (22-30) mmol/L Anion Gap (10-20) BUN (7-17) mg/dL Creatinine (0.7-1.2) mg/dL Est GFR ( Amer) Est GFR (Non-Af Amer) POC Glucose (mg/dL) 109 127 H (65-110) mg/dL Random Glucose (65-105) mg/dL Calcium (8.6-10.4) mg/dl Total Bilirubin (0.2-1.3) mg/dL AST (14-36) U/L ALT (9-52) U/L Alkaline Phosphatase (38-126) U/L Total Protein (6.3-8.3) g/dL Albumin (3.5-5.0) g/dL Globulin (2.2-3.9) gm/dL Albumin/Globulin Ratio (1.0-2.1) IgG, Serum (MS) (4-86) mg/dL Stool Leukocytes, Qual (NEGATIVE) 04/14/17 04/14/17 04/12/17 Range/Units 20:14 17:39 08:00 WBC 13.9 H (4.8-10.8) K/uL RBC 3.47 L (3.80-5.20) Mil/uL Hgb 10.2 L D (11.0-16.0) g/dL Hct 28.7 L (34.0-47.0) % MCV 82.7 (81.0-99.0) fL MCH 29.3 (27.0-31.0) pg MCHC 35.4 (33.0-37.0) g/dL RDW 15.0 H (11.5-14.5) % Plt Count 294 (130-400) K/uL MPV 7.6 (7.2-11.7) fL Neut % (Auto) 72.9 (50.0-75.0) % Lymph % (Auto) 5.8 L (20.0-40.0) % Bradford % (Auto) 15.5 H (0.0-10.0) % Eos % (Auto) 4.5 H (0.0-4.0) % Baso % (Auto) 1.3 (0.0-2.0) % Neut # 10.1 H (1.8-7.0) K/uL Lymph # 0.8 L (1.0-4.3) K/uL Bradford # 2.2 H (0.0-0.8) K/uL Eos # 0.6 (0.0-0.7) K/uL Baso # 0.2 (0.0-0.2) K/uL Neutrophils % (Manual) 72 (50-75) % Band Neutrophils % 3 H (0-2) % Lymphocytes % (Manual) 7 L (20-40) % Monocytes % (Manual) 15 H (0-10) % Eosinophils % (Manual) 3 (0-4) % Platelet Estimate Normal (NORMAL) Polychromasia Slight Hypochromasia (manual) Slight Poikilocytosis (manual Slight Anisocytosis (manual) Slight PT (9.7-12.2) SECONDS INR Sodium (132-148) mmol/L Potassium (3.6-5.2) mmol/L Chloride (98-107) mmol/L Carbon Dioxide (22-30) mmol/L Anion Gap (10-20) BUN (7-17) mg/dL Creatinine (0.7-1.2) mg/dL Est GFR ( Amer) Est GFR (Non-Af Amer) POC Glucose (mg/dL) 96 (65-110) mg/dL Random Glucose (65-105) mg/dL Calcium (8.6-10.4) mg/dl Total Bilirubin (0.2-1.3) mg/dL AST (14-36) U/L ALT (9-52) U/L Alkaline Phosphatase (38-126) U/L Total Protein (6.3-8.3) g/dL Albumin (3.5-5.0) g/dL Globulin (2.2-3.9) gm/dL Albumin/Globulin Ratio (1.0-2.1) IgG, Serum (MS) (4-86) mg/dL Stool Leukocytes, Qual Negative (NEGATIVE) 04/09/17 Range/Units 16:44 WBC (4.8-10.8) K/uL RBC (3.80-5.20) Mil/uL Hgb (11.0-16.0) g/dL Hct (34.0-47.0) % MCV (81.0-99.0) fL MCH (27.0-31.0) pg MCHC (33.0-37.0) g/dL RDW (11.5-14.5) % Plt Count (130-400) K/uL MPV (7.2-11.7) fL Neut % (Auto) (50.0-75.0) % Lymph % (Auto) (20.0-40.0) % Bradford % (Auto) (0.0-10.0) % Eos % (Auto) (0.0-4.0) % Baso % (Auto) (0.0-2.0) % Neut # (1.8-7.0) K/uL Lymph # (1.0-4.3) K/uL Bradford # (0.0-0.8) K/uL Eos # (0.0-0.7) K/uL Baso # (0.0-0.2) K/uL Neutrophils % (Manual) (50-75) % Band Neutrophils % (0-2) % Lymphocytes % (Manual) (20-40) % Monocytes % (Manual) (0-10) % Eosinophils % (Manual) (0-4) % Platelet Estimate (NORMAL) Polychromasia Hypochromasia (manual) Poikilocytosis (manual Anisocytosis (manual) PT (9.7-12.2) SECONDS INR Sodium (132-148) mmol/L Potassium (3.6-5.2) mmol/L Chloride (98-107) mmol/L Carbon Dioxide (22-30) mmol/L Anion Gap (10-20) BUN (7-17) mg/dL Creatinine (0.7-1.2) mg/dL Est GFR ( Amer) Est GFR (Non-Af Amer) POC Glucose (mg/dL) (65-110) mg/dL Random Glucose (65-105) mg/dL Calcium (8.6-10.4) mg/dl Total Bilirubin (0.2-1.3) mg/dL AST (14-36) U/L ALT (9-52) U/L Alkaline Phosphatase (38-126) U/L Total Protein (6.3-8.3) g/dL Albumin (3.5-5.0) g/dL Globulin (2.2-3.9) gm/dL Albumin/Globulin Ratio (1.0-2.1) IgG, Serum (MS) 15.3 (4-86) mg/dL Stool Leukocytes, Qual (NEGATIVE) Laboratory Results - last 24 hr 04/09/17 04/12/17 04/14/17 16:44 08:00 17:39 WBC RBC Hgb Hct MCV MCH MCHC RDW Plt Count MPV Neut % (Auto) Lymph % (Auto) Bradford % (Auto) Eos % (Auto) Baso % (Auto) Neut # Lymph # Bradford # Eos # Baso # Neutrophils % (Manual) Band Neutrophils % Lymphocytes % (Manual) Monocytes % (Manual) Eosinophils % (Manual) Platelet Estimate Polychromasia Hypochromasia (manual) Poikilocytosis (manual Anisocytosis (manual) PT INR Sodium Potassium Chloride Carbon Dioxide Anion Gap BUN Creatinine Est GFR ( Amer) Est GFR (Non-Af Amer) POC Glucose (mg/dL) 96 Random Glucose Calcium Total Bilirubin AST ALT Alkaline Phosphatase Total Protein Albumin Globulin Albumin/Globulin Ratio IgG, Serum (MS) 15.3 Stool Leukocytes, Qual Negative 04/14/17 04/14/17 04/15/17 20:14 23:47 05:35 WBC 13.9 H RBC 3.47 L Hgb 10.2 L D Hct 28.7 L MCV 82.7 MCH 29.3 MCHC 35.4 RDW 15.0 H Plt Count 294 MPV 7.6 Neut % (Auto) 72.9 Lymph % (Auto) 5.8 L Bradford % (Auto) 15.5 H Eos % (Auto) 4.5 H Baso % (Auto) 1.3 Neut # 10.1 H Lymph # 0.8 L Bradford # 2.2 H Eos # 0.6 Baso # 0.2 Neutrophils % (Manual) 72 Band Neutrophils % 3 H Lymphocytes % (Manual) 7 L Monocytes % (Manual) 15 H Eosinophils % (Manual) 3 Platelet Estimate Normal Polychromasia Slight Hypochromasia (manual) Slight Poikilocytosis (manual Slight Anisocytosis (manual) Slight PT INR Sodium Potassium Chloride Carbon Dioxide Anion Gap BUN Creatinine Est GFR ( Amer) Est GFR (Non-Af Amer) POC Glucose (mg/dL) 127 H 109 Random Glucose Calcium Total Bilirubin AST ALT Alkaline Phosphatase Total Protein Albumin Globulin Albumin/Globulin Ratio IgG, Serum (MS) Stool Leukocytes, Qual 04/15/17 04/15/17 04/15/17 05:56 05:57 05:58 WBC 15.8 H RBC 3.68 L Hgb 10.8 L Hct 30.9 L MCV 84.0 MCH 29.2 MCHC 34.8 RDW 15.4 H Plt Count 334 MPV 7.9 Neut % (Auto) 62.5 Lymph % (Auto) 13.4 L Bradford % (Auto) 18.6 H Eos % (Auto) 5.2 H Baso % (Auto) 0.3 Neut # 9.8 H Lymph # 2.1 Bradford # 2.9 H Eos # 0.8 H Baso # 0.0 Neutrophils % (Manual) 50 Band Neutrophils % 14 H* Lymphocytes % (Manual) 10 L Monocytes % (Manual) 21 H Eosinophils % (Manual) 5 H Platelet Estimate Normal Polychromasia Slight Hypochromasia (manual) Poikilocytosis (manual Anisocytosis (manual) Slight PT 12.2 INR 1.1 Sodium 134 Potassium 3.7 Chloride 100 Carbon Dioxide 25 Anion Gap 12 BUN 41 H Creatinine 5.2 H Est GFR ( Amer) 11 Est GFR (Non-Af Amer) 9 POC Glucose (mg/dL) Random Glucose 112 H Calcium 7.9 L Total Bilirubin 0.8 AST 23 ALT 24 Alkaline Phosphatase 102 Total Protein 6.0 L Albumin 3.1 L D Globulin 3.0 Albumin/Globulin Ratio 1.0 IgG, Serum (MS) Stool Leukocytes, Qual 04/15/17 12:02 WBC RBC Hgb Hct MCV MCH MCHC RDW Plt Count MPV Neut % (Auto) Lymph % (Auto) Bradford % (Auto) Eos % (Auto) Baso % (Auto) Neut # Lymph # Bradford # Eos # Baso # Neutrophils % (Manual) Band Neutrophils % Lymphocytes % (Manual) Monocytes % (Manual) Eosinophils % (Manual) Platelet Estimate Polychromasia Hypochromasia (manual) Poikilocytosis (manual Anisocytosis (manual) PT INR Sodium Potassium Chloride Carbon Dioxide Anion Gap BUN Creatinine Est GFR ( Amer) Est GFR (Non-Af Amer) POC Glucose (mg/dL) 104 Random Glucose Calcium Total Bilirubin AST ALT Alkaline Phosphatase Total Protein Albumin Globulin Albumin/Globulin Ratio IgG, Serum (MS) Stool Leukocytes, Qual Fingerstick Blood Sugar Results: 104 Critical Care Progress Note - Nutrition Nutrition: Nutrition Category Date Time Status NPO Diet [DIET] Diets 04/08/17 Dinner Active Assessment/Plan - Assessment and Plan (Free Text) Assessment: 36F admitted with diarrhea,tachycardia,elevated WBC count ,lipase and lactic acid, 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 Neuro: hx of Schizophrenia, patient has mental retardation and can speak some words based on observation Altered mental status 04/07 Dr. Bedoya consulted Psych Consult: Dr. Mccloud Pain: 0.5 mg IVP Q4H PRN Sedation: 1mg Haldol IVP Q12H PRN 0.5mg Ativan Q3H PRN Nausea: Zofran 4mg IVP q6h PRN Reglan 10 mg IVP q4h PRN Psych: Psych Consult Dr. Mccloud: f/u 03/30 EKG to evaluate QTc Quetiapine (Seroquel) 200mg POBID, held d/t NGT on IWS, held awaiting Dr. Mccloud Recommendations Escitalopram (Lexapro) 10mg PO QD, held d/t NGT on IWS, held awaiting Dr. Mccloud Recommendations Cardio: Tachycardia 03/27 EKG Sinus tachycardia 138 bpm 03/30 EKG QTc 434, Sinus tachycardia at 153 bpm Diltiazem 125mg Q24hr @ 5mg/hr 04/08 Pulm: Aspiration pneumonia s/p EGD with intubation then extubation 03/27 AB.22, lactate 9.7 04/08 AB.50, CO2 24, O2 148, HCO3 22.9, lactate 1.0 03/27 CXR in infiltrates, no active pulmonary disease 03/30 CXR: poor inspiratory effort, areas suggestive of aspiration pneumonia 04/02: CT abdomen/pelvis/chest: pleural effusions, bilateral perihilar consolidations possibly due to multifocal pneumonia vs. atelectasis 04/04: CXR: Left lower lobe atelectasis/pneumonia and small left pleural effusion. Stable position of nasogastric tube and left PICC line. Endo: 03/28 Hemoglobin A1c 5.3 GI: Currently on PPN 03/28 Lipase 8456 03/29 Lipase 322 03/30 Lipase 64 03/30 GOBT positive 03/31 Pathology for Antrum biopsy from 03/29 EGD current biopsy negative for H pylori 04/01 f/u Dr. Harmon for repeat EGD., NGT 800 03/27 21:42 CT abdomen/pelvis with IV contrast: gastric distention 32cm and distention of the first and third and second portion of duodenum. Transition and complete decompression of third portion of duodenum. pancreas unremarkable, spleen unremarkable, partially contracted gallbladder. duodenal obstruction v delayed emptying v gastroparesis. Fluid distention of distal esophagus 3.3cm representing gastric emptying v gastroesophageal reflux. 03/27 CT abdomen/pelvis with IV contrast: significantly dilated stomach with retained food and fluid. significantly diminished prior to earlier CT 03/28. No free intraperitoneal gas identified. contrast noted in Gallbladder. 03/28 CT Chest/Abdomen/Pelvis: Left greater than right pleural effusion, bilateral perihilar consolidation. right more than left upper lobes and left more than right lower lobes. lingular consolidation representing multifocal pneumonia v. atelectasis versus mucous lugging and/or aspiration. interval worsening compared to prior exam 04/02 CT chest/abdomen/pelvis shows gastric distention 27cm, possible gastric pneumatosis, NGT at fundus with contrast fluid and gas level peripancreatic infiltration. gastric distension measuring 27 cm with possible gastric pneumatosis. intraperitoneal pelvic fluid with prominent surrounding peritoneal lining. Loculated ascites with peritoneal enhancement above spleen in retrogastric region. Lipase 320. 04/08 CT Chest/Abdomen/Pelvis: resolving acute pancreatitis, no residual peripancreatic fluid. 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 Distention of stomach due to gastric ileus. Ascites and loculated fluid posterior to the gastric fundus and cephalad to the spleen. Focal enteritis of proximal jejunum with mural thickening. Small left pleural effusion with left lower lobe compressive atelectasis. 04/14/17 CT Angio Abdomen/Pelvis:gastric distentions 27cm. gastric pneumatosis on image 66 through 73 series 6. NGT in fundus of stomach with contrast fluid and gas level. peripancreatic infiltration. left more than right large pleural effusions. bilateral perihilar consolidation. right more than left upper lobes and left more than right lower lobes lingular consolidation. Significant interval worsening when compared to prior examination 03/28/17. moderate intraperitoneal pelvic fluid with prominent surrounding peritoneal lining. Loculated peritoneal abscess secondary to contained gastric perforation 03/[address] connected to suction. 03/28 NGT OP since insertion: 2600cc 03/29 2350 03/30 NGT 1160 03/31 NGT 630 04/01 NGT 800 04/02 NGT 100 04/04 550, NGT removed by patient, Flexiseal removed by patient f/u Strict I/Os 04/10 NGT 3300 04/11 NGT 1200 04/12 NGT 700, with about 100cc of bright red sanguinous blood, with bilious component. 04/12 NGT off suction, clamped, patient continues to have red output to gravity. General Surgery Consult: Dr. Woodruff 03/[address] Harmon to have EGD today. 03/[address] Harmon, place patient on Reglan to help with motility. 03/30 Abdominal xray/obstructive series: minimal distention of stomach compared to previous imaging studies 03/31 Pathology for Antrum biopsy from 03/29 EGD current biopsy negative for H pylori 04/01 f/u Dr. Harmon for repeat EGD. 04/13 Dr. Lau repeat EGD: diffuse ulceration, large fibrous clot, repeat EGD scheduled 04/14 for re-evaluation, CT Angio ordered to evaluate for ischemia 04/13 NGT 280 cc 04/14 NGT 140cc over 24 hours 04/14 repeat EGD cancelled. continued supportive care by GI today 04/14 NGT 200cc 04/15 repeat EGD and PEJ tube insertion. Zofran 4mg IVP q6h PRN Reglan 10 mg IVP q4h PRN Renal: 03/27 UA: proteinuria urine output since insertion 360 average hourly output 60cc/hr f/u Strict I/Os 03/31 Potassium Phosphorus 15mmole @63cc/hr 24Hr UOP 110, 20-30cc/hr : 03/27 UA: hazy, specific gravity >1.060, 3+ urine protein, Urine bacteria, Urine Yeast Ceftriaxone 1gm IVPB QD, discontinued 03/30 Urine Cx negative 04/08 UA: Ariadne, UA pH 5.0, trace ketones, 1+ leukocyte esterase, specific gravity 1.030 04/08 urine random total protein 41.0 Urine random chloride 17 Urine random sodium 7 Heme: GI bleed H/H: 03/27 14.6/44.7 03/28 12.9/38.5 03/28 FOBT positive 03/29 11.2/33.0 03/30 GOBT positive 03/30 9.5/27.7 03/31 9.4/27.5 04/01 8.9/25.8 04/02 9.1/26.7 04/04 9.9/28.8 04/05 9.4/28.4 04/09/1704/10 9.6/29.9 04/11 7.8/22.6 / 7.0/20.4 04/13 4.1/11.1 04/14 6.8/19.9 MSK: Patient can walk per sister, but is dizzy so hasn't walked PT/OT eval and treat when stable ID: Sepsis Code sepsis 03/28 02:20, 03/28 lactate 9.7, 03/28 lactate 01:05 9.2, 03/28 lactate 06:15 1.3 Lactate is downtrending, normal Leukocytosis, downtrending 03/27 WBC 26.7 03/28 WBC 30.2 03/29 WBC 21.3 03/30 WBC 16.1 03/31 WBC 15.7 04/02 WBC 16.8 04/03 WBC 18.4 04/04 WBC 18.6 04/05 WBC 20.1 04/06 WBC 23.2 04/08 08:19 WBC 36.1 04/08 19:10 WBC 37.4 04/09 06:24 WBC 33.3 04/10 06:52 WBC 20.4 04/11 06:36 13.5 04/12 06:10 13.6 04/12 16:20 12.3 04/13 06:37 18.6 04/13 17:02 18.3 04/14 15.4 Code sepsis 03/28 02:20 03/30 blood Culture x 2, negative 03/30 MRSA screen negative 03/30 Urine Cx negative 04/02 Blood culture x2 negative 03/29 Neutrophils 75, Bands 9 03/30 Neutrophils 83, Bands 1 04/02 Neutrophils 83 04/04 Neutrophils 73.8 04/05 Neutrophils 74.4 Code sepsis called again today 04/08. Patient was febrile (102 rectally and tachycardic ~140s) BP was 100/70. Tovar inserted to monitor urine output (nurse to clean TID with betadine) WBC 36.1 elevating from 20s. 4 bands, platelets 707 Prophylaxis: GI: Protonix Drip Zofran 4mg IVP Q6H PRN Nausea Tylenol 325mg IN Q4H PRN Fluids: LR @100cc/hr Diet: NPO 04/04 NGT removed by patient, Flexiseal removed by patient, Left PICC removed by patient. 04/05 Patient downgraded to Regular Bed 04/11 Patient has a femoral dialysis catheter 04/12 GI consulted for GI bleed, repeat EGD 04/13 patient to have dialysis today with 2 u PRBC transfusion. CTAngio of abdomen and pelvis today d/t possible ischemic changes due to diffuse ulcerations seen on EGD 04/14 Patient had 3 uPRBC yesterday (1 u after dialysis) Patient's hgb is 6.8 today. Will transfuse 1 u PRBC during extra dialysis session today. repeat EGD today discussed with Dr. Apoorva Smith DO PGY1 - Date & Time Date: 04/15/17 Time: 15:11 <Irwin Guerin - Last Filed: 04/15/17 16:49> CCU Objective - Vital Signs / Intake & Output Vital Signs (Last 4 hours): Vital Signs Temp Pulse Resp BP Pulse Ox 04/15/17 13:10 98.4 F 140 H 22 128/80 92 L Intake and Output (Last 8hrs): Intake & Output 04/15/17 04/15/17 04/15/17 06:59 14:59 22:59 Intake Total 655 408 175 Output Total 575 Balance 80 408 175 Weight 153 lb 0.013 oz 150 lb Intake: IV 175 Intake, IV Amount 655 408 NEHA #20 50 Right Femoral 525 378 Right Upper arm 80 30 Output: Gastric Amount 325 Right Nares 325 Urine 150 Urethral (Tovar) 150 Stool 100 - Medications Active Medications: Active Medications Generic Name Dose Route Start Last Admin Trade Name Freq PRN Reason Stop Dose Admin Acetaminophen 325 mg 03/29/17 07:57 04/13/17 04:38 Tylenol 325 Mg Supp IN 325 mg Q4 PRN Administration Fever >100.4 F Ascorbic Acid 500 mg 04/08/17 12:30 04/15/17 10:14 Vitamin C 500 Mg Tab PO Not Given DAILY AGUSTIN Haloperidol Lactate 1 mg 03/29/17 18:47 04/12/17 22:21 Haldol IVP 1 mg BID PRN Administration Agitation Hydromorphone HCl 0.5 mg 04/10/17 23:09 04/15/17 16:13 Dilaudid IVP 0.5 mg Q4H PRN Administration Pain, severe (8-10) Piperacillin Sod/Tazobactam Sod 2.25 gm in 50 mls @ 100 mls/hr 04/12/17 18:00 04/15/17 10:15 Zosyn 2.25 Gm Iv Premix IVPB 100 mls/hr Q8H AGUSTIN Administration Pantoprazole Sodium 80 mg/ 100 mls @ 10 mls/hr 04/12/17 14:30 04/15/17 03:21 Sodium Chloride IVPB Not Given .Q10H AGUSTIN 8 MG/HR Chromium/Copper/Manganese/Zinc 1,002 mls @ 63 mls/hr 04/15/17 10:00 04/15/17 16:18 1 ml/ Heparin Sodium (Porcine IV 04/15/17 18:00 Not Given ) 1,000 units/ Amino Acids/ .[id number] AGUSTIN Electrolytes/Dextrose Multivitamins/Vitamin C 10 ml/ 1,011.2 mls @ 63 mls/hr 04/15/17 18:00 Chromium/Copper/Manganese/ IV 04/16/17 10:03 Seleni/Zn 1 ml/ Heparin Sodium .Q16H4M ONE (Porcine) 1,000 units/ Amino Acids/Electrolytes/Dextrose Chromium/Copper/Manganese/ 1,001.2 mls @ 63 mls/hr 04/16/17 10:04 Seleni/Zn 1 ml/ Heparin Sodium IV 04/16/17 17:59 (Porcine) 1,000 units/ Amino .[id number] [facility] Acids/Electrolytes/Dextrose Lorazepam 0.5 mg 04/01/17 16:08 04/15/17 15:51 Ativan IVP 0.5 mg Q3H PRN Administration Anxiety Metoclopramide HCl 5 mg 04/13/17 18:00 04/15/17 12:30 Reglan IVP Not Given Q6 AGUSTIN Ondansetron HCl 4 mg 03/27/17 23:45 04/11/17 21:39 Zofran Inj IVP 4 mg Q6H PRN Administration Nausea/Vomiting Saccharomyces Boulardii 250 mg 04/08/17 18:00 04/15/17 09:40 Florastor PO Not Given BID [facility] Thiamine HCl 100 mg 04/08/17 12:30 04/15/17 10:13 Vitamin B1 Tab PO Not Given DAILY [facility] [facility] - Patient Studies Lab Studies: Microbiology Studies 04/14/17 08:00 Ova and Parasite Concentrate Exam - Final Rectal Fluid Lab Studies 04/15/17 04/15/17 04/15/17 Range/Units 12:02 05:58 05:57 WBC (4.8-10.8) K/uL RBC (3.80-5.20) Mil/uL Hgb (11.0-16.0) g/dL Hct (34.0-47.0) % MCV (81.0-99.0) fL MCH (27.0-31.0) pg MCHC (33.0-37.0) g/dL RDW (11.5-14.5) % Plt Count (130-400) K/uL MPV (7.2-11.7) fL Neut % (Auto) (50.0-75.0) % Lymph % (Auto) (20.0-40.0) % Bradford % (Auto) (0.0-10.0) % Eos % (Auto) (0.0-4.0) % Baso % (Auto) (0.0-2.0) % Neut # (1.8-7.0) K/uL Lymph # (1.0-4.3) K/uL Bradford # (0.0-0.8) K/uL Eos # (0.0-0.7) K/uL Baso # (0.0-0.2) K/uL Neutrophils % (Manual) (50-75) % Band Neutrophils % (0-2) % Lymphocytes % (Manual) (20-40) % Monocytes % (Manual) (0-10) % Eosinophils % (Manual) (0-4) % Platelet Estimate (NORMAL) Polychromasia Hypochromasia (manual) Poikilocytosis (manual Anisocytosis (manual) PT 12.2 (9.7-12.2) SECONDS INR 1.1 Sodium 134 (132-148) mmol/L Potassium 3.7 (3.6-5.2) mmol/L Chloride 100 (98-107) mmol/L Carbon Dioxide 25 (22-30) mmol/L Anion Gap 12 (10-20) BUN 41 H (7-17) mg/dL Creatinine 5.2 H (0.7-1.2) mg/dL Est GFR ( Amer) 11 Est GFR (Non-Af Amer) 9 POC Glucose (mg/dL) 104 (65-110) mg/dL Random Glucose 112 H (65-105) mg/dL Calcium 7.9 L (8.6-10.4) mg/dl Total Bilirubin 0.8 (0.2-1.3) mg/dL AST 23 (14-36) U/L ALT 24 (9-52) U/L Alkaline Phosphatase 102 (38-126) U/L Total Protein 6.0 L (6.3-8.3) g/dL Albumin 3.1 L D (3.5-5.0) g/dL Globulin 3.0 (2.2-3.9) gm/dL Albumin/Globulin Ratio 1.0 (1.0-2.1) IgG, Serum (MS) (4-86) mg/dL Stool Leukocytes, Qual (NEGATIVE) 04/15/17 04/15/17 04/14/17 Range/Units 05:56 05:35 23:47 WBC 15.8 H (4.8-10.8) K/uL RBC 3.68 L (3.80-5.20) Mil/uL Hgb 10.8 L (11.0-16.0) g/dL Hct 30.9 L (34.0-47.0) % MCV 84.0 (81.0-99.0) fL MCH 29.2 (27.0-31.0) pg MCHC 34.8 (33.0-37.0) g/dL RDW 15.4 H (11.5-14.5) % Plt Count 334 (130-400) K/uL MPV 7.9 (7.2-11.7) fL Neut % (Auto) 62.5 (50.0-75.0) % Lymph % (Auto) 13.4 L (20.0-40.0) % Bradford % (Auto) 18.6 H (0.0-10.0) % Eos % (Auto) 5.2 H (0.0-4.0) % Baso % (Auto) 0.3 (0.0-2.0) % Neut # 9.8 H (1.8-7.0) K/uL Lymph # 2.1 (1.0-4.3) K/uL Bradford # 2.9 H (0.0-0.8) K/uL Eos # 0.8 H (0.0-0.7) K/uL Baso # 0.0 (0.0-0.2) K/uL Neutrophils % (Manual) 50 (50-75) % Band Neutrophils % 14 H* (0-2) % Lymphocytes % (Manual) 10 L (20-40) % Monocytes % (Manual) 21 H (0-10) % Eosinophils % (Manual) 5 H (0-4) % Platelet Estimate Normal (NORMAL) Polychromasia Slight Hypochromasia (manual) Poikilocytosis (manual Anisocytosis (manual) Slight PT (9.7-12.2) SECONDS INR Sodium (132-148) mmol/L Potassium (3.6-5.2) mmol/L Chloride (98-107) mmol/L Carbon Dioxide (22-30) mmol/L Anion Gap (10-20) BUN (7-17) mg/dL Creatinine (0.7-1.2) mg/dL Est GFR ( Amer) Est GFR (Non-Af Amer) POC Glucose (mg/dL) 109 127 H (65-110) mg/dL Random Glucose (65-105) mg/dL Calcium (8.6-10.4) mg/dl Total Bilirubin (0.2-1.3) mg/dL AST (14-36) U/L ALT (9-52) U/L Alkaline Phosphatase (38-126) U/L Total Protein (6.3-8.3) g/dL Albumin (3.5-5.0) g/dL Globulin (2.2-3.9) gm/dL Albumin/Globulin Ratio (1.0-2.1) IgG, Serum (MS) (4-86) mg/dL Stool Leukocytes, Qual (NEGATIVE) 04/14/17 04/14/17 04/12/17 Range/Units 20:14 17:39 08:00 WBC 13.9 H (4.8-10.8) K/uL RBC 3.47 L (3.80-5.20) Mil/uL Hgb 10.2 L D (11.0-16.0) g/dL Hct 28.7 L (34.0-47.0) % MCV 82.7 (81.0-99.0) fL MCH 29.3 (27.0-31.0) pg MCHC 35.4 (33.0-37.0) g/dL RDW 15.0 H (11.5-14.5) % Plt Count 294 (130-400) K/uL MPV 7.6 (7.2-11.7) fL Neut % (Auto) 72.9 (50.0-75.0) % Lymph % (Auto) 5.8 L (20.0-40.0) % Bradford % (Auto) 15.5 H (0.0-10.0) % Eos % (Auto) 4.5 H (0.0-4.0) % Baso % (Auto) 1.3 (0.0-2.0) % Neut # 10.1 H (1.8-7.0) K/uL Lymph # 0.8 L (1.0-4.3) K/uL Bradford # 2.2 H (0.0-0.8) K/uL Eos # 0.6 (0.0-0.7) K/uL Baso # 0.2 (0.0-0.2) K/uL Neutrophils % (Manual) 72 (50-75) % Band Neutrophils % 3 H (0-2) % Lymphocytes % (Manual) 7 L (20-40) % Monocytes % (Manual) 15 H (0-10) % Eosinophils % (Manual) 3 (0-4) % Platelet Estimate Normal (NORMAL) Polychromasia Slight Hypochromasia (manual) Slight Poikilocytosis (manual Slight Anisocytosis (manual) Slight PT (9.7-12.2) SECONDS INR Sodium (132-148) mmol/L Potassium (3.6-5.2) mmol/L Chloride (98-107) mmol/L Carbon Dioxide (22-30) mmol/L Anion Gap (10-20) BUN (7-17) mg/dL Creatinine (0.7-1.2) mg/dL Est GFR ( Amer) Est GFR (Non-Af Amer) POC Glucose (mg/dL) 96 (65-110) mg/dL Random Glucose (65-105) mg/dL Calcium (8.6-10.4) mg/dl Total Bilirubin (0.2-1.3) mg/dL AST (14-36) U/L ALT (9-52) U/L Alkaline Phosphatase (38-126) U/L Total Protein (6.3-8.3) g/dL Albumin (3.5-5.0) g/dL Globulin (2.2-3.9) gm/dL Albumin/Globulin Ratio (1.0-2.1) IgG, Serum (MS) (4-86) mg/dL Stool Leukocytes, Qual Negative (NEGATIVE) 04/09/17 Range/Units 16:44 WBC (4.8-10.8) K/uL RBC (3.80-5.20) Mil/uL Hgb (11.0-16.0) g/dL Hct (34.0-47.0) % MCV (81.0-99.0) fL MCH (27.0-31.0) pg MCHC (33.0-37.0) g/dL RDW (11.5-14.5) % Plt Count (130-400) K/uL MPV (7.2-11.7) fL Neut % (Auto) (50.0-75.0) % Lymph % (Auto) (20.0-40.0) % Bradford % (Auto) (0.0-10.0) % Eos % (Auto) (0.0-4.0) % Baso % (Auto) (0.0-2.0) % Neut # (1.8-7.0) K/uL Lymph # (1.0-4.3) K/uL Bradford # (0.0-0.8) K/uL Eos # (0.0-0.7) K/uL Baso # (0.0-0.2) K/uL Neutrophils % (Manual) (50-75) % Band Neutrophils % (0-2) % Lymphocytes % (Manual) (20-40) % Monocytes % (Manual) (0-10) % Eosinophils % (Manual) (0-4) % Platelet Estimate (NORMAL) Polychromasia Hypochromasia (manual) Poikilocytosis (manual Anisocytosis (manual) PT (9.7-12.2) SECONDS INR Sodium (132-148) mmol/L Potassium (3.6-5.2) mmol/L Chloride (98-107) mmol/L Carbon Dioxide (22-30) mmol/L Anion Gap (10-20) BUN (7-17) mg/dL Creatinine (0.7-1.2) mg/dL Est GFR ( Amer) Est GFR (Non-Af Amer) POC Glucose (mg/dL) (65-110) mg/dL Random Glucose (65-105) mg/dL Calcium (8.6-10.4) mg/dl Total Bilirubin (0.2-1.3) mg/dL AST (14-36) U/L ALT (9-52) U/L Alkaline Phosphatase (38-126) U/L Total Protein (6.3-8.3) g/dL Albumin (3.5-5.0) g/dL Globulin (2.2-3.9) gm/dL Albumin/Globulin Ratio (1.0-2.1) IgG, Serum (MS) 15.3 (4-86) mg/dL Stool Leukocytes, Qual (NEGATIVE) Laboratory Results - last 24 hr 04/09/17 04/12/17 04/14/17 16:44 08:00 17:39 WBC RBC Hgb Hct MCV MCH MCHC RDW Plt Count MPV Neut % (Auto) Lymph % (Auto) Bradford % (Auto) Eos % (Auto) Baso % (Auto) Neut # Lymph # Bradford # Eos # Baso # Neutrophils % (Manual) Band Neutrophils % Lymphocytes % (Manual) Monocytes % (Manual) Eosinophils % (Manual) Platelet Estimate Polychromasia Hypochromasia (manual) Poikilocytosis (manual Anisocytosis (manual) PT INR Sodium Potassium Chloride Carbon Dioxide Anion Gap BUN Creatinine Est GFR ( Amer) Est GFR (Non-Af Amer) POC Glucose (mg/dL) 96 Random Glucose Calcium Total Bilirubin AST ALT Alkaline Phosphatase Total Protein Albumin Globulin Albumin/Globulin Ratio IgG, Serum (MS) 15.3 Stool Leukocytes, Qual Negative 04/14/17 04/14/17 04/15/17 20:14 23:47 05:35 WBC 13.9 H RBC 3.47 L Hgb 10.2 L D Hct 28.7 L MCV 82.7 MCH 29.3 MCHC 35.4 RDW 15.0 H Plt Count 294 MPV 7.6 Neut % (Auto) 72.9 Lymph % (Auto) 5.8 L Bradford % (Auto) 15.5 H Eos % (Auto) 4.5 H Baso % (Auto) 1.3 Neut # 10.1 H Lymph # 0.8 L Bradford # 2.2 H Eos # 0.6 Baso # 0.2 Neutrophils % (Manual) 72 Band Neutrophils % 3 H Lymphocytes % (Manual) 7 L Monocytes % (Manual) 15 H Eosinophils % (Manual) 3 Platelet Estimate Normal Polychromasia Slight Hypochromasia (manual) Slight Poikilocytosis (manual Slight Anisocytosis (manual) Slight PT INR Sodium Potassium Chloride Carbon Dioxide Anion Gap BUN Creatinine Est GFR ( Amer) Est GFR (Non-Af Amer) POC Glucose (mg/dL) 127 H 109 Random Glucose Calcium Total Bilirubin AST ALT Alkaline Phosphatase Total Protein Albumin Globulin Albumin/Globulin Ratio IgG, Serum (MS) Stool Leukocytes, Qual 04/15/17 04/15/17 04/15/17 05:56 05:57 05:58 WBC 15.8 H RBC 3.68 L Hgb 10.8 L Hct 30.9 L MCV 84.0 MCH 29.2 MCHC 34.8 RDW 15.4 H Plt Count 334 MPV 7.9 Neut % (Auto) 62.5 Lymph % (Auto) 13.4 L Bradford % (Auto) 18.6 H Eos % (Auto) 5.2 H Baso % (Auto) 0.3 Neut # 9.8 H Lymph # 2.1 Bradford # 2.9 H Eos # 0.8 H Baso # 0.0 Neutrophils % (Manual) 50 Band Neutrophils % 14 H* Lymphocytes % (Manual) 10 L Monocytes % (Manual) 21 H Eosinophils % (Manual) 5 H Platelet Estimate Normal Polychromasia Slight Hypochromasia (manual) Poikilocytosis (manual Anisocytosis (manual) Slight PT 12.2 INR 1.1 Sodium 134 Potassium 3.7 Chloride 100 Carbon Dioxide 25 Anion Gap 12 BUN 41 H Creatinine 5.2 H Est GFR ( Amer) 11 Est GFR (Non-Af Amer) 9 POC Glucose (mg/dL) Random Glucose 112 H Calcium 7.9 L Total Bilirubin 0.8 AST 23 ALT 24 Alkaline Phosphatase 102 Total Protein 6.0 L Albumin 3.1 L D Globulin 3.0 Albumin/Globulin Ratio 1.0 IgG, Serum (MS) Stool Leukocytes, Qual 04/15/17 12:02 WBC RBC Hgb Hct MCV MCH MCHC RDW Plt Count MPV Neut % (Auto) Lymph % (Auto) Bradford % (Auto) Eos % (Auto) Baso % (Auto) Neut # Lymph # Bradford # Eos # Baso # Neutrophils % (Manual) Band Neutrophils % Lymphocytes % (Manual) Monocytes % (Manual) Eosinophils % (Manual) Platelet Estimate Polychromasia Hypochromasia (manual) Poikilocytosis (manual Anisocytosis (manual) PT INR Sodium Potassium Chloride Carbon Dioxide Anion Gap BUN Creatinine Est GFR ( Amer) Est GFR (Non-Af Amer) POC Glucose (mg/dL) 104 Random Glucose Calcium Total Bilirubin AST ALT Alkaline Phosphatase Total Protein Albumin Globulin Albumin/Globulin Ratio IgG, Serum (MS) Stool Leukocytes, Qual Critical Care Progress Note - Nutrition Nutrition: Nutrition Category Date Time Status NPO Diet [DIET] Diets 04/08/17 Dinner Active Assessment/Plan (1) Acute pancreatitis Current Visit: Yes Status: Acute Attending/Attestation - Attestation I have personally seen and examined this patient.: Yes I have fully participated in the care of the patient.: Yes I have reviewed all pertinent clinical information: Yes Notes (Text): 04/15/17 16:40 I have seen and examined the patient. Medical records, lab studies, and imaging were reviewed by me and a management plan was formulated on multidisciplinary rounds with resident Dr. Smith. I agree with their documented assessment and plan. PEJ placement was not successful. Second look at CT angio abdomen with GI and radiology, it is currently proposed that the patient may have SMA syndrome. Vascular surgery, Dr. Mendez consulted. Continue TPN. Continue Dialysis. Critical Care Time 35 minutes. Multi-disciplinary rounds were performed with house staff, nursing, speech therapy, respiratory therapy, pharmacy and nutrition with integrated input from the primary team/attending and other consulting services. The documented time is cumulative and includes review of patient data/exams/labs/chart review and examination of the patient on rounds and throughout the day; time is exclusive of any procedures or teaching time.
--- NOTE | 2017-04-15 17:16 | CP.PCM.PN ---
Subjective - Date & Time of Evaluation Date of Evaluation: 04/15/17 Time of Evaluation: 07:00 - Subjective Subjective: events noted iv rx renewed Objective - Vital Signs/Intake and Output Vital Signs (last 24 hours): Temp Pulse Resp BP Pulse Ox 97.8 F 132 H 23 125/91 H 99 04/15/17 16:00 04/15/17 16:30 04/15/17 16:30 04/15/17 16:30 04/15/17 16:30 Intake and Output: 04/15/17 04/15/17 06:59 18:59 Intake Total 1094 583 Output Total 575 Balance 519 583 - Medications Medications: Current Medications Acetaminophen (Tylenol 325 Mg Supp) 325 mg NE Q4 PRN PRN Reason: Fever >100.4 F Last Admin: 04/13/17 04:38 Dose: 325 mg Ascorbic Acid (Vitamin C 500 Mg Tab) 500 mg PO DAILY [facility] Last Admin: 04/15/17 10:14 Dose: Not Given Haloperidol Lactate (Haldol) 1 mg IVP BID PRN PRN Reason: Agitation Last Admin: 04/12/17 22:21 Dose: 1 mg Hydromorphone HCl (Dilaudid) 0.5 mg IVP Q4H PRN PRN Reason: Pain, severe (8-10) Last Admin: 04/15/17 16:13 Dose: 0.5 mg Piperacillin Sod/Tazobactam Sod (Zosyn 2.25 Gm Iv Premix) 2.25 gm in 50 mls @ 100 mls/hr IVPB Q8H [facility] Last Admin: 04/15/17 10:15 Dose: 100 mls/hr Pantoprazole Sodium 80 mg/ (Sodium Chloride) 100 mls @ 10 mls/hr IVPB .Q10H [facility] PRN Reason: 8 MG/HR Last Admin: 04/15/17 03:21 Dose: Not Given Chromium/Copper/Manganese/Zinc 1 ml/ Heparin Sodium (Porcine ) 1,000 units/ Amino Acids/Electrolytes/Dextrose 1,002 mls @ 63 mls/hr IV .[id number] [facility] Stop: 04/15/17 18:00 Last Admin: 04/15/17 16:18 Dose: Not Given Multivitamins/Vitamin C 10 ml/Chromium/Copper/Manganese/Seleni/Zn 1 ml/ Heparin Sodium (Porcine) 1,000 units/ Amino Acids/Electrolytes/Dextrose 1,011.2 mls @ 63 mls/hr IV .Q16H4M ONE Stop: 04/16/17 10:03 Chromium/Copper/Manganese/Seleni/Zn 1 ml/ Heparin Sodium (Porcine) 1,000 units/ Amino Acids/Electrolytes/Dextrose 1,001.2 mls @ 63 mls/hr IV .[id number] [facility] Stop: 04/16/17 17:59 Lorazepam (Ativan) 0.5 mg IVP Q3H PRN PRN Reason: Anxiety Last Admin: 04/15/17 15:51 Dose: 0.5 mg Metoclopramide HCl (Reglan) 5 mg IVP Q6 [facility] Last Admin: 04/15/17 12:30 Dose: Not Given Ondansetron HCl (Zofran Inj) 4 mg IVP Q6H PRN PRN Reason: Nausea/Vomiting Last Admin: 04/11/17 21:39 Dose: 4 mg Saccharomyces Boulardii (Florastor) 250 mg PO BID [facility] Last Admin: 04/15/17 09:40 Dose: Not Given Thiamine HCl (Vitamin B1 Tab) 100 mg PO DAILY [facility] Last Admin: 04/15/17 10:13 Dose: Not Given - Labs Labs: 04/15/17 05:56 04/15/17 05:58 PT 12.2 SECONDS (9.7-12.2) 04/15/17 05:57 INR 1.1 04/15/17 05:57 APTT 30 SECONDS (21-34) 04/08/17 12:45 - Constitutional Appears: Non-toxic, Cachectic, Chronically Ill - Head Exam Head Exam: NORMOCEPHALIC - Eye Exam Eye Exam: absent: Scleral icterus - ENT Exam ENT Exam: Mucous Membranes Dry - Neck Exam Neck Exam: absent: Lymphadenopathy - Respiratory Exam Respiratory Exam: Decreased Breath Sounds - Cardiovascular Exam Cardiovascular Exam: REGULAR RHYTHM - GI/Abdominal Exam GI & Abdominal Exam: Distended - Rectal Exam Rectal Exam: Deferred - Exam Exam: NORMAL INSPECTION - Extremities Exam Extremities Exam: absent: Pedal Edema - Back Exam Back Exam: absent: CVA tenderness (L), CVA tenderness (R) - Neurological Exam Neurological Exam: Alert, Altered Assessment and Plan (1) Acute pancreatitis Status: Acute (2) Leucocytosis Status: Acute
[2017-04-15] MEDS ORDERED: TPN#3 IV ONE (18:00)
--- NOTE | 2017-04-15 20:24 | CP.PCM.PN ---
<Katheryn Silveira - Last Filed: 04/15/17 20:43> Subjective - Date & Time of Evaluation Date of Evaluation: 04/15/17 Time of Evaluation: 13:00 - Subjective Subjective: GI Fellow PGY4 Progress Note Pt seen and evaluated at bedside, pt nonverbal but arousable and becomes very agitated and in pain/moaning. Per nursing pt had 350cc bloody outpt via NGT to suction. One small smear green BM, no melena or hematochezia. Pt still tachycardic but BP improved from yesterday. Hgb 10.4 s/p 3 U PRBCs. Pt underwent EGD today for further evaluation. ROS: A 12pt ROS was unable to be obtained, pt nonverbal Objective - Vital Signs/Intake and Output Vital Signs (last 24 hours): Temp Pulse Resp BP Pulse Ox 97.8 F 124 H 26 H 125/90 97 04/15/17 16:00 04/15/17 19:00 04/15/17 19:00 04/15/17 19:00 04/15/17 19:00 Intake and Output: 04/15/17 04/16/17 18:59 06:59 Intake Total 865 146 Output Total 150 Balance 715 146 - Medications Medications: Current Medications Acetaminophen (Tylenol 325 Mg Supp) 325 mg MO Q4 PRN PRN Reason: Fever >100.4 F Last Admin: 04/13/17 04:38 Dose: 325 mg Ascorbic Acid (Vitamin C 500 Mg Tab) 500 mg PO DAILY [facility] Last Admin: 04/15/17 10:14 Dose: Not Given Haloperidol Lactate (Haldol) 1 mg IVP BID PRN PRN Reason: Agitation Last Admin: 04/15/17 19:46 Dose: 1 mg Hydromorphone HCl (Dilaudid) 0.5 mg IVP Q4H PRN PRN Reason: Pain, severe (8-10) Last Admin: 04/15/17 16:13 Dose: 0.5 mg Piperacillin Sod/Tazobactam Sod (Zosyn 2.25 Gm Iv Premix) 2.25 gm in 50 mls @ 100 mls/hr IVPB Q8H [facility] Last Admin: 04/15/17 17:36 Dose: 100 mls/hr Pantoprazole Sodium 80 mg/ (Sodium Chloride) 100 mls @ 10 mls/hr IVPB .Q10H [facility] PRN Reason: 8 MG/HR Last Admin: 04/15/17 18:01 Dose: 10 mls/hr Multivitamins/Vitamin C 10 ml/Chromium/Copper/Manganese/Seleni/Zn 1 ml/ Heparin Sodium (Porcine) 1,000 units/ Amino Acids/Electrolytes/Dextrose 1,011.2 mls @ 63 mls/hr IV .Q16H4M ONE Stop: 04/16/17 10:03 Last Admin: 04/15/17 17:27 Dose: 63 mls/hr Chromium/Copper/Manganese/Seleni/Zn 1 ml/ Heparin Sodium (Porcine) 1,000 units/ Amino Acids/Electrolytes/Dextrose 1,001.2 mls @ 63 mls/hr IV .[id number] [facility] Stop: 04/16/17 17:59 Lorazepam (Ativan) 0.5 mg IVP Q3H PRN PRN Reason: Anxiety Last Admin: 04/15/17 19:47 Dose: 0.5 mg Metoclopramide HCl (Reglan) 5 mg IVP Q6 [facility] Last Admin: 04/15/17 18:00 Dose: 5 mg Ondansetron HCl (Zofran Inj) 4 mg IVP Q6H PRN PRN Reason: Nausea/Vomiting Last Admin: 04/11/17 21:39 Dose: 4 mg Saccharomyces Boulardii (Florastor) 250 mg PO BID [facility] Last Admin: 04/15/17 17:38 Dose: Not Given Thiamine HCl (Vitamin B1 Tab) 100 mg PO DAILY [facility] Last Admin: 04/15/17 10:13 Dose: Not Given - Labs Labs: 04/15/17 05:56 04/15/17 05:58 PT 12.2 SECONDS (9.7-12.2) 04/15/17 05:57 INR 1.1 04/15/17 05:57 APTT 30 SECONDS (21-34) 04/08/17 12:45 - Constitutional Appears: In Acute Distress, Agitated, Confused - Head Exam Head Exam: ATRAUMATIC, NORMAL INSPECTION, NORMOCEPHALIC - Eye Exam Eye Exam: EOMI, PERRL - ENT Exam ENT Exam: Mucous Membranes Dry Assessment and Plan - Assessment and Plan (Free Text) Assessment: Alondra Miguel is a 37F w/ hx of Schizophrenia, mental disability who presents to the hospital due to abd pain diarrhea. She was found to have acute pancreatitis and severe gastric distention with retained food which markedly improved after NG placement. Subsequently, her condition again worsened after a few days, after resuming diet. She also has presumed sepsis of unknown source. Renal function is worsening with Cr rising and BUN s/p HD. 1. Upper GI Bleed 2. Anemia 3. Sepsis 4. Hemorrhagic/ischemic gastropathy 5. Phytobezor, marked stomach distention 6. Complicated Acute pancreatitis 7. SMA syndrome 8. Renal failure s/p HD 9. Afib now sinus tachy Plan: -Continue supportive care with pain control -s/p EGD with ulcerated mucosa, no signs of active GI bleed, clot and friability , phytobezore cleared from stomach -Continue NPO, on TPN -No NGT tube, stomach clear of blood/clots, food bezor, avoid NGT trauma -Unable to place PEJ, will need surgical evaluation -Continue PPI bid -Pancreatitis improved, continue IVFs -Continue aggressive resusitation and Keep hgb > 7 -CT A/P Angio with no signs of arterial occlusion, pneumatosis of gastric wall and emphysemoutous changes -Continue antibiotics as per ID, WBC decreasing, afebrile, blood/urine cx negative -Renal failure, oliguric, s/p HD with improved renal function -Symptoms likely due to SMA syndrome which can be seen on multiple imaging causing duodenal obstruction leading to food bezor and gastric pneumatosis, recommend surgical evaluation and recommendation -Discussed with ICU team -Will continue to follow closely <Dov Meade - Last Filed: 04/15/17 23:16> Objective - Vital Signs/Intake and Output Vital Signs (last 24 hours): Temp Pulse Resp BP Pulse Ox 98.4 F 117 H 14 102/64 100 04/15/17 22:52 04/15/17 21:00 04/15/17 21:00 04/15/17 20:30 04/15/17 21:00 Intake and Output: 04/15/17 04/16/17 18:59 06:59 Intake Total 865 365 Output Total 150 Balance 715 365 - Medications Medications: Current Medications Acetaminophen (Tylenol 325 Mg Supp) 325 mg MO Q4 PRN PRN Reason: Fever >100.4 F Last Admin: 04/13/17 04:38 Dose: 325 mg Ascorbic Acid (Vitamin C 500 Mg Tab) 500 mg PO DAILY [facility] Last Admin: 04/15/17 10:14 Dose: Not Given Haloperidol Lactate (Haldol) 1 mg IVP BID PRN PRN Reason: Agitation Last Admin: 04/15/17 19:46 Dose: 1 mg Hydromorphone HCl (Dilaudid) 0.5 mg IVP Q4H PRN PRN Reason: Pain, severe (8-10) Last Admin: 04/15/17 21:38 Dose: 0.5 mg Piperacillin Sod/Tazobactam Sod (Zosyn 2.25 Gm Iv Premix) 2.25 gm in 50 mls @ 100 mls/hr IVPB Q8H [facility] Last Admin: 04/15/17 17:36 Dose: 100 mls/hr Pantoprazole Sodium 80 mg/ (Sodium Chloride) 100 mls @ 10 mls/hr IVPB .Q10H [facility] PRN Reason: 8 MG/HR Last Admin: 04/15/17 18:01 Dose: 10 mls/hr Multivitamins/Vitamin C 10 ml/Chromium/Copper/Manganese/Seleni/Zn 1 ml/ Heparin Sodium (Porcine) 1,000 units/ Amino Acids/Electrolytes/Dextrose 1,011.2 mls @ 63 mls/hr IV .Q16H4M ONE Stop: 04/16/17 10:03 Last Admin: 04/15/17 17:27 Dose: 63 mls/hr Chromium/Copper/Manganese/Seleni/Zn 1 ml/ Heparin Sodium (Porcine) 1,000 units/ Amino Acids/Electrolytes/Dextrose 1,001.2 mls @ 63 mls/hr IV .[id number] [facility] Stop: 04/16/17 17:59 Lorazepam (Ativan) 0.5 mg IVP Q3H PRN PRN Reason: Anxiety Last Admin: 04/15/17 19:47 Dose: 0.5 mg Ondansetron HCl (Zofran Inj) 4 mg IVP Q6H PRN PRN Reason: Nausea/Vomiting Last Admin: 04/11/17 21:39 Dose: 4 mg Saccharomyces Boulardii (Florastor) 250 mg PO BID [facility] Last Admin: 04/15/17 17:38 Dose: Not Given Thiamine HCl (Vitamin B1 Tab) 100 mg PO DAILY [facility] Last Admin: 04/15/17 10:13 Dose: Not Given - Labs Labs: 04/15/17 05:56 04/15/17 05:58 PT 12.2 SECONDS (9.7-12.2) 04/15/17 05:57 INR 1.1 04/15/17 05:57 APTT 30 SECONDS (21-34) 04/08/17 12:45 Attending/Attestation - Attestation I have personally seen and examined this patient.: Yes I have fully participated in the care of the patient.: Yes I have reviewed all pertinent clinical information, including history, physical exam and plan: Yes Notes (Text): 04/15/17 23:06 37 year old female with h/o mental disability/schizophrenia who is admitted with abdominal pain, found to have severe gastric distention, acute pancreatitis , acute renal failure, severe upper GI bleeding due to gastric ulceration, critically ill in the ICU. Reviewed the case extensively with radiology and ICU. Performed an enteroscopy today as well. 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 She has undergone multiple endoscopies including today. The gastric bezoar was removed today. During the enteroscopy, the 3rd portion of the duodenum appeared to be compressed/pinched, with extrinsic visible pulsations, further supportive of SMA syndrome. The potential therapeutic options at this point are surgical and include the "strong" procedure, a gastroenterostomy, or duodenoenterostomy. Defer to surgery the approach going forward. Would probably favor a duodenoenterostomy or strong procedure considering how ulcerated her gastric mucosa is, as it may not be as suitable for an enteric anastomosis. 1. SMA syndrome 2. Acute pancreatitis 3. Gastric bezoar 4. Gastric ulcer with hemorrhage Plan: -continue supportive care for now, her stomach has been decompressed, would maintain NPO status for now and continue TPN -would avoid NGT for now as her proximal stomach is so ulcerated, insertion may preciptate bleeding, though she may ultimately require placement for feedings eventually -await surgical consideration of definitive treatment for SMA syndrome -continue IV PPI BID -continue dialysis per nephrology -continue antibiotics
--- NOTE | 2017-04-15 22:56 | CP.PCM.PN ---
Subjective - Date & Time of Evaluation Date of Evaluation: 04/15/17 Time of Evaluation: 19:10 - Subjective Subjective: Patient HR ranging around 120s No new cardiac events noted Objective - Vital Signs/Intake and Output Vital Signs (last 24 hours): Temp Pulse Resp BP Pulse Ox 98.4 F 117 H 14 102/64 100 04/15/17 22:52 04/15/17 21:00 04/15/17 21:00 04/15/17 20:30 04/15/17 21:00 Intake and Output: 04/15/17 04/16/17 18:59 06:59 Intake Total 865 365 Output Total 150 Balance 715 365 - Medications Medications: Current Medications Acetaminophen (Tylenol 325 Mg Supp) 325 mg [place] Q4 PRN PRN Reason: Fever >100.4 F Last Admin: 04/13/17 04:38 Dose: 325 mg Ascorbic Acid (Vitamin C 500 Mg Tab) 500 mg PO DAILY [facility] Last Admin: 04/15/17 10:14 Dose: Not Given Haloperidol Lactate (Haldol) 1 mg IVP BID PRN PRN Reason: Agitation Last Admin: 04/15/17 19:46 Dose: 1 mg Hydromorphone HCl (Dilaudid) 0.5 mg IVP Q4H PRN PRN Reason: Pain, severe (8-10) Last Admin: 04/15/17 21:38 Dose: 0.5 mg Piperacillin Sod/Tazobactam Sod (Zosyn 2.25 Gm Iv Premix) 2.25 gm in 50 mls @ 100 mls/hr IVPB Q8H [facility] Last Admin: 04/15/17 17:36 Dose: 100 mls/hr Pantoprazole Sodium 80 mg/ (Sodium Chloride) 100 mls @ 10 mls/hr IVPB .Q10H [facility]USTIN PRN Reason: 8 MG/HR Last Admin: 04/15/17 18:01 Dose: 10 mls/hr Multivitamins/Vitamin C 10 ml/Chromium/Copper/Manganese/Seleni/Zn 1 ml/ Heparin Sodium (Porcine) 1,000 units/ Amino Acids/Electrolytes/Dextrose 1,011.2 mls @ 63 mls/hr IV .Q16H4M ONE Stop: 04/16/17 10:03 Last Admin: 04/15/17 17:27 Dose: 63 mls/hr Chromium/Copper/Manganese/Seleni/Zn 1 ml/ Heparin Sodium (Porcine) 1,000 units/ Amino Acids/Electrolytes/Dextrose 1,001.2 mls @ 63 mls/hr IV .[id number] [facility] Stop: 04/16/17 17:59 Lorazepam (Ativan) 0.5 mg IVP Q3H PRN PRN Reason: Anxiety Last Admin: 04/15/17 19:47 Dose: 0.5 mg Ondansetron HCl (Zofran Inj) 4 mg IVP Q6H PRN PRN Reason: Nausea/Vomiting Last Admin: 04/11/17 21:39 Dose: 4 mg Saccharomyces Boulardii (Florastor) 250 mg PO BID [facility] Last Admin: 04/15/17 17:38 Dose: Not Given Thiamine HCl (Vitamin B1 Tab) 100 mg PO DAILY [facility] Last Admin: 04/15/17 10:13 Dose: Not Given - Labs Labs: 04/15/17 05:56 04/15/17 05:58 PT 12.2 SECONDS (9.7-12.2) 04/15/17 05:57 INR 1.1 04/15/17 05:57 APTT 30 SECONDS (21-34) 04/08/17 12:45 Assessment and Plan - Assessment and Plan (Free Text) Assessment: Assessment & Plan - Assessment and Plan (Free Text) Assessment: Tachycardia JIMBO Acute pancreatitis Volume depletion Sepsis syndrome Intra-abdominal fluid collection- possible abscess Plan: ECHO: Normal EF and no valvular issues Tachycardia most likely due to medical issues Cardizem drip/PO as needed Physical Exam - Constitutional Appears: In Acute Distress, Agitated, Chronically Ill - Head Exam Head Exam: ATRAUMATIC, NORMAL INSPECTION - Eye Exam Eye Exam: EOMI, Normal appearance - Neck Exam Neck exam: Positive for: Normal Inspection. Negative for: Tenderness - Respiratory Exam Respiratory Exam: Decreased Breath Sounds, NORMAL BREATHING PATTERN - Cardiovascular Exam Cardiovascular Exam: Tachycardia, +S1 - GI/Abdominal Exam GI & Abdominal Exam: Soft, Tenderness - Extremities Exam Extremities exam: Positive for: normal inspection. Negative for: tenderness - Neurological Exam Neurological exam: Altered, CN II-XII Intact - Skin Skin Exam: Dry, Warm
[2017-04-16] MEDS: Piperacill/Tazo 2.25gm in Dex 2.25 GM/50 ML BAG IVPB SCH ×3 (02:11→17:22)
[2017-04-16] MEDS: Pantoprazole 80 MG in Sodium Chloride 0.9% 100 ML IVPB SCH ×3 (02:49→18:19)
[2017-04-16 06:31] LABS: BASO % 0.3 % (0.0-2.0); EOS # 0.5 K/uL (0.0-0.7); EOS % 3.9 % (0.0-4.0); HEMOGLOBIN 10.5 g/dL (11.0-16.0); LYMPH # 1.5 K/uL (1.0-4.3); LYMPH % 11.1 % (20.0-40.0); MEAN CELL VOLUME 84.5 fL (81.0-99.0); MEAN CORPUSCULAR HEMOGLOBIN 28.9 pg (27.0-31.0); MEAN CORPUSCULAR HGB CONC 34.2 g/dL (33.0-37.0); MEAN PLATELET VOLUME 7.7 fL (7.2-11.7); MONO # 2.6 K/uL (0.0-0.8); MONO % 18.7 % (0.0-10.0); NRBC % 0.1 % (0.0-2.0); RBC 3.64 Mil/uL (3.80-5.20); RED CELL DISTRIBUTION WIDTH 15.4 % (11.5-14.5); WHITE BLOOD COUNT 13.7 K/uL (4.8-10.8)
[2017-04-16 06:48] LABS: ALBUMIN 2.7 g/dL (3.5-5.0); CALCIUM 8.2 mg/dl (8.6-10.4)
[2017-04-16 07:47] LABS: FOLATE 12.6 ng/mL
--- NOTE | 2017-04-16 09:16 | CP.PCM.PN ---
Subjective - Date & Time of Evaluation Date of Evaluation: 04/16/17 Time of Evaluation: 09:13 - Subjective Subjective: On dialysis; to UF 2000ml Agitated, confused, with sinus tach- 120s s/p EGD- results noted on TPN Uo- 390 ml this AM lytes acceptable Objective - Vital Signs/Intake and Output Vital Signs (last 24 hours): Temp Pulse Resp BP Pulse Ox 98.4 F 121 H 14 119/88 96 04/15/17 22:52 04/16/17 06:00 04/16/17 06:00 04/16/17 05:08 04/16/17 06:00 Intake and Output: 04/16/17 04/16/17 06:59 18:59 Intake Total 936 146 Output Total 390 100 Balance 546 46 - Medications Medications: Current Medications Acetaminophen (Tylenol 325 Mg Supp) 325 mg [place] Q4 PRN PRN Reason: Fever >100.4 F Last Admin: 04/13/17 04:38 Dose: 325 mg Ascorbic Acid (Vitamin C 500 Mg Tab) 500 mg PO DAILY [facility] Last Admin: 04/15/17 10:14 Dose: Not Given Haloperidol Lactate (Haldol) 1 mg IVP BID PRN PRN Reason: Agitation Last Admin: 04/16/17 05:45 Dose: 1 mg Hydromorphone HCl (Dilaudid) 0.5 mg IVP Q4H PRN PRN Reason: Pain, severe (8-10) Last Admin: 04/16/17 08:13 Dose: 0.5 mg Piperacillin Sod/Tazobactam Sod (Zosyn 2.25 Gm Iv Premix) 2.25 gm in 50 mls @ 100 mls/hr IVPB Q8H [facility] Last Admin: 04/16/17 02:11 Dose: 100 mls/hr Pantoprazole Sodium 80 mg/ (Sodium Chloride) 100 mls @ 10 mls/hr IVPB .Q10H [facility] PRN Reason: 8 MG/HR Last Admin: 04/16/17 09:05 Dose: 10 mls/hr Multivitamins/Vitamin C 10 ml/Chromium/Copper/Manganese/Seleni/Zn 1 ml/ Heparin Sodium (Porcine) 1,000 units/ Amino Acids/Electrolytes/Dextrose 1,011.2 mls @ 63 mls/hr IV .Q16H4M ONE Stop: 04/16/17 10:03 Last Admin: 04/15/17 17:27 Dose: 63 mls/hr Chromium/Copper/Manganese/Seleni/Zn 1 ml/ Heparin Sodium (Porcine) 1,000 units/ Amino Acids/Electrolytes/Dextrose 1,001.2 mls @ 63 mls/hr IV .[id number] [facility] Stop: 04/16/17 17:59 Lorazepam (Ativan) 0.5 mg IVP Q3H PRN PRN Reason: Anxiety Last Admin: 04/16/17 05:44 Dose: 0.5 mg Ondansetron HCl (Zofran Inj) 4 mg IVP Q6H PRN PRN Reason: Nausea/Vomiting Last Admin: 04/11/17 21:39 Dose: 4 mg Saccharomyces Boulardii (Florastor) 250 mg PO BID [facility] Last Admin: 04/15/17 17:38 Dose: Not Given Thiamine HCl (Vitamin B1 Tab) 100 mg PO DAILY [facility] Last Admin: 04/15/17 10:13 Dose: Not Given - Labs Labs: 04/16/17 06:22 04/16/17 06:22 PT 12.2 SECONDS (9.7-12.2) 04/15/17 05:57 INR 1.1 04/15/17 05:57 APTT 30 SECONDS (21-34) 04/08/17 12:45 - Constitutional Appears: In Acute Distress, Chronically Ill - Head Exam Head Exam: ATRAUMATIC, NORMAL INSPECTION - Eye Exam Eye Exam: EOMI, Normal appearance - Neck Exam Neck Exam: Normal Inspection. absent: Tenderness - Respiratory Exam Respiratory Exam: Clear to Ausculation Bilateral, NORMAL BREATHING PATTERN - Cardiovascular Exam Cardiovascular Exam: Tachycardia, +S1 - GI/Abdominal Exam GI & Abdominal Exam: Soft. absent: Tenderness - Extremities Exam Extremities Exam: Normal Inspection. absent: Tenderness - Neurological Exam Neurological Exam: Altered, CN II-XII Intact - Psychiatric Exam Psychiatric exam: Agitated, Anxious - Skin Skin Exam: Dry, Warm Assessment and Plan (1) JIMBO (acute kidney injury) Status: Acute (2) Acute pancreatitis Status: Acute (3) SBO (small bowel obstruction) Status: Acute (4) Schizophrenia Status: Acute - Assessment and Plan (Free Text) Plan: Continue dialysis TTS Monitor Uyuko Evans
--- NOTE | 2017-04-16 09:34 | CP.PCM.PN ---
Subjective - Date & Time of Evaluation Date of Evaluation: 04/16/17 Time of Evaluation: 09:31 - Subjective Subjective: Surgery Pt s&e. Pt in disress. Tachycardic. NGT removed. Objective - Vital Signs/Intake and Output Vital Signs (last 24 hours): Temp Pulse Resp BP Pulse Ox 97.4 F L 139 H 15 102/75 96 04/16/17 08:40 04/16/17 08:40 04/16/17 08:40 04/16/17 08:40 04/16/17 06:00 Intake and Output: 04/16/17 04/16/17 06:59 18:59 Intake Total 936 146 Output Total 390 100 Balance 546 46 - Medications Medications: Current Medications Acetaminophen (Tylenol 325 Mg Supp) 325 mg [place] Q4 PRN PRN Reason: Fever >100.4 F Last Admin: 04/13/17 04:38 Dose: 325 mg Ascorbic Acid (Vitamin C 500 Mg Tab) 500 mg PO DAILY [facility] Last Admin: 04/15/17 10:14 Dose: Not Given Haloperidol Lactate (Haldol) 1 mg IVP BID PRN PRN Reason: Agitation Last Admin: 04/16/17 05:45 Dose: 1 mg Hydromorphone HCl (Dilaudid) 0.5 mg IVP Q4H PRN PRN Reason: Pain, severe (8-10) Last Admin: 04/16/17 08:13 Dose: 0.5 mg Piperacillin Sod/Tazobactam Sod (Zosyn 2.25 Gm Iv Premix) 2.25 gm in 50 mls @ 100 mls/hr IVPB Q8H [facility] Last Admin: 04/16/17 02:11 Dose: 100 mls/hr Pantoprazole Sodium 80 mg/ (Sodium Chloride) 100 mls @ 10 mls/hr IVPB .Q10H [facility] PRN Reason: 8 MG/HR Last Admin: 04/16/17 09:05 Dose: 10 mls/hr Multivitamins/Vitamin C 10 ml/Chromium/Copper/Manganese/Seleni/Zn 1 ml/ Heparin Sodium (Porcine) 1,000 units/ Amino Acids/Electrolytes/Dextrose 1,011.2 mls @ 63 mls/hr IV .Q16H4M ONE Stop: 04/16/17 10:03 Last Admin: 04/15/17 17:27 Dose: 63 mls/hr Chromium/Copper/Manganese/Seleni/Zn 1 ml/ Heparin Sodium (Porcine) 1,000 units/ Amino Acids/Electrolytes/Dextrose 1,001.2 mls @ 63 mls/hr IV .[id number] [facility] Stop: 04/16/17 17:59 Lorazepam (Ativan) 0.5 mg IVP Q3H PRN PRN Reason: Anxiety Last Admin: 04/16/17 05:44 Dose: 0.5 mg Ondansetron HCl (Zofran Inj) 4 mg IVP Q6H PRN PRN Reason: Nausea/Vomiting Last Admin: 04/11/17 21:39 Dose: 4 mg Saccharomyces Boulardii (Florastor) 250 mg PO BID [facility] Last Admin: 04/15/17 17:38 Dose: Not Given Thiamine HCl (Vitamin B1 Tab) 100 mg PO DAILY [facility] Last Admin: 04/15/17 10:13 Dose: Not Given - Labs Labs: 04/16/17 06:22 04/16/17 06:22 PT 12.2 SECONDS (9.7-12.2) 04/15/17 05:57 INR 1.1 04/15/17 05:57 APTT 30 SECONDS (21-34) 04/08/17 12:45 - Constitutional Appears: In Acute Distress, Agitated, Confused - Head Exam Head Exam: ATRAUMATIC, NORMAL INSPECTION, NORMOCEPHALIC - Eye Exam Eye Exam: EOMI, Normal appearance, PERRL Pupil Exam: NORMAL ACCOMODATION, PERRL - ENT Exam ENT Exam: Mucous Membranes Moist, Normal Exam - Neck Exam Neck Exam: Full ROM, Normal Inspection. absent: Lymphadenopathy - Respiratory Exam Respiratory Exam: Clear to Ausculation Bilateral, NORMAL BREATHING PATTERN - Cardiovascular Exam Cardiovascular Exam: Tachycardia, +S1, +S2. absent: Murmur - GI/Abdominal Exam GI & Abdominal Exam: Soft, Tenderness, Normal Bowel Sounds. absent: Distended, Firm, Guarding, Rigid, Rebound - Extremities Exam Extremities Exam: Normal Capillary Refill, Normal Inspection. absent: Joint Swelling, Pedal Edema - Back Exam Back Exam: NORMAL INSPECTION - Neurological Exam Neurological Exam: Altered, Awake, CN II-XII Intact. absent: Alert, Normal Gait , Oriented x3 - Psychiatric Exam Psychiatric exam: absent: Normal Mood - Skin Skin Exam: Dry, Intact, Normal Color, Warm Assessment and Plan - Assessment and Plan (Free Text) Assessment: Gastric ulcer and SMA syndrome -OR for Tuesday Ex lap -Consent obtained from family -NPO after midnight on Sun -ICU management DW Dr. Mendez
[2017-04-16] MEDS ORDERED: Acetylcysteine 20% Inhal Soln (4ml) INH SCH ×2 (09:45→14:00)
--- NOTE | 2017-04-16 09:47 | CP.PCM.PN ---
Subjective - Date & Time of Evaluation Date of Evaluation: 04/16/17 Time of Evaluation: 09:46 - Subjective Subjective: will discuss with family re options to deal with SMA /duidenal obstruction Patient is high risk for any intervention Objective - Vital Signs/Intake and Output Vital Signs (last 24 hours): Temp Pulse Resp BP Pulse Ox 97.4 F L 139 H 18 121/97 H 96 04/16/17 08:40 04/16/17 08:40 04/16/17 09:40 04/16/17 09:40 04/16/17 06:00 Intake and Output: 04/16/17 04/16/17 06:59 18:59 Intake Total 936 146 Output Total 390 100 Balance 546 46 - Medications Medications: Current Medications Acetaminophen (Tylenol 325 Mg Supp) [address] [place] Q4 PRN PRN Reason: Fever >100.4 F Last Admin: 04/13/17 04:38 Dose: 325 mg Acetylcysteine (Acetylcysteine 20%) 4 ml INH RQ6 AG[facility] Albuterol/Ipratropium (Duoneb 3 Mg/0.5 Mg (3 Ml) Ud) 3 ml INH RQ6 AG[facility] Ascorbic Acid (Vitamin C 500 Mg Tab) 500 mg PO DAILY [facility] Last Admin: 04/15/17 10:14 Dose: Not Given Haloperidol Lactate (Haldol) 1 mg IVP BID PRN PRN Reason: Agitation Last Admin: 04/16/17 05:45 Dose: 1 mg Hydromorphone HCl (Dilaudid) 0.5 mg IVP Q4H PRN PRN Reason: Pain, severe (8-10) Last Admin: 04/16/17 08:13 Dose: 0.5 mg Piperacillin Sod/Tazobactam Sod (Zosyn 2.25 Gm Iv Premix) 2.25 gm in 50 mls @ 100 mls/hr IVPB Q8H [facility] Last Admin: 04/16/17 02:11 Dose: 100 mls/hr Pantoprazole Sodium 80 mg/ (Sodium Chloride) 100 mls @ 10 mls/hr IVPB .Q10H [facility] PRN Reason: 8 MG/HR Last Admin: 04/16/17 09:05 Dose: 10 mls/hr Multivitamins/Vitamin C 10 ml/Chromium/Copper/Manganese/Seleni/Zn 1 ml/ Heparin Sodium (Porcine) 1,000 units/ Amino Acids/Electrolytes/Dextrose 1,011.2 mls @ 63 mls/hr IV .Q16H4M ONE Stop: 04/16/17 10:03 Last Admin: 04/15/17 17:27 Dose: 63 mls/hr Chromium/Copper/Manganese/Seleni/Zn 1 ml/ Heparin Sodium (Porcine) 1,000 units/ Amino Acids/Electrolytes/Dextrose 1,001.2 mls @ 63 mls/hr IV .[id number] [facility] Stop: 04/16/17 17:59 Lorazepam (Ativan) 0.5 mg IVP Q3H PRN PRN Reason: Anxiety Last Admin: 04/16/17 05:44 Dose: 0.5 mg Ondansetron HCl (Zofran Inj) 4 mg IVP Q6H PRN PRN Reason: Nausea/Vomiting Last Admin: 04/11/17 21:39 Dose: 4 mg Saccharomyces Boulardii (Florastor) 250 mg PO BID [facility] Last Admin: 04/15/17 17:38 Dose: Not Given Thiamine HCl (Vitamin B1 Tab) 100 mg PO DAILY [facility] Last Admin: 04/15/17 10:13 Dose: Not Given - Labs Labs: 04/16/17 06:22 04/16/17 06:22 PT 12.2 SECONDS (9.7-12.2) 04/15/17 05:57 INR 1.1 04/15/17 05:57 APTT 30 SECONDS (21-34) 04/08/17 12:45
[2017-04-16] MEDS: Saccharomyces Boulardi 250 mg Cap PO SCH ×2 (10:00→17:20)
[2017-04-16] MEDS ORDERED: TPN#4 IV SCH (10:04)
--- NOTE | 2017-04-16 11:37 | CP.PCM.PN ---
Subjective - Date & Time of Evaluation Date of Evaluation: 04/16/17 Time of Evaluation: 09:00 - Subjective Subjective: Dr. Reyes note: Patient is seen and examined in room. Family is present in room with patient. She is very uncomfortable but also non verbale. She looks to be in pain and is tachycardic on the monitor. Objective - Vital Signs/Intake and Output Vital Signs (last 24 hours): Temp Pulse Resp BP Pulse Ox 97.4 F L 139 H 18 111/84 96 04/16/17 08:40 04/16/17 08:40 04/16/17 09:55 04/16/17 10:55 04/16/17 06:00 Intake and Output: 04/16/17 04/16/17 06:59 18:59 Intake Total 936 146 Output Total 390 100 Balance 546 46 - Medications Medications: Current Medications Acetaminophen (Tylenol 325 Mg Supp) 325 mg [place] Q4 PRN PRN Reason: Fever >100.4 F Last Admin: 04/13/17 04:38 Dose: 325 mg Acetylcysteine (Acetylcysteine 20%) 4 ml INH RQ6 AGUSTIN Albuterol/Ipratropium (Duoneb 3 Mg/0.5 Mg (3 Ml) Ud) 3 ml INH RQ6 AG[facility] Ascorbic Acid (Vitamin C 500 Mg Tab) 500 mg PO DAILY [facility] Last Admin: 04/15/17 10:14 Dose: Not Given Haloperidol Lactate (Haldol) 1 mg IVP BID PRN PRN Reason: Agitation Last Admin: 04/16/17 05:45 Dose: 1 mg Hydromorphone HCl (Dilaudid) 0.5 mg IVP Q4H PRN PRN Reason: Pain, severe (8-10) Last Admin: 04/16/17 08:13 Dose: 0.5 mg Piperacillin Sod/Tazobactam Sod (Zosyn 2.25 Gm Iv Premix) 2.25 gm in 50 mls @ 100 mls/hr IVPB Q8H [facility] Last Admin: 04/16/17 02:11 Dose: 100 mls/hr Pantoprazole Sodium 80 mg/ (Sodium Chloride) 100 mls @ 10 mls/hr IVPB .Q10H [facility] PRN Reason: 8 MG/HR Last Admin: 04/16/17 09:05 Dose: 10 mls/hr Chromium/Copper/Manganese/Seleni/Zn 1 ml/ Heparin Sodium (Porcine) 1,000 units/ Amino Acids/Electrolytes/Dextrose 1,001.2 mls @ 63 mls/hr IV .[id number] [facility] Stop: 04/16/17 17:59 Lorazepam (Ativan) 0.5 mg IVP Q3H PRN PRN Reason: Anxiety Last Admin: 04/16/17 05:44 Dose: 0.5 mg Ondansetron HCl (Zofran Inj) 4 mg IVP Q6H PRN PRN Reason: Nausea/Vomiting Last Admin: 04/11/17 21:39 Dose: 4 mg Saccharomyces Boulardii (Florastor) 250 mg PO BID [facility] Last Admin: 04/15/17 17:38 Dose: Not Given Thiamine HCl (Vitamin B1 Tab) 100 mg PO DAILY [facility] Last Admin: 04/15/17 10:13 Dose: Not Given - Labs Labs: 04/16/17 06:22 04/16/17 06:22 PT 12.2 SECONDS (9.7-12.2) 04/15/17 05:57 INR 1.1 04/15/17 05:57 APTT 30 SECONDS (21-34) 04/08/17 12:45 - Constitutional Appears: In Acute Distress - Eye Exam Eye Exam: PERRL. absent: Scleral icterus Pupil Exam: NORMAL ACCOMODATION - Respiratory Exam Respiratory Exam: Rales. absent: Decreased Breath Sounds, Clear to Ausculation Bilateral, Rhonchi, Wheezes - Cardiovascular Exam Cardiovascular Exam: REGULAR RHYTHM, RRR, +S1, +S2. absent: Gallop, Rubs - GI/Abdominal Exam GI & Abdominal Exam: Soft, Normal Bowel Sounds. absent: Tenderness - Extremities Exam Extremities Exam: Normal Inspection. absent: Calf Tenderness, Pedal Edema - Back Exam Back Exam: CVA tenderness (L), CVA tenderness (R). absent: NORMAL INSPECTION - Neurological Exam Neurological Exam: Alert, Oriented x3 - Psychiatric Exam Psychiatric exam: Normal Affect, Normal Mood - Skin Skin Exam: Normal Color. absent: Pallor Assessment and Plan (1) SMAS (superior mesenteric artery syndrome) Assessment & Plan: Patient is scheduled to have surgery with Dr. [place] on Tuesday. She is one Dilauded and Ativan for agitation. She is also on protonix for a gastric ulcer. She is carlos still in alot of pain. TPN for nutrion is currently given. Zosyn given as well for any infection. Status: Acute (2) SBO (small bowel obstruction) Assessment & Plan: secondary to SMA follow up recs by GI leasing consultant. Status: Acute (3) Gastric ulcer Assessment & Plan: protonix given 80mg IV daily. Status: Acute (4) Renal failure Assessment & Plan: currently on Dialysis and seen by Telecommunications Engineer, Dr. Saenz's group. Status: Acute (5) Mental retardation Assessment & Plan: patient is non verbal. Status: Acute (6) Schizophrenia Assessment & Plan: Haldol given for agitation. Status: Acute
--- NOTE | 2017-04-16 12:00 | CP.PCM.PN ---
<Raoul,Katheryn - Last Filed: 04/16/17 12:03> Subjective - Date & Time of Evaluation Date of Evaluation: 04/16/17 Time of Evaluation: 09:00 - Subjective Subjective: GI Fellow PGY4 Progress Note Pt seen and evaluated at bedside, pt nonverbal but very agitated and in pain/ moaning. No active GI bleeding noted, Hgb stable. Pt underwent EGD yesterday and plan for OR Tuesday. No NGT for now. ROS: A 12pt ROS was unable to be obtained, pt nonverbal Objective - Vital Signs/Intake and Output Vital Signs (last 24 hours): Temp Pulse Resp BP Pulse Ox 97.4 F L 139 H 18 111/84 96 04/16/17 08:40 04/16/17 08:40 04/16/17 09:55 04/16/17 10:55 04/16/17 06:00 Intake and Output: 04/16/17 04/16/17 06:59 18:59 Intake Total 936 146 Output Total 390 100 Balance 546 46 - Medications Medications: Current Medications Acetaminophen (Tylenol 325 Mg Supp) 325 mg [place] Q4 PRN PRN Reason: Fever >100.4 F Last Admin: 04/13/17 04:38 Dose: 325 mg Acetylcysteine (Acetylcysteine 20%) 4 ml INH RQ6 AGUSTIN Albuterol/Ipratropium (Duoneb 3 Mg/0.5 Mg (3 Ml) Ud) 3 ml INH RQ6 AGUSTIN Ascorbic Acid (Vitamin C 500 Mg Tab) 500 mg PO DAILY [facility] Last Admin: 04/15/17 10:14 Dose: Not Given Haloperidol Lactate (Haldol) 1 mg IVP BID PRN PRN Reason: Agitation Last Admin: 04/16/17 05:45 Dose: 1 mg Hydromorphone HCl (Dilaudid) 0.5 mg IVP Q4H PRN PRN Reason: Pain, severe (8-10) Last Admin: 04/16/17 08:13 Dose: 0.5 mg Piperacillin Sod/Tazobactam Sod (Zosyn 2.25 Gm Iv Premix) 2.25 gm in 50 mls @ 100 mls/hr IVPB Q8H [facility] Last Admin: 04/16/17 02:11 Dose: 100 mls/hr Pantoprazole Sodium 80 mg/ (Sodium Chloride) 100 mls @ 10 mls/hr IVPB .Q10H AGUSTIN PRN Reason: 8 MG/HR Last Admin: 04/16/17 09:05 Dose: 10 mls/hr Chromium/Copper/Manganese/Seleni/Zn 1 ml/ Heparin Sodium (Porcine) 1,000 units/ Amino Acids/Electrolytes/Dextrose 1,001.2 mls @ 63 mls/hr IV .[id number] [facility] Stop: 04/16/17 17:59 Lorazepam (Ativan) 0.5 mg IVP Q3H PRN PRN Reason: Anxiety Last Admin: 04/16/17 05:44 Dose: 0.5 mg Ondansetron HCl (Zofran Inj) 4 mg IVP Q6H PRN PRN Reason: Nausea/Vomiting Last Admin: 04/11/17 21:39 Dose: 4 mg Saccharomyces Boulardii (Florastor) 250 mg PO BID [facility] Last Admin: 04/15/17 17:38 Dose: Not Given Thiamine HCl (Vitamin B1 Tab) 100 mg PO DAILY [facility] Last Admin: 04/15/17 10:13 Dose: Not Given - Labs Labs: 04/16/17 06:22 04/16/17 06:22 PT 12.2 SECONDS (9.7-12.2) 04/15/17 05:57 INR 1.1 04/15/17 05:57 APTT 30 SECONDS (21-34) 04/08/17 12:45 - Constitutional Appears: Agitated - Head Exam Head Exam: ATRAUMATIC, NORMAL INSPECTION, NORMOCEPHALIC - Eye Exam Eye Exam: PERRL - Respiratory Exam Respiratory Exam: NORMAL BREATHING PATTERN - Cardiovascular Exam Cardiovascular Exam: Tachycardia - GI/Abdominal Exam GI & Abdominal Exam: Soft. absent: Distended, Tenderness - Extremities Exam Extremities Exam: Pedal Edema - Psychiatric Exam Psychiatric exam: Agitated - Skin Skin Exam: Dry, Intact, Normal Color, Warm Assessment and Plan - Assessment and Plan (Free Text) Assessment: Alondra Rivera is a 37F w/ hx of Schizophrenia, mental disability who presents to the hospital due to abd pain diarrhea. She was found to have acute pancreatitis and severe gastric distention with retained food. Renal function is worsening with Cr rising and BUN s/p HD. 1. SMA syndrome 2. Anemia 3. Sepsis 4. Hemorrhagic/ischemic gastropathy 5. Phytobezor, marked stomach distention 6. Complicated Acute pancreatitis 7. Renal failure s/p HD Plan: -Continue supportive care with pain control -s/p EGD with ulcerated mucosa, no signs of active GI bleed, clot and friability , phytobezore cleared from stomach -Continue NPO, on TPN -No NGT tube, stomach clear of blood/clots, food bezor, avoid NGT trauma -Unable to place PEJ -Continue PPI bid -Pancreatitis improved, continue IVFs -Continue resusitation and Keep hgb > 7 -Continue antibiotics as per ID, WBC decreasing, afebrile, blood/urine cx negative -Renal failure, oliguric, s/p HD with improved renal function -Symptoms due to SMA syndrome which can be seen on multiple imaging causing duodenal obstruction leading to food bezor and gastric pneumatosis,recommend surgical evaluation and recommendation -Discussed with ICU team -Plan for OR on Tuesday -Will continue to follow closely <Dov Meade - Last Filed: 04/16/17 13:04> Objective - Vital Signs/Intake and Output Vital Signs (last 24 hours): Temp Pulse Resp BP Pulse Ox 97.4 F L 145 H 23 152/107 H 98 04/16/17 08:40 04/16/17 12:00 04/16/17 12:00 04/16/17 11:55 04/16/17 12:00 Intake and Output: 04/16/17 04/16/17 06:59 18:59 Intake Total 936 438 Output Total 390 1600 Balance 546 -1162 - Medications Medications: Current Medications Acetaminophen (Tylenol 325 Mg Supp) 325 mg [place] Q4 PRN PRN Reason: Fever >100.4 F Last Admin: 04/13/17 04:38 Dose: 325 mg Acetylcysteine (Acetylcysteine 20%) 4 ml INH RQ6 AGUSTIN Albuterol/Ipratropium (Duoneb 3 Mg/0.5 Mg (3 Ml) Ud) 3 ml INH RQ6 AGUSTIN Ascorbic Acid (Vitamin C 500 Mg Tab) 500 mg PO DAILY [facility] Last Admin: 04/16/17 10:00 Dose: Not Given Haloperidol Lactate (Haldol) 1 mg IVP BID PRN PRN Reason: Agitation Last Admin: 04/16/17 05:45 Dose: 1 mg Hydromorphone HCl (Dilaudid) 0.5 mg IVP Q4H PRN PRN Reason: Pain, severe (8-10) Last Admin: 04/16/17 12:52 Dose: 0.5 mg Piperacillin Sod/Tazobactam Sod (Zosyn 2.25 Gm Iv Premix) 2.25 gm in 50 mls @ 100 mls/hr IVPB Q8H [facility] Last Admin: 04/16/17 12:54 Dose: 100 mls/hr Pantoprazole Sodium 80 mg/ (Sodium Chloride) 100 mls @ 10 mls/hr IVPB .Q10H AGUSTIN PRN Reason: 8 MG/HR Last Admin: 04/16/17 09:05 Dose: 10 mls/hr Chromium/Copper/Manganese/Seleni/Zn 1 ml/ Heparin Sodium (Porcine) 1,000 units/ Amino Acids/Electrolytes/Dextrose 1,001.2 mls @ 63 mls/hr IV .[id number] [facility] Stop: 04/16/17 17:59 Last Admin: 04/16/17 10:20 Dose: 63 mls/hr Lorazepam (Ativan) 0.5 mg IVP Q3H PRN PRN Reason: Anxiety Last Admin: 04/16/17 05:44 Dose: 0.5 mg Ondansetron HCl (Zofran Inj) 4 mg IVP Q6H PRN PRN Reason: Nausea/Vomiting Last Admin: 04/11/17 21:39 Dose: 4 mg Saccharomyces Boulardii (Florastor) 250 mg PO BID [facility] Last Admin: 04/16/17 10:00 Dose: Not Given Thiamine HCl (Vitamin B1 Tab) 100 mg PO DAILY [facility] Last Admin: 04/16/17 10:00 Dose: Not Given - Labs Labs: 04/16/17 06:22 04/16/17 06:22 PT 12.2 SECONDS (9.7-12.2) 04/15/17 05:57 INR 1.1 04/15/17 05:57 APTT 30 SECONDS (21-34) 04/08/17 12:45 Attending/Attestation - Attestation I have personally seen and examined this patient.: Yes I have fully participated in the care of the patient.: Yes I have reviewed all pertinent clinical information, including history, physical exam and plan: Yes Notes (Text): 04/16/17 13:01 37 year old female with h/o mental disability/schizophrenia who is admitted with abdominal pain, found to have severe gastric distention, acute pancreatitis , gastric bezoar, severe upper GI bleeding due to gastric ulceration due to SMA syndrome. 1. SMA syndrome 2. Acute pancreatitis 3. Gastric bezoar 4. Gastric ulcer with hemorrhage Plan: -patient is stable overnight without further bleeding -strict NPO -would try to avoid NG re-insertion at the moment since her stomach has been decompressed and bezoar removed during endoscopy -her proximal gastric mucosa is severly eroded and ulcerated such that trauma could precipitate bleeding or perforation -continue TPN -appreciate surgical eval for options definitive treatment of SMA syndrome
[2017-04-16] MEDS ORDERED: Albuterol-Ipratrop 3 mg / 0.5 (3 ml) UD INH SCH (14:00)
[2017-04-16 15:12] LABS: SOURCE STOOL
[2017-04-16] MEDS ORDERED: Fat Emulsion 20% IV 250 ML IV ONE ×2 (16:00→18:00)
--- NOTE | 2017-04-16 16:47 | CP.CCUPN ---
CCU Subjective - Physician Review Events Since Last Encounter (Free Text): 04/16/17 16:45 patient still continually c/o abdominal pain. CCU Objective - Vital Signs / Intake & Output Intake and Output (Last 8hrs): Intake & Output 04/16/17 04/16/17 04/16/17 06:59 14:59 22:59 Intake Total 571 511 Output Total 390 1600 Balance 181 -1089 Weight 149 lb 0.52 oz Intake: Intake, IV Amount 571 511 Left Wrist 130 70 Right Femoral 441 441 Output: Urine 390 100 Urethral (Tovar) 390 100 Stool 0 Other 1500 - Physical Exam Head: Positive for: Atraumatic, Normocephalic. Negative for: Tenderness Pupils: Positive for: PERRL Extroacular Muscles: Positive for: EOMI Mouth: Positive for: Moist Mucous Membranes. Negative for: Dry, Drooling Nose (External): Positive for: Other (NGT in place) Nose (Internal): Positive for: Normal Inspection, Moist Neck: Positive for: Normal Range of Motion. Negative for: JVD, Lymphadenopathy Respiratory/Chest: Positive for: Clear to Auscultation. Negative for: Respiratory Distress, Accessory Muscle Use Cardiovascular: Positive for: Regular Rate and Rhythm, Normal S1, S2 Abdomen: Positive for: Tenderness (mild tenderness of palpation. patient continues to move her arms towards hands on palpation). Negative for: Distention, Guarding Upper Extremity: Positive for: Normal Inspection, Normal ROM, Capillary Refill < 2s. Negative for: Edema Lower Extremity: Positive for: Normal Inspection. Negative for: Edema Neurological: Positive for: CN II-XII Intact Skin: Positive for: Warm, Pale Psychiatric: Positive for: Alert - Medications Active Medications: Active Medications Generic Name Dose Route Start Last Admin Trade Name Freq PRN Reason Stop Dose Admin Acetaminophen 325 mg 03/29/17 07:57 04/13/17 04:38 Tylenol 325 Mg Supp [place] 325 mg Q4 PRN Administration Fever >100.4 F Ascorbic Acid 500 mg 04/08/17 12:30 04/16/17 10:00 Vitamin C 500 Mg Tab PO Not Given DAILY AGUSTIN Haloperidol Lactate 1 mg 03/29/17 18:47 04/16/17 16:03 Haldol IVP 1 mg BID PRN Administration Agitation Hydromorphone HCl 0.5 mg 04/10/17 23:09 04/16/17 12:52 Dilaudid IVP 0.5 mg Q4H PRN Administration Pain, severe (8-10) Piperacillin Sod/Tazobactam Sod 2.25 gm in 50 mls @ 100 mls/hr 04/12/17 18:00 04/16/17 12:54 Zosyn 2.25 Gm Iv Premix IVPB 100 mls/hr Q8H AGUSTIN Administration Pantoprazole Sodium 80 mg/ 100 mls @ 10 mls/hr 04/12/17 14:30 04/16/17 09:05 Sodium Chloride IVPB 10 mls/hr .Q10H AGUSTIN Administration 8 MG/HR Chromium/Copper/Manganese/ 1,001.2 mls @ 63 mls/hr 04/16/17 10:04 04/16/17 10 :20 Seleni/Zn 1 ml/ Heparin Sodium IV 04/16/17 17:59 63 mls/hr (Porcine) 1,000 units/ Amino .[id number] AGUSTIN Administration Acids/Electrolytes/Dextrose Multivitamins/Vitamin C 10 ml/ 1,011.2 mls @ 63 mls/hr 04/16/17 18:00 Chromium/Copper/Manganese/ IV 04/17/17 10:03 Seleni/Zn 1 ml/ Heparin Sodium .Q16H4M ONE (Porcine) 1,000 units/ Amino Acids/Electrolytes/Dextrose Chromium/Copper/Manganese/ 1,001.2 mls @ 63 mls/hr 04/17/17 10:00 Seleni/Zn 1 ml/ Heparin Sodium IV 04/17/17 17:59 (Porcine) 1,000 units/ Amino .[id number] [facility] Acids/Electrolytes/Dextrose Fat Emulsion Intravenous 250 mls @ 63 mls/hr 04/16/17 18:00 Intralipid 20% IV 04/16/17 21:58 ONCE ONE Lorazepam 0.5 mg 04/01/17 16:08 04/16/17 13:30 Ativan IVP 0.5 mg Q3H PRN Administration Anxiety Ondansetron HCl 4 mg 03/27/17 23:45 04/11/17 21:39 Zofran Inj IVP 4 mg Q6H PRN Administration Nausea/Vomiting Saccharomyces Boulardii 250 mg 04/08/17 18:00 04/16/17 10:00 Florastor PO Not Given BID [facility] Thiamine HCl 100 mg 04/08/17 12:30 04/16/17 10:00 Vitamin B1 Tab PO Not Given DAILY [facility] - Patient Studies Lab Studies: Microbiology Studies 04/14/17 08:00 Ova and Parasite Concentrate Exam - Final Rectal Fluid Lab Studies 04/16/17 04/16/17 04/16/17 Range/Units 11:33 06:22 06:22 WBC 13.7 H (4.8-10.8) K/uL RBC 3.64 L (3.80-5.20) Mil/uL Hgb 10.5 L (11.0-16.0) g/dL Hct 30.7 L (34.0-47.0) % MCV 84.5 (81.0-99.0) fL MCH 28.9 (27.0-31.0) pg MCHC 34.2 (33.0-37.0) g/dL RDW 15.4 H (11.5-14.5) % Plt Count 361 (130-400) K/uL MPV 7.7 (7.2-11.7) fL Neut % (Auto) 66.0 (50.0-75.0) % Lymph % (Auto) 11.1 L (20.0-40.0) % [place] % (Auto) 18.7 H (0.0-10.0) % Eos % (Auto) 3.9 (0.0-4.0) % Baso % (Auto) 0.3 (0.0-2.0) % Neut # 9.0 H (1.8-7.0) K/uL Lymph # 1.5 (1.0-4.3) K/uL [place] # 2.6 H (0.0-0.8) K/uL Eos # 0.5 (0.0-0.7) K/uL Baso # 0.0 (0.0-0.2) K/uL Sodium 137 (132-148) mmol/L Potassium 4.3 (3.6-5.2) mmol/L Chloride 103 (98-107) mmol/L Carbon Dioxide 24 (22-30) mmol/L Anion Gap 14 (10-20) BUN 52 H (7-17) mg/dL Creatinine 6.6 H (0.7-1.2) mg/dL Est GFR ( Amer) 9 Est GFR (Non-Af Amer) 7 POC Glucose (mg/dL) 126 H (65-110) mg/dL Random Glucose 110 H (65-105) mg/dL Calcium 8.2 L (8.6-10.4) mg/dl Phosphorus 4.3 (2.5-4.5) mg/dL Magnesium 2.0 (1.6-2.3) mg/dL Total Bilirubin 0.7 (0.2-1.3) mg/dL AST 18 (14-36) U/L ALT 24 (9-52) U/L Alkaline Phosphatase 119 (38-126) U/L Total Protein 5.6 L (6.3-8.3) g/dL Albumin 2.7 L (3.5-5.0) g/dL Globulin 2.9 (2.2-3.9) gm/dL Albumin/Globulin Ratio 1.0 (1.0-2.1) Vitamin B12 638 (239-931) pg/mL Folate 12.6 ng/mL Stl Cryptosporidium Ag (Not detected) Stl Giardia Antigen Cryptosp/Giardia Source Giardia Antigen (Not Detected) 04/16/17 04/15/17 04/15/17 Range/Units 05:27 23:23 17:41 WBC (4.8-10.8) K/uL RBC (3.80-5.20) Mil/uL Hgb (11.0-16.0) g/dL Hct (34.0-47.0) % MCV (81.0-99.0) fL MCH (27.0-31.0) pg MCHC (33.0-37.0) g/dL RDW (11.5-14.5) % Plt Count (130-400) K/uL MPV (7.2-11.7) fL Neut % (Auto) (50.0-75.0) % Lymph % (Auto) (20.0-40.0) % [place] % (Auto) (0.0-10.0) % Eos % (Auto) (0.0-4.0) % Baso % (Auto) (0.0-2.0) % Neut # (1.8-7.0) K/uL Lymph # (1.0-4.3) K/uL [place] # (0.0-0.8) K/uL Eos # (0.0-0.7) K/uL Baso # (0.0-0.2) K/uL Sodium (132-148) mmol/L Potassium (3.6-5.2) mmol/L Chloride (98-107) mmol/L Carbon Dioxide (22-30) mmol/L Anion Gap (10-20) BUN (7-17) mg/dL Creatinine (0.7-1.2) mg/dL Est GFR ( Amer) Est GFR (Non-Af Amer) POC Glucose (mg/dL) 134 H 124 H 154 H (65-110) mg/dL Random Glucose (65-105) mg/dL Calcium (8.6-10.4) mg/dl Phosphorus (2.5-4.5) mg/dL Magnesium (1.6-2.3) mg/dL Total Bilirubin (0.2-1.3) mg/dL AST (14-36) U/L ALT (9-52) U/L Alkaline Phosphatase (38-126) U/L Total Protein (6.3-8.3) g/dL Albumin (3.5-5.0) g/dL Globulin (2.2-3.9) gm/dL Albumin/Globulin Ratio (1.0-2.1) Vitamin B12 (239-931) pg/mL Folate ng/mL Stl Cryptosporidium Ag (Not detected) Stl Giardia Antigen Cryptosp/Giardia Source Giardia Antigen (Not Detected) 04/12/17 Range/Units 07:32 WBC (4.8-10.8) K/uL RBC (3.80-5.20) Mil/uL Hgb (11.0-16.0) g/dL Hct (34.0-47.0) % MCV (81.0-99.0) fL MCH (27.0-31.0) pg MCHC (33.0-37.0) g/dL RDW (11.5-14.5) % Plt Count (130-400) K/uL MPV (7.2-11.7) fL Neut % (Auto) (50.0-75.0) % Lymph % (Auto) (20.0-40.0) % [place] % (Auto) (0.0-10.0) % Eos % (Auto) (0.0-4.0) % Baso % (Auto) (0.0-2.0) % Neut # (1.8-7.0) K/uL Lymph # (1.0-4.3) K/uL [place] # (0.0-0.8) K/uL Eos # (0.0-0.7) K/uL Baso # (0.0-0.2) K/uL Sodium (132-148) mmol/L Potassium (3.6-5.2) mmol/L Chloride (98-107) mmol/L Carbon Dioxide (22-30) mmol/L Anion Gap (10-20) BUN (7-17) mg/dL Creatinine (0.7-1.2) mg/dL Est GFR ( Amer) Est GFR (Non-Af Amer) POC Glucose (mg/dL) (65-110) mg/dL Random Glucose (65-105) mg/dL Calcium (8.6-10.4) mg/dl Phosphorus (2.5-4.5) mg/dL Magnesium (1.6-2.3) mg/dL Total Bilirubin (0.2-1.3) mg/dL AST (14-36) U/L ALT (9-52) U/L Alkaline Phosphatase (38-126) U/L Total Protein (6.3-8.3) g/dL Albumin (3.5-5.0) g/dL Globulin (2.2-3.9) gm/dL Albumin/Globulin Ratio (1.0-2.1) Vitamin B12 (239-931) pg/mL Folate ng/mL Stl Cryptosporidium Ag Not detected (Not detected) Stl Giardia Antigen TEST NOT PERFORMED Cryptosp/Giardia Source Stool Giardia Antigen Not detected (Not Detected) Laboratory Results - last 24 hr 04/12/17 04/15/17 04/15/17 07:32 17:41 23:23 WBC RBC Hgb Hct MCV MCH MCHC RDW Plt Count MPV Neut % (Auto) Lymph % (Auto) [place] % (Auto) Eos % (Auto) Baso % (Auto) Neut # Lymph # [place] # Eos # Baso # Sodium Potassium Chloride Carbon Dioxide Anion Gap BUN Creatinine Est GFR ( Amer) Est GFR (Non-Af Amer) POC Glucose (mg/dL) 154 H 124 H Random Glucose Calcium Phosphorus Magnesium Total Bilirubin AST ALT Alkaline Phosphatase Total Protein Albumin Globulin Albumin/Globulin Ratio Vitamin B12 Folate Stl Cryptosporidium Ag Not detected Stl Giardia Antigen TEST NOT PERFORMED Cryptosp/Giardia Source Stool Giardia Antigen Not detected 04/16/17 04/16/17 04/16/17 05:27 06:22 06:22 WBC 13.7 H RBC 3.64 L Hgb 10.5 L Hct 30.7 L MCV 84.5 MCH 28.9 MCHC 34.2 RDW 15.4 H Plt Count 361 MPV 7.7 Neut % (Auto) 66.0 Lymph % (Auto) 11.1 L [place] % (Auto) 18.7 H Eos % (Auto) 3.9 Baso % (Auto) 0.3 Neut # 9.0 H Lymph # 1.5 [place] # 2.6 H Eos # 0.5 Baso # 0.0 Sodium 137 Potassium 4.3 Chloride 103 Carbon Dioxide 24 Anion Gap 14 BUN 52 H Creatinine 6.6 H Est GFR ( Amer) 9 Est GFR (Non-Af Amer) 7 POC Glucose (mg/dL) 134 H Random Glucose 110 H Calcium 8.2 L Phosphorus 4.3 Magnesium 2.0 Total Bilirubin 0.7 AST 18 ALT 24 Alkaline Phosphatase 119 Total Protein 5.6 L Albumin 2.7 L Globulin 2.9 Albumin/Globulin Ratio 1.0 Vitamin B12 638 Folate 12.6 Stl Cryptosporidium Ag Stl Giardia Antigen Cryptosp/Giardia Source Giardia Antigen 04/16/17 11:33 WBC RBC Hgb Hct MCV MCH MCHC RDW Plt Count MPV Neut % (Auto) Lymph % (Auto) [place] % (Auto) Eos % (Auto) Baso % (Auto) Neut # Lymph # [place] # Eos # Baso # Sodium Potassium Chloride Carbon Dioxide Anion Gap BUN Creatinine Est GFR ( Amer) Est GFR (Non-Af Amer) POC Glucose (mg/dL) 126 H Random Glucose Calcium Phosphorus Magnesium Total Bilirubin AST ALT Alkaline Phosphatase Total Protein Albumin Globulin Albumin/Globulin Ratio Vitamin B12 Folate Stl Cryptosporidium Ag Stl Giardia Antigen Cryptosp/Giardia Source Giardia Antigen Fingerstick Blood Sugar Results: 124 Review of Systems - Review of Systems Systems not reviewed;Unavailable: Altered Mental Status Critical Care Progress Note - Nutrition Nutrition: Nutrition Category Date Time Status NPO Diet [DIET] Diets 04/08/17 Dinner Active Assessment/Plan (1) Acute pancreatitis Assessment and plan: Patient most likely has superior mesenteric artery syndrome, Dr. Mendez to operate on Tuesday. Continue Zosyn, for now, empiric coverage. Patient is also in oliguric renal failure, continue dialysis. NPO heparin sq protonix gtt for ulcerative gastritis Critical Care time 35 minutes Current Visit: Yes Status: Acute
[2017-04-16] MEDS ORDERED: TPN#5 IV ONE (18:00)
--- NOTE | 2017-04-16 20:21 | CP.PCM.PN ---
Subjective - Date & Time of Evaluation Date of Evaluation: 04/16/17 Time of Evaluation: 09:20 - Subjective Subjective: Patient with fluctuating heart rate High heart rate likely secondary to metobolic or pain related Consider Cardizem 30 QID if HR >120 Physical Exam - Constitutional Appears: In Acute Distress, Agitated, Chronically Ill - Head Exam Head Exam: ATRAUMATIC, NORMAL INSPECTION - Eye Exam Eye Exam: EOMI, Normal appearance - Neck Exam Neck exam: Positive for: Normal Inspection. Negative for: Tenderness - Respiratory Exam Respiratory Exam: Decreased Breath Sounds, NORMAL BREATHING PATTERN - Cardiovascular Exam Cardiovascular Exam: Tachycardia, +S1 - GI/Abdominal Exam GI & Abdominal Exam: Soft, Tenderness - Extremities Exam Extremities exam: Positive for: normal inspection. Negative for: tenderness - Neurological Exam Neurological exam: Altered, CN II-XII Intact - Skin Skin Exam: Dry, Warm Objective - Vital Signs/Intake and Output Vital Signs (last 24 hours): Temp Pulse Resp BP Pulse Ox 98.3 F 125 H 11 L 109/75 100 04/16/17 16:00 04/16/17 19:00 04/16/17 19:00 04/16/17 18:49 04/16/17 16:00 Intake and Output: 04/16/17 04/17/17 18:59 06:59 Intake Total 853 246 Output Total 1600 30 Balance -747 216 - Medications Medications: Current Medications Acetaminophen (Tylenol 325 Mg Supp) 325 mg [place] Q4 PRN PRN Reason: Fever >100.4 F Last Admin: 04/13/17 04:38 Dose: 325 mg Ascorbic Acid (Vitamin C 500 Mg Tab) 500 mg PO DAILY [facility] Last Admin: 04/16/17 10:00 Dose: Not Given Haloperidol Lactate (Haldol) 1 mg IVP BID PRN PRN Reason: Agitation Last Admin: 04/16/17 16:03 Dose: 1 mg Hydromorphone HCl (Dilaudid) 0.5 mg IVP Q4H PRN PRN Reason: Pain, severe (8-10) Last Admin: 04/16/17 17:19 Dose: 0.5 mg Piperacillin Sod/Tazobactam Sod (Zosyn 2.25 Gm Iv Premix) 2.25 gm in 50 mls @ 100 mls/hr IVPB Q8H [facility] Last Admin: 04/16/17 17:22 Dose: 100 mls/hr Pantoprazole Sodium 80 mg/ (Sodium Chloride) 100 mls @ 10 mls/hr IVPB .Q10H [facility] PRN Reason: 8 MG/HR Last Admin: 04/16/17 18:19 Dose: 10 mls/hr Multivitamins/Vitamin C 10 ml/Chromium/Copper/Manganese/Seleni/Zn 1 ml/ Heparin Sodium (Porcine) 1,000 units/ Amino Acids/Electrolytes/Dextrose 1,011.2 mls @ 63 mls/hr IV .Q16H4M ONE Stop: 04/17/17 10:03 Last Admin: 04/16/17 16:23 Dose: 63 mls/hr Chromium/Copper/Manganese/Seleni/Zn 1 ml/ Heparin Sodium (Porcine) 1,000 units/ Amino Acids/Electrolytes/Dextrose 1,001.2 mls @ 63 mls/hr IV .[id number] [facility] Stop: 04/17/17 17:59 Fat Emulsion Intravenous (Intralipid 20%) 250 mls @ 63 mls/hr IV ONCE ONE Stop: 04/16/17 21:58 Last Admin: 04/16/17 18:39 Dose: 63 mls/hr Lorazepam (Ativan) 0.5 mg IVP Q3H PRN PRN Reason: Anxiety Last Admin: 04/16/17 18:44 Dose: 0.5 mg Ondansetron HCl (Zofran Inj) 4 mg IVP Q6H PRN PRN Reason: Nausea/Vomiting Last Admin: 04/11/17 21:39 Dose: 4 mg Saccharomyces Boulardii (Florastor) 250 mg PO BID [facility] Last Admin: 04/16/17 17:20 Dose: Not Given Thiamine HCl (Vitamin B1 Tab) 100 mg PO DAILY [facility] Last Admin: 04/16/17 10:00 Dose: Not Given - Labs Labs: 04/16/17 06:22 04/16/17 06:22 PT 12.2 SECONDS (9.7-12.2) 04/15/17 05:57 INR 1.1 04/15/17 05:57 APTT 30 SECONDS (21-34) 04/08/17 12:45 Assessment and Plan - Assessment and Plan (Free Text) Assessment: Assessment & Plan - Assessment and Plan (Free Text) Assessment: Tachycardia JIMBO Acute pancreatitis Volume depletion Sepsis syndrome Intra-abdominal fluid collection- possible abscess Plan: ECHO: Normal EF and no valvular issues Tachycardia most likely due to medical issues Cardizem drip/PO as needed
[2017-04-17] MEDS: Piperacill/Tazo 2.25gm in Dex 2.25 GM/50 ML BAG IVPB SCH ×3 (01:39→17:41)
[2017-04-17] MEDS: Pantoprazole 80 MG in Sodium Chloride 0.9% 100 ML IVPB SCH (03:30)
[2017-04-17] MEDS ORDERED: HYDROmorphone 0.5 mg/0.5 ml ISec IVP STA (04:29)
[2017-04-17] MEDS ORDERED: Sodium Chloride 0.9% 1,000 ML IV ONE (04:51)
[2017-04-17 06:44] LABS: BASO % 0.1 % (0.0-2.0); EOS # 0.4 K/uL (0.0-0.7); EOS % 3.2 % (0.0-4.0); HEMOGLOBIN 9.1 g/dL (11.0-16.0); LYMPH # 0.8 K/uL (1.0-4.3); LYMPH % 6.1 % (20.0-40.0); MEAN CELL VOLUME 85.2 fL (81.0-99.0); MEAN CORPUSCULAR HEMOGLOBIN 29.3 pg (27.0-31.0); MEAN CORPUSCULAR HGB CONC 34.4 g/dL (33.0-37.0); MEAN PLATELET VOLUME 7.6 fL (7.2-11.7); MONO # 1.8 K/uL (0.0-0.8); MONO % 13.4 % (0.0-10.0); NEUT # 10.3 K/uL (1.8-7.0); NEUT % 77.2 % (50.0-75.0); PLATELET COUNT 303 K/uL (130-400); RED CELL DISTRIBUTION WIDTH 15.4 % (11.5-14.5); WHITE BLOOD COUNT 13.3 K/uL (4.8-10.8)
[2017-04-17 06:53] LABS: INR 1.2; PROTHROMBIN TIME 13.4 SECONDS (9.7-12.2)
[2017-04-17 06:57] LABS: ALBUMIN 2.7 g/dL (3.5-5.0); CALCIUM 7.5 mg/dl (8.6-10.4)
--- NOTE | 2017-04-17 07:17 | CP.PCM.PN ---
Subjective - Date & Time of Evaluation Date of Evaluation: 04/17/17 Time of Evaluation: 07:17 - Subjective Subjective: General Surgery Dr. Mendez Pt S&E @bedside. Pt very agitated and tachycardic overnight w/ HR in 150s. Pt medicated but no relief obtained. This morning, pt agitated. [id number]. pt non verbal. Objective - Vital Signs/Intake and Output Vital Signs (last 24 hours): Temp Pulse Resp BP Pulse Ox 99.9 F H 144 H 23 121/95 H 98 04/16/17 23:55 04/17/17 06:00 04/17/17 06:00 04/17/17 05:49 04/17/17 06:00 Intake and Output: 04/17/17 04/17/17 06:59 18:59 Intake Total 2299 Output Total 220 Balance 2079 - Medications Medications: Current Medications Acetaminophen (Tylenol 325 Mg Supp) 325 mg [place] Q4 PRN PRN Reason: Fever >100.4 F Last Admin: 04/13/17 04:38 Dose: 325 mg Ascorbic Acid (Vitamin C 500 Mg Tab) 500 mg PO DAILY [facility] Last Admin: 04/16/17 10:00 Dose: Not Given Haloperidol Lactate (Haldol) 1 mg IVP BID PRN PRN Reason: Agitation Last Admin: 04/17/17 00:00 Dose: 1 mg Hydromorphone HCl (Dilaudid) 0.5 mg IVP Q4H PRN PRN Reason: Pain, severe (8-10) Last Admin: 04/17/17 05:24 Dose: 0.5 mg Piperacillin Sod/Tazobactam Sod (Zosyn 2.25 Gm Iv Premix) 2.25 gm in 50 mls @ 100 mls/hr IVPB Q8H [facility] Last Admin: 04/17/17 01:39 Dose: 100 mls/hr Pantoprazole Sodium 80 mg/ (Sodium Chloride) 100 mls @ 10 mls/hr IVPB .Q10H [facility] PRN Reason: 8 MG/HR Last Admin: 04/17/17 03:30 Dose: 10 mls/hr Multivitamins/Vitamin C 10 ml/Chromium/Copper/Manganese/Seleni/Zn 1 ml/ Heparin Sodium (Porcine) 1,000 units/ Amino Acids/Electrolytes/Dextrose 1,011.2 mls @ 63 mls/hr IV .Q16H4M ONE Stop: 04/17/17 10:03 Last Admin: 04/16/17 16:23 Dose: 63 mls/hr Chromium/Copper/Manganese/Seleni/Zn 1 ml/ Heparin Sodium (Porcine) 1,000 units/ Amino Acids/Electrolytes/Dextrose 1,001.2 mls @ 63 mls/hr IV .[id number] [facility] Stop: 04/17/17 17:59 Lorazepam (Ativan) 0.5 mg IVP Q3H PRN PRN Reason: Anxiety Last Admin: 04/17/17 03:32 Dose: 0.5 mg Ondansetron HCl (Zofran Inj) 4 mg IVP Q6H PRN PRN Reason: Nausea/Vomiting Last Admin: 04/11/17 21:39 Dose: 4 mg Saccharomyces Boulardii (Florastor) 250 mg PO BID [facility] Last Admin: 04/16/17 17:20 Dose: Not Given Thiamine HCl (Vitamin B1 Tab) 100 mg PO DAILY [facility] Last Admin: 04/16/17 10:00 Dose: Not Given - Labs Labs: 04/17/17 06:38 04/17/17 06:38 PT 13.4 SECONDS (9.7-12.2) H 04/17/17 06:38 INR 1.2 04/17/17 06:38 APTT 30 SECONDS (21-34) 04/17/17 06:38 - Constitutional Appears: Non-toxic, In Acute Distress, Agitated - Head Exam Head Exam: NORMAL INSPECTION - Eye Exam Eye Exam: Normal appearance - ENT Exam ENT Exam: Mucous Membranes Moist - Respiratory Exam Respiratory Exam: NORMAL BREATHING PATTERN - Cardiovascular Exam Cardiovascular Exam: Tachycardia, REGULAR RHYTHM - GI/Abdominal Exam GI & Abdominal Exam: Distended (minimal), Soft, Tenderness (diffuse; grimace and grabs hand on palpation). absent: Rigid, Rebound - Extremities Exam Extremities Exam: Normal Inspection - Neurological Exam Neurological Exam: Alert, Awake - Psychiatric Exam Psychiatric exam: Agitated, Anxious - Skin Skin Exam: Dry, Normal Color, Warm Assessment and Plan - Assessment and Plan (Free Text) Assessment: 36 y/o F w/ gastric ulcer and SMA syndrome - increased Dilaudid dose for improved pain management - monitor vitals --> HR control - plan for OR Tuesday for Ex lap - NPO after midnight on Sun - cont medical management per Critical Care Pt discussed w/ Dr. Andrea Peterson DO PGY2
--- NOTE | 2017-04-17 07:33 | CP.PCM.PN ---
<Katheryn Silveira - Last Filed: 04/17/17 09:12> Subjective - Date & Time of Evaluation Date of Evaluation: 04/17/17 Time of Evaluation: 08:30 - Subjective Subjective: GI Fellow PGY4 Progress Note Pt seen and evaluated at bedside, pt nonverbal, currently sleeping after receiving pain medication. No active GI bleeding noted, Hgb stable. No NGT. On TPN. ROS: A 12pt ROS was unable to be obtained, pt nonverbal Objective - Vital Signs/Intake and Output Vital Signs (last 24 hours): Temp Pulse Resp BP Pulse Ox 99.9 F H 151 H 34 H 113/77 96 04/16/17 23:55 04/17/17 07:00 04/17/17 07:00 04/17/17 06:49 04/17/17 07:00 Intake and Output: 04/17/17 04/17/17 06:59 18:59 Intake Total 2299 Output Total 220 Balance 2079 - Medications Medications: Current Medications Acetaminophen (Tylenol 325 Mg Supp) 325 mg [place] Q4 PRN PRN Reason: Fever >100.4 F Last Admin: 04/13/17 04:38 Dose: 325 mg Ascorbic Acid (Vitamin C 500 Mg Tab) 500 mg PO DAILY [facility] Last Admin: 04/16/17 10:00 Dose: Not Given Haloperidol Lactate (Haldol) 1 mg IVP BID PRN PRN Reason: Agitation Last Admin: 04/17/17 00:00 Dose: 1 mg Hydromorphone HCl (Dilaudid) 0.5 mg IVP Q3 PRN PRN Reason: Pain, moderate (4-7) Hydromorphone HCl (Dilaudid) 1 mg IVP Q3 PRN PRN Reason: Pain, severe (8-10) Piperacillin Sod/Tazobactam Sod (Zosyn 2.25 Gm Iv Premix) 2.25 gm in 50 mls @ 100 mls/hr IVPB Q8H [facility] Last Admin: 04/17/17 01:39 Dose: 100 mls/hr Pantoprazole Sodium 80 mg/ (Sodium Chloride) 100 mls @ 10 mls/hr IVPB .Q10H [facility] PRN Reason: 8 MG/HR Last Admin: 04/17/17 03:30 Dose: 10 mls/hr Multivitamins/Vitamin C 10 ml/Chromium/Copper/Manganese/Seleni/Zn 1 ml/ Heparin Sodium (Porcine) 1,000 units/ Amino Acids/Electrolytes/Dextrose 1,011.2 mls @ 63 mls/hr IV .Q16H4M ONE Stop: 04/17/17 10:03 Last Admin: 04/16/17 16:23 Dose: 63 mls/hr Chromium/Copper/Manganese/Seleni/Zn 1 ml/ Heparin Sodium (Porcine) 1,000 units/ Amino Acids/Electrolytes/Dextrose 1,001.2 mls @ 63 mls/hr IV .[id number] [facility] Stop: 04/17/17 17:59 Lorazepam (Ativan) 0.5 mg IVP Q3H PRN PRN Reason: Anxiety Last Admin: 04/17/17 03:32 Dose: 0.5 mg Ondansetron HCl (Zofran Inj) 4 mg IVP Q6H PRN PRN Reason: Nausea/Vomiting Last Admin: 04/11/17 21:39 Dose: 4 mg Saccharomyces Boulardii (Florastor) 250 mg PO BID [facility] Last Admin: 04/16/17 17:20 Dose: Not Given Thiamine HCl (Vitamin B1 Tab) 100 mg PO DAILY [facility] Last Admin: 04/16/17 10:00 Dose: Not Given - Labs Labs: 04/17/17 06:38 04/17/17 06:38 PT 13.4 SECONDS (9.7-12.2) H 04/17/17 06:38 INR 1.2 04/17/17 06:38 APTT 30 SECONDS (21-34) 04/17/17 06:38 - Constitutional Appears: Non-toxic, No Acute Distress, Chronically Ill - Head Exam Head Exam: ATRAUMATIC, NORMAL INSPECTION, NORMOCEPHALIC - Eye Exam Eye Exam: Normal appearance, PERRL - ENT Exam ENT Exam: Mucous Membranes Dry - Respiratory Exam Respiratory Exam: Rhonchi - Cardiovascular Exam Cardiovascular Exam: Tachycardia - GI/Abdominal Exam GI & Abdominal Exam: Soft, Normal Bowel Sounds. absent: Distended, Guarding, Organomegaly - Rectal Exam Rectal Exam: Deferred - Extremities Exam Extremities Exam: Pedal Edema - Psychiatric Exam Psychiatric exam: Depressed - Skin Skin Exam: Dry, Intact, Normal Color, Warm Assessment and Plan - Assessment and Plan (Free Text) Assessment: Alondra Rivera is a 37F w/ hx of Schizophrenia, mental disability who presents to the hospital due to abd pain diarrhea. She was found to have acute pancreatitis and severe gastric distention with retained food. Renal function is worsening with Cr rising and BUN s/p HD. 1. SMA syndrome 2. Anemia 3. Sepsis 4. Hemorrhagic/ischemic gastropathy 5. Phytobezor, marked stomach distention 6. Complicated Acute pancreatitis 7. Renal failure s/p HD Plan: -Continue supportive care with pain control -s/p EGD with ulcerated mucosa, no signs of active GI bleed, clot and friability , phytobezore cleared from stomach -Continue NPO, on TPN -No NGT tube -Continue PPI bid -Pancreatitis improved, continue IVFs -No GI bleeding, keep hgb > 7 -Continue antibiotics as per ID -Renal failure s/p HD -Symptoms due to SMA syndrome plan for surgery tomorrow -Will continue to follow closely <Dov Meade - Last Filed: 04/17/17 13:16> Objective - Vital Signs/Intake and Output Vital Signs (last 24 hours): Temp Pulse Resp BP Pulse Ox 98.7 F 134 H 18 133/96 H 98 04/17/17 12:17 04/17/17 12:17 04/17/17 12:17 04/17/17 12:17 04/17/17 12:00 Intake and Output: 04/17/17 04/17/17 06:59 18:59 Intake Total 2299 335 Output Total 220 Balance 2079 335 - Medications Medications: Current Medications Acetaminophen (Tylenol 325 Mg Supp) 325 mg [place] Q4 PRN PRN Reason: Fever >100.4 F Last Admin: 04/13/17 04:38 Dose: 325 mg Ascorbic Acid (Vitamin C 500 Mg Tab) 500 mg PO DAILY [facility] Last Admin: 04/17/17 09:49 Dose: Not Given Haloperidol Lactate (Haldol) 1 mg IVP BID PRN PRN Reason: Agitation Last Admin: 04/17/17 00:00 Dose: 1 mg Hydromorphone HCl (Dilaudid) 0.5 mg IVP Q3 PRN PRN Reason: Pain, moderate (4-7) Last Admin: 04/17/17 08:22 Dose: 0.5 mg Hydromorphone HCl (Dilaudid) 1 mg IVP Q3 PRN PRN Reason: Pain, severe (8-10) Last Admin: 04/17/17 12:16 Dose: 1 mg Piperacillin Sod/Tazobactam Sod (Zosyn 2.25 Gm Iv Premix) 2.25 gm in 50 mls @ 100 mls/hr IVPB Q8H [facility] Last Admin: 04/17/17 12:18 Dose: 100 mls/hr Chromium/Copper/Manganese/Seleni/Zn 1 ml/ Heparin Sodium (Porcine) 1,000 units/ Amino Acids/Electrolytes/Dextrose 1,001.2 mls @ 63 mls/hr IV .[id number] [facility] Stop: 04/17/17 17:59 Last Admin: 04/17/17 11:11 Dose: 63 mls/hr Chromium/Copper/Manganese/Zinc 1 ml/ Heparin Sodium (Porcine ) 1,000 units/ Amino Acids/Electrolytes/Dextrose 1,002 mls @ 63 mls/hr IV .[id number] [facility] Stop: 04/18/17 09:54 Chromium/Copper/Manganese/Zinc 1 ml/ Heparin Sodium (Porcine ) 1,000 units/ Amino Acids/Electrolytes/Dextrose 1,002 mls @ 63 mls/hr IV .[id number] [facility] Stop: 04/18/17 17:59 Lorazepam (Ativan) 0.5 mg IVP Q3H PRN PRN Reason: Anxiety Last Admin: 04/17/17 10:56 Dose: 0.5 mg Ondansetron HCl (Zofran Inj) 4 mg IVP Q6H PRN PRN Reason: Nausea/Vomiting Last Admin: 04/11/17 21:39 Dose: 4 mg Pantoprazole Sodium (Protonix Inj) 40 mg IVP Q12 [facility] Last Admin: 04/17/17 09:54 Dose: 40 mg Saccharomyces Boulardii (Florastor) 250 mg PO BID [facility] Last Admin: 04/17/17 09:49 Dose: Not Given Thiamine HCl (Vitamin B1 Tab) 100 mg PO DAILY [facility] Last Admin: 04/17/17 09:49 Dose: Not Given - Labs Labs: 04/17/17 06:38 04/17/17 06:38 PT 13.4 SECONDS (9.7-12.2) H 04/17/17 06:38 INR 1.2 04/17/17 06:38 APTT 30 SECONDS (21-34) 04/17/17 06:38 Attending/Attestation - Attestation I have personally seen and examined this patient.: Yes I have fully participated in the care of the patient.: Yes I have reviewed all pertinent clinical information, including history, physical exam and plan: Yes Notes (Text): 04/17/17 13:15 37 year old female with h/o mental disability/schizophrenia who is admitted with abdominal pain, found to have severe gastric distention, acute pancreatitis , gastric bezoar, severe upper GI bleeding due to gastric ulceration due to SMA syndrome. 1. SMA syndrome 2. Acute pancreatitis 3. Gastric bezoar 4. Gastric ulcer with hemorrhage Plan: -patient is stable overnight without further bleeding -strict NPO -would try to avoid NG re-insertion at the moment since her stomach has been decompressed and bezoar removed during endoscopy -her proximal gastric mucosa is severely eroded and ulcerated such that trauma could precipitate bleeding or perforation -continue TPN -OR tomorrow
--- NOTE | 2017-04-17 08:40 | RAD ---
HISTORY: eval effusion COMPARISON: Comparison is made with 04/12/2017 FINDINGS: LUNGS: Moderate pulmonary vascular congestion is again noted. PLEURA: No significant pleural effusion identified, no pneumothorax apparent. CARDIOVASCULAR: Normal. OSSEOUS STRUCTURES: No significant abnormalities. VISUALIZED UPPER ABDOMEN: Normal. OTHER FINDINGS: None. IMPRESSION: Moderate pulmonary vascular congestion.
[2017-04-17 08:53] LABS: ANISOCYTOSIS SLIGHT; BANDS 5 % (0-2); EOSINOPHIL 3 % (0-4); LYMPHOCYTE 8 % (20-40); MONOCYTE 9 % (0-10); NEUTROPHIL 75 % (50-75); PLATELET ESTIMATE NORMAL (NORMAL); TOTAL CELLS COUNTED 100
[2017-04-17 08:54] LABS: POLYCHROMIC SLIGHT; TOXIC GRANULATION PRESENT
[2017-04-17 08:55] LABS: LARGE PLATELETS PRESENT
[2017-04-17] MEDS: Saccharomyces Boulardi 250 mg Cap PO SCH ×2 (09:49→17:45)
[2017-04-17] MEDS ORDERED: TPN#6 IV SCH (10:00)
--- NOTE | 2017-04-17 15:57 | CP.PCM.PN ---
Subjective - Date & Time of Evaluation Date of Evaluation: 04/17/17 Time of Evaluation: 08:00 - Subjective Subjective: s/p pancreatitis nad resting Objective - Vital Signs/Intake and Output Vital Signs (last 24 hours): Temp Pulse Resp BP Pulse Ox 98.7 F 148 H 43 H 131/90 99 04/17/17 12:17 04/17/17 15:00 04/17/17 15:00 04/17/17 14:48 04/17/17 15:00 Intake and Output: 04/17/17 04/17/17 06:59 18:59 Intake Total 2299 574 Output Total 220 Balance 2079 574 - Medications Medications: Current Medications Acetaminophen (Tylenol 325 Mg Supp) 325 mg [place] Q4 PRN PRN Reason: Fever >100.4 F Last Admin: 04/13/17 04:38 Dose: 325 mg Ascorbic Acid (Vitamin C 500 Mg Tab) 500 mg PO DAILY [facility] Last Admin: 04/17/17 09:49 Dose: Not Given Haloperidol Lactate (Haldol) 1 mg IVP BID PRN PRN Reason: Agitation Last Admin: 04/17/17 00:00 Dose: 1 mg Hydromorphone HCl (Dilaudid) 0.5 mg IVP Q3 PRN PRN Reason: Pain, moderate (4-7) Last Admin: 04/17/17 08:22 Dose: 0.5 mg Hydromorphone HCl (Dilaudid) 1 mg IVP Q3 PRN PRN Reason: Pain, severe (8-10) Last Admin: 04/17/17 15:15 Dose: 1 mg Piperacillin Sod/Tazobactam Sod (Zosyn 2.25 Gm Iv Premix) 2.25 gm in 50 mls @ 100 mls/hr IVPB Q8H [facility] Last Admin: 04/17/17 12:18 Dose: 100 mls/hr Chromium/Copper/Manganese/Seleni/Zn 1 ml/ Heparin Sodium (Porcine) 1,000 units/ Amino Acids/Electrolytes/Dextrose 1,001.2 mls @ 63 mls/hr IV .[id number] [facility] Stop: 04/17/17 17:59 Last Admin: 04/17/17 11:11 Dose: 63 mls/hr Chromium/Copper/Manganese/Zinc 1 ml/ Heparin Sodium (Porcine ) 1,000 units/ Amino Acids/Electrolytes/Dextrose 1,002 mls @ 63 mls/hr IV .[id number] [facility] Stop: 04/18/17 09:54 Chromium/Copper/Manganese/Zinc 1 ml/ Heparin Sodium (Porcine ) 1,000 units/ Amino Acids/Electrolytes/Dextrose 1,002 mls @ 63 mls/hr IV .[id number] [facility] Stop: 04/18/17 17:59 Lorazepam (Ativan) 0.5 mg IVP Q3H PRN PRN Reason: Anxiety Last Admin: 04/17/17 14:13 Dose: 0.5 mg Ondansetron HCl (Zofran Inj) 4 mg IVP Q6H PRN PRN Reason: Nausea/Vomiting Last Admin: 04/11/17 21:39 Dose: 4 mg Pantoprazole Sodium (Protonix Inj) 40 mg IVP Q12 [facility] Last Admin: 04/17/17 09:54 Dose: 40 mg Saccharomyces Boulardii (Florastor) 250 mg PO BID [facility] Last Admin: 04/17/17 09:49 Dose: Not Given Thiamine HCl (Vitamin B1 Tab) 100 mg PO DAILY [facility] Last Admin: 04/17/17 09:49 Dose: Not Given - Labs Labs: 04/17/17 06:38 04/17/17 06:38 PT 13.4 SECONDS (9.7-12.2) H 04/17/17 06:38 INR 1.2 04/17/17 06:38 APTT 30 SECONDS (21-34) 04/17/17 06:38 - Constitutional Appears: Non-toxic, Cachectic, Chronically Ill - Head Exam Head Exam: NORMOCEPHALIC - Eye Exam Eye Exam: PERRL - ENT Exam ENT Exam: Mucous Membranes Dry - Neck Exam Neck Exam: absent: Lymphadenopathy - Respiratory Exam Respiratory Exam: Decreased Breath Sounds - Cardiovascular Exam Cardiovascular Exam: REGULAR RHYTHM - GI/Abdominal Exam GI & Abdominal Exam: Distended, Soft - Rectal Exam Rectal Exam: Deferred - Exam Exam: NORMAL INSPECTION - Extremities Exam Extremities Exam: absent: Pedal Edema - Back Exam Back Exam: absent: CVA tenderness (L), CVA tenderness (R) - Neurological Exam Neurological Exam: Altered Assessment and Plan (1) Acute pancreatitis Status: Acute (2) Leucocytosis Status: Acute
--- NOTE | 2017-04-17 16:26 | CP.CCUPN ---
CCU Subjective - Physician Review Events Since Last Encounter (Free Text): 04/17/17 16:25 patient seen and examined in the intensive care unit Patient is agitated and tachycardic On Ativan Afebrile Status post hemodialysis CCU Objective - Vital Signs / Intake & Output Vital Signs (Last 4 hours): Vital Signs Pulse Resp BP Pulse Ox 04/17/17 15:00 148 H 43 H 99 04/17/17 14:48 131/90 04/17/17 13:48 126/82 04/17/17 13:00 137 H 24 99 04/17/17 12:47 153 H 38 H 122/88 96 04/17/17 12:32 134 H 18 108/76 Intake and Output (Last 8hrs): Intake & Output 04/17/17 04/17/17 04/17/17 06:59 14:59 22:59 Intake Total 1807 511 63 Output Total 115 Balance 1692 511 63 Weight 149 lb 7.574 oz Intake: Intake, IV Amount 1807 511 63 Left Wrist 1090 70 Right Femoral 717 441 63 Output: Urine 115 Urethral (Tovar) 115 - Physical Exam Head: Positive for: Atraumatic, Normocephalic. Negative for: Tenderness Pupils: Positive for: PERRL Extroacular Muscles: Positive for: EOMI Mouth: Positive for: Moist Mucous Membranes. Negative for: Dry, Drooling Nose (External): Positive for: Other (NGT in place) Nose (Internal): Positive for: Normal Inspection, Moist Neck: Positive for: Normal Range of Motion. Negative for: JVD, Lymphadenopathy Respiratory/Chest: Positive for: Clear to Auscultation. Negative for: Respiratory Distress, Accessory Muscle Use Cardiovascular: Positive for: Regular Rate and Rhythm, Normal S1, S2 Abdomen: Positive for: Tenderness (mild tenderness of palpation. patient continues to move her arms towards hands on palpation). Negative for: Distention, Guarding Upper Extremity: Positive for: Normal Inspection, Normal ROM, Capillary Refill < 2s. Negative for: Edema Lower Extremity: Positive for: Normal Inspection. Negative for: Edema Neurological: Positive for: CN II-XII Intact Skin: Positive for: Warm, Pale Psychiatric: Positive for: Alert - Medications Active Medications: Active Medications Generic Name Dose Route Start Last Admin Trade Name Freq PRN Reason Stop Dose Admin Acetaminophen 325 mg 03/29/17 07:57 04/13/17 04:38 Tylenol 325 Mg Supp [place] 325 mg Q4 PRN Administration Fever >100.4 F Ascorbic Acid 500 mg 04/08/17 12:30 04/17/17 09:49 Vitamin C 500 Mg Tab PO Not Given DAILY AGUSTIN Haloperidol Lactate 1 mg 03/29/17 18:47 04/17/17 00:00 Haldol IVP 1 mg BID PRN Administration Agitation Hydromorphone HCl 0.5 mg 04/17/17 07:16 04/17/17 08:22 Dilaudid IVP 0.5 mg Q3 PRN Administration Pain, moderate (4-7) Hydromorphone HCl 1 mg 04/17/17 07:16 04/17/17 15:15 Dilaudid IVP 1 mg Q3 PRN Administration Pain, severe (8-10) Piperacillin Sod/Tazobactam Sod 2.25 gm in 50 mls @ 100 mls/hr 04/12/17 18:00 04/17/17 12:18 Zosyn 2.25 Gm Iv Premix IVPB 100 mls/hr Q8H AGUSTIN Administration Chromium/Copper/Manganese/ 1,001.2 mls @ 63 mls/hr 04/17/17 10:00 04/17/17 11 :11 Seleni/Zn 1 ml/ Heparin Sodium IV 04/17/17 17:59 63 mls/hr (Porcine) 1,000 units/ Amino .[id number] AGUSTIN Administration Acids/Electrolytes/Dextrose Chromium/Copper/Manganese/Zinc 1,002 mls @ 63 mls/hr 04/17/17 18:00 1 ml/ Heparin Sodium (Porcine IV 04/18/17 09:54 ) 1,000 units/ Amino Acids/ .[id number] [facility] Electrolytes/Dextrose Chromium/Copper/Manganese/Zinc 1,002 mls @ 63 mls/hr 04/18/17 09:55 1 ml/ Heparin Sodium (Porcine IV 04/18/17 17:59 ) 1,000 units/ Amino Acids/ .[id number] [facility] Electrolytes/Dextrose Lorazepam 0.5 mg 04/01/17 16:08 04/17/17 14:13 Ativan IVP 0.5 mg Q3H PRN Administration Anxiety Ondansetron HCl 4 mg 03/27/17 23:45 04/11/17 21:39 Zofran Inj IVP 4 mg Q6H PRN Administration Nausea/Vomiting Pantoprazole Sodium 40 mg 04/17/17 10:00 04/17/17 09:54 Protonix Inj IVP 40 mg Q12 AGUSTIN Administration Saccharomyces Boulardii 250 mg 04/08/17 18:00 04/17/17 09:49 Florastor PO Not Given BID AGUSTIN Thiamine HCl 100 mg 04/08/17 12:30 04/17/17 09:49 Vitamin B1 Tab PO Not Given DAILY AGUSTIN - Patient Studies Lab Studies: Microbiology Studies 04/12/17 08:00 Stool Culture - Final Stool NO SALMONELLA, SHIGELLA OR CAMPYLOBACTER ISOLATED. Lab Studies 04/17/17 04/17/17 04/17/17 Range/Units 11:28 06:38 06:38 WBC (4.8-10.8) K/uL RBC (3.80-5.20) Mil/uL Hgb (11.0-16.0) g/dL Hct (34.0-47.0) % MCV (81.0-99.0) fL MCH (27.0-31.0) pg MCHC (33.0-37.0) g/dL RDW (11.5-14.5) % Plt Count (130-400) K/uL MPV (7.2-11.7) fL Neut % (Auto) (50.0-75.0) % Lymph % (Auto) (20.0-40.0) % [place] % (Auto) (0.0-10.0) % Eos % (Auto) (0.0-4.0) % Baso % (Auto) (0.0-2.0) % Neut # (1.8-7.0) K/uL Lymph # (1.0-4.3) K/uL [place] # (0.0-0.8) K/uL Eos # (0.0-0.7) K/uL Baso # (0.0-0.2) K/uL Neutrophils % (Manual) (50-75) % Band Neutrophils % (0-2) % Lymphocytes % (Manual) (20-40) % Monocytes % (Manual) (0-10) % Eosinophils % (Manual) (0-4) % Toxic Granulation Platelet Estimate (NORMAL) Large Platelets Polychromasia Basophilic Stippling Anisocytosis (manual) Macrocytosis (manual) PT 13.4 H (9.7-12.2) SECONDS INR 1.2 APTT 30 (21-34) SECONDS Sodium 135 (132-148) mmol/L Potassium 3.6 (3.6-5.2) mmol/L Chloride 101 (98-107) mmol/L Carbon Dioxide 24 (22-30) mmol/L Anion Gap 13 (10-20) BUN 33 H (7-17) mg/dL Creatinine 4.4 H (0.7-1.2) mg/dL Est GFR ( Amer) 14 Est GFR (Non-Af Amer) 11 POC Glucose (mg/dL) 136 H (65-110) mg/dL Random Glucose 148 H (65-105) mg/dL Calcium 7.5 L (8.6-10.4) mg/dl Phosphorus 3.4 (2.5-4.5) mg/dL Magnesium 1.7 (1.6-2.3) mg/dL Total Bilirubin 0.8 (0.2-1.3) mg/dL AST 18 (14-36) U/L ALT 29 (9-52) U/L Alkaline Phosphatase 103 (38-126) U/L Total Protein 5.5 L (6.3-8.3) g/dL Albumin 2.7 L (3.5-5.0) g/dL Globulin 2.8 (2.2-3.9) gm/dL Albumin/Globulin Ratio 1.0 (1.0-2.1) 04/17/17 04/17/17 04/17/17 Range/Units 06:38 06:22 06:19 WBC 13.3 H (4.8-10.8) K/uL RBC 3.10 L (3.80-5.20) Mil/uL Hgb 9.1 L (11.0-16.0) g/dL Hct 26.4 L (34.0-47.0) % MCV 85.2 (81.0-99.0) fL MCH 29.3 (27.0-31.0) pg MCHC 34.4 (33.0-37.0) g/dL RDW 15.4 H (11.5-14.5) % Plt Count 303 (130-400) K/uL MPV 7.6 (7.2-11.7) fL Neut % (Auto) 77.2 H (50.0-75.0) % Lymph % (Auto) 6.1 L (20.0-40.0) % [place] % (Auto) 13.4 H (0.0-10.0) % Eos % (Auto) 3.2 (0.0-4.0) % Baso % (Auto) 0.1 (0.0-2.0) % Neut # 10.3 H (1.8-7.0) K/uL Lymph # 0.8 L (1.0-4.3) K/uL [place] # 1.8 H (0.0-0.8) K/uL Eos # 0.4 (0.0-0.7) K/uL Baso # 0.0 (0.0-0.2) K/uL Neutrophils % (Manual) 75 (50-75) % Band Neutrophils % 5 H (0-2) % Lymphocytes % (Manual) 8 L (20-40) % Monocytes % (Manual) 9 (0-10) % Eosinophils % (Manual) 3 (0-4) % Toxic Granulation Present Platelet Estimate Normal (NORMAL) Large Platelets Present Polychromasia Slight Basophilic Stippling Slight Anisocytosis (manual) Slight Macrocytosis (manual) Slight PT (9.7-12.2) SECONDS INR APTT (21-34) SECONDS Sodium (132-148) mmol/L Potassium (3.6-5.2) mmol/L Chloride (98-107) mmol/L Carbon Dioxide (22-30) mmol/L Anion Gap (10-20) BUN (7-17) mg/dL Creatinine (0.7-1.2) mg/dL Est GFR ( Amer) Est GFR (Non-Af Amer) POC Glucose (mg/dL) 123 H > 500 H* (65-110) mg/dL Random Glucose (65-105) mg/dL Calcium (8.6-10.4) mg/dl Phosphorus (2.5-4.5) mg/dL Magnesium (1.6-2.3) mg/dL Total Bilirubin (0.2-1.3) mg/dL AST (14-36) U/L ALT (9-52) U/L Alkaline Phosphatase (38-126) U/L Total Protein (6.3-8.3) g/dL Albumin (3.5-5.0) g/dL Globulin (2.2-3.9) gm/dL Albumin/Globulin Ratio (1.0-2.1) 04/16/17 04/16/17 Range/Units 23:48 17:43 WBC (4.8-10.8) K/uL RBC (3.80-5.20) Mil/uL Hgb (11.0-16.0) g/dL Hct (34.0-47.0) % MCV (81.0-99.0) fL MCH (27.0-31.0) pg MCHC (33.0-37.0) g/dL RDW (11.5-14.5) % Plt Count (130-400) K/uL MPV (7.2-11.7) fL Neut % (Auto) (50.0-75.0) % Lymph % (Auto) (20.0-40.0) % [place] % (Auto) (0.0-10.0) % Eos % (Auto) (0.0-4.0) % Baso % (Auto) (0.0-2.0) % Neut # (1.8-7.0) K/uL Lymph # (1.0-4.3) K/uL [place] # (0.0-0.8) K/uL Eos # (0.0-0.7) K/uL Baso # (0.0-0.2) K/uL Neutrophils % (Manual) (50-75) % Band Neutrophils % (0-2) % Lymphocytes % (Manual) (20-40) % Monocytes % (Manual) (0-10) % Eosinophils % (Manual) (0-4) % Toxic Granulation Platelet Estimate (NORMAL) Large Platelets Polychromasia Basophilic Stippling Anisocytosis (manual) Macrocytosis (manual) PT (9.7-12.2) SECONDS INR APTT (21-34) SECONDS Sodium (132-148) mmol/L Potassium (3.6-5.2) mmol/L Chloride (98-107) mmol/L Carbon Dioxide (22-30) mmol/L Anion Gap (10-20) BUN (7-17) mg/dL Creatinine (0.7-1.2) mg/dL Est GFR ( Amer) Est GFR (Non-Af Amer) POC Glucose (mg/dL) 121 H 150 H (65-110) mg/dL Random Glucose (65-105) mg/dL Calcium (8.6-10.4) mg/dl Phosphorus (2.5-4.5) mg/dL Magnesium (1.6-2.3) mg/dL Total Bilirubin (0.2-1.3) mg/dL AST (14-36) U/L ALT (9-52) U/L Alkaline Phosphatase (38-126) U/L Total Protein (6.3-8.3) g/dL Albumin (3.5-5.0) g/dL Globulin (2.2-3.9) gm/dL Albumin/Globulin Ratio (1.0-2.1) Laboratory Results - last 24 hr 04/16/17 04/16/17 04/17/17 17:43 23:48 06:19 WBC RBC Hgb Hct MCV MCH MCHC RDW Plt Count MPV Neut % (Auto) Lymph % (Auto) [place] % (Auto) Eos % (Auto) Baso % (Auto) Neut # Lymph # [place] # Eos # Baso # Neutrophils % (Manual) Band Neutrophils % Lymphocytes % (Manual) Monocytes % (Manual) Eosinophils % (Manual) Toxic Granulation Platelet Estimate Large Platelets Polychromasia Basophilic Stippling Anisocytosis (manual) Macrocytosis (manual) PT INR APTT Sodium Potassium Chloride Carbon Dioxide Anion Gap BUN Creatinine Est GFR ( Amer) Est GFR (Non-Af Amer) POC Glucose (mg/dL) 150 H 121 H > 500 H* Random Glucose Calcium Phosphorus Magnesium Total Bilirubin AST ALT Alkaline Phosphatase Total Protein Albumin Globulin Albumin/Globulin Ratio 04/17/17 04/17/17 04/17/17 06:22 06:38 06:38 WBC 13.3 H RBC 3.10 L Hgb 9.1 L Hct 26.4 L MCV 85.2 MCH 29.3 MCHC 34.4 RDW 15.4 H Plt Count 303 MPV 7.6 Neut % (Auto) 77.2 H Lymph % (Auto) 6.1 L [place] % (Auto) 13.4 H Eos % (Auto) 3.2 Baso % (Auto) 0.1 Neut # 10.3 H Lymph # 0.8 L [place] # 1.8 H Eos # 0.4 Baso # 0.0 Neutrophils % (Manual) 75 Band Neutrophils % 5 H Lymphocytes % (Manual) 8 L Monocytes % (Manual) 9 Eosinophils % (Manual) 3 Toxic Granulation Present Platelet Estimate Normal Large Platelets Present Polychromasia Slight Basophilic Stippling Slight Anisocytosis (manual) Slight Macrocytosis (manual) Slight PT 13.4 H INR 1.2 APTT 30 Sodium Potassium Chloride Carbon Dioxide Anion Gap BUN Creatinine Est GFR ( Amer) Est GFR (Non-Af Amer) POC Glucose (mg/dL) 123 H Random Glucose Calcium Phosphorus Magnesium Total Bilirubin AST ALT Alkaline Phosphatase Total Protein Albumin Globulin Albumin/Globulin Ratio 04/17/17 04/17/17 06:38 11:28 WBC RBC Hgb Hct MCV MCH MCHC RDW Plt Count MPV Neut % (Auto) Lymph % (Auto) [place] % (Auto) Eos % (Auto) Baso % (Auto) Neut # Lymph # [place] # Eos # Baso # Neutrophils % (Manual) Band Neutrophils % Lymphocytes % (Manual) Monocytes % (Manual) Eosinophils % (Manual) Toxic Granulation Platelet Estimate Large Platelets Polychromasia Basophilic Stippling Anisocytosis (manual) Macrocytosis (manual) PT INR APTT Sodium 135 Potassium 3.6 Chloride 101 Carbon Dioxide 24 Anion Gap 13 BUN 33 H Creatinine 4.4 H Est GFR ( Amer) 14 Est GFR (Non-Af Amer) 11 POC Glucose (mg/dL) 136 H Random Glucose 148 H Calcium 7.5 L Phosphorus 3.4 Magnesium 1.7 Total Bilirubin 0.8 AST 18 ALT 29 Alkaline Phosphatase 103 Total Protein 5.5 L Albumin 2.7 L Globulin 2.8 Albumin/Globulin Ratio 1.0 Fingerstick Blood Sugar Results: 136 Review of Systems - Review of Systems Systems not reviewed;Unavailable: Uncooperative Critical Care Progress Note - Nutrition Nutrition: Nutrition Category Date Time Status NPO Diet [DIET] Diets 04/08/17 Dinner Active Assessment/Plan (1) SMAS (superior mesenteric artery syndrome) Current Visit: Yes Status: Acute Comment: for surgery tomorrow Continue antibiotics by infectious disease Continue sedation and pain medication Nothing by mouth No active bleeding noted On Protonix (2) Acute renal failure Current Visit: Yes Status: Acute (3) Mental retardation Current Visit: No Status: Acute
[2017-04-17] MEDS ORDERED: TPN#7 IV SCH (18:00)
--- NOTE | 2017-04-17 18:16 | CP.PCM.PN ---
Subjective - Date & Time of Evaluation Date of Evaluation: 04/17/17 Time of Evaluation: 10:00 - Subjective Subjective: Dr. Reyes Patient is seen and examined in room. Patient is non verbal and looks to be in alot of pain. She is moving alot and seems to be in alot of pain. Objective - Vital Signs/Intake and Output Vital Signs (last 24 hours): Temp Pulse Resp BP Pulse Ox 98.7 F 145 H 25 H 112/72 98 04/17/17 12:17 04/17/17 18:00 04/17/17 18:00 04/17/17 17:47 04/17/17 18:00 Intake and Output: 04/17/17 04/17/17 06:59 18:59 Intake Total 2299 813 Output Total 220 Balance 2079 813 - Medications Medications: Current Medications Acetaminophen (Tylenol 325 Mg Supp) 325 mg [place] Q4 PRN PRN Reason: Fever >100.4 F Last Admin: 04/13/17 04:38 Dose: 325 mg Ascorbic Acid (Vitamin C 500 Mg Tab) 500 mg PO DAILY [facility] Last Admin: 04/17/17 09:49 Dose: Not Given Haloperidol Lactate (Haldol) 1 mg IVP BID PRN PRN Reason: Agitation Last Admin: 04/17/17 00:00 Dose: 1 mg Hydromorphone HCl (Dilaudid) 0.5 mg IVP Q3 PRN PRN Reason: Pain, moderate (4-7) Last Admin: 04/17/17 08:22 Dose: 0.5 mg Hydromorphone HCl (Dilaudid) 1 mg IVP Q3 PRN PRN Reason: Pain, severe (8-10) Last Admin: 04/17/17 15:15 Dose: 1 mg Piperacillin Sod/Tazobactam Sod (Zosyn 2.25 Gm Iv Premix) 2.25 gm in 50 mls @ 100 mls/hr IVPB Q8H [facility] Last Admin: 04/17/17 17:41 Dose: 100 mls/hr Chromium/Copper/Manganese/Zinc 1 ml/ Heparin Sodium (Porcine ) 1,000 units/ Amino Acids/Electrolytes/Dextrose 1,002 mls @ 63 mls/hr IV .[id number] [facility] Stop: 04/18/17 09:54 Last Admin: 04/17/17 17:45 Dose: 63 mls/hr Chromium/Copper/Manganese/Zinc 1 ml/ Heparin Sodium (Porcine ) 1,000 units/ Amino Acids/Electrolytes/Dextrose 1,002 mls @ 63 mls/hr IV .[id number] [facility] Stop: 04/18/17 17:59 Lorazepam (Ativan) 0.5 mg IVP Q3H PRN PRN Reason: Anxiety Last Admin: 04/17/17 14:13 Dose: 0.5 mg Ondansetron HCl (Zofran Inj) 4 mg IVP Q6H PRN PRN Reason: Nausea/Vomiting Last Admin: 04/11/17 21:39 Dose: 4 mg Pantoprazole Sodium (Protonix Inj) 40 mg IVP Q12 [facility] Last Admin: 04/17/17 09:54 Dose: 40 mg Saccharomyces Boulardii (Florastor) 250 mg PO BID [facility] Last Admin: 04/17/17 17:45 Dose: Not Given Thiamine HCl (Vitamin B1 Tab) 100 mg PO DAILY [facility] Last Admin: 04/17/17 09:49 Dose: Not Given - Labs Labs: 04/17/17 06:38 04/17/17 06:38 PT 13.4 SECONDS (9.7-12.2) H 04/17/17 06:38 INR 1.2 04/17/17 06:38 APTT 30 SECONDS (21-34) 04/17/17 06:38 - Constitutional Appears: In Acute Distress - Eye Exam Eye Exam: absent: Scleral icterus - ENT Exam ENT Exam: Mucous Membranes Dry - Respiratory Exam Respiratory Exam: Rales. absent: Clear to Ausculation Bilateral, Rhonchi, Wheezes - Cardiovascular Exam Cardiovascular Exam: Tachycardia, REGULAR RHYTHM, +S1, +S2. absent: Gallop, Rubs - GI/Abdominal Exam GI & Abdominal Exam: Soft - Neurological Exam Neurological Exam: absent: Alert - Skin Skin Exam: Warm Assessment and Plan - Assessment and Plan (Free Text) Assessment: (1) SMAS (superior mesenteric artery syndrome) Assessment & Plan: 04/17: Per nursing staff patient will have surgery with Dr. Montana for a ex- lap. Her pain medication increased in frequency. TPN for nutrion given. Patient is scheduled to have surgery with Dr. Montana on Tuesday. She is one Dilauded and Ativan for agitation. She is also on protonix for a gastric ulcer. She is carlos still in alot of pain. TPN for nutrion is currently given. Zosyn given as well for any infection. Status: Acute (2) SBO (small bowel obstruction) Assessment & Plan: 04/17: see above note, patient for exlap tommorrow. secondary to SMA follow up recs by GI weight loss consultant. Status: Acute (3) Gastric ulcer Assessment & Plan: protonix given 80mg IV daily. Status: Acute (4) Renal failure Assessment & Plan: currently on Dialysis and seen by [employer], Dr. Saenz's group. Status: Acute (5) Mental retardation Assessment & Plan: patient is non verbal. Status: Acute (6) Schizophrenia Assessment & Plan: Haldol given for agitation. Status: Acute
--- NOTE | 2017-04-17 21:43 | CP.PCM.PN ---
Subjective - Date & Time of Evaluation Date of Evaluation: 04/17/17 Time of Evaluation: 17:30 - Subjective Subjective: Patient with fluctuating heart rate High heart rate likely secondary to metobolic or pain related Consider Cardizem 30 QID if HR >120 Physical Exam - Constitutional Appears: In Acute Distress, Agitated, Chronically Ill - Head Exam Head Exam: ATRAUMATIC, NORMAL INSPECTION - Eye Exam Eye Exam: EOMI, Normal appearance - Neck Exam Neck exam: Positive for: Normal Inspection. Negative for: Tenderness - Respiratory Exam Respiratory Exam: Decreased Breath Sounds, NORMAL BREATHING PATTERN - Cardiovascular Exam Cardiovascular Exam: Tachycardia, +S1 - GI/Abdominal Exam GI & Abdominal Exam: Soft, Tenderness - Extremities Exam Extremities exam: Positive for: normal inspection. Negative for: tenderness - Neurological Exam Neurological exam: Altered, CN II-XII Intact - Skin Skin Exam: Dry, Warm Objective - Vital Signs/Intake and Output Vital Signs (last 24 hours): Temp Pulse Resp BP Pulse Ox 98.4 F 132 H 24 109/76 98 04/17/17 20:00 04/17/17 21:00 04/17/17 21:00 04/17/17 20:47 04/17/17 21:00 Intake and Output: 04/17/17 04/18/17 18:59 06:59 Intake Total 813 129 Balance 813 129 - Medications Medications: Current Medications Acetaminophen (Tylenol 325 Mg Supp) 325 mg [place] Q4 PRN PRN Reason: Fever >100.4 F Last Admin: 04/13/17 04:38 Dose: 325 mg Ascorbic Acid (Vitamin C 500 Mg Tab) 500 mg PO DAILY AGUSTIN Last Admin: 04/17/17 09:49 Dose: Not Given Haloperidol Lactate (Haldol) 1 mg IVP BID PRN PRN Reason: Agitation Last Admin: 04/17/17 00:00 Dose: 1 mg Hydromorphone HCl (Dilaudid) 0.5 mg IVP Q3 PRN PRN Reason: Pain, moderate (4-7) Last Admin: 04/17/17 20:17 Dose: 0.5 mg Hydromorphone HCl (Dilaudid) 1 mg IVP Q3 PRN PRN Reason: Pain, severe (8-10) Last Admin: 04/17/17 18:45 Dose: 1 mg Piperacillin Sod/Tazobactam Sod (Zosyn 2.25 Gm Iv Premix) 2.25 gm in 50 mls @ 100 mls/hr IVPB Q8H [facility] Last Admin: 04/17/17 17:41 Dose: 100 mls/hr Chromium/Copper/Manganese/Zinc 1 ml/ Heparin Sodium (Porcine ) 1,000 units/ Amino Acids/Electrolytes/Dextrose 1,002 mls @ 63 mls/hr IV .[id number] [facility] Stop: 04/18/17 09:54 Last Admin: 04/17/17 17:45 Dose: 63 mls/hr Chromium/Copper/Manganese/Zinc 1 ml/ Heparin Sodium (Porcine ) 1,000 units/ Amino Acids/Electrolytes/Dextrose 1,002 mls @ 63 mls/hr IV .[id number] [facility] Stop: 04/18/17 17:59 Lorazepam (Ativan) 0.5 mg IVP Q3H PRN PRN Reason: Anxiety Last Admin: 04/17/17 20:17 Dose: 0.5 mg Ondansetron HCl (Zofran Inj) 4 mg IVP Q6H PRN PRN Reason: Nausea/Vomiting Last Admin: 04/11/17 21:39 Dose: 4 mg Pantoprazole Sodium (Protonix Inj) 40 mg IVP Q12 [facility] Last Admin: 04/17/17 21:24 Dose: 40 mg Saccharomyces Boulardii (Florastor) 250 mg PO BID [facility] Last Admin: 04/17/17 17:45 Dose: Not Given Thiamine HCl (Vitamin B1 Tab) 100 mg PO DAILY [facility] Last Admin: 04/17/17 09:49 Dose: Not Given - Labs Labs: 04/17/17 06:38 04/17/17 06:38 PT 13.4 SECONDS (9.7-12.2) H 04/17/17 06:38 INR 1.2 04/17/17 06:38 APTT 30 SECONDS (21-34) 04/17/17 06:38 Assessment and Plan - Assessment and Plan (Free Text) Assessment: Assessment & Plan - Assessment and Plan (Free Text) Assessment: Tachycardia JIMBO Acute pancreatitis Volume depletion Sepsis syndrome Intra-abdominal fluid collection- possible abscess Plan: ECHO: Normal EF and no valvular issues Tachycardia most likely due to medical issues Cardizem drip/PO as needed
[2017-04-18] MEDS: Piperacill/Tazo 2.25gm in Dex 2.25 GM/50 ML BAG IVPB SCH ×5 (02:55→17:33)
[2017-04-18 06:58] LABS: INR 1.2
[2017-04-18 07:01] LABS: BASO % 0.3 % (0.0-2.0); EOS # 0.3 K/uL (0.0-0.7); EOS % 1.5 % (0.0-4.0); LYMPH # 0.8 K/uL (1.0-4.3); LYMPH % 4.4 % (20.0-40.0); MEAN CELL VOLUME 85.4 fL (81.0-99.0); MEAN CORPUSCULAR HEMOGLOBIN 28.8 pg (27.0-31.0); MEAN CORPUSCULAR HGB CONC 33.7 g/dL (33.0-37.0); MEAN PLATELET VOLUME 7.8 fL (7.2-11.7); MONO # 2.2 K/uL (0.0-0.8); MONO % 12.4 % (0.0-10.0); NEUT # 14.7 K/uL (1.8-7.0); NEUT % 81.4 % (50.0-75.0); NRBC % 0.1 % (0.0-2.0); PLATELET COUNT 350 K/uL (130-400); RBC 3.13 Mil/uL (3.80-5.20); RED CELL DISTRIBUTION WIDTH 15.2 % (11.5-14.5); WHITE BLOOD COUNT 18.1 K/uL (4.8-10.8)
[2017-04-18 07:19] LABS: ALBUMIN 2.8 g/dL (3.5-5.0); CALCIUM 7.9 mg/dl (8.6-10.4)
--- NOTE | 2017-04-18 07:47 | CP.PCM.PN ---
<Katheryn Silveira - Last Filed: 04/18/17 11:31> Subjective - Date & Time of Evaluation Date of Evaluation: 04/18/17 Time of Evaluation: 06:35 - Subjective Subjective: GI Fellow PGY4 Progress Note Pt seen and evaluated at bedside, pt nonverbal, currently very agitated and moaning in pain, HR 150s. Per bedside aid, pain medication not helping alleviate discomfort. No active GI bleeding noted, Hgb stable. No NGT on TPN. Plan for OR today. ROS: A 12pt ROS was unable to be obtained, pt nonverbal Objective - Vital Signs/Intake and Output Vital Signs (last 24 hours): Temp Pulse Resp BP Pulse Ox 99.8 F H 157 H 14 122/99 H 98 04/18/17 00:34 04/18/17 07:00 04/18/17 07:00 04/18/17 06:48 04/18/17 06:48 Intake and Output: 04/18/17 04/18/17 06:59 18:59 Intake Total 746 63 Balance 746 63 - Medications Medications: Current Medications Acetaminophen (Tylenol 325 Mg Supp) 325 mg NV Q4 PRN PRN Reason: Fever >100.4 F Last Admin: 04/13/17 04:38 Dose: 325 mg Ascorbic Acid (Vitamin C 500 Mg Tab) 500 mg PO DAILY [facility] Last Admin: 04/17/17 09:49 Dose: Not Given Haloperidol Lactate (Haldol) 1 mg IVP BID PRN PRN Reason: Agitation Last Admin: 04/17/17 00:00 Dose: 1 mg Hydromorphone HCl (Dilaudid) 0.5 mg IVP Q3 PRN PRN Reason: Pain, moderate (4-7) Last Admin: 04/17/17 20:17 Dose: 0.5 mg Hydromorphone HCl (Dilaudid) 1 mg IVP Q3 PRN PRN Reason: Pain, severe (8-10) Last Admin: 04/18/17 07:38 Dose: 1 mg Piperacillin Sod/Tazobactam Sod (Zosyn 2.25 Gm Iv Premix) 2.25 gm in 50 mls @ 100 mls/hr IVPB Q8H [facility] Last Admin: 04/18/17 02:55 Dose: 100 mls/hr Chromium/Copper/Manganese/Zinc 1 ml/ Heparin Sodium (Porcine ) 1,000 units/ Amino Acids/Electrolytes/Dextrose 1,002 mls @ 63 mls/hr IV .[id number] [facility] Stop: 04/18/17 09:54 Last Admin: 04/17/17 17:45 Dose: 63 mls/hr Chromium/Copper/Manganese/Zinc 1 ml/ Heparin Sodium (Porcine ) 1,000 units/ Amino Acids/Electrolytes/Dextrose 1,002 mls @ 63 mls/hr IV .[id number] [facility] Stop: 04/18/17 17:59 Lorazepam (Ativan) 0.5 mg IVP Q3H PRN PRN Reason: Anxiety Last Admin: 04/18/17 03:30 Dose: 0.5 mg Ondansetron HCl (Zofran Inj) 4 mg IVP Q6H PRN PRN Reason: Nausea/Vomiting Last Admin: 04/11/17 21:39 Dose: 4 mg Pantoprazole Sodium (Protonix Inj) 40 mg IVP Q12 [facility] Last Admin: 04/17/17 21:24 Dose: 40 mg Saccharomyces Boulardii (Florastor) 250 mg PO BID [facility] Last Admin: 04/17/17 17:45 Dose: Not Given Thiamine HCl (Vitamin B1 Tab) 100 mg PO DAILY [facility] Last Admin: 04/17/17 09:49 Dose: Not Given - Labs Labs: 04/18/17 06:44 04/18/17 06:44 PT 13.0 SECONDS (9.7-12.2) H 04/18/17 06:44 INR 1.2 04/18/17 06:44 APTT 30 SECONDS (21-34) 04/17/17 06:38 Assessment and Plan - Assessment and Plan (Free Text) Assessment: Alondra Rivera is a 37F w/ hx of Schizophrenia, mental disability who presents to the hospital due to abd pain diarrhea. She was found to have acute pancreatitis and severe gastric distention with retained food. Renal function is worsening with Cr rising and BUN s/p HD. 1. SMA syndrome 2. Anemia 3. Sepsis 4. Hemorrhagic/ischemic gastropathy 5. Phytobezor, marked stomach distention 6. Complicated Acute pancreatitis 7. Renal failure s/p HD Plan: -Continue supportive care with pain control -s/p EGD with ulcerated mucosa, no signs of active GI bleed, clot and friability , phytobezore cleared from stomach -Continue NPO, on TPN -No NGT tube with ulcerated mucosa can cause trauma, bleeding or perforation -Continue PPI bid -Pancreatitis improved, continue IVFs -No GI bleeding, keep hgb > 7 -Continue antibiotics as per ID -Renal failure s/p HD -Symptoms due to SMA syndrome plan for surgery today -Will continue to follow closely <Jaymie Singh MD - Last Filed: 04/18/17 12:16> Objective - Vital Signs/Intake and Output Vital Signs (last 24 hours): Temp Pulse Resp BP Pulse Ox 100 F H 141 H 21 122/88 97 04/18/17 08:00 04/18/17 09:00 04/18/17 09:00 04/18/17 09:00 04/18/17 09:00 Intake and Output: 04/18/17 04/18/17 06:59 18:59 Intake Total 746 189 Balance 746 189 - Medications Medications: Current Medications Acetaminophen (Tylenol 325 Mg Supp) 325 mg NV Q4 PRN PRN Reason: Fever >100.4 F Last Admin: 04/13/17 04:38 Dose: 325 mg Ascorbic Acid (Vitamin C 500 Mg Tab) 500 mg PO DAILY [facility] Last Admin: 04/18/17 09:52 Dose: Not Given Haloperidol Lactate (Haldol) 1 mg IVP BID PRN PRN Reason: Agitation Last Admin: 04/17/17 00:00 Dose: 1 mg Hydromorphone HCl (Dilaudid) 0.5 mg IVP Q3 PRN PRN Reason: Pain, moderate (4-7) Last Admin: 04/17/17 20:17 Dose: 0.5 mg Hydromorphone HCl (Dilaudid) 1 mg IVP Q3 PRN PRN Reason: Pain, severe (8-10) Last Admin: 04/18/17 07:38 Dose: 1 mg Piperacillin Sod/Tazobactam Sod (Zosyn 2.25 Gm Iv Premix) 2.25 gm in 50 mls @ 100 mls/hr IVPB Q8H [facility] Last Admin: 04/18/17 10:00 Dose: 50 mls Chromium/Copper/Manganese/Zinc 1 ml/ Heparin Sodium (Porcine ) 1,000 units/ Amino Acids/Electrolytes/Dextrose 1,002 mls @ 63 mls/hr IV .[id number] [facility] Stop: 04/18/17 17:59 Lorazepam (Ativan) 0.5 mg IVP Q3H PRN PRN Reason: Anxiety Last Admin: 04/18/17 03:30 Dose: 0.5 mg Ondansetron HCl (Zofran Inj) 4 mg IVP Q6H PRN PRN Reason: Nausea/Vomiting Last Admin: 04/11/17 21:39 Dose: 4 mg Pantoprazole Sodium (Protonix Inj) 40 mg IVP Q12 [facility] Last Admin: 04/18/17 09:52 Dose: Not Given Saccharomyces Boulardii (Florastor) 250 mg PO BID [facility] Last Admin: 04/18/17 09:51 Dose: Not Given Thiamine HCl (Vitamin B1 Tab) 100 mg PO DAILY [facility] Last Admin: 04/18/17 09:52 Dose: Not Given - Labs Labs: 04/18/17 06:44 04/18/17 06:44 PT 13.0 SECONDS (9.7-12.2) H 04/18/17 06:44 INR 1.2 04/18/17 06:44 APTT 30 SECONDS (21-34) 04/17/17 06:38 Attending/Attestation - Attestation I have personally seen and examined this patient.: Yes I have fully participated in the care of the patient.: Yes I have reviewed all pertinent clinical information, including history, physical exam and plan: Yes Notes (Text): 04/18/17 12:14 patient seen at bedside in MICU. This is a 37 year old female with h/o mental disability/schizophrenia who is admitted with abdominal pain, found to have severe gastric distention, acute pancreatitis, gastric bezoar, severe upper GI bleeding due to gastric ulceration due to SMA syndrome. H/Hct stable. No acute events in 24 hours. Today she is scheduled for OR for gastrojejunostomy and likely PEJ placement. Rest of plan as per MICU and surgical team
[2017-04-18 08:44] LABS: ANISOCYTOSIS SLIGHT; BANDS 1 % (0-2); LYMPHOCYTE 2 % (20-40); MONOCYTE 10 % (0-10); NEUTROPHIL 87 % (50-75); PLATELET ESTIMATE NORMAL (NORMAL); TOTAL CELLS COUNTED 100
[2017-04-18 08:45] LABS: HYPOCHROMIC SLIGHT; POLYCHROMIC SLIGHT
[2017-04-18] MEDS ORDERED: ePHEDrine 50 mg/ml Inj ONE (09:01)
[2017-04-18] MEDS ORDERED: Phenylephrine 10 mg/ml Inj ONE (09:01)
[2017-04-18] MEDS ORDERED: Lactated Ringer's 1,000 ML IV ONE (09:04)
[2017-04-18] MEDS ORDERED: Midazolam 2 MG/2 ML VIAL ONE (09:23)
[2017-04-18] MEDS ORDERED: Rocuronium 10 mg/ml (5 ml) ONE ×2 (09:24→10:13)
[2017-04-18] MEDS ORDERED: Propofol 10 mg/ml Inj (20 ML) ONE (09:24)
[2017-04-18] MEDS ORDERED: Etomidate 20 mg/10ml Inj IV ONE (09:24)
[2017-04-18] MEDS ORDERED: Sodium Chloride 0.9% 1,000 ML IV ONE ×3 (09:40→12:42)
[2017-04-18] MEDS: Saccharomyces Boulardi 250 mg Cap PO SCH ×2 (09:51→17:35)
[2017-04-18] MEDS ORDERED: TPN#8 IV SCH (09:55)
[2017-04-18] MEDS ORDERED: ceFAZolin IV 1 gm in Dextrose 1 GM/50 ML BAG IVPB ONE (10:08)
--- NOTE | 2017-04-18 13:05 | CP.PCM.PN ---
Subjective - Date & Time of Evaluation Date of Evaluation: 04/18/17 Time of Evaluation: 13:03 - Subjective Subjective: s/p surgery- gastric bypass Has been NPO, on TPN s/p dialysis 04/17 Still oliguric Cannot obtain ROS Objective - Vital Signs/Intake and Output Vital Signs (last 24 hours): Temp Pulse Resp BP Pulse Ox 100 F H 141 H 21 122/88 97 04/18/17 08:00 04/18/17 09:00 04/18/17 09:00 04/18/17 09:00 04/18/17 09:00 Intake and Output: 04/18/17 04/18/17 06:59 18:59 Intake Total 746 189 Balance 746 189 - Medications Medications: Current Medications Acetaminophen (Tylenol 325 Mg Supp) 325 mg DE Q4 PRN PRN Reason: Fever >100.4 F Last Admin: 04/13/17 04:38 Dose: 325 mg Ascorbic Acid (Vitamin C 500 Mg Tab) 500 mg PO DAILY [facility] Last Admin: 04/18/17 09:52 Dose: Not Given Haloperidol Lactate (Haldol) 1 mg IVP BID PRN PRN Reason: Agitation Last Admin: 04/17/17 00:00 Dose: 1 mg Hydromorphone HCl (Dilaudid) 0.5 mg IVP Q3 PRN PRN Reason: Pain, moderate (4-7) Last Admin: 04/17/17 20:17 Dose: 0.5 mg Hydromorphone HCl (Dilaudid) 1 mg IVP Q3 PRN PRN Reason: Pain, severe (8-10) Last Admin: 04/18/17 07:38 Dose: 1 mg Piperacillin Sod/Tazobactam Sod (Zosyn 2.25 Gm Iv Premix) 2.25 gm in 50 mls @ 100 mls/hr IVPB Q8H [facility] Last Admin: 04/18/17 10:00 Dose: 50 mls Chromium/Copper/Manganese/Zinc 1 ml/ Heparin Sodium (Porcine ) 1,000 units/ Amino Acids/Electrolytes/Dextrose 1,002 mls @ 63 mls/hr IV .[id number] [facility] Stop: 04/18/17 17:59 Lorazepam (Ativan) 0.5 mg IVP Q3H PRN PRN Reason: Anxiety Last Admin: 01/08/18 03:30 Dose: 0.5 mg Ondansetron HCl (Zofran Inj) 4 mg IVP Q6H PRN PRN Reason: Nausea/Vomiting Last Admin: 04/11/17 21:39 Dose: 4 mg Pantoprazole Sodium (Protonix Inj) 40 mg IVP Q12 [facility] Last Admin: 04/18/17 09:52 Dose: Not Given Saccharomyces Boulardii (Florastor) 250 mg PO BID [facility] Last Admin: 04/18/17 09:51 Dose: Not Given Thiamine HCl (Vitamin B1 Tab) 100 mg PO DAILY [facility] Last Admin: 04/18/17 09:52 Dose: Not Given - Labs Labs: 04/18/17 06:44 04/18/17 06:44 PT 13.0 SECONDS (9.7-12.2) H 04/18/17 06:44 INR 1.2 04/18/17 06:44 APTT 30 SECONDS (21-34) 04/17/17 06:38 - Constitutional Appears: No Acute Distress, Chronically Ill - Head Exam Head Exam: ATRAUMATIC, NORMAL INSPECTION - Eye Exam Eye Exam: EOMI, Normal appearance - Neck Exam Neck Exam: Normal Inspection. absent: Tenderness - Respiratory Exam Respiratory Exam: Clear to Ausculation Bilateral, NORMAL BREATHING PATTERN - Cardiovascular Exam Cardiovascular Exam: REGULAR RHYTHM, +S1 - GI/Abdominal Exam GI & Abdominal Exam: Soft, Tenderness - Extremities Exam Extremities Exam: Normal Inspection. absent: Tenderness - Neurological Exam Neurological Exam: Altered, CN II-XII Intact - Skin Skin Exam: Dry, Warm Assessment and Plan (1) JIMBO (acute kidney injury) Status: Acute (2) Acute pancreatitis Status: Acute (3) SBO (small bowel obstruction) Status: Acute (4) Schizophrenia Status: Acute - Assessment and Plan (Free Text) Plan: Dialysis in AM then TTS TPN for now
--- NOTE | 2017-04-18 13:11 | PCM.SURG1 ---
Surgeon's Initial Post Op Note - Surgeon's Notes Surgeon: Dr. Mendez Paint Spraying Machine Operator Helper: Heriberto Saleem PGY2, PGY4 Type of Anesthesia: General Endo Pre-Operative Diagnosis: SMA syndrome Operative Findings: no evidence of SMA compressing duodenum. Post-Operative Diagnosis: Gastric dysmotility Operation Performed: Exp laparotomy, Asim en Y gastrojejunostomy, Asim en Y feeding jejunostomy tube with petrona ileostomy Specimen/Specimens Removed: None Estimated Blood Loss: EBL {In ML}: 50 Blood Products Given: N/A Drains Used: Hal Post-Op Condition: Fair Date of Surgery/Procedure: 04/18/17 Time of Surgery/Procedure: 13:14
[2017-04-18] MEDS: Albuterol-Ipratrop 3 mg / 0.5 (3 ml) UD INH SCH ×2 (13:30→21:08)
[2017-04-18] MEDS: Sodium Chloride 0.9% 1,000 ML IV SCH ×2 (13:44→22:46)
--- NOTE | 2017-04-18 14:03 | RAD ---
HISTORY: s/p surgery, pna re-evaluation COMPARISON: Chest x-ray performed 04/17/17 TECHNIQUE: Chest, one view. FINDINGS: The endotracheal tube terminates at the level the guy the should be withdrawn approximately 3 cm. Nasogastric tube extends expected location of the stomach. Examination limited by habitus. LUNGS: Hypoinflation. Moderate pulmonary venous congestion. No focal consolidation. Please note that chest x-ray has limited sensitivity for the detection of pulmonary masses. PLEURA: No significant pleural effusion identified. No definite pneumothorax . CARDIOVASCULAR: Heart size appears top normal. OSSEOUS STRUCTURES: No acute osseous abnormality identified. VISUALIZED UPPER ABDOMEN: Partially imaged abdominal surgical zoraida. OTHER FINDINGS: None. IMPRESSION: The endotracheal tube terminates at the level the guy the should be withdrawn approximately 3 cm. Nasogastric tube extends expected location of the stomach. Moderate pulmonary venous congestion. Hypoinflation. Line placement discussed with NILO Sheffield on 04/18/17 at 2:01 p.m.
[2017-04-18] MEDS: Midazolam 50 mg/10 ml 100 MG in Sodium Chloride 0.9% 80 ML IV SCH (14:25)
--- NOTE | 2017-04-18 14:33 | CP.CCUPN ---
CCU Subjective - Physician Review Subjective (Free Text): 04/15/17 15:[address] Nguyen Patient get PEJ tube by Dr. Meade today. Patient had repeat EGD today. No acute events overnight. Patient had 2 u PRBC with dialysis and 3rd finished after dialyis. 200cc from NGT over 24 hours. Dark Red. Patient's stool, no melena or hematochezia. Critical Care Time Spent (in minutes): 35 CCU Objective - Vital Signs / Intake & Output Vital Signs (Last 4 hours): Vital Signs Temp Pulse Resp BP Pulse Ox 04/18/17 13:45 136 H 18 131/92 H 100 04/18/17 13:30 133 H 12 125/87 100 04/18/17 13:15 124 H 12 121/82 100 04/18/17 13:00 98.3 F 140 H 12 117/81 100 Intake and Output (Last 8hrs): Intake & Output 04/17/17 04/18/17 04/18/17 22:59 06:59 14:59 Intake Total 494 554 289 Output Total 30 Balance 494 554 259 Intake: Intake, IV Amount 494 554 289 Left Wrist 50 50 100 Right Femoral 444 504 189 Output: Urine 30 Urethral (Tovar) 30 Other: # Bowel Movements 1 0 - Physical Exam Head: Positive for: Atraumatic, Normocephalic. Negative for: Tenderness Pupils: Positive for: PERRL Extroacular Muscles: Positive for: EOMI Mouth: Positive for: Moist Mucous Membranes. Negative for: Dry, Drooling Nose (External): Positive for: Other (NGT in place) Nose (Internal): Positive for: Normal Inspection, Moist Neck: Positive for: Normal Range of Motion. Negative for: JVD, Lymphadenopathy Respiratory/Chest: Positive for: Clear to Auscultation. Negative for: Respiratory Distress, Accessory Muscle Use Cardiovascular: Positive for: Regular Rate and Rhythm, Normal S1, S2 Abdomen: Positive for: Tenderness (mild tenderness of palpation. patient continues to move her arms towards hands on palpation). Negative for: Distention, Guarding Upper Extremity: Positive for: Normal Inspection, Normal ROM, Capillary Refill < 2s. Negative for: Edema Lower Extremity: Positive for: Normal Inspection. Negative for: Edema Neurological: Positive for: CN II-XII Intact Skin: Positive for: Warm, Pale Psychiatric: Positive for: Alert - Medications Active Medications: Active Medications Generic Name Dose Route Start Last Admin Trade Name Freq PRN Reason Stop Dose Admin Acetaminophen 325 mg 03/29/17 07:57 04/13/17 04:38 Tylenol 325 Mg Supp LA 325 mg Q4 PRN Administration Fever >100.4 F Albuterol/Ipratropium 3 ml 04/18/17 14:00 Duoneb 3 Mg/0.5 Mg (3 Ml) Ud INH RQ6 [facility] Ascorbic Acid 500 mg 04/08/17 12:30 04/18/17 09:52 Vitamin C 500 Mg Tab PO Not Given DAILY [facility] Haloperidol Lactate 1 mg 03/29/17 18:47 04/17/17 00:00 Haldol IVP 1 mg BID PRN Administration Agitation Hydromorphone HCl 0.5 mg 04/17/17 07:16 04/17/17 20:17 Dilaudid IVP 0.5 mg Q3 PRN Administration Pain, moderate (4-7) Hydromorphone HCl 1 mg 04/17/17 07:16 04/18/17 07:38 Dilaudid IVP 1 mg Q3 PRN Administration Pain, severe (8-10) Piperacillin Sod/Tazobactam Sod 2.25 gm in 50 mls @ 100 mls/hr 04/12/17 18:00 04/18/17 10:00 Zosyn 2.25 Gm Iv Premix IVPB 50 mls Q8H AGUSTIN Administration Chromium/Copper/Manganese/Zinc 1,002 mls @ 63 mls/hr 04/18/17 09:55 04/18/17 13:47 1 ml/ Heparin Sodium (Porcine IV 04/18/17 17:59 Not Given ) 1,000 units/ Amino Acids/ .[id number] [facility] Electrolytes/Dextrose Cefazolin Sodium/Dextrose 1 gm in 50 mls @ 100 mls/hr 04/18/17 18:00 Ancef Iv 1 Gm Duplex IVPB 04/19/17 02:29 Q8H AGUSTIN Sodium Chloride 1,000 mls @ 100 mls/hr 04/18/17 13:45 04/18/17 13:44 Sodium Chloride 0.9% IV 100 mls/hr .Q10H AGUSTIN Administration Midazolam HCl 100 mg/ Sodium 100 mls @ 1.35 mls/hr 04/18/17 14:00 Chloride IV .Q24H [facility] Protocol 0.02 MG/KG/HR Lorazepam 0.5 mg 04/01/17 16:08 04/18/17 03:30 Ativan IVP 0.5 mg Q3H PRN Administration Anxiety Ondansetron HCl 4 mg 03/27/17 23:45 04/11/17 21:39 Zofran Inj IVP 4 mg Q6H PRN Administration Nausea/Vomiting Pantoprazole Sodium 40 mg 04/17/17 10:00 04/18/17 09:52 Protonix Inj IVP Not Given Q12 [facility] Saccharomyces Boulardii 250 mg 04/08/17 18:00 04/18/17 09:51 Florastor PO Not Given BID [facility] Thiamine HCl 100 mg 04/08/17 12:30 04/18/17 09:52 Vitamin B1 Tab PO Not Given DAILY [facility] - Patient Studies Lab Studies: Microbiology Studies 04/12/17 08:00 Stool Culture - Final Stool NO SALMONELLA, SHIGELLA OR CAMPYLOBACTER ISOLATED. Lab Studies 04/18/17 04/18/17 04/18/17 Range/Units 09:10 06:44 06:44 WBC (4.8-10.8) K/uL RBC (3.80-5.20) Mil/uL Hgb (11.0-16.0) g/dL Hct (34.0-47.0) % MCV (81.0-99.0) fL MCH (27.0-31.0) pg MCHC (33.0-37.0) g/dL RDW (11.5-14.5) % Plt Count (130-400) K/uL MPV (7.2-11.7) fL Neut % (Auto) (50.0-75.0) % Lymph % (Auto) (20.0-40.0) % Lipscomb % (Auto) (0.0-10.0) % Eos % (Auto) (0.0-4.0) % Baso % (Auto) (0.0-2.0) % Neut # (1.8-7.0) K/uL Lymph # (1.0-4.3) K/uL Lipscomb # (0.0-0.8) K/uL Eos # (0.0-0.7) K/uL Baso # (0.0-0.2) K/uL Neutrophils % (Manual) (50-75) % Band Neutrophils % (0-2) % Lymphocytes % (Manual) (20-40) % Monocytes % (Manual) (0-10) % Platelet Estimate (NORMAL) Polychromasia Hypochromasia (manual) Anisocytosis (manual) PT 13.0 H (9.7-12.2) SECONDS INR 1.2 Sodium 134 (132-148) mmol/L Potassium 3.6 (3.6-5.2) mmol/L Chloride 98 (98-107) mmol/L Carbon Dioxide 30 (22-30) mmol/L Anion Gap 10 (10-20) BUN 29 H (7-17) mg/dL Creatinine 3.7 H (0.7-1.2) mg/dL Est GFR ( Amer) 17 Est GFR (Non-Af Amer) 14 POC Glucose (mg/dL) (65-110) mg/dL Random Glucose 139 H (65-105) mg/dL Calcium 7.9 L (8.6-10.4) mg/dl Phosphorus 3.6 (2.5-4.5) mg/dL Magnesium 1.8 (1.6-2.3) mg/dL Total Bilirubin 0.8 (0.2-1.3) mg/dL AST 20 (14-36) U/L ALT 21 (9-52) U/L Alkaline Phosphatase 87 (38-126) U/L Total Protein 5.7 L (6.3-8.3) g/dL Albumin 2.8 L (3.5-5.0) g/dL Globulin 2.9 (2.2-3.9) gm/dL Albumin/Globulin Ratio 1.0 (1.0-2.1) Beta HCG, Quant < 2.39 mIU/ML Blood Type Antibody Screen 04/18/17 04/18/17 04/18/17 Range/Units 06:44 05:56 00:09 WBC 18.1 H (4.8-10.8) K/uL RBC 3.13 L (3.80-5.20) Mil/uL Hgb 9.0 L (11.0-16.0) g/dL Hct 26.7 L (34.0-47.0) % MCV 85.4 (81.0-99.0) fL MCH 28.8 (27.0-31.0) pg MCHC 33.7 (33.0-37.0) g/dL RDW 15.2 H (11.5-14.5) % Plt Count 350 (130-400) K/uL MPV 7.8 (7.2-11.7) fL Neut % (Auto) 81.4 H (50.0-75.0) % Lymph % (Auto) 4.4 L (20.0-40.0) % Lipscomb % (Auto) 12.4 H (0.0-10.0) % Eos % (Auto) 1.5 (0.0-4.0) % Baso % (Auto) 0.3 (0.0-2.0) % Neut # 14.7 H (1.8-7.0) K/uL Lymph # 0.8 L (1.0-4.3) K/uL Lipscomb # 2.2 H (0.0-0.8) K/uL Eos # 0.3 (0.0-0.7) K/uL Baso # 0.0 (0.0-0.2) K/uL Neutrophils % (Manual) 87 H (50-75) % Band Neutrophils % 1 (0-2) % Lymphocytes % (Manual) 2 L (20-40) % Monocytes % (Manual) 10 (0-10) % Platelet Estimate Normal (NORMAL) Polychromasia Slight Hypochromasia (manual) Slight Anisocytosis (manual) Slight PT (9.7-12.2) SECONDS INR Sodium (132-148) mmol/L Potassium (3.6-5.2) mmol/L Chloride (98-107) mmol/L Carbon Dioxide (22-30) mmol/L Anion Gap (10-20) BUN (7-17) mg/dL Creatinine (0.7-1.2) mg/dL Est GFR ( Amer) Est GFR (Non-Af Amer) POC Glucose (mg/dL) 137 H 122 H (65-110) mg/dL Random Glucose (65-105) mg/dL Calcium (8.6-10.4) mg/dl Phosphorus (2.5-4.5) mg/dL Magnesium (1.6-2.3) mg/dL Total Bilirubin (0.2-1.3) mg/dL AST (14-36) U/L ALT (9-52) U/L Alkaline Phosphatase (38-126) U/L Total Protein (6.3-8.3) g/dL Albumin (3.5-5.0) g/dL Globulin (2.2-3.9) gm/dL Albumin/Globulin Ratio (1.0-2.1) Beta HCG, Quant mIU/ML Blood Type Antibody Screen 04/17/17 04/17/17 Range/Units 17:56 16:11 WBC (4.8-10.8) K/uL RBC (3.80-5.20) Mil/uL Hgb (11.0-16.0) g/dL Hct (34.0-47.0) % MCV (81.0-99.0) fL MCH (27.0-31.0) pg MCHC (33.0-37.0) g/dL RDW (11.5-14.5) % Plt Count (130-400) K/uL MPV (7.2-11.7) fL Neut % (Auto) (50.0-75.0) % Lymph % (Auto) (20.0-40.0) % Lipscomb % (Auto) (0.0-10.0) % Eos % (Auto) (0.0-4.0) % Baso % (Auto) (0.0-2.0) % Neut # (1.8-7.0) K/uL Lymph # (1.0-4.3) K/uL Lipscomb # (0.0-0.8) K/uL Eos # (0.0-0.7) K/uL Baso # (0.0-0.2) K/uL Neutrophils % (Manual) (50-75) % Band Neutrophils % (0-2) % Lymphocytes % (Manual) (20-40) % Monocytes % (Manual) (0-10) % Platelet Estimate (NORMAL) Polychromasia Hypochromasia (manual) Anisocytosis (manual) PT (9.7-12.2) SECONDS INR Sodium (132-148) mmol/L Potassium (3.6-5.2) mmol/L Chloride (98-107) mmol/L Carbon Dioxide (22-30) mmol/L Anion Gap (10-20) BUN (7-17) mg/dL Creatinine (0.7-1.2) mg/dL Est GFR ( Amer) Est GFR (Non-Af Amer) POC Glucose (mg/dL) 141 H (65-110) mg/dL Random Glucose (65-105) mg/dL Calcium (8.6-10.4) mg/dl Phosphorus (2.5-4.5) mg/dL Magnesium (1.6-2.3) mg/dL Total Bilirubin (0.2-1.3) mg/dL AST (14-36) U/L ALT (9-52) U/L Alkaline Phosphatase (38-126) U/L Total Protein (6.3-8.3) g/dL Albumin (3.5-5.0) g/dL Globulin (2.2-3.9) gm/dL Albumin/Globulin Ratio (1.0-2.1) Beta HCG, Quant mIU/ML Blood Type O POSITIVE Antibody Screen Negative Laboratory Results - last 24 hr 04/17/17 04/17/17 04/18/17 16:11 17:56 00:09 WBC RBC Hgb Hct MCV MCH MCHC RDW Plt Count MPV Neut % (Auto) Lymph % (Auto) Lipscomb % (Auto) Eos % (Auto) Baso % (Auto) Neut # Lymph # Lipscomb # Eos # Baso # Neutrophils % (Manual) Band Neutrophils % Lymphocytes % (Manual) Monocytes % (Manual) Platelet Estimate Polychromasia Hypochromasia (manual) Anisocytosis (manual) PT INR Sodium Potassium Chloride Carbon Dioxide Anion Gap BUN Creatinine Est GFR ( Amer) Est GFR (Non-Af Amer) POC Glucose (mg/dL) 141 H 122 H Random Glucose Calcium Phosphorus Magnesium Total Bilirubin AST ALT Alkaline Phosphatase Total Protein Albumin Globulin Albumin/Globulin Ratio Beta HCG, Quant Blood Type O POSITIVE Antibody Screen Negative 04/18/17 04/18/17 04/18/17 05:56 06:44 06:44 WBC 18.1 H RBC 3.13 L Hgb 9.0 L Hct 26.7 L MCV 85.4 MCH 28.8 MCHC 33.7 RDW 15.2 H Plt Count 350 MPV 7.8 Neut % (Auto) 81.4 H Lymph % (Auto) 4.4 L Lipscomb % (Auto) 12.4 H Eos % (Auto) 1.5 Baso % (Auto) 0.3 Neut # 14.7 H Lymph # 0.8 L Lipscomb # 2.2 H Eos # 0.3 Baso # 0.0 Neutrophils % (Manual) 87 H Band Neutrophils % 1 Lymphocytes % (Manual) 2 L Monocytes % (Manual) 10 Platelet Estimate Normal Polychromasia Slight Hypochromasia (manual) Slight Anisocytosis (manual) Slight PT 13.0 H INR 1.2 Sodium Potassium Chloride Carbon Dioxide Anion Gap BUN Creatinine Est GFR ( Amer) Est GFR (Non-Af Amer) POC Glucose (mg/dL) 137 H Random Glucose Calcium Phosphorus Magnesium Total Bilirubin AST ALT Alkaline Phosphatase Total Protein Albumin Globulin Albumin/Globulin Ratio Beta HCG, Quant Blood Type Antibody Screen 04/18/17 04/18/17 06:44 09:10 WBC RBC Hgb Hct MCV MCH MCHC RDW Plt Count MPV Neut % (Auto) Lymph % (Auto) Lipscomb % (Auto) Eos % (Auto) Baso % (Auto) Neut # Lymph # Lipscomb # Eos # Baso # Neutrophils % (Manual) Band Neutrophils % Lymphocytes % (Manual) Monocytes % (Manual) Platelet Estimate Polychromasia Hypochromasia (manual) Anisocytosis (manual) PT INR Sodium 134 Potassium 3.6 Chloride 98 Carbon Dioxide 30 Anion Gap 10 BUN 29 H Creatinine 3.7 H Est GFR ( Amer) 17 Est GFR (Non-Af Amer) 14 POC Glucose (mg/dL) Random Glucose 139 H Calcium 7.9 L Phosphorus 3.6 Magnesium 1.8 Total Bilirubin 0.8 AST 20 ALT 21 Alkaline Phosphatase 87 Total Protein 5.7 L Albumin 2.8 L Globulin 2.9 Albumin/Globulin Ratio 1.0 Beta HCG, Quant < 2.39 Blood Type Antibody Screen Fingerstick Blood Sugar Results: 137 Critical Care Progress Note - Nutrition Nutrition: Nutrition Category Date Time Status NPO Diet [DIET] Diets 04/08/17 Dinner Active Assessment/Plan - Assessment and Plan (Free Text) Assessment: 36F admitted with diarrhea,tachycardia,elevated WBC count ,lipase and lactic acid, 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 s/p boby en Y gastrojejunostomy with Tricia Ileostomy placement. POD #0 (04/18/17) Neuro: hx of Schizophrenia, patient has mental retardation and can speak some words based on observation Altered mental status 04/07 Dr. Bedoya consulted Psych Consult: Dr. Mccloud Pain: 0.5 mg IVP Q4H PRN Sedation: Versed Drip 1mg Haldol IVP Q12H PRN 0.5mg Ativan Q3H PRN Nausea: Zofran 4mg IVP q6h PRN Reglan 10 mg IVP q4h PRN Psych: Psych Consult Dr. Mccloud: f/u 03/30 EKG to evaluate QTc Quetiapine (Seroquel) 200mg POBID, held d/t NGT on IWS, held awaiting Dr. Mccloud Recommendations Escitalopram (Lexapro) 10mg PO QD, held d/t NGT on IWS, held awaiting Dr. Mccloud Recommendations Cardio: Tachycardia 03/27 EKG Sinus tachycardia 138 bpm 03/30 EKG QTc 434, Sinus tachycardia at 153 bpm Diltiazem 125mg Q24hr @ 5mg/hr 04/08 Pulm: Aspiration pneumonia s/p EGD with intubation then extubation 03/27 AB.22, lactate 9.7 04/08 AB.50, CO2 24, O2 148, HCO3 22.9, lactate 1.0 03/27 CXR in infiltrates, no active pulmonary disease 03/30 CXR: poor inspiratory effort, areas suggestive of aspiration pneumonia 04/02: CT abdomen/pelvis/chest: pleural effusions, bilateral perihilar consolidations possibly due to multifocal pneumonia vs. atelectasis 04/04: CXR: Left lower lobe atelectasis/pneumonia and small left pleural effusion. Stable position of nasogastric tube and Dialysis catheter with one port Duoneb 04/17 CXR: mild vascular congestion 04/18 CXR: vascular congestion Endo: 03/28 Hemoglobin A1c 5.3 GI: Currently on PPN 03/28 Lipase 8456 03/29 Lipase 322 03/30 Lipase 64 03/30 GOBT positive 03/31 Pathology for Antrum biopsy from 03/29 EGD current biopsy negative for H pylori 04/01 f/u Dr. Harmon for repeat EGD., NGT 800 03/27 21:42 CT abdomen/pelvis with IV contrast: gastric distention 32cm and distention of the first and third and second portion of duodenum. Transition and complete decompression of third portion of duodenum. pancreas unremarkable, spleen unremarkable, partially contracted gallbladder. duodenal obstruction v delayed emptying v gastroparesis. Fluid distention of distal esophagus 3.3cm representing gastric emptying v gastroesophageal reflux. 03/27 CT abdomen/pelvis with IV contrast: significantly dilated stomach with retained food and fluid. significantly diminished prior to earlier CT 03/28. No free intraperitoneal gas identified. contrast noted in Gallbladder. 03/28 CT Chest/Abdomen/Pelvis: Left greater than right pleural effusion, bilateral perihilar consolidation. right more than left upper lobes and left more than right lower lobes. lingular consolidation representing multifocal pneumonia v. atelectasis versus mucous lugging and/or aspiration. interval worsening compared to prior exam 04/02 CT chest/abdomen/pelvis shows gastric distention 27cm, possible gastric pneumatosis, NGT at fundus with contrast fluid and gas level peripancreatic infiltration. gastric distension measuring 27 cm with possible gastric pneumatosis. intraperitoneal pelvic fluid with prominent surrounding peritoneal lining. Loculated ascites with peritoneal enhancement above spleen in retrogastric region. Lipase 320. 04/08 CT Chest/Abdomen/Pelvis: resolving acute pancreatitis, no residual peripancreatic fluid. 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 Distention of stomach due to gastric ileus. Ascites and loculated fluid posterior to the gastric fundus and cephalad to the spleen. Focal enteritis of proximal jejunum with mural thickening. Small left pleural effusion with left lower lobe compressive atelectasis. 04/14/17 CT Angio Abdomen/Pelvis:gastric distentions 27cm. gastric pneumatosis on image 66 through 73 series 6. NGT in fundus of stomach with contrast fluid and gas level. peripancreatic infiltration. left more than right large pleural effusions. bilateral perihilar consolidation. right more than left upper lobes and left more than right lower lobes lingular consolidation. Significant interval worsening when compared to prior examination 03/28/17. moderate intraperitoneal pelvic fluid with prominent surrounding peritoneal lining. Loculated peritoneal abscess secondary to contained gastric perforation 03/[address] connected to suction. 03/28 NGT OP since insertion: 2600cc 03/29 2350 03/30 NGT 1160 03/31 NGT 630 04/01 NGT 800 04/02 NGT 100 04/04 550, NGT removed by patient, Flexiseal removed by patient f/u Strict I/Os 04/10 NGT 3300 04/11 NGT 1200 04/12 NGT 700, with about 100cc of bright red sanguinous blood, with bilious component. 04/12 NGT off suction, clamped, patient continues to have red output to gravity. General Surgery Consult: Dr. Woodruff 03/[address] Harmon to have EGD today. 03/[address] Harmon, place patient on Reglan to help with motility. 03/30 Abdominal xray/obstructive series: minimal distention of stomach compared to previous imaging studies 03/31 Pathology for Antrum biopsy from 03/29 EGD current biopsy negative for H pylori 04/01 f/u Dr. Harmon for repeat EGD. 04/13 Dr. Lau repeat EGD: diffuse ulceration, large fibrous clot, repeat EGD scheduled 04/14 for re-evaluation, CT Angio ordered to evaluate for ischemia 04/13 NGT 280 cc 04/14 NGT 140cc over 24 hours 04/14 repeat EGD cancelled. continued supportive care by GI today 04/14 NGT 200cc 04/15 repeat EGD and PEJ tube insertion. Zofran 4mg IVP q6h PRN Reglan 10 mg IVP q4h PRN Renal: 03/27 UA: proteinuria urine output since insertion 360 average hourly output 60cc/hr f/u Strict I/Os 03/31 Potassium Phosphorus 15mmole @63cc/hr 24Hr UOP 110, 20-30cc/hr : 03/27 UA: hazy, specific gravity >1.060, 3+ urine protein, Urine bacteria, Urine Yeast Ceftriaxone 1gm IVPB QD, discontinued 03/30 Urine Cx negative 04/08 UA: Ariadne, UA pH 5.0, trace ketones, 1+ leukocyte esterase, specific gravity 1.030 04/08 urine random total protein 41.0 Urine random chloride 17 Urine random sodium 7 Heme: GI bleed H/H: 03/27 14.6/44.7 03/28 12.9/38.5 03/28 FOBT positive 03/29 11.2/33.0 03/30 GOBT positive 03/30 9.5/27.7 03/31 9.4/27.5 04/01 8.9/25.8 04/02 9.1/26.7 04/04 9.9/28.8 04/05 9.4/28.4 04/09/1704/10 9.6/29.9 04/11 7.8/22.6 04/12 7.0/20.4 04/13 4.1/11.1 04/14 6.8/19.9 04/15 10.2 04/16 10.8 04/17 10.5 04/16 9.1 04/15 9.0 MSK: Patient can walk per sister, but is dizzy so hasn't walked PT/OT eval and treat when stable ID: Sepsis Code sepsis 03/28 02:20, 03/28 lactate 9.7, 03/28 lactate 01:05 9.2, 03/28 lactate 06:15 1.3 Lactate is downtrending, normal Leukocytosis, downtrending WBC 04/14 13.9 04/15 15.8 04/16 13.7 04/17 13.3 04/18 18.1 Code sepsis 03/28 02:20 03/30 blood Culture x 2, negative 03/30 MRSA screen negative 03/30 Urine Cx negative 04/02 Blood culture x2 negative 03/29 Neutrophils 75, Bands 9 03/30 Neutrophils 83, Bands 1 04/02 Neutrophils 83 04/04 Neutrophils 73.8 04/05 Neutrophils 74.4 Code sepsis called again today 04/08. Patient was febrile (102 rectally and tachycardic ~140s) BP was 100/70. Tovar inserted to monitor urine output (nurse to clean TID with betadine) WBC 36.1 elevating from 20s. 4 bands, platelets 707 Prophylaxis: GI: Protonix Q12H Zofran 4mg IVP Q6H PRN Nausea Tylenol 325mg LA Q4H PRN Fluids: LR @100cc/hr Diet: NPO 04/04 NGT removed by patient, Flexiseal removed by patient, Left PICC removed by patient. 04/05 Patient downgraded to Regular Bed 04/11 Patient has a femoral dialysis catheter 04/12 GI consulted for GI bleed, repeat EGD 04/13 patient to have dialysis today with 2 u PRBC transfusion. CTA of abdomen and pelvis today d/t possible ischemic changes due to diffuse ulcerations seen on EGD 04/14 Patient had 3 uPRBC yesterday (1 u after dialysis) Patient's hgb is 6.8 today. Will transfuse 1 u PRBC during extra dialysis session today. repeat EGD today 04/15 04/16 04/17 Patient underwent dialysis 04/18 Boby en Y ex lap and Tricia ileostomy placement. discussed with Dr. Patrick Smith DO PGY1 - Date & Time Date: 04/18/17 Time: 14:39
[2017-04-18 14:41] LABS: ARTERIAL BLOOD GAS HCO3 23.7 mmol/L (21-28); ARTERIAL BLOOD GAS HEMOGLOBIN 12.3 g/dL (11.7-17.4); ARTERIAL BLOOD GAS O2 SAT 99.1 % (95-98); ARTERIAL BLOOD GAS PCO2 44 mm/Hg (35-45); ARTERIAL BLOOD GAS PH 7.35 (7.35-7.45); ARTERIAL BLOOD GAS PO2 501 mm/Hg (80-100); ARTERIAL BLOOD GAS TCO2 25.7 mmol/L (22-28)
[2017-04-18 16:27] LABS: BASO # 0.1 K/uL (0.0-0.2); BASO % 0.3 % (0.0-2.0); EOS # 0.2 K/uL (0.0-0.7); EOS % 0.8 % (0.0-4.0); LYMPH # 1.1 K/uL (1.0-4.3); LYMPH % 4.5 % (20.0-40.0); MEAN CELL VOLUME 85.5 fL (81.0-99.0); MEAN CORPUSCULAR HEMOGLOBIN 28.1 pg (27.0-31.0); MEAN CORPUSCULAR HGB CONC 32.9 g/dL (33.0-37.0); MEAN PLATELET VOLUME 7.7 fL (7.2-11.7); MONO # 2.3 K/uL (0.0-0.8); MONO % 9.4 % (0.0-10.0); NEUT # 20.8 K/uL (1.8-7.0); PLATELET COUNT 373 K/uL (130-400); RBC 3.55 Mil/uL (3.80-5.20); RED CELL DISTRIBUTION WIDTH 15.5 % (11.5-14.5); WHITE BLOOD COUNT 24.5 K/uL (4.8-10.8)
[2017-04-18 16:46] LABS: ALBUMIN 2.6 g/dL (3.5-5.0); CALCIUM 7.4 mg/dl (8.6-10.4)
[2017-04-18 17:10] LABS: ANISOCYTOSIS SLIGHT; BANDS 2 % (0-2); EOSINOPHIL 2 % (0-4); HYPOCHROMIC SLIGHT; LYMPHOCYTE 6 % (20-40); MONOCYTE 6 % (0-10); NEUTROPHIL 84 % (50-75); PLATELET ESTIMATE NORMAL (NORMAL); POLYCHROMIC SLIGHT; TOTAL CELLS COUNTED 100
[2017-04-18] MEDS: ceFAZolin IV 1 gm in Dextrose 1 GM/50 ML BAG IVPB SCH (17:32)
--- NOTE | 2017-04-18 23:14 | OP ---
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 PROCEDURE: 1. Exploratory laparotomy, Asim-en-Y gastrojejunostomy. 2. Exploration of superior mesenteric artery. 3. Asim-en-Y feeding jejunostomy. SURGEON: El Mendez Jr., MD. FINANCIAL EXAMINER: Dr. Heriberto Saleem and Dr. Seay. ANESTHESIA ADMINISTERED BY: Dr. Randhawa. INDICATION: The patient is a young woman, profoundly retarded, who is unable to speak, who is admitted to the hospital initially with massive distention of the stomach. She has been decompressed with multiple endoscopies. The major problem that we faced is recent studies suggested that the patient had narrowing or compression of the third portion of the duodenum by the superior mesenteric artery. This was reviewed with a number of studies, etc. Because of this and her failure to improve, the patient was recommended to undergo surgery. OPERATIVE FINDINGS: 1. The stomach was decompressed to one-third of the size of what has been previously. 2. There were adhesions on the left along the greater curvature as if the patient previously had a gastrostomy, but there is no history of scar externally of the same. 3. Rest of the intraoperative findings are unremarkable in terms of pelvic viscera, uterus, tubes, ovaries, etc. There was no other abnormality detected on our exam. 4. The superior mesenteric artery was exposed and explored and I was easily able to place my finger below the superior mesenteric artery without any evident compression of the duodenum at this point. However, faced with the possibility because it is rarity that there still could be compression and given her history, we carried out a gastrojejunostomy Asim-en-Y type. We were unable to place the gastrostomy tube because the stomach had shrunk so much that it was now underneath the rib cage and we were unable to place the gastrostomy tube successfully. However, we were able to consider placing it superiorly without dragging the stomach and placing it under tension. After this, we then carried out a Asim-en-Y jejunostomy distally. This went quite well. The blood loss during the procedure was less than 200 mL total. The patient tolerated the procedure well. The abdomen was closed with running sutures of Novafil and PDS and skin was closed with skin clips after appropriate irrigation. The operation carried out are exploratory laparotomy, functional Asim-en-Y gastrojejunostomy, antecolic anterior, exploration of superior mesenteric artery and thirdly it was feeding Asim-en-Y jejunostomy. El Mendez Jr., MD cc: Dov Meade MD .
[2017-04-19] MEDS: ceFAZolin IV 1 gm in Dextrose 1 GM/50 ML BAG IVPB SCH (01:04)
[2017-04-19] MEDS: Piperacill/Tazo 2.25gm in Dex 2.25 GM/50 ML BAG IVPB SCH ×3 (01:07→18:04)
[2017-04-19] MEDS: Albuterol-Ipratrop 3 mg / 0.5 (3 ml) UD INH SCH ×4 (01:26→19:31)
[2017-04-19 05:36] LABS: ABG ALLEN TEST POS; ARTERIAL BLOOD GAS HCO3 25.9 mmol/L (21-28); ARTERIAL BLOOD GAS HEMOGLOBIN 8.7 g/dL (11.7-17.4); ARTERIAL BLOOD GAS O2 SAT 99.2 % (95-98); ARTERIAL BLOOD GAS PCO2 31 mm/Hg (35-45); ARTERIAL BLOOD GAS PO2 186 mm/Hg (80-100); ARTERIAL BLOOD GAS TCO2 25.2 mmol/L (22-28)
[2017-04-19 06:18] LABS: BASO # 0.1 K/uL (0.0-0.2); BASO % 0.3 % (0.0-2.0); EOS # 0.4 K/uL (0.0-0.7); EOS % 2.1 % (0.0-4.0); HEMOGLOBIN 8.9 g/dL (11.0-16.0); LYMPH # 1.5 K/uL (1.0-4.3); LYMPH % 8.5 % (20.0-40.0); MEAN CELL VOLUME 85.7 fL (81.0-99.0); MEAN CORPUSCULAR HEMOGLOBIN 28.5 pg (27.0-31.0); MEAN CORPUSCULAR HGB CONC 33.2 g/dL (33.0-37.0); MEAN PLATELET VOLUME 8.3 fL (7.2-11.7); MONO # 2.2 K/uL (0.0-0.8); MONO % 12.6 % (0.0-10.0); NEUT # 13.2 K/uL (1.8-7.0); NEUT % 76.5 % (50.0-75.0); PLATELET COUNT 349 K/uL (130-400); RBC 3.14 Mil/uL (3.80-5.20); RED CELL DISTRIBUTION WIDTH 15.5 % (11.5-14.5); WHITE BLOOD COUNT 17.3 K/uL (4.8-10.8)
[2017-04-19 06:41] LABS: ALBUMIN 2.4 g/dL (3.5-5.0); CALCIUM 7.1 mg/dl (8.6-10.4)
--- NOTE | 2017-04-19 07:31 | CP.CCUPN ---
<Pari Smith - Last Filed: 04/19/17 13:19> CCU Subjective - Physician Review Subjective (Free Text): Progress note for Dr. Hernandez Patient seen and examined at bedside. 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 Patient tolerated procedure well. LLQ drain 105 cc since insertion RLQ ileostomy bag 320 cc since insertion Critical Care Time Spent (in minutes): 35 CCU Objective - Vital Signs / Intake & Output Vital Signs (Last 4 hours): Vital Signs Pulse Resp BP Pulse Ox 04/19/17 07:19 120 H 18 118/84 100 04/19/17 07:00 123 H 18 100 04/19/17 06:49 124 H 18 112/80 100 04/19/17 06:21 125 H 18 109/79 100 04/19/17 06:00 127 H 18 100 04/19/17 05:20 144 H 19 105/85 97 04/19/17 05:00 127 H 18 100 04/19/17 04:49 127 H 18 107/75 100 04/19/17 04:20 130 H 18 107/76 100 04/19/17 04:00 130 H 18 100 04/19/17 03:50 137 H 19 114/80 100 Intake and Output (Last 8hrs): Intake & Output 04/18/17 04/19/17 04/19/17 22:59 06:59 14:59 Intake Total 1070.6 1103.4 105.4 Output Total 265 635 Balance 805.6 468.4 105.4 Intake: IV 141 91 Intake, IV Amount 929.6 1012.4 105.4 Left Wrist 800 800 100 Right Femoral 48.3 43.2 5.4 Rt Femoral 81.3 169.2 0 Output: Gastric Amount 10 Right Nares 10 Drainage 100 325 Left Lower Abdomen 105 Right Lower Abdomen 100 220 Urine 165 300 Urethral (Tovar) 165 300 Other: # Bowel Movements 0 - Physical Exam Head: Positive for: Atraumatic, Normocephalic. Negative for: Tenderness Pupils: Positive for: PERRL Extroacular Muscles: Positive for: EOMI Mouth: Positive for: Moist Mucous Membranes. Negative for: Dry, Drooling Nose (External): Positive for: Other (NGT in place) Nose (Internal): Positive for: Normal Inspection, Moist Neck: Positive for: Normal Range of Motion. Negative for: JVD, Lymphadenopathy Respiratory/Chest: Positive for: Clear to Auscultation. Negative for: Respiratory Distress, Accessory Muscle Use Cardiovascular: Positive for: Regular Rate and Rhythm, Normal S1, S2 Abdomen: Positive for: Tenderness (mild tenderness of palpation. patient continues to move her arms towards hands on palpation). Negative for: Distention, Guarding Upper Extremity: Positive for: Normal Inspection, Normal ROM, Capillary Refill < 2s. Negative for: Edema Lower Extremity: Positive for: Normal Inspection. Negative for: Edema Neurological: Positive for: CN II-XII Intact Skin: Positive for: Warm, Pale Psychiatric: Positive for: Alert - Medications Active Medications: Active Medications Generic Name Dose Route Start Last Admin Trade Name Freq PRN Reason Stop Dose Admin Acetaminophen 325 mg 03/29/17 07:57 04/18/17 20:13 Tylenol 325 Mg Supp HI 325 mg Q4 PRN Administration Fever >100.4 F Albuterol/Ipratropium 3 ml 04/18/17 14:00 04/19/17 01:26 Duoneb 3 Mg/0.5 Mg (3 Ml) Ud INH Not Given RQ6 AGUSTIN Ascorbic Acid 500 mg 04/08/17 12:30 04/18/17 09:52 Vitamin C 500 Mg Tab PO Not Given DAILY AGUSTIN Famotidine 20 mg 04/18/17 22:00 04/18/17 21:41 Pepcid IVP 20 mg Q12 AGUSTIN Administration Haloperidol Lactate 1 mg 03/29/17 18:47 04/17/17 00:00 Haldol IVP 1 mg BID PRN Administration Agitation Hydromorphone HCl 0.5 mg 04/17/17 07:16 04/17/17 20:17 Dilaudid IVP 0.5 mg Q3 PRN Administration Pain, moderate (4-7) Hydromorphone HCl 1 mg 04/17/17 07:16 04/18/17 14:50 Dilaudid IVP 1 mg Q3 PRN Administration Pain, severe (8-10) Piperacillin Sod/Tazobactam Sod 2.25 gm in 50 mls @ 100 mls/hr 04/12/17 18:00 04/19/17 01:07 Zosyn 2.25 Gm Iv Premix IVPB 100 mls/hr Q8H AGUSTIN Administration Sodium Chloride 1,000 mls @ 100 mls/hr 04/18/17 13:45 04/18/17 22:46 Sodium Chloride 0.9% IV 100 mls/hr .Q10H AGUSTIN Administration Midazolam HCl 100 mg/ Sodium 100 mls @ 1.35 mls/hr 04/18/17 14:00 04/18/17 20 :43 Chloride IV 0.08 mg/kg/hr .Q24H AGUSTIN 5.42 mls/hr Protocol Titration 0.02 MG/KG/HR Fentanyl Citrate 2,500 mcg/ 250 mls @ 13.56 mls/hr 04/18/17 19:45 04/19/17 01 :06 Sodium Chloride IV 3 mcg/kg/hr .[id number] AGUSTIN 20.34 mls/hr Protocol Titration 2 MCG/KG/HR Lorazepam 0.5 mg 04/01/17 16:08 04/18/17 03:30 Ativan IVP 0.5 mg Q3H PRN Administration Anxiety Ondansetron HCl 4 mg 03/27/17 23:45 04/11/17 21:39 Zofran Inj IVP 4 mg Q6H PRN Administration Nausea/Vomiting Saccharomyces Boulardii 250 mg 04/08/17 18:00 04/18/17 17:35 Florastor PO Not Given BID [facility] Thiamine HCl 100 mg 04/08/17 12:30 04/18/17 09:52 Vitamin B1 Tab PO Not Given DAILY [facility] - Patient Studies Lab Studies: Lab Studies 04/19/17 04/19/17 04/19/17 Range/Units 06:12 06:12 05:25 WBC 17.3 H (4.8-10.8) K/uL RBC 3.14 L (3.80-5.20) Mil/uL Hgb 8.9 L (11.0-16.0) g/dL Hct 26.9 L (34.0-47.0) % MCV 85.7 (81.0-99.0) fL MCH 28.5 (27.0-31.0) pg MCHC 33.2 (33.0-37.0) g/dL RDW 15.5 H (11.5-14.5) % Plt Count 349 (130-400) K/uL MPV 8.3 (7.2-11.7) fL Neut % (Auto) 76.5 H (50.0-75.0) % Lymph % (Auto) 8.5 L (20.0-40.0) % Johnston % (Auto) 12.6 H (0.0-10.0) % Eos % (Auto) 2.1 (0.0-4.0) % Baso % (Auto) 0.3 (0.0-2.0) % Neut # 13.2 H (1.8-7.0) K/uL Lymph # 1.5 (1.0-4.3) K/uL Johnston # 2.2 H (0.0-0.8) K/uL Eos # 0.4 (0.0-0.7) K/uL Baso # 0.1 (0.0-0.2) K/uL Neutrophils % (Manual) (50-75) % Band Neutrophils % (0-2) % Lymphocytes % (Manual) (20-40) % Monocytes % (Manual) (0-10) % Eosinophils % (Manual) (0-4) % Platelet Estimate (NORMAL) Polychromasia Hypochromasia (manual) Anisocytosis (manual) Puncture Site pCO2 (35-45) mm/Hg pO2 (80-100) mm/Hg HCO3 (21-28) mmol/L ABG pH (7.35-7.45) ABG Total CO2 (22-28) mmol/L ABG O2 Saturation (95-98) % ABG Base Excess (-2.0-3.0) mmol/L ABG Hemoglobin (11.7-17.4) g/dL ABG Carboxyhemoglobin (0.5-1.5) % POC ABG HHb (Measured) (0.0-5.0) % ABG Methemoglobin (0.0-3.0) % Daniel Test A-a O2 Difference mm/Hg Respiratory Index Hgb O2 Saturation (95.0-98.0) % Vent Mode Mechanical Rate FiO2 % Tidal Volume PEEP Crit Value Called To Crit Value Called By Crit Value Read Back Blood Gas Notified Time Sodium 134 (132-148) mmol/L Potassium 3.8 (3.6-5.2) mmol/L Chloride 103 (98-107) mmol/L Carbon Dioxide 22 (22-30) mmol/L Anion Gap 12 (10-20) BUN 35 H (7-17) mg/dL Creatinine 4.1 H (0.7-1.2) mg/dL Est GFR ( Amer) 15 Est GFR (Non-Af Amer) 12 POC Glucose (mg/dL) 90 (65-110) mg/dL Random Glucose 85 (65-105) mg/dL Calcium 7.1 L (8.6-10.4) mg/dl Phosphorus 3.4 (2.5-4.5) mg/dL Magnesium 1.6 (1.6-2.3) mg/dL Total Bilirubin 1.2 (0.2-1.3) mg/dL AST 38 H (14-36) U/L ALT 24 (9-52) U/L Alkaline Phosphatase 66 (38-126) U/L Total Protein 4.8 L (6.3-8.3) g/dL Albumin 2.4 L (3.5-5.0) g/dL Globulin 2.4 (2.2-3.9) gm/dL Albumin/Globulin Ratio 1.0 (1.0-2.1) Beta HCG, Quant mIU/ML 04/19/17 04/18/17 04/18/17 Range/Units 05:16 23:53 18:02 WBC (4.8-10.8) K/uL RBC (3.80-5.20) Mil/uL Hgb (11.0-16.0) g/dL Hct (34.0-47.0) % MCV (81.0-99.0) fL MCH (27.0-31.0) pg MCHC (33.0-37.0) g/dL RDW (11.5-14.5) % Plt Count (130-400) K/uL MPV (7.2-11.7) fL Neut % (Auto) (50.0-75.0) % Lymph % (Auto) (20.0-40.0) % Johnston % (Auto) (0.0-10.0) % Eos % (Auto) (0.0-4.0) % Baso % (Auto) (0.0-2.0) % Neut # (1.8-7.0) K/uL Lymph # (1.0-4.3) K/uL Johnston # (0.0-0.8) K/uL Eos # (0.0-0.7) K/uL Baso # (0.0-0.2) K/uL Neutrophils % (Manual) (50-75) % Band Neutrophils % (0-2) % Lymphocytes % (Manual) (20-40) % Monocytes % (Manual) (0-10) % Eosinophils % (Manual) (0-4) % Platelet Estimate (NORMAL) Polychromasia Hypochromasia (manual) Anisocytosis (manual) Puncture Site Rr pCO2 31 L (35-45) mm/Hg pO2 186 H (80-100) mm/Hg HCO3 25.9 (21-28) mmol/L ABG pH 7.50 H (7.35-7.45) ABG Total CO2 25.2 (22-28) mmol/L ABG O2 Saturation 99.2 H (95-98) % ABG Base Excess 1.2 (-2.0-3.0) mmol/L ABG Hemoglobin 8.7 L (11.7-17.4) g/dL ABG Carboxyhemoglobin 1.6 H (0.5-1.5) % POC ABG HHb (Measured) 0.8 (0.0-5.0) % ABG Methemoglobin 1.4 (0.0-3.0) % Daniel Test Pos A-a O2 Difference 132.0 mm/Hg Respiratory Index 0.7 Hgb O2 Saturation 96.2 (95.0-98.0) % Vent Mode Prvc Mechanical Rate 18 FiO2 50.0 % Tidal Volume 450 PEEP 6 Crit Value Called To Crit Value Called By Crit Value Read Back Blood Gas Notified Time Sodium (132-148) mmol/L Potassium (3.6-5.2) mmol/L Chloride (98-107) mmol/L Carbon Dioxide (22-30) mmol/L Anion Gap (10-20) BUN (7-17) mg/dL Creatinine (0.7-1.2) mg/dL Est GFR ( Amer) Est GFR (Non-Af Amer) POC Glucose (mg/dL) 82 90 (65-110) mg/dL Random Glucose (65-105) mg/dL Calcium (8.6-10.4) mg/dl Phosphorus (2.5-4.5) mg/dL Magnesium (1.6-2.3) mg/dL Total Bilirubin (0.2-1.3) mg/dL AST (14-36) U/L ALT (9-52) U/L Alkaline Phosphatase (38-126) U/L Total Protein (6.3-8.3) g/dL Albumin (3.5-5.0) g/dL Globulin (2.2-3.9) gm/dL Albumin/Globulin Ratio (1.0-2.1) Beta HCG, Quant mIU/ML 04/18/17 04/18/17 04/18/17 Range/Units 16:17 16:17 14:30 WBC 24.5 H (4.8-10.8) K/uL RBC 3.55 L (3.80-5.20) Mil/uL Hgb 10.0 L (11.0-16.0) g/dL Hct 30.3 L (34.0-47.0) % MCV 85.5 (81.0-99.0) fL MCH 28.1 (27.0-31.0) pg MCHC 32.9 L (33.0-37.0) g/dL RDW 15.5 H (11.5-14.5) % Plt Count 373 (130-400) K/uL MPV 7.7 (7.2-11.7) fL Neut % (Auto) 85.0 H (50.0-75.0) % Lymph % (Auto) 4.5 L (20.0-40.0) % Johnston % (Auto) 9.4 (0.0-10.0) % Eos % (Auto) 0.8 (0.0-4.0) % Baso % (Auto) 0.3 (0.0-2.0) % Neut # 20.8 H (1.8-7.0) K/uL Lymph # 1.1 (1.0-4.3) K/uL Johnston # 2.3 H (0.0-0.8) K/uL Eos # 0.2 (0.0-0.7) K/uL Baso # 0.1 (0.0-0.2) K/uL Neutrophils % (Manual) 84 H (50-75) % Band Neutrophils % 2 (0-2) % Lymphocytes % (Manual) 6 L (20-40) % Monocytes % (Manual) 6 (0-10) % Eosinophils % (Manual) 2 (0-4) % Platelet Estimate Normal (NORMAL) Polychromasia Slight Hypochromasia (manual) Slight Anisocytosis (manual) Slight Puncture Site Lb pCO2 44 (35-45) mm/Hg pO2 501 H (80-100) mm/Hg HCO3 23.7 (21-28) mmol/L ABG pH 7.35 (7.35-7.45) ABG Total CO2 25.7 (22-28) mmol/L ABG O2 Saturation 99.1 H (95-98) % ABG Base Excess -1.5 (-2.0-3.0) mmol/L ABG Hemoglobin 12.3 (11.7-17.4) g/dL ABG Carboxyhemoglobin 1.0 (0.5-1.5) % POC ABG HHb (Measured) 0.9 (0.0-5.0) % ABG Methemoglobin 1.4 (0.0-3.0) % Daniel Test Na A-a O2 Difference 157.0 mm/Hg Respiratory Index 0.3 Hgb O2 Saturation 96.7 (95.0-98.0) % Vent Mode Mechanical Rate 12 FiO2 100.0 % Tidal Volume 450 PEEP 3 Crit Value Called To Dr hammer Crit Value Called By Selvin cabral registered phlebotomist part time Crit Value Read Back Y Blood Gas Notified Time 1445 Sodium 134 (132-148) mmol/L Potassium 3.9 (3.6-5.2) mmol/L Chloride 101 (98-107) mmol/L Carbon Dioxide 26 (22-30) mmol/L Anion Gap 11 (10-20) BUN 31 H (7-17) mg/dL Creatinine 3.9 H (0.7-1.2) mg/dL Est GFR ( Amer) 16 Est GFR (Non-Af Amer) 13 POC Glucose (mg/dL) (65-110) mg/dL Random Glucose 103 (65-105) mg/dL Calcium 7.4 L (8.6-10.4) mg/dl Phosphorus (2.5-4.5) mg/dL Magnesium (1.6-2.3) mg/dL Total Bilirubin 1.1 (0.2-1.3) mg/dL AST 38 H D (14-36) U/L ALT 26 (9-52) U/L Alkaline Phosphatase 79 (38-126) U/L Total Protein 5.3 L (6.3-8.3) g/dL Albumin 2.6 L (3.5-5.0) g/dL Globulin 2.7 (2.2-3.9) gm/dL Albumin/Globulin Ratio 1.0 (1.0-2.1) Beta HCG, Quant mIU/ML 04/18/17 04/18/17 Range/Units 09:10 06:44 WBC (4.8-10.8) K/uL RBC (3.80-5.20) Mil/uL Hgb (11.0-16.0) g/dL Hct (34.0-47.0) % MCV (81.0-99.0) fL MCH (27.0-31.0) pg MCHC (33.0-37.0) g/dL RDW (11.5-14.5) % Plt Count (130-400) K/uL MPV (7.2-11.7) fL Neut % (Auto) (50.0-75.0) % Lymph % (Auto) (20.0-40.0) % Johnston % (Auto) (0.0-10.0) % Eos % (Auto) (0.0-4.0) % Baso % (Auto) (0.0-2.0) % Neut # (1.8-7.0) K/uL Lymph # (1.0-4.3) K/uL Johnston # (0.0-0.8) K/uL Eos # (0.0-0.7) K/uL Baso # (0.0-0.2) K/uL Neutrophils % (Manual) 87 H (50-75) % Band Neutrophils % 1 (0-2) % Lymphocytes % (Manual) 2 L (20-40) % Monocytes % (Manual) 10 (0-10) % Eosinophils % (Manual) (0-4) % Platelet Estimate Normal (NORMAL) Polychromasia Slight Hypochromasia (manual) Slight Anisocytosis (manual) Slight Puncture Site pCO2 (35-45) mm/Hg pO2 (80-100) mm/Hg HCO3 (21-28) mmol/L ABG pH (7.35-7.45) ABG Total CO2 (22-28) mmol/L ABG O2 Saturation (95-98) % ABG Base Excess (-2.0-3.0) mmol/L ABG Hemoglobin (11.7-17.4) g/dL ABG Carboxyhemoglobin (0.5-1.5) % POC ABG HHb (Measured) (0.0-5.0) % ABG Methemoglobin (0.0-3.0) % Daniel Test A-a O2 Difference mm/Hg Respiratory Index Hgb O2 Saturation (95.0-98.0) % Vent Mode Mechanical Rate FiO2 % Tidal Volume PEEP Crit Value Called To Crit Value Called By Crit Value Read Back Blood Gas Notified Time Sodium (132-148) mmol/L Potassium (3.6-5.2) mmol/L Chloride (98-107) mmol/L Carbon Dioxide (22-30) mmol/L Anion Gap (10-20) BUN (7-17) mg/dL Creatinine (0.7-1.2) mg/dL Est GFR ( Amer) Est GFR (Non-Af Amer) POC Glucose (mg/dL) (65-110) mg/dL Random Glucose (65-105) mg/dL Calcium (8.6-10.4) mg/dl Phosphorus (2.5-4.5) mg/dL Magnesium (1.6-2.3) mg/dL Total Bilirubin (0.2-1.3) mg/dL AST (14-36) U/L ALT (9-52) U/L Alkaline Phosphatase (38-126) U/L Total Protein (6.3-8.3) g/dL Albumin (3.5-5.0) g/dL Globulin (2.2-3.9) gm/dL Albumin/Globulin Ratio (1.0-2.1) Beta HCG, Quant < 2.39 mIU/ML Laboratory Results - last 24 hr 04/18/17 04/18/17 04/18/17 06:44 09:10 14:30 WBC RBC Hgb Hct MCV MCH MCHC RDW Plt Count MPV Neut % (Auto) Lymph % (Auto) Johnston % (Auto) Eos % (Auto) Baso % (Auto) Neut # Lymph # Johnston # Eos # Baso # Neutrophils % (Manual) 87 H Band Neutrophils % 1 Lymphocytes % (Manual) 2 L Monocytes % (Manual) 10 Eosinophils % (Manual) Platelet Estimate Normal Polychromasia Slight Hypochromasia (manual) Slight Anisocytosis (manual) Slight Puncture Site Lb pCO2 44 pO2 501 H HCO3 23.7 ABG pH 7.35 ABG Total CO2 25.7 ABG O2 Saturation 99.1 H ABG Base Excess -1.5 ABG Hemoglobin 12.3 ABG Carboxyhemoglobin 1.0 POC ABG HHb (Measured) 0.9 ABG Methemoglobin 1.4 Daniel Test Na A-a O2 Difference 157.0 Respiratory Index 0.3 Hgb O2 Saturation 96.7 Vent Mode Mechanical Rate 12 FiO2 100.0 Tidal Volume 450 PEEP 3 Crit Value Called To Dr hammer Crit Value Called By Selvin cabral registered phlebotomist part time Crit Value Read Back Y Blood Gas Notified Time 1445 Sodium Potassium Chloride Carbon Dioxide Anion Gap BUN Creatinine Est GFR ( Amer) Est GFR (Non-Af Amer) POC Glucose (mg/dL) Random Glucose Calcium Phosphorus Magnesium Total Bilirubin AST ALT Alkaline Phosphatase Total Protein Albumin Globulin Albumin/Globulin Ratio Beta HCG, Quant < 2.39 04/18/17 04/18/17 04/18/17 16:17 16:17 18:02 WBC 24.5 H RBC 3.55 L Hgb 10.0 L Hct 30.3 L MCV 85.5 MCH 28.1 MCHC 32.9 L RDW 15.5 H Plt Count 373 MPV 7.7 Neut % (Auto) 85.0 H Lymph % (Auto) 4.5 L Johnston % (Auto) 9.4 Eos % (Auto) 0.8 Baso % (Auto) 0.3 Neut # 20.8 H Lymph # 1.1 Johnston # 2.3 H Eos # 0.2 Baso # 0.1 Neutrophils % (Manual) 84 H Band Neutrophils % 2 Lymphocytes % (Manual) 6 L Monocytes % (Manual) 6 Eosinophils % (Manual) 2 Platelet Estimate Normal Polychromasia Slight Hypochromasia (manual) Slight Anisocytosis (manual) Slight Puncture Site pCO2 pO2 HCO3 ABG pH ABG Total CO2 ABG O2 Saturation ABG Base Excess ABG Hemoglobin ABG Carboxyhemoglobin POC ABG HHb (Measured) ABG Methemoglobin Daniel Test A-a O2 Difference Respiratory Index Hgb O2 Saturation Vent Mode Mechanical Rate FiO2 Tidal Volume PEEP Crit Value Called To Crit Value Called By Crit Value Read Back Blood Gas Notified Time Sodium 134 Potassium 3.9 Chloride 101 Carbon Dioxide 26 Anion Gap 11 BUN 31 H Creatinine 3.9 H Est GFR ( Amer) 16 Est GFR (Non-Af Amer) 13 POC Glucose (mg/dL) 90 Random Glucose 103 Calcium 7.4 L Phosphorus Magnesium Total Bilirubin 1.1 AST 38 H D ALT 26 Alkaline Phosphatase 79 Total Protein 5.3 L Albumin 2.6 L Globulin 2.7 Albumin/Globulin Ratio 1.0 Beta HCG, Quant 04/18/17 04/19/17 04/19/17 23:53 05:16 05:25 WBC RBC Hgb Hct MCV MCH MCHC RDW Plt Count MPV Neut % (Auto) Lymph % (Auto) Johnston % (Auto) Eos % (Auto) Baso % (Auto) Neut # Lymph # Johnston # Eos # Baso # Neutrophils % (Manual) Band Neutrophils % Lymphocytes % (Manual) Monocytes % (Manual) Eosinophils % (Manual) Platelet Estimate Polychromasia Hypochromasia (manual) Anisocytosis (manual) Puncture Site Rr pCO2 31 L pO2 186 H HCO3 25.9 ABG pH 7.50 H ABG Total CO2 25.2 ABG O2 Saturation 99.2 H ABG Base Excess 1.2 ABG Hemoglobin 8.7 L ABG Carboxyhemoglobin 1.6 H POC ABG HHb (Measured) 0.8 ABG Methemoglobin 1.4 Daniel Test Pos A-a O2 Difference 132.0 Respiratory Index 0.7 Hgb O2 Saturation 96.2 Vent Mode Prvc Mechanical Rate 18 FiO2 50.0 Tidal Volume 450 PEEP 6 Crit Value Called To Crit Value Called By Crit Value Read Back Blood Gas Notified Time Sodium Potassium Chloride Carbon Dioxide Anion Gap BUN Creatinine Est GFR ( Amer) Est GFR (Non-Af Amer) POC Glucose (mg/dL) 82 90 Random Glucose Calcium Phosphorus Magnesium Total Bilirubin AST ALT Alkaline Phosphatase Total Protein Albumin Globulin Albumin/Globulin Ratio Beta HCG, Quant 04/19/17 04/19/17 06:12 06:12 WBC 17.3 H RBC 3.14 L Hgb 8.9 L Hct 26.9 L MCV 85.7 MCH 28.5 MCHC 33.2 RDW 15.5 H Plt Count 349 MPV 8.3 Neut % (Auto) 76.5 H Lymph % (Auto) 8.5 L Johnston % (Auto) 12.6 H Eos % (Auto) 2.1 Baso % (Auto) 0.3 Neut # 13.2 H Lymph # 1.5 Johnston # 2.2 H Eos # 0.4 Baso # 0.1 Neutrophils % (Manual) Band Neutrophils % Lymphocytes % (Manual) Monocytes % (Manual) Eosinophils % (Manual) Platelet Estimate Polychromasia Hypochromasia (manual) Anisocytosis (manual) Puncture Site pCO2 pO2 HCO3 ABG pH ABG Total CO2 ABG O2 Saturation ABG Base Excess ABG Hemoglobin ABG Carboxyhemoglobin POC ABG HHb (Measured) ABG Methemoglobin Daniel Test A-a O2 Difference Respiratory Index Hgb O2 Saturation Vent Mode Mechanical Rate FiO2 Tidal Volume PEEP Crit Value Called To Crit Value Called By Crit Value Read Back Blood Gas Notified Time Sodium 134 Potassium 3.8 Chloride 103 Carbon Dioxide 22 Anion Gap 12 BUN 35 H Creatinine 4.1 H Est GFR ( Amer) 15 Est GFR (Non-Af Amer) 12 POC Glucose (mg/dL) Random Glucose 85 Calcium 7.1 L Phosphorus 3.4 Magnesium 1.6 Total Bilirubin 1.2 AST 38 H ALT 24 Alkaline Phosphatase 66 Total Protein 4.8 L Albumin 2.4 L Globulin 2.4 Albumin/Globulin Ratio 1.0 Beta HCG, Quant Fingerstick Blood Sugar Results: 90 Critical Care Progress Note - Nutrition Nutrition: Nutrition Category Date Time Status NPO Diet [DIET] Diets 04/08/17 Dinner Active Assessment/Plan - Assessment and Plan (Free Text) Assessment: 36F admitted with diarrhea,tachycardia,elevated WBC count ,lipase and lactic acid, 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 s/p boby en Y bypass, gastrojejunostomy with Petron[place] ileostomy placement. POD #1 (04/18/17) Neuro: hx of Schizophrenia, patient has mental retardation and can speak some words based on observation Altered mental status 04/07 Dr. Bedoya consulted Psych Consult: Dr. Mccloud Midazolam 0.02mg/kg/hr Haloperidol 1mg IVP BID PRN Ativan 0.5mg IVP Q3H PRN Pain: Fentanyl 2mcg/kg/hr Zofran 4mg Q6H PRN Thiamine 100mg PO QD Ascorbic Acid 500mg PO QD Nausea: Zofran 4mg IVP q6h PRN Reglan 10 mg IVP q4h PRN Psych: Psych Consult Dr. Mccloud: f/u 03/30 EKG to evaluate QTc Quetiapine (Seroquel) 200mg POBID, held d/t NGT on IWS, held awaiting Dr. Mccloud Recommendations Escitalopram (Lexapro) 10mg PO QD, held d/t NGT on IWS, held awaiting Dr. Mccloud Recommendations Cardio: Tachycardia 03/27 EKG Sinus tachycardia 138 bpm 03/30 EKG QTc 434, Sinus tachycardia at 153 bpm Diltiazem 125mg Q24hr @ 5mg/hr 04/08 Pulm: Aspiration pneumonia s/p EGD with intubation then extubation 03/27 AB.22, lactate 9.7 04/08 AB.50, CO2 24, O2 148, HCO3 22.9, lactate 1.0 03/27 CXR in infiltrates, no active pulmonary disease 03/30 CXR: poor inspiratory effort, areas suggestive of aspiration pneumonia 04/02: CT abdomen/pelvis/chest: pleural effusions, bilateral perihilar consolidations possibly due to multifocal pneumonia vs. atelectasis 04/04: CXR: Left lower lobe atelectasis/pneumonia and small left pleural effusion. Stable position of nasogastric tube and Dialysis catheter with one port Duoneb 04/17 CXR: mild vascular congestion 04/18 CXR: vascular congestion, poor inspiratory effort 04/19 CXR: vascular congestion, poor inspiratory effort Albuterol/Ipratropium 3cc INH RQ6H Endo: 03/28 Hemoglobin A1c 5.3 GI: Currently on PPN 03/28 Lipase 8456 03/29 Lipase 322 03/30 Lipase 64 03/30 GOBT positive 03/31 Pathology for Antrum biopsy from 03/29 EGD current biopsy negative for H pylori 04/01 f/u Dr. Harmon for repeat EGD., NGT 800 03/27 21:42 CT abdomen/pelvis with IV contrast: gastric distention 32cm and distention of the first and third and second portion of duodenum. Transition and complete decompression of third portion of duodenum. pancreas unremarkable, spleen unremarkable, partially contracted gallbladder. duodenal obstruction v delayed emptying v gastroparesis. Fluid distention of distal esophagus 3.3cm representing gastric emptying v gastroesophageal reflux. 03/27 CT abdomen/pelvis with IV contrast: significantly dilated stomach with retained food and fluid. significantly diminished prior to earlier CT 03/28. No free intraperitoneal gas identified. contrast noted in Gallbladder. 03/28 CT Chest/Abdomen/Pelvis: Left greater than right pleural effusion, bilateral perihilar consolidation. right more than left upper lobes and left more than right lower lobes. lingular consolidation representing multifocal pneumonia v. atelectasis versus mucous lugging and/or aspiration. interval worsening compared to prior exam 04/02 CT chest/abdomen/pelvis shows gastric distention 27cm, possible gastric pneumatosis, NGT at fundus with contrast fluid and gas level peripancreatic infiltration. gastric distension measuring 27 cm with possible gastric pneumatosis. intraperitoneal pelvic fluid with prominent surrounding peritoneal lining. Loculated ascites with peritoneal enhancement above spleen in retrogastric region. Lipase 320. 04/08 CT Chest/Abdomen/Pelvis: resolving acute pancreatitis, no residual peripancreatic fluid. 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 Distention of stomach due to gastric ileus. Ascites and loculated fluid posterior to the gastric fundus and cephalad to the spleen. Focal enteritis of proximal jejunum with mural thickening. Small left pleural effusion with left lower lobe compressive atelectasis. 04/14/17 CT Angio Abdomen/Pelvis:gastric distentions 27cm. gastric pneumatosis on image 66 through 73 series 6. NGT in fundus of stomach with contrast fluid and gas level. peripancreatic infiltration. left more than right large pleural effusions. bilateral perihilar consolidation. right more than left upper lobes and left more than right lower lobes lingular consolidation. Significant interval worsening when compared to prior examination 03/28/17. moderate intraperitoneal pelvic fluid with prominent surrounding peritoneal lining. Loculated peritoneal abscess secondary to contained gastric perforation 03/[address] connected to suction. 03/28 NGT OP since insertion: 2600cc 03/29 2350 03/30 NGT 1160 03/31 NGT 630 04/01 NGT 800 04/02 NGT 100 04/04 550, NGT removed by patient, Flexiseal removed by patient f/u Strict I/Os 04/10 NGT 3300 04/11 NGT 1200 1 NGT 700, with about 100cc of bright red sanguinous blood, with bilious component. 04/12 NGT off suction, clamped, patient continues to have red output to gravity. General Surgery Consult: Dr. Woodruff 03/[address] Harmon to have EGD today. 03/[address] Harmon, place patient on Reglan to help with motility. 03/30 Abdominal xray/obstructive series: minimal distention of stomach compared to previous imaging studies 03/31 Pathology for Antrum biopsy from 03/29 EGD current biopsy negative for H pylori 04/01 f/ Dr. Harmon for repeat EGD. 04/13 Dr. Lau repeat EGD: diffuse ulceration, large fibrous clot, repeat EGD scheduled 04/14 for re-evaluation, CT Angio ordered to evaluate for ischemia 04/13 NGT 280 cc 04/14 NGT 140cc over 24 hours 04/14 repeat EGD cancelled. continued supportive care by GI today 04/14 NGT 200cc 04/15 repeat EGD and PEJ tube insertion, could not be done due to inability to find a stable place for PEJ 04/18 Boby en Y bypass, gastrojejunostomy, [place] ileostomy, drain insertion in LLQ by Dr. Mendez, no evidence of SMA compression of duodenum 04/19 LLQ drain 105 cc since insertion 04/19 RLQ ileostomy bag 320 cc since insertion Zofran 4mg IVP q6h PRN Reglan 10 mg IVP q4h PRN Renal: 03/27 UA: proteinuria urine output since insertion 360 f/u Strict I/Os 03/31 Potassium Phosphorus 15mmole @63cc/hr Patient is on dialysis and making urine. will monitor hourly output : 03/27 UA: hazy, specific gravity >1.060, 3+ urine protein, Urine bacteria, Urine Yeast Ceftriaxone 1gm IVPB QD, discontinued 03/30 Urine Cx negative 04/08 UA: Ariadne, UA pH 5.0, trace ketones, 1+ leukocyte esterase, specific gravity 1.030 04/08 urine random total protein 41.0 Urine random chloride 17 Urine random sodium 7 Heme: GI bleed H/H: 03/27 14.6/44.7 03/28 12.9/38.5 03/28 FOBT positive 03/29 11.2/33.0 03/30 GOBT positive 03/30 9.5/27.7 03/31 9.4/27.5 04/01 8.9/25.8 04/02 9.1/26.7 04/04 9.9/28.8 04/05 9.4/28.4 04/09/1704/10 9.6/29.9 04/11 7.8/22.6 04/12 7.0/20.4 04/13 4.1/11.1 04/14 6.8/19.9 04/15 10.8/30.9 04/16 10.5/30.7 04/17 9.1/.4 04/18 06:44 9.0/26.7 04/18 16:17 10.0, post Boby en y bypass, gastrojejunostomy, Petrona Ileostomy 04/19 8.9/.9 MSK: Patient can walk per sister, but is dizzy so hasn't walked PT/OT eval ID: Sepsis Code sepsis 03/28 02:20, 03/28 lactate 9.7, 03/28 lactate 01:05 9.2, 03/28 lactate 06:15 1.3 Lactate is downtrending, normal Leukocytosis, downtrending WBC 04/14 13.9 04/15 15.8 04/16 13.7 04/17 13.3 04/18 18.1 Code sepsis 03/28 02:20 03/30 blood Culture x 2, negative 03/30 MRSA screen negative 03/30 Urine Cx negative 04/02 Blood culture x2 negative 03/29 Neutrophils 75, Bands 9 03/30 Neutrophils 83, Bands 1 04/02 Neutrophils 83 04/04 Neutrophils 73.8 04/05 Neutrophils 74.4 Code sepsis called again today 04/08. Patient was febrile (102 rectally and tachycardic ~140s) BP was 100/70. Tovar inserted to monitor urine output (nurse to clean TID with betadine) WBC 36.1 elevating from 20s. 4 bands, platelets 707 Prophylaxis: GI: Protonix Q12H Zofran 4mg IVP Q6H PRN Nausea Tylenol 325mg HI Q4H PRN Fluids: LR @100cc/hr Diet: NPO 04/04 NGT removed by patient, Flexiseal removed by patient, Left PICC removed by patient. 04/05 Patient downgraded to Regular Bed 04/11 Patient has a femoral dialysis catheter 04/12 GI consulted for GI bleed, repeat EGD 04/13 patient to have dialysis today with 2 u PRBC transfusion. CTA of abdomen and pelvis today d/t possible ischemic changes due to diffuse ulcerations seen on EGD 04/14 Patient had 3 uPRBC yesterday (1 u after dialysis) Patient's hgb is 6.8 today. Will transfuse 1 u PRBC during extra dialysis session today. repeat EGD today 04/15 04/16 04/17 Patient underwent dialysis 04/18 Boby en Y ex lap and Petrona ileostomy placement. discussed with Dr. Patrick Smith DO PGY1 - Date & Time Date: 04/19/17 Time: 07:50 <Jose Hernandez - Last Filed: 04/19/17 17:41> CCU Objective - Vital Signs / Intake & Output Vital Signs (Last 4 hours): Vital Signs Temp Pulse Resp BP Pulse Ox 04/19/17 16:00 100.1 F H 126 H 14 100 04/19/17 15:09 124 H 14 103/67 100 04/19/17 15:00 126 H 14 100 04/19/17 14:09 126 H 14 102/68 100 04/19/17 14:03 126 H 14 105/68 100 04/19/17 14:02 126 H 14 100 04/19/17 14:00 127 H 14 100 Intake and Output (Last 8hrs): Intake & Output 04/19/17 04/19/17 04/19/17 06:59 14:59 22:59 Intake Total 1158.4 489.4 55.2 Output Total 635 400 315 Balance 523.4 89.4 -259.8 Weight 154 lb 5 oz Intake: IV 146 63 Intake, IV Amount 1012.4 426.4 55.2 Left Wrist 800 250 Right Femoral 43.2 43.2 10.8 Rt Femoral 169.2 133.2 44.4 Output: Gastric Amount 10 0 75 Right Nares 10 0 75 Drainage 325 150 165 Left Lower Abdomen 105 150 75 Right Lower Abdomen 220 0 90 Urine 300 250 75 Urethral (Tovar) 300 250 75 Stool 0 0 Other: # Bowel Movements 0 - Medications Active Medications: Active Medications Generic Name Dose Route Start Last Admin Trade Name James PRN Reason Stop Dose Admin Acetaminophen 325 mg 03/29/17 07:57 04/18/17 20:13 Tylenol 325 Mg Supp HI 325 mg Q4 PRN Administration Fever >100.4 F Albuterol/Ipratropium 3 ml 04/18/17 14:00 04/19/17 07:10 Duoneb 3 Mg/0.5 Mg (3 Ml) Ud INH 3 ml RQ6 AGUSTIN Administration Ascorbic Acid 500 mg 04/08/17 12:30 04/19/17 09:30 Vitamin C 500 Mg Tab PO Not Given DAILY AGUSTIN Haloperidol Lactate 1 mg 03/29/17 18:47 04/17/17 00:00 Haldol IVP 1 mg BID PRN Administration Agitation Hydromorphone HCl 0.5 mg 04/17/17 07:16 04/17/17 20:17 Dilaudid IVP 0.5 mg Q3 PRN Administration Pain, moderate (4-7) Hydromorphone HCl 1 mg 04/17/17 07:16 04/18/17 14:50 Dilaudid IVP 1 mg Q3 PRN Administration Pain, severe (8-10) Piperacillin Sod/Tazobactam Sod 2.25 gm in 50 mls @ 100 mls/hr 04/12/17 18:00 04/19/17 13:11 Zosyn 2.25 Gm Iv Premix IVPB 100 mls/hr Q8H AGUSTIN Administration Midazolam HCl 100 mg/ Sodium 100 mls @ 1.35 mls/hr 04/18/17 14:00 04/19/17 15 :28 Chloride IV Not Given .Q24H AGUSTIN Protocol 0.02 MG/KG/HR Fentanyl Citrate 2,500 mcg/ 250 mls @ 13.56 mls/hr 04/18/17 19:45 04/19/17 15 :26 Sodium Chloride IV Not Given .[id number] AGUSTIN Protocol 2 MCG/KG/HR Multivitamins/Vitamin C 10 ml/ 1,011 mls @ 63 mls/hr 04/19/17 18:00 Chromium/Copper/Manganese/ IV 04/20/17 10:02 Zinc 1 ml/ Amino Acids/ .[id number] ONE Electrolytes/Dextrose Chromium/Copper/Manganese/Zinc 1,001 mls @ 63 mls/hr 04/20/17 10:00 1 ml/ Amino Acids/ IV 04/21/17 01:53 Electrolytes/Dextrose .[id number] ONE Fat Emulsion Intravenous 250 mls @ 42 mls/hr 04/19/17 18:00 Intralipid 20% IV 04/19/17 23:57 1800 ONE Lorazepam 0.5 mg 04/01/17 16:08 04/18/17 03:30 Ativan IVP 0.5 mg Q3H PRN Administration Anxiety Ondansetron HCl 4 mg 03/27/17 23:45 04/11/17 21:39 Zofran Inj IVP 4 mg Q6H PRN Administration Nausea/Vomiting Pantoprazole Sodium 20 mg 04/19/17 18:00 Protonix Inj IVP BID [facility] Saccharomyces Boulardii 250 mg 04/08/17 18:00 04/19/17 09:30 Florastor PO Not Given BID [facility] Thiamine HCl 100 mg 04/08/17 12:30 04/19/17 09:30 Vitamin B1 Tab PO Not Given DAILY AGUSTIN - Patient Studies Lab Studies: Microbiology Studies 04/18/17 21:42 Gram Stain - Final Abdomen Lab Studies 04/19/17 04/19/17 04/19/17 Range/Units 17:32 11:45 06:12 WBC (4.8-10.8) K/uL RBC (3.80-5.20) Mil/uL Hgb (11.0-16.0) g/dL Hct (34.0-47.0) % MCV (81.0-99.0) fL MCH (27.0-31.0) pg MCHC (33.0-37.0) g/dL RDW (11.5-14.5) % Plt Count (130-400) K/uL MPV (7.2-11.7) fL Neut % (Auto) (50.0-75.0) % Lymph % (Auto) (20.0-40.0) % Johnston % (Auto) (0.0-10.0) % Eos % (Auto) (0.0-4.0) % Baso % (Auto) (0.0-2.0) % Neut # (1.8-7.0) K/uL Lymph # (1.0-4.3) K/uL Johnston # (0.0-0.8) K/uL Eos # (0.0-0.7) K/uL Baso # (0.0-0.2) K/uL Neutrophils % (Manual) (50-75) % Lymphocytes % (Manual) (20-40) % Monocytes % (Manual) (0-10) % Platelet Estimate (NORMAL) Polychromasia Hypochromasia (manual) Anisocytosis (manual) Microcytosis (manual) Ovalocytes Puncture Site pCO2 (35-45) mm/Hg pO2 (80-100) mm/Hg HCO3 (21-28) mmol/L ABG pH (7.35-7.45) ABG Total CO2 (22-28) mmol/L ABG O2 Saturation (95-98) % ABG Base Excess (-2.0-3.0) mmol/L ABG Hemoglobin (11.7-17.4) g/dL ABG Carboxyhemoglobin (0.5-1.5) % POC ABG HHb (Measured) (0.0-5.0) % ABG Methemoglobin (0.0-3.0) % Daniel Test A-a O2 Difference mm/Hg Respiratory Index Hgb O2 Saturation (95.0-98.0) % Vent Mode Mechanical Rate FiO2 % Tidal Volume PEEP Sodium 134 (132-148) mmol/L Potassium 3.8 (3.6-5.2) mmol/L Chloride 103 (98-107) mmol/L Carbon Dioxide 22 (22-30) mmol/L Anion Gap 12 (10-20) BUN 35 H (7-17) mg/dL Creatinine 4.1 H (0.7-1.2) mg/dL Est GFR ( Amer) 15 Est GFR (Non-Af Amer) 12 POC Glucose (mg/dL) 77 93 (65-110) mg/dL Random Glucose 85 (65-105) mg/dL Calcium 7.1 L (8.6-10.4) mg/dl Phosphorus 3.4 (2.5-4.5) mg/dL Magnesium 1.6 (1.6-2.3) mg/dL Total Bilirubin 1.2 (0.2-1.3) mg/dL AST 38 H (14-36) U/L ALT 24 (9-52) U/L Alkaline Phosphatase 66 (38-126) U/L Total Protein 4.8 L (6.3-8.3) g/dL Albumin 2.4 L (3.5-5.0) g/dL Globulin 2.4 (2.2-3.9) gm/dL Albumin/Globulin Ratio 1.0 (1.0-2.1) 04/19/17 04/19/17 04/19/17 Range/Units 06:12 05:25 05:16 WBC 17.3 H (4.8-10.8) K/uL RBC 3.14 L (3.80-5.20) Mil/uL Hgb 8.9 L (11.0-16.0) g/dL Hct 26.9 L (34.0-47.0) % MCV 85.7 (81.0-99.0) fL MCH 28.5 (27.0-31.0) pg MCHC 33.2 (33.0-37.0) g/dL RDW 15.5 H (11.5-14.5) % Plt Count 349 (130-400) K/uL MPV 8.3 (7.2-11.7) fL Neut % (Auto) 76.5 H (50.0-75.0) % Lymph % (Auto) 8.5 L (20.0-40.0) % Johnston % (Auto) 12.6 H (0.0-10.0) % Eos % (Auto) 2.1 (0.0-4.0) % Baso % (Auto) 0.3 (0.0-2.0) % Neut # 13.2 H (1.8-7.0) K/uL Lymph # 1.5 (1.0-4.3) K/uL Johnston # 2.2 H (0.0-0.8) K/uL Eos # 0.4 (0.0-0.7) K/uL Baso # 0.1 (0.0-0.2) K/uL Neutrophils % (Manual) 90 H (50-75) % Lymphocytes % (Manual) 3 L (20-40) % Monocytes % (Manual) 7 (0-10) % Platelet Estimate Normal (NORMAL) Polychromasia Slight Hypochromasia (manual) Slight Anisocytosis (manual) Slight Microcytosis (manual) Slight Ovalocytes Slight Puncture Site Rr pCO2 31 L (35-45) mm/Hg pO2 186 H (80-100) mm/Hg HCO3 25.9 (21-28) mmol/L ABG pH 7.50 H (7.35-7.45) ABG Total CO2 25.2 (22-28) mmol/L ABG O2 Saturation 99.2 H (95-98) % ABG Base Excess 1.2 (-2.0-3.0) mmol/L ABG Hemoglobin 8.7 L (11.7-17.4) g/dL ABG Carboxyhemoglobin 1.6 H (0.5-1.5) % POC ABG HHb (Measured) 0.8 (0.0-5.0) % ABG Methemoglobin 1.4 (0.0-3.0) % Daniel Test Pos A-a O2 Difference 132.0 mm/Hg Respiratory Index 0.7 Hgb O2 Saturation 96.2 (95.0-98.0) % Vent Mode Prvc Mechanical Rate 18 FiO2 50.0 % Tidal Volume 450 PEEP 6 Sodium (132-148) mmol/L Potassium (3.6-5.2) mmol/L Chloride (98-107) mmol/L Carbon Dioxide (22-30) mmol/L Anion Gap (10-20) BUN (7-17) mg/dL Creatinine (0.7-1.2) mg/dL Est GFR ( Amer) Est GFR (Non-Af Amer) POC Glucose (mg/dL) 90 (65-110) mg/dL Random Glucose (65-105) mg/dL Calcium (8.6-10.4) mg/dl Phosphorus (2.5-4.5) mg/dL Magnesium (1.6-2.3) mg/dL Total Bilirubin (0.2-1.3) mg/dL AST (14-36) U/L ALT (9-52) U/L Alkaline Phosphatase (38-126) U/L Total Protein (6.3-8.3) g/dL Albumin (3.5-5.0) g/dL Globulin (2.2-3.9) gm/dL Albumin/Globulin Ratio (1.0-2.1) 04/18/17 04/18/17 Range/Units 23:53 18:02 WBC (4.8-10.8) K/uL RBC (3.80-5.20) Mil/uL Hgb (11.0-16.0) g/dL Hct (34.0-47.0) % MCV (81.0-99.0) fL MCH (27.0-31.0) pg MCHC (33.0-37.0) g/dL RDW (11.5-14.5) % Plt Count (130-400) K/uL MPV (7.2-11.7) fL Neut % (Auto) (50.0-75.0) % Lymph % (Auto) (20.0-40.0) % Johnston % (Auto) (0.0-10.0) % Eos % (Auto) (0.0-4.0) % Baso % (Auto) (0.0-2.0) % Neut # (1.8-7.0) K/uL Lymph # (1.0-4.3) K/uL Johnston # (0.0-0.8) K/uL Eos # (0.0-0.7) K/uL Baso # (0.0-0.2) K/uL Neutrophils % (Manual) (50-75) % Lymphocytes % (Manual) (20-40) % Monocytes % (Manual) (0-10) % Platelet Estimate (NORMAL) Polychromasia Hypochromasia (manual) Anisocytosis (manual) Microcytosis (manual) Ovalocytes Puncture Site pCO2 (35-45) mm/Hg pO2 (80-100) mm/Hg HCO3 (21-28) mmol/L ABG pH (7.35-7.45) ABG Total CO2 (22-28) mmol/L ABG O2 Saturation (95-98) % ABG Base Excess (-2.0-3.0) mmol/L ABG Hemoglobin (11.7-17.4) g/dL ABG Carboxyhemoglobin (0.5-1.5) % POC ABG HHb (Measured) (0.0-5.0) % ABG Methemoglobin (0.0-3.0) % Daniel Test A-a O2 Difference mm/Hg Respiratory Index Hgb O2 Saturation (95.0-98.0) % Vent Mode Mechanical Rate FiO2 % Tidal Volume PEEP Sodium (132-148) mmol/L Potassium (3.6-5.2) mmol/L Chloride (98-107) mmol/L Carbon Dioxide (22-30) mmol/L Anion Gap (10-20) BUN (7-17) mg/dL Creatinine (0.7-1.2) mg/dL Est GFR ( Amer) Est GFR (Non-Af Amer) POC Glucose (mg/dL) 82 90 (65-110) mg/dL Random Glucose (65-105) mg/dL Calcium (8.6-10.4) mg/dl Phosphorus (2.5-4.5) mg/dL Magnesium (1.6-2.3) mg/dL Total Bilirubin (0.2-1.3) mg/dL AST (14-36) U/L ALT (9-52) U/L Alkaline Phosphatase (38-126) U/L Total Protein (6.3-8.3) g/dL Albumin (3.5-5.0) g/dL Globulin (2.2-3.9) gm/dL Albumin/Globulin Ratio (1.0-2.1) Laboratory Results - last 24 hr 04/18/17 04/18/17 04/19/17 18:02 23:53 05:16 WBC RBC Hgb Hct MCV MCH MCHC RDW Plt Count MPV Neut % (Auto) Lymph % (Auto) Johnston % (Auto) Eos % (Auto) Baso % (Auto) Neut # Lymph # Johnston # Eos # Baso # Neutrophils % (Manual) Lymphocytes % (Manual) Monocytes % (Manual) Platelet Estimate Polychromasia Hypochromasia (manual) Anisocytosis (manual) Microcytosis (manual) Ovalocytes Puncture Site Rr pCO2 31 L pO2 186 H HCO3 25.9 ABG pH 7.50 H ABG Total CO2 25.2 ABG O2 Saturation 99.2 H ABG Base Excess 1.2 ABG Hemoglobin 8.7 L ABG Carboxyhemoglobin 1.6 H POC ABG HHb (Measured) 0.8 ABG Methemoglobin 1.4 Daniel Test Pos A-a O2 Difference 132.0 Respiratory Index 0.7 Hgb O2 Saturation 96.2 Vent Mode Prvc Mechanical Rate 18 FiO2 50.0 Tidal Volume 450 PEEP 6 Sodium Potassium Chloride Carbon Dioxide Anion Gap BUN Creatinine Est GFR ( Amer) Est GFR (Non-Af Amer) POC Glucose (mg/dL) 90 82 Random Glucose Calcium Phosphorus Magnesium Total Bilirubin AST ALT Alkaline Phosphatase Total Protein Albumin Globulin Albumin/Globulin Ratio 04/19/17 04/19/17 04/19/17 05:25 06:12 06:12 WBC 17.3 H RBC 3.14 L Hgb 8.9 L Hct 26.9 L MCV 85.7 MCH 28.5 MCHC 33.2 RDW 15.5 H Plt Count 349 MPV 8.3 Neut % (Auto) 76.5 H Lymph % (Auto) 8.5 L Johnston % (Auto) 12.6 H Eos % (Auto) 2.1 Baso % (Auto) 0.3 Neut # 13.2 H Lymph # 1.5 Johnston # 2.2 H Eos # 0.4 Baso # 0.1 Neutrophils % (Manual) 90 H Lymphocytes % (Manual) 3 L Monocytes % (Manual) 7 Platelet Estimate Normal Polychromasia Slight Hypochromasia (manual) Slight Anisocytosis (manual) Slight Microcytosis (manual) Slight Ovalocytes Slight Puncture Site pCO2 pO2 HCO3 ABG pH ABG Total CO2 ABG O2 Saturation ABG Base Excess ABG Hemoglobin ABG Carboxyhemoglobin POC ABG HHb (Measured) ABG Methemoglobin Daniel Test A-a O2 Difference Respiratory Index Hgb O2 Saturation Vent Mode Mechanical Rate FiO2 Tidal Volume PEEP Sodium 134 Potassium 3.8 Chloride 103 Carbon Dioxide 22 Anion Gap 12 BUN 35 H Creatinine 4.1 H Est GFR ( Amer) 15 Est GFR (Non-Af Amer) 12 POC Glucose (mg/dL) 90 Random Glucose 85 Calcium 7.1 L Phosphorus 3.4 Magnesium 1.6 Total Bilirubin 1.2 AST 38 H ALT 24 Alkaline Phosphatase 66 Total Protein 4.8 L Albumin 2.4 L Globulin 2.4 Albumin/Globulin Ratio 1.0 04/19/17 04/19/17 11:45 17:32 WBC RBC Hgb Hct MCV MCH MCHC RDW Plt Count MPV Neut % (Auto) Lymph % (Auto) Johnston % (Auto) Eos % (Auto) Baso % (Auto) Neut # Lymph # Johnston # Eos # Baso # Neutrophils % (Manual) Lymphocytes % (Manual) Monocytes % (Manual) Platelet Estimate Polychromasia Hypochromasia (manual) Anisocytosis (manual) Microcytosis (manual) Ovalocytes Puncture Site pCO2 pO2 HCO3 ABG pH ABG Total CO2 ABG O2 Saturation ABG Base Excess ABG Hemoglobin ABG Carboxyhemoglobin POC ABG HHb (Measured) ABG Methemoglobin Daniel Test A-a O2 Difference Respiratory Index Hgb O2 Saturation Vent Mode Mechanical Rate FiO2 Tidal Volume PEEP Sodium Potassium Chloride Carbon Dioxide Anion Gap BUN Creatinine Est GFR ( Amer) Est GFR (Non-Af Amer) POC Glucose (mg/dL) 93 77 Random Glucose Calcium Phosphorus Magnesium Total Bilirubin AST ALT Alkaline Phosphatase Total Protein Albumin Globulin Albumin/Globulin Ratio Critical Care Progress Note - Nutrition Nutrition: Nutrition Category Date Time Status NPO Diet [DIET] Diets 04/08/17 Dinner Active Assessment/Plan (1) SMAS (superior mesenteric artery syndrome) Current Visit: Yes Status: Acute Comment: (2) Acute renal failure Current Visit: Yes Status: Acute (3) Mental retardation Current Visit: No Status: Acute Attending/Attestation - Attestation I have personally seen and examined this patient.: Yes I have fully participated in the care of the patient.: Yes I have reviewed all pertinent clinical information: Yes Notes (Text): 04/19/17 17:36 Patient seen and examined in the intensive care unit. Exp laparotomy, Boby en Y gastrojejunostomy, Boby en Y feeding jejunostomy tube with petrona ileostomy Intubated on ventilatory support, remains tachycardic Serosanguineous discharge from the drain Follow-up CBC weaning off vent as tolerated
[2017-04-19] MEDS: Midazolam 50 mg/10 ml 100 MG in Sodium Chloride 0.9% 80 ML IV SCH ×2 (07:47→15:28)
[2017-04-19 08:18] LABS: ANISOCYTOSIS SLIGHT; LYMPHOCYTE 3 % (20-40); MONOCYTE 7 % (0-10); NEUTROPHIL 90 % (50-75); PLATELET ESTIMATE NORMAL (NORMAL); TOTAL CELLS COUNTED 100
[2017-04-19 08:19] LABS: HYPOCHROMIC SLIGHT; POLYCHROMIC SLIGHT
[2017-04-19 08:20] LABS: MICROCYTOSIS SLIGHT; OVALOCYTES SLIGHT
--- NOTE | 2017-04-19 09:18 | CP.PCM.PN ---
<Amn Raoula - Last Filed: 04/19/17 09:24> Subjective - Date & Time of Evaluation Date of Evaluation: 04/19/17 Time of Evaluation: 07:10 - Subjective Subjective: GI Fellow PGY4 Progress Note Pt seen and evaluated at bedside, pt intubated on MV post surgery. Pt uncomfortable and in pain, HR 150s. Pt with serosangious outpt via ileostomy and TOBI drain. ROS: A 12pt ROS was unable to be obtained, pt nonverbal Objective - Vital Signs/Intake and Output Vital Signs (last 24 hours): Temp Pulse Resp BP Pulse Ox 99.8 F H 133 H 14 107/76 100 04/19/17 08:00 04/19/17 09:00 04/19/17 09:00 04/19/17 08:49 04/19/17 09:00 Intake and Output: 04/19/17 04/19/17 06:59 18:59 Intake Total 1797.9 173.8 Output Total 655 175 Balance 1142.9 -1.2 - Medications Medications: Current Medications Acetaminophen (Tylenol 325 Mg Supp) [address] Q4 PRN PRN Reason: Fever >100.4 F Last Admin: 04/18/17 20:13 Dose: 325 mg Albuterol/Ipratropium (Duoneb 3 Mg/0.5 Mg (3 Ml) Ud) 3 ml INH RQ6 [facility] Last Admin: 04/19/17 07:10 Dose: 3 ml Ascorbic Acid (Vitamin C 500 Mg Tab) 500 mg PO DAILY [facility] Last Admin: 04/18/17 09:52 Dose: Not Given Famotidine (Pepcid) 20 mg IVP Q12 [facility] Last Admin: 04/18/17 21:41 Dose: 20 mg Haloperidol Lactate (Haldol) 1 mg IVP BID PRN PRN Reason: Agitation Last Admin: 04/17/17 00:00 Dose: 1 mg Hydromorphone HCl (Dilaudid) 0.5 mg IVP Q3 PRN PRN Reason: Pain, moderate (4-7) Last Admin: 04/17/17 20:17 Dose: 0.5 mg Hydromorphone HCl (Dilaudid) 1 mg IVP Q3 PRN PRN Reason: Pain, severe (8-10) Last Admin: 04/18/17 14:50 Dose: 1 mg Piperacillin Sod/Tazobactam Sod (Zosyn 2.25 Gm Iv Premix) 2.25 gm in 50 mls @ 100 mls/hr IVPB Q8H [facility] Last Admin: 04/19/17 01:07 Dose: 100 mls/hr Midazolam HCl 100 mg/ Sodium (Chloride) 100 mls @ 1.35 mls/hr IV .Q24H AGUSTIN; 0.02 MG/KG/HR PRN Reason: Protocol Last Admin: 04/19/17 07:47 Dose: 0.08 mg/kg/hr, 5.42 mls/hr Fentanyl Citrate 2,500 mcg/ (Sodium Chloride) 250 mls @ 13.56 mls/hr IV .[id number] AGUSTIN; 2 MCG/KG/HR PRN Reason: Protocol Last Admin: 04/19/17 09:14 Dose: 3 mcg/kg/hr, 20.34 mls/hr Lorazepam (Ativan) 0.5 mg IVP Q3H PRN PRN Reason: Anxiety Last Admin: 04/18/17 03:30 Dose: 0.5 mg Ondansetron HCl (Zofran Inj) 4 mg IVP Q6H PRN PRN Reason: Nausea/Vomiting Last Admin: 04/11/17 21:39 Dose: 4 mg Saccharomyces Boulardii (Florastor) 250 mg PO BID [facility] Last Admin: 04/18/17 17:35 Dose: Not Given Thiamine HCl (Vitamin B1 Tab) 100 mg PO DAILY [facility] Last Admin: 04/18/17 09:52 Dose: Not Given - Labs Labs: 04/19/17 06:12 04/19/17 06:12 PT 13.0 SECONDS (9.7-12.2) H 04/18/17 06:44 INR 1.2 04/18/17 06:44 APTT 30 SECONDS (21-34) 04/17/17 06:38 - Constitutional Appears: Non-toxic, Chronically Ill - Head Exam Head Exam: ATRAUMATIC, NORMAL INSPECTION, NORMOCEPHALIC - Eye Exam Eye Exam: PERRL - ENT Exam ENT Exam: Mucous Membranes Dry Additional comments: NGT - Neck Exam Neck Exam: Full ROM - Respiratory Exam Respiratory Exam: Rhonchi, Respiratory Distress Additional comments: MV intubated ETT - Cardiovascular Exam Cardiovascular Exam: Tachycardia - GI/Abdominal Exam GI & Abdominal Exam: Soft, Normal Bowel Sounds. absent: Distended, Guarding Additional comments: s/p surgery ileostomy, TOBI drain - Rectal Exam Rectal Exam: Deferred - Extremities Exam Extremities Exam: Pedal Edema - Psychiatric Exam Psychiatric exam: Depressed - Skin Skin Exam: Dry, Intact, Normal Color, Warm Assessment and Plan - Assessment and Plan (Free Text) Assessment: Alondra Rivera is a 37F w/ hx of Schizophrenia, mental disability who presents to the hospital due to abd pain diarrhea. She was found to have acute pancreatitis and severe gastric distention with retained food. Renal function is worsening with Cr rising and BUN s/p HD. 1. SMA syndrome 2. Anemia 3. Sepsis 4. Hemorrhagic/ischemic gastropathy 5. Phytobezor, marked stomach distention 6. Complicated Acute pancreatitis 7. Renal failure s/p HD 8. s/p Asim-en-Y gastrojejunostomy, jejunostomy feeding tube and ileostomy Plan: -Continue supportive care with pain control and s/p mechanical ventilation post- op -Continue NPO -Continue PPI bid -Pancreatitis improved, continue IVFs -No GI bleeding, keep hgb > 7 -Continue antibiotics as per ID -Renal failure s/p HD -s/p Asim-en-Y gastrojejunostomy, jejunostomy feeding tube and ileostomy, further recommendations per surgery -Please call with any questions or concerns <Rivas Lau - Last Filed: 04/19/17 10:53> Objective - Vital Signs/Intake and Output Vital Signs (last 24 hours): Temp Pulse Resp BP Pulse Ox 101.0 F H 134 H 14 104/68 100 04/19/17 09:35 04/19/17 09:35 04/19/17 09:35 04/19/17 10:25 04/19/17 09:00 Intake and Output: 04/19/17 04/19/17 06:59 18:59 Intake Total 1797.9 201.4 Output Total 655 220 Balance 1142.9 -18.6 - Medications Medications: Current Medications Acetaminophen (Tylenol 325 Mg Supp) [address] Q4 PRN PRN Reason: Fever >100.4 F Last Admin: 04/18/17 20:13 Dose: 325 mg Albuterol/Ipratropium (Duoneb 3 Mg/0.5 Mg (3 Ml) Ud) 3 ml INH RQ6 AGUSTIN Last Admin: 04/19/17 07:10 Dose: 3 ml Ascorbic Acid (Vitamin C 500 Mg Tab) 500 mg PO DAILY [facility] Last Admin: 04/19/17 09:30 Dose: Not Given Famotidine (Pepcid) 20 mg IVP Q12 AGUSTIN Last Admin: 04/18/17 21:41 Dose: 20 mg Haloperidol Lactate (Haldol) 1 mg IVP BID PRN PRN Reason: Agitation Last Admin: 04/17/17 00:00 Dose: 1 mg Hydromorphone HCl (Dilaudid) 0.5 mg IVP Q3 PRN PRN Reason: Pain, moderate (4-7) Last Admin: 04/17/17 20:17 Dose: 0.5 mg Hydromorphone HCl (Dilaudid) 1 mg IVP Q3 PRN PRN Reason: Pain, severe (8-10) Last Admin: 04/18/17 14:50 Dose: 1 mg Piperacillin Sod/Tazobactam Sod (Zosyn 2.25 Gm Iv Premix) 2.25 gm in 50 mls @ 100 mls/hr IVPB Q8H AGUSTIN Last Admin: 04/19/17 01:07 Dose: 100 mls/hr Midazolam HCl 100 mg/ Sodium (Chloride) 100 mls @ 1.35 mls/hr IV .Q24H AGUSTIN; 0.02 MG/KG/HR PRN Reason: Protocol Last Admin: 04/19/17 07:47 Dose: 0.08 mg/kg/hr, 5.42 mls/hr Fentanyl Citrate 2,500 mcg/ (Sodium Chloride) 250 mls @ 13.56 mls/hr IV .[id number] AGUSTIN; 2 MCG/KG/HR PRN Reason: Protocol Last Admin: 04/19/17 09:14 Dose: 3 mcg/kg/hr, 20.34 mls/hr Lorazepam (Ativan) 0.5 mg IVP Q3H PRN PRN Reason: Anxiety Last Admin: 04/18/17 03:30 Dose: 0.5 mg Ondansetron HCl (Zofran Inj) 4 mg IVP Q6H PRN PRN Reason: Nausea/Vomiting Last Admin: 04/11/17 21:39 Dose: 4 mg Saccharomyces Boulardii (Florastor) 250 mg PO BID [facility] Last Admin: 04/19/17 09:30 Dose: Not Given Thiamine HCl (Vitamin B1 Tab) 100 mg PO DAILY [facility] Last Admin: 04/19/17 09:30 Dose: Not Given - Labs Labs: 04/19/17 06:12 04/19/17 06:12 PT 13.0 SECONDS (9.7-12.2) H 04/18/17 06:44 INR 1.2 04/18/17 06:44 APTT 30 SECONDS (21-34) 04/17/17 06:38 Attending/Attestation - Attestation I have personally seen and examined this patient.: Yes I have fully participated in the care of the patient.: Yes I have reviewed all pertinent clinical information, including history, physical exam and plan: Yes Notes (Text): 04/19/17 10:49 I have seen and examined patient with GI fellow. She remains in critical care unit, intubated and sedated following surgical intervention with gastrojejunostomy performed yesterday. Patient appears uncomfortable, remains tachycardic. Low grade temperature noted from this morning. Schizophrenia Abdominal pain - acute pancreatitis, resolved ? SMA syndrome based on clinical presentation and CT imaging s/p gastrojejunostomy with ileostomy placement, POD #1 - Bloody output noted in ostomy bag and L sided TOBI drain, follow up surgical recommendations - Continue to monitor H/H - Pain control, supportive care - Continue with antibiotic therapy as per ID - Follow up nephrology recommendations regarding ongoing dialysis - No further planned GI intervention, will sign off case. Please reconsult as necessary, thank you.
[2017-04-19] MEDS: Saccharomyces Boulardi 250 mg Cap PO SCH ×2 (09:30→17:45)
[2017-04-19] MEDS ORDERED: Magnesium Sulfate 1 gm in D5W 1 GM/100 ML BAG IVPB ONE (09:48)
--- NOTE | 2017-04-19 10:04 | RAD ---
Chest x-ray single frontal view History: Fever. Comparison: 04/18/2017 Findings: Endotracheal tube somewhat low lying approximately 8 millimeters above the guy. Retraction approximately 1 centimeter may be helpful. NG tube extending into the stomach. Mild venous congestion. Mild patchy increased markings at the left lung with a question of a trace left pleural effusion. Correlation with lateral view may be helpful. Heart size within normal limits. Impression: Mild patchy increased markings at the left lung with a question of a trace left pleural effusion. Correlation with lateral view may be helpful.
--- NOTE | 2017-04-19 10:15 | RAD ---
Chest x-ray single frontal view History: Intubated. Comparison: 04/18/2017 Findings: Endotracheal tube low lying approximately 5 millimeters above the guy. NG tube extending into the stomach. Mild venous congestion. Mild patchy increased markings at the left lung base. Heart size within normal limits. Impression No significant interval change.
--- NOTE | 2017-04-19 10:50 | CP.PCM.CON ---
History of Present Illness - History of Present Illness History of Present Illness: IMP Hematuria, post catheter trauma Full note to be dictated YS Please see dictated report Past Patient History - Past Medical History & Family History Past Medical History?: Yes - Past Social History Smoking Status: Never Smoked Chewing Tobacco Use: No Cigar Use: No Home Situation {Lives}: With Family - CARDIAC Hx Cardiac Disorders: No - PULMONARY Hx Respiratory Disorders: No - NEUROLOGICAL Other/Comment: NEURO / DEVELOPMENTAL PROBLEM - HEENT Hx HEENT Problems: No - RENAL Hx Chronic Kidney Disease: No - ENDOCRINE/METABOLIC Hx Endocrine Disorders: No - HEMATOLOGICAL/ONCOLOGICAL Hx Blood Disorders: No - INTEGUMENTARY Hx Dermatological Problems: No - MUSCULOSKELETAL/RHEUMATOLOGICAL Hx Musculoskeletal Disorders: No Hx Falls: No - GASTROINTESTINAL Hx Gastrointestinal Disorders: No - GENITOURINARY/GYNECOLOGICAL Hx Genitourinary Disorders: No - PSYCHIATRIC Hx Depression: Yes Hx Schizophrenia: Yes Hx Substance Use: No - SURGICAL HISTORY Hx Surgeries: No - ANESTHESIA Hx Anesthesia: No Meds Allergies/Adverse Reactions: Allergies Allergy/AdvReac Type Severity Reaction Status Date / Time No Known Allergies Allergy Unverified 03/27/17 21:28 - Medications Medications: Current Medications Acetaminophen (Tylenol 325 Mg Supp) 325 mg SC Q4 PRN PRN Reason: Fever >100.4 F Last Admin: 04/18/17 20:13 Dose: 325 mg Albuterol/Ipratropium (Duoneb 3 Mg/0.5 Mg (3 Ml) Ud) 3 ml INH RQ6 [facility] Last Admin: 04/19/17 07:10 Dose: 3 ml Ascorbic Acid (Vitamin C 500 Mg Tab) 500 mg PO DAILY [facility] Last Admin: 04/19/17 09:30 Dose: Not Given Famotidine (Pepcid) 20 mg IVP Q12 [facility] Last Admin: 04/18/17 21:41 Dose: 20 mg Haloperidol Lactate (Haldol) 1 mg IVP BID PRN PRN Reason: Agitation Last Admin: 04/17/17 00:00 Dose: 1 mg Hydromorphone HCl (Dilaudid) 0.5 mg IVP Q3 PRN PRN Reason: Pain, moderate (4-7) Last Admin: 04/17/17 20:17 Dose: 0.5 mg Hydromorphone HCl (Dilaudid) 1 mg IVP Q3 PRN PRN Reason: Pain, severe (8-10) Last Admin: 04/18/17 14:50 Dose: 1 mg Piperacillin Sod/Tazobactam Sod (Zosyn 2.25 Gm Iv Premix) 2.25 gm in 50 mls @ 100 mls/hr IVPB Q8H [facility] Last Admin: 04/19/17 01:07 Dose: 100 mls/hr Midazolam HCl 100 mg/ Sodium (Chloride) 100 mls @ 1.35 mls/hr IV .Q24H AGUSTIN; 0.02 MG/KG/HR PRN Reason: Protocol Last Admin: 04/19/17 07:47 Dose: 0.08 mg/kg/hr, 5.42 mls/hr Fentanyl Citrate 2,500 mcg/ (Sodium Chloride) 250 mls @ 13.56 mls/hr IV .[id number] AGUSTIN; 2 MCG/KG/HR PRN Reason: Protocol Last Admin: 04/19/17 09:14 Dose: 3 mcg/kg/hr, 20.34 mls/hr Lorazepam (Ativan) 0.5 mg IVP Q3H PRN PRN Reason: Anxiety Last Admin: 04/18/17 03:30 Dose: 0.5 mg Ondansetron HCl (Zofran Inj) 4 mg IVP Q6H PRN PRN Reason: Nausea/Vomiting Last Admin: 04/11/17 21:39 Dose: 4 mg Saccharomyces Boulardii (Florastor) 250 mg PO BID [facility] Last Admin: 04/19/17 09:30 Dose: Not Given Thiamine HCl (Vitamin B1 Tab) 100 mg PO DAILY [facility] Last Admin: 04/19/17 09:30 Dose: Not Given Results - Vital Signs Recent Vital Signs: Last Vital Signs Temp 101.0 F H 04/19/17 09:35 Pulse 134 H 04/19/17 09:35 Resp 14 04/19/17 09:35 BP 104/68 04/19/17 10:25 Pulse Ox 100 04/19/17 09:00 - Labs Result Diagrams: 04/23/17 06:29 04/23/17 06:29 Labs: Laboratory Results - last 24 hr 04/18/17 04/18/17 04/18/17 14:30 16:17 16:17 WBC 24.5 H RBC 3.55 L Hgb 10.0 L Hct 30.3 L MCV 85.5 MCH 28.1 MCHC 32.9 L RDW 15.5 H Plt Count 373 MPV 7.7 Neut % (Auto) 85.0 H Lymph % (Auto) 4.5 L Eaton % (Auto) 9.4 Eos % (Auto) 0.8 Baso % (Auto) 0.3 Neut # 20.8 H Lymph # 1.1 Eaton # 2.3 H Eos # 0.2 Baso # 0.1 Neutrophils % (Manual) 84 H Band Neutrophils % 2 Lymphocytes % (Manual) 6 L Monocytes % (Manual) 6 Eosinophils % (Manual) 2 Platelet Estimate Normal Polychromasia Slight Hypochromasia (manual) Slight Anisocytosis (manual) Slight Microcytosis (manual) Ovalocytes Puncture Site Lb pCO2 44 pO2 501 H HCO3 23.7 ABG pH 7.35 ABG Total CO2 25.7 ABG O2 Saturation 99.1 H ABG Base Excess -1.5 ABG Hemoglobin 12.3 ABG Carboxyhemoglobin 1.0 POC ABG HHb (Measured) 0.9 ABG Methemoglobin 1.4 Daniel Test Na A-a O2 Difference 157.0 Respiratory Index 0.3 Hgb O2 Saturation 96.7 Vent Mode Mechanical Rate 12 FiO2 100.0 Tidal Volume 450 PEEP 3 Crit Value Called To Dr hammer Crit Value Called By Selvin cabral supervisor lace tearing Crit Value Read Back Y Blood Gas Notified Time 1445 Sodium 134 Potassium 3.9 Chloride 101 Carbon Dioxide 26 Anion Gap 11 BUN 31 H Creatinine 3.9 H Est GFR ( Amer) 16 Est GFR (Non-Af Amer) 13 POC Glucose (mg/dL) Random Glucose 103 Calcium 7.4 L Phosphorus Magnesium Total Bilirubin 1.1 AST 38 H D ALT 26 Alkaline Phosphatase 79 Total Protein 5.3 L Albumin 2.6 L Globulin 2.7 Albumin/Globulin Ratio 1.0 04/18/17 04/18/17 04/19/17 18:02 23:53 05:16 WBC RBC Hgb Hct MCV MCH MCHC RDW Plt Count MPV Neut % (Auto) Lymph % (Auto) Eaton % (Auto) Eos % (Auto) Baso % (Auto) Neut # Lymph # Eaton # Eos # Baso # Neutrophils % (Manual) Band Neutrophils % Lymphocytes % (Manual) Monocytes % (Manual) Eosinophils % (Manual) Platelet Estimate Polychromasia Hypochromasia (manual) Anisocytosis (manual) Microcytosis (manual) Ovalocytes Puncture Site Rr pCO2 31 L pO2 186 H HCO3 25.9 ABG pH 7.50 H ABG Total CO2 25.2 ABG O2 Saturation 99.2 H ABG Base Excess 1.2 ABG Hemoglobin 8.7 L ABG Carboxyhemoglobin 1.6 H POC ABG HHb (Measured) 0.8 ABG Methemoglobin 1.4 Daniel Test Pos A-a O2 Difference 132.0 Respiratory Index 0.7 Hgb O2 Saturation 96.2 Vent Mode Prvc Mechanical Rate 18 FiO2 50.0 Tidal Volume 450 PEEP 6 Crit Value Called To Crit Value Called By Crit Value Read Back Blood Gas Notified Time Sodium Potassium Chloride Carbon Dioxide Anion Gap BUN Creatinine Est GFR ( Amer) Est GFR (Non-Af Amer) POC Glucose (mg/dL) 90 82 Random Glucose Calcium Phosphorus Magnesium Total Bilirubin AST ALT Alkaline Phosphatase Total Protein Albumin Globulin Albumin/Globulin Ratio 04/19/17 04/19/17 04/19/17 05:25 06:12 06:12 WBC 17.3 H RBC 3.14 L Hgb 8.9 L Hct 26.9 L MCV 85.7 MCH 28.5 MCHC 33.2 RDW 15.5 H Plt Count 349 MPV 8.3 Neut % (Auto) 76.5 H Lymph % (Auto) 8.5 L Eaton % (Auto) 12.6 H Eos % (Auto) 2.1 Baso % (Auto) 0.3 Neut # 13.2 H Lymph # 1.5 Eaton # 2.2 H Eos # 0.4 Baso # 0.1 Neutrophils % (Manual) 90 H Band Neutrophils % Lymphocytes % (Manual) 3 L Monocytes % (Manual) 7 Eosinophils % (Manual) Platelet Estimate Normal Polychromasia Slight Hypochromasia (manual) Slight Anisocytosis (manual) Slight Microcytosis (manual) Slight Ovalocytes Slight Puncture Site pCO2 pO2 HCO3 ABG pH ABG Total CO2 ABG O2 Saturation ABG Base Excess ABG Hemoglobin ABG Carboxyhemoglobin POC ABG HHb (Measured) ABG Methemoglobin Daniel Test A-a O2 Difference Respiratory Index Hgb O2 Saturation Vent Mode Mechanical Rate FiO2 Tidal Volume PEEP Crit Value Called To Crit Value Called By Crit Value Read Back Blood Gas Notified Time Sodium 134 Potassium 3.8 Chloride 103 Carbon Dioxide 22 Anion Gap 12 BUN 35 H Creatinine 4.1 H Est GFR ( Amer) 15 Est GFR (Non-Af Amer) 12 POC Glucose (mg/dL) 90 Random Glucose 85 Calcium 7.1 L Phosphorus 3.4 Magnesium 1.6 Total Bilirubin 1.2 AST 38 H ALT 24 Alkaline Phosphatase 66 Total Protein 4.8 L Albumin 2.4 L Globulin 2.4 Albumin/Globulin Ratio 1.0
[2017-04-19] MEDS ORDERED: Epoetin Alfa 10,000 unit/ml Dialysis IV ONE (12:49)
--- NOTE | 2017-04-19 12:50 | CP.PCM.PN ---
Subjective - Date & Time of Evaluation Date of Evaluation: 04/19/17 Time of Evaluation: 12:47 - Subjective Subjective: seen and examined remains intubated s/p hd, 1.1L uf bp stable s/p Asim en Y surgery Objective - Vital Signs/Intake and Output Vital Signs (last 24 hours): Temp Pulse Resp BP Pulse Ox 99.1 F 125 H 18 111/81 100 04/19/17 12:00 04/19/17 12:00 04/19/17 12:00 04/19/17 12:10 04/19/17 12:00 Intake and Output: 04/19/17 04/19/17 06:59 18:59 Intake Total 1797.9 284.2 Output Total 655 280 Balance 1142.9 4.2 - Medications Medications: Current Medications Acetaminophen (Tylenol 325 Mg Supp) 325 mg ME Q4 PRN PRN Reason: Fever >100.4 F Last Admin: 04/18/17 20:13 Dose: 325 mg Albuterol/Ipratropium (Duoneb 3 Mg/0.5 Mg (3 Ml) Ud) 3 ml INH RQ6 [facility] Last Admin: 04/19/17 07:10 Dose: 3 ml Ascorbic Acid (Vitamin C 500 Mg Tab) 500 mg PO DAILY [facility] Last Admin: 04/19/17 09:30 Dose: Not Given Famotidine (Pepcid) 20 mg IVP Q12 [facility] Last Admin: 04/19/17 10:57 Dose: 20 mg Haloperidol Lactate (Haldol) 1 mg IVP BID PRN PRN Reason: Agitation Last Admin: 04/17/17 00:00 Dose: 1 mg Hydromorphone HCl (Dilaudid) 0.5 mg IVP Q3 PRN PRN Reason: Pain, moderate (4-7) Last Admin: 04/17/17 20:17 Dose: 0.5 mg Hydromorphone HCl (Dilaudid) 1 mg IVP Q3 PRN PRN Reason: Pain, severe (8-10) Last Admin: 04/18/17 14:50 Dose: 1 mg Piperacillin Sod/Tazobactam Sod (Zosyn 2.25 Gm Iv Premix) 2.25 gm in 50 mls @ 100 mls/hr IVPB Q8H [facility] Last Admin: 04/19/17 01:07 Dose: 100 mls/hr Midazolam HCl 100 mg/ Sodium (Chloride) 100 mls @ 1.35 mls/hr IV .Q24H AGUSTIN; 0.02 MG/KG/HR PRN Reason: Protocol Last Admin: 04/19/17 07:47 Dose: 0.08 mg/kg/hr, 5.42 mls/hr Fentanyl Citrate 2,500 mcg/ (Sodium Chloride) 250 mls @ 13.56 mls/hr IV .[id number] AGUSTIN; 2 MCG/KG/HR PRN Reason: Protocol Last Admin: 04/19/17 09:14 Dose: 3 mcg/kg/hr, 20.34 mls/hr Multivitamins/Vitamin C 10 ml/Chromium/Copper/Manganese/Zinc 1 ml/ Amino Acids/ Electrolytes/Dextrose 1,011 mls @ 63 mls/hr IV .Q16H3M ONE Stop: 04/20/17 10:02 Chromium/Copper/Manganese/Zinc 1 ml/ Amino Acids/Electrolytes/Dextrose 1,001 mls @ 63 mls/hr IV .[id number] ONE Stop: 04/21/17 01:53 Fat Emulsion Intravenous (Intralipid 20%) 250 mls @ 42 mls/hr IV 1800 ONE Stop: 04/19/17 23:57 Lorazepam (Ativan) 0.5 mg IVP Q3H PRN PRN Reason: Anxiety Last Admin: 04/18/17 03:30 Dose: 0.5 mg Ondansetron HCl (Zofran Inj) 4 mg IVP Q6H PRN PRN Reason: Nausea/Vomiting Last Admin: 04/11/17 21:39 Dose: 4 mg Saccharomyces Boulardii (Florastor) 250 mg PO BID [facility] Last Admin: 04/19/17 09:30 Dose: Not Given Thiamine HCl (Vitamin B1 Tab) 100 mg PO DAILY [facility] Last Admin: 04/19/17 09:30 Dose: Not Given - Labs Labs: 04/19/17 06:12 04/19/17 06:12 PT 13.0 SECONDS (9.7-12.2) H 04/18/17 06:44 INR 1.2 04/18/17 06:44 APTT 30 SECONDS (21-34) 04/17/17 06:38 - Constitutional Appears: Chronically Ill (intubated sedated) - Head Exam Head Exam: ATRAUMATIC - Eye Exam Eye Exam: Normal appearance - ENT Exam ENT Exam: Normal Exam (ET tube in place) - Neck Exam Neck Exam: Normal Inspection - Respiratory Exam Respiratory Exam: NORMAL BREATHING PATTERN (b/l mechanical vent sounds) - Cardiovascular Exam Cardiovascular Exam: Tachycardia, REGULAR RHYTHM - GI/Abdominal Exam GI & Abdominal Exam: Soft (distended. ileostomy, abdominal drain) - Extremities Exam Extremities Exam: Normal Inspection, Pedal Edema - Neurological Exam Neurological Exam: absent: Alert, Awake - Skin Skin Exam: Intact Assessment and Plan (1) JIMBO (acute kidney injury) Status: Acute (2) Acute pancreatitis Status: Acute (3) SBO (small bowel obstruction) Status: Acute (4) Mental retardation Status: Acute (5) Schizophrenia Status: Acute - Assessment and Plan (Free Text) Assessment: maintain hd, electrolytes acceptable perry supportive care
--- NOTE | 2017-04-19 14:59 | CP.PCM.PN ---
Subjective - Date & Time of Evaluation Date of Evaluation: 04/19/17 Time of Evaluation: 14:56 - Subjective Subjective: Surgery Pt s&e. Pt underwent surgery yesterday. Pt intubated and sedated. Objective - Vital Signs/Intake and Output Vital Signs (last 24 hours): Temp Pulse Resp BP Pulse Ox 99.1 F 126 H 14 105/68 100 04/19/17 12:00 04/19/17 14:02 04/19/17 14:02 04/19/17 14:03 04/19/17 14:02 Intake and Output: 04/19/17 04/19/17 06:59 18:59 Intake Total 1797.9 489.4 Output Total 655 400 Balance 1142.9 89.4 - Medications Medications: Current Medications Acetaminophen (Tylenol 325 Mg Supp) 325 mg HI Q4 PRN PRN Reason: Fever >100.4 F Last Admin: 04/18/17 20:13 Dose: 325 mg Albuterol/Ipratropium (Duoneb 3 Mg/0.5 Mg (3 Ml) Ud) 3 ml INH RQ6 [facility] Last Admin: 04/19/17 07:10 Dose: 3 ml Ascorbic Acid (Vitamin C 500 Mg Tab) 500 mg PO DAILY [facility] Last Admin: 04/19/17 09:30 Dose: Not Given Famotidine (Pepcid) 20 mg IVP Q12 [facility] Last Admin: 04/19/17 10:57 Dose: 20 mg Haloperidol Lactate (Haldol) 1 mg IVP BID PRN PRN Reason: Agitation Last Admin: 04/17/17 00:00 Dose: 1 mg Hydromorphone HCl (Dilaudid) 0.5 mg IVP Q3 PRN PRN Reason: Pain, moderate (4-7) Last Admin: 04/17/17 20:17 Dose: 0.5 mg Hydromorphone HCl (Dilaudid) 1 mg IVP Q3 PRN PRN Reason: Pain, severe (8-10) Last Admin: 04/18/17 14:50 Dose: 1 mg Piperacillin Sod/Tazobactam Sod (Zosyn 2.25 Gm Iv Premix) 2.25 gm in 50 mls @ 100 mls/hr IVPB Q8H [facility] Last Admin: 04/19/17 13:11 Dose: 100 mls/hr Midazolam HCl 100 mg/ Sodium (Chloride) 100 mls @ 1.35 mls/hr IV .Q24H AGUSTIN; 0.02 MG/KG/HR PRN Reason: Protocol Last Admin: 04/19/17 07:47 Dose: 0.08 mg/kg/hr, 5.42 mls/hr Fentanyl Citrate 2,500 mcg/ (Sodium Chloride) 250 mls @ 13.56 mls/hr IV .[id number] AGUSTIN; 2 MCG/KG/HR PRN Reason: Protocol Last Admin: 04/19/17 09:14 Dose: 3 mcg/kg/hr, 20.34 mls/hr Multivitamins/Vitamin C 10 ml/Chromium/Copper/Manganese/Zinc 1 ml/ Amino Acids/ Electrolytes/Dextrose 1,011 mls @ 63 mls/hr IV .Q16H3M ONE Stop: 04/20/17 10:02 Chromium/Copper/Manganese/Zinc 1 ml/ Amino Acids/Electrolytes/Dextrose 1,001 mls @ 63 mls/hr IV .[id number] ONE Stop: 04/21/17 01:53 Fat Emulsion Intravenous (Intralipid 20%) 250 mls @ 42 mls/hr IV 1800 ONE Stop: 04/19/17 23:57 Lorazepam (Ativan) 0.5 mg IVP Q3H PRN PRN Reason: Anxiety Last Admin: 04/18/17 03:30 Dose: 0.5 mg Ondansetron HCl (Zofran Inj) 4 mg IVP Q6H PRN PRN Reason: Nausea/Vomiting Last Admin: 04/11/17 21:39 Dose: 4 mg Saccharomyces Boulardii (Florastor) 250 mg PO BID [facility] Last Admin: 04/19/17 09:30 Dose: Not Given Thiamine HCl (Vitamin B1 Tab) 100 mg PO DAILY [facility] Last Admin: 04/19/17 09:30 Dose: Not Given - Labs Labs: 04/19/17 06:12 04/19/17 06:12 PT 13.0 SECONDS (9.7-12.2) H 04/18/17 06:44 INR 1.2 04/18/17 06:44 APTT 30 SECONDS (21-34) 04/17/17 06:38 - Constitutional Appears: Non-toxic - Head Exam Head Exam: ATRAUMATIC, NORMAL INSPECTION, NORMOCEPHALIC - Eye Exam Eye Exam: EOMI, Normal appearance, PERRL Pupil Exam: NORMAL ACCOMODATION, PERRL - ENT Exam ENT Exam: Mucous Membranes Moist, Normal Exam - Neck Exam Neck Exam: Full ROM, Normal Inspection. absent: Lymphadenopathy - Respiratory Exam Respiratory Exam: Respiratory Distress. absent: NORMAL BREATHING PATTERN Additional comments: Intubated. Sedated. - Cardiovascular Exam Cardiovascular Exam: Tachycardia - GI/Abdominal Exam GI & Abdominal Exam: Soft, Normal Bowel Sounds. absent: Distended, Firm, Guarding, Rigid, Tenderness Additional comments: Incision C/D/I. TOBI in place: SS fluids. Jejunostomy feeding tube in place: Jejunostomy pink. - Extremities Exam Extremities Exam: absent: Joint Swelling, Pedal Edema - Back Exam Back Exam: NORMAL INSPECTION - Neurological Exam Neurological Exam: Altered. absent: Awake - Skin Skin Exam: Dry, Intact, Normal Color, Warm Assessment and Plan - Assessment and Plan (Free Text) Assessment: POD 1 s/p ex lap Frida en Y gastrojejunostomy and feeding jejunostomy - Ok to start tube feed. -Pain control -MOnitor BM -ICU management DW Dr. Mendez
[2017-04-19 17:45] LABS: BASO # 0.1 K/uL (0.0-0.2); BASO % 0.3 % (0.0-2.0); EOS # 0.9 K/uL (0.0-0.7); EOS % 4.9 % (0.0-4.0); LYMPH # 1.4 K/uL (1.0-4.3); LYMPH % 8.2 % (20.0-40.0); MEAN CELL VOLUME 84.6 fL (81.0-99.0); MEAN CORPUSCULAR HEMOGLOBIN 28.3 pg (27.0-31.0); MEAN CORPUSCULAR HGB CONC 33.5 g/dL (33.0-37.0); MEAN PLATELET VOLUME 7.7 fL (7.2-11.7); MONO # 2.6 K/uL (0.0-0.8); MONO % 14.7 % (0.0-10.0); NEUT # 12.7 K/uL (1.8-7.0); NEUT % 71.9 % (50.0-75.0); PLATELET COUNT 371 K/uL (130-400); RBC 3.16 Mil/uL (3.80-5.20); RED CELL DISTRIBUTION WIDTH 15.5 % (11.5-14.5); WHITE BLOOD COUNT 17.6 K/uL (4.8-10.8)
[2017-04-19] MEDS ORDERED: TPN #9 IV ONE (18:00)
[2017-04-19] MEDS ORDERED: Fat Emulsion 20% IV 250 ML IV ONE (18:00)
[2017-04-19 18:48] LABS: BANDS 1 % (0-2); EOSINOPHIL 3 % (0-4); LYMPHOCYTE 7 % (20-40); MONOCYTE 9 % (0-10); NEUTROPHIL 80 % (50-75); PLATELET CLUMPS PRESENT; PLATELET ESTIMATE NORMAL (NORMAL); TOTAL CELLS COUNTED 100
[2017-04-20] MEDS: Albuterol-Ipratrop 3 mg / 0.5 (3 ml) UD INH SCH ×4 (01:12→19:40)
[2017-04-20] MEDS: Piperacill/Tazo 2.25gm in Dex 2.25 GM/50 ML BAG IVPB SCH ×2 (01:45→10:09)
[2017-04-20] MEDS: Midazolam 50 mg/10 ml 100 MG in Sodium Chloride 0.9% 80 ML IV SCH ×2 (03:30→14:00)
[2017-04-20 06:08] LABS: ABG ALLEN TEST POS; ARTERIAL BLOOD GAS HEMOGLOBIN 13.1 g/dL (11.7-17.4); ARTERIAL BLOOD GAS O2 SAT 99.1 % (95-98); ARTERIAL BLOOD GAS PCO2 34 mm/Hg (35-45); ARTERIAL BLOOD GAS PH 7.41 (7.35-7.45); ARTERIAL BLOOD GAS PO2 166 mm/Hg (80-100); ARTERIAL BLOOD GAS TCO2 22.6 mmol/L (22-28)
[2017-04-20 06:55] LABS: BASO % 0.3 % (0.0-2.0); EOS # 1.1 K/uL (0.0-0.7); EOS % 6.9 % (0.0-4.0); HEMOGLOBIN 8.7 g/dL (11.0-16.0); LYMPH # 1.5 K/uL (1.0-4.3); LYMPH % 9.8 % (20.0-40.0); MEAN CELL VOLUME 86.2 fL (81.0-99.0); MEAN CORPUSCULAR HEMOGLOBIN 29.1 pg (27.0-31.0); MEAN CORPUSCULAR HGB CONC 33.7 g/dL (33.0-37.0); MEAN PLATELET VOLUME 8.4 fL (7.2-11.7); MONO # 2.3 K/uL (0.0-0.8); MONO % 14.6 % (0.0-10.0); NEUT # 10.8 K/uL (1.8-7.0); NEUT % 68.4 % (50.0-75.0); PLATELET COUNT 374 K/uL (130-400); RBC 2.99 Mil/uL (3.80-5.20); RED CELL DISTRIBUTION WIDTH 15.9 % (11.5-14.5); WHITE BLOOD COUNT 15.7 K/uL (4.8-10.8)
[2017-04-20 07:25] LABS: ALB/GLOB RATIO 0.9 (1.0-2.1); ALBUMIN 2.6 g/dL (3.5-5.0); CALCIUM 7.4 mg/dl (8.6-10.4)
[2017-04-20 08:33] LABS: ANISOCYTOSIS SLIGHT; EOSINOPHIL 4 % (0-4); HYPOCHROMIC SLIGHT; LYMPHOCYTE 5 % (20-40); MONOCYTE 14 % (0-10); NEUTROPHIL 77 % (50-75); PLATELET ESTIMATE NORMAL (NORMAL); POLYCHROMIC SLIGHT; TOTAL CELLS COUNTED 100
[2017-04-20] MEDS ORDERED: TPN #10 IV ONE (10:00)
--- NOTE | 2017-04-20 10:02 | RAD ---
HISTORY: intubated COMPARISON: Portable chest radiograph 04/19/2017. FINDINGS: Endotracheal and nasogastric tubes are unchanged in position. Limited left basilar atelectasis or infiltrate persists but has not increased. Linear atelectasis identified at the inferior right lung zone in the interval. LUNGS: Limited left basilar atelectasis or infiltrate persists but has not increased. Linear atelectasis identified at the inferior right lung zone in the interval. No definitive right-sided infiltrate at this time. PLEURA: No definitive pleural effusion appreciated bilaterally, or pneumothorax. CARDIOVASCULAR: Cardiac silhouette appears stable. Diminishing pulmonary venous congestion identified. OSSEOUS STRUCTURES: No significant abnormalities. VISUALIZED UPPER ABDOMEN: Surgical clips again seen in the abdominal skin anteriorly. OTHER FINDINGS: None. IMPRESSION: Diminishing pulmonary venous congestion with residual atelectasis or infiltrate at the left base unchanged.
[2017-04-20] MEDS: Saccharomyces Boulardi 250 mg Cap PO SCH ×2 (10:07→17:49)
[2017-04-20] MEDS: Acetaminophen 650mg/20.3ml solution UD PO PRN (10:10)
--- NOTE | 2017-04-20 10:53 | CP.PCM.PN ---
Subjective - Date & Time of Evaluation Date of Evaluation: 04/20/17 Time of Evaluation: 10:53 - Subjective Subjective: General Surgery Note for Dr. Mendez Patient seen and examined at bedside. No acute event overnight. Patient is intubated and sedated. ROS obtainable. Urine ouput 400 cc/12hrs. Mike drain 530cc/ 12hrs. jejunostomy had 235 cc of output overnight. Objective - Vital Signs/Intake and Output Vital Signs (last 24 hours): Temp Pulse Resp BP Pulse Ox 100.7 F H 126 H 14 101/65 100 04/20/17 10:10 04/20/17 08:29 04/20/17 08:29 04/20/17 08:29 04/20/17 08:29 Intake and Output: 04/20/17 04/20/17 06:59 18:59 Intake Total 1951.0 465.4 Output Total 795 40 Balance 1156.0 425.4 - Medications Medications: Current Medications Acetaminophen (Tylenol 650mg/20.3ml Solution Ud) 650 mg PO Q6 PRN PRN Reason: Temperature Last Admin: 04/20/17 10:10 Dose: 650 mg Acetaminophen (Tylenol 650 Mg Supp) 650 mg IN Q4 PRN PRN Reason: Fever >100.4 F Albuterol/Ipratropium (Duoneb 3 Mg/0.5 Mg (3 Ml) Ud) 3 ml INH RQ6 [facility] Last Admin: 04/20/17 07:00 Dose: 3 ml Ascorbic Acid (Vitamin C 500 Mg Tab) 500 mg PO DAILY [facility] Last Admin: 04/20/17 10:06 Dose: 500 mg Haloperidol Lactate (Haldol) 1 mg IVP BID PRN PRN Reason: Agitation Last Admin: 04/17/17 00:00 Dose: 1 mg Hydromorphone HCl (Dilaudid) 0.5 mg IVP Q3 PRN PRN Reason: Pain, moderate (4-7) Last Admin: 04/17/17 20:17 Dose: 0.5 mg Hydromorphone HCl (Dilaudid) 1 mg IVP Q3 PRN PRN Reason: Pain, severe (8-10) Last Admin: 04/18/17 14:50 Dose: 1 mg Piperacillin Sod/Tazobactam Sod (Zosyn 2.25 Gm Iv Premix) 2.25 gm in 50 mls @ 100 mls/hr IVPB Q8H [facility] Last Admin: 04/20/17 10:09 Dose: 100 mls/hr Midazolam HCl 100 mg/ Sodium (Chloride) 100 mls @ 1.35 mls/hr IV .Q24H AGUSTIN; 0.02 MG/KG/HR PRN Reason: Protocol Last Titration: 04/20/17 08:00 Dose: 0 mg/kg/hr, 0 mls/hr Fentanyl Citrate 2,500 mcg/ (Sodium Chloride) 250 mls @ 13.56 mls/hr IV .[id number] AGUSTIN; 2 MCG/KG/HR PRN Reason: Protocol Last Titration: 04/20/17 08:30 Dose: 1 mcg/kg/hr, 6.78 mls/hr Chromium/Copper/Manganese/Zinc 1 ml/ Amino Acids/Electrolytes/Dextrose 1,001 mls @ 63 mls/hr IV .[id number] ONE Stop: 04/21/17 01:53 Last Admin: 04/20/17 10:11 Dose: 63 mls/hr Lorazepam (Ativan) 0.5 mg IVP Q3H PRN PRN Reason: Anxiety Last Admin: 04/18/17 03:30 Dose: 0.5 mg Ondansetron HCl (Zofran Inj) 4 mg IVP Q6H PRN PRN Reason: Nausea/Vomiting Last Admin: 04/11/17 21:39 Dose: 4 mg Pantoprazole Sodium (Protonix Inj) 20 mg IVP BID [facility] Last Admin: 04/20/17 10:07 Dose: 20 mg Saccharomyces Boulardii (Florastor) 250 mg PO BID [facility] Last Admin: 04/20/17 10:07 Dose: 250 mg Thiamine HCl (Vitamin B1 Tab) 100 mg PO DAILY [facility] Last Admin: 04/20/17 10:08 Dose: 100 mg - Labs Labs: 04/20/17 06:41 04/20/17 06:41 PT 13.0 SECONDS (9.7-12.2) H 04/18/17 06:44 INR 1.2 04/18/17 06:44 APTT 30 SECONDS (21-34) 04/17/17 06:38 - Constitutional Appears: No Acute Distress - Head Exam Head Exam: ATRAUMATIC, NORMOCEPHALIC - Eye Exam Eye Exam: Normal appearance - Respiratory Exam Additional comments: intubated and sedated on vent support (450, 5, 14, 35%) - Cardiovascular Exam Cardiovascular Exam: Tachycardia - GI/Abdominal Exam GI & Abdominal Exam: Soft. absent: Firm, Guarding, Tenderness, Rebound Additional comments: Incision clean dry and intact MIKE in place Jejunostomy feeding tube in place Jejunostomy pink - Neurological Exam Neurological Exam: Altered - Psychiatric Exam Psychiatric exam: Flat Affect - Skin Skin Exam: Dry, Intact, Normal Color, Warm Assessment and Plan - Assessment and Plan (Free Text) Plan: 36 F s/p ex lap Frida en Y gastrojejunostomy and feeding jejunostomy POD#2 -Tube feeds -Pain control -Monitor bowel function -Strict I's & O's -ICU management -Discussed with Dr. Andrea Wells PGY1
--- NOTE | 2017-04-20 12:43 | CP.PCM.PN ---
Subjective - Date & Time of Evaluation Date of Evaluation: 04/20/17 Time of Evaluation: 12:40 - Subjective Subjective: s/p dialysis 04/19- UF 1500ml Remains on vent; responsive to stimulation EG=858 ml /24hrs TPN being transitioned to JEG feeds Objective - Vital Signs/Intake and Output Vital Signs (last 24 hours): Temp Pulse Resp BP Pulse Ox 100.7 F H 144 H 14 104/62 99 04/20/17 10:10 04/20/17 11:29 04/20/17 11:29 04/20/17 11:29 04/20/17 11:29 Intake and Output: 04/20/17 04/20/17 06:59 18:59 Intake Total 1951.0 785.3 Output Total 795 200 Balance 1156.0 585.3 - Medications Medications: Current Medications Acetaminophen (Tylenol 650mg/20.3ml Solution Ud) 650 mg PO Q6 PRN PRN Reason: Temperature Last Admin: 04/20/17 10:10 Dose: 650 mg Acetaminophen (Tylenol 650 Mg Supp) 650 mg PA Q4 PRN PRN Reason: Fever >100.4 F Albuterol/Ipratropium (Duoneb 3 Mg/0.5 Mg (3 Ml) Ud) 3 ml INH RQ6 AGUSTIN Last Admin: 04/20/17 07:00 Dose: 3 ml Ascorbic Acid (Vitamin C 500 Mg Tab) 500 mg PO DAILY [facility] Last Admin: 04/20/17 10:06 Dose: 500 mg Haloperidol Lactate (Haldol) 1 mg IVP BID PRN PRN Reason: Agitation Last Admin: 04/17/17 00:00 Dose: 1 mg Hydromorphone HCl (Dilaudid) 0.5 mg IVP Q3 PRN PRN Reason: Pain, moderate (4-7) Last Admin: 04/17/17 20:17 Dose: 0.5 mg Hydromorphone HCl (Dilaudid) 1 mg IVP Q3 PRN PRN Reason: Pain, severe (8-10) Last Admin: 04/18/17 14:50 Dose: 1 mg Piperacillin Sod/Tazobactam Sod (Zosyn 2.25 Gm Iv Premix) 2.25 gm in 50 mls @ 100 mls/hr IVPB Q8H [facility] Last Admin: 04/20/17 10:09 Dose: 100 mls/hr Midazolam HCl 100 mg/ Sodium (Chloride) 100 mls @ 1.35 mls/hr IV .Q24H AGUSTIN; 0.02 MG/KG/HR PRN Reason: Protocol Last Titration: 04/20/17 08:00 Dose: 0 mg/kg/hr, 0 mls/hr Fentanyl Citrate 2,500 mcg/ (Sodium Chloride) 250 mls @ 13.56 mls/hr IV .[id number] AGUSTIN; 2 MCG/KG/HR PRN Reason: Protocol Last Titration: 04/20/17 08:30 Dose: 1 mcg/kg/hr, 6.78 mls/hr Chromium/Copper/Manganese/Zinc 1 ml/ Amino Acids/Electrolytes/Dextrose 1,001 mls @ 63 mls/hr IV .[id number] ONE Stop: 04/21/17 01:53 Last Admin: 04/20/17 10:11 Dose: 63 mls/hr Multivitamins/Vitamin C 10 ml/Amino Acids/Electrolytes/Dextrose 1,010 mls @ 63 mls/hr IV .Q16H2M AGUSTIN Stop: 04/21/17 10:00 Amino Acids/Electrolytes/Dextrose (Clinimix 5%-25% "E") 1,000 mls @ 63 mls/hr IV .[id number] [facility] Stop: 04/21/17 18:00 Fat Emulsion Intravenous (Intralipid 20%) 250 mls @ 42 mls/hr IV 1800 ONE Stop: 04/20/17 23:57 Lorazepam (Ativan) 0.5 mg IVP Q3H PRN PRN Reason: Anxiety Last Admin: 04/18/17 03:30 Dose: 0.5 mg Ondansetron HCl (Zofran Inj) 4 mg IVP Q6H PRN PRN Reason: Nausea/Vomiting Last Admin: 04/11/17 21:39 Dose: 4 mg Pantoprazole Sodium (Protonix Inj) 20 mg IVP BID [facility] Last Admin: 04/20/17 10:07 Dose: 20 mg Saccharomyces Boulardii (Florastor) 250 mg PO BID [facility] Last Admin: 04/20/17 10:07 Dose: 250 mg Thiamine HCl (Vitamin B1 Tab) 100 mg PO DAILY [facility] Last Admin: 04/20/17 10:08 Dose: 100 mg - Labs Labs: 04/20/17 06:41 04/20/17 06:41 PT 13.0 SECONDS (9.7-12.2) H 04/18/17 06:44 INR 1.2 04/18/17 06:44 APTT 30 SECONDS (21-34) 04/17/17 06:38 - Constitutional Appears: In Acute Distress, Chronically Ill - Head Exam Head Exam: ATRAUMATIC, NORMAL INSPECTION - Eye Exam Eye Exam: EOMI, Normal appearance - Neck Exam Neck Exam: Normal Inspection. absent: Tenderness - Cardiovascular Exam Cardiovascular Exam: REGULAR RHYTHM, +S1 - GI/Abdominal Exam GI & Abdominal Exam: Soft, Tenderness - Extremities Exam Extremities Exam: Normal Inspection. absent: Tenderness - Neurological Exam Neurological Exam: Altered - Skin Skin Exam: Dry, Warm Assessment and Plan (1) JIMBO (acute kidney injury) Status: Acute (2) Acute pancreatitis Status: Acute (3) SBO (small bowel obstruction) Status: Acute (4) Schizophrenia Status: Acute - Assessment and Plan (Free Text) Plan: Dialysis in AM follow chemistries, UO for need for dialysis
--- NOTE | 2017-04-20 13:03 | CP.CCUPN ---
Addendum entered and electronically signed by Pari Smith DO 04/20/17 13:12: per nutrition consult: during dialysis Nepro goal rate 45cc/hr for 1080cc, 1944kcal, 87gm protein, and 785 cc free H2O Original Note: <Pari Smith - Last Filed: 04/20/17 13:07> CCU Subjective - Physician Review Subjective (Free Text): Progress note for Dr. Hernandez Patient seen and examined at bedside. Patient resting comfortably in bed. NGT to suction. Tube feeds in jejunostomy POD #2, patient had temperature 100.7. tylenol administered. Yeast in urine, diflucan started. Procal 2.07 LLQ 530cc over 24 hours, serosanginous RLQ jejunostomy bag 235cc over 24 hrs serous Temperature remains elevated after tylenol. Critical Care Time Spent (in minutes): 35 CCU Objective - Vital Signs / Intake & Output Vital Signs (Last 4 hours): Vital Signs Temp Pulse Resp BP Pulse Ox 04/20/17 11:29 144 H 14 104/62 99 04/20/17 11:00 141 H 14 99 04/20/17 10:30 149 H 14 129/89 98 04/20/17 10:10 100.7 F H 04/20/17 09:29 126 H 14 104/65 100 Intake and Output (Last 8hrs): Intake & Output 04/19/17 04/20/17 04/20/17 22:59 06:59 14:59 Intake Total 1118.6 1142.8 785.3 Output Total 705 655 200 Balance 413.6 487.8 585.3 Weight 149 lb 14.629 oz Intake: IV 250 100 270 Intake, IV Amount 778.6 942.8 435.3 Left Distal Port Wrist 27.0 43.2 57.4 Left Wrist 143.8 177.6 62.9 Right Femoral 226.2 218 Rt Femoral 381.6 504 315 Tube Feeding 50 80 70 Other 40 20 10 Output: Gastric Amount 100 75 Right Nares 100 75 Drainage 385 230 50 Left Lower Abdomen 220 160 40 Right Lower Abdomen 165 70 10 Urine 220 350 150 Urethral (Tovar) 220 350 150 Stool 0 Other: # Bowel Movements 0 0 0 - Physical Exam Head: Positive for: Atraumatic, Normocephalic. Negative for: Tenderness Pupils: Positive for: PERRL Extroacular Muscles: Positive for: EOMI Mouth: Positive for: Moist Mucous Membranes. Negative for: Dry, Drooling Nose (External): Positive for: Other (NGT in place) Nose (Internal): Positive for: Normal Inspection, Moist Neck: Positive for: Normal Range of Motion. Negative for: JVD, Lymphadenopathy Respiratory/Chest: Positive for: Clear to Auscultation. Negative for: Respiratory Distress, Accessory Muscle Use Cardiovascular: Positive for: Regular Rate and Rhythm, Normal S1, S2 Abdomen: Positive for: Tenderness (mild tenderness of palpation. patient continues to move her arms towards hands on palpation). Negative for: Distention, Guarding Upper Extremity: Positive for: Normal Inspection, Normal ROM, Capillary Refill < 2s. Negative for: Edema Lower Extremity: Positive for: Normal Inspection. Negative for: Edema Neurological: Positive for: CN II-XII Intact Skin: Positive for: Warm, Pale Psychiatric: Positive for: Alert - Medications Active Medications: Active Medications Generic Name Dose Route Start Last Admin Trade Name Freq PRN Reason Stop Dose Admin Acetaminophen 650 mg 04/20/17 09:08 04/20/17 10:10 Tylenol 650mg/20.3ml Solution Ud PO 650 mg Q6 PRN Administration Temperature Acetaminophen 650 mg 04/20/17 10:17 Tylenol 650 Mg Supp DE Q4 PRN Fever >100.4 F Albuterol/Ipratropium 3 ml 04/18/17 14:00 04/20/17 07:00 Duoneb 3 Mg/0.5 Mg (3 Ml) Ud INH 3 ml RQ6 AGUSTIN Administration Ascorbic Acid 500 mg 04/08/17 12:30 04/20/17 10:06 Vitamin C 500 Mg Tab PO 500 mg DAILY AGUSTIN Administration Haloperidol Lactate 1 mg 03/29/17 18:47 04/17/17 00:00 Haldol IVP 1 mg BID PRN Administration Agitation Hydromorphone HCl 0.5 mg 04/17/17 07:16 04/17/17 20:17 Dilaudid IVP 0.5 mg Q3 PRN Administration Pain, moderate (4-7) Hydromorphone HCl 1 mg 04/17/17 07:16 04/18/17 14:50 Dilaudid IVP 1 mg Q3 PRN Administration Pain, severe (8-10) Piperacillin Sod/Tazobactam Sod 2.25 gm in 50 mls @ 100 mls/hr 04/12/17 18:00 04/20/17 10:09 Zosyn 2.25 Gm Iv Premix IVPB 100 mls/hr Q8H AGUSTIN Administration Midazolam HCl 100 mg/ Sodium 100 mls @ 1.35 mls/hr 04/18/17 14:00 04/20/17 08 :00 Chloride IV 0 mg/kg/hr .Q24H AGUSTIN 0 mls/hr Protocol Titration 0.02 MG/KG/HR Fentanyl Citrate 2,500 mcg/ 250 mls @ 13.56 mls/hr 04/18/17 19:45 04/20/17 08 :30 Sodium Chloride IV 1 mcg/kg/hr .[id number] AGUSTIN 6.78 mls/hr Protocol Titration 2 MCG/KG/HR Chromium/Copper/Manganese/Zinc 1,001 mls @ 63 mls/hr 04/20/17 10:00 04/20/17 10:11 1 ml/ Amino Acids/ IV 04/21/17 01:53 63 mls/hr Electrolytes/Dextrose .[id number] ONE Administration Multivitamins/Vitamin C 10 ml/ 1,010 mls @ 63 mls/hr 04/20/17 18:00 Amino Acids/Electrolytes/ IV 04/21/17 10:00 Dextrose .[id number] AGUSTIN Amino Acids/Electrolytes/Dextrose 1,000 mls @ 63 mls/hr 04/21/17 10:00 Clinimix 5%-25% "E" IV 04/21/17 18:00 .[id number] [facility] Fat Emulsion Intravenous 250 mls @ 42 mls/hr 04/20/17 18:00 Intralipid 20% IV 04/20/17 23:57 1800 ONE Fluconazole 100 mls @ 100 mls/hr 04/21/17 10:00 Diflucan Iv 200 Mg/100 Ml Ns IVPB DAILY AGUSTIN Lorazepam 0.5 mg 04/01/17 16:08 04/18/17 03:30 Ativan IVP 0.5 mg Q3H PRN Administration Anxiety Ondansetron HCl 4 mg 03/27/17 23:45 04/11/17 21:39 Zofran Inj IVP 4 mg Q6H PRN Administration Nausea/Vomiting Pantoprazole Sodium 20 mg 04/19/17 18:00 04/20/17 10:07 Protonix Inj IVP 20 mg BID AGUSTIN Administration Saccharomyces Boulardii 250 mg 04/08/17 18:00 04/20/17 10:07 Florastor PO 250 mg BID AGUSTIN Administration Thiamine HCl 100 mg 04/08/17 12:30 04/20/17 10:08 Vitamin B1 Tab PO 100 mg DAILY AGUSTIN Administration - Patient Studies Lab Studies: Microbiology Studies 04/18/17 22:42 Urine Culture - Final Urine,Catheterized Yeast Species 04/18/17 22:15 Blood Culture - Preliminary Blood-Venous NO GROWTH AFTER 24 HOURS 04/18/17 21:45 Blood Culture - Preliminary Blood-Venous NO GROWTH AFTER 24 HOURS 04/18/17 21:42 Gram Stain - Final Abdomen Lab Studies 04/20/17 04/20/17 04/20/17 Range/Units 11:35 10:52 06:41 WBC (4.8-10.8) K/uL RBC (3.80-5.20) Mil/uL Hgb (11.0-16.0) g/dL Hct (34.0-47.0) % MCV (81.0-99.0) fL MCH (27.0-31.0) pg MCHC (33.0-37.0) g/dL RDW (11.5-14.5) % Plt Count (130-400) K/uL MPV (7.2-11.7) fL Neut % (Auto) (50.0-75.0) % Lymph % (Auto) (20.0-40.0) % Frontier % (Auto) (0.0-10.0) % Eos % (Auto) (0.0-4.0) % Baso % (Auto) (0.0-2.0) % Neut # (1.8-7.0) K/uL Lymph # (1.0-4.3) K/uL Frontier # (0.0-0.8) K/uL Eos # (0.0-0.7) K/uL Baso # (0.0-0.2) K/uL Neutrophils % (Manual) (50-75) % Band Neutrophils % (0-2) % Lymphocytes % (Manual) (20-40) % Monocytes % (Manual) (0-10) % Eosinophils % (Manual) (0-4) % Platelet Estimate (NORMAL) Plt Clumps, EDTA Polychromasia Hypochromasia (manual) Anisocytosis (manual) Puncture Site pCO2 (35-45) mm/Hg pO2 (80-100) mm/Hg HCO3 (21-28) mmol/L ABG pH (7.35-7.45) ABG Total CO2 (22-28) mmol/L ABG O2 Saturation (95-98) % ABG Base Excess (-2.0-3.0) mmol/L ABG Hemoglobin (11.7-17.4) g/dL ABG Carboxyhemoglobin (0.5-1.5) % POC ABG HHb (Measured) (0.0-5.0) % ABG Methemoglobin (0.0-3.0) % Daniel Test A-a O2 Difference mm/Hg Respiratory Index Hgb O2 Saturation (95.0-98.0) % Vent Mode Mechanical Rate FiO2 % Tidal Volume PEEP Sodium 133 (132-148) mmol/L Potassium 4.4 (3.6-5.2) mmol/L Chloride 96 L (98-107) mmol/L Carbon Dioxide 28 (22-30) mmol/L Anion Gap 14 (10-20) BUN 25 H (7-17) mg/dL Creatinine 3.1 H (0.7-1.2) mg/dL Est GFR ( Amer) 21 Est GFR (Non-Af Amer) 17 POC Glucose (mg/dL) 135 H (65-110) mg/dL Random Glucose 123 H (65-105) mg/dL Calcium 7.4 L (8.6-10.4) mg/dl Phosphorus 2.4 L (2.5-4.5) mg/dL Magnesium 2.0 (1.6-2.3) mg/dL Total Bilirubin 0.8 (0.2-1.3) mg/dL AST 29 (14-36) U/L ALT 16 (9-52) U/L Alkaline Phosphatase 89 (38-126) U/L Total Protein 5.5 L (6.3-8.3) g/dL Albumin 2.6 L (3.5-5.0) g/dL Globulin 2.9 (2.2-3.9) gm/dL Albumin/Globulin Ratio 0.9 L (1.0-2.1) Procalcitonin 2.07 H (0.19-0.49) NG/ML 04/20/17 04/20/17 04/20/17 Range/Units 06:41 05:34 05:14 WBC 15.7 H (4.8-10.8) K/uL RBC 2.99 L (3.80-5.20) Mil/uL Hgb 8.7 L (11.0-16.0) g/dL Hct 25.8 L (34.0-47.0) % MCV 86.2 (81.0-99.0) fL MCH 29.1 (27.0-31.0) pg MCHC 33.7 (33.0-37.0) g/dL RDW 15.9 H (11.5-14.5) % Plt Count 374 (130-400) K/uL MPV 8.4 (7.2-11.7) fL Neut % (Auto) 68.4 (50.0-75.0) % Lymph % (Auto) 9.8 L (20.0-40.0) % Frontier % (Auto) 14.6 H (0.0-10.0) % Eos % (Auto) 6.9 H (0.0-4.0) % Baso % (Auto) 0.3 (0.0-2.0) % Neut # 10.8 H (1.8-7.0) K/uL Lymph # 1.5 (1.0-4.3) K/uL Frontier # 2.3 H (0.0-0.8) K/uL Eos # 1.1 H (0.0-0.7) K/uL Baso # 0.0 (0.0-0.2) K/uL Neutrophils % (Manual) 77 H (50-75) % Band Neutrophils % (0-2) % Lymphocytes % (Manual) 5 L (20-40) % Monocytes % (Manual) 14 H (0-10) % Eosinophils % (Manual) 4 (0-4) % Platelet Estimate Normal (NORMAL) Plt Clumps, EDTA Polychromasia Slight Hypochromasia (manual) Slight Anisocytosis (manual) Slight Puncture Site Rr pCO2 34 L (35-45) mm/Hg pO2 166 H (80-100) mm/Hg HCO3 23.0 (21-28) mmol/L ABG pH 7.41 (7.35-7.45) ABG Total CO2 22.6 (22-28) mmol/L ABG O2 Saturation 99.1 H (95-98) % ABG Base Excess -2.4 L (-2.0-3.0) mmol/L ABG Hemoglobin 13.1 (11.7-17.4) g/dL ABG Carboxyhemoglobin 1.2 (0.5-1.5) % POC ABG HHb (Measured) 0.9 (0.0-5.0) % ABG Methemoglobin 1.3 (0.0-3.0) % Daniel Test Pos A-a O2 Difference 77.0 mm/Hg Respiratory Index 0.5 Hgb O2 Saturation 96.5 (95.0-98.0) % Vent Mode Prvc Mechanical Rate 14 FiO2 40.0 % Tidal Volume 450 PEEP 5 Sodium (132-148) mmol/L Potassium (3.6-5.2) mmol/L Chloride (98-107) mmol/L Carbon Dioxide (22-30) mmol/L Anion Gap (10-20) BUN (7-17) mg/dL Creatinine (0.7-1.2) mg/dL Est GFR ( Amer) Est GFR (Non-Af Amer) POC Glucose (mg/dL) 122 H (65-110) mg/dL Random Glucose (65-105) mg/dL Calcium (8.6-10.4) mg/dl Phosphorus (2.5-4.5) mg/dL Magnesium (1.6-2.3) mg/dL Total Bilirubin (0.2-1.3) mg/dL AST (14-36) U/L ALT (9-52) U/L Alkaline Phosphatase (38-126) U/L Total Protein (6.3-8.3) g/dL Albumin (3.5-5.0) g/dL Globulin (2.2-3.9) gm/dL Albumin/Globulin Ratio (1.0-2.1) Procalcitonin (0.19-0.49) NG/ML 01/09/18 01/09/18 01/09/18 Range/Units 23:44 17:42 17:32 WBC 17.6 H (4.8-10.8) K/uL RBC 3.16 L (3.80-5.20) Mil/uL Hgb 9.0 L (11.0-16.0) g/dL Hct 26.7 L (34.0-47.0) % MCV 84.6 (81.0-99.0) fL MCH 28.3 (27.0-31.0) pg MCHC 33.5 (33.0-37.0) g/dL RDW 15.5 H (11.5-14.5) % Plt Count 371 (130-400) K/uL MPV 7.7 (7.2-11.7) fL Neut % (Auto) 71.9 (50.0-75.0) % Lymph % (Auto) 8.2 L (20.0-40.0) % Frontier % (Auto) 14.7 H (0.0-10.0) % Eos % (Auto) 4.9 H (0.0-4.0) % Baso % (Auto) 0.3 (0.0-2.0) % Neut # 12.7 H (1.8-7.0) K/uL Lymph # 1.4 (1.0-4.3) K/uL Frontier # 2.6 H (0.0-0.8) K/uL Eos # 0.9 H (0.0-0.7) K/uL Baso # 0.1 (0.0-0.2) K/uL Neutrophils % (Manual) 80 H (50-75) % Band Neutrophils % 1 (0-2) % Lymphocytes % (Manual) 7 L (20-40) % Monocytes % (Manual) 9 (0-10) % Eosinophils % (Manual) 3 (0-4) % Platelet Estimate Normal (NORMAL) Plt Clumps, EDTA Present Polychromasia Hypochromasia (manual) Anisocytosis (manual) Puncture Site pCO2 (35-45) mm/Hg pO2 (80-100) mm/Hg HCO3 (21-28) mmol/L ABG pH (7.35-7.45) ABG Total CO2 (22-28) mmol/L ABG O2 Saturation (95-98) % ABG Base Excess (-2.0-3.0) mmol/L ABG Hemoglobin (11.7-17.4) g/dL ABG Carboxyhemoglobin (0.5-1.5) % POC ABG HHb (Measured) (0.0-5.0) % ABG Methemoglobin (0.0-3.0) % Daniel Test A-a O2 Difference mm/Hg Respiratory Index Hgb O2 Saturation (95.0-98.0) % Vent Mode Mechanical Rate FiO2 % Tidal Volume PEEP Sodium (132-148) mmol/L Potassium (3.6-5.2) mmol/L Chloride (98-107) mmol/L Carbon Dioxide (22-30) mmol/L Anion Gap (10-20) BUN (7-17) mg/dL Creatinine (0.7-1.2) mg/dL Est GFR ( Amer) Est GFR (Non-Af Amer) POC Glucose (mg/dL) 144 H 77 (65-110) mg/dL Random Glucose (65-105) mg/dL Calcium (8.6-10.4) mg/dl Phosphorus (2.5-4.5) mg/dL Magnesium (1.6-2.3) mg/dL Total Bilirubin (0.2-1.3) mg/dL AST (14-36) U/L ALT (9-52) U/L Alkaline Phosphatase (38-126) U/L Total Protein (6.3-8.3) g/dL Albumin (3.5-5.0) g/dL Globulin (2.2-3.9) gm/dL Albumin/Globulin Ratio (1.0-2.1) Procalcitonin (0.19-0.49) NG/ML Laboratory Results - last 24 hr 04/19/17 04/19/17 04/19/17 17:32 17:42 23:44 WBC 17.6 H RBC 3.16 L Hgb 9.0 L Hct 26.7 L MCV 84.6 MCH 28.3 MCHC 33.5 RDW 15.5 H Plt Count 371 MPV 7.7 Neut % (Auto) 71.9 Lymph % (Auto) 8.2 L Frontier % (Auto) 14.7 H Eos % (Auto) 4.9 H Baso % (Auto) 0.3 Neut # 12.7 H Lymph # 1.4 Frontier # 2.6 H Eos # 0.9 H Baso # 0.1 Neutrophils % (Manual) 80 H Band Neutrophils % 1 Lymphocytes % (Manual) 7 L Monocytes % (Manual) 9 Eosinophils % (Manual) 3 Platelet Estimate Normal Plt Clumps, EDTA Present Polychromasia Hypochromasia (manual) Anisocytosis (manual) Puncture Site pCO2 pO2 HCO3 ABG pH ABG Total CO2 ABG O2 Saturation ABG Base Excess ABG Hemoglobin ABG Carboxyhemoglobin POC ABG HHb (Measured) ABG Methemoglobin Daniel Test A-a O2 Difference Respiratory Index Hgb O2 Saturation Vent Mode Mechanical Rate FiO2 Tidal Volume PEEP Sodium Potassium Chloride Carbon Dioxide Anion Gap BUN Creatinine Est GFR ( Amer) Est GFR (Non-Af Amer) POC Glucose (mg/dL) 77 144 H Random Glucose Calcium Phosphorus Magnesium Total Bilirubin AST ALT Alkaline Phosphatase Total Protein Albumin Globulin Albumin/Globulin Ratio Procalcitonin 04/20/17 04/20/17 04/20/17 05:14 05:34 06:41 WBC 15.7 H RBC 2.99 L Hgb 8.7 L Hct 25.8 L MCV 86.2 MCH 29.1 MCHC 33.7 RDW 15.9 H Plt Count 374 MPV 8.4 Neut % (Auto) 68.4 Lymph % (Auto) 9.8 L Frontier % (Auto) 14.6 H Eos % (Auto) 6.9 H Baso % (Auto) 0.3 Neut # 10.8 H Lymph # 1.5 Frontier # 2.3 H Eos # 1.1 H Baso # 0.0 Neutrophils % (Manual) 77 H Band Neutrophils % Lymphocytes % (Manual) 5 L Monocytes % (Manual) 14 H Eosinophils % (Manual) 4 Platelet Estimate Normal Plt Clumps, EDTA Polychromasia Slight Hypochromasia (manual) Slight Anisocytosis (manual) Slight Puncture Site Rr pCO2 34 L pO2 166 H HCO3 23.0 ABG pH 7.41 ABG Total CO2 22.6 ABG O2 Saturation 99.1 H ABG Base Excess -2.4 L ABG Hemoglobin 13.1 ABG Carboxyhemoglobin 1.2 POC ABG HHb (Measured) 0.9 ABG Methemoglobin 1.3 Daniel Test Pos A-a O2 Difference 77.0 Respiratory Index 0.5 Hgb O2 Saturation 96.5 Vent Mode Prvc Mechanical Rate 14 FiO2 40.0 Tidal Volume 450 PEEP 5 Sodium Potassium Chloride Carbon Dioxide Anion Gap BUN Creatinine Est GFR ( Amer) Est GFR (Non-Af Amer) POC Glucose (mg/dL) 122 H Random Glucose Calcium Phosphorus Magnesium Total Bilirubin AST ALT Alkaline Phosphatase Total Protein Albumin Globulin Albumin/Globulin Ratio Procalcitonin 04/20/17 04/20/17 04/20/17 06:41 10:52 11:35 WBC RBC Hgb Hct MCV MCH MCHC RDW Plt Count MPV Neut % (Auto) Lymph % (Auto) Frontier % (Auto) Eos % (Auto) Baso % (Auto) Neut # Lymph # Frontier # Eos # Baso # Neutrophils % (Manual) Band Neutrophils % Lymphocytes % (Manual) Monocytes % (Manual) Eosinophils % (Manual) Platelet Estimate Plt Clumps, EDTA Polychromasia Hypochromasia (manual) Anisocytosis (manual) Puncture Site pCO2 pO2 HCO3 ABG pH ABG Total CO2 ABG O2 Saturation ABG Base Excess ABG Hemoglobin ABG Carboxyhemoglobin POC ABG HHb (Measured) ABG Methemoglobin Daniel Test A-a O2 Difference Respiratory Index Hgb O2 Saturation Vent Mode Mechanical Rate FiO2 Tidal Volume PEEP Sodium 133 Potassium 4.4 Chloride 96 L Carbon Dioxide 28 Anion Gap 14 BUN 25 H Creatinine 3.1 H Est GFR ( Amer) 21 Est GFR (Non-Af Amer) 17 POC Glucose (mg/dL) 135 H Random Glucose 123 H Calcium 7.4 L Phosphorus 2.4 L Magnesium 2.0 Total Bilirubin 0.8 AST 29 ALT 16 Alkaline Phosphatase 89 Total Protein 5.5 L Albumin 2.6 L Globulin 2.9 Albumin/Globulin Ratio 0.9 L Procalcitonin 2.07 H Fingerstick Blood Sugar Results: 122 Critical Care Progress Note - Nutrition Nutrition: Nutrition Category Date Time Status NPO Diet [DIET] Diets 04/08/17 Dinner Active Assessment/Plan - Assessment and Plan (Free Text) Assessment: 36F admitted with diarrhea,tachycardia,elevated WBC count ,lipase and lactic acid, 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 s/p boby en Y bypass, gastrojejunostomy with Tricia ileostomy placement. POD #2 (04/18/17) Neuro: hx of Schizophrenia, patient has mental retardation and can speak some words based on observation Altered mental status 12/28 Dr. Bedoya consulted Psych Consult: Dr. Mccloud Midazolam 0.02mg/kg/hr Haloperidol 1mg IVP BID PRN Ativan 0.5mg IVP Q3H PRN Pain: Fentanyl 2mcg/kg/hr Zofran 4mg Q6H PRN Thiamine 100mg PO QD Ascorbic Acid 500mg PO QD Nausea: Zofran 4mg IVP q6h PRN Reglan 10 mg IVP q4h PRN Psych: Psych Consult Dr. Mccloud: f/u 03/30 EKG to evaluate QTc Quetiapine (Seroquel) 200mg POBID, held d/t NGT on IWS, held awaiting Dr. Mccloud Recommendations Escitalopram (Lexapro) 10mg PO QD, held d/t NGT on IWS, held awaiting Dr. Mccloud Recommendations Cardio: Tachycardia 03/27 EKG Sinus tachycardia 138 bpm 03/30 EKG QTc 434, Sinus tachycardia at 153 bpm Diltiazem 125mg Q24hr @ 5mg/hr 04/08 Pulm: Aspiration pneumonia s/p EGD with intubation then extubation 03/27 AB.22, lactate 9.7 04/08 AB.50, CO2 24, O2 148, HCO3 22.9, lactate 1.0 03/27 CXR in infiltrates, no active pulmonary disease 03/30 CXR: poor inspiratory effort, areas suggestive of aspiration pneumonia 04/02: CT abdomen/pelvis/chest: pleural effusions, bilateral perihilar consolidations possibly due to multifocal pneumonia vs. atelectasis 04/04: CXR: Left lower lobe atelectasis/pneumonia and small left pleural effusion. Stable position of nasogastric tube and Dialysis catheter with one port Duoneb 04/17 CXR: mild vascular congestion 04/18 CXR: vascular congestion, poor inspiratory effort 04/19 CXR: vascular congestion, poor inspiratory effort Albuterol/Ipratropium 3cc INH RQ6H Endo: 03/28 Hemoglobin A1c 5.3 GI: Currently on PPN 03/28 Lipase 8456 03/29 Lipase 322 03/30 Lipase 64 03/30 GOBT positive 03/31 Pathology for Antrum biopsy from 03/29 EGD current biopsy negative for H pylori 04/01 f/u Dr. Harmon for repeat EGD., NGT 800 03/27 21:42 CT abdomen/pelvis with IV contrast: gastric distention 32cm and distention of the first and third and second portion of duodenum. Transition and complete decompression of third portion of duodenum. pancreas unremarkable, spleen unremarkable, partially contracted gallbladder. duodenal obstruction v delayed emptying v gastroparesis. Fluid distention of distal esophagus 3.3cm representing gastric emptying v gastroesophageal reflux. 03/27 CT abdomen/pelvis with IV contrast: significantly dilated stomach with retained food and fluid. significantly diminished prior to earlier CT 03/28. No free intraperitoneal gas identified. contrast noted in Gallbladder. 03/28 CT Chest/Abdomen/Pelvis: Left greater than right pleural effusion, bilateral perihilar consolidation. right more than left upper lobes and left more than right lower lobes. lingular consolidation representing multifocal pneumonia v. atelectasis versus mucous lugging and/or aspiration. interval worsening compared to prior exam 04/02 CT chest/abdomen/pelvis shows gastric distention 27cm, possible gastric pneumatosis, NGT at fundus with contrast fluid and gas level peripancreatic infiltration. gastric distension measuring 27 cm with possible gastric pneumatosis. intraperitoneal pelvic fluid with prominent surrounding peritoneal lining. Loculated ascites with peritoneal enhancement above spleen in retrogastric region. Lipase 320. 04/08 CT Chest/Abdomen/Pelvis: resolving acute pancreatitis, no residual peripancreatic fluid. 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 Distention of stomach due to gastric ileus. Ascites and loculated fluid posterior to the gastric fundus and cephalad to the spleen. Focal enteritis of proximal jejunum with mural thickening. Small left pleural effusion with left lower lobe compressive atelectasis. 04/14/17 CT Angio Abdomen/Pelvis:gastric distentions 27cm. gastric pneumatosis on image 66 through 73 series 6. NGT in fundus of stomach with contrast fluid and gas level. peripancreatic infiltration. left more than right large pleural effusions. bilateral perihilar consolidation. right more than left upper lobes and left more than right lower lobes lingular consolidation. Significant interval worsening when compared to prior examination 03/28/17. moderate intraperitoneal pelvic fluid with prominent surrounding peritoneal lining. Loculated peritoneal abscess secondary to contained gastric perforation 03/[address] connected to suction. 03/28 NGT OP since insertion: 2600cc 03/29 2350 03/30 NGT 1160 03/31 NGT 630 04/01 NGT 800 04/02 NGT 100 04/04 550, NGT removed by patient, Flexiseal removed by patient f/u Strict I/Os 04/10 NGT 3300 04/11 NGT 1200 04/12 NGT 700, with about 100cc of bright red sanguinous blood, with bilious component. 04/12 NGT off suction, clamped, patient continues to have red output to gravity. General Surgery Consult: Dr. Woodruff 03/[address] Harmon to have EGD today. 03/[address] Harmon, place patient on Reglan to help with motility. 03/30 Abdominal xray/obstructive series: minimal distention of stomach compared to previous imaging studies 03/31 Pathology for Antrum biopsy from 03/29 EGD current biopsy negative for H pylori 04/01 f/u Dr. Harmon for repeat EGD. 04/13 Dr. Lau repeat EGD: diffuse ulceration, large fibrous clot, repeat EGD scheduled 04/14 for re-evaluation, CT Angio ordered to evaluate for ischemia 04/13 NGT 280 cc 04/14 NGT 140cc over 24 hours 04/14 repeat EGD cancelled. continued supportive care by GI today 04/14 NGT 200cc 04/15 repeat EGD and PEJ tube insertion, could not be done due to inability to find a stable place for PEJ 04/18 Boby en Y bypass, gastrojejunostomy, Tricia ileostomy, drain insertion in LLQ by Dr. Mendez, no evidence of SMA compression of duodenum 04/19 LLQ drain 105 cc since insertion 04/19 RLQ ileostomy bag 320 cc since insertion Zofran 4mg IVP q6h PRN Reglan 10 mg IVP q4h PRN Renal: 03/27 UA: proteinuria urine output since insertion 360 f/u Strict I/Os 03/31 Potassium Phosphorus 15mmole @63cc/hr Patient is on dialysis and making urine. will monitor hourly output : 03/27 UA: hazy, specific gravity >1.060, 3+ urine protein, Urine bacteria, Urine Yeast Ceftriaxone 1gm IVPB QD, discontinued 03/30 Urine Cx negative 04/08 UA: Ari[place]ne, UA pH 5.0, trace ketones, 1+ leukocyte esterase, specific gravity 1.030 04/08 urine random total protein 41.0 Urine random chloride 17 Urine random sodium 7 Heme: GI bleed H/H: 03/27 14.6/44.7 03/28 12.9/38.5 03/28 FOBT positive 03/29 11.2/33.0 03/30 GOBT positive 03/30 9.5/27.7 03/31 9.4/27.5 04/01 8.9/25.8 04/02 9.1/26.7 04/04 9.9/28.8 04/05 9.4/28.4 04/09/1704/10 9.6/29.9 1 7.8/22.6 04/12 7.0/20.4 04/13 4.1/11.1 04/14 6.8/19.9 04/15 10.8/30.9 04/16 10.5/30.7 04/17 9.1/26.4 04/18 06:44 9.0/26.7 04/18 16:17 10.0, post Boby en y bypass, gastrojejunostomy, Tricia Ileostomy 04/19 9.0/26.7 04/20 8.7/25.8 MSK: Patient can walk per sister, but is dizzy so hasn't walked PT/OT eval ID: Sepsis Code sepsis 03/28 02:20, 03/28 lactate 9.7, 03/28 lactate 01:05 9.2, 03/28 lactate 06:15 1.3 Lactate is downtrending, normal Leukocytosis, downtrending WBC 04/20 15.7 Code sepsis 03/28 02:20 03/30 blood Culture x 2, negative 03/30 MRSA screen negative 03/30 Urine Cx negative 04/02 Blood culture x2 negative Code sepsis called again today 04/08. Patient was febrile (102 rectally and tachycardic ~140s) BP was 100/70. Tovar inserted to monitor urine output (nurse to clean TID with betadine) WBC 36.1 elevating from 20s. 4 bands, platelets 707 diflucan ordered 04/20 Prophylaxis: GI: Protonix Q12H Zofran 4mg IVP Q6H PRN Nausea Tylenol 325mg DE Q4H PRN Fluids: LR @100cc/hr Diet: NPO 04/04 NGT removed by patient, Flexiseal removed by patient, Left PICC removed by patient. 04/05 Patient downgraded to Regular Bed 04/11 Patient has a femoral dialysis catheter 04/12 GI consulted for GI bleed, repeat EGD 04/13 patient to have dialysis today with 2 u PRBC transfusion. CTA of abdomen and pelvis today d/t possible ischemic changes due to diffuse ulcerations seen on EGD 04/14 Patient had 3 uPRBC yesterday (1 u after dialysis) Patient's hgb is 6.8 today. Will transfuse 1 u PRBC during extra dialysis session today. repeat EGD today 04/15 04/16 04/17 Patient underwent dialysis 04/18 Boby en Y ex lap and Tricia ileostomy placement. 04/19 Tube feeds 04/20 elevated temperature, yeast in urine, monitor discussed with Dr. Patrick Smith DO PGY1 - Date & Time Date: 04/20/17 Time: 13:08 <Jose Hernandez - Last Filed: 04/20/17 16:38> CCU Objective - Vital Signs / Intake & Output Vital Signs (Last 4 hours): Vital Signs Pulse Resp BP Pulse Ox 04/20/17 14:29 138 H 14 108/68 99 04/20/17 13:46 121 H 14 85/45 L 100 04/20/17 13:08 128 H 13 88/53 L 100 04/20/17 13:02 121 H 14 84/45 L 100 Intake and Output (Last 8hrs): Intake & Output 04/20/17 04/20/17 04/20/17 06:59 14:59 22:59 Intake Total 1142.8 1088.5 12 Output Total 655 890 Balance 487.8 198.5 12 Weight 149 lb 14.629 oz Intake: IV 100 320 12 Intake, IV Amount 942.8 643.5 Left Distal Port Wrist 43.2 57.4 Left Wrist 177.6 82.1 Right Femoral 218 Rt Femoral 504 504 Tube Feeding 80 115 Other 20 10 Output: Gastric Amount 75 600 Right Nares 75 600 Drainage 230 45 Left Lower Abdomen 160 40 Right Lower Abdomen 70 5 Urine 350 245 Urethral (Tovar) 350 245 Other: # Bowel Movements 0 0 - Medications Active Medications: Active Medications Generic Name Dose Route Start Last Admin Trade Name Freq PRN Reason Stop Dose Admin Acetaminophen 650 mg 04/20/17 09:08 04/20/17 10:10 Tylenol 650mg/20.3ml Solution Ud PO 650 mg Q6 PRN Administration Temperature Acetaminophen 650 mg 04/20/17 10:17 Tylenol 650 Mg Supp DE Q4 PRN Fever >100.4 F Albuterol/Ipratropium 3 ml 04/18/17 14:00 04/20/17 13:23 Duoneb 3 Mg/0.5 Mg (3 Ml) Ud INH 3 ml RQ6 AGUSTIN Administration Ascorbic Acid 500 mg 04/08/17 12:30 04/20/17 10:06 Vitamin C 500 Mg Tab PO 500 mg DAILY AGUSTIN Administration Haloperidol Lactate 1 mg 03/29/17 18:47 04/17/17 00:00 Haldol IVP 1 mg BID PRN Administration Agitation Hydromorphone HCl 0.5 mg 04/17/17 07:16 04/17/17 20:17 Dilaudid IVP 0.5 mg Q3 PRN Administration Pain, moderate (4-7) Hydromorphone HCl 1 mg 04/17/17 07:16 04/18/17 14:50 Dilaudid IVP 1 mg Q3 PRN Administration Pain, severe (8-10) Piperacillin Sod/Tazobactam Sod 2.25 gm in 50 mls @ 100 mls/hr 04/12/17 18:00 04/20/17 10:09 Zosyn 2.25 Gm Iv Premix IVPB 100 mls/hr Q8H AGUSTIN Administration Midazolam HCl 100 mg/ Sodium 100 mls @ 1.35 mls/hr 04/18/17 14:00 04/20/17 08 :00 Chloride IV 0 mg/kg/hr .Q24H AGUSTIN 0 mls/hr Protocol Titration 0.02 MG/KG/HR Fentanyl Citrate 2,500 mcg/ 250 mls @ 13.56 mls/hr 04/18/17 19:45 04/20/17 16 :30 Sodium Chloride IV 1.5 mcg/kg/hr .[id number] AGUSTIN 10.17 mls/hr Protocol Titration 2 MCG/KG/HR Chromium/Copper/Manganese/Zinc 1,001 mls @ 63 mls/hr 04/20/17 10:00 04/20/17 10:11 1 ml/ Amino Acids/ IV 04/21/17 01:53 63 mls/hr Electrolytes/Dextrose .[id number] ONE Administration Multivitamins/Vitamin C 10 ml/ 1,010 mls @ 63 mls/hr 04/20/17 18:00 Amino Acids/Electrolytes/ IV 04/21/17 10:00 Dextrose .Q16H2M AGUSTIN Amino Acids/Electrolytes/Dextrose 1,000 mls @ 63 mls/hr 04/21/17 10:00 Clinimix 5%-25% "E" IV 04/21/17 18:00 .[id number] AGUSTIN Fat Emulsion Intravenous 250 mls @ 42 mls/hr 04/20/17 18:00 Intralipid 20% IV 04/20/17 23:57 1800 ONE Fluconazole 100 mls @ 100 mls/hr 04/21/17 10:00 Diflucan Iv 200 Mg/100 Ml Ns IVPB DAILY AGUSTIN Lorazepam 0.5 mg 04/01/17 16:08 04/18/17 03:30 Ativan IVP 0.5 mg Q3H PRN Administration Anxiety Ondansetron HCl 4 mg 03/27/17 23:45 04/11/17 21:39 Zofran Inj IVP 4 mg Q6H PRN Administration Nausea/Vomiting Pantoprazole Sodium 20 mg 04/19/17 18:00 04/20/17 10:07 Protonix Inj IVP 20 mg BID AGUSTIN Administration Saccharomyces Boulardii 250 mg 04/08/17 18:00 04/20/17 10:07 Florastor PO 250 mg BID AGUSTIN Administration Thiamine HCl 100 mg 04/08/17 12:30 04/20/17 10:08 Vitamin B1 Tab PO 100 mg DAILY AGUSTIN Administration - Patient Studies Lab Studies: Microbiology Studies 04/18/17 22:42 Urine Culture - Final Urine,Catheterized Yeast Species 04/18/17 22:15 Blood Culture - Preliminary Blood-Venous NO GROWTH AFTER 24 HOURS 04/18/17 21:45 Blood Culture - Preliminary Blood-Venous NO GROWTH AFTER 24 HOURS 04/18/17 21:42 Gram Stain - Final Abdomen Lab Studies 04/20/17 04/20/17 04/20/17 Range/Units 11:35 10:52 06:41 WBC (4.8-10.8) K/uL RBC (3.80-5.20) Mil/uL Hgb (11.0-16.0) g/dL Hct (34.0-47.0) % MCV (81.0-99.0) fL MCH (27.0-31.0) pg MCHC (33.0-37.0) g/dL RDW (11.5-14.5) % Plt Count (130-400) K/uL MPV (7.2-11.7) fL Neut % (Auto) (50.0-75.0) % Lymph % (Auto) (20.0-40.0) % Frontier % (Auto) (0.0-10.0) % Eos % (Auto) (0.0-4.0) % Baso % (Auto) (0.0-2.0) % Neut # (1.8-7.0) K/uL Lymph # (1.0-4.3) K/uL Frontier # (0.0-0.8) K/uL Eos # (0.0-0.7) K/uL Baso # (0.0-0.2) K/uL Neutrophils % (Manual) (50-75) % Band Neutrophils % (0-2) % Lymphocytes % (Manual) (20-40) % Monocytes % (Manual) (0-10) % Eosinophils % (Manual) (0-4) % Platelet Estimate (NORMAL) Plt Clumps, EDTA Polychromasia Hypochromasia (manual) Anisocytosis (manual) Puncture Site pCO2 (35-45) mm/Hg pO2 (80-100) mm/Hg HCO3 (21-28) mmol/L ABG pH (7.35-7.45) ABG Total CO2 (22-28) mmol/L ABG O2 Saturation (95-98) % ABG Base Excess (-2.0-3.0) mmol/L ABG Hemoglobin (11.7-17.4) g/dL ABG Carboxyhemoglobin (0.5-1.5) % POC ABG HHb (Measured) (0.0-5.0) % ABG Methemoglobin (0.0-3.0) % Daniel Test A-a O2 Difference mm/Hg Respiratory Index Hgb O2 Saturation (95.0-98.0) % Vent Mode Mechanical Rate FiO2 % Tidal Volume PEEP Sodium 133 (132-148) mmol/L Potassium 4.4 (3.6-5.2) mmol/L Chloride 96 L (98-107) mmol/L Carbon Dioxide 28 (22-30) mmol/L Anion Gap 14 (10-20) BUN 25 H (7-17) mg/dL Creatinine 3.1 H (0.7-1.2) mg/dL Est GFR ( Amer) 21 Est GFR (Non-Af Amer) 17 POC Glucose (mg/dL) 135 H (65-110) mg/dL Random Glucose 123 H (65-105) mg/dL Calcium 7.4 L (8.6-10.4) mg/dl Phosphorus 2.4 L (2.5-4.5) mg/dL Magnesium 2.0 (1.6-2.3) mg/dL Total Bilirubin 0.8 (0.2-1.3) mg/dL AST 29 (14-36) U/L ALT 16 (9-52) U/L Alkaline Phosphatase 89 (38-126) U/L Total Protein 5.5 L (6.3-8.3) g/dL Albumin 2.6 L (3.5-5.0) g/dL Globulin 2.9 (2.2-3.9) gm/dL Albumin/Globulin Ratio 0.9 L (1.0-2.1) Procalcitonin 2.07 H (0.19-0.49) NG/ML 04/20/17 04/20/17 04/20/17 Range/Units 06:41 05:34 05:14 WBC 15.7 H (4.8-10.8) K/uL RBC 2.99 L (3.80-5.20) Mil/uL Hgb 8.7 L (11.0-16.0) g/dL Hct 25.8 L (34.0-47.0) % MCV 86.2 (81.0-99.0) fL MCH 29.1 (27.0-31.0) pg MCHC 33.7 (33.0-37.0) g/dL RDW 15.9 H (11.5-14.5) % Plt Count 374 (130-400) K/uL MPV 8.4 (7.2-11.7) fL Neut % (Auto) 68.4 (50.0-75.0) % Lymph % (Auto) 9.8 L (20.0-40.0) % Frontier % (Auto) 14.6 H (0.0-10.0) % Eos % (Auto) 6.9 H (0.0-4.0) % Baso % (Auto) 0.3 (0.0-2.0) % Neut # 10.8 H (1.8-7.0) K/uL Lymph # 1.5 (1.0-4.3) K/uL Frontier # 2.3 H (0.0-0.8) K/uL Eos # 1.1 H (0.0-0.7) K/uL Baso # 0.0 (0.0-0.2) K/uL Neutrophils % (Manual) 77 H (50-75) % Band Neutrophils % (0-2) % Lymphocytes % (Manual) 5 L (20-40) % Monocytes % (Manual) 14 H (0-10) % Eosinophils % (Manual) 4 (0-4) % Platelet Estimate Normal (NORMAL) Plt Clumps, EDTA Polychromasia Slight Hypochromasia (manual) Slight Anisocytosis (manual) Slight Puncture Site Rr pCO2 34 L (35-45) mm/Hg pO2 166 H (80-100) mm/Hg HCO3 23.0 (21-28) mmol/L ABG pH 7.41 (7.35-7.45) ABG Total CO2 22.6 (22-28) mmol/L ABG O2 Saturation 99.1 H (95-98) % ABG Base Excess -2.4 L (-2.0-3.0) mmol/L ABG Hemoglobin 13.1 (11.7-17.4) g/dL ABG Carboxyhemoglobin 1.2 (0.5-1.5) % POC ABG HHb (Measured) 0.9 (0.0-5.0) % ABG Methemoglobin 1.3 (0.0-3.0) % Daniel Test Pos A-a O2 Difference 77.0 mm/Hg Respiratory Index 0.5 Hgb O2 Saturation 96.5 (95.0-98.0) % Vent Mode Prvc Mechanical Rate 14 FiO2 40.0 % Tidal Volume 450 PEEP 5 Sodium (132-148) mmol/L Potassium (3.6-5.2) mmol/L Chloride (98-107) mmol/L Carbon Dioxide (22-30) mmol/L Anion Gap (10-20) BUN (7-17) mg/dL Creatinine (0.7-1.2) mg/dL Est GFR ( Amer) Est GFR (Non-Af Amer) POC Glucose (mg/dL) 122 H (65-110) mg/dL Random Glucose (65-105) mg/dL Calcium (8.6-10.4) mg/dl Phosphorus (2.5-4.5) mg/dL Magnesium (1.6-2.3) mg/dL Total Bilirubin (0.2-1.3) mg/dL AST (14-36) U/L ALT (9-52) U/L Alkaline Phosphatase (38-126) U/L Total Protein (6.3-8.3) g/dL Albumin (3.5-5.0) g/dL Globulin (2.2-3.9) gm/dL Albumin/Globulin Ratio (1.0-2.1) Procalcitonin (0.19-0.49) NG/ML 04/19/17 04/19/17 04/19/17 Range/Units 23:44 17:42 17:32 WBC 17.6 H (4.8-10.8) K/uL RBC 3.16 L (3.80-5.20) Mil/uL Hgb 9.0 L (11.0-16.0) g/dL Hct 26.7 L (34.0-47.0) % MCV 84.6 (81.0-99.0) fL MCH 28.3 (27.0-31.0) pg MCHC 33.5 (33.0-37.0) g/dL RDW 15.5 H (11.5-14.5) % Plt Count 371 (130-400) K/uL MPV 7.7 (7.2-11.7) fL Neut % (Auto) 71.9 (50.0-75.0) % Lymph % (Auto) 8.2 L (20.0-40.0) % Frontier % (Auto) 14.7 H (0.0-10.0) % Eos % (Auto) 4.9 H (0.0-4.0) % Baso % (Auto) 0.3 (0.0-2.0) % Neut # 12.7 H (1.8-7.0) K/uL Lymph # 1.4 (1.0-4.3) K/uL Frontier # 2.6 H (0.0-0.8) K/uL Eos # 0.9 H (0.0-0.7) K/uL Baso # 0.1 (0.0-0.2) K/uL Neutrophils % (Manual) 80 H (50-75) % Band Neutrophils % 1 (0-2) % Lymphocytes % (Manual) 7 L (20-40) % Monocytes % (Manual) 9 (0-10) % Eosinophils % (Manual) 3 (0-4) % Platelet Estimate Normal (NORMAL) Plt Clumps, EDTA Present Polychromasia Hypochromasia (manual) Anisocytosis (manual) Puncture Site pCO2 (35-45) mm/Hg pO2 (80-100) mm/Hg HCO3 (21-28) mmol/L ABG pH (7.35-7.45) ABG Total CO2 (22-28) mmol/L ABG O2 Saturation (95-98) % ABG Base Excess (-2.0-3.0) mmol/L ABG Hemoglobin (11.7-17.4) g/dL ABG Carboxyhemoglobin (0.5-1.5) % POC ABG HHb (Measured) (0.0-5.0) % ABG Methemoglobin (0.0-3.0) % Daniel Test A-a O2 Difference mm/Hg Respiratory Index Hgb O2 Saturation (95.0-98.0) % Vent Mode Mechanical Rate FiO2 % Tidal Volume PEEP Sodium (132-148) mmol/L Potassium (3.6-5.2) mmol/L Chloride (98-107) mmol/L Carbon Dioxide (22-30) mmol/L Anion Gap (10-20) BUN (7-17) mg/dL Creatinine (0.7-1.2) mg/dL Est GFR ( Amer) Est GFR (Non-Af Amer) POC Glucose (mg/dL) 144 H 77 (65-110) mg/dL Random Glucose (65-105) mg/dL Calcium (8.6-10.4) mg/dl Phosphorus (2.5-4.5) mg/dL Magnesium (1.6-2.3) mg/dL Total Bilirubin (0.2-1.3) mg/dL AST (14-36) U/L ALT (9-52) U/L Alkaline Phosphatase (38-126) U/L Total Protein (6.3-8.3) g/dL Albumin (3.5-5.0) g/dL Globulin (2.2-3.9) gm/dL Albumin/Globulin Ratio (1.0-2.1) Procalcitonin (0.19-0.49) NG/ML Laboratory Results - last 24 hr 04/19/17 04/19/17 04/19/17 17:32 17:42 23:44 WBC 17.6 H RBC 3.16 L Hgb 9.0 L Hct 26.7 L MCV 84.6 MCH 28.3 MCHC 33.5 RDW 15.5 H Plt Count 371 MPV 7.7 Neut % (Auto) 71.9 Lymph % (Auto) 8.2 L Frontier % (Auto) 14.7 H Eos % (Auto) 4.9 H Baso % (Auto) 0.3 Neut # 12.7 H Lymph # 1.4 Frontier # 2.6 H Eos # 0.9 H Baso # 0.1 Neutrophils % (Manual) 80 H Band Neutrophils % 1 Lymphocytes % (Manual) 7 L Monocytes % (Manual) 9 Eosinophils % (Manual) 3 Platelet Estimate Normal Plt Clumps, EDTA Present Polychromasia Hypochromasia (manual) Anisocytosis (manual) Puncture Site pCO2 pO2 HCO3 ABG pH ABG Total CO2 ABG O2 Saturation ABG Base Excess ABG Hemoglobin ABG Carboxyhemoglobin POC ABG HHb (Measured) ABG Methemoglobin Daniel Test A-a O2 Difference Respiratory Index Hgb O2 Saturation Vent Mode Mechanical Rate FiO2 Tidal Volume PEEP Sodium Potassium Chloride Carbon Dioxide Anion Gap BUN Creatinine Est GFR ( Amer) Est GFR (Non-Af Amer) POC Glucose (mg/dL) 77 144 H Random Glucose Calcium Phosphorus Magnesium Total Bilirubin AST ALT Alkaline Phosphatase Total Protein Albumin Globulin Albumin/Globulin Ratio Procalcitonin 04/20/17 04/20/17 04/20/17 05:14 05:34 06:41 WBC 15.7 H RBC 2.99 L Hgb 8.7 L Hct 25.8 L MCV 86.2 MCH 29.1 MCHC 33.7 RDW 15.9 H Plt Count 374 MPV 8.4 Neut % (Auto) 68.4 Lymph % (Auto) 9.8 L Frontier % (Auto) 14.6 H Eos % (Auto) 6.9 H Baso % (Auto) 0.3 Neut # 10.8 H Lymph # 1.5 Frontier # 2.3 H Eos # 1.1 H Baso # 0.0 Neutrophils % (Manual) 77 H Band Neutrophils % Lymphocytes % (Manual) 5 L Monocytes % (Manual) 14 H Eosinophils % (Manual) 4 Platelet Estimate Normal Plt Clumps, EDTA Polychromasia Slight Hypochromasia (manual) Slight Anisocytosis (manual) Slight Puncture Site Rr pCO2 34 L pO2 166 H HCO3 23.0 ABG pH 7.41 ABG Total CO2 22.6 ABG O2 Saturation 99.1 H ABG Base Excess -2.4 L ABG Hemoglobin 13.1 ABG Carboxyhemoglobin 1.2 POC ABG HHb (Measured) 0.9 ABG Methemoglobin 1.3 Daniel Test Pos A-a O2 Difference 77.0 Respiratory Index 0.5 Hgb O2 Saturation 96.5 Vent Mode Prvc Mechanical Rate 14 FiO2 40.0 Tidal Volume 450 PEEP 5 Sodium Potassium Chloride Carbon Dioxide Anion Gap BUN Creatinine Est GFR ( Amer) Est GFR (Non-Af Amer) POC Glucose (mg/dL) 122 H Random Glucose Calcium Phosphorus Magnesium Total Bilirubin AST ALT Alkaline Phosphatase Total Protein Albumin Globulin Albumin/Globulin Ratio Procalcitonin 04/20/17 04/20/17 04/20/17 06:41 10:52 11:35 WBC RBC Hgb Hct MCV MCH MCHC RDW Plt Count MPV Neut % (Auto) Lymph % (Auto) Frontier % (Auto) Eos % (Auto) Baso % (Auto) Neut # Lymph # Frontier # Eos # Baso # Neutrophils % (Manual) Band Neutrophils % Lymphocytes % (Manual) Monocytes % (Manual) Eosinophils % (Manual) Platelet Estimate Plt Clumps, EDTA Polychromasia Hypochromasia (manual) Anisocytosis (manual) Puncture Site pCO2 pO2 HCO3 ABG pH ABG Total CO2 ABG O2 Saturation ABG Base Excess ABG Hemoglobin ABG Carboxyhemoglobin POC ABG HHb (Measured) ABG Methemoglobin Daniel Test A-a O2 Difference Respiratory Index Hgb O2 Saturation Vent Mode Mechanical Rate FiO2 Tidal Volume PEEP Sodium 133 Potassium 4.4 Chloride 96 L Carbon Dioxide 28 Anion Gap 14 BUN 25 H Creatinine 3.1 H Est GFR ( Amer) 21 Est GFR (Non-Af Amer) 17 POC Glucose (mg/dL) 135 H Random Glucose 123 H Calcium 7.4 L Phosphorus 2.4 L Magnesium 2.0 Total Bilirubin 0.8 AST 29 ALT 16 Alkaline Phosphatase 89 Total Protein 5.5 L Albumin 2.6 L Globulin 2.9 Albumin/Globulin Ratio 0.9 L Procalcitonin 2.07 H Critical Care Progress Note - Nutrition Nutrition: Nutrition Category Date Time Status NPO Diet [DIET] Diets 04/08/17 Dinner Active Assessment/Plan (1) SMAS (superior mesenteric artery syndrome) Current Visit: Yes Status: Acute Comment: (2) Acute renal failure Current Visit: Yes Status: Acute (3) Mental retardation Current Visit: No Status: Acute Attending/Attestation - Attestation I have personally seen and examined this patient.: Yes I have fully participated in the care of the patient.: Yes I have reviewed all pertinent clinical information: Yes Notes (Text): 04/20/17 16:36 Patient seen and examined in the intensive care unit. Case discussed with house staff in the morning rounds. Patient remained intubated on ventilatory support not tolerating weaning IV sedation and fentanyl drip was stopped for a few hours On IV antibiotics as per infectious disease Case discussed with Dr. Shultz Patient seen by surgery Serosanguineous drainage from the drains Started on feeding Follow-up CBC Continue hemodialysis as per nephrology
--- NOTE | 2017-04-20 16:12 | CP.PCM.PN ---
Subjective - Date & Time of Evaluation Date of Evaluation: 04/20/17 Time of Evaluation: 06:00 - Subjective Subjective: 37F w/ hx of Schizophrenia, mental disability who presents to the hospital due to abd pain diarrhea. She was found to have acute pancreatitis and severe gastric distention with retained food. Renal function is worsening with Cr rising and BUN s/p HD. 1. SMA syndrome 2. Anemia 3. Sepsis 4. Hemorrhagic/ischemic gastropathy 5. Phytobezor, marked stomach distention 6. Complicated Acute pancreatitis 7. Renal failure s/p HD 8. s/p Asim-en-Y gastrojejunostomy, jejunostomy feeding tube and ileostomy Patient resting comfortably in bed. NGT to suction. Intubated s/p gastro jejunostomy POD #2, patient had temperature 100.7. tylenol administered. Yeast in urine, diflucan started. Procal 2.07 LLQ 530cc over 24 hours, serosanginous RLQ jejunostomy bag 235cc over 24 hrs serous Temperature remains elevated after tylenol. Objective - Vital Signs/Intake and Output Vital Signs (last 24 hours): Temp Pulse Resp BP Pulse Ox 99.9 F H 138 H 14 108/68 99 04/20/17 11:10 04/20/17 14:29 04/20/17 14:29 04/20/17 14:29 04/20/17 14:29 Intake and Output: 04/20/17 04/20/17 06:59 18:59 Intake Total 1951.0 1088.5 Output Total 795 890 Balance 1156.0 198.5 - Medications Medications: Current Medications Acetaminophen (Tylenol 650mg/20.3ml Solution Ud) 650 mg PO Q6 PRN PRN Reason: Temperature Last Admin: 04/20/17 10:10 Dose: 650 mg Acetaminophen (Tylenol 650 Mg Supp) 650 mg OR Q4 PRN PRN Reason: Fever >100.4 F Albuterol/Ipratropium (Duoneb 3 Mg/0.5 Mg (3 Ml) Ud) 3 ml INH RQ6 AGUSTIN Last Admin: 04/20/17 13:23 Dose: 3 ml Ascorbic Acid (Vitamin C 500 Mg Tab) 500 mg PO DAILY AGUSTIN Last Admin: 04/20/17 10:06 Dose: 500 mg Haloperidol Lactate (Haldol) 1 mg IVP BID PRN PRN Reason: Agitation Last Admin: 04/17/17 00:00 Dose: 1 mg Hydromorphone HCl (Dilaudid) 0.5 mg IVP Q3 PRN PRN Reason: Pain, moderate (4-7) Last Admin: 04/17/17 20:17 Dose: 0.5 mg Hydromorphone HCl (Dilaudid) 1 mg IVP Q3 PRN PRN Reason: Pain, severe (8-10) Last Admin: 04/18/17 14:50 Dose: 1 mg Piperacillin Sod/Tazobactam Sod (Zosyn 2.25 Gm Iv Premix) 2.25 gm in 50 mls @ 100 mls/hr IVPB Q8H AGUSTIN Last Admin: 04/20/17 10:09 Dose: 100 mls/hr Midazolam HCl 100 mg/ Sodium (Chloride) 100 mls @ 1.35 mls/hr IV .Q24H AGUSTIN; 0.02 MG/KG/HR PRN Reason: Protocol Last Titration: 04/20/17 08:00 Dose: 0 mg/kg/hr, 0 mls/hr Fentanyl Citrate 2,500 mcg/ (Sodium Chloride) 250 mls @ 13.56 mls/hr IV .[id number] AGUSTIN; 2 MCG/KG/HR PRN Reason: Protocol Last Titration: 04/20/17 14:00 Dose: 0.8 mcg/kg/hr, 5.42 mls/hr Chromium/Copper/Manganese/Zinc 1 ml/ Amino Acids/Electrolytes/Dextrose 1,001 mls @ 63 mls/hr IV .[id number] ONE Stop: 04/21/17 01:53 Last Admin: 04/20/17 10:11 Dose: 63 mls/hr Multivitamins/Vitamin C 10 ml/Amino Acids/Electrolytes/Dextrose 1,010 mls @ 63 mls/hr IV .Q16H2M AGUSTIN Stop: 04/21/17 10:00 Amino Acids/Electrolytes/Dextrose (Clinimix 5%-25% "E") 1,000 mls @ 63 mls/hr IV .[id number] AGUSTIN Stop: 04/21/17 18:00 Fat Emulsion Intravenous (Intralipid 20%) 250 mls @ 42 mls/hr IV 1800 ONE Stop: 04/20/17 23:57 Fluconazole (Diflucan Iv 200 Mg/100 Ml Ns) 100 mls @ 100 mls/hr IVPB DAILY [facility] Lorazepam (Ativan) 0.5 mg IVP Q3H PRN PRN Reason: Anxiety Last Admin: 04/18/17 03:30 Dose: 0.5 mg Ondansetron HCl (Zofran Inj) 4 mg IVP Q6H PRN PRN Reason: Nausea/Vomiting Last Admin: 04/11/17 21:39 Dose: 4 mg Pantoprazole Sodium (Protonix Inj) 20 mg IVP BID [facility] Last Admin: 04/20/17 10:07 Dose: 20 mg Saccharomyces Boulardii (Florastor) 250 mg PO BID [facility] Last Admin: 04/20/17 10:07 Dose: 250 mg Thiamine HCl (Vitamin B1 Tab) 100 mg PO DAILY [facility] Last Admin: 04/20/17 10:08 Dose: 100 mg - Labs Labs: 04/20/17 06:41 04/20/17 06:41 PT 13.0 SECONDS (9.7-12.2) H 04/18/17 06:44 INR 1.2 04/18/17 06:44 APTT 30 SECONDS (21-34) 04/17/17 06:38 - Constitutional Appears: Chronically Ill - Head Exam Head Exam: NORMOCEPHALIC - Eye Exam Eye Exam: PERRL - ENT Exam ENT Exam: Mucous Membranes Dry - Neck Exam Neck Exam: absent: Lymphadenopathy - Respiratory Exam Respiratory Exam: Decreased Breath Sounds - Cardiovascular Exam Cardiovascular Exam: REGULAR RHYTHM - GI/Abdominal Exam GI & Abdominal Exam: Distended - Rectal Exam Rectal Exam: Deferred - Exam Exam: NORMAL INSPECTION - Extremities Exam Extremities Exam: absent: Pedal Edema - Back Exam Back Exam: absent: CVA tenderness (L), CVA tenderness (R) - Neurological Exam Neurological Exam: Altered Assessment and Plan (1) Acute pancreatitis Status: Acute (2) Leucocytosis Status: Acute - Assessment and Plan (Free Text) Assessment: 37F w/ hx of Schizophrenia, mental disability who presents to the hospital due to abd pain diarrhea. She was found to have acute pancreatitis and severe gastric distention with retained food. Renal function is worsening with Cr rising and BUN s/p HD. 1. SMA syndrome 2. Anemia 3. Sepsis 4. Hemorrhagic/ischemic gastropathy 5. Phytobezor, marked stomach distention 6. Complicated Acute pancreatitis 7. Renal failure s/p HD 8. s/p Asim-en-Y gastrojejunostomy, jejunostomy feeding tube and ileostomy procalcitonin elevated IV antibiotics in progress diflucan added
[2017-04-20 17:36] LABS: BASO % 0.3 % (0.0-2.0); EOS % 6.7 % (0.0-4.0); HEMOGLOBIN 7.7 g/dL (11.0-16.0); LYMPH # 1.4 K/uL (1.0-4.3); LYMPH % 9.9 % (20.0-40.0); MEAN CELL VOLUME 85.9 fL (81.0-99.0); MEAN CORPUSCULAR HEMOGLOBIN 27.8 pg (27.0-31.0); MEAN CORPUSCULAR HGB CONC 32.4 g/dL (33.0-37.0); MEAN PLATELET VOLUME 7.7 fL (7.2-11.7); MONO # 2.1 K/uL (0.0-0.8); MONO % 14.8 % (0.0-10.0); NEUT # 9.8 K/uL (1.8-7.0); NEUT % 68.3 % (50.0-75.0); NRBC % 0.1 % (0.0-2.0); PLATELET COUNT 376 K/uL (130-400); RBC 2.76 Mil/uL (3.80-5.20); WHITE BLOOD COUNT 14.4 K/uL (4.8-10.8)
[2017-04-20 17:49] LABS: ALBUMIN 2.5 g/dL (3.5-5.0); CALCIUM 7.3 mg/dl (8.6-10.4)
[2017-04-20 17:57] LABS: ALB/GLOB RATIO 0.9 (1.0-2.1)
[2017-04-20] MEDS ORDERED: TPN IV SCH (18:00)
[2017-04-20] MEDS ORDERED: Fat Emulsion 20% IV 250 ML IV ONE (18:00)
[2017-04-20 18:08] LABS: EOSINOPHIL 6 % (0-4); LYMPHOCYTE 9 % (20-40); MONOCYTE 6 % (0-10); NEUTROPHIL 79 % (50-75); TOTAL CELLS COUNTED 100
[2017-04-20 18:09] LABS: ANISOCYTOSIS SLIGHT; HYPOCHROMIC SLIGHT; PLATELET ESTIMATE NORMAL (NORMAL)
--- NOTE | 2017-04-20 18:10 | CP.PCM.PN ---
<RaoulKatheryn - Last Filed: 04/20/17 18:15> Subjective - Date & Time of Evaluation Date of Evaluation: 04/20/17 Time of Evaluation: 15:00 - Subjective Subjective: GI Fellow PGY4 Progress Note Pt seen and evaluated at bedside, pt intubated on MV post surgery. Pt uncomfortable and in pain, HR 130s. Pt with serosangious outpt via ostomy and TOBI drain. Pt on TF tolerating well, no BM since surgery. ROS: A 12pt ROS was unable to be obtained, pt nonverbal Objective - Vital Signs/Intake and Output Vital Signs (last 24 hours): Temp Pulse Resp BP Pulse Ox 100.0 F H 145 H 15 114/77 99 04/20/17 16:00 04/20/17 16:08 04/20/17 16:08 04/20/17 16:08 04/20/17 16:08 Intake and Output: 04/20/17 04/20/17 06:59 18:59 Intake Total 1951.0 1368.9 Output Total 795 950 Balance 1156.0 418.9 - Medications Medications: Current Medications Acetaminophen (Tylenol 650mg/20.3ml Solution Ud) 650 mg PO Q6 PRN PRN Reason: Temperature Last Admin: 04/20/17 10:10 Dose: 650 mg Acetaminophen (Tylenol 650 Mg Supp) 650 mg NC Q4 PRN PRN Reason: Fever >100.4 F Albuterol/Ipratropium (Duoneb 3 Mg/0.5 Mg (3 Ml) Ud) 3 ml INH RQ6 [facility] Last Admin: 04/20/17 13:23 Dose: 3 ml Ascorbic Acid (Vitamin C 500 Mg Tab) 500 mg PO DAILY [facility] Last Admin: 04/20/17 10:06 Dose: 500 mg Haloperidol Lactate (Haldol) 1 mg IVP BID PRN PRN Reason: Agitation Last Admin: 04/17/17 00:00 Dose: 1 mg Hydromorphone HCl (Dilaudid) 0.5 mg IVP Q3 PRN PRN Reason: Pain, moderate (4-7) Last Admin: 04/17/17 20:17 Dose: 0.5 mg Hydromorphone HCl (Dilaudid) 1 mg IVP Q3 PRN PRN Reason: Pain, severe (8-10) Last Admin: 04/18/17 14:50 Dose: 1 mg Midazolam HCl 100 mg/ Sodium (Chloride) 100 mls @ 1.35 mls/hr IV .Q24H [facility]; 0.02 MG/KG/HR PRN Reason: Protocol Last Titration: 04/20/17 08:00 Dose: 0 mg/kg/hr, 0 mls/hr Fentanyl Citrate 2,500 mcg/ (Sodium Chloride) 250 mls @ 13.56 mls/hr IV .[id number] [facility]; 2 MCG/KG/HR PRN Reason: Protocol Last Titration: 04/20/17 16:30 Dose: 1.5 mcg/kg/hr, 10.17 mls/hr Chromium/Copper/Manganese/Zinc 1 ml/ Amino Acids/Electrolytes/Dextrose 1,001 mls @ 63 mls/hr IV .[id number] ONE Stop: 04/21/17 01:53 Last Admin: 04/20/17 10:11 Dose: 63 mls/hr Multivitamins/Vitamin C 10 ml/Amino Acids/Electrolytes/Dextrose 1,010 mls @ 63 mls/hr IV .[id number] [facility] Stop: 04/21/17 10:00 Last Admin: 04/20/17 18:00 Dose: 63 mls/hr Amino Acids/Electrolytes/Dextrose (Clinimix 5%-25% "E") 1,000 mls @ 63 mls/hr IV .[id number] [facility] Stop: 04/21/17 18:00 Fat Emulsion Intravenous (Intralipid 20%) 250 mls @ 42 mls/hr IV 1800 ONE Stop: 04/20/17 23:57 Last Admin: 04/20/17 17:51 Dose: 42 mls/hr Fluconazole (Diflucan Iv 200 Mg/100 Ml Ns) 100 mls @ 100 mls/hr IVPB DAILY [facility] Meropenem 500 mg/ Sodium (Chloride) 100 mls @ 100 mls/hr IVPB Q8 [facility] Lorazepam (Ativan) 0.5 mg IVP Q3H PRN PRN Reason: Anxiety Last Admin: 04/18/17 03:30 Dose: 0.5 mg Ondansetron HCl (Zofran Inj) 4 mg IVP Q6H PRN PRN Reason: Nausea/Vomiting Last Admin: 04/11/17 21:39 Dose: 4 mg Pantoprazole Sodium (Protonix Inj) 20 mg IVP BID [facility] Last Admin: 04/20/17 17:49 Dose: 20 mg Saccharomyces Boulardii (Florastor) 250 mg PO BID [facility] Last Admin: 04/20/17 17:49 Dose: 250 mg Thiamine HCl (Vitamin B1 Tab) 100 mg PO DAILY [facility] Last Admin: 04/20/17 10:08 Dose: 100 mg - Labs Labs: 04/20/17 17:33 04/20/17 17:33 PT 13.0 SECONDS (9.7-12.2) H 04/18/17 06:44 INR 1.2 04/18/17 06:44 APTT 30 SECONDS (21-34) 04/17/17 06:38 - Constitutional Appears: Non-toxic, In Acute Distress, Chronically Ill - Head Exam Head Exam: ATRAUMATIC - ENT Exam ENT Exam: Mucous Membranes Dry Additional comments: NGT - Respiratory Exam Respiratory Exam: Rhonchi, Respiratory Distress - Cardiovascular Exam Cardiovascular Exam: Tachycardia - GI/Abdominal Exam GI & Abdominal Exam: Soft, Normal Bowel Sounds Additional comments: ostomy with jejunostomy with feeding tube, TOBI drain with serosangious fluid - Extremities Exam Extremities Exam: Pedal Edema - Psychiatric Exam Psychiatric exam: Agitated, Depressed - Skin Skin Exam: Dry, Intact, Normal Color, Warm Assessment and Plan - Assessment and Plan (Free Text) Assessment: Alondra Rivera is a 37F w/ hx of Schizophrenia, mental disability who presents to the hospital due to abd pain diarrhea. She was found to have acute pancreatitis and severe gastric distention with retained food. Renal function is worsening with Cr rising and BUN s/p HD. 1. SMA syndrome 2. Anemia 3. Sepsis 4. Hemorrhagic/ischemic gastropathy 5. Phytobezor, marked stomach distention 6. Complicated Acute pancreatitis 7. Renal failure s/p HD 8. s/p Asim-en-Y gastrojejunostomy, jejunostomy feeding tube and ileostomy Plan: -Continue supportive care with pain control and s/p mechanical ventilation post- op -Continue NPO -Continue PPI 40 IV bid -Pancreatitis improved -No GI bleeding, keep hgb > 7 -Continue antibiotics as per ID -Renal failure s/p HD -s/p Asim-en-Y gastrojejunostomy, jejunostomy feeding tube, further recommendations per surgery -May need repeat CT imaging in a few days -Continue Tube Feeds -Please call with any questions or concerns <Dov Meade - Last Filed: 04/20/17 23:27> Objective - Vital Signs/Intake and Output Vital Signs (last 24 hours): Temp Pulse Resp BP Pulse Ox 100.1 F H 139 H 14 98/56 L 100 04/20/17 20:00 04/20/17 23:00 04/20/17 23:00 04/20/17 22:57 04/20/17 23:00 Intake and Output: 04/20/17 04/21/17 18:59 06:59 Intake Total 1541.7 746.0 Output Total 962 231 Balance 579.7 515.0 - Medications Medications: Current Medications Acetaminophen (Tylenol 650mg/20.3ml Solution Ud) 650 mg PO Q6 PRN PRN Reason: Temperature Last Admin: 04/20/17 10:10 Dose: 650 mg Acetaminophen (Tylenol 650 Mg Supp) 650 mg NC Q4 PRN PRN Reason: Fever >100.4 F Albuterol/Ipratropium (Duoneb 3 Mg/0.5 Mg (3 Ml) Ud) 3 ml INH RQ6 [facility] Last Admin: 04/20/17 19:40 Dose: Not Given Ascorbic Acid (Vitamin C 500 Mg Tab) 500 mg PO DAILY [facility] Last Admin: 04/20/17 10:06 Dose: 500 mg Haloperidol Lactate (Haldol) 1 mg IVP BID PRN PRN Reason: Agitation Last Admin: 04/17/17 00:00 Dose: 1 mg Hydromorphone HCl (Dilaudid) 0.5 mg IVP Q3 PRN PRN Reason: Pain, moderate (4-7) Last Admin: 04/17/17 20:17 Dose: 0.5 mg Hydromorphone HCl (Dilaudid) 1 mg IVP Q3 PRN PRN Reason: Pain, severe (8-10) Last Admin: 04/18/17 14:50 Dose: 1 mg Midazolam HCl 100 mg/ Sodium (Chloride) 100 mls @ 1.35 mls/hr IV .Q24H [facility]; 0.02 MG/KG/HR PRN Reason: Protocol Last Titration: 04/20/17 20:00 Dose: 0.1 mg/kg/hr, 7 mls/hr Fentanyl Citrate 2,500 mcg/ (Sodium Chloride) 250 mls @ 13.56 mls/hr IV .[id number] [facility]; 2 MCG/KG/HR PRN Reason: Protocol Last Titration: 04/20/17 18:15 Dose: 2 mcg/kg/hr, 13.56 mls/hr Chromium/Copper/Manganese/Zinc 1 ml/ Amino Acids/Electrolytes/Dextrose 1,001 mls @ 63 mls/hr IV .[id number] ONE Stop: 04/21/17 01:53 Last Admin: 04/20/17 10:11 Dose: 63 mls/hr Multivitamins/Vitamin C 10 ml/Amino Acids/Electrolytes/Dextrose 1,010 mls @ 63 mls/hr IV .Q16H2M [facility] Stop: 04/21/17 10:00 Last Admin: 04/20/17 18:00 Dose: 63 mls/hr Amino Acids/Electrolytes/Dextrose (Clinimix 5%-25% "E") 1,000 mls @ 63 mls/hr IV .[id number] [facility] Stop: 04/21/17 18:00 Fat Emulsion Intravenous (Intralipid 20%) 250 mls @ 42 mls/hr IV 1800 ONE Stop: 04/20/17 23:57 Last Admin: 04/20/17 17:51 Dose: 42 mls/hr Fluconazole (Diflucan Iv 200 Mg/100 Ml Ns) 100 mls @ 100 mls/hr IVPB DAILY [facility] Meropenem 500 mg/ Sodium (Chloride) 100 mls @ 100 mls/hr IVPB Q8 [facility] Last Admin: 04/20/17 21:48 Dose: 100 mls/hr Dexmedetomidine HCl 200 mcg/ (Sodium Chloride) 50 mls @ 3.4 mls/hr IV TITR PRN ; Protocol; 0.2 MCG/KG/HR PRN Reason: Agitation Lorazepam (Ativan) 0.5 mg IVP Q3H PRN PRN Reason: Anxiety Last Admin: 04/18/17 03:30 Dose: 0.5 mg Lorazepam (Ativan) 2 mg IVP Q4H PRN PRN Reason: Seizure activity Last Admin: 04/20/17 20:00 Dose: 2 mg Ondansetron HCl (Zofran Inj) 4 mg IVP Q6H PRN PRN Reason: Nausea/Vomiting Last Admin: 04/11/17 21:39 Dose: 4 mg Pantoprazole Sodium (Protonix Inj) 20 mg IVP BID [facility] Last Admin: 04/20/17 17:49 Dose: 20 mg Saccharomyces Boulardii (Florastor) 250 mg PO BID [facility] Last Admin: 04/20/17 17:49 Dose: 250 mg Thiamine HCl (Vitamin B1 Tab) 100 mg PO DAILY [facility] Last Admin: 04/20/17 10:08 Dose: 100 mg - Labs Labs: 04/20/17 17:33 04/20/17 17:33 PT 13.0 SECONDS (9.7-12.2) H 04/18/17 06:44 INR 1.2 04/18/17 06:44 APTT 30 SECONDS (21-34) 04/17/17 06:38 Attending/Attestation - Attestation I have personally seen and examined this patient.: Yes I have fully participated in the care of the patient.: Yes I have reviewed all pertinent clinical information, including history, physical exam and plan: Yes Notes (Text): 04/20/17 23:25 37 year old female with h/o mental disability/schizophrenia who is admitted with abdominal pain, found to have severe gastric distention, acute pancreatitis , gastric bezoar, severe upper GI bleeding due to gastric ulceration due to SMA syndrome. 1. SMA syndrome 2. Acute pancreatitis 3. Gastric bezoar 4. Gastric ulcer with hemorrhage Plan: -patient is now POD 3 from surgery -she underwent gastro-jejunostomy as well as a feeding jejunostomy -she is tolerating tube feeds, but no bm yet -still having bilious output from NGT -no GI bleeding -continue PPI -on dialysis for renal failure -weaning from sedation/ventilator per ICU -continue supportive measures
[2017-04-20] MEDS ORDERED: Propofol 10 mg/ml Inj (20 ML) ONE ×2 (18:16→18:58)
[2017-04-20] MEDS ORDERED: Propofol 10 mg/ml Inj (20 ML) IV ONE (18:57)
[2017-04-20] MEDS: Meropenem 500 MG in Sodium Chloride 0.9% 100 ML IVPB SCH (21:48)
--- NOTE | 2017-04-21 01:05 | CP.PCM.PN ---
Subjective - Date & Time of Evaluation Date of Evaluation: 04/20/17 Time of Evaluation: 13:20 - Subjective Subjective: Patient seen and evaluated still tachycardiac Physical Exam - Constitutional Appears: In Acute Distress, Agitated, Chronically Ill - Head Exam Head Exam: ATRAUMATIC, NORMAL INSPECTION - Eye Exam Eye Exam: EOMI, Normal appearance - Neck Exam Neck exam: Positive for: Normal Inspection. Negative for: Tenderness - Respiratory Exam Respiratory Exam: Decreased Breath Sounds, NORMAL BREATHING PATTERN - Cardiovascular Exam Cardiovascular Exam: Tachycardia, +S1 - GI/Abdominal Exam GI & Abdominal Exam: Soft, Tenderness - Extremities Exam Extremities exam: Positive for: normal inspection. Negative for: tenderness - Neurological Exam Neurological exam: Altered, CN II-XII Intact - Skin Skin Exam: Dry, Warm Objective - Vital Signs/Intake and Output Vital Signs (last 24 hours): Temp Pulse Resp BP Pulse Ox 100.1 F H 139 H 14 98/56 L 100 04/20/17 20:00 04/20/17 23:00 04/20/17 23:00 04/20/17 22:57 04/20/17 23:00 Intake and Output: 04/20/17 04/21/17 18:59 06:59 Intake Total 1541.7 746.0 Output Total 962 231 Balance 579.7 515.0 - Medications Medications: Current Medications Acetaminophen (Tylenol 650mg/20.3ml Solution Ud) 650 mg PO Q6 PRN PRN Reason: Temperature Last Admin: 04/20/17 10:10 Dose: 650 mg Acetaminophen (Tylenol 650 Mg Supp) 650 mg CO Q4 PRN PRN Reason: Fever >100.4 F Albuterol/Ipratropium (Duoneb 3 Mg/0.5 Mg (3 Ml) Ud) 3 ml INH RQ6 [facility] Last Admin: 04/20/17 19:40 Dose: Not Given Ascorbic Acid (Vitamin C 500 Mg Tab) 500 mg PO DAILY [facility] Last Admin: 04/20/17 10:06 Dose: 500 mg Haloperidol Lactate (Haldol) 1 mg IVP BID PRN PRN Reason: Agitation Last Admin: 04/17/17 00:00 Dose: 1 mg Hydromorphone HCl (Dilaudid) 0.5 mg IVP Q3 PRN PRN Reason: Pain, moderate (4-7) Last Admin: 04/17/17 20:17 Dose: 0.5 mg Hydromorphone HCl (Dilaudid) 1 mg IVP Q3 PRN PRN Reason: Pain, severe (8-10) Last Admin: 04/18/17 14:50 Dose: 1 mg Midazolam HCl 100 mg/ Sodium (Chloride) 100 mls @ 1.35 mls/hr IV .Q24H [facility]; 0.02 MG/KG/HR PRN Reason: Protocol Last Titration: 04/20/17 20:00 Dose: 0.1 mg/kg/hr, 7 mls/hr Fentanyl Citrate 2,500 mcg/ (Sodium Chloride) 250 mls @ 13.56 mls/hr IV .[id number] [facility]; 2 MCG/KG/HR PRN Reason: Protocol Last Titration: 04/20/17 18:15 Dose: 2 mcg/kg/hr, 13.56 mls/hr Chromium/Copper/Manganese/Zinc 1 ml/ Amino Acids/Electrolytes/Dextrose 1,001 mls @ 63 mls/hr IV .[id number] ONE Stop: 04/21/17 01:53 Last Admin: 04/20/17 10:11 Dose: 63 mls/hr Multivitamins/Vitamin C 10 ml/Amino Acids/Electrolytes/Dextrose 1,010 mls @ 63 mls/hr IV .Q16H2M [facility] Stop: 04/21/17 10:00 Last Admin: 04/20/17 18:00 Dose: 63 mls/hr Amino Acids/Electrolytes/Dextrose (Clinimix 5%-25% "E") 1,000 mls @ 63 mls/hr IV .[id number] [facility] Stop: 04/21/17 18:00 Fluconazole (Diflucan Iv 200 Mg/100 Ml Ns) 100 mls @ 100 mls/hr IVPB DAILY [facility] Meropenem 500 mg/ Sodium (Chloride) 100 mls @ 100 mls/hr IVPB Q8 [facility] Last Admin: 04/20/17 21:48 Dose: 100 mls/hr Dexmedetomidine HCl 200 mcg/ (Sodium Chloride) 50 mls @ 3.4 mls/hr IV TITR PRN ; Protocol; 0.2 MCG/KG/HR PRN Reason: Agitation Lorazepam (Ativan) 0.5 mg IVP Q3H PRN PRN Reason: Anxiety Last Admin: 04/18/17 03:30 Dose: 0.5 mg Lorazepam (Ativan) 2 mg IVP Q4H PRN PRN Reason: Seizure activity Last Admin: 04/20/17 20:00 Dose: 2 mg Ondansetron HCl (Zofran Inj) 4 mg IVP Q6H PRN PRN Reason: Nausea/Vomiting Last Admin: 04/11/17 21:39 Dose: 4 mg Pantoprazole Sodium (Protonix Inj) 20 mg IVP BID [facility] Last Admin: 04/20/17 17:49 Dose: 20 mg Saccharomyces Boulardii (Florastor) 250 mg PO BID [facility] Last Admin: 04/20/17 17:49 Dose: 250 mg Thiamine HCl (Vitamin B1 Tab) 100 mg PO DAILY [facility] Last Admin: 04/20/17 10:08 Dose: 100 mg - Labs Labs: 04/20/17 17:33 04/20/17 17:33 PT 13.0 SECONDS (9.7-12.2) H 04/18/17 06:44 INR 1.2 04/18/17 06:44 APTT 30 SECONDS (21-34) 04/17/17 06:38 Assessment and Plan - Assessment and Plan (Free Text) Assessment: Assessment & Plan - Assessment and Plan (Free Text) Assessment: Tachycardia JIMBO Acute pancreatitis Volume depletion Sepsis syndrome Intra-abdominal fluid collection- possible abscess Plan: ECHO: Normal EF and no valvular issues Tachycardia most likely due to medical issues Cardizem drip/PO as needed
[2017-04-21] MEDS: Albuterol-Ipratrop 3 mg / 0.5 (3 ml) UD INH SCH ×3 (01:08→20:08)
[2017-04-21 01:19] LABS: STOOL SODIUM 6.1 mEq/L
[2017-04-21] MEDS: Meropenem 500 MG in Sodium Chloride 0.9% 100 ML IVPB SCH ×2 (05:35→14:30)
[2017-04-21 05:58] LABS: ARTERIAL BLOOD GAS HCO3 28.5 mmol/L (21-28); ARTERIAL BLOOD GAS HEMOGLOBIN 7.3 g/dL (11.7-17.4); ARTERIAL BLOOD GAS O2 SAT 97.5 % (95-98); ARTERIAL BLOOD GAS PCO2 43 mm/Hg (35-45); ARTERIAL BLOOD GAS PH 7.44 (7.35-7.45); ARTERIAL BLOOD GAS PO2 73 mm/Hg (80-100); ARTERIAL BLOOD GAS TCO2 30.5 mmol/L (22-28)
[2017-04-21] MEDS ORDERED: Dexmedetomidine Hydrochloride 200 MCG in Sodium Chloride 0.9% 48 ML IV PRN (06:00)
[2017-04-21 06:46] LABS: BASO # 0.1 K/uL (0.0-0.2); BASO % 0.4 % (0.0-2.0); EOS # 1.1 K/uL (0.0-0.7); EOS % 8.3 % (0.0-4.0); LYMPH # 1.3 K/uL (1.0-4.3); LYMPH % 10.1 % (20.0-40.0); MEAN CELL VOLUME 86.8 fL (81.0-99.0); MEAN CORPUSCULAR HEMOGLOBIN 27.8 pg (27.0-31.0); MEAN PLATELET VOLUME 8.6 fL (7.2-11.7); MONO # 1.7 K/uL (0.0-0.8); NEUT % 68.2 % (50.0-75.0); NRBC % 0.1 % (0.0-2.0); RBC 2.5 Mil/uL (3.80-5.20); RED CELL DISTRIBUTION WIDTH 16.1 % (11.5-14.5); WHITE BLOOD COUNT 13.2 K/uL (4.8-10.8)
[2017-04-21 07:13] LABS: ALB/GLOB RATIO 0.9 (1.0-2.1); ALBUMIN 2.4 g/dL (3.5-5.0); CALCIUM 7.1 mg/dl (8.6-10.4)
--- NOTE | 2017-04-21 07:30 | CP.CCUPN ---
<Pari Smith - Last Filed: 04/21/17 10:55> CCU Subjective - Physician Review Subjective (Free Text): 04/21/17 07:[address] Granger Patient seen and examined at bedside. Patient had 2 episodes of focal seizures. First one was witnessed by Dr. Hernandez and this resident. Second one was seen with Dr. Guerin. Within one hour of each other. First witnessed seizure had scrunching of face, with fasciculation of the eyes. with upward gaze when eyes opened. 2mg Ativan pushed and then the seizure resolved. Per Dr. Guerin, the second seizure was similar in nature. 24 hour TOBI drain output LLQ 255, serosanguinous 24 hour jejunostomy bag output RLQ 5cc, serosanguinous 1uPRBC ordered for transfusion. TPN stopped since tube feeds are at goal Critical Care Time Spent (in minutes): 35 CCU Objective - Vital Signs / Intake & Output Vital Signs (Last 4 hours): Vital Signs Temp Pulse Resp BP Pulse Ox 04/21/17 06:14 100/66 04/21/17 06:13 136 H 14 99 04/21/17 06:00 128 H 14 99 04/21/17 05:57 127 H 14 83/45 L 100 04/21/17 05:27 126 H 14 89/51 L 100 04/21/17 05:00 130 H 14 99 04/21/17 04:57 128 H 14 92/51 L 99 04/21/17 04:27 133 H 14 92/52 L 99 04/21/17 04:00 99.5 F 131 H 14 100 04/21/17 03:57 124 H 13 92/50 L 100 04/21/17 03:27 125 H 14 89/49 L 100 Intake and Output (Last 8hrs): Intake & Output 04/20/17 04/21/17 04/21/17 22:59 06:59 14:59 Intake Total 1042.4 1177.1 115.2 Output Total 343 810 50 Balance 699.4 367.1 65.2 Intake: IV 40 215 Intake, IV Amount 837.4 732.1 85.2 Left Wrist 98.4 122.1 18.5 NEHA #20 25 22 3.7 Right Femoral 210 84 Rt Femoral 504 504 63 Tube Feeding 155 230 30 Other 10 Output: Gastric Amount 200 Right Nares 200 Drainage 70 140 Left Lower Abdomen 70 140 Urine 273 470 50 Urethral (Tovar) 273 470 50 Other: # Bowel Movements 0 0 0 - Physical Exam Head: Positive for: Atraumatic, Normocephalic. Negative for: Tenderness Pupils: Positive for: PERRL Extroacular Muscles: Positive for: EOMI Mouth: Positive for: Moist Mucous Membranes. Negative for: Dry, Drooling Nose (External): Positive for: Other (NGT in place) Nose (Internal): Positive for: Normal Inspection, Moist Neck: Positive for: Normal Range of Motion. Negative for: JVD, Lymphadenopathy Respiratory/Chest: Positive for: Clear to Auscultation. Negative for: Respiratory Distress, Accessory Muscle Use Cardiovascular: Positive for: Regular Rate and Rhythm, Normal S1, S2 Abdomen: Positive for: Tenderness (mild tenderness of palpation. patient continues to move her arms towards hands on palpation). Negative for: Distention, Guarding Upper Extremity: Positive for: Normal Inspection, Normal ROM, Capillary Refill < 2s. Negative for: Edema Lower Extremity: Positive for: Normal Inspection. Negative for: Edema Neurological: Positive for: CN II-XII Intact Skin: Positive for: Warm, Pale Psychiatric: Positive for: Alert - Medications Active Medications: Active Medications Generic Name Dose Route Start Last Admin Trade Name Freq PRN Reason Stop Dose Admin Acetaminophen 650 mg 04/20/17 09:08 04/20/17 10:10 Tylenol 650mg/20.3ml Solution Ud PO 650 mg Q6 PRN Administration Temperature Acetaminophen 650 mg 04/20/17 10:17 Tylenol 650 Mg Supp IN Q4 PRN Fever >100.4 F Albuterol/Ipratropium 3 ml 04/18/17 14:00 04/21/17 07:11 Duoneb 3 Mg/0.5 Mg (3 Ml) Ud INH 3 ml RQ6 AGUSTIN Administration Ascorbic Acid 500 mg 04/08/17 12:30 04/20/17 10:06 Vitamin C 500 Mg Tab PO 500 mg DAILY AGUSTIN Administration Haloperidol Lactate 1 mg 03/29/17 18:47 04/17/17 00:00 Haldol IVP 1 mg BID PRN Administration Agitation Hydromorphone HCl 1 mg 04/17/17 07:16 04/18/17 14:50 Dilaudid IVP 1 mg Q3 PRN Administration Pain, severe (8-10) Midazolam HCl 100 mg/ Sodium 100 mls @ 1.35 mls/hr 04/18/17 14:00 04/21/17 06 :24 Chloride IV 0 mg/kg/hr .Q24H AGUSTIN 0 mls/hr Protocol Titration 0.02 MG/KG/HR Fentanyl Citrate 2,500 mcg/ 250 mls @ 13.56 mls/hr 04/18/17 19:45 04/21/17 03 :42 Sodium Chloride IV 2 mcg/kg/hr .[id number] AGUSTIN 13.56 mls/hr Protocol Administration 2 MCG/KG/HR Multivitamins/Vitamin C 10 ml/ 1,010 mls @ 63 mls/hr 04/20/17 18:00 04/20/17 18:00 Amino Acids/Electrolytes/ IV 04/21/17 10:00 63 mls/hr Dextrose .[id number] AGUSTIN Administration Amino Acids/Electrolytes/Dextrose 1,000 mls @ 63 mls/hr 04/21/17 10:00 Clinimix 5%-25% "E" IV 04/21/17 18:00 .[id number] AGUSTIN Fluconazole 100 mls @ 100 mls/hr 04/21/17 10:00 Diflucan Iv 200 Mg/100 Ml Ns IVPB DAILY AGUSTIN Meropenem 500 mg/ Sodium 100 mls @ 100 mls/hr 04/20/17 22:00 04/21/17 05:35 Chloride IVPB 100 mls/hr Q8 AGUSTIN Administration Dexmedetomidine HCl 200 mcg/ 50 mls @ 3.4 mls/hr 04/21/17 06:00 04/21/17 06: 23 Sodium Chloride IV 0.2 mcg/kg/hr TITR PRN 3.4 mls/hr Agitation Administration Protocol 0.2 MCG/KG/HR Lorazepam 0.5 mg 04/01/17 16:08 04/18/17 03:30 Ativan IVP 0.5 mg Q3H PRN Administration Anxiety Lorazepam 2 mg 04/20/17 18:18 04/20/17 20:00 Ativan IVP 2 mg Q4H PRN Administration Seizure activity Ondansetron HCl 4 mg 03/27/17 23:45 04/11/17 21:39 Zofran Inj IVP 4 mg Q6H PRN Administration Nausea/Vomiting Pantoprazole Sodium 20 mg 04/19/17 18:00 04/20/17 17:49 Protonix Inj IVP 20 mg BID AGUSTIN Administration Saccharomyces Boulardii 250 mg 04/08/17 18:00 04/20/17 17:49 Florastor PO 250 mg BID AGUSTIN Administration Thiamine HCl 100 mg 04/08/17 12:30 04/20/17 10:08 Vitamin B1 Tab PO 100 mg DAILY AGUSTIN Administration - Patient Studies Lab Studies: Microbiology Studies 04/18/17 22:15 Blood Culture - Preliminary Blood-Venous NO GROWTH AFTER 48 HOURS 04/18/17 21:45 Blood Culture - Preliminary Blood-Venous NO GROWTH AFTER 48 HOURS 04/18/17 21:42 Gram Stain - Final Abdomen Wound Culture - Preliminary NO GROWTH AFTER 24 HOURS 04/18/17 22:42 Urine Culture - Final Urine,Catheterized Yeast Species Lab Studies 04/21/17 04/21/17 04/21/17 Range/Units 06:36 06:36 05:50 WBC 13.2 H (4.8-10.8) K/uL RBC 2.50 L (3.80-5.20) Mil/uL Hgb 7.0 L (11.0-16.0) g/dL Hct 21.7 L (34.0-47.0) % MCV 86.8 (81.0-99.0) fL MCH 27.8 (27.0-31.0) pg MCHC 32.0 L (33.0-37.0) g/dL RDW 16.1 H (11.5-14.5) % Plt Count 366 (130-400) K/uL MPV 8.6 (7.2-11.7) fL Neut % (Auto) 68.2 (50.0-75.0) % Lymph % (Auto) 10.1 L (20.0-40.0) % Yancey % (Auto) 13.0 H (0.0-10.0) % Eos % (Auto) 8.3 H (0.0-4.0) % Baso % (Auto) 0.4 (0.0-2.0) % Neut # 9.0 H (1.8-7.0) K/uL Lymph # 1.3 (1.0-4.3) K/uL Yancey # 1.7 H (0.0-0.8) K/uL Eos # 1.1 H (0.0-0.7) K/uL Baso # 0.1 (0.0-0.2) K/uL Neutrophils % (Manual) (50-75) % Lymphocytes % (Manual) (20-40) % Monocytes % (Manual) (0-10) % Eosinophils % (Manual) (0-4) % Platelet Estimate (NORMAL) Polychromasia Hypochromasia (manual) Anisocytosis (manual) Puncture Site pCO2 (35-45) mm/Hg pO2 (80-100) mm/Hg HCO3 (21-28) mmol/L ABG pH (7.35-7.45) ABG Total CO2 (22-28) mmol/L ABG O2 Saturation (95-98) % ABG Base Excess (-2.0-3.0) mmol/L ABG Hemoglobin (11.7-17.4) g/dL ABG Carboxyhemoglobin (0.5-1.5) % POC ABG HHb (Measured) (0.0-5.0) % ABG Methemoglobin (0.0-3.0) % Daniel Test A-a O2 Difference mm/Hg Respiratory Index Hgb O2 Saturation (95.0-98.0) % Vent Mode Mechanical Rate FiO2 % Tidal Volume PEEP Sodium 133 (132-148) mmol/L Potassium 3.7 (3.6-5.2) mmol/L Chloride 100 (98-107) mmol/L Carbon Dioxide 28 (22-30) mmol/L Anion Gap 9 L (10-20) BUN 37 H (7-17) mg/dL Creatinine 3.9 H (0.7-1.2) mg/dL Est GFR ( Amer) 16 Est GFR (Non-Af Amer) 13 POC Glucose (mg/dL) 113 H (65-110) mg/dL Random Glucose 118 H (65-105) mg/dL Calcium 7.1 L (8.6-10.4) mg/dl Phosphorus 4.8 H (2.5-4.5) mg/dL Magnesium 1.9 (1.6-2.3) mg/dL Total Bilirubin 0.7 (0.2-1.3) mg/dL AST 20 (14-36) U/L ALT 17 (9-52) U/L Alkaline Phosphatase 91 (38-126) U/L Total Protein 5.2 L (6.3-8.3) g/dL Albumin 2.4 L (3.5-5.0) g/dL Globulin 2.7 (2.2-3.9) gm/dL Albumin/Globulin Ratio 0.9 L (1.0-2.1) Procalcitonin (0.19-0.49) NG/ML Stool Sodium mEq/L Stool Potassium mEq/L Stool Chloride mEq/L 04/21/17 04/21/17 04/20/17 Range/Units 05:48 05:18 23:51 WBC (4.8-10.8) K/uL RBC (3.80-5.20) Mil/uL Hgb (11.0-16.0) g/dL Hct (34.0-47.0) % MCV (81.0-99.0) fL MCH (27.0-31.0) pg MCHC (33.0-37.0) g/dL RDW (11.5-14.5) % Plt Count (130-400) K/uL MPV (7.2-11.7) fL Neut % (Auto) (50.0-75.0) % Lymph % (Auto) (20.0-40.0) % Yancey % (Auto) (0.0-10.0) % Eos % (Auto) (0.0-4.0) % Baso % (Auto) (0.0-2.0) % Neut # (1.8-7.0) K/uL Lymph # (1.0-4.3) K/uL Yancey # (0.0-0.8) K/uL Eos # (0.0-0.7) K/uL Baso # (0.0-0.2) K/uL Neutrophils % (Manual) (50-75) % Lymphocytes % (Manual) (20-40) % Monocytes % (Manual) (0-10) % Eosinophils % (Manual) (0-4) % Platelet Estimate (NORMAL) Polychromasia Hypochromasia (manual) Anisocytosis (manual) Puncture Site R bra pCO2 43 (35-45) mm/Hg pO2 73 L (80-100) mm/Hg HCO3 28.5 H (21-28) mmol/L ABG pH 7.44 (7.35-7.45) ABG Total CO2 30.5 H (22-28) mmol/L ABG O2 Saturation 97.5 (95-98) % ABG Base Excess 4.6 H (-2.0-3.0) mmol/L ABG Hemoglobin 7.3 L (11.7-17.4) g/dL ABG Carboxyhemoglobin 1.5 (0.5-1.5) % POC ABG HHb (Measured) 2.4 (0.0-5.0) % ABG Methemoglobin 1.2 (0.0-3.0) % Daniel Test Na A-a O2 Difference 123.0 mm/Hg Respiratory Index 1.7 Hgb O2 Saturation 94.9 L (95.0-98.0) % Vent Mode Prvc Mechanical Rate 14 FiO2 35.0 % Tidal Volume 450 PEEP 5 Sodium (132-148) mmol/L Potassium (3.6-5.2) mmol/L Chloride (98-107) mmol/L Carbon Dioxide (22-30) mmol/L Anion Gap (10-20) BUN (7-17) mg/dL Creatinine (0.7-1.2) mg/dL Est GFR ( Amer) Est GFR (Non-Af Amer) POC Glucose (mg/dL) 59 L 133 H (65-110) mg/dL Random Glucose (65-105) mg/dL Calcium (8.6-10.4) mg/dl Phosphorus (2.5-4.5) mg/dL Magnesium (1.6-2.3) mg/dL Total Bilirubin (0.2-1.3) mg/dL AST (14-36) U/L ALT (9-52) U/L Alkaline Phosphatase (38-126) U/L Total Protein (6.3-8.3) g/dL Albumin (3.5-5.0) g/dL Globulin (2.2-3.9) gm/dL Albumin/Globulin Ratio (1.0-2.1) Procalcitonin (0.19-0.49) NG/ML Stool Sodium mEq/L Stool Potassium mEq/L Stool Chloride mEq/L 04/20/17 04/20/17 04/20/17 Range/Units 18:00 17:33 17:33 WBC 14.4 H (4.8-10.8) K/uL RBC 2.76 L (3.80-5.20) Mil/uL Hgb 7.7 L (11.0-16.0) g/dL Hct 23.7 L (34.0-47.0) % MCV 85.9 (81.0-99.0) fL MCH 27.8 (27.0-31.0) pg MCHC 32.4 L (33.0-37.0) g/dL RDW 16.0 H (11.5-14.5) % Plt Count 376 (130-400) K/uL MPV 7.7 (7.2-11.7) fL Neut % (Auto) 68.3 (50.0-75.0) % Lymph % (Auto) 9.9 L (20.0-40.0) % Yancey % (Auto) 14.8 H (0.0-10.0) % Eos % (Auto) 6.7 H (0.0-4.0) % Baso % (Auto) 0.3 (0.0-2.0) % Neut # 9.8 H (1.8-7.0) K/uL Lymph # 1.4 (1.0-4.3) K/uL Yancey # 2.1 H (0.0-0.8) K/uL Eos # 1.0 H (0.0-0.7) K/uL Baso # 0.0 (0.0-0.2) K/uL Neutrophils % (Manual) 79 H (50-75) % Lymphocytes % (Manual) 9 L (20-40) % Monocytes % (Manual) 6 (0-10) % Eosinophils % (Manual) 6 H (0-4) % Platelet Estimate Normal (NORMAL) Polychromasia Hypochromasia (manual) Slight Anisocytosis (manual) Slight Puncture Site pCO2 (35-45) mm/Hg pO2 (80-100) mm/Hg HCO3 (21-28) mmol/L ABG pH (7.35-7.45) ABG Total CO2 (22-28) mmol/L ABG O2 Saturation (95-98) % ABG Base Excess (-2.0-3.0) mmol/L ABG Hemoglobin (11.7-17.4) g/dL ABG Carboxyhemoglobin (0.5-1.5) % POC ABG HHb (Measured) (0.0-5.0) % ABG Methemoglobin (0.0-3.0) % Daniel Test A-a O2 Difference mm/Hg Respiratory Index Hgb O2 Saturation (95.0-98.0) % Vent Mode Mechanical Rate FiO2 % Tidal Volume PEEP Sodium 133 (132-148) mmol/L Potassium 3.7 (3.6-5.2) mmol/L Chloride 99 (98-107) mmol/L Carbon Dioxide 28 (22-30) mmol/L Anion Gap 10 (10-20) BUN 30 H (7-17) mg/dL Creatinine 3.6 H (0.7-1.2) mg/dL Est GFR ( Amer) 18 Est GFR (Non-Af Amer) 14 POC Glucose (mg/dL) 110 (65-110) mg/dL Random Glucose 115 H (65-105) mg/dL Calcium 7.3 L (8.6-10.4) mg/dl Phosphorus (2.5-4.5) mg/dL Magnesium (1.6-2.3) mg/dL Total Bilirubin 0.8 (0.2-1.3) mg/dL AST 28 (14-36) U/L ALT 16 (9-52) U/L Alkaline Phosphatase 82 (38-126) U/L Total Protein 5.4 L (6.3-8.3) g/dL Albumin 2.5 L (3.5-5.0) g/dL Globulin 2.9 (2.2-3.9) gm/dL Albumin/Globulin Ratio 0.9 L (1.0-2.1) Procalcitonin (0.19-0.49) NG/ML Stool Sodium mEq/L Stool Potassium mEq/L Stool Chloride mEq/L 04/20/17 04/20/17 04/20/17 Range/Units 11:35 10:52 06:41 WBC (4.8-10.8) K/uL RBC (3.80-5.20) Mil/uL Hgb (11.0-16.0) g/dL Hct (34.0-47.0) % MCV (81.0-99.0) fL MCH (27.0-31.0) pg MCHC (33.0-37.0) g/dL RDW (11.5-14.5) % Plt Count (130-400) K/uL MPV (7.2-11.7) fL Neut % (Auto) (50.0-75.0) % Lymph % (Auto) (20.0-40.0) % Yancey % (Auto) (0.0-10.0) % Eos % (Auto) (0.0-4.0) % Baso % (Auto) (0.0-2.0) % Neut # (1.8-7.0) K/uL Lymph # (1.0-4.3) K/uL Yancey # (0.0-0.8) K/uL Eos # (0.0-0.7) K/uL Baso # (0.0-0.2) K/uL Neutrophils % (Manual) 77 H (50-75) % Lymphocytes % (Manual) 5 L (20-40) % Monocytes % (Manual) 14 H (0-10) % Eosinophils % (Manual) 4 (0-4) % Platelet Estimate Normal (NORMAL) Polychromasia Slight Hypochromasia (manual) Slight Anisocytosis (manual) Slight Puncture Site pCO2 (35-45) mm/Hg pO2 (80-100) mm/Hg HCO3 (21-28) mmol/L ABG pH (7.35-7.45) ABG Total CO2 (22-28) mmol/L ABG O2 Saturation (95-98) % ABG Base Excess (-2.0-3.0) mmol/L ABG Hemoglobin (11.7-17.4) g/dL ABG Carboxyhemoglobin (0.5-1.5) % POC ABG HHb (Measured) (0.0-5.0) % ABG Methemoglobin (0.0-3.0) % Daniel Test A-a O2 Difference mm/Hg Respiratory Index Hgb O2 Saturation (95.0-98.0) % Vent Mode Mechanical Rate FiO2 % Tidal Volume PEEP Sodium (132-148) mmol/L Potassium (3.6-5.2) mmol/L Chloride (98-107) mmol/L Carbon Dioxide (22-30) mmol/L Anion Gap (10-20) BUN (7-17) mg/dL Creatinine (0.7-1.2) mg/dL Est GFR ( Amer) Est GFR (Non-Af Amer) POC Glucose (mg/dL) 135 H (65-110) mg/dL Random Glucose (65-105) mg/dL Calcium (8.6-10.4) mg/dl Phosphorus (2.5-4.5) mg/dL Magnesium (1.6-2.3) mg/dL Total Bilirubin (0.2-1.3) mg/dL AST (14-36) U/L ALT (9-52) U/L Alkaline Phosphatase (38-126) U/L Total Protein (6.3-8.3) g/dL Albumin (3.5-5.0) g/dL Globulin (2.2-3.9) gm/dL Albumin/Globulin Ratio (1.0-2.1) Procalcitonin 2.07 H (0.19-0.49) NG/ML Stool Sodium mEq/L Stool Potassium mEq/L Stool Chloride mEq/L 04/12/17 Range/Units 07:32 WBC (4.8-10.8) K/uL RBC (3.80-5.20) Mil/uL Hgb (11.0-16.0) g/dL Hct (34.0-47.0) % MCV (81.0-99.0) fL MCH (27.0-31.0) pg MCHC (33.0-37.0) g/dL RDW (11.5-14.5) % Plt Count (130-400) K/uL MPV (7.2-11.7) fL Neut % (Auto) (50.0-75.0) % Lymph % (Auto) (20.0-40.0) % Yancey % (Auto) (0.0-10.0) % Eos % (Auto) (0.0-4.0) % Baso % (Auto) (0.0-2.0) % Neut # (1.8-7.0) K/uL Lymph # (1.0-4.3) K/uL Yancey # (0.0-0.8) K/uL Eos # (0.0-0.7) K/uL Baso # (0.0-0.2) K/uL Neutrophils % (Manual) (50-75) % Lymphocytes % (Manual) (20-40) % Monocytes % (Manual) (0-10) % Eosinophils % (Manual) (0-4) % Platelet Estimate (NORMAL) Polychromasia Hypochromasia (manual) Anisocytosis (manual) Puncture Site pCO2 (35-45) mm/Hg pO2 (80-100) mm/Hg HCO3 (21-28) mmol/L ABG pH (7.35-7.45) ABG Total CO2 (22-28) mmol/L ABG O2 Saturation (95-98) % ABG Base Excess (-2.0-3.0) mmol/L ABG Hemoglobin (11.7-17.4) g/dL ABG Carboxyhemoglobin (0.5-1.5) % POC ABG HHb (Measured) (0.0-5.0) % ABG Methemoglobin (0.0-3.0) % Daniel Test A-a O2 Difference mm/Hg Respiratory Index Hgb O2 Saturation (95.0-98.0) % Vent Mode Mechanical Rate FiO2 % Tidal Volume PEEP Sodium (132-148) mmol/L Potassium (3.6-5.2) mmol/L Chloride (98-107) mmol/L Carbon Dioxide (22-30) mmol/L Anion Gap (10-20) BUN (7-17) mg/dL Creatinine (0.7-1.2) mg/dL Est GFR ( Amer) Est GFR (Non-Af Amer) POC Glucose (mg/dL) (65-110) mg/dL Random Glucose (65-105) mg/dL Calcium (8.6-10.4) mg/dl Phosphorus (2.5-4.5) mg/dL Magnesium (1.6-2.3) mg/dL Total Bilirubin (0.2-1.3) mg/dL AST (14-36) U/L ALT (9-52) U/L Alkaline Phosphatase (38-126) U/L Total Protein (6.3-8.3) g/dL Albumin (3.5-5.0) g/dL Globulin (2.2-3.9) gm/dL Albumin/Globulin Ratio (1.0-2.1) Procalcitonin (0.19-0.49) NG/ML Stool Sodium 6.10 mEq/L Stool Potassium 61 mEq/L Stool Chloride 6 mEq/L Laboratory Results - last 24 hr 04/12/17 04/20/17 04/20/17 07:32 06:41 10:52 WBC RBC Hgb Hct MCV MCH MCHC RDW Plt Count MPV Neut % (Auto) Lymph % (Auto) Yancey % (Auto) Eos % (Auto) Baso % (Auto) Neut # Lymph # Yancey # Eos # Baso # Neutrophils % (Manual) 77 H Lymphocytes % (Manual) 5 L Monocytes % (Manual) 14 H Eosinophils % (Manual) 4 Platelet Estimate Normal Polychromasia Slight Hypochromasia (manual) Slight Anisocytosis (manual) Slight Puncture Site pCO2 pO2 HCO3 ABG pH ABG Total CO2 ABG O2 Saturation ABG Base Excess ABG Hemoglobin ABG Carboxyhemoglobin POC ABG HHb (Measured) ABG Methemoglobin Daniel Test A-a O2 Difference Respiratory Index Hgb O2 Saturation Vent Mode Mechanical Rate FiO2 Tidal Volume PEEP Sodium Potassium Chloride Carbon Dioxide Anion Gap BUN Creatinine Est GFR ( Amer) Est GFR (Non-Af Amer) POC Glucose (mg/dL) Random Glucose Calcium Phosphorus Magnesium Total Bilirubin AST ALT Alkaline Phosphatase Total Protein Albumin Globulin Albumin/Globulin Ratio Procalcitonin 2.07 H Stool Sodium 6.10 Stool Potassium 61 Stool Chloride 6 04/20/17 04/20/17 04/20/17 11:35 17:33 17:33 WBC 14.4 H RBC 2.76 L Hgb 7.7 L Hct 23.7 L MCV 85.9 MCH 27.8 MCHC 32.4 L RDW 16.0 H Plt Count 376 MPV 7.7 Neut % (Auto) 68.3 Lymph % (Auto) 9.9 L Yancey % (Auto) 14.8 H Eos % (Auto) 6.7 H Baso % (Auto) 0.3 Neut # 9.8 H Lymph # 1.4 Yancey # 2.1 H Eos # 1.0 H Baso # 0.0 Neutrophils % (Manual) 79 H Lymphocytes % (Manual) 9 L Monocytes % (Manual) 6 Eosinophils % (Manual) 6 H Platelet Estimate Normal Polychromasia Hypochromasia (manual) Slight Anisocytosis (manual) Slight Puncture Site pCO2 pO2 HCO3 ABG pH ABG Total CO2 ABG O2 Saturation ABG Base Excess ABG Hemoglobin ABG Carboxyhemoglobin POC ABG HHb (Measured) ABG Methemoglobin Daniel Test A-a O2 Difference Respiratory Index Hgb O2 Saturation Vent Mode Mechanical Rate FiO2 Tidal Volume PEEP Sodium 133 Potassium 3.7 Chloride 99 Carbon Dioxide 28 Anion Gap 10 BUN 30 H Creatinine 3.6 H Est GFR ( Amer) 18 Est GFR (Non-Af Amer) 14 POC Glucose (mg/dL) 135 H Random Glucose 115 H Calcium 7.3 L Phosphorus Magnesium Total Bilirubin 0.8 AST 28 ALT 16 Alkaline Phosphatase 82 Total Protein 5.4 L Albumin 2.5 L Globulin 2.9 Albumin/Globulin Ratio 0.9 L Procalcitonin Stool Sodium Stool Potassium Stool Chloride 04/20/17 04/20/17 04/21/17 18:00 23:51 05:18 WBC RBC Hgb Hct MCV MCH MCHC RDW Plt Count MPV Neut % (Auto) Lymph % (Auto) Yancey % (Auto) Eos % (Auto) Baso % (Auto) Neut # Lymph # Yancey # Eos # Baso # Neutrophils % (Manual) Lymphocytes % (Manual) Monocytes % (Manual) Eosinophils % (Manual) Platelet Estimate Polychromasia Hypochromasia (manual) Anisocytosis (manual) Puncture Site R bra pCO2 43 pO2 73 L HCO3 28.5 H ABG pH 7.44 ABG Total CO2 30.5 H ABG O2 Saturation 97.5 ABG Base Excess 4.6 H ABG Hemoglobin 7.3 L ABG Carboxyhemoglobin 1.5 POC ABG HHb (Measured) 2.4 ABG Methemoglobin 1.2 Daniel Test Na A-a O2 Difference 123.0 Respiratory Index 1.7 Hgb O2 Saturation 94.9 L Vent Mode Prvc Mechanical Rate 14 FiO2 35.0 Tidal Volume 450 PEEP 5 Sodium Potassium Chloride Carbon Dioxide Anion Gap BUN Creatinine Est GFR ( Amer) Est GFR (Non-Af Amer) POC Glucose (mg/dL) 110 133 H Random Glucose Calcium Phosphorus Magnesium Total Bilirubin AST ALT Alkaline Phosphatase Total Protein Albumin Globulin Albumin/Globulin Ratio Procalcitonin Stool Sodium Stool Potassium Stool Chloride 04/21/17 04/21/17 04/21/17 05:48 05:50 06:36 WBC 13.2 H RBC 2.50 L Hgb 7.0 L Hct 21.7 L MCV 86.8 MCH 27.8 MCHC 32.0 L RDW 16.1 H Plt Count 366 MPV 8.6 Neut % (Auto) 68.2 Lymph % (Auto) 10.1 L Yancey % (Auto) 13.0 H Eos % (Auto) 8.3 H Baso % (Auto) 0.4 Neut # 9.0 H Lymph # 1.3 Yancey # 1.7 H Eos # 1.1 H Baso # 0.1 Neutrophils % (Manual) Lymphocytes % (Manual) Monocytes % (Manual) Eosinophils % (Manual) Platelet Estimate Polychromasia Hypochromasia (manual) Anisocytosis (manual) Puncture Site pCO2 pO2 HCO3 ABG pH ABG Total CO2 ABG O2 Saturation ABG Base Excess ABG Hemoglobin ABG Carboxyhemoglobin POC ABG HHb (Measured) ABG Methemoglobin Daniel Test A-a O2 Difference Respiratory Index Hgb O2 Saturation Vent Mode Mechanical Rate FiO2 Tidal Volume PEEP Sodium Potassium Chloride Carbon Dioxide Anion Gap BUN Creatinine Est GFR ( Amer) Est GFR (Non-Af Amer) POC Glucose (mg/dL) 59 L 113 H Random Glucose Calcium Phosphorus Magnesium Total Bilirubin AST ALT Alkaline Phosphatase Total Protein Albumin Globulin Albumin/Globulin Ratio Procalcitonin Stool Sodium Stool Potassium Stool Chloride 04/21/17 06:36 WBC RBC Hgb Hct MCV MCH MCHC RDW Plt Count MPV Neut % (Auto) Lymph % (Auto) Yancey % (Auto) Eos % (Auto) Baso % (Auto) Neut # Lymph # Yancey # Eos # Baso # Neutrophils % (Manual) Lymphocytes % (Manual) Monocytes % (Manual) Eosinophils % (Manual) Platelet Estimate Polychromasia Hypochromasia (manual) Anisocytosis (manual) Puncture Site pCO2 pO2 HCO3 ABG pH ABG Total CO2 ABG O2 Saturation ABG Base Excess ABG Hemoglobin ABG Carboxyhemoglobin POC ABG HHb (Measured) ABG Methemoglobin Daniel Test A-a O2 Difference Respiratory Index Hgb O2 Saturation Vent Mode Mechanical Rate FiO2 Tidal Volume PEEP Sodium 133 Potassium 3.7 Chloride 100 Carbon Dioxide 28 Anion Gap 9 L BUN 37 H Creatinine 3.9 H Est GFR ( Amer) 16 Est GFR (Non-Af Amer) 13 POC Glucose (mg/dL) Random Glucose 118 H Calcium 7.1 L Phosphorus 4.8 H Magnesium 1.9 Total Bilirubin 0.7 AST 20 ALT 17 Alkaline Phosphatase 91 Total Protein 5.2 L Albumin 2.4 L Globulin 2.7 Albumin/Globulin Ratio 0.9 L Procalcitonin Stool Sodium Stool Potassium Stool Chloride Fingerstick Blood Sugar Results: 113 Critical Care Progress Note - Nutrition Nutrition: Nutrition Category Date Time Status NPO Diet [DIET] Diets 04/08/17 Dinner Active Assessment/Plan - Assessment and Plan (Free Text) Assessment: 36F admitted with diarrhea,tachycardia,elevated WBC count ,lipase and lactic acid, 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 s/p obby en Y bypass, gastrojejunostomy with Tricia ileostomy placement. POD #2 (04/18/17) Neuro: hx of Schizophrenia, patient has mental retardation and can speak some words based on observation seizure-like episodes x 2 04/20 04/20 Dr. Bedoya consulted for seizures 04/07 Dr. Bedoya consulted Psych Consult: Dr. Mccloud Midazolam 0.02mg/kg/hr Haloperidol 1mg IVP BID PRN Ativan 0.5mg IVP Q3H PRN Pain: Fentanyl 2mcg/kg/hr Nausea: Zofran 4mg Q6H PRN Thiamine 100mg PO QD Ascorbic Acid 500mg PO QD Psych: Psych Consult Dr. Mccloud: f/u 03/30 EKG to evaluate QTc Quetiapine (Seroquel) 200mg POBID, held d/t NGT on IWS, held awaiting Dr. Mccloud Recommendations Escitalopram (Lexapro) 10mg PO QD, held d/t NGT on IWS, held awaiting Dr. Mccloud Recommendations Cardio: Tachycardia 03/27 EKG Sinus tachycardia 138 bpm 03/30 EKG QTc 434, Sinus tachycardia at 153 bpm Diltiazem 125mg Q24hr @ 5mg/hr 04/08 Pulm: Aspiration pneumonia s/p EGD with intubation then extubation 03/27 AB.22, lactate 9.7 04/08 AB.50, CO2 24, O2 148, HCO3 22.9, lactate 1.0 03/27 CXR in infiltrates, no active pulmonary disease 03/30 CXR: poor inspiratory effort, areas suggestive of aspiration pneumonia 04/02: CT abdomen/pelvis/chest: pleural effusions, bilateral perihilar consolidations possibly due to multifocal pneumonia vs. atelectasis 04/04: CXR: Left lower lobe atelectasis/pneumonia and small left pleural effusion. Stable position of nasogastric tube and Dialysis catheter with one port Duoneb 04/17 CXR: mild vascular congestion 04/18 CXR: vascular congestion, poor inspiratory effort 04/19 CXR: vascular congestion, poor inspiratory effort Albuterol/Ipratropium 3cc INH RQ6H Endo: 03/28 Hemoglobin A1c 5.3 GI: Currently on PPN 03/28 Lipase 8456 03/29 Lipase 322 03/30 Lipase 64 03/30 GOBT positive 03/31 Pathology for Antrum biopsy from 03/29 EGD current biopsy negative for H pylori 04/01 f/u Dr. Harmon for repeat EGD., NGT 800 per nutrition consult: during dialysis Nepro goal rate 45cc/hr for 1080cc, 1944kcal, 87gm protein, and 785 cc free H2O Reglan 10 mg IVP q4h PRN 03/27 21:42 CT abdomen/pelvis with IV contrast: gastric distention 32cm and distention of the first and third and second portion of duodenum. Transition and complete decompression of third portion of duodenum. pancreas unremarkable, spleen unremarkable, partially contracted gallbladder. duodenal obstruction v delayed emptying v gastroparesis. Fluid distention of distal esophagus 3.3cm representing gastric emptying v gastroesophageal reflux. 03/27 CT abdomen/pelvis with IV contrast: significantly dilated stomach with retained food and fluid. significantly diminished prior to earlier CT 03/28. No free intraperitoneal gas identified. contrast noted in Gallbladder. 03/28 CT Chest/Abdomen/Pelvis: Left greater than right pleural effusion, bilateral perihilar consolidation. right more than left upper lobes and left more than right lower lobes. lingular consolidation representing multifocal pneumonia v. atelectasis versus mucous lugging and/or aspiration. interval worsening compared to prior exam 04/02 CT chest/abdomen/pelvis shows gastric distention 27cm, possible gastric pneumatosis, NGT at fundus with contrast fluid and gas level peripancreatic infiltration. gastric distension measuring 27 cm with possible gastric pneumatosis. intraperitoneal pelvic fluid with prominent surrounding peritoneal lining. Loculated ascites with peritoneal enhancement above spleen in retrogastric region. Lipase 320. 04/08 CT Chest/Abdomen/Pelvis: resolving acute pancreatitis, no residual peripancreatic fluid. 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 Distention of stomach due to gastric ileus. Ascites and loculated fluid posterior to the gastric fundus and cephalad to the spleen. Focal enteritis of proximal jejunum with mural thickening. Small left pleural effusion with left lower lobe compressive atelectasis. 04/14/17 CT Angio Abdomen/Pelvis:gastric distentions 27cm. gastric pneumatosis on image 66 through 73 series 6. NGT in fundus of stomach with contrast fluid and gas level. peripancreatic infiltration. left more than right large pleural effusions. bilateral perihilar consolidation. right more than left upper lobes and left more than right lower lobes lingular consolidation. Significant interval worsening when compared to prior examination 03/28/17. moderate intraperitoneal pelvic fluid with prominent surrounding peritoneal lining. Loculated peritoneal abscess secondary to contained gastric perforation 03/[address] connected to suction. 03/28 NGT OP since insertion: 2600cc 03/29 2350 03/30 NGT 1160 03/31 NGT 630 04/01 NGT 800 04/02 NGT 100 04/04 550, NGT removed by patient, Flexiseal removed by patient f/u Strict I/Os 04/10 NGT 3300 04/11 NGT 1200 04/12 NGT 700, with about 100cc of bright red sanguinous blood, with bilious component. 04/12 NGT off suction, clamped, patient continues to have red output to gravity. General Surgery Consult: Dr. Woodruff 03/[address] Harmon to have EGD today. 03/[address] Harmon, place patient on Reglan to help with motility. 03/30 Abdominal xray/obstructive series: minimal distention of stomach compared to previous imaging studies 03/31 Pathology for Antrum biopsy from 03/29 EGD current biopsy negative for H pylori 04/01 f/u Dr. Harmon for repeat EGD. 04/13 Dr. Lau repeat EGD: diffuse ulceration, large fibrous clot, repeat EGD scheduled 04/14 for re-evaluation, CT Angio ordered to evaluate for ischemia 04/13 NGT 280 cc 04/14 NGT 140cc over 24 hours 04/14 repeat EGD cancelled. continued supportive care by GI today 04/14 NGT 200cc 04/15 repeat EGD and PEJ tube insertion, could not be done due to inability to find a stable place for PEJ 04/18 Boby en Y bypass, gastrojejunostomy, Tricia ileostomy, drain insertion in LLQ by Dr. Mendez, no evidence of SMA compression of duodenum 04/19 LLQ drain 105 cc since insertion 04/19 RLQ ileostomy bag 320 cc since insertion Zofran 4mg IVP q6h PRN Reglan 10 mg IVP q4h PRN Renal: 03/27 UA: proteinuria urine output since insertion 360 f/u Strict I/Os 03/31 Potassium Phosphorus 15mmole @63cc/hr Patient is on dialysis and making urine. will monitor hourly output 04/20 BUN/Cr 30/3.6 04/21 BUN/Cr 37/3.9 : 03/27 UA: hazy, specific gravity >1.060, 3+ urine protein, Urine bacteria, Urine Yeast Ceftriaxone 1gm IVPB QD, discontinued 03/30 Urine Cx negative 04/08 UA: Ariadne, UA pH 5.0, trace ketones, 1+ leukocyte esterase, specific gravity 1.030 04/08 urine random total protein 41.0 Urine random chloride 17 Urine random sodium 7 Heme: GI bleed H/H: 03/27 14.6/44.7 03/28 12.9/38.5 03/28 FOBT positive 03/29 11.2/33.0 03/30 GOBT positive 03/30 9.5/27.7 03/31 9.4/27.5 04/01 8.9/25.8 04/02 9.1/26.7 04/04 9.9/28.8 04/05 9.4/28.4 04/09/1704/10 9.6/29.9 04/11 7.8/22.6 04/12 7.0/20.4 04/13 4.1/11.1 04/14 6.8/19.9 04/15 10.8/30.9 1 10.5/30.7 04/17 9.1/26.4 04/18 06:44 9.0/26.7 04/18 16:17 10.0, post Boby en y bypass, gastrojejunostomy, Tricia Ileostomy 04/19 9.0/26.7 04/20 8.7/25.8 04/21 7.0/21.7 MSK: Patient can walk per sister, but is dizzy so hasn't walked PT/OT eval ID: Sepsis Code sepsis 03/28 02:20, 03/28 lactate 9.7, 03/28 lactate 01:05 9.2, 03/28 lactate 06:15 1.3 Lactate is downtrending, normal Leukocytosis, downtrending WBC 04/21 13.2 04/20 15.7 04/20 14.4 04/21 13.2 04/20 procalcitonin 2.07 Code sepsis 03/28 02:20 03/30 blood Culture x 2, negative 03/30 MRSA screen negative 03/30 Urine Cx negative 04/02 Blood culture x2 negative Code sepsis called again today 04/08. Patient was febrile (102 rectally and tachycardic ~140s) BP was 100/70. Tovar inserted to monitor urine output (nurse to clean TID with betadine) WBC 36.1 elevating from 20s. 4 bands, platelets 707 diflucan ordered 04/20 Prophylaxis: GI: Protonix Q12H Zofran 4mg IVP Q6H PRN Nausea Tylenol 325mg IN Q4H PRN Fluids: LR @100cc/hr Diet: NPO 04/04 NGT removed by patient, Flexiseal removed by patient, Left PICC removed by patient. 04/05 Patient downgraded to Regular Bed 04/11 Patient has a femoral dialysis catheter 04/12 GI consulted for GI bleed, repeat EGD 04/13 patient to have dialysis today with 2 u PRBC transfusion. CTA of abdomen and pelvis today d/t possible ischemic changes due to diffuse ulcerations seen on EGD 04/14 Patient had 3 uPRBC yesterday (1 u after dialysis) Patient's hgb is 6.8 today. Will transfuse 1 u PRBC during extra dialysis session today. repeat EGD today 04/15 04/16 04/17 Patient underwent dialysis 04/18 Boby en Y ex lap and Tricia ileostomy placement. 04/19 Tube feeds 04/20 elevated temperature, yeast in urine, monitor, seizures x 2 episode 04/21 Dr. Bedoya on board, consulted for seizures. EEG ordered. discussed with Dr. Najma Smith DO PGY1 - Date & Time Date: 04/21/17 Time: 10:50 <Najma Granger M - Last Filed: 04/22/17 12:34> CCU Objective - Vital Signs / Intake & Output Vital Signs (Last 4 hours): Vital Signs Pulse Resp BP Pulse Ox 04/22/17 10:23 118 H 14 94/55 L 99 04/22/17 09:53 97 H 14 84/48 L 100 04/22/17 08:53 96 H 14 96/57 L 100 Intake and Output (Last 8hrs): Intake & Output 04/21/17 04/22/17 04/22/17 22:59 06:59 14:59 Intake Total 950.8 1158.1 739.1 Output Total 648 730 546 Balance 302.8 428.1 193.1 Weight 151 lb 14.376 oz Intake: IV 300 348.9 20 Intake, IV Amount 380.8 729.2 709.1 Left Distal Port Wrist 44.8 Left Wrist 281.2 Right Antecubital 66.6 24.1 Right Femoral 310.8 185 Right Medial Port Femoral 350 200 Rt Femoral 54.8 1.8 300 Tube Feeding 240 60 Other 30 20 10 Output: Gastric Amount 200 300 Right Nares 200 300 Drainage 68 135 180 Left Lower Abdomen 60 135 180 Right Lower Abdomen 8 Urine 380 295 366 Urethral (Tovar) 380 295 366 - Medications Active Medications: Active Medications Generic Name Dose Route Start Last Admin Trade Name Freq PRN Reason Stop Dose Admin Acetaminophen 650 mg 04/20/17 09:08 04/21/17 21:41 Tylenol 650mg/20.3ml Solution Ud PO 650 mg Q6 PRN Administration Temperature Acetaminophen 650 mg 04/20/17 10:17 Tylenol 650 Mg Supp IN Q4 PRN Fever >100.4 F Albuterol/Ipratropium 3 ml 04/18/17 14:00 04/22/17 07:29 Duoneb 3 Mg/0.5 Mg (3 Ml) Ud INH 3 ml RQ6 AGUSTIN Administration Ascorbic Acid 500 mg 04/08/17 12:30 04/22/17 09:55 Vitamin C 500 Mg Tab PO Not Given DAILY AGUSTIN Haloperidol Lactate 1 mg 03/29/17 18:47 04/17/17 00:00 Haldol IVP 1 mg BID PRN Administration Agitation Hydromorphone HCl 1 mg 04/17/17 07:16 04/18/17 14:50 Dilaudid IVP 1 mg Q3 PRN Administration Pain, severe (8-10) Fluconazole 100 mls @ 100 mls/hr 04/21/17 10:00 04/22/17 10:05 Diflucan Iv 200 Mg/100 Ml Ns IVPB 100 mls/hr DAILY AGUSTIN Administration Vasopressin 40 units/ Sodium 40 mls @ 0.6 mls/hr 04/21/17 09:30 04/22/17 00: 39 Chloride IV 0 units/min .Q24H PRN 0 mls/hr TITRATE PER PROTOCOL Titration Protocol 0.01 UNITS/MIN Dexmedetomidine HCl 400 mcg/ 100 mls @ 3.4 mls/hr 04/21/17 16:30 04/22/17 09: 42 Sodium Chloride IV 0.2 mcg/kg/hr TITR PRN 3.4 mls/hr Agitation Titration Protocol 0.2 MCG/KG/HR Fentanyl Citrate 2,500 mcg/ 250 mls @ 13.56 mls/hr 04/21/17 17:00 04/22/17 06 :17 Sodium Chloride IV 5 mcg/kg/hr .[id number] PRN 33.9 mls/hr TITRATE PER MD ORDER Administration Protocol 2 MCG/KG/HR Cefepime HCl 1 gm in 50 mls @ 100 mls/hr 04/21/17 19:30 04/21/17 20:58 Maxipime Iv 1 Gm Premix IVPB 100 mls/hr Q24H AGUSTIN Administration Vancomycin HCl 500 mg/ Sodium 100 mls @ 100 mls/hr 04/22/17 09:00 04/22/17 09 :54 Chloride IVPB 100 mls/hr MWF AGUSTIN Administration Dextrose/Sodium Chloride 1,000 mls @ 50 mls/hr 04/22/17 00:15 04/22/17 00:17 Dextrose 5%/0.45% Ns 1000 Ml IV 50 mls/hr .Q20H AGUSTIN Administration Lorazepam 0.5 mg 04/01/17 16:08 04/18/17 03:30 Ativan IVP 0.5 mg Q3H PRN Administration Anxiety Lorazepam 2 mg 04/20/17 18:18 04/21/17 10:35 Ativan IVP 2 mg Q4H PRN Administration Seizure activity Ondansetron HCl 4 mg 03/27/17 23:45 04/11/17 21:39 Zofran Inj IVP 4 mg Q6H PRN Administration Nausea/Vomiting Pantoprazole Sodium 20 mg 04/19/17 18:00 04/22/17 09:53 Protonix Inj IVP 20 mg BID AGUSTIN Administration Saccharomyces Boulardii 250 mg 04/08/17 18:00 04/22/17 09:55 Florastor PO Not Given BID AGUSTIN Thiamine HCl 100 mg 04/08/17 12:30 04/22/17 09:55 Vitamin B1 Tab PO Not Given DAILY AGUSTIN - Patient Studies Lab Studies: Microbiology Studies 04/18/17 21:42 Gram Stain - Final Abdomen Wound Culture - Preliminary No growth. 04/18/17 22:15 Blood Culture - Preliminary Blood-Venous NO GROWTH AFTER 3 DAYS 04/18/17 21:45 Blood Culture - Preliminary Blood-Venous NO GROWTH AFTER 3 DAYS Lab Studies 04/22/17 04/22/17 04/22/17 Range/Units 11:21 06:11 06:11 WBC (4.8-10.8) K/uL RBC (3.80-5.20) Mil/uL Hgb (11.0-16.0) g/dL Hct (34.0-47.0) % MCV (81.0-99.0) fL MCH (27.0-31.0) pg MCHC (33.0-37.0) g/dL RDW (11.5-14.5) % Plt Count (130-400) K/uL MPV (7.2-11.7) fL Neut % (Auto) (50.0-75.0) % Lymph % (Auto) (20.0-40.0) % Yancey % (Auto) (0.0-10.0) % Eos % (Auto) (0.0-4.0) % Baso % (Auto) (0.0-2.0) % Neut # (1.8-7.0) K/uL Lymph # (1.0-4.3) K/uL Yancey # (0.0-0.8) K/uL Eos # (0.0-0.7) K/uL Baso # (0.0-0.2) K/uL PT 13.5 H (9.7-12.2) SECONDS INR 1.2 APTT 30 (21-34) SECONDS Puncture Site pCO2 (35-45) mm/Hg pO2 (80-100) mm/Hg HCO3 (21-28) mmol/L ABG pH (7.35-7.45) ABG Total CO2 (22-28) mmol/L ABG O2 Saturation (95-98) % ABG Base Excess (-2.0-3.0) mmol/L ABG Hemoglobin (11.7-17.4) g/dL ABG Carboxyhemoglobin (0.5-1.5) % POC ABG HHb (Measured) (0.0-5.0) % ABG Methemoglobin (0.0-3.0) % Daniel Test A-a O2 Difference mm/Hg Respiratory Index Hgb O2 Saturation (95.0-98.0) % Vent Mode Mechanical Rate FiO2 % Tidal Volume PEEP Sodium 131 L (132-148) mmol/L Potassium 3.3 L (3.6-5.2) mmol/L Chloride 97 L (98-107) mmol/L Carbon Dioxide 27 (22-30) mmol/L Anion Gap 11 (10-20) BUN 22 H (7-17) mg/dL Creatinine 2.8 H (0.7-1.2) mg/dL Est GFR ( Amer) 23 Est GFR (Non-Af Amer) 19 POC Glucose (mg/dL) 103 (65-110) mg/dL Random Glucose 86 (65-105) mg/dL Calcium 7.4 L (8.6-10.4) mg/dl Phosphorus 2.9 (2.5-4.5) mg/dL Magnesium 1.7 (1.6-2.3) mg/dL Total Bilirubin 1.0 (0.2-1.3) mg/dL AST 23 (14-36) U/L ALT 17 (9-52) U/L Alkaline Phosphatase 138 H D (38-126) U/L Total Protein 5.4 L (6.3-8.3) g/dL Albumin 2.6 L (3.5-5.0) g/dL Globulin 2.8 (2.2-3.9) gm/dL Albumin/Globulin Ratio 0.9 L (1.0-2.1) 04/22/17 04/22/17 04/22/17 Range/Units 06:11 05:26 05:06 WBC 17.5 H (4.8-10.8) K/uL RBC 3.09 L (3.80-5.20) Mil/uL Hgb 8.7 L (11.0-16.0) g/dL Hct 26.3 L (34.0-47.0) % MCV 85.0 (81.0-99.0) fL MCH 28.2 (27.0-31.0) pg MCHC 33.1 (33.0-37.0) g/dL RDW 15.4 H (11.5-14.5) % Plt Count 413 H (130-400) K/uL MPV 8.5 (7.2-11.7) fL Neut % (Auto) 72.8 (50.0-75.0) % Lymph % (Auto) 10.4 L (20.0-40.0) % Yancey % (Auto) 10.6 H (0.0-10.0) % Eos % (Auto) 5.9 H (0.0-4.0) % Baso % (Auto) 0.3 (0.0-2.0) % Neut # 12.8 H (1.8-7.0) K/uL Lymph # 1.8 (1.0-4.3) K/uL Yancey # 1.9 H (0.0-0.8) K/uL Eos # 1.0 H (0.0-0.7) K/uL Baso # 0.0 (0.0-0.2) K/uL PT (9.7-12.2) SECONDS INR APTT (21-34) SECONDS Puncture Site Rr pCO2 49 H (35-45) mm/Hg pO2 103 H (80-100) mm/Hg HCO3 26.2 (21-28) mmol/L ABG pH 7.36 (7.35-7.45) ABG Total CO2 29.2 H (22-28) mmol/L ABG O2 Saturation 98.6 H (95-98) % ABG Base Excess 1.7 (-2.0-3.0) mmol/L ABG Hemoglobin 10.5 L (11.7-17.4) g/dL ABG Carboxyhemoglobin 1.5 (0.5-1.5) % POC ABG HHb (Measured) 1.4 (0.0-5.0) % ABG Methemoglobin 1.5 (0.0-3.0) % Daniel Test Pos A-a O2 Difference 85.0 mm/Hg Respiratory Index 0.8 Hgb O2 Saturation 95.6 (95.0-98.0) % Vent Mode Prvc Mechanical Rate 14 FiO2 35.0 % Tidal Volume 450 PEEP 5 Sodium (132-148) mmol/L Potassium (3.6-5.2) mmol/L Chloride (98-107) mmol/L Carbon Dioxide (22-30) mmol/L Anion Gap (10-20) BUN (7-17) mg/dL Creatinine (0.7-1.2) mg/dL Est GFR ( Amer) Est GFR (Non-Af Amer) POC Glucose (mg/dL) 92 (65-110) mg/dL Random Glucose (65-105) mg/dL Calcium (8.6-10.4) mg/dl Phosphorus (2.5-4.5) mg/dL Magnesium (1.6-2.3) mg/dL Total Bilirubin (0.2-1.3) mg/dL AST (14-36) U/L ALT (9-52) U/L Alkaline Phosphatase (38-126) U/L Total Protein (6.3-8.3) g/dL Albumin (3.5-5.0) g/dL Globulin (2.2-3.9) gm/dL Albumin/Globulin Ratio (1.0-2.1) 04/21/17 04/21/17 Range/Units 23:50 17:44 WBC (4.8-10.8) K/uL RBC (3.80-5.20) Mil/uL Hgb (11.0-16.0) g/dL Hct (34.0-47.0) % MCV (81.0-99.0) fL MCH (27.0-31.0) pg MCHC (33.0-37.0) g/dL RDW (11.5-14.5) % Plt Count (130-400) K/uL MPV (7.2-11.7) fL Neut % (Auto) (50.0-75.0) % Lymph % (Auto) (20.0-40.0) % Yancey % (Auto) (0.0-10.0) % Eos % (Auto) (0.0-4.0) % Baso % (Auto) (0.0-2.0) % Neut # (1.8-7.0) K/uL Lymph # (1.0-4.3) K/uL Yancey # (0.0-0.8) K/uL Eos # (0.0-0.7) K/uL Baso # (0.0-0.2) K/uL PT (9.7-12.2) SECONDS INR APTT (21-34) SECONDS Puncture Site pCO2 (35-45) mm/Hg pO2 (80-100) mm/Hg HCO3 (21-28) mmol/L ABG pH (7.35-7.45) ABG Total CO2 (22-28) mmol/L ABG O2 Saturation (95-98) % ABG Base Excess (-2.0-3.0) mmol/L ABG Hemoglobin (11.7-17.4) g/dL ABG Carboxyhemoglobin (0.5-1.5) % POC ABG HHb (Measured) (0.0-5.0) % ABG Methemoglobin (0.0-3.0) % Daniel Test A-a O2 Difference mm/Hg Respiratory Index Hgb O2 Saturation (95.0-98.0) % Vent Mode Mechanical Rate FiO2 % Tidal Volume PEEP Sodium (132-148) mmol/L Potassium (3.6-5.2) mmol/L Chloride (98-107) mmol/L Carbon Dioxide (22-30) mmol/L Anion Gap (10-20) BUN (7-17) mg/dL Creatinine (0.7-1.2) mg/dL Est GFR ( Amer) Est GFR (Non-Af Amer) POC Glucose (mg/dL) 89 74 (65-110) mg/dL Random Glucose (65-105) mg/dL Calcium (8.6-10.4) mg/dl Phosphorus (2.5-4.5) mg/dL Magnesium (1.6-2.3) mg/dL Total Bilirubin (0.2-1.3) mg/dL AST (14-36) U/L ALT (9-52) U/L Alkaline Phosphatase (38-126) U/L Total Protein (6.3-8.3) g/dL Albumin (3.5-5.0) g/dL Globulin (2.2-3.9) gm/dL Albumin/Globulin Ratio (1.0-2.1) Laboratory Results - last 24 hr 04/21/17 04/21/17 04/22/17 17:44 23:50 05:06 WBC RBC Hgb Hct MCV MCH MCHC RDW Plt Count MPV Neut % (Auto) Lymph % (Auto) Yancey % (Auto) Eos % (Auto) Baso % (Auto) Neut # Lymph # Yancey # Eos # Baso # PT INR APTT Puncture Site Rr pCO2 49 H pO2 103 H HCO3 26.2 ABG pH 7.36 ABG Total CO2 29.2 H ABG O2 Saturation 98.6 H ABG Base Excess 1.7 ABG Hemoglobin 10.5 L ABG Carboxyhemoglobin 1.5 POC ABG HHb (Measured) 1.4 ABG Methemoglobin 1.5 Daniel Test Pos A-a O2 Difference 85.0 Respiratory Index 0.8 Hgb O2 Saturation 95.6 Vent Mode Prvc Mechanical Rate 14 FiO2 35.0 Tidal Volume 450 PEEP 5 Sodium Potassium Chloride Carbon Dioxide Anion Gap BUN Creatinine Est GFR ( Amer) Est GFR (Non-Af Amer) POC Glucose (mg/dL) 74 89 Random Glucose Calcium Phosphorus Magnesium Total Bilirubin AST ALT Alkaline Phosphatase Total Protein Albumin Globulin Albumin/Globulin Ratio 04/22/17 04/22/17 04/22/17 05:26 06:11 06:11 WBC 17.5 H RBC 3.09 L Hgb 8.7 L Hct 26.3 L MCV 85.0 MCH 28.2 MCHC 33.1 RDW 15.4 H Plt Count 413 H MPV 8.5 Neut % (Auto) 72.8 Lymph % (Auto) 10.4 L Yancey % (Auto) 10.6 H Eos % (Auto) 5.9 H Baso % (Auto) 0.3 Neut # 12.8 H Lymph # 1.8 Yancey # 1.9 H Eos # 1.0 H Baso # 0.0 PT 13.5 H INR 1.2 APTT 30 Puncture Site pCO2 pO2 HCO3 ABG pH ABG Total CO2 ABG O2 Saturation ABG Base Excess ABG Hemoglobin ABG Carboxyhemoglobin POC ABG HHb (Measured) ABG Methemoglobin Daniel Test A-a O2 Difference Respiratory Index Hgb O2 Saturation Vent Mode Mechanical Rate FiO2 Tidal Volume PEEP Sodium Potassium Chloride Carbon Dioxide Anion Gap BUN Creatinine Est GFR ( Amer) Est GFR (Non-Af Amer) POC Glucose (mg/dL) 92 Random Glucose Calcium Phosphorus Magnesium Total Bilirubin AST ALT Alkaline Phosphatase Total Protein Albumin Globulin Albumin/Globulin Ratio 04/22/17 04/22/17 06:11 11:21 WBC RBC Hgb Hct MCV MCH MCHC RDW Plt Count MPV Neut % (Auto) Lymph % (Auto) Yancey % (Auto) Eos % (Auto) Baso % (Auto) Neut # Lymph # Yancey # Eos # Baso # PT INR APTT Puncture Site pCO2 pO2 HCO3 ABG pH ABG Total CO2 ABG O2 Saturation ABG Base Excess ABG Hemoglobin ABG Carboxyhemoglobin POC ABG HHb (Measured) ABG Methemoglobin Daniel Test A-a O2 Difference Respiratory Index Hgb O2 Saturation Vent Mode Mechanical Rate FiO2 Tidal Volume PEEP Sodium 131 L Potassium 3.3 L Chloride 97 L Carbon Dioxide 27 Anion Gap 11 BUN 22 H Creatinine 2.8 H Est GFR ( Amer) 23 Est GFR (Non-Af Amer) 19 POC Glucose (mg/dL) 103 Random Glucose 86 Calcium 7.4 L Phosphorus 2.9 Magnesium 1.7 Total Bilirubin 1.0 AST 23 ALT 17 Alkaline Phosphatase 138 H D Total Protein 5.4 L Albumin 2.6 L Globulin 2.8 Albumin/Globulin Ratio 0.9 L Critical Care Progress Note - Nutrition Nutrition: Nutrition Category Date Time Status NPO Diet [DIET] Diets 04/08/17 Dinner Active Assessment/Plan - Assessment and Plan (Free Text) Plan: Above note reviewed and verified. Patient with underling SMA syndrome, s/p surgical intervention. PEJ. Patient remains intubated. -will benfit from HD (tunelled cath in AM) -continue ventilation until all anticipated surgeries performed as patient is agitated at baseline. -monitor cbc, transfuse blood to keep hemodynamic stability -cc time 35 minutes
--- NOTE | 2017-04-21 09:11 | RAD ---
Chest x-ray single frontal view History: Intubated. Comparison: 04/20/2017 Findings: Lines and tubes in stable position. Confluent consolidative changes seen within the right hilar region extending into the right lung base. Venous congestion. Patchy increased markings at the left lung base. Mild cardiomegaly. Degenerative changes in the spine and shoulders. Impression: Lines and tubes in stable position. Confluent consolidative changes seen within the right hilar region extending into the right lung base. Venous congestion. Patchy increased markings at the left lung base. Mild cardiomegaly.
[2017-04-21] MEDS ORDERED: TPN IV SCH (10:00)
[2017-04-21 10:10] LABS: PROLACTIN 139.5 ng/mL (3.0-18.9)
--- NOTE | 2017-04-21 10:24 | CP.PCM.PN ---
Subjective - Date & Time of Evaluation Date of Evaluation: 04/21/17 Time of Evaluation: 10:21 - Subjective Subjective: Remains obtunded; now with increased UO Now very tachy; BP low- recommended IV vaso For dialysis now as creat still climbing Tolerating jejunostomy feeds? Will decrease UF goal as BP low Objective - Vital Signs/Intake and Output Vital Signs (last 24 hours): Temp Pulse Resp BP Pulse Ox 98.5 F 128 H 14 105/65 100 04/21/17 09:35 04/21/17 10:12 04/21/17 10:12 04/21/17 10:12 04/21/17 10:12 Intake and Output: 04/21/17 04/21/17 06:59 18:59 Intake Total 1776.3 196.7 Output Total 981 50 Balance 795.3 146.7 - Medications Medications: Current Medications Acetaminophen (Tylenol 650mg/20.3ml Solution Ud) 650 mg PO Q6 PRN PRN Reason: Temperature Last Admin: 04/20/17 10:10 Dose: 650 mg Acetaminophen (Tylenol 650 Mg Supp) 650 mg VT Q4 PRN PRN Reason: Fever >100.4 F Albuterol/Ipratropium (Duoneb 3 Mg/0.5 Mg (3 Ml) Ud) 3 ml INH RQ6 AGUSTIN Last Admin: 04/21/17 07:11 Dose: 3 ml Ascorbic Acid (Vitamin C 500 Mg Tab) 500 mg PO DAILY AGUSTIN Last Admin: 04/20/17 10:06 Dose: 500 mg Haloperidol Lactate (Haldol) 1 mg IVP BID PRN PRN Reason: Agitation Last Admin: 04/17/17 00:00 Dose: 1 mg Hydromorphone HCl (Dilaudid) 1 mg IVP Q3 PRN PRN Reason: Pain, severe (8-10) Last Admin: 04/18/17 14:50 Dose: 1 mg Midazolam HCl 100 mg/ Sodium (Chloride) 100 mls @ 1.35 mls/hr IV .Q24H AGUSTIN; 0.02 MG/KG/HR PRN Reason: Protocol Last Titration: 04/21/17 06:24 Dose: 0 mg/kg/hr, 0 mls/hr Fentanyl Citrate 2,500 mcg/ (Sodium Chloride) 250 mls @ 13.56 mls/hr IV .[id number] AGUSTIN; 2 MCG/KG/HR PRN Reason: Protocol Last Admin: 04/21/17 03:42 Dose: 2 mcg/kg/hr, 13.56 mls/hr Amino Acids/Electrolytes/Dextrose (Clinimix 5%-25% "E") 1,000 mls @ 63 mls/hr IV .[id number] [facility] Stop: 04/21/17 18:00 Fluconazole (Diflucan Iv 200 Mg/100 Ml Ns) 100 mls @ 100 mls/hr IVPB DAILY [facility] Meropenem 500 mg/ Sodium (Chloride) 100 mls @ 100 mls/hr IVPB Q8 [facility] Last Admin: 04/21/17 05:35 Dose: 100 mls/hr Dexmedetomidine HCl 200 mcg/ (Sodium Chloride) 50 mls @ 3.4 mls/hr IV TITR PRN ; Protocol; 0.2 MCG/KG/HR PRN Reason: Agitation Last Admin: 04/21/17 06:23 Dose: 0.2 mcg/kg/hr, 3.4 mls/hr Vasopressin 40 units/ Sodium (Chloride) 40 mls @ 0.6 mls/hr IV .Q24H PRN; Protocol; 0.01 UNITS/MIN PRN Reason: TITRATE PER PROTOCOL Last Admin: 04/21/17 10:12 Dose: 0.01 units/min, 0.6 mls/hr Lorazepam (Ativan) 0.5 mg IVP Q3H PRN PRN Reason: Anxiety Last Admin: 04/18/17 03:30 Dose: 0.5 mg Lorazepam (Ativan) 2 mg IVP Q4H PRN PRN Reason: Seizure activity Last Admin: 04/20/17 20:00 Dose: 2 mg Ondansetron HCl (Zofran Inj) 4 mg IVP Q6H PRN PRN Reason: Nausea/Vomiting Last Admin: 04/11/17 21:39 Dose: 4 mg Pantoprazole Sodium (Protonix Inj) 20 mg IVP BID [facility] Last Admin: 04/20/17 17:49 Dose: 20 mg Saccharomyces Boulardii (Florastor) 250 mg PO BID [facility] Last Admin: 04/20/17 17:49 Dose: 250 mg Thiamine HCl (Vitamin B1 Tab) 100 mg PO DAILY [facility] Last Admin: 04/20/17 10:08 Dose: 100 mg - Labs Labs: 04/21/17 06:36 04/21/17 06:36 PT 13.0 SECONDS (9.7-12.2) H 04/18/17 06:44 INR 1.2 04/18/17 06:44 APTT 30 SECONDS (21-34) 04/17/17 06:38 - Constitutional Appears: In Acute Distress, Chronically Ill - Head Exam Head Exam: ATRAUMATIC, NORMAL INSPECTION - Eye Exam Eye Exam: EOMI. absent: Normal appearance - Neck Exam Neck Exam: Normal Inspection. absent: Tenderness - Respiratory Exam Respiratory Exam: Clear to Ausculation Bilateral, Respiratory Distress - Cardiovascular Exam Cardiovascular Exam: Tachycardia, +S1 - GI/Abdominal Exam GI & Abdominal Exam: Soft. absent: Tenderness - Extremities Exam Extremities Exam: Normal Inspection. absent: Tenderness - Neurological Exam Neurological Exam: Altered - Skin Skin Exam: Dry, Warm Assessment and Plan (1) JIMBO (acute kidney injury) Status: Acute (2) Acute pancreatitis Status: Acute (3) SBO (small bowel obstruction) Status: Acute (4) Schizophrenia Status: Acute - Assessment and Plan (Free Text) Plan: Dialysis now IV albumin pressors as needed J tube feeds
[2017-04-21] MEDS: Saccharomyces Boulardi 250 mg Cap PO SCH ×2 (13:06→17:46)
[2017-04-21] MEDS: Fluconazole IV 200mg/100 ml NS 100 ML IVPB SCH (13:09)
--- NOTE | 2017-04-21 14:32 | CP.PCM.PN ---
Subjective - Date & Time of Evaluation Date of Evaluation: 04/21/17 Time of Evaluation: 14:29 - Subjective Subjective: Surgery Pt s&e. Pt intubated and sedated. Response to some pain stimuli. Objective - Vital Signs/Intake and Output Vital Signs (last 24 hours): Temp Pulse Resp BP Pulse Ox 98.3 F 136 H 14 122/92 H 100 04/21/17 12:35 04/21/17 12:35 04/21/17 12:35 04/21/17 12:35 04/21/17 12:35 Intake and Output: 04/21/17 04/21/17 06:59 18:59 Intake Total 1776.3 1028.8 Output Total 981 1030 Balance 795.3 -1.2 - Medications Medications: Current Medications Acetaminophen (Tylenol 650mg/20.3ml Solution Ud) 650 mg PO Q6 PRN PRN Reason: Temperature Last Admin: 04/20/17 10:10 Dose: 650 mg Acetaminophen (Tylenol 650 Mg Supp) 650 mg AR Q4 PRN PRN Reason: Fever >100.4 F Albuterol/Ipratropium (Duoneb 3 Mg/0.5 Mg (3 Ml) Ud) 3 ml INH RQ6 [facility]USTIN Last Admin: 04/21/17 07:11 Dose: 3 ml Ascorbic Acid (Vitamin C 500 Mg Tab) 500 mg PO DAILY [facility] Last Admin: 04/21/17 13:05 Dose: 500 mg Haloperidol Lactate (Haldol) 1 mg IVP BID PRN PRN Reason: Agitation Last Admin: 04/17/17 00:00 Dose: 1 mg Hydromorphone HCl (Dilaudid) 1 mg IVP Q3 PRN PRN Reason: Pain, severe (8-10) Last Admin: 04/18/17 14:50 Dose: 1 mg Midazolam HCl 100 mg/ Sodium (Chloride) 100 mls @ 1.35 mls/hr IV .Q24H AGUSTIN; 0.02 MG/KG/HR PRN Reason: Protocol Last Titration: 04/21/17 06:24 Dose: 0 mg/kg/hr, 0 mls/hr Fentanyl Citrate 2,500 mcg/ (Sodium Chloride) 250 mls @ 13.56 mls/hr IV .[id number] AGUSTIN; 2 MCG/KG/HR PRN Reason: Protocol Last Titration: 04/21/17 10:41 Dose: 4 mcg/kg/hr, 27.12 mls/hr Fluconazole (Diflucan Iv 200 Mg/100 Ml Ns) 100 mls @ 100 mls/hr IVPB DAILY [facility] Last Admin: 04/21/17 13:09 Dose: 100 mls/hr Meropenem 500 mg/ Sodium (Chloride) 100 mls @ 100 mls/hr IVPB Q8 [facility] Last Admin: 04/21/17 05:35 Dose: 100 mls/hr Dexmedetomidine HCl 200 mcg/ (Sodium Chloride) 50 mls @ 3.4 mls/hr IV TITR PRN ; Protocol; 0.2 MCG/KG/HR PRN Reason: Agitation Last Titration: 04/21/17 10:35 Dose: 0.3 mcg/kg/hr, 5.1 mls/hr Vasopressin 40 units/ Sodium (Chloride) 40 mls @ 0.6 mls/hr IV .Q24H PRN; Protocol; 0.01 UNITS/MIN PRN Reason: TITRATE PER PROTOCOL Last Admin: 04/21/17 10:12 Dose: 0.01 units/min, 0.6 mls/hr Lorazepam (Ativan) 0.5 mg IVP Q3H PRN PRN Reason: Anxiety Last Admin: 04/18/17 03:30 Dose: 0.5 mg Lorazepam (Ativan) 2 mg IVP Q4H PRN PRN Reason: Seizure activity Last Admin: 04/21/17 10:35 Dose: 2 mg Ondansetron HCl (Zofran Inj) 4 mg IVP Q6H PRN PRN Reason: Nausea/Vomiting Last Admin: 04/11/17 21:39 Dose: 4 mg Pantoprazole Sodium (Protonix Inj) 20 mg IVP BID [facility] Last Admin: 04/21/17 13:07 Dose: 20 mg Saccharomyces Boulardii (Florastor) 250 mg PO BID [facility] Last Admin: 04/21/17 13:06 Dose: 250 mg Thiamine HCl (Vitamin B1 Tab) 100 mg PO DAILY [facility] Last Admin: 04/21/17 13:07 Dose: 100 mg - Labs Labs: 04/21/17 06:36 04/21/17 06:36 PT 13.0 SECONDS (9.7-12.2) H 04/18/17 06:44 INR 1.2 04/18/17 06:44 APTT 30 SECONDS (21-34) 04/17/17 06:38 - Constitutional Appears: Non-toxic - Head Exam Head Exam: ATRAUMATIC, NORMAL INSPECTION, NORMOCEPHALIC - ENT Exam ENT Exam: Mucous Membranes Moist, Normal Exam - Respiratory Exam Respiratory Exam: Respiratory Distress. absent: NORMAL BREATHING PATTERN Additional comments: Intubated. sedated. - Cardiovascular Exam Cardiovascular Exam: REGULAR RHYTHM, +S1, +S2. absent: Murmur - GI/Abdominal Exam GI & Abdominal Exam: Soft, Normal Bowel Sounds. absent: Distended, Firm, Guarding, Rigid, Tenderness - Extremities Exam Extremities Exam: Full ROM, Normal Capillary Refill, Normal Inspection. absent : Joint Swelling, Pedal Edema - Back Exam Back Exam: NORMAL INSPECTION - Neurological Exam Neurological Exam: Altered. absent: Awake, Normal Gait, Oriented x3 - Skin Skin Exam: Dry, Intact, Normal Color, Warm Assessment and Plan - Assessment and Plan (Free Text) Assessment: 36 F s/p ex lap Frida en Y gastrojejunostomy and feeding jejunostomy POD#3. Renal failure -possible Permacath today or tomorrow -Tube feeds -Pain control -Monitor bowel function -Strict I's & O's -ICU management -Discussed with Dr. Mendez
[2017-04-21] MEDS: Dexmedetomidine Hydrochloride 400 MCG in Sodium Chloride 0.9% 96 ML IV PRN (16:54)
[2017-04-21] MEDS: Midazolam 50 mg/10 ml 100 MG in Sodium Chloride 0.9% 80 ML IV SCH (17:05)
--- NOTE | 2017-04-21 19:27 | CP.PCM.PN ---
Subjective - Date & Time of Evaluation Date of Evaluation: 04/21/17 Time of Evaluation: 08:00 - Subjective Subjective: events noted merrem d/c'd dr valverde on board no new cultures Objective - Vital Signs/Intake and Output Vital Signs (last 24 hours): Temp Pulse Resp BP Pulse Ox 98.3 F 130 H 14 102/66 99 04/21/17 12:35 04/21/17 18:23 04/21/17 18:23 04/21/17 18:23 04/21/17 18:23 Intake and Output: 04/21/17 04/22/17 18:59 06:59 Intake Total 1539.6 Output Total 1030 Balance 509.6 - Medications Medications: Current Medications Acetaminophen (Tylenol 650mg/20.3ml Solution Ud) 650 mg PO Q6 PRN PRN Reason: Temperature Last Admin: 04/20/17 10:10 Dose: 650 mg Acetaminophen (Tylenol 650 Mg Supp) 650 mg ND Q4 PRN PRN Reason: Fever >100.4 F Albuterol/Ipratropium (Duoneb 3 Mg/0.5 Mg (3 Ml) Ud) 3 ml INH RQ6 [facility]USTIN Last Admin: 04/21/17 07:11 Dose: 3 ml Ascorbic Acid (Vitamin C 500 Mg Tab) 500 mg PO DAILY [facility] Last Admin: 04/21/17 13:05 Dose: 500 mg Haloperidol Lactate (Haldol) 1 mg IVP BID PRN PRN Reason: Agitation Last Admin: 04/17/17 00:00 Dose: 1 mg Hydromorphone HCl (Dilaudid) 1 mg IVP Q3 PRN PRN Reason: Pain, severe (8-10) Last Admin: 04/18/17 14:50 Dose: 1 mg Fluconazole (Diflucan Iv 200 Mg/100 Ml Ns) 100 mls @ 100 mls/hr IVPB DAILY [facility] Last Admin: 04/21/17 13:09 Dose: 100 mls/hr Vasopressin 40 units/ Sodium (Chloride) 40 mls @ 0.6 mls/hr IV .Q24H PRN; Protocol; 0.01 UNITS/MIN PRN Reason: TITRATE PER PROTOCOL Last Admin: 04/21/17 10:12 Dose: 0.01 units/min, 0.6 mls/hr Dexmedetomidine HCl 400 mcg/ (Sodium Chloride) 100 mls @ 3.4 mls/hr IV TITR PRN ; Protocol; 0.2 MCG/KG/HR PRN Reason: Agitation Last Titration: 04/21/17 17:35 Dose: 0.4 mcg/kg/hr, 6.8 mls/hr Fentanyl Citrate 2,500 mcg/ (Sodium Chloride) 250 mls @ 13.56 mls/hr IV .[id number] PRN; Protocol; 2 MCG/KG/HR PRN Reason: TITRATE PER MD ORDER Last Titration: 04/21/17 17:30 Dose: 5 mcg/kg/hr, 33.9 mls/hr Cefepime HCl (Maxipime Iv 1 Gm Premix) 1 gm in 50 mls @ 100 mls/hr IVPB Q24H [facility] Lorazepam (Ativan) 0.5 mg IVP Q3H PRN PRN Reason: Anxiety Last Admin: 04/18/17 03:30 Dose: 0.5 mg Lorazepam (Ativan) 2 mg IVP Q4H PRN PRN Reason: Seizure activity Last Admin: 04/21/17 10:35 Dose: 2 mg Ondansetron HCl (Zofran Inj) 4 mg IVP Q6H PRN PRN Reason: Nausea/Vomiting Last Admin: 04/11/17 21:39 Dose: 4 mg Pantoprazole Sodium (Protonix Inj) 20 mg IVP BID [facility] Last Admin: 04/21/17 17:46 Dose: 20 mg Saccharomyces Boulardii (Florastor) 250 mg PO BID [facility] Last Admin: 04/21/17 17:46 Dose: 250 mg Thiamine HCl (Vitamin B1 Tab) 100 mg PO DAILY [facility] Last Admin: 04/21/17 13:07 Dose: 100 mg - Labs Labs: 04/21/17 06:36 04/21/17 06:36 PT 13.0 SECONDS (9.7-12.2) H 04/18/17 06:44 INR 1.2 04/18/17 06:44 APTT 30 SECONDS (21-34) 04/17/17 06:38 Assessment and Plan (1) Acute pancreatitis Status: Acute (2) Leucocytosis Status: Acute
[2017-04-21] MEDS: Cefepime IV 1 gm in Dextrose 1 GM/50 ML BAG IVPB SCH (20:58)
[2017-04-21] MEDS: Acetaminophen 650mg/20.3ml solution UD PO PRN (21:41)
[2017-04-22] MEDS ORDERED: Dextrose 5%/0.45% NS 1,000 ML IV SCH (00:15)
[2017-04-22] MEDS: Albuterol-Ipratrop 3 mg / 0.5 (3 ml) UD INH SCH ×4 (01:17→20:32)
[2017-04-22 06:20] LABS: BASO % 0.3 % (0.0-2.0); EOS % 5.9 % (0.0-4.0); HEMOGLOBIN 8.7 g/dL (11.0-16.0); LYMPH # 1.8 K/uL (1.0-4.3); LYMPH % 10.4 % (20.0-40.0); MEAN CORPUSCULAR HEMOGLOBIN 28.2 pg (27.0-31.0); MEAN CORPUSCULAR HGB CONC 33.1 g/dL (33.0-37.0); MEAN PLATELET VOLUME 8.5 fL (7.2-11.7); MONO # 1.9 K/uL (0.0-0.8); MONO % 10.6 % (0.0-10.0); NEUT # 12.8 K/uL (1.8-7.0); NEUT % 72.8 % (50.0-75.0); RBC 3.09 Mil/uL (3.80-5.20); RED CELL DISTRIBUTION WIDTH 15.4 % (11.5-14.5); WHITE BLOOD COUNT 17.5 K/uL (4.8-10.8)
[2017-04-22 06:31] LABS: ABG ALLEN TEST POS; ARTERIAL BLOOD GAS HCO3 26.2 mmol/L (21-28); ARTERIAL BLOOD GAS HEMOGLOBIN 10.5 g/dL (11.7-17.4); ARTERIAL BLOOD GAS O2 SAT 98.6 % (95-98); ARTERIAL BLOOD GAS PCO2 49 mm/Hg (35-45); ARTERIAL BLOOD GAS PH 7.36 (7.35-7.45); ARTERIAL BLOOD GAS PO2 103 mm/Hg (80-100); ARTERIAL BLOOD GAS TCO2 29.2 mmol/L (22-28)
[2017-04-22 06:38] LABS: INR 1.2; PROTHROMBIN TIME 13.5 SECONDS (9.7-12.2)
[2017-04-22 06:46] LABS: ALB/GLOB RATIO 0.9 (1.0-2.1); ALBUMIN 2.6 g/dL (3.5-5.0); CALCIUM 7.4 mg/dl (8.6-10.4)
[2017-04-22] MEDS: Dexmedetomidine Hydrochloride 400 MCG in Sodium Chloride 0.9% 96 ML IV PRN (07:14)
--- NOTE | 2017-04-22 07:21 | CP.PCM.PN ---
<Katheryn Silveira - Last Filed: 04/22/17 14:01> Subjective - Date & Time of Evaluation Date of Evaluation: 04/22/17 Time of Evaluation: 07:00 - Subjective Subjective: GI Fellow PGY4 Progress Note Pt seen and evaluated at bedside, pt intubated on MV post surgery. Pt uncomfortable and in pain, HR 130s. Per nursing pain controlled on Fentanyl and Precedex and she had two witnessed seizures yesterday. Pt was transfused 1U PRBCs with Hgb 7.0. Pt had a rectal Temp 103.0 last night and was placed on a cooling blanket and given Tylenol, Temp this am is 100.3. Pt with some serosangious outpt via ostomy and TOBI drain 150cc. Pt on TF tolerating well on hold for permacath today, no BM since surgery. Pt was hypotensive yesterday SBP in 80s and placed on versed which is on hold since midnight and BP stable. ROS: A 12pt ROS was unable to be obtained, pt nonverbal Objective - Vital Signs/Intake and Output Vital Signs (last 24 hours): Temp Pulse Resp BP Pulse Ox 99 F 111 H 14 95/62 L 100 04/22/17 06:02 04/22/17 07:00 04/22/17 07:00 04/22/17 06:53 04/22/17 07:00 Intake and Output: 04/22/17 04/22/17 06:59 18:59 Intake Total 1710.9 Output Total 950 Balance 760.9 - Medications Medications: Current Medications Acetaminophen (Tylenol 650mg/20.3ml Solution Ud) 650 mg PO Q6 PRN PRN Reason: Temperature Last Admin: 04/21/17 21:41 Dose: 650 mg Acetaminophen (Tylenol 650 Mg Supp) 650 mg IN Q4 PRN PRN Reason: Fever >100.4 F Albuterol/Ipratropium (Duoneb 3 Mg/0.5 Mg (3 Ml) Ud) 3 ml INH RQ6 AGUSTIN Last Admin: 04/22/17 01:17 Dose: 3 ml Ascorbic Acid (Vitamin C 500 Mg Tab) 500 mg PO DAILY [facility] Last Admin: 04/21/17 13:05 Dose: 500 mg Haloperidol Lactate (Haldol) 1 mg IVP BID PRN PRN Reason: Agitation Last Admin: 04/17/17 00:00 Dose: 1 mg Hydromorphone HCl (Dilaudid) 1 mg IVP Q3 PRN PRN Reason: Pain, severe (8-10) Last Admin: 04/18/17 14:50 Dose: 1 mg Fluconazole (Diflucan Iv 200 Mg/100 Ml Ns) 100 mls @ 100 mls/hr IVPB DAILY [facility] Last Admin: 04/21/17 13:09 Dose: 100 mls/hr Vasopressin 40 units/ Sodium (Chloride) 40 mls @ 0.6 mls/hr IV .Q24H PRN; Protocol; 0.01 UNITS/MIN PRN Reason: TITRATE PER PROTOCOL Last Titration: 04/22/17 00:39 Dose: 0 units/min, 0 mls/hr Dexmedetomidine HCl 400 mcg/ (Sodium Chloride) 100 mls @ 3.4 mls/hr IV TITR PRN ; Protocol; 0.2 MCG/KG/HR PRN Reason: Agitation Last Admin: 04/22/17 07:14 Dose: 0.4 mcg/kg/hr, 6.8 mls/hr Fentanyl Citrate 2,500 mcg/ (Sodium Chloride) 250 mls @ 13.56 mls/hr IV .[id number] PRN; Protocol; 2 MCG/KG/HR PRN Reason: TITRATE PER MD ORDER Last Admin: 04/22/17 06:17 Dose: 5 mcg/kg/hr, 33.9 mls/hr Cefepime HCl (Maxipime Iv 1 Gm Premix) 1 gm in 50 mls @ 100 mls/hr IVPB Q24H [facility] Last Admin: 04/21/17 20:58 Dose: 100 mls/hr Vancomycin HCl 500 mg/ Sodium (Chloride) 100 mls @ 100 mls/hr IVPB [facility] [place] Dextrose/Sodium Chloride (Dextrose 5%/0.45% Ns 1000 Ml) 1,000 mls @ 50 mls/hr IV .Q20H [facility] Last Admin: 04/22/17 00:17 Dose: 50 mls/hr Potassium Chloride (Potassium Chloride 20 Meq/100 Ml) 20 meq in 100 mls @ 50 mls/hr IVPB ONCE ONE Stop: 04/22/17 09:59 Lorazepam (Ativan) 0.5 mg IVP Q3H PRN PRN Reason: Anxiety Last Admin: 04/18/17 03:30 Dose: 0.5 mg Lorazepam (Ativan) 2 mg IVP Q4H PRN PRN Reason: Seizure activity Last Admin: 04/21/17 10:35 Dose: 2 mg Ondansetron HCl (Zofran Inj) 4 mg IVP Q6H PRN PRN Reason: Nausea/Vomiting Last Admin: 04/11/17 21:39 Dose: 4 mg Pantoprazole Sodium (Protonix Inj) 20 mg IVP BID [facility] Last Admin: 04/21/17 17:46 Dose: 20 mg Saccharomyces Boulardii (Florastor) 250 mg PO BID [facility] Last Admin: 04/21/17 17:46 Dose: 250 mg Thiamine HCl (Vitamin B1 Tab) 100 mg PO DAILY [facility] Last Admin: 04/21/17 13:07 Dose: 100 mg - Labs Labs: 04/22/17 06:11 04/22/17 06:11 PT 13.5 SECONDS (9.7-12.2) H 04/22/17 06:11 INR 1.2 04/22/17 06:11 APTT 30 SECONDS (21-34) 04/22/17 06:11 - Constitutional Appears: In Acute Distress, Agitated, Chronically Ill - Head Exam Head Exam: ATRAUMATIC, NORMAL INSPECTION, NORMOCEPHALIC - Eye Exam Eye Exam: PERRL - ENT Exam ENT Exam: Mucous Membranes Dry Additional comments: NGT - Respiratory Exam Respiratory Exam: Rhonchi, Respiratory Distress - Cardiovascular Exam Cardiovascular Exam: Tachycardia - GI/Abdominal Exam GI & Abdominal Exam: Soft, Normal Bowel Sounds. absent: Distended, Guarding Additional comments: TOBI with serosangious outpt drainage around ostomy NFT with bilious outpt - Extremities Exam Extremities Exam: Pedal Edema - Psychiatric Exam Psychiatric exam: Agitated, Depressed - Skin Skin Exam: Dry, Intact, Normal Color, Warm Assessment and Plan - Assessment and Plan (Free Text) Assessment: Alondra Rivera is a 37F w/ hx of Schizophrenia, mental disability who presents to the hospital due to abdominal pain. She was found to have acute pancreatitis and severe gastric distention with retained food. Acute renal failure on HD. 1. SMA syndrome 2. Anemia 3. Sepsis 4. Hemorrhagic/ischemic gastropathy 5. Phytobezor, marked stomach distention 6. Complicated Acute pancreatitis 7. Renal failure s/p HD 8. s/p Asim-en-Y gastrojejunostomy, jejunostomy feeding tube Plan: -Continue supportive care with pain control and s/p mechanical ventilation post- op -Continue NPO -Continue PPI 40 IV bid -Pancreatitis improved -No GI bleeding, keep hgb > 7 s/p 1UPRBCs -Continue antibiotics as per ID, pt with fever and hypotesion yesterday -Renal failure s/p HD -s/p Asim-en-Y gastrojejunostomy, jejunostomy feeding tube, further recommendations per surgery -May need repeat CT imaging in a few days -Tube Feeds on hold for permacath today -Please call with any questions or concerns <Dov Meade - Last Filed: 04/22/17 17:43> Objective - Vital Signs/Intake and Output Vital Signs (last 24 hours): Temp Pulse Resp BP Pulse Ox 98.9 F 112 H 13 113/68 100 04/22/17 08:00 04/22/17 16:23 04/22/17 16:23 04/22/17 16:23 04/22/17 16:23 Intake and Output: 04/22/17 04/22/17 06:59 18:59 Intake Total 1710.9 1433.7 Output Total 950 881 Balance 760.9 552.7 - Medications Medications: Current Medications Acetaminophen (Tylenol 650mg/20.3ml Solution Ud) 650 mg PO Q6 PRN PRN Reason: Temperature Last Admin: 04/21/17 21:41 Dose: 650 mg Acetaminophen (Tylenol 650 Mg Supp) 650 mg IN Q4 PRN PRN Reason: Fever >100.4 F Albuterol/Ipratropium (Duoneb 3 Mg/0.5 Mg (3 Ml) Ud) 3 ml INH RQ6 [facility] Last Admin: 04/22/17 13:05 Dose: 3 ml Ascorbic Acid (Vitamin C 500 Mg Tab) 500 mg PO DAILY [facility] Last Admin: 04/22/17 09:55 Dose: Not Given Haloperidol Lactate (Haldol) 1 mg IVP BID PRN PRN Reason: Agitation Last Admin: 04/17/17 00:00 Dose: 1 mg Hydromorphone HCl (Dilaudid) 1 mg IVP Q3 PRN PRN Reason: Pain, severe (8-10) Last Admin: 04/18/17 14:50 Dose: 1 mg Fluconazole (Diflucan Iv 200 Mg/100 Ml Ns) 100 mls @ 100 mls/hr IVPB DAILY [facility] Last Admin: 04/22/17 10:05 Dose: 100 mls/hr Vasopressin 40 units/ Sodium (Chloride) 40 mls @ 0.6 mls/hr IV .Q24H PRN; Protocol; 0.01 UNITS/MIN PRN Reason: TITRATE PER PROTOCOL Last Titration: 04/22/17 00:39 Dose: 0 units/min, 0 mls/hr Dexmedetomidine HCl 400 mcg/ (Sodium Chloride) 100 mls @ 3.4 mls/hr IV TITR PRN ; Protocol; 0.2 MCG/KG/HR PRN Reason: Agitation Last Titration: 04/22/17 09:42 Dose: 0.2 mcg/kg/hr, 3.4 mls/hr Fentanyl Citrate 2,500 mcg/ (Sodium Chloride) 250 mls @ 13.56 mls/hr IV .[id number] PRN; Protocol; 2 MCG/KG/HR PRN Reason: TITRATE PER MD ORDER Last Titration: 04/22/17 14:03 Dose: 4 mcg/kg/hr, 27.12 mls/hr Cefepime HCl (Maxipime Iv 1 Gm Premix) 1 gm in 50 mls @ 100 mls/hr IVPB Q24H [facility] Last Admin: 04/21/17 20:58 Dose: 100 mls/hr Vancomycin HCl 500 mg/ Sodium (Chloride) 100 mls @ 100 mls/hr IVPB MWF [facility] Last Admin: 04/22/17 09:54 Dose: 100 mls/hr Dextrose/Sodium Chloride (Dextrose 5%/0.45% Ns 1000 Ml) 1,000 mls @ 50 mls/hr IV .Q20H [facility] Last Admin: 04/22/17 00:17 Dose: 50 mls/hr Levetiracetam (Keppra) 250 mg PO BID [facility] Lorazepam (Ativan) 0.5 mg IVP Q3H PRN PRN Reason: Anxiety Last Admin: 04/18/17 03:30 Dose: 0.5 mg Lorazepam (Ativan) 2 mg IVP Q4H PRN PRN Reason: Seizure activity Last Admin: 04/21/17 10:35 Dose: 2 mg Ondansetron HCl (Zofran Inj) 4 mg IVP Q6H PRN PRN Reason: Nausea/Vomiting Last Admin: 04/11/17 21:39 Dose: 4 mg Pantoprazole Sodium (Protonix Inj) 20 mg IVP BID [facility] Last Admin: 04/22/17 09:53 Dose: 20 mg Saccharomyces Boulardii (Florastor) 250 mg PO BID [facility] Last Admin: 04/22/17 09:55 Dose: Not Given Thiamine HCl (Vitamin B1 Tab) 100 mg PO DAILY [facility] Last Admin: 04/22/17 09:55 Dose: Not Given - Labs Labs: 04/22/17 06:11 04/22/17 06:11 PT 13.5 SECONDS (9.7-12.2) H 04/22/17 06:11 INR 1.2 04/22/17 06:11 APTT 30 SECONDS (21-34) 04/22/17 06:11 Attending/Attestation - Attestation I have personally seen and examined this patient.: Yes I have fully participated in the care of the patient.: Yes I have reviewed all pertinent clinical information, including history, physical exam and plan: Yes Notes (Text): 04/22/17 17:42 37 year old female with h/o mental disability/schizophrenia who is admitted with abdominal pain, found to have severe gastric distention, acute pancreatitis , gastric bezoar, severe upper GI bleeding due to gastric ulceration due to SMA syndrome. 1. SMA syndrome 2. Acute pancreatitis 3. Gastric bezoar 4. Gastric ulcer with hemorrhage Plan: -patient POD 5 now, gastro-jejunostomy as well as a feeding jejunostomy -she is tolerating tube feeds, but no bm still -still having bilious output from NGT -no GI bleeding noted, but required transfusion -continue PPI -on dialysis for renal failure -weaning from sedation/ventilator per ICU -continue supportive measures -neurology consulted today due to possible seizure -would recommend abdominal x ray today -would consider CT abdomen/pelvis when medically stable to -re-evaluate abdomen
--- NOTE | 2017-04-22 07:47 | CP.CCUPN ---
Addendum entered and electronically signed by Pari Smith DO 04/22/17 09:47: Plan: to get central line placement, renal dialysis catheter to be removed post permacath Original Note: <Pari Smith - Last Filed: 04/22/17 09:46> CCU Subjective - Physician Review Subjective (Free Text): Progress note for Dr. Granger Patient seen and examined at bedside. 21:00 Axillary temperature 102.2, 102.5. Tylenol and ice packs given. 101.9 after cooling blanket. 23:30 Rectal T-103. Patient was given cooling blacket and rechecked tempurature 30 min later 98.8. 24 hour TOBI drain output LLQ 283, serosanguinous 24 hour jejunostomy bag output RLQ 8cc, serosanguinous Patient is getting permacath today. Critical Care Time Spent (in minutes): 35 CCU Objective - Vital Signs / Intake & Output Vital Signs (Last 4 hours): Vital Signs Temp Pulse Resp BP Pulse Ox 04/22/17 07:00 111 H 14 100 04/22/17 06:53 123 H 14 95/62 L 100 04/22/17 06:23 139 H 16 116/69 99 04/22/17 06:02 99 F 04/22/17 06:00 103 H 14 99 04/22/17 05:54 128 H 17 123/78 96 04/22/17 05:23 90 13 99/59 L 100 04/22/17 05:21 98.3 F 04/22/17 05:00 90 14 100 04/22/17 04:53 88 14 97/56 L 100 04/22/17 04:41 97.7 F 04/22/17 04:23 91 H 14 97/54 L 100 04/22/17 04:00 92 H 14 100 04/22/17 03:53 95 H 14 100/54 L 100 Intake and Output (Last 8hrs): Intake & Output 04/21/17 04/22/17 04/22/17 22:59 06:59 14:59 Intake Total 950.8 1158.1 Output Total 648 730 Balance 302.8 428.1 Weight 151 lb 14.376 oz Intake: IV 300 348.9 Intake, IV Amount 380.8 729.2 Left Distal Port Wrist 44.8 Left Wrist 281.2 Right Antecubital 66.6 Right Femoral 310.8 Right Medial Port Femoral 350 Rt Femoral 54.8 1.8 Tube Feeding 240 60 Other 30 20 Output: Gastric Amount 200 300 Right Nares 200 300 Drainage 68 135 Left Lower Abdomen 60 135 Right Lower Abdomen 8 Urine 380 295 Urethral (Tovar) 380 295 - Physical Exam Head: Positive for: Atraumatic, Normocephalic. Negative for: Tenderness Pupils: Positive for: PERRL Extroacular Muscles: Positive for: EOMI Mouth: Positive for: Moist Mucous Membranes. Negative for: Dry, Drooling Nose (External): Positive for: Other (NGT in place) Nose (Internal): Positive for: Normal Inspection, Moist Neck: Positive for: Normal Range of Motion. Negative for: JVD, Lymphadenopathy Respiratory/Chest: Positive for: Clear to Auscultation. Negative for: Respiratory Distress, Accessory Muscle Use Cardiovascular: Positive for: Regular Rate and Rhythm, Normal S1, S2 Abdomen: Positive for: Tenderness (mild tenderness of palpation. patient continues to move her arms towards hands on palpation). Negative for: Distention, Guarding Upper Extremity: Positive for: Normal Inspection, Normal ROM, Capillary Refill < 2s. Negative for: Edema Lower Extremity: Positive for: Normal Inspection. Negative for: Edema Neurological: Positive for: CN II-XII Intact Skin: Positive for: Warm, Pale Psychiatric: Positive for: Alert - Medications Active Medications: Active Medications Generic Name Dose Route Start Last Admin Trade Name Freq PRN Reason Stop Dose Admin Acetaminophen 650 mg 04/20/17 09:08 04/21/17 21:41 Tylenol 650mg/20.3ml Solution Ud PO 650 mg Q6 PRN Administration Temperature Acetaminophen 650 mg 04/20/17 10:17 Tylenol 650 Mg Supp PA Q4 PRN Fever >100.4 F Albuterol/Ipratropium 3 ml 04/18/17 14:00 04/22/17 07:29 Duoneb 3 Mg/0.5 Mg (3 Ml) Ud INH 3 ml RQ6 AGUSTIN Administration Ascorbic Acid 500 mg 04/08/17 12:30 04/21/17 13:05 Vitamin C 500 Mg Tab PO 500 mg DAILY AGUSTIN Administration Haloperidol Lactate 1 mg 03/29/17 18:47 04/17/17 00:00 Haldol IVP 1 mg BID PRN Administration Agitation Hydromorphone HCl 1 mg 01/07/18 07:16 04/18/17 14:50 Dilaudid IVP 1 mg Q3 PRN Administration Pain, severe (8-10) Fluconazole 100 mls @ 100 mls/hr 04/21/17 10:00 04/21/17 13:09 Diflucan Iv 200 Mg/100 Ml Ns IVPB 100 mls/hr DAILY AGUSTIN Administration Vasopressin 40 units/ Sodium 40 mls @ 0.6 mls/hr 04/21/17 09:30 04/22/17 00: 39 Chloride IV 0 units/min .Q24H PRN 0 mls/hr TITRATE PER PROTOCOL Titration Protocol 0.01 UNITS/MIN Dexmedetomidine HCl 400 mcg/ 100 mls @ 3.4 mls/hr 04/21/17 16:30 04/22/17 07: 14 Sodium Chloride IV 0.4 mcg/kg/hr TITR PRN 6.8 mls/hr Agitation Administration Protocol 0.2 MCG/KG/HR Fentanyl Citrate 2,500 mcg/ 250 mls @ 13.56 mls/hr 04/21/17 17:00 04/22/17 06 :17 Sodium Chloride IV 5 mcg/kg/hr .[id number] PRN 33.9 mls/hr TITRATE PER MD ORDER Administration Protocol 2 MCG/KG/HR Cefepime HCl 1 gm in 50 mls @ 100 mls/hr 04/21/17 19:30 04/21/17 20:58 Maxipime Iv 1 Gm Premix IVPB 100 mls/hr Q24H AGUSTIN Administration Vancomycin HCl 500 mg/ Sodium 100 mls @ 100 mls/hr 04/22/17 09:00 Chloride IVPB MWF AGUSTIN Dextrose/Sodium Chloride 1,000 mls @ 50 mls/hr 04/22/17 00:15 04/22/17 00:17 Dextrose 5%/0.45% Ns 1000 Ml IV 50 mls/hr .Q20H AGUSTIN Administration Potassium Chloride 20 meq in 100 mls @ 50 mls/hr 04/22/17 08:00 Potassium Chloride 20 Meq/100 Ml IVPB 04/22/17 09:59 ONCE ONE Lorazepam 0.5 mg 04/01/17 16:08 04/18/17 03:30 Ativan IVP 0.5 mg Q3H PRN Administration Anxiety Lorazepam 2 mg 04/20/17 18:18 04/21/17 10:35 Ativan IVP 2 mg Q4H PRN Administration Seizure activity Ondansetron HCl 4 mg 03/27/17 23:45 04/11/17 21:39 Zofran Inj IVP 4 mg Q6H PRN Administration Nausea/Vomiting Pantoprazole Sodium 20 mg 04/19/17 18:00 04/21/17 17:46 Protonix Inj IVP 20 mg BID AGUSTIN Administration Saccharomyces Boulardii 250 mg 04/08/17 18:00 04/21/17 17:46 Florastor PO 250 mg BID AGUSTIN Administration Thiamine HCl 100 mg 04/08/17 12:30 04/21/17 13:07 Vitamin B1 Tab PO 100 mg DAILY AGUSTIN Administration - Patient Studies Lab Studies: Microbiology Studies 04/18/17 22:15 Blood Culture - Preliminary Blood-Venous NO GROWTH AFTER 3 DAYS 04/18/17 21:45 Blood Culture - Preliminary Blood-Venous NO GROWTH AFTER 3 DAYS 04/18/17 21:42 Gram Stain - Final Abdomen Wound Culture - Preliminary No growth. Lab Studies 04/22/17 04/22/17 04/22/17 Range/Units 06:11 06:11 06:11 WBC 17.5 H (4.8-10.8) K/uL RBC 3.09 L (3.80-5.20) Mil/uL Hgb 8.7 L (11.0-16.0) g/dL Hct 26.3 L (34.0-47.0) % MCV 85.0 (81.0-99.0) fL MCH 28.2 (27.0-31.0) pg MCHC 33.1 (33.0-37.0) g/dL RDW 15.4 H (11.5-14.5) % Plt Count 413 H (130-400) K/uL MPV 8.5 (7.2-11.7) fL Neut % (Auto) 72.8 (50.0-75.0) % Lymph % (Auto) 10.4 L (20.0-40.0) % Charles % (Auto) 10.6 H (0.0-10.0) % Eos % (Auto) 5.9 H (0.0-4.0) % Baso % (Auto) 0.3 (0.0-2.0) % Neut # 12.8 H (1.8-7.0) K/uL Lymph # 1.8 (1.0-4.3) K/uL Charles # 1.9 H (0.0-0.8) K/uL Eos # 1.0 H (0.0-0.7) K/uL Baso # 0.0 (0.0-0.2) K/uL PT 13.5 H (9.7-12.2) SECONDS INR 1.2 APTT 30 (21-34) SECONDS Puncture Site pCO2 (35-45) mm/Hg pO2 (80-100) mm/Hg HCO3 (21-28) mmol/L ABG pH (7.35-7.45) ABG Total CO2 (22-28) mmol/L ABG O2 Saturation (95-98) % ABG Base Excess (-2.0-3.0) mmol/L ABG Hemoglobin (11.7-17.4) g/dL ABG Carboxyhemoglobin (0.5-1.5) % POC ABG HHb (Measured) (0.0-5.0) % ABG Methemoglobin (0.0-3.0) % Daniel Test A-a O2 Difference mm/Hg Respiratory Index Hgb O2 Saturation (95.0-98.0) % Vent Mode Mechanical Rate FiO2 % Tidal Volume PEEP Sodium 131 L (132-148) mmol/L Potassium 3.3 L (3.6-5.2) mmol/L Chloride 97 L (98-107) mmol/L Carbon Dioxide 27 (22-30) mmol/L Anion Gap 11 (10-20) BUN 22 H (7-17) mg/dL Creatinine 2.8 H (0.7-1.2) mg/dL Est GFR ( Amer) 23 Est GFR (Non-Af Amer) 19 POC Glucose (mg/dL) (65-110) mg/dL Random Glucose 86 (65-105) mg/dL Calcium 7.4 L (8.6-10.4) mg/dl Phosphorus 2.9 (2.5-4.5) mg/dL Magnesium 1.7 (1.6-2.3) mg/dL Total Bilirubin 1.0 (0.2-1.3) mg/dL AST 23 (14-36) U/L ALT 17 (9-52) U/L Alkaline Phosphatase 138 H D (38-126) U/L Total Protein 5.4 L (6.3-8.3) g/dL Albumin 2.6 L (3.5-5.0) g/dL Globulin 2.8 (2.2-3.9) gm/dL Albumin/Globulin Ratio 0.9 L (1.0-2.1) Prolactin (3.0-18.9) ng/mL Blood Type Antibody Screen Crossmatch 04/22/17 04/22/17 04/21/17 Range/Units 05:26 05:06 23:50 WBC (4.8-10.8) K/uL RBC (3.80-5.20) Mil/uL Hgb (11.0-16.0) g/dL Hct (34.0-47.0) % MCV (81.0-99.0) fL MCH (27.0-31.0) pg MCHC (33.0-37.0) g/dL RDW (11.5-14.5) % Plt Count (130-400) K/uL MPV (7.2-11.7) fL Neut % (Auto) (50.0-75.0) % Lymph % (Auto) (20.0-40.0) % Charles % (Auto) (0.0-10.0) % Eos % (Auto) (0.0-4.0) % Baso % (Auto) (0.0-2.0) % Neut # (1.8-7.0) K/uL Lymph # (1.0-4.3) K/uL Charles # (0.0-0.8) K/uL Eos # (0.0-0.7) K/uL Baso # (0.0-0.2) K/uL PT (9.7-12.2) SECONDS INR APTT (21-34) SECONDS Puncture Site Rr pCO2 49 H (35-45) mm/Hg pO2 103 H (80-100) mm/Hg HCO3 26.2 (21-28) mmol/L ABG pH 7.36 (7.35-7.45) ABG Total CO2 29.2 H (22-28) mmol/L ABG O2 Saturation 98.6 H (95-98) % ABG Base Excess 1.7 (-2.0-3.0) mmol/L ABG Hemoglobin 10.5 L (11.7-17.4) g/dL ABG Carboxyhemoglobin 1.5 (0.5-1.5) % POC ABG HHb (Measured) 1.4 (0.0-5.0) % ABG Methemoglobin 1.5 (0.0-3.0) % Daniel Test Pos A-a O2 Difference 85.0 mm/Hg Respiratory Index 0.8 Hgb O2 Saturation 95.6 (95.0-98.0) % Vent Mode Prvc Mechanical Rate 14 FiO2 35.0 % Tidal Volume 450 PEEP 5 Sodium (132-148) mmol/L Potassium (3.6-5.2) mmol/L Chloride (98-107) mmol/L Carbon Dioxide (22-30) mmol/L Anion Gap (10-20) BUN (7-17) mg/dL Creatinine (0.7-1.2) mg/dL Est GFR ( Amer) Est GFR (Non-Af Amer) POC Glucose (mg/dL) 92 89 (65-110) mg/dL Random Glucose (65-105) mg/dL Calcium (8.6-10.4) mg/dl Phosphorus (2.5-4.5) mg/dL Magnesium (1.6-2.3) mg/dL Total Bilirubin (0.2-1.3) mg/dL AST (14-36) U/L ALT (9-52) U/L Alkaline Phosphatase (38-126) U/L Total Protein (6.3-8.3) g/dL Albumin (3.5-5.0) g/dL Globulin (2.2-3.9) gm/dL Albumin/Globulin Ratio (1.0-2.1) Prolactin (3.0-18.9) ng/mL Blood Type Antibody Screen Crossmatch 04/21/17 04/21/17 04/21/17 Range/Units 17:44 11:49 09:45 WBC (4.8-10.8) K/uL RBC (3.80-5.20) Mil/uL Hgb (11.0-16.0) g/dL Hct (34.0-47.0) % MCV (81.0-99.0) fL MCH (27.0-31.0) pg MCHC (33.0-37.0) g/dL RDW (11.5-14.5) % Plt Count (130-400) K/uL MPV (7.2-11.7) fL Neut % (Auto) (50.0-75.0) % Lymph % (Auto) (20.0-40.0) % Charles % (Auto) (0.0-10.0) % Eos % (Auto) (0.0-4.0) % Baso % (Auto) (0.0-2.0) % Neut # (1.8-7.0) K/uL Lymph # (1.0-4.3) K/uL Charles # (0.0-0.8) K/uL Eos # (0.0-0.7) K/uL Baso # (0.0-0.2) K/uL PT (9.7-12.2) SECONDS INR APTT (21-34) SECONDS Puncture Site pCO2 (35-45) mm/Hg pO2 (80-100) mm/Hg HCO3 (21-28) mmol/L ABG pH (7.35-7.45) ABG Total CO2 (22-28) mmol/L ABG O2 Saturation (95-98) % ABG Base Excess (-2.0-3.0) mmol/L ABG Hemoglobin (11.7-17.4) g/dL ABG Carboxyhemoglobin (0.5-1.5) % POC ABG HHb (Measured) (0.0-5.0) % ABG Methemoglobin (0.0-3.0) % Daniel Test A-a O2 Difference mm/Hg Respiratory Index Hgb O2 Saturation (95.0-98.0) % Vent Mode Mechanical Rate FiO2 % Tidal Volume PEEP Sodium (132-148) mmol/L Potassium (3.6-5.2) mmol/L Chloride (98-107) mmol/L Carbon Dioxide (22-30) mmol/L Anion Gap (10-20) BUN (7-17) mg/dL Creatinine (0.7-1.2) mg/dL Est GFR ( Amer) Est GFR (Non-Af Amer) POC Glucose (mg/dL) 74 108 (65-110) mg/dL Random Glucose (65-105) mg/dL Calcium (8.6-10.4) mg/dl Phosphorus (2.5-4.5) mg/dL Magnesium (1.6-2.3) mg/dL Total Bilirubin (0.2-1.3) mg/dL AST (14-36) U/L ALT (9-52) U/L Alkaline Phosphatase (38-126) U/L Total Protein (6.3-8.3) g/dL Albumin (3.5-5.0) g/dL Globulin (2.2-3.9) gm/dL Albumin/Globulin Ratio (1.0-2.1) Prolactin (3.0-18.9) ng/mL Blood Type O POSITIVE Antibody Screen Negative Crossmatch See Detail 04/21/17 Range/Units 06:36 WBC (4.8-10.8) K/uL RBC (3.80-5.20) Mil/uL Hgb (11.0-16.0) g/dL Hct (34.0-47.0) % MCV (81.0-99.0) fL MCH (27.0-31.0) pg MCHC (33.0-37.0) g/dL RDW (11.5-14.5) % Plt Count (130-400) K/uL MPV (7.2-11.7) fL Neut % (Auto) (50.0-75.0) % Lymph % (Auto) (20.0-40.0) % Charles % (Auto) (0.0-10.0) % Eos % (Auto) (0.0-4.0) % Baso % (Auto) (0.0-2.0) % Neut # (1.8-7.0) K/uL Lymph # (1.0-4.3) K/uL Charles # (0.0-0.8) K/uL Eos # (0.0-0.7) K/uL Baso # (0.0-0.2) K/uL PT (9.7-12.2) SECONDS INR APTT (21-34) SECONDS Puncture Site pCO2 (35-45) mm/Hg pO2 (80-100) mm/Hg HCO3 (21-28) mmol/L ABG pH (7.35-7.45) ABG Total CO2 (22-28) mmol/L ABG O2 Saturation (95-98) % ABG Base Excess (-2.0-3.0) mmol/L ABG Hemoglobin (11.7-17.4) g/dL ABG Carboxyhemoglobin (0.5-1.5) % POC ABG HHb (Measured) (0.0-5.0) % ABG Methemoglobin (0.0-3.0) % Daniel Test A-a O2 Difference mm/Hg Respiratory Index Hgb O2 Saturation (95.0-98.0) % Vent Mode Mechanical Rate FiO2 % Tidal Volume PEEP Sodium (132-148) mmol/L Potassium (3.6-5.2) mmol/L Chloride (98-107) mmol/L Carbon Dioxide (22-30) mmol/L Anion Gap (10-20) BUN (7-17) mg/dL Creatinine (0.7-1.2) mg/dL Est GFR ( Amer) Est GFR (Non-Af Amer) POC Glucose (mg/dL) (65-110) mg/dL Random Glucose (65-105) mg/dL Calcium (8.6-10.4) mg/dl Phosphorus (2.5-4.5) mg/dL Magnesium (1.6-2.3) mg/dL Total Bilirubin (0.2-1.3) mg/dL AST (14-36) U/L ALT (9-52) U/L Alkaline Phosphatase (38-126) U/L Total Protein (6.3-8.3) g/dL Albumin (3.5-5.0) g/dL Globulin (2.2-3.9) gm/dL Albumin/Globulin Ratio (1.0-2.1) Prolactin 139.5 H (3.0-18.9) ng/mL Blood Type Antibody Screen Crossmatch Laboratory Results - last 24 hr 04/21/17 04/21/17 04/21/17 06:36 09:45 11:49 WBC RBC Hgb Hct MCV MCH MCHC RDW Plt Count MPV Neut % (Auto) Lymph % (Auto) Charles % (Auto) Eos % (Auto) Baso % (Auto) Neut # Lymph # Charles # Eos # Baso # PT INR APTT Puncture Site pCO2 pO2 HCO3 ABG pH ABG Total CO2 ABG O2 Saturation ABG Base Excess ABG Hemoglobin ABG Carboxyhemoglobin POC ABG HHb (Measured) ABG Methemoglobin Daniel Test A-a O2 Difference Respiratory Index Hgb O2 Saturation Vent Mode Mechanical Rate FiO2 Tidal Volume PEEP Sodium Potassium Chloride Carbon Dioxide Anion Gap BUN Creatinine Est GFR ( Amer) Est GFR (Non-Af Amer) POC Glucose (mg/dL) 108 Random Glucose Calcium Phosphorus Magnesium Total Bilirubin AST ALT Alkaline Phosphatase Total Protein Albumin Globulin Albumin/Globulin Ratio Prolactin 139.5 H Blood Type O POSITIVE Antibody Screen Negative Crossmatch See Detail 04/21/17 04/21/17 04/22/17 17:44 23:50 05:06 WBC RBC Hgb Hct MCV MCH MCHC RDW Plt Count MPV Neut % (Auto) Lymph % (Auto) Charles % (Auto) Eos % (Auto) Baso % (Auto) Neut # Lymph # Charles # Eos # Baso # PT INR APTT Puncture Site Rr pCO2 49 H pO2 103 H HCO3 26.2 ABG pH 7.36 ABG Total CO2 29.2 H ABG O2 Saturation 98.6 H ABG Base Excess 1.7 ABG Hemoglobin 10.5 L ABG Carboxyhemoglobin 1.5 POC ABG HHb (Measured) 1.4 ABG Methemoglobin 1.5 Daniel Test Pos A-a O2 Difference 85.0 Respiratory Index 0.8 Hgb O2 Saturation 95.6 Vent Mode Prvc Mechanical Rate 14 FiO2 35.0 Tidal Volume 450 PEEP 5 Sodium Potassium Chloride Carbon Dioxide Anion Gap BUN Creatinine Est GFR ( Amer) Est GFR (Non-Af Amer) POC Glucose (mg/dL) 74 89 Random Glucose Calcium Phosphorus Magnesium Total Bilirubin AST ALT Alkaline Phosphatase Total Protein Albumin Globulin Albumin/Globulin Ratio Prolactin Blood Type Antibody Screen Crossmatch 04/22/17 04/22/17 04/22/17 05:26 06:11 06:11 WBC 17.5 H RBC 3.09 L Hgb 8.7 L Hct 26.3 L MCV 85.0 MCH 28.2 MCHC 33.1 RDW 15.4 H Plt Count 413 H MPV 8.5 Neut % (Auto) 72.8 Lymph % (Auto) 10.4 L Charles % (Auto) 10.6 H Eos % (Auto) 5.9 H Baso % (Auto) 0.3 Neut # 12.8 H Lymph # 1.8 Charles # 1.9 H Eos # 1.0 H Baso # 0.0 PT 13.5 H INR 1.2 APTT 30 Puncture Site pCO2 pO2 HCO3 ABG pH ABG Total CO2 ABG O2 Saturation ABG Base Excess ABG Hemoglobin ABG Carboxyhemoglobin POC ABG HHb (Measured) ABG Methemoglobin Daniel Test A-a O2 Difference Respiratory Index Hgb O2 Saturation Vent Mode Mechanical Rate FiO2 Tidal Volume PEEP Sodium Potassium Chloride Carbon Dioxide Anion Gap BUN Creatinine Est GFR ( Amer) Est GFR (Non-Af Amer) POC Glucose (mg/dL) 92 Random Glucose Calcium Phosphorus Magnesium Total Bilirubin AST ALT Alkaline Phosphatase Total Protein Albumin Globulin Albumin/Globulin Ratio Prolactin Blood Type Antibody Screen Crossmatch 04/22/17 06:11 WBC RBC Hgb Hct MCV MCH MCHC RDW Plt Count MPV Neut % (Auto) Lymph % (Auto) Charles % (Auto) Eos % (Auto) Baso % (Auto) Neut # Lymph # Charles # Eos # Baso # PT INR APTT Puncture Site pCO2 pO2 HCO3 ABG pH ABG Total CO2 ABG O2 Saturation ABG Base Excess ABG Hemoglobin ABG Carboxyhemoglobin POC ABG HHb (Measured) ABG Methemoglobin Daniel Test A-a O2 Difference Respiratory Index Hgb O2 Saturation Vent Mode Mechanical Rate FiO2 Tidal Volume PEEP Sodium 131 L Potassium 3.3 L Chloride 97 L Carbon Dioxide 27 Anion Gap 11 BUN 22 H Creatinine 2.8 H Est GFR ( Amer) 23 Est GFR (Non-Af Amer) 19 POC Glucose (mg/dL) Random Glucose 86 Calcium 7.4 L Phosphorus 2.9 Magnesium 1.7 Total Bilirubin 1.0 AST 23 ALT 17 Alkaline Phosphatase 138 H D Total Protein 5.4 L Albumin 2.6 L Globulin 2.8 Albumin/Globulin Ratio 0.9 L Prolactin Blood Type Antibody Screen Crossmatch Fingerstick Blood Sugar Results: 92 Critical Care Progress Note - Nutrition Nutrition: Nutrition Category Date Time Status NPO Diet [DIET] Diets 04/08/17 Dinner Active Assessment/Plan - Assessment and Plan (Free Text) Assessment: 36F admitted with diarrhea,tachycardia,elevated WBC count ,lipase and lactic acid, 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 s/p boby en Y bypass, gastrojejunostomy with Tricia ileostomy placement. POD # 4 (04/18/17) Neuro: hx of Schizophrenia, patient has mental retardation and can speak some words based on observation seizure-like episodes x 2 04/20 04/20 Dr. Bedoya consulted for seizures 04/07 Dr. Bedoya consulted Psych Consult: Dr. Mccloud Midazolam 0.02mg/kg/hr Haloperidol 1mg IVP BID PRN Ativan 0.5mg IVP Q3H PRN Pain: Fentanyl 2mcg/kg/hr Nausea: Zofran 4mg Q6H PRN Thiamine 100mg PO QD Ascorbic Acid 500mg PO QD Psych: Psych Consult Dr. Mccloud: f/u 03/30 EKG to evaluate QTc Quetiapine (Seroquel) 200mg POBID, held d/t NGT on IWS, held awaiting Dr. Mccloud Recommendations Escitalopram (Lexapro) 10mg PO QD, held d/t NGT on IWS, held awaiting Dr. Mccloud Recommendations Cardio: Tachycardia 03/27 EKG Sinus tachycardia 138 bpm 03/30 EKG QTc 434, Sinus tachycardia at 153 bpm Diltiazem 125mg Q24hr @ 5mg/hr 04/08 Pulm: Aspiration pneumonia s/p EGD with intubation then extubation 03/27 AB.22, lactate 9.7 04/08 AB.50, CO2 24, O2 148, HCO3 22.9, lactate 1.0 03/27 CXR in infiltrates, no active pulmonary disease 03/30 CXR: poor inspiratory effort, areas suggestive of aspiration pneumonia 04/02: CT abdomen/pelvis/chest: pleural effusions, bilateral perihilar consolidations possibly due to multifocal pneumonia vs. atelectasis 04/04: CXR: Left lower lobe atelectasis/pneumonia and small left pleural effusion. Stable position of nasogastric tube and Dialysis catheter with one port Duoneb 04/17 CXR: mild vascular congestion 04/18 CXR: vascular congestion, poor inspiratory effort 04/19 CXR: vascular congestion, poor inspiratory effort Albuterol/Ipratropium 3cc INH RQ6H Endo: 03/28 Hemoglobin A1c 5.3 GI: Currently on PPN 03/28 Lipase 8456 03/29 Lipase 322 03/30 Lipase 64 03/30 GOBT positive 03/31 Pathology for Antrum biopsy from 03/29 EGD current biopsy negative for H pylori 04/01 f/u Dr. Harmon for repeat EGD., NGT 800 per nutrition consult: during dialysis Nepro goal rate 45cc/hr for 1080cc, 1944kcal, 87gm protein, and 785 cc free H2O Reglan 10 mg IVP q4h PRN 03/27 21:42 CT abdomen/pelvis with IV contrast: gastric distention 32cm and distention of the first and third and second portion of duodenum. Transition and complete decompression of third portion of duodenum. pancreas unremarkable, spleen unremarkable, partially contracted gallbladder. duodenal obstruction v delayed emptying v gastroparesis. Fluid distention of distal esophagus 3.3cm representing gastric emptying v gastroesophageal reflux. 03/27 CT abdomen/pelvis with IV contrast: significantly dilated stomach with retained food and fluid. significantly diminished prior to earlier CT 03/28. No free intraperitoneal gas identified. contrast noted in Gallbladder. 03/28 CT Chest/Abdomen/Pelvis: Left greater than right pleural effusion, bilateral perihilar consolidation. right more than left upper lobes and left more than right lower lobes. lingular consolidation representing multifocal pneumonia v. atelectasis versus mucous lugging and/or aspiration. interval worsening compared to prior exam 04/02 CT chest/abdomen/pelvis shows gastric distention 27cm, possible gastric pneumatosis, NGT at fundus with contrast fluid and gas level peripancreatic infiltration. gastric distension measuring 27 cm with possible gastric pneumatosis. intraperitoneal pelvic fluid with prominent surrounding peritoneal lining. Loculated ascites with peritoneal enhancement above spleen in retrogastric region. Lipase 320. 04/08 CT Chest/Abdomen/Pelvis: resolving acute pancreatitis, no residual peripancreatic fluid. 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 Distention of stomach due to gastric ileus. Ascites and loculated fluid posterior to the gastric fundus and cephalad to the spleen. Focal enteritis of proximal jejunum with mural thickening. Small left pleural effusion with left lower lobe compressive atelectasis. 04/14/17 CT Angio Abdomen/Pelvis:gastric distentions 27cm. gastric pneumatosis on image 66 through 73 series 6. NGT in fundus of stomach with contrast fluid and gas level. peripancreatic infiltration. left more than right large pleural effusions. bilateral perihilar consolidation. right more than left upper lobes and left more than right lower lobes lingular consolidation. Significant interval worsening when compared to prior examination 03/28/17. moderate intraperitoneal pelvic fluid with prominent surrounding peritoneal lining. Loculated peritoneal abscess secondary to contained gastric perforation 03/[address] connected to suction. 03/28 NGT OP since insertion: 2600cc 03/29 2350 03/30 NGT 1160 03/31 NGT 630 04/01 NGT 800 04/02 NGT 100 04/04 550, NGT removed by patient, Flexiseal removed by patient f/u Strict I/Os 04/10 NGT 3300 04/11 NGT 1200 04/12 NGT 700, with about 100cc of bright red sanguinous blood, with bilious component. 04/12 NGT off suction, clamped, patient continues to have red output to gravity. General Surgery Consult: Dr. Woodruff 03/[address] Harmon to have EGD today. 03/[address] Harmon, place patient on Reglan to help with motility. 03/30 Abdominal xray/obstructive series: minimal distention of stomach compared to previous imaging studies 03/31 Pathology for Antrum biopsy from 03/29 EGD current biopsy negative for H pylori 04/01 f/u Dr. Harmon for repeat EGD. 04/13 Dr. Lau repeat EGD: diffuse ulceration, large fibrous clot, repeat EGD scheduled 04/14 for re-evaluation, CT Angio ordered to evaluate for ischemia 04/13 NGT 280 cc 04/14 NGT 140cc over 24 hours 04/14 repeat EGD cancelled. continued supportive care by GI today 04/14 NGT 200cc 04/15 repeat EGD and PEJ tube insertion, could not be done due to inability to find a stable place for PEJ 04/18 Boby en Y bypass, gastrojejunostomy, Tricia ileostomy, drain insertion in LLQ by Dr. Mendez, no evidence of SMA compression of duodenum 04/19 LLQ drain 105 cc since insertion 04/19 RLQ ileostomy bag 320 cc since insertion Zofran 4mg IVP q6h PRN Reglan 10 mg IVP q4h PRN Renal: 03/27 UA: proteinuria f/u Strict I/Os, hourly UOP 40-60 24 Hour urine output 988 03/31 Potassium Phosphorus 15mmole @63cc/hr Patient is on dialysis and making urine. will monitor hourly output 04/20 BUN/Cr 30/3.6 04/21 BUN/Cr 37/3.9 04/22 BUN/Cr 22/2.8 : 03/27 UA: hazy, specific gravity >1.060, 3+ urine protein, Urine bacteria, Urine Yeast Ceftriaxone 1gm IVPB QD, discontinued 03/30 Urine Cx negative 04/08 UA: [place], UA pH 5.0, trace ketones, 1+ leukocyte esterase, specific gravity 1.030 04/08 urine random total protein 41.0 Urine random chloride 17 Urine random sodium 7 Heme: GI bleed H/H: 03/27 14.6/44.7 03/28 12.9/38.5 03/28 FOBT positive 03/29 11.2/33.0 03/30 GOBT positive 03/30 9.5/27.7 03/31 9.4/27.5 04/01 8.9/25.8 04/02 9.1/26.7 04/04 9.9/28.8 04/05 9.4/28.4 04/09/1704/10 9.6/29.9 04/11 7.8/22.6 04/12 7.0/20.4 04/13 4.1/11.1 04/14 6.8/19.9 04/15 10.8/30.9 04/16 10.5/30.7 04/17 9.1/26.4 04/18 06:44 9.0/26.7 04/18 16:17 10.0, post Boby en y bypass, gastrojejunostomy, Tricia Ileostomy 04/19 9.0/26.7 04/20 8.7/25.8 04/21 7.0/21.7 04/22 8.7/26.3 MSK: Patient can walk per sister, but is dizzy so hasn't walked PT/OT eval ID: Sepsis Code sepsis 03/28 02:20, 03/28 lactate 9.7, 03/28 lactate 01:05 9.2, 03/28 lactate 06:15 1.3 Lactate is downtrending, normal Leukocytosis, downtrending WBC 04/21 13.2 04/20 15.7 04/20 14.4 04/21 13.2 04/22 17.5 04/20 procalcitonin 2.07 Code sepsis 03/28 02:20 03/30 blood Culture x 2, negative 03/30 MRSA screen negative 03/30 Urine Cx negative 04/02 Blood culture x2 negative Code sepsis called again today 04/08. Patient was febrile (102 rectally and tachycardic ~140s) BP was 100/70. Tovar inserted to monitor urine output (nurse to clean TID with betadine) WBC 36.1 elevating from 20s. 4 bands, platelets 707 diflucan ordered 04/20 Prophylaxis: GI: Protonix Q12H Zofran 4mg IVP Q6H PRN Nausea Tylenol 325mg PA Q4H PRN Fluids: LR @100cc/hr Diet: NPO 04/04 NGT removed by patient, Flexiseal removed by patient, Left PICC removed by patient. 04/05 Patient downgraded to Regular Bed 04/11 Patient has a femoral dialysis catheter 04/12 GI consulted for GI bleed, repeat EGD 04/13 patient to have dialysis today with 2 u PRBC transfusion. CTA of abdomen and pelvis today d/t possible ischemic changes due to diffuse ulcerations seen on EGD 04/14 Patient had 3 uPRBC yesterday (1 u after dialysis) Patient's hgb is 6.8 today. Will transfuse 1 u PRBC during extra dialysis session today. repeat EGD today 04/15 04/16 04/17 Patient underwent dialysis 04/18 Boby en Y ex lap and Tricia ileostomy placement. 04/19 Tube feeds 04/20 elevated temperature, yeast in urine, monitor, seizures x 2 episode 04/21 Dr. Bedoya on board, consulted for seizures. EEG ordered. 04/22 EEG yesterday cancelled by Dr. Bedoya, getting permacath today discussed with Dr. Najma Smith DO PGY1 - Date & Time Date: 04/22/17 Time: 09:46 <Najma Granger - Last Filed: 04/22/17 12:40> CCU Objective - Vital Signs / Intake & Output Vital Signs (Last 4 hours): Vital Signs Pulse Resp BP Pulse Ox 04/22/17 12:23 106 H 14 95/55 L 100 04/22/17 11:24 119 H 15 100/58 L 95 04/22/17 10:23 118 H 14 94/55 L 99 04/22/17 09:53 97 H 14 84/48 L 100 04/22/17 08:53 96 H 14 96/57 L 100 Intake and Output (Last 8hrs): Intake & Output 04/21/17 04/22/17 04/22/17 22:59 06:59 14:59 Intake Total 950.8 1158.1 739.1 Output Total 648 730 546 Balance 302.8 428.1 193.1 Weight 151 lb 14.376 oz Intake: IV 300 348.9 20 Intake, IV Amount 380.8 729.2 709.1 Left Distal Port Wrist 44.8 Left Wrist 281.2 Right Antecubital 66.6 24.1 Right Femoral 310.8 185 Right Medial Port Femoral 350 200 Rt Femoral 54.8 1.8 300 Tube Feeding 240 60 Other 30 20 10 Output: Gastric Amount 200 300 Right Nares 200 300 Drainage 68 135 180 Left Lower Abdomen 60 135 180 Right Lower Abdomen 8 Urine 380 295 366 Urethral (Tovar) 380 295 366 - Medications Active Medications: Active Medications Generic Name Dose Route Start Last Admin Trade Name Freq PRN Reason Stop Dose Admin Acetaminophen 650 mg 04/20/17 09:08 04/21/17 21:41 Tylenol 650mg/20.3ml Solution Ud PO 650 mg Q6 PRN Administration Temperature Acetaminophen 650 mg 04/20/17 10:17 Tylenol 650 Mg Supp PA Q4 PRN Fever >100.4 F Albuterol/Ipratropium 3 ml 04/18/17 14:00 04/22/17 07:29 Duoneb 3 Mg/0.5 Mg (3 Ml) Ud INH 3 ml RQ6 AGUSTIN Administration Ascorbic Acid 500 mg 04/08/17 12:30 04/22/17 09:55 Vitamin C 500 Mg Tab PO Not Given DAILY AGUSTIN Haloperidol Lactate 1 mg 03/29/17 18:47 04/17/17 00:00 Haldol IVP 1 mg BID PRN Administration Agitation Hydromorphone HCl 1 mg 04/17/17 07:16 04/18/17 14:50 Dilaudid IVP 1 mg Q3 PRN Administration Pain, severe (8-10) Fluconazole 100 mls @ 100 mls/hr 04/21/17 10:00 04/22/17 10:05 Diflucan Iv 200 Mg/100 Ml Ns IVPB 100 mls/hr DAILY AGUSTIN Administration Vasopressin 40 units/ Sodium 40 mls @ 0.6 mls/hr 04/21/17 09:30 04/22/17 00: 39 Chloride IV 0 units/min .Q24H PRN 0 mls/hr TITRATE PER PROTOCOL Titration Protocol 0.01 UNITS/MIN Dexmedetomidine HCl 400 mcg/ 100 mls @ 3.4 mls/hr 04/21/17 16:30 04/22/17 09: 42 Sodium Chloride IV 0.2 mcg/kg/hr TITR PRN 3.4 mls/hr Agitation Titration Protocol 0.2 MCG/KG/HR Fentanyl Citrate 2,500 mcg/ 250 mls @ 13.56 mls/hr 04/21/17 17:00 04/22/17 06 :17 Sodium Chloride IV 5 mcg/kg/hr .[id number] PRN 33.9 mls/hr TITRATE PER MD ORDER Administration Protocol 2 MCG/KG/HR Cefepime HCl 1 gm in 50 mls @ 100 mls/hr 04/21/17 19:30 04/21/17 20:58 Maxipime Iv 1 Gm Premix IVPB 100 mls/hr Q24H AGUSTIN Administration Vancomycin HCl 500 mg/ Sodium 100 mls @ 100 mls/hr 04/22/17 09:00 04/22/17 09 :54 Chloride IVPB 100 mls/hr MWF AGUSTIN Administration Dextrose/Sodium Chloride 1,000 mls @ 50 mls/hr 04/22/17 00:15 04/22/17 00:17 Dextrose 5%/0.45% Ns 1000 Ml IV 50 mls/hr .Q20H AGUSTIN Administration Lorazepam 0.5 mg 04/01/17 16:08 04/18/17 03:30 Ativan IVP 0.5 mg Q3H PRN Administration Anxiety Lorazepam 2 mg 04/20/17 18:18 04/21/17 10:35 Ativan IVP 2 mg Q4H PRN Administration Seizure activity Ondansetron HCl 4 mg 03/27/17 23:45 04/11/17 21:39 Zofran Inj IVP 4 mg Q6H PRN Administration Nausea/Vomiting Pantoprazole Sodium 20 mg 04/19/17 18:00 04/22/17 09:53 Protonix Inj IVP 20 mg BID AGUSTIN Administration Saccharomyces Boulardii 250 mg 04/08/17 18:00 04/22/17 09:55 Florastor PO Not Given BID AGUSTIN Thiamine HCl 100 mg 04/08/17 12:30 04/22/17 09:55 Vitamin B1 Tab PO Not Given DAILY AGUSTIN - Patient Studies Lab Studies: Microbiology Studies 04/18/17 21:42 Gram Stain - Final Abdomen Wound Culture - Preliminary No growth. 04/18/17 22:15 Blood Culture - Preliminary Blood-Venous NO GROWTH AFTER 3 DAYS 04/18/17 21:45 Blood Culture - Preliminary Blood-Venous NO GROWTH AFTER 3 DAYS Lab Studies 04/22/17 04/22/17 04/22/17 Range/Units 11:21 06:11 06:11 WBC (4.8-10.8) K/uL RBC (3.80-5.20) Mil/uL Hgb (11.0-16.0) g/dL Hct (34.0-47.0) % MCV (81.0-99.0) fL MCH (27.0-31.0) pg MCHC (33.0-37.0) g/dL RDW (11.5-14.5) % Plt Count (130-400) K/uL MPV (7.2-11.7) fL Neut % (Auto) (50.0-75.0) % Lymph % (Auto) (20.0-40.0) % Charles % (Auto) (0.0-10.0) % Eos % (Auto) (0.0-4.0) % Baso % (Auto) (0.0-2.0) % Neut # (1.8-7.0) K/uL Lymph # (1.0-4.3) K/uL Charles # (0.0-0.8) K/uL Eos # (0.0-0.7) K/uL Baso # (0.0-0.2) K/uL PT 13.5 H (9.7-12.2) SECONDS INR 1.2 APTT 30 (21-34) SECONDS Puncture Site pCO2 (35-45) mm/Hg pO2 (80-100) mm/Hg HCO3 (21-28) mmol/L ABG pH (7.35-7.45) ABG Total CO2 (22-28) mmol/L ABG O2 Saturation (95-98) % ABG Base Excess (-2.0-3.0) mmol/L ABG Hemoglobin (11.7-17.4) g/dL ABG Carboxyhemoglobin (0.5-1.5) % POC ABG HHb (Measured) (0.0-5.0) % ABG Methemoglobin (0.0-3.0) % Daniel Test A-a O2 Difference mm/Hg Respiratory Index Hgb O2 Saturation (95.0-98.0) % Vent Mode Mechanical Rate FiO2 % Tidal Volume PEEP Sodium 131 L (132-148) mmol/L Potassium 3.3 L (3.6-5.2) mmol/L Chloride 97 L (98-107) mmol/L Carbon Dioxide 27 (22-30) mmol/L Anion Gap 11 (10-20) BUN 22 H (7-17) mg/dL Creatinine 2.8 H (0.7-1.2) mg/dL Est GFR ( Amer) 23 Est GFR (Non-Af Amer) 19 POC Glucose (mg/dL) 103 (65-110) mg/dL Random Glucose 86 (65-105) mg/dL Calcium 7.4 L (8.6-10.4) mg/dl Phosphorus 2.9 (2.5-4.5) mg/dL Magnesium 1.7 (1.6-2.3) mg/dL Total Bilirubin 1.0 (0.2-1.3) mg/dL AST 23 (14-36) U/L ALT 17 (9-52) U/L Alkaline Phosphatase 138 H D (38-126) U/L Total Protein 5.4 L (6.3-8.3) g/dL Albumin 2.6 L (3.5-5.0) g/dL Globulin 2.8 (2.2-3.9) gm/dL Albumin/Globulin Ratio 0.9 L (1.0-2.1) 04/22/17 04/22/17 04/22/17 Range/Units 06:11 05:26 05:06 WBC 17.5 H (4.8-10.8) K/uL RBC 3.09 L (3.80-5.20) Mil/uL Hgb 8.7 L (11.0-16.0) g/dL Hct 26.3 L (34.0-47.0) % MCV 85.0 (81.0-99.0) fL MCH 28.2 (27.0-31.0) pg MCHC 33.1 (33.0-37.0) g/dL RDW 15.4 H (11.5-14.5) % Plt Count 413 H (130-400) K/uL MPV 8.5 (7.2-11.7) fL Neut % (Auto) 72.8 (50.0-75.0) % Lymph % (Auto) 10.4 L (20.0-40.0) % Charles % (Auto) 10.6 H (0.0-10.0) % Eos % (Auto) 5.9 H (0.0-4.0) % Baso % (Auto) 0.3 (0.0-2.0) % Neut # 12.8 H (1.8-7.0) K/uL Lymph # 1.8 (1.0-4.3) K/uL Charles # 1.9 H (0.0-0.8) K/uL Eos # 1.0 H (0.0-0.7) K/uL Baso # 0.0 (0.0-0.2) K/uL PT (9.7-12.2) SECONDS INR APTT (21-34) SECONDS Puncture Site Rr pCO2 49 H (35-45) mm/Hg pO2 103 H (80-100) mm/Hg HCO3 26.2 (21-28) mmol/L ABG pH 7.36 (7.35-7.45) ABG Total CO2 29.2 H (22-28) mmol/L ABG O2 Saturation 98.6 H (95-98) % ABG Base Excess 1.7 (-2.0-3.0) mmol/L ABG Hemoglobin 10.5 L (11.7-17.4) g/dL ABG Carboxyhemoglobin 1.5 (0.5-1.5) % POC ABG HHb (Measured) 1.4 (0.0-5.0) % ABG Methemoglobin 1.5 (0.0-3.0) % Daniel Test Pos A-a O2 Difference 85.0 mm/Hg Respiratory Index 0.8 Hgb O2 Saturation 95.6 (95.0-98.0) % Vent Mode Prvc Mechanical Rate 14 FiO2 35.0 % Tidal Volume 450 PEEP 5 Sodium (132-148) mmol/L Potassium (3.6-5.2) mmol/L Chloride (98-107) mmol/L Carbon Dioxide (22-30) mmol/L Anion Gap (10-20) BUN (7-17) mg/dL Creatinine (0.7-1.2) mg/dL Est GFR ( Amer) Est GFR (Non-Af Amer) POC Glucose (mg/dL) 92 (65-110) mg/dL Random Glucose (65-105) mg/dL Calcium (8.6-10.4) mg/dl Phosphorus (2.5-4.5) mg/dL Magnesium (1.6-2.3) mg/dL Total Bilirubin (0.2-1.3) mg/dL AST (14-36) U/L ALT (9-52) U/L Alkaline Phosphatase (38-126) U/L Total Protein (6.3-8.3) g/dL Albumin (3.5-5.0) g/dL Globulin (2.2-3.9) gm/dL Albumin/Globulin Ratio (1.0-2.1) 04/21/17 04/21/17 Range/Units 23:50 17:44 WBC (4.8-10.8) K/uL RBC (3.80-5.20) Mil/uL Hgb (11.0-16.0) g/dL Hct (34.0-47.0) % MCV (81.0-99.0) fL MCH (27.0-31.0) pg MCHC (33.0-37.0) g/dL RDW (11.5-14.5) % Plt Count (130-400) K/uL MPV (7.2-11.7) fL Neut % (Auto) (50.0-75.0) % Lymph % (Auto) (20.0-40.0) % Charles % (Auto) (0.0-10.0) % Eos % (Auto) (0.0-4.0) % Baso % (Auto) (0.0-2.0) % Neut # (1.8-7.0) K/uL Lymph # (1.0-4.3) K/uL Charles # (0.0-0.8) K/uL Eos # (0.0-0.7) K/uL Baso # (0.0-0.2) K/uL PT (9.7-12.2) SECONDS INR APTT (21-34) SECONDS Puncture Site pCO2 (35-45) mm/Hg pO2 (80-100) mm/Hg HCO3 (21-28) mmol/L ABG pH (7.35-7.45) ABG Total CO2 (22-28) mmol/L ABG O2 Saturation (95-98) % ABG Base Excess (-2.0-3.0) mmol/L ABG Hemoglobin (11.7-17.4) g/dL ABG Carboxyhemoglobin (0.5-1.5) % POC ABG HHb (Measured) (0.0-5.0) % ABG Methemoglobin (0.0-3.0) % Daniel Test A-a O2 Difference mm/Hg Respiratory Index Hgb O2 Saturation (95.0-98.0) % Vent Mode Mechanical Rate FiO2 % Tidal Volume PEEP Sodium (132-148) mmol/L Potassium (3.6-5.2) mmol/L Chloride (98-107) mmol/L Carbon Dioxide (22-30) mmol/L Anion Gap (10-20) BUN (7-17) mg/dL Creatinine (0.7-1.2) mg/dL Est GFR ( Amer) Est GFR (Non-Af Amer) POC Glucose (mg/dL) 89 74 (65-110) mg/dL Random Glucose (65-105) mg/dL Calcium (8.6-10.4) mg/dl Phosphorus (2.5-4.5) mg/dL Magnesium (1.6-2.3) mg/dL Total Bilirubin (0.2-1.3) mg/dL AST (14-36) U/L ALT (9-52) U/L Alkaline Phosphatase (38-126) U/L Total Protein (6.3-8.3) g/dL Albumin (3.5-5.0) g/dL Globulin (2.2-3.9) gm/dL Albumin/Globulin Ratio (1.0-2.1) Laboratory Results - last 24 hr 04/21/17 04/21/17 04/22/17 17:44 23:50 05:06 WBC RBC Hgb Hct MCV MCH MCHC RDW Plt Count MPV Neut % (Auto) Lymph % (Auto) Charles % (Auto) Eos % (Auto) Baso % (Auto) Neut # Lymph # Charles # Eos # Baso # PT INR APTT Puncture Site Rr pCO2 49 H pO2 103 H HCO3 26.2 ABG pH 7.36 ABG Total CO2 29.2 H ABG O2 Saturation 98.6 H ABG Base Excess 1.7 ABG Hemoglobin 10.5 L ABG Carboxyhemoglobin 1.5 POC ABG HHb (Measured) 1.4 ABG Methemoglobin 1.5 Daniel Test Pos A-a O2 Difference 85.0 Respiratory Index 0.8 Hgb O2 Saturation 95.6 Vent Mode Prvc Mechanical Rate 14 FiO2 35.0 Tidal Volume 450 PEEP 5 Sodium Potassium Chloride Carbon Dioxide Anion Gap BUN Creatinine Est GFR ( Amer) Est GFR (Non-Af Amer) POC Glucose (mg/dL) 74 89 Random Glucose Calcium Phosphorus Magnesium Total Bilirubin AST ALT Alkaline Phosphatase Total Protein Albumin Globulin Albumin/Globulin Ratio 04/22/17 04/22/17 04/22/17 05:26 06:11 06:11 WBC 17.5 H RBC 3.09 L Hgb 8.7 L Hct 26.3 L MCV 85.0 MCH 28.2 MCHC 33.1 RDW 15.4 H Plt Count 413 H MPV 8.5 Neut % (Auto) 72.8 Lymph % (Auto) 10.4 L Charles % (Auto) 10.6 H Eos % (Auto) 5.9 H Baso % (Auto) 0.3 Neut # 12.8 H Lymph # 1.8 Charles # 1.9 H Eos # 1.0 H Baso # 0.0 PT 13.5 H INR 1.2 APTT 30 Puncture Site pCO2 pO2 HCO3 ABG pH ABG Total CO2 ABG O2 Saturation ABG Base Excess ABG Hemoglobin ABG Carboxyhemoglobin POC ABG HHb (Measured) ABG Methemoglobin Daniel Test A-a O2 Difference Respiratory Index Hgb O2 Saturation Vent Mode Mechanical Rate FiO2 Tidal Volume PEEP Sodium Potassium Chloride Carbon Dioxide Anion Gap BUN Creatinine Est GFR ( Amer) Est GFR (Non-Af Amer) POC Glucose (mg/dL) 92 Random Glucose Calcium Phosphorus Magnesium Total Bilirubin AST ALT Alkaline Phosphatase Total Protein Albumin Globulin Albumin/Globulin Ratio 04/22/17 04/22/17 06:11 11:21 WBC RBC Hgb Hct MCV MCH MCHC RDW Plt Count MPV Neut % (Auto) Lymph % (Auto) Charles % (Auto) Eos % (Auto) Baso % (Auto) Neut # Lymph # Charles # Eos # Baso # PT INR APTT Puncture Site pCO2 pO2 HCO3 ABG pH ABG Total CO2 ABG O2 Saturation ABG Base Excess ABG Hemoglobin ABG Carboxyhemoglobin POC ABG HHb (Measured) ABG Methemoglobin Daniel Test A-a O2 Difference Respiratory Index Hgb O2 Saturation Vent Mode Mechanical Rate FiO2 Tidal Volume PEEP Sodium 131 L Potassium 3.3 L Chloride 97 L Carbon Dioxide 27 Anion Gap 11 BUN 22 H Creatinine 2.8 H Est GFR ( Amer) 23 Est GFR (Non-Af Amer) 19 POC Glucose (mg/dL) 103 Random Glucose 86 Calcium 7.4 L Phosphorus 2.9 Magnesium 1.7 Total Bilirubin 1.0 AST 23 ALT 17 Alkaline Phosphatase 138 H D Total Protein 5.4 L Albumin 2.6 L Globulin 2.8 Albumin/Globulin Ratio 0.9 L Critical Care Progress Note - Nutrition Nutrition: Nutrition Category Date Time Status NPO Diet [DIET] Diets 04/08/17 Dinner Active Assessment/Plan - Assessment and Plan (Free Text) Plan: Patient seen and examined at bedside. Patient remains stable. -Febrile overnight: panculture, f/u sensitivitiy and continue ABX -Patient will benefit from ventilator until all anticiapted procedures completed -pending tunneled HD cath and central line today -continue all other management
[2017-04-22] MEDS: Saccharomyces Boulardi 250 mg Cap PO SCH ×2 (09:55→17:38)
[2017-04-22] MEDS: Fluconazole IV 200mg/100 ml NS 100 ML IVPB SCH (10:05)
--- NOTE | 2017-04-22 12:17 | CP.PCM.PN ---
Subjective - Date & Time of Evaluation Date of Evaluation: 04/22/17 Time of Evaluation: 12:15 - Subjective Subjective: s/p dialysis 04/21 UO now increased to 1300ml/ 24 hrs Remains sedated on vent Off pressors Only on JT feeds Same IV ABs K repleted Objective - Vital Signs/Intake and Output Vital Signs (last 24 hours): Temp Pulse Resp BP Pulse Ox 98.9 F 118 H 14 94/55 L 99 04/22/17 08:00 04/22/17 10:23 04/22/17 10:23 04/22/17 10:23 04/22/17 10:23 Intake and Output: 04/22/17 04/22/17 06:59 18:59 Intake Total 1710.9 739.1 Output Total 950 546 Balance 760.9 193.1 - Medications Medications: Current Medications Acetaminophen (Tylenol 650mg/20.3ml Solution Ud) 650 mg PO Q6 PRN PRN Reason: Temperature Last Admin: 04/21/17 21:41 Dose: 650 mg Acetaminophen (Tylenol 650 Mg Supp) 650 mg NC Q4 PRN PRN Reason: Fever >100.4 F Albuterol/Ipratropium (Duoneb 3 Mg/0.5 Mg (3 Ml) Ud) 3 ml INH RQ6 AGUSTIN Last Admin: 04/22/17 07:29 Dose: 3 ml Ascorbic Acid (Vitamin C 500 Mg Tab) 500 mg PO DAILY [facility] Last Admin: 04/22/17 09:55 Dose: Not Given Haloperidol Lactate (Haldol) 1 mg IVP BID PRN PRN Reason: Agitation Last Admin: 04/17/17 00:00 Dose: 1 mg Hydromorphone HCl (Dilaudid) 1 mg IVP Q3 PRN PRN Reason: Pain, severe (8-10) Last Admin: 04/18/17 14:50 Dose: 1 mg Fluconazole (Diflucan Iv 200 Mg/100 Ml Ns) 100 mls @ 100 mls/hr IVPB DAILY [facility] Last Admin: 04/22/17 10:05 Dose: 100 mls/hr Vasopressin 40 units/ Sodium (Chloride) 40 mls @ 0.6 mls/hr IV .Q24H PRN; Protocol; 0.01 UNITS/MIN PRN Reason: TITRATE PER PROTOCOL Last Titration: 04/22/17 00:39 Dose: 0 units/min, 0 mls/hr Dexmedetomidine HCl 400 mcg/ (Sodium Chloride) 100 mls @ 3.4 mls/hr IV TITR PRN ; Protocol; 0.2 MCG/KG/HR PRN Reason: Agitation Last Titration: 04/22/17 09:42 Dose: 0.2 mcg/kg/hr, 3.4 mls/hr Fentanyl Citrate 2,500 mcg/ (Sodium Chloride) 250 mls @ 13.56 mls/hr IV .[id number] PRN; Protocol; 2 MCG/KG/HR PRN Reason: TITRATE PER MD ORDER Last Admin: 04/22/17 06:17 Dose: 5 mcg/kg/hr, 33.9 mls/hr Cefepime HCl (Maxipime Iv 1 Gm Premix) 1 gm in 50 mls @ 100 mls/hr IVPB Q24H [facility] Last Admin: 04/21/17 20:58 Dose: 100 mls/hr Vancomycin HCl 500 mg/ Sodium (Chloride) 100 mls @ 100 mls/hr IVPB MWF [facility] Last Admin: 04/22/17 09:54 Dose: 100 mls/hr Dextrose/Sodium Chloride (Dextrose 5%/0.45% Ns 1000 Ml) 1,000 mls @ 50 mls/hr IV .Q20H [facility] Last Admin: 04/22/17 00:17 Dose: 50 mls/hr Lorazepam (Ativan) 0.5 mg IVP Q3H PRN PRN Reason: Anxiety Last Admin: 04/18/17 03:30 Dose: 0.5 mg Lorazepam (Ativan) 2 mg IVP Q4H PRN PRN Reason: Seizure activity Last Admin: 04/21/17 10:35 Dose: 2 mg Ondansetron HCl (Zofran Inj) 4 mg IVP Q6H PRN PRN Reason: Nausea/Vomiting Last Admin: 04/11/17 21:39 Dose: 4 mg Pantoprazole Sodium (Protonix Inj) 20 mg IVP BID [facility] Last Admin: 04/22/17 09:53 Dose: 20 mg Saccharomyces Boulardii (Florastor) 250 mg PO BID [facility] Last Admin: 04/22/17 09:55 Dose: Not Given Thiamine HCl (Vitamin B1 Tab) 100 mg PO DAILY [facility] Last Admin: 04/22/17 09:55 Dose: Not Given - Labs Labs: 04/22/17 06:11 04/22/17 06:11 PT 13.5 SECONDS (9.7-12.2) H 04/22/17 06:11 INR 1.2 04/22/17 06:11 APTT 30 SECONDS (21-34) 04/22/17 06:11 - Constitutional Appears: Non-toxic, Chronically Ill - Head Exam Head Exam: ATRAUMATIC, NORMAL INSPECTION - Eye Exam Eye Exam: EOMI, Normal appearance - Neck Exam Neck Exam: Normal Inspection. absent: Tenderness - Respiratory Exam Respiratory Exam: Decreased Breath Sounds, Respiratory Distress - Cardiovascular Exam Cardiovascular Exam: Tachycardia, +S1 - GI/Abdominal Exam GI & Abdominal Exam: Soft. absent: Tenderness - Extremities Exam Extremities Exam: Normal Inspection. absent: Tenderness - Neurological Exam Neurological Exam: Altered - Skin Skin Exam: Dry, Warm Assessment and Plan (1) JIMBO (acute kidney injury) Status: Acute (2) Acute pancreatitis Status: Acute (3) SBO (small bowel obstruction) Status: Acute (4) Schizophrenia Status: Acute - Assessment and Plan (Free Text) Plan: Replete K Hold dialysis for now and monitor UO, daily chemistries
[2017-04-22] MEDS ORDERED: levETIRAcetam 1,000 MG in Sodium Chloride 0.9% 100 ML IVPB SCH (13:30)
--- NOTE | 2017-04-22 14:43 | CP.PCM.CON ---
History of Present Illness - History of Present Illness History of Present Illness: Neurology consult note for Dr. 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 s/p boby en Y bypass, gastrojejunostomy with Tricia ileostomy placement on 04/18/17. Patient has a significant past medial history which includes Schizophrenia and Mental disability. Patient seen and examined at bedside. Per documentation 2 episodes of focal seizures witnessed by two ICU attending within one hour of each other. Patient was given Ativan. First witnessed seizure had scrunching of face, with fasciculation of the eyes with upward gaze when eyes opened. Bedside EEG was performed. Patient was intubated on Tuesday for a procedure and is currently intubated and sedated so ROS unattainable. On exam only the patients left arm was shaking. Review of Systems - Review of Systems Systems not reviewed;Unavailable: Acuity of Condition, Altered Mental Status, Intubated Past Patient History - Past Medical History & Family History Past Medical History?: Yes - Past Social History Smoking Status: Never Smoked Chewing Tobacco Use: No Cigar Use: No Home Situation {Lives}: With Family - CARDIAC Hx Cardiac Disorders: No - PULMONARY Hx Respiratory Disorders: No - NEUROLOGICAL Other/Comment: NEURO / DEVELOPMENTAL PROBLEM - HEENT Hx HEENT Problems: No - RENAL Hx Chronic Kidney Disease: No - ENDOCRINE/METABOLIC Hx Endocrine Disorders: No - HEMATOLOGICAL/ONCOLOGICAL Hx Blood Disorders: No - INTEGUMENTARY Hx Dermatological Problems: No - MUSCULOSKELETAL/RHEUMATOLOGICAL Hx Musculoskeletal Disorders: No Hx Falls: No - GASTROINTESTINAL Hx Gastrointestinal Disorders: No - GENITOURINARY/GYNECOLOGICAL Hx Genitourinary Disorders: No - PSYCHIATRIC Hx Depression: Yes Hx Schizophrenia: Yes Hx Substance Use: No - SURGICAL HISTORY Hx Surgeries: No - ANESTHESIA Hx Anesthesia: No Meds Allergies/Adverse Reactions: Allergies Allergy/AdvReac Type Severity Reaction Status Date / Time No Known Allergies Allergy Unverified 03/27/17 21:28 - Medications Medications: Current Medications Acetaminophen (Tylenol 650mg/20.3ml Solution Ud) 650 mg PO Q6 PRN PRN Reason: Temperature Last Admin: 04/21/17 21:41 Dose: 650 mg Acetaminophen (Tylenol 650 Mg Supp) [address] Q4 PRN PRN Reason: Fever >100.4 F Albuterol/Ipratropium (Duoneb 3 Mg/0.5 Mg (3 Ml) Ud) 3 ml INH RQ6 [facility] Last Admin: 04/22/17 13:05 Dose: 3 ml Ascorbic Acid (Vitamin C 500 Mg Tab) 500 mg PO DAILY [facility] Last Admin: 04/22/17 09:55 Dose: Not Given Haloperidol Lactate (Haldol) 1 mg IVP BID PRN PRN Reason: Agitation Last Admin: 04/17/17 00:00 Dose: 1 mg Hydromorphone HCl (Dilaudid) 1 mg IVP Q3 PRN PRN Reason: Pain, severe (8-10) Last Admin: 04/18/17 14:50 Dose: 1 mg Fluconazole (Diflucan Iv 200 Mg/100 Ml Ns) 100 mls @ 100 mls/hr IVPB DAILY [facility] Last Admin: 04/22/17 10:05 Dose: 100 mls/hr Vasopressin 40 units/ Sodium (Chloride) 40 mls @ 0.6 mls/hr IV .Q24H PRN; Protocol; 0.01 UNITS/MIN PRN Reason: TITRATE PER PROTOCOL Last Titration: 04/22/17 00:39 Dose: 0 units/min, 0 mls/hr Dexmedetomidine HCl 400 mcg/ (Sodium Chloride) 100 mls @ 3.4 mls/hr IV TITR PRN ; Protocol; 0.2 MCG/KG/HR PRN Reason: Agitation Last Titration: 04/22/17 09:42 Dose: 0.2 mcg/kg/hr, 3.4 mls/hr Fentanyl Citrate 2,500 mcg/ (Sodium Chloride) 250 mls @ 13.56 mls/hr IV .[id number] PRN; Protocol; 2 MCG/KG/HR PRN Reason: TITRATE PER MD ORDER Last Titration: 04/22/17 14:03 Dose: 4 mcg/kg/hr, 27.12 mls/hr Cefepime HCl (Maxipime Iv 1 Gm Premix) 1 gm in 50 mls @ 100 mls/hr IVPB Q24H [facility] Last Admin: 04/21/17 20:58 Dose: 100 mls/hr Vancomycin HCl 500 mg/ Sodium (Chloride) 100 mls @ 100 mls/hr IVPB MWF [facility] Last Admin: 04/22/17 09:54 Dose: 100 mls/hr Dextrose/Sodium Chloride (Dextrose 5%/0.45% Ns 1000 Ml) 1,000 mls @ 50 mls/hr IV .Q20H [facility] Last Admin: 04/22/17 00:17 Dose: 50 mls/hr Levetiracetam (Keppra) 250 mg PO BID [facility] Lorazepam (Ativan) 0.5 mg IVP Q3H PRN PRN Reason: Anxiety Last Admin: 04/18/17 03:30 Dose: 0.5 mg Lorazepam (Ativan) 2 mg IVP Q4H PRN PRN Reason: Seizure activity Last Admin: 04/21/17 10:35 Dose: 2 mg Ondansetron HCl (Zofran Inj) 4 mg IVP Q6H PRN PRN Reason: Nausea/Vomiting Last Admin: 04/11/17 21:39 Dose: 4 mg Pantoprazole Sodium (Protonix Inj) 20 mg IVP BID [facility] Last Admin: 04/22/17 09:53 Dose: 20 mg Saccharomyces Boulardii (Florastor) 250 mg PO BID [facility] Last Admin: 04/22/17 09:55 Dose: Not Given Thiamine HCl (Vitamin B1 Tab) 100 mg PO DAILY [facility] Last Admin: 04/22/17 09:55 Dose: Not Given Physical Exam - Constitutional Appears: No Acute Distress, Chronically Ill - Head Exam Head Exam: ATRAUMATIC, NORMAL INSPECTION - Eye Exam Eye Exam: EOMI, PERRL - ENT Exam ENT Exam: Mucous Membranes Moist - Extremities Exam Extremities exam: Positive for: pedal edema - Neurological Exam Additional comments: Patient is intubated and sedated. Unable to follow commands. Reflexes in tact. On exam patient left arm was shaking. Results - Vital Signs Recent Vital Signs: Last Vital Signs Temp 98.9 F 04/22/17 08:00 Pulse 106 H 04/22/17 12:23 Resp 14 04/22/17 12:23 BP 95/55 L 04/22/17 12:23 Pulse Ox 100 04/22/17 12:23 - Labs Result Diagrams: 04/22/17 06:11 04/22/17 06:11 Labs: Laboratory Results - last 24 hr 04/21/17 04/21/17 04/22/17 17:44 23:50 05:06 WBC RBC Hgb Hct MCV MCH MCHC RDW Plt Count MPV Neut % (Auto) Lymph % (Auto) [place] % (Auto) Eos % (Auto) Baso % (Auto) Neut # Lymph # [place] # Eos # Baso # PT INR APTT Puncture Site Rr pCO2 49 H pO2 103 H HCO3 26.2 ABG pH 7.36 ABG Total CO2 29.2 H ABG O2 Saturation 98.6 H ABG Base Excess 1.7 ABG Hemoglobin 10.5 L ABG Carboxyhemoglobin 1.5 POC ABG HHb (Measured) 1.4 ABG Methemoglobin 1.5 Daniel Test Pos A-a O2 Difference 85.0 Respiratory Index 0.8 Hgb O2 Saturation 95.6 Vent Mode Prvc Mechanical Rate 14 FiO2 35.0 Tidal Volume 450 PEEP 5 Sodium Potassium Chloride Carbon Dioxide Anion Gap BUN Creatinine Est GFR ( Amer) Est GFR (Non-Af Amer) POC Glucose (mg/dL) 74 89 Random Glucose Calcium Phosphorus Magnesium Total Bilirubin AST ALT Alkaline Phosphatase Total Protein Albumin Globulin Albumin/Globulin Ratio 04/22/17 04/22/17 04/22/17 05:26 06:11 06:11 WBC 17.5 H RBC 3.09 L Hgb 8.7 L Hct 26.3 L MCV 85.0 MCH 28.2 MCHC 33.1 RDW 15.4 H Plt Count 413 H MPV 8.5 Neut % (Auto) 72.8 Lymph % (Auto) 10.4 L [place] % (Auto) 10.6 H Eos % (Auto) 5.9 H Baso % (Auto) 0.3 Neut # 12.8 H Lymph # 1.8 [place] # 1.9 H Eos # 1.0 H Baso # 0.0 PT 13.5 H INR 1.2 APTT 30 Puncture Site pCO2 pO2 HCO3 ABG pH ABG Total CO2 ABG O2 Saturation ABG Base Excess ABG Hemoglobin ABG Carboxyhemoglobin POC ABG HHb (Measured) ABG Methemoglobin Daniel Test A-a O2 Difference Respiratory Index Hgb O2 Saturation Vent Mode Mechanical Rate FiO2 Tidal Volume PEEP Sodium Potassium Chloride Carbon Dioxide Anion Gap BUN Creatinine Est GFR ( Amer) Est GFR (Non-Af Amer) POC Glucose (mg/dL) 92 Random Glucose Calcium Phosphorus Magnesium Total Bilirubin AST ALT Alkaline Phosphatase Total Protein Albumin Globulin Albumin/Globulin Ratio 04/22/17 04/22/17 06:11 11:21 WBC RBC Hgb Hct MCV MCH MCHC RDW Plt Count MPV Neut % (Auto) Lymph % (Auto) [place] % (Auto) Eos % (Auto) Baso % (Auto) Neut # Lymph # [place] # Eos # Baso # PT INR APTT Puncture Site pCO2 pO2 HCO3 ABG pH ABG Total CO2 ABG O2 Saturation ABG Base Excess ABG Hemoglobin ABG Carboxyhemoglobin POC ABG HHb (Measured) ABG Methemoglobin Daniel Test A-a O2 Difference Respiratory Index Hgb O2 Saturation Vent Mode Mechanical Rate FiO2 Tidal Volume PEEP Sodium 131 L Potassium 3.3 L Chloride 97 L Carbon Dioxide 27 Anion Gap 11 BUN 22 H Creatinine 2.8 H Est GFR ( Amer) 23 Est GFR (Non-Af Amer) 19 POC Glucose (mg/dL) 103 Random Glucose 86 Calcium 7.4 L Phosphorus 2.9 Magnesium 1.7 Total Bilirubin 1.0 AST 23 ALT 17 Alkaline Phosphatase 138 H D Total Protein 5.4 L Albumin 2.6 L Globulin 2.8 Albumin/Globulin Ratio 0.9 L Assessment & Plan (1) Focal seizure Status: Acute Comment: Appears to have some focal seziure activity. Will review EEG. Repeat head CT w/o contrast. Will load with 1000mg Keppra IV. Will start tomorrow with Keppra 250mg PO BID. Discussed with Dr. Bryant. All management per Dr. Bryant
[2017-04-22] MEDS: Cefepime IV 1 gm in Dextrose 1 GM/50 ML BAG IVPB SCH (18:37)
--- NOTE | 2017-04-22 18:56 | CP.PCM.PN ---
Subjective - Date & Time of Evaluation Date of Evaluation: 04/22/17 Time of Evaluation: 08:00 - Subjective Subjective: events noted s/p seizures iv rx in progress no new + cultures Objective - Vital Signs/Intake and Output Vital Signs (last 24 hours): Temp Pulse Resp BP Pulse Ox 98.0 F 120 H 14 114/67 100 04/22/17 18:00 04/22/17 17:53 04/22/17 17:53 04/22/17 17:53 04/22/17 18:00 Intake and Output: 04/22/17 04/22/17 06:59 18:59 Intake Total 1710.9 1600.3 Output Total 950 931 Balance 760.9 669.3 - Medications Medications: Current Medications Acetaminophen (Tylenol 650mg/20.3ml Solution Ud) 650 mg PO Q6 PRN PRN Reason: Temperature Last Admin: 04/21/17 21:41 Dose: 650 mg Acetaminophen (Tylenol 650 Mg Supp) 650 mg [place] Q4 PRN PRN Reason: Fever >100.4 F Albuterol/Ipratropium (Duoneb 3 Mg/0.5 Mg (3 Ml) Ud) 3 ml INH RQ6 [facility] Last Admin: 04/22/17 13:05 Dose: 3 ml Ascorbic Acid (Vitamin C 500 Mg Tab) 500 mg PO DAILY [facility] Last Admin: 04/22/17 09:55 Dose: Not Given Haloperidol Lactate (Haldol) 1 mg IVP BID PRN PRN Reason: Agitation Last Admin: 04/17/17 00:00 Dose: 1 mg Hydromorphone HCl (Dilaudid) 1 mg IVP Q3 PRN PRN Reason: Pain, severe (8-10) Last Admin: 04/18/17 14:50 Dose: 1 mg Fluconazole (Diflucan Iv 200 Mg/100 Ml Ns) 100 mls @ 100 mls/hr IVPB DAILY [facility] Last Admin: 04/22/17 10:05 Dose: 100 mls/hr Vasopressin 40 units/ Sodium (Chloride) 40 mls @ 0.6 mls/hr IV .Q24H PRN; Protocol; 0.01 UNITS/MIN PRN Reason: TITRATE PER PROTOCOL Last Titration: 04/22/17 00:39 Dose: 0 units/min, 0 mls/hr Dexmedetomidine HCl 400 mcg/ (Sodium Chloride) 100 mls @ 3.4 mls/hr IV TITR PRN ; Protocol; 0.2 MCG/KG/HR PRN Reason: Agitation Last Titration: 04/22/17 09:42 Dose: 0.2 mcg/kg/hr, 3.4 mls/hr Fentanyl Citrate 2,500 mcg/ (Sodium Chloride) 250 mls @ 13.56 mls/hr IV .[id number] PRN; Protocol; 2 MCG/KG/HR PRN Reason: TITRATE PER MD ORDER Last Titration: 04/22/17 14:03 Dose: 4 mcg/kg/hr, 27.12 mls/hr Cefepime HCl (Maxipime Iv 1 Gm Premix) 1 gm in 50 mls @ 100 mls/hr IVPB Q24H [facility] Last Admin: 04/22/17 18:37 Dose: 100 mls/hr Vancomycin HCl 500 mg/ Sodium (Chloride) 100 mls @ 100 mls/hr IVPB MWF [facility] Last Admin: 04/22/17 09:54 Dose: 100 mls/hr Dextrose/Sodium Chloride (Dextrose 5%/0.45% Ns 1000 Ml) 1,000 mls @ 50 mls/hr IV .Q20H [facility] Last Admin: 04/22/17 00:17 Dose: 50 mls/hr Levetiracetam (Keppra) 250 mg PO BID [facility] Lorazepam (Ativan) 0.5 mg IVP Q3H PRN PRN Reason: Anxiety Last Admin: 04/18/17 03:30 Dose: 0.5 mg Lorazepam (Ativan) 2 mg IVP Q4H PRN PRN Reason: Seizure activity Last Admin: 04/21/17 10:35 Dose: 2 mg Ondansetron HCl (Zofran Inj) 4 mg IVP Q6H PRN PRN Reason: Nausea/Vomiting Last Admin: 04/11/17 21:39 Dose: 4 mg Pantoprazole Sodium (Protonix Inj) 20 mg IVP BID [facility] Last Admin: 04/22/17 17:42 Dose: 20 mg Saccharomyces Boulardii (Florastor) 250 mg PO BID [facility] Last Admin: 04/22/17 17:38 Dose: Not Given Thiamine HCl (Vitamin B1 Tab) 100 mg PO DAILY [facility] Last Admin: 04/22/17 09:55 Dose: Not Given - Labs Labs: 04/22/17 06:11 04/22/17 06:11 PT 13.5 SECONDS (9.7-12.2) H 04/22/17 06:11 INR 1.2 04/22/17 06:11 APTT 30 SECONDS (21-34) 04/22/17 06:11 - Constitutional Appears: Non-toxic, Chronically Ill - Head Exam Head Exam: NORMOCEPHALIC - Eye Exam Eye Exam: PERRL - ENT Exam ENT Exam: Mucous Membranes Dry Additional comments: intubated - Neck Exam Neck Exam: absent: Lymphadenopathy - Respiratory Exam Respiratory Exam: Decreased Breath Sounds - Cardiovascular Exam Cardiovascular Exam: REGULAR RHYTHM - GI/Abdominal Exam GI & Abdominal Exam: Distended, Soft - Rectal Exam Rectal Exam: Deferred - Exam Exam: NORMAL INSPECTION Assessment and Plan (1) Acute pancreatitis Status: Acute (2) Leucocytosis Status: Acute
--- NOTE | 2017-04-23 01:29 | CT ---
EXAM: CT Head Without Intravenous Contrast EXAM DATE/TIME: 04/22/2017 1:54 PM CLINICAL HISTORY: 36 years old, female; Pain; Other: New seizure; Prior surgery; Patient HX: 04-08-17; Additional info: New seizures TECHNIQUE: Axial computed tomography images of the head/brain without intravenous contrast. All CT scans at this facility use one or more dose reduction techniques, viz.: automated exposure control; ma/kV adjustment per patient size (including targeted exams where dose is matched to indication; i.e. head); or iterative reconstruction technique. Coronal and sagittal reformatted images were created and reviewed. COMPARISON: CT - HEAD W/O CONTRAST 2017-04-08 11:21 FINDINGS: Brain: Ventricles are normal in size and configuration. There is no midline shift. There are no intra-axial or extra-axial mass lesions or areas of hemorrhage. There are no abnormal fluid collections. Paz-white differentiation is maintained. Ventricles: See above. Bones: Cranial vault is intact. Soft tissues: unremarkable Sinuses: There is no acute sinusitis. Ears and mastoids: Middle ears and mastoids are unremarkable Orbits: Orbital contents are unremarkable. IMPRESSION: No acute intracranial abnormality
[2017-04-23] MEDS: Albuterol-Ipratrop 3 mg / 0.5 (3 ml) UD INH SCH ×4 (02:19→20:03)
--- NOTE | 2017-04-23 04:17 | RAD ---
HISTORY: reeval COMPARISON: Chest x-ray performed 04/21/17 TECHNIQUE: Chest, one view. FINDINGS: Endotracheal tube terminates approximately 3.5 cm above the guy. Nasogastric tube extends expected location of the stomach. LUNGS: Mild pulmonary venous congestion. Patchy right lower lobe atelectasis/infiltrates. Please note that chest x-ray has limited sensitivity for the detection of pulmonary masses. PLEURA: No significant pleural effusion identified. No definite pneumothorax . CARDIOVASCULAR: Mild cardiomegaly. OSSEOUS STRUCTURES: No acute osseous abnormality is detected. VISUALIZED UPPER ABDOMEN: Midline abdominal surgical zoraida. OTHER FINDINGS: None. IMPRESSION: Endotracheal tube terminates approximately 3.5 cm above the guy. Nasogastric tube extends to the expected location of the stomach. Mild cardiomegaly. Patchy right lower lobe atelectasis/ infiltrates. Mild pulmonary venous congestion.
[2017-04-23 05:59] LABS: ABG ALLEN TEST POS; ARTERIAL BLOOD GAS HCO3 24.7 mmol/L (21-28); ARTERIAL BLOOD GAS HEMOGLOBIN 9.5 g/dL (11.7-17.4); ARTERIAL BLOOD GAS PCO2 48 mm/Hg (35-45); ARTERIAL BLOOD GAS PH 7.34 (7.35-7.45); ARTERIAL BLOOD GAS PO2 90 mm/Hg (80-100); ARTERIAL BLOOD GAS TCO2 27.4 mmol/L (22-28)
[2017-04-23 06:40] LABS: BASO # 0.1 K/uL (0.0-0.2); BASO % 0.4 % (0.0-2.0); EOS % 5.6 % (0.0-4.0); HEMOGLOBIN 9.5 g/dL (11.0-16.0); LYMPH # 2.1 K/uL (1.0-4.3); LYMPH % 11.2 % (20.0-40.0); MEAN CELL VOLUME 88.6 fL (81.0-99.0); MEAN CORPUSCULAR HEMOGLOBIN 29.1 pg (27.0-31.0); MEAN CORPUSCULAR HGB CONC 32.8 g/dL (33.0-37.0); MEAN PLATELET VOLUME 8.6 fL (7.2-11.7); MONO % 10.5 % (0.0-10.0); NEUT # 13.4 K/uL (1.8-7.0); NEUT % 72.3 % (50.0-75.0); NRBC % 0.1 % (0.0-2.0); RBC 3.28 Mil/uL (3.80-5.20); RED CELL DISTRIBUTION WIDTH 15.7 % (11.5-14.5); WHITE BLOOD COUNT 18.5 K/uL (4.8-10.8)
[2017-04-23 07:01] LABS: ALB/GLOB RATIO 0.9 (1.0-2.1); ALBUMIN 2.7 g/dL (3.5-5.0); CALCIUM 7.8 mg/dl (8.6-10.4)
--- NOTE | 2017-04-23 10:06 | CP.CCUPN ---
CCU Subjective - Physician Review Events Since Last Encounter (Free Text): 04/23/17 10:06 36-year-old female with psychiatric problem. Patient usually nonverbal, unable to communicate with her properly. Postoperatively patient intubated, still on ventilator. Having difficulty in extubation, because at the tachycardia, tachypnea, and episodes of unstable vital signs. There is also episodes of seizure activity is, currently on medications. Patient is currently receiving feedings via jejunostomy tube, but still not clear whether she is tolerating. Patient is receiving hemodialysis, is currently on hold, as the patient is making urine, and being closely watched, and the patient may need a dialysis home. Today I attempted to wean, reducing the sedation, patient becomes more tachycardic, heart rate 150, respiration is 50. And also patient become hypoxic. She also has a thick secretions from the endotracheal tube. X-ray of the chest showing right lung pneumonia. With all the complications, in my opinion patient will need a tracheostomy tube. The tracheostomy tube is a possibility, increasing mobilization, and the weaning possible. Discussed with the family. Multiple consultants patient is being seen by. Follow-up the patient CCU Objective - Vital Signs / Intake & Output Vital Signs (Last 4 hours): Vital Signs Pulse Resp BP Pulse Ox 04/23/17 09:00 114 H 14 99 04/23/17 08:37 96 H 14 94/54 L 100 04/23/17 08:00 118 H 14 98 04/23/17 07:37 101 H 14 97/56 L 100 04/23/17 07:00 95 H 14 100 04/23/17 06:37 103 H 14 91/51 L 100 Intake and Output (Last 8hrs): Intake & Output 04/22/17 04/23/17 04/23/17 22:59 06:59 14:59 Intake Total 882.7 982.9 Output Total 805 925 20 Balance 77.7 57.9 -20 Intake: IV 216 379.2 Intake, IV Amount 616.7 418.7 Right Antecubital 33.3 25.9 Right Femoral 303.4 333 Right Medial Port Femoral 280 45 Rt Femoral 14.8 Tube Feeding 40 185 Other 10 Output: Gastric Amount 100 350 Right Nares 100 350 Drainage 155 100 20 Left Lower Abdomen 130 100 20 Right Lower Abdomen 25 Urine 550 475 Urethral (Tovar) 550 475 - Physical Exam Head: Positive for: Atraumatic, Normocephalic. Negative for: Tenderness Pupils: Positive for: PERRL Extroacular Muscles: Positive for: EOMI Mouth: Positive for: Moist Mucous Membranes. Negative for: Dry, Drooling Nose (External): Positive for: Other (NGT in place) Nose (Internal): Positive for: Normal Inspection, Moist Neck: Positive for: Normal Range of Motion. Negative for: JVD, Lymphadenopathy Respiratory/Chest: Positive for: Clear to Auscultation. Negative for: Respiratory Distress, Accessory Muscle Use Cardiovascular: Positive for: Regular Rate and Rhythm, Normal S1, S2 Abdomen: Positive for: Tenderness (mild tenderness of palpation. patient continues to move her arms towards hands on palpation). Negative for: Distention, Guarding Upper Extremity: Positive for: Normal Inspection, Normal ROM, Capillary Refill < 2s. Negative for: Edema Lower Extremity: Positive for: Normal Inspection. Negative for: Edema Neurological: Positive for: CN II-XII Intact Skin: Positive for: Warm, Pale Psychiatric: Positive for: Alert - Medications Active Medications: Active Medications Generic Name Dose Route Start Last Admin Trade Name Freq PRN Reason Stop Dose Admin Acetaminophen 650 mg 04/20/17 09:08 04/21/17 21:41 Tylenol 650mg/20.3ml Solution Ud PO 650 mg Q6 PRN Administration Temperature Acetaminophen 650 mg 04/20/17 10:17 Tylenol 650 Mg Supp NC Q4 PRN Fever >100.4 F Albuterol/Ipratropium 3 ml 04/18/17 14:00 04/23/17 08:14 Duoneb 3 Mg/0.5 Mg (3 Ml) Ud INH 3 ml RQ6 AGUSTIN Administration Ascorbic Acid 500 mg 04/08/17 12:30 04/22/17 09:55 Vitamin C 500 Mg Tab PO Not Given DAILY AGUSTIN Calcium Acetate 667 mg 04/23/17 17:00 Phoslo PO BIDCC AGUSTIN Haloperidol Lactate 1 mg 03/29/17 18:47 04/17/17 00:00 Haldol IVP 1 mg BID PRN Administration Agitation Hydromorphone HCl 1 mg 04/17/17 07:16 04/18/17 14:50 Dilaudid IVP 1 mg Q3 PRN Administration Pain, severe (8-10) Fluconazole 100 mls @ 100 mls/hr 04/21/17 10:00 04/22/17 10:05 Diflucan Iv 200 Mg/100 Ml Ns IVPB 100 mls/hr DAILY AGUSTIN Administration Vasopressin 40 units/ Sodium 40 mls @ 0.6 mls/hr 04/21/17 09:30 04/22/17 00: 39 Chloride IV 0 units/min .Q24H PRN 0 mls/hr TITRATE PER PROTOCOL Titration Protocol 0.01 UNITS/MIN Dexmedetomidine HCl 400 mcg/ 100 mls @ 3.4 mls/hr 04/21/17 16:30 04/23/17 04: 40 Sodium Chloride IV 0.4 mcg/kg/hr TITR PRN 6.8 mls/hr Agitation Titration Protocol 0.2 MCG/KG/HR Fentanyl Citrate 2,500 mcg/ 250 mls @ 13.56 mls/hr 04/21/17 17:00 04/23/17 05 :03 Sodium Chloride IV 5 mcg/kg/hr .[id number] PRN 33.9 mls/hr TITRATE PER MD ORDER Titration Protocol 2 MCG/KG/HR Cefepime HCl 1 gm in 50 mls @ 100 mls/hr 04/21/17 19:30 04/22/17 18:37 Maxipime Iv 1 Gm Premix IVPB 100 mls/hr Q24H AGUSTIN Administration Vancomycin HCl 500 mg/ Sodium 100 mls @ 100 mls/hr 04/22/17 09:00 04/22/17 09 :54 Chloride IVPB 100 mls/hr MWF AGUSTIN Administration Levetiracetam 250 mg 04/23/17 18:00 Keppra PO BID AGUSTIN Lorazepam 0.5 mg 04/01/17 16:08 04/23/17 07:32 Ativan IVP 0.5 mg Q3H PRN Administration Anxiety Lorazepam 2 mg 04/20/17 18:18 04/22/17 19:01 Ativan IVP 2 mg Q4H PRN Administration Seizure activity Ondansetron HCl 4 mg 03/27/17 23:45 04/11/17 21:39 Zofran Inj IVP 4 mg Q6H PRN Administration Nausea/Vomiting Pantoprazole Sodium 20 mg 04/19/17 18:00 04/22/17 17:42 Protonix Inj IVP 20 mg BID AGUSTIN Administration Saccharomyces Boulardii 250 mg 04/08/17 18:00 04/22/17 17:38 Florastor PO Not Given BID AGUSTIN Thiamine HCl 100 mg 04/08/17 12:30 04/22/17 09:55 Vitamin B1 Tab PO Not Given DAILY [facility] - Patient Studies Lab Studies: Microbiology Studies 04/18/17 22:15 Blood Culture - Preliminary Blood-Venous NO GROWTH AFTER 4 DAYS 04/18/17 21:45 Blood Culture - Preliminary Blood-Venous NO GROWTH AFTER 4 DAYS 04/18/17 21:42 Gram Stain - Final Abdomen Wound Culture - Preliminary No growth. Lab Studies 04/23/17 04/23/17 04/23/17 Range/Units 06:29 06:29 05:41 WBC 18.5 H (4.8-10.8) K/uL RBC 3.28 L (3.80-5.20) Mil/uL Hgb 9.5 L (11.0-16.0) g/dL Hct 29.1 L (34.0-47.0) % MCV 88.6 D (81.0-99.0) fL MCH 29.1 (27.0-31.0) pg MCHC 32.8 L (33.0-37.0) g/dL RDW 15.7 H (11.5-14.5) % Plt Count 472 H (130-400) K/uL MPV 8.6 (7.2-11.7) fL Neut % (Auto) 72.3 (50.0-75.0) % Lymph % (Auto) 11.2 L (20.0-40.0) % [place] % (Auto) 10.5 H (0.0-10.0) % Eos % (Auto) 5.6 H (0.0-4.0) % Baso % (Auto) 0.4 (0.0-2.0) % Neut # 13.4 H (1.8-7.0) K/uL Lymph # 2.1 (1.0-4.3) K/uL [place] # 2.0 H (0.0-0.8) K/uL Eos # 1.0 H (0.0-0.7) K/uL Baso # 0.1 (0.0-0.2) K/uL Puncture Site pCO2 (35-45) mm/Hg pO2 (80-100) mm/Hg HCO3 (21-28) mmol/L ABG pH (7.35-7.45) ABG Total CO2 (22-28) mmol/L ABG O2 Saturation (95-98) % ABG Base Excess (-2.0-3.0) mmol/L ABG Hemoglobin (11.7-17.4) g/dL ABG Carboxyhemoglobin (0.5-1.5) % POC ABG HHb (Measured) (0.0-5.0) % ABG Methemoglobin (0.0-3.0) % Daniel Test A-a O2 Difference mm/Hg Respiratory Index Hgb O2 Saturation (95.0-98.0) % Vent Mode Mechanical Rate FiO2 % Tidal Volume PEEP Sodium 135 (132-148) mmol/L Potassium 4.3 (3.6-5.2) mmol/L Chloride 104 (98-107) mmol/L Carbon Dioxide 22 (22-30) mmol/L Anion Gap 13 (10-20) BUN 26 H (7-17) mg/dL Creatinine 3.1 H (0.7-1.2) mg/dL Est GFR ( Amer) 21 Est GFR (Non-Af Amer) 17 POC Glucose (mg/dL) 102 (65-110) mg/dL Random Glucose 91 (65-105) mg/dL Calcium 7.8 L (8.6-10.4) mg/dl Phosphorus 5.5 H (2.5-4.5) mg/dL Magnesium 1.8 (1.6-2.3) mg/dL Total Bilirubin 1.0 (0.2-1.3) mg/dL AST 35 (14-36) U/L ALT 15 (9-52) U/L Alkaline Phosphatase 171 H D (38-126) U/L Total Protein 5.9 L (6.3-8.3) g/dL Albumin 2.7 L (3.5-5.0) g/dL Globulin 3.2 (2.2-3.9) gm/dL Albumin/Globulin Ratio 0.9 L (1.0-2.1) 04/23/17 04/23/17 04/22/17 Range/Units 05:36 05:32 23:39 WBC (4.8-10.8) K/uL RBC (3.80-5.20) Mil/uL Hgb (11.0-16.0) g/dL Hct (34.0-47.0) % MCV (81.0-99.0) fL MCH (27.0-31.0) pg MCHC (33.0-37.0) g/dL RDW (11.5-14.5) % Plt Count (130-400) K/uL MPV (7.2-11.7) fL Neut % (Auto) (50.0-75.0) % Lymph % (Auto) (20.0-40.0) % [place] % (Auto) (0.0-10.0) % Eos % (Auto) (0.0-4.0) % Baso % (Auto) (0.0-2.0) % Neut # (1.8-7.0) K/uL Lymph # (1.0-4.3) K/uL Erie # (0.0-0.8) K/uL Eos # (0.0-0.7) K/uL Baso # (0.0-0.2) K/uL Puncture Site Rr pCO2 48 H (35-45) mm/Hg pO2 90 (80-100) mm/Hg HCO3 24.7 (21-28) mmol/L ABG pH 7.34 L (7.35-7.45) ABG Total CO2 27.4 (22-28) mmol/L ABG O2 Saturation 98.0 (95-98) % ABG Base Excess -0.2 (-2.0-3.0) mmol/L ABG Hemoglobin 9.5 L (11.7-17.4) g/dL ABG Carboxyhemoglobin 1.7 H (0.5-1.5) % POC ABG HHb (Measured) 1.9 (0.0-5.0) % ABG Methemoglobin 1.6 (0.0-3.0) % Daniel Test Pos A-a O2 Difference 100.0 mm/Hg Respiratory Index 1.1 Hgb O2 Saturation 94.8 L (95.0-98.0) % Vent Mode Prvc Mechanical Rate 14 FiO2 35.0 % Tidal Volume 450 PEEP 5 Sodium (132-148) mmol/L Potassium (3.6-5.2) mmol/L Chloride (98-107) mmol/L Carbon Dioxide (22-30) mmol/L Anion Gap (10-20) BUN (7-17) mg/dL Creatinine (0.7-1.2) mg/dL Est GFR ( Amer) Est GFR (Non-Af Amer) POC Glucose (mg/dL) 39 L 89 (65-110) mg/dL Random Glucose (65-105) mg/dL Calcium (8.6-10.4) mg/dl Phosphorus (2.5-4.5) mg/dL Magnesium (1.6-2.3) mg/dL Total Bilirubin (0.2-1.3) mg/dL AST (14-36) U/L ALT (9-52) U/L Alkaline Phosphatase (38-126) U/L Total Protein (6.3-8.3) g/dL Albumin (3.5-5.0) g/dL Globulin (2.2-3.9) gm/dL Albumin/Globulin Ratio (1.0-2.1) 04/22/17 04/22/17 Range/Units 17:50 11:21 WBC (4.8-10.8) K/uL RBC (3.80-5.20) Mil/uL Hgb (11.0-16.0) g/dL Hct (34.0-47.0) % MCV (81.0-99.0) fL MCH (27.0-31.0) pg MCHC (33.0-37.0) g/dL RDW (11.5-14.5) % Plt Count (130-400) K/uL MPV (7.2-11.7) fL Neut % (Auto) (50.0-75.0) % Lymph % (Auto) (20.0-40.0) % [place] % (Auto) (0.0-10.0) % Eos % (Auto) (0.0-4.0) % Baso % (Auto) (0.0-2.0) % Neut # (1.8-7.0) K/uL Lymph # (1.0-4.3) K/uL [place] # (0.0-0.8) K/uL Eos # (0.0-0.7) K/uL Baso # (0.0-0.2) K/uL Puncture Site pCO2 (35-45) mm/Hg pO2 (80-100) mm/Hg HCO3 (21-28) mmol/L ABG pH (7.35-7.45) ABG Total CO2 (22-28) mmol/L ABG O2 Saturation (95-98) % ABG Base Excess (-2.0-3.0) mmol/L ABG Hemoglobin (11.7-17.4) g/dL ABG Carboxyhemoglobin (0.5-1.5) % POC ABG HHb (Measured) (0.0-5.0) % ABG Methemoglobin (0.0-3.0) % Daniel Test A-a O2 Difference mm/Hg Respiratory Index Hgb O2 Saturation (95.0-98.0) % Vent Mode Mechanical Rate FiO2 % Tidal Volume PEEP Sodium (132-148) mmol/L Potassium (3.6-5.2) mmol/L Chloride (98-107) mmol/L Carbon Dioxide (22-30) mmol/L Anion Gap (10-20) BUN (7-17) mg/dL Creatinine (0.7-1.2) mg/dL Est GFR ( Amer) Est GFR (Non-Af Amer) POC Glucose (mg/dL) 86 103 (65-110) mg/dL Random Glucose (65-105) mg/dL Calcium (8.6-10.4) mg/dl Phosphorus (2.5-4.5) mg/dL Magnesium (1.6-2.3) mg/dL Total Bilirubin (0.2-1.3) mg/dL AST (14-36) U/L ALT (9-52) U/L Alkaline Phosphatase (38-126) U/L Total Protein (6.3-8.3) g/dL Albumin (3.5-5.0) g/dL Globulin (2.2-3.9) gm/dL Albumin/Globulin Ratio (1.0-2.1) Laboratory Results - last 24 hr 04/22/17 04/22/17 04/22/17 11:21 17:50 23:39 WBC RBC Hgb Hct MCV MCH MCHC RDW Plt Count MPV Neut % (Auto) Lymph % (Auto) [place] % (Auto) Eos % (Auto) Baso % (Auto) Neut # Lymph # [place] # Eos # Baso # Puncture Site pCO2 pO2 HCO3 ABG pH ABG Total CO2 ABG O2 Saturation ABG Base Excess ABG Hemoglobin ABG Carboxyhemoglobin POC ABG HHb (Measured) ABG Methemoglobin Daniel Test A-a O2 Difference Respiratory Index Hgb O2 Saturation Vent Mode Mechanical Rate FiO2 Tidal Volume PEEP Sodium Potassium Chloride Carbon Dioxide Anion Gap BUN Creatinine Est GFR ( Amer) Est GFR (Non-Af Amer) POC Glucose (mg/dL) 103 86 89 Random Glucose Calcium Phosphorus Magnesium Total Bilirubin AST ALT Alkaline Phosphatase Total Protein Albumin Globulin Albumin/Globulin Ratio 04/23/17 04/23/17 04/23/17 05:32 05:36 05:41 WBC RBC Hgb Hct MCV MCH MCHC RDW Plt Count MPV Neut % (Auto) Lymph % (Auto) [place] % (Auto) Eos % (Auto) Baso % (Auto) Neut # Lymph # [place] # Eos # Baso # Puncture Site Rr pCO2 48 H pO2 90 HCO3 24.7 ABG pH 7.34 L ABG Total CO2 27.4 ABG O2 Saturation 98.0 ABG Base Excess -0.2 ABG Hemoglobin 9.5 L ABG Carboxyhemoglobin 1.7 H POC ABG HHb (Measured) 1.9 ABG Methemoglobin 1.6 Daniel Test Pos A-a O2 Difference 100.0 Respiratory Index 1.1 Hgb O2 Saturation 94.8 L Vent Mode Prvc Mechanical Rate 14 FiO2 35.0 Tidal Volume 450 PEEP 5 Sodium Potassium Chloride Carbon Dioxide Anion Gap BUN Creatinine Est GFR ( Amer) Est GFR (Non-Af Amer) POC Glucose (mg/dL) 39 L 102 Random Glucose Calcium Phosphorus Magnesium Total Bilirubin AST ALT Alkaline Phosphatase Total Protein Albumin Globulin Albumin/Globulin Ratio 04/23/17 04/23/17 06:29 06:29 WBC 18.5 H RBC 3.28 L Hgb 9.5 L Hct 29.1 L MCV 88.6 D MCH 29.1 MCHC 32.8 L RDW 15.7 H Plt Count 472 H MPV 8.6 Neut % (Auto) 72.3 Lymph % (Auto) 11.2 L [place] % (Auto) 10.5 H Eos % (Auto) 5.6 H Baso % (Auto) 0.4 Neut # 13.4 H Lymph # 2.1 [place] # 2.0 H Eos # 1.0 H Baso # 0.1 Puncture Site pCO2 pO2 HCO3 ABG pH ABG Total CO2 ABG O2 Saturation ABG Base Excess ABG Hemoglobin ABG Carboxyhemoglobin POC ABG HHb (Measured) ABG Methemoglobin Daniel Test A-a O2 Difference Respiratory Index Hgb O2 Saturation Vent Mode Mechanical Rate FiO2 Tidal Volume PEEP Sodium 135 Potassium 4.3 Chloride 104 Carbon Dioxide 22 Anion Gap 13 BUN 26 H Creatinine 3.1 H Est GFR ( Amer) 21 Est GFR (Non-Af Amer) 17 POC Glucose (mg/dL) Random Glucose 91 Calcium 7.8 L Phosphorus 5.5 H Magnesium 1.8 Total Bilirubin 1.0 AST 35 ALT 15 Alkaline Phosphatase 171 H D Total Protein 5.9 L Albumin 2.7 L Globulin 3.2 Albumin/Globulin Ratio 0.9 L Fingerstick Blood Sugar Results: 102 Critical Care Progress Note - Nutrition Nutrition: Nutrition Category Date Time Status NPO Diet [DIET] Diets 04/08/17 Dinner Active
[2017-04-23] MEDS: Dexmedetomidine Hydrochloride 400 MCG in Sodium Chloride 0.9% 96 ML IV PRN ×2 (10:51→21:03)
[2017-04-23] MEDS: Fluconazole IV 200mg/100 ml NS 100 ML IVPB SCH (10:52)
--- NOTE | 2017-04-23 11:04 | RAD ---
HISTORY: intubated COMPARISON: Chest x-ray performed 04/22/17 TECHNIQUE: Chest, one view. FINDINGS: Endotracheal tube terminates approximately 3.3 cm above the guy. Nasogastric tube extends expected location of the stomach. External wires and leads obscure evaluation of the underlying parenchyma. LUNGS: Interval development of diffuse bilateral pulmonary opacities with minimal increased aeration at the apices. CARDIOVASCULAR: Obscured. OSSEOUS STRUCTURES: No acute osseous abnormality identified. VISUALIZED UPPER ABDOMEN: Unremarkable. OTHER FINDINGS: None. IMPRESSION: Endotracheal tube terminates approximately 3.3 cm above the guy. Nasogastric tube extends expected location of the stomach. Interval development of diffuse bilateral pulmonary opacities with minimal increased aeration at the apices.
[2017-04-23] MEDS: Saccharomyces Boulardi 250 mg Cap PO SCH ×2 (11:06→18:35)
--- NOTE | 2017-04-23 12:14 | CP.PCM.PN ---
Subjective - Date & Time of Evaluation Date of Evaluation: 04/23/17 Time of Evaluation: 12:12 - Subjective Subjective: on respirator good u/o, but xray still with infiltrates unable to obtain ROS due to clinical condition Objective - Vital Signs/Intake and Output Vital Signs (last 24 hours): Temp Pulse Resp BP Pulse Ox 98.9 F 114 H 14 94/54 L 99 04/23/17 04:42 04/23/17 09:00 04/23/17 09:00 04/23/17 08:37 04/23/17 09:00 Intake and Output: 04/23/17 04/23/17 06:59 18:59 Intake Total 1535.7 87.5 Output Total 1410 20 Balance 125.7 67.5 - Medications Medications: Current Medications Acetaminophen (Tylenol 650mg/20.3ml Solution Ud) 650 mg PO Q6 PRN PRN Reason: Temperature Last Admin: 04/21/17 21:41 Dose: 650 mg Acetaminophen (Tylenol 650 Mg Supp) 650 mg MO Q4 PRN PRN Reason: Fever >100.4 F Albuterol/Ipratropium (Duoneb 3 Mg/0.5 Mg (3 Ml) Ud) 3 ml INH RQ6 AGUSTIN Last Admin: 04/23/17 08:14 Dose: 3 ml Ascorbic Acid (Vitamin C 500 Mg Tab) 500 mg PO DAILY AGUSTIN Last Admin: 04/23/17 11:06 Dose: 500 mg Calcium Acetate (Phoslo) 667 mg PO BIDCC AGUSTIN Haloperidol Lactate (Haldol) 1 mg IVP BID PRN PRN Reason: Agitation Last Admin: 04/17/17 00:00 Dose: 1 mg Hydromorphone HCl (Dilaudid) 1 mg IVP Q3 PRN PRN Reason: Pain, severe (8-10) Last Admin: 04/18/17 14:50 Dose: 1 mg Fluconazole (Diflucan Iv 200 Mg/100 Ml Ns) 100 mls @ 100 mls/hr IVPB DAILY AGUSTIN Last Admin: 04/23/17 10:52 Dose: 100 mls/hr Vasopressin 40 units/ Sodium (Chloride) 40 mls @ 0.6 mls/hr IV .Q24H PRN; Protocol; 0.01 UNITS/MIN PRN Reason: TITRATE PER PROTOCOL Last Titration: 04/22/17 00:39 Dose: 0 units/min, 0 mls/hr Dexmedetomidine HCl 400 mcg/ (Sodium Chloride) 100 mls @ 3.4 mls/hr IV TITR PRN ; Protocol; 0.2 MCG/KG/HR PRN Reason: Agitation Last Admin: 04/23/17 10:51 Dose: 0.4 mcg/kg/hr, 6.8 mls/hr Fentanyl Citrate 2,500 mcg/ (Sodium Chloride) 250 mls @ 13.56 mls/hr IV .[id number] PRN; Protocol; 2 MCG/KG/HR PRN Reason: TITRATE PER MD ORDER Last Titration: 04/23/17 11:15 Dose: 4 mcg/kg/hr, 27.12 mls/hr Cefepime HCl (Maxipime Iv 1 Gm Premix) 1 gm in 50 mls @ 100 mls/hr IVPB Q24H [facility] Last Admin: 04/22/17 18:37 Dose: 100 mls/hr Vancomycin HCl 500 mg/ Sodium (Chloride) 100 mls @ 100 mls/hr IVPB MWF [facility] Last Admin: 04/22/17 09:54 Dose: 100 mls/hr Levetiracetam (Keppra) 250 mg PO BID [facility] Lorazepam (Ativan) 0.5 mg IVP Q3H PRN PRN Reason: Anxiety Last Admin: 04/23/17 11:06 Dose: 0.5 mg Lorazepam (Ativan) 2 mg IVP Q4H PRN PRN Reason: Seizure activity Last Admin: 04/22/17 19:01 Dose: 2 mg Ondansetron HCl (Zofran Inj) 4 mg IVP Q6H PRN PRN Reason: Nausea/Vomiting Last Admin: 04/11/17 21:39 Dose: 4 mg Pantoprazole Sodium (Protonix Inj) 20 mg IVP BID [facility] Last Admin: 04/23/17 11:07 Dose: 20 mg Saccharomyces Boulardii (Florastor) 250 mg PO BID [facility] Last Admin: 04/23/17 11:06 Dose: 250 mg Thiamine HCl (Vitamin B1 Tab) 100 mg PO DAILY [facility] Last Admin: 04/23/17 11:06 Dose: 100 mg - Labs Labs: 04/23/17 06:29 04/23/17 06:29 PT 13.5 SECONDS (9.7-12.2) H 04/22/17 06:11 INR 1.2 04/22/17 06:11 APTT 30 SECONDS (21-34) 04/22/17 06:11 - Constitutional Appears: In Acute Distress, Chronically Ill - Head Exam Head Exam: ATRAUMATIC, NORMAL INSPECTION - ENT Exam Additional comments: endotracheal tube, ng tube - Respiratory Exam Respiratory Exam: Decreased Breath Sounds - Cardiovascular Exam Cardiovascular Exam: Tachycardia. absent: Rubs - GI/Abdominal Exam GI & Abdominal Exam: Distended, Hypoactive Bowel Sounds - Neurological Exam Neurological Exam: absent: Alert Assessment and Plan - Assessment and Plan (Free Text) Assessment: dialysis dependent improving u/o, but creatinine continues to rise and pt has evidence of ARDS on xray HD today continue to monitor for recovery
--- NOTE | 2017-04-23 15:32 | CP.PCM.PN ---
Subjective - Date & Time of Evaluation Date of Evaluation: 04/23/17 Time of Evaluation: 15:29 - Subjective Subjective: General Surgery Dr. Mendez pPt S&E @bedside. NAEO. pt intubated and sedated on fentanyl and precidex. Vent settings 18/450/5/35%. Pt tolerating tube feeds via J-tube. Objective - Vital Signs/Intake and Output Vital Signs (last 24 hours): Temp Pulse Resp BP Pulse Ox 98.9 F 114 H 14 113/71 99 04/23/17 04:42 04/23/17 09:00 04/23/17 09:00 04/23/17 13:55 04/23/17 09:00 Intake and Output: 04/23/17 04/23/17 06:59 18:59 Intake Total 1535.7 187.5 Output Total 1410 20 Balance 125.7 167.5 - Medications Medications: Current Medications Acetaminophen (Tylenol 650mg/20.3ml Solution Ud) 650 mg PO Q6 PRN PRN Reason: Temperature Last Admin: 04/21/17 21:41 Dose: 650 mg Acetaminophen (Tylenol 650 Mg Supp) 650 mg NC Q4 PRN PRN Reason: Fever >100.4 F Albuterol/Ipratropium (Duoneb 3 Mg/0.5 Mg (3 Ml) Ud) 3 ml INH RQ6 [facility] Last Admin: 04/23/17 13:16 Dose: 3 ml Ascorbic Acid (Vitamin C 500 Mg Tab) 500 mg PO DAILY [facility] Last Admin: 04/23/17 11:06 Dose: 500 mg Calcium Acetate (Phoslo) 667 mg PO BIDCC [facility] Haloperidol Lactate (Haldol) 1 mg IVP BID PRN PRN Reason: Agitation Last Admin: 04/17/17 00:00 Dose: 1 mg Hydromorphone HCl (Dilaudid) 1 mg IVP Q3 PRN PRN Reason: Pain, severe (8-10) Last Admin: 04/18/17 14:50 Dose: 1 mg Fluconazole (Diflucan Iv 200 Mg/100 Ml Ns) 100 mls @ 100 mls/hr IVPB DAILY [facility] Last Admin: 04/23/17 10:52 Dose: 100 mls/hr Vasopressin 40 units/ Sodium (Chloride) 40 mls @ 0.6 mls/hr IV .Q24H PRN; Protocol; 0.01 UNITS/MIN PRN Reason: TITRATE PER PROTOCOL Last Titration: 04/22/17 00:39 Dose: 0 units/min, 0 mls/hr Dexmedetomidine HCl 400 mcg/ (Sodium Chloride) 100 mls @ 3.4 mls/hr IV TITR PRN ; Protocol; 0.2 MCG/KG/HR PRN Reason: Agitation Last Admin: 04/23/17 10:51 Dose: 0.4 mcg/kg/hr, 6.8 mls/hr Fentanyl Citrate 2,500 mcg/ (Sodium Chloride) 250 mls @ 13.56 mls/hr IV .[id number] PRN; Protocol; 2 MCG/KG/HR PRN Reason: TITRATE PER MD ORDER Last Admin: 04/23/17 14:26 Dose: 4 mcg/kg/hr, 27.12 mls/hr Cefepime HCl (Maxipime Iv 1 Gm Premix) 1 gm in 50 mls @ 100 mls/hr IVPB Q24H [facility] Last Admin: 04/22/17 18:37 Dose: 100 mls/hr Vancomycin HCl 500 mg/ Sodium (Chloride) 100 mls @ 100 mls/hr IVPB MWF [facility] Last Admin: 04/22/17 09:54 Dose: 100 mls/hr Levetiracetam (Keppra) 250 mg PO BID [facility] Lorazepam (Ativan) 0.5 mg IVP Q3H PRN PRN Reason: Anxiety Last Admin: 04/23/17 11:06 Dose: 0.5 mg Lorazepam (Ativan) 2 mg IVP Q4H PRN PRN Reason: Seizure activity Last Admin: 04/22/17 19:01 Dose: 2 mg Ondansetron HCl (Zofran Inj) 4 mg IVP Q6H PRN PRN Reason: Nausea/Vomiting Last Admin: 04/11/17 21:39 Dose: 4 mg Pantoprazole Sodium (Protonix Inj) 20 mg IVP BID [facility] Last Admin: 04/23/17 11:07 Dose: 20 mg Saccharomyces Boulardii (Florastor) 250 mg PO BID [facility] Last Admin: 04/23/17 11:06 Dose: 250 mg Thiamine HCl (Vitamin B1 Tab) 100 mg PO DAILY [facility] Last Admin: 04/23/17 11:06 Dose: 100 mg - Labs Labs: 04/23/17 06:29 04/23/17 06:29 PT 13.5 SECONDS (9.7-12.2) H 04/22/17 06:11 INR 1.2 04/22/17 06:11 APTT 30 SECONDS (21-34) 04/22/17 06:11 - Constitutional Appears: Non-toxic, No Acute Distress, Agitated - Head Exam Head Exam: NORMAL INSPECTION - Eye Exam Eye Exam: Normal appearance - ENT Exam ENT Exam: Mucous Membranes Moist - Respiratory Exam Respiratory Exam: NORMAL BREATHING PATTERN (mechanical ventilation). absent: Accessory Muscle Use, Respiratory Distress - Cardiovascular Exam Cardiovascular Exam: Tachycardia - Extremities Exam Additional comments: mitts in place - Neurological Exam Neurological Exam: Awake - Psychiatric Exam Psychiatric exam: Agitated - Skin Skin Exam: Dry, Normal Color, Warm Assessment and Plan - Assessment and Plan (Free Text) Assessment: 36 y/o F POD#5 s/p ex-lap, gastrojejunostomy w/ jejunostomy tube now w/ renal failure requiring dialysis - permacath to be placed Tuesday - cont tube feeds via J tube - strict Is&Os - monitor bowel fxn - cont medical management per PMD/Critical Care - GI/DVT PPx Pt discussed w/ Dr. Andrea Peterson DO PGY2
--- NOTE | 2017-04-23 16:33 | CP.CCUPN ---
CCU Subjective - Physician Review Subjective (Free Text): Progress note for Dr. Granger Patient seen and examined at bedside. 21:00 Axillary temperature 102.2, 102.5. Tylenol and ice packs given. 101.9 after cooling blanket. 23:30 Rectal T-103. Patient was given cooling blacket and rechecked tempurature 30 min later 98.8. 24 hour TOBI drain output LLQ 283, serosanguinous 24 hour jejunostomy bag output RLQ 8cc, serosanguinous Patient is getting permacath today. CCU Objective - Vital Signs / Intake & Output Vital Signs (Last 4 hours): Vital Signs Temp Pulse Pulse Resp BP BP Pulse Ox 04/23/17 16:20 99/62 L 04/23/17 16:05 107/74 04/23/17 15:54 116 H 18 107/74 99 04/23/17 15:50 116/86 04/23/17 15:43 147 H 25 H 116/86 90 L 04/23/17 15:39 107 H 18 85/47 L 100 04/23/17 15:35 85/47 L 04/23/17 15:24 123 H 18 114/65 97 04/23/17 15:20 99.2 F 112 H 18 114/65 100 04/23/17 15:10 99.2 F 112 H 18 136/92 H 93 L 04/23/17 15:00 97 H 18 100 04/23/17 14:37 108 H 18 109/58 L 100 04/23/17 14:00 116 H 18 100 04/23/17 13:55 113/71 04/23/17 13:37 116 H 18 113/71 99 04/23/17 13:00 86 18 100 04/23/17 12:37 94 H 18 106/67 100 Intake and Output (Last 8hrs): Intake & Output 04/23/17 04/23/17 04/23/17 06:59 14:59 22:59 Intake Total 996.2 485.1 Output Total 925 200 Balance 71.2 285.1 Intake: IV 392.5 187.5 Intake, IV Amount 418.7 177.6 Right Antecubital 25.9 Right Femoral 333 148 Right Medial Port Femoral 45 Rt Femoral 14.8 29.6 Tube Feeding 185 120 Output: Gastric Amount 350 Right Nares 350 Drainage 100 20 Left Lower Abdomen 100 20 Urine 475 180 Urethral (Tovar) 475 180 - Physical Exam Head: Positive for: Atraumatic, Normocephalic. Negative for: Tenderness Pupils: Positive for: PERRL Extroacular Muscles: Positive for: EOMI Mouth: Positive for: Moist Mucous Membranes. Negative for: Dry, Drooling Nose (External): Positive for: Other (NGT in place) Nose (Internal): Positive for: Normal Inspection, Moist Neck: Positive for: Normal Range of Motion. Negative for: JVD, Lymphadenopathy Respiratory/Chest: Positive for: Clear to Auscultation. Negative for: Respiratory Distress, Accessory Muscle Use Cardiovascular: Positive for: Regular Rate and Rhythm, Normal S1, S2 Abdomen: Positive for: Tenderness (mild tenderness of palpation. patient continues to move her arms towards hands on palpation). Negative for: Distention, Guarding Upper Extremity: Positive for: Normal Inspection, Normal ROM, Capillary Refill < 2s. Negative for: Edema Lower Extremity: Positive for: Normal Inspection. Negative for: Edema Neurological: Positive for: CN II-XII Intact Skin: Positive for: Warm, Pale Psychiatric: Positive for: Alert - Medications Active Medications: Active Medications Generic Name Dose Route Start Last Admin Trade Name Freq PRN Reason Stop Dose Admin Acetaminophen 650 mg 04/20/17 09:08 04/21/17 21:41 Tylenol 650mg/20.3ml Solution Ud PO 650 mg Q6 PRN Administration Temperature Acetaminophen 650 mg 04/20/17 10:17 Tylenol 650 Mg Supp RI Q4 PRN Fever >100.4 F Albuterol/Ipratropium 3 ml 04/18/17 14:00 04/23/17 13:16 Duoneb 3 Mg/0.5 Mg (3 Ml) Ud INH 3 ml RQ6 AGUSTIN Administration Ascorbic Acid 500 mg 04/08/17 12:30 04/23/17 11:06 Vitamin C 500 Mg Tab PO 500 mg DAILY AGUSTIN Administration Calcium Acetate 667 mg 04/23/17 17:00 Phoslo PO BIDCC AGUSTIN Haloperidol Lactate 1 mg 03/29/17 18:47 04/17/17 00:00 Haldol IVP 1 mg BID PRN Administration Agitation Hydromorphone HCl 1 mg 04/17/17 07:16 04/18/17 14:50 Dilaudid IVP 1 mg Q3 PRN Administration Pain, severe (8-10) Fluconazole 100 mls @ 100 mls/hr 04/21/17 10:00 04/23/17 10:52 Diflucan Iv 200 Mg/100 Ml Ns IVPB 100 mls/hr DAILY AGUSTIN Administration Vasopressin 40 units/ Sodium 40 mls @ 0.6 mls/hr 04/21/17 09:30 04/22/17 00: 39 Chloride IV 0 units/min .Q24H PRN 0 mls/hr TITRATE PER PROTOCOL Titration Protocol 0.01 UNITS/MIN Dexmedetomidine HCl 400 mcg/ 100 mls @ 3.4 mls/hr 04/21/17 16:30 04/23/17 10: 51 Sodium Chloride IV 0.4 mcg/kg/hr TITR PRN 6.8 mls/hr Agitation Administration Protocol 0.2 MCG/KG/HR Fentanyl Citrate 2,500 mcg/ 250 mls @ 13.56 mls/hr 04/21/17 17:00 04/23/17 14 :26 Sodium Chloride IV 4 mcg/kg/hr .[id number] PRN 27.12 mls/hr TITRATE PER MD ORDER Administration Protocol 2 MCG/KG/HR Cefepime HCl 1 gm in 50 mls @ 100 mls/hr 04/21/17 19:30 04/22/17 18:37 Maxipime Iv 1 Gm Premix IVPB 100 mls/hr Q24H AGUSTIN Administration Vancomycin HCl 500 mg/ Sodium 100 mls @ 100 mls/hr 04/22/17 09:00 04/22/17 09 :54 Chloride IVPB 100 mls/hr [facility] AGUSTIN Administration Levetiracetam 250 mg 04/23/17 18:00 Keppra PO BID AGUSTIN Lorazepam 0.5 mg 04/01/17 16:08 04/23/17 11:06 Ativan IVP 0.5 mg Q3H PRN Administration Anxiety Lorazepam 2 mg 04/20/17 18:18 04/23/17 15:55 Ativan IVP 2 mg Q4H PRN Administration Seizure activity Ondansetron HCl 4 mg 03/27/17 23:45 04/11/17 21:39 Zofran Inj IVP 4 mg Q6H PRN Administration Nausea/Vomiting Pantoprazole Sodium 20 mg 04/19/17 18:00 04/23/17 11:07 Protonix Inj IVP 20 mg BID AGUSTIN Administration Saccharomyces Boulardii 250 mg 04/08/17 18:00 04/23/17 11:06 Florastor PO 250 mg BID AGUSTIN Administration Thiamine HCl 100 mg 04/08/17 12:30 04/23/17 11:06 Vitamin B1 Tab PO 100 mg DAILY AGUSTIN Administration - Patient Studies Lab Studies: Microbiology Studies 04/18/17 22:15 Blood Culture - Preliminary Blood-Venous NO GROWTH AFTER 4 DAYS 04/18/17 21:45 Blood Culture - Preliminary Blood-Venous NO GROWTH AFTER 4 DAYS Lab Studies 04/23/17 04/23/17 04/23/17 Range/Units 11:58 06:29 06:29 WBC 18.5 H (4.8-10.8) K/uL RBC 3.28 L (3.80-5.20) Mil/uL Hgb 9.5 L (11.0-16.0) g/dL Hct 29.1 L (34.0-47.0) % MCV 88.6 D (81.0-99.0) fL MCH 29.1 (27.0-31.0) pg MCHC 32.8 L (33.0-37.0) g/dL RDW 15.7 H (11.5-14.5) % Plt Count 472 H (130-400) K/uL MPV 8.6 (7.2-11.7) fL Neut % (Auto) 72.3 (50.0-75.0) % Lymph % (Auto) 11.2 L (20.0-40.0) % [place] % (Auto) 10.5 H (0.0-10.0) % Eos % (Auto) 5.6 H (0.0-4.0) % Baso % (Auto) 0.4 (0.0-2.0) % Neut # 13.4 H (1.8-7.0) K/uL Lymph # 2.1 (1.0-4.3) K/uL [place] # 2.0 H (0.0-0.8) K/uL Eos # 1.0 H (0.0-0.7) K/uL Baso # 0.1 (0.0-0.2) K/uL Puncture Site pCO2 (35-45) mm/Hg pO2 (80-100) mm/Hg HCO3 (21-28) mmol/L ABG pH (7.35-7.45) ABG Total CO2 (22-28) mmol/L ABG O2 Saturation (95-98) % ABG Base Excess (-2.0-3.0) mmol/L ABG Hemoglobin (11.7-17.4) g/dL ABG Carboxyhemoglobin (0.5-1.5) % POC ABG HHb (Measured) (0.0-5.0) % ABG Methemoglobin (0.0-3.0) % Daniel Test A-a O2 Difference mm/Hg Respiratory Index Hgb O2 Saturation (95.0-98.0) % Vent Mode Mechanical Rate FiO2 % Tidal Volume PEEP Sodium 135 (132-148) mmol/L Potassium 4.3 (3.6-5.2) mmol/L Chloride 104 (98-107) mmol/L Carbon Dioxide 22 (22-30) mmol/L Anion Gap 13 (10-20) BUN 26 H (7-17) mg/dL Creatinine 3.1 H (0.7-1.2) mg/dL Est GFR ( Amer) 21 Est GFR (Non-Af Amer) 17 POC Glucose (mg/dL) 102 (65-110) mg/dL Random Glucose 91 (65-105) mg/dL Calcium 7.8 L (8.6-10.4) mg/dl Phosphorus 5.5 H (2.5-4.5) mg/dL Magnesium 1.8 (1.6-2.3) mg/dL Total Bilirubin 1.0 (0.2-1.3) mg/dL AST 35 (14-36) U/L ALT 15 (9-52) U/L Alkaline Phosphatase 171 H D (38-126) U/L Total Protein 5.9 L (6.3-8.3) g/dL Albumin 2.7 L (3.5-5.0) g/dL Globulin 3.2 (2.2-3.9) gm/dL Albumin/Globulin Ratio 0.9 L (1.0-2.1) 04/23/17 04/23/17 04/23/17 Range/Units 05:41 05:36 05:32 WBC (4.8-10.8) K/uL RBC (3.80-5.20) Mil/uL Hgb (11.0-16.0) g/dL Hct (34.0-47.0) % MCV (81.0-99.0) fL MCH (27.0-31.0) pg MCHC (33.0-37.0) g/dL RDW (11.5-14.5) % Plt Count (130-400) K/uL MPV (7.2-11.7) fL Neut % (Auto) (50.0-75.0) % Lymph % (Auto) (20.0-40.0) % [place] % (Auto) (0.0-10.0) % Eos % (Auto) (0.0-4.0) % Baso % (Auto) (0.0-2.0) % Neut # (1.8-7.0) K/uL Lymph # (1.0-4.3) K/uL [place] # (0.0-0.8) K/uL Eos # (0.0-0.7) K/uL Baso # (0.0-0.2) K/uL Puncture Site Rr pCO2 48 H (35-45) mm/Hg pO2 90 (80-100) mm/Hg HCO3 24.7 (21-28) mmol/L ABG pH 7.34 L (7.35-7.45) ABG Total CO2 27.4 (22-28) mmol/L ABG O2 Saturation 98.0 (95-98) % ABG Base Excess -0.2 (-2.0-3.0) mmol/L ABG Hemoglobin 9.5 L (11.7-17.4) g/dL ABG Carboxyhemoglobin 1.7 H (0.5-1.5) % POC ABG HHb (Measured) 1.9 (0.0-5.0) % ABG Methemoglobin 1.6 (0.0-3.0) % Daniel Test Pos A-a O2 Difference 100.0 mm/Hg Respiratory Index 1.1 Hgb O2 Saturation 94.8 L (95.0-98.0) % Vent Mode Prvc Mechanical Rate 14 FiO2 35.0 % Tidal Volume 450 PEEP 5 Sodium (132-148) mmol/L Potassium (3.6-5.2) mmol/L Chloride (98-107) mmol/L Carbon Dioxide (22-30) mmol/L Anion Gap (10-20) BUN (7-17) mg/dL Creatinine (0.7-1.2) mg/dL Est GFR ( Amer) Est GFR (Non-Af Amer) POC Glucose (mg/dL) 102 39 L (65-110) mg/dL Random Glucose (65-105) mg/dL Calcium (8.6-10.4) mg/dl Phosphorus (2.5-4.5) mg/dL Magnesium (1.6-2.3) mg/dL Total Bilirubin (0.2-1.3) mg/dL AST (14-36) U/L ALT (9-52) U/L Alkaline Phosphatase (38-126) U/L Total Protein (6.3-8.3) g/dL Albumin (3.5-5.0) g/dL Globulin (2.2-3.9) gm/dL Albumin/Globulin Ratio (1.0-2.1) 04/22/17 04/22/17 Range/Units 23:39 17:50 WBC (4.8-10.8) K/uL RBC (3.80-5.20) Mil/uL Hgb (11.0-16.0) g/dL Hct (34.0-47.0) % MCV (81.0-99.0) fL MCH (27.0-31.0) pg MCHC (33.0-37.0) g/dL RDW (11.5-14.5) % Plt Count (130-400) K/uL MPV (7.2-11.7) fL Neut % (Auto) (50.0-75.0) % Lymph % (Auto) (20.0-40.0) % [place] % (Auto) (0.0-10.0) % Eos % (Auto) (0.0-4.0) % Baso % (Auto) (0.0-2.0) % Neut # (1.8-7.0) K/uL Lymph # (1.0-4.3) K/uL [place] # (0.0-0.8) K/uL Eos # (0.0-0.7) K/uL Baso # (0.0-0.2) K/uL Puncture Site pCO2 (35-45) mm/Hg pO2 (80-100) mm/Hg HCO3 (21-28) mmol/L ABG pH (7.35-7.45) ABG Total CO2 (22-28) mmol/L ABG O2 Saturation (95-98) % ABG Base Excess (-2.0-3.0) mmol/L ABG Hemoglobin (11.7-17.4) g/dL ABG Carboxyhemoglobin (0.5-1.5) % POC ABG HHb (Measured) (0.0-5.0) % ABG Methemoglobin (0.0-3.0) % Daniel Test A-a O2 Difference mm/Hg Respiratory Index Hgb O2 Saturation (95.0-98.0) % Vent Mode Mechanical Rate FiO2 % Tidal Volume PEEP Sodium (132-148) mmol/L Potassium (3.6-5.2) mmol/L Chloride (98-107) mmol/L Carbon Dioxide (22-30) mmol/L Anion Gap (10-20) BUN (7-17) mg/dL Creatinine (0.7-1.2) mg/dL Est GFR ( Amer) Est GFR (Non-Af Amer) POC Glucose (mg/dL) 89 86 (65-110) mg/dL Random Glucose (65-105) mg/dL Calcium (8.6-10.4) mg/dl Phosphorus (2.5-4.5) mg/dL Magnesium (1.6-2.3) mg/dL Total Bilirubin (0.2-1.3) mg/dL AST (14-36) U/L ALT (9-52) U/L Alkaline Phosphatase (38-126) U/L Total Protein (6.3-8.3) g/dL Albumin (3.5-5.0) g/dL Globulin (2.2-3.9) gm/dL Albumin/Globulin Ratio (1.0-2.1) Laboratory Results - last 24 hr 04/22/17 04/22/17 04/23/17 17:50 23:39 05:32 WBC RBC Hgb Hct MCV MCH MCHC RDW Plt Count MPV Neut % (Auto) Lymph % (Auto) [place] % (Auto) Eos % (Auto) Baso % (Auto) Neut # Lymph # [place] # Eos # Baso # Puncture Site Rr pCO2 48 H pO2 90 HCO3 24.7 ABG pH 7.34 L ABG Total CO2 27.4 ABG O2 Saturation 98.0 ABG Base Excess -0.2 ABG Hemoglobin 9.5 L ABG Carboxyhemoglobin 1.7 H POC ABG HHb (Measured) 1.9 ABG Methemoglobin 1.6 Daniel Test Pos A-a O2 Difference 100.0 Respiratory Index 1.1 Hgb O2 Saturation 94.8 L Vent Mode Prvc Mechanical Rate 14 FiO2 35.0 Tidal Volume 450 PEEP 5 Sodium Potassium Chloride Carbon Dioxide Anion Gap BUN Creatinine Est GFR ( Amer) Est GFR (Non-Af Amer) POC Glucose (mg/dL) 86 89 Random Glucose Calcium Phosphorus Magnesium Total Bilirubin AST ALT Alkaline Phosphatase Total Protein Albumin Globulin Albumin/Globulin Ratio 04/23/17 04/23/17 04/23/17 05:36 05:41 06:29 WBC 18.5 H RBC 3.28 L Hgb 9.5 L Hct 29.1 L MCV 88.6 D MCH 29.1 MCHC 32.8 L RDW 15.7 H Plt Count 472 H MPV 8.6 Neut % (Auto) 72.3 Lymph % (Auto) 11.2 L [place] % (Auto) 10.5 H Eos % (Auto) 5.6 H Baso % (Auto) 0.4 Neut # 13.4 H Lymph # 2.1 [place] # 2.0 H Eos # 1.0 H Baso # 0.1 Puncture Site pCO2 pO2 HCO3 ABG pH ABG Total CO2 ABG O2 Saturation ABG Base Excess ABG Hemoglobin ABG Carboxyhemoglobin POC ABG HHb (Measured) ABG Methemoglobin Daniel Test A-a O2 Difference Respiratory Index Hgb O2 Saturation Vent Mode Mechanical Rate FiO2 Tidal Volume PEEP Sodium Potassium Chloride Carbon Dioxide Anion Gap BUN Creatinine Est GFR ( Amer) Est GFR (Non-Af Amer) POC Glucose (mg/dL) 39 L 102 Random Glucose Calcium Phosphorus Magnesium Total Bilirubin AST ALT Alkaline Phosphatase Total Protein Albumin Globulin Albumin/Globulin Ratio 04/23/17 04/23/17 06:29 11:58 WBC RBC Hgb Hct MCV MCH MCHC RDW Plt Count MPV Neut % (Auto) Lymph % (Auto) [place] % (Auto) Eos % (Auto) Baso % (Auto) Neut # Lymph # [place] # Eos # Baso # Puncture Site pCO2 pO2 HCO3 ABG pH ABG Total CO2 ABG O2 Saturation ABG Base Excess ABG Hemoglobin ABG Carboxyhemoglobin POC ABG HHb (Measured) ABG Methemoglobin Daniel Test A-a O2 Difference Respiratory Index Hgb O2 Saturation Vent Mode Mechanical Rate FiO2 Tidal Volume PEEP Sodium 135 Potassium 4.3 Chloride 104 Carbon Dioxide 22 Anion Gap 13 BUN 26 H Creatinine 3.1 H Est GFR ( Amer) 21 Est GFR (Non-Af Amer) 17 POC Glucose (mg/dL) 102 Random Glucose 91 Calcium 7.8 L Phosphorus 5.5 H Magnesium 1.8 Total Bilirubin 1.0 AST 35 ALT 15 Alkaline Phosphatase 171 H D Total Protein 5.9 L Albumin 2.7 L Globulin 3.2 Albumin/Globulin Ratio 0.9 L Fingerstick Blood Sugar Results: 102 Critical Care Progress Note - Nutrition Nutrition: Nutrition Category Date Time Status NPO Diet [DIET] Diets 04/08/17 Dinner Active Assessment/Plan - Assessment and Plan (Free Text) Assessment: 6F admitted with diarrhea,tachycardia,elevated WBC count ,lipase and lactic acid , 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 s/p boby en Y bypass, gastrojejunostomy with Tricia ileostomy placement. POD # 4 (04/18/17) Neuro: hx of Schizophrenia, patient has mental retardation and can speak some words based on observation seizure-like episodes x 2 04/20 04/20 Dr. Bedoya consulted for seizures 04/07 Dr. Bedoya consulted Psych Consult: Dr. Mccloud Midazolam 0.02mg/kg/hr Haloperidol 1mg IVP BID PRN Ativan 0.5mg IVP Q3H PRN Pain: Fentanyl 2mcg/kg/hr Nausea: Zofran 4mg Q6H PRN Thiamine 100mg PO QD Ascorbic Acid 500mg PO QD Psych: Psych Consult Dr. Mccloud: f/u 03/30 EKG to evaluate QTc Quetiapine (Seroquel) 200mg POBID, held d/t NGT on IWS, held awaiting Dr. Mccloud Recommendations Escitalopram (Lexapro) 10mg PO QD, held d/t NGT on IWS, held awaiting Dr. Mccloud Recommendations Cardio: Tachycardia 03/27 EKG Sinus tachycardia 138 bpm 03/30 EKG QTc 434, Sinus tachycardia at 153 bpm Diltiazem 125mg Q24hr @ 5mg/hr 04/08 Pulm: Aspiration pneumonia s/p EGD with intubation then extubation 03/27 AB.22, lactate 9.7 04/08 AB.50, CO2 24, O2 148, HCO3 22.9, lactate 1.0 03/27 CXR in infiltrates, no active pulmonary disease 03/30 CXR: poor inspiratory effort, areas suggestive of aspiration pneumonia 04/02: CT abdomen/pelvis/chest: pleural effusions, bilateral perihilar consolidations possibly due to multifocal pneumonia vs. atelectasis 04/04: CXR: Left lower lobe atelectasis/pneumonia and small left pleural effusion. Stable position of nasogastric tube and Dialysis catheter with one port Duoneb 04/17 CXR: mild vascular congestion 04/18 CXR: vascular congestion, poor inspiratory effort 04/19 CXR: vascular congestion, poor inspiratory effort Albuterol/Ipratropium 3cc INH RQ6H Endo: 03/28 Hemoglobin A1c 5.3 GI: Currently on PPN 03/28 Lipase 8456 03/29 Lipase 322 03/30 Lipase 64 03/30 GOBT positive 03/31 Pathology for Antrum biopsy from 03/29 EGD current biopsy negative for H pylori 04/01 f/u Dr. Harmon for repeat EGD., NGT 800 per nutrition consult: during dialysis Nepro goal rate 45cc/hr for 1080cc, 1944kcal, 87gm protein, and 785 cc free H2O Reglan 10 mg IVP q4h PRN 03/27 21:42 CT abdomen/pelvis with IV contrast: gastric distention 32cm and distention of the first and third and second portion of duodenum. Transition and complete decompression of third portion of duodenum. pancreas unremarkable, spleen unremarkable, partially contracted gallbladder. duodenal obstruction v delayed emptying v gastroparesis. Fluid distention of distal esophagus 3.3cm representing gastric emptying v gastroesophageal reflux. 03/27 CT abdomen/pelvis with IV contrast: significantly dilated stomach with retained food and fluid. significantly diminished prior to earlier CT 03/28. No free intraperitoneal gas identified. contrast noted in Gallbladder. 03/28 CT Chest/Abdomen/Pelvis: Left greater than right pleural effusion, bilateral perihilar consolidation. right more than left upper lobes and left more than right lower lobes. lingular consolidation representing multifocal pneumonia v. atelectasis versus mucous lugging and/or aspiration. interval worsening compared to prior exam 04/02 CT chest/abdomen/pelvis shows gastric distention 27cm, possible gastric pneumatosis, NGT at fundus with contrast fluid and gas level peripancreatic infiltration. gastric distension measuring 27 cm with possible gastric pneumatosis. intraperitoneal pelvic fluid with prominent surrounding peritoneal lining. Loculated ascites with peritoneal enhancement above spleen in retrogastric region. Lipase 320. 04/08 CT Chest/Abdomen/Pelvis: resolving acute pancreatitis, no residual peripancreatic fluid. 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 Distention of stomach due to gastric ileus. Ascites and loculated fluid posterior to the gastric fundus and cephalad to the spleen. Focal enteritis of proximal jejunum with mural thickening. Small left pleural effusion with left lower lobe compressive atelectasis. 04/14/17 CT Angio Abdomen/Pelvis:gastric distentions 27cm. gastric pneumatosis on image 66 through 73 series 6. NGT in fundus of stomach with contrast fluid and gas level. peripancreatic infiltration. left more than right large pleural effusions. bilateral perihilar consolidation. right more than left upper lobes and left more than right lower lobes lingular consolidation. Significant interval worsening when compared to prior examination 03/28/17. moderate intraperitoneal pelvic fluid with prominent surrounding peritoneal lining. Loculated peritoneal abscess secondary to contained gastric perforation 03/[address] connected to suction. 03/28 NGT OP since insertion: 2600cc 03/29 2350 03/30 NGT 1160 03/31 NGT 630 04/01 NGT 800 04/02 NGT 100 04/04 550, NGT removed by patient, Flexiseal removed by patient f/u Strict I/Os 04/10 NGT 3300 04/11 NGT 1200 04/12 NGT 700, with about 100cc of bright red sanguinous blood, with bilious component. 04/12 NGT off suction, clamped, patient continues to have red output to gravity. General Surgery Consult: Dr. Woodruff 03/[address] Harmon to have EGD today. 03/[address] Harmon, place patient on Reglan to help with motility. 03/30 Abdominal xray/obstructive series: minimal distention of stomach compared to previous imaging studies 03/31 Pathology for Antrum biopsy from 03/29 EGD current biopsy negative for H pylori 04/01 f/u Dr. Harmon for repeat EGD. 04/13 Dr. Lau repeat EGD: diffuse ulceration, large fibrous clot, repeat EGD scheduled 04/14 for re-evaluation, CT Angio ordered to evaluate for ischemia 04/13 NGT 280 cc 04/14 NGT 140cc over 24 hours 04/14 repeat EGD cancelled. continued supportive care by GI today 04/14 NGT 200cc 04/15 repeat EGD and PEJ tube insertion, could not be done due to inability to find a stable place for PEJ 04/18 Boby en Y bypass, gastrojejunostomy, Tricia ileostomy, drain insertion in LLQ by Dr. Mendez, no evidence of SMA compression of duodenum 04/19 LLQ drain 105 cc since insertion 04/19 RLQ ileostomy bag 320 cc since insertion Zofran 4mg IVP q6h PRN Reglan 10 mg IVP q4h PRN Renal: 03/27 UA: proteinuria f/u Strict I/Os, hourly UOP 40-60 24 Hour urine output 988 03/31 Potassium Phosphorus 15mmole @63cc/hr Patient is on dialysis and making urine. will monitor hourly output 04/20 BUN/Cr 30/3.6 04/21 BUN/Cr 37/3.9 04/22 BUN/Cr 22/2.8 : 03/27 UA: hazy, specific gravity >1.060, 3+ urine protein, Urine bacteria, Urine Yeast Ceftriaxone 1gm IVPB QD, discontinued 03/30 Urine Cx negative 04/08 UA: [place], UA pH 5.0, trace ketones, 1+ leukocyte esterase, specific gravity 1.030 04/08 urine random total protein 41.0 Urine random chloride 17 Urine random sodium 7 Heme: GI bleed H/H: 03/27 14.6/44.7 03/28 12.9/38.5 03/28 FOBT positive 03/29 11.2/33.0 03/30 GOBT positive 03/30 9.5/27.7 03/31 9.4/27.5 04/01 8.9/25.8 04/02 9.1/26.7 04/04 9.9/28.8 04/05 9.4/28.4 04/09/17 12 9.6/29.9 04/11 7.8/22.6 1 7.0/20.4 04/13 4.1/11.1 04/14 6.8/19.9 04/15 10.8/30.9 04/16 10.5/30.7 04/17 9.1/26.4 04/18 06:44 9.0/26.7 04/18 16:17 10.0, post Boby en y bypass, gastrojejunostomy, Tricia Ileostomy 04/19 9.0/26.7 04/20 8.7/25.8 04/21 7.0/21.7 04/22 8.7/26.3 04/23 9.5/29.1 MSK: Patient can walk per sister, but is dizzy so hasn't walked PT/OT eval ID: Sepsis Code sepsis 03/28 02:20, 03/28 lactate 9.7, 03/28 lactate 01:05 9.2, 03/28 lactate 06:15 1.3 Lactate is downtrending, normal Leukocytosis, downtrending WBC 04/21 13.2 04/22 17.5 04/23 04/20 procalcitonin 2.07 Code sepsis 03/28 02:20 03/30 blood Culture x 2, negative 03/30 MRSA screen negative 03/30 Urine Cx negative 04/02 Blood culture x2 negative Code sepsis called again today 04/08. Patient was febrile (102 rectally and tachycardic ~140s) BP was 100/70. Tovar inserted to monitor urine output (nurse to clean TID with betadine) WBC 36.1 elevating from 20s. 4 bands, platelets 707 diflucan ordered 04/20 Prophylaxis: GI: Protonix Q12H Zofran 4mg IVP Q6H PRN Nausea Tylenol 325mg RI Q4H PRN Fluids: LR @100cc/hr Diet: NPO 04/04 NGT removed by patient, Flexiseal removed by patient, Left PICC removed by patient. 04/05 Patient downgraded to Regular Bed 04/11 Patient has a femoral dialysis catheter 04/12 GI consulted for GI bleed, repeat EGD 04/13 patient to have dialysis today with 2 u PRBC transfusion. CTA of abdomen and pelvis today d/t possible ischemic changes due to diffuse ulcerations seen on EGD 04/14 Patient had 3 uPRBC yesterday (1 u after dialysis) Patient's hgb is 6.8 today. Will transfuse 1 u PRBC during extra dialysis session today. repeat EGD today 04/15 04/16 04/17 Patient underwent dialysis 04/18 Boby en Y ex lap and Tricia ileostomy placement. 04/19 Tube feeds 04/20 elevated temperature, yeast in urine, monitor, seizures x 2 episode 04/21 Dr. Bedoya on board, consulted for seizures. EEG ordered. 04/22 EEG yesterday cancelled by Dr. Bedoya, getting permacath today discussed with Dr. Najma Smith, DO PGY1
--- NOTE | 2017-04-23 16:45 | CP.PCM.PN ---
<Pari Smith - Last Filed: 04/23/17 16:47> Subjective - Date & Time of Evaluation Date of Evaluation: 04/23/17 Time of Evaluation: 16:48 - Subjective Subjective: Progress Note for Dr. Reyes Patient seen and examined at bedside sedated on precedex and fentanyl for pain. Patient on vent settings of PRVC 18, 450, 5, FiO2 35%. Patient is to have permacath on tuesday. No family at bedside. Patient continues to furrow brows in pain. Temperature 100.7 overnight. Objective - Vital Signs/Intake and Output Vital Signs (last 24 hours): Temp Pulse Resp BP Pulse Ox 99.2 F 116 H 18 99/62 L 99 04/23/17 15:20 04/23/17 15:54 04/23/17 15:54 04/23/17 16:20 04/23/17 15:54 Intake and Output: 04/23/17 04/23/17 06:59 18:59 Intake Total 1535.7 485.1 Output Total 1410 200 Balance 125.7 285.1 - Medications Medications: Current Medications Acetaminophen (Tylenol 650mg/20.3ml Solution Ud) 650 mg PO Q6 PRN PRN Reason: Temperature Last Admin: 04/21/17 21:41 Dose: 650 mg Acetaminophen (Tylenol 650 Mg Supp) 650 mg OR Q4 PRN PRN Reason: Fever >100.4 F Albuterol/Ipratropium (Duoneb 3 Mg/0.5 Mg (3 Ml) Ud) 3 ml INH RQ6 [facility] Last Admin: 04/23/17 13:16 Dose: 3 ml Ascorbic Acid (Vitamin C 500 Mg Tab) 500 mg PO DAILY [facility] Last Admin: 04/23/17 11:06 Dose: 500 mg Calcium Acetate (Phoslo) 667 mg PO BIDCC [facility] Haloperidol Lactate (Haldol) 1 mg IVP BID PRN PRN Reason: Agitation Last Admin: 04/17/17 00:00 Dose: 1 mg Hydromorphone HCl (Dilaudid) 1 mg IVP Q3 PRN PRN Reason: Pain, severe (8-10) Last Admin: 04/18/17 14:50 Dose: 1 mg Fluconazole (Diflucan Iv 200 Mg/100 Ml Ns) 100 mls @ 100 mls/hr IVPB DAILY [facility] Last Admin: 04/23/17 10:52 Dose: 100 mls/hr Vasopressin 40 units/ Sodium (Chloride) 40 mls @ 0.6 mls/hr IV .Q24H PRN; Protocol; 0.01 UNITS/MIN PRN Reason: TITRATE PER PROTOCOL Last Titration: 04/22/17 00:39 Dose: 0 units/min, 0 mls/hr Dexmedetomidine HCl 400 mcg/ (Sodium Chloride) 100 mls @ 3.4 mls/hr IV TITR PRN ; Protocol; 0.2 MCG/KG/HR PRN Reason: Agitation Last Admin: 04/23/17 10:51 Dose: 0.4 mcg/kg/hr, 6.8 mls/hr Fentanyl Citrate 2,500 mcg/ (Sodium Chloride) 250 mls @ 13.56 mls/hr IV .[id number] PRN; Protocol; 2 MCG/KG/HR PRN Reason: TITRATE PER MD ORDER Last Admin: 04/23/17 14:26 Dose: 4 mcg/kg/hr, 27.12 mls/hr Cefepime HCl (Maxipime Iv 1 Gm Premix) 1 gm in 50 mls @ 100 mls/hr IVPB Q24H [facility] Last Admin: 04/22/17 18:37 Dose: 100 mls/hr Vancomycin HCl 500 mg/ Sodium (Chloride) 100 mls @ 100 mls/hr IVPB MWF [facility] Last Admin: 04/22/17 09:54 Dose: 100 mls/hr Levetiracetam (Keppra) 250 mg PO BID [facility] Lorazepam (Ativan) 0.5 mg IVP Q3H PRN PRN Reason: Anxiety Last Admin: 04/23/17 11:06 Dose: 0.5 mg Lorazepam (Ativan) 2 mg IVP Q4H PRN PRN Reason: Seizure activity Last Admin: 04/23/17 15:55 Dose: 2 mg Ondansetron HCl (Zofran Inj) 4 mg IVP Q6H PRN PRN Reason: Nausea/Vomiting Last Admin: 04/11/17 21:39 Dose: 4 mg Pantoprazole Sodium (Protonix Inj) 20 mg IVP BID [facility] Last Admin: 04/23/17 11:07 Dose: 20 mg Saccharomyces Boulardii (Florastor) 250 mg PO BID [facility] Last Admin: 04/23/17 11:06 Dose: 250 mg Thiamine HCl (Vitamin B1 Tab) 100 mg PO DAILY [facility] Last Admin: 04/23/17 11:06 Dose: 100 mg - Labs Labs: 04/23/17 06:29 04/23/17 06:29 PT 13.5 SECONDS (9.7-12.2) H 04/22/17 06:11 INR 1.2 04/22/17 06:11 APTT 30 SECONDS (21-34) 04/22/17 06:11 Assessment and Plan - Assessment and Plan (Free Text) Assessment: 6F admitted with diarrhea,tachycardia,elevated WBC count ,lipase and lactic acid , 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 s/p boby en Y bypass, gastrojejunostomy with Tricia ileostomy placement. POD # 4 (04/18/17) Neuro: hx of Schizophrenia, patient has mental retardation and can speak some words based on observation seizure-like episodes x 2 04/20 04/20 Dr. Bedoya consulted for seizures 04/07 Dr. Bedoya consulted Psych Consult: Dr. Mccloud Midazolam 0.02mg/kg/hr Haloperidol 1mg IVP BID PRN Ativan 0.5mg IVP Q3H PRN Pain: Fentanyl 2mcg/kg/hr Nausea: Zofran 4mg Q6H PRN Thiamine 100mg PO QD Ascorbic Acid 500mg PO QD Psych: Psych Consult Dr. Mccloud: f/u 03/30 EKG to evaluate QTc Quetiapine (Seroquel) 200mg POBID, held d/t NGT on IWS, held awaiting Dr. Mccloud Recommendations Escitalopram (Lexapro) 10mg PO QD, held d/t NGT on IWS, held awaiting Dr. Mccloud Recommendations Cardio: Tachycardia 03/27 EKG Sinus tachycardia 138 bpm 03/30 EKG QTc 434, Sinus tachycardia at 153 bpm Diltiazem 125mg Q24hr @ 5mg/hr 04/08 Pulm: Aspiration pneumonia s/p EGD with intubation then extubation 03/27 AB.22, lactate 9.7 04/08 AB.50, CO2 24, O2 148, HCO3 22.9, lactate 1.0 03/27 CXR in infiltrates, no active pulmonary disease 03/30 CXR: poor inspiratory effort, areas suggestive of aspiration pneumonia 04/02: CT abdomen/pelvis/chest: pleural effusions, bilateral perihilar consolidations possibly due to multifocal pneumonia vs. atelectasis 04/04: CXR: Left lower lobe atelectasis/pneumonia and small left pleural effusion. Stable position of nasogastric tube and Dialysis catheter with one port Duoneb 04/17 CXR: mild vascular congestion 04/18 CXR: vascular congestion, poor inspiratory effort 04/19 CXR: vascular congestion, poor inspiratory effort 04/23 CXR: more vascular congestion than the previous CXR Albuterol/Ipratropium 3cc INH RQ6H Endo: 03/28 Hemoglobin A1c 5.3 GI: Currently on PPN 03/28 Lipase 8456 03/29 Lipase 322 03/30 Lipase 64 03/30 GOBT positive 03/31 Pathology for Antrum biopsy from 03/29 EGD current biopsy negative for H pylori 04/01 f/u Dr. Harmon for repeat EGD., NGT 800 per nutrition consult: during dialysis Nepro goal rate 45cc/hr for 1080cc, 1944kcal, 87gm protein, and 785 cc free H2O Reglan 10 mg IVP q4h PRN 03/27 21:42 CT abdomen/pelvis with IV contrast: gastric distention 32cm and distention of the first and third and second portion of duodenum. Transition and complete decompression of third portion of duodenum. pancreas unremarkable, spleen unremarkable, partially contracted gallbladder. duodenal obstruction v delayed emptying v gastroparesis. Fluid distention of distal esophagus 3.3cm representing gastric emptying v gastroesophageal reflux. 03/27 CT abdomen/pelvis with IV contrast: significantly dilated stomach with retained food and fluid. significantly diminished prior to earlier CT 03/28. No free intraperitoneal gas identified. contrast noted in Gallbladder. 03/28 CT Chest/Abdomen/Pelvis: Left greater than right pleural effusion, bilateral perihilar consolidation. right more than left upper lobes and left more than right lower lobes. lingular consolidation representing multifocal pneumonia v. atelectasis versus mucous lugging and/or aspiration. interval worsening compared to prior exam 04/02 CT chest/abdomen/pelvis shows gastric distention 27cm, possible gastric pneumatosis, NGT at fundus with contrast fluid and gas level peripancreatic infiltration. gastric distension measuring 27 cm with possible gastric pneumatosis. intraperitoneal pelvic fluid with prominent surrounding peritoneal lining. Loculated ascites with peritoneal enhancement above spleen in retrogastric region. Lipase 320. 04/08 CT Chest/Abdomen/Pelvis: resolving acute pancreatitis, no residual peripancreatic fluid. 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 Distention of stomach due to gastric ileus. Ascites and loculated fluid posterior to the gastric fundus and cephalad to the spleen. Focal enteritis of proximal jejunum with mural thickening. Small left pleural effusion with left lower lobe compressive atelectasis. 04/14/17 CT Angio Abdomen/Pelvis:gastric distentions 27cm. gastric pneumatosis on image 66 through 73 series 6. NGT in fundus of stomach with contrast fluid and gas level. peripancreatic infiltration. left more than right large pleural effusions. bilateral perihilar consolidation. right more than left upper lobes and left more than right lower lobes lingular consolidation. Significant interval worsening when compared to prior examination 03/28/17. moderate intraperitoneal pelvic fluid with prominent surrounding peritoneal lining. Loculated peritoneal abscess secondary to contained gastric perforation 03/[address] connected to suction. 03/28 NGT OP since insertion: 2600cc 03/29 2350 03/30 NGT 1160 03/31 NGT 630 04/01 NGT 800 04/02 NGT 100 04/04 550, NGT removed by patient, Flexiseal removed by patient f/u Strict I/Os 04/10 NGT 3300 04/11 NGT 1200 04/12 NGT 700, with about 100cc of bright red sanguinous blood, with bilious component. 04/12 NGT off suction, clamped, patient continues to have red output to gravity. General Surgery Consult: Dr. Woodruff 03/[address] Harmon to have EGD today. 03/[address] Harmon, place patient on Reglan to help with motility. 03/30 Abdominal xray/obstructive series: minimal distention of stomach compared to previous imaging studies 03/31 Pathology for Antrum biopsy from 03/29 EGD current biopsy negative for H pylori 04/01 f/u Dr. Harmon for repeat EGD. 04/13 Dr. Lau repeat EGD: diffuse ulceration, large fibrous clot, repeat EGD scheduled 04/14 for re-evaluation, CT Angio ordered to evaluate for ischemia 04/13 NGT 280 cc 04/14 NGT 140cc over 24 hours 04/14 repeat EGD cancelled. continued supportive care by GI today 04/14 NGT 200cc 04/15 repeat EGD and PEJ tube insertion, could not be done due to inability to find a stable place for PEJ 04/18 Boby en Y bypass, gastrojejunostomy, Tricia ileostomy, drain insertion in LLQ by Dr. Mendez, no evidence of SMA compression of duodenum Zofran 4mg IVP q6h PRN Reglan 10 mg IVP q4h PRN Renal: 03/27 UA: proteinuria f/u Strict I/Os, hourly UOP 40-60 24 Hour urine output 988 03/31 Potassium Phosphorus 15mmole @63cc/hr Patient is on dialysis and making urine. will monitor hourly output 04/20 BUN/Cr 30/3.6 04/21 BUN/Cr 37/3.9 04/22 BUN/Cr 22/2.8 04/23 BUN/Cr 26/3.1 : 03/27 UA: hazy, specific gravity >1.060, 3+ urine protein, Urine bacteria, Urine Yeast Ceftriaxone 1gm IVPB QD, discontinued 03/30 Urine Cx negative 04/08 UA: Ariadne, UA pH 5.0, trace ketones, 1+ leukocyte esterase, specific gravity 1.030 04/08 urine random total protein 41.0 Urine random chloride 17 Urine random sodium 7 Heme: GI bleed H/H: 03/27 14.6/44.7 03/28 12.9/38.5 03/28 FOBT positive 03/29 11.2/33.0 03/30 GOBT positive 03/30 9.5/27.7 03/31 9.4/27.5 04/01 8.9/25.8 04/02 9.1/26.7 04/04 9.9/28.8 04/05 9.4/28.4 04/09/1704/10 9.6/29.9 04/11 7.8/22.6 04/12 7.0/20.4 04/13 4.1/11.1 04/14 6.8/19.9 04/15 10.8/30.9 04/16 10.5/30.7 04/17 9.1/26.4 04/18 06:44 9.0/26.7 04/18 16:17 10.0, post Boby en y bypass, gastrojejunostomy, Tricia Ileostomy 04/19 9.0/26.7 04/20 8.7/25.8 04/21 7.0/21.7 04/22 8.7/26.3 04/23 9.5/29.1 MSK: Patient can walk per sister, but is dizzy so hasn't walked PT/OT eval ID: Sepsis Code sepsis 03/28 02:20, 03/28 lactate 9.7, 03/28 lactate 01:05 9.2, 03/28 lactate 06:15 1.3 Lactate is downtrending, normal Leukocytosis, downtrending WBC 04/21 13.2 04/20 15.7 04/20 14.4 04/21 13.2 04/22 17.5 04/20 procalcitonin 2.07 Code sepsis 03/28 02:20 03/30 blood Culture x 2, negative 03/30 MRSA screen negative 03/30 Urine Cx negative 04/02 Blood culture x2 negative Code sepsis called again today 04/08. Patient was febrile (102 rectally and tachycardic ~140s) BP was 100/70. Tovar inserted to monitor urine output (nurse to clean TID with betadine) WBC 36.1 elevating from 20s. 4 bands, platelets 707 diflucan ordered 04/20 Prophylaxis: GI: Protonix Q12H Zofran 4mg IVP Q6H PRN Nausea Tylenol 325mg OR Q4H PRN Fluids: LR @100cc/hr Diet: NPO 04/04 NGT removed by patient, Flexiseal removed by patient, Left PICC removed by patient. 04/05 Patient downgraded to Regular Bed 04/11 Patient has a femoral dialysis catheter 04/12 GI consulted for GI bleed, repeat EGD 04/13 patient to have dialysis today with 2 u PRBC transfusion. CTA of abdomen and pelvis today d/t possible ischemic changes due to diffuse ulcerations seen on EGD 04/14 Patient had 3 uPRBC yesterday (1 u after dialysis) Patient's hgb is 6.8 today. Will transfuse 1 u PRBC during extra dialysis session today. repeat EGD today 1/5 1/6 1/7 Patient underwent dialysis 04/18 Boby en Y ex lap and Tricia ileostomy placement. 04/19 Tube feeds 04/20 elevated temperature, yeast in urine, monitor, seizures x 2 episode 04/21 Dr. Bedoya on board, consulted for seizures. EEG ordered. 04/22 EEG yesterday cancelled by Dr. Bedoya, permacath rescheduled to 04/23 permacath for tuesday, f/u Neuro recs, repeat blood and urine cultures when temp >101.[address] Amy Smith, DO PGY1 <Mauri Reyes Jr. - Last Filed: 05/05/17 19:06> Objective - Vital Signs/Intake and Output Vital Signs (last 24 hours): Temp Pulse Resp BP Pulse Ox 99.2 F 116 H 16 99/69 L 100 05/05/17 16:00 05/05/17 17:00 05/05/17 17:00 05/05/17 14:10 05/05/17 17:00 Intake and Output: 05/05/17 05/06/17 18:59 06:59 Intake Total 2171.3 Output Total 1310 Balance 861.3 - Medications Medications: Current Medications Acetaminophen (Tylenol 650mg/20.3ml Solution Ud) 650 mg PO Q4 PRN PRN Reason: Temperature Last Admin: 05/02/17 02:00 Dose: 650 mg Fluconazole (Diflucan Iv 200 Mg/100 Ml Ns) 100 mls @ 100 mls/hr IVPB DAILY [facility] Last Admin: 05/05/17 10:58 Dose: 100 mls/hr Cefepime HCl 1 gm/ Dextrose 50 mls @ 100 mls/hr IVPB DAILY [facility] Last Admin: 05/05/17 10:58 Dose: 100 mls/hr Levetiracetam 500 mg/ Sodium (Chloride) 105 mls @ 420 mls/hr IVPB Q12H [facility] Last Admin: 05/05/17 10:58 Dose: 420 mls/hr Propofol (Diprivan) 1,000 mg in 100 mls @ 1.905 mls/hr IV .Q24H PRN; Protocol; 5 MCG/KG/MIN PRN Reason: TITRATE PER MD ORDER Last Admin: 05/05/17 01:15 Dose: 15 mcg/kg/min, 5.716 mls/hr Linezolid (Zyvox 600mg/300ml D5w) 600 mg in 300 mls @ 200 mls/hr IVPB Q12 [facility] Last Admin: 05/05/17 10:59 Dose: 200 mls/hr Potassium Chloride/Dextrose/Sod Cl (Potassium Chl 20 Meq In D5-1/2ns) 1,000 mls @ 60 mls/hr IV .[id number] [facility] Last Admin: 05/05/17 18:40 Dose: Not Given Lorazepam (Ativan) 0.5 mg IVP Q6H PRN PRN Reason: Anxiety Metoprolol Tartrate (Lopressor) 5 mg IVP Q6H [facility] Last Admin: 05/05/17 18:40 Dose: Not Given Metoprolol Tartrate (Lopressor) 50 mg PO BID [facility] Last Admin: 05/05/17 18:39 Dose: 50 mg Multivitamins/Vitamin C (Multi-Delyn Liquid) 5 ml PO DAILY [facility] Last Admin: 05/05/17 10:59 Dose: 5 ml Pantoprazole Sodium (Protonix Inj) 20 mg IVP BID [facility] Last Admin: 05/05/17 18:39 Dose: 20 mg Quetiapine Fumarate (Seroquel) 200 mg PO BID [facility] Last Admin: 05/05/17 18:39 Dose: 200 mg - Labs Labs: 05/05/17 06:29 05/05/17 06:28 PT 14.0 SECONDS (9.7-12.2) H 04/25/17 06:25 INR 1.2 04/25/17 06:25 APTT 32 SECONDS (21-34) 04/25/17 06:25 Attending/Attestation - Attestation I have personally seen and examined this patient.: Yes I have fully participated in the care of the patient.: Yes I have reviewed all pertinent clinical information, including history, physical exam and plan: Yes Notes (Text): 05/05/17 19:06 Agree with resident note and plan of care
[2017-04-23] MEDS: Cefepime IV 1 gm in Dextrose 1 GM/50 ML BAG IVPB SCH (19:12)
--- NOTE | 2017-04-23 20:49 | CP.PCM.PN ---
Subjective - Date & Time of Evaluation Date of Evaluation: 04/21/17 Time of Evaluation: 18:25 - Subjective Subjective: Patient seen and evaluated Intubated Post op Tachycardia cardizem PRN Physical Exam - Constitutional Appears: In Acute Distress, Agitated, Chronically Ill - Head Exam Head Exam: ATRAUMATIC, NORMAL INSPECTION - Eye Exam Eye Exam: EOMI, Normal appearance - Neck Exam Neck exam: Positive for: Normal Inspection. Negative for: Tenderness - Respiratory Exam Respiratory Exam: Decreased Breath Sounds, NORMAL BREATHING PATTERN - Cardiovascular Exam Cardiovascular Exam: Tachycardia, +S1 - GI/Abdominal Exam GI & Abdominal Exam: Soft, Tenderness - Extremities Exam Extremities exam: Positive for: normal inspection. Negative for: tenderness - Neurological Exam Neurological exam: Altered, CN II-XII Intact - Skin Skin Exam: Dry, Warm Objective - Vital Signs/Intake and Output Vital Signs (last 24 hours): Temp Pulse Resp BP Pulse Ox 97.3 F L 102 H 18 99/70 L 84 L 04/23/17 18:20 04/23/17 19:30 04/23/17 19:30 04/23/17 19:30 04/23/17 19:30 Intake and Output: 04/23/17 04/24/17 18:59 06:59 Intake Total 1055.9 Output Total 1020 Balance 35.9 - Medications Medications: Current Medications Acetaminophen (Tylenol 650mg/20.3ml Solution Ud) 650 mg PO Q6 PRN PRN Reason: Temperature Last Admin: 04/21/17 21:41 Dose: 650 mg Acetaminophen (Tylenol 650 Mg Supp) 650 mg IN Q4 PRN PRN Reason: Fever >100.4 F Albuterol/Ipratropium (Duoneb 3 Mg/0.5 Mg (3 Ml) Ud) 3 ml INH RQ6 [facility] Last Admin: 04/23/17 20:03 Dose: 3 ml Ascorbic Acid (Vitamin C 500 Mg Tab) 500 mg PO DAILY [facility] Last Admin: 04/23/17 11:06 Dose: 500 mg Calcium Acetate (Phoslo) 667 mg PO BIDCC [facility] Last Admin: 04/23/17 17:55 Dose: 667 mg Haloperidol Lactate (Haldol) 1 mg IVP BID PRN PRN Reason: Agitation Last Admin: 04/17/17 00:00 Dose: 1 mg Hydromorphone HCl (Dilaudid) 1 mg IVP Q3 PRN PRN Reason: Pain, severe (8-10) Last Admin: 04/18/17 14:50 Dose: 1 mg Fluconazole (Diflucan Iv 200 Mg/100 Ml Ns) 100 mls @ 100 mls/hr IVPB DAILY [facility] Last Admin: 04/23/17 10:52 Dose: 100 mls/hr Vasopressin 40 units/ Sodium (Chloride) 40 mls @ 0.6 mls/hr IV .Q24H PRN; Protocol; 0.01 UNITS/MIN PRN Reason: TITRATE PER PROTOCOL Last Titration: 04/22/17 00:39 Dose: 0 units/min, 0 mls/hr Dexmedetomidine HCl 400 mcg/ (Sodium Chloride) 100 mls @ 3.4 mls/hr IV TITR PRN ; Protocol; 0.2 MCG/KG/HR PRN Reason: Agitation Last Admin: 04/23/17 10:51 Dose: 0.4 mcg/kg/hr, 6.8 mls/hr Fentanyl Citrate 2,500 mcg/ (Sodium Chloride) 250 mls @ 13.56 mls/hr IV .[id number] PRN; Protocol; 2 MCG/KG/HR PRN Reason: TITRATE PER MD ORDER Last Admin: 04/23/17 14:26 Dose: 4 mcg/kg/hr, 27.12 mls/hr Cefepime HCl (Maxipime Iv 1 Gm Premix) 1 gm in 50 mls @ 100 mls/hr IVPB Q24H [facility] Last Admin: 04/23/17 19:12 Dose: 100 mls/hr Vancomycin HCl 500 mg/ Sodium (Chloride) 100 mls @ 100 mls/hr IVPB MWF [facility] [place] Last Admin: 04/22/17 09:54 Dose: 100 mls/hr Levetiracetam (Keppra) 250 mg PO BID [facility] Last Admin: 04/23/17 18:36 Dose: 250 mg Lorazepam (Ativan) 0.5 mg IVP Q3H PRN PRN Reason: Anxiety Last Admin: 04/23/17 11:06 Dose: 0.5 mg Lorazepam (Ativan) 2 mg IVP Q4H PRN PRN Reason: Seizure activity Last Admin: 04/23/17 15:55 Dose: 2 mg Ondansetron HCl (Zofran Inj) 4 mg IVP Q6H PRN PRN Reason: Nausea/Vomiting Last Admin: 04/11/17 21:39 Dose: 4 mg Pantoprazole Sodium (Protonix Inj) 20 mg IVP BID [facility] Last Admin: 04/23/17 18:36 Dose: 20 mg Saccharomyces Boulardii (Florastor) 250 mg PO BID [facility] Last Admin: 04/23/17 18:35 Dose: 250 mg Thiamine HCl (Vitamin B1 Tab) 100 mg PO DAILY [facility] Last Admin: 04/23/17 11:06 Dose: 100 mg - Labs Labs: 04/23/17 06:29 04/23/17 06:29 PT 13.5 SECONDS (9.7-12.2) H 04/22/17 06:11 INR 1.2 04/22/17 06:11 APTT 30 SECONDS (21-34) 04/22/17 06:11 Assessment and Plan - Assessment and Plan (Free Text) Assessment: Assessment & Plan - Assessment and Plan (Free Text) Assessment: Tachycardia JIMBO Acute pancreatitis Volume depletion Sepsis syndrome Intra-abdominal fluid collection- possible abscess Plan: ECHO: Normal EF and no valvular issues Tachycardia most likely due to medical issues Cardizem drip/PO as needed
--- NOTE | 2017-04-23 20:50 | CP.PCM.PN ---
Subjective - Date & Time of Evaluation Date of Evaluation: 04/22/17 Time of Evaluation: 10:35 - Subjective Subjective: Patient seen and evaluated Intubated Post op Tachycardia cardizem PRN Physical Exam - Constitutional Appears: In Acute Distress, Agitated, Chronically Ill - Head Exam Head Exam: ATRAUMATIC, NORMAL INSPECTION - Eye Exam Eye Exam: EOMI, Normal appearance - Neck Exam Neck exam: Positive for: Normal Inspection. Negative for: Tenderness - Respiratory Exam Respiratory Exam: Decreased Breath Sounds, NORMAL BREATHING PATTERN - Cardiovascular Exam Cardiovascular Exam: Tachycardia, +S1 - GI/Abdominal Exam GI & Abdominal Exam: Soft, Tenderness - Extremities Exam Extremities exam: Positive for: normal inspection. Negative for: tenderness - Neurological Exam Neurological exam: Altered, CN II-XII Intact - Skin Skin Exam: Dry, Warm Objective - Vital Signs/Intake and Output Vital Signs (last 24 hours): Temp Pulse Resp BP Pulse Ox 97.3 F L 102 H 18 99/70 L 84 L 04/23/17 18:20 04/23/17 19:30 04/23/17 19:30 04/23/17 19:30 04/23/17 19:30 Intake and Output: 04/23/17 04/24/17 18:59 06:59 Intake Total 1055.9 Output Total 1020 Balance 35.9 - Medications Medications: Current Medications Acetaminophen (Tylenol 650mg/20.3ml Solution Ud) 650 mg PO Q6 PRN PRN Reason: Temperature Last Admin: 04/21/17 21:41 Dose: 650 mg Acetaminophen (Tylenol 650 Mg Supp) 650 mg [place] Q4 PRN PRN Reason: Fever >100.4 F Albuterol/Ipratropium (Duoneb 3 Mg/0.5 Mg (3 Ml) Ud) 3 ml INH RQ6 [facility] Last Admin: 04/23/17 20:03 Dose: 3 ml Ascorbic Acid (Vitamin C 500 Mg Tab) 500 mg PO DAILY [facility] Last Admin: 04/23/17 11:06 Dose: 500 mg Calcium Acetate (Phoslo) 667 mg PO BIDCC [facility] Last Admin: 04/23/17 17:55 Dose: 667 mg Haloperidol Lactate (Haldol) 1 mg IVP BID PRN PRN Reason: Agitation Last Admin: 04/17/17 00:00 Dose: 1 mg Hydromorphone HCl (Dilaudid) 1 mg IVP Q3 PRN PRN Reason: Pain, severe (8-10) Last Admin: 04/18/17 14:50 Dose: 1 mg Fluconazole (Diflucan Iv 200 Mg/100 Ml Ns) 100 mls @ 100 mls/hr IVPB DAILY [facility] Last Admin: 04/23/17 10:52 Dose: 100 mls/hr Vasopressin 40 units/ Sodium (Chloride) 40 mls @ 0.6 mls/hr IV .Q24H PRN; Protocol; 0.01 UNITS/MIN PRN Reason: TITRATE PER PROTOCOL Last Titration: 04/22/17 00:39 Dose: 0 units/min, 0 mls/hr Dexmedetomidine HCl 400 mcg/ (Sodium Chloride) 100 mls @ 3.4 mls/hr IV TITR PRN ; Protocol; 0.2 MCG/KG/HR PRN Reason: Agitation Last Admin: 04/23/17 10:51 Dose: 0.4 mcg/kg/hr, 6.8 mls/hr Fentanyl Citrate 2,500 mcg/ (Sodium Chloride) 250 mls @ 13.56 mls/hr IV .[id number] PRN; Protocol; 2 MCG/KG/HR PRN Reason: TITRATE PER MD ORDER Last Admin: 04/23/17 14:26 Dose: 4 mcg/kg/hr, 27.12 mls/hr Cefepime HCl (Maxipime Iv 1 Gm Premix) 1 gm in 50 mls @ 100 mls/hr IVPB Q24H [facility] Last Admin: 04/23/17 19:12 Dose: 100 mls/hr Vancomycin HCl 500 mg/ Sodium (Chloride) 100 mls @ 100 mls/hr IVPB MWF [facility] Last Admin: 04/22/17 09:54 Dose: 100 mls/hr Levetiracetam (Keppra) 250 mg PO BID [facility] Last Admin: 04/23/17 18:36 Dose: 250 mg Lorazepam (Ativan) 0.5 mg IVP Q3H PRN PRN Reason: Anxiety Last Admin: 04/23/17 11:06 Dose: 0.5 mg Lorazepam (Ativan) 2 mg IVP Q4H PRN PRN Reason: Seizure activity Last Admin: 04/23/17 15:55 Dose: 2 mg Ondansetron HCl (Zofran Inj) 4 mg IVP Q6H PRN PRN Reason: Nausea/Vomiting Last Admin: 04/11/17 21:39 Dose: 4 mg Pantoprazole Sodium (Protonix Inj) 20 mg IVP BID [facility] Last Admin: 04/23/17 18:36 Dose: 20 mg Saccharomyces Boulardii (Florastor) 250 mg PO BID [facility] Last Admin: 04/23/17 18:35 Dose: 250 mg Thiamine HCl (Vitamin B1 Tab) 100 mg PO DAILY [facility] Last Admin: 04/23/17 11:06 Dose: 100 mg - Labs Labs: 04/23/17 06:29 04/23/17 06:29 PT 13.5 SECONDS (9.7-12.2) H 04/22/17 06:11 INR 1.2 04/22/17 06:11 APTT 30 SECONDS (21-34) 04/22/17 06:11 Assessment and Plan - Assessment and Plan (Free Text) Assessment: Assessment & Plan - Assessment and Plan (Free Text) Assessment: Tachycardia JIMBO Acute pancreatitis Volume depletion Sepsis syndrome Intra-abdominal fluid collection- possible abscess Plan: ECHO: Normal EF and no valvular issues Tachycardia most likely due to medical issues Cardizem drip/PO as needed
[2017-04-23] MEDS: Acetaminophen 650mg/20.3ml solution UD PO PRN (23:57)
[2017-04-24] MEDS: Albuterol-Ipratrop 3 mg / 0.5 (3 ml) UD INH SCH ×4 (01:08→20:03)
[2017-04-24 04:53] LABS: ARTERIAL BLOOD GAS HCO3 27.5 mmol/L (21-28); ARTERIAL BLOOD GAS HEMOGLOBIN 8.8 g/dL (11.7-17.4); ARTERIAL BLOOD GAS O2 SAT 99.4 % (95-98); ARTERIAL BLOOD GAS PCO2 32 mm/Hg (35-45); ARTERIAL BLOOD GAS PH 7.52 (7.35-7.45); ARTERIAL BLOOD GAS PO2 204 mm/Hg (80-100); ARTERIAL BLOOD GAS TCO2 27.1 mmol/L (22-28)
[2017-04-24 04:55] LABS: BASO # 0.1 K/uL (0.0-0.2); BASO % 0.6 % (0.0-2.0); EOS # 0.7 K/uL (0.0-0.7); EOS % 4.2 % (0.0-4.0); HEMOGLOBIN 9.4 g/dL (11.0-16.0); LYMPH # 1.6 K/uL (1.0-4.3); MEAN CELL VOLUME 85.4 fL (81.0-99.0); MEAN CORPUSCULAR HEMOGLOBIN 28.1 pg (27.0-31.0); MEAN CORPUSCULAR HGB CONC 32.9 g/dL (33.0-37.0); MEAN PLATELET VOLUME 8.2 fL (7.2-11.7); MONO # 1.6 K/uL (0.0-0.8); MONO % 10.1 % (0.0-10.0); NEUT # 12.2 K/uL (1.8-7.0); NEUT % 75.1 % (50.0-75.0); RBC 3.34 Mil/uL (3.80-5.20); RED CELL DISTRIBUTION WIDTH 15.1 % (11.5-14.5); WHITE BLOOD COUNT 16.3 K/uL (4.8-10.8)
[2017-04-24 05:22] LABS: ALB/GLOB RATIO 0.9 (1.0-2.1); ALBUMIN 2.9 g/dL (3.5-5.0)
--- NOTE | 2017-04-24 06:46 | CON ---
DATE: REQUESTING PHYSICIAN: Mauri Reyes MD. UROLOGY CONSULTATION FILLED BY: Zoe García MD. REASON FOR CONSULTATION: Hematuria. HISTORY OF PRESENT ILLNESS: Patient is a 36-year-old female with hematuria. Patient has an indwelling Tovar catheter. She was admitted to the hospital, was in the ICU. Catheter was indwelling to monitor the urine output. Patient has had intestinal obstruction. 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 The patient has had no history of urolithiasis. No recent hematuria prior to the Tovar catheter. The patient had a traumatic self-catheter removal. Thereafter, she has had blood per urethra. The Tovar catheter has subsequently been reinserted at the time of her surgery on 04/18/2017. Tovar catheter was inserted without difficulty. The patient has had previous laparotomy, gastrojejunostomy, as well as feeding jejunostomy. PHYSICAL EXAMINATION: GENERAL: Patient is now postop day 1 in the ICU. The patient is sedated at present. ABDOMEN: Soft, nondistended. Dressing is intact. The urine is clear via the Tovar catheter. IMPRESSION: A 36-year-old female with previous hematuria following traumatic Tovar catheter removal. RECOMMENDATIONS AND PLAN: Monitor urine output. Catheter removal when it is no longer needed. Monitor the urine output as closely at present. Possible need for further urologic evaluation. I recommend obtaining a urinalysis and urine culture. Further therapy to follow according to patient's clinical course as well as all the above. Thank you for recommending the patient for urology consultation. Zoe García MD cc: Mauri Reyes MD
--- NOTE | 2017-04-24 07:52 | CP.PCM.PN ---
Subjective - Date & Time of Evaluation Date of Evaluation: 04/24/17 Time of Evaluation: 07:54 - Subjective Subjective: General Surgery Dr. Mendez Pt S&E @bedside. Febrile overnight w/ Tmax 101.8F. currently febrile at 101. Improved tachycardia. Pt intubated and sedated on morphine drip and precidex. Vent settings: 18/450/5/35% Objective - Vital Signs/Intake and Output Vital Signs (last 24 hours): Temp Pulse Resp BP Pulse Ox 100.8 F H 114 H 18 117/76 100 04/24/17 04:00 04/24/17 07:30 04/24/17 07:30 04/24/17 07:30 04/24/17 07:30 Intake and Output: 04/24/17 04/24/17 06:59 18:59 Intake Total 777.9 58.5 Output Total 925 50 Balance -147.1 8.5 - Medications Medications: Current Medications Acetaminophen (Tylenol 650mg/20.3ml Solution Ud) 650 mg PO Q6 PRN PRN Reason: Temperature Last Admin: 04/23/17 23:57 Dose: 650 mg Acetaminophen (Tylenol 650 Mg Supp) 650 mg [place] Q4 PRN PRN Reason: Fever >100.4 F Albuterol/Ipratropium (Duoneb 3 Mg/0.5 Mg (3 Ml) Ud) 3 ml INH RQ6 [facility] Last Admin: 04/24/17 07:41 Dose: 3 ml Ascorbic Acid (Vitamin C 500 Mg Tab) 500 mg PO DAILY [facility] Last Admin: 04/23/17 11:06 Dose: 500 mg Calcium Acetate (Phoslo) 667 mg PO BIDCC [facility] Last Admin: 04/23/17 17:55 Dose: 667 mg Haloperidol Lactate (Haldol) 1 mg IVP BID PRN PRN Reason: Agitation Last Admin: 04/17/17 00:00 Dose: 1 mg Hydromorphone HCl (Dilaudid) 1 mg IVP Q3 PRN PRN Reason: Pain, severe (8-10) Last Admin: 04/18/17 14:50 Dose: 1 mg Fluconazole (Diflucan Iv 200 Mg/100 Ml Ns) 100 mls @ 100 mls/hr IVPB DAILY [facility] Last Admin: 04/23/17 10:52 Dose: 100 mls/hr Vasopressin 40 units/ Sodium (Chloride) 40 mls @ 0.6 mls/hr IV .Q24H PRN; Protocol; 0.01 UNITS/MIN PRN Reason: TITRATE PER PROTOCOL Last Titration: 04/22/17 00:39 Dose: 0 units/min, 0 mls/hr Dexmedetomidine HCl 400 mcg/ (Sodium Chloride) 100 mls @ 3.4 mls/hr IV TITR PRN ; Protocol; 0.2 MCG/KG/HR PRN Reason: Agitation Last Titration: 04/24/17 06:07 Dose: 1.08 mcg/kg/hr, 18.5 mls/hr Cefepime HCl (Maxipime Iv 1 Gm Premix) 1 gm in 50 mls @ 100 mls/hr IVPB Q24H [facility] Last Admin: 04/23/17 19:12 Dose: 100 mls/hr Vancomycin HCl 500 mg/ Sodium (Chloride) 100 mls @ 100 mls/hr IVPB MWF [facility] Last Admin: 04/22/17 09:54 Dose: 100 mls/hr Morphine Sulfate 250 mg/ (Sodium Chloride) 250 mls @ 0 mls/hr IV .Q0M PRN; Per Protocol PRN Reason: Protocol Last Titration: 04/24/17 04:40 Dose: 10 ml/hr, 10 mls/hr Levetiracetam (Keppra) 250 mg PO BID [facility] Last Admin: 04/23/17 18:36 Dose: 250 mg Lorazepam (Ativan) 0.5 mg IVP Q3H PRN PRN Reason: Anxiety Last Admin: 04/23/17 11:06 Dose: 0.5 mg Lorazepam (Ativan) 2 mg IVP Q4H PRN PRN Reason: Seizure activity Last Admin: 04/23/17 15:55 Dose: 2 mg Ondansetron HCl (Zofran Inj) 4 mg IVP Q6H PRN PRN Reason: Nausea/Vomiting Last Admin: 04/11/17 21:39 Dose: 4 mg Pantoprazole Sodium (Protonix Inj) 20 mg IVP BID [facility] Last Admin: 04/23/17 18:36 Dose: 20 mg Saccharomyces Boulardii (Florastor) 250 mg PO BID [facility] Last Admin: 04/23/17 18:35 Dose: 250 mg Thiamine HCl (Vitamin B1 Tab) 100 mg PO DAILY [facility] Last Admin: 04/23/17 11:06 Dose: 100 mg - Labs Labs: 04/24/17 04:50 04/24/17 04:50 PT 13.5 SECONDS (9.7-12.2) H 04/22/17 06:11 INR 1.2 04/22/17 06:11 APTT 30 SECONDS (21-34) 04/22/17 06:11 - Constitutional Appears: Non-toxic, No Acute Distress, Agitated - Head Exam Head Exam: NORMAL INSPECTION - Eye Exam Eye Exam: Normal appearance - ENT Exam ENT Exam: Mucous Membranes Moist Additional comments: NGT/ETT in place - Respiratory Exam Respiratory Exam: NORMAL BREATHING PATTERN (mechanical ventilation). absent: Accessory Muscle Use, Respiratory Distress - Cardiovascular Exam Cardiovascular Exam: Tachycardia - GI/Abdominal Exam GI & Abdominal Exam: Guarding, Soft, Tenderness (wilfredo-incisional). absent: Distended, Rigid Additional comments: dressing stained ostomy appliance loose - Extremities Exam Extremities Exam: Normal Inspection - Neurological Exam Neurological Exam: Altered - Psychiatric Exam Psychiatric exam: Agitated - Skin Skin Exam: Dry, Normal Color, Warm Assessment and Plan - Assessment and Plan (Free Text) Assessment: 36 y/o F POD#6 s/p ex-lap, gastrojejunostomy w/ jejunostomy tube now w/ renal failure requiring dialysis - permacath to be placed Tuesday - resident dressing change in AM; nursing dressing changes PRN - cont tube feeds via J tube (do not need to be held for surgery) - strict Is & Os - monitor bowel fxn - cont medical management per PMD/Critical Care - GI/DVT PPx Pt discussed w/ Dr. Andrea Peterson DO PGY2
[2017-04-24] MEDS: Dexmedetomidine Hydrochloride 400 MCG in Sodium Chloride 0.9% 96 ML IV PRN ×4 (08:32→21:15)
--- NOTE | 2017-04-24 08:49 | RAD ---
HISTORY: Intubation COMPARISON: Multiple serial examinations preceding the most recent study: April 23, 2017. Time of the most recent examination: 07:13. FINDINGS: LUNGS: Substantial improvement in pulmonary edema. PLEURA: Small pleural effusions bilaterally CARDIOVASCULAR: No significant interval change compared to the prior examination(s). OSSEOUS STRUCTURES: No significant abnormalities. VISUALIZED UPPER ABDOMEN: Normal. OTHER FINDINGS: Satisfactory position of endotracheal tube and nasogastric tube without interval change. IMPRESSION: Marked improvement in multifocal airspace disease/ pulmonary edema.
[2017-04-24] MEDS: Saccharomyces Boulardi 250 mg Cap PO SCH ×2 (09:43→17:08)
[2017-04-24] MEDS: Fluconazole IV 200mg/100 ml NS 100 ML IVPB SCH (09:43)
--- NOTE | 2017-04-24 10:21 | CP.PCM.PN ---
Subjective - Date & Time of Evaluation Date of Evaluation: 04/24/17 Time of Evaluation: 10:20 - Subjective Subjective: Ms. Rivera was seen and examined at the bedside in ICU. She remains on mechanical ventilation with GCS-4T. She is currently on morphine at 10 mg/hr and Precedeex 1.4 mcg/kg/hr. She has bilateral hand mittens on for patient safety. She moves all extremities spontaneously. Her CT of the head without contrast 04/22/17 showed no acute intracranial abnormality.She has an episode of febrile with tmax 101.5, tylenol was given. Objective - Vital Signs/Intake and Output Vital Signs (last 24 hours): Temp Pulse Resp BP Pulse Ox 100.1 F H 112 H 18 116/77 100 04/24/17 08:00 04/24/17 10:00 04/24/17 10:00 04/24/17 09:30 04/24/17 10:00 Intake and Output: 04/24/17 04/24/17 06:59 18:59 Intake Total 777.9 222.1 Output Total 925 150 Balance -147.1 72.1 - Medications Medications: Current Medications Acetaminophen (Tylenol 650mg/20.3ml Solution Ud) 650 mg PO Q6 PRN PRN Reason: Temperature Last Admin: 04/23/17 23:57 Dose: 650 mg Acetaminophen (Tylenol 650 Mg Supp) 650 mg [place] Q4 PRN PRN Reason: Fever >100.4 F Albuterol/Ipratropium (Duoneb 3 Mg/0.5 Mg (3 Ml) Ud) 3 ml INH RQ6 [facility] Last Admin: 04/24/17 07:41 Dose: 3 ml Ascorbic Acid (Vitamin C 500 Mg Tab) 500 mg PO DAILY [facility] Last Admin: 04/24/17 09:43 Dose: 500 mg Calcium Acetate (Phoslo) 667 mg PO BIDCC [facility] Last Admin: 04/24/17 08:33 Dose: 667 mg Haloperidol Lactate (Haldol) 1 mg IVP BID PRN PRN Reason: Agitation Last Admin: 04/17/17 00:00 Dose: 1 mg Hydromorphone HCl (Dilaudid) 1 mg IVP Q3 PRN PRN Reason: Pain, severe (8-10) Last Admin: 04/24/17 08:11 Dose: 1 mg Fluconazole (Diflucan Iv 200 Mg/100 Ml Ns) 100 mls @ 100 mls/hr IVPB DAILY [facility] Last Admin: 04/24/17 09:43 Dose: 100 mls/hr Vasopressin 40 units/ Sodium (Chloride) 40 mls @ 0.6 mls/hr IV .Q24H PRN; Protocol; 0.01 UNITS/MIN PRN Reason: TITRATE PER PROTOCOL Last Titration: 04/22/17 00:39 Dose: 0 units/min, 0 mls/hr Dexmedetomidine HCl 400 mcg/ (Sodium Chloride) 100 mls @ 3.4 mls/hr IV TITR PRN ; Protocol; 0.2 MCG/KG/HR PRN Reason: Agitation Last Admin: 04/24/17 08:32 Dose: 1.4 mcg/kg/hr, 23.8 mls/hr Cefepime HCl (Maxipime Iv 1 Gm Premix) 1 gm in 50 mls @ 100 mls/hr IVPB Q24H [facility] Last Admin: 04/23/17 19:12 Dose: 100 mls/hr Vancomycin HCl 500 mg/ Sodium (Chloride) 100 mls @ 100 mls/hr IVPB MWF [facility] Last Admin: 04/22/17 09:54 Dose: 100 mls/hr Morphine Sulfate 250 mg/ (Sodium Chloride) 250 mls @ 0 mls/hr IV .Q0M PRN; Per Protocol PRN Reason: Protocol Last Titration: 04/24/17 04:40 Dose: 10 ml/hr, 10 mls/hr Levetiracetam (Keppra) 250 mg PO BID [facility] Last Admin: 04/24/17 09:44 Dose: 250 mg Lorazepam (Ativan) 0.5 mg IVP Q3H PRN PRN Reason: Anxiety Last Admin: 04/23/17 11:06 Dose: 0.5 mg Lorazepam (Ativan) 2 mg IVP Q4H PRN PRN Reason: Seizure activity Last Admin: 04/23/17 15:55 Dose: 2 mg Ondansetron HCl (Zofran Inj) 4 mg IVP Q6H PRN PRN Reason: Nausea/Vomiting Last Admin: 04/11/17 21:39 Dose: 4 mg Pantoprazole Sodium (Protonix Inj) 20 mg IVP BID [facility] Last Admin: 04/24/17 09:42 Dose: 20 mg Saccharomyces Boulardii (Florastor) 250 mg PO BID [facility] Last Admin: 04/24/17 09:43 Dose: 250 mg Thiamine HCl (Vitamin B1 Tab) 100 mg PO DAILY [facility] Last Admin: 04/24/17 09:44 Dose: 100 mg - Labs Labs: 04/24/17 04:50 04/24/17 04:50 PT 13.5 SECONDS (9.7-12.2) H 04/22/17 06:11 INR 1.2 04/22/17 06:11 APTT 30 SECONDS (21-34) 04/22/17 06:11 - Constitutional Appears: No Acute Distress - Head Exam Head Exam: NORMAL INSPECTION - Eye Exam Additional comments: patient refused to open her eyes for assessment and fights to close her eyes. - Neurological Exam Neuro motor strength exam: Left Upper Extremity: 3, Right Upper Extremity: 3, Left Lower Extremity: 3, Right Lower Extremity: 3 Additional comments: GCS-4T Assessment and Plan (1) Focal seizure Assessment & Plan: Case discussed with Dr. Bryant, continue all current medical regimen. Pending EEG. Status: Acute
[2017-04-24] MEDS: Acetaminophen 650mg/20.3ml solution UD PO PRN (12:14)
--- NOTE | 2017-04-24 14:52 | CP.PCM.PN ---
Subjective - Date & Time of Evaluation Date of Evaluation: 04/24/17 Time of Evaluation: 08:00 - Subjective Subjective: 36 y/o F POD#6 s/p ex-lap, gastrojejunostomy w/ jejunostomy tube now w/ renal failure requiring dialysis intubated sedated recent fevers noted no new cultures Objective - Vital Signs/Intake and Output Vital Signs (last 24 hours): Temp Pulse Resp BP Pulse Ox 102.2 F H 110 H 19 103/69 98 04/24/17 13:06 04/24/17 13:00 04/24/17 13:00 04/24/17 12:30 04/24/17 13:00 Intake and Output: 04/24/17 04/24/17 06:59 18:59 Intake Total 777.9 797.3 Output Total 925 460 Balance -147.1 337.3 - Medications Medications: Current Medications Acetaminophen (Tylenol 650mg/20.3ml Solution Ud) 650 mg PO Q6 PRN PRN Reason: Temperature Last Admin: 04/24/17 12:14 Dose: 650 mg Acetaminophen (Tylenol 650 Mg Supp) 650 mg [place] Q4 PRN PRN Reason: Fever >100.4 F Albuterol/Ipratropium (Duoneb 3 Mg/0.5 Mg (3 Ml) Ud) 3 ml INH RQ6 [facility] Last Admin: 04/24/17 13:37 Dose: 3 ml Ascorbic Acid (Vitamin C 500 Mg Tab) 500 mg PO DAILY [facility] Last Admin: 04/24/17 09:43 Dose: 500 mg Calcium Acetate (Phoslo) 667 mg PO BIDCC [facility] Last Admin: 04/24/17 08:33 Dose: 667 mg Haloperidol Lactate (Haldol) 1 mg IVP BID PRN PRN Reason: Agitation Last Admin: 04/17/17 00:00 Dose: 1 mg Hydromorphone HCl (Dilaudid) 1 mg IVP Q3 PRN PRN Reason: Pain, severe (8-10) Last Admin: 04/24/17 08:11 Dose: 1 mg Fluconazole (Diflucan Iv 200 Mg/100 Ml Ns) 100 mls @ 100 mls/hr IVPB DAILY [facility] Last Admin: 04/24/17 09:43 Dose: 100 mls/hr Vasopressin 40 units/ Sodium (Chloride) 40 mls @ 0.6 mls/hr IV .Q24H PRN; Protocol; 0.01 UNITS/MIN PRN Reason: TITRATE PER PROTOCOL Last Titration: 04/22/17 00:39 Dose: 0 units/min, 0 mls/hr Dexmedetomidine HCl 400 mcg/ (Sodium Chloride) 100 mls @ 3.4 mls/hr IV TITR PRN ; Protocol; 0.2 MCG/KG/HR PRN Reason: Agitation Last Admin: 04/24/17 12:42 Dose: 1.4 mcg/kg/hr, 23.8 mls/hr Cefepime HCl (Maxipime Iv 1 Gm Premix) 1 gm in 50 mls @ 100 mls/hr IVPB Q24H [facility] Last Admin: 04/23/17 19:12 Dose: 100 mls/hr Vancomycin HCl 500 mg/ Sodium (Chloride) 100 mls @ 100 mls/hr IVPB MWF [facility] Last Admin: 04/22/17 09:54 Dose: 100 mls/hr Morphine Sulfate 250 mg/ (Sodium Chloride) 250 mls @ 0 mls/hr IV .Q0M PRN; Per Protocol PRN Reason: Protocol Last Titration: 04/24/17 04:40 Dose: 10 ml/hr, 10 mls/hr Levetiracetam (Keppra) 250 mg PO BID [facility] Last Admin: 04/24/17 09:44 Dose: 250 mg Lorazepam (Ativan) 0.5 mg IVP Q3H PRN PRN Reason: Anxiety Last Admin: 04/23/17 11:06 Dose: 0.5 mg Lorazepam (Ativan) 2 mg IVP Q4H PRN PRN Reason: Seizure activity Last Admin: 04/23/17 15:55 Dose: 2 mg Ondansetron HCl (Zofran Inj) 4 mg IVP Q6H PRN PRN Reason: Nausea/Vomiting Last Admin: 04/11/17 21:39 Dose: 4 mg Pantoprazole Sodium (Protonix Inj) 20 mg IVP BID [facility] Last Admin: 04/24/17 09:42 Dose: 20 mg Saccharomyces Boulardii (Florastor) 250 mg PO BID [facility] Last Admin: 04/24/17 09:43 Dose: 250 mg Thiamine HCl (Vitamin B1 Tab) 100 mg PO DAILY [facility] Last Admin: 04/24/17 09:44 Dose: 100 mg - Labs Labs: 04/24/17 04:50 04/24/17 04:50 PT 13.5 SECONDS (9.7-12.2) H 04/22/17 06:11 INR 1.2 04/22/17 06:11 APTT 30 SECONDS (21-34) 04/22/17 06:11 - Constitutional Appears: Non-toxic - Head Exam Head Exam: NORMOCEPHALIC - Eye Exam Eye Exam: PERRL - ENT Exam ENT Exam: absent: Mucous Membranes Dry - Neck Exam Neck Exam: absent: Lymphadenopathy - Respiratory Exam Respiratory Exam: Decreased Breath Sounds - Cardiovascular Exam Cardiovascular Exam: REGULAR RHYTHM - GI/Abdominal Exam GI & Abdominal Exam: Distended. absent: Soft - Rectal Exam Rectal Exam: Deferred - Exam Exam: NORMAL INSPECTION - Extremities Exam Extremities Exam: absent: Pedal Edema - Back Exam Back Exam: absent: CVA tenderness (L), CVA tenderness (R) - Neurological Exam Neurological Exam: Altered - Psychiatric Exam Psychiatric exam: Depressed - Skin Skin Exam: Dry Assessment and Plan (1) Acute pancreatitis Status: Acute (2) Leucocytosis Status: Acute - Assessment and Plan (Free Text) Assessment: 36 y/o F POD#6 s/p ex-lap, gastrojejunostomy w/ jejunostomy tube now w/ renal failure requiring dialysis fever on and off for permacath in am Merrem d/c'd due to seizures
--- NOTE | 2017-04-24 15:27 | CP.PCM.PN ---
<Pari Smith - Last Filed: 04/24/17 15:35> Subjective - Date & Time of Evaluation Date of Evaluation: 04/24/17 Time of Evaluation: 15:26 - Subjective Subjective: Progress Note for Dr. Reyes Patient seen and examined at bedside sedated on precedex and fentanyl for pain. Patient on vent settings of PRVC 18, 450, 5, FiO2 35%. Patient is to have permacath on tuesday. No family at bedside. Patient continues to furrow brows in pain. Fever 102.6, cooling blankets given, dressings changed at bedside by surgery team. Patient had blood and urine cultures drawn today. Objective - Vital Signs/Intake and Output Vital Signs (last 24 hours): Temp Pulse Resp BP Pulse Ox 102.2 F H 110 H 19 103/69 98 04/24/17 13:06 04/24/17 13:00 04/24/17 13:00 04/24/17 12:30 04/24/17 13:00 Intake and Output: 04/24/17 04/24/17 06:59 18:59 Intake Total 777.9 797.3 Output Total 925 460 Balance -147.1 337.3 - Medications Medications: Current Medications Acetaminophen (Tylenol 650mg/20.3ml Solution Ud) 650 mg PO Q6 PRN PRN Reason: Temperature Last Admin: 04/24/17 12:14 Dose: 650 mg Acetaminophen (Tylenol 650 Mg Supp) 650 mg MA Q4 PRN PRN Reason: Fever >100.4 F Albuterol/Ipratropium (Duoneb 3 Mg/0.5 Mg (3 Ml) Ud) 3 ml INH RQ6 [facility] Last Admin: 04/24/17 13:37 Dose: 3 ml Ascorbic Acid (Vitamin C 500 Mg Tab) 500 mg PO DAILY [facility] Last Admin: 04/24/17 09:43 Dose: 500 mg Calcium Acetate (Phoslo) 667 mg PO BIDCC [facility] Last Admin: 04/24/17 08:33 Dose: 667 mg Haloperidol Lactate (Haldol) 1 mg IVP BID PRN PRN Reason: Agitation Last Admin: 04/17/17 00:00 Dose: 1 mg Hydromorphone HCl (Dilaudid) 1 mg IVP Q3 PRN PRN Reason: Pain, severe (8-10) Last Admin: 04/24/17 08:11 Dose: 1 mg Fluconazole (Diflucan Iv 200 Mg/100 Ml Ns) 100 mls @ 100 mls/hr IVPB DAILY [facility] Last Admin: 04/24/17 09:43 Dose: 100 mls/hr Vasopressin 40 units/ Sodium (Chloride) 40 mls @ 0.6 mls/hr IV .Q24H PRN; Protocol; 0.01 UNITS/MIN PRN Reason: TITRATE PER PROTOCOL Last Titration: 04/22/17 00:39 Dose: 0 units/min, 0 mls/hr Dexmedetomidine HCl 400 mcg/ (Sodium Chloride) 100 mls @ 3.4 mls/hr IV TITR PRN ; Protocol; 0.2 MCG/KG/HR PRN Reason: Agitation Last Admin: 04/24/17 12:42 Dose: 1.4 mcg/kg/hr, 23.8 mls/hr Cefepime HCl (Maxipime Iv 1 Gm Premix) 1 gm in 50 mls @ 100 mls/hr IVPB Q24H [facility] Last Admin: 04/23/17 19:12 Dose: 100 mls/hr Vancomycin HCl 500 mg/ Sodium (Chloride) 100 mls @ 100 mls/hr IVPB MWF [facility] Last Admin: 04/22/17 09:54 Dose: 100 mls/hr Morphine Sulfate 250 mg/ (Sodium Chloride) 250 mls @ 0 mls/hr IV .Q0M PRN; Per Protocol PRN Reason: Protocol Last Titration: 04/24/17 04:40 Dose: 10 ml/hr, 10 mls/hr Metronidazole (Flagyl) 500 mg in 100 mls @ 100 mls/hr IVPB Q8 [facility] Levetiracetam (Keppra) 250 mg PO BID [facility] Last Admin: 04/24/17 09:44 Dose: 250 mg Lorazepam (Ativan) 0.5 mg IVP Q3H PRN PRN Reason: Anxiety Last Admin: 04/23/17 11:06 Dose: 0.5 mg Lorazepam (Ativan) 2 mg IVP Q4H PRN PRN Reason: Seizure activity Last Admin: 04/23/17 15:55 Dose: 2 mg Ondansetron HCl (Zofran Inj) 4 mg IVP Q6H PRN PRN Reason: Nausea/Vomiting Last Admin: 04/11/17 21:39 Dose: 4 mg Pantoprazole Sodium (Protonix Inj) 20 mg IVP BID [facility] Last Admin: 04/24/17 09:42 Dose: 20 mg Saccharomyces Boulardii (Florastor) 250 mg PO BID [facility] Last Admin: 04/24/17 09:43 Dose: 250 mg Thiamine HCl (Vitamin B1 Tab) 100 mg PO DAILY [facility] Last Admin: 04/24/17 09:44 Dose: 100 mg - Labs Labs: 04/24/17 04:50 04/24/17 04:50 PT 13.5 SECONDS (9.7-12.2) H 04/22/17 06:11 INR 1.2 04/22/17 06:11 APTT 30 SECONDS (21-34) 04/22/17 06:11 Assessment and Plan - Assessment and Plan (Free Text) Assessment: 6F admitted with diarrhea,tachycardia,elevated WBC count ,lipase and lactic acid , 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 s/p boby en Y bypass, gastrojejunostomy with Tricia ileostomy placement. POD # 4 (04/18/17) Neuro: hx of Schizophrenia, patient has mental retardation and can speak some words based on observation seizure-like episodes x 2 04/20 04/20 Dr. Bedoya consulted for seizures 04/07 Dr. Bedoya consulted Psych Consult: Dr. Mccloud Midazolam 0.02mg/kg/hr Haloperidol 1mg IVP BID PRN Ativan 0.5mg IVP Q3H PRN Pain: Fentanyl 2mcg/kg/hr Nausea: Zofran 4mg Q6H PRN Thiamine 100mg PO QD Ascorbic Acid 500mg PO QD Psych: Psych Consult Dr. Mccloud: f/u 03/30 EKG to evaluate QTc Quetiapine (Seroquel) 200mg POBID, held d/t NGT on IWS, held awaiting Dr. Mccloud Recommendations Escitalopram (Lexapro) 10mg PO QD, held d/t NGT on IWS, held awaiting Dr. Mccloud Recommendations Cardio: Tachycardia 03/27 EKG Sinus tachycardia 138 bpm 03/30 EKG QTc 434, Sinus tachycardia at 153 bpm Diltiazem 125mg Q24hr @ 5mg/hr 04/08 Pulm: Aspiration pneumonia s/p EGD with intubation then extubation 03/27 AB.22, lactate 9.7 04/08 AB.50, CO2 24, O2 148, HCO3 22.9, lactate 1.0 03/27 CXR in infiltrates, no active pulmonary disease 03/30 CXR: poor inspiratory effort, areas suggestive of aspiration pneumonia 04/02: CT abdomen/pelvis/chest: pleural effusions, bilateral perihilar consolidations possibly due to multifocal pneumonia vs. atelectasis 04/04: CXR: Left lower lobe atelectasis/pneumonia and small left pleural effusion. Stable position of nasogastric tube and Dialysis catheter with one port Duoneb 04/17 CXR: mild vascular congestion 04/18 CXR: vascular congestion, poor inspiratory effort 04/19 CXR: vascular congestion, poor inspiratory effort 04/23 CXR: more vascular congestion than the previous CXR Albuterol/Ipratropium 3cc INH RQ6H Endo: 03/28 Hemoglobin A1c 5.3 GI: Currently on PPN 03/28 Lipase 8456 03/29 Lipase 322 03/30 Lipase 64 03/30 GOBT positive 03/31 Pathology for Antrum biopsy from 03/29 EGD current biopsy negative for H pylori 04/01 f/u Dr. Harmon for repeat EGD., NGT 800 per nutrition consult: during dialysis Nepro goal rate 45cc/hr for 1080cc, 1944kcal, 87gm protein, and 785 cc free H2O Reglan 10 mg IVP q4h PRN 03/27 21:42 CT abdomen/pelvis with IV contrast: gastric distention 32cm and distention of the first and third and second portion of duodenum. Transition and complete decompression of third portion of duodenum. pancreas unremarkable, spleen unremarkable, partially contracted gallbladder. duodenal obstruction v delayed emptying v gastroparesis. Fluid distention of distal esophagus 3.3cm representing gastric emptying v gastroesophageal reflux. 03/27 CT abdomen/pelvis with IV contrast: significantly dilated stomach with retained food and fluid. significantly diminished prior to earlier CT 03/28. No free intraperitoneal gas identified. contrast noted in Gallbladder. 03/28 CT Chest/Abdomen/Pelvis: Left greater than right pleural effusion, bilateral perihilar consolidation. right more than left upper lobes and left more than right lower lobes. lingular consolidation representing multifocal pneumonia v. atelectasis versus mucous lugging and/or aspiration. interval worsening compared to prior exam 04/02 CT chest/abdomen/pelvis shows gastric distention 27cm, possible gastric pneumatosis, NGT at fundus with contrast fluid and gas level peripancreatic infiltration. gastric distension measuring 27 cm with possible gastric pneumatosis. intraperitoneal pelvic fluid with prominent surrounding peritoneal lining. Loculated ascites with peritoneal enhancement above spleen in retrogastric region. Lipase 320. 04/08 CT Chest/Abdomen/Pelvis: resolving acute pancreatitis, no residual peripancreatic fluid. 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 Distention of stomach due to gastric ileus. Ascites and loculated fluid posterior to the gastric fundus and cephalad to the spleen. Focal enteritis of proximal jejunum with mural thickening. Small left pleural effusion with left lower lobe compressive atelectasis. 04/14/17 CT Angio Abdomen/Pelvis:gastric distentions 27cm. gastric pneumatosis on image 66 through 73 series 6. NGT in fundus of stomach with contrast fluid and gas level. peripancreatic infiltration. left more than right large pleural effusions. bilateral perihilar consolidation. right more than left upper lobes and left more than right lower lobes lingular consolidation. Significant interval worsening when compared to prior examination 03/28/17. moderate intraperitoneal pelvic fluid with prominent surrounding peritoneal lining. Loculated peritoneal abscess secondary to contained gastric perforation 03/[address] connected to suction. 03/28 NGT OP since insertion: 2600cc 03/29 2350 03/30 NGT 1160 03/31 NGT 630 04/01 NGT 800 04/02 NGT 100 04/04 550, NGT removed by patient, Flexiseal removed by patient f/u Strict I/Os 04/10 NGT 3300 04/11 NGT 1200 04/12 NGT 700, with about 100cc of bright red sanguinous blood, with bilious component. 04/12 NGT off suction, clamped, patient continues to have red output to gravity. General Surgery Consult: Dr. Woodruff 03/[address] Harmon to have EGD today. 03/[address] Harmon, place patient on Reglan to help with motility. 03/30 Abdominal xray/obstructive series: minimal distention of stomach compared to previous imaging studies 03/31 Pathology for Antrum biopsy from 03/29 EGD current biopsy negative for H pylori 04/01 f/u Dr. Harmon for repeat EGD. 04/13 Dr. Lau repeat EGD: diffuse ulceration, large fibrous clot, repeat EGD scheduled 04/14 for re-evaluation, CT Angio ordered to evaluate for ischemia 04/13 NGT 280 cc 04/14 NGT 140cc over 24 hours 04/14 repeat EGD cancelled. continued supportive care by GI today 04/14 NGT 200cc 04/15 repeat EGD and PEJ tube insertion, could not be done due to inability to find a stable place for PEJ 04/18 Boby en Y bypass, gastrojejunostomy, Tricia ileostomy, drain insertion in LLQ by Dr. Mendez, no evidence of SMA compression of duodenum Zofran 4mg IVP q6h PRN Reglan 10 mg IVP q4h PRN Renal: 03/27 UA: proteinuria f/u Strict I/Os, UOP 24 hour 1540 average hourly output 50cc/hr 03/31 Potassium Phosphorus 15mmole @63cc/hr Patient is on dialysis and making urine. will monitor hourly output BUN/Cr downtrendin/2.6 : 03/27 UA: hazy, specific gravity >1.060, 3+ urine protein, Urine bacteria, Urine Yeast Ceftriaxone 1gm IVPB QD, discontinued 03/30 Urine Cx negative 04/08 UA: [place], UA pH 5.0, trace ketones, 1+ leukocyte esterase, specific gravity 1.030 04/08 urine random total protein 41.0 Urine random chloride 17 Urine random sodium 7 Heme: GI bleed H/H: 03/28 FOBT positive 03/30 GOBT positive 04/18 16:17 10.0, post Boby en y bypass, gastrojejunostomy, Tricia Ileostomy Hgb stable MSK: Patient can walk per sister, but is dizzy so hasn't walked PT/OT eval ID: Sepsis Code sepsis 03/28 02:20, 03/28 lactate 9.7, 03/28 lactate 01:05 9.2, 03/28 lactate 06:15 1.3 Lactate is downtrending, normal Leukocytosis, downtrending WBC 04/24 16.3, downtrending 04/20 procalcitonin 2.07 Code sepsis 03/28 02:20 03/30 blood Culture x 2, negative 03/30 MRSA screen negative 03/30 Urine Cx negative 04/02 Blood culture x2 negative Code sepsis called again today 04/08. Patient was febrile (102 rectally and tachycardic ~140s) BP was 100/70. Tovar inserted to monitor urine output (nurse to clean TID with betadine) WBC 36.1 elevating from 20s. 4 bands, platelets 707 diflucan ordered 04/20 Prophylaxis: GI: Protonix Q12H Zofran 4mg IVP Q6H PRN Nausea Tylenol 325mg MA Q4H PRN Fluids: LR @100cc/hr Diet: NPO 04/04 NGT removed by patient, Flexiseal removed by patient, Left PICC removed by patient. 04/05 Patient downgraded to Regular Bed 04/11 Patient has a femoral dialysis catheter 04/12 GI consulted for GI bleed, repeat EGD 04/13 patient to have dialysis today with 2 u PRBC transfusion. CTA of abdomen and pelvis today d/t possible ischemic changes due to diffuse ulcerations seen on EGD 04/14 Patient had 3 uPRBC yesterday (1 u after dialysis) Patient's hgb is 6.8 today. Will transfuse 1 u PRBC during extra dialysis session today. repeat EGD today 04/15 04/16 04/17 Patient underwent dialysis 04/18 Boby en Y ex lap and Tricia ileostomy placement. 04/19 Tube feeds 04/20 elevated temperature, yeast in urine, monitor, seizures x 2 episode 04/21 Dr. Bedoya on board, consulted for seizures. EEG ordered. 04/22 EEG yesterday cancelled by Dr. Bedoya, permacath rescheduled to 04/23 permacath for tuesday, f/u Neuro recs, repeat blood and urine cultures when temp >101.5 04/24 f/u new blood cultures, LLQ 150cc from daryl drain serosanguinous, RLQ 5cc from jejunostomy bag, serosanguinous discussed with Dr. Amy Smith, DO PGY1 <Mauri Reyes Jr. - Last Filed: 05/05/17 19:09> Objective - Vital Signs/Intake and Output Vital Signs (last 24 hours): Temp Pulse Resp BP Pulse Ox 99.2 F 116 H 16 99/69 L 100 05/05/17 16:00 05/05/17 17:00 05/05/17 17:00 05/05/17 14:10 05/05/17 17:00 Intake and Output: 05/05/17 05/06/17 18:59 06:59 Intake Total 2171.3 Output Total 1310 Balance 861.3 - Medications Medications: Current Medications Acetaminophen (Tylenol 650mg/20.3ml Solution Ud) 650 mg PO Q4 PRN PRN Reason: Temperature Last Admin: 05/02/17 02:00 Dose: 650 mg Fluconazole (Diflucan Iv 200 Mg/100 Ml Ns) 100 mls @ 100 mls/hr IVPB DAILY [facility] Last Admin: 05/05/17 10:58 Dose: 100 mls/hr Cefepime HCl 1 gm/ Dextrose 50 mls @ 100 mls/hr IVPB DAILY [facility] Last Admin: 05/05/17 10:58 Dose: 100 mls/hr Levetiracetam 500 mg/ Sodium (Chloride) 105 mls @ 420 mls/hr IVPB Q12H [facility] Last Admin: 05/05/17 10:58 Dose: 420 mls/hr Propofol (Diprivan) 1,000 mg in 100 mls @ 1.905 mls/hr IV .Q24H PRN; Protocol; 5 MCG/KG/MIN PRN Reason: TITRATE PER MD ORDER Last Admin: 05/05/17 01:15 Dose: 15 mcg/kg/min, 5.716 mls/hr Linezolid (Zyvox 600mg/300ml D5w) 600 mg in 300 mls @ 200 mls/hr IVPB Q12 [facility] Last Admin: 05/05/17 10:59 Dose: 200 mls/hr Potassium Chloride/Dextrose/Sod Cl (Potassium Chl 20 Meq In D5-1/2ns) 1,000 mls @ 60 mls/hr IV .[id number] [facility] Last Admin: 05/05/17 18:40 Dose: Not Given Lorazepam (Ativan) 0.5 mg IVP Q6H PRN PRN Reason: Anxiety Metoprolol Tartrate (Lopressor) 5 mg IVP Q6H [facility] Last Admin: 05/05/17 18:40 Dose: Not Given Metoprolol Tartrate (Lopressor) 50 mg PO BID [facility] Last Admin: 05/05/17 18:39 Dose: 50 mg Multivitamins/Vitamin C (Multi-Delyn Liquid) 5 ml PO DAILY [facility] Last Admin: 05/05/17 10:59 Dose: 5 ml Pantoprazole Sodium (Protonix Inj) 20 mg IVP BID [facility] Last Admin: 05/05/17 18:39 Dose: 20 mg Quetiapine Fumarate (Seroquel) 200 mg PO BID [facility] Last Admin: 05/05/17 18:39 Dose: 200 mg - Labs Labs: 05/05/17 06:29 05/05/17 06:28 PT 14.0 SECONDS (9.7-12.2) H 04/25/17 06:25 INR 1.2 04/25/17 06:25 APTT 32 SECONDS (21-34) 04/25/17 06:25 Attending/Attestation - Attestation I have personally seen and examined this patient.: Yes I have fully participated in the care of the patient.: Yes I have reviewed all pertinent clinical information, including history, physical exam and plan: Yes Notes (Text): 05/05/17 19:08 Agree with the resident note and plan of care
--- NOTE | 2017-04-24 17:28 | CP.CCUPN ---
CCU Subjective - Physician Review Events Since Last Encounter (Free Text): 04/24/17 17:26 36-year-old female with psychiatric problem. Patient usually nonverbal, unable to communicate with her properly. Admitted with paralytic stomach and gastric distension and proximal ileus s/p surgery Postoperatively patient intubated, still on ventilator. Having difficulty in extubation, because of the tachycardia, tachypnea, and episodes of unstable vital signs. There is also episodes of seizure activity is, currently on medications. Patient is currently receiving feedings via jejunostomy tube, but still not clear whether she is tolerating. Patient is receiving hemodialysis, is currently on hold, as the patient is making urine, and being closely watched, and the patient may need a dialysis home. unable to wean, patient becomes more tachycardic, heart rate 150, respiration is 50. And also patient become hypoxic. She also has a thick secretions from the endotracheal tube. X-ray of the chest showing right lung pneumonia. With all the complications, in my opinion patient will need a tracheostomy tube. The tracheostomy tube is a possibility, increasing mobilization, and the weaning possible. Discussed with the family. Multiple consultants patient is being seen by. may need trach I spoke to family today CCU Objective - Vital Signs / Intake & Output Vital Signs (Last 4 hours): Vital Signs Temp Pulse Resp BP Pulse Ox 04/24/17 16:30 100 H 18 92/58 L 100 04/24/17 16:03 113 H 18 104/64 100 04/24/17 16:00 102.3 F H 114 H 16 99 04/24/17 15:30 104 H 18 96/63 L 100 04/24/17 15:00 105 H 18 100 04/24/17 14:30 143 H 18 98/63 L 100 04/24/17 14:18 127 H 18 99/65 L 99 04/24/17 14:00 111 H 18 100 04/24/17 13:30 101 H 18 97/66 L 100 Intake and Output (Last 8hrs): Intake & Output 04/24/17 04/24/17 04/24/17 06:59 14:59 22:59 Intake Total 449.3 861.1 352.6 Output Total 650 490 300 Balance -200.7 371.1 52.6 Weight 155 lb Intake: IV 89 136 225 Intake, IV Amount 120.3 365.1 67.6 Right Femoral 50 80 20 Right Medial Port Femoral 100 Rt Femoral 70.3 185.1 47.6 Tube Feeding 240 240 60 Other 120 Output: Gastric Amount 250 100 Right Nares 250 100 Drainage 40 10 30 Left Lower Abdomen 40 10 30 Right Lower Abdomen 0 0 Urine 360 380 270 Urethral (Tovar) 360 380 270 Other: # Bowel Movements 0 - Physical Exam Head: Positive for: Atraumatic, Normocephalic. Negative for: Tenderness Pupils: Positive for: PERRL Extroacular Muscles: Positive for: EOMI Mouth: Positive for: Moist Mucous Membranes. Negative for: Dry, Drooling Nose (External): Positive for: Other (NGT in place) Nose (Internal): Positive for: Normal Inspection, Moist Neck: Positive for: Normal Range of Motion. Negative for: JVD, Lymphadenopathy Respiratory/Chest: Positive for: Clear to Auscultation. Negative for: Respiratory Distress, Accessory Muscle Use Cardiovascular: Positive for: Regular Rate and Rhythm, Normal S1, S2 Abdomen: Positive for: Tenderness (mild tenderness of palpation. patient continues to move her arms towards hands on palpation). Negative for: Distention, Guarding Upper Extremity: Positive for: Normal Inspection, Normal ROM, Capillary Refill < 2s. Negative for: Edema Lower Extremity: Positive for: Normal Inspection. Negative for: Edema Neurological: Positive for: CN II-XII Intact Skin: Positive for: Warm, Pale Psychiatric: Positive for: Alert - Medications Active Medications: Active Medications Generic Name Dose Route Start Last Admin Trade Name Freq PRN Reason Stop Dose Admin Acetaminophen 650 mg 04/20/17 09:08 04/24/17 12:14 Tylenol 650mg/20.3ml Solution Ud PO 650 mg Q6 PRN Administration Temperature Acetaminophen 650 mg 04/20/17 10:17 Tylenol 650 Mg Supp ME Q4 PRN Fever >100.4 F Albuterol/Ipratropium 3 ml 04/18/17 14:00 04/24/17 13:37 Duoneb 3 Mg/0.5 Mg (3 Ml) Ud INH 3 ml RQ6 AGUSTIN Administration Ascorbic Acid 500 mg 04/08/17 12:30 04/24/17 09:43 Vitamin C 500 Mg Tab PO 500 mg DAILY AGUSTIN Administration Calcium Acetate 667 mg 04/23/17 17:00 04/24/17 17:15 Phoslo PO 667 mg BIDCC AGUSTIN Administration Haloperidol Lactate 1 mg 03/29/17 18:47 04/17/17 00:00 Haldol IVP 1 mg BID PRN Administration Agitation Hydromorphone HCl 1 mg 04/17/17 07:16 04/24/17 08:11 Dilaudid IVP 1 mg Q3 PRN Administration Pain, severe (8-10) Fluconazole 100 mls @ 100 mls/hr 04/21/17 10:00 04/24/17 09:43 Diflucan Iv 200 Mg/100 Ml Ns IVPB 100 mls/hr DAILY AGUSTIN Administration Vasopressin 40 units/ Sodium 40 mls @ 0.6 mls/hr 04/21/17 09:30 04/22/17 00: 39 Chloride IV 0 units/min .Q24H PRN 0 mls/hr TITRATE PER PROTOCOL Titration Protocol 0.01 UNITS/MIN Dexmedetomidine HCl 400 mcg/ 100 mls @ 3.4 mls/hr 04/21/17 16:30 04/24/17 17: 07 Sodium Chloride IV 1.4 mcg/kg/hr TITR PRN 23.8 mls/hr Agitation Administration Protocol 0.2 MCG/KG/HR Cefepime HCl 1 gm in 50 mls @ 100 mls/hr 04/21/17 19:30 04/23/17 19:12 Maxipime Iv 1 Gm Premix IVPB 100 mls/hr Q24H AGUSTIN Administration Vancomycin HCl 500 mg/ Sodium 100 mls @ 100 mls/hr 04/22/17 09:00 04/22/17 09 :54 Chloride IVPB 100 mls/hr MWF AGUSTIN Administration Morphine Sulfate 250 mg/ 250 mls @ 0 mls/hr 04/23/17 20:48 04/24/17 17:10 Sodium Chloride IV 8 ml/hr .Q0M PRN 8 mls/hr Protocol Titration Per Protocol Metronidazole 500 mg in 100 mls @ 100 mls/hr 04/24/17 22:00 Flagyl IVPB Q8 AGUSTIN Levetiracetam 250 mg 04/23/17 18:00 04/24/17 17:08 Keppra PO 250 mg BID AGUSTIN Administration Lorazepam 0.5 mg 04/01/17 16:08 04/23/17 11:06 Ativan IVP 0.5 mg Q3H PRN Administration Anxiety Lorazepam 2 mg 04/20/17 18:18 04/23/17 15:55 Ativan IVP 2 mg Q4H PRN Administration Seizure activity Ondansetron HCl 4 mg 03/27/17 23:45 04/11/17 21:39 Zofran Inj IVP 4 mg Q6H PRN Administration Nausea/Vomiting Pantoprazole Sodium 20 mg 04/19/17 18:00 04/24/17 17:08 Protonix Inj IVP 20 mg BID AGUSTIN Administration Saccharomyces Boulardii 250 mg 04/08/17 18:00 04/24/17 17:08 Florastor PO 250 mg BID AGUSTIN Administration Thiamine HCl 100 mg 04/08/17 12:30 04/24/17 09:44 Vitamin B1 Tab PO 100 mg DAILY AGUSTIN Administration - Patient Studies Lab Studies: Microbiology Studies 04/18/17 22:15 Blood Culture - Final Blood-Venous NO GROWTH AFTER 5 DAYS Gram Stain - Final TEST NOT PERFORMED 04/18/17 21:45 Blood Culture - Final Blood-Venous NO GROWTH AFTER 5 DAYS Gram Stain - Final TEST NOT PERFORMED 04/18/17 21:42 Gram Stain - Final Abdomen Wound Culture - Final No growth. Lab Studies 04/24/17 04/24/17 04/24/17 Range/Units 11:52 04:50 04:50 WBC 16.3 H (4.8-10.8) K/uL RBC 3.34 L (3.80-5.20) Mil/uL Hgb 9.4 L (11.0-16.0) g/dL Hct 28.5 L (34.0-47.0) % MCV 85.4 D (81.0-99.0) fL MCH 28.1 (27.0-31.0) pg MCHC 32.9 L (33.0-37.0) g/dL RDW 15.1 H (11.5-14.5) % Plt Count 455 H (130-400) K/uL MPV 8.2 (7.2-11.7) fL Neut % (Auto) 75.1 H (50.0-75.0) % Lymph % (Auto) 10.0 L (20.0-40.0) % Jerome % (Auto) 10.1 H (0.0-10.0) % Eos % (Auto) 4.2 H (0.0-4.0) % Baso % (Auto) 0.6 (0.0-2.0) % Neut # 12.2 H (1.8-7.0) K/uL Lymph # 1.6 (1.0-4.3) K/uL Jerome # 1.6 H (0.0-0.8) K/uL Eos # 0.7 (0.0-0.7) K/uL Baso # 0.1 (0.0-0.2) K/uL Puncture Site pCO2 (35-45) mm/Hg pO2 (80-100) mm/Hg HCO3 (21-28) mmol/L ABG pH (7.35-7.45) ABG Total CO2 (22-28) mmol/L ABG O2 Saturation (95-98) % ABG Base Excess (-2.0-3.0) mmol/L ABG Hemoglobin (11.7-17.4) g/dL ABG Carboxyhemoglobin (0.5-1.5) % POC ABG HHb (Measured) (0.0-5.0) % ABG Methemoglobin (0.0-3.0) % Daniel Test A-a O2 Difference mm/Hg Respiratory Index Hgb O2 Saturation (95.0-98.0) % Vent Mode Mechanical Rate FiO2 % Tidal Volume PEEP Sodium 135 (132-148) mmol/L Potassium 4.0 (3.6-5.2) mmol/L Chloride 99 (98-107) mmol/L Carbon Dioxide 30 (22-30) mmol/L Anion Gap 11 (10-20) BUN 23 H (7-17) mg/dL Creatinine 2.6 H (0.7-1.2) mg/dL Est GFR ( Amer) 25 Est GFR (Non-Af Amer) 21 POC Glucose (mg/dL) 101 (65-110) mg/dL Random Glucose 96 (65-105) mg/dL Calcium 8.0 L (8.6-10.4) mg/dl Phosphorus 3.4 (2.5-4.5) mg/dL Magnesium 1.7 (1.6-2.3) mg/dL Total Bilirubin 0.9 (0.2-1.3) mg/dL AST 40 H (14-36) U/L ALT 25 (9-52) U/L Alkaline Phosphatase 223 H D (38-126) U/L Total Protein 6.1 L (6.3-8.3) g/dL Albumin 2.9 L (3.5-5.0) g/dL Globulin 3.2 (2.2-3.9) gm/dL Albumin/Globulin Ratio 0.9 L (1.0-2.1) Crossmatch 04/24/17 04/24/17 04/23/17 Range/Units 04:40 00:25 17:41 WBC (4.8-10.8) K/uL RBC (3.80-5.20) Mil/uL Hgb (11.0-16.0) g/dL Hct (34.0-47.0) % MCV (81.0-99.0) fL MCH (27.0-31.0) pg MCHC (33.0-37.0) g/dL RDW (11.5-14.5) % Plt Count (130-400) K/uL MPV (7.2-11.7) fL Neut % (Auto) (50.0-75.0) % Lymph % (Auto) (20.0-40.0) % Jerome % (Auto) (0.0-10.0) % Eos % (Auto) (0.0-4.0) % Baso % (Auto) (0.0-2.0) % Neut # (1.8-7.0) K/uL Lymph # (1.0-4.3) K/uL Jerome # (0.0-0.8) K/uL Eos # (0.0-0.7) K/uL Baso # (0.0-0.2) K/uL Puncture Site Lb pCO2 32 L (35-45) mm/Hg pO2 204 H (80-100) mm/Hg HCO3 27.5 (21-28) mmol/L ABG pH 7.52 H (7.35-7.45) ABG Total CO2 27.1 (22-28) mmol/L ABG O2 Saturation 99.4 H (95-98) % ABG Base Excess 3.3 H (-2.0-3.0) mmol/L ABG Hemoglobin 8.8 L (11.7-17.4) g/dL ABG Carboxyhemoglobin 1.9 H (0.5-1.5) % POC ABG HHb (Measured) 0.6 (0.0-5.0) % ABG Methemoglobin 1.3 (0.0-3.0) % Daniel Test Na A-a O2 Difference 6.0 mm/Hg Respiratory Index 0 Hgb O2 Saturation 96.2 (95.0-98.0) % Vent Mode Prvc Mechanical Rate 18 FiO2 35.0 % Tidal Volume 450 PEEP 5 Sodium (132-148) mmol/L Potassium (3.6-5.2) mmol/L Chloride (98-107) mmol/L Carbon Dioxide (22-30) mmol/L Anion Gap (10-20) BUN (7-17) mg/dL Creatinine (0.7-1.2) mg/dL Est GFR ( Amer) Est GFR (Non-Af Amer) POC Glucose (mg/dL) 93 85 (65-110) mg/dL Random Glucose (65-105) mg/dL Calcium (8.6-10.4) mg/dl Phosphorus (2.5-4.5) mg/dL Magnesium (1.6-2.3) mg/dL Total Bilirubin (0.2-1.3) mg/dL AST (14-36) U/L ALT (9-52) U/L Alkaline Phosphatase (38-126) U/L Total Protein (6.3-8.3) g/dL Albumin (3.5-5.0) g/dL Globulin (2.2-3.9) gm/dL Albumin/Globulin Ratio (1.0-2.1) Crossmatch 04/21/17 Range/Units 09:45 WBC (4.8-10.8) K/uL RBC (3.80-5.20) Mil/uL Hgb (11.0-16.0) g/dL Hct (34.0-47.0) % MCV (81.0-99.0) fL MCH (27.0-31.0) pg MCHC (33.0-37.0) g/dL RDW (11.5-14.5) % Plt Count (130-400) K/uL MPV (7.2-11.7) fL Neut % (Auto) (50.0-75.0) % Lymph % (Auto) (20.0-40.0) % Jerome % (Auto) (0.0-10.0) % Eos % (Auto) (0.0-4.0) % Baso % (Auto) (0.0-2.0) % Neut # (1.8-7.0) K/uL Lymph # (1.0-4.3) K/uL Jerome # (0.0-0.8) K/uL Eos # (0.0-0.7) K/uL Baso # (0.0-0.2) K/uL Puncture Site pCO2 (35-45) mm/Hg pO2 (80-100) mm/Hg HCO3 (21-28) mmol/L ABG pH (7.35-7.45) ABG Total CO2 (22-28) mmol/L ABG O2 Saturation (95-98) % ABG Base Excess (-2.0-3.0) mmol/L ABG Hemoglobin (11.7-17.4) g/dL ABG Carboxyhemoglobin (0.5-1.5) % POC ABG HHb (Measured) (0.0-5.0) % ABG Methemoglobin (0.0-3.0) % Daniel Test A-a O2 Difference mm/Hg Respiratory Index Hgb O2 Saturation (95.0-98.0) % Vent Mode Mechanical Rate FiO2 % Tidal Volume PEEP Sodium (132-148) mmol/L Potassium (3.6-5.2) mmol/L Chloride (98-107) mmol/L Carbon Dioxide (22-30) mmol/L Anion Gap (10-20) BUN (7-17) mg/dL Creatinine (0.7-1.2) mg/dL Est GFR ( Amer) Est GFR (Non-Af Amer) POC Glucose (mg/dL) (65-110) mg/dL Random Glucose (65-105) mg/dL Calcium (8.6-10.4) mg/dl Phosphorus (2.5-4.5) mg/dL Magnesium (1.6-2.3) mg/dL Total Bilirubin (0.2-1.3) mg/dL AST (14-36) U/L ALT (9-52) U/L Alkaline Phosphatase (38-126) U/L Total Protein (6.3-8.3) g/dL Albumin (3.5-5.0) g/dL Globulin (2.2-3.9) gm/dL Albumin/Globulin Ratio (1.0-2.1) Crossmatch See Detail Laboratory Results - last 24 hr 04/21/17 04/23/17 04/24/17 09:45 17:41 00:25 WBC RBC Hgb Hct MCV MCH MCHC RDW Plt Count MPV Neut % (Auto) Lymph % (Auto) Jerome % (Auto) Eos % (Auto) Baso % (Auto) Neut # Lymph # Jerome # Eos # Baso # Puncture Site pCO2 pO2 HCO3 ABG pH ABG Total CO2 ABG O2 Saturation ABG Base Excess ABG Hemoglobin ABG Carboxyhemoglobin POC ABG HHb (Measured) ABG Methemoglobin Daniel Test A-a O2 Difference Respiratory Index Hgb O2 Saturation Vent Mode Mechanical Rate FiO2 Tidal Volume PEEP Sodium Potassium Chloride Carbon Dioxide Anion Gap BUN Creatinine Est GFR ( Amer) Est GFR (Non-Af Amer) POC Glucose (mg/dL) 85 93 Random Glucose Calcium Phosphorus Magnesium Total Bilirubin AST ALT Alkaline Phosphatase Total Protein Albumin Globulin Albumin/Globulin Ratio Crossmatch See Detail 04/24/17 04/24/17 04/24/17 04:40 04:50 04:50 WBC 16.3 H RBC 3.34 L Hgb 9.4 L Hct 28.5 L MCV 85.4 D MCH 28.1 MCHC 32.9 L RDW 15.1 H Plt Count 455 H MPV 8.2 Neut % (Auto) 75.1 H Lymph % (Auto) 10.0 L Jerome % (Auto) 10.1 H Eos % (Auto) 4.2 H Baso % (Auto) 0.6 Neut # 12.2 H Lymph # 1.6 Jerome # 1.6 H Eos # 0.7 Baso # 0.1 Puncture Site Lb pCO2 32 L pO2 204 H HCO3 27.5 ABG pH 7.52 H ABG Total CO2 27.1 ABG O2 Saturation 99.4 H ABG Base Excess 3.3 H ABG Hemoglobin 8.8 L ABG Carboxyhemoglobin 1.9 H POC ABG HHb (Measured) 0.6 ABG Methemoglobin 1.3 Daniel Test Na A-a O2 Difference 6.0 Respiratory Index 0 Hgb O2 Saturation 96.2 Vent Mode Prvc Mechanical Rate 18 FiO2 35.0 Tidal Volume 450 PEEP 5 Sodium 135 Potassium 4.0 Chloride 99 Carbon Dioxide 30 Anion Gap 11 BUN 23 H Creatinine 2.6 H Est GFR ( Amer) 25 Est GFR (Non-Af Amer) 21 POC Glucose (mg/dL) Random Glucose 96 Calcium 8.0 L Phosphorus 3.4 Magnesium 1.7 Total Bilirubin 0.9 AST 40 H ALT 25 Alkaline Phosphatase 223 H D Total Protein 6.1 L Albumin 2.9 L Globulin 3.2 Albumin/Globulin Ratio 0.9 L Crossmatch 04/24/17 11:52 WBC RBC Hgb Hct MCV MCH MCHC RDW Plt Count MPV Neut % (Auto) Lymph % (Auto) Jerome % (Auto) Eos % (Auto) Baso % (Auto) Neut # Lymph # Jerome # Eos # Baso # Puncture Site pCO2 pO2 HCO3 ABG pH ABG Total CO2 ABG O2 Saturation ABG Base Excess ABG Hemoglobin ABG Carboxyhemoglobin POC ABG HHb (Measured) ABG Methemoglobin Daniel Test A-a O2 Difference Respiratory Index Hgb O2 Saturation Vent Mode Mechanical Rate FiO2 Tidal Volume PEEP Sodium Potassium Chloride Carbon Dioxide Anion Gap BUN Creatinine Est GFR ( Amer) Est GFR (Non-Af Amer) POC Glucose (mg/dL) 101 Random Glucose Calcium Phosphorus Magnesium Total Bilirubin AST ALT Alkaline Phosphatase Total Protein Albumin Globulin Albumin/Globulin Ratio Crossmatch Fingerstick Blood Sugar Results: 85 Critical Care Progress Note - Nutrition Nutrition: Nutrition Category Date Time Status NPO Diet [DIET] Diets 04/08/17 Dinner Active
[2017-04-24] MEDS: Cefepime IV 1 gm in Dextrose 1 GM/50 ML BAG IVPB SCH (18:39)
[2017-04-24] MEDS: metroNIDAZOLE IV 500 mg/100 ml 500 MG/100 ML BAG IVPB SCH (22:00)
[2017-04-25] MEDS: Albuterol-Ipratrop 3 mg / 0.5 (3 ml) UD INH SCH ×3 (01:07→20:12)
[2017-04-25] MEDS: Dexmedetomidine Hydrochloride 400 MCG in Sodium Chloride 0.9% 96 ML IV PRN ×3 (01:35→17:11)
[2017-04-25 04:53] LABS: ARTERIAL BLOOD GAS HCO3 23.6 mmol/L (21-28); ARTERIAL BLOOD GAS HEMOGLOBIN 9.2 g/dL (11.7-17.4); ARTERIAL BLOOD GAS O2 SAT 99.1 % (95-98); ARTERIAL BLOOD GAS PCO2 25 mm/Hg (35-45); ARTERIAL BLOOD GAS PH 7.52 (7.35-7.45); ARTERIAL BLOOD GAS PO2 191 mm/Hg (80-100); ARTERIAL BLOOD GAS TCO2 21.2 mmol/L (22-28)
[2017-04-25] MEDS: metroNIDAZOLE IV 500 mg/100 ml 500 MG/100 ML BAG IVPB SCH ×3 (06:00→21:50)
[2017-04-25 06:32] LABS: BASO # 0.1 K/uL (0.0-0.2); BASO % 0.5 % (0.0-2.0); EOS # 0.5 K/uL (0.0-0.7); EOS % 3.9 % (0.0-4.0); HEMOGLOBIN 9.7 g/dL (11.0-16.0); LYMPH # 1.6 K/uL (1.0-4.3); LYMPH % 11.4 % (20.0-40.0); MEAN CELL VOLUME 85.9 fL (81.0-99.0); MEAN CORPUSCULAR HEMOGLOBIN 28.5 pg (27.0-31.0); MEAN CORPUSCULAR HGB CONC 33.2 g/dL (33.0-37.0); MEAN PLATELET VOLUME 8.1 fL (7.2-11.7); MONO # 1.3 K/uL (0.0-0.8); MONO % 9.2 % (0.0-10.0); NEUT # 10.4 K/uL (1.8-7.0); RBC 3.42 Mil/uL (3.80-5.20); RED CELL DISTRIBUTION WIDTH 15.3 % (11.5-14.5); WHITE BLOOD COUNT 13.9 K/uL (4.8-10.8)
[2017-04-25 06:38] LABS: INR 1.2
[2017-04-25 06:50] LABS: ALBUMIN 2.8 g/dL (3.5-5.0)
--- NOTE | 2017-04-25 08:28 | CP.CCUPN ---
<Bipin Chopra - Last Filed: 04/25/17 16:06> CCU Subjective - Physician Review Subjective (Free Text): 04/25/17 08:26 Patient seen and examined at bedside. Dressing changes by surgery. Sedated on precedex and fetanyl. Going for Permacath today. Intubated, Vent settings: 18/450/5/35% Feedings per J tube Tmax 100.8 04/25/17 13:20 Patient to get PICC this afternoon 04/25/17 15:15 PICC Inserted 04/25/17 16:06 Fem line removed Morphine drip D/c Morphine PRN added CCU Objective - Vital Signs / Intake & Output Vital Signs (Last 4 hours): Vital Signs Temp Pulse Resp BP Pulse Ox 04/25/17 08:00 100.8 F H 103 H 15 100 04/25/17 07:30 109 H 12 100/63 100 04/25/17 07:00 98 H 18 100 04/25/17 06:30 97 H 18 92/59 L 100 04/25/17 06:00 96 H 18 100 04/25/17 05:30 111 H 11 L 89/50 L 97 04/25/17 05:00 94 H 18 100 04/25/17 04:30 94 H 18 103/70 100 Intake and Output (Last 8hrs): Intake & Output 04/24/17 04/25/17 04/25/17 22:59 06:59 14:59 Intake Total 941.7 441.0 71.8 Output Total 1695 520 130 Balance -753.3 -79.0 -58.2 Intake: IV 425 123.8 Intake, IV Amount 276.7 287.2 71.8 Right Femoral 80 80 20 Rt Femoral 196.7 207.2 51.8 Oral 0 Tube Feeding 240 30 0 Output: Drainage 810 Left Lower Abdomen 60 Right Lower Abdomen 750 Urine 885 520 130 Urethral (Tovar) 885 520 130 - Physical Exam Head: Positive for: Atraumatic, Normocephalic. Negative for: Tenderness Pupils: Positive for: PERRL Extroacular Muscles: Positive for: EOMI Mouth: Positive for: Moist Mucous Membranes. Negative for: Dry, Drooling Nose (External): Positive for: Other (NGT in place) Nose (Internal): Positive for: Normal Inspection, Moist Neck: Positive for: Normal Range of Motion. Negative for: JVD, Lymphadenopathy Respiratory/Chest: Positive for: Clear to Auscultation. Negative for: Respiratory Distress, Accessory Muscle Use Cardiovascular: Positive for: Regular Rate and Rhythm, Normal S1, S2 Abdomen: Positive for: Tenderness (mild tenderness of palpation. patient continues to move her arms towards hands on palpation). Negative for: Distention, Guarding Upper Extremity: Positive for: Normal Inspection, Normal ROM, Capillary Refill < 2s. Negative for: Edema Lower Extremity: Positive for: Normal Inspection. Negative for: Edema Neurological: Positive for: CN II-XII Intact Skin: Positive for: Warm, Pale Psychiatric: Positive for: Alert - Medications Active Medications: Active Medications Generic Name Dose Route Start Last Admin Trade Name Freq PRN Reason Stop Dose Admin Acetaminophen 650 mg 04/20/17 09:08 04/24/17 12:14 Tylenol 650mg/20.3ml Solution Ud PO 650 mg Q6 PRN Administration Temperature Acetaminophen 650 mg 04/20/17 10:17 Tylenol 650 Mg Supp IN Q4 PRN Fever >100.4 F Albuterol/Ipratropium 3 ml 04/18/17 14:00 04/25/17 07:00 Duoneb 3 Mg/0.5 Mg (3 Ml) Ud INH 3 ml RQ6 AGUSTIN Administration Ascorbic Acid 500 mg 04/08/17 12:30 04/24/17 09:43 Vitamin C 500 Mg Tab PO 500 mg DAILY AGUSTIN Administration Calcium Acetate 667 mg 04/23/17 17:00 04/25/17 07:33 Phoslo PO Not Given [facility] Haloperidol Lactate 1 mg 03/29/17 18:47 04/17/17 00:00 Haldol IVP 1 mg BID PRN Administration Agitation Hydromorphone HCl 1 mg 04/17/17 07:16 04/24/17 08:11 Dilaudid IVP 1 mg Q3 PRN Administration Pain, severe (8-10) Fluconazole 100 mls @ 100 mls/hr 04/21/17 10:00 04/24/17 09:43 Diflucan Iv 200 Mg/100 Ml Ns IVPB 100 mls/hr DAILY AGUSTIN Administration Vasopressin 40 units/ Sodium 40 mls @ 0.6 mls/hr 04/21/17 09:30 04/22/17 00: 39 Chloride IV 0 units/min .Q24H PRN 0 mls/hr TITRATE PER PROTOCOL Titration Protocol 0.01 UNITS/MIN Dexmedetomidine HCl 400 mcg/ 100 mls @ 3.4 mls/hr 04/21/17 16:30 04/25/17 06: 30 Sodium Chloride IV 1.4 mcg/kg/hr TITR PRN 23.8 mls/hr Agitation Administration Protocol 0.2 MCG/KG/HR Cefepime HCl 1 gm in 50 mls @ 100 mls/hr 04/21/17 19:30 04/24/17 18:39 Maxipime Iv 1 Gm Premix IVPB 100 mls/hr Q24H AGUSTIN Administration Vancomycin HCl 500 mg/ Sodium 100 mls @ 100 mls/hr 04/22/17 09:00 04/22/17 09 :54 Chloride IVPB 100 mls/hr MWF AGUSTIN Administration Morphine Sulfate 250 mg/ 250 mls @ 0 mls/hr 04/23/17 20:48 04/24/17 22:30 Sodium Chloride IV 8 ml/hr .Q0M PRN 8 mls/hr Protocol Administration Per Protocol Metronidazole 500 mg in 100 mls @ 100 mls/hr 04/24/17 22:00 04/25/17 06:00 Flagyl IVPB 100 mls/hr Q8 AGUSTIN Administration Levetiracetam 250 mg 04/23/17 18:00 04/24/17 17:08 Keppra PO 250 mg BID AGUSTIN Administration Lorazepam 0.5 mg 04/01/17 16:08 04/23/17 11:06 Ativan IVP 0.5 mg Q3H PRN Administration Anxiety Lorazepam 2 mg 04/20/17 18:18 04/24/17 23:21 Ativan IVP 2 mg Q4H PRN Administration Seizure activity Ondansetron HCl 4 mg 03/27/17 23:45 04/11/17 21:39 Zofran Inj IVP 4 mg Q6H PRN Administration Nausea/Vomiting Pantoprazole Sodium 20 mg 04/19/17 18:00 04/24/17 17:08 Protonix Inj IVP 20 mg BID AGUSTIN Administration Saccharomyces Boulardii 250 mg 04/08/17 18:00 04/24/17 17:08 Florastor PO 250 mg BID AGUSTIN Administration Thiamine HCl 100 mg 04/08/17 12:30 04/24/17 09:44 Vitamin B1 Tab PO 100 mg DAILY AGUSTIN Administration - Patient Studies Lab Studies: Lab Studies 04/25/17 04/25/17 04/25/17 Range/Units 06:25 06:25 06:25 WBC 13.9 H (4.8-10.8) K/uL RBC 3.42 L (3.80-5.20) Mil/uL Hgb 9.7 L (11.0-16.0) g/dL Hct 29.4 L (34.0-47.0) % MCV 85.9 (81.0-99.0) fL MCH 28.5 (27.0-31.0) pg MCHC 33.2 (33.0-37.0) g/dL RDW 15.3 H (11.5-14.5) % Plt Count 439 H (130-400) K/uL MPV 8.1 (7.2-11.7) fL Neut % (Auto) 75.0 (50.0-75.0) % Lymph % (Auto) 11.4 L (20.0-40.0) % [place] % (Auto) 9.2 (0.0-10.0) % Eos % (Auto) 3.9 (0.0-4.0) % Baso % (Auto) 0.5 (0.0-2.0) % Neut # 10.4 H (1.8-7.0) K/uL Lymph # 1.6 (1.0-4.3) K/uL [place] # 1.3 H (0.0-0.8) K/uL Eos # 0.5 (0.0-0.7) K/uL Baso # 0.1 (0.0-0.2) K/uL PT 14.0 H (9.7-12.2) SECONDS INR 1.2 APTT 32 (21-34) SECONDS Puncture Site pCO2 (35-45) mm/Hg pO2 (80-100) mm/Hg HCO3 (21-28) mmol/L ABG pH (7.35-7.45) ABG Total CO2 (22-28) mmol/L ABG O2 Saturation (95-98) % ABG Base Excess (-2.0-3.0) mmol/L ABG Hemoglobin (11.7-17.4) g/dL ABG Carboxyhemoglobin (0.5-1.5) % POC ABG HHb (Measured) (0.0-5.0) % ABG Methemoglobin (0.0-3.0) % Daniel Test A-a O2 Difference mm/Hg Respiratory Index Hgb O2 Saturation (95.0-98.0) % Vent Mode Mechanical Rate FiO2 % Tidal Volume PEEP Sodium 139 (132-148) mmol/L Potassium 4.0 (3.6-5.2) mmol/L Chloride 106 (98-107) mmol/L Carbon Dioxide 25 (22-30) mmol/L Anion Gap 13 (10-20) BUN 30 H (7-17) mg/dL Creatinine 2.8 H (0.7-1.2) mg/dL Est GFR ( Amer) 23 Est GFR (Non-Af Amer) 19 POC Glucose (mg/dL) (65-110) mg/dL Random Glucose 100 (65-105) mg/dL Calcium 8.0 L (8.6-10.4) mg/dl Total Bilirubin 0.9 (0.2-1.3) mg/dL AST 32 (14-36) U/L ALT 25 (9-52) U/L Alkaline Phosphatase 165 H D (38-126) U/L Total Protein 5.7 L (6.3-8.3) g/dL Albumin 2.8 L (3.5-5.0) g/dL Globulin 2.9 (2.2-3.9) gm/dL Albumin/Globulin Ratio 1.0 (1.0-2.1) Crossmatch 04/25/17 04/25/17 04/24/17 Range/Units 06:11 04:35 23:59 WBC (4.8-10.8) K/uL RBC (3.80-5.20) Mil/uL Hgb (11.0-16.0) g/dL Hct (34.0-47.0) % MCV (81.0-99.0) fL MCH (27.0-31.0) pg MCHC (33.0-37.0) g/dL RDW (11.5-14.5) % Plt Count (130-400) K/uL MPV (7.2-11.7) fL Neut % (Auto) (50.0-75.0) % Lymph % (Auto) (20.0-40.0) % [place] % (Auto) (0.0-10.0) % Eos % (Auto) (0.0-4.0) % Baso % (Auto) (0.0-2.0) % Neut # (1.8-7.0) K/uL Lymph # (1.0-4.3) K/uL [place] # (0.0-0.8) K/uL Eos # (0.0-0.7) K/uL Baso # (0.0-0.2) K/uL PT (9.7-12.2) SECONDS INR APTT (21-34) SECONDS Puncture Site Lb pCO2 25 L (35-45) mm/Hg pO2 191 H (80-100) mm/Hg HCO3 23.6 (21-28) mmol/L ABG pH 7.52 H (7.35-7.45) ABG Total CO2 21.2 L (22-28) mmol/L ABG O2 Saturation 99.1 H (95-98) % ABG Base Excess -1.7 (-2.0-3.0) mmol/L ABG Hemoglobin 9.2 L (11.7-17.4) g/dL ABG Carboxyhemoglobin 1.5 (0.5-1.5) % POC ABG HHb (Measured) 0.9 (0.0-5.0) % ABG Methemoglobin 1.5 (0.0-3.0) % Daniel Test Na A-a O2 Difference 27.0 mm/Hg Respiratory Index 0.1 Hgb O2 Saturation 96.1 (95.0-98.0) % Vent Mode Prvc Mechanical Rate 18 FiO2 35.0 % Tidal Volume 450 PEEP 5 Sodium (132-148) mmol/L Potassium (3.6-5.2) mmol/L Chloride (98-107) mmol/L Carbon Dioxide (22-30) mmol/L Anion Gap (10-20) BUN (7-17) mg/dL Creatinine (0.7-1.2) mg/dL Est GFR ( Amer) Est GFR (Non-Af Amer) POC Glucose (mg/dL) 98 98 (65-110) mg/dL Random Glucose (65-105) mg/dL Calcium (8.6-10.4) mg/dl Total Bilirubin (0.2-1.3) mg/dL AST (14-36) U/L ALT (9-52) U/L Alkaline Phosphatase (38-126) U/L Total Protein (6.3-8.3) g/dL Albumin (3.5-5.0) g/dL Globulin (2.2-3.9) gm/dL Albumin/Globulin Ratio (1.0-2.1) Crossmatch 04/24/17 04/24/17 04/21/17 Range/Units 17:50 11:52 09:45 WBC (4.8-10.8) K/uL RBC (3.80-5.20) Mil/uL Hgb (11.0-16.0) g/dL Hct (34.0-47.0) % MCV (81.0-99.0) fL MCH (27.0-31.0) pg MCHC (33.0-37.0) g/dL RDW (11.5-14.5) % Plt Count (130-400) K/uL MPV (7.2-11.7) fL Neut % (Auto) (50.0-75.0) % Lymph % (Auto) (20.0-40.0) % [place] % (Auto) (0.0-10.0) % Eos % (Auto) (0.0-4.0) % Baso % (Auto) (0.0-2.0) % Neut # (1.8-7.0) K/uL Lymph # (1.0-4.3) K/uL [place] # (0.0-0.8) K/uL Eos # (0.0-0.7) K/uL Baso # (0.0-0.2) K/uL PT (9.7-12.2) SECONDS INR APTT (21-34) SECONDS Puncture Site pCO2 (35-45) mm/Hg pO2 (80-100) mm/Hg HCO3 (21-28) mmol/L ABG pH (7.35-7.45) ABG Total CO2 (22-28) mmol/L ABG O2 Saturation (95-98) % ABG Base Excess (-2.0-3.0) mmol/L ABG Hemoglobin (11.7-17.4) g/dL ABG Carboxyhemoglobin (0.5-1.5) % POC ABG HHb (Measured) (0.0-5.0) % ABG Methemoglobin (0.0-3.0) % Daniel Test A-a O2 Difference mm/Hg Respiratory Index Hgb O2 Saturation (95.0-98.0) % Vent Mode Mechanical Rate FiO2 % Tidal Volume PEEP Sodium (132-148) mmol/L Potassium (3.6-5.2) mmol/L Chloride (98-107) mmol/L Carbon Dioxide (22-30) mmol/L Anion Gap (10-20) BUN (7-17) mg/dL Creatinine (0.7-1.2) mg/dL Est GFR ( Amer) Est GFR (Non-Af Amer) POC Glucose (mg/dL) 117 H 101 (65-110) mg/dL Random Glucose (65-105) mg/dL Calcium (8.6-10.4) mg/dl Total Bilirubin (0.2-1.3) mg/dL AST (14-36) U/L ALT (9-52) U/L Alkaline Phosphatase (38-126) U/L Total Protein (6.3-8.3) g/dL Albumin (3.5-5.0) g/dL Globulin (2.2-3.9) gm/dL Albumin/Globulin Ratio (1.0-2.1) Crossmatch See Detail Laboratory Results - last 24 hr 04/21/17 04/24/17 04/24/17 09:45 11:52 17:50 WBC RBC Hgb Hct MCV MCH MCHC RDW Plt Count MPV Neut % (Auto) Lymph % (Auto) [place] % (Auto) Eos % (Auto) Baso % (Auto) Neut # Lymph # [place] # Eos # Baso # PT INR APTT Puncture Site pCO2 pO2 HCO3 ABG pH ABG Total CO2 ABG O2 Saturation ABG Base Excess ABG Hemoglobin ABG Carboxyhemoglobin POC ABG HHb (Measured) ABG Methemoglobin Daniel Test A-a O2 Difference Respiratory Index Hgb O2 Saturation Vent Mode Mechanical Rate FiO2 Tidal Volume PEEP Sodium Potassium Chloride Carbon Dioxide Anion Gap BUN Creatinine Est GFR ( Amer) Est GFR (Non-Af Amer) POC Glucose (mg/dL) 101 117 H Random Glucose Calcium Total Bilirubin AST ALT Alkaline Phosphatase Total Protein Albumin Globulin Albumin/Globulin Ratio Crossmatch See Detail 04/24/17 04/25/17 04/25/17 23:59 04:35 06:11 WBC RBC Hgb Hct MCV MCH MCHC RDW Plt Count MPV Neut % (Auto) Lymph % (Auto) [place] % (Auto) Eos % (Auto) Baso % (Auto) Neut # Lymph # [place] # Eos # Baso # PT INR APTT Puncture Site Lb pCO2 25 L pO2 191 H HCO3 23.6 ABG pH 7.52 H ABG Total CO2 21.2 L ABG O2 Saturation 99.1 H ABG Base Excess -1.7 ABG Hemoglobin 9.2 L ABG Carboxyhemoglobin 1.5 POC ABG HHb (Measured) 0.9 ABG Methemoglobin 1.5 Daniel Test Na A-a O2 Difference 27.0 Respiratory Index 0.1 Hgb O2 Saturation 96.1 Vent Mode Prvc Mechanical Rate 18 FiO2 35.0 Tidal Volume 450 PEEP 5 Sodium Potassium Chloride Carbon Dioxide Anion Gap BUN Creatinine Est GFR ( Amer) Est GFR (Non-Af Amer) POC Glucose (mg/dL) 98 98 Random Glucose Calcium Total Bilirubin AST ALT Alkaline Phosphatase Total Protein Albumin Globulin Albumin/Globulin Ratio Crossmatch 04/25/17 04/25/17 04/25/17 06:25 06:25 06:25 WBC 13.9 H RBC 3.42 L Hgb 9.7 L Hct 29.4 L MCV 85.9 MCH 28.5 MCHC 33.2 RDW 15.3 H Plt Count 439 H MPV 8.1 Neut % (Auto) 75.0 Lymph % (Auto) 11.4 L [place] % (Auto) 9.2 Eos % (Auto) 3.9 Baso % (Auto) 0.5 Neut # 10.4 H Lymph # 1.6 [place] # 1.3 H Eos # 0.5 Baso # 0.1 PT 14.0 H INR 1.2 APTT 32 Puncture Site pCO2 pO2 HCO3 ABG pH ABG Total CO2 ABG O2 Saturation ABG Base Excess ABG Hemoglobin ABG Carboxyhemoglobin POC ABG HHb (Measured) ABG Methemoglobin Daniel Test A-a O2 Difference Respiratory Index Hgb O2 Saturation Vent Mode Mechanical Rate FiO2 Tidal Volume PEEP Sodium 139 Potassium 4.0 Chloride 106 Carbon Dioxide 25 Anion Gap 13 BUN 30 H Creatinine 2.8 H Est GFR ( Amer) 23 Est GFR (Non-Af Amer) 19 POC Glucose (mg/dL) Random Glucose 100 Calcium 8.0 L Total Bilirubin 0.9 AST 32 ALT 25 Alkaline Phosphatase 165 H D Total Protein 5.7 L Albumin 2.8 L Globulin 2.9 Albumin/Globulin Ratio 1.0 Crossmatch Fingerstick Blood Sugar Results: 85 Critical Care Progress Note - Nutrition Nutrition: Nutrition Category Date Time Status NPO Diet [DIET] Diets 04/08/17 Dinner Active Assessment/Plan - Assessment and Plan (Free Text) Assessment: 36F w/gastrioparesis and GI bleed; s/p boby en Y bypass, ileostomy POD 7 Plan: Neuro: * Neuro (Aureliano) * Hx Schizophrenia, mental retardation * Seizure activity 04/20 * Haloperidol 1 IV BID PRN * Keppra 250 PO BID * Ativan 0.5 IV Q3 PRN * Ativan 2 IV Q4 PRN Seizure * Precedex 400 @ 3.4 * Morphine Drip * Thiamine 100mg PO QD * Vit C 500mg PO QD Psych: * Psych (Ozden) * Quetiapine, Escitalopram - held Cardio: * Cards (Dex) * Tachy Pulm: * Intubated * R. Lung pneumonia * Maxipime1 IV QD * Vanco 500 IV MWF * Flagyl 500 IV Q8 * Albuterol/Ipratropium 3cc INH RQ6H Endo: * 03/28 Hemoglobin A1c 5.3 GI: * S/P R-n-Y POD 7 * J tube Glucerna 1.5 @ 30 * Dilaudid 1 IV Q3 PRN * Hal Drain * NGT * Zofran IV Q6 PRN Renal: * Permacath today * HD on hold * making urine : * continues to make urine * Urine Culture - yeast * Diflucan 200 IV QD Heme: * Hx GI bleed * Hgb stable * S/p RnY MSK: * Prior to hospitalization could ambulate * PT/OT ID: * WBC downtrending * Maxipime1 IV QD * Diflucan 200 IV QD * Vanco 500 IV MWF * Flagyl 500 IV Q8 * F/U Blood cultures * PICC Today Prophylaxis: * Protonix Q12H * Zofran 4mg IV Q6H * Fluids: LR @100cc/hr * Diet: NPO <Patrick,Taty - Last Filed: 05/05/17 02:22> CCU Objective - Vital Signs / Intake & Output Intake and Output (Last 8hrs): Intake & Output 05/04/17 05/04/17 05/05/17 14:59 22:59 06:59 Intake Total 1048.2 548.5 5.7 Output Total 180 Balance 1048.2 368.5 5.7 Intake: IV 100 5.7 Intake, IV Amount 948.2 528.5 Left Distal Port PICC 53.2 28.5 Left PICC 480 300 Left PICC #2 415 200 Oral 20 Output: Gastric Amount 60 Right Nares 60 Drainage 70 Right Lower Abdomen 70 Urine 50 Urine, Voided 50 Other: # Bowel Movements 0 0 - Medications Active Medications: Active Medications Generic Name Dose Route Start Last Admin Trade Name Freq PRN Reason Stop Dose Admin Acetaminophen 650 mg 04/28/17 20:11 05/02/17 02:00 Tylenol 650mg/20.3ml Solution Ud PO 650 mg Q4 PRN Administration Temperature Fluconazole 100 mls @ 100 mls/hr 04/28/17 10:00 05/04/17 09:25 Diflucan Iv 200 Mg/100 Ml Ns IVPB 100 mls/hr DAILY AGUSTIN Administration Cefepime HCl 1 gm/ Dextrose 50 mls @ 100 mls/hr 05/03/17 10:00 05/04/17 11:07 IVPB 100 mls/hr DAILY AGUSTIN Administration Levetiracetam 500 mg/ Sodium 105 mls @ 420 mls/hr 05/03/17 22:00 05/04/17 21: 20 Chloride IVPB 420 mls/hr Q12H AGUSTIN Administration Propofol 1,000 mg in 100 mls @ 1.905 mls/hr 05/03/17 15:39 05/05/17 01:15 Diprivan IV 15 mcg/kg/min .Q24H PRN 5.716 mls/hr TITRATE PER MD ORDER Administration Protocol 5 MCG/KG/MIN Linezolid 600 mg in 300 mls @ 200 mls/hr 05/04/17 22:00 05/04/17 21:33 Zyvox 600mg/300ml D5w IVPB 200 mls/hr Q12 AGUSTIN Administration Potassium Chloride/Dextrose/Sod Cl 1,000 mls @ 60 mls/hr 05/05/17 00:30 05/05 01:38 Potassium Chl 20 Meq In D5-1/2ns IV 60 mls/hr .[id number] AGUSTIN Administration Metoprolol Tartrate 5 mg 05/02/17 19:00 05/05/17 01:25 Lopressor IVP 5 mg Q6H AGUSTIN Administration Multivitamins/Vitamin C 5 ml 04/30/17 12:00 05/04/17 09:18 Multi-Delyn Liquid PO Not Given DAILY AGUSTIN Pantoprazole Sodium 20 mg 04/19/17 18:00 05/04/17 17:36 Protonix Inj IVP 20 mg BID AGUSTIN Administration - Patient Studies Lab Studies: Microbiology Studies 05/02/17 20:41 Blood Culture - Preliminary Blood NO GROWTH AFTER 48 HOURS 05/02/17 20:40 Blood Culture - Preliminary Blood NO GROWTH AFTER 48 HOURS 04/18/17 07:27 Blood Fungal Culture - Preliminary Other: Please Indicate 05/02/17 19:07 Urine Culture - Final Urine Gram Positive Cocci Lab Studies 05/05/17 05/04/17 05/04/17 Range/Units 00:14 17:52 12:49 WBC (4.8-10.8) K/uL RBC (3.80-5.20) Mil/uL Hgb (11.0-16.0) g/dL Hct (34.0-47.0) % MCV (81.0-99.0) fL MCH (27.0-31.0) pg MCHC (33.0-37.0) g/dL RDW (11.5-14.5) % Plt Count (130-400) K/uL MPV (7.2-11.7) fL Neut % (Auto) (50.0-75.0) % Lymph % (Auto) (20.0-40.0) % [place] % (Auto) (0.0-10.0) % Eos % (Auto) (0.0-4.0) % Baso % (Auto) (0.0-2.0) % Neut # (1.8-7.0) K/uL Lymph # (1.0-4.3) K/uL [place] # (0.0-0.8) K/uL Eos # (0.0-0.7) K/uL Baso # (0.0-0.2) K/uL Puncture Site pCO2 (35-45) mm/Hg pO2 (80-100) mm/Hg HCO3 (21-28) mmol/L ABG pH (7.35-7.45) ABG Total CO2 (22-28) mmol/L ABG O2 Saturation (95-98) % ABG Base Excess (-2.0-3.0) mmol/L ABG Hemoglobin (11.7-17.4) g/dL ABG Carboxyhemoglobin (0.5-1.5) % POC ABG HHb (Measured) (0.0-5.0) % ABG Methemoglobin (0.0-3.0) % Daniel Test A-a O2 Difference mm/Hg Respiratory Index Hgb O2 Saturation (95.0-98.0) % FiO2 % Tidal Volume PEEP Sodium (132-148) mmol/L Potassium (3.6-5.2) mmol/L Chloride (98-107) mmol/L Carbon Dioxide (22-30) mmol/L Anion Gap (10-20) BUN (7-17) mg/dL Creatinine (0.7-1.2) mg/dL Est GFR ( Amer) Est GFR (Non-Af Amer) POC Glucose (mg/dL) 76 94 (65-110) mg/dL Random Glucose (65-105) mg/dL Calcium (8.6-10.4) mg/dl Phosphorus (2.5-4.5) mg/dL Magnesium (1.6-2.3) mg/dL Total Bilirubin (0.2-1.3) mg/dL AST (14-36) U/L ALT (9-52) U/L Alkaline Phosphatase (38-126) U/L Total Protein (6.3-8.3) g/dL Albumin (3.5-5.0) g/dL Globulin (2.2-3.9) gm/dL Albumin/Globulin Ratio (1.0-2.1) Procalcitonin 0.47 (0.19-0.49) NG/ML Levetiracetam mcg/mL 05/04/17 05/04/17 05/04/17 Range/Units 11:37 09:05 06:22 WBC (4.8-10.8) K/uL RBC (3.80-5.20) Mil/uL Hgb (11.0-16.0) g/dL Hct (34.0-47.0) % MCV (81.0-99.0) fL MCH (27.0-31.0) pg MCHC (33.0-37.0) g/dL RDW (11.5-14.5) % Plt Count (130-400) K/uL MPV (7.2-11.7) fL Neut % (Auto) (50.0-75.0) % Lymph % (Auto) (20.0-40.0) % [place] % (Auto) (0.0-10.0) % Eos % (Auto) (0.0-4.0) % Baso % (Auto) (0.0-2.0) % Neut # (1.8-7.0) K/uL Lymph # (1.0-4.3) K/uL [place] # (0.0-0.8) K/uL Eos # (0.0-0.7) K/uL Baso # (0.0-0.2) K/uL Puncture Site Rb pCO2 37 (35-45) mm/Hg pO2 182 H (80-100) mm/Hg HCO3 25.2 (21-28) mmol/L ABG pH 7.43 (7.35-7.45) ABG Total CO2 25.7 (22-28) mmol/L ABG O2 Saturation 99.4 H (95-98) % ABG Base Excess 0.4 (-2.0-3.0) mmol/L ABG Hemoglobin 9.3 L (11.7-17.4) g/dL ABG Carboxyhemoglobin 1.3 (0.5-1.5) % POC ABG HHb (Measured) 0.6 (0.0-5.0) % ABG Methemoglobin 1.6 (0.0-3.0) % Daniel Test Na A-a O2 Difference 128.0 mm/Hg Respiratory Index 0.7 Hgb O2 Saturation 96.5 (95.0-98.0) % FiO2 50.0 % Tidal Volume 450 PEEP 5 Sodium 145 (132-148) mmol/L Potassium 3.5 L (3.6-5.2) mmol/L Chloride 109 H (98-107) mmol/L Carbon Dioxide 25 (22-30) mmol/L Anion Gap 14 (10-20) BUN 20 H (7-17) mg/dL Creatinine 0.9 (0.7-1.2) mg/dL Est GFR ( Amer) > 60 Est GFR (Non-Af Amer) > 60 POC Glucose (mg/dL) 110 (65-110) mg/dL Random Glucose 141 H (65-105) mg/dL Calcium 8.0 L (8.6-10.4) mg/dl Phosphorus 3.4 (2.5-4.5) mg/dL Magnesium 1.4 L (1.6-2.3) mg/dL Total Bilirubin 0.7 (0.2-1.3) mg/dL AST 31 (14-36) U/L ALT 35 (9-52) U/L Alkaline Phosphatase 115 (38-126) U/L Total Protein 6.1 L (6.3-8.3) g/dL Albumin 3.1 L (3.5-5.0) g/dL Globulin 3.0 (2.2-3.9) gm/dL Albumin/Globulin Ratio 1.1 (1.0-2.1) Procalcitonin (0.19-0.49) NG/ML Levetiracetam mcg/mL 05/04/17 04/30/17 Range/Units 06:22 06:39 WBC 18.9 H (4.8-10.8) K/uL RBC 3.37 L (3.80-5.20) Mil/uL Hgb 9.5 L (11.0-16.0) g/dL Hct 29.3 L (34.0-47.0) % MCV 87.0 (81.0-99.0) fL MCH 28.3 (27.0-31.0) pg MCHC 32.5 L (33.0-37.0) g/dL RDW 15.8 H (11.5-14.5) % Plt Count 400 (130-400) K/uL MPV 10.4 (7.2-11.7) fL Neut % (Auto) 76.5 H (50.0-75.0) % Lymph % (Auto) 13.1 L (20.0-40.0) % [place] % (Auto) 8.9 (0.0-10.0) % Eos % (Auto) 0.6 (0.0-4.0) % Baso % (Auto) 0.9 (0.0-2.0) % Neut # 14.4 H (1.8-7.0) K/uL Lymph # 2.5 (1.0-4.3) K/uL [place] # 1.7 H (0.0-0.8) K/uL Eos # 0.1 (0.0-0.7) K/uL Baso # 0.2 (0.0-0.2) K/uL Puncture Site pCO2 (35-45) mm/Hg pO2 (80-100) mm/Hg HCO3 (21-28) mmol/L ABG pH (7.35-7.45) ABG Total CO2 (22-28) mmol/L ABG O2 Saturation (95-98) % ABG Base Excess (-2.0-3.0) mmol/L ABG Hemoglobin (11.7-17.4) g/dL ABG Carboxyhemoglobin (0.5-1.5) % POC ABG HHb (Measured) (0.0-5.0) % ABG Methemoglobin (0.0-3.0) % Daniel Test A-a O2 Difference mm/Hg Respiratory Index Hgb O2 Saturation (95.0-98.0) % FiO2 % Tidal Volume PEEP Sodium (132-148) mmol/L Potassium (3.6-5.2) mmol/L Chloride (98-107) mmol/L Carbon Dioxide (22-30) mmol/L Anion Gap (10-20) BUN (7-17) mg/dL Creatinine (0.7-1.2) mg/dL Est GFR ( Amer) Est GFR (Non-Af Amer) POC Glucose (mg/dL) (65-110) mg/dL Random Glucose (65-105) mg/dL Calcium (8.6-10.4) mg/dl Phosphorus (2.5-4.5) mg/dL Magnesium (1.6-2.3) mg/dL Total Bilirubin (0.2-1.3) mg/dL AST (14-36) U/L ALT (9-52) U/L Alkaline Phosphatase (38-126) U/L Total Protein (6.3-8.3) g/dL Albumin (3.5-5.0) g/dL Globulin (2.2-3.9) gm/dL Albumin/Globulin Ratio (1.0-2.1) Procalcitonin (0.19-0.49) NG/ML Levetiracetam 7.1 mcg/mL Laboratory Results - last 24 hr 04/30/17 05/04/17 05/04/17 06:39 06:22 06:22 WBC 18.9 H RBC 3.37 L Hgb 9.5 L Hct 29.3 L MCV 87.0 MCH 28.3 MCHC 32.5 L RDW 15.8 H Plt Count 400 MPV 10.4 Neut % (Auto) 76.5 H Lymph % (Auto) 13.1 L [place] % (Auto) 8.9 Eos % (Auto) 0.6 Baso % (Auto) 0.9 Neut # 14.4 H Lymph # 2.5 [place] # 1.7 H Eos # 0.1 Baso # 0.2 Puncture Site pCO2 pO2 HCO3 ABG pH ABG Total CO2 ABG O2 Saturation ABG Base Excess ABG Hemoglobin ABG Carboxyhemoglobin POC ABG HHb (Measured) ABG Methemoglobin Daniel Test A-a O2 Difference Respiratory Index Hgb O2 Saturation FiO2 Tidal Volume PEEP Sodium 145 Potassium 3.5 L Chloride 109 H Carbon Dioxide 25 Anion Gap 14 BUN 20 H Creatinine 0.9 Est GFR ( Amer) > 60 Est GFR (Non-Af Amer) > 60 POC Glucose (mg/dL) Random Glucose 141 H Calcium 8.0 L Phosphorus 3.4 Magnesium 1.4 L Total Bilirubin 0.7 AST 31 ALT 35 Alkaline Phosphatase 115 Total Protein 6.1 L Albumin 3.1 L Globulin 3.0 Albumin/Globulin Ratio 1.1 Procalcitonin Levetiracetam 7.1 05/04/17 05/04/17 05/04/17 09:05 11:37 12:49 WBC RBC Hgb Hct MCV MCH MCHC RDW Plt Count MPV Neut % (Auto) Lymph % (Auto) [place] % (Auto) Eos % (Auto) Baso % (Auto) Neut # Lymph # [place] # Eos # Baso # Puncture Site Rb pCO2 37 pO2 182 H HCO3 25.2 ABG pH 7.43 ABG Total CO2 25.7 ABG O2 Saturation 99.4 H ABG Base Excess 0.4 ABG Hemoglobin 9.3 L ABG Carboxyhemoglobin 1.3 POC ABG HHb (Measured) 0.6 ABG Methemoglobin 1.6 Daniel Test Na A-a O2 Difference 128.0 Respiratory Index 0.7 Hgb O2 Saturation 96.5 FiO2 50.0 Tidal Volume 450 PEEP 5 Sodium Potassium Chloride Carbon Dioxide Anion Gap BUN Creatinine Est GFR ( Amer) Est GFR (Non-Af Amer) POC Glucose (mg/dL) 110 Random Glucose Calcium Phosphorus Magnesium Total Bilirubin AST ALT Alkaline Phosphatase Total Protein Albumin Globulin Albumin/Globulin Ratio Procalcitonin 0.47 Levetiracetam 05/04/17 05/05/17 17:52 00:14 WBC RBC Hgb Hct MCV MCH MCHC RDW Plt Count MPV Neut % (Auto) Lymph % (Auto) [place] % (Auto) Eos % (Auto) Baso % (Auto) Neut # Lymph # [place] # Eos # Baso # Puncture Site pCO2 pO2 HCO3 ABG pH ABG Total CO2 ABG O2 Saturation ABG Base Excess ABG Hemoglobin ABG Carboxyhemoglobin POC ABG HHb (Measured) ABG Methemoglobin Daniel Test A-a O2 Difference Respiratory Index Hgb O2 Saturation FiO2 Tidal Volume PEEP Sodium Potassium Chloride Carbon Dioxide Anion Gap BUN Creatinine Est GFR ( Amer) Est GFR (Non-Af Amer) POC Glucose (mg/dL) 94 76 Random Glucose Calcium Phosphorus Magnesium Total Bilirubin AST ALT Alkaline Phosphatase Total Protein Albumin Globulin Albumin/Globulin Ratio Procalcitonin Levetiracetam Attending/Attestation - Attestation I have personally seen and examined this patient.: Yes I have fully participated in the care of the patient.: Yes I have reviewed all pertinent clinical information: Yes Notes (Text): Agree with the resident notes, discussion was made to during the rounds. Labs reviewed Continue the current treatment
[2017-04-25] MEDS ORDERED: Sodium Chloride 0.9% 1,000 ML IV ONE (08:30)
[2017-04-25] MEDS ORDERED: Lidocaine 1% Inj (20ml) ONE (08:37)
--- NOTE | 2017-04-25 08:51 | CP.PCM.PN ---
Subjective - Date & Time of Evaluation Date of Evaluation: 04/25/17 Time of Evaluation: 08:50 - Subjective Subjective: no test patient has been in icu on a ventilator and has not had sexual relations Objective - Vital Signs/Intake and Output Vital Signs (last 24 hours): Temp Pulse Resp BP Pulse Ox 100.8 F H 103 H 15 100/63 100 04/25/17 08:00 04/25/17 08:00 04/25/17 08:00 04/25/17 07:30 04/25/17 08:00 Intake and Output: 04/25/17 04/25/17 06:59 18:59 Intake Total 902.5 71.8 Output Total 1635 130 Balance -732.5 -58.2 - Medications Medications: Current Medications Acetaminophen (Tylenol 650mg/20.3ml Solution Ud) 650 mg PO Q6 PRN PRN Reason: Temperature Last Admin: 04/24/17 12:14 Dose: 650 mg Acetaminophen (Tylenol 650 Mg Supp) 650 mg [place] Q4 PRN PRN Reason: Fever >100.4 F Albuterol/Ipratropium (Duoneb 3 Mg/0.5 Mg (3 Ml) Ud) 3 ml INH RQ6 [facility] Last Admin: 04/25/17 07:00 Dose: 3 ml Ascorbic Acid (Vitamin C 500 Mg Tab) 500 mg PO DAILY [facility] Last Admin: 04/24/17 09:43 Dose: 500 mg Calcium Acetate (Phoslo) 667 mg PO BIDCC [facility] Last Admin: 04/25/17 07:33 Dose: Not Given Haloperidol Lactate (Haldol) 1 mg IVP BID PRN PRN Reason: Agitation Last Admin: 04/17/17 00:00 Dose: 1 mg Hydromorphone HCl (Dilaudid) 1 mg IVP Q3 PRN PRN Reason: Pain, severe (8-10) Last Admin: 04/24/17 08:11 Dose: 1 mg Fluconazole (Diflucan Iv 200 Mg/100 Ml Ns) 100 mls @ 100 mls/hr IVPB DAILY [facility] Last Admin: 04/24/17 09:43 Dose: 100 mls/hr Vasopressin 40 units/ Sodium (Chloride) 40 mls @ 0.6 mls/hr IV .Q24H PRN; Protocol; 0.01 UNITS/MIN PRN Reason: TITRATE PER PROTOCOL Last Titration: 04/22/17 00:39 Dose: 0 units/min, 0 mls/hr Dexmedetomidine HCl 400 mcg/ (Sodium Chloride) 100 mls @ 3.4 mls/hr IV TITR PRN ; Protocol; 0.2 MCG/KG/HR PRN Reason: Agitation Last Admin: 04/25/17 06:30 Dose: 1.4 mcg/kg/hr, 23.8 mls/hr Cefepime HCl (Maxipime Iv 1 Gm Premix) 1 gm in 50 mls @ 100 mls/hr IVPB Q24H [facility] Last Admin: 04/24/17 18:39 Dose: 100 mls/hr Vancomycin HCl 500 mg/ Sodium (Chloride) 100 mls @ 100 mls/hr IVPB MWF [facility] Last Admin: 04/22/17 09:54 Dose: 100 mls/hr Morphine Sulfate 250 mg/ (Sodium Chloride) 250 mls @ 0 mls/hr IV .Q0M PRN; Per Protocol PRN Reason: Protocol Last Admin: 04/24/17 22:30 Dose: 8 ml/hr, 8 mls/hr Metronidazole (Flagyl) 500 mg in 100 mls @ 100 mls/hr IVPB Q8 [facility] Last Admin: 04/25/17 06:00 Dose: 100 mls/hr Levetiracetam (Keppra) 250 mg PO BID [facility] Last Admin: 04/24/17 17:08 Dose: 250 mg Lorazepam (Ativan) 0.5 mg IVP Q3H PRN PRN Reason: Anxiety Last Admin: 04/23/17 11:06 Dose: 0.5 mg Lorazepam (Ativan) 2 mg IVP Q4H PRN PRN Reason: Seizure activity Last Admin: 04/24/17 23:21 Dose: 2 mg Ondansetron HCl (Zofran Inj) 4 mg IVP Q6H PRN PRN Reason: Nausea/Vomiting Last Admin: 04/11/17 21:39 Dose: 4 mg Pantoprazole Sodium (Protonix Inj) 20 mg IVP BID [facility] Last Admin: 04/24/17 17:08 Dose: 20 mg Saccharomyces Boulardii (Florastor) 250 mg PO BID [facility] Last Admin: 04/24/17 17:08 Dose: 250 mg Thiamine HCl (Vitamin B1 Tab) 100 mg PO DAILY [facility] Last Admin: 04/24/17 09:44 Dose: 100 mg - Labs Labs: 04/25/17 06:25 04/25/17 06:25 PT 14.0 SECONDS (9.7-12.2) H 04/25/17 06:25 INR 1.2 04/25/17 06:25 APTT 32 SECONDS (21-34) 04/25/17 06:25
--- NOTE | 2017-04-25 08:52 | RAD ---
Chest x-ray single frontal view History: Intubated. Comparison: 04/24/2017 Findings: Lines and tubes in stable position. Surgical clips in the upper abdomen. Mild to moderate venous congestion. Right hilar prominence. Heart size within normal limits. Impression: Mild to moderate venous congestion. Right hilar prominence.
[2017-04-25] MEDS ORDERED: Phenylephrine 10 mg/ml Inj ONE (08:54)
[2017-04-25] MEDS ORDERED: Iohexol 240 (50 ml) ONE (09:30)
[2017-04-25] MEDS: Saccharomyces Boulardi 250 mg Cap PO SCH ×2 (10:11→17:00)
--- NOTE | 2017-04-25 10:35 | PCM.SURG1 ---
Surgeon's Initial Post Op Note - Surgeon's Notes Surgeon: Dr. Mendez Yard Truck Driver: Heriberto Saleem PGY2 Type of Anesthesia: General Endo Pre-Operative Diagnosis: Respiratory failure Operative Findings: trach in trachial ring Post-Operative Diagnosis: SAme Operation Performed: percutaneous tracheostomy insertion Specimen/Specimens Removed: None Estimated Blood Loss: EBL {In ML}: 10 Blood Products Given: N/A Drains Used: No Drains Post-Op Condition: Poor Date of Surgery/Procedure: 04/25/17 Time of Surgery/Procedure: 10:35
--- NOTE | 2017-04-25 10:47 | RAD ---
PROCEDURE: Intraoperative Fluoroscopy. HISTORY: RENAL FAILURE FINDINGS: Fluoroscopic assistance was provided for right central venous catheter placement. Please refer to the operative report from
--- NOTE | 2017-04-25 11:16 | CP.PCM.PN ---
Subjective - Date & Time of Evaluation Date of Evaluation: 04/25/17 Time of Evaluation: 11:13 - Subjective Subjective: s/p trach last dialysis 04/23- UF 1500ml UO increased- 775 ml this AM CXR - probably mild CHF pattern remains sedated; GT feeds to restart Objective - Vital Signs/Intake and Output Vital Signs (last 24 hours): Temp Pulse Resp BP Pulse Ox 100.8 F H 131 H 18 87/46 L 93 L 04/25/17 08:00 04/25/17 11:02 04/25/17 11:02 04/25/17 11:02 04/25/17 11:02 Intake and Output: 04/25/17 04/25/17 06:59 18:59 Intake Total 902.5 103.1 Output Total 1635 255 Balance -732.5 -151.9 - Medications Medications: Current Medications Acetaminophen (Tylenol 650mg/20.3ml Solution Ud) 650 mg PO Q6 PRN PRN Reason: Temperature Last Admin: 04/24/17 12:14 Dose: 650 mg Acetaminophen (Tylenol 650 Mg Supp) 650 mg [place] Q4 PRN PRN Reason: Fever >100.4 F Albuterol/Ipratropium (Duoneb 3 Mg/0.5 Mg (3 Ml) Ud) 3 ml INH RQ6 [facility] Last Admin: 04/25/17 07:00 Dose: 3 ml Ascorbic Acid (Vitamin C 500 Mg Tab) 500 mg PO DAILY [facility] Last Admin: 04/25/17 10:12 Dose: Not Given Calcium Acetate (Phoslo) 667 mg PO BIDCC [facility] Last Admin: 04/25/17 07:33 Dose: Not Given Haloperidol Lactate (Haldol) 1 mg IVP BID PRN PRN Reason: Agitation Last Admin: 04/17/17 00:00 Dose: 1 mg Hydromorphone HCl (Dilaudid) 1 mg IVP Q3 PRN PRN Reason: Pain, severe (8-10) Last Admin: 04/24/17 08:11 Dose: 1 mg Fluconazole (Diflucan Iv 200 Mg/100 Ml Ns) 100 mls @ 100 mls/hr IVPB DAILY [facility] Last Admin: 04/24/17 09:43 Dose: 100 mls/hr Vasopressin 40 units/ Sodium (Chloride) 40 mls @ 0.6 mls/hr IV .Q24H PRN; Protocol; 0.01 UNITS/MIN PRN Reason: TITRATE PER PROTOCOL Last Titration: 04/22/17 00:39 Dose: 0 units/min, 0 mls/hr Dexmedetomidine HCl 400 mcg/ (Sodium Chloride) 100 mls @ 3.4 mls/hr IV TITR PRN ; Protocol; 0.2 MCG/KG/HR PRN Reason: Agitation Last Admin: 04/25/17 06:30 Dose: 1.4 mcg/kg/hr, 23.8 mls/hr Cefepime HCl (Maxipime Iv 1 Gm Premix) 1 gm in 50 mls @ 100 mls/hr IVPB Q24H [facility] Last Admin: 04/24/17 18:39 Dose: 100 mls/hr Vancomycin HCl 500 mg/ Sodium (Chloride) 100 mls @ 100 mls/hr IVPB MWF [facility] Last Admin: 04/22/17 09:54 Dose: 100 mls/hr Morphine Sulfate 250 mg/ (Sodium Chloride) 250 mls @ 0 mls/hr IV .Q0M PRN; Per Protocol PRN Reason: Protocol Last Admin: 04/24/17 22:30 Dose: 8 ml/hr, 8 mls/hr Metronidazole (Flagyl) 500 mg in 100 mls @ 100 mls/hr IVPB Q8 [facility] Last Admin: 04/25/17 06:00 Dose: 100 mls/hr Levetiracetam (Keppra) 250 mg PO BID [facility] Last Admin: 04/25/17 10:11 Dose: Not Given Lorazepam (Ativan) 0.5 mg IVP Q3H PRN PRN Reason: Anxiety Last Admin: 04/23/17 11:06 Dose: 0.5 mg Lorazepam (Ativan) 2 mg IVP Q4H PRN PRN Reason: Seizure activity Last Admin: 04/24/17 23:21 Dose: 2 mg Ondansetron HCl (Zofran Inj) 4 mg IVP Q6H PRN PRN Reason: Nausea/Vomiting Last Admin: 04/11/17 21:39 Dose: 4 mg Pantoprazole Sodium (Protonix Inj) 20 mg IVP BID [facility] Last Admin: 04/24/17 17:08 Dose: 20 mg Saccharomyces Boulardii (Florastor) 250 mg PO BID [facility] Last Admin: 04/25/17 10:11 Dose: Not Given Thiamine HCl (Vitamin B1 Tab) 100 mg PO DAILY [facility] Last Admin: 04/25/17 10:12 Dose: Not Given - Labs Labs: 04/25/17 06:25 04/25/17 06:25 PT 14.0 SECONDS (9.7-12.2) H 04/25/17 06:25 INR 1.2 04/25/17 06:25 APTT 32 SECONDS (21-34) 04/25/17 06:25 - Constitutional Appears: Older Than Stated Age, Chronically Ill - Head Exam Head Exam: ATRAUMATIC, NORMAL INSPECTION - Eye Exam Eye Exam: EOMI, Normal appearance - Neck Exam Neck Exam: Normal Inspection. absent: Tenderness - Respiratory Exam Respiratory Exam: Clear to Ausculation Bilateral, NORMAL BREATHING PATTERN - Cardiovascular Exam Cardiovascular Exam: Tachycardia, +S1 - GI/Abdominal Exam GI & Abdominal Exam: Soft. absent: Tenderness - Extremities Exam Extremities Exam: Normal Inspection. absent: Tenderness - Neurological Exam Neurological Exam: Alert, CN II-XII Intact - Skin Skin Exam: Dry, Warm Assessment and Plan (1) JIMBO (acute kidney injury) Status: Acute (2) Acute pancreatitis Status: Acute (3) SBO (small bowel obstruction) Status: Acute (4) Schizophrenia Status: Acute - Assessment and Plan (Free Text) Plan: Hold dialysis for now Monitor daily UO, lytes cloisely and determine need for HD
[2017-04-25] MEDS: Sodium Chloride 0.9% 1,000 ML IV SCH ×2 (11:38→21:30)
[2017-04-25] MEDS: Fluconazole IV 200mg/100 ml NS 100 ML IVPB SCH (11:39)
--- NOTE | 2017-04-25 11:40 | CP.PCM.PN ---
Subjective - Date & Time of Evaluation Date of Evaluation: 04/25/17 Time of Evaluation: 11:35 - Subjective Subjective: Ms. Rivera was seen and examined at the bedside in ICU. She is responsive to tactile stimuli. She has trach connected to a mechanical ventilator.Currently, she is on morphine drip at 10 mg/hr and precedex 1.4 mcg/kg/hr. She has the GCS- 4T.She has the bilateral hand mitten for patient safety. She still has the focal seizures of her left hand. There was no untoward events overnight. Objective - Vital Signs/Intake and Output Vital Signs (last 24 hours): Temp Pulse Resp BP Pulse Ox 100.8 F H 131 H 18 87/46 L 93 L 04/25/17 08:00 04/25/17 11:02 04/25/17 11:02 04/25/17 11:02 04/25/17 11:02 Intake and Output: 04/25/17 04/25/17 06:59 18:59 Intake Total 902.5 203.1 Output Total 1635 255 Balance -732.5 -51.9 - Medications Medications: Current Medications Acetaminophen (Tylenol 650mg/20.3ml Solution Ud) 650 mg PO Q6 PRN PRN Reason: Temperature Last Admin: 04/24/17 12:14 Dose: 650 mg Acetaminophen (Tylenol 650 Mg Supp) 650 mg [place] Q4 PRN PRN Reason: Fever >100.4 F Albuterol/Ipratropium (Duoneb 3 Mg/0.5 Mg (3 Ml) Ud) 3 ml INH RQ6 [facility] Last Admin: 04/25/17 07:00 Dose: 3 ml Ascorbic Acid (Vitamin C 500 Mg Tab) 500 mg PO DAILY [facility] Last Admin: 04/25/17 10:12 Dose: Not Given Calcium Acetate (Phoslo) 667 mg PO BIDCC [facility] Last Admin: 04/25/17 07:33 Dose: Not Given Haloperidol Lactate (Haldol) 1 mg IVP BID PRN PRN Reason: Agitation Last Admin: 04/17/17 00:00 Dose: 1 mg Hydromorphone HCl (Dilaudid) 1 mg IVP Q3 PRN PRN Reason: Pain, severe (8-10) Last Admin: 04/24/17 08:11 Dose: 1 mg Fluconazole (Diflucan Iv 200 Mg/100 Ml Ns) 100 mls @ 100 mls/hr IVPB DAILY [facility] Last Admin: 04/24/17 09:43 Dose: 100 mls/hr Vasopressin 40 units/ Sodium (Chloride) 40 mls @ 0.6 mls/hr IV .Q24H PRN; Protocol; 0.01 UNITS/MIN PRN Reason: TITRATE PER PROTOCOL Last Titration: 04/22/17 00:39 Dose: 0 units/min, 0 mls/hr Dexmedetomidine HCl 400 mcg/ (Sodium Chloride) 100 mls @ 3.4 mls/hr IV TITR PRN ; Protocol; 0.2 MCG/KG/HR PRN Reason: Agitation Last Admin: 04/25/17 06:30 Dose: 1.4 mcg/kg/hr, 23.8 mls/hr Cefepime HCl (Maxipime Iv 1 Gm Premix) 1 gm in 50 mls @ 100 mls/hr IVPB Q24H [facility] Last Admin: 04/24/17 18:39 Dose: 100 mls/hr Vancomycin HCl 500 mg/ Sodium (Chloride) 100 mls @ 100 mls/hr IVPB MWF [facility] Last Admin: 04/22/17 09:54 Dose: 100 mls/hr Morphine Sulfate 250 mg/ (Sodium Chloride) 250 mls @ 0 mls/hr IV .Q0M PRN; Per Protocol PRN Reason: Protocol Last Admin: 04/24/17 22:30 Dose: 8 ml/hr, 8 mls/hr Metronidazole (Flagyl) 500 mg in 100 mls @ 100 mls/hr IVPB Q8 [facility] Last Admin: 04/25/17 06:00 Dose: 100 mls/hr Sodium Chloride (Sodium Chloride 0.9%) 1,000 mls @ 100 mls/hr IV .Q10H [facility] Levetiracetam (Keppra) 250 mg PO BID [facility] Last Admin: 04/25/17 10:11 Dose: Not Given Lorazepam (Ativan) 0.5 mg IVP Q3H PRN PRN Reason: Anxiety Last Admin: 04/23/17 11:06 Dose: 0.5 mg Lorazepam (Ativan) 2 mg IVP Q4H PRN PRN Reason: Seizure activity Last Admin: 04/24/17 23:21 Dose: 2 mg Ondansetron HCl (Zofran Inj) 4 mg IVP Q6H PRN PRN Reason: Nausea/Vomiting Last Admin: 04/11/17 21:39 Dose: 4 mg Pantoprazole Sodium (Protonix Inj) 20 mg IVP BID [facility] Last Admin: 04/24/17 17:08 Dose: 20 mg Saccharomyces Boulardii (Florastor) 250 mg PO BID [facility] Last Admin: 04/25/17 10:11 Dose: Not Given Thiamine HCl (Vitamin B1 Tab) 100 mg PO DAILY [facility] Last Admin: 04/25/17 10:12 Dose: Not Given - Labs Labs: 04/25/17 06:25 04/25/17 06:25 PT 14.0 SECONDS (9.7-12.2) H 04/25/17 06:25 INR 1.2 04/25/17 06:25 APTT 32 SECONDS (21-34) 04/25/17 06:25 - Constitutional Appears: No Acute Distress - Head Exam Head Exam: NORMAL INSPECTION - Eye Exam Additional comments: sluggish to react. - Neurological Exam Neuro motor strength exam: Left Upper Extremity: 2/1, Right Upper Extremity: 2/1 , Left Lower Extremity: 2/1, Right Lower Extremity: 2/1 Additional comments: GCS-4T. Assessment and Plan (1) Focal seizure Assessment & Plan: Case discussed with Dr. Bryant, continue all current medical regimen. Pending EEG. Status: Acute
--- NOTE | 2017-04-25 13:13 | RAD ---
HISTORY: s/p trach COMPARISON: Chest x-ray performed earlier the same day. TECHNIQUE: Chest, one view. FINDINGS: Examination limited by habitus and hypoinflation. Tracheostomy tube. Right sided dialysis catheter with distal leads at the cavoatrial junction/right atrium. LUNGS: Mild pulmonary venous congestion. No focal consolidation. Please note that chest x-ray has limited sensitivity for the detection of pulmonary masses. PLEURA: No significant pleural effusion identified. No definite pneumothorax . CARDIOVASCULAR: Heart size appears within normal limits. OSSEOUS STRUCTURES: No acute osseous abnormality identified. VISUALIZED UPPER ABDOMEN: Unremarkable. OTHER FINDINGS: None. IMPRESSION: Tracheostomy tube. Right sided dialysis catheter with distal leads at the cavoatrial junction/right atrium. Mild pulmonary venous congestion.
--- NOTE | 2017-04-25 14:19 | CP.PCM.PN ---
<Lavern Long - Last Filed: 04/25/17 15:28> Subjective - Date & Time of Evaluation Date of Evaluation: 04/25/17 Time of Evaluation: 14:05 - Subjective Subjective: GI progress note for Dr Meade's service Patient is s/p peg and right sided HD catheter placement. Patient is still requiring pressors, on levophed at 1 mg/hr, with SBP of 70s-90s, and HR in th 115-130S. Patient saturating at 100% on PRVC with FIO2 of 40%, PEEP of 5, TV of 450. Patient is wake, not responsive to verbal commands, respond to pain, on light sedation with dexmedetomidine. Tmax of 102.6, with temperature of 100.8 at 8 am this morning. No bowel movement, + serosanguineous fluid in the ostomy bag. Objective - Vital Signs/Intake and Output Vital Signs (last 24 hours): Temp Pulse Resp BP Pulse Ox 99.7 F H 123 H 15 87/49 L 98 04/25/17 12:00 04/25/17 13:02 04/25/17 13:02 04/25/17 13:02 04/25/17 13:02 Intake and Output: 04/25/17 04/25/17 06:59 18:59 Intake Total 902.5 433.8 Output Total 1635 365 Balance -732.5 68.8 - Medications Medications: Current Medications Acetaminophen (Tylenol 650mg/20.3ml Solution Ud) 650 mg PO Q6 PRN PRN Reason: Temperature Last Admin: 04/24/17 12:14 Dose: 650 mg Acetaminophen (Tylenol 650 Mg Supp) 650 mg [place] Q4 PRN PRN Reason: Fever >100.4 F Albuterol/Ipratropium (Duoneb 3 Mg/0.5 Mg (3 Ml) Ud) 3 ml INH RQ6 [facility] Last Admin: 04/25/17 07:00 Dose: 3 ml Ascorbic Acid (Vitamin C 500 Mg Tab) 500 mg PO DAILY [facility] Last Admin: 04/25/17 10:12 Dose: Not Given Calcium Acetate (Phoslo) 667 mg PO BIDCC [facility] Last Admin: 04/25/17 07:33 Dose: Not Given Haloperidol Lactate (Haldol) 1 mg IVP BID PRN PRN Reason: Agitation Last Admin: 04/17/17 00:00 Dose: 1 mg Hydromorphone HCl (Dilaudid) 1 mg IVP Q3 PRN PRN Reason: Pain, severe (8-10) Last Admin: 04/24/17 08:11 Dose: 1 mg Fluconazole (Diflucan Iv 200 Mg/100 Ml Ns) 100 mls @ 100 mls/hr IVPB DAILY [facility] Last Admin: 04/25/17 11:39 Dose: 100 mls/hr Vasopressin 40 units/ Sodium (Chloride) 40 mls @ 0.6 mls/hr IV .Q24H PRN; Protocol; 0.01 UNITS/MIN PRN Reason: TITRATE PER PROTOCOL Last Titration: 04/22/17 00:39 Dose: 0 units/min, 0 mls/hr Dexmedetomidine HCl 400 mcg/ (Sodium Chloride) 100 mls @ 3.4 mls/hr IV TITR PRN ; Protocol; 0.2 MCG/KG/HR PRN Reason: Agitation Last Titration: 04/25/17 13:27 Dose: 0.64 mcg/kg/hr, 11 mls/hr Cefepime HCl (Maxipime Iv 1 Gm Premix) 1 gm in 50 mls @ 100 mls/hr IVPB Q24H [facility] Last Admin: 04/24/17 18:39 Dose: 100 mls/hr Vancomycin HCl 500 mg/ Sodium (Chloride) 100 mls @ 100 mls/hr IVPB MWF [facility] Last Admin: 04/25/17 11:39 Dose: 100 mls/hr Morphine Sulfate 250 mg/ (Sodium Chloride) 250 mls @ 0 mls/hr IV .Q0M PRN; Per Protocol PRN Reason: Protocol Last Titration: 04/25/17 13:28 Dose: 1 mls/hr Metronidazole (Flagyl) 500 mg in 100 mls @ 100 mls/hr IVPB Q8 [facility] Last Admin: 04/25/17 06:00 Dose: 100 mls/hr Sodium Chloride (Sodium Chloride 0.9%) 1,000 mls @ 100 mls/hr IV .Q10H [facility] Last Admin: 04/25/17 11:38 Dose: 100 mls/hr Levetiracetam (Keppra) 250 mg PO BID [facility] Last Admin: 04/25/17 10:11 Dose: Not Given Lorazepam (Ativan) 0.5 mg IVP Q3H PRN PRN Reason: Anxiety Last Admin: 04/23/17 11:06 Dose: 0.5 mg Lorazepam (Ativan) 2 mg IVP Q4H PRN PRN Reason: Seizure activity Last Admin: 04/24/17 23:21 Dose: 2 mg Ondansetron HCl (Zofran Inj) 4 mg IVP Q6H PRN PRN Reason: Nausea/Vomiting Last Admin: 04/11/17 21:39 Dose: 4 mg Pantoprazole Sodium (Protonix Inj) 20 mg IVP BID [facility] Last Admin: 04/25/17 11:38 Dose: 20 mg Saccharomyces Boulardii (Florastor) 250 mg PO BID [facility] Last Admin: 04/25/17 10:11 Dose: Not Given Thiamine HCl (Vitamin B1 Tab) 100 mg PO DAILY [facility] Last Admin: 04/25/17 10:12 Dose: Not Given - Labs Labs: 04/25/17 06:25 04/25/17 06:25 PT 14.0 SECONDS (9.7-12.2) H 04/25/17 06:25 INR 1.2 04/25/17 06:25 APTT 32 SECONDS (21-34) 04/25/17 06:25 Assessment and Plan - Assessment and Plan (Free Text) Assessment: Patient is a 36 y/o with PMHx of schizophrenia, and mental disability whom presented with abdominal pain and 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 1. SMA syndrome 2. Anemia 3. Septic shock 4. Hemorrhagic/ischemic gastropathy 5. Phytobezor, marked stomach distention 6. Complicated Acute pancreatitis 7. Renal failure s/p HD 8. s/p Asim-en-Y gastrojejunostomy, jejunostomy feeding tube Plan: - Patient continues to spike temp despite broadspectrum antibiotics. - Will obtain CT abdomen and pelvis with po and IV contrast to evaluate for intra-abdominal infection prior to HD. - HGB stable at 9.7. - C/W feeding tube via jejunostomy - Critical care management as per ICU team. - Patient is also being followed by neurology for possible seizures - Please call with any questions. Patient seen, examined and case discussed with Dr Meade. <Dov Meade - Last Filed: 04/25/17 20:58> Objective - Vital Signs/Intake and Output Vital Signs (last 24 hours): Temp Pulse Resp BP Pulse Ox 102 F H 139 H 13 101/53 L 95 04/25/17 19:45 04/25/17 19:00 04/25/17 19:00 04/25/17 18:45 04/25/17 19:00 Intake and Output: 04/25/17 04/26/17 18:59 06:59 Intake Total 1370.8 288.4 Output Total 670 90 Balance 700.8 198.4 - Medications Medications: Current Medications Acetaminophen (Tylenol 650 Mg Supp) 650 mg [place] Q4 PRN PRN Reason: Fever >100.4 F Last Admin: 04/25/17 19:45 Dose: 650 mg Albuterol/Ipratropium (Duoneb 3 Mg/0.5 Mg (3 Ml) Ud) 3 ml INH RQ6 [facility] Last Admin: 04/25/17 20:12 Dose: 3 ml Ascorbic Acid (Vitamin C 500 Mg Tab) 500 mg PO DAILY [facility] Last Admin: 04/25/17 10:12 Dose: Not Given Calcium Acetate (Phoslo) 667 mg PO BIDCC [facility] Last Admin: 04/25/17 16:24 Dose: Not Given Haloperidol Lactate (Haldol) 1 mg IVP BID PRN PRN Reason: Agitation Last Admin: 04/17/17 00:00 Dose: 1 mg Hydromorphone HCl (Dilaudid) 1 mg IVP Q3 PRN PRN Reason: Pain, severe (8-10) Last Admin: 04/25/17 16:49 Dose: 1 mg Fluconazole (Diflucan Iv 200 Mg/100 Ml Ns) 100 mls @ 100 mls/hr IVPB DAILY [facility] Last Admin: 04/25/17 11:39 Dose: 100 mls/hr Vasopressin 40 units/ Sodium (Chloride) 40 mls @ 0.6 mls/hr IV .Q24H PRN; Protocol; 0.01 UNITS/MIN PRN Reason: TITRATE PER PROTOCOL Last Titration: 04/22/17 00:39 Dose: 0 units/min, 0 mls/hr Dexmedetomidine HCl 400 mcg/ (Sodium Chloride) 100 mls @ 3.4 mls/hr IV TITR PRN ; Protocol; 0.2 MCG/KG/HR PRN Reason: Agitation Last Titration: 04/25/17 19:08 Dose: 0.83 mcg/kg/hr, 14.2 mls/hr Cefepime HCl (Maxipime Iv 1 Gm Premix) 1 gm in 50 mls @ 100 mls/hr IVPB Q24H [facility] Last Admin: 04/25/17 18:53 Dose: 100 mls/hr Vancomycin HCl 500 mg/ Sodium (Chloride) 100 mls @ 100 mls/hr IVPB MWF [facility] Last Admin: 04/25/17 11:39 Dose: 100 mls/hr Metronidazole (Flagyl) 500 mg in 100 mls @ 100 mls/hr IVPB Q8 [facility] Last Admin: 04/25/17 14:31 Dose: 100 mls/hr Sodium Chloride (Sodium Chloride 0.9%) 1,000 mls @ 100 mls/hr IV .Q10H [facility] Last Admin: 04/25/17 11:38 Dose: 100 mls/hr Levetiracetam (Keppra) 250 mg PO BID [facility] Last Admin: 04/25/17 17:00 Dose: Not Given Lorazepam (Ativan) 0.5 mg IVP Q3H PRN PRN Reason: Anxiety Last Admin: 04/23/17 11:06 Dose: 0.5 mg Lorazepam (Ativan) 2 mg IVP Q4H PRN PRN Reason: Seizure activity Last Admin: 04/25/17 20:52 Dose: 2 mg Morphine Sulfate (Morphine) 2 mg IV Q6 PRN PRN Reason: Pain, severe (8-10) Ondansetron HCl (Zofran Inj) 4 mg IVP Q6H PRN PRN Reason: Nausea/Vomiting Last Admin: 04/11/17 21:39 Dose: 4 mg Pantoprazole Sodium (Protonix Inj) 20 mg IVP BID [facility] Last Admin: 04/25/17 17:00 Dose: 20 mg Saccharomyces Boulardii (Florastor) 250 mg PO BID [facility] Last Admin: 04/25/17 17:00 Dose: Not Given Thiamine HCl (Vitamin B1 Tab) 100 mg PO DAILY [facility] Last Admin: 04/25/17 10:12 Dose: Not Given - Labs Labs: 04/25/17 06:25 04/25/17 06:25 PT 14.0 SECONDS (9.7-12.2) H 04/25/17 06:25 INR 1.2 04/25/17 06:25 APTT 32 SECONDS (21-34) 04/25/17 06:25 Attending/Attestation - Attestation I have personally seen and examined this patient.: Yes I have fully participated in the care of the patient.: Yes I have reviewed all pertinent clinical information, including history, physical exam and plan: Yes Notes (Text): 04/25/17 20:57 37 year old female with h/o mental disability/schizophrenia who is admitted with abdominal pain, found to have severe gastric distention, acute pancreatitis , gastric bezoar, severe upper GI bleeding due to gastric ulceration due to SMA syndrome. 1. SMA syndrome 2. Fever 3. Gastric ulcer Plan: -s/p gastro-jejunostomy as well as a feeding jejunostomy 1 week ago -she is tolerating tube feeds, no bm -daily fevers -on dialysis -s/p trach, s/p perm cath and picc -neuro eval for seizure -would recommend CT abdomen/pelvis considering persistent fever to r/o intra- abdominal infection
--- NOTE | 2017-04-25 15:48 | RAD ---
HISTORY: post PICC line insertion COMPARISON: 04/25/2017 FINDINGS: LUNGS: No active pulmonary disease. PLEURA: No significant pleural effusion identified, no pneumothorax apparent. CARDIOVASCULAR: Normal heart size. Tracheostomy tube. Right PermCath. Left PICC catheter terminates in the region of the right atrium. OSSEOUS STRUCTURES: No significant abnormalities. VISUALIZED UPPER ABDOMEN: Normal. OTHER FINDINGS: None. IMPRESSION: New left PICC catheter terminates in the region of the right atrium.
[2017-04-25] MEDS: Cefepime IV 1 gm in Dextrose 1 GM/50 ML BAG IVPB SCH (18:53)
--- NOTE | 2017-04-25 21:18 | OP ---
PROCEDURE DATE: 04/25/2017 PREOPERATIVE DIAGNOSES: Renal failure and respiratory failure. POSTOPERATIVE DIAGNOSES: Renal failure and respiratory failure. PROCEDURE CARRIED OUT: Right subclavian Perm-A-Cath with C-arm fluoroscopy. SURGEON: El Mendez Jr., MD. ARMED GUARD: Dr. Heriberto Saleem. ANESTHESIOLOGIST: Mr. Fay. INDICATIONS: The patient is a young woman with multiple problems including renal insufficiency. Subclavian site was chosen because of the accompanying tracheostomy. DESCRIPTION OF PROCEDURE: 1. Patient was given general anesthesia and using anatomic landmarks, the right subclavian vein was punctured using micropuncture technique. A guidewire was advanced centrally and the catheter was positioned with the tip adjacent to the superior vena cava and right atrium. This overhung the vena cava and the right atrium. 2. Percutaneous tracheostomy: After this, catheter had been positioned appropriately and had to be revised. We tunneled it under the skin, attached it, flushed with heparinized saline and there was good return in both directions. We then carried out the percutaneous tracheostomy procedure. The patient landmarks were selected using bronchoscopy. The site was identified. A needle punctured through a stiff guidewire, punctured through the dilators involved in the percutaneous tracheostomy were then used and then a #6 trach tube was eventually inserted successfully and secured to the skin. Blood loss of the procedure was minimal for both procedures, less than 20 mL. The patient tolerated the procedure uneventfully. Subsequent to the performance of the tracheostomy, bronchoscopy was carried out until we were in the respiratory trachea with good visualization of the guy. El Mendez Jr., MD
[2017-04-26] MEDS: Albuterol-Ipratrop 3 mg / 0.5 (3 ml) UD INH SCH ×4 (01:30→19:27)
[2017-04-26] MEDS: Sodium Chloride 0.9% 1,000 ML IV SCH ×4 (02:30→18:28)
[2017-04-26 05:43] LABS: ABG ALLEN TEST POS; ARTERIAL BLOOD GAS HCO3 23.7 mmol/L (21-28); ARTERIAL BLOOD GAS HEMOGLOBIN 8.1 g/dL (11.7-17.4); ARTERIAL BLOOD GAS O2 SAT 100.1 % (95-98); ARTERIAL BLOOD GAS PCO2 36 mm/Hg (35-45); ARTERIAL BLOOD GAS PH 7.41 (7.35-7.45); ARTERIAL BLOOD GAS PO2 137 mm/Hg (80-100); ARTERIAL BLOOD GAS TCO2 23.9 mmol/L (22-28)
[2017-04-26] MEDS: metroNIDAZOLE IV 500 mg/100 ml 500 MG/100 ML BAG IVPB SCH ×3 (06:00→23:00)
[2017-04-26 06:53] LABS: HEMOGLOBIN 7.8 g/dL (11.0-16.0); MEAN CORPUSCULAR HEMOGLOBIN 28.6 pg (27.0-31.0); MEAN CORPUSCULAR HGB CONC 32.8 g/dL (33.0-37.0); MEAN PLATELET VOLUME 8.4 fL (7.2-11.7); RBC 2.74 Mil/uL (3.80-5.20); RED CELL DISTRIBUTION WIDTH 15.6 % (11.5-14.5); WHITE BLOOD COUNT 15.2 K/uL (4.8-10.8)
[2017-04-26 07:21] LABS: ALB/GLOB RATIO 0.9 (1.0-2.1); ALBUMIN 2.7 g/dL (3.5-5.0); CALCIUM 7.7 mg/dl (8.6-10.4)
[2017-04-26] MEDS: Dexmedetomidine Hydrochloride 400 MCG in Sodium Chloride 0.9% 96 ML IV PRN ×4 (09:03→23:14)
[2017-04-26] MEDS: Saccharomyces Boulardi 250 mg Cap PO SCH ×2 (09:09→17:24)
--- NOTE | 2017-04-26 09:21 | CP.PCM.PN ---
Subjective - Date & Time of Evaluation Date of Evaluation: 04/26/17 Time of Evaluation: 07:35 - Subjective Subjective: General Surgery Note for Dr. Mendez Patient seen and examined at bedside. No acute event overnight. Patient is s/p percutaneous tracheostomy and R IJ permacath placement POD#1. She is on vent support. She is also being sedated. ROS unobtainable. Urine output was 1150/24 hrs. Masha drain output was 30 cc/24hrs. Objective - Vital Signs/Intake and Output Vital Signs (last 24 hours): Temp Pulse Resp BP Pulse Ox 99.2 F 122 H 18 101/71 100 04/26/17 08:00 04/26/17 09:00 04/26/17 09:00 04/26/17 08:45 04/26/17 09:00 Intake and Output: 04/26/17 04/26/17 06:59 18:59 Intake Total 1880.4 562.6 Output Total 560 85 Balance 1320.4 477.6 - Medications Medications: Current Medications Acetaminophen (Tylenol 650 Mg Supp) 650 mg MN Q4 PRN PRN Reason: Fever >100.4 F Last Admin: 04/25/17 19:45 Dose: 650 mg Albuterol/Ipratropium (Duoneb 3 Mg/0.5 Mg (3 Ml) Ud) 3 ml INH RQ6 [facility] Last Admin: 04/26/17 07:40 Dose: 3 ml Ascorbic Acid (Vitamin C 500 Mg Tab) 500 mg PO DAILY [facility] Last Admin: 04/25/17 10:12 Dose: Not Given Calcium Acetate (Phoslo) 667 mg PO BIDCC [facility] Last Admin: 04/26/17 07:37 Dose: 667 mg Haloperidol Lactate (Haldol) 1 mg IVP BID PRN PRN Reason: Agitation Last Admin: 04/17/17 00:00 Dose: 1 mg Hydromorphone HCl (Dilaudid) 1 mg IVP Q3 PRN PRN Reason: Pain, severe (8-10) Last Admin: 04/25/17 16:49 Dose: 1 mg Fluconazole (Diflucan Iv 200 Mg/100 Ml Ns) 100 mls @ 100 mls/hr IVPB DAILY [facility] Last Admin: 04/25/17 11:39 Dose: 100 mls/hr Vasopressin 40 units/ Sodium (Chloride) 40 mls @ 0.6 mls/hr IV .Q24H PRN; Protocol; 0.01 UNITS/MIN PRN Reason: TITRATE PER PROTOCOL Last Titration: 04/22/17 00:39 Dose: 0 units/min, 0 mls/hr Dexmedetomidine HCl 400 mcg/ (Sodium Chloride) 100 mls @ 3.4 mls/hr IV TITR PRN ; Protocol; 0.2 MCG/KG/HR PRN Reason: Agitation Last Admin: 04/26/17 09:03 Dose: 0.83 mcg/kg/hr, 14.2 mls/hr Cefepime HCl (Maxipime Iv 1 Gm Premix) 1 gm in 50 mls @ 100 mls/hr IVPB Q24H [facility] Last Admin: 04/25/17 18:53 Dose: 100 mls/hr Vancomycin HCl 500 mg/ Sodium (Chloride) 100 mls @ 100 mls/hr IVPB MWF [facility] Last Admin: 04/25/17 11:39 Dose: 100 mls/hr Metronidazole (Flagyl) 500 mg in 100 mls @ 100 mls/hr IVPB Q8 [facility] Last Admin: 04/26/17 06:00 Dose: 100 mls/hr Sodium Chloride (Sodium Chloride 0.9%) 1,000 mls @ 100 mls/hr IV .Q10H [facility] Last Admin: 04/26/17 02:30 Dose: 100 mls/hr Levetiracetam (Keppra) 250 mg PO BID [facility] Last Admin: 04/26/17 09:09 Dose: 250 mg Lorazepam (Ativan) 0.5 mg IVP Q3H PRN PRN Reason: Anxiety Last Admin: 04/23/17 11:06 Dose: 0.5 mg Lorazepam (Ativan) 2 mg IVP Q4H PRN PRN Reason: Seizure activity Last Admin: 04/26/17 06:07 Dose: 2 mg Morphine Sulfate (Morphine) 2 mg IV Q6 PRN PRN Reason: Pain, severe (8-10) Ondansetron HCl (Zofran Inj) 4 mg IVP Q6H PRN PRN Reason: Nausea/Vomiting Last Admin: 04/11/17 21:39 Dose: 4 mg Pantoprazole Sodium (Protonix Inj) 20 mg IVP BID [facility] Last Admin: 04/26/17 09:08 Dose: 20 mg Saccharomyces Boulardii (Florastor) 250 mg PO BID [facility] Last Admin: 04/26/17 09:09 Dose: 250 mg Thiamine HCl (Vitamin B1 Tab) 100 mg PO DAILY [facility] Last Admin: 04/26/17 09:09 Dose: 100 mg - Labs Labs: 04/26/17 06:48 04/26/17 06:49 PT 14.0 SECONDS (9.7-12.2) H 04/25/17 06:25 INR 1.2 04/25/17 06:25 APTT 32 SECONDS (21-34) 04/25/17 06:25 - Constitutional Appears: No Acute Distress - Head Exam Head Exam: ATRAUMATIC, NORMOCEPHALIC - Eye Exam Eye Exam: Normal appearance - ENT Exam ENT Exam: Mucous Membranes Moist - Neck Exam Additional comments: s/p tracheostomy - Respiratory Exam Additional comments: on vent support - GI/Abdominal Exam GI & Abdominal Exam: Soft, Normal Bowel Sounds. absent: Tenderness Additional comments: midline incision clean, dry, and intact Jejunostomy tube in place and functioining properly masha drain in place with serosanginous output - Extremities Exam Extremities Exam: Normal Capillary Refill - Neurological Exam Neurological Exam: Altered - Psychiatric Exam Psychiatric exam: Flat Affect - Skin Skin Exam: Dry, Intact, Normal Color, Warm Assessment and Plan - Assessment and Plan (Free Text) Plan: 36 F s/p ex lap with gastrojejunostomy with jejunostomy tube placement POD#8, s/ p percutaneous tracheostomy and R IJ permacath placement POD#1 -NPO -Tube feeds -Dialysis as per Nephro -Strict I's & O's -Analgesics PRN -Trach sutures to be removed on POD#10 -DVT/GI ppx -Management as per ICU -Discussed with Dr. Andrea Wells PGY1
[2017-04-26] MEDS: Fluconazole IV 200mg/100 ml NS 100 ML IVPB SCH (09:38)
--- NOTE | 2017-04-26 11:53 | CP.CCUPN ---
<Bipin Chopra - Last Filed: 04/26/17 16:17> CCU Subjective - Physician Review Subjective (Free Text): 04/26/17 11:46 Patient seen and examined at bedside. Persistent tachy Will try to wean off vent and put on trach collar Good UO Tolerating feeds, no residuals 04/26/17 16:17 tube feeds were stopped due to one episode of vomiting rechecked no residuals, restarted tube feeds at 10 to increase by 5 to 20 CCU Objective - Vital Signs / Intake & Output Vital Signs (Last 4 hours): Vital Signs Temp Pulse Resp BP Pulse Ox 04/26/17 11:00 124 H 18 100 04/26/17 10:45 125 H 19 106/73 98 04/26/17 09:45 120 H 18 106/67 99 04/26/17 09:00 122 H 18 100 04/26/17 08:45 118 H 18 101/71 93 L 04/26/17 08:00 99.2 F 117 H 18 106/69 100 Intake and Output (Last 8hrs): Intake & Output 04/25/17 04/26/17 04/26/17 22:59 06:59 14:59 Intake Total 1201.8 1303.6 1051.0 Output Total 465 360 335 Balance 736.8 943.6 716.0 Weight 147 lb 9.6 oz Intake: IV 100 100 100 Intake, IV Amount 951.8 913.6 671.0 Left PICC 89.8 113.6 71.0 Left PICC #2 500 Right Antecubital 850 800 100 Right Femoral 1 Rt Femoral 11 Tube Feeding 150 240 150 Other 50 130 Output: Drainage 80 Left Lower Abdomen 30 Right Lower Abdomen 50 Urine 385 360 335 Urethral (Tovar) 385 360 335 - Physical Exam Head: Positive for: Atraumatic, Normocephalic. Negative for: Tenderness Pupils: Positive for: PERRL Extroacular Muscles: Positive for: EOMI Mouth: Positive for: Moist Mucous Membranes. Negative for: Dry, Drooling Nose (External): Positive for: Other (NGT in place) Nose (Internal): Positive for: Normal Inspection, Moist Neck: Positive for: Normal Range of Motion. Negative for: JVD, Lymphadenopathy Respiratory/Chest: Positive for: Clear to Auscultation. Negative for: Respiratory Distress, Accessory Muscle Use Cardiovascular: Positive for: Regular Rate and Rhythm, Normal S1, S2 Abdomen: Positive for: Tenderness (mild tenderness of palpation. patient continues to move her arms towards hands on palpation). Negative for: Distention, Guarding Upper Extremity: Positive for: Normal Inspection, Normal ROM, Capillary Refill < 2s. Negative for: Edema Lower Extremity: Positive for: Normal Inspection. Negative for: Edema Neurological: Positive for: CN II-XII Intact Skin: Positive for: Warm, Pale Psychiatric: Positive for: Alert - Medications Active Medications: Active Medications Generic Name Dose Route Start Last Admin Trade Name Freq PRN Reason Stop Dose Admin Acetaminophen 650 mg 04/20/17 10:17 04/25/17 19:45 Tyl[address] 650 mg Q4 PRN Administration Fever >100.4 F Albuterol/Ipratropium 3 ml 04/18/17 14:00 04/26/17 07:40 Duoneb 3 Mg/0.5 Mg (3 Ml) Ud INH 3 ml RQ6 AGUSTIN Administration Ascorbic Acid 500 mg 04/08/17 12:30 04/26/17 09:37 Vitamin C 500 Mg Tab PO 500 mg DAILY AGUSTIN Administration Calcium Acetate 667 mg 04/23/17 17:00 04/26/17 07:37 Phoslo PO 667 mg BIDCC AGUSTIN Administration Haloperidol Lactate 1 mg 03/29/17 18:47 04/17/17 00:00 Haldol IVP 1 mg BID PRN Administration Agitation Hydromorphone HCl 1 mg 04/17/17 07:16 04/25/17 16:49 Dilaudid IVP 1 mg Q3 PRN Administration Pain, severe (8-10) Fluconazole 100 mls @ 100 mls/hr 04/21/17 10:00 04/26/17 09:38 Diflucan Iv 200 Mg/100 Ml Ns IVPB 100 mls/hr DAILY AGUSTIN Administration Vasopressin 40 units/ Sodium 40 mls @ 0.6 mls/hr 04/21/17 09:30 04/22/17 00: 39 Chloride IV 0 units/min .Q24H PRN 0 mls/hr TITRATE PER PROTOCOL Titration Protocol 0.01 UNITS/MIN Dexmedetomidine HCl 400 mcg/ 100 mls @ 3.4 mls/hr 04/21/17 16:30 04/26/17 09: 03 Sodium Chloride IV 0.83 mcg/kg/hr TITR PRN 14.2 mls/hr Agitation Administration Protocol 0.2 MCG/KG/HR Cefepime HCl 1 gm in 50 mls @ 100 mls/hr 04/21/17 19:30 04/25/17 18:53 Maxipime Iv 1 Gm Premix IVPB 100 mls/hr Q24H AGUSTIN Administration Vancomycin HCl 500 mg/ Sodium 100 mls @ 100 mls/hr 04/22/17 09:00 04/25/17 11 :39 Chloride IVPB 100 mls/hr MWF AGUSTIN Administration Metronidazole 500 mg in 100 mls @ 100 mls/hr 04/24/17 22:00 04/26/17 06:00 Flagyl IVPB 100 mls/hr Q8 AGUSTIN Administration Sodium Chloride 1,000 mls @ 100 mls/hr 04/25/17 11:30 04/26/17 11:33 Sodium Chloride 0.9% IV Not Given .Q10H AGUSTIN Levetiracetam 250 mg 04/23/17 18:00 04/26/17 09:09 Keppra PO 250 mg BID AGUSTIN Administration Lorazepam 0.5 mg 04/01/17 16:08 04/23/17 11:06 Ativan IVP 0.5 mg Q3H PRN Administration Anxiety Lorazepam 2 mg 04/20/17 18:18 04/26/17 06:07 Ativan IVP 2 mg Q4H PRN Administration Seizure activity Metoprolol Tartrate 12.5 mg 04/26/17 18:00 Lopressor PO BID AGUSTIN Morphine Sulfate 2 mg 04/25/17 16:07 Morphine IV Q6 PRN Pain, severe (8-10) Ondansetron HCl 4 mg 03/27/17 23:45 04/11/17 21:39 Zofran Inj IVP 4 mg Q6H PRN Administration Nausea/Vomiting Pantoprazole Sodium 20 mg 04/19/17 18:00 04/26/17 09:08 Protonix Inj IVP 20 mg BID AGUSTIN Administration Saccharomyces Boulardii 250 mg 04/08/17 18:00 04/26/17 09:09 Florastor PO 250 mg BID AGUSTIN Administration Thiamine HCl 100 mg 04/08/17 12:30 04/26/17 09:09 Vitamin B1 Tab PO 100 mg DAILY AGUSTIN Administration - Patient Studies Lab Studies: Microbiology Studies 04/24/17 13:00 Blood Culture - Preliminary Blood NO GROWTH AFTER 24 HOURS 04/24/17 12:45 Blood Culture - Preliminary Blood NO GROWTH AFTER 24 HOURS Lab Studies 04/26/17 04/26/17 04/26/17 Range/Units 11:13 06:49 06:48 WBC 15.2 H (4.8-10.8) K/uL RBC 2.74 L (3.80-5.20) Mil/uL Hgb 7.8 L (11.0-16.0) g/dL Hct 23.8 L (34.0-47.0) % MCV 87.0 (81.0-99.0) fL MCH 28.6 (27.0-31.0) pg MCHC 32.8 L (33.0-37.0) g/dL RDW 15.6 H (11.5-14.5) % Plt Count 386 (130-400) K/uL MPV 8.4 (7.2-11.7) fL Puncture Site pCO2 (35-45) mm/Hg pO2 (80-100) mm/Hg HCO3 (21-28) mmol/L ABG pH (7.35-7.45) ABG Total CO2 (22-28) mmol/L ABG O2 Saturation (95-98) % ABG Base Excess (-2.0-3.0) mmol/L ABG Hemoglobin (11.7-17.4) g/dL ABG Carboxyhemoglobin (0.5-1.5) % POC ABG HHb (Measured) (0.0-5.0) % ABG Methemoglobin (0.0-3.0) % Daniel Test A-a O2 Difference mm/Hg Respiratory Index Hgb O2 Saturation (95.0-98.0) % Vent Mode Mechanical Rate FiO2 % Tidal Volume PEEP Sodium 145 (132-148) mmol/L Potassium 4.1 (3.6-5.2) mmol/L Chloride 114 H (98-107) mmol/L Carbon Dioxide 19 L (22-30) mmol/L Anion Gap 16 (10-20) BUN 36 H (7-17) mg/dL Creatinine 2.7 H (0.7-1.2) mg/dL Est GFR ( Amer) 24 Est GFR (Non-Af Amer) 20 POC Glucose (mg/dL) 128 H (65-110) mg/dL Random Glucose 106 H (65-105) mg/dL Calcium 7.7 L (8.6-10.4) mg/dl Phosphorus 6.2 H (2.5-4.5) mg/dL Magnesium 1.9 (1.6-2.3) mg/dL Total Bilirubin 0.7 (0.2-1.3) mg/dL AST 32 (14-36) U/L ALT 32 (9-52) U/L Alkaline Phosphatase 159 H (38-126) U/L Total Protein 5.7 L (6.3-8.3) g/dL Albumin 2.7 L (3.5-5.0) g/dL Globulin 3.0 (2.2-3.9) gm/dL Albumin/Globulin Ratio 0.9 L (1.0-2.1) 04/26/17 04/26/17 04/26/17 Range/Units 05:56 05:27 00:16 WBC (4.8-10.8) K/uL RBC (3.80-5.20) Mil/uL Hgb (11.0-16.0) g/dL Hct (34.0-47.0) % MCV (81.0-99.0) fL MCH (27.0-31.0) pg MCHC (33.0-37.0) g/dL RDW (11.5-14.5) % Plt Count (130-400) K/uL MPV (7.2-11.7) fL Puncture Site Rr pCO2 36 (35-45) mm/Hg pO2 137 H (80-100) mm/Hg HCO3 23.7 (21-28) mmol/L ABG pH 7.41 (7.35-7.45) ABG Total CO2 23.9 (22-28) mmol/L ABG O2 Saturation 100.1 H (95-98) % ABG Base Excess -1.6 (-2.0-3.0) mmol/L ABG Hemoglobin 8.1 L (11.7-17.4) g/dL ABG Carboxyhemoglobin 1.9 H (0.5-1.5) % POC ABG HHb (Measured) -0.1 L (0.0-5.0) % ABG Methemoglobin 0.5 (0.0-3.0) % Daniel Test Pos A-a O2 Difference 103.0 mm/Hg Respiratory Index 0.8 Hgb O2 Saturation 97.7 (95.0-98.0) % Vent Mode Prvc Mechanical Rate 18 FiO2 40.0 % Tidal Volume 450 PEEP 5 Sodium (132-148) mmol/L Potassium (3.6-5.2) mmol/L Chloride (98-107) mmol/L Carbon Dioxide (22-30) mmol/L Anion Gap (10-20) BUN (7-17) mg/dL Creatinine (0.7-1.2) mg/dL Est GFR ( Amer) Est GFR (Non-Af Amer) POC Glucose (mg/dL) 111 H 102 (65-110) mg/dL Random Glucose (65-105) mg/dL Calcium (8.6-10.4) mg/dl Phosphorus (2.5-4.5) mg/dL Magnesium (1.6-2.3) mg/dL Total Bilirubin (0.2-1.3) mg/dL AST (14-36) U/L ALT (9-52) U/L Alkaline Phosphatase (38-126) U/L Total Protein (6.3-8.3) g/dL Albumin (3.5-5.0) g/dL Globulin (2.2-3.9) gm/dL Albumin/Globulin Ratio (1.0-2.1) 04/25/17 Range/Units 17:46 WBC (4.8-10.8) K/uL RBC (3.80-5.20) Mil/uL Hgb (11.0-16.0) g/dL Hct (34.0-47.0) % MCV (81.0-99.0) fL MCH (27.0-31.0) pg MCHC (33.0-37.0) g/dL RDW (11.5-14.5) % Plt Count (130-400) K/uL MPV (7.2-11.7) fL Puncture Site pCO2 (35-45) mm/Hg pO2 (80-100) mm/Hg HCO3 (21-28) mmol/L ABG pH (7.35-7.45) ABG Total CO2 (22-28) mmol/L ABG O2 Saturation (95-98) % ABG Base Excess (-2.0-3.0) mmol/L ABG Hemoglobin (11.7-17.4) g/dL ABG Carboxyhemoglobin (0.5-1.5) % POC ABG HHb (Measured) (0.0-5.0) % ABG Methemoglobin (0.0-3.0) % Daniel Test A-a O2 Difference mm/Hg Respiratory Index Hgb O2 Saturation (95.0-98.0) % Vent Mode Mechanical Rate FiO2 % Tidal Volume PEEP Sodium (132-148) mmol/L Potassium (3.6-5.2) mmol/L Chloride (98-107) mmol/L Carbon Dioxide (22-30) mmol/L Anion Gap (10-20) BUN (7-17) mg/dL Creatinine (0.7-1.2) mg/dL Est GFR ( Amer) Est GFR (Non-Af Amer) POC Glucose (mg/dL) 77 (65-110) mg/dL Random Glucose (65-105) mg/dL Calcium (8.6-10.4) mg/dl Phosphorus (2.5-4.5) mg/dL Magnesium (1.6-2.3) mg/dL Total Bilirubin (0.2-1.3) mg/dL AST (14-36) U/L ALT (9-52) U/L Alkaline Phosphatase (38-126) U/L Total Protein (6.3-8.3) g/dL Albumin (3.5-5.0) g/dL Globulin (2.2-3.9) gm/dL Albumin/Globulin Ratio (1.0-2.1) Laboratory Results - last 24 hr 04/25/17 04/26/17 04/26/17 17:46 00:16 05:27 WBC RBC Hgb Hct MCV MCH MCHC RDW Plt Count MPV Puncture Site Rr pCO2 36 pO2 137 H HCO3 23.7 ABG pH 7.41 ABG Total CO2 23.9 ABG O2 Saturation 100.1 H ABG Base Excess -1.6 ABG Hemoglobin 8.1 L ABG Carboxyhemoglobin 1.9 H POC ABG HHb (Measured) -0.1 L ABG Methemoglobin 0.5 Daniel Test Pos A-a O2 Difference 103.0 Respiratory Index 0.8 Hgb O2 Saturation 97.7 Vent Mode Prvc Mechanical Rate 18 FiO2 40.0 Tidal Volume 450 PEEP 5 Sodium Potassium Chloride Carbon Dioxide Anion Gap BUN Creatinine Est GFR ( Amer) Est GFR (Non-Af Amer) POC Glucose (mg/dL) 77 102 Random Glucose Calcium Phosphorus Magnesium Total Bilirubin AST ALT Alkaline Phosphatase Total Protein Albumin Globulin Albumin/Globulin Ratio 04/26/17 04/26/17 04/26/17 05:56 06:48 06:49 WBC 15.2 H RBC 2.74 L Hgb 7.8 L Hct 23.8 L MCV 87.0 MCH 28.6 MCHC 32.8 L RDW 15.6 H Plt Count 386 MPV 8.4 Puncture Site pCO2 pO2 HCO3 ABG pH ABG Total CO2 ABG O2 Saturation ABG Base Excess ABG Hemoglobin ABG Carboxyhemoglobin POC ABG HHb (Measured) ABG Methemoglobin Daniel Test A-a O2 Difference Respiratory Index Hgb O2 Saturation Vent Mode Mechanical Rate FiO2 Tidal Volume PEEP Sodium 145 Potassium 4.1 Chloride 114 H Carbon Dioxide 19 L Anion Gap 16 BUN 36 H Creatinine 2.7 H Est GFR ( Amer) 24 Est GFR (Non-Af Amer) 20 POC Glucose (mg/dL) 111 H Random Glucose 106 H Calcium 7.7 L Phosphorus 6.2 H Magnesium 1.9 Total Bilirubin 0.7 AST 32 ALT 32 Alkaline Phosphatase 159 H Total Protein 5.7 L Albumin 2.7 L Globulin 3.0 Albumin/Globulin Ratio 0.9 L 04/26/17 11:13 WBC RBC Hgb Hct MCV MCH MCHC RDW Plt Count MPV Puncture Site pCO2 pO2 HCO3 ABG pH ABG Total CO2 ABG O2 Saturation ABG Base Excess ABG Hemoglobin ABG Carboxyhemoglobin POC ABG HHb (Measured) ABG Methemoglobin Daniel Test A-a O2 Difference Respiratory Index Hgb O2 Saturation Vent Mode Mechanical Rate FiO2 Tidal Volume PEEP Sodium Potassium Chloride Carbon Dioxide Anion Gap BUN Creatinine Est GFR ( Amer) Est GFR (Non-Af Amer) POC Glucose (mg/dL) 128 H Random Glucose Calcium Phosphorus Magnesium Total Bilirubin AST ALT Alkaline Phosphatase Total Protein Albumin Globulin Albumin/Globulin Ratio Fingerstick Blood Sugar Results: 111 Assessment/Plan - Assessment and Plan (Free Text) Assessment: Assessment: 36F w/gastrioparesis and GI bleed; s/p boby en Y bypass, J-tube POD 8 Plan: Neuro: * Neuro (Aureliano) * Hx Schizophrenia, mental retardation * Seizure activity 04/20 * Haloperidol 1 IV BID PRN * Keppra 250 PO BID * Ativan 0.5 IV Q3 PRN * Ativan 2 IV Q4 PRN Seizure * Precedex 400 @ 3.4 * Thiamine 100mg PO QD * Vit C 500mg PO QD Psych: * Psych (Ozden) * Quetiapine, Escitalopram - held Cardio: * Cards (Dex) * Tachy Pulm: * Intubated, trach, will try to wean today * R. Lung pneumonia * Maxipime1 IV QD * Vanco 500 IV MWF * Flagyl 500 IV Q8 * Albuterol/Ipratropium 3cc INH RQ6H Endo: * 03/28 Hemoglobin A1c 5.3 GI: * S/P R-n-Y POD 8 * J tube Glucerna 1.5 @ 30 * Dilaudid 1 IV Q3 PRN * Hal Drain * Zofran IV Q6 PRN Renal: * Permacath today * HD on hold * making urine : * continues to make urine * Urine Culture - yeast * Diflucan 200 IV QD Heme: * Hx GI bleed * Hgb stable * S/p RnY MSK: * Prior to hospitalization could ambulate * PT/OT ID: * WBC downtrending * Maxipime1 IV QD * Diflucan 200 IV QD * Vanco 500 IV MWF * Flagyl 500 IV Q8 * F/U Blood cultures * PICC Line Prophylaxis: * Protonix Q12H * Zofran 4mg IV Q6H * Fluids: NS @ 100 * Tube Feeds <Jose Hernandez S - Last Filed: 04/26/17 17:33> CCU Objective - Vital Signs / Intake & Output Vital Signs (Last 4 hours): Vital Signs Temp Pulse Resp BP Pulse Ox 04/26/17 16:45 111 H 18 115/78 97 04/26/17 16:00 101.3 F H 123 H 17 120/78 95 04/26/17 15:45 114 H 18 120/78 97 04/26/17 15:00 123 H 18 96 04/26/17 14:45 123 H 18 117/79 96 04/26/17 14:00 124 H 19 93 L 04/26/17 13:45 111 H 18 113/78 92 L Intake and Output (Last 8hrs): Intake & Output 04/26/17 04/26/17 04/26/17 06:59 14:59 22:59 Intake Total 1303.6 1553.6 392.6 Output Total 360 655 160 Balance 943.6 898.6 232.6 Weight 147 lb 9.6 oz Intake: IV 100 100 100 Intake, IV Amount 913.6 1113.6 252.6 Left PICC 113.6 113.6 42.6 Left PICC #2 900 210 Right Antecubital 800 100 Tube Feeding 240 210 10 Other 50 130 30 Output: Urine 360 655 160 Urethral (Tovar) 360 655 160 - Medications Active Medications: Active Medications Generic Name Dose Route Start Last Admin Trade Name Freq PRN Reason Stop Dose Admin Acetaminophen 650 mg 04/20/17 10:17 04/25/17 19:[address] 650 mg Q4 PRN Administration Fever >100.4 F Albuterol/Ipratropium 3 ml 04/18/17 14:00 04/26/17 13:28 Duoneb 3 Mg/0.5 Mg (3 Ml) Ud INH 3 ml RQ6 AGUSTIN Administration Ascorbic Acid 500 mg 04/08/17 12:30 04/26/17 09:37 Vitamin C 500 Mg Tab PO 500 mg DAILY AGUSTIN Administration Calcium Acetate 667 mg 04/23/17 17:00 04/26/17 17:24 Phoslo PO 667 mg BIDCC AGUSTIN Administration Haloperidol Lactate 1 mg 03/29/17 18:47 04/17/17 00:00 Haldol IVP 1 mg BID PRN Administration Agitation Hydromorphone HCl 1 mg 04/17/17 07:16 04/25/17 16:49 Dilaudid IVP 1 mg Q3 PRN Administration Pain, severe (8-10) Fluconazole 100 mls @ 100 mls/hr 04/21/17 10:00 04/26/17 09:38 Diflucan Iv 200 Mg/100 Ml Ns IVPB 100 mls/hr DAILY AGUSTIN Administration Vasopressin 40 units/ Sodium 40 mls @ 0.6 mls/hr 04/21/17 09:30 04/22/17 00: 39 Chloride IV 0 units/min .Q24H PRN 0 mls/hr TITRATE PER PROTOCOL Titration Protocol 0.01 UNITS/MIN Dexmedetomidine HCl 400 mcg/ 100 mls @ 3.4 mls/hr 04/21/17 16:30 04/26/17 15: 43 Sodium Chloride IV 0.83 mcg/kg/hr TITR PRN 14.2 mls/hr Agitation Administration Protocol 0.2 MCG/KG/HR Cefepime HCl 1 gm in 50 mls @ 100 mls/hr 04/21/17 19:30 04/25/17 18:53 Maxipime Iv 1 Gm Premix IVPB 100 mls/hr Q24H AGUSTIN Administration Vancomycin HCl 500 mg/ Sodium 100 mls @ 100 mls/hr 04/22/17 09:00 04/25/17 11 :39 Chloride IVPB 100 mls/hr MWF AGUSTIN Administration Metronidazole 500 mg in 100 mls @ 100 mls/hr 04/24/17 22:00 04/26/17 13:10 Flagyl IVPB 100 mls/hr Q8 AGUSTIN Administration Sodium Chloride 1,000 mls @ 100 mls/hr 04/25/17 11:30 04/26/17 15:43 Sodium Chloride 0.9% IV 100 mls/hr .Q10H AGUSTIN Administration Levetiracetam 250 mg 04/23/17 18:00 04/26/17 17:24 Keppra PO 250 mg BID AGUSTIN Administration Lorazepam 0.5 mg 04/01/17 16:08 04/23/17 11:06 Ativan IVP 0.5 mg Q3H PRN Administration Anxiety Lorazepam 2 mg 04/20/17 18:18 04/26/17 06:07 Ativan IVP 2 mg Q4H PRN Administration Seizure activity Metoprolol Tartrate 12.5 mg 04/26/17 18:00 04/26/17 17:24 Lopressor PO 12.5 mg BID AGUSTIN Administration Morphine Sulfate 2 mg 04/25/17 16:07 Morphine IV Q6 PRN Pain, severe (8-10) Ondansetron HCl 4 mg 03/27/17 23:45 04/11/17 21:39 Zofran Inj IVP 4 mg Q6H PRN Administration Nausea/Vomiting Pantoprazole Sodium 20 mg 04/19/17 18:00 04/26/17 17:24 Protonix Inj IVP 20 mg BID AGUSTIN Administration Saccharomyces Boulardii 250 mg 04/08/17 18:00 04/26/17 17:24 Florastor PO 250 mg BID AGUSTIN Administration Thiamine HCl 100 mg 04/08/17 12:30 04/26/17 09:09 Vitamin B1 Tab PO 100 mg DAILY AGUSTIN Administration - Patient Studies Lab Studies: Microbiology Studies 04/24/17 13:00 Blood Culture - Preliminary Blood NO GROWTH AFTER 48 HOURS 04/24/17 12:45 Blood Culture - Preliminary Blood NO GROWTH AFTER 48 HOURS Lab Studies 04/26/17 04/26/17 04/26/17 Range/Units 11:13 06:49 06:48 WBC 15.2 H (4.8-10.8) K/uL RBC 2.74 L (3.80-5.20) Mil/uL Hgb 7.8 L (11.0-16.0) g/dL Hct 23.8 L (34.0-47.0) % MCV 87.0 (81.0-99.0) fL MCH 28.6 (27.0-31.0) pg MCHC 32.8 L (33.0-37.0) g/dL RDW 15.6 H (11.5-14.5) % Plt Count 386 (130-400) K/uL MPV 8.4 (7.2-11.7) fL Puncture Site pCO2 (35-45) mm/Hg pO2 (80-100) mm/Hg HCO3 (21-28) mmol/L ABG pH (7.35-7.45) ABG Total CO2 (22-28) mmol/L ABG O2 Saturation (95-98) % ABG Base Excess (-2.0-3.0) mmol/L ABG Hemoglobin (11.7-17.4) g/dL ABG Carboxyhemoglobin (0.5-1.5) % POC ABG HHb (Measured) (0.0-5.0) % ABG Methemoglobin (0.0-3.0) % Daniel Test A-a O2 Difference mm/Hg Respiratory Index Hgb O2 Saturation (95.0-98.0) % Vent Mode Mechanical Rate FiO2 % Tidal Volume PEEP Sodium 145 (132-148) mmol/L Potassium 4.1 (3.6-5.2) mmol/L Chloride 114 H (98-107) mmol/L Carbon Dioxide 19 L (22-30) mmol/L Anion Gap 16 (10-20) BUN 36 H (7-17) mg/dL Creatinine 2.7 H (0.7-1.2) mg/dL Est GFR ( Amer) 24 Est GFR (Non-Af Amer) 20 POC Glucose (mg/dL) 128 H (65-110) mg/dL Random Glucose 106 H (65-105) mg/dL Calcium 7.7 L (8.6-10.4) mg/dl Phosphorus 6.2 H (2.5-4.5) mg/dL Magnesium 1.9 (1.6-2.3) mg/dL Total Bilirubin 0.7 (0.2-1.3) mg/dL AST 32 (14-36) U/L ALT 32 (9-52) U/L Alkaline Phosphatase 159 H (38-126) U/L Total Protein 5.7 L (6.3-8.3) g/dL Albumin 2.7 L (3.5-5.0) g/dL Globulin 3.0 (2.2-3.9) gm/dL Albumin/Globulin Ratio 0.9 L (1.0-2.1) 04/26/17 04/26/17 04/26/17 Range/Units 05:56 05:27 00:16 WBC (4.8-10.8) K/uL RBC (3.80-5.20) Mil/uL Hgb (11.0-16.0) g/dL Hct (34.0-47.0) % MCV (81.0-99.0) fL MCH (27.0-31.0) pg MCHC (33.0-37.0) g/dL RDW (11.5-14.5) % Plt Count (130-400) K/uL MPV (7.2-11.7) fL Puncture Site Rr pCO2 36 (35-45) mm/Hg pO2 137 H (80-100) mm/Hg HCO3 23.7 (21-28) mmol/L ABG pH 7.41 (7.35-7.45) ABG Total CO2 23.9 (22-28) mmol/L ABG O2 Saturation 100.1 H (95-98) % ABG Base Excess -1.6 (-2.0-3.0) mmol/L ABG Hemoglobin 8.1 L (11.7-17.4) g/dL ABG Carboxyhemoglobin 1.9 H (0.5-1.5) % POC ABG HHb (Measured) -0.1 L (0.0-5.0) % ABG Methemoglobin 0.5 (0.0-3.0) % Daniel Test Pos A-a O2 Difference 103.0 mm/Hg Respiratory Index 0.8 Hgb O2 Saturation 97.7 (95.0-98.0) % Vent Mode Prvc Mechanical Rate 18 FiO2 40.0 % Tidal Volume 450 PEEP 5 Sodium (132-148) mmol/L Potassium (3.6-5.2) mmol/L Chloride (98-107) mmol/L Carbon Dioxide (22-30) mmol/L Anion Gap (10-20) BUN (7-17) mg/dL Creatinine (0.7-1.2) mg/dL Est GFR ( Amer) Est GFR (Non-Af Amer) POC Glucose (mg/dL) 111 H 102 (65-110) mg/dL Random Glucose (65-105) mg/dL Calcium (8.6-10.4) mg/dl Phosphorus (2.5-4.5) mg/dL Magnesium (1.6-2.3) mg/dL Total Bilirubin (0.2-1.3) mg/dL AST (14-36) U/L ALT (9-52) U/L Alkaline Phosphatase (38-126) U/L Total Protein (6.3-8.3) g/dL Albumin (3.5-5.0) g/dL Globulin (2.2-3.9) gm/dL Albumin/Globulin Ratio (1.0-2.1) 04/25/17 Range/Units 17:46 WBC (4.8-10.8) K/uL RBC (3.80-5.20) Mil/uL Hgb (11.0-16.0) g/dL Hct (34.0-47.0) % MCV (81.0-99.0) fL MCH (27.0-31.0) pg MCHC (33.0-37.0) g/dL RDW (11.5-14.5) % Plt Count (130-400) K/uL MPV (7.2-11.7) fL Puncture Site pCO2 (35-45) mm/Hg pO2 (80-100) mm/Hg HCO3 (21-28) mmol/L ABG pH (7.35-7.45) ABG Total CO2 (22-28) mmol/L ABG O2 Saturation (95-98) % ABG Base Excess (-2.0-3.0) mmol/L ABG Hemoglobin (11.7-17.4) g/dL ABG Carboxyhemoglobin (0.5-1.5) % POC ABG HHb (Measured) (0.0-5.0) % ABG Methemoglobin (0.0-3.0) % Daniel Test A-a O2 Difference mm/Hg Respiratory Index Hgb O2 Saturation (95.0-98.0) % Vent Mode Mechanical Rate FiO2 % Tidal Volume PEEP Sodium (132-148) mmol/L Potassium (3.6-5.2) mmol/L Chloride (98-107) mmol/L Carbon Dioxide (22-30) mmol/L Anion Gap (10-20) BUN (7-17) mg/dL Creatinine (0.7-1.2) mg/dL Est GFR ( Amer) Est GFR (Non-Af Amer) POC Glucose (mg/dL) 77 (65-110) mg/dL Random Glucose (65-105) mg/dL Calcium (8.6-10.4) mg/dl Phosphorus (2.5-4.5) mg/dL Magnesium (1.6-2.3) mg/dL Total Bilirubin (0.2-1.3) mg/dL AST (14-36) U/L ALT (9-52) U/L Alkaline Phosphatase (38-126) U/L Total Protein (6.3-8.3) g/dL Albumin (3.5-5.0) g/dL Globulin (2.2-3.9) gm/dL Albumin/Globulin Ratio (1.0-2.1) Laboratory Results - last 24 hr 04/25/17 04/26/17 04/26/17 17:46 00:16 05:27 WBC RBC Hgb Hct MCV MCH MCHC RDW Plt Count MPV Puncture Site Rr pCO2 36 pO2 137 H HCO3 23.7 ABG pH 7.41 ABG Total CO2 23.9 ABG O2 Saturation 100.1 H ABG Base Excess -1.6 ABG Hemoglobin 8.1 L ABG Carboxyhemoglobin 1.9 H POC ABG HHb (Measured) -0.1 L ABG Methemoglobin 0.5 Daniel Test Pos A-a O2 Difference 103.0 Respiratory Index 0.8 Hgb O2 Saturation 97.7 Vent Mode Prvc Mechanical Rate 18 FiO2 40.0 Tidal Volume 450 PEEP 5 Sodium Potassium Chloride Carbon Dioxide Anion Gap BUN Creatinine Est GFR ( Amer) Est GFR (Non-Af Amer) POC Glucose (mg/dL) 77 102 Random Glucose Calcium Phosphorus Magnesium Total Bilirubin AST ALT Alkaline Phosphatase Total Protein Albumin Globulin Albumin/Globulin Ratio 04/26/17 04/26/17 04/26/17 05:56 06:48 06:49 WBC 15.2 H RBC 2.74 L Hgb 7.8 L Hct 23.8 L MCV 87.0 MCH 28.6 MCHC 32.8 L RDW 15.6 H Plt Count 386 MPV 8.4 Puncture Site pCO2 pO2 HCO3 ABG pH ABG Total CO2 ABG O2 Saturation ABG Base Excess ABG Hemoglobin ABG Carboxyhemoglobin POC ABG HHb (Measured) ABG Methemoglobin Daniel Test A-a O2 Difference Respiratory Index Hgb O2 Saturation Vent Mode Mechanical Rate FiO2 Tidal Volume PEEP Sodium 145 Potassium 4.1 Chloride 114 H Carbon Dioxide 19 L Anion Gap 16 BUN 36 H Creatinine 2.7 H Est GFR ( Amer) 24 Est GFR (Non-Af Amer) 20 POC Glucose (mg/dL) 111 H Random Glucose 106 H Calcium 7.7 L Phosphorus 6.2 H Magnesium 1.9 Total Bilirubin 0.7 AST 32 ALT 32 Alkaline Phosphatase 159 H Total Protein 5.7 L Albumin 2.7 L Globulin 3.0 Albumin/Globulin Ratio 0.9 L 04/26/17 11:13 WBC RBC Hgb Hct MCV MCH MCHC RDW Plt Count MPV Puncture Site pCO2 pO2 HCO3 ABG pH ABG Total CO2 ABG O2 Saturation ABG Base Excess ABG Hemoglobin ABG Carboxyhemoglobin POC ABG HHb (Measured) ABG Methemoglobin Daniel Test A-a O2 Difference Respiratory Index Hgb O2 Saturation Vent Mode Mechanical Rate FiO2 Tidal Volume PEEP Sodium Potassium Chloride Carbon Dioxide Anion Gap BUN Creatinine Est GFR ( Amer) Est GFR (Non-Af Amer) POC Glucose (mg/dL) 128 H Random Glucose Calcium Phosphorus Magnesium Total Bilirubin AST ALT Alkaline Phosphatase Total Protein Albumin Globulin Albumin/Globulin Ratio Assessment/Plan (1) SMAS (superior mesenteric artery syndrome) Current Visit: Yes Status: Acute Comment: (2) Acute renal failure Current Visit: Yes Status: Acute (3) Mental retardation Current Visit: No Status: Acute Attending/Attestation - Attestation I have personally seen and examined this patient.: Yes I have fully participated in the care of the patient.: Yes I have reviewed all pertinent clinical information: Yes Notes (Text): 04/26/17 17:29 patient seen and examined in the intensive care unit. Case discussed with staff in the morning. Status post tracheostomy Tolerating feeding Dialysis on hold, good urine output For repeat CAT scan of the abdomen On antibiotics as per infectious disease
--- NOTE | 2017-04-26 11:56 | CP.PCM.PN ---
Subjective - Date & Time of Evaluation Date of Evaluation: 04/26/17 Time of Evaluation: 09:00 - Subjective Subjective: s/p trach afeb nad Objective - Vital Signs/Intake and Output Vital Signs (last 24 hours): Temp Pulse Resp BP Pulse Ox 99.2 F 124 H 18 106/73 100 04/26/17 08:00 04/26/17 11:00 04/26/17 11:00 04/26/17 10:45 04/26/17 11:00 Intake and Output: 04/26/17 04/26/17 06:59 18:59 Intake Total 1880.4 1051.0 Output Total 560 335 Balance 1320.4 716.0 - Medications Medications: Current Medications Acetaminophen (Tylenol 650 Mg Supp) 650 mg ND Q4 PRN PRN Reason: Fever >100.4 F Last Admin: 04/25/17 19:45 Dose: 650 mg Albuterol/Ipratropium (Duoneb 3 Mg/0.5 Mg (3 Ml) Ud) 3 ml INH RQ6 [facility] Last Admin: 04/26/17 07:40 Dose: 3 ml Ascorbic Acid (Vitamin C 500 Mg Tab) 500 mg PO DAILY [facility] Last Admin: 04/26/17 09:37 Dose: 500 mg Calcium Acetate (Phoslo) 667 mg PO BIDCC [facility] Last Admin: 04/26/17 07:37 Dose: 667 mg Haloperidol Lactate (Haldol) 1 mg IVP BID PRN PRN Reason: Agitation Last Admin: 04/17/17 00:00 Dose: 1 mg Hydromorphone HCl (Dilaudid) 1 mg IVP Q3 PRN PRN Reason: Pain, severe (8-10) Last Admin: 04/25/17 16:49 Dose: 1 mg Fluconazole (Diflucan Iv 200 Mg/100 Ml Ns) 100 mls @ 100 mls/hr IVPB DAILY [facility] Last Admin: 04/26/17 09:38 Dose: 100 mls/hr Vasopressin 40 units/ Sodium (Chloride) 40 mls @ 0.6 mls/hr IV .Q24H PRN; Protocol; 0.01 UNITS/MIN PRN Reason: TITRATE PER PROTOCOL Last Titration: 04/22/17 00:39 Dose: 0 units/min, 0 mls/hr Dexmedetomidine HCl 400 mcg/ (Sodium Chloride) 100 mls @ 3.4 mls/hr IV TITR PRN ; Protocol; 0.2 MCG/KG/HR PRN Reason: Agitation Last Admin: 04/26/17 09:03 Dose: 0.83 mcg/kg/hr, 14.2 mls/hr Cefepime HCl (Maxipime Iv 1 Gm Premix) 1 gm in 50 mls @ 100 mls/hr IVPB Q24H [facility] Last Admin: 04/25/17 18:53 Dose: 100 mls/hr Vancomycin HCl 500 mg/ Sodium (Chloride) 100 mls @ 100 mls/hr IVPB MWF [facility] Last Admin: 04/25/17 11:39 Dose: 100 mls/hr Metronidazole (Flagyl) 500 mg in 100 mls @ 100 mls/hr IVPB Q8 [facility] Last Admin: 04/26/17 06:00 Dose: 100 mls/hr Sodium Chloride (Sodium Chloride 0.9%) 1,000 mls @ 100 mls/hr IV .Q10H [facility] Last Admin: 04/26/17 11:33 Dose: Not Given Levetiracetam (Keppra) 250 mg PO BID [facility] Last Admin: 04/26/17 09:09 Dose: 250 mg Lorazepam (Ativan) 0.5 mg IVP Q3H PRN PRN Reason: Anxiety Last Admin: 04/23/17 11:06 Dose: 0.5 mg Lorazepam (Ativan) 2 mg IVP Q4H PRN PRN Reason: Seizure activity Last Admin: 04/26/17 06:07 Dose: 2 mg Metoprolol Tartrate (Lopressor) 12.5 mg PO BID [facility] Morphine Sulfate (Morphine) 2 mg IV Q6 PRN PRN Reason: Pain, severe (8-10) Ondansetron HCl (Zofran Inj) 4 mg IVP Q6H PRN PRN Reason: Nausea/Vomiting Last Admin: 04/11/17 21:39 Dose: 4 mg Pantoprazole Sodium (Protonix Inj) 20 mg IVP BID [facility] Last Admin: 04/26/17 09:08 Dose: 20 mg Saccharomyces Boulardii (Florastor) 250 mg PO BID [facility] Last Admin: 04/26/17 09:09 Dose: 250 mg Thiamine HCl (Vitamin B1 Tab) 100 mg PO DAILY [facility] Last Admin: 04/26/17 09:09 Dose: 100 mg - Labs Labs: 04/26/17 06:48 04/26/17 06:49 PT 14.0 SECONDS (9.7-12.2) H 04/25/17 06:25 INR 1.2 04/25/17 06:25 APTT 32 SECONDS (21-34) 04/25/17 06:25 - Constitutional Appears: Non-toxic, Chronically Ill - Head Exam Head Exam: NORMOCEPHALIC - Eye Exam Eye Exam: PERRL - ENT Exam ENT Exam: Mucous Membranes Dry - Neck Exam Neck Exam: absent: Lymphadenopathy - Respiratory Exam Respiratory Exam: Decreased Breath Sounds - Cardiovascular Exam Cardiovascular Exam: REGULAR RHYTHM - GI/Abdominal Exam GI & Abdominal Exam: Distended Assessment and Plan (1) Acute pancreatitis Status: Acute (2) Leucocytosis Status: Acute
--- NOTE | 2017-04-26 12:15 | CP.PCM.PN ---
Subjective - Date & Time of Evaluation Date of Evaluation: 04/26/17 Time of Evaluation: 12:12 - Subjective Subjective: seen and examined off hd since 04/23 good uop g tube feeds ongoing unable to obtain ros, pt non verbal Objective - Vital Signs/Intake and Output Vital Signs (last 24 hours): Temp Pulse Resp BP Pulse Ox 99.2 F 124 H 18 106/73 100 04/26/17 08:00 04/26/17 11:00 04/26/17 11:00 04/26/17 10:45 04/26/17 11:00 Intake and Output: 04/26/17 04/26/17 06:59 18:59 Intake Total 1880.4 1051.0 Output Total 560 335 Balance 1320.4 716.0 - Medications Medications: Current Medications Acetaminophen (Tylenol 650 Mg Supp) 650 mg DC Q4 PRN PRN Reason: Fever >100.4 F Last Admin: 04/25/17 19:45 Dose: 650 mg Albuterol/Ipratropium (Duoneb 3 Mg/0.5 Mg (3 Ml) Ud) 3 ml INH RQ6 [facility] Last Admin: 04/26/17 07:40 Dose: 3 ml Ascorbic Acid (Vitamin C 500 Mg Tab) 500 mg PO DAILY [facility] Last Admin: 04/26/17 09:37 Dose: 500 mg Calcium Acetate (Phoslo) 667 mg PO BIDCC [facility] Last Admin: 04/26/17 07:37 Dose: 667 mg Haloperidol Lactate (Haldol) 1 mg IVP BID PRN PRN Reason: Agitation Last Admin: 04/17/17 00:00 Dose: 1 mg Hydromorphone HCl (Dilaudid) 1 mg IVP Q3 PRN PRN Reason: Pain, severe (8-10) Last Admin: 04/25/17 16:49 Dose: 1 mg Fluconazole (Diflucan Iv 200 Mg/100 Ml Ns) 100 mls @ 100 mls/hr IVPB DAILY [facility] Last Admin: 04/26/17 09:38 Dose: 100 mls/hr Vasopressin 40 units/ Sodium (Chloride) 40 mls @ 0.6 mls/hr IV .Q24H PRN; Protocol; 0.01 UNITS/MIN PRN Reason: TITRATE PER PROTOCOL Last Titration: 04/22/17 00:39 Dose: 0 units/min, 0 mls/hr Dexmedetomidine HCl 400 mcg/ (Sodium Chloride) 100 mls @ 3.4 mls/hr IV TITR PRN ; Protocol; 0.2 MCG/KG/HR PRN Reason: Agitation Last Admin: 04/26/17 09:03 Dose: 0.83 mcg/kg/hr, 14.2 mls/hr Cefepime HCl (Maxipime Iv 1 Gm Premix) 1 gm in 50 mls @ 100 mls/hr IVPB Q24H [facility] Last Admin: 04/25/17 18:53 Dose: 100 mls/hr Vancomycin HCl 500 mg/ Sodium (Chloride) 100 mls @ 100 mls/hr IVPB MWF [facility] Last Admin: 04/25/17 11:39 Dose: 100 mls/hr Metronidazole (Flagyl) 500 mg in 100 mls @ 100 mls/hr IVPB Q8 [facility] Last Admin: 04/26/17 06:00 Dose: 100 mls/hr Sodium Chloride (Sodium Chloride 0.9%) 1,000 mls @ 100 mls/hr IV .Q10H [facility] Last Admin: 04/26/17 11:33 Dose: Not Given Levetiracetam (Keppra) 250 mg PO BID [facility] Last Admin: 04/26/17 09:09 Dose: 250 mg Lorazepam (Ativan) 0.5 mg IVP Q3H PRN PRN Reason: Anxiety Last Admin: 04/23/17 11:06 Dose: 0.5 mg Lorazepam (Ativan) 2 mg IVP Q4H PRN PRN Reason: Seizure activity Last Admin: 04/26/17 06:07 Dose: 2 mg Metoprolol Tartrate (Lopressor) 12.5 mg PO BID [facility] Morphine Sulfate (Morphine) 2 mg IV Q6 PRN PRN Reason: Pain, severe (8-10) Ondansetron HCl (Zofran Inj) 4 mg IVP Q6H PRN PRN Reason: Nausea/Vomiting Last Admin: 04/11/17 21:39 Dose: 4 mg Pantoprazole Sodium (Protonix Inj) 20 mg IVP BID [facility] Last Admin: 04/26/17 09:08 Dose: 20 mg Saccharomyces Boulardii (Florastor) 250 mg PO BID [facility] Last Admin: 04/26/17 09:09 Dose: 250 mg Thiamine HCl (Vitamin B1 Tab) 100 mg PO DAILY [facility] Last Admin: 04/26/17 09:09 Dose: 100 mg - Labs Labs: 04/26/17 06:48 04/26/17 06:49 PT 14.0 SECONDS (9.7-12.2) H 04/25/17 06:25 INR 1.2 04/25/17 06:25 APTT 32 SECONDS (21-34) 04/25/17 06:25 - Constitutional Appears: Non-toxic, No Acute Distress, Chronically Ill - Head Exam Head Exam: NORMAL INSPECTION - Eye Exam Eye Exam: Normal appearance Pupil Exam: PERRL - ENT Exam ENT Exam: Normal Exam (mm dry ) - Neck Exam Neck Exam: Normal Inspection (tracheostomy) - Respiratory Exam Respiratory Exam: Decreased Breath Sounds, NORMAL BREATHING PATTERN - Cardiovascular Exam Cardiovascular Exam: Tachycardia, REGULAR RHYTHM - GI/Abdominal Exam GI & Abdominal Exam: Distended (g tube), Soft - Exam Exam: NORMAL INSPECTION (claros w/ good uop) - Extremities Exam Extremities Exam: Normal Inspection - Neurological Exam Neurological Exam: Awake Assessment and Plan (1) JIMBO (acute kidney injury) Status: Acute (2) Acute pancreatitis Status: Acute (3) SBO (small bowel obstruction) Status: Acute (4) Mental retardation Status: Acute (5) Schizophrenia Status: Acute - Assessment and Plan (Free Text) Assessment: hold off hd lytes acceptable avoid nephrotoxic meds
[2017-04-26] MEDS: Cefepime IV 1 gm in Dextrose 1 GM/50 ML BAG IVPB SCH (18:29)
[2017-04-27] MEDS: Albuterol-Ipratrop 3 mg / 0.5 (3 ml) UD INH SCH ×3 (02:30→13:04)
[2017-04-27] MEDS: Sodium Chloride 0.9% 1,000 ML IV SCH ×2 (03:45→13:30)
[2017-04-27] MEDS: metroNIDAZOLE IV 500 mg/100 ml 500 MG/100 ML BAG IVPB SCH ×2 (05:00→14:07)
[2017-04-27 05:26] LABS: ABG ALLEN TEST POS; ARTERIAL BLOOD GAS HCO3 22.9 mmol/L (21-28); ARTERIAL BLOOD GAS O2 SAT 99.8 % (95-98); ARTERIAL BLOOD GAS PCO2 31 mm/Hg (35-45); ARTERIAL BLOOD GAS PH 7.44 (7.35-7.45); ARTERIAL BLOOD GAS PO2 173 mm/Hg (80-100); ARTERIAL BLOOD GAS TCO2 22.1 mmol/L (22-28)
[2017-04-27 06:44] LABS: BASO # 0.1 K/uL (0.0-0.2); BASO % 0.5 % (0.0-2.0); EOS % 0.2 % (0.0-4.0); HEMOGLOBIN 7.7 g/dL (11.0-16.0); LYMPH # 1.9 K/uL (1.0-4.3); LYMPH % 9.8 % (20.0-40.0); MEAN CELL VOLUME 87.9 fL (81.0-99.0); MEAN CORPUSCULAR HEMOGLOBIN 28.5 pg (27.0-31.0); MEAN CORPUSCULAR HGB CONC 32.5 g/dL (33.0-37.0); MEAN PLATELET VOLUME 8.8 fL (7.2-11.7); MONO # 1.9 K/uL (0.0-0.8); MONO % 9.7 % (0.0-10.0); NEUT # 15.4 K/uL (1.8-7.0); NEUT % 79.8 % (50.0-75.0); PLATELET COUNT 418 K/uL (130-400); RBC 2.71 Mil/uL (3.80-5.20); RED CELL DISTRIBUTION WIDTH 15.6 % (11.5-14.5); WHITE BLOOD COUNT 19.3 K/uL (4.8-10.8)
[2017-04-27 07:16] LABS: ALB/GLOB RATIO 0.9 (1.0-2.1); ALBUMIN 2.8 g/dL (3.5-5.0); CALCIUM 8.3 mg/dl (8.6-10.4)
[2017-04-27] MEDS: Dexmedetomidine Hydrochloride 400 MCG in Sodium Chloride 0.9% 96 ML IV PRN ×3 (07:25→23:48)
[2017-04-27] MEDS: Fluconazole IV 200mg/100 ml NS 100 ML IVPB SCH (09:52)
[2017-04-27] MEDS: Saccharomyces Boulardi 250 mg Cap PO SCH ×2 (09:52→17:38)
[2017-04-27 09:56] LABS: ANISOCYTOSIS SLIGHT; LYMPHOCYTE 11 % (20-40); MONOCYTE 5 % (0-10); NEUTROPHIL 84 % (50-75); PLATELET ESTIMATE SLIGHTLY INCREASED (NORMAL); TOTAL CELLS COUNTED 100
[2017-04-27 10:00] LABS: HYPOCHROMIC SLIGHT
--- NOTE | 2017-04-27 10:41 | CP.CCUPN ---
<Bipin Chopra - Last Filed: 04/27/17 16:07> CCU Subjective - Physician Review Subjective (Free Text): 04/26/17 16:17 tube feeds were stopped due to one episode of vomiting rechecked no residuals, restarted tube feeds at 10 to increase by 5 to 20 04/27/17 10:38 Patient continues to vomit Tube feeds stopped Surgery notified Will obtain CT abd/pelvis IV/PO contrast CCU Objective - Vital Signs / Intake & Output Vital Signs (Last 4 hours): Vital Signs Temp Pulse Resp BP Pulse Ox 04/27/17 09:03 108 H 18 108/67 100 04/27/17 09:00 108 H 6 L 100 04/27/17 08:45 112 H 17 104/65 98 04/27/17 08:00 111 H 16 100 04/27/17 07:45 99.1 F 108 H 17 115/71 100 04/27/17 07:00 93 H 18 99 04/27/17 06:45 94 H 18 110/72 99 Intake and Output (Last 8hrs): Intake & Output 04/26/17 04/27/17 04/27/17 22:59 06:59 14:59 Intake Total 1063.6 1173.6 566.8 Output Total 500 80 310 Balance 563.6 1093.6 256.8 Intake: IV 100 200 Intake, IV Amount 873.6 913.6 456.8 Left PICC 113.6 113.6 56.8 Left PICC #2 760 800 400 Tube Feeding 60 60 20 Other 30 90 Output: Drainage 70 80 Left Lower Abdomen 40 40 Right Lower Abdomen 30 40 Urine 430 310 Urethral (Tovar) 430 310 Stool 0 - Physical Exam Head: Positive for: Atraumatic, Normocephalic. Negative for: Tenderness Pupils: Positive for: PERRL Extroacular Muscles: Positive for: EOMI Mouth: Positive for: Moist Mucous Membranes. Negative for: Dry, Drooling Nose (External): Positive for: Other (NGT in place) Nose (Internal): Positive for: Normal Inspection, Moist Neck: Positive for: Normal Range of Motion. Negative for: JVD, Lymphadenopathy Respiratory/Chest: Positive for: Clear to Auscultation. Negative for: Respiratory Distress, Accessory Muscle Use Cardiovascular: Positive for: Regular Rate and Rhythm, Normal S1, S2 Abdomen: Positive for: Tenderness (mild tenderness of palpation. patient continues to move her arms towards hands on palpation). Negative for: Distention, Guarding Upper Extremity: Positive for: Normal Inspection, Normal ROM, Capillary Refill < 2s. Negative for: Edema Lower Extremity: Positive for: Normal Inspection. Negative for: Edema Neurological: Positive for: CN II-XII Intact Skin: Positive for: Warm, Pale Psychiatric: Positive for: Alert - Medications Active Medications: Active Medications Generic Name Dose Route Start Last Admin Trade Name Freq PRN Reason Stop Dose Admin Acetaminophen 650 mg 04/20/17 10:17 04/26/17 20:06 Tylenol 650 Mg Supp PA 650 mg Q4 PRN Administration Fever >100.4 F Albuterol/Ipratropium 3 ml 04/18/17 14:00 04/27/17 07:32 Duoneb 3 Mg/0.5 Mg (3 Ml) Ud INH 3 ml RQ6 AGUSTIN Administration Ascorbic Acid 500 mg 04/08/17 12:30 04/27/17 09:52 Vitamin C 500 Mg Tab PO 500 mg DAILY AGUSTIN Administration Calcium Acetate 667 mg 04/23/17 17:00 04/27/17 08:25 Phoslo PO 667 mg BIDCC AGUSTIN Administration Hydromorphone HCl 1 mg 04/17/17 07:16 04/25/17 16:49 Dilaudid IVP 1 mg Q3 PRN Administration Pain, severe (8-10) Vasopressin 40 units/ Sodium 40 mls @ 0.6 mls/hr 04/21/17 09:30 04/22/17 00: 39 Chloride IV 0 units/min .Q24H PRN 0 mls/hr TITRATE PER PROTOCOL Titration Protocol 0.01 UNITS/MIN Dexmedetomidine HCl 400 mcg/ 100 mls @ 3.4 mls/hr 04/21/17 16:30 04/27/17 07: 25 Sodium Chloride IV 0.83 mcg/kg/hr TITR PRN 14.11 mls/hr Agitation Administration Protocol 0.2 MCG/KG/HR Cefepime HCl 1 gm in 50 mls @ 100 mls/hr 04/21/17 19:30 04/26/17 18:29 Maxipime Iv 1 Gm Premix IVPB 100 mls/hr Q24H AGUSTIN Administration Vancomycin HCl 500 mg/ Sodium 100 mls @ 100 mls/hr 04/22/17 09:00 04/27/17 08 :25 Chloride IVPB 100 mls/hr MWF AGUSTIN Administration Metronidazole 500 mg in 100 mls @ 100 mls/hr 04/24/17 22:00 04/27/17 05:00 Flagyl IVPB 100 mls/hr Q8 AGUSTIN Administration Sodium Chloride 1,000 mls @ 100 mls/hr 04/25/17 11:30 04/27/17 03:45 Sodium Chloride 0.9% IV 100 mls/hr .Q10H AGUSTIN Administration Levetiracetam 250 mg 04/23/17 18:00 04/27/17 09:52 Keppra PO 250 mg BID AGUSTIN Administration Lorazepam 0.5 mg 04/01/17 16:08 04/26/17 23:07 Ativan IVP 0.5 mg Q3H PRN Administration Anxiety Lorazepam 2 mg 04/20/17 18:18 04/26/17 06:07 Ativan IVP 2 mg Q4H PRN Administration Seizure activity Metoprolol Tartrate 12.5 mg 04/26/17 18:00 04/27/17 09:52 Lopressor PO 12.5 mg BID AGUSTIN Administration Morphine Sulfate 2 mg 04/25/17 16:07 04/27/17 06:04 Morphine IV 2 mg Q6 PRN Administration Pain, severe (8-10) Ondansetron HCl 4 mg 03/27/17 23:45 04/27/17 03:47 Zofran Inj IVP 4 mg Q6H PRN Administration Nausea/Vomiting Pantoprazole Sodium 20 mg 04/19/17 18:00 04/27/17 09:51 Protonix Inj IVP 20 mg BID AGUSTIN Administration Saccharomyces Boulardii 250 mg 04/08/17 18:00 04/27/17 09:52 Florastor PO 250 mg BID AGUSTIN Administration Thiamine HCl 100 mg 04/08/17 12:30 04/27/17 09:52 Vitamin B1 Tab PO 100 mg DAILY AGUSTIN Administration - Patient Studies Lab Studies: Microbiology Studies 04/24/17 13:00 Blood Culture - Preliminary Blood NO GROWTH AFTER 48 HOURS 04/24/17 12:45 Blood Culture - Preliminary Blood NO GROWTH AFTER 48 HOURS Lab Studies 04/27/17 04/27/17 04/27/17 Range/Units 06:30 06:27 05:54 WBC 19.3 H (4.8-10.8) K/uL RBC 2.71 L (3.80-5.20) Mil/uL Hgb 7.7 L (11.0-16.0) g/dL Hct 23.8 L (34.0-47.0) % MCV 87.9 (81.0-99.0) fL MCH 28.5 (27.0-31.0) pg MCHC 32.5 L (33.0-37.0) g/dL RDW 15.6 H (11.5-14.5) % Plt Count 418 H (130-400) K/uL MPV 8.8 (7.2-11.7) fL Neut % (Auto) 79.8 H (50.0-75.0) % Lymph % (Auto) 9.8 L (20.0-40.0) % Crisp % (Auto) 9.7 (0.0-10.0) % Eos % (Auto) 0.2 (0.0-4.0) % Baso % (Auto) 0.5 (0.0-2.0) % Neut # 15.4 H (1.8-7.0) K/uL Lymph # 1.9 (1.0-4.3) K/uL Crisp # 1.9 H (0.0-0.8) K/uL Eos # 0.0 (0.0-0.7) K/uL Baso # 0.1 (0.0-0.2) K/uL Neutrophils % (Manual) 84 H (50-75) % Lymphocytes % (Manual) 11 L (20-40) % Monocytes % (Manual) 5 (0-10) % Platelet Estimate Slightly increased H (NORMAL) Hypochromasia (manual) Slight Basophilic Stippling Slight Anisocytosis (manual) Slight Puncture Site pCO2 (35-45) mm/Hg pO2 (80-100) mm/Hg HCO3 (21-28) mmol/L ABG pH (7.35-7.45) ABG Total CO2 (22-28) mmol/L ABG O2 Saturation (95-98) % ABG Base Excess (-2.0-3.0) mmol/L ABG Hemoglobin (11.7-17.4) g/dL ABG Carboxyhemoglobin (0.5-1.5) % POC ABG HHb (Measured) (0.0-5.0) % ABG Methemoglobin (0.0-3.0) % Daniel Test A-a O2 Difference mm/Hg Respiratory Index Hgb O2 Saturation (95.0-98.0) % Vent Mode Mechanical Rate FiO2 % Tidal Volume PEEP Sodium 152 H (132-148) mmol/L Potassium 4.0 (3.6-5.2) mmol/L Chloride 117 H (98-107) mmol/L Carbon Dioxide 23 (22-30) mmol/L Anion Gap 16 (10-20) BUN 36 H (7-17) mg/dL Creatinine 2.3 H (0.7-1.2) mg/dL Est GFR ( Amer) 29 Est GFR (Non-Af Amer) 24 POC Glucose (mg/dL) 102 (65-110) mg/dL Random Glucose 106 H (65-105) mg/dL Calcium 8.3 L (8.6-10.4) mg/dl Phosphorus 4.1 (2.5-4.5) mg/dL Magnesium 2.0 (1.6-2.3) mg/dL Total Bilirubin 0.7 (0.2-1.3) mg/dL AST 30 (14-36) U/L ALT 27 (9-52) U/L Alkaline Phosphatase 186 H (38-126) U/L Total Protein 6.0 L (6.3-8.3) g/dL Albumin 2.8 L (3.5-5.0) g/dL Globulin 3.2 (2.2-3.9) gm/dL Albumin/Globulin Ratio 0.9 L (1.0-2.1) Monomeric Prolactin (3.2-25.2) ng/mL Prolactin ng/mL 04/27/17 04/26/17 04/26/17 Range/Units 05:04 23:56 17:49 WBC (4.8-10.8) K/uL RBC (3.80-5.20) Mil/uL Hgb (11.0-16.0) g/dL Hct (34.0-47.0) % MCV (81.0-99.0) fL MCH (27.0-31.0) pg MCHC (33.0-37.0) g/dL RDW (11.5-14.5) % Plt Count (130-400) K/uL MPV (7.2-11.7) fL Neut % (Auto) (50.0-75.0) % Lymph % (Auto) (20.0-40.0) % Crisp % (Auto) (0.0-10.0) % Eos % (Auto) (0.0-4.0) % Baso % (Auto) (0.0-2.0) % Neut # (1.8-7.0) K/uL Lymph # (1.0-4.3) K/uL Crisp # (0.0-0.8) K/uL Eos # (0.0-0.7) K/uL Baso # (0.0-0.2) K/uL Neutrophils % (Manual) (50-75) % Lymphocytes % (Manual) (20-40) % Monocytes % (Manual) (0-10) % Platelet Estimate (NORMAL) Hypochromasia (manual) Basophilic Stippling Anisocytosis (manual) Puncture Site Rr pCO2 31 L (35-45) mm/Hg pO2 173 H (80-100) mm/Hg HCO3 22.9 (21-28) mmol/L ABG pH 7.44 (7.35-7.45) ABG Total CO2 22.1 (22-28) mmol/L ABG O2 Saturation 99.8 H (95-98) % ABG Base Excess -2.6 L (-2.0-3.0) mmol/L ABG Hemoglobin 8.0 L (11.7-17.4) g/dL ABG Carboxyhemoglobin 1.6 H (0.5-1.5) % POC ABG HHb (Measured) 0.2 (0.0-5.0) % ABG Methemoglobin 0.8 (0.0-3.0) % Daniel Test Pos A-a O2 Difference 73.0 mm/Hg Respiratory Index 0.4 Hgb O2 Saturation 97.3 (95.0-98.0) % Vent Mode Prvc Mechanical Rate 18 FiO2 40.0 % Tidal Volume 450 PEEP 5 Sodium (132-148) mmol/L Potassium (3.6-5.2) mmol/L Chloride (98-107) mmol/L Carbon Dioxide (22-30) mmol/L Anion Gap (10-20) BUN (7-17) mg/dL Creatinine (0.7-1.2) mg/dL Est GFR ( Amer) Est GFR (Non-Af Amer) POC Glucose (mg/dL) 100 102 (65-110) mg/dL Random Glucose (65-105) mg/dL Calcium (8.6-10.4) mg/dl Phosphorus (2.5-4.5) mg/dL Magnesium (1.6-2.3) mg/dL Total Bilirubin (0.2-1.3) mg/dL AST (14-36) U/L ALT (9-52) U/L Alkaline Phosphatase (38-126) U/L Total Protein (6.3-8.3) g/dL Albumin (3.5-5.0) g/dL Globulin (2.2-3.9) gm/dL Albumin/Globulin Ratio (1.0-2.1) Monomeric Prolactin (3.2-25.2) ng/mL Prolactin ng/mL 04/26/17 04/21/17 Range/Units 11:13 08:32 WBC (4.8-10.8) K/uL RBC (3.80-5.20) Mil/uL Hgb (11.0-16.0) g/dL Hct (34.0-47.0) % MCV (81.0-99.0) fL MCH (27.0-31.0) pg MCHC (33.0-37.0) g/dL RDW (11.5-14.5) % Plt Count (130-400) K/uL MPV (7.2-11.7) fL Neut % (Auto) (50.0-75.0) % Lymph % (Auto) (20.0-40.0) % Crisp % (Auto) (0.0-10.0) % Eos % (Auto) (0.0-4.0) % Baso % (Auto) (0.0-2.0) % Neut # (1.8-7.0) K/uL Lymph # (1.0-4.3) K/uL Crisp # (0.0-0.8) K/uL Eos # (0.0-0.7) K/uL Baso # (0.0-0.2) K/uL Neutrophils % (Manual) (50-75) % Lymphocytes % (Manual) (20-40) % Monocytes % (Manual) (0-10) % Platelet Estimate (NORMAL) Hypochromasia (manual) Basophilic Stippling Anisocytosis (manual) Puncture Site pCO2 (35-45) mm/Hg pO2 (80-100) mm/Hg HCO3 (21-28) mmol/L ABG pH (7.35-7.45) ABG Total CO2 (22-28) mmol/L ABG O2 Saturation (95-98) % ABG Base Excess (-2.0-3.0) mmol/L ABG Hemoglobin (11.7-17.4) g/dL ABG Carboxyhemoglobin (0.5-1.5) % POC ABG HHb (Measured) (0.0-5.0) % ABG Methemoglobin (0.0-3.0) % Daniel Test A-a O2 Difference mm/Hg Respiratory Index Hgb O2 Saturation (95.0-98.0) % Vent Mode Mechanical Rate FiO2 % Tidal Volume PEEP Sodium (132-148) mmol/L Potassium (3.6-5.2) mmol/L Chloride (98-107) mmol/L Carbon Dioxide (22-30) mmol/L Anion Gap (10-20) BUN (7-17) mg/dL Creatinine (0.7-1.2) mg/dL Est GFR ( Amer) Est GFR (Non-Af Amer) POC Glucose (mg/dL) 128 H (65-110) mg/dL Random Glucose (65-105) mg/dL Calcium (8.6-10.4) mg/dl Phosphorus (2.5-4.5) mg/dL Magnesium (1.6-2.3) mg/dL Total Bilirubin (0.2-1.3) mg/dL AST (14-36) U/L ALT (9-52) U/L Alkaline Phosphatase (38-126) U/L Total Protein (6.3-8.3) g/dL Albumin (3.5-5.0) g/dL Globulin (2.2-3.9) gm/dL Albumin/Globulin Ratio (1.0-2.1) Monomeric Prolactin 109.0 H (3.2-25.2) ng/mL Prolactin 124.4 H ng/mL Laboratory Results - last 24 hr 04/21/17 04/26/17 04/26/17 08:32 11:13 17:49 WBC RBC Hgb Hct MCV MCH MCHC RDW Plt Count MPV Neut % (Auto) Lymph % (Auto) Crisp % (Auto) Eos % (Auto) Baso % (Auto) Neut # Lymph # Crisp # Eos # Baso # Neutrophils % (Manual) Lymphocytes % (Manual) Monocytes % (Manual) Platelet Estimate Hypochromasia (manual) Basophilic Stippling Anisocytosis (manual) Puncture Site pCO2 pO2 HCO3 ABG pH ABG Total CO2 ABG O2 Saturation ABG Base Excess ABG Hemoglobin ABG Carboxyhemoglobin POC ABG HHb (Measured) ABG Methemoglobin Daniel Test A-a O2 Difference Respiratory Index Hgb O2 Saturation Vent Mode Mechanical Rate FiO2 Tidal Volume PEEP Sodium Potassium Chloride Carbon Dioxide Anion Gap BUN Creatinine Est GFR ( Amer) Est GFR (Non-Af Amer) POC Glucose (mg/dL) 128 H 102 Random Glucose Calcium Phosphorus Magnesium Total Bilirubin AST ALT Alkaline Phosphatase Total Protein Albumin Globulin Albumin/Globulin Ratio Monomeric Prolactin 109.0 H Prolactin 124.4 H 04/26/17 04/27/17 04/27/17 23:56 05:04 05:54 WBC RBC Hgb Hct MCV MCH MCHC RDW Plt Count MPV Neut % (Auto) Lymph % (Auto) Crisp % (Auto) Eos % (Auto) Baso % (Auto) Neut # Lymph # Crisp # Eos # Baso # Neutrophils % (Manual) Lymphocytes % (Manual) Monocytes % (Manual) Platelet Estimate Hypochromasia (manual) Basophilic Stippling Anisocytosis (manual) Puncture Site Rr pCO2 31 L pO2 173 H HCO3 22.9 ABG pH 7.44 ABG Total CO2 22.1 ABG O2 Saturation 99.8 H ABG Base Excess -2.6 L ABG Hemoglobin 8.0 L ABG Carboxyhemoglobin 1.6 H POC ABG HHb (Measured) 0.2 ABG Methemoglobin 0.8 Daniel Test Pos A-a O2 Difference 73.0 Respiratory Index 0.4 Hgb O2 Saturation 97.3 Vent Mode Prvc Mechanical Rate 18 FiO2 40.0 Tidal Volume 450 PEEP 5 Sodium Potassium Chloride Carbon Dioxide Anion Gap BUN Creatinine Est GFR ( Amer) Est GFR (Non-Af Amer) POC Glucose (mg/dL) 100 102 Random Glucose Calcium Phosphorus Magnesium Total Bilirubin AST ALT Alkaline Phosphatase Total Protein Albumin Globulin Albumin/Globulin Ratio Monomeric Prolactin Prolactin 04/27/17 04/27/17 06:27 06:30 WBC 19.3 H RBC 2.71 L Hgb 7.7 L Hct 23.8 L MCV 87.9 MCH 28.5 MCHC 32.5 L RDW 15.6 H Plt Count 418 H MPV 8.8 Neut % (Auto) 79.8 H Lymph % (Auto) 9.8 L Crisp % (Auto) 9.7 Eos % (Auto) 0.2 Baso % (Auto) 0.5 Neut # 15.4 H Lymph # 1.9 Crisp # 1.9 H Eos # 0.0 Baso # 0.1 Neutrophils % (Manual) 84 H Lymphocytes % (Manual) 11 L Monocytes % (Manual) 5 Platelet Estimate Slightly increased H Hypochromasia (manual) Slight Basophilic Stippling Slight Anisocytosis (manual) Slight Puncture Site pCO2 pO2 HCO3 ABG pH ABG Total CO2 ABG O2 Saturation ABG Base Excess ABG Hemoglobin ABG Carboxyhemoglobin POC ABG HHb (Measured) ABG Methemoglobin Daniel Test A-a O2 Difference Respiratory Index Hgb O2 Saturation Vent Mode Mechanical Rate FiO2 Tidal Volume PEEP Sodium 152 H Potassium 4.0 Chloride 117 H Carbon Dioxide 23 Anion Gap 16 BUN 36 H Creatinine 2.3 H Est GFR ( Amer) 29 Est GFR (Non-Af Amer) 24 POC Glucose (mg/dL) Random Glucose 106 H Calcium 8.3 L Phosphorus 4.1 Magnesium 2.0 Total Bilirubin 0.7 AST 30 ALT 27 Alkaline Phosphatase 186 H Total Protein 6.0 L Albumin 2.8 L Globulin 3.2 Albumin/Globulin Ratio 0.9 L Monomeric Prolactin Prolactin Fingerstick Blood Sugar Results: 102 Assessment/Plan - Assessment and Plan (Free Text) Assessment: 36F w/gastrioparesis and GI bleed; s/p boby en Y bypass, J-tube POD 9 Plan: Neuro: * Neuro (Aureliano) * Hx Schizophrenia, mental retardation * Seizure activity 04/20 * Haloperidol 1 IV BID PRN * Keppra 250 PO BID * Ativan 0.5 IV Q3 PRN * Ativan 2 IV Q4 PRN Seizure * Precedex 400 @ 3.4 * Thiamine 100mg PO QD * Vit C 500mg PO QD Psych: * Psych (Ozden) * Quetiapine, Escitalopram - held Cardio: * Cards (Dex) * Tachy Pulm: * Intubated, trach, CPAP today, doing well * R. Lung pneumonia * Maxipime1 IV QD * Vanco 500 IV MWF * Flagyl 500 IV Q8 * Albuterol/Ipratropium 3cc INH RQ6H Endo: * 03/28 Hemoglobin A1c 5.3 GI: * S/P R-n-Y POD 8 * J tube Glucerna 1.5 @ 30 - tube feeds stopped due to patient vomiting, will order CT po/IV contrast * Dilaudid 1 IV Q3 PRN * Hal Drain * Zofran IV Q6 PRN Renal: * Permacath * HD on hold * making urine : * continues to make urine * Urine Culture - yeast * Diflucan 200 IV QD Heme: * Hx GI bleed * Hgb stable * S/p RnY MSK: * Prior to hospitalization could ambulate * PT/OT ID: * WBC downtrending * Maxipime1 IV QD * Diflucan 200 IV QD * Vanco 500 IV MWF * Flagyl 500 IV Q8 * F/U Blood cultures * PICC Line Prophylaxis: * Protonix Q12H * Zofran 4mg IV Q6H * Fluids: NS @ 100 <Jose Hernandez S - Last Filed: 04/27/17 16:25> CCU Objective - Vital Signs / Intake & Output Vital Signs (Last 4 hours): Vital Signs Pulse Resp BP Pulse Ox 04/27/17 15:04 102 H 32 H 118/82 96 04/27/17 15:00 110 H 13 94 L 04/27/17 14:04 109 H 10 L 110/76 91 L 04/27/17 14:00 109 H 29 H 100 04/27/17 13:03 105 H 19 118/77 99 04/27/17 13:00 107 H 14 91 L Intake and Output (Last 8hrs): Intake & Output 04/27/17 04/27/17 04/27/17 06:59 14:59 22:59 Intake Total 1173.6 1023.6 914.2 Output Total 80 490 Balance 1093.6 533.6 914.2 Intake: IV 200 Intake, IV Amount 913.6 913.6 114.2 Left PICC 113.6 113.6 14.2 Left PICC #2 800 800 100 Tube Feeding 60 20 Other 90 800 Output: Drainage 80 Left Lower Abdomen 40 Right Lower Abdomen 40 Urine 490 Urethral (Tovar) 490 Stool 0 - Medications Active Medications: Active Medications Generic Name Dose Route Start Last Admin Trade Name Freq PRN Reason Stop Dose Admin Acetaminophen 650 mg 04/20/17 10:17 04/26/17 20:06 Tylenol 650 Mg Supp PA 650 mg Q4 PRN Administration Fever >100.4 F Albuterol/Ipratropium 3 ml 04/18/17 14:00 04/27/17 13:04 Duoneb 3 Mg/0.5 Mg (3 Ml) Ud INH 3 ml RQ6 AGUSTIN Administration Ascorbic Acid 500 mg 04/08/17 12:30 04/27/17 09:52 Vitamin C 500 Mg Tab PO 500 mg DAILY AGUSTIN Administration Calcium Acetate 667 mg 04/23/17 17:00 04/27/17 08:25 Phoslo PO 667 mg BIDCC AGUSTIN Administration Hydromorphone HCl 1 mg 04/17/17 07:16 04/25/17 16:49 Dilaudid IVP 1 mg Q3 PRN Administration Pain, severe (8-10) Vasopressin 40 units/ Sodium 40 mls @ 0.6 mls/hr 04/21/17 09:30 04/22/17 00: 39 Chloride IV 0 units/min .Q24H PRN 0 mls/hr TITRATE PER PROTOCOL Titration Protocol 0.01 UNITS/MIN Dexmedetomidine HCl 400 mcg/ 100 mls @ 3.4 mls/hr 04/21/17 16:30 04/27/17 07: 25 Sodium Chloride IV 0.83 mcg/kg/hr TITR PRN 14.11 mls/hr Agitation Administration Protocol 0.2 MCG/KG/HR Cefepime HCl 1 gm in 50 mls @ 100 mls/hr 04/21/17 19:30 04/26/17 18:29 Maxipime Iv 1 Gm Premix IVPB 100 mls/hr Q24H AGUSTIN Administration Vancomycin HCl 500 mg/ Sodium 100 mls @ 100 mls/hr 04/22/17 09:00 04/27/17 08 :25 Chloride IVPB 100 mls/hr MWF AGUSTIN Administration Fluconazole 100 mls @ 100 mls/hr 04/28/17 10:00 Diflucan Iv 200 Mg/100 Ml Ns IVPB DAILY AGUSTIN Sodium Chloride 1,000 mls @ 100 mls/hr 04/27/17 13:45 04/27/17 14:08 Sodium Chloride 0.45% IV 100 mls/hr .Q10H AGUSTIN Administration Levetiracetam 250 mg 04/23/17 18:00 04/27/17 09:52 Keppra PO 250 mg BID AGUSTIN Administration Lorazepam 0.5 mg 04/01/17 16:08 04/26/17 23:07 Ativan IVP 0.5 mg Q3H PRN Administration Anxiety Lorazepam 2 mg 04/20/17 18:18 04/26/17 06:07 Ativan IVP 2 mg Q4H PRN Administration Seizure activity Metoprolol Tartrate 12.5 mg 04/26/17 18:00 04/27/17 09:52 Lopressor PO 12.5 mg BID AGUSTIN Administration Metronidazole 500 mg 04/27/17 22:00 Flagyl JT Q8 AGUSTIN Morphine Sulfate 2 mg 04/25/17 16:07 04/27/17 06:04 Morphine IV 2 mg Q6 PRN Administration Pain, severe (8-10) Ondansetron HCl 4 mg 03/27/17 23:45 04/27/17 03:47 Zofran Inj IVP 4 mg Q6H PRN Administration Nausea/Vomiting Pantoprazole Sodium 20 mg 04/19/17 18:00 04/27/17 09:51 Protonix Inj IVP 20 mg BID AGUSTIN Administration Saccharomyces Boulardii 250 mg 04/08/17 18:00 04/27/17 09:52 Florastor PO 250 mg BID AGUSTIN Administration Thiamine HCl 100 mg 04/08/17 12:30 04/27/17 09:52 Vitamin B1 Tab PO 100 mg DAILY AGUSTIN Administration - Patient Studies Lab Studies: Microbiology Studies 04/24/17 13:00 Blood Culture - Preliminary Blood NO GROWTH AFTER 3 DAYS 04/24/17 12:45 Blood Culture - Preliminary Blood NO GROWTH AFTER 3 DAYS 04/18/17 07:27 Blood Fungal Culture - Preliminary Other: Please Indicate Lab Studies 01/04/27/17 04/27/17 Range/Units 14:40 14:40 11:09 WBC (4.8-10.8) K/uL RBC (3.80-5.20) Mil/uL Hgb (11.0-16.0) g/dL Hct (34.0-47.0) % MCV (81.0-99.0) fL MCH (27.0-31.0) pg MCHC (33.0-37.0) g/dL RDW (11.5-14.5) % Plt Count (130-400) K/uL MPV (7.2-11.7) fL Neut % (Auto) (50.0-75.0) % Lymph % (Auto) (20.0-40.0) % Crisp % (Auto) (0.0-10.0) % Eos % (Auto) (0.0-4.0) % Baso % (Auto) (0.0-2.0) % Neut # (1.8-7.0) K/uL Lymph # (1.0-4.3) K/uL Crisp # (0.0-0.8) K/uL Eos # (0.0-0.7) K/uL Baso # (0.0-0.2) K/uL Neutrophils % (Manual) (50-75) % Lymphocytes % (Manual) (20-40) % Monocytes % (Manual) (0-10) % Platelet Estimate (NORMAL) Hypochromasia (manual) Basophilic Stippling Anisocytosis (manual) Puncture Site pCO2 (35-45) mm/Hg pO2 (80-100) mm/Hg HCO3 (21-28) mmol/L ABG pH (7.35-7.45) ABG Total CO2 (22-28) mmol/L ABG O2 Saturation (95-98) % ABG Base Excess (-2.0-3.0) mmol/L ABG Hemoglobin (11.7-17.4) g/dL ABG Carboxyhemoglobin (0.5-1.5) % POC ABG HHb (Measured) (0.0-5.0) % ABG Methemoglobin (0.0-3.0) % Daniel Test A-a O2 Difference mm/Hg Respiratory Index Hgb O2 Saturation (95.0-98.0) % Vent Mode Mechanical Rate FiO2 % Tidal Volume PEEP Sodium (132-148) mmol/L Potassium (3.6-5.2) mmol/L Chloride (98-107) mmol/L Carbon Dioxide (22-30) mmol/L Anion Gap (10-20) BUN (7-17) mg/dL Creatinine (0.7-1.2) mg/dL Est GFR ( Amer) Est GFR (Non-Af Amer) POC Glucose (mg/dL) 104 (65-110) mg/dL Random Glucose (65-105) mg/dL Serum Osmolality 322 H (272-300) mosm/kg Calcium (8.6-10.4) mg/dl Phosphorus (2.5-4.5) mg/dL Magnesium (1.6-2.3) mg/dL Total Bilirubin (0.2-1.3) mg/dL AST (14-36) U/L ALT (9-52) U/L Alkaline Phosphatase (38-126) U/L Total Protein (6.3-8.3) g/dL Albumin (3.5-5.0) g/dL Globulin (2.2-3.9) gm/dL Albumin/Globulin Ratio (1.0-2.1) Monomeric Prolactin (3.2-25.2) ng/mL Prolactin ng/mL Urine Osmolality 417 (300-1000) mosm/kg Ur Random Sodium 92 mmol/L 04/27/17 04/27/17 04/27/17 Range/Units 06:30 06:27 05:54 WBC 19.3 H (4.8-10.8) K/uL RBC 2.71 L (3.80-5.20) Mil/uL Hgb 7.7 L (11.0-16.0) g/dL Hct 23.8 L (34.0-47.0) % MCV 87.9 (81.0-99.0) fL MCH 28.5 (27.0-31.0) pg MCHC 32.5 L (33.0-37.0) g/dL RDW 15.6 H (11.5-14.5) % Plt Count 418 H (130-400) K/uL MPV 8.8 (7.2-11.7) fL Neut % (Auto) 79.8 H (50.0-75.0) % Lymph % (Auto) 9.8 L (20.0-40.0) % Crisp % (Auto) 9.7 (0.0-10.0) % Eos % (Auto) 0.2 (0.0-4.0) % Baso % (Auto) 0.5 (0.0-2.0) % Neut # 15.4 H (1.8-7.0) K/uL Lymph # 1.9 (1.0-4.3) K/uL Crisp # 1.9 H (0.0-0.8) K/uL Eos # 0.0 (0.0-0.7) K/uL Baso # 0.1 (0.0-0.2) K/uL Neutrophils % (Manual) 84 H (50-75) % Lymphocytes % (Manual) 11 L (20-40) % Monocytes % (Manual) 5 (0-10) % Platelet Estimate Slightly increased H (NORMAL) Hypochromasia (manual) Slight Basophilic Stippling Slight Anisocytosis (manual) Slight Puncture Site pCO2 (35-45) mm/Hg pO2 (80-100) mm/Hg HCO3 (21-28) mmol/L ABG pH (7.35-7.45) ABG Total CO2 (22-28) mmol/L ABG O2 Saturation (95-98) % ABG Base Excess (-2.0-3.0) mmol/L ABG Hemoglobin (11.7-17.4) g/dL ABG Carboxyhemoglobin (0.5-1.5) % POC ABG HHb (Measured) (0.0-5.0) % ABG Methemoglobin (0.0-3.0) % Daniel Test A-a O2 Difference mm/Hg Respiratory Index Hgb O2 Saturation (95.0-98.0) % Vent Mode Mechanical Rate FiO2 % Tidal Volume PEEP Sodium 152 H (132-148) mmol/L Potassium 4.0 (3.6-5.2) mmol/L Chloride 117 H (98-107) mmol/L Carbon Dioxide 23 (22-30) mmol/L Anion Gap 16 (10-20) BUN 36 H (7-17) mg/dL Creatinine 2.3 H (0.7-1.2) mg/dL Est GFR ( Amer) 29 Est GFR (Non-Af Amer) 24 POC Glucose (mg/dL) 102 (65-110) mg/dL Random Glucose 106 H (65-105) mg/dL Serum Osmolality (272-300) mosm/kg Calcium 8.3 L (8.6-10.4) mg/dl Phosphorus 4.1 (2.5-4.5) mg/dL Magnesium 2.0 (1.6-2.3) mg/dL Total Bilirubin 0.7 (0.2-1.3) mg/dL AST 30 (14-36) U/L ALT 27 (9-52) U/L Alkaline Phosphatase 186 H (38-126) U/L Total Protein 6.0 L (6.3-8.3) g/dL Albumin 2.8 L (3.5-5.0) g/dL Globulin 3.2 (2.2-3.9) gm/dL Albumin/Globulin Ratio 0.9 L (1.0-2.1) Monomeric Prolactin (3.2-25.2) ng/mL Prolactin ng/mL Urine Osmolality (300-1000) mosm/kg Ur Random Sodium mmol/L 04/27/17 04/26/17 04/26/17 Range/Units 05:04 23:56 17:49 WBC (4.8-10.8) K/uL RBC (3.80-5.20) Mil/uL Hgb (11.0-16.0) g/dL Hct (34.0-47.0) % MCV (81.0-99.0) fL MCH (27.0-31.0) pg MCHC (33.0-37.0) g/dL RDW (11.5-14.5) % Plt Count (130-400) K/uL MPV (7.2-11.7) fL Neut % (Auto) (50.0-75.0) % Lymph % (Auto) (20.0-40.0) % Crisp % (Auto) (0.0-10.0) % Eos % (Auto) (0.0-4.0) % Baso % (Auto) (0.0-2.0) % Neut # (1.8-7.0) K/uL Lymph # (1.0-4.3) K/uL Crisp # (0.0-0.8) K/uL Eos # (0.0-0.7) K/uL Baso # (0.0-0.2) K/uL Neutrophils % (Manual) (50-75) % Lymphocytes % (Manual) (20-40) % Monocytes % (Manual) (0-10) % Platelet Estimate (NORMAL) Hypochromasia (manual) Basophilic Stippling Anisocytosis (manual) Puncture Site Rr pCO2 31 L (35-45) mm/Hg pO2 173 H (80-100) mm/Hg HCO3 22.9 (21-28) mmol/L ABG pH 7.44 (7.35-7.45) ABG Total CO2 22.1 (22-28) mmol/L ABG O2 Saturation 99.8 H (95-98) % ABG Base Excess -2.6 L (-2.0-3.0) mmol/L ABG Hemoglobin 8.0 L (11.7-17.4) g/dL ABG Carboxyhemoglobin 1.6 H (0.5-1.5) % POC ABG HHb (Measured) 0.2 (0.0-5.0) % ABG Methemoglobin 0.8 (0.0-3.0) % Daniel Test Pos A-a O2 Difference 73.0 mm/Hg Respiratory Index 0.4 Hgb O2 Saturation 97.3 (95.0-98.0) % Vent Mode Prvc Mechanical Rate 18 FiO2 40.0 % Tidal Volume 450 PEEP 5 Sodium (132-148) mmol/L Potassium (3.6-5.2) mmol/L Chloride (98-107) mmol/L Carbon Dioxide (22-30) mmol/L Anion Gap (10-20) BUN (7-17) mg/dL Creatinine (0.7-1.2) mg/dL Est GFR ( Amer) Est GFR (Non-Af Amer) POC Glucose (mg/dL) 100 102 (65-110) mg/dL Random Glucose (65-105) mg/dL Serum Osmolality (272-300) mosm/kg Calcium (8.6-10.4) mg/dl Phosphorus (2.5-4.5) mg/dL Magnesium (1.6-2.3) mg/dL Total Bilirubin (0.2-1.3) mg/dL AST (14-36) U/L ALT (9-52) U/L Alkaline Phosphatase (38-126) U/L Total Protein (6.3-8.3) g/dL Albumin (3.5-5.0) g/dL Globulin (2.2-3.9) gm/dL Albumin/Globulin Ratio (1.0-2.1) Monomeric Prolactin (3.2-25.2) ng/mL Prolactin ng/mL Urine Osmolality (300-1000) mosm/kg Ur Random Sodium mmol/L 04/21/17 Range/Units 08:32 WBC (4.8-10.8) K/uL RBC (3.80-5.20) Mil/uL Hgb (11.0-16.0) g/dL Hct (34.0-47.0) % MCV (81.0-99.0) fL MCH (27.0-31.0) pg MCHC (33.0-37.0) g/dL RDW (11.5-14.5) % Plt Count (130-400) K/uL MPV (7.2-11.7) fL Neut % (Auto) (50.0-75.0) % Lymph % (Auto) (20.0-40.0) % Crisp % (Auto) (0.0-10.0) % Eos % (Auto) (0.0-4.0) % Baso % (Auto) (0.0-2.0) % Neut # (1.8-7.0) K/uL Lymph # (1.0-4.3) K/uL Crisp # (0.0-0.8) K/uL Eos # (0.0-0.7) K/uL Baso # (0.0-0.2) K/uL Neutrophils % (Manual) (50-75) % Lymphocytes % (Manual) (20-40) % Monocytes % (Manual) (0-10) % Platelet Estimate (NORMAL) Hypochromasia (manual) Basophilic Stippling Anisocytosis (manual) Puncture Site pCO2 (35-45) mm/Hg pO2 (80-100) mm/Hg HCO3 (21-28) mmol/L ABG pH (7.35-7.45) ABG Total CO2 (22-28) mmol/L ABG O2 Saturation (95-98) % ABG Base Excess (-2.0-3.0) mmol/L ABG Hemoglobin (11.7-17.4) g/dL ABG Carboxyhemoglobin (0.5-1.5) % POC ABG HHb (Measured) (0.0-5.0) % ABG Methemoglobin (0.0-3.0) % Daniel Test A-a O2 Difference mm/Hg Respiratory Index Hgb O2 Saturation (95.0-98.0) % Vent Mode Mechanical Rate FiO2 % Tidal Volume PEEP Sodium (132-148) mmol/L Potassium (3.6-5.2) mmol/L Chloride (98-107) mmol/L Carbon Dioxide (22-30) mmol/L Anion Gap (10-20) BUN (7-17) mg/dL Creatinine (0.7-1.2) mg/dL Est GFR ( Amer) Est GFR (Non-Af Amer) POC Glucose (mg/dL) (65-110) mg/dL Random Glucose (65-105) mg/dL Serum Osmolality (272-300) mosm/kg Calcium (8.6-10.4) mg/dl Phosphorus (2.5-4.5) mg/dL Magnesium (1.6-2.3) mg/dL Total Bilirubin (0.2-1.3) mg/dL AST (14-36) U/L ALT (9-52) U/L Alkaline Phosphatase (38-126) U/L Total Protein (6.3-8.3) g/dL Albumin (3.5-5.0) g/dL Globulin (2.2-3.9) gm/dL Albumin/Globulin Ratio (1.0-2.1) Monomeric Prolactin 109.0 H (3.2-25.2) ng/mL Prolactin 124.4 H ng/mL Urine Osmolality (300-1000) mosm/kg Ur Random Sodium mmol/L Laboratory Results - last 24 hr 04/21/17 04/26/17 04/26/17 08:32 17:49 23:56 WBC RBC Hgb Hct MCV MCH MCHC RDW Plt Count MPV Neut % (Auto) Lymph % (Auto) Crisp % (Auto) Eos % (Auto) Baso % (Auto) Neut # Lymph # Crisp # Eos # Baso # Neutrophils % (Manual) Lymphocytes % (Manual) Monocytes % (Manual) Platelet Estimate Hypochromasia (manual) Basophilic Stippling Anisocytosis (manual) Puncture Site pCO2 pO2 HCO3 ABG pH ABG Total CO2 ABG O2 Saturation ABG Base Excess ABG Hemoglobin ABG Carboxyhemoglobin POC ABG HHb (Measured) ABG Methemoglobin Daniel Test A-a O2 Difference Respiratory Index Hgb O2 Saturation Vent Mode Mechanical Rate FiO2 Tidal Volume PEEP Sodium Potassium Chloride Carbon Dioxide Anion Gap BUN Creatinine Est GFR ( Amer) Est GFR (Non-Af Amer) POC Glucose (mg/dL) 102 100 Random Glucose Serum Osmolality Calcium Phosphorus Magnesium Total Bilirubin AST ALT Alkaline Phosphatase Total Protein Albumin Globulin Albumin/Globulin Ratio Monomeric Prolactin 109.0 H Prolactin 124.4 H Urine Osmolality Ur Random Sodium 04/27/17 04/27/17 04/27/17 05:04 05:54 06:27 WBC 19.3 H RBC 2.71 L Hgb 7.7 L Hct 23.8 L MCV 87.9 MCH 28.5 MCHC 32.5 L RDW 15.6 H Plt Count 418 H MPV 8.8 Neut % (Auto) 79.8 H Lymph % (Auto) 9.8 L Crisp % (Auto) 9.7 Eos % (Auto) 0.2 Baso % (Auto) 0.5 Neut # 15.4 H Lymph # 1.9 Crisp # 1.9 H Eos # 0.0 Baso # 0.1 Neutrophils % (Manual) 84 H Lymphocytes % (Manual) 11 L Monocytes % (Manual) 5 Platelet Estimate Slightly increased H Hypochromasia (manual) Slight Basophilic Stippling Slight Anisocytosis (manual) Slight Puncture Site Rr pCO2 31 L pO2 173 H HCO3 22.9 ABG pH 7.44 ABG Total CO2 22.1 ABG O2 Saturation 99.8 H ABG Base Excess -2.6 L ABG Hemoglobin 8.0 L ABG Carboxyhemoglobin 1.6 H POC ABG HHb (Measured) 0.2 ABG Methemoglobin 0.8 Daniel Test Pos A-a O2 Difference 73.0 Respiratory Index 0.4 Hgb O2 Saturation 97.3 Vent Mode Prvc Mechanical Rate 18 FiO2 40.0 Tidal Volume 450 PEEP 5 Sodium Potassium Chloride Carbon Dioxide Anion Gap BUN Creatinine Est GFR ( Amer) Est GFR (Non-Af Amer) POC Glucose (mg/dL) 102 Random Glucose Serum Osmolality Calcium Phosphorus Magnesium Total Bilirubin AST ALT Alkaline Phosphatase Total Protein Albumin Globulin Albumin/Globulin Ratio Monomeric Prolactin Prolactin Urine Osmolality Ur Random Sodium 04/27/17 04/27/17 04/27/17 06:30 11:09 14:40 WBC RBC Hgb Hct MCV MCH MCHC RDW Plt Count MPV Neut % (Auto) Lymph % (Auto) Crisp % (Auto) Eos % (Auto) Baso % (Auto) Neut # Lymph # Crisp # Eos # Baso # Neutrophils % (Manual) Lymphocytes % (Manual) Monocytes % (Manual) Platelet Estimate Hypochromasia (manual) Basophilic Stippling Anisocytosis (manual) Puncture Site pCO2 pO2 HCO3 ABG pH ABG Total CO2 ABG O2 Saturation ABG Base Excess ABG Hemoglobin ABG Carboxyhemoglobin POC ABG HHb (Measured) ABG Methemoglobin Daniel Test A-a O2 Difference Respiratory Index Hgb O2 Saturation Vent Mode Mechanical Rate FiO2 Tidal Volume PEEP Sodium 152 H Potassium 4.0 Chloride 117 H Carbon Dioxide 23 Anion Gap 16 BUN 36 H Creatinine 2.3 H Est GFR ( Amer) 29 Est GFR (Non-Af Amer) 24 POC Glucose (mg/dL) 104 Random Glucose 106 H Serum Osmolality 322 H Calcium 8.3 L Phosphorus 4.1 Magnesium 2.0 Total Bilirubin 0.7 AST 30 ALT 27 Alkaline Phosphatase 186 H Total Protein 6.0 L Albumin 2.8 L Globulin 3.2 Albumin/Globulin Ratio 0.9 L Monomeric Prolactin Prolactin Urine Osmolality Ur Random Sodium 04/27/17 14:40 WBC RBC Hgb Hct MCV MCH MCHC RDW Plt Count MPV Neut % (Auto) Lymph % (Auto) Crisp % (Auto) Eos % (Auto) Baso % (Auto) Neut # Lymph # Crisp # Eos # Baso # Neutrophils % (Manual) Lymphocytes % (Manual) Monocytes % (Manual) Platelet Estimate Hypochromasia (manual) Basophilic Stippling Anisocytosis (manual) Puncture Site pCO2 pO2 HCO3 ABG pH ABG Total CO2 ABG O2 Saturation ABG Base Excess ABG Hemoglobin ABG Carboxyhemoglobin POC ABG HHb (Measured) ABG Methemoglobin Daniel Test A-a O2 Difference Respiratory Index Hgb O2 Saturation Vent Mode Mechanical Rate FiO2 Tidal Volume PEEP Sodium Potassium Chloride Carbon Dioxide Anion Gap BUN Creatinine Est GFR ( Amer) Est GFR (Non-Af Amer) POC Glucose (mg/dL) Random Glucose Serum Osmolality Calcium Phosphorus Magnesium Total Bilirubin AST ALT Alkaline Phosphatase Total Protein Albumin Globulin Albumin/Globulin Ratio Monomeric Prolactin Prolactin Urine Osmolality 417 Ur Random Sodium 92 Assessment/Plan (1) SMAS (superior mesenteric artery syndrome) Current Visit: Yes Status: Acute Comment: (2) Acute renal failure Current Visit: Yes Status: Acute (3) Mental retardation Current Visit: No Status: Acute Attending/Attestation - Attestation I have personally seen and examined this patient.: Yes I have fully participated in the care of the patient.: Yes I have reviewed all pertinent clinical information: Yes Notes (Text): 04/27/17 16:25 patient seen and examined in the intensive care unit. Feeding on hold because of vomiting Plan CAT scan of the abdomen Patient seen by surgery Continue antibiotics as per infectious disease Tolerating trach collar
[2017-04-27] MEDS ORDERED: Iohexol 240 (50 ml) PO ONE (10:45)
[2017-04-27] MEDS ORDERED: Fluconazole IV 200mg/100 ml NS 100 ML IVPB SCH (11:00)
--- NOTE | 2017-04-27 12:59 | CP.PCM.PN ---
Subjective - Date & Time of Evaluation Date of Evaluation: 04/27/17 Time of Evaluation: 12:55 - Subjective Subjective: Ms Rivera was seen and examined at the bedside in the ICU. She is awake, but no verbal response. She easily gets agitated with tactile stimuli. She refused for her pupils to be assessed. She remains on a trach and ventilator. She remains on precedex drip for sedation. She remains on bilateral hand mittens with no focal seizure noted in her left upper extremity. She is restless, kicks all her cover. She had episode of vomiting last night, jejunostomy connected to suction. Objective - Vital Signs/Intake and Output Vital Signs (last 24 hours): Temp Pulse Resp BP Pulse Ox 99.1 F 108 H 18 108/67 100 04/27/17 07:45 04/27/17 09:03 04/27/17 09:03 04/27/17 09:03 04/27/17 09:03 Intake and Output: 04/27/17 04/27/17 06:59 18:59 Intake Total 1670.4 566.8 Output Total 130 310 Balance 1540.4 256.8 - Medications Medications: Current Medications Acetaminophen (Tylenol 650 Mg Supp) 650 mg [place] Q4 PRN PRN Reason: Fever >100.4 F Last Admin: 04/26/17 20:06 Dose: 650 mg Albuterol/Ipratropium (Duoneb 3 Mg/0.5 Mg (3 Ml) Ud) 3 ml INH RQ6 [facility] Last Admin: 04/27/17 07:32 Dose: 3 ml Ascorbic Acid (Vitamin C 500 Mg Tab) 500 mg PO DAILY [facility] Last Admin: 04/27/17 09:52 Dose: 500 mg Calcium Acetate (Phoslo) 667 mg PO BIDCC [facility] Last Admin: 04/27/17 08:25 Dose: 667 mg Hydromorphone HCl (Dilaudid) 1 mg IVP Q3 PRN PRN Reason: Pain, severe (8-10) Last Admin: 04/25/17 16:49 Dose: 1 mg Vasopressin 40 units/ Sodium (Chloride) 40 mls @ 0.6 mls/hr IV .Q24H PRN; Protocol; 0.01 UNITS/MIN PRN Reason: TITRATE PER PROTOCOL Last Titration: 04/22/17 00:39 Dose: 0 units/min, 0 mls/hr Dexmedetomidine HCl 400 mcg/ (Sodium Chloride) 100 mls @ 3.4 mls/hr IV TITR PRN ; Protocol; 0.2 MCG/KG/HR PRN Reason: Agitation Last Admin: 04/27/17 07:25 Dose: 0.83 mcg/kg/hr, 14.11 mls/hr Cefepime HCl (Maxipime Iv 1 Gm Premix) 1 gm in 50 mls @ 100 mls/hr IVPB Q24H [facility] Last Admin: 04/26/17 18:29 Dose: 100 mls/hr Vancomycin HCl 500 mg/ Sodium (Chloride) 100 mls @ 100 mls/hr IVPB MWF [facility] Last Admin: 04/27/17 08:25 Dose: 100 mls/hr Metronidazole (Flagyl) 500 mg in 100 mls @ 100 mls/hr IVPB Q8 [facility] Last Admin: 04/27/17 05:00 Dose: 100 mls/hr Sodium Chloride (Sodium Chloride 0.9%) 1,000 mls @ 100 mls/hr IV .Q10H [facility] Last Admin: 04/27/17 03:45 Dose: 100 mls/hr Fluconazole (Diflucan Iv 200 Mg/100 Ml Ns) 100 mls @ 100 mls/hr IVPB DAILY [facility] Levetiracetam (Keppra) 250 mg PO BID [facility] Last Admin: 04/27/17 09:52 Dose: 250 mg Lorazepam (Ativan) 0.5 mg IVP Q3H PRN PRN Reason: Anxiety Last Admin: 04/26/17 23:07 Dose: 0.5 mg Lorazepam (Ativan) 2 mg IVP Q4H PRN PRN Reason: Seizure activity Last Admin: 04/26/17 06:07 Dose: 2 mg Metoprolol Tartrate (Lopressor) 12.5 mg PO BID [facility] Last Admin: 04/27/17 09:52 Dose: 12.5 mg Morphine Sulfate (Morphine) 2 mg IV Q6 PRN PRN Reason: Pain, severe (8-10) Last Admin: 04/27/17 06:04 Dose: 2 mg Ondansetron HCl (Zofran Inj) 4 mg IVP Q6H PRN PRN Reason: Nausea/Vomiting Last Admin: 04/27/17 03:47 Dose: 4 mg Pantoprazole Sodium (Protonix Inj) 20 mg IVP BID [facility] Last Admin: 04/27/17 09:51 Dose: 20 mg Saccharomyces Boulardii (Florastor) 250 mg PO BID [facility] Last Admin: 04/27/17 09:52 Dose: 250 mg Thiamine HCl (Vitamin B1 Tab) 100 mg PO DAILY [facility] Last Admin: 04/27/17 09:52 Dose: 100 mg - Labs Labs: 04/27/17 06:27 04/27/17 06:30 PT 14.0 SECONDS (9.7-12.2) H 04/25/17 06:25 INR 1.2 04/25/17 06:25 APTT 32 SECONDS (21-34) 04/25/17 06:25 - Constitutional Appears: No Acute Distress - Head Exam Head Exam: NORMAL INSPECTION - Neurological Exam Neurological Exam: Awake Neuro motor strength exam: Left Upper Extremity: 4, Right Upper Extremity: 4, Left Lower Extremity: 5, Right Lower Extremity: 5 Additional comments: She is unable to follow simple commands, however, she moves her lower extremities spontaneously. Assessment and Plan (1) Focal seizure Assessment & Plan: Case discussed with Dr. Bryant, continue all current medical regimen. Pending EEG. Status: Acute
[2017-04-27] MEDS: Sodium Chloride 0.45% 1,000 ML IV SCH (14:08)
--- NOTE | 2017-04-27 14:17 | CP.PCM.PN ---
Subjective - Date & Time of Evaluation Date of Evaluation: 04/27/17 Time of Evaluation: 14:14 - Subjective Subjective: on respirator via trach good u/o creatinine decreasing vomiting, feeds on hold CT scan with contrast planned unable to obtain ROS due to above Objective - Vital Signs/Intake and Output Vital Signs (last 24 hours): Temp Pulse Resp BP Pulse Ox 98.9 F 105 H 19 118/77 99 04/27/17 12:00 04/27/17 13:03 04/27/17 13:03 04/27/17 13:03 04/27/17 13:03 Intake and Output: 04/27/17 04/27/17 06:59 18:59 Intake Total 1670.4 909.4 Output Total 130 490 Balance 1540.4 419.4 - Medications Medications: Current Medications Acetaminophen (Tylenol 650 Mg Supp) 650 mg [place] Q4 PRN PRN Reason: Fever >100.4 F Last Admin: 04/26/17 20:06 Dose: 650 mg Albuterol/Ipratropium (Duoneb 3 Mg/0.5 Mg (3 Ml) Ud) 3 ml INH RQ6 [facility] Last Admin: 04/27/17 13:04 Dose: 3 ml Ascorbic Acid (Vitamin C 500 Mg Tab) 500 mg PO DAILY [facility] Last Admin: 04/27/17 09:52 Dose: 500 mg Calcium Acetate (Phoslo) 667 mg PO BIDCC [facility] Last Admin: 04/27/17 08:25 Dose: 667 mg Hydromorphone HCl (Dilaudid) 1 mg IVP Q3 PRN PRN Reason: Pain, severe (8-10) Last Admin: 04/25/17 16:49 Dose: 1 mg Vasopressin 40 units/ Sodium (Chloride) 40 mls @ 0.6 mls/hr IV .Q24H PRN; Protocol; 0.01 UNITS/MIN PRN Reason: TITRATE PER PROTOCOL Last Titration: 04/22/17 00:39 Dose: 0 units/min, 0 mls/hr Dexmedetomidine HCl 400 mcg/ (Sodium Chloride) 100 mls @ 3.4 mls/hr IV TITR PRN ; Protocol; 0.2 MCG/KG/HR PRN Reason: Agitation Last Admin: 04/27/17 07:25 Dose: 0.83 mcg/kg/hr, 14.11 mls/hr Cefepime HCl (Maxipime Iv 1 Gm Premix) 1 gm in 50 mls @ 100 mls/hr IVPB Q24H [facility] Last Admin: 04/26/17 18:29 Dose: 100 mls/hr Vancomycin HCl 500 mg/ Sodium (Chloride) 100 mls @ 100 mls/hr IVPB MWF [facility] Last Admin: 04/27/17 08:25 Dose: 100 mls/hr Metronidazole (Flagyl) 500 mg in 100 mls @ 100 mls/hr IVPB Q8 [facility] Last Admin: 04/27/17 14:07 Dose: 100 mls/hr Fluconazole (Diflucan Iv 200 Mg/100 Ml Ns) 100 mls @ 100 mls/hr IVPB DAILY [facility] Sodium Chloride (Sodium Chloride 0.45%) 1,000 mls @ 100 mls/hr IV .Q10H [facility] Last Admin: 04/27/17 14:08 Dose: 100 mls/hr Levetiracetam (Keppra) 250 mg PO BID [facility] Last Admin: 04/27/17 09:52 Dose: 250 mg Lorazepam (Ativan) 0.5 mg IVP Q3H PRN PRN Reason: Anxiety Last Admin: 04/26/17 23:07 Dose: 0.5 mg Lorazepam (Ativan) 2 mg IVP Q4H PRN PRN Reason: Seizure activity Last Admin: 04/26/17 06:07 Dose: 2 mg Metoprolol Tartrate (Lopressor) 12.5 mg PO BID [facility] Last Admin: 04/27/17 09:52 Dose: 12.5 mg Morphine Sulfate (Morphine) 2 mg IV Q6 PRN PRN Reason: Pain, severe (8-10) Last Admin: 04/27/17 06:04 Dose: 2 mg Ondansetron HCl (Zofran Inj) 4 mg IVP Q6H PRN PRN Reason: Nausea/Vomiting Last Admin: 04/27/17 03:47 Dose: 4 mg Pantoprazole Sodium (Protonix Inj) 20 mg IVP BID [facility] Last Admin: 04/27/17 09:51 Dose: 20 mg Saccharomyces Boulardii (Florastor) 250 mg PO BID [facility] Last Admin: 04/27/17 09:52 Dose: 250 mg Thiamine HCl (Vitamin B1 Tab) 100 mg PO DAILY [facility] Last Admin: 04/27/17 09:52 Dose: 100 mg - Labs Labs: 04/27/17 06:27 04/27/17 06:30 PT 14.0 SECONDS (9.7-12.2) H 04/25/17 06:25 INR 1.2 04/25/17 06:25 APTT 32 SECONDS (21-34) 04/25/17 06:25 - Constitutional Appears: No Acute Distress, Chronically Ill - Head Exam Head Exam: ATRAUMATIC - Eye Exam Eye Exam: EOMI - ENT Exam ENT Exam: Mucous Membranes Moist Additional comments: tracheostomy - Respiratory Exam Respiratory Exam: Decreased Breath Sounds - Cardiovascular Exam Cardiovascular Exam: REGULAR RHYTHM. absent: Rubs - GI/Abdominal Exam GI & Abdominal Exam: Distended. absent: Normal Bowel Sounds - Neurological Exam Neurological Exam: absent: Alert Assessment and Plan - Assessment and Plan (Free Text) Assessment: recovered from HD contrast procedure today for evaluation of obstruction monitor for contrast nephropathy NS changed to 1/2NS due to hypernatremia
--- NOTE | 2017-04-27 14:32 | CP.PCM.PN ---
Subjective - Date & Time of Evaluation Date of Evaluation: 04/27/17 Time of Evaluation: 11:15 - Subjective Subjective: General Surgery Note for Dr. Mendez Patient seen and examined at bedside. She hjad 3 episodes of bilious vomiting overnight. Patient is s/p percutaneous tracheostomy and R IJ permacath placement POD#2. She is on vent support. She is also being sedated. ROS unobtainable. Urine output was 1105/24 hrs. Masha drain output was 80 cc/24hrs. Objective - Vital Signs/Intake and Output Vital Signs (last 24 hours): Temp Pulse Resp BP Pulse Ox 98.9 F 105 H 19 118/77 99 04/27/17 12:00 04/27/17 13:03 04/27/17 13:03 04/27/17 13:03 04/27/17 13:03 Intake and Output: 04/27/17 04/27/17 06:59 18:59 Intake Total 1670.4 909.4 Output Total 130 490 Balance 1540.4 419.4 - Medications Medications: Current Medications Acetaminophen (Tylenol 650 Mg Supp) 650 mg [place] Q4 PRN PRN Reason: Fever >100.4 F Last Admin: 04/26/17 20:06 Dose: 650 mg Albuterol/Ipratropium (Duoneb 3 Mg/0.5 Mg (3 Ml) Ud) 3 ml INH RQ6 [facility] Last Admin: 04/27/17 13:04 Dose: 3 ml Ascorbic Acid (Vitamin C 500 Mg Tab) 500 mg PO DAILY [facility] Last Admin: 04/27/17 09:52 Dose: 500 mg Calcium Acetate (Phoslo) 667 mg PO BIDCC [facility] Last Admin: 04/27/17 08:25 Dose: 667 mg Hydromorphone HCl (Dilaudid) 1 mg IVP Q3 PRN PRN Reason: Pain, severe (8-10) Last Admin: 04/25/17 16:49 Dose: 1 mg Vasopressin 40 units/ Sodium (Chloride) 40 mls @ 0.6 mls/hr IV .Q24H PRN; Protocol; 0.01 UNITS/MIN PRN Reason: TITRATE PER PROTOCOL Last Titration: 04/22/17 00:39 Dose: 0 units/min, 0 mls/hr Dexmedetomidine HCl 400 mcg/ (Sodium Chloride) 100 mls @ 3.4 mls/hr IV TITR PRN ; Protocol; 0.2 MCG/KG/HR PRN Reason: Agitation Last Admin: 04/27/17 07:25 Dose: 0.83 mcg/kg/hr, 14.11 mls/hr Cefepime HCl (Maxipime Iv 1 Gm Premix) 1 gm in 50 mls @ 100 mls/hr IVPB Q24H [facility] Last Admin: 04/26/17 18:29 Dose: 100 mls/hr Vancomycin HCl 500 mg/ Sodium (Chloride) 100 mls @ 100 mls/hr IVPB MWF [facility] Last Admin: 04/27/17 08:25 Dose: 100 mls/hr Metronidazole (Flagyl) 500 mg in 100 mls @ 100 mls/hr IVPB Q8 [facility] Last Admin: 04/27/17 14:07 Dose: 100 mls/hr Fluconazole (Diflucan Iv 200 Mg/100 Ml Ns) 100 mls @ 100 mls/hr IVPB DAILY [facility] Sodium Chloride (Sodium Chloride 0.45%) 1,000 mls @ 100 mls/hr IV .Q10H [facility] Last Admin: 04/27/17 14:08 Dose: 100 mls/hr Levetiracetam (Keppra) 250 mg PO BID [facility] Last Admin: 04/27/17 09:52 Dose: 250 mg Lorazepam (Ativan) 0.5 mg IVP Q3H PRN PRN Reason: Anxiety Last Admin: 04/26/17 23:07 Dose: 0.5 mg Lorazepam (Ativan) 2 mg IVP Q4H PRN PRN Reason: Seizure activity Last Admin: 04/26/17 06:07 Dose: 2 mg Metoprolol Tartrate (Lopressor) 12.5 mg PO BID [facility] Last Admin: 04/27/17 09:52 Dose: 12.5 mg Morphine Sulfate (Morphine) 2 mg IV Q6 PRN PRN Reason: Pain, severe (8-10) Last Admin: 04/27/17 06:04 Dose: 2 mg Ondansetron HCl (Zofran Inj) 4 mg IVP Q6H PRN PRN Reason: Nausea/Vomiting Last Admin: 04/27/17 03:47 Dose: 4 mg Pantoprazole Sodium (Protonix Inj) 20 mg IVP BID [facility] Last Admin: 04/27/17 09:51 Dose: 20 mg Saccharomyces Boulardii (Florastor) 250 mg PO BID [facility] Last Admin: 04/27/17 09:52 Dose: 250 mg Thiamine HCl (Vitamin B1 Tab) 100 mg PO DAILY [facility] Last Admin: 04/27/17 09:52 Dose: 100 mg - Labs Labs: 04/27/17 06:27 04/27/17 06:30 PT 14.0 SECONDS (9.7-12.2) H 04/25/17 06:25 INR 1.2 04/25/17 06:25 APTT 32 SECONDS (21-34) 04/25/17 06:25 - Constitutional Appears: No Acute Distress - Neck Exam Additional comments: s/p tracheostomy - Respiratory Exam Additional comments: on vent support - Cardiovascular Exam Cardiovascular Exam: Tachycardia - GI/Abdominal Exam GI & Abdominal Exam: Soft. absent: Distended, Firm, Rigid, Rebound Additional comments: midline incision clean, dry, and intact Jejunostomy tube in place and functioining properly - stoma pink and patent masha drain in place with serosanginous output - Extremities Exam Extremities Exam: Normal Capillary Refill - Neurological Exam Neurological Exam: Altered - Psychiatric Exam Psychiatric exam: Flat Affect - Skin Skin Exam: Dry, Warm Assessment and Plan - Assessment and Plan (Free Text) Plan: 36 F s/p ex lap with gastrojejunostomy with jejunostomy tube placement POD#9, s/ p percutaneous tracheostomy and R IJ permacath placement POD#2 -NPO -Tube feeds -Strict I's & O's -Analgesics PRN -Trach sutures to be removed on POD#10 (05/05) -DVT/GI ppx -Management as per ICU -Discussed with Dr. Andrea Wells PGY1
[2017-04-27 15:25] LABS: OSMOLALITY,URINE 417 mosm/kg (300-1000)
[2017-04-27] MEDS ORDERED: Iodixanol 320 MG/ML 100 ML BOTTLE IV ONE (16:38)
--- NOTE | 2017-04-27 17:48 | CT ---
PROCEDURE: CT Abdomen and Pelvis with contrast HISTORY: fevers s/p jejunostomy, gastric bypass COMPARISON: None. TECHNIQUE: Contrast dose: 100 mL Visipaque 320 Radiation dose: Total exam DLP = 728.72 mGy-cm. This CT exam was performed using one or more of the following dose reduction techniques: Automated exposure control, adjustment of the mA and/or kV according to patient size, and/or use of iterative reconstruction technique. FINDINGS: LOWER THORAX: Bilateral lower lobe infiltrates. Trace bilateral pleural effusion. LIVER: Unremarkable. No gross lesion or ductal dilatation. GALLBLADDER AND BILE DUCTS: Unremarkable. PANCREAS: Unremarkable. No gross lesion or ductal dilatation. SPLEEN: Unremarkable. ADRENALS: Unremarkable. No mass. KIDNEYS AND URETERS: Unremarkable. No hydronephrosis. No solid mass. VASCULATURE: Unremarkable. No aortic aneurysm. BOWEL: Status post partial gastrectomy. Anastomotic sutures are evident. A jejunostomy tube is noted in the right lower quadrant. There is questionable mural thickening of the cecum, versus inadequate mixing of contrast material with luminal contents. The examination was performed at approximately the time of entry of contrast material from the distal ileum into the cecum and this finding is of questionable significance. However, cannot rule out a focal inflammatory process. No pericolonic inflammatory change noted. No bowel obstruction. APPENDIX: Not identified. PERITONEUM: Trace ascites. Anterior midline surgical wound with zoraida. Surgical drain in left lower quadrant. LYMPH NODES: Unremarkable. No enlarged lymph nodes. BLADDER: Tovar catheter. Air within the urinary bladder likely due to catheterization. No mural thickening. REPRODUCTIVE: Unremarkable uterus. BONES: No acute fracture. OTHER FINDINGS: None. IMPRESSION: Questionable mural thickening of the cecum versus inadequate mixing of oral contrast material at the interface between oral contrast and residual bowel content. Status post partial gastrectomy. Jejunostomy tube. Surgical drain. Trace ascites. Bilateral lower lobe pulmonary infiltrates. Trace bilateral pleural effusion.
[2017-04-27] MEDS: Cefepime IV 1 gm in Dextrose 1 GM/50 ML BAG IVPB SCH (19:35)
[2017-04-28] MEDS: Sodium Chloride 0.45% 1,000 ML IV SCH ×5 (01:31→19:58)
[2017-04-28 06:43] LABS: HEMOGLOBIN 7.3 g/dL (11.0-16.0); MEAN CELL VOLUME 87.7 fL (81.0-99.0); MEAN CORPUSCULAR HEMOGLOBIN 29.2 pg (27.0-31.0); MEAN CORPUSCULAR HGB CONC 33.3 g/dL (33.0-37.0); MEAN PLATELET VOLUME 9.3 fL (7.2-11.7); RBC 2.5 Mil/uL (3.80-5.20); RED CELL DISTRIBUTION WIDTH 15.3 % (11.5-14.5); WHITE BLOOD COUNT 15.6 K/uL (4.8-10.8)
[2017-04-28 07:15] LABS: ALB/GLOB RATIO 0.9 (1.0-2.1); ALBUMIN 2.8 g/dL (3.5-5.0); CALCIUM 8.6 mg/dl (8.6-10.4)
[2017-04-28] MEDS: Dexmedetomidine Hydrochloride 400 MCG in Sodium Chloride 0.9% 96 ML IV PRN ×3 (07:15→23:06)
--- NOTE | 2017-04-28 09:46 | CP.PCM.PN ---
Subjective - Date & Time of Evaluation Date of Evaluation: 04/28/17 Time of Evaluation: 09:43 - Subjective Subjective: s/p trach; on vent Alert; J tube feeds on hold due to vomiting Good UO- 2000ml/ 24 hrs; JIMBO improving No dialysis last 5 days creat decreased to 2 Hypernatremia improving with hyponatremic fluid rehydration Metabolic acidosis compensated Objective - Vital Signs/Intake and Output Vital Signs (last 24 hours): Temp Pulse Resp BP Pulse Ox 99.7 F H 89 18 106/67 97 04/28/17 04:00 04/28/17 07:04 04/28/17 07:04 04/28/17 07:04 04/28/17 07:04 Intake and Output: 04/28/17 04/28/17 06:59 18:59 Intake Total 1520.4 114.2 Output Total 1155 75 Balance 365.4 39.2 - Medications Medications: Current Medications Acetaminophen (Tylenol 650 Mg Supp) 650 mg [place] Q4 PRN PRN Reason: Fever >100.4 F Last Admin: 04/26/17 20:06 Dose: 650 mg Ascorbic Acid (Vitamin C 500 Mg Tab) 500 mg PO DAILY [facility] Last Admin: 04/27/17 09:52 Dose: 500 mg Calcium Acetate (Phoslo) 667 mg PO BIDCC [facility] Last Admin: 04/28/17 07:35 Dose: 667 mg Dexmedetomidine HCl 400 mcg/ (Sodium Chloride) 100 mls @ 3.4 mls/hr IV TITR PRN ; Protocol; 0.2 MCG/KG/HR PRN Reason: Agitation Last Admin: 04/28/17 07:15 Dose: 0.83 mcg/kg/hr, 14.11 mls/hr Cefepime HCl (Maxipime Iv 1 Gm Premix) 1 gm in 50 mls @ 100 mls/hr IVPB Q24H [facility] Last Admin: 04/27/17 19:35 Dose: 100 mls/hr Vancomycin HCl 500 mg/ Sodium (Chloride) 100 mls @ 100 mls/hr IVPB MWF [facility] Last Admin: 04/27/17 08:25 Dose: 100 mls/hr Fluconazole (Diflucan Iv 200 Mg/100 Ml Ns) 100 mls @ 100 mls/hr IVPB DAILY [facility] Sodium Chloride (Sodium Chloride 0.45%) 1,000 mls @ 100 mls/hr IV .Q10H [facility] Last Admin: 04/28/17 03:31 Dose: 100 mls/hr Levetiracetam (Keppra) 250 mg PO BID [facility] Last Admin: 04/27/17 19:35 Dose: 250 mg Lorazepam (Ativan) 0.5 mg IVP Q3H PRN PRN Reason: Anxiety Last Admin: 04/26/17 23:07 Dose: 0.5 mg Metoprolol Tartrate (Lopressor) 12.5 mg PO BID [facility] Last Admin: 04/27/17 17:38 Dose: 12.5 mg Metronidazole (Flagyl) 500 mg JT Q8 [facility] Last Admin: 04/28/17 05:44 Dose: 500 mg Morphine Sulfate (Morphine) 2 mg IV Q6 PRN PRN Reason: Pain, severe (8-10) Last Admin: 04/28/17 00:50 Dose: 2 mg Ondansetron HCl (Zofran Inj) 4 mg IVP Q6H PRN PRN Reason: Nausea/Vomiting Last Admin: 04/27/17 03:47 Dose: 4 mg Pantoprazole Sodium (Protonix Inj) 20 mg IVP BID [facility] Last Admin: 04/27/17 17:37 Dose: 20 mg Saccharomyces Boulardii (Florastor) 250 mg PO BID [facility] Last Admin: 04/27/17 17:38 Dose: 250 mg Thiamine HCl (Vitamin B1 Tab) 100 mg PO DAILY [facility] Last Admin: 04/27/17 09:52 Dose: 100 mg - Labs Labs: 04/28/17 06:36 04/28/17 06:36 PT 14.0 SECONDS (9.7-12.2) H 04/25/17 06:25 INR 1.2 04/25/17 06:25 APTT 32 SECONDS (21-34) 04/25/17 06:25 - Constitutional Appears: Confused, Chronically Ill - Head Exam Head Exam: ATRAUMATIC, NORMAL INSPECTION - Eye Exam Eye Exam: EOMI, Normal appearance - Neck Exam Neck Exam: Normal Inspection. absent: Tenderness - Respiratory Exam Respiratory Exam: Clear to Ausculation Bilateral, Respiratory Distress - Cardiovascular Exam Cardiovascular Exam: REGULAR RHYTHM, +S1 - GI/Abdominal Exam GI & Abdominal Exam: Soft. absent: Tenderness - Neurological Exam Neurological Exam: Awake, CN II-XII Intact - Skin Skin Exam: Dry, Warm Assessment and Plan (1) JIMBO (acute kidney injury) Status: Resolved (2) Acute pancreatitis Status: Acute (3) SBO (small bowel obstruction) Status: Acute (4) Schizophrenia Status: Acute - Assessment and Plan (Free Text) Plan: Continue same 1/2NS fluids follow up chemistries closely dialysis on hold
[2017-04-28] MEDS: Saccharomyces Boulardi 250 mg Cap PO SCH ×2 (10:13→17:48)
[2017-04-28] MEDS: Fluconazole IV 200mg/100 ml NS 100 ML IVPB SCH (10:13)
[2017-04-28] MEDS ORDERED: Acetaminophen 160 mg/5 ml UD PO ONE (11:00)
--- NOTE | 2017-04-28 11:38 | CP.PCM.PN ---
Subjective - Date & Time of Evaluation Date of Evaluation: 04/28/17 Time of Evaluation: 11:35 - Subjective Subjective: Ms. Rivera was seen and examined at the bedside. She is awake with no verbal response. She has trach connected to mechanical ventilator on a CPAP mode. She remains on Precedex drip for mild sedation. She is unable to follow simple commands, but the patient is febrile at this time, temp-100. Acetaminophen was given by the staff and currently on antibiotic therapy. She is up in a chair with minimal restlessness in comparison from previous examination. Objective - Vital Signs/Intake and Output Vital Signs (last 24 hours): Temp Pulse Resp BP Pulse Ox 101.1 F H 97 H 19 112/75 98 04/28/17 11:00 04/28/17 11:00 04/28/17 11:00 04/28/17 11:00 04/28/17 11:00 Intake and Output: 04/28/17 04/28/17 06:59 18:59 Intake Total 1520.4 751.0 Output Total 1155 500 Balance 365.4 251.0 - Medications Medications: Current Medications Acetaminophen (Tylenol 650 Mg Supp) 650 mg [place] Q4 PRN PRN Reason: Fever >100.4 F Last Admin: 04/26/17 20:06 Dose: 650 mg Ascorbic Acid (Vitamin C 500 Mg Tab) 500 mg PO DAILY [facility] Last Admin: 04/28/17 10:12 Dose: 500 mg Calcium Acetate (Phoslo) 667 mg PO BIDCC [facility] Last Admin: 04/28/17 07:35 Dose: 667 mg Dexmedetomidine HCl 400 mcg/ (Sodium Chloride) 100 mls @ 3.4 mls/hr IV TITR PRN ; Protocol; 0.2 MCG/KG/HR PRN Reason: Agitation Last Admin: 04/28/17 07:15 Dose: 0.83 mcg/kg/hr, 14.11 mls/hr Cefepime HCl (Maxipime Iv 1 Gm Premix) 1 gm in 50 mls @ 100 mls/hr IVPB Q24H [facility] Last Admin: 04/27/17 19:35 Dose: 100 mls/hr Vancomycin HCl 500 mg/ Sodium (Chloride) 100 mls @ 100 mls/hr IVPB MWF [facility] Last Admin: 04/27/17 08:25 Dose: 100 mls/hr Fluconazole (Diflucan Iv 200 Mg/100 Ml Ns) 100 mls @ 100 mls/hr IVPB DAILY [facility] Last Admin: 04/28/17 10:13 Dose: 100 mls/hr Sodium Chloride (Sodium Chloride 0.45%) 1,000 mls @ 100 mls/hr IV .Q10H [facility] Last Admin: 04/28/17 09:45 Dose: Not Given Levetiracetam (Keppra) 250 mg PO BID [facility] Last Admin: 04/28/17 10:12 Dose: 250 mg Lorazepam (Ativan) 0.5 mg IVP Q3H PRN PRN Reason: Anxiety Last Admin: 04/26/17 23:07 Dose: 0.5 mg Metoprolol Tartrate (Lopressor) 12.5 mg PO BID [facility] Last Admin: 04/28/17 10:12 Dose: 12.5 mg Metronidazole (Flagyl) 500 mg JT Q8 [facility] Last Admin: 04/28/17 05:44 Dose: 500 mg Morphine Sulfate (Morphine) 2 mg IV Q6 PRN PRN Reason: Pain, severe (8-10) Last Admin: 04/28/17 00:50 Dose: 2 mg Ondansetron HCl (Zofran Inj) 4 mg IVP Q6H PRN PRN Reason: Nausea/Vomiting Last Admin: 04/27/17 03:47 Dose: 4 mg Pantoprazole Sodium (Protonix Inj) 20 mg IVP BID [facility] Last Admin: 04/28/17 10:12 Dose: 20 mg Saccharomyces Boulardii (Florastor) 250 mg PO BID [facility] Last Admin: 04/28/17 10:13 Dose: 250 mg Thiamine HCl (Vitamin B1 Tab) 100 mg PO DAILY [facility] Last Admin: 04/28/17 10:12 Dose: 100 mg - Labs Labs: 04/28/17 06:36 04/28/17 06:36 PT 14.0 SECONDS (9.7-12.2) H 04/25/17 06:25 INR 1.2 04/25/17 06:25 APTT 32 SECONDS (21-34) 04/25/17 06:25 - Constitutional Appears: No Acute Distress - Head Exam Head Exam: NORMAL INSPECTION - Neurological Exam Neurological Exam: Awake Neuro motor strength exam: Left Upper Extremity: 4, Right Upper Extremity: 4, Left Lower Extremity: 4, Right Lower Extremity: 4 Additional comments: Neurological unchanged from previous examination. Assessment and Plan (1) Focal seizure Assessment & Plan: Case discussed with Dr. Bryant, continue all current medical, physical, and occupational therapies. There is no new recommendation from neurology. Status: Acute
--- NOTE | 2017-04-28 11:49 | CP.PCM.PN ---
Subjective - Date & Time of Evaluation Date of Evaluation: 04/28/17 Time of Evaluation: 07:15 - Subjective Subjective: General Surgery Pt S&E, NAEO. OOB to chair. appears to be in no distress. Objective - Vital Signs/Intake and Output Vital Signs (last 24 hours): Temp Pulse Resp BP Pulse Ox 101.1 F H 97 H 19 112/75 98 04/28/17 11:00 04/28/17 11:00 04/28/17 11:00 04/28/17 11:00 04/28/17 11:00 Intake and Output: 04/28/17 04/28/17 06:59 18:59 Intake Total 1520.4 751.0 Output Total 1155 500 Balance 365.4 251.0 - Medications Medications: Current Medications Acetaminophen (Tylenol 650 Mg Supp) 650 mg [place] Q4 PRN PRN Reason: Fever >100.4 F Last Admin: 04/26/17 20:06 Dose: 650 mg Ascorbic Acid (Vitamin C 500 Mg Tab) 500 mg PO DAILY [facility] Last Admin: 04/28/17 10:12 Dose: 500 mg Calcium Acetate (Phoslo) 667 mg PO BIDCC [facility] Last Admin: 04/28/17 07:35 Dose: 667 mg Dexmedetomidine HCl 400 mcg/ (Sodium Chloride) 100 mls @ 3.4 mls/hr IV TITR PRN ; Protocol; 0.2 MCG/KG/HR PRN Reason: Agitation Last Admin: 04/28/17 07:15 Dose: 0.83 mcg/kg/hr, 14.11 mls/hr Cefepime HCl (Maxipime Iv 1 Gm Premix) 1 gm in 50 mls @ 100 mls/hr IVPB Q24H [facility] Last Admin: 04/27/17 19:35 Dose: 100 mls/hr Vancomycin HCl 500 mg/ Sodium (Chloride) 100 mls @ 100 mls/hr IVPB MWF [facility] Last Admin: 04/27/17 08:25 Dose: 100 mls/hr Fluconazole (Diflucan Iv 200 Mg/100 Ml Ns) 100 mls @ 100 mls/hr IVPB DAILY [facility] Last Admin: 04/28/17 10:13 Dose: 100 mls/hr Sodium Chloride (Sodium Chloride 0.45%) 1,000 mls @ 100 mls/hr IV .Q10H [facility] Last Admin: 04/28/17 09:45 Dose: Not Given Levetiracetam (Keppra) 250 mg PO BID [facility] Last Admin: 04/28/17 10:12 Dose: 250 mg Lorazepam (Ativan) 0.5 mg IVP Q3H PRN PRN Reason: Anxiety Last Admin: 04/26/17 23:07 Dose: 0.5 mg Metoprolol Tartrate (Lopressor) 12.5 mg PO BID [facility] Last Admin: 04/28/17 10:12 Dose: 12.5 mg Metronidazole (Flagyl) 500 mg JT Q8 [facility] Last Admin: 04/28/17 05:44 Dose: 500 mg Morphine Sulfate (Morphine) 2 mg IV Q6 PRN PRN Reason: Pain, severe (8-10) Last Admin: 04/28/17 00:50 Dose: 2 mg Ondansetron HCl (Zofran Inj) 4 mg IVP Q6H PRN PRN Reason: Nausea/Vomiting Last Admin: 04/27/17 03:47 Dose: 4 mg Pantoprazole Sodium (Protonix Inj) 20 mg IVP BID [facility] Last Admin: 04/28/17 10:12 Dose: 20 mg Saccharomyces Boulardii (Florastor) 250 mg PO BID [facility] Last Admin: 04/28/17 10:13 Dose: 250 mg Thiamine HCl (Vitamin B1 Tab) 100 mg PO DAILY [facility] Last Admin: 04/28/17 10:12 Dose: 100 mg - Labs Labs: 04/28/17 06:36 04/28/17 06:36 PT 14.0 SECONDS (9.7-12.2) H 04/25/17 06:25 INR 1.2 04/25/17 06:25 APTT 32 SECONDS (21-34) 04/25/17 06:25 - Constitutional Appears: Non-toxic, No Acute Distress - Head Exam Head Exam: ATRAUMATIC, NORMOCEPHALIC - Respiratory Exam Respiratory Exam: NORMAL BREATHING PATTERN (on trach vent). absent: Respiratory Distress - GI/Abdominal Exam GI & Abdominal Exam: Soft. absent: Distended, Firm, Guarding, Rigid Additional comments: dressings C/D/I feeding jejunostomy in place, pink, viable - Skin Skin Exam: Dry, Warm Assessment and Plan - Assessment and Plan (Free Text) Assessment: 36 F s/p ex lap with gastrojejunostomy with jejunostomy tube placement POD#10, s /p percutaneous tracheostomy and R IJ permacath placement POD#3 Plan: Restart tube feeds Nephro to determine when to remove claros. Will remove trach sutures today or tomorrow. Med management per ICU D/W Dr. Andrea Seay PGY4
--- NOTE | 2017-04-28 12:17 | CP.CCUPN ---
<LeroytieraBipin torres - Last Filed: 04/28/17 12:14> CCU Subjective - Physician Review Subjective (Free Text): 04/27/17 10:38 Patient continues to vomit Tube feeds stopped Surgery notified Will obtain CT abd/pelvis IV/PO contrast 04/28/17 12:14 Patient seen and examined at bedside CT unremarkable fever 101 today tolerating trach collar OOB to chair resume tube feeds family at bedside CCU Objective - Vital Signs / Intake & Output Vital Signs (Last 4 hours): Vital Signs Temp Pulse Resp BP Pulse Ox 04/28/17 12:00 101.1 F H 81 21 121/83 96 04/28/17 11:00 101.1 F H 94 H 24 112/75 100 04/28/17 10:03 94 H 14 112/75 98 04/28/17 10:00 100 H 19 92 L 04/28/17 09:03 91 H 34 H 109/76 96 04/28/17 09:00 97 H 11 L 97 Intake and Output (Last 8hrs): Intake & Output 04/27/17 04/28/17 04/28/17 22:59 06:59 14:59 Intake Total 1783.6 1113.6 875.2 Output Total 910 755 550 Balance 873.6 358.6 325.2 Weight 141 lb Intake: IV 200 Intake, IV Amount 863.6 913.6 685.2 Left PICC 113.6 113.6 85.2 Left PICC #2 750 800 600 Tube Feeding 20 Other 920 170 Output: Drainage 75 80 Left Lower Abdomen 40 40 Right Lower Abdomen 35 40 Urine 835 675 550 Urethral (Tovar) 835 675 550 Stool 0 - Physical Exam Head: Positive for: Atraumatic, Normocephalic. Negative for: Tenderness Pupils: Positive for: PERRL Extroacular Muscles: Positive for: EOMI Mouth: Positive for: Moist Mucous Membranes. Negative for: Dry, Drooling Nose (External): Positive for: Other (NGT in place) Nose (Internal): Positive for: Normal Inspection, Moist Neck: Positive for: Normal Range of Motion. Negative for: JVD, Lymphadenopathy Respiratory/Chest: Positive for: Clear to Auscultation. Negative for: Respiratory Distress, Accessory Muscle Use Cardiovascular: Positive for: Regular Rate and Rhythm, Normal S1, S2 Abdomen: Positive for: Tenderness (mild tenderness of palpation. patient continues to move her arms towards hands on palpation). Negative for: Distention, Guarding Upper Extremity: Positive for: Normal Inspection, Normal ROM, Capillary Refill < 2s. Negative for: Edema Lower Extremity: Positive for: Normal Inspection. Negative for: Edema Neurological: Positive for: CN II-XII Intact Skin: Positive for: Warm, Pale Psychiatric: Positive for: Alert - Medications Active Medications: Active Medications Generic Name Dose Route Start Last Admin Trade Name Freq PRN Reason Stop Dose Admin Acetaminophen 650 mg 04/20/17 10:17 04/26/17 20:06 Tylenol 650 Mg Supp NH 650 mg Q4 PRN Administration Fever >100.4 F Ascorbic Acid 500 mg 04/08/17 12:30 04/28/17 10:12 Vitamin C 500 Mg Tab PO 500 mg DAILY AGUSTIN Administration Calcium Acetate 667 mg 04/23/17 17:00 04/28/17 07:35 Phoslo PO 667 mg BIDCC AGUSTIN Administration Dexmedetomidine HCl 400 mcg/ 100 mls @ 3.4 mls/hr 04/21/17 16:30 04/28/17 07: 15 Sodium Chloride IV 0.83 mcg/kg/hr TITR PRN 14.11 mls/hr Agitation Administration Protocol 0.2 MCG/KG/HR Cefepime HCl 1 gm in 50 mls @ 100 mls/hr 04/21/17 19:30 04/27/17 19:35 Maxipime Iv 1 Gm Premix IVPB 100 mls/hr Q24H AGUSTIN Administration Vancomycin HCl 500 mg/ Sodium 100 mls @ 100 mls/hr 04/22/17 09:00 04/27/17 08 :25 Chloride IVPB 100 mls/hr MWF AGUSTIN Administration Fluconazole 100 mls @ 100 mls/hr 04/28/17 10:00 04/28/17 10:13 Diflucan Iv 200 Mg/100 Ml Ns IVPB 100 mls/hr DAILY AGUSTIN Administration Sodium Chloride 1,000 mls @ 100 mls/hr 04/27/17 13:45 04/28/17 09:45 Sodium Chloride 0.45% IV Not Given .Q10H AGUSTIN Levetiracetam 250 mg 04/23/17 18:00 04/28/17 10:12 Keppra PO 250 mg BID AGUSTIN Administration Lorazepam 0.5 mg 04/01/17 16:08 04/26/17 23:07 Ativan IVP 0.5 mg Q3H PRN Administration Anxiety Metoprolol Tartrate 12.5 mg 04/26/17 18:00 04/28/17 10:12 Lopressor PO 12.5 mg BID AGUSTIN Administration Metronidazole 500 mg 04/27/17 22:00 04/28/17 05:44 Flagyl JT 500 mg Q8 AGUSTIN Administration Morphine Sulfate 2 mg 04/25/17 16:07 04/28/17 00:50 Morphine IV 2 mg Q6 PRN Administration Pain, severe (8-10) Ondansetron HCl 4 mg 03/27/17 23:45 04/27/17 03:47 Zofran Inj IVP 4 mg Q6H PRN Administration Nausea/Vomiting Pantoprazole Sodium 20 mg 04/19/17 18:00 04/28/17 10:12 Protonix Inj IVP 20 mg BID AGUSTIN Administration Saccharomyces Boulardii 250 mg 04/08/17 18:00 04/28/17 10:13 Florastor PO 250 mg BID AGUSTIN Administration Thiamine HCl 100 mg 04/08/17 12:30 04/28/17 10:12 Vitamin B1 Tab PO 100 mg DAILY AGUSTIN Administration - Patient Studies Lab Studies: Microbiology Studies 04/24/17 13:00 Blood Culture - Preliminary Blood NO GROWTH AFTER 3 DAYS 04/24/17 12:45 Blood Culture - Preliminary Blood NO GROWTH AFTER 3 DAYS 04/18/17 07:27 Blood Fungal Culture - Preliminary Other: Please Indicate Lab Studies 04/28/17 04/28/17 04/28/17 Range/Units 11:23 06:36 06:36 WBC 15.6 H (4.8-10.8) K/uL RBC 2.50 L (3.80-5.20) Mil/uL Hgb 7.3 L (11.0-16.0) g/dL Hct 21.9 L (34.0-47.0) % MCV 87.7 (81.0-99.0) fL MCH 29.2 (27.0-31.0) pg MCHC 33.3 (33.0-37.0) g/dL RDW 15.3 H (11.5-14.5) % Plt Count 354 (130-400) K/uL MPV 9.3 (7.2-11.7) fL Sodium 148 (132-148) mmol/L Potassium 3.8 (3.6-5.2) mmol/L Chloride 117 H (98-107) mmol/L Carbon Dioxide 18 L (22-30) mmol/L Anion Gap 18 (10-20) BUN 34 H (7-17) mg/dL Creatinine 2.0 H (0.7-1.2) mg/dL Est GFR ( Amer) 35 Est GFR (Non-Af Amer) 29 POC Glucose (mg/dL) 93 (65-110) mg/dL Random Glucose 85 (65-105) mg/dL Serum Osmolality (272-300) mosm/kg Calcium 8.6 (8.6-10.4) mg/dl Phosphorus 3.8 (2.5-4.5) mg/dL Magnesium 1.7 (1.6-2.3) mg/dL Total Bilirubin 0.6 (0.2-1.3) mg/dL AST 24 (14-36) U/L ALT 27 (9-52) U/L Alkaline Phosphatase 147 H D (38-126) U/L Total Protein 5.9 L (6.3-8.3) g/dL Albumin 2.8 L (3.5-5.0) g/dL Globulin 3.1 (2.2-3.9) gm/dL Albumin/Globulin Ratio 0.9 L (1.0-2.1) Urine Osmolality (300-1000) mosm/kg Ur Random Sodium mmol/L 04/28/17 04/28/17 04/27/17 Range/Units 05:39 00:37 17:56 WBC (4.8-10.8) K/uL RBC (3.80-5.20) Mil/uL Hgb (11.0-16.0) g/dL Hct (34.0-47.0) % MCV (81.0-99.0) fL MCH (27.0-31.0) pg MCHC (33.0-37.0) g/dL RDW (11.5-14.5) % Plt Count (130-400) K/uL MPV (7.2-11.7) fL Sodium (132-148) mmol/L Potassium (3.6-5.2) mmol/L Chloride (98-107) mmol/L Carbon Dioxide (22-30) mmol/L Anion Gap (10-20) BUN (7-17) mg/dL Creatinine (0.7-1.2) mg/dL Est GFR ( Amer) Est GFR (Non-Af Amer) POC Glucose (mg/dL) 88 100 98 (65-110) mg/dL Random Glucose (65-105) mg/dL Serum Osmolality (272-300) mosm/kg Calcium (8.6-10.4) mg/dl Phosphorus (2.5-4.5) mg/dL Magnesium (1.6-2.3) mg/dL Total Bilirubin (0.2-1.3) mg/dL AST (14-36) U/L ALT (9-52) U/L Alkaline Phosphatase (38-126) U/L Total Protein (6.3-8.3) g/dL Albumin (3.5-5.0) g/dL Globulin (2.2-3.9) gm/dL Albumin/Globulin Ratio (1.0-2.1) Urine Osmolality (300-1000) mosm/kg Ur Random Sodium mmol/L 04/27/17 04/27/17 Range/Units 14:40 14:40 WBC (4.8-10.8) K/uL RBC (3.80-5.20) Mil/uL Hgb (11.0-16.0) g/dL Hct (34.0-47.0) % MCV (81.0-99.0) fL MCH (27.0-31.0) pg MCHC (33.0-37.0) g/dL RDW (11.5-14.5) % Plt Count (130-400) K/uL MPV (7.2-11.7) fL Sodium (132-148) mmol/L Potassium (3.6-5.2) mmol/L Chloride (98-107) mmol/L Carbon Dioxide (22-30) mmol/L Anion Gap (10-20) BUN (7-17) mg/dL Creatinine (0.7-1.2) mg/dL Est GFR ( Amer) Est GFR (Non-Af Amer) POC Glucose (mg/dL) (65-110) mg/dL Random Glucose (65-105) mg/dL Serum Osmolality 322 H (272-300) mosm/kg Calcium (8.6-10.4) mg/dl Phosphorus (2.5-4.5) mg/dL Magnesium (1.6-2.3) mg/dL Total Bilirubin (0.2-1.3) mg/dL AST (14-36) U/L ALT (9-52) U/L Alkaline Phosphatase (38-126) U/L Total Protein (6.3-8.3) g/dL Albumin (3.5-5.0) g/dL Globulin (2.2-3.9) gm/dL Albumin/Globulin Ratio (1.0-2.1) Urine Osmolality 417 (300-1000) mosm/kg Ur Random Sodium 92 mmol/L Laboratory Results - last 24 hr 04/27/17 04/27/17 04/27/17 14:40 14:40 17:56 WBC RBC Hgb Hct MCV MCH MCHC RDW Plt Count MPV Sodium Potassium Chloride Carbon Dioxide Anion Gap BUN Creatinine Est GFR ( Amer) Est GFR (Non-Af Amer) POC Glucose (mg/dL) 98 Random Glucose Serum Osmolality 322 H Calcium Phosphorus Magnesium Total Bilirubin AST ALT Alkaline Phosphatase Total Protein Albumin Globulin Albumin/Globulin Ratio Urine Osmolality 417 Ur Random Sodium 92 04/28/17 04/28/17 04/28/17 00:37 05:39 06:36 WBC RBC Hgb Hct MCV MCH MCHC RDW Plt Count MPV Sodium 148 Potassium 3.8 Chloride 117 H Carbon Dioxide 18 L Anion Gap 18 BUN 34 H Creatinine 2.0 H Est GFR ( Amer) 35 Est GFR (Non-Af Amer) 29 POC Glucose (mg/dL) 100 88 Random Glucose 85 Serum Osmolality Calcium 8.6 Phosphorus 3.8 Magnesium 1.7 Total Bilirubin 0.6 AST 24 ALT 27 Alkaline Phosphatase 147 H D Total Protein 5.9 L Albumin 2.8 L Globulin 3.1 Albumin/Globulin Ratio 0.9 L Urine Osmolality Ur Random Sodium 04/28/17 04/28/17 06:36 11:23 WBC 15.6 H RBC 2.50 L Hgb 7.3 L Hct 21.9 L MCV 87.7 MCH 29.2 MCHC 33.3 RDW 15.3 H Plt Count 354 MPV 9.3 Sodium Potassium Chloride Carbon Dioxide Anion Gap BUN Creatinine Est GFR ( Amer) Est GFR (Non-Af Amer) POC Glucose (mg/dL) 93 Random Glucose Serum Osmolality Calcium Phosphorus Magnesium Total Bilirubin AST ALT Alkaline Phosphatase Total Protein Albumin Globulin Albumin/Globulin Ratio Urine Osmolality Ur Random Sodium Fingerstick Blood Sugar Results: 93 Assessment/Plan - Assessment and Plan (Free Text) Assessment: 36F w/gastrioparesis and GI bleed; s/p boby en Y bypass, J-tube POD 10 Plan: Neuro: * Neuro (Aureliano) * Hx Schizophrenia, mental retardation * Seizure activity 04/20 * Haloperidol 1 IV BID PRN * Keppra 250 PO BID * Ativan 0.5 IV Q3 PRN * Ativan 2 IV Q4 PRN Seizure * Precedex 400 @ 3.4 * Thiamine 100mg PO QD * Vit C 500mg PO QD Psych: * Psych (Ozden) * Quetiapine, Escitalopram - held Cardio: * Cards (Dex) * Tachy * lopressor 12.5 BID Pulm: * Intubated, trach, CPAP today, doing well * R. Lung pneumonia * Maxipime1 IV QD * Vanco 500 IV MWF * Flagyl 500 IV Q8 * Albuterol/Ipratropium 3cc INH RQ6H Endo: * 03/28 Hemoglobin A1c 5.3 GI: * S/P R-n-Y POD 9 * J tube Glucerna 1.5 @ 30 - tube feeds stopped due to patient vomiting, will order CT po/IV contrast * Dilaudid 1 IV Q3 PRN * Hal Drain * Zofran IV Q6 PRN Renal: * Permacath * HD on hold * making urine : * continues to make urine * Urine Culture - yeast * Diflucan 200 IV QD Heme: * Hx GI bleed * Hgb stable * S/p RnY MSK: * Prior to hospitalization could ambulate * PT/OT ID: * WBC downtrending * Maxipime1 IV QD * Diflucan 200 IV QD * Vanco 500 IV MWF * Flagyl 500 IV Q8 * F/U Blood cultures * PICC Line Prophylaxis: * Protonix Q12H * Zofran 4mg IV Q6H * Fluids: NS @ 100 <LadonnafKayden M - Last Filed: 04/28/17 18:52> CCU Objective - Vital Signs / Intake & Output Vital Signs (Last 4 hours): Vital Signs Temp Pulse Resp BP Pulse Ox 04/28/17 18:04 91 H 34 H 113/81 97 04/28/17 18:00 89 35 H 100 04/28/17 17:03 95 H 25 H 127/87 94 L 04/28/17 17:00 95 H 38 H 94 L 04/28/17 16:04 95 H 20 115/84 100 04/28/17 16:00 99.2 F 91 H 30 H 115/84 99 04/28/17 15:03 99 H 17 120/86 99 04/28/17 15:00 97 H 19 Intake and Output (Last 8hrs): Intake & Output 04/28/17 04/28/17 04/28/17 06:59 14:59 22:59 Intake Total 1113.6 1323.6 696.8 Output Total 755 650 335 Balance 358.6 673.6 361.8 Weight 141 lb Intake: IV 200 100 Intake, IV Amount 913.6 913.6 456.8 Left PICC 113.6 113.6 56.8 Left PICC #2 800 800 400 Tube Feeding 40 40 Other 270 200 Output: Drainage 80 Left Lower Abdomen 40 Right Lower Abdomen 40 Urine 675 650 335 Urethral (Tovar) 675 650 335 - Medications Active Medications: Active Medications Generic Name Dose Route Start Last Admin Trade Name Freq PRN Reason Stop Dose Admin Acetaminophen 650 mg 04/20/17 10:17 04/26/17 20:06 Tylenol 650 Mg Supp NH 650 mg Q4 PRN Administration Fever >100.4 F Ascorbic Acid 500 mg 04/08/17 12:30 04/28/17 10:12 Vitamin C 500 Mg Tab PO 500 mg DAILY AGUSTIN Administration Calcium Acetate 667 mg 04/23/17 17:00 04/28/17 16:39 Phoslo PO 667 mg BIDCC AGUSTIN Administration Dexmedetomidine HCl 400 mcg/ 100 mls @ 3.4 mls/hr 04/21/17 16:30 04/28/17 14: 47 Sodium Chloride IV 0.83 mcg/kg/hr TITR PRN 14.11 mls/hr Agitation Administration Protocol 0.2 MCG/KG/HR Cefepime HCl 1 gm in 50 mls @ 100 mls/hr 04/21/17 19:30 04/27/17 19:35 Maxipime Iv 1 Gm Premix IVPB 100 mls/hr Q24H AGUSTIN Administration Vancomycin HCl 500 mg/ Sodium 100 mls @ 100 mls/hr 04/22/17 09:00 04/27/17 08 :25 Chloride IVPB 100 mls/hr MWF AGUSTIN Administration Fluconazole 100 mls @ 100 mls/hr 04/28/17 10:00 04/28/17 10:13 Diflucan Iv 200 Mg/100 Ml Ns IVPB 100 mls/hr DAILY AGUSTIN Administration Sodium Chloride 1,000 mls @ 100 mls/hr 04/27/17 13:45 04/28/17 14:46 Sodium Chloride 0.45% IV 100 mls/hr .Q10H AGUSTIN Administration Levetiracetam 250 mg 04/23/17 18:00 04/28/17 17:49 Keppra PO 250 mg BID AGUSTIN Administration Metoprolol Tartrate 12.5 mg 04/26/17 18:00 04/28/17 17:48 Lopressor PO 12.5 mg BID AGUSTIN Administration Metronidazole 500 mg 04/27/17 22:00 04/28/17 14:09 Flagyl JT 500 mg Q8 AGUSTIN Administration Morphine Sulfate 2 mg 04/25/17 16:07 04/28/17 00:50 Morphine IV 2 mg Q6 PRN Administration Pain, severe (8-10) Ondansetron HCl 4 mg 03/27/17 23:45 04/27/17 03:47 Zofran Inj IVP 4 mg Q6H PRN Administration Nausea/Vomiting Pantoprazole Sodium 20 mg 04/19/17 18:00 04/28/17 17:48 Protonix Inj IVP 20 mg BID AGUSTIN Administration Saccharomyces Boulardii 250 mg 04/08/17 18:00 04/28/17 17:48 Florastor PO 250 mg BID AGUSTIN Administration Thiamine HCl 100 mg 04/08/17 12:30 04/28/17 10:12 Vitamin B1 Tab PO 100 mg DAILY AGUSTIN Administration - Patient Studies Lab Studies: Microbiology Studies 04/24/17 13:00 Blood Culture - Preliminary Blood NO GROWTH AFTER 4 DAYS 04/24/17 12:45 Blood Culture - Preliminary Blood NO GROWTH AFTER 4 DAYS Lab Studies 04/28/17 04/28/17 04/28/17 Range/Units 11:23 06:36 06:36 WBC 15.6 H (4.8-10.8) K/uL RBC 2.50 L (3.80-5.20) Mil/uL Hgb 7.3 L (11.0-16.0) g/dL Hct 21.9 L (34.0-47.0) % MCV 87.7 (81.0-99.0) fL MCH 29.2 (27.0-31.0) pg MCHC 33.3 (33.0-37.0) g/dL RDW 15.3 H (11.5-14.5) % Plt Count 354 (130-400) K/uL MPV 9.3 (7.2-11.7) fL Sodium 148 (132-148) mmol/L Potassium 3.8 (3.6-5.2) mmol/L Chloride 117 H (98-107) mmol/L Carbon Dioxide 18 L (22-30) mmol/L Anion Gap 18 (10-20) BUN 34 H (7-17) mg/dL Creatinine 2.0 H (0.7-1.2) mg/dL Est GFR ( Amer) 35 Est GFR (Non-Af Amer) 29 POC Glucose (mg/dL) 93 (65-110) mg/dL Random Glucose 85 (65-105) mg/dL Calcium 8.6 (8.6-10.4) mg/dl Phosphorus 3.8 (2.5-4.5) mg/dL Magnesium 1.7 (1.6-2.3) mg/dL Total Bilirubin 0.6 (0.2-1.3) mg/dL AST 24 (14-36) U/L ALT 27 (9-52) U/L Alkaline Phosphatase 147 H D (38-126) U/L Total Protein 5.9 L (6.3-8.3) g/dL Albumin 2.8 L (3.5-5.0) g/dL Globulin 3.1 (2.2-3.9) gm/dL Albumin/Globulin Ratio 0.9 L (1.0-2.1) 18 04/28/17 Range/Units 05:39 00:37 WBC (4.8-10.8) K/uL RBC (3.80-5.20) Mil/uL Hgb (11.0-16.0) g/dL Hct (34.0-47.0) % MCV (81.0-99.0) fL MCH (27.0-31.0) pg MCHC (33.0-37.0) g/dL RDW (11.5-14.5) % Plt Count (130-400) K/uL MPV (7.2-11.7) fL Sodium (132-148) mmol/L Potassium (3.6-5.2) mmol/L Chloride (98-107) mmol/L Carbon Dioxide (22-30) mmol/L Anion Gap (10-20) BUN (7-17) mg/dL Creatinine (0.7-1.2) mg/dL Est GFR ( Amer) Est GFR (Non-Af Amer) POC Glucose (mg/dL) 88 100 (65-110) mg/dL Random Glucose (65-105) mg/dL Calcium (8.6-10.4) mg/dl Phosphorus (2.5-4.5) mg/dL Magnesium (1.6-2.3) mg/dL Total Bilirubin (0.2-1.3) mg/dL AST (14-36) U/L ALT (9-52) U/L Alkaline Phosphatase (38-126) U/L Total Protein (6.3-8.3) g/dL Albumin (3.5-5.0) g/dL Globulin (2.2-3.9) gm/dL Albumin/Globulin Ratio (1.0-2.1) Laboratory Results - last 24 hr 04/28/17 04/28/17 04/28/17 00:37 05:39 06:36 WBC RBC Hgb Hct MCV MCH MCHC RDW Plt Count MPV Sodium 148 Potassium 3.8 Chloride 117 H Carbon Dioxide 18 L Anion Gap 18 BUN 34 H Creatinine 2.0 H Est GFR ( Amer) 35 Est GFR (Non-Af Amer) 29 POC Glucose (mg/dL) 100 88 Random Glucose 85 Calcium 8.6 Phosphorus 3.8 Magnesium 1.7 Total Bilirubin 0.6 AST 24 ALT 27 Alkaline Phosphatase 147 H D Total Protein 5.9 L Albumin 2.8 L Globulin 3.1 Albumin/Globulin Ratio 0.9 L 04/28/17 04/28/17 06:36 11:23 WBC 15.6 H RBC 2.50 L Hgb 7.3 L Hct 21.9 L MCV 87.7 MCH 29.2 MCHC 33.3 RDW 15.3 H Plt Count 354 MPV 9.3 Sodium Potassium Chloride Carbon Dioxide Anion Gap BUN Creatinine Est GFR ( Amer) Est GFR (Non-Af Amer) POC Glucose (mg/dL) 93 Random Glucose Calcium Phosphorus Magnesium Total Bilirubin AST ALT Alkaline Phosphatase Total Protein Albumin Globulin Albumin/Globulin Ratio Attending/Attestation - Attestation I have personally seen and examined this patient.: Yes I have fully participated in the care of the patient.: Yes I have reviewed all pertinent clinical information: Yes Notes (Text): 04/28/17 18:52 Today: April The Patient was seen and examined at the bedside, Medical records reviewed, and management issues were discussed and formulated with the house staff. I have reviewed all the relevant clinical, laboratory, hemodynamic, radiographic data and medications Events reviewed Pain issues, skin care, head of the bed elevation, glycemic control were addressed. Agree with above resident's assessment and treatment plans of care as transcribed in Dr. Chopra note.
[2017-04-28] MEDS: Cefepime IV 1 gm in Dextrose 1 GM/50 ML BAG IVPB SCH (19:35)
[2017-04-28] MEDS: Acetaminophen 650mg/20.3ml solution UD PO PRN (20:18)
[2017-04-29] MEDS: Acetaminophen 650mg/20.3ml solution UD PO PRN (00:53)
[2017-04-29] MEDS: Sodium Chloride 0.45% 1,000 ML IV SCH ×3 (01:59→13:30)
[2017-04-29 07:07] LABS: BASO # 0.1 K/uL (0.0-0.2); BASO % 0.8 % (0.0-2.0); EOS # 0.2 K/uL (0.0-0.7); EOS % 1.1 % (0.0-4.0); HEMOGLOBIN 7.3 g/dL (11.0-16.0); LYMPH # 1.7 K/uL (1.0-4.3); LYMPH % 11.6 % (20.0-40.0); MEAN CELL VOLUME 87.8 fL (81.0-99.0); MEAN CORPUSCULAR HEMOGLOBIN 28.8 pg (27.0-31.0); MEAN CORPUSCULAR HGB CONC 32.8 g/dL (33.0-37.0); MEAN PLATELET VOLUME 9.9 fL (7.2-11.7); NEUT # 11.6 K/uL (1.8-7.0); NEUT % 79.5 % (50.0-75.0); RBC 2.55 Mil/uL (3.80-5.20); WHITE BLOOD COUNT 14.6 K/uL (4.8-10.8)
[2017-04-29 07:33] LABS: ALB/GLOB RATIO 0.9 (1.0-2.1); ALBUMIN 2.7 g/dL (3.5-5.0); CALCIUM 8.2 mg/dl (8.6-10.4)
[2017-04-29] MEDS: Dexmedetomidine Hydrochloride 400 MCG in Sodium Chloride 0.9% 96 ML IV PRN (07:56)
--- NOTE | 2017-04-29 08:35 | CP.CCUPN ---
<Bipin Chopra - Last Filed: 04/29/17 12:27> CCU Subjective - Physician Review Subjective (Free Text): 04/28/17 12:14 Patient seen and examined at bedside CT unremarkable fever 101 today tolerating trach collar OOB to chair resume tube feeds family at bedside 04/29/17 08:29 Patient seen and examined at bedside trach, cpap, tolerating well OOB to chair cultured yesterday when high fever, will follow up family at bedside once episode of vomiting over night. CCU Objective - Vital Signs / Intake & Output Vital Signs (Last 4 hours): Vital Signs Pulse Resp BP Pulse Ox 04/29/17 07:04 73 17 125/81 04/29/17 07:00 78 18 04/29/17 06:04 71 22 123/83 100 04/29/17 06:00 71 27 H 100 04/29/17 05:04 74 33 H 126/79 100 04/29/17 05:00 79 18 100 Intake and Output (Last 8hrs): Intake & Output 04/28/17 04/29/17 04/29/17 22:59 06:59 14:59 Intake Total 1333.6 1322.8 Output Total 940 665 Balance 393.6 657.8 Weight 139 lb 15.896 oz Intake: IV 100 100 Intake, IV Amount 913.6 1027.8 Left PICC 113.6 127.8 Left PICC #2 800 900 Tube Feeding 80 105 Other 240 90 Output: Drainage 70 80 Left Lower Abdomen 30 40 Right Lower Abdomen 40 40 Urine 870 585 Urethral (Tovar) 870 585 Other: # Bowel Movements 1 - Physical Exam Head: Positive for: Atraumatic, Normocephalic. Negative for: Tenderness Pupils: Positive for: PERRL Extroacular Muscles: Positive for: EOMI Mouth: Positive for: Moist Mucous Membranes. Negative for: Dry, Drooling Nose (External): Positive for: Other (NGT in place) Nose (Internal): Positive for: Normal Inspection, Moist Neck: Positive for: Normal Range of Motion. Negative for: JVD, Lymphadenopathy Respiratory/Chest: Positive for: Clear to Auscultation. Negative for: Respiratory Distress, Accessory Muscle Use Cardiovascular: Positive for: Regular Rate and Rhythm, Normal S1, S2 Abdomen: Positive for: Tenderness (mild tenderness of palpation. patient continues to move her arms towards hands on palpation). Negative for: Distention, Guarding Upper Extremity: Positive for: Normal Inspection, Normal ROM, Capillary Refill < 2s. Negative for: Edema Lower Extremity: Positive for: Normal Inspection. Negative for: Edema Neurological: Positive for: CN II-XII Intact Skin: Positive for: Warm, Pale Psychiatric: Positive for: Alert - Medications Active Medications: Active Medications Generic Name Dose Route Start Last Admin Trade Name Freq PRN Reason Stop Dose Admin Acetaminophen 650 mg 04/28/17 20:11 04/29/17 00:53 Tylenol 650mg/20.3ml Solution Ud PO 650 mg Q4 PRN Administration Temperature Ascorbic Acid 500 mg 04/08/17 12:30 04/28/17 10:12 Vitamin C 500 Mg Tab PO 500 mg DAILY AGUSTIN Administration Calcium Acetate 667 mg 04/23/17 17:00 04/28/17 16:39 Phoslo PO 667 mg BIDCC AGUSTIN Administration Dexmedetomidine HCl 400 mcg/ 100 mls @ 3.4 mls/hr 04/21/17 16:30 04/29/17 07: 56 Sodium Chloride IV 0.83 mcg/kg/hr TITR PRN 14.11 mls/hr Agitation Administration Protocol 0.2 MCG/KG/HR Cefepime HCl 1 gm in 50 mls @ 100 mls/hr 04/21/17 19:30 04/28/17 19:35 Maxipime Iv 1 Gm Premix IVPB 100 mls/hr Q24H AGUSTIN Administration Vancomycin HCl 500 mg/ Sodium 100 mls @ 100 mls/hr 04/22/17 09:00 04/27/17 08 :25 Chloride IVPB 100 mls/hr MWF AGUSTIN Administration Fluconazole 100 mls @ 100 mls/hr 04/28/17 10:00 04/28/17 10:13 Diflucan Iv 200 Mg/100 Ml Ns IVPB 100 mls/hr DAILY AGUSTIN Administration Sodium Chloride 1,000 mls @ 100 mls/hr 04/27/17 13:45 04/29/17 05:05 Sodium Chloride 0.45% IV Not Given .Q10H AGUSTIN Levetiracetam 250 mg 04/23/17 18:00 04/28/17 17:49 Keppra PO 250 mg BID AGUSTIN Administration Metoprolol Tartrate 12.5 mg 04/26/17 18:00 04/28/17 17:48 Lopressor PO 12.5 mg BID AGUSTIN Administration Metronidazole 500 mg 04/27/17 22:00 04/29/17 05:52 Flagyl JT 500 mg Q8 AGUSTIN Administration Morphine Sulfate 2 mg 04/25/17 16:07 04/28/17 00:50 Morphine IV 2 mg Q6 PRN Administration Pain, severe (8-10) Ondansetron HCl 4 mg 03/27/17 23:45 04/27/17 03:47 Zofran Inj IVP 4 mg Q6H PRN Administration Nausea/Vomiting Pantoprazole Sodium 20 mg 04/19/17 18:00 04/28/17 17:48 Protonix Inj IVP 20 mg BID AGUSTIN Administration Saccharomyces Boulardii 250 mg 04/08/17 18:00 04/28/17 17:48 Florastor PO 250 mg BID AGUSTIN Administration Thiamine HCl 100 mg 04/08/17 12:30 04/28/17 10:12 Vitamin B1 Tab PO 100 mg DAILY AGUSTIN Administration - Patient Studies Lab Studies: Microbiology Studies 04/24/17 13:00 Blood Culture - Preliminary Blood NO GROWTH AFTER 4 DAYS 04/24/17 12:45 Blood Culture - Preliminary Blood NO GROWTH AFTER 4 DAYS Lab Studies 04/29/17 04/29/17 04/29/17 Range/Units 06:52 06:52 05:56 WBC 14.6 H (4.8-10.8) K/uL RBC 2.55 L (3.80-5.20) Mil/uL Hgb 7.3 L (11.0-16.0) g/dL Hct 22.4 L (34.0-47.0) % MCV 87.8 (81.0-99.0) fL MCH 28.8 (27.0-31.0) pg MCHC 32.8 L (33.0-37.0) g/dL RDW 15.0 H (11.5-14.5) % Plt Count 356 (130-400) K/uL MPV 9.9 (7.2-11.7) fL Neut % (Auto) 79.5 H (50.0-75.0) % Lymph % (Auto) 11.6 L (20.0-40.0) % Bucks % (Auto) 7.0 (0.0-10.0) % Eos % (Auto) 1.1 (0.0-4.0) % Baso % (Auto) 0.8 (0.0-2.0) % Neut # 11.6 H (1.8-7.0) K/uL Lymph # 1.7 (1.0-4.3) K/uL Bucks # 1.0 H (0.0-0.8) K/uL Eos # 0.2 (0.0-0.7) K/uL Baso # 0.1 (0.0-0.2) K/uL Sodium 144 (132-148) mmol/L Potassium 3.4 L (3.6-5.2) mmol/L Chloride 116 H (98-107) mmol/L Carbon Dioxide 19 L (22-30) mmol/L Anion Gap 12 (10-20) BUN 31 H (7-17) mg/dL Creatinine 1.5 H (0.7-1.2) mg/dL Est GFR ( Amer) 48 Est GFR (Non-Af Amer) 40 POC Glucose (mg/dL) 116 H (65-110) mg/dL Random Glucose 108 H (65-105) mg/dL Calcium 8.2 L (8.6-10.4) mg/dl Phosphorus 3.2 (2.5-4.5) mg/dL Magnesium 1.4 L (1.6-2.3) mg/dL Total Bilirubin 0.6 (0.2-1.3) mg/dL AST 17 (14-36) U/L ALT 23 (9-52) U/L Alkaline Phosphatase 131 H (38-126) U/L Total Protein 5.6 L (6.3-8.3) g/dL Albumin 2.7 L (3.5-5.0) g/dL Globulin 3.0 (2.2-3.9) gm/dL Albumin/Globulin Ratio 0.9 L (1.0-2.1) 04/28/17 04/28/17 04/28/17 Range/Units 23:45 17:46 11:23 WBC (4.8-10.8) K/uL RBC (3.80-5.20) Mil/uL Hgb (11.0-16.0) g/dL Hct (34.0-47.0) % MCV (81.0-99.0) fL MCH (27.0-31.0) pg MCHC (33.0-37.0) g/dL RDW (11.5-14.5) % Plt Count (130-400) K/uL MPV (7.2-11.7) fL Neut % (Auto) (50.0-75.0) % Lymph % (Auto) (20.0-40.0) % Bucks % (Auto) (0.0-10.0) % Eos % (Auto) (0.0-4.0) % Baso % (Auto) (0.0-2.0) % Neut # (1.8-7.0) K/uL Lymph # (1.0-4.3) K/uL Bucks # (0.0-0.8) K/uL Eos # (0.0-0.7) K/uL Baso # (0.0-0.2) K/uL Sodium (132-148) mmol/L Potassium (3.6-5.2) mmol/L Chloride (98-107) mmol/L Carbon Dioxide (22-30) mmol/L Anion Gap (10-20) BUN (7-17) mg/dL Creatinine (0.7-1.2) mg/dL Est GFR ( Amer) Est GFR (Non-Af Amer) POC Glucose (mg/dL) 119 H 105 93 (65-110) mg/dL Random Glucose (65-105) mg/dL Calcium (8.6-10.4) mg/dl Phosphorus (2.5-4.5) mg/dL Magnesium (1.6-2.3) mg/dL Total Bilirubin (0.2-1.3) mg/dL AST (14-36) U/L ALT (9-52) U/L Alkaline Phosphatase (38-126) U/L Total Protein (6.3-8.3) g/dL Albumin (3.5-5.0) g/dL Globulin (2.2-3.9) gm/dL Albumin/Globulin Ratio (1.0-2.1) Laboratory Results - last 24 hr 04/28/17 04/28/17 04/28/17 11:23 17:46 23:45 WBC RBC Hgb Hct MCV MCH MCHC RDW Plt Count MPV Neut % (Auto) Lymph % (Auto) Bucks % (Auto) Eos % (Auto) Baso % (Auto) Neut # Lymph # Bucks # Eos # Baso # Sodium Potassium Chloride Carbon Dioxide Anion Gap BUN Creatinine Est GFR ( Amer) Est GFR (Non-Af Amer) POC Glucose (mg/dL) 93 105 119 H Random Glucose Calcium Phosphorus Magnesium Total Bilirubin AST ALT Alkaline Phosphatase Total Protein Albumin Globulin Albumin/Globulin Ratio 04/29/17 04/29/17 04/29/17 05:56 06:52 06:52 WBC 14.6 H RBC 2.55 L Hgb 7.3 L Hct 22.4 L MCV 87.8 MCH 28.8 MCHC 32.8 L RDW 15.0 H Plt Count 356 MPV 9.9 Neut % (Auto) 79.5 H Lymph % (Auto) 11.6 L Bucks % (Auto) 7.0 Eos % (Auto) 1.1 Baso % (Auto) 0.8 Neut # 11.6 H Lymph # 1.7 Bucks # 1.0 H Eos # 0.2 Baso # 0.1 Sodium 144 Potassium 3.4 L Chloride 116 H Carbon Dioxide 19 L Anion Gap 12 BUN 31 H Creatinine 1.5 H Est GFR ( Amer) 48 Est GFR (Non-Af Amer) 40 POC Glucose (mg/dL) 116 H Random Glucose 108 H Calcium 8.2 L Phosphorus 3.2 Magnesium 1.4 L Total Bilirubin 0.6 AST 17 ALT 23 Alkaline Phosphatase 131 H Total Protein 5.6 L Albumin 2.7 L Globulin 3.0 Albumin/Globulin Ratio 0.9 L Fingerstick Blood Sugar Results: 118 Assessment/Plan - Assessment and Plan (Free Text) Assessment: 36F w/gastrioparesis and GI bleed; s/p boby en Y bypass, J-tube POD 11 Plan: Neuro: * Neuro (Aureliano) * Hx Schizophrenia, mental retardation * Seizure activity 04/20 * Haloperidol 1 IV BID PRN * Keppra 250 PO BID * Ativan 0.5 IV Q3 PRN * Ativan 2 IV Q4 PRN Seizure * Precedex 400 @ 3.4 * Thiamine 100mg PO QD * Vit C 500mg PO QD Psych: * Psych (Ozden) * Quetiapine, Escitalopram - held Cardio: * Cards (Dex) * Tachy * lopressor 12.5 BID Pulm: * Intubated, trach, CPAP today, doing well, trach collar today * Albuterol/Ipratropium 3cc INH RQ6H Endo: * 03/28 Hemoglobin A1c 5.3 GI: * S/P R-n-Y POD 11 * J tube Glucerna 1.5 @ 30 * Dilaudid 1 IV Q3 PRN * Hal Drain * Zofran IV Q6 PRN Renal: * Permacath * HD on hold * making urine : * continues to make urine * Urine Culture - yeast * Diflucan 200 IV QD Heme: * Hx GI bleed * Hgb stable * S/p RnY MSK: * Prior to hospitalization could ambulate * PT/OT ID: * WBC downtrending * F/U Blood cultures * PICC Line Prophylaxis: * Protonix Q12H * Zofran 4mg IV Q6H * Fluids: NS @ 100 <Irwin Guerin - Last Filed: 04/29/17 16:27> CCU Objective - Vital Signs / Intake & Output Intake and Output (Last 8hrs): Intake & Output 04/29/17 04/29/17 04/29/17 06:59 14:59 22:59 Intake Total 1322.8 228.4 Output Total 665 200 Balance 657.8 28.4 Weight 139 lb 15.896 oz Intake: IV 100 Intake, IV Amount 1027.8 228.4 Left PICC 127.8 28.4 Left PICC #2 900 200 Tube Feeding 105 0 Other 90 Output: Drainage 80 Left Lower Abdomen 40 Right Lower Abdomen 40 Urine 585 200 Urethral (Tovar) 585 200 Other: # Bowel Movements 1 - Medications Active Medications: Active Medications Generic Name Dose Route Start Last Admin Trade Name Freq PRN Reason Stop Dose Admin Acetaminophen 650 mg 04/28/17 20:11 04/29/17 00:53 Tylenol 650mg/20.3ml Solution Ud PO 650 mg Q4 PRN Administration Temperature Ascorbic Acid 500 mg 04/08/17 12:30 04/29/17 09:14 Vitamin C 500 Mg Tab PO 500 mg DAILY AGUSTIN Administration Fluconazole 100 mls @ 100 mls/hr 04/28/17 10:00 04/29/17 09:30 Diflucan Iv 200 Mg/100 Ml Ns IVPB 100 mls/hr DAILY AGUSTIN Administration Sodium Chloride 1,000 mls @ 50 mls/hr 04/29/17 13:18 Sodium Chloride 0.45% IV .Q20H AGUSTIN Magnesium Sulfate/Dextrose 1 gm in 100 mls @ 300 mls/hr 04/29/17 17:00 Magnesium Sulfate 1 Gm/100 Ml D5w IVPB 04/29/17 17:49 Q30M AGUSTIN Levetiracetam 250 mg 04/23/17 18:00 04/29/17 09:16 Keppra PO 250 mg BID AGUSTIN Administration Metoclopramide HCl 10 mg 04/29/17 16:00 Reglan IVP DAILY@ONCE PRN Nausea/Vomiting Metoprolol Tartrate 12.5 mg 04/26/17 18:00 04/29/17 09:14 Lopressor PO 12.5 mg BID AGUSTIN Administration Morphine Sulfate 2 mg 04/25/17 16:07 04/28/17 00:50 Morphine IV 2 mg Q6 PRN Administration Pain, severe (8-10) Ondansetron HCl 4 mg 03/27/17 23:45 04/29/17 16:14 Zofran Inj IVP 4 mg Q6H PRN Administration Nausea/Vomiting Pantoprazole Sodium 20 mg 04/19/17 18:00 04/29/17 09:13 Protonix Inj IVP 20 mg BID AGUSTIN Administration Saccharomyces Boulardii 250 mg 04/08/17 18:00 04/29/17 09:14 Florastor PO 250 mg BID AGUSTIN Administration Thiamine HCl 100 mg 04/08/17 12:30 04/29/17 09:14 Vitamin B1 Tab PO 100 mg DAILY AGUSTIN Administration - Patient Studies Lab Studies: Microbiology Studies 04/24/17 13:00 Blood Culture - Final Blood NO GROWTH AFTER 5 DAYS Gram Stain - Final TEST NOT PERFORMED 04/24/17 12:45 Blood Culture - Final Blood NO GROWTH AFTER 5 DAYS Gram Stain - Final TEST NOT PERFORMED Lab Studies 04/29/17 04/29/17 04/29/17 Range/Units 12:06 06:52 06:52 WBC 14.6 H (4.8-10.8) K/uL RBC 2.55 L (3.80-5.20) Mil/uL Hgb 7.3 L (11.0-16.0) g/dL Hct 22.4 L (34.0-47.0) % MCV 87.8 (81.0-99.0) fL MCH 28.8 (27.0-31.0) pg MCHC 32.8 L (33.0-37.0) g/dL RDW 15.0 H (11.5-14.5) % Plt Count 356 (130-400) K/uL MPV 9.9 (7.2-11.7) fL Neut % (Auto) 79.5 H (50.0-75.0) % Lymph % (Auto) 11.6 L (20.0-40.0) % Bucks % (Auto) 7.0 (0.0-10.0) % Eos % (Auto) 1.1 (0.0-4.0) % Baso % (Auto) 0.8 (0.0-2.0) % Neut # 11.6 H (1.8-7.0) K/uL Lymph # 1.7 (1.0-4.3) K/uL Bucks # 1.0 H (0.0-0.8) K/uL Eos # 0.2 (0.0-0.7) K/uL Baso # 0.1 (0.0-0.2) K/uL Sodium 144 (132-148) mmol/L Potassium 3.4 L (3.6-5.2) mmol/L Chloride 116 H (98-107) mmol/L Carbon Dioxide 19 L (22-30) mmol/L Anion Gap 12 (10-20) BUN 31 H (7-17) mg/dL Creatinine 1.5 H (0.7-1.2) mg/dL Est GFR ( Amer) 48 Est GFR (Non-Af Amer) 40 POC Glucose (mg/dL) 106 (65-110) mg/dL Random Glucose 108 H (65-105) mg/dL Calcium 8.2 L (8.6-10.4) mg/dl Phosphorus 3.2 (2.5-4.5) mg/dL Magnesium 1.4 L (1.6-2.3) mg/dL Total Bilirubin 0.6 (0.2-1.3) mg/dL AST 17 (14-36) U/L ALT 23 (9-52) U/L Alkaline Phosphatase 131 H (38-126) U/L Total Protein 5.6 L (6.3-8.3) g/dL Albumin 2.7 L (3.5-5.0) g/dL Globulin 3.0 (2.2-3.9) gm/dL Albumin/Globulin Ratio 0.9 L (1.0-2.1) 04/29/17 04/28/17 04/28/17 Range/Units 05:56 23:45 17:46 WBC (4.8-10.8) K/uL RBC (3.80-5.20) Mil/uL Hgb (11.0-16.0) g/dL Hct (34.0-47.0) % MCV (81.0-99.0) fL MCH (27.0-31.0) pg MCHC (33.0-37.0) g/dL RDW (11.5-14.5) % Plt Count (130-400) K/uL MPV (7.2-11.7) fL Neut % (Auto) (50.0-75.0) % Lymph % (Auto) (20.0-40.0) % Bucks % (Auto) (0.0-10.0) % Eos % (Auto) (0.0-4.0) % Baso % (Auto) (0.0-2.0) % Neut # (1.8-7.0) K/uL Lymph # (1.0-4.3) K/uL Bucks # (0.0-0.8) K/uL Eos # (0.0-0.7) K/uL Baso # (0.0-0.2) K/uL Sodium (132-148) mmol/L Potassium (3.6-5.2) mmol/L Chloride (98-107) mmol/L Carbon Dioxide (22-30) mmol/L Anion Gap (10-20) BUN (7-17) mg/dL Creatinine (0.7-1.2) mg/dL Est GFR ( Amer) Est GFR (Non-Af Amer) POC Glucose (mg/dL) 116 H 119 H 105 (65-110) mg/dL Random Glucose (65-105) mg/dL Calcium (8.6-10.4) mg/dl Phosphorus (2.5-4.5) mg/dL Magnesium (1.6-2.3) mg/dL Total Bilirubin (0.2-1.3) mg/dL AST (14-36) U/L ALT (9-52) U/L Alkaline Phosphatase (38-126) U/L Total Protein (6.3-8.3) g/dL Albumin (3.5-5.0) g/dL Globulin (2.2-3.9) gm/dL Albumin/Globulin Ratio (1.0-2.1) Laboratory Results - last 24 hr 04/28/17 04/28/17 04/29/17 17:46 23:45 05:56 WBC RBC Hgb Hct MCV MCH MCHC RDW Plt Count MPV Neut % (Auto) Lymph % (Auto) Bucks % (Auto) Eos % (Auto) Baso % (Auto) Neut # Lymph # Bucks # Eos # Baso # Sodium Potassium Chloride Carbon Dioxide Anion Gap BUN Creatinine Est GFR ( Amer) Est GFR (Non-Af Amer) POC Glucose (mg/dL) 105 119 H 116 H Random Glucose Calcium Phosphorus Magnesium Total Bilirubin AST ALT Alkaline Phosphatase Total Protein Albumin Globulin Albumin/Globulin Ratio 04/29/17 04/29/17 04/29/17 06:52 06:52 12:06 WBC 14.6 H RBC 2.55 L Hgb 7.3 L Hct 22.4 L MCV 87.8 MCH 28.8 MCHC 32.8 L RDW 15.0 H Plt Count 356 MPV 9.9 Neut % (Auto) 79.5 H Lymph % (Auto) 11.6 L Bucks % (Auto) 7.0 Eos % (Auto) 1.1 Baso % (Auto) 0.8 Neut # 11.6 H Lymph # 1.7 Bucks # 1.0 H Eos # 0.2 Baso # 0.1 Sodium 144 Potassium 3.4 L Chloride 116 H Carbon Dioxide 19 L Anion Gap 12 BUN 31 H Creatinine 1.5 H Est GFR ( Amer) 48 Est GFR (Non-Af Amer) 40 POC Glucose (mg/dL) 106 Random Glucose 108 H Calcium 8.2 L Phosphorus 3.2 Magnesium 1.4 L Total Bilirubin 0.6 AST 17 ALT 23 Alkaline Phosphatase 131 H Total Protein 5.6 L Albumin 2.7 L Globulin 3.0 Albumin/Globulin Ratio 0.9 L Assessment/Plan (1) Acute pancreatitis Current Visit: Yes Status: Acute Attending/Attestation - Attestation I have personally seen and examined this patient.: Yes I have fully participated in the care of the patient.: Yes I have reviewed all pertinent clinical information: Yes Notes (Text): 04/29/17 16:21 I have seen and examined the patient. Medical records, lab studies, and imaging were reviewed by me and a management plan was formulated on multidisciplinary rounds with resident Dr. Chopra. I agree with their documented assessment and plan. Patient is having persistent vomiting with feeding, holding feeds for now, started on Reglan. Unsure about etiology. Stopping all antibiotics. Will start patient on trach collar, will need PT/OT eval. Critical Care Time 35 minutes. Multi-disciplinary rounds were performed with house staff, nursing, speech therapy, respiratory therapy, pharmacy and nutrition with integrated input from the primary team/attending and other consulting services. The documented time is cumulative and includes review of patient data/exams/labs/chart review and examination of the patient on rounds and throughout the day; time is exclusive of any procedures or teaching time.
--- NOTE | 2017-04-29 08:43 | CP.PCM.PN ---
<Lavern Long - Last Filed: 04/29/17 12:22> Subjective - Date & Time of Evaluation Date of Evaluation: 04/29/17 Time of Evaluation: 09:05 - Subjective Subjective: GI progress note for Dr Meade's service Patient remains febrile despite broadspectrum antibiotics and antifungal, TMAX of 102.6, this AM temp of 101. As per nurse patieent had billous vomiting this morning, thus feeding was held. No ostomy output, however there was small stool noted on the bedding. Otherwise patient is been out of bed to chair, on trach color. Objective - Vital Signs/Intake and Output Vital Signs (last 24 hours): Temp Pulse Resp BP Pulse Ox 100.4 F H 73 17 125/81 100 04/29/17 03:43 04/29/17 07:04 04/29/17 07:04 04/29/17 07:04 04/29/17 06:04 Intake and Output: 04/29/17 04/29/17 06:59 18:59 Intake Total 1959.6 Output Total 1210 Balance 749.6 - Medications Medications: Current Medications Acetaminophen (Tylenol 650mg/20.3ml Solution Ud) 650 mg PO Q4 PRN PRN Reason: Temperature Last Admin: 04/29/17 00:53 Dose: 650 mg Ascorbic Acid (Vitamin C 500 Mg Tab) 500 mg PO DAILY [facility] Last Admin: 04/28/17 10:12 Dose: 500 mg Calcium Acetate (Phoslo) 667 mg PO BIDCC [facility] Last Admin: 04/28/17 16:39 Dose: 667 mg Dexmedetomidine HCl 400 mcg/ (Sodium Chloride) 100 mls @ 3.4 mls/hr IV TITR PRN ; Protocol; 0.2 MCG/KG/HR PRN Reason: Agitation Last Admin: 04/29/17 07:56 Dose: 0.83 mcg/kg/hr, 14.11 mls/hr Cefepime HCl (Maxipime Iv 1 Gm Premix) 1 gm in 50 mls @ 100 mls/hr IVPB Q24H [facility] Last Admin: 04/28/17 19:35 Dose: 100 mls/hr Vancomycin HCl 500 mg/ Sodium (Chloride) 100 mls @ 100 mls/hr IVPB MWF [facility] Last Admin: 04/27/17 08:25 Dose: 100 mls/hr Fluconazole (Diflucan Iv 200 Mg/100 Ml Ns) 100 mls @ 100 mls/hr IVPB DAILY [facility] Last Admin: 04/28/17 10:13 Dose: 100 mls/hr Sodium Chloride (Sodium Chloride 0.45%) 1,000 mls @ 100 mls/hr IV .Q10H [facility] Last Admin: 04/29/17 05:05 Dose: Not Given Levetiracetam (Keppra) 250 mg PO BID [facility] Last Admin: 04/28/17 17:49 Dose: 250 mg Metoprolol Tartrate (Lopressor) 12.5 mg PO BID [facility] Last Admin: 04/28/17 17:48 Dose: 12.5 mg Metronidazole (Flagyl) 500 mg JT Q8 [facility] Last Admin: 04/29/17 05:52 Dose: 500 mg Morphine Sulfate (Morphine) 2 mg IV Q6 PRN PRN Reason: Pain, severe (8-10) Last Admin: 04/28/17 00:50 Dose: 2 mg Ondansetron HCl (Zofran Inj) 4 mg IVP Q6H PRN PRN Reason: Nausea/Vomiting Last Admin: 04/27/17 03:47 Dose: 4 mg Pantoprazole Sodium (Protonix Inj) 20 mg IVP BID [facility] Last Admin: 04/28/17 17:48 Dose: 20 mg Saccharomyces Boulardii (Florastor) 250 mg PO BID [facility] Last Admin: 04/28/17 17:48 Dose: 250 mg Thiamine HCl (Vitamin B1 Tab) 100 mg PO DAILY [facility] Last Admin: 04/28/17 10:12 Dose: 100 mg - Labs Labs: 04/29/17 06:52 04/29/17 06:52 PT 14.0 SECONDS (9.7-12.2) H 04/25/17 06:25 INR 1.2 04/25/17 06:25 APTT 32 SECONDS (21-34) 04/25/17 06:25 - Constitutional Appears: No Acute Distress, Older Than Stated Age, Cachectic, Chronically Ill - Head Exam Head Exam: ATRAUMATIC, NORMAL INSPECTION, NORMOCEPHALIC - Eye Exam Eye Exam: EOMI, Normal appearance, PERRL. absent: Scleral icterus (pale) - ENT Exam ENT Exam: Mucous Membranes Moist - Neck Exam Neck Exam: Normal Inspection - Respiratory Exam Respiratory Exam: Prolonged Expiratory Phase, Rhonchi, Wheezes. absent: Rales, Respiratory Distress, Stridor Additional comments: trach in place. - Cardiovascular Exam Cardiovascular Exam: REGULAR RHYTHM, +S1, +S2. absent: Gallop, JVD, Rubs, Murmur - GI/Abdominal Exam GI & Abdominal Exam: Soft, Diminished Bowel Sounds. absent: Distended, Firm, Guarding, Rigid, Tenderness Additional comments: J-tube in place. with dark fluid. - Extremities Exam Extremities Exam: Normal Inspection. 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 1. SMA syndrome- s/p gastro-jejunostomy as well as a feeding jejunostomy 2 weeks ago 2. Fever 3. Gastric ulcer 4. right HD cath, trach 5. Pneumonia Plan: - CT with po and iv contrast with no intra abdominal abscess noted, thickening of the cecum versus incomplete mixing of contrast, jessica lower lobe infiltration and trace pleural effusion. - Patient continues to spike temp despite being on vanco, cefepime and diflucan , no growth on cultures so far, except yeast on ua. - Repeat cultures were sent yesterday, pending - Continue antibiotics as per ID. - Patient is also being followed by surgery and neurology, please follow up with their recommendation. Patient seen, examined and case discussed with Gi fellows and Dr Meade. <Dov Meade - Last Filed: 04/29/17 18:18> Objective - Vital Signs/Intake and Output Vital Signs (last 24 hours): Temp Pulse Resp BP Pulse Ox 100.4 F H 86 21 121/89 100 04/29/17 03:43 04/29/17 10:04 04/29/17 10:04 04/29/17 10:04 04/29/17 06:04 Intake and Output: 04/29/17 04/29/17 06:59 18:59 Intake Total 1959.6 228.4 Output Total 1210 200 Balance 749.6 28.4 - Medications Medications: Current Medications Acetaminophen (Tylenol 650mg/20.3ml Solution Ud) 650 mg PO Q4 PRN PRN Reason: Temperature Last Admin: 04/29/17 00:53 Dose: 650 mg Ascorbic Acid (Vitamin C 500 Mg Tab) 500 mg PO DAILY [facility] Last Admin: 04/29/17 09:14 Dose: 500 mg Fluconazole (Diflucan Iv 200 Mg/100 Ml Ns) 100 mls @ 100 mls/hr IVPB DAILY [facility] Last Admin: 04/29/17 09:30 Dose: 100 mls/hr Sodium Chloride (Sodium Chloride 0.45%) 1,000 mls @ 50 mls/hr IV .Q20H [facility] Last Admin: 04/29/17 17:34 Dose: Not Given Levetiracetam (Keppra) 250 mg PO BID [facility] Last Admin: 04/29/17 17:51 Dose: 250 mg Metoclopramide HCl (Reglan) 10 mg IVP DAILY@ONCE PRN PRN Reason: Nausea/Vomiting Last Admin: 04/29/17 17:52 Dose: 10 mg Metoprolol Tartrate (Lopressor) 12.5 mg PO BID [facility] Last Admin: 04/29/17 09:14 Dose: 12.5 mg Morphine Sulfate (Morphine) 2 mg IV Q6 PRN PRN Reason: Pain, severe (8-10) Last Admin: 04/28/17 00:50 Dose: 2 mg Ondansetron HCl (Zofran Inj) 4 mg IVP Q6H PRN PRN Reason: Nausea/Vomiting Last Admin: 04/29/17 16:14 Dose: 4 mg Pantoprazole Sodium (Protonix Inj) 20 mg IVP BID [facility] Last Admin: 04/29/17 17:52 Dose: 20 mg Saccharomyces Boulardii (Florastor) 250 mg PO BID [facility] Last Admin: 04/29/17 17:51 Dose: 250 mg Thiamine HCl (Vitamin B1 Tab) 100 mg PO DAILY [facility] Last Admin: 04/29/17 09:14 Dose: 100 mg - Labs Labs: 04/29/17 06:52 04/29/17 06:52 PT 14.0 SECONDS (9.7-12.2) H 04/25/17 06:25 INR 1.2 04/25/17 06:25 APTT 32 SECONDS (21-34) 04/25/17 06:25 Attending/Attestation - Attestation I have personally seen and examined this patient.: Yes I have fully participated in the care of the patient.: Yes I have reviewed all pertinent clinical information, including history, physical exam and plan: Yes Notes (Text): 04/29/17 18:15 36 year old female with SMA syndrome, vent dependent respiratory failure s/p trach, pneumonia, s/p gastro-jejunostomy and jejunal feeding tube, recovering in ICU. 1. SMA syndrome Plan: -CT reviewed, post surgical findings noted, contrast continues into colon, abnormal appearing cecum noted -restart tube feedings -supportive care -abx for pneumonia per icu -continue ppi for gastric ulcer
--- NOTE | 2017-04-29 09:04 | RAD ---
PROCEDURE: CHEST RADIOGRAPH, 1 VIEW HISTORY: trach patient COMPARISON: Portable chest 04/25/2017. FINDINGS: Tracheostomy tube, left PICC and right central venous dialysis catheter are unchanged in position. LUNGS: Interval limited airspace disease identified in the right infrahilar space and also at the left base with left hemidiaphragm silhouetted. PLEURA: No pneumothorax or pleural fluid seen. CARDIOVASCULAR: Cardiac silhouette appears prominent and may be magnified by frontal technique. Pulmonary venous congestion is in question however and further clinical correlation is advised. OSSEOUS STRUCTURES: No significant abnormalities. VISUALIZED UPPER ABDOMEN: Normal. OTHER FINDINGS: None. IMPRESSION: Increased bibasilar airspace disease is appreciated with borderline CHF pattern. Clinically correlate further.
[2017-04-29] MEDS: Saccharomyces Boulardi 250 mg Cap PO SCH ×2 (09:14→17:51)
[2017-04-29] MEDS: Fluconazole IV 200mg/100 ml NS 100 ML IVPB SCH (09:30)
--- NOTE | 2017-04-29 12:30 | CP.PCM.PN ---
Subjective - Date & Time of Evaluation Date of Evaluation: 04/29/17 Time of Evaluation: 06:30 - Subjective Subjective: General Surgery Note for Dr. Mendez Patient seen and examined at bedside. She had Tmax of 101.2 overnight. She also had an episode of bilious vomiting this morning. Patient is on vent support and being sedated. ROS unobtainable. Urine output was 2100cc/24 hrs. Masha drain output was 80 cc/24hrs. Objective - Vital Signs/Intake and Output Vital Signs (last 24 hours): Temp Pulse Resp BP Pulse Ox 100.4 F H 86 21 121/89 100 04/29/17 03:43 04/29/17 10:04 04/29/17 10:04 04/29/17 10:04 04/29/17 06:04 Intake and Output: 04/29/17 04/29/17 06:59 18:59 Intake Total 1959.6 228.4 Output Total 1210 200 Balance 749.6 28.4 - Medications Medications: Current Medications Acetaminophen (Tylenol 650mg/20.3ml Solution Ud) 650 mg PO Q4 PRN PRN Reason: Temperature Last Admin: 04/29/17 00:53 Dose: 650 mg Ascorbic Acid (Vitamin C 500 Mg Tab) 500 mg PO DAILY [facility] Last Admin: 04/29/17 09:14 Dose: 500 mg Calcium Acetate (Phoslo) 667 mg PO BIDCC [facility] Last Admin: 04/29/17 09:00 Dose: 667 mg Fluconazole (Diflucan Iv 200 Mg/100 Ml Ns) 100 mls @ 100 mls/hr IVPB DAILY [facility] Last Admin: 04/29/17 09:30 Dose: 100 mls/hr Sodium Chloride (Sodium Chloride 0.45%) 1,000 mls @ 100 mls/hr IV .Q10H [facility] Last Admin: 04/29/17 05:05 Dose: Not Given Levetiracetam (Keppra) 250 mg PO BID [facility] Last Admin: 04/29/17 09:16 Dose: 250 mg Metoprolol Tartrate (Lopressor) 12.5 mg PO BID [facility] Last Admin: 04/29/17 09:14 Dose: 12.5 mg Morphine Sulfate (Morphine) 2 mg IV Q6 PRN PRN Reason: Pain, severe (8-10) Last Admin: 04/28/17 00:50 Dose: 2 mg Ondansetron HCl (Zofran Inj) 4 mg IVP Q6H PRN PRN Reason: Nausea/Vomiting Last Admin: 04/27/17 03:47 Dose: 4 mg Pantoprazole Sodium (Protonix Inj) 20 mg IVP BID [facility] Last Admin: 04/29/17 09:13 Dose: 20 mg Saccharomyces Boulardii (Florastor) 250 mg PO BID [facility] Last Admin: 04/29/17 09:14 Dose: 250 mg Thiamine HCl (Vitamin B1 Tab) 100 mg PO DAILY [facility] Last Admin: 04/29/17 09:14 Dose: 100 mg - Labs Labs: 04/29/17 06:52 04/29/17 06:52 PT 14.0 SECONDS (9.7-12.2) H 04/25/17 06:25 INR 1.2 04/25/17 06:25 APTT 32 SECONDS (21-34) 04/25/17 06:25 - Constitutional Appears: No Acute Distress - Head Exam Head Exam: ATRAUMATIC, NORMOCEPHALIC - Eye Exam Eye Exam: Normal appearance - ENT Exam ENT Exam: Mucous Membranes Moist - Neck Exam Additional comments: s/p tracheostomy - site clean, dry, intact without evidence of bleeding - Respiratory Exam Respiratory Exam: NORMAL BREATHING PATTERN Additional comments: on vent support - Cardiovascular Exam Cardiovascular Exam: REGULAR RHYTHM - GI/Abdominal Exam GI & Abdominal Exam: Soft, Normal Bowel Sounds. absent: Tenderness Additional comments: midline incision clean, dry, and intact Jejunostomy tube in place and functioning properly - stoma pink and patent masha drain in place with serosanginous output - Extremities Exam Extremities Exam: Normal Capillary Refill - Neurological Exam Neurological Exam: Awake - Psychiatric Exam Psychiatric exam: Flat Affect - Skin Skin Exam: Dry, Intact, Normal Color, Warm Assessment and Plan - Assessment and Plan (Free Text) Plan: 36 F s/p ex lap with gastrojejunostomy with jejunostomy tube placement POD#11, s /p percutaneous tracheostomy and R IJ permacath placement POD#4 -NPO -Tube feeds -Strict I's & O's -Analgesics/Anti-emetics PRN -Trach sutures to be removed on POD#10 (05/05) -DVT/GI ppx -Management as per ICU -Discussed with Dr. Andrea Wells PGY1
--- NOTE | 2017-04-29 13:14 | CP.PCM.PN ---
Subjective - Date & Time of Evaluation Date of Evaluation: 04/29/17 Time of Evaluation: 13:10 - Subjective Subjective: On trach collar Creat decreasing- UO about 2150ml/ 24 hrs Lytes improved- on IV fluids CXR with increased congestion Await, same confusional state Needs mag repletion Objective - Vital Signs/Intake and Output Vital Signs (last 24 hours): Temp Pulse Resp BP Pulse Ox 100.4 F H 86 21 121/89 100 04/29/17 03:43 04/29/17 10:04 04/29/17 10:04 04/29/17 10:04 04/29/17 06:04 Intake and Output: 04/29/17 04/29/17 06:59 18:59 Intake Total 1959.6 228.4 Output Total 1210 200 Balance 749.6 28.4 - Medications Medications: Current Medications Acetaminophen (Tylenol 650mg/20.3ml Solution Ud) 650 mg PO Q4 PRN PRN Reason: Temperature Last Admin: 04/29/17 00:53 Dose: 650 mg Ascorbic Acid (Vitamin C 500 Mg Tab) 500 mg PO DAILY [facility] Last Admin: 04/29/17 09:14 Dose: 500 mg Calcium Acetate (Phoslo) 667 mg PO BIDCC [facility] Last Admin: 04/29/17 09:00 Dose: 667 mg Fluconazole (Diflucan Iv 200 Mg/100 Ml Ns) 100 mls @ 100 mls/hr IVPB DAILY [facility] Last Admin: 04/29/17 09:30 Dose: 100 mls/hr Sodium Chloride (Sodium Chloride 0.45%) 1,000 mls @ 100 mls/hr IV .Q10H [facility] Last Admin: 04/29/17 05:05 Dose: Not Given Levetiracetam (Keppra) 250 mg PO BID [facility] Last Admin: 04/29/17 09:16 Dose: 250 mg Metoprolol Tartrate (Lopressor) 12.5 mg PO BID [facility] Last Admin: 04/29/17 09:14 Dose: 12.5 mg Morphine Sulfate (Morphine) 2 mg IV Q6 PRN PRN Reason: Pain, severe (8-10) Last Admin: 04/28/17 00:50 Dose: 2 mg Ondansetron HCl (Zofran Inj) 4 mg IVP Q6H PRN PRN Reason: Nausea/Vomiting Last Admin: 04/27/17 03:47 Dose: 4 mg Pantoprazole Sodium (Protonix Inj) 20 mg IVP BID [facility] Last Admin: 04/29/17 09:13 Dose: 20 mg Saccharomyces Boulardii (Florastor) 250 mg PO BID [facility] Last Admin: 04/29/17 09:14 Dose: 250 mg Thiamine HCl (Vitamin B1 Tab) 100 mg PO DAILY [facility] Last Admin: 04/29/17 09:14 Dose: 100 mg - Labs Labs: 04/29/17 06:52 04/29/17 06:52 PT 14.0 SECONDS (9.7-12.2) H 04/25/17 06:25 INR 1.2 04/25/17 06:25 APTT 32 SECONDS (21-34) 04/25/17 06:25 - Constitutional Appears: Confused, Chronically Ill - Head Exam Head Exam: ATRAUMATIC, NORMAL INSPECTION - Eye Exam Eye Exam: EOMI, Normal appearance - Neck Exam Neck Exam: Normal Inspection. absent: Tenderness - Respiratory Exam Respiratory Exam: Rhonchi, Respiratory Distress - Cardiovascular Exam Cardiovascular Exam: Tachycardia, +S1 - GI/Abdominal Exam GI & Abdominal Exam: Soft. absent: Tenderness - Extremities Exam Extremities Exam: Tenderness. absent: Normal Inspection - Neurological Exam Neurological Exam: Awake, CN II-XII Intact - Skin Skin Exam: Dry, Warm Assessment and Plan (1) JIMBO (acute kidney injury) Status: Resolved (2) Acute pancreatitis Status: Acute (3) SBO (small bowel obstruction) Status: Acute (4) Schizophrenia Status: Acute - Assessment and Plan (Free Text) Plan: Decrease IV fluids Replete mag, K stop phoslo continue intermittent feeds
--- NOTE | 2017-04-29 13:50 | CP.PCM.PN ---
Subjective - Date & Time of Evaluation Date of Evaluation: 04/29/17 Time of Evaluation: 07:00 - Subjective Subjective: events noted urine output increasing Objective - Vital Signs/Intake and Output Vital Signs (last 24 hours): Temp Pulse Resp BP Pulse Ox 100.4 F H 86 21 121/89 100 04/29/17 03:43 04/29/17 10:04 04/29/17 10:04 04/29/17 10:04 04/29/17 06:04 Intake and Output: 04/29/17 04/29/17 06:59 18:59 Intake Total 1959.6 228.4 Output Total 1210 200 Balance 749.6 28.4 - Medications Medications: Current Medications Acetaminophen (Tylenol 650mg/20.3ml Solution Ud) 650 mg PO Q4 PRN PRN Reason: Temperature Last Admin: 04/29/17 00:53 Dose: 650 mg Ascorbic Acid (Vitamin C 500 Mg Tab) 500 mg PO DAILY [facility] Last Admin: 04/29/17 09:14 Dose: 500 mg Fluconazole (Diflucan Iv 200 Mg/100 Ml Ns) 100 mls @ 100 mls/hr IVPB DAILY [facility] Last Admin: 04/29/17 09:30 Dose: 100 mls/hr Potassium Chloride (Potassium Chloride 20 Meq/100 Ml) 20 meq in 100 mls @ 50 mls/hr IVPB ONCE ONE Stop: 04/29/17 15:14 Magnesium Sulfate/Dextrose (Magnesium Sulfate 1 Gm/100 Ml D5w) 1 gm in 100 mls @ 300 mls/hr IVPB Q30M [facility] Stop: 04/29/17 14:19 Sodium Chloride (Sodium Chloride 0.45%) 1,000 mls @ 50 mls/hr IV .Q20H [facility] Levetiracetam (Keppra) 250 mg PO BID [facility] Last Admin: 04/29/17 09:16 Dose: 250 mg Metoprolol Tartrate (Lopressor) 12.5 mg PO BID [facility] Last Admin: 04/29/17 09:14 Dose: 12.5 mg Morphine Sulfate (Morphine) 2 mg IV Q6 PRN PRN Reason: Pain, severe (8-10) Last Admin: 04/28/17 00:50 Dose: 2 mg Ondansetron HCl (Zofran Inj) 4 mg IVP Q6H PRN PRN Reason: Nausea/Vomiting Last Admin: 04/27/17 03:47 Dose: 4 mg Pantoprazole Sodium (Protonix Inj) 20 mg IVP BID [facility] Last Admin: 04/29/17 09:13 Dose: 20 mg Saccharomyces Boulardii (Florastor) 250 mg PO BID [facility] Last Admin: 04/29/17 09:14 Dose: 250 mg Thiamine HCl (Vitamin B1 Tab) 100 mg PO DAILY [facility] Last Admin: 04/29/17 09:14 Dose: 100 mg - Labs Labs: 04/29/17 06:52 04/29/17 06:52 PT 14.0 SECONDS (9.7-12.2) H 04/25/17 06:25 INR 1.2 04/25/17 06:25 APTT 32 SECONDS (21-34) 04/25/17 06:25 - Constitutional Appears: Confused, Chronically Ill - Head Exam Head Exam: NORMOCEPHALIC - Eye Exam Eye Exam: PERRL. absent: Scleral icterus - ENT Exam ENT Exam: Mucous Membranes Dry - Neck Exam Neck Exam: absent: Lymphadenopathy - Respiratory Exam Respiratory Exam: Decreased Breath Sounds - Cardiovascular Exam Cardiovascular Exam: REGULAR RHYTHM - GI/Abdominal Exam GI & Abdominal Exam: Distended, Soft - Rectal Exam Rectal Exam: Deferred - Exam Exam: NORMAL INSPECTION - Extremities Exam Extremities Exam: absent: Pedal Edema - Back Exam Back Exam: absent: CVA tenderness (L), CVA tenderness (R) - Neurological Exam Neurological Exam: Altered Assessment and Plan (1) Acute pancreatitis Status: Acute (2) Leucocytosis Status: Acute
--- NOTE | 2017-04-29 14:26 | CP.PCM.PN ---
Subjective - Date & Time of Evaluation Date of Evaluation: 04/29/17 Time of Evaluation: 14:23 - Subjective Subjective: Ms. Rivera was seen and examined at the bedside in ICU. She is awake with no verbal response. She remains restless in the chair but able to redirect accordingly. She is unable to follow simple commands. She also has the fine focal movements of her left hand. She is currently on AED therapy. There was no untoward events overnight. Objective - Vital Signs/Intake and Output Vital Signs (last 24 hours): Temp Pulse Resp BP Pulse Ox 100.4 F H 86 21 121/89 100 04/29/17 03:43 04/29/17 10:04 04/29/17 10:04 04/29/17 10:04 04/29/17 06:04 Intake and Output: 04/29/17 04/29/17 06:59 18:59 Intake Total 1959.6 228.4 Output Total 1210 200 Balance 749.6 28.4 - Medications Medications: Current Medications Acetaminophen (Tylenol 650mg/20.3ml Solution Ud) 650 mg PO Q4 PRN PRN Reason: Temperature Last Admin: 04/29/17 00:53 Dose: 650 mg Ascorbic Acid (Vitamin C 500 Mg Tab) 500 mg PO DAILY [facility] Last Admin: 04/29/17 09:14 Dose: 500 mg Fluconazole (Diflucan Iv 200 Mg/100 Ml Ns) 100 mls @ 100 mls/hr IVPB DAILY [facility] Last Admin: 04/29/17 09:30 Dose: 100 mls/hr Potassium Chloride (Potassium Chloride 20 Meq/100 Ml) 20 meq in 100 mls @ 50 mls/hr IVPB ONCE ONE Stop: 04/29/17 15:14 Sodium Chloride (Sodium Chloride 0.45%) 1,000 mls @ 50 mls/hr IV .Q20H [facility] Levetiracetam (Keppra) 250 mg PO BID [facility] Last Admin: 04/29/17 09:16 Dose: 250 mg Metoprolol Tartrate (Lopressor) 12.5 mg PO BID [facility] Last Admin: 04/29/17 09:14 Dose: 12.5 mg Morphine Sulfate (Morphine) 2 mg IV Q6 PRN PRN Reason: Pain, severe (8-10) Last Admin: 04/28/17 00:50 Dose: 2 mg Ondansetron HCl (Zofran Inj) 4 mg IVP Q6H PRN PRN Reason: Nausea/Vomiting Last Admin: 04/27/17 03:47 Dose: 4 mg Pantoprazole Sodium (Protonix Inj) 20 mg IVP BID [facility] Last Admin: 04/29/17 09:13 Dose: 20 mg Saccharomyces Boulardii (Florastor) 250 mg PO BID [facility] Last Admin: 04/29/17 09:14 Dose: 250 mg Thiamine HCl (Vitamin B1 Tab) 100 mg PO DAILY [facility] Last Admin: 04/29/17 09:14 Dose: 100 mg - Labs Labs: 04/29/17 06:52 04/29/17 06:52 PT 14.0 SECONDS (9.7-12.2) H 04/25/17 06:25 INR 1.2 04/25/17 06:25 APTT 32 SECONDS (21-34) 04/25/17 06:25 - Constitutional Appears: No Acute Distress - Head Exam Head Exam: NORMAL INSPECTION - Neurological Exam Neurological Exam: Awake Neuro motor strength exam: Left Upper Extremity: 5, Right Upper Extremity: 5, Left Lower Extremity: 5, Right Lower Extremity: 5 Additional comments: She is unable to answer or follow commands. Assessment and Plan (1) Focal seizure Assessment & Plan: Case discussed with Dr. Bryant, continue all current medical regimen. Pending EEG results. Status: Acute
[2017-04-29] MEDS: Magnesium Sulfate 1 gm in D5W 1 GM/100 ML BAG IVPB SCH ×3 (16:15→17:32)
[2017-04-30] MEDS: Sodium Chloride 0.45% 1,000 ML IV SCH (01:18)
[2017-04-30 06:46] LABS: BASO # 0.2 K/uL (0.0-0.2); BASO % 0.6 % (0.0-2.0); EOS % 0.1 % (0.0-4.0); HEMOGLOBIN 8.8 g/dL (11.0-16.0); LYMPH # 1.2 K/uL (1.0-4.3); LYMPH % 4.3 % (20.0-40.0); MEAN CELL VOLUME 88.9 fL (81.0-99.0); MEAN CORPUSCULAR HEMOGLOBIN 27.9 pg (27.0-31.0); MEAN CORPUSCULAR HGB CONC 31.4 g/dL (33.0-37.0); MEAN PLATELET VOLUME 10.5 fL (7.2-11.7); MONO # 1.4 K/uL (0.0-0.8); MONO % 5.3 % (0.0-10.0); NEUT # 24.7 K/uL (1.8-7.0); NEUT % 89.7 % (50.0-75.0); PLATELET COUNT 494 K/uL (130-400); RBC 3.17 Mil/uL (3.80-5.20); RED CELL DISTRIBUTION WIDTH 15.2 % (11.5-14.5); WHITE BLOOD COUNT 27.5 K/uL (4.8-10.8)
[2017-04-30 07:12] LABS: ALB/GLOB RATIO 0.9 (1.0-2.1); CALCIUM 8.6 mg/dl (8.6-10.4)
--- NOTE | 2017-04-30 08:44 | CP.PCM.PN ---
Subjective - Date & Time of Evaluation Date of Evaluation: 04/30/17 Time of Evaluation: 08:45 - Subjective Subjective: output 2700cc bp stable creatinine 1.4 k 3 sodium 148 awake comfortable on trach collar not responding to questions or commands ROS not obtainable.patient not talking Objective - Vital Signs/Intake and Output Vital Signs (last 24 hours): Temp Pulse Resp BP Pulse Ox 99.7 F H 131 H 60 H 137/84 96 04/30/17 04:00 04/30/17 06:04 04/30/17 06:04 04/30/17 06:04 04/30/17 06:04 Intake and Output: 04/30/17 04/30/17 06:59 18:59 Intake Total 600 Output Total 1250 Balance -650 - Medications Medications: Current Medications Acetaminophen (Tylenol 650mg/20.3ml Solution Ud) 650 mg PO Q4 PRN PRN Reason: Temperature Last Admin: 04/29/17 00:53 Dose: 650 mg Ascorbic Acid (Vitamin C 500 Mg Tab) 500 mg PO DAILY [facility] Last Admin: 04/29/17 09:14 Dose: 500 mg Fluconazole (Diflucan Iv 200 Mg/100 Ml Ns) 100 mls @ 100 mls/hr IVPB DAILY [facility] Last Admin: 04/29/17 09:30 Dose: 100 mls/hr Sodium Chloride (Sodium Chloride 0.45%) 1,000 mls @ 50 mls/hr IV .Q20H [facility] Last Admin: 04/30/17 01:18 Dose: 50 mls/hr Potassium Chloride (Potassium Chloride 20 Meq/100 Ml) 20 meq in 100 mls @ 50 mls/hr IVPB ONCE ONE Stop: 04/30/17 10:12 Potassium Chloride (Potassium Chloride 20 Meq/100 Ml) 20 meq in 100 mls @ 50 mls/hr IVPB ONCE ONE Stop: 04/30/17 12:13 Levetiracetam (Keppra) 250 mg PO BID [facility] Last Admin: 04/29/17 17:51 Dose: 250 mg Metoclopramide HCl (Reglan) 10 mg IVP DAILY@ONCE PRN PRN Reason: Nausea/Vomiting Last Admin: 04/30/17 01:19 Dose: 10 mg Metoclopramide HCl (Reglan) 10 mg IVP Q4 PRN PRN Reason: Nausea/Vomiting Metoprolol Tartrate (Lopressor) 12.5 mg PO BID [facility] Last Admin: 04/29/17 17:30 Dose: 12.5 mg Morphine Sulfate (Morphine) 2 mg IV Q6 PRN PRN Reason: Pain, severe (8-10) Last Admin: 04/28/17 00:50 Dose: 2 mg Ondansetron HCl (Zofran Inj) 4 mg IVP Q6H PRN PRN Reason: Nausea/Vomiting Last Admin: 04/29/17 16:14 Dose: 4 mg Pantoprazole Sodium (Protonix Inj) 20 mg IVP BID [facility] Last Admin: 04/29/17 17:52 Dose: 20 mg Saccharomyces Boulardii (Florastor) 250 mg PO BID [facility] Last Admin: 04/29/17 17:51 Dose: 250 mg Thiamine HCl (Vitamin B1 Tab) 100 mg PO DAILY [facility] Last Admin: 04/29/17 09:14 Dose: 100 mg - Labs Labs: 04/30/17 06:39 04/30/17 06:39 PT 14.0 SECONDS (9.7-12.2) H 04/25/17 06:25 INR 1.2 04/25/17 06:25 APTT 32 SECONDS (21-34) 04/25/17 06:25 - Constitutional Appears: Non-toxic, No Acute Distress - Respiratory Exam Respiratory Exam: Clear to Ausculation Bilateral. absent: Accessory Muscle Use - Cardiovascular Exam Cardiovascular Exam: REGULAR RHYTHM - GI/Abdominal Exam GI & Abdominal Exam: Soft. absent: Distended, Tenderness - Exam Additional comments: claros in place - Extremities Exam Extremities Exam: absent: Calf Tenderness - Back Exam Back Exam: absent: CVA tenderness (L), CVA tenderness (R) Additional comments: no pre sacral edema - Skin Skin Exam: Dry Assessment and Plan (1) Acute pancreatitis Status: Acute (2) Schizophrenia Status: Acute - Assessment and Plan (Free Text) Plan: maintain iv fluids increase rate supplement k continue supportive care
--- NOTE | 2017-04-30 08:48 | CP.PCM.PN ---
<Suni Wade - Last Filed: 04/30/17 20:02> Subjective - Date & Time of Evaluation Date of Evaluation: 04/30/17 Time of Evaluation: 07:00 - Subjective Subjective: Medicine Progress Note: Patient is seen and examined in room. Patient is non verbal and looks comfortable and not in pain. Per nurse no acute events overnight. Objective - Vital Signs/Intake and Output Vital Signs (last 24 hours): Temp Pulse Resp BP Pulse Ox 99.7 F H 131 H 60 H 137/84 96 04/30/17 04:00 04/30/17 06:04 04/30/17 06:04 04/30/17 06:04 04/30/17 06:04 Intake and Output: 04/30/17 04/30/17 06:59 18:59 Intake Total 600 Output Total 1250 Balance -650 - Medications Medications: Current Medications Acetaminophen (Tylenol 650mg/20.3ml Solution Ud) 650 mg PO Q4 PRN PRN Reason: Temperature Last Admin: 04/29/17 00:53 Dose: 650 mg Ascorbic Acid (Vitamin C 500 Mg Tab) 500 mg PO DAILY [facility] Last Admin: 04/29/17 09:14 Dose: 500 mg Fluconazole (Diflucan Iv 200 Mg/100 Ml Ns) 100 mls @ 100 mls/hr IVPB DAILY [facility] Last Admin: 04/29/17 09:30 Dose: 100 mls/hr Sodium Chloride (Sodium Chloride 0.45%) 1,000 mls @ 50 mls/hr IV .Q20H [facility] Last Admin: 04/30/17 01:18 Dose: 50 mls/hr Potassium Chloride (Potassium Chloride 20 Meq/100 Ml) 20 meq in 100 mls @ 50 mls/hr IVPB ONCE ONE Stop: 04/30/17 10:12 Potassium Chloride (Potassium Chloride 20 Meq/100 Ml) 20 meq in 100 mls @ 50 mls/hr IVPB ONCE ONE Stop: 04/30/17 12:13 Levetiracetam (Keppra) 250 mg PO BID [facility] Last Admin: 04/29/17 17:51 Dose: 250 mg Metoclopramide HCl (Reglan) 10 mg IVP DAILY@ONCE PRN PRN Reason: Nausea/Vomiting Last Admin: 04/30/17 01:19 Dose: 10 mg Metoclopramide HCl (Reglan) 10 mg IVP Q4 PRN PRN Reason: Nausea/Vomiting Metoprolol Tartrate (Lopressor) 12.5 mg PO BID [facility] Last Admin: 04/29/17 17:30 Dose: 12.5 mg Morphine Sulfate (Morphine) 2 mg IV Q6 PRN PRN Reason: Pain, severe (8-10) Last Admin: 04/28/17 00:50 Dose: 2 mg Ondansetron HCl (Zofran Inj) 4 mg IVP Q6H PRN PRN Reason: Nausea/Vomiting Last Admin: 04/29/17 16:14 Dose: 4 mg Pantoprazole Sodium (Protonix Inj) 20 mg IVP BID [facility] Last Admin: 04/29/17 17:52 Dose: 20 mg Saccharomyces Boulardii (Florastor) 250 mg PO BID [facility] Last Admin: 04/29/17 17:51 Dose: 250 mg Thiamine HCl (Vitamin B1 Tab) 100 mg PO DAILY [facility] Last Admin: 04/29/17 09:14 Dose: 100 mg - Labs Labs: 04/30/17 06:39 04/30/17 06:39 PT 14.0 SECONDS (9.7-12.2) H 04/25/17 06:25 INR 1.2 04/25/17 06:25 APTT 32 SECONDS (21-34) 04/25/17 06:25 - Constitutional Appears: No Acute Distress, Chronically Ill - Head Exam Head Exam: ATRAUMATIC, NORMAL INSPECTION - Eye Exam Eye Exam: EOMI, Normal appearance - ENT Exam Additional comments: trach in place - Respiratory Exam Respiratory Exam: NORMAL BREATHING PATTERN - Cardiovascular Exam Cardiovascular Exam: Tachycardia, REGULAR RHYTHM, +S1, +S2 - GI/Abdominal Exam GI & Abdominal Exam: Soft, Tenderness - Extremities Exam Extremities Exam: Normal Inspection - Neurological Exam Neurological Exam: Alert - Skin Skin Exam: Warm Assessment and Plan - Assessment and Plan (Free Text) Assessment: (1) SMAS (superior mesenteric artery syndrome) Surgery Consult: Dr. [place]. 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 Started patient on Reglan IV every 6 hours, restarting tube feeds via jejunostomy at low rates and will escalate slowly. (2) urinary tract yeast infection continue fluconazole (3) Gastric ulcer protonix given 80mg IV daily. (4) Renal failure currently on Dialysis and seen by [facility], Dr. Saenz[facility]. (5) Mental retardation patient is non verbal. (6) Schizophrenia Haldol given for agitation. Case Management Consult for LTAC placement. Discussed case with Dr. Amy Wade PGY-1 <Mauri Reyes Jr. - Last Filed: 05/05/17 19:18> Objective - Vital Signs/Intake and Output Vital Signs (last 24 hours): Temp Pulse Resp BP Pulse Ox 99.2 F 116 H 16 99/69 L 100 05/05/17 16:00 05/05/17 17:00 05/05/17 17:00 05/05/17 14:10 05/05/17 17:00 Intake and Output: 05/05/17 05/06/17 18:59 06:59 Intake Total 2171.3 Output Total 1310 Balance 861.3 - Medications Medications: Current Medications Acetaminophen (Tylenol 650mg/20.3ml Solution Ud) 650 mg PO Q4 PRN PRN Reason: Temperature Last Admin: 05/02/17 02:00 Dose: 650 mg Fluconazole (Diflucan Iv 200 Mg/100 Ml Ns) 100 mls @ 100 mls/hr IVPB DAILY [facility] Last Admin: 05/05/17 10:58 Dose: 100 mls/hr Cefepime HCl 1 gm/ Dextrose 50 mls @ 100 mls/hr IVPB DAILY [facility] Last Admin: 05/05/17 10:58 Dose: 100 mls/hr Levetiracetam 500 mg/ Sodium (Chloride) 105 mls @ 420 mls/hr IVPB Q12H [facility] Last Admin: 05/05/17 10:58 Dose: 420 mls/hr Propofol (Diprivan) 1,000 mg in 100 mls @ 1.905 mls/hr IV .Q24H PRN; Protocol; 5 MCG/KG/MIN PRN Reason: TITRATE PER MD ORDER Last Admin: 05/05/17 01:15 Dose: 15 mcg/kg/min, 5.716 mls/hr Linezolid (Zyvox 600mg/300ml D5w) 600 mg in 300 mls @ 200 mls/hr IVPB Q12 [facility] Last Admin: 05/05/17 10:59 Dose: 200 mls/hr Potassium Chloride/Dextrose/Sod Cl (Potassium Chl 20 Meq In D5-1/2ns) 1,000 mls @ 60 mls/hr IV .[id number] [facility] Last Admin: 05/05/17 18:40 Dose: Not Given Lorazepam (Ativan) 0.5 mg IVP Q6H PRN PRN Reason: Anxiety Metoprolol Tartrate (Lopressor) 5 mg IVP Q6H [facility] Last Admin: 05/05/17 18:40 Dose: Not Given Metoprolol Tartrate (Lopressor) 50 mg PO BID [facility] Last Admin: 05/05/17 18:39 Dose: 50 mg Multivitamins/Vitamin C (Multi-Delyn Liquid) 5 ml PO DAILY [facility] Last Admin: 05/05/17 10:59 Dose: 5 ml Pantoprazole Sodium (Protonix Inj) 20 mg IVP BID [facility] Last Admin: 05/05/17 18:39 Dose: 20 mg Quetiapine Fumarate (Seroquel) 200 mg PO BID [facility] Last Admin: 05/05/17 18:39 Dose: 200 mg - Labs Labs: 05/05/17 06:29 05/05/17 06:28 PT 14.0 SECONDS (9.7-12.2) H 04/25/17 06:25 INR 1.2 04/25/17 06:25 APTT 32 SECONDS (21-34) 04/25/17 06:25 Attending/Attestation - Attestation I have personally seen and examined this patient.: Yes I have fully participated in the care of the patient.: Yes I have reviewed all pertinent clinical information, including history, physical exam and plan: Yes Notes (Text): 05/05/17 19:18 Agree with resident note and plan of care
[2017-04-30] MEDS: Fluconazole IV 200mg/100 ml NS 100 ML IVPB SCH (09:34)
[2017-04-30] MEDS: Saccharomyces Boulardi 250 mg Cap PO SCH ×2 (09:38→18:32)
[2017-04-30 10:13] LABS: BANDS 1 % (0-2); LYMPHOCYTE 4 % (20-40); MONOCYTE 8 % (0-10); NEUTROPHIL 87 % (50-75); TOTAL CELLS COUNTED 100
[2017-04-30 10:14] LABS: PLATELET ESTIMATE SLIGHTLY INCREASED (NORMAL)
[2017-04-30 10:15] LABS: ANISOCYTOSIS SLIGHT; LARGE PLATELETS PRESENT; OVALOCYTES SLIGHT; POIKILOCYTOSIS SLIGHT; TEARDROP CELLS SLIGHT
[2017-04-30] MEDS: Potassium Chloride 20 MEQ in Sodium Chloride 0.45% 1,000 ML IV SCH ×2 (11:30→22:28)
[2017-04-30] MEDS: Multiple Vitamins Oral Solution PO SCH (13:52)
--- NOTE | 2017-04-30 15:26 | CP.CCUPN ---
CCU Subjective - Physician Review Events Since Last Encounter (Free Text): 04/30/17 15:06 Alert and more responsive today. No episodes of nausea and vomiting so far today. CCU Objective - Vital Signs / Intake & Output Vital Signs (Last 4 hours): Vital Signs Pulse Resp BP Pulse Ox 04/30/17 13:04 123 H 23 130/88 100 04/30/17 13:00 123 H 37 H 100 04/30/17 12:04 120 H 30 H 131/90 100 04/30/17 12:00 117 H 35 H 100 Intake and Output (Last 8hrs): Intake & Output 04/30/17 04/30/17 04/30/17 06:59 14:59 22:59 Intake Total 400 570 Output Total 925 30 Balance -525 540 Intake: Intake, IV Amount 400 550 Left PICC 150 Left PICC #2 400 400 Tube Feeding 0 20 Output: Drainage 30 Right Lower Abdomen 30 Urine 925 Urethral (Claros) 925 Emesis 0 - Physical Exam Physical Exam Limitations: Positive for: Altered Mental Status Head: Positive for: Atraumatic, Normocephalic. Negative for: Tenderness Pupils: Positive for: PERRL Extroacular Muscles: Positive for: EOMI Mouth: Positive for: Moist Mucous Membranes. Negative for: Dry, Drooling Nose (External): Positive for: Other (NGT in place) Nose (Internal): Positive for: Normal Inspection, Moist Neck: Positive for: Normal Range of Motion. Negative for: JVD, Lymphadenopathy Respiratory/Chest: Positive for: Clear to Auscultation. Negative for: Respiratory Distress, Accessory Muscle Use Cardiovascular: Positive for: Regular Rate and Rhythm, Normal S1, S2 Abdomen: Positive for: Tenderness (mild tenderness of palpation. patient continues to move her arms towards hands on palpation). Negative for: Distention, Guarding Upper Extremity: Positive for: Normal Inspection, Normal ROM, Capillary Refill < 2s. Negative for: Edema Lower Extremity: Positive for: Normal Inspection. Negative for: Edema Neurological: Positive for: CN II-XII Intact Skin: Positive for: Warm, Pale Psychiatric: Positive for: Alert - Medications Active Medications: Active Medications Generic Name Dose Route Start Last Admin Trade Name Freq PRN Reason Stop Dose Admin Acetaminophen 650 mg 04/28/17 20:11 04/29/17 00:53 Tylenol 650mg/20.3ml Solution Ud PO 650 mg Q4 PRN Administration Temperature Fluconazole 100 mls @ 100 mls/hr 04/28/17 10:00 04/30/17 09:34 Diflucan Iv 200 Mg/100 Ml Ns IVPB 100 mls/hr DAILY [facility] Administration Potassium Chloride 20 meq/ 1,010 mls @ 75 mls/hr 04/30/17 09:00 04/30/17 11: 30 Sodium Chloride IV 75 mls/hr .[id number] [facility] Administration Levetiracetam 250 mg 04/23/17 18:00 04/30/17 09:38 Keppra PO 250 mg BID [facility] Administration Metoclopramide HCl 10 mg 04/30/17 12:00 Reglan IVP Q6 [facility] Metoprolol Tartrate 12.5 mg 04/26/17 18:00 04/30/17 09:38 Lopressor PO 12.5 mg BID [facility] Administration Multivitamins/Vitamin C 5 ml 04/30/17 12:00 04/30/17 13:52 Multi-Delyn Liquid PO 5 ml DAILY [facility] Administration Pantoprazole Sodium 20 mg 04/19/17 18:00 04/30/17 09:37 Protonix Inj IVP 20 mg BID [facility] Administration Saccharomyces Boulardii 250 mg 04/08/17 18:00 04/30/17 09:38 Florastor PO 250 mg BID [facility] Administration - Patient Studies Lab Studies: Microbiology Studies 04/28/17 20:00 Blood Culture - Preliminary Blood-Venous NO GROWTH AFTER 24 HOURS 04/28/17 20:00 Blood Culture - Preliminary Blood-Venous NO GROWTH AFTER 24 HOURS 04/24/17 13:00 Blood Culture - Final Blood NO GROWTH AFTER 5 DAYS Gram Stain - Final TEST NOT PERFORMED 04/24/17 12:45 Blood Culture - Final Blood NO GROWTH AFTER 5 DAYS Gram Stain - Final TEST NOT PERFORMED Lab Studies 04/30/17 04/30/17 04/30/17 Range/Units 11:26 06:39 06:39 WBC 27.5 H D (4.8-10.8) K/uL RBC 3.17 L (3.80-5.20) Mil/uL Hgb 8.8 L (11.0-16.0) g/dL Hct 28.2 L (34.0-47.0) % MCV 88.9 (81.0-99.0) fL MCH 27.9 (27.0-31.0) pg MCHC 31.4 L (33.0-37.0) g/dL RDW 15.2 H (11.5-14.5) % Plt Count 494 H D (130-400) K/uL MPV 10.5 (7.2-11.7) fL Neut % (Auto) 89.7 H (50.0-75.0) % Lymph % (Auto) 4.3 L (20.0-40.0) % [place] % (Auto) 5.3 (0.0-10.0) % Eos % (Auto) 0.1 (0.0-4.0) % Baso % (Auto) 0.6 (0.0-2.0) % Neut # 24.7 H (1.8-7.0) K/uL Lymph # 1.2 (1.0-4.3) K/uL [place] # 1.4 H (0.0-0.8) K/uL Eos # 0.0 (0.0-0.7) K/uL Baso # 0.2 (0.0-0.2) K/uL Neutrophils % (Manual) 87 H (50-75) % Band Neutrophils % 1 (0-2) % Lymphocytes % (Manual) 4 L (20-40) % Monocytes % (Manual) 8 (0-10) % Platelet Estimate Slightly increased H (NORMAL) Large Platelets Present Poikilocytosis (manual Slight Anisocytosis (manual) Slight Tear Drop Cells Slight Ovalocytes Slight Sodium 148 (132-148) mmol/L Potassium 3.0 L (3.6-5.2) mmol/L Chloride 116 H (98-107) mmol/L Carbon Dioxide 13 L (22-30) mmol/L Anion Gap 22 H (10-20) BUN 23 H (7-17) mg/dL Creatinine 1.4 H (0.7-1.2) mg/dL Est GFR ( Amer) 52 Est GFR (Non-Af Amer) 43 POC Glucose (mg/dL) 85 (65-110) mg/dL Random Glucose 83 (65-105) mg/dL Calcium 8.6 (8.6-10.4) mg/dl Magnesium 1.8 (1.6-2.3) mg/dL Total Bilirubin 0.7 (0.2-1.3) mg/dL AST 21 (14-36) U/L ALT 26 (9-52) U/L Alkaline Phosphatase 141 H (38-126) U/L Total Protein 6.4 (6.3-8.3) g/dL Albumin 3.0 L (3.5-5.0) g/dL Globulin 3.3 (2.2-3.9) gm/dL Albumin/Globulin Ratio 0.9 L (1.0-2.1) 04/30/17 04/29/17 04/29/17 Range/Units 06:06 23:39 18:02 WBC (4.8-10.8) K/uL RBC (3.80-5.20) Mil/uL Hgb (11.0-16.0) g/dL Hct (34.0-47.0) % MCV (81.0-99.0) fL MCH (27.0-31.0) pg MCHC (33.0-37.0) g/dL RDW (11.5-14.5) % Plt Count (130-400) K/uL MPV (7.2-11.7) fL Neut % (Auto) (50.0-75.0) % Lymph % (Auto) (20.0-40.0) % [place] % (Auto) (0.0-10.0) % Eos % (Auto) (0.0-4.0) % Baso % (Auto) (0.0-2.0) % Neut # (1.8-7.0) K/uL Lymph # (1.0-4.3) K/uL [place] # (0.0-0.8) K/uL Eos # (0.0-0.7) K/uL Baso # (0.0-0.2) K/uL Neutrophils % (Manual) (50-75) % Band Neutrophils % (0-2) % Lymphocytes % (Manual) (20-40) % Monocytes % (Manual) (0-10) % Platelet Estimate (NORMAL) Large Platelets Poikilocytosis (manual Anisocytosis (manual) Tear Drop Cells Ovalocytes Sodium (132-148) mmol/L Potassium (3.6-5.2) mmol/L Chloride (98-107) mmol/L Carbon Dioxide (22-30) mmol/L Anion Gap (10-20) BUN (7-17) mg/dL Creatinine (0.7-1.2) mg/dL Est GFR ( Amer) Est GFR (Non-Af Amer) POC Glucose (mg/dL) 81 84 97 (65-110) mg/dL Random Glucose (65-105) mg/dL Calcium (8.6-10.4) mg/dl Magnesium (1.6-2.3) mg/dL Total Bilirubin (0.2-1.3) mg/dL AST (14-36) U/L ALT (9-52) U/L Alkaline Phosphatase (38-126) U/L Total Protein (6.3-8.3) g/dL Albumin (3.5-5.0) g/dL Globulin (2.2-3.9) gm/dL Albumin/Globulin Ratio (1.0-2.1) Laboratory Results - last 24 hr 04/29/17 04/29/17 04/30/17 18:02 23:39 06:06 WBC RBC Hgb Hct MCV MCH MCHC RDW Plt Count MPV Neut % (Auto) Lymph % (Auto) [place] % (Auto) Eos % (Auto) Baso % (Auto) Neut # Lymph # [place] # Eos # Baso # Neutrophils % (Manual) Band Neutrophils % Lymphocytes % (Manual) Monocytes % (Manual) Platelet Estimate Large Platelets Poikilocytosis (manual Anisocytosis (manual) Tear Drop Cells Ovalocytes Sodium Potassium Chloride Carbon Dioxide Anion Gap BUN Creatinine Est GFR ( Amer) Est GFR (Non-Af Amer) POC Glucose (mg/dL) 97 84 81 Random Glucose Calcium Magnesium Total Bilirubin AST ALT Alkaline Phosphatase Total Protein Albumin Globulin Albumin/Globulin Ratio 04/30/17 04/30/17 04/30/17 06:39 06:39 11:26 WBC 27.5 H D RBC 3.17 L Hgb 8.8 L Hct 28.2 L MCV 88.9 MCH 27.9 MCHC 31.4 L RDW 15.2 H Plt Count 494 H D MPV 10.5 Neut % (Auto) 89.7 H Lymph % (Auto) 4.3 L [place] % (Auto) 5.3 Eos % (Auto) 0.1 Baso % (Auto) 0.6 Neut # 24.7 H Lymph # 1.2 [place] # 1.4 H Eos # 0.0 Baso # 0.2 Neutrophils % (Manual) 87 H Band Neutrophils % 1 Lymphocytes % (Manual) 4 L Monocytes % (Manual) 8 Platelet Estimate Slightly increased H Large Platelets Present Poikilocytosis (manual Slight Anisocytosis (manual) Slight Tear Drop Cells Slight Ovalocytes Slight Sodium 148 Potassium 3.0 L Chloride 116 H Carbon Dioxide 13 L Anion Gap 22 H BUN 23 H Creatinine 1.4 H Est GFR ( Amer) 52 Est GFR (Non-Af Amer) 43 POC Glucose (mg/dL) 85 Random Glucose 83 Calcium 8.6 Magnesium 1.8 Total Bilirubin 0.7 AST 21 ALT 26 Alkaline Phosphatase 141 H Total Protein 6.4 Albumin 3.0 L Globulin 3.3 Albumin/Globulin Ratio 0.9 L Fingerstick Blood Sugar Results: 84 Review of Systems - Review of Systems Systems not reviewed;Unavailable: Altered Mental Status (Patient only responds to her sisters.) Assessment/Plan (1) Acute pancreatitis Assessment and plan: Neuro: Alert, responsive, only verbal to her sisters. History of depression and schizophrenia but meds currently held. Pulm: No acute issues, breathing spontaneously on room air. CV: Hemodynamically stable. Continue metoprolol by mouth twice a day for persistent sinus tachycardia. Hem: Anemia of critical illness. Renal: No acute issues, urine output within normal limits, we will monitor. Endo: no acute issues. 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 Resolution of pancreatitis. Resolution of abdominal pain. Patient was having nausea and vomiting yesterday, Started patient on Reglan IV every 6 hours, restarting tube feeds via jejunostomy at low rates and will escalate slowly. If patient tolerates will have to start feeding patient via her mouth. Continue Protonix IV twice a day for ulcerative gastritis which was associated with her gastroparesis. ID: Continue fluconazole for urinary tract yeast infection. DVT proph - SCDs, anticoagulation held because of recent upper GI bleed. Will ambulate patient as much as possible. GI proph - Protonix twice a day claros for strict I/O's during acute illness Code status - full code Critical Care Time spent 35 minutes Multi-disciplinary rounds were performed with house staff, nursing, speech therapy, respiratory therapy, pharmacy and nutrition with integrated input from the primary team/attending and other consulting services. The documented time is cumulative and includes review of patient data/exams/labs/chart review and examination of the patient on rounds and throughout the day; time is exclusive of any procedures or teaching time. Current Visit: Yes Status: Acute
[2017-05-01] MEDS: Potassium Chloride 20 MEQ in Sodium Chloride 0.45% 1,000 ML IV SCH ×2 (03:30→17:34)
[2017-05-01 06:51] LABS: BASO # 0.2 K/uL (0.0-0.2); BASO % 0.9 % (0.0-2.0); EOS # 0.1 K/uL (0.0-0.7); EOS % 0.4 % (0.0-4.0); HEMOGLOBIN 8.9 g/dL (11.0-16.0); LYMPH % 9.2 % (20.0-40.0); MEAN CORPUSCULAR HEMOGLOBIN 28.7 pg (27.0-31.0); MEAN CORPUSCULAR HGB CONC 32.6 g/dL (33.0-37.0); MEAN PLATELET VOLUME 10.2 fL (7.2-11.7); MONO # 1.4 K/uL (0.0-0.8); MONO % 6.5 % (0.0-10.0); NEUT # 17.8 K/uL (1.8-7.0); PLATELET COUNT 495 K/uL (130-400); RBC 3.09 Mil/uL (3.80-5.20); RED CELL DISTRIBUTION WIDTH 15.2 % (11.5-14.5); WHITE BLOOD COUNT 21.4 K/uL (4.8-10.8)
[2017-05-01 07:08] LABS: ALB/GLOB RATIO 0.9 (1.0-2.1); ALBUMIN 2.9 g/dL (3.5-5.0); ALT/SGPT 19 U/L (9-52); AST/SGOT 18 U/L (14-36); BLOOD UREA NITROGEN 20 mg/dL (7-17); CALCIUM 8.4 mg/dl (8.6-10.4); GFR AFRICAN-AMERICAN > 60; GFR NON-AFRICAN AMERICAN 51
--- NOTE | 2017-05-01 07:41 | CP.PCM.PN ---
<Suni Wade - Last Filed: 05/01/17 21:06> Subjective - Date & Time of Evaluation Date of Evaluation: 05/01/17 Time of Evaluation: 07:00 - Subjective Subjective: Medicine Progress Note: Patient is seen and examined in room. Patient is non verbal and looks comfortable and not in pain. Per nurse no acute events overnight. Objective - Vital Signs/Intake and Output Vital Signs (last 24 hours): Temp Pulse Resp BP Pulse Ox 100.1 F H 112 H 34 H 137/96 H 100 05/01/17 04:00 05/01/17 07:03 05/01/17 07:03 05/01/17 07:03 05/01/17 07:03 Intake and Output: 05/01/17 05/01/17 06:59 18:59 Intake Total 1040 Output Total 810 Balance 230 - Medications Medications: Current Medications Acetaminophen (Tylenol 650mg/20.3ml Solution Ud) 650 mg PO Q4 PRN PRN Reason: Temperature Last Admin: 04/29/17 00:53 Dose: 650 mg Fluconazole (Diflucan Iv 200 Mg/100 Ml Ns) 100 mls @ 100 mls/hr IVPB DAILY [facility] Last Admin: 04/30/17 09:34 Dose: 100 mls/hr Potassium Chloride 20 meq/ (Sodium Chloride) 1,010 mls @ 75 mls/hr IV .[id number] [facility] Last Admin: 05/01/17 03:30 Dose: 75 mls/hr Levetiracetam (Keppra) 250 mg PO BID [facility] Last Admin: 04/30/17 18:32 Dose: 250 mg Metoclopramide HCl (Reglan) 10 mg IVP Q6 [facility] Last Admin: 05/01/17 06:15 Dose: 10 mg Metoprolol Tartrate (Lopressor) 12.5 mg PO BID [facility] Last Admin: 04/30/17 18:32 Dose: 12.5 mg Multivitamins/Vitamin C (Multi-Delyn Liquid) 5 ml PO DAILY [facility] Last Admin: 04/30/17 13:52 Dose: 5 ml Pantoprazole Sodium (Protonix Inj) 20 mg IVP BID [facility] Last Admin: 04/30/17 18:31 Dose: 20 mg Saccharomyces Boulardii (Florastor) 250 mg PO BID [facility] Last Admin: 04/30/17 18:32 Dose: 250 mg - Labs Labs: 05/01/17 06:38 05/01/17 06:40 PT 14.0 SECONDS (9.7-12.2) H 04/25/17 06:25 INR 1.2 04/25/17 06:25 APTT 32 SECONDS (21-34) 04/25/17 06:25 - Constitutional Appears: No Acute Distress, Chronically Ill - Head Exam Head Exam: ATRAUMATIC, NORMAL INSPECTION - Eye Exam Eye Exam: EOMI, Normal appearance - ENT Exam ENT Exam: Mucous Membranes Moist - Respiratory Exam Respiratory Exam: NORMAL BREATHING PATTERN - Cardiovascular Exam Cardiovascular Exam: REGULAR RHYTHM - GI/Abdominal Exam GI & Abdominal Exam: Soft, Tenderness, Normal Bowel Sounds - Neurological Exam Neurological Exam: Alert Assessment and Plan - Assessment and Plan (Free Text) Assessment: (1) SMAS (superior mesenteric artery syndrome) Surgery Consult: Dr. [place]. 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 (2) urinary tract yeast infection continue fluconazole (3) Gastric ulcer protonix given 80mg IV daily. (4) Renal failure currently on Dialysis and seen by [facility], Dr. [facility]. (5) Mental retardation patient is non verbal. (6) Schizophrenia Haldol given for agitation. Case Management Consult for LTAC placement. Discussed case with Dr. Amy Wade PGY-1 <Mauri Reyes Jr. - Last Filed: 05/05/17 19:21> Objective - Vital Signs/Intake and Output Vital Signs (last 24 hours): Temp Pulse Resp BP Pulse Ox 99.2 F 116 H 16 99/69 L 100 05/05/17 16:00 05/05/17 17:00 05/05/17 17:00 05/05/17 14:10 05/05/17 17:00 Intake and Output: 05/05/17 05/06/17 18:59 06:59 Intake Total 2171.3 Output Total 1310 Balance 861.3 - Medications Medications: Current Medications Acetaminophen (Tylenol 650mg/20.3ml Solution Ud) 650 mg PO Q4 PRN PRN Reason: Temperature Last Admin: 05/02/17 02:00 Dose: 650 mg Fluconazole (Diflucan Iv 200 Mg/100 Ml Ns) 100 mls @ 100 mls/hr IVPB DAILY [facility] Last Admin: 05/05/17 10:58 Dose: 100 mls/hr Cefepime HCl 1 gm/ Dextrose 50 mls @ 100 mls/hr IVPB DAILY [facility] Last Admin: 05/05/17 10:58 Dose: 100 mls/hr Levetiracetam 500 mg/ Sodium (Chloride) 105 mls @ 420 mls/hr IVPB Q12H [facility] Last Admin: 05/05/17 10:58 Dose: 420 mls/hr Propofol (Diprivan) 1,000 mg in 100 mls @ 1.905 mls/hr IV .Q24H PRN; Protocol; 5 MCG/KG/MIN PRN Reason: TITRATE PER MD ORDER Last Admin: 05/05/17 01:15 Dose: 15 mcg/kg/min, 5.716 mls/hr Linezolid (Zyvox 600mg/300ml D5w) 600 mg in 300 mls @ 200 mls/hr IVPB Q12 [facility] Last Admin: 05/05/17 10:59 Dose: 200 mls/hr Potassium Chloride/Dextrose/Sod Cl (Potassium Chl 20 Meq In D5-1/2ns) 1,000 mls @ 60 mls/hr IV .[id number] [facility] Last Admin: 05/05/17 18:40 Dose: Not Given Lorazepam (Ativan) 0.5 mg IVP Q6H PRN PRN Reason: Anxiety Metoprolol Tartrate (Lopressor) 5 mg IVP Q6H [facility] Last Admin: 05/05/17 18:40 Dose: Not Given Metoprolol Tartrate (Lopressor) 50 mg PO BID [facility] Last Admin: 05/05/17 18:39 Dose: 50 mg Multivitamins/Vitamin C (Multi-Delyn Liquid) 5 ml PO DAILY [facility] Last Admin: 05/05/17 10:59 Dose: 5 ml Pantoprazole Sodium (Protonix Inj) 20 mg IVP BID [facility] Last Admin: 05/05/17 18:39 Dose: 20 mg Quetiapine Fumarate (Seroquel) 200 mg PO BID [facility] Last Admin: 05/05/17 18:39 Dose: 200 mg - Labs Labs: 05/05/17 06:29 05/05/17 06:28 PT 14.0 SECONDS (9.7-12.2) H 04/25/17 06:25 INR 1.2 04/25/17 06:25 APTT 32 SECONDS (21-34) 04/25/17 06:25 Attending/Attestation - Attestation I have personally seen and examined this patient.: Yes I have fully participated in the care of the patient.: Yes I have reviewed all pertinent clinical information, including history, physical exam and plan: Yes Notes (Text): 05/05/17 19:20 Agree with resident note and plan of care
[2017-05-01 09:25] LABS: ANISOCYTOSIS SLIGHT; BANDS 1 % (0-2); EOSINOPHIL 1 % (0-4); LYMPHOCYTE 11 % (20-40); MONOCYTE 4 % (0-10); NEUTROPHIL 83 % (50-75); PLATELET ESTIMATE SLIGHTLY INCREASED (NORMAL); TOTAL CELLS COUNTED 100
[2017-05-01 09:26] LABS: OVALOCYTES SLIGHT; POIKILOCYTOSIS SLIGHT; TEARDROP CELLS SLIGHT
[2017-05-01 09:27] LABS: TOXIC GRANULATION PRESENT
[2017-05-01] MEDS: Multiple Vitamins Oral Solution PO SCH (10:00)
[2017-05-01] MEDS: Saccharomyces Boulardi 250 mg Cap PO SCH ×2 (10:04→17:27)
[2017-05-01] MEDS: Fluconazole IV 200mg/100 ml NS 100 ML IVPB SCH (10:15)
--- NOTE | 2017-05-01 12:53 | CP.PCM.PN ---
Subjective - Date & Time of Evaluation Date of Evaluation: 05/01/17 Time of Evaluation: 12:49 - Subjective Subjective: General Surgery: Dr Mendez Pt S&E. Upright in chair, comfortable, no acute distress. Per nursing no further episodes of nausea or emesis. Pt has no abdominal pain at this time. Plans to restart tube feeds. possible PO if tolerates. Planning for LTACH placement underway. Objective - Vital Signs/Intake and Output Vital Signs (last 24 hours): Temp Pulse Resp BP Pulse Ox 98.5 F 102 H 29 H 132/95 H 99 05/01/17 12:00 05/01/17 12:03 05/01/17 12:03 05/01/17 12:03 05/01/17 12:03 Intake and Output: 05/01/17 05/01/17 06:59 18:59 Intake Total 1040 505 Output Total 810 10 Balance 230 495 - Medications Medications: Current Medications Acetaminophen (Tylenol 650mg/20.3ml Solution Ud) 650 mg PO Q4 PRN PRN Reason: Temperature Last Admin: 04/29/17 00:53 Dose: 650 mg Fluconazole (Diflucan Iv 200 Mg/100 Ml Ns) 100 mls @ 100 mls/hr IVPB DAILY [facility] Last Admin: 05/01/17 10:15 Dose: 100 mls/hr Potassium Chloride 20 meq/ (Sodium Chloride) 1,010 mls @ 75 mls/hr IV .[id number] [facility] Last Admin: 05/01/17 03:30 Dose: 75 mls/hr Levetiracetam (Keppra) 250 mg PO BID [facility] Last Admin: 05/01/17 10:04 Dose: 250 mg Metoclopramide HCl (Reglan) 10 mg IVP Q6 [facility] Last Admin: 05/01/17 11:26 Dose: 10 mg Metoprolol Tartrate (Lopressor) 12.5 mg PO BID [facility] Last Admin: 05/01/17 10:04 Dose: 12.5 mg Multivitamins/Vitamin C (Multi-Delyn Liquid) 5 ml PO DAILY [facility] Last Admin: 04/30/17 13:52 Dose: 5 ml Pantoprazole Sodium (Protonix Inj) 20 mg IVP BID [facility] Last Admin: 05/01/17 10:02 Dose: 20 mg Saccharomyces Boulardii (Florastor) 250 mg PO BID [facility] Last Admin: 05/01/17 10:04 Dose: 250 mg - Labs Labs: 05/01/17 06:38 05/01/17 06:40 PT 14.0 SECONDS (9.7-12.2) H 04/25/17 06:25 INR 1.2 04/25/17 06:25 APTT 32 SECONDS (21-34) 04/25/17 06:25 - Constitutional Appears: Non-toxic, No Acute Distress - ENT Exam ENT Exam: Mucous Membranes Moist - Respiratory Exam Respiratory Exam: absent: Respiratory Distress - Cardiovascular Exam Cardiovascular Exam: Tachycardia, REGULAR RHYTHM - GI/Abdominal Exam GI & Abdominal Exam: Soft. absent: Distended, Guarding, Rigid, Tenderness Additional comments: incision c/d/i j-tube ostomy in place c/d/i - Extremities Exam Extremities Exam: absent: Pedal Edema - Neurological Exam Neurological Exam: Awake. absent: Oriented x3 - Psychiatric Exam Psychiatric exam: Normal Affect - Skin Skin Exam: Normal Color Assessment and Plan - Assessment and Plan (Free Text) Assessment: 36F w/ history of severe gastroparesis; s/p gastrojejunostomy w/ bypass and feeding jejunostomy Plan: resume tube feeding if pt tolerates can trial liquids and adv as tolerated surgically we are OK with pt going to LTACH further mgmt per primary/ICU d/w Dr Andrea Camacho, PGY3
[2017-05-01] MEDS ORDERED: Potassium Phosphate 15 MMOLE in Dextrose 5% In Water 250 ML IVPB ONE (12:55)
[2017-05-01] MEDS ORDERED: Magnesium Sulfate 1 gm in D5W 1 GM/100 ML BAG IVPB ONE (12:55)
--- NOTE | 2017-05-01 16:15 | CP.PCM.PN ---
Subjective - Date & Time of Evaluation Date of Evaluation: 05/01/17 Time of Evaluation: 08:00 - Subjective Subjective: events noted iv rx in progress Objective - Vital Signs/Intake and Output Vital Signs (last 24 hours): Temp Pulse Resp BP Pulse Ox 98.5 F 111 H 32 H 129/90 98 05/01/17 12:00 05/01/17 15:03 05/01/17 15:03 05/01/17 15:03 05/01/17 15:03 Intake and Output: 05/01/17 05/01/17 06:59 18:59 Intake Total 1040 785 Output Total 810 10 Balance 230 775 - Medications Medications: Current Medications Acetaminophen (Tylenol 650mg/20.3ml Solution Ud) 650 mg PO Q4 PRN PRN Reason: Temperature Last Admin: 04/29/17 00:53 Dose: 650 mg Fluconazole (Diflucan Iv 200 Mg/100 Ml Ns) 100 mls @ 100 mls/hr IVPB DAILY [facility] Last Admin: 05/01/17 10:15 Dose: 100 mls/hr Potassium Chloride 20 meq/ (Sodium Chloride) 1,010 mls @ 75 mls/hr IV .[id number] [facility] Last Admin: 05/01/17 03:30 Dose: 75 mls/hr Potassium Phosphate 15 mmole/ (Dextrose) 255 mls @ 42.5 mls/hr IVPB ONCE ONE Stop: 05/01/17 18:54 Levetiracetam (Keppra) 250 mg PO BID [facility] Last Admin: 05/01/17 10:04 Dose: 250 mg Metoclopramide HCl (Reglan) 10 mg IVP Q6 [facility] Last Admin: 05/01/17 11:26 Dose: 10 mg Metoprolol Tartrate (Lopressor) 12.5 mg PO BID [facility] Last Admin: 05/01/17 10:04 Dose: 12.5 mg Multivitamins/Vitamin C (Multi-Delyn Liquid) 5 ml PO DAILY [facility] Last Admin: 05/01/17 10:00 Dose: 5 ml Pantoprazole Sodium (Protonix Inj) 20 mg IVP BID [facility] Last Admin: 05/01/17 10:02 Dose: 20 mg Saccharomyces Boulardii (Florastor) 250 mg PO BID [facility] Last Admin: 05/01/17 10:04 Dose: 250 mg - Labs Labs: 05/01/17 06:38 05/01/17 06:40 PT 14.0 SECONDS (9.7-12.2) H 04/25/17 06:25 INR 1.2 04/25/17 06:25 APTT 32 SECONDS (21-34) 04/25/17 06:25 - Constitutional Appears: Non-toxic, Chronically Ill - Head Exam Head Exam: NORMOCEPHALIC - Eye Exam Eye Exam: PERRL - ENT Exam ENT Exam: Mucous Membranes Dry - Neck Exam Neck Exam: absent: Lymphadenopathy - Respiratory Exam Respiratory Exam: Decreased Breath Sounds - Cardiovascular Exam Cardiovascular Exam: REGULAR RHYTHM - GI/Abdominal Exam GI & Abdominal Exam: Distended, Soft Assessment and Plan (1) Acute pancreatitis Status: Acute (2) Leucocytosis Status: Acute
--- NOTE | 2017-05-01 18:10 | CP.CCUPN ---
CCU Subjective - Physician Review Events Since Last Encounter (Free Text): 05/01/17 17:57 had one episode of vomiting early this morning. CCU Objective - Vital Signs / Intake & Output Vital Signs (Last 4 hours): Vital Signs Temp Pulse Resp BP Pulse Ox 05/01/17 17:03 138 H 37 H 127/89 85 L 05/01/17 17:00 143 H 36 H 133/93 H 90 L 05/01/17 16:03 133 H 32 H 133/93 H 97 05/01/17 16:00 99.3 F 107 H 35 H 05/01/17 15:03 111 H 32 H 129/90 98 05/01/17 15:00 116 H 32 H 98 05/01/17 14:03 107 H 34 H 132/98 H 100 05/01/17 14:00 106 H 30 H 100 Intake and Output (Last 8hrs): Intake & Output 05/01/17 05/01/17 05/01/17 06:59 14:59 22:59 Intake Total 700 700 137 Output Total 810 10 0 Balance -110 690 137 Weight 140 lb 0.12 oz Intake: Intake, IV Amount 600 650 117 Left PICC 600 650 117 Tube Feeding 100 50 20 Output: Drainage 60 10 Right Lower Abdomen 60 10 Urine 650 Urine, Voided 650 Emesis 100 0 0 Other: # Bowel Movements 0 0 0 - Physical Exam Head: Positive for: Atraumatic, Normocephalic. Negative for: Tenderness Pupils: Positive for: PERRL Extroacular Muscles: Positive for: EOMI Mouth: Positive for: Moist Mucous Membranes. Negative for: Dry, Drooling Nose (External): Positive for: Other (NGT in place) Nose (Internal): Positive for: Normal Inspection, Moist Neck: Positive for: Normal Range of Motion. Negative for: JVD, Lymphadenopathy Respiratory/Chest: Positive for: Clear to Auscultation. Negative for: Respiratory Distress, Accessory Muscle Use Cardiovascular: Positive for: Regular Rate and Rhythm, Normal S1, S2 Abdomen: Positive for: Tenderness (mild tenderness of palpation. patient continues to move her arms towards hands on palpation). Negative for: Distention, Guarding Upper Extremity: Positive for: Normal Inspection, Normal ROM, Capillary Refill < 2s. Negative for: Edema Lower Extremity: Positive for: Normal Inspection. Negative for: Edema Neurological: Positive for: CN II-XII Intact Skin: Positive for: Warm, Pale Psychiatric: Positive for: Alert - Medications Active Medications: Active Medications Generic Name Dose Route Start Last Admin Trade Name James PRN Reason Stop Dose Admin Acetaminophen 650 mg 04/28/17 20:11 04/29/17 00:53 Tylenol 650mg/20.3ml Solution Ud PO 650 mg Q4 PRN Administration Temperature Fluconazole 100 mls @ 100 mls/hr 04/28/17 10:00 05/01/17 10:15 Diflucan Iv 200 Mg/100 Ml Ns IVPB 100 mls/hr DAILY [facility] Administration Potassium Chloride 20 meq/ 1,010 mls @ 75 mls/hr 04/30/17 09:00 05/01/17 17: 34 Sodium Chloride IV Not Given .[id number] [facility] Potassium Phosphate 15 mmole/ 255 mls @ 42.5 mls/hr 05/01/17 12:55 05/01/17 14:00 Dextrose IVPB 05/01/17 18:54 42.5 mls/hr ONCE ONE Administration Levetiracetam 250 mg 04/23/17 18:00 05/01/17 17:33 Keppra PO 250 mg BID [facility] Administration Metoclopramide HCl 10 mg 04/30/17 12:00 05/01/17 17:30 Reglan IVP 10 mg Q6 [facility] Administration Metoprolol Tartrate 12.5 mg 04/26/17 18:00 05/01/17 17:27 Lopressor PO 12.5 mg BID [facility] Administration Multivitamins/Vitamin C 5 ml 04/30/17 12:00 05/01/17 10:00 Multi-Delyn Liquid PO 5 ml DAILY [facility] Administration Pantoprazole Sodium 20 mg 04/19/17 18:00 05/01/17 17:27 Protonix Inj IVP 20 mg BID [facility] Administration Saccharomyces Boulardii 250 mg 04/08/17 18:00 05/01/17 17:27 Florastor PO 250 mg BID [facility] Administration - Patient Studies Lab Studies: Microbiology Studies 04/30/17 08:19 Urine Culture - Final Urine,Catheterized No Growth (<1,000 CFU/ML) 04/28/17 20:00 Blood Culture - Preliminary Blood-Venous NO GROWTH AFTER 48 HOURS 04/28/17 20:00 Blood Culture - Preliminary Blood-Venous NO GROWTH AFTER 48 HOURS 04/30/17 15:10 Gram Stain - Final Trachasp Lab Studies 05/01/17 05/01/17 05/01/17 Range/Units 11:18 06:40 06:38 WBC 21.4 H (4.8-10.8) K/uL RBC 3.09 L (3.80-5.20) Mil/uL Hgb 8.9 L (11.0-16.0) g/dL Hct 27.2 L (34.0-47.0) % MCV 88.0 (81.0-99.0) fL MCH 28.7 (27.0-31.0) pg MCHC 32.6 L (33.0-37.0) g/dL RDW 15.2 H (11.5-14.5) % Plt Count 495 H (130-400) K/uL MPV 10.2 (7.2-11.7) fL Neut % (Auto) 83.0 H (50.0-75.0) % Lymph % (Auto) 9.2 L (20.0-40.0) % [place] % (Auto) 6.5 (0.0-10.0) % Eos % (Auto) 0.4 (0.0-4.0) % Baso % (Auto) 0.9 (0.0-2.0) % Neut # 17.8 H (1.8-7.0) K/uL Lymph # 2.0 (1.0-4.3) K/uL [place] # 1.4 H (0.0-0.8) K/uL Eos # 0.1 (0.0-0.7) K/uL Baso # 0.2 (0.0-0.2) K/uL Neutrophils % (Manual) 83 H (50-75) % Band Neutrophils % 1 (0-2) % Lymphocytes % (Manual) 11 L (20-40) % Monocytes % (Manual) 4 (0-10) % Eosinophils % (Manual) 1 (0-4) % Toxic Granulation Present Platelet Estimate Slightly increased H (NORMAL) Poikilocytosis (manual Slight Anisocytosis (manual) Slight Tear Drop Cells Slight Ovalocytes Slight Sodium 149 H (132-148) mmol/L Potassium 3.4 L (3.6-5.2) mmol/L Chloride 117 H (98-107) mmol/L Carbon Dioxide 20 L (22-30) mmol/L Anion Gap 15 (10-20) BUN 20 H (7-17) mg/dL Creatinine 1.2 (0.7-1.2) mg/dL Est GFR ( Amer) > 60 Est GFR (Non-Af Amer) 51 POC Glucose (mg/dL) 91 (65-110) mg/dL Random Glucose 100 (65-105) mg/dL Calcium 8.4 L (8.6-10.4) mg/dl Phosphorus 2.4 L (2.5-4.5) mg/dL Magnesium 1.5 L (1.6-2.3) mg/dL Total Bilirubin 0.7 (0.2-1.3) mg/dL AST 18 (14-36) U/L ALT 19 (9-52) U/L Alkaline Phosphatase 122 (38-126) U/L Total Protein 6.2 L (6.3-8.3) g/dL Albumin 2.9 L (3.5-5.0) g/dL Globulin 3.3 (2.2-3.9) gm/dL Albumin/Globulin Ratio 0.9 L (1.0-2.1) C. difficile Ag & Toxin (NEGATIVE) 05/01/17 04/30/17 04/30/17 Range/Units 06:30 Unknown 23:25 WBC (4.8-10.8) K/uL RBC (3.80-5.20) Mil/uL Hgb (11.0-16.0) g/dL Hct (34.0-47.0) % MCV (81.0-99.0) fL MCH (27.0-31.0) pg MCHC (33.0-37.0) g/dL RDW (11.5-14.5) % Plt Count (130-400) K/uL MPV (7.2-11.7) fL Neut % (Auto) (50.0-75.0) % Lymph % (Auto) (20.0-40.0) % [place] % (Auto) (0.0-10.0) % Eos % (Auto) (0.0-4.0) % Baso % (Auto) (0.0-2.0) % Neut # (1.8-7.0) K/uL Lymph # (1.0-4.3) K/uL [place] # (0.0-0.8) K/uL Eos # (0.0-0.7) K/uL Baso # (0.0-0.2) K/uL Neutrophils % (Manual) (50-75) % Band Neutrophils % (0-2) % Lymphocytes % (Manual) (20-40) % Monocytes % (Manual) (0-10) % Eosinophils % (Manual) (0-4) % Toxic Granulation Platelet Estimate (NORMAL) Poikilocytosis (manual Anisocytosis (manual) Tear Drop Cells Ovalocytes Sodium (132-148) mmol/L Potassium (3.6-5.2) mmol/L Chloride (98-107) mmol/L Carbon Dioxide (22-30) mmol/L Anion Gap (10-20) BUN (7-17) mg/dL Creatinine (0.7-1.2) mg/dL Est GFR ( Amer) Est GFR (Non-Af Amer) POC Glucose (mg/dL) 104 92 (65-110) mg/dL Random Glucose (65-105) mg/dL Calcium (8.6-10.4) mg/dl Phosphorus (2.5-4.5) mg/dL Magnesium (1.6-2.3) mg/dL Total Bilirubin (0.2-1.3) mg/dL AST (14-36) U/L ALT (9-52) U/L Alkaline Phosphatase (38-126) U/L Total Protein (6.3-8.3) g/dL Albumin (3.5-5.0) g/dL Globulin (2.2-3.9) gm/dL Albumin/Globulin Ratio (1.0-2.1) C. difficile Ag & Toxin Negative (NEGATIVE) Laboratory Results - last 24 hr 04/30/17 04/30/17 05/01/17 23:25 Unknown 06:30 WBC RBC Hgb Hct MCV MCH MCHC RDW Plt Count MPV Neut % (Auto) Lymph % (Auto) [place] % (Auto) Eos % (Auto) Baso % (Auto) Neut # Lymph # [place] # Eos # Baso # Neutrophils % (Manual) Band Neutrophils % Lymphocytes % (Manual) Monocytes % (Manual) Eosinophils % (Manual) Toxic Granulation Platelet Estimate Poikilocytosis (manual Anisocytosis (manual) Tear Drop Cells Ovalocytes Sodium Potassium Chloride Carbon Dioxide Anion Gap BUN Creatinine Est GFR ( Amer) Est GFR (Non-Af Amer) POC Glucose (mg/dL) 92 104 Random Glucose Calcium Phosphorus Magnesium Total Bilirubin AST ALT Alkaline Phosphatase Total Protein Albumin Globulin Albumin/Globulin Ratio C. difficile Ag & Toxin Negative 05/01/17 05/01/17 05/01/17 06:38 06:40 11:18 WBC 21.4 H RBC 3.09 L Hgb 8.9 L Hct 27.2 L MCV 88.0 MCH 28.7 MCHC 32.6 L RDW 15.2 H Plt Count 495 H MPV 10.2 Neut % (Auto) 83.0 H Lymph % (Auto) 9.2 L [place] % (Auto) 6.5 Eos % (Auto) 0.4 Baso % (Auto) 0.9 Neut # 17.8 H Lymph # 2.0 [place] # 1.4 H Eos # 0.1 Baso # 0.2 Neutrophils % (Manual) 83 H Band Neutrophils % 1 Lymphocytes % (Manual) 11 L Monocytes % (Manual) 4 Eosinophils % (Manual) 1 Toxic Granulation Present Platelet Estimate Slightly increased H Poikilocytosis (manual Slight Anisocytosis (manual) Slight Tear Drop Cells Slight Ovalocytes Slight Sodium 149 H Potassium 3.4 L Chloride 117 H Carbon Dioxide 20 L Anion Gap 15 BUN 20 H Creatinine 1.2 Est GFR ( Amer) > 60 Est GFR (Non-Af Amer) 51 POC Glucose (mg/dL) 91 Random Glucose 100 Calcium 8.4 L Phosphorus 2.4 L Magnesium 1.5 L Total Bilirubin 0.7 AST 18 ALT 19 Alkaline Phosphatase 122 Total Protein 6.2 L Albumin 2.9 L Globulin 3.3 Albumin/Globulin Ratio 0.9 L C. difficile Ag & Toxin Fingerstick Blood Sugar Results: 91 Review of Systems - Review of Systems Systems not reviewed;Unavailable: Altered Mental Status Assessment/Plan (1) Acute pancreatitis Assessment and plan: Neuro: Alert, responsive, only verbal to her sisters. History of depression and schizophrenia but meds currently held. Pulm: No acute issues, breathing spontaneously on room air. CV: Hemodynamically stable. Continue metoprolol by mouth twice a day for persistent sinus tachycardia. Hem: Anemia of critical illness. Renal: No acute issues, urine output within normal limits, we will monitor. Endo: no acute issues. 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 Resolution of pancreatitis. Resolution of abdominal pain. Patient is having nausea and vomiting which improved with Reglan IV every 6 hours, but patient still vomits when tube feeding rate exceeds 10ml/hr. Will do Small Bowel series with contrast PO and through jejunostomy to assess GI tract. Surgery following. GI re-consulted, possible EGD maybe needed. Considering Dumping Syndrome or Afferent Loop Syndrome. Continue Protonix IV twice a day for ulcerative gastritis which was associated with her gastroparesis. ID: Continue fluconazole for candiduria for 14 days. DVT proph - SCDs, anticoagulation held because of recent upper GI bleed. Will ambulate patient as much as possible. GI proph - Protonix twice a day claros for strict I/O's during acute illness Code status - full code Critical Care Time spent 35 minutes Multi-disciplinary rounds were performed with house staff, nursing, speech therapy, respiratory therapy, pharmacy and nutrition with integrated input from the primary team/attending and other consulting services. The documented time is cumulative and includes review of patient data/exams/labs/chart review and examination of the patient on rounds and throughout the day; time is exclusive of any procedures or teaching time. Current Visit: Yes Status: Acute
[2017-05-02] MEDS: Potassium Chloride 20 MEQ in Sodium Chloride 0.45% 1,000 ML IV SCH ×2 (01:30→15:31)
[2017-05-02] MEDS: Acetaminophen 650mg/20.3ml solution UD PO PRN (02:00)
[2017-05-02 06:04] LABS: BASO # 0.1 K/uL (0.0-0.2); BASO % 0.5 % (0.0-2.0); EOS # 0.2 K/uL (0.0-0.7); EOS % 0.9 % (0.0-4.0); HEMOGLOBIN 8.4 g/dL (11.0-16.0); LYMPH % 10.5 % (20.0-40.0); MEAN CELL VOLUME 86.4 fL (81.0-99.0); MEAN CORPUSCULAR HEMOGLOBIN 28.1 pg (27.0-31.0); MEAN CORPUSCULAR HGB CONC 32.5 g/dL (33.0-37.0); MONO # 1.5 K/uL (0.0-0.8); MONO % 7.7 % (0.0-10.0); NEUT # 15.4 K/uL (1.8-7.0); NEUT % 80.4 % (50.0-75.0); RBC 2.98 Mil/uL (3.80-5.20); RED CELL DISTRIBUTION WIDTH 15.2 % (11.5-14.5); WHITE BLOOD COUNT 19.1 K/uL (4.8-10.8)
[2017-05-02 06:31] LABS: ALB/GLOB RATIO 0.9 (1.0-2.1); ALBUMIN 2.7 g/dL (3.5-5.0); ALT/SGPT 26 U/L (9-52); AST/SGOT 21 U/L (14-36); BLOOD UREA NITROGEN 17 mg/dL (7-17); GFR AFRICAN-AMERICAN > 60; GFR NON-AFRICAN AMERICAN > 60
[2017-05-02] MEDS ORDERED: Iohexol 240 200 ML ONE (09:01)
[2017-05-02] MEDS: Saccharomyces Boulardi 250 mg Cap PO SCH ×2 (09:58→17:20)
[2017-05-02] MEDS: Multiple Vitamins Oral Solution PO SCH (10:00)
[2017-05-02] MEDS: Fluconazole IV 200mg/100 ml NS 100 ML IVPB SCH (10:31)
--- NOTE | 2017-05-02 10:31 | CP.PCM.PN ---
<Katheryn Silveira - Last Filed: 05/02/17 11:32> Subjective - Date & Time of Evaluation Date of Evaluation: 05/02/17 Time of Evaluation: 10:30 - Subjective Subjective: GI Fellow PGY4 Progress Note Pt seen and evaluated at bedside, pt restless overnight with fever and per nursing unable to tolerate TF above 10cc/hr with nonbloody bilious emesis. No BM since surgery POD#14. ROS: A 12pt ROS unable to be obtained as pt nonverbal Objective - Vital Signs/Intake and Output Vital Signs (last 24 hours): Temp Pulse Resp BP Pulse Ox 99.8 F H 139 H 37 H 129/91 H 93 L 05/02/17 04:00 05/02/17 07:04 05/02/17 07:04 05/02/17 07:04 05/02/17 07:04 Intake and Output: 05/02/17 05/02/17 06:59 18:59 Intake Total 901 75 Output Total 0 0 Balance 901 75 - Medications Medications: Current Medications Acetaminophen (Tylenol 650mg/20.3ml Solution Ud) 650 mg PO Q4 PRN PRN Reason: Temperature Last Admin: 05/02/17 02:00 Dose: 650 mg Fluconazole (Diflucan Iv 200 Mg/100 Ml Ns) 100 mls @ 100 mls/hr IVPB DAILY [facility] Last Admin: 05/01/17 10:15 Dose: 100 mls/hr Potassium Chloride 20 meq/ (Sodium Chloride) 1,010 mls @ 75 mls/hr IV .[id number] [facility] Last Admin: 05/02/17 01:30 Dose: 75 mls/hr Erythromycin 100 mg/ Sodium (Chloride) 100 mls @ 100 mls/hr IVPB Q8 [facility] Potassium Chloride (Potassium Chloride 20 Meq/100 Ml) 20 meq in 100 mls @ 50 mls/hr IVPB ONCE ONE Stop: 05/02/17 12:16 Levetiracetam (Keppra) 250 mg PO BID [facility] Last Admin: 05/01/17 17:33 Dose: 250 mg Metoprolol Tartrate (Lopressor) 2.5 mg IVP Q6 [facility] Multivitamins/Vitamin C (Multi-Delyn Liquid) 5 ml PO DAILY [facility] Last Admin: 05/01/17 10:00 Dose: 5 ml Pantoprazole Sodium (Protonix Inj) 20 mg IVP BID [facility] Last Admin: 05/02/17 09:59 Dose: 20 mg Saccharomyces Boulardii (Florastor) 250 mg PO BID [facility] Last Admin: 05/02/17 09:58 Dose: 250 mg - Labs Labs: 05/02/17 06:00 05/02/17 06:00 PT 14.0 SECONDS (9.7-12.2) H 04/25/17 06:25 INR 1.2 04/25/17 06:25 APTT 32 SECONDS (21-34) 04/25/17 06:25 - Constitutional Appears: Non-toxic, In Acute Distress - Head Exam Head Exam: ATRAUMATIC, NORMAL INSPECTION, NORMOCEPHALIC - Eye Exam Eye Exam: EOMI, Normal appearance, PERRL - ENT Exam ENT Exam: Mucous Membranes Dry - Respiratory Exam Respiratory Exam: Rhonchi, Respiratory Distress Additional comments: trach - Cardiovascular Exam Cardiovascular Exam: Tachycardia - GI/Abdominal Exam GI & Abdominal Exam: Soft, Hypoactive Bowel Sounds. 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 1. SMA syndrome- s/p gastro-jejunostomy as well as a feeding jejunostomy 2 weeks ago 2. Fever 3. pancreatitis-resolved 4. ARF s/p HD-improved, HD on hold 5. Aspiration Pneumonia, VDRF extubated s/p trach 6. Nausea and vomiting Plan: -Patient POD 14 now, gastro-jejunostomy as well as a feeding jejunostomy - She is unable to tolerate increased tube feeds, no bm since surgery - Follow up with small bowel series, will review with radiology - No GI bleeding noted - Continue PPI - Fevers, CT contrast shows no intra abdominal abscess, thickening of the cecum versus incomplete mixing of contrast, jessica lower lobe infiltration and trace pleural effusion - Continue abx and antifungal per primary team, no growth on cultures so far, except yeast on ua - Will continue to follow closely <AdaDov - Last Filed: 05/02/17 13:04> Objective - Vital Signs/Intake and Output Vital Signs (last 24 hours): Temp Pulse Resp BP Pulse Ox 99.8 F H 139 H 37 H 129/91 H 93 L 05/02/17 04:00 05/02/17 07:04 05/02/17 07:04 05/02/17 07:04 05/02/17 07:04 Intake and Output: 05/02/17 05/02/17 06:59 18:59 Intake Total 901 75 Output Total 0 0 Balance 901 75 - Medications Medications: Current Medications Acetaminophen (Tylenol 650mg/20.3ml Solution Ud) 650 mg PO Q4 PRN PRN Reason: Temperature Last Admin: 05/02/17 02:00 Dose: 650 mg Erythromycin Ethylsuccinate (Eryped) 250 mg PO TIDAC [facility] Fluconazole (Diflucan Iv 200 Mg/100 Ml Ns) 100 mls @ 100 mls/hr IVPB DAILY [facility] Last Admin: 05/02/17 10:31 Dose: 100 mls/hr Potassium Chloride 20 meq/ (Sodium Chloride) 1,010 mls @ 75 mls/hr IV .[id number] [facility] Last Admin: 05/02/17 01:30 Dose: 75 mls/hr Levetiracetam (Keppra) 250 mg PO BID [facility] Last Admin: 05/02/17 10:32 Dose: 250 mg Metoprolol Tartrate (Lopressor) 2.5 mg IVP Q6 [facility] Last Admin: 05/02/17 11:56 Dose: 2.5 mg Multivitamins/Vitamin C (Multi-Delyn Liquid) 5 ml PO DAILY [facility] Last Admin: 05/02/17 10:00 Dose: 5 ml Pantoprazole Sodium (Protonix Inj) 20 mg IVP BID [facility] Last Admin: 05/02/17 09:59 Dose: 20 mg Saccharomyces Boulardii (Florastor) 250 mg PO BID [facility] Last Admin: 05/02/17 09:58 Dose: 250 mg - Labs Labs: 05/02/17 06:00 05/02/17 06:00 PT 14.0 SECONDS (9.7-12.2) H 04/25/17 06:25 INR 1.2 04/25/17 06:25 APTT 32 SECONDS (21-34) 04/25/17 06:25 Attending/Attestation - Attestation I have personally seen and examined this patient.: Yes I have fully participated in the care of the patient.: Yes I have reviewed all pertinent clinical information, including history, physical exam and plan: Yes Notes (Text): 05/02/17 13:02 36 year old female with SMA syndrome s/p gastrojejunostomy, loop jejunostomy and feeding tube, recovering in ICU. 1. SMA syndrome 2. Vomiting Plan: -reviewed SBFT, contrast was injected through J tube, flowed retrograde to stomach rather than distally to ileum/colon -would ask surgery to re-evaluate positioning of J tube as it appears to be in the wrong limb of small bowel and likely needs to be adjusted
--- NOTE | 2017-05-02 10:44 | CP.PCM.PN ---
Subjective - Date & Time of Evaluation Date of Evaluation: 05/02/17 Time of Evaluation: 10:41 - Subjective Subjective: Same confused state UO- recorded at 650 ml Creat decreased to 1.0- JIMBO has eresolved K low- needs repletion Cannot obtain ROS Objective - Vital Signs/Intake and Output Vital Signs (last 24 hours): Temp Pulse Resp BP Pulse Ox 99.8 F H 139 H 37 H 129/91 H 93 L 05/02/17 04:00 05/02/17 07:04 05/02/17 07:04 05/02/17 07:04 05/02/17 07:04 Intake and Output: 05/02/17 05/02/17 06:59 18:59 Intake Total 901 75 Output Total 0 0 Balance 901 75 - Medications Medications: Current Medications Acetaminophen (Tylenol 650mg/20.3ml Solution Ud) 650 mg PO Q4 PRN PRN Reason: Temperature Last Admin: 05/02/17 02:00 Dose: 650 mg Fluconazole (Diflucan Iv 200 Mg/100 Ml Ns) 100 mls @ 100 mls/hr IVPB DAILY [facility] Last Admin: 05/02/17 10:31 Dose: 100 mls/hr Potassium Chloride 20 meq/ (Sodium Chloride) 1,010 mls @ 75 mls/hr IV .[id number] [facility] Last Admin: 05/02/17 01:30 Dose: 75 mls/hr Erythromycin 100 mg/ Sodium (Chloride) 100 mls @ 100 mls/hr IVPB Q8 [facility] Potassium Chloride (Potassium Chloride 20 Meq/100 Ml) 20 meq in 100 mls @ 50 mls/hr IVPB ONCE ONE Stop: 05/02/17 12:16 Levetiracetam (Keppra) 250 mg PO BID [facility] Last Admin: 05/02/17 10:32 Dose: 250 mg Metoprolol Tartrate (Lopressor) 2.5 mg IVP Q6 [facility] Multivitamins/Vitamin C (Multi-Delyn Liquid) 5 ml PO DAILY [facility] Last Admin: 05/01/17 10:00 Dose: 5 ml Pantoprazole Sodium (Protonix Inj) 20 mg IVP BID [facility] Last Admin: 05/02/17 09:59 Dose: 20 mg Saccharomyces Boulardii (Florastor) 250 mg PO BID [facility] Last Admin: 05/02/17 09:58 Dose: 250 mg - Labs Labs: 05/02/17 06:00 05/02/17 06:00 PT 14.0 SECONDS (9.7-12.2) H 04/25/17 06:25 INR 1.2 04/25/17 06:25 APTT 32 SECONDS (21-34) 04/25/17 06:25 - Constitutional Appears: No Acute Distress, Confused, Chronically Ill - Head Exam Head Exam: ATRAUMATIC, NORMAL INSPECTION - Eye Exam Eye Exam: EOMI, Normal appearance - Neck Exam Neck Exam: Full ROM, Normal Inspection - Respiratory Exam Respiratory Exam: Clear to Ausculation Bilateral, NORMAL BREATHING PATTERN - Cardiovascular Exam Cardiovascular Exam: Tachycardia, +S1 - GI/Abdominal Exam GI & Abdominal Exam: Soft, Tenderness - Extremities Exam Extremities Exam: Normal Inspection - Neurological Exam Neurological Exam: Alert, CN II-XII Intact - Skin Skin Exam: Dry, Warm Assessment and Plan (1) JIMBO (acute kidney injury) Status: Resolved (2) Acute pancreatitis Status: Acute (3) SBO (small bowel obstruction) Status: Acute (4) Schizophrenia Status: Acute - Assessment and Plan (Free Text) Plan: IV fluids Replete K No need for dialysis
--- NOTE | 2017-05-02 10:58 | CP.CCUPN ---
<VikashmelissaBipin - Last Filed: 05/02/17 10:58> CCU Subjective - Physician Review Subjective (Free Text): 04/28/17 12:14 Patient seen and examined at bedside CT unremarkable fever 101 today tolerating trach collar OOB to chair resume tube feeds family at bedside 04/29/17 08:29 Patient seen and examined at bedside trach, cpap, tolerating well OOB to chair cultured yesterday when high fever, will follow up family at bedside once episode of vomiting over night. 05/02/17 10:58 patient seen and examined at bedside stable for transfer to [facility] No need for further ICU care at this time CCU Objective - Vital Signs / Intake & Output Vital Signs (Last 4 hours): Vital Signs Pulse Resp BP Pulse Ox 05/02/17 07:04 139 H 37 H 129/91 H 93 L 05/02/17 07:00 135 H 33 H 92 L Intake and Output (Last 8hrs): Intake & Output 05/01/17 05/02/17 05/02/17 22:59 06:59 14:59 Intake Total 482 660 75 Output Total 80 0 0 Balance 402 660 75 Intake: Intake, IV Amount 402 600 75 Left PICC 402 600 75 Tube Feeding 80 60 0 Output: Drainage 80 Right Lower Abdomen 80 Emesis 0 0 0 Other: # Bowel Movements 0 0 0 - Physical Exam Head: Positive for: Atraumatic, Normocephalic. Negative for: Tenderness Pupils: Positive for: PERRL Extroacular Muscles: Positive for: EOMI Mouth: Positive for: Moist Mucous Membranes. Negative for: Dry, Drooling Nose (External): Positive for: Other (NGT in place) Nose (Internal): Positive for: Normal Inspection, Moist Neck: Positive for: Normal Range of Motion. Negative for: JVD, Lymphadenopathy Respiratory/Chest: Positive for: Clear to Auscultation. Negative for: Respiratory Distress, Accessory Muscle Use Cardiovascular: Positive for: Regular Rate and Rhythm, Normal S1, S2 Abdomen: Positive for: Tenderness (mild tenderness of palpation. patient continues to move her arms towards hands on palpation). Negative for: Distention, Guarding Upper Extremity: Positive for: Normal Inspection, Normal ROM, Capillary Refill < 2s. Negative for: Edema Lower Extremity: Positive for: Normal Inspection. Negative for: Edema Neurological: Positive for: CN II-XII Intact Skin: Positive for: Warm, Pale Psychiatric: Positive for: Alert - Medications Active Medications: Active Medications Generic Name Dose Route Start Last Admin Trade Name Freq PRN Reason Stop Dose Admin Acetaminophen 650 mg 04/28/17 20:11 05/02/17 02:00 Tylenol 650mg/20.3ml Solution Ud PO 650 mg Q4 PRN Administration Temperature Fluconazole 100 mls @ 100 mls/hr 04/28/17 10:00 05/02/17 10:31 Diflucan Iv 200 Mg/100 Ml Ns IVPB 100 mls/hr DAILY AGUSTIN Administration Potassium Chloride 20 meq/ 1,010 mls @ 75 mls/hr 04/30/17 09:00 05/02/17 01: 30 Sodium Chloride IV 75 mls/hr .[id number] AGUSTIN Administration Erythromycin 100 mg/ Sodium 100 mls @ 100 mls/hr 05/02/17 14:00 Chloride IVPB Q8 AGUSTIN Potassium Chloride 20 meq in 100 mls @ 50 mls/hr 05/02/17 11:00 Potassium Chloride 20 Meq/100 Ml IVPB 05/02/17 12:59 ONCE ONE Levetiracetam 250 mg 04/23/17 18:00 05/02/17 10:32 Keppra PO 250 mg BID AGUSTIN Administration Metoprolol Tartrate 2.5 mg 05/02/17 12:00 Lopressor IVP Q6 AGUSTIN Multivitamins/Vitamin C 5 ml 04/30/17 12:00 05/01/17 10:00 Multi-Delyn Liquid PO 5 ml DAILY AGUSTIN Administration Pantoprazole Sodium 20 mg 04/19/17 18:00 05/02/17 09:59 Protonix Inj IVP 20 mg BID AGUSTIN Administration Saccharomyces Boulardii 250 mg 04/08/17 18:00 05/02/17 09:58 Florastor PO 250 mg BID AGUSTIN Administration - Patient Studies Lab Studies: Microbiology Studies 04/28/17 20:00 Blood Culture - Preliminary Blood-Venous NO GROWTH AFTER 3 DAYS 04/28/17 20:00 Blood Culture - Preliminary Blood-Venous NO GROWTH AFTER 3 DAYS 04/30/17 08:19 Urine Culture - Final Urine,Catheterized No Growth (<1,000 CFU/ML) Lab Studies 05/02/17 05/02/17 05/01/17 Range/Units 06:00 06:00 23:30 WBC 19.1 H (4.8-10.8) K/uL RBC 2.98 L (3.80-5.20) Mil/uL Hgb 8.4 L (11.0-16.0) g/dL Hct 25.7 L (34.0-47.0) % MCV 86.4 (81.0-99.0) fL MCH 28.1 (27.0-31.0) pg MCHC 32.5 L (33.0-37.0) g/dL RDW 15.2 H (11.5-14.5) % Plt Count 453 H (130-400) K/uL MPV 10.0 (7.2-11.7) fL Neut % (Auto) 80.4 H (50.0-75.0) % Lymph % (Auto) 10.5 L (20.0-40.0) % Mcdonough % (Auto) 7.7 (0.0-10.0) % Eos % (Auto) 0.9 (0.0-4.0) % Baso % (Auto) 0.5 (0.0-2.0) % Neut # 15.4 H (1.8-7.0) K/uL Lymph # 2.0 (1.0-4.3) K/uL Mcdonough # 1.5 H (0.0-0.8) K/uL Eos # 0.2 (0.0-0.7) K/uL Baso # 0.1 (0.0-0.2) K/uL Sodium 147 (132-148) mmol/L Potassium 3.1 L (3.6-5.2) mmol/L Chloride 113 H (98-107) mmol/L Carbon Dioxide 26 (22-30) mmol/L Anion Gap 12 (10-20) BUN 17 (7-17) mg/dL Creatinine 1.0 (0.7-1.2) mg/dL Est GFR ( Amer) > 60 Est GFR (Non-Af Amer) > 60 POC Glucose (mg/dL) 95 (65-110) mg/dL Random Glucose 101 (65-105) mg/dL Calcium 8.0 L (8.6-10.4) mg/dl Phosphorus 2.8 (2.5-4.5) mg/dL Magnesium 1.6 (1.6-2.3) mg/dL Total Bilirubin 0.6 (0.2-1.3) mg/dL AST 21 (14-36) U/L ALT 26 (9-52) U/L Alkaline Phosphatase 104 (38-126) U/L Total Protein 5.7 L (6.3-8.3) g/dL Albumin 2.7 L (3.5-5.0) g/dL Globulin 3.0 (2.2-3.9) gm/dL Albumin/Globulin Ratio 0.9 L (1.0-2.1) 05/01/17 05/01/17 Range/Units 18:05 11:18 WBC (4.8-10.8) K/uL RBC (3.80-5.20) Mil/uL Hgb (11.0-16.0) g/dL Hct (34.0-47.0) % MCV (81.0-99.0) fL MCH (27.0-31.0) pg MCHC (33.0-37.0) g/dL RDW (11.5-14.5) % Plt Count (130-400) K/uL MPV (7.2-11.7) fL Neut % (Auto) (50.0-75.0) % Lymph % (Auto) (20.0-40.0) % Mcdonough % (Auto) (0.0-10.0) % Eos % (Auto) (0.0-4.0) % Baso % (Auto) (0.0-2.0) % Neut # (1.8-7.0) K/uL Lymph # (1.0-4.3) K/uL Mcdonough # (0.0-0.8) K/uL Eos # (0.0-0.7) K/uL Baso # (0.0-0.2) K/uL Sodium (132-148) mmol/L Potassium (3.6-5.2) mmol/L Chloride (98-107) mmol/L Carbon Dioxide (22-30) mmol/L Anion Gap (10-20) BUN (7-17) mg/dL Creatinine (0.7-1.2) mg/dL Est GFR ( Amer) Est GFR (Non-Af Amer) POC Glucose (mg/dL) 102 91 (65-110) mg/dL Random Glucose (65-105) mg/dL Calcium (8.6-10.4) mg/dl Phosphorus (2.5-4.5) mg/dL Magnesium (1.6-2.3) mg/dL Total Bilirubin (0.2-1.3) mg/dL AST (14-36) U/L ALT (9-52) U/L Alkaline Phosphatase (38-126) U/L Total Protein (6.3-8.3) g/dL Albumin (3.5-5.0) g/dL Globulin (2.2-3.9) gm/dL Albumin/Globulin Ratio (1.0-2.1) Laboratory Results - last 24 hr 05/01/17 05/01/17 05/01/17 11:18 18:05 23:30 WBC RBC Hgb Hct MCV MCH MCHC RDW Plt Count MPV Neut % (Auto) Lymph % (Auto) Mcdonough % (Auto) Eos % (Auto) Baso % (Auto) Neut # Lymph # Mcdonough # Eos # Baso # Sodium Potassium Chloride Carbon Dioxide Anion Gap BUN Creatinine Est GFR ( Amer) Est GFR (Non-Af Amer) POC Glucose (mg/dL) 91 102 95 Random Glucose Calcium Phosphorus Magnesium Total Bilirubin AST ALT Alkaline Phosphatase Total Protein Albumin Globulin Albumin/Globulin Ratio 05/02/17 05/02/17 06:00 06:00 WBC 19.1 H RBC 2.98 L Hgb 8.4 L Hct 25.7 L MCV 86.4 MCH 28.1 MCHC 32.5 L RDW 15.2 H Plt Count 453 H MPV 10.0 Neut % (Auto) 80.4 H Lymph % (Auto) 10.5 L Mcdonough % (Auto) 7.7 Eos % (Auto) 0.9 Baso % (Auto) 0.5 Neut # 15.4 H Lymph # 2.0 Mcdonough # 1.5 H Eos # 0.2 Baso # 0.1 Sodium 147 Potassium 3.1 L Chloride 113 H Carbon Dioxide 26 Anion Gap 12 BUN 17 Creatinine 1.0 Est GFR ( Amer) > 60 Est GFR (Non-Af Amer) > 60 POC Glucose (mg/dL) Random Glucose 101 Calcium 8.0 L Phosphorus 2.8 Magnesium 1.6 Total Bilirubin 0.6 AST 21 ALT 26 Alkaline Phosphatase 104 Total Protein 5.7 L Albumin 2.7 L Globulin 3.0 Albumin/Globulin Ratio 0.9 L Fingerstick Blood Sugar Results: 91 <Taty Nguyen - Last Filed: 05/05/17 02:37> CCU Objective - Vital Signs / Intake & Output Intake and Output (Last 8hrs): Intake & Output 05/04/17 05/04/17 05/05/17 14:59 22:59 06:59 Intake Total 1048.2 548.5 5.7 Output Total 180 Balance 1048.2 368.5 5.7 Intake: IV 100 5.7 Intake, IV Amount 948.2 528.5 Left Distal Port PICC 53.2 28.5 Left PICC 480 300 Left PICC #2 415 200 Oral 20 Output: Gastric Amount 60 Right Nares 60 Drainage 70 Right Lower Abdomen 70 Urine 50 Urine, Voided 50 Other: # Bowel Movements 0 0 - Medications Active Medications: Active Medications Generic Name Dose Route Start Last Admin Trade Name Freq PRN Reason Stop Dose Admin Acetaminophen 650 mg 04/28/17 20:11 05/02/17 02:00 Tylenol 650mg/20.3ml Solution Ud PO 650 mg Q4 PRN Administration Temperature Fluconazole 100 mls @ 100 mls/hr 04/28/17 10:00 05/04/17 09:25 Diflucan Iv 200 Mg/100 Ml Ns IVPB 100 mls/hr DAILY AGUSTIN Administration Cefepime HCl 1 gm/ Dextrose 50 mls @ 100 mls/hr 05/03/17 10:00 05/04/17 11:07 IVPB 100 mls/hr DAILY AGUSTIN Administration Levetiracetam 500 mg/ Sodium 105 mls @ 420 mls/hr 05/03/17 22:00 05/04/17 21: 20 Chloride IVPB 420 mls/hr Q12H AGUSTIN Administration Propofol 1,000 mg in 100 mls @ 1.905 mls/hr 05/03/17 15:39 05/05/17 01:15 Diprivan IV 15 mcg/kg/min .Q24H PRN 5.716 mls/hr TITRATE PER MD ORDER Administration Protocol 5 MCG/KG/MIN Linezolid 600 mg in 300 mls @ 200 mls/hr 05/04/17 22:00 05/04/17 21:33 Zyvox 600mg/300ml D5w IVPB 200 mls/hr Q12 AGUSTIN Administration Potassium Chloride/Dextrose/Sod Cl 1,000 mls @ 60 mls/hr 05/05/17 00:30 05/05 01:38 Potassium Chl 20 Meq In D5-1/2ns IV 60 mls/hr .[id number] AGUSTIN Administration Metoprolol Tartrate 5 mg 05/02/17 19:00 05/05/17 01:25 Lopressor IVP 5 mg Q6H AGUSTIN Administration Multivitamins/Vitamin C 5 ml 04/30/17 12:00 05/04/17 09:18 Multi-Delyn Liquid PO Not Given DAILY AGUSTIN Pantoprazole Sodium 20 mg 04/19/17 18:00 05/04/17 17:36 Protonix Inj IVP 20 mg BID AGUSTIN Administration - Patient Studies Lab Studies: Microbiology Studies 05/02/17 20:41 Blood Culture - Preliminary Blood NO GROWTH AFTER 48 HOURS 05/02/17 20:40 Blood Culture - Preliminary Blood NO GROWTH AFTER 48 HOURS 04/18/17 07:27 Blood Fungal Culture - Preliminary Other: Please Indicate 05/02/17 19:07 Urine Culture - Final Urine Gram Positive Cocci Lab Studies 05/05/17 05/04/17 05/04/17 Range/Units 00:14 17:52 12:49 WBC (4.8-10.8) K/uL RBC (3.80-5.20) Mil/uL Hgb (11.0-16.0) g/dL Hct (34.0-47.0) % MCV (81.0-99.0) fL MCH (27.0-31.0) pg MCHC (33.0-37.0) g/dL RDW (11.5-14.5) % Plt Count (130-400) K/uL MPV (7.2-11.7) fL Neut % (Auto) (50.0-75.0) % Lymph % (Auto) (20.0-40.0) % Mcdonough % (Auto) (0.0-10.0) % Eos % (Auto) (0.0-4.0) % Baso % (Auto) (0.0-2.0) % Neut # (1.8-7.0) K/uL Lymph # (1.0-4.3) K/uL Mcdonough # (0.0-0.8) K/uL Eos # (0.0-0.7) K/uL Baso # (0.0-0.2) K/uL Puncture Site pCO2 (35-45) mm/Hg pO2 (80-100) mm/Hg HCO3 (21-28) mmol/L ABG pH (7.35-7.45) ABG Total CO2 (22-28) mmol/L ABG O2 Saturation (95-98) % ABG Base Excess (-2.0-3.0) mmol/L ABG Hemoglobin (11.7-17.4) g/dL ABG Carboxyhemoglobin (0.5-1.5) % POC ABG HHb (Measured) (0.0-5.0) % ABG Methemoglobin (0.0-3.0) % Daniel Test A-a O2 Difference mm/Hg Respiratory Index Hgb O2 Saturation (95.0-98.0) % FiO2 % Tidal Volume PEEP Sodium (132-148) mmol/L Potassium (3.6-5.2) mmol/L Chloride (98-107) mmol/L Carbon Dioxide (22-30) mmol/L Anion Gap (10-20) BUN (7-17) mg/dL Creatinine (0.7-1.2) mg/dL Est GFR ( Amer) Est GFR (Non-Af Amer) POC Glucose (mg/dL) 76 94 (65-110) mg/dL Random Glucose (65-105) mg/dL Calcium (8.6-10.4) mg/dl Phosphorus (2.5-4.5) mg/dL Magnesium (1.6-2.3) mg/dL Total Bilirubin (0.2-1.3) mg/dL AST (14-36) U/L ALT (9-52) U/L Alkaline Phosphatase (38-126) U/L Total Protein (6.3-8.3) g/dL Albumin (3.5-5.0) g/dL Globulin (2.2-3.9) gm/dL Albumin/Globulin Ratio (1.0-2.1) Procalcitonin 0.47 (0.19-0.49) NG/ML Levetiracetam mcg/mL 05/04/17 05/04/17 05/04/17 Range/Units 11:37 09:05 06:22 WBC (4.8-10.8) K/uL RBC (3.80-5.20) Mil/uL Hgb (11.0-16.0) g/dL Hct (34.0-47.0) % MCV (81.0-99.0) fL MCH (27.0-31.0) pg MCHC (33.0-37.0) g/dL RDW (11.5-14.5) % Plt Count (130-400) K/uL MPV (7.2-11.7) fL Neut % (Auto) (50.0-75.0) % Lymph % (Auto) (20.0-40.0) % Mcdonough % (Auto) (0.0-10.0) % Eos % (Auto) (0.0-4.0) % Baso % (Auto) (0.0-2.0) % Neut # (1.8-7.0) K/uL Lymph # (1.0-4.3) K/uL Mcdonough # (0.0-0.8) K/uL Eos # (0.0-0.7) K/uL Baso # (0.0-0.2) K/uL Puncture Site Rb pCO2 37 (35-45) mm/Hg pO2 182 H (80-100) mm/Hg HCO3 25.2 (21-28) mmol/L ABG pH 7.43 (7.35-7.45) ABG Total CO2 25.7 (22-28) mmol/L ABG O2 Saturation 99.4 H (95-98) % ABG Base Excess 0.4 (-2.0-3.0) mmol/L ABG Hemoglobin 9.3 L (11.7-17.4) g/dL ABG Carboxyhemoglobin 1.3 (0.5-1.5) % POC ABG HHb (Measured) 0.6 (0.0-5.0) % ABG Methemoglobin 1.6 (0.0-3.0) % Daniel Test Na A-a O2 Difference 128.0 mm/Hg Respiratory Index 0.7 Hgb O2 Saturation 96.5 (95.0-98.0) % FiO2 50.0 % Tidal Volume 450 PEEP 5 Sodium 145 (132-148) mmol/L Potassium 3.5 L (3.6-5.2) mmol/L Chloride 109 H (98-107) mmol/L Carbon Dioxide 25 (22-30) mmol/L Anion Gap 14 (10-20) BUN 20 H (7-17) mg/dL Creatinine 0.9 (0.7-1.2) mg/dL Est GFR ( Amer) > 60 Est GFR (Non-Af Amer) > 60 POC Glucose (mg/dL) 110 (65-110) mg/dL Random Glucose 141 H (65-105) mg/dL Calcium 8.0 L (8.6-10.4) mg/dl Phosphorus 3.4 (2.5-4.5) mg/dL Magnesium 1.4 L (1.6-2.3) mg/dL Total Bilirubin 0.7 (0.2-1.3) mg/dL AST 31 (14-36) U/L ALT 35 (9-52) U/L Alkaline Phosphatase 115 (38-126) U/L Total Protein 6.1 L (6.3-8.3) g/dL Albumin 3.1 L (3.5-5.0) g/dL Globulin 3.0 (2.2-3.9) gm/dL Albumin/Globulin Ratio 1.1 (1.0-2.1) Procalcitonin (0.19-0.49) NG/ML Levetiracetam mcg/mL 05/04/17 04/30/17 Range/Units 06:22 06:39 WBC 18.9 H (4.8-10.8) K/uL RBC 3.37 L (3.80-5.20) Mil/uL Hgb 9.5 L (11.0-16.0) g/dL Hct 29.3 L (34.0-47.0) % MCV 87.0 (81.0-99.0) fL MCH 28.3 (27.0-31.0) pg MCHC 32.5 L (33.0-37.0) g/dL RDW 15.8 H (11.5-14.5) % Plt Count 400 (130-400) K/uL MPV 10.4 (7.2-11.7) fL Neut % (Auto) 76.5 H (50.0-75.0) % Lymph % (Auto) 13.1 L (20.0-40.0) % Mcdonough % (Auto) 8.9 (0.0-10.0) % Eos % (Auto) 0.6 (0.0-4.0) % Baso % (Auto) 0.9 (0.0-2.0) % Neut # 14.4 H (1.8-7.0) K/uL Lymph # 2.5 (1.0-4.3) K/uL Mcdonough # 1.7 H (0.0-0.8) K/uL Eos # 0.1 (0.0-0.7) K/uL Baso # 0.2 (0.0-0.2) K/uL Puncture Site pCO2 (35-45) mm/Hg pO2 (80-100) mm/Hg HCO3 (21-28) mmol/L ABG pH (7.35-7.45) ABG Total CO2 (22-28) mmol/L ABG O2 Saturation (95-98) % ABG Base Excess (-2.0-3.0) mmol/L ABG Hemoglobin (11.7-17.4) g/dL ABG Carboxyhemoglobin (0.5-1.5) % POC ABG HHb (Measured) (0.0-5.0) % ABG Methemoglobin (0.0-3.0) % Daniel Test A-a O2 Difference mm/Hg Respiratory Index Hgb O2 Saturation (95.0-98.0) % FiO2 % Tidal Volume PEEP Sodium (132-148) mmol/L Potassium (3.6-5.2) mmol/L Chloride (98-107) mmol/L Carbon Dioxide (22-30) mmol/L Anion Gap (10-20) BUN (7-17) mg/dL Creatinine (0.7-1.2) mg/dL Est GFR ( Amer) Est GFR (Non-Af Amer) POC Glucose (mg/dL) (65-110) mg/dL Random Glucose (65-105) mg/dL Calcium (8.6-10.4) mg/dl Phosphorus (2.5-4.5) mg/dL Magnesium (1.6-2.3) mg/dL Total Bilirubin (0.2-1.3) mg/dL AST (14-36) U/L ALT (9-52) U/L Alkaline Phosphatase (38-126) U/L Total Protein (6.3-8.3) g/dL Albumin (3.5-5.0) g/dL Globulin (2.2-3.9) gm/dL Albumin/Globulin Ratio (1.0-2.1) Procalcitonin (0.19-0.49) NG/ML Levetiracetam 7.1 mcg/mL Laboratory Results - last 24 hr 04/30/17 05/04/17 05/04/17 06:39 06:22 06:22 WBC 18.9 H RBC 3.37 L Hgb 9.5 L Hct 29.3 L MCV 87.0 MCH 28.3 MCHC 32.5 L RDW 15.8 H Plt Count 400 MPV 10.4 Neut % (Auto) 76.5 H Lymph % (Auto) 13.1 L Mcdonough % (Auto) 8.9 Eos % (Auto) 0.6 Baso % (Auto) 0.9 Neut # 14.4 H Lymph # 2.5 Mcdonough # 1.7 H Eos # 0.1 Baso # 0.2 Puncture Site pCO2 pO2 HCO3 ABG pH ABG Total CO2 ABG O2 Saturation ABG Base Excess ABG Hemoglobin ABG Carboxyhemoglobin POC ABG HHb (Measured) ABG Methemoglobin Daniel Test A-a O2 Difference Respiratory Index Hgb O2 Saturation FiO2 Tidal Volume PEEP Sodium 145 Potassium 3.5 L Chloride 109 H Carbon Dioxide 25 Anion Gap 14 BUN 20 H Creatinine 0.9 Est GFR ( Amer) > 60 Est GFR (Non-Af Amer) > 60 POC Glucose (mg/dL) Random Glucose 141 H Calcium 8.0 L Phosphorus 3.4 Magnesium 1.4 L Total Bilirubin 0.7 AST 31 ALT 35 Alkaline Phosphatase 115 Total Protein 6.1 L Albumin 3.1 L Globulin 3.0 Albumin/Globulin Ratio 1.1 Procalcitonin Levetiracetam 7.1 05/04/17 05/04/17 05/04/17 09:05 11:37 12:49 WBC RBC Hgb Hct MCV MCH MCHC RDW Plt Count MPV Neut % (Auto) Lymph % (Auto) Mcdonough % (Auto) Eos % (Auto) Baso % (Auto) Neut # Lymph # Mcdonough # Eos # Baso # Puncture Site Rb pCO2 37 pO2 182 H HCO3 25.2 ABG pH 7.43 ABG Total CO2 25.7 ABG O2 Saturation 99.4 H ABG Base Excess 0.4 ABG Hemoglobin 9.3 L ABG Carboxyhemoglobin 1.3 POC ABG HHb (Measured) 0.6 ABG Methemoglobin 1.6 Daniel Test Na A-a O2 Difference 128.0 Respiratory Index 0.7 Hgb O2 Saturation 96.5 FiO2 50.0 Tidal Volume 450 PEEP 5 Sodium Potassium Chloride Carbon Dioxide Anion Gap BUN Creatinine Est GFR ( Amer) Est GFR (Non-Af Amer) POC Glucose (mg/dL) 110 Random Glucose Calcium Phosphorus Magnesium Total Bilirubin AST ALT Alkaline Phosphatase Total Protein Albumin Globulin Albumin/Globulin Ratio Procalcitonin 0.47 Levetiracetam 05/04/17 05/05/17 17:52 00:14 WBC RBC Hgb Hct MCV MCH MCHC RDW Plt Count MPV Neut % (Auto) Lymph % (Auto) Mcdonough % (Auto) Eos % (Auto) Baso % (Auto) Neut # Lymph # Mcdonough # Eos # Baso # Puncture Site pCO2 pO2 HCO3 ABG pH ABG Total CO2 ABG O2 Saturation ABG Base Excess ABG Hemoglobin ABG Carboxyhemoglobin POC ABG HHb (Measured) ABG Methemoglobin Daniel Test A-a O2 Difference Respiratory Index Hgb O2 Saturation FiO2 Tidal Volume PEEP Sodium Potassium Chloride Carbon Dioxide Anion Gap BUN Creatinine Est GFR ( Amer) Est GFR (Non-Af Amer) POC Glucose (mg/dL) 94 76 Random Glucose Calcium Phosphorus Magnesium Total Bilirubin AST ALT Alkaline Phosphatase Total Protein Albumin Globulin Albumin/Globulin Ratio Procalcitonin Levetiracetam Attending/Attestation - Attestation I have personally seen and examined this patient.: Yes I have fully participated in the care of the patient.: Yes I have reviewed all pertinent clinical information: Yes Notes (Text): Agree with the resident notes, discussion was made to during the rounds. Labs reviewed Continue the current treatment
[2017-05-02] MEDS: Metoprolol 1 mg/ml Inj IVP SCH ×3 (11:56→19:44)
--- NOTE | 2017-05-02 12:35 | RAD ---
PROCEDURE: Limited small bowel series HISTORY: to assess continuity s/p [id number] COMPARISON: Not available TECHNIQUE: Water-soluble contrast material was administered via a jejunostomy tube in the right lower quadrant. Following a cargo broker radiograph, overhead films were obtained at varying intervals out to 2 hours and 35 minutes. FINDINGS: A cargo broker radiograph demonstrates the bowel gas pattern to be unremarkable. No masses or abnormal calcifications are identified. Midline surgical zoraida are noted. Contrast material is seen to travel retrograde to the stomach. Contrast material fills but does not distend the stomach. Questionable filling defect within the stomach at the level of the gastrojejunostomy nerve reflect immediate postoperative edema. The gastrojejunostomy is demonstrated. Multiple dilated loops of jejunum are identified. This likely reflects a postoperative ileus. No filling defect is identified. There is no obstructing or constricting lesion appreciated. There is a small amount of contrast material seen in collapsed ileal loops in the pelvis. At no point was contrast material identified within the colon. IMPRESSION: Contrast material is seen to flow retrograde to the stomach through dilated small bowel loops. It is possible that the jejunostomy is placed in the proximal limb of the jejunostomy. The distal limb shows only minimal contrast material, possibly accessing the ileum via the jejunostomy bag. Gastrojejunostomy demonstrated. Probable postoperative ileus.
[2017-05-02] MEDS ORDERED: Lidocaine 2% Inj (20ml) IV ONE (13:38)
--- NOTE | 2017-05-02 14:03 | CP.PCM.PN ---
<Monserrat Oconnell - Last Filed: 05/02/17 20:58> Subjective - Date & Time of Evaluation Date of Evaluation: 05/02/17 Time of Evaluation: 13:56 - Subjective Subjective: Medicine progress note for Dr. Reyes's service Patient was seen and examined at bedside. As per nursing, patient has been vomiting. Patient is nonverbal, therefore, review of systems not obtained. Objective - Vital Signs/Intake and Output Vital Signs (last 24 hours): Temp Pulse Resp BP Pulse Ox 99.8 F H 139 H 37 H 129/91 H 93 L 05/02/17 04:00 05/02/17 07:04 05/02/17 07:04 05/02/17 07:04 05/02/17 07:04 Intake and Output: 05/02/17 05/02/17 06:59 18:59 Intake Total 901 75 Output Total 0 0 Balance 901 75 - Medications Medications: Current Medications Acetaminophen (Tylenol 650mg/20.3ml Solution Ud) 650 mg PO Q4 PRN PRN Reason: Temperature Last Admin: 05/02/17 02:00 Dose: 650 mg Erythromycin Ethylsuccinate (Eryped) 250 mg PO TIDAC [facility] Fluconazole (Diflucan Iv 200 Mg/100 Ml Ns) 100 mls @ 100 mls/hr IVPB DAILY [facility] Last Admin: 05/02/17 10:31 Dose: 100 mls/hr Potassium Chloride 20 meq/ (Sodium Chloride) 1,010 mls @ 75 mls/hr IV .[id number] [facility] Last Admin: 05/02/17 01:30 Dose: 75 mls/hr Levetiracetam (Keppra) 250 mg PO BID [facility] Last Admin: 05/02/17 10:32 Dose: 250 mg Metoprolol Tartrate (Lopressor) 2.5 mg IVP Q6 [facility] Last Admin: 05/02/17 11:56 Dose: 2.5 mg Multivitamins/Vitamin C (Multi-Delyn Liquid) 5 ml PO DAILY [facility] Last Admin: 05/02/17 10:00 Dose: 5 ml Pantoprazole Sodium (Protonix Inj) 20 mg IVP BID [facility] Last Admin: 05/02/17 09:59 Dose: 20 mg Saccharomyces Boulardii (Florastor) 250 mg PO BID [facility] Last Admin: 05/02/17 09:58 Dose: 250 mg - Labs Labs: 05/02/17 06:00 05/02/17 06:00 PT 14.0 SECONDS (9.7-12.2) H 04/25/17 06:25 INR 1.2 04/25/17 06:25 APTT 32 SECONDS (21-34) 04/25/17 06:25 - Constitutional Appears: No Acute Distress - Head Exam Head Exam: ATRAUMATIC, NORMOCEPHALIC - Eye Exam Eye Exam: EOMI - ENT Exam ENT Exam: Mucous Membranes Moist - Respiratory Exam Respiratory Exam: NORMAL BREATHING PATTERN. absent: Respiratory Distress Additional comments: Tracheostomy - Cardiovascular Exam Cardiovascular Exam: Tachycardia, REGULAR RHYTHM, +S1, +S2 - GI/Abdominal Exam GI & Abdominal Exam: Soft, Normal Bowel Sounds. absent: Tenderness Additional comments: right colostomy bag; midline scar with sutures in place. - Extremities Exam Extremities Exam: Normal Inspection - Neurological Exam Neurological Exam: Alert, Awake - Psychiatric Exam Psychiatric exam: Flat Affect - Skin Skin Exam: Dry, Intact, Normal Color, Warm Assessment and Plan - Assessment and Plan (Free Text) Plan: 36 year old female s/p gastrojejunostomy w/bypass and feeding jejunostomy. (1) SMAS (superior mesenteric artery syndrome) Surgery Consult: Dr. [place]. Status post gastrojejunostomy for suspected Mesenteric artery syndrome. (2) urinary tract yeast infection Continue fluconazole (3) Gastric ulcer Continue protonix given 80mg IV daily. (4) Renal failure Seen by Inventory Representative, Dr. Saenz's group. As per Dr. Saenz, JIMBO resolved, no need for dialysis at this time. Continue IVF and replete electrolytes. (5) Mental retardation Patient is non verbal. (6) Schizophrenia Haldol given for agitation. (7) Vomiting Improved with reglan; as per EMR, patient vomits when tube feed rate exceeds 10ml/hr; Small bowel series (05/02): possible that jejunostomy is placed in proximal limb of jejunostomy; probably post-op ileus. Jejunostomy tube removed and NGT placed by surgery. Resume tube feeding via NG tube. Dispo: Case Management Consult for LTAC placement or ALEX placement. Discussed case with Dr. Reyes <Mauri Reyes Jr. - Last Filed: 05/05/17 19:24> Objective - Vital Signs/Intake and Output Vital Signs (last 24 hours): Temp Pulse Resp BP Pulse Ox 99.2 F 116 H 16 99/69 L 100 05/05/17 16:00 05/05/17 17:00 05/05/17 17:00 05/05/17 14:10 05/05/17 17:00 Intake and Output: 05/05/17 05/06/17 18:59 06:59 Intake Total 2171.3 Output Total 1310 Balance 861.3 - Medications Medications: Current Medications Acetaminophen (Tylenol 650mg/20.3ml Solution Ud) 650 mg PO Q4 PRN PRN Reason: Temperature Last Admin: 05/02/17 02:00 Dose: 650 mg Fluconazole (Diflucan Iv 200 Mg/100 Ml Ns) 100 mls @ 100 mls/hr IVPB DAILY [facility] Last Admin: 05/05/17 10:58 Dose: 100 mls/hr Cefepime HCl 1 gm/ Dextrose 50 mls @ 100 mls/hr IVPB DAILY [facility] Last Admin: 05/05/17 10:58 Dose: 100 mls/hr Levetiracetam 500 mg/ Sodium (Chloride) 105 mls @ 420 mls/hr IVPB Q12H [facility] Last Admin: 05/05/17 10:58 Dose: 420 mls/hr Propofol (Diprivan) 1,000 mg in 100 mls @ 1.905 mls/hr IV .Q24H PRN; Protocol; 5 MCG/KG/MIN PRN Reason: TITRATE PER MD ORDER Last Admin: 05/05/17 01:15 Dose: 15 mcg/kg/min, 5.716 mls/hr Linezolid (Zyvox 600mg/300ml D5w) 600 mg in 300 mls @ 200 mls/hr IVPB Q12 [facility] Last Admin: 05/05/17 10:59 Dose: 200 mls/hr Potassium Chloride/Dextrose/Sod Cl (Potassium Chl 20 Meq In D5-1/2ns) 1,000 mls @ 60 mls/hr IV .[id number] [facility] Last Admin: 05/05/17 18:40 Dose: Not Given Lorazepam (Ativan) 0.5 mg IVP Q6H PRN PRN Reason: Anxiety Metoprolol Tartrate (Lopressor) 5 mg IVP Q6H [facility] Last Admin: 05/05/17 18:40 Dose: Not Given Metoprolol Tartrate (Lopressor) 50 mg PO BID [facility] Last Admin: 05/05/17 18:39 Dose: 50 mg Multivitamins/Vitamin C (Multi-Delyn Liquid) 5 ml PO DAILY [facility] Last Admin: 05/05/17 10:59 Dose: 5 ml Pantoprazole Sodium (Protonix Inj) 20 mg IVP BID [facility] Last Admin: 05/05/17 18:39 Dose: 20 mg Quetiapine Fumarate (Seroquel) 200 mg PO BID [facility] Last Admin: 05/05/17 18:39 Dose: 200 mg - Labs Labs: 05/05/17 06:29 05/05/17 06:28 PT 14.0 SECONDS (9.7-12.2) H 04/25/17 06:25 INR 1.2 04/25/17 06:25 APTT 32 SECONDS (21-34) 04/25/17 06:25 Attending/Attestation - Attestation I have personally seen and examined this patient.: Yes I have fully participated in the care of the patient.: Yes I have reviewed all pertinent clinical information, including history, physical exam and plan: Yes Notes (Text): 05/05/17 19:24 Agree with resident note and plan of care
--- NOTE | 2017-05-02 16:57 | CP.PCM.PN ---
Subjective - Date & Time of Evaluation Date of Evaluation: 05/02/17 Time of Evaluation: 16:55 - Subjective Subjective: Surgery Pt s&e. Having Bm. GI series result noted. Jejunostomy tube removed and NGT inserted. Objective - Vital Signs/Intake and Output Vital Signs (last 24 hours): Temp Pulse Resp BP Pulse Ox 99.8 F H 139 H 37 H 129/91 H 93 L 05/02/17 04:00 05/02/17 07:04 05/02/17 07:04 05/02/17 07:04 05/02/17 07:04 Intake and Output: 05/02/17 05/02/17 06:59 18:59 Intake Total 901 75 Output Total 0 0 Balance 901 75 - Medications Medications: Current Medications Acetaminophen (Tylenol 650mg/20.3ml Solution Ud) 650 mg PO Q4 PRN PRN Reason: Temperature Last Admin: 05/02/17 02:00 Dose: 650 mg Erythromycin Ethylsuccinate (Eryped) 250 mg PO TIDAC [facility] Fluconazole (Diflucan Iv 200 Mg/100 Ml Ns) 100 mls @ 100 mls/hr IVPB DAILY [facility] Last Admin: 05/02/17 10:31 Dose: 100 mls/hr Potassium Chloride 20 meq/ (Sodium Chloride) 1,010 mls @ 75 mls/hr IV .[id number] [facility] Last Admin: 05/02/17 15:31 Dose: 75 mls/hr Levetiracetam (Keppra) 250 mg PO BID [facility] Last Admin: 05/02/17 10:32 Dose: 250 mg Metoprolol Tartrate (Lopressor) 2.5 mg IVP Q6 [facility] Last Admin: 05/02/17 11:56 Dose: 2.5 mg Multivitamins/Vitamin C (Multi-Delyn Liquid) 5 ml PO DAILY [facility] Last Admin: 05/02/17 10:00 Dose: 5 ml Pantoprazole Sodium (Protonix Inj) 20 mg IVP BID [facility] Last Admin: 05/02/17 09:59 Dose: 20 mg Saccharomyces Boulardii (Florastor) 250 mg PO BID [facility] Last Admin: 05/02/17 09:58 Dose: 250 mg - Labs Labs: 05/02/17 06:00 05/02/17 06:00 PT 14.0 SECONDS (9.7-12.2) H 01/15/18 06:25 INR 1.2 04/25/17 06:25 APTT 32 SECONDS (21-34) 04/25/17 06:25 - Constitutional Appears: Non-toxic - Head Exam Head Exam: ATRAUMATIC, NORMAL INSPECTION, NORMOCEPHALIC - Eye Exam Eye Exam: EOMI, Normal appearance, PERRL Pupil Exam: NORMAL ACCOMODATION, PERRL - ENT Exam ENT Exam: Mucous Membranes Moist, Normal Exam - Neck Exam Neck Exam: Full ROM, Normal Inspection. absent: Lymphadenopathy - Respiratory Exam Respiratory Exam: Clear to Ausculation Bilateral, NORMAL BREATHING PATTERN - Cardiovascular Exam Cardiovascular Exam: Tachycardia, +S1, +S2 - GI/Abdominal Exam GI & Abdominal Exam: Soft, Normal Bowel Sounds. absent: Distended, Firm, Guarding, Rigid, Tenderness Additional comments: Stoma in place. No output - Extremities Exam Extremities Exam: Normal Capillary Refill, Normal Inspection. absent: Joint Swelling, Pedal Edema - Back Exam Back Exam: NORMAL INSPECTION - Neurological Exam Neurological Exam: Awake, CN II-XII Intact. absent: Oriented x3 - Skin Skin Exam: Dry, Intact, Normal Color, Warm Assessment and Plan - Assessment and Plan (Free Text) Assessment: 36F w/ history of severe gastroparesis; s/p gastrojejunostomy w/ bypass and feeding jejunostomy : having BM. Plan: resume tube feeding via NGT Reglan/zofran for vomiting further mgmt per primary/ICU d/w Dr Mendez
[2017-05-02] MEDS: ERYTHROMYCIN E SUCC 200 MG/5 ML PO SCH (17:20)
[2017-05-03] MEDS: Metoprolol 1 mg/ml Inj IVP SCH ×4 (01:05→18:24)
[2017-05-03] MEDS: Potassium Chloride 20 MEQ in Sodium Chloride 0.45% 1,000 ML IV SCH ×2 (05:58→12:41)
[2017-05-03 06:40] LABS: BASO # 0.2 K/uL (0.0-0.2); BASO % 0.7 % (0.0-2.0); EOS # 0.1 K/uL (0.0-0.7); EOS % 0.4 % (0.0-4.0); HEMOGLOBIN 8.9 g/dL (11.0-16.0); LYMPH # 2.4 K/uL (1.0-4.3); LYMPH % 10.2 % (20.0-40.0); MEAN CELL VOLUME 86.1 fL (81.0-99.0); MEAN CORPUSCULAR HEMOGLOBIN 27.2 pg (27.0-31.0); MEAN CORPUSCULAR HGB CONC 31.6 g/dL (33.0-37.0); MEAN PLATELET VOLUME 10.4 fL (7.2-11.7); MONO # 1.4 K/uL (0.0-0.8); NEUT # 19.2 K/uL (1.8-7.0); NEUT % 82.7 % (50.0-75.0); RBC 3.29 Mil/uL (3.80-5.20); RED CELL DISTRIBUTION WIDTH 15.5 % (11.5-14.5); WHITE BLOOD COUNT 23.2 K/uL (4.8-10.8)
[2017-05-03 06:52] LABS: ALB/GLOB RATIO 0.9 (1.0-2.1); ALBUMIN 2.9 g/dL (3.5-5.0); ALT/SGPT 41 U/L (9-52); AST/SGOT 41 U/L (14-36); BLOOD UREA NITROGEN 14 mg/dL (7-17); CALCIUM 8.3 mg/dl (8.6-10.4); GFR AFRICAN-AMERICAN > 60; GFR NON-AFRICAN AMERICAN > 60
--- NOTE | 2017-05-03 07:22 | CP.PCM.PN ---
<Lavern Long - Last Filed: 05/03/17 09:23> Subjective - Date & Time of Evaluation Date of Evaluation: 05/03/17 Time of Evaluation: 06:45 - Subjective Subjective: PGY2 GI progress note for Dr Lau's service. Patient is out of bed to chair, sitting comfortably, in no acute. Still febrile. Nurse reported patient had large bowel movement yesterday. Patient also vomited gastric content prior to the removal of the j-tube. NGT was placed by surgery to decompress abdomen prior to attempt feeding. Unable to obtain 12 pint ROS due to mental status. Objective - Vital Signs/Intake and Output Vital Signs (last 24 hours): Temp Pulse Resp BP Pulse Ox 99.4 F 120 H 36 H 117/87 99 05/03/17 04:00 05/03/17 07:04 05/03/17 07:04 05/03/17 07:04 05/03/17 07:04 Intake and Output: 05/03/17 05/03/17 06:59 18:59 Intake Total 900 75 Output Total 1080 320 Balance -180 -245 - Medications Medications: Current Medications Acetaminophen (Tylenol 650mg/20.3ml Solution Ud) 650 mg PO Q4 PRN PRN Reason: Temperature Last Admin: 05/02/17 02:00 Dose: 650 mg Erythromycin Ethylsuccinate (Eryped) 250 mg PO TIDAC [facility] Last Admin: 05/02/17 17:20 Dose: Not Given Fluconazole (Diflucan Iv 200 Mg/100 Ml Ns) 100 mls @ 100 mls/hr IVPB DAILY [facility] Last Admin: 05/02/17 10:31 Dose: 100 mls/hr Potassium Chloride 20 meq/ (Sodium Chloride) 1,010 mls @ 75 mls/hr IV .[id number] [facility] Last Admin: 05/03/17 05:58 Dose: 75 mls/hr Cefepime HCl 1 gm/ Sodium (Chloride) 50 mls @ 100 mls/hr IVPB DAILY [facility] Levetiracetam (Keppra) 250 mg PO BID [facility] Last Admin: 05/02/17 17:20 Dose: Not Given Metoprolol Tartrate (Lopressor) 5 mg IVP Q6H [facility] Last Admin: 05/03/17 06:49 Dose: 5 mg Multivitamins/Vitamin C (Multi-Delyn Liquid) 5 ml PO DAILY [facility] Last Admin: 05/02/17 10:00 Dose: 5 ml Pantoprazole Sodium (Protonix Inj) 20 mg IVP BID [facility] Last Admin: 05/02/17 17:20 Dose: 20 mg Saccharomyces Boulardii (Florastor) 250 mg PO BID [facility] Last Admin: 05/02/17 17:20 Dose: Not Given - Labs Labs: 05/03/17 06:27 05/03/17 06:27 PT 14.0 SECONDS (9.7-12.2) H 04/25/17 06:25 INR 1.2 04/25/17 06:25 APTT 32 SECONDS (21-34) 04/25/17 06:25 - Constitutional Appears: No Acute Distress, Older Than Stated Age, Confused, Chronically Ill - Head Exam Head Exam: ATRAUMATIC, NORMAL INSPECTION, NORMOCEPHALIC - Eye Exam Eye Exam: Normal appearance. absent: Scleral icterus Pupil Exam: NORMAL ACCOMODATION - ENT Exam ENT Exam: Mucous Membranes Moist Additional comments: + trach - Neck Exam Neck Exam: Normal Inspection - Respiratory Exam Respiratory Exam: Clear to Ausculation Bilateral. absent: Rales, Rhonchi, Wheezes, Respiratory Distress, Stridor, NORMAL BREATHING PATTERN (coarse breath sounds.) - Cardiovascular Exam Cardiovascular Exam: Tachycardia, REGULAR RHYTHM, RRR, +S1, +S2. absent: Gallop , JVD, Rubs, Murmur - GI/Abdominal Exam GI & Abdominal Exam: Soft, Normal Bowel Sounds. absent: Distended, Firm, Guarding, Rigid, Tenderness Additional comments: + surgical incision site, clean. Ostomy with yellow drainage. - Extremities Exam Extremities Exam: Normal Inspection. absent: Pedal Edema - Back Exam Back Exam: NORMAL INSPECTION - Neurological Exam Neurological Exam: Alert, Awake Additional comments: Non verbal. + trach contracted , - Psychiatric Exam Psychiatric exam: Flat Affect - Skin Skin Exam: Diaphoretic, Normal Color, Warm Assessment and Plan - Assessment and Plan (Free Text) Assessment: 36 year old female with h/o mental disability/schizophrenia who is admitted with abdominal pain, found to have severe gastric distention, acute pancreatitis , gastric bezoar, gastric ulceration due to SMA syndrome. Due to inability to tolerate tube feeding, patient had small bowel series, revealing flow retrograde to stomach through dilated small bowel loops, with jejunostomy in proximal limb. 1. SMA syndrome- s/p gastro-jejunostomy as well as a feeding jejunostomy 2 weeks ago, s/p removal of feeding jejunostomy and placement of NGT by surgery. 2. Fever 3. pancreatitis-resolved 4. ARF s/p HD-improved, HD on hold 5. Aspiration Pneumonia, VDRF extubated s/p trach 6. Nausea and vomiting s/p ngt to suction Plan: - On NGT to suction as per surgery - Plan for possible attempt to feed via NGT tomorrow as per surgery - Mcfp feeding measures to be determine by surgery. - Continue PPI - Fevers, CT contrast shows no intra abdominal abscess, thickening of the cecum versus incomplete mixing of contrast, jessica lower lobe infiltration and trace pleural effusion - Continue abx and antifungal per primary team, no growth on cultures so far, except yeast on ua. Patient seen, examined and case discussed with GI fellow and Dr Lau. <Rivas Lau - Last Filed: 05/03/17 15:19> Objective - Vital Signs/Intake and Output Vital Signs (last 24 hours): Temp Pulse Resp BP Pulse Ox 99.4 F 120 H 36 H 117/87 99 05/03/17 04:00 05/03/17 07:04 05/03/17 07:04 05/03/17 07:04 05/03/17 07:04 Intake and Output: 05/03/17 05/03/17 06:59 18:59 Intake Total 900 75 Output Total 1080 320 Balance -180 -245 - Medications Medications: Current Medications Acetaminophen (Tylenol 650mg/20.3ml Solution Ud) 650 mg PO Q4 PRN PRN Reason: Temperature Last Admin: 05/02/17 02:00 Dose: 650 mg Fluconazole (Diflucan Iv 200 Mg/100 Ml Ns) 100 mls @ 100 mls/hr IVPB DAILY [facility] Last Admin: 05/03/17 09:21 Dose: 100 mls/hr Cefepime HCl 1 gm/ Dextrose 50 mls @ 100 mls/hr IVPB DAILY [facility] Last Admin: 05/03/17 10:52 Dose: 100 mls/hr Potassium Chloride 20 meq/ (Sodium Chloride) 1,010 mls @ 60 mls/hr IV .[id number] [facility] Last Admin: 05/03/17 12:41 Dose: 60 mls/hr Levetiracetam 500 mg/ Sodium (Chloride) 105 mls @ 420 mls/hr IVPB Q12H [facility] Multivitamins/Vitamin C 10 ml/Heparin Sodium (Porcine) 1, 000 units/ Amino Acids /Electrolytes/Dextrose 1,011 mls @ 63 mls/hr IV .Q16H3M ONE Stop: 05/04/17 10:02 Heparin Sodium (Porcine) 1,000 units/ Amino Acids/Electrolytes/Dextrose 1,001 mls @ 63 mls/hr IV .[id number] ONE Stop: 05/05/17 01:53 Metoprolol Tartrate (Lopressor) 5 mg IVP Q6H [facility] Last Admin: 05/03/17 12:43 Dose: 5 mg Multivitamins/Vitamin C (Multi-Delyn Liquid) 5 ml PO DAILY [facility] Last Admin: 05/03/17 09:24 Dose: Not Given Pantoprazole Sodium (Protonix Inj) 20 mg IVP BID [facility] Last Admin: 05/03/17 09:23 Dose: 20 mg - Labs Labs: 05/03/17 06:27 05/03/17 06:27 PT 14.0 SECONDS (9.7-12.2) H 04/25/17 06:25 INR 1.2 04/25/17 06:25 APTT 32 SECONDS (21-34) 04/25/17 06:25 Attending/Attestation - Attestation I have personally seen and examined this patient.: Yes I have fully participated in the care of the patient.: Yes I have reviewed all pertinent clinical information, including history, physical exam and plan: Yes Notes (Text): 05/03/17 15:14 I have seen and examined patient with GI fellow and medical records assistant. No acute events overnight. She remains is critical care unit, seen sitting in chair, remains non-verbal. As per nursing staff, patient with multiple bowel movements yesterday along with two episodes of non-bloody emesis. s/p J tube removal by surgical team and placement of NGT. Review of vitals from today shows tachycardia and low grade temperature. Schizophrenia Resolved pancreatitis gastric bezoar, ulceration, ?SMA syndrome s/p surgical gastrojejunostomy, boby-en y approach with placement of jejuostomy feeding tube Fever, aspiration pneumonia Nausea, vomiting - distal bowel obstruction vs post operative ileus, s/p jejunostomy tube removal - Continue with antibiotic therapy - Case discussed with Dr. Mendez who will attempt to reinitiate feeds on patient today and observe clinical response. - Follow up surgical recommendations regarding [facility] feeding route and nutritional optimization - Will continue to monitor patient clinical course
[2017-05-03] MEDS: ERYTHROMYCIN E SUCC 200 MG/5 ML PO SCH ×3 (07:30→10:38)
[2017-05-03] MEDS: Fluconazole IV 200mg/100 ml NS 100 ML IVPB SCH (09:21)
[2017-05-03] MEDS: Multiple Vitamins Oral Solution PO SCH (09:24)
[2017-05-03] MEDS: Saccharomyces Boulardi 250 mg Cap PO SCH ×2 (09:24→10:38)
--- NOTE | 2017-05-03 09:29 | CP.PCM.PN ---
<Faisal Murillo - Last Filed: 05/03/17 19:16> Subjective - Date & Time of Evaluation Date of Evaluation: 05/03/17 Time of Evaluation: 07:00 - Subjective Subjective: Medicine progress for Dr. Reyes Patient seen and examined. Patient non-verbal at baseline. Unable to obtain ROS. Per nursing staff, patient has vomited overnight. Objective - Vital Signs/Intake and Output Vital Signs (last 24 hours): Temp Pulse Resp BP Pulse Ox 99.4 F 120 H 36 H 117/87 99 05/03/17 04:00 05/03/17 07:04 05/03/17 07:04 05/03/17 07:04 05/03/17 07:04 Intake and Output: 05/03/17 05/03/17 06:59 18:59 Intake Total 900 75 Output Total 1080 320 Balance -180 -245 - Medications Medications: Current Medications Acetaminophen (Tylenol 650mg/20.3ml Solution Ud) 650 mg PO Q4 PRN PRN Reason: Temperature Last Admin: 05/02/17 02:00 Dose: 650 mg Erythromycin Ethylsuccinate (Eryped) 250 mg PO TIDAC [facility] Last Admin: 05/03/17 07:30 Dose: Not Given Fluconazole (Diflucan Iv 200 Mg/100 Ml Ns) 100 mls @ 100 mls/hr IVPB DAILY [facility] Last Admin: 05/03/17 09:21 Dose: 100 mls/hr Potassium Chloride 20 meq/ (Sodium Chloride) 1,010 mls @ 75 mls/hr IV .[id number] [facility] Last Admin: 05/03/17 05:58 Dose: 75 mls/hr Cefepime HCl 1 gm/ Sodium (Chloride) 50 mls @ 100 mls/hr IVPB DAILY [facility] Levetiracetam (Keppra) 250 mg PO BID [facility] Last Admin: 05/03/17 09:24 Dose: Not Given Metoprolol Tartrate (Lopressor) 5 mg IVP Q6H [facility] Last Admin: 05/03/17 06:49 Dose: 5 mg Multivitamins/Vitamin C (Multi-Delyn Liquid) 5 ml PO DAILY [facility] Last Admin: 05/03/17 09:24 Dose: Not Given Pantoprazole Sodium (Protonix Inj) 20 mg IVP BID [facility] Last Admin: 05/03/17 09:23 Dose: 20 mg Saccharomyces Boulardii (Florastor) 250 mg PO BID [facility] Last Admin: 05/03/17 09:24 Dose: Not Given - Labs Labs: 05/03/17 06:27 05/03/17 06:27 PT 14.0 SECONDS (9.7-12.2) H 04/25/17 06:25 INR 1.2 04/25/17 06:25 APTT 32 SECONDS (21-34) 04/25/17 06:25 - Constitutional Appears: No Acute Distress, Chronically Ill, Other (tremulous which is her baseline per staff providers) - Head Exam Head Exam: ATRAUMATIC, NORMOCEPHALIC - Eye Exam Eye Exam: Normal appearance - ENT Exam ENT Exam: Mucous Membranes Moist Additional comments: NGT in place - Neck Exam Additional comments: Tracheostomy in place - Respiratory Exam Additional comments: Tachypnea, Coarse breath sounds - Cardiovascular Exam Cardiovascular Exam: Tachycardia, +S1, +S2 - GI/Abdominal Exam GI & Abdominal Exam: Distended, Soft, Normal Bowel Sounds Additional comments: right colostomy bag; midline scar with sutures in place. - Extremities Exam Extremities Exam: absent: Pedal Edema - Neurological Exam Neurological Exam: Awake. absent: Oriented x3 - Skin Skin Exam: Pallor Assessment and Plan - Assessment and Plan (Free Text) Plan: 36 year old female s/p gastrojejunostomy w/bypass and feeding jejunostomy. (1) SMAS (superior mesenteric artery syndrome) Surgery Consult: Dr. [place]. Status post gastrojejunostomy for suspected Mesenteric artery syndrome. J tube removed due to vomiting. The thought is that the tube may be coiled upward causing this to occur. NGT in place to decompress. (2) urinary tract yeast infection Continue fluconazole (3) Gastric ulcer Continue protonix given 80mg IV daily. (4) Renal failure Seen by [employer], Dr. Saenz's group. As per Dr. Saenz, JIMBO resolved, no need for dialysis at this time. Continue IVF and replete electrolytes. (5) Mental retardation Patient is non verbal. (6) Schizophrenia Haldol given for agitation in the past. (7) Vomiting Improved with reglan; as per EMR, patient vomits when tube feed rate exceeds 10ml/hr; Small bowel series (05/02): possible that jejunostomy is placed in proximal limb of jejunostomy; probably post-op ileus. Jejunostomy tube removed and NGT placed by surgery. Dispo: TPN at rate 63/hr ordered for today. Possible ALEX placement once stabilized. Patient pulled out NGT. It had to be replaced, and patient is back on ventilator. She is for ICU care at this time. Case DW Dr. Reyes <Mauri Reyes Jr. - Last Filed: 05/05/17 19:30> Objective - Vital Signs/Intake and Output Vital Signs (last 24 hours): Temp Pulse Resp BP Pulse Ox 99.2 F 116 H 16 99/69 L 100 05/05/17 16:00 05/05/17 17:00 05/05/17 17:00 05/05/17 14:10 05/05/17 17:00 Intake and Output: 05/05/17 05/06/17 18:59 06:59 Intake Total 2171.3 Output Total 1310 Balance 861.3 - Medications Medications: Current Medications Acetaminophen (Tylenol 650mg/20.3ml Solution Ud) 650 mg PO Q4 PRN PRN Reason: Temperature Last Admin: 05/02/17 02:00 Dose: 650 mg Fluconazole (Diflucan Iv 200 Mg/100 Ml Ns) 100 mls @ 100 mls/hr IVPB DAILY [facility] Last Admin: 05/05/17 10:58 Dose: 100 mls/hr Cefepime HCl 1 gm/ Dextrose 50 mls @ 100 mls/hr IVPB DAILY [facility] Last Admin: 05/05/17 10:58 Dose: 100 mls/hr Levetiracetam 500 mg/ Sodium (Chloride) 105 mls @ 420 mls/hr IVPB Q12H [facility] Last Admin: 05/05/17 10:58 Dose: 420 mls/hr Propofol (Diprivan) 1,000 mg in 100 mls @ 1.905 mls/hr IV .Q24H PRN; Protocol; 5 MCG/KG/MIN PRN Reason: TITRATE PER MD ORDER Last Admin: 05/05/17 01:15 Dose: 15 mcg/kg/min, 5.716 mls/hr Linezolid (Zyvox 600mg/300ml D5w) 600 mg in 300 mls @ 200 mls/hr IVPB Q12 [facility] Last Admin: 05/05/17 10:59 Dose: 200 mls/hr Potassium Chloride/Dextrose/Sod Cl (Potassium Chl 20 Meq In D5-1/2ns) 1,000 mls @ 60 mls/hr IV .[id number] [facility] Last Admin: 05/05/17 18:40 Dose: Not Given Lorazepam (Ativan) 0.5 mg IVP Q6H PRN PRN Reason: Anxiety Metoprolol Tartrate (Lopressor) 5 mg IVP Q6H [facility] Last Admin: 05/05/17 18:40 Dose: Not Given Metoprolol Tartrate (Lopressor) 50 mg PO BID [facility] Last Admin: 05/05/17 18:39 Dose: 50 mg Multivitamins/Vitamin C (Multi-Delyn Liquid) 5 ml PO DAILY [facility] Last Admin: 05/05/17 10:59 Dose: 5 ml Pantoprazole Sodium (Protonix Inj) 20 mg IVP BID [facility] Last Admin: 05/05/17 18:39 Dose: 20 mg Quetiapine Fumarate (Seroquel) 200 mg PO BID [facility] Last Admin: 05/05/17 18:39 Dose: 200 mg - Labs Labs: 05/05/17 06:29 05/05/17 06:28 PT 14.0 SECONDS (9.7-12.2) H 04/25/17 06:25 INR 1.2 04/25/17 06:25 APTT 32 SECONDS (21-34) 04/25/17 06:25 Attending/Attestation - Attestation I have personally seen and examined this patient.: Yes I have fully participated in the care of the patient.: Yes I have reviewed all pertinent clinical information, including history, physical exam and plan: Yes Notes (Text): 05/05/17 19:30 Agree with resident note and plan of care
[2017-05-03] MEDS ORDERED: Cefepime 1 GM in Sodium Chloride 0.9% 50 ML IVPB SCH (10:00)
--- NOTE | 2017-05-03 11:14 | CP.PCM.PN ---
Subjective - Date & Time of Evaluation Date of Evaluation: 05/03/17 Time of Evaluation: 11:12 - Subjective Subjective: seen and examined tube feeds on hold, NG drainage. jejonostomy tube out pt on iv fluids good uop no events non verbal. ros cannot be obtained trach Objective - Vital Signs/Intake and Output Vital Signs (last 24 hours): Temp Pulse Resp BP Pulse Ox 99.4 F 120 H 36 H 117/87 99 05/03/17 04:00 05/03/17 07:04 05/03/17 07:04 05/03/17 07:04 05/03/17 07:04 Intake and Output: 05/03/17 05/03/17 06:59 18:59 Intake Total 900 75 Output Total 1080 320 Balance -180 -245 - Medications Medications: Current Medications Acetaminophen (Tylenol 650mg/20.3ml Solution Ud) 650 mg PO Q4 PRN PRN Reason: Temperature Last Admin: 05/02/17 02:00 Dose: 650 mg Erythromycin Ethylsuccinate (Eryped) 250 mg PO TIDAC [facility] Last Admin: 05/03/17 10:38 Dose: 250 mg Fluconazole (Diflucan Iv 200 Mg/100 Ml Ns) 100 mls @ 100 mls/hr IVPB DAILY [facility] Last Admin: 05/03/17 09:21 Dose: 100 mls/hr Cefepime HCl 1 gm/ Dextrose 50 mls @ 100 mls/hr IVPB DAILY [facility] Last Admin: 05/03/17 10:52 Dose: 100 mls/hr Levetiracetam (Keppra) 250 mg PO BID [facility] Last Admin: 05/03/17 10:38 Dose: 250 mg Metoprolol Tartrate (Lopressor) 5 mg IVP Q6H [facility] Last Admin: 05/03/17 06:49 Dose: 5 mg Multivitamins/Vitamin C (Multi-Delyn Liquid) 5 ml PO DAILY [facility] Last Admin: 05/03/17 09:24 Dose: Not Given Pantoprazole Sodium (Protonix Inj) 20 mg IVP BID [facility] Last Admin: 05/03/17 09:23 Dose: 20 mg Saccharomyces Boulardii (Florastor) 250 mg PO BID [facility] Last Admin: 05/03/17 10:38 Dose: 250 mg - Labs Labs: 05/03/17 06:27 05/03/17 06:27 PT 14.0 SECONDS (9.7-12.2) H 04/25/17 06:25 INR 1.2 04/25/17 06:25 APTT 32 SECONDS (21-34) 04/25/17 06:25 - Constitutional Appears: Non-toxic, No Acute Distress, Chronically Ill - Head Exam Head Exam: NORMAL INSPECTION - Eye Exam Eye Exam: Normal appearance Pupil Exam: PERRL - ENT Exam ENT Exam: Mucous Membranes Dry, Normal Exam - Neck Exam Neck Exam: Normal Inspection - Respiratory Exam Respiratory Exam: Clear to Ausculation Bilateral, NORMAL BREATHING PATTERN - Cardiovascular Exam Cardiovascular Exam: REGULAR RHYTHM, RRR - GI/Abdominal Exam GI & Abdominal Exam: Distended, Soft - Extremities Exam Extremities Exam: Normal Inspection Assessment and Plan (1) JIMBO (acute kidney injury) Status: Resolved (2) Acute pancreatitis Status: Acute (3) SBO (small bowel obstruction) Status: Acute (4) Mental retardation Status: Acute (5) Schizophrenia Status: Acute - Assessment and Plan (Free Text) Assessment: resolved jimbo high Na / low K - 1/2NS w/ potassium ordered recommend PPN / TPN
--- NOTE | 2017-05-03 13:11 | CP.PCM.PN ---
Subjective - Date & Time of Evaluation Date of Evaluation: 05/03/17 Time of Evaluation: 13:09 - Subjective Subjective: Surgery Pt s&e. J tube pulled yesterday. Per nurse small amount of vomiting. BM. Resting comfortably. Objective - Vital Signs/Intake and Output Vital Signs (last 24 hours): Temp Pulse Resp BP Pulse Ox 99.4 F 120 H 36 H 117/87 99 05/03/17 04:00 05/03/17 07:04 05/03/17 07:04 05/03/17 07:04 05/03/17 07:04 Intake and Output: 05/03/17 05/03/17 06:59 18:59 Intake Total 900 75 Output Total 1080 320 Balance -180 -245 - Medications Medications: Current Medications Acetaminophen (Tylenol 650mg/20.3ml Solution Ud) 650 mg PO Q4 PRN PRN Reason: Temperature Last Admin: 05/02/17 02:00 Dose: 650 mg Fluconazole (Diflucan Iv 200 Mg/100 Ml Ns) 100 mls @ 100 mls/hr IVPB DAILY [facility] Last Admin: 05/03/17 09:21 Dose: 100 mls/hr Cefepime HCl 1 gm/ Dextrose 50 mls @ 100 mls/hr IVPB DAILY [facility] Last Admin: 05/03/17 10:52 Dose: 100 mls/hr Potassium Chloride 20 meq/ (Sodium Chloride) 1,010 mls @ 60 mls/hr IV .[id number] [facility] Last Admin: 05/03/17 12:41 Dose: 60 mls/hr Levetiracetam 500 mg/ Sodium (Chloride) 105 mls @ 420 mls/hr IVPB Q12H [facility] Metoprolol Tartrate (Lopressor) 5 mg IVP Q6H [facility] Last Admin: 05/03/17 12:43 Dose: 5 mg Multivitamins/Vitamin C (Multi-Delyn Liquid) 5 ml PO DAILY [facility] Last Admin: 05/03/17 09:24 Dose: Not Given Pantoprazole Sodium (Protonix Inj) 20 mg IVP BID [facility] Last Admin: 05/03/17 09:23 Dose: 20 mg - Labs Labs: 05/03/17 06:27 05/03/17 06:27 PT 14.0 SECONDS (9.7-12.2) H 04/25/17 06:25 INR 1.2 04/25/17 06:25 APTT 32 SECONDS (21-34) 04/25/17 06:25 - Constitutional Appears: No Acute Distress - Head Exam Head Exam: ATRAUMATIC, NORMAL INSPECTION, NORMOCEPHALIC - Eye Exam Eye Exam: EOMI, Normal appearance, PERRL Pupil Exam: NORMAL ACCOMODATION, PERRL - ENT Exam ENT Exam: Mucous Membranes Moist Additional comments: Trach in place - Respiratory Exam Respiratory Exam: absent: Respiratory Distress, NORMAL BREATHING PATTERN - Cardiovascular Exam Cardiovascular Exam: Tachycardia, +S1, +S2. absent: Murmur - GI/Abdominal Exam GI & Abdominal Exam: Soft, Normal Bowel Sounds. absent: Distended, Firm, Guarding, Tenderness Additional comments: Stoma inplace. no output - Extremities Exam Extremities Exam: Normal Capillary Refill, Normal Inspection. absent: Joint Swelling, Pedal Edema - Back Exam Back Exam: NORMAL INSPECTION - Neurological Exam Neurological Exam: Awake, CN II-XII Intact. absent: Alert, Oriented x3 - Skin Skin Exam: Dry, Intact, Normal Color, Warm Assessment and Plan - Assessment and Plan (Free Text) Assessment: 36F w/ history of severe gastroparesis; s/p gastrojejunostomy w/ bypass and feeding jejunostomy : having BM. Plan: resume tube feeding via NGT Reglan/zofran for vomiting further mgmt per primary/ICU Swallow eval d/w Dr Mendez
[2017-05-03] MEDS ORDERED: Lidocaine 2% Jelly (Uro-Jet) TOP ONE (15:20)
[2017-05-03] MEDS ORDERED: Midazolam 2 MG/2 ML VIAL IVP ONE (15:31)
[2017-05-03] MEDS: Propofol 10 mg/ml 1,000 MG/100 ML VIAL IV PRN (15:50)
[2017-05-03] MEDS ORDERED: Metoprolol 1 mg/ml Inj IVP ONE (16:46)
[2017-05-03] MEDS ORDERED: TPN #1 IV ONE (18:00)
[2017-05-03] MEDS: levETIRAcetam 500 MG in Sodium Chloride 0.9% 100 ML IVPB SCH (21:24)
[2017-05-04] MEDS: Metoprolol 1 mg/ml Inj IVP SCH ×4 (01:09→18:21)
[2017-05-04] MEDS: Propofol 10 mg/ml 1,000 MG/100 ML VIAL IV PRN ×2 (01:09→12:52)
[2017-05-04] MEDS: Potassium Chloride 20 MEQ in Sodium Chloride 0.45% 1,000 ML IV SCH ×3 (04:05→21:00)
[2017-05-04 06:36] LABS: BASO # 0.2 K/uL (0.0-0.2); BASO % 0.9 % (0.0-2.0); EOS # 0.1 K/uL (0.0-0.7); EOS % 0.6 % (0.0-4.0); HEMOGLOBIN 9.5 g/dL (11.0-16.0); LYMPH # 2.5 K/uL (1.0-4.3); LYMPH % 13.1 % (20.0-40.0); MEAN CORPUSCULAR HEMOGLOBIN 28.3 pg (27.0-31.0); MEAN CORPUSCULAR HGB CONC 32.5 g/dL (33.0-37.0); MEAN PLATELET VOLUME 10.4 fL (7.2-11.7); MONO # 1.7 K/uL (0.0-0.8); MONO % 8.9 % (0.0-10.0); NEUT # 14.4 K/uL (1.8-7.0); NEUT % 76.5 % (50.0-75.0); RBC 3.37 Mil/uL (3.80-5.20); RED CELL DISTRIBUTION WIDTH 15.8 % (11.5-14.5); WHITE BLOOD COUNT 18.9 K/uL (4.8-10.8)
[2017-05-04 06:46] LABS: ALB/GLOB RATIO 1.1 (1.0-2.1); ALBUMIN 3.1 g/dL (3.5-5.0); ALT/SGPT 35 U/L (9-52); AST/SGOT 31 U/L (14-36); BLOOD UREA NITROGEN 20 mg/dL (7-17); GFR AFRICAN-AMERICAN > 60; GFR NON-AFRICAN AMERICAN > 60
--- NOTE | 2017-05-04 06:55 | CP.PCM.PN ---
<Lavern Long - Last Filed: 05/04/17 14:31> Subjective - Date & Time of Evaluation Date of Evaluation: 05/04/17 Time of Evaluation: 07:45 - Subjective Subjective: Gi progress note for Dr Meade's service Patient became agitated last night, pulled out her NGT and had to be placed back on vent, and sedated. Patient is currently minimally sedated with propofol , opens her eyes spontaneously. NGT to suction, drained 250 cc of greenish bile. Ostomy also draining biliary fluid. Patient was also started on TPN. Objective - Vital Signs/Intake and Output Vital Signs (last 24 hours): Temp Pulse Resp BP Pulse Ox 98.3 F 132 H 24 120/86 100 05/04/17 04:00 05/04/17 05:04 05/04/17 05:04 05/04/17 05:04 05/04/17 05:04 Intake and Output: 05/03/17 05/04/17 18:59 06:59 Intake Total 1074.1 1538.0 Output Total 2370 Balance -1295.9 1538.0 - Medications Medications: Current Medications Acetaminophen (Tylenol 650mg/20.3ml Solution Ud) 650 mg PO Q4 PRN PRN Reason: Temperature Last Admin: 05/02/17 02:00 Dose: 650 mg Fluconazole (Diflucan Iv 200 Mg/100 Ml Ns) 100 mls @ 100 mls/hr IVPB DAILY [facility] Last Admin: 05/03/17 09:21 Dose: 100 mls/hr Cefepime HCl 1 gm/ Dextrose 50 mls @ 100 mls/hr IVPB DAILY [facility] Last Admin: 05/03/17 10:52 Dose: 100 mls/hr Potassium Chloride 20 meq/ (Sodium Chloride) 1,010 mls @ 60 mls/hr IV .[id number] [facility] Last Admin: 05/04/17 04:05 Dose: Not Given Levetiracetam 500 mg/ Sodium (Chloride) 105 mls @ 420 mls/hr IVPB Q12H [facility] Last Admin: 05/03/17 21:24 Dose: 420 mls/hr Multivitamins/Vitamin C 10 ml/Heparin Sodium (Porcine) 1, 000 units/ Amino Acids /Electrolytes/Dextrose 1,011 mls @ 63 mls/hr IV .[id number] ONE Stop: 05/04/17 10:02 Last Admin: 05/03/17 17:15 Dose: 63 mls/hr Heparin Sodium (Porcine) 1,000 units/ Amino Acids/Electrolytes/Dextrose 1,001 mls @ 63 mls/hr IV .[id number] ONE Stop: 05/05/17 01:53 Propofol (Diprivan) 1,000 mg in 100 mls @ 1.905 mls/hr IV .Q24H PRN; Protocol; 5 MCG/KG/MIN PRN Reason: TITRATE PER MD ORDER Last Admin: 05/04/17 01:09 Dose: 25 mcg/kg/min, 9.526 mls/hr Metoprolol Tartrate (Lopressor) 5 mg IVP Q6H [facility] Last Admin: 05/04/17 06:51 Dose: 5 mg Multivitamins/Vitamin C (Multi-Delyn Liquid) 5 ml PO DAILY [facility] Last Admin: 05/03/17 09:24 Dose: Not Given Pantoprazole Sodium (Protonix Inj) 20 mg IVP BID [facility] Last Admin: 05/03/17 18:20 Dose: 20 mg - Labs Labs: 05/04/17 06:22 05/04/17 06:22 PT 14.0 SECONDS (9.7-12.2) H 04/25/17 06:25 INR 1.2 04/25/17 06:25 APTT 32 SECONDS (21-34) 04/25/17 06:25 - Constitutional Appears: No Acute Distress, Older Than Stated Age, Cachectic, Chronically Ill, Other (Minimally sedated ) - Head Exam Head Exam: ATRAUMATIC, NORMAL INSPECTION, NORMOCEPHALIC - Eye Exam Eye Exam: Normal appearance - ENT Exam ENT Exam: Mucous Membranes Moist Additional comments: + trach in place, on vent. - Neck Exam Neck Exam: Normal Inspection - Respiratory Exam Respiratory Exam: absent: Rales, Rhonchi, Wheezes, Respiratory Distress, Stridor Additional comments: + coarse breath sounds. - Cardiovascular Exam Cardiovascular Exam: Tachycardia, REGULAR RHYTHM, +S1, +S2. absent: Murmur - GI/Abdominal Exam GI & Abdominal Exam: Soft, Normal Bowel Sounds. absent: Distended, Firm, Guarding, Rigid, Tenderness Additional comments: + vertical surgical wound with zoraida, wound is clean, no drainage. + ostomy with greenish fluid. NGT in place. - Extremities Exam Extremities Exam: Normal Inspection - Neurological Exam Additional comments: Minimally sedated on propofol. 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 Due to inability to tolerate tube feeding, patient had small bowel series, revealing flow retrograde to stomach through dilated small bowel loops, with jejunostomy in proximal limb. Patient was placed back on vent and sedated due to agitations last night. Afebrile this morning. 1. SMA syndrome- s/p gastro-jejunostomy as well as a feeding jejunostomy 2 weeks ago, s/p removal of feeding jejunostomy and placement of NGT by surgery. 2. Fever 3. pancreatitis-resolved 4. ARF s/p HD-improved, HD on hold 5. Aspiration Pneumonia, VDRF extubated s/p trach 6. Nausea and vomiting s/p ngt to suction Plan: - On NGT to suction as per surgery, draining biliary fluid. - Now on TPN - Assisted feeding measures to be determine by surgery. - Continue PPI - Fevers, CT contrast shows no intra abdominal abscess, thickening of the cecum versus incomplete mixing of contrast, jessica lower lobe infiltration and trace pleural effusion - Continue abx and antifungal per primary team, no growth on cultures so far, except yeast on ua. - Medical management as per primary and ICU. Patient seen, examined and case discussed with Dr Meade. <Dov Meade - Last Filed: 05/04/17 15:34> Objective - Vital Signs/Intake and Output Vital Signs (last 24 hours): Temp Pulse Resp BP Pulse Ox 98.9 F 116 H 16 113/80 100 05/04/17 12:00 05/04/17 15:00 05/04/17 15:00 05/04/17 14:10 05/04/17 15:00 Intake and Output: 05/04/17 05/04/17 06:59 18:59 Intake Total 1670.5 1313.9 Output Total 870 Balance 800.5 1313.9 - Medications Medications: Current Medications Acetaminophen (Tylenol 650mg/20.3ml Solution Ud) 650 mg PO Q4 PRN PRN Reason: Temperature Last Admin: 05/02/17 02:00 Dose: 650 mg Fluconazole (Diflucan Iv 200 Mg/100 Ml Ns) 100 mls @ 100 mls/hr IVPB DAILY [facility] Last Admin: 05/04/17 09:25 Dose: 100 mls/hr Cefepime HCl 1 gm/ Dextrose 50 mls @ 100 mls/hr IVPB DAILY [facility] Last Admin: 05/04/17 11:07 Dose: 100 mls/hr Potassium Chloride 20 meq/ (Sodium Chloride) 1,010 mls @ 60 mls/hr IV .[id number] [facility] Last Admin: 05/04/17 09:06 Dose: 60 mls/hr Levetiracetam 500 mg/ Sodium (Chloride) 105 mls @ 420 mls/hr IVPB Q12H [facility] Last Admin: 05/04/17 09:17 Dose: 420 mls/hr Heparin Sodium (Porcine) 1,000 units/ Amino Acids/Electrolytes/Dextrose 1,001 mls @ 63 mls/hr IV .[id number] ONE Stop: 05/05/17 01:53 Last Admin: 05/04/17 12:35 Dose: Not Given Propofol (Diprivan) 1,000 mg in 100 mls @ 1.905 mls/hr IV .Q24H PRN; Protocol; 5 MCG/KG/MIN PRN Reason: TITRATE PER MD ORDER Last Admin: 05/04/17 12:52 Dose: 15 mcg/kg/min, 5.716 mls/hr Vancomycin/Sodium Chloride (Vancomycin 1 Gm/Ns 200 Ml) 1 gm in 200 mls @ 133.333 mls/hr IVPB STAT STA Stop: 05/04/17 16:15 Last Admin: 05/04/17 15:12 Dose: 133.333 mls/hr Metoprolol Tartrate (Lopressor) 5 mg IVP Q6H [facility] Last Admin: 05/04/17 12:38 Dose: 5 mg Multivitamins/Vitamin C (Multi-Delyn Liquid) 5 ml PO DAILY [facility] Last Admin: 05/04/17 09:18 Dose: Not Given Pantoprazole Sodium (Protonix Inj) 20 mg IVP BID [facility] Last Admin: 05/04/17 09:17 Dose: 20 mg - Labs Labs: 05/04/17 06:22 05/04/17 06:22 PT 14.0 SECONDS (9.7-12.2) H 04/25/17 06:25 INR 1.2 04/25/17 06:25 APTT 32 SECONDS (21-34) 04/25/17 06:25 Attending/Attestation - Attestation I have personally seen and examined this patient.: Yes I have fully participated in the care of the patient.: Yes I have reviewed all pertinent clinical information, including history, physical exam and plan: Yes Notes (Text): 05/04/17 15:32 36 year old female with SMA syndrome s/p gastrojejunostomy, loop jejunostomy and feeding tube, recovering in ICU. 1. SMA syndrome 2. Vomiting Plan: -J tube was removed by surgery, balloon may have been obstructing small bowel -currently copious bilious output suctioned from NGT -bilious fluid also collecting in ostomy bag -on tpn -appreciate surgical input re: plan for enteral nutrition
[2017-05-04 09:10] LABS: ARTERIAL BLOOD GAS HCO3 25.2 mmol/L (21-28); ARTERIAL BLOOD GAS HEMOGLOBIN 9.3 g/dL (11.7-17.4); ARTERIAL BLOOD GAS O2 SAT 99.4 % (95-98); ARTERIAL BLOOD GAS PCO2 37 mm/Hg (35-45); ARTERIAL BLOOD GAS PH 7.43 (7.35-7.45); ARTERIAL BLOOD GAS PO2 182 mm/Hg (80-100); ARTERIAL BLOOD GAS TCO2 25.7 mmol/L (22-28)
[2017-05-04] MEDS: levETIRAcetam 500 MG in Sodium Chloride 0.9% 100 ML IVPB SCH ×2 (09:17→21:20)
[2017-05-04] MEDS: Multiple Vitamins Oral Solution PO SCH (09:18)
[2017-05-04] MEDS: Fluconazole IV 200mg/100 ml NS 100 ML IVPB SCH (09:25)
[2017-05-04] MEDS ORDERED: Magnesium Sulfate 1 gm in D5W 1 GM/100 ML BAG IVPB ONE (09:43)
[2017-05-04] MEDS ORDERED: TPN #2 IV ONE (10:00)
--- NOTE | 2017-05-04 10:04 | RAD ---
HISTORY: aspiration COMPARISON: Chest radiograph dated 04/29/2017. FINDINGS: LUNGS: Pulmonary vascular congestion. Similar appearance of vague right infrahilar opacity. Improved left basilar aeration with residual focal opacity. PLEURA: No significant pleural effusion identified, no pneumothorax apparent. CARDIOVASCULAR: Normal. OSSEOUS STRUCTURES: No significant abnormalities. VISUALIZED UPPER ABDOMEN: Normal. OTHER FINDINGS: Right subclavian access hemodialysis catheter redemonstrated. Tracheostomy and enteric tube, unchanged. Left upper extremity PICC, unchanged. IMPRESSION: Improved left basilar aeration with residual focal opacity. Similar appearance of vague right infrahilar opacity.
--- NOTE | 2017-05-04 10:07 | RAD ---
HISTORY: r/o obstruction COMPARISON: No prior. FINDINGS: Skin zoraida are seen along the midline. Right lower quadrant ostomy is evident. Paucity of bowel gas is noted. IMPRESSION: Paucity of bowel gas may be secondary to diarrhea, emesis and/or fluid-filled loops of bowel.
--- NOTE | 2017-05-04 12:04 | CP.PCM.PN ---
Subjective - Date & Time of Evaluation Date of Evaluation: 05/04/17 Time of Evaluation: 12:02 - Subjective Subjective: Remains sedated, trached on vent UO- 1250 ml/ 24 hrs renal function has improved; hypernatremia corrected on TPN; K and mag low remains very tachy Objective - Vital Signs/Intake and Output Vital Signs (last 24 hours): Temp Pulse Resp BP Pulse Ox 97.4 F L 125 H 16 107/80 100 05/04/17 08:00 05/04/17 11:10 05/04/17 11:10 05/04/17 11:10 05/04/17 08:00 Intake and Output: 05/04/17 05/04/17 06:59 18:59 Intake Total 1670.5 607.4 Output Total 870 Balance 800.5 607.4 - Medications Medications: Current Medications Acetaminophen (Tylenol 650mg/20.3ml Solution Ud) 650 mg PO Q4 PRN PRN Reason: Temperature Last Admin: 05/02/17 02:00 Dose: 650 mg Fluconazole (Diflucan Iv 200 Mg/100 Ml Ns) 100 mls @ 100 mls/hr IVPB DAILY [facility] Last Admin: 05/04/17 09:25 Dose: 100 mls/hr Cefepime HCl 1 gm/ Dextrose 50 mls @ 100 mls/hr IVPB DAILY [facility] Last Admin: 05/04/17 11:07 Dose: 100 mls/hr Potassium Chloride 20 meq/ (Sodium Chloride) 1,010 mls @ 60 mls/hr IV .[id number] [facility] Last Admin: 05/04/17 09:06 Dose: 60 mls/hr Levetiracetam 500 mg/ Sodium (Chloride) 105 mls @ 420 mls/hr IVPB Q12H [facility] Last Admin: 05/04/17 09:17 Dose: 420 mls/hr Heparin Sodium (Porcine) 1,000 units/ Amino Acids/Electrolytes/Dextrose 1,001 mls @ 63 mls/hr IV .[id number] ONE Stop: 05/05/17 01:53 Propofol (Diprivan) 1,000 mg in 100 mls @ 1.905 mls/hr IV .Q24H PRN; Protocol; 5 MCG/KG/MIN PRN Reason: TITRATE PER MD ORDER Last Titration: 05/04/17 09:22 Dose: 15 mcg/kg/min, 5.716 mls/hr Metoprolol Tartrate (Lopressor) 5 mg IVP Q6H [facility] Last Admin: 05/04/17 06:51 Dose: 5 mg Multivitamins/Vitamin C (Multi-Delyn Liquid) 5 ml PO DAILY [facility] Last Admin: 05/04/17 09:18 Dose: Not Given Pantoprazole Sodium (Protonix Inj) 20 mg IVP BID [facility] Last Admin: 05/04/17 09:17 Dose: 20 mg - Labs Labs: 05/04/17 06:22 05/04/17 06:22 PT 14.0 SECONDS (9.7-12.2) H 04/25/17 06:25 INR 1.2 04/25/17 06:25 APTT 32 SECONDS (21-34) 04/25/17 06:25 - Constitutional Appears: In Acute Distress, Chronically Ill - Head Exam Head Exam: ATRAUMATIC, NORMAL INSPECTION - Eye Exam Eye Exam: EOMI, Normal appearance - Respiratory Exam Respiratory Exam: Rhonchi, Respiratory Distress - Cardiovascular Exam Cardiovascular Exam: Tachycardia, +S1 - GI/Abdominal Exam GI & Abdominal Exam: Soft. absent: Tenderness - Extremities Exam Extremities Exam: Tenderness. absent: Pedal Edema - Neurological Exam Neurological Exam: Altered - Skin Skin Exam: Dry, Warm Assessment and Plan (1) JIMBO (acute kidney injury) Status: Resolved (2) Acute pancreatitis Status: Acute (3) SBO (small bowel obstruction) Status: Acute (4) Schizophrenia Status: Acute - Assessment and Plan (Free Text) Plan: Replete mag and K TPN until enteric feeds resume
--- NOTE | 2017-05-04 14:06 | CP.CCUPN ---
<Bipin Chopra - Last Filed: 05/04/17 14:03> CCU Subjective - Physician Review Subjective (Free Text): 05/04/17 14:04 patient seen and examined at bedside NGT placed with 200 out looks comfortable back on vent patient getting TPN will follow surgery when to restart tube feeds UC + for gram + cocci CCU Objective - Vital Signs / Intake & Output Vital Signs (Last 4 hours): Vital Signs Temp Pulse Resp BP Pulse Ox 05/04/17 13:10 107 H 16 113/84 100 05/04/17 13:00 109 H 16 100 05/04/17 12:10 125 H 16 106/75 100 05/04/17 12:00 98.9 F 128 H 17 100 05/04/17 11:10 125 H 16 107/80 05/04/17 11:00 92 H 25 H 05/04/17 10:10 119 H 17 118/86 Intake and Output (Last 8hrs): Intake & Output 05/03/17 05/04/17 05/04/17 22:59 06:59 14:59 Intake Total 869.6 1150.0 882.5 Output Total 2050 870 Balance -1180.4 280.0 882.5 Intake: IV 10 90 100 Intake, IV Amount 859.6 1060.0 782.5 Left Distal Port PICC 64.6 76.0 47.5 Left PICC 480 480 420 Left PICC #2 315 504 315 Output: Gastric Amount 800 250 Right Nares 800 250 Drainage 20 Right Lower Abdomen 20 Urine 450 600 Urine, Voided 450 600 Emesis 800 Other: # Bowel Movements 1 0 0 - Physical Exam Head: Positive for: Atraumatic, Normocephalic. Negative for: Tenderness Pupils: Positive for: PERRL Extroacular Muscles: Positive for: EOMI Mouth: Positive for: Moist Mucous Membranes. Negative for: Dry, Drooling Nose (External): Positive for: Other (NGT in place) Nose (Internal): Positive for: Normal Inspection, Moist Neck: Positive for: Normal Range of Motion. Negative for: JVD, Lymphadenopathy Respiratory/Chest: Positive for: Clear to Auscultation. Negative for: Respiratory Distress, Accessory Muscle Use Cardiovascular: Positive for: Regular Rate and Rhythm, Normal S1, S2 Abdomen: Positive for: Tenderness (mild tenderness of palpation. patient continues to move her arms towards hands on palpation). Negative for: Distention, Guarding Upper Extremity: Positive for: Normal Inspection, Normal ROM, Capillary Refill < 2s. Negative for: Edema Lower Extremity: Positive for: Normal Inspection. Negative for: Edema Neurological: Positive for: CN II-XII Intact Skin: Positive for: Warm, Pale Psychiatric: Positive for: Alert - Medications Active Medications: Active Medications Generic Name Dose Route Start Last Admin Trade Name Freq PRN Reason Stop Dose Admin Acetaminophen 650 mg 04/28/17 20:11 05/02/17 02:00 Tylenol 650mg/20.3ml Solution Ud PO 650 mg Q4 PRN Administration Temperature Fluconazole 100 mls @ 100 mls/hr 04/28/17 10:00 05/04/17 09:25 Diflucan Iv 200 Mg/100 Ml Ns IVPB 100 mls/hr DAILY AGUSTIN Administration Cefepime HCl 1 gm/ Dextrose 50 mls @ 100 mls/hr 05/03/17 10:00 05/04/17 11:07 IVPB 100 mls/hr DAILY AGUSTIN Administration Potassium Chloride 20 meq/ 1,010 mls @ 60 mls/hr 05/03/17 11:15 05/04/17 09: 06 Sodium Chloride IV 60 mls/hr .[id number] AGUSTIN Administration Levetiracetam 500 mg/ Sodium 105 mls @ 420 mls/hr 05/03/17 22:00 05/04/17 09: 17 Chloride IVPB 420 mls/hr Q12H AGUSTIN Administration Heparin Sodium (Porcine) 1,000 1,001 mls @ 63 mls/hr 05/04/17 10:00 05/04/17 12:35 units/ Amino Acids/ IV 05/05/17 01:53 Not Given Electrolytes/Dextrose .[id number] ONE Propofol 1,000 mg in 100 mls @ 1.905 mls/hr 05/03/17 15:39 05/04/17 12:52 Diprivan IV 15 mcg/kg/min .Q24H PRN 5.716 mls/hr TITRATE PER MD ORDER Administration Protocol 5 MCG/KG/MIN Potassium Chloride 20 meq in 100 mls @ 50 mls/hr 05/04/17 13:04 05/04/17 13: 09 Potassium Chloride 20 Meq/100 Ml IVPB 05/04/17 15:03 50 mls/hr ONCE ONE Administration Metoprolol Tartrate 5 mg 05/02/17 19:00 05/04/17 12:38 Lopressor IVP 5 mg Q6H AGUSTIN Administration Multivitamins/Vitamin C 5 ml 04/30/17 12:00 05/04/17 09:18 Multi-Delyn Liquid PO Not Given DAILY AGUSTIN Pantoprazole Sodium 20 mg 04/19/17 18:00 05/04/17 09:17 Protonix Inj IVP 20 mg BID AGUSTIN Administration - Patient Studies Lab Studies: Microbiology Studies 05/02/17 19:07 Urine Culture - Final Urine Gram Positive Cocci 04/28/17 20:00 Blood Culture - Final Blood-Venous NO GROWTH AFTER 5 DAYS Gram Stain - Final TEST NOT PERFORMED 04/28/17 20:00 Blood Culture - Final Blood-Venous NO GROWTH AFTER 5 DAYS Gram Stain - Final TEST NOT PERFORMED 05/02/17 20:41 Blood Culture - Preliminary Blood NO GROWTH AFTER 24 HOURS 05/02/17 20:40 Blood Culture - Preliminary Blood NO GROWTH AFTER 24 HOURS 04/25/17 12:02 Blood Fungal Culture - Preliminary Other: Please Indicate 05/02/17 19:07 Gram Stain - Preliminary Trachasp Lab Studies 05/04/17 05/04/17 05/04/17 Range/Units 11:37 09:05 06:22 WBC (4.8-10.8) K/uL RBC (3.80-5.20) Mil/uL Hgb (11.0-16.0) g/dL Hct (34.0-47.0) % MCV (81.0-99.0) fL MCH (27.0-31.0) pg MCHC (33.0-37.0) g/dL RDW (11.5-14.5) % Plt Count (130-400) K/uL MPV (7.2-11.7) fL Neut % (Auto) (50.0-75.0) % Lymph % (Auto) (20.0-40.0) % [place] % (Auto) (0.0-10.0) % Eos % (Auto) (0.0-4.0) % Baso % (Auto) (0.0-2.0) % Neut # (1.8-7.0) K/uL Lymph # (1.0-4.3) K/uL [place] # (0.0-0.8) K/uL Eos # (0.0-0.7) K/uL Baso # (0.0-0.2) K/uL Puncture Site Rb pCO2 37 (35-45) mm/Hg pO2 182 H (80-100) mm/Hg HCO3 25.2 (21-28) mmol/L ABG pH 7.43 (7.35-7.45) ABG Total CO2 25.7 (22-28) mmol/L ABG O2 Saturation 99.4 H (95-98) % ABG Base Excess 0.4 (-2.0-3.0) mmol/L ABG Hemoglobin 9.3 L (11.7-17.4) g/dL ABG Carboxyhemoglobin 1.3 (0.5-1.5) % POC ABG HHb (Measured) 0.6 (0.0-5.0) % ABG Methemoglobin 1.6 (0.0-3.0) % Daniel Test Na A-a O2 Difference 128.0 mm/Hg Respiratory Index 0.7 Hgb O2 Saturation 96.5 (95.0-98.0) % FiO2 50.0 % Tidal Volume 450 PEEP 5 Sodium 145 (132-148) mmol/L Potassium 3.5 L (3.6-5.2) mmol/L Chloride 109 H (98-107) mmol/L Carbon Dioxide 25 (22-30) mmol/L Anion Gap 14 (10-20) BUN 20 H (7-17) mg/dL Creatinine 0.9 (0.7-1.2) mg/dL Est GFR ( Amer) > 60 Est GFR (Non-Af Amer) > 60 POC Glucose (mg/dL) 110 (65-110) mg/dL Random Glucose 141 H (65-105) mg/dL Calcium 8.0 L (8.6-10.4) mg/dl Phosphorus 3.4 (2.5-4.5) mg/dL Magnesium 1.4 L (1.6-2.3) mg/dL Total Bilirubin 0.7 (0.2-1.3) mg/dL AST 31 (14-36) U/L ALT 35 (9-52) U/L Alkaline Phosphatase 115 (38-126) U/L Total Protein 6.1 L (6.3-8.3) g/dL Albumin 3.1 L (3.5-5.0) g/dL Globulin 3.0 (2.2-3.9) gm/dL Albumin/Globulin Ratio 1.1 (1.0-2.1) 05/04/17 05/03/17 05/03/17 Range/Units 06:22 23:53 17:38 WBC 18.9 H (4.8-10.8) K/uL RBC 3.37 L (3.80-5.20) Mil/uL Hgb 9.5 L (11.0-16.0) g/dL Hct 29.3 L (34.0-47.0) % MCV 87.0 (81.0-99.0) fL MCH 28.3 (27.0-31.0) pg MCHC 32.5 L (33.0-37.0) g/dL RDW 15.8 H (11.5-14.5) % Plt Count 400 (130-400) K/uL MPV 10.4 (7.2-11.7) fL Neut % (Auto) 76.5 H (50.0-75.0) % Lymph % (Auto) 13.1 L (20.0-40.0) % [place] % (Auto) 8.9 (0.0-10.0) % Eos % (Auto) 0.6 (0.0-4.0) % Baso % (Auto) 0.9 (0.0-2.0) % Neut # 14.4 H (1.8-7.0) K/uL Lymph # 2.5 (1.0-4.3) K/uL [place] # 1.7 H (0.0-0.8) K/uL Eos # 0.1 (0.0-0.7) K/uL Baso # 0.2 (0.0-0.2) K/uL Puncture Site pCO2 (35-45) mm/Hg pO2 (80-100) mm/Hg HCO3 (21-28) mmol/L ABG pH (7.35-7.45) ABG Total CO2 (22-28) mmol/L ABG O2 Saturation (95-98) % ABG Base Excess (-2.0-3.0) mmol/L ABG Hemoglobin (11.7-17.4) g/dL ABG Carboxyhemoglobin (0.5-1.5) % POC ABG HHb (Measured) (0.0-5.0) % ABG Methemoglobin (0.0-3.0) % Daniel Test A-a O2 Difference mm/Hg Respiratory Index Hgb O2 Saturation (95.0-98.0) % FiO2 % Tidal Volume PEEP Sodium (132-148) mmol/L Potassium (3.6-5.2) mmol/L Chloride (98-107) mmol/L Carbon Dioxide (22-30) mmol/L Anion Gap (10-20) BUN (7-17) mg/dL Creatinine (0.7-1.2) mg/dL Est GFR ( Amer) Est GFR (Non-Af Amer) POC Glucose (mg/dL) 164 H 95 (65-110) mg/dL Random Glucose (65-105) mg/dL Calcium (8.6-10.4) mg/dl Phosphorus (2.5-4.5) mg/dL Magnesium (1.6-2.3) mg/dL Total Bilirubin (0.2-1.3) mg/dL AST (14-36) U/L ALT (9-52) U/L Alkaline Phosphatase (38-126) U/L Total Protein (6.3-8.3) g/dL Albumin (3.5-5.0) g/dL Globulin (2.2-3.9) gm/dL Albumin/Globulin Ratio (1.0-2.1) Laboratory Results - last 24 hr 05/03/17 05/03/17 05/04/17 17:38 23:53 06:22 WBC 18.9 H RBC 3.37 L Hgb 9.5 L Hct 29.3 L MCV 87.0 MCH 28.3 MCHC 32.5 L RDW 15.8 H Plt Count 400 MPV 10.4 Neut % (Auto) 76.5 H Lymph % (Auto) 13.1 L [place] % (Auto) 8.9 Eos % (Auto) 0.6 Baso % (Auto) 0.9 Neut # 14.4 H Lymph # 2.5 [place] # 1.7 H Eos # 0.1 Baso # 0.2 Puncture Site pCO2 pO2 HCO3 ABG pH ABG Total CO2 ABG O2 Saturation ABG Base Excess ABG Hemoglobin ABG Carboxyhemoglobin POC ABG HHb (Measured) ABG Methemoglobin Daniel Test A-a O2 Difference Respiratory Index Hgb O2 Saturation FiO2 Tidal Volume PEEP Sodium Potassium Chloride Carbon Dioxide Anion Gap BUN Creatinine Est GFR ( Amer) Est GFR (Non-Af Amer) POC Glucose (mg/dL) 95 164 H Random Glucose Calcium Phosphorus Magnesium Total Bilirubin AST ALT Alkaline Phosphatase Total Protein Albumin Globulin Albumin/Globulin Ratio 05/04/17 05/04/17 05/04/17 06:22 09:05 11:37 WBC RBC Hgb Hct MCV MCH MCHC RDW Plt Count MPV Neut % (Auto) Lymph % (Auto) [place] % (Auto) Eos % (Auto) Baso % (Auto) Neut # Lymph # [place] # Eos # Baso # Puncture Site Rb pCO2 37 pO2 182 H HCO3 25.2 ABG pH 7.43 ABG Total CO2 25.7 ABG O2 Saturation 99.4 H ABG Base Excess 0.4 ABG Hemoglobin 9.3 L ABG Carboxyhemoglobin 1.3 POC ABG HHb (Measured) 0.6 ABG Methemoglobin 1.6 Daniel Test Na A-a O2 Difference 128.0 Respiratory Index 0.7 Hgb O2 Saturation 96.5 FiO2 50.0 Tidal Volume 450 PEEP 5 Sodium 145 Potassium 3.5 L Chloride 109 H Carbon Dioxide 25 Anion Gap 14 BUN 20 H Creatinine 0.9 Est GFR ( Amer) > 60 Est GFR (Non-Af Amer) > 60 POC Glucose (mg/dL) 110 Random Glucose 141 H Calcium 8.0 L Phosphorus 3.4 Magnesium 1.4 L Total Bilirubin 0.7 AST 31 ALT 35 Alkaline Phosphatase 115 Total Protein 6.1 L Albumin 3.1 L Globulin 3.0 Albumin/Globulin Ratio 1.1 Fingerstick Blood Sugar Results: 95 Assessment/Plan - Assessment and Plan (Free Text) Assessment: Neuro: Alert, responsive, only verbal to her sisters. History of depression and schizophrenia but meds currently held. Pulm: trach, on vent CV: Hemodynamically stable. Continue metoprolol by mouth twice a day for persistent sinus tachycardia. Hem: Anemia of critical illness. Renal: No acute issues, urine output within normal limits, we will monitor. Endo: no acute issues. 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 Resolution of pancreatitis. Resolution of abdominal pain. Patient is having nausea and vomiting which improved with Reglan IV every 6 hours, but patient still vomits when tube feeding rate exceeds 10ml/hr. J tube removed, NGT inserted, receiveing TPN today. Surgery following. will resume tube feeds per surgery Continue Protonix IV twice a day for ulcerative gastritis which was associated with her gastroparesis. ID: Continue fluconazole for candiduria for 14 days. UC growing gram + cocci DVT proph - SCDs, anticoagulation held because of recent upper GI bleed. Will ambulate patient as much as possible. GI proph - Protonix twice a day claros for strict I/O's during acute illness Code status - full code <Jose Hernandez S - Last Filed: 05/04/17 16:38> CCU Objective - Vital Signs / Intake & Output Vital Signs (Last 4 hours): Vital Signs Pulse Resp BP Pulse Ox 05/04/17 15:00 116 H 16 100 05/04/17 14:10 104 H 16 113/80 100 05/04/17 14:00 114 H 16 100 05/04/17 13:10 107 H 16 113/84 100 05/04/17 13:00 109 H 16 100 Intake and Output (Last 8hrs): Intake & Output 05/04/17 05/04/17 05/04/17 06:59 14:59 22:59 Intake Total 1150.0 1048.2 331.4 Output Total 870 60 Balance 280.0 1048.2 271.4 Intake: IV 90 100 Intake, IV Amount 1060.0 948.2 331.4 Left Distal Port PICC 76.0 53.2 11.4 Left PICC 480 480 120 Left PICC #2 504 415 200 Output: Gastric Amount 250 60 Right Nares 250 60 Drainage 20 Right Lower Abdomen 20 Urine 600 Urine, Voided 600 Other: # Bowel Movements 0 0 0 - Medications Active Medications: Active Medications Generic Name Dose Route Start Last Admin Trade Name Freq PRN Reason Stop Dose Admin Acetaminophen 650 mg 04/28/17 20:11 05/02/17 02:00 Tylenol 650mg/20.3ml Solution Ud PO 650 mg Q4 PRN Administration Temperature Fluconazole 100 mls @ 100 mls/hr 04/28/17 10:00 05/04/17 09:25 Diflucan Iv 200 Mg/100 Ml Ns IVPB 100 mls/hr DAILY AGSUTIN Administration Cefepime HCl 1 gm/ Dextrose 50 mls @ 100 mls/hr 05/03/17 10:00 05/04/17 11:07 IVPB 100 mls/hr DAILY AGUSTIN Administration Potassium Chloride 20 meq/ 1,010 mls @ 60 mls/hr 05/03/17 11:15 05/04/17 09: 06 Sodium Chloride IV 60 mls/hr .[id number] AGUSTIN Administration Levetiracetam 500 mg/ Sodium 105 mls @ 420 mls/hr 05/03/17 22:00 05/04/17 09: 17 Chloride IVPB 420 mls/hr Q12H AGUSTIN Administration Propofol 1,000 mg in 100 mls @ 1.905 mls/hr 05/03/17 15:39 05/04/17 12:52 Diprivan IV 15 mcg/kg/min .Q24H PRN 5.716 mls/hr TITRATE PER MD ORDER Administration Protocol 5 MCG/KG/MIN Metoprolol Tartrate 5 mg 05/02/17 19:00 05/04/17 12:38 Lopressor IVP 5 mg Q6H AGUSTIN Administration Multivitamins/Vitamin C 5 ml 04/30/17 12:00 05/04/17 09:18 Multi-Delyn Liquid PO Not Given DAILY AGUSTIN Pantoprazole Sodium 20 mg 04/19/17 18:00 05/04/17 09:17 Protonix Inj IVP 20 mg BID AGUSTIN Administration - Patient Studies Lab Studies: Microbiology Studies 04/18/17 07:27 Blood Fungal Culture - Preliminary Other: Please Indicate 05/02/17 19:07 Urine Culture - Final Urine Gram Positive Cocci 04/28/17 20:00 Blood Culture - Final Blood-Venous NO GROWTH AFTER 5 DAYS Gram Stain - Final TEST NOT PERFORMED 04/28/17 20:00 Blood Culture - Final Blood-Venous NO GROWTH AFTER 5 DAYS Gram Stain - Final TEST NOT PERFORMED 05/02/17 20:41 Blood Culture - Preliminary Blood NO GROWTH AFTER 24 HOURS 05/02/17 20:40 Blood Culture - Preliminary Blood NO GROWTH AFTER 24 HOURS 04/25/17 12:02 Blood Fungal Culture - Preliminary Other: Please Indicate Lab Studies 05/04/17 05/04/17 05/04/17 Range/Units 12:49 11:37 09:05 WBC (4.8-10.8) K/uL RBC (3.80-5.20) Mil/uL Hgb (11.0-16.0) g/dL Hct (34.0-47.0) % MCV (81.0-99.0) fL MCH (27.0-31.0) pg MCHC (33.0-37.0) g/dL RDW (11.5-14.5) % Plt Count (130-400) K/uL MPV (7.2-11.7) fL Neut % (Auto) (50.0-75.0) % Lymph % (Auto) (20.0-40.0) % [place] % (Auto) (0.0-10.0) % Eos % (Auto) (0.0-4.0) % Baso % (Auto) (0.0-2.0) % Neut # (1.8-7.0) K/uL Lymph # (1.0-4.3) K/uL [place] # (0.0-0.8) K/uL Eos # (0.0-0.7) K/uL Baso # (0.0-0.2) K/uL Puncture Site Rb pCO2 37 (35-45) mm/Hg pO2 182 H (80-100) mm/Hg HCO3 25.2 (21-28) mmol/L ABG pH 7.43 (7.35-7.45) ABG Total CO2 25.7 (22-28) mmol/L ABG O2 Saturation 99.4 H (95-98) % ABG Base Excess 0.4 (-2.0-3.0) mmol/L ABG Hemoglobin 9.3 L (11.7-17.4) g/dL ABG Carboxyhemoglobin 1.3 (0.5-1.5) % POC ABG HHb (Measured) 0.6 (0.0-5.0) % ABG Methemoglobin 1.6 (0.0-3.0) % Daniel Test Na A-a O2 Difference 128.0 mm/Hg Respiratory Index 0.7 Hgb O2 Saturation 96.5 (95.0-98.0) % FiO2 50.0 % Tidal Volume 450 PEEP 5 Sodium (132-148) mmol/L Potassium (3.6-5.2) mmol/L Chloride (98-107) mmol/L Carbon Dioxide (22-30) mmol/L Anion Gap (10-20) BUN (7-17) mg/dL Creatinine (0.7-1.2) mg/dL Est GFR ( Amer) Est GFR (Non-Af Amer) POC Glucose (mg/dL) 110 (65-110) mg/dL Random Glucose (65-105) mg/dL Calcium (8.6-10.4) mg/dl Phosphorus (2.5-4.5) mg/dL Magnesium (1.6-2.3) mg/dL Total Bilirubin (0.2-1.3) mg/dL AST (14-36) U/L ALT (9-52) U/L Alkaline Phosphatase (38-126) U/L Total Protein (6.3-8.3) g/dL Albumin (3.5-5.0) g/dL Globulin (2.2-3.9) gm/dL Albumin/Globulin Ratio (1.0-2.1) Procalcitonin 0.47 (0.19-0.49) NG/ML Levetiracetam mcg/mL 05/04/17 05/04/17 05/03/17 Range/Units 06:22 06:22 23:53 WBC 18.9 H (4.8-10.8) K/uL RBC 3.37 L (3.80-5.20) Mil/uL Hgb 9.5 L (11.0-16.0) g/dL Hct 29.3 L (34.0-47.0) % MCV 87.0 (81.0-99.0) fL MCH 28.3 (27.0-31.0) pg MCHC 32.5 L (33.0-37.0) g/dL RDW 15.8 H (11.5-14.5) % Plt Count 400 (130-400) K/uL MPV 10.4 (7.2-11.7) fL Neut % (Auto) 76.5 H (50.0-75.0) % Lymph % (Auto) 13.1 L (20.0-40.0) % [place] % (Auto) 8.9 (0.0-10.0) % Eos % (Auto) 0.6 (0.0-4.0) % Baso % (Auto) 0.9 (0.0-2.0) % Neut # 14.4 H (1.8-7.0) K/uL Lymph # 2.5 (1.0-4.3) K/uL [place] # 1.7 H (0.0-0.8) K/uL Eos # 0.1 (0.0-0.7) K/uL Baso # 0.2 (0.0-0.2) K/uL Puncture Site pCO2 (35-45) mm/Hg pO2 (80-100) mm/Hg HCO3 (21-28) mmol/L ABG pH (7.35-7.45) ABG Total CO2 (22-28) mmol/L ABG O2 Saturation (95-98) % ABG Base Excess (-2.0-3.0) mmol/L ABG Hemoglobin (11.7-17.4) g/dL ABG Carboxyhemoglobin (0.5-1.5) % POC ABG HHb (Measured) (0.0-5.0) % ABG Methemoglobin (0.0-3.0) % Daniel Test A-a O2 Difference mm/Hg Respiratory Index Hgb O2 Saturation (95.0-98.0) % FiO2 % Tidal Volume PEEP Sodium 145 (132-148) mmol/L Potassium 3.5 L (3.6-5.2) mmol/L Chloride 109 H (98-107) mmol/L Carbon Dioxide 25 (22-30) mmol/L Anion Gap 14 (10-20) BUN 20 H (7-17) mg/dL Creatinine 0.9 (0.7-1.2) mg/dL Est GFR ( Amer) > 60 Est GFR (Non-Af Amer) > 60 POC Glucose (mg/dL) 164 H (65-110) mg/dL Random Glucose 141 H (65-105) mg/dL Calcium 8.0 L (8.6-10.4) mg/dl Phosphorus 3.4 (2.5-4.5) mg/dL Magnesium 1.4 L (1.6-2.3) mg/dL Total Bilirubin 0.7 (0.2-1.3) mg/dL AST 31 (14-36) U/L ALT 35 (9-52) U/L Alkaline Phosphatase 115 (38-126) U/L Total Protein 6.1 L (6.3-8.3) g/dL Albumin 3.1 L (3.5-5.0) g/dL Globulin 3.0 (2.2-3.9) gm/dL Albumin/Globulin Ratio 1.1 (1.0-2.1) Procalcitonin (0.19-0.49) NG/ML Levetiracetam mcg/mL 05/03/17 04/30/17 Range/Units 17:38 06:39 WBC (4.8-10.8) K/uL RBC (3.80-5.20) Mil/uL Hgb (11.0-16.0) g/dL Hct (34.0-47.0) % MCV (81.0-99.0) fL MCH (27.0-31.0) pg MCHC (33.0-37.0) g/dL RDW (11.5-14.5) % Plt Count (130-400) K/uL MPV (7.2-11.7) fL Neut % (Auto) (50.0-75.0) % Lymph % (Auto) (20.0-40.0) % [place] % (Auto) (0.0-10.0) % Eos % (Auto) (0.0-4.0) % Baso % (Auto) (0.0-2.0) % Neut # (1.8-7.0) K/uL Lymph # (1.0-4.3) K/uL [place] # (0.0-0.8) K/uL Eos # (0.0-0.7) K/uL Baso # (0.0-0.2) K/uL Puncture Site pCO2 (35-45) mm/Hg pO2 (80-100) mm/Hg HCO3 (21-28) mmol/L ABG pH (7.35-7.45) ABG Total CO2 (22-28) mmol/L ABG O2 Saturation (95-98) % ABG Base Excess (-2.0-3.0) mmol/L ABG Hemoglobin (11.7-17.4) g/dL ABG Carboxyhemoglobin (0.5-1.5) % POC ABG HHb (Measured) (0.0-5.0) % ABG Methemoglobin (0.0-3.0) % Daniel Test A-a O2 Difference mm/Hg Respiratory Index Hgb O2 Saturation (95.0-98.0) % FiO2 % Tidal Volume PEEP Sodium (132-148) mmol/L Potassium (3.6-5.2) mmol/L Chloride (98-107) mmol/L Carbon Dioxide (22-30) mmol/L Anion Gap (10-20) BUN (7-17) mg/dL Creatinine (0.7-1.2) mg/dL Est GFR ( Amer) Est GFR (Non-Af Amer) POC Glucose (mg/dL) 95 (65-110) mg/dL Random Glucose (65-105) mg/dL Calcium (8.6-10.4) mg/dl Phosphorus (2.5-4.5) mg/dL Magnesium (1.6-2.3) mg/dL Total Bilirubin (0.2-1.3) mg/dL AST (14-36) U/L ALT (9-52) U/L Alkaline Phosphatase (38-126) U/L Total Protein (6.3-8.3) g/dL Albumin (3.5-5.0) g/dL Globulin (2.2-3.9) gm/dL Albumin/Globulin Ratio (1.0-2.1) Procalcitonin (0.19-0.49) NG/ML Levetiracetam 7.1 mcg/mL Laboratory Results - last 24 hr 04/30/17 05/03/17 05/03/17 06:39 17:38 23:53 WBC RBC Hgb Hct MCV MCH MCHC RDW Plt Count MPV Neut % (Auto) Lymph % (Auto) [place] % (Auto) Eos % (Auto) Baso % (Auto) Neut # Lymph # [place] # Eos # Baso # Puncture Site pCO2 pO2 HCO3 ABG pH ABG Total CO2 ABG O2 Saturation ABG Base Excess ABG Hemoglobin ABG Carboxyhemoglobin POC ABG HHb (Measured) ABG Methemoglobin Daniel Test A-a O2 Difference Respiratory Index Hgb O2 Saturation FiO2 Tidal Volume PEEP Sodium Potassium Chloride Carbon Dioxide Anion Gap BUN Creatinine Est GFR ( Amer) Est GFR (Non-Af Amer) POC Glucose (mg/dL) 95 164 H Random Glucose Calcium Phosphorus Magnesium Total Bilirubin AST ALT Alkaline Phosphatase Total Protein Albumin Globulin Albumin/Globulin Ratio Procalcitonin Levetiracetam 7.1 05/04/17 05/04/17 05/04/17 06:22 06:22 09:05 WBC 18.9 H RBC 3.37 L Hgb 9.5 L Hct 29.3 L MCV 87.0 MCH 28.3 MCHC 32.5 L RDW 15.8 H Plt Count 400 MPV 10.4 Neut % (Auto) 76.5 H Lymph % (Auto) 13.1 L [place] % (Auto) 8.9 Eos % (Auto) 0.6 Baso % (Auto) 0.9 Neut # 14.4 H Lymph # 2.5 [place] # 1.7 H Eos # 0.1 Baso # 0.2 Puncture Site Rb pCO2 37 pO2 182 H HCO3 25.2 ABG pH 7.43 ABG Total CO2 25.7 ABG O2 Saturation 99.4 H ABG Base Excess 0.4 ABG Hemoglobin 9.3 L ABG Carboxyhemoglobin 1.3 POC ABG HHb (Measured) 0.6 ABG Methemoglobin 1.6 Daniel Test Na A-a O2 Difference 128.0 Respiratory Index 0.7 Hgb O2 Saturation 96.5 FiO2 50.0 Tidal Volume 450 PEEP 5 Sodium 145 Potassium 3.5 L Chloride 109 H Carbon Dioxide 25 Anion Gap 14 BUN 20 H Creatinine 0.9 Est GFR ( Amer) > 60 Est GFR (Non-Af Amer) > 60 POC Glucose (mg/dL) Random Glucose 141 H Calcium 8.0 L Phosphorus 3.4 Magnesium 1.4 L Total Bilirubin 0.7 AST 31 ALT 35 Alkaline Phosphatase 115 Total Protein 6.1 L Albumin 3.1 L Globulin 3.0 Albumin/Globulin Ratio 1.1 Procalcitonin Levetiracetam 05/04/17 05/04/17 11:37 12:49 WBC RBC Hgb Hct MCV MCH MCHC RDW Plt Count MPV Neut % (Auto) Lymph % (Auto) [place] % (Auto) Eos % (Auto) Baso % (Auto) Neut # Lymph # [place] # Eos # Baso # Puncture Site pCO2 pO2 HCO3 ABG pH ABG Total CO2 ABG O2 Saturation ABG Base Excess ABG Hemoglobin ABG Carboxyhemoglobin POC ABG HHb (Measured) ABG Methemoglobin Daniel Test A-a O2 Difference Respiratory Index Hgb O2 Saturation FiO2 Tidal Volume PEEP Sodium Potassium Chloride Carbon Dioxide Anion Gap BUN Creatinine Est GFR ( Amer) Est GFR (Non-Af Amer) POC Glucose (mg/dL) 110 Random Glucose Calcium Phosphorus Magnesium Total Bilirubin AST ALT Alkaline Phosphatase Total Protein Albumin Globulin Albumin/Globulin Ratio Procalcitonin 0.47 Levetiracetam Assessment/Plan (1) SMAS (superior mesenteric artery syndrome) Current Visit: Yes Status: Acute Comment: (2) Acute renal failure Current Visit: Yes Status: Acute (3) Mental retardation Current Visit: No Status: Acute Attending/Attestation - Attestation I have personally seen and examined this patient.: Yes I have fully participated in the care of the patient.: Yes I have reviewed all pertinent clinical information: Yes Notes (Text): 05/04/17 16:37 patient seen and examined in the intensive care unit. Status post tracheostomy on ventilator support Being treated for pneumonia On TPN Consider NGT feeding IV sedation as needed
[2017-05-04] MEDS ORDERED: Vancomycin 1 gm/NS 200 ml 1 GM/200 ML BAG IVPB STA (14:46)
--- NOTE | 2017-05-04 18:00 | CP.PCM.PN ---
Subjective - Date & Time of Evaluation Date of Evaluation: 05/04/17 Time of Evaluation: 09:00 - Subjective Subjective: fever on and off back on vent IV rx in progress recently recultures Objective - Vital Signs/Intake and Output Vital Signs (last 24 hours): Temp Pulse Resp BP Pulse Ox 100.1 F H 125 H 19 105/71 100 05/04/17 16:00 05/04/17 17:00 05/04/17 17:00 05/04/17 16:10 05/04/17 17:00 Intake and Output: 05/04/17 05/04/17 06:59 18:59 Intake Total 1670.5 1445.3 Output Total 870 130 Balance 800.5 1315.3 - Medications Medications: Current Medications Acetaminophen (Tylenol 650mg/20.3ml Solution Ud) 650 mg PO Q4 PRN PRN Reason: Temperature Last Admin: 05/02/17 02:00 Dose: 650 mg Fluconazole (Diflucan Iv 200 Mg/100 Ml Ns) 100 mls @ 100 mls/hr IVPB DAILY [facility] Last Admin: 05/04/17 09:25 Dose: 100 mls/hr Cefepime HCl 1 gm/ Dextrose 50 mls @ 100 mls/hr IVPB DAILY [facility] Last Admin: 05/04/17 11:07 Dose: 100 mls/hr Potassium Chloride 20 meq/ (Sodium Chloride) 1,010 mls @ 60 mls/hr IV .[id number] [facility] Last Admin: 05/04/17 09:06 Dose: 60 mls/hr Levetiracetam 500 mg/ Sodium (Chloride) 105 mls @ 420 mls/hr IVPB Q12H [facility] Last Admin: 05/04/17 09:17 Dose: 420 mls/hr Propofol (Diprivan) 1,000 mg in 100 mls @ 1.905 mls/hr IV .Q24H PRN; Protocol; 5 MCG/KG/MIN PRN Reason: TITRATE PER MD ORDER Last Admin: 05/04/17 12:52 Dose: 15 mcg/kg/min, 5.716 mls/hr Metoprolol Tartrate (Lopressor) 5 mg IVP Q6H [facility] Last Admin: 05/04/17 12:38 Dose: 5 mg Multivitamins/Vitamin C (Multi-Delyn Liquid) 5 ml PO DAILY [facility] Last Admin: 05/04/17 09:18 Dose: Not Given Pantoprazole Sodium (Protonix Inj) 20 mg IVP BID [facility] Last Admin: 05/04/17 17:36 Dose: 20 mg - Labs Labs: 05/04/17 06:22 05/04/17 06:22 PT 14.0 SECONDS (9.7-12.2) H 04/25/17 06:25 INR 1.2 04/25/17 06:25 APTT 32 SECONDS (21-34) 04/25/17 06:25 - Constitutional Appears: Non-toxic, Cachectic - Head Exam Head Exam: NORMOCEPHALIC - Eye Exam Eye Exam: PERRL - ENT Exam ENT Exam: Mucous Membranes Dry - Neck Exam Neck Exam: absent: Lymphadenopathy - Respiratory Exam Respiratory Exam: Decreased Breath Sounds - Cardiovascular Exam Cardiovascular Exam: REGULAR RHYTHM, +S1, +S2 - GI/Abdominal Exam GI & Abdominal Exam: Distended, Soft - Rectal Exam Rectal Exam: Deferred Assessment and Plan (1) Acute pancreatitis Status: Acute (2) Leucocytosis Status: Acute
--- NOTE | 2017-05-04 18:05 | CP.PCM.PN ---
Subjective - Date & Time of Evaluation Date of Evaluation: 05/04/17 Time of Evaluation: 15:15 - Subjective Subjective: General Surgery Pt S&E, NAEO. Pt non verbal. Does not appear in pain. No further emesis. NGT output minimal. Objective - Vital Signs/Intake and Output Vital Signs (last 24 hours): Temp Pulse Resp BP Pulse Ox 100.1 F H 125 H 19 105/71 100 05/04/17 16:00 05/04/17 17:00 05/04/17 17:00 05/04/17 16:10 05/04/17 17:00 Intake and Output: 05/04/17 05/04/17 06:59 18:59 Intake Total 1670.5 1445.3 Output Total 870 130 Balance 800.5 1315.3 - Medications Medications: Current Medications Acetaminophen (Tylenol 650mg/20.3ml Solution Ud) 650 mg PO Q4 PRN PRN Reason: Temperature Last Admin: 05/02/17 02:00 Dose: 650 mg Fluconazole (Diflucan Iv 200 Mg/100 Ml Ns) 100 mls @ 100 mls/hr IVPB DAILY [facility] Last Admin: 05/04/17 09:25 Dose: 100 mls/hr Cefepime HCl 1 gm/ Dextrose 50 mls @ 100 mls/hr IVPB DAILY [facility] Last Admin: 05/04/17 11:07 Dose: 100 mls/hr Potassium Chloride 20 meq/ (Sodium Chloride) 1,010 mls @ 60 mls/hr IV .[id number] [facility] Last Admin: 05/04/17 09:06 Dose: 60 mls/hr Levetiracetam 500 mg/ Sodium (Chloride) 105 mls @ 420 mls/hr IVPB Q12H [facility] Last Admin: 05/04/17 09:17 Dose: 420 mls/hr Propofol (Diprivan) 1,000 mg in 100 mls @ 1.905 mls/hr IV .Q24H PRN; Protocol; 5 MCG/KG/MIN PRN Reason: TITRATE PER MD ORDER Last Admin: 05/04/17 12:52 Dose: 15 mcg/kg/min, 5.716 mls/hr Metoprolol Tartrate (Lopressor) 5 mg IVP Q6H [facility] Last Admin: 05/04/17 12:38 Dose: 5 mg Multivitamins/Vitamin C (Multi-Delyn Liquid) 5 ml PO DAILY [facility] Last Admin: 05/04/17 09:18 Dose: Not Given Pantoprazole Sodium (Protonix Inj) 20 mg IVP BID [facility] Last Admin: 05/04/17 17:36 Dose: 20 mg - Labs Labs: 05/04/17 06:22 05/04/17 06:22 PT 14.0 SECONDS (9.7-12.2) H 04/25/17 06:25 INR 1.2 04/25/17 06:25 APTT 32 SECONDS (21-34) 04/25/17 06:25 - Constitutional Appears: Non-toxic, No Acute Distress - Head Exam Head Exam: ATRAUMATIC, NORMOCEPHALIC - Respiratory Exam Respiratory Exam: NORMAL BREATHING PATTERN. absent: Respiratory Distress - GI/Abdominal Exam GI & Abdominal Exam: Soft. absent: Distended, Firm, Guarding, Rigid Additional comments: incision C/D/I - Neurological Exam Neurological Exam: Alert, Awake, Oriented x3 Assessment and Plan - Assessment and Plan (Free Text) Assessment: 36F s/p gastrojejunostomy w/ bypass and feeding jejunostomy POD#16 Plan: Resume tube feeding via NGT, monitor for residuals, start low. Monitor for emesis Reglan/zofran for vomiting Further mgmt per primary/ICU D/W Dr Andrea Seay PGY4
[2017-05-04] MEDS: Linezolid 600 mg in D5W 300 ml 600 MG/300 ML BAG IVPB SCH (21:33)
[2017-05-05] MEDS: Propofol 10 mg/ml 1,000 MG/100 ML VIAL IV PRN (01:15)
[2017-05-05] MEDS: Metoprolol 1 mg/ml Inj IVP SCH ×4 (01:25→18:40)
[2017-05-05] MEDS: Potassium Ch 20mEq in D5-1/2NS 1,000 ML IV SCH ×3 (01:38→21:26)
[2017-05-05 05:15] LABS: ARTERIAL BLOOD GAS HCO3 24.8 mmol/L (21-28); ARTERIAL BLOOD GAS HEMOGLOBIN 7.8 g/dL (11.7-17.4); ARTERIAL BLOOD GAS O2 SAT 99.9 % (95-98); ARTERIAL BLOOD GAS PCO2 35 mm/Hg (35-45); ARTERIAL BLOOD GAS PH 7.44 (7.35-7.45); ARTERIAL BLOOD GAS PO2 224 mm/Hg (80-100); ARTERIAL BLOOD GAS TCO2 24.9 mmol/L (22-28)
--- NOTE | 2017-05-05 06:31 | CP.PCM.PN ---
Subjective - Date & Time of Evaluation Date of Evaluation: 05/05/17 Time of Evaluation: 06:29 - Subjective Subjective: Ms. Rivera was seen and examined at the bedside in ICU. She is awake. but not following any commands. She has trach connected to a mechanical ventilator on a PRVC mode. She is currently receiving Propofol at 15.75 mcg/kg/min for sedation. She can move all her extremities spontaneously, with a bilateral upper extremities hand mitten for patient safety. Her heart rate is above 100' s. She has a right nasal NGT for nutrition and medication purposes.She also has bilateral lower extremities SCD's. There was no untoward events overnight. Objective - Vital Signs/Intake and Output Vital Signs (last 24 hours): Temp Pulse Resp BP Pulse Ox 99.6 F 119 H 16 107/79 100 05/05/17 04:00 05/05/17 06:00 05/05/17 06:00 05/05/17 04:10 05/05/17 06:00 Intake and Output: 05/04/17 05/05/17 18:59 06:59 Intake Total 1521.0 1024.1 Output Total 180 Balance 1341.0 1024.1 - Medications Medications: Current Medications Acetaminophen (Tylenol 650mg/20.3ml Solution Ud) 650 mg PO Q4 PRN PRN Reason: Temperature Last Admin: 05/02/17 02:00 Dose: 650 mg Fluconazole (Diflucan Iv 200 Mg/100 Ml Ns) 100 mls @ 100 mls/hr IVPB DAILY [facility] Last Admin: 05/04/17 09:25 Dose: 100 mls/hr Cefepime HCl 1 gm/ Dextrose 50 mls @ 100 mls/hr IVPB DAILY [facility] Last Admin: 05/04/17 11:07 Dose: 100 mls/hr Levetiracetam 500 mg/ Sodium (Chloride) 105 mls @ 420 mls/hr IVPB Q12H [facility] Last Admin: 05/04/17 21:20 Dose: 420 mls/hr Propofol (Diprivan) 1,000 mg in 100 mls @ 1.905 mls/hr IV .Q24H PRN; Protocol; 5 MCG/KG/MIN PRN Reason: TITRATE PER MD ORDER Last Admin: 05/05/17 01:15 Dose: 15 mcg/kg/min, 5.716 mls/hr Linezolid (Zyvox 600mg/300ml D5w) 600 mg in 300 mls @ 200 mls/hr IVPB Q12 [facility] Last Admin: 05/04/17 21:33 Dose: 200 mls/hr Potassium Chloride/Dextrose/Sod Cl (Potassium Chl 20 Meq In D5-1/2ns) 1,000 mls @ 60 mls/hr IV .[id number] [facility] Last Admin: 05/05/17 01:38 Dose: 60 mls/hr Metoprolol Tartrate (Lopressor) 5 mg IVP Q6H [facility] Last Admin: 05/05/17 01:25 Dose: 5 mg Multivitamins/Vitamin C (Multi-Delyn Liquid) 5 ml PO DAILY [facility] Last Admin: 05/04/17 09:18 Dose: Not Given Pantoprazole Sodium (Protonix Inj) 20 mg IVP BID [facility] Last Admin: 05/04/17 17:36 Dose: 20 mg - Labs Labs: 05/04/17 06:22 05/04/17 06:22 PT 14.0 SECONDS (9.7-12.2) H 04/25/17 06:25 INR 1.2 04/25/17 06:25 APTT 32 SECONDS (21-34) 04/25/17 06:25 - Constitutional Appears: No Acute Distress - Head Exam Head Exam: NORMAL INSPECTION - Neurological Exam Neurological Exam: Awake Neuro motor strength exam: Left Upper Extremity: 5, Right Upper Extremity: 5, Left Lower Extremity: 5, Right Lower Extremity: 5 Additional comments: She moves all her extremities spontaneously but not able to follow commands. Assessment and Plan (1) Focal seizure Assessment & Plan: Case discussed with Dr. Bryant, continue all current medical regimen. The EEG result showed no seizure activity per neurologist. Treat any underlying infection and electrolyte abnormalities.There is no new recommendation from neurology. Status: Acute
[2017-05-05 06:42] LABS: BASO # 0.1 K/uL (0.0-0.2); BASO % 0.9 % (0.0-2.0); EOS # 0.4 K/uL (0.0-0.7); EOS % 2.7 % (0.0-4.0); LYMPH # 2.3 K/uL (1.0-4.3); LYMPH % 13.8 % (20.0-40.0); MEAN CELL VOLUME 86.3 fL (81.0-99.0); MEAN CORPUSCULAR HEMOGLOBIN 28.8 pg (27.0-31.0); MEAN CORPUSCULAR HGB CONC 33.4 g/dL (33.0-37.0); MEAN PLATELET VOLUME 10.7 fL (7.2-11.7); MONO # 1.5 K/uL (0.0-0.8); MONO % 8.9 % (0.0-10.0); NEUT # 12.1 K/uL (1.8-7.0); NEUT % 73.7 % (50.0-75.0); RBC 2.78 Mil/uL (3.80-5.20); RED CELL DISTRIBUTION WIDTH 15.5 % (11.5-14.5); WHITE BLOOD COUNT 16.4 K/uL (4.8-10.8)
[2017-05-05 06:48] LABS: ALB/GLOB RATIO 0.9 (1.0-2.1); ALBUMIN 2.7 g/dL (3.5-5.0); ALT/SGPT 51 U/L (9-52); AST/SGOT 56 U/L (14-36); BLOOD UREA NITROGEN 13 mg/dL (7-17); CALCIUM 8.4 mg/dl (8.6-10.4); GFR AFRICAN-AMERICAN > 60; GFR NON-AFRICAN AMERICAN > 60
--- NOTE | 2017-05-05 07:35 | CP.PCM.PN ---
<Lavern Long - Last Filed: 05/05/17 08:03> Subjective - Date & Time of Evaluation Date of Evaluation: 05/05/17 Time of Evaluation: 07:00 - Subjective Subjective: GI progress note for Dr Lau's service. Patient remains afebrile, low grade temp of 100.1, 4 pm yesterday. Patient still on vented trach, alert and wake. No acute events. NGT drained billous fluid, about 50 cc, with small billous fluid in the ostomy. 12 point ROS unable to obtain due to mental status. Objective - Vital Signs/Intake and Output Vital Signs (last 24 hours): Temp Pulse Resp BP Pulse Ox 99.6 F 119 H 16 107/79 100 05/05/17 04:00 05/05/17 06:00 05/05/17 06:00 05/05/17 04:10 05/05/17 06:00 Intake and Output: 05/05/17 05/05/17 06:59 18:59 Intake Total 1024.1 Balance 1024.1 - Medications Medications: Current Medications Acetaminophen (Tylenol 650mg/20.3ml Solution Ud) 650 mg PO Q4 PRN PRN Reason: Temperature Last Admin: 05/02/17 02:00 Dose: 650 mg Fluconazole (Diflucan Iv 200 Mg/100 Ml Ns) 100 mls @ 100 mls/hr IVPB DAILY [facility] Last Admin: 05/04/17 09:25 Dose: 100 mls/hr Cefepime HCl 1 gm/ Dextrose 50 mls @ 100 mls/hr IVPB DAILY [facility] Last Admin: 05/04/17 11:07 Dose: 100 mls/hr Levetiracetam 500 mg/ Sodium (Chloride) 105 mls @ 420 mls/hr IVPB Q12H [facility] Last Admin: 05/04/17 21:20 Dose: 420 mls/hr Propofol (Diprivan) 1,000 mg in 100 mls @ 1.905 mls/hr IV .Q24H PRN; Protocol; 5 MCG/KG/MIN PRN Reason: TITRATE PER MD ORDER Last Admin: 05/05/17 01:15 Dose: 15 mcg/kg/min, 5.716 mls/hr Linezolid (Zyvox 600mg/300ml D5w) 600 mg in 300 mls @ 200 mls/hr IVPB Q12 [facility] Last Admin: 05/04/17 21:33 Dose: 200 mls/hr Potassium Chloride/Dextrose/Sod Cl (Potassium Chl 20 Meq In D5-1/2ns) 1,000 mls @ 60 mls/hr IV .[id number] [facility] Last Admin: 05/05/17 01:38 Dose: 60 mls/hr Metoprolol Tartrate (Lopressor) 5 mg IVP Q6H [facility] Last Admin: 05/05/17 07:18 Dose: 5 mg Multivitamins/Vitamin C (Multi-Delyn Liquid) 5 ml PO DAILY [facility] Last Admin: 05/04/17 09:18 Dose: Not Given Pantoprazole Sodium (Protonix Inj) 20 mg IVP BID [facility] Last Admin: 05/04/17 17:36 Dose: 20 mg - Labs Labs: 05/05/17 06:29 05/05/17 06:28 PT 14.0 SECONDS (9.7-12.2) H 04/25/17 06:25 INR 1.2 04/25/17 06:25 APTT 32 SECONDS (21-34) 04/25/17 06:25 - Constitutional Appears: No Acute Distress, Older Than Stated Age, Cachectic, Chronically Ill - Head Exam Head Exam: ATRAUMATIC, NORMAL INSPECTION, NORMOCEPHALIC - Eye Exam Eye Exam: Normal appearance - ENT Exam ENT Exam: Mucous Membranes Moist - Neck Exam Neck Exam: Normal Inspection - Respiratory Exam Respiratory Exam: Clear to Ausculation Bilateral, NORMAL BREATHING PATTERN. absent: Rales, Rhonchi, Wheezes, Respiratory Distress, Stridor - Cardiovascular Exam Cardiovascular Exam: Tachycardia, REGULAR RHYTHM, +S1, +S2. absent: Gallop, JVD , Rubs - GI/Abdominal Exam GI & Abdominal Exam: Soft, Normal Bowel Sounds. absent: Distended, Firm, Guarding, Rigid, Tenderness Additional comments: + vertical surgical incision with zoraida in place. ostomy with small billous fluid. - Extremities Exam Extremities Exam: Normal Inspection. 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 Due to fever, patient had CT abdomen and pelvis on 04/27 revealing no intrabdiominal abscess, and pneumonia. Due to inability to tolerate tube feeding, patient had small bowel series, revealing flow retrograde to stomach through dilated small bowel loops, with jejunostomy in proximal limb. Patient was placed back on vent and sedated due to agitations last night. This AM patient appears awake and stable. 1. SMA syndrome- s/p gastro-jejunostomy as well as a feeding jejunostomy 2 weeks ago, s/p removal of feeding jejunostomy and placement of NGT by surgery. 2. Fever- resolving 3. pancreatitis-resolved 4. ARF s/p HD-improved, HD on hold 5. Aspiration Pneumonia, VDRF extubated s/p trach 6. Nausea and vomiting s/p ngt, currently clamped. Plan: - Trial of NGT feeding as per surgery - Retirement nutritional plan as per surgery. - Continue with ppi - Continue with medical management as per primary and ICU team. Patient seen, examined and case discussed with Dr Lau. <Rivas Lau - Last Filed: 05/05/17 12:59> Objective - Vital Signs/Intake and Output Vital Signs (last 24 hours): Temp Pulse Resp BP Pulse Ox 99.6 F 115 H 26 H 97/57 L 100 05/05/17 04:00 05/05/17 12:10 05/05/17 12:10 05/05/17 12:10 05/05/17 12:00 Intake and Output: 05/05/17 05/05/17 06:59 18:59 Intake Total 1024.1 65.7 Output Total 430 Balance 1024.1 -364.3 - Medications Medications: Current Medications Acetaminophen (Tylenol 650mg/20.3ml Solution Ud) 650 mg PO Q4 PRN PRN Reason: Temperature Last Admin: 05/02/17 02:00 Dose: 650 mg Fluconazole (Diflucan Iv 200 Mg/100 Ml Ns) 100 mls @ 100 mls/hr IVPB DAILY [facility] Last Admin: 05/05/17 10:58 Dose: 100 mls/hr Cefepime HCl 1 gm/ Dextrose 50 mls @ 100 mls/hr IVPB DAILY [facility] Last Admin: 05/05/17 10:58 Dose: 100 mls/hr Levetiracetam 500 mg/ Sodium (Chloride) 105 mls @ 420 mls/hr IVPB Q12H [facility] Last Admin: 05/05/17 10:58 Dose: 420 mls/hr Propofol (Diprivan) 1,000 mg in 100 mls @ 1.905 mls/hr IV .Q24H PRN; Protocol; 5 MCG/KG/MIN PRN Reason: TITRATE PER MD ORDER Last Admin: 05/05/17 01:15 Dose: 15 mcg/kg/min, 5.716 mls/hr Linezolid (Zyvox 600mg/300ml D5w) 600 mg in 300 mls @ 200 mls/hr IVPB Q12 [facility] Last Admin: 05/05/17 10:59 Dose: 200 mls/hr Potassium Chloride/Dextrose/Sod Cl (Potassium Chl 20 Meq In D5-1/2ns) 1,000 mls @ 60 mls/hr IV .[id number] [facility] Last Admin: 05/05/17 01:38 Dose: 60 mls/hr Lorazepam (Ativan) 0.5 mg IVP Q6H PRN PRN Reason: Anxiety Metoprolol Tartrate (Lopressor) 5 mg IVP Q6H [facility] Last Admin: 05/05/17 07:18 Dose: 5 mg Multivitamins/Vitamin C (Multi-Delyn Liquid) 5 ml PO DAILY [facility] Last Admin: 05/05/17 10:59 Dose: 5 ml Pantoprazole Sodium (Protonix Inj) 20 mg IVP BID [facility] Last Admin: 05/05/17 10:58 Dose: 20 mg Quetiapine Fumarate (Seroquel) 200 mg PO BID [facility] Last Admin: 05/05/17 10:58 Dose: 200 mg - Labs Labs: 05/05/17 06:29 05/05/17 06:28 PT 14.0 SECONDS (9.7-12.2) H 04/25/17 06:25 INR 1.2 04/25/17 06:25 APTT 32 SECONDS (21-34) 04/25/17 06:25 Attending/Attestation - Attestation I have personally seen and examined this patient.: Yes I have fully participated in the care of the patient.: Yes I have reviewed all pertinent clinical information, including history, physical exam and plan: Yes Notes (Text): 05/05/17 12:54 I have seen and examined patient with GI fellow and biomedical equipment specialist. No acute events overnight. She continues to have low grade fever but is seen resting in bed comfortably. NGT in place with approximately 50 cc bilious output overnight , similar output present in ostomy bag as well. Schizophrenia, non-verbal at baseline Resolved pancreatitis Gastric bezoar, obstruction secondary to possible SMA syndrome s/p gastrojejunostomy with boby-en-y approach, ostomy Nausea, vomiting, s/p surgical removal of feeding jejunostomy - Patient has been placed back on PPN by medical team, not advisable given ongoing infectious treatment - Would attempt tube feeding via NGT and monitor clinical response - Follow up surgical recommendations regarding senior care feeding options - Continue with antibiotic therapy as per medical team - No further planned GI intervention, will sign off case. Please reconsult as necessary, thank you.
--- NOTE | 2017-05-05 09:34 | CP.PCM.PN ---
Subjective - Date & Time of Evaluation Date of Evaluation: 05/05/17 Time of Evaluation: 09:31 - Subjective Subjective: Alert, same confusional state with trach renal function has normalized, Na stable on GT feeds mag low UO less Objective - Vital Signs/Intake and Output Vital Signs (last 24 hours): Temp Pulse Resp BP Pulse Ox 99.6 F 119 H 16 107/79 100 05/05/17 04:00 05/05/17 06:00 05/05/17 06:00 05/05/17 04:10 05/05/17 06:00 Intake and Output: 05/05/17 05/05/17 06:59 18:59 Intake Total 1024.1 65.7 Output Total 430 Balance 1024.1 -364.3 - Medications Medications: Current Medications Acetaminophen (Tylenol 650mg/20.3ml Solution Ud) 650 mg PO Q4 PRN PRN Reason: Temperature Last Admin: 05/02/17 02:00 Dose: 650 mg Fluconazole (Diflucan Iv 200 Mg/100 Ml Ns) 100 mls @ 100 mls/hr IVPB DAILY [facility] Last Admin: 05/04/17 09:25 Dose: 100 mls/hr Cefepime HCl 1 gm/ Dextrose 50 mls @ 100 mls/hr IVPB DAILY [facility] Last Admin: 05/04/17 11:07 Dose: 100 mls/hr Levetiracetam 500 mg/ Sodium (Chloride) 105 mls @ 420 mls/hr IVPB Q12H [facility] Last Admin: 05/04/17 21:20 Dose: 420 mls/hr Propofol (Diprivan) 1,000 mg in 100 mls @ 1.905 mls/hr IV .Q24H PRN; Protocol; 5 MCG/KG/MIN PRN Reason: TITRATE PER MD ORDER Last Admin: 05/05/17 01:15 Dose: 15 mcg/kg/min, 5.716 mls/hr Linezolid (Zyvox 600mg/300ml D5w) 600 mg in 300 mls @ 200 mls/hr IVPB Q12 [facility] Last Admin: 05/04/17 21:33 Dose: 200 mls/hr Potassium Chloride/Dextrose/Sod Cl (Potassium Chl 20 Meq In D5-1/2ns) 1,000 mls @ 60 mls/hr IV .[id number] [facility] Last Admin: 05/05/17 01:38 Dose: 60 mls/hr Metoprolol Tartrate (Lopressor) 5 mg IVP Q6H [facility] Last Admin: 05/05/17 07:18 Dose: 5 mg Multivitamins/Vitamin C (Multi-Delyn Liquid) 5 ml PO DAILY [facility] Last Admin: 05/04/17 09:18 Dose: Not Given Pantoprazole Sodium (Protonix Inj) 20 mg IVP BID [facility] Last Admin: 05/04/17 17:36 Dose: 20 mg - Labs Labs: 05/05/17 06:29 05/05/17 06:28 PT 14.0 SECONDS (9.7-12.2) H 04/25/17 06:25 INR 1.2 04/25/17 06:25 APTT 32 SECONDS (21-34) 04/25/17 06:25 - Constitutional Appears: No Acute Distress, Chronically Ill - Head Exam Head Exam: ATRAUMATIC, NORMAL INSPECTION - Eye Exam Eye Exam: EOMI, Normal appearance - Neck Exam Neck Exam: Normal Inspection. absent: Tenderness - Respiratory Exam Respiratory Exam: Clear to Ausculation Bilateral, NORMAL BREATHING PATTERN - Cardiovascular Exam Cardiovascular Exam: REGULAR RHYTHM, +S1 - GI/Abdominal Exam GI & Abdominal Exam: Soft. absent: Tenderness - Extremities Exam Extremities Exam: Normal Inspection. absent: Tenderness - Neurological Exam Neurological Exam: Awake, CN II-XII Intact - Skin Skin Exam: Dry, Warm Assessment and Plan (1) JIMBO (acute kidney injury) Status: Resolved (2) Acute pancreatitis Status: Acute (3) SBO (small bowel obstruction) Status: Acute (4) Schizophrenia Status: Acute - Assessment and Plan (Free Text) Plan: Replete mag follow lytes, renal function continue ICU / vent care
[2017-05-05] MEDS: Fluconazole IV 200mg/100 ml NS 100 ML IVPB SCH (10:58)
[2017-05-05] MEDS: levETIRAcetam 500 MG in Sodium Chloride 0.9% 100 ML IVPB SCH ×2 (10:58→21:20)
[2017-05-05] MEDS: Multiple Vitamins Oral Solution PO SCH (10:59)
[2017-05-05] MEDS: Linezolid 600 mg in D5W 300 ml 600 MG/300 ML BAG IVPB SCH ×2 (10:59→21:35)
--- NOTE | 2017-05-05 15:42 | CP.PCM.PN ---
Subjective - Date & Time of Evaluation Date of Evaluation: 05/05/17 Time of Evaluation: 07:25 - Subjective Subjective: General Surgery Pt S&E, NAEO. Pt non verbal. Does not appear in pain. NGT was to suction. Tube feeds off. Objective - Vital Signs/Intake and Output Vital Signs (last 24 hours): Temp Pulse Resp BP Pulse Ox 99.2 F 115 H 26 H 97/57 L 100 05/05/17 12:00 05/05/17 12:10 05/05/17 12:10 05/05/17 12:10 05/05/17 12:00 Intake and Output: 05/05/17 05/05/17 06:59 18:59 Intake Total 1024.1 602.8 Output Total 1310 Balance 1024.1 -707.2 - Medications Medications: Current Medications Acetaminophen (Tylenol 650mg/20.3ml Solution Ud) 650 mg PO Q4 PRN PRN Reason: Temperature Last Admin: 05/02/17 02:00 Dose: 650 mg Fluconazole (Diflucan Iv 200 Mg/100 Ml Ns) 100 mls @ 100 mls/hr IVPB DAILY [facility] Last Admin: 05/05/17 10:58 Dose: 100 mls/hr Cefepime HCl 1 gm/ Dextrose 50 mls @ 100 mls/hr IVPB DAILY [facility] Last Admin: 05/05/17 10:58 Dose: 100 mls/hr Levetiracetam 500 mg/ Sodium (Chloride) 105 mls @ 420 mls/hr IVPB Q12H [facility] Last Admin: 05/05/17 10:58 Dose: 420 mls/hr Propofol (Diprivan) 1,000 mg in 100 mls @ 1.905 mls/hr IV .Q24H PRN; Protocol; 5 MCG/KG/MIN PRN Reason: TITRATE PER MD ORDER Last Admin: 05/05/17 01:15 Dose: 15 mcg/kg/min, 5.716 mls/hr Linezolid (Zyvox 600mg/300ml D5w) 600 mg in 300 mls @ 200 mls/hr IVPB Q12 [facility] Last Admin: 05/05/17 10:59 Dose: 200 mls/hr Potassium Chloride/Dextrose/Sod Cl (Potassium Chl 20 Meq In D5-1/2ns) 1,000 mls @ 60 mls/hr IV .[id number] [facility] Last Admin: 05/05/17 01:38 Dose: 60 mls/hr Lorazepam (Ativan) 0.5 mg IVP Q6H PRN PRN Reason: Anxiety Metoprolol Tartrate (Lopressor) 5 mg IVP Q6H [facility] Last Admin: 05/05/17 07:18 Dose: 5 mg Multivitamins/Vitamin C (Multi-Delyn Liquid) 5 ml PO DAILY [facility] Last Admin: 05/05/17 10:59 Dose: 5 ml Pantoprazole Sodium (Protonix Inj) 20 mg IVP BID [facility] Last Admin: 05/05/17 10:58 Dose: 20 mg Quetiapine Fumarate (Seroquel) 200 mg PO BID [facility] Last Admin: 05/05/17 10:58 Dose: 200 mg - Labs Labs: 05/05/17 06:29 05/05/17 06:28 PT 14.0 SECONDS (9.7-12.2) H 04/25/17 06:25 INR 1.2 04/25/17 06:25 APTT 32 SECONDS (21-34) 04/25/17 06:25 - Constitutional Appears: Non-toxic, No Acute Distress - Head Exam Head Exam: ATRAUMATIC, NORMOCEPHALIC - Eye Exam Eye Exam: EOMI - Respiratory Exam Respiratory Exam: NORMAL BREATHING PATTERN. absent: Respiratory Distress - GI/Abdominal Exam GI & Abdominal Exam: Soft. absent: Distended, Firm, Guarding, Rigid, Tenderness Additional comments: Incision C/D/I ostomy pink, viable with minimal bile/succus output - Neurological Exam Neurological Exam: Alert, Awake, Oriented x3 - Skin Skin Exam: Dry, Warm Assessment and Plan - Assessment and Plan (Free Text) Assessment: 36F s/p gastrojejunostomy w/ bypass and feeding jejunostomy POD#17 Plan: Resume tube feeding via NGT, monitor for residuals q4h, start @ 10cc/h. Call with residuals Monitor for emesis Reglan/zofran for vomiting D/W Dr. Andrea Seay PGY4
--- NOTE | 2017-05-05 17:30 | CP.CCUPN ---
CCU Subjective - Physician Review Subjective (Free Text): 05/05/17 17:26 Patient seen and examined at bedside. Patient with prolonged ICu course with multiple diagnosis, with trach, PEJ, NG tube, Renal failure (requiring HD for few days), sepsis (on cefepime/linezolid), currently getting NG tube feeds (as per surgery input). Patient on low dose propofol (as without mild sedation, patient's HR increases to 140s. Overnight events reviewed Critical Care Time Spent (in minutes): 32 CCU Objective - Vital Signs / Intake & Output Vital Signs (Last 4 hours): Vital Signs Pulse Resp BP Pulse Ox 05/05/17 17:00 116 H 16 100 05/05/17 16:00 124 H 20 100 05/05/17 15:00 121 H 100 05/05/17 14:10 115 H 16 99/69 L 100 05/05/17 14:00 128 H 16 100 Intake and Output (Last 8hrs): Intake & Output 05/05/17 05/05/17 05/05/17 06:59 14:59 22:59 Intake Total 711.3 1974.2 197.1 Output Total 1310 Balance 711.3 664.2 197.1 Intake: IV 5.7 Intake, IV Amount 705.6 1904.2 197.1 Left Distal Port PICC 45.6 34.2 17.1 Left PICC 1360 180 Left PICC #2 660 510 Oral 50 Tube Feeding 0 20 Output: Gastric Amount 550 Right Nares 550 Drainage 60 Right Lower Abdomen 60 Urine 700 Urine, Voided 700 - Physical Exam Head: Positive for: Atraumatic, Normocephalic. Negative for: Tenderness Mouth: Positive for: Moist Mucous Membranes. Negative for: Dry, Drooling Nose (External): Positive for: Other (NGT in place) Nose (Internal): Positive for: Normal Inspection, Moist Neck: Positive for: Other (trach). Negative for: JVD, Lymphadenopathy Respiratory/Chest: Positive for: Clear to Auscultation. Negative for: Respiratory Distress, Accessory Muscle Use Cardiovascular: Positive for: Regular Rate and Rhythm, Normal S1, S2 Abdomen: Positive for: Tenderness (mild tenderness of palpation. patient continues to move her arms towards hands on palpation), Normal Bowel Sounds. Negative for: Distention, Peritoneal Signs, Guarding Upper Extremity: Positive for: Normal Inspection, Normal ROM, Capillary Refill < 2s. Negative for: Edema Lower Extremity: Positive for: Normal Inspection. Negative for: Edema Skin: Positive for: Warm, Pale Psychiatric: Positive for: Alert - Medications Active Medications: Active Medications Generic Name Dose Route Start Last Admin Trade Name Freq PRN Reason Stop Dose Admin Acetaminophen 650 mg 04/28/17 20:11 05/02/17 02:00 Tylenol 650mg/20.3ml Solution Ud PO 650 mg Q4 PRN Administration Temperature Fluconazole 100 mls @ 100 mls/hr 04/28/17 10:00 05/05/17 10:58 Diflucan Iv 200 Mg/100 Ml Ns IVPB 100 mls/hr DAILY AGUSTIN Administration Cefepime HCl 1 gm/ Dextrose 50 mls @ 100 mls/hr 05/03/17 10:00 05/05/17 10:58 IVPB 100 mls/hr DAILY AGUSTIN Administration Levetiracetam 500 mg/ Sodium 105 mls @ 420 mls/hr 05/03/17 22:00 05/05/17 10: 58 Chloride IVPB 420 mls/hr Q12H AGUSTIN Administration Propofol 1,000 mg in 100 mls @ 1.905 mls/hr 05/03/17 15:39 05/05/17 01:15 Diprivan IV 15 mcg/kg/min .Q24H PRN 5.716 mls/hr TITRATE PER MD ORDER Administration Protocol 5 MCG/KG/MIN Linezolid 600 mg in 300 mls @ 200 mls/hr 05/04/17 22:00 05/05/17 10:59 Zyvox 600mg/300ml D5w IVPB 200 mls/hr Q12 AGUSTIN Administration Potassium Chloride/Dextrose/Sod Cl 1,000 mls @ 60 mls/hr 05/05/17 00:30 05/05 01:38 Potassium Chl 20 Meq In D5-1/2ns IV 60 mls/hr .[id number] AGUSTIN Administration Magnesium Sulfate/Dextrose 1 gm in 100 mls @ 300 mls/hr 05/05/17 17:30 Magnesium Sulfate 1 Gm/100 Ml D5w IVPB 05/05/17 18:19 Q30M AGUSTIN Lorazepam 0.5 mg 05/05/17 12:00 Ativan IVP Q6H PRN Anxiety Metoprolol Tartrate 5 mg 05/02/17 19:00 05/05/17 07:18 Lopressor IVP 5 mg Q6H AGUSTIN Administration Multivitamins/Vitamin C 5 ml 04/30/17 12:00 05/05/17 10:59 Multi-Delyn Liquid PO 5 ml DAILY AGUSTIN Administration Pantoprazole Sodium 20 mg 04/19/17 18:00 05/05/17 10:58 Protonix Inj IVP 20 mg BID AGUSTIN Administration Quetiapine Fumarate 200 mg 05/05/17 10:45 05/05/17 10:58 Seroquel PO 200 mg BID AGUSTIN Administration - Patient Studies Lab Studies: Microbiology Studies 05/02/17 19:07 Gram Stain - Final Trachasp Sputum Culture - Final NORMAL ORAL DALTON 05/02/17 20:41 Blood Culture - Preliminary Blood NO GROWTH AFTER 48 HOURS 05/02/17 20:40 Blood Culture - Preliminary Blood NO GROWTH AFTER 48 HOURS 04/18/17 07:27 Blood Fungal Culture - Preliminary Other: Please Indicate 05/02/17 19:07 Urine Culture - Final Urine Gram Positive Cocci Lab Studies 05/05/17 05/05/17 05/05/17 Range/Units 11:51 06:29 06:28 WBC 16.4 H (4.8-10.8) K/uL RBC 2.78 L (3.80-5.20) Mil/uL Hgb 8.0 L (11.0-16.0) g/dL Hct 24.0 L (34.0-47.0) % MCV 86.3 (81.0-99.0) fL MCH 28.8 (27.0-31.0) pg MCHC 33.4 (33.0-37.0) g/dL RDW 15.5 H (11.5-14.5) % Plt Count 342 (130-400) K/uL MPV 10.7 (7.2-11.7) fL Neut % (Auto) 73.7 (50.0-75.0) % Lymph % (Auto) 13.8 L (20.0-40.0) % Page % (Auto) 8.9 (0.0-10.0) % Eos % (Auto) 2.7 (0.0-4.0) % Baso % (Auto) 0.9 (0.0-2.0) % Neut # 12.1 H (1.8-7.0) K/uL Lymph # 2.3 (1.0-4.3) K/uL Page # 1.5 H (0.0-0.8) K/uL Eos # 0.4 (0.0-0.7) K/uL Baso # 0.1 (0.0-0.2) K/uL Puncture Site pCO2 (35-45) mm/Hg pO2 (80-100) mm/Hg HCO3 (21-28) mmol/L ABG pH (7.35-7.45) ABG Total CO2 (22-28) mmol/L ABG O2 Saturation (95-98) % ABG Base Excess (-2.0-3.0) mmol/L ABG Hemoglobin (11.7-17.4) g/dL ABG Carboxyhemoglobin (0.5-1.5) % POC ABG HHb (Measured) (0.0-5.0) % ABG Methemoglobin (0.0-3.0) % Daniel Test A-a O2 Difference mm/Hg Respiratory Index Hgb O2 Saturation (95.0-98.0) % Vent Mode Mechanical Rate FiO2 % Tidal Volume PEEP Sodium 140 (132-148) mmol/L Potassium 3.6 (3.6-5.2) mmol/L Chloride 109 H (98-107) mmol/L Carbon Dioxide 24 (22-30) mmol/L Anion Gap 10 (10-20) BUN 13 (7-17) mg/dL Creatinine 0.9 (0.7-1.2) mg/dL Est GFR ( Amer) > 60 Est GFR (Non-Af Amer) > 60 POC Glucose (mg/dL) 100 (65-110) mg/dL Random Glucose 94 (65-105) mg/dL Calcium 8.4 L (8.6-10.4) mg/dl Phosphorus 3.5 (2.5-4.5) mg/dL Magnesium 1.4 L (1.6-2.3) mg/dL Total Bilirubin 0.7 (0.2-1.3) mg/dL AST 56 H D (14-36) U/L ALT 51 (9-52) U/L Alkaline Phosphatase 142 H D (38-126) U/L Total Protein 5.7 L (6.3-8.3) g/dL Albumin 2.7 L (3.5-5.0) g/dL Globulin 3.0 (2.2-3.9) gm/dL Albumin/Globulin Ratio 0.9 L (1.0-2.1) 05/05/17 05/05/17 05/05/17 Range/Units 05:16 05:07 00:14 WBC (4.8-10.8) K/uL RBC (3.80-5.20) Mil/uL Hgb (11.0-16.0) g/dL Hct (34.0-47.0) % MCV (81.0-99.0) fL MCH (27.0-31.0) pg MCHC (33.0-37.0) g/dL RDW (11.5-14.5) % Plt Count (130-400) K/uL MPV (7.2-11.7) fL Neut % (Auto) (50.0-75.0) % Lymph % (Auto) (20.0-40.0) % Page % (Auto) (0.0-10.0) % Eos % (Auto) (0.0-4.0) % Baso % (Auto) (0.0-2.0) % Neut # (1.8-7.0) K/uL Lymph # (1.0-4.3) K/uL Page # (0.0-0.8) K/uL Eos # (0.0-0.7) K/uL Baso # (0.0-0.2) K/uL Puncture Site Rb pCO2 35 (35-45) mm/Hg pO2 224 H (80-100) mm/Hg HCO3 24.8 (21-28) mmol/L ABG pH 7.44 (7.35-7.45) ABG Total CO2 24.9 (22-28) mmol/L ABG O2 Saturation 99.9 H (95-98) % ABG Base Excess -0.2 (-2.0-3.0) mmol/L ABG Hemoglobin 7.8 L (11.7-17.4) g/dL ABG Carboxyhemoglobin 1.2 (0.5-1.5) % POC ABG HHb (Measured) 0.1 (0.0-5.0) % ABG Methemoglobin 0.6 (0.0-3.0) % Daniel Test Na A-a O2 Difference 89.0 mm/Hg Respiratory Index 0.4 Hgb O2 Saturation 98.1 H (95.0-98.0) % Vent Mode Prvc Mechanical Rate 16 FiO2 50.0 % Tidal Volume 450 PEEP 5 Sodium (132-148) mmol/L Potassium (3.6-5.2) mmol/L Chloride (98-107) mmol/L Carbon Dioxide (22-30) mmol/L Anion Gap (10-20) BUN (7-17) mg/dL Creatinine (0.7-1.2) mg/dL Est GFR ( Amer) Est GFR (Non-Af Amer) POC Glucose (mg/dL) 85 76 (65-110) mg/dL Random Glucose (65-105) mg/dL Calcium (8.6-10.4) mg/dl Phosphorus (2.5-4.5) mg/dL Magnesium (1.6-2.3) mg/dL Total Bilirubin (0.2-1.3) mg/dL AST (14-36) U/L ALT (9-52) U/L Alkaline Phosphatase (38-126) U/L Total Protein (6.3-8.3) g/dL Albumin (3.5-5.0) g/dL Globulin (2.2-3.9) gm/dL Albumin/Globulin Ratio (1.0-2.1) 05/04/17 Range/Units 17:52 WBC (4.8-10.8) K/uL RBC (3.80-5.20) Mil/uL Hgb (11.0-16.0) g/dL Hct (34.0-47.0) % MCV (81.0-99.0) fL MCH (27.0-31.0) pg MCHC (33.0-37.0) g/dL RDW (11.5-14.5) % Plt Count (130-400) K/uL MPV (7.2-11.7) fL Neut % (Auto) (50.0-75.0) % Lymph % (Auto) (20.0-40.0) % Page % (Auto) (0.0-10.0) % Eos % (Auto) (0.0-4.0) % Baso % (Auto) (0.0-2.0) % Neut # (1.8-7.0) K/uL Lymph # (1.0-4.3) K/uL Page # (0.0-0.8) K/uL Eos # (0.0-0.7) K/uL Baso # (0.0-0.2) K/uL Puncture Site pCO2 (35-45) mm/Hg pO2 (80-100) mm/Hg HCO3 (21-28) mmol/L ABG pH (7.35-7.45) ABG Total CO2 (22-28) mmol/L ABG O2 Saturation (95-98) % ABG Base Excess (-2.0-3.0) mmol/L ABG Hemoglobin (11.7-17.4) g/dL ABG Carboxyhemoglobin (0.5-1.5) % POC ABG HHb (Measured) (0.0-5.0) % ABG Methemoglobin (0.0-3.0) % Daniel Test A-a O2 Difference mm/Hg Respiratory Index Hgb O2 Saturation (95.0-98.0) % Vent Mode Mechanical Rate FiO2 % Tidal Volume PEEP Sodium (132-148) mmol/L Potassium (3.6-5.2) mmol/L Chloride (98-107) mmol/L Carbon Dioxide (22-30) mmol/L Anion Gap (10-20) BUN (7-17) mg/dL Creatinine (0.7-1.2) mg/dL Est GFR ( Amer) Est GFR (Non-Af Amer) POC Glucose (mg/dL) 94 (65-110) mg/dL Random Glucose (65-105) mg/dL Calcium (8.6-10.4) mg/dl Phosphorus (2.5-4.5) mg/dL Magnesium (1.6-2.3) mg/dL Total Bilirubin (0.2-1.3) mg/dL AST (14-36) U/L ALT (9-52) U/L Alkaline Phosphatase (38-126) U/L Total Protein (6.3-8.3) g/dL Albumin (3.5-5.0) g/dL Globulin (2.2-3.9) gm/dL Albumin/Globulin Ratio (1.0-2.1) Laboratory Results - last 24 hr 05/04/17 05/05/17 05/05/17 17:52 00:14 05:07 WBC RBC Hgb Hct MCV MCH MCHC RDW Plt Count MPV Neut % (Auto) Lymph % (Auto) Page % (Auto) Eos % (Auto) Baso % (Auto) Neut # Lymph # Page # Eos # Baso # Puncture Site Rb pCO2 35 pO2 224 H HCO3 24.8 ABG pH 7.44 ABG Total CO2 24.9 ABG O2 Saturation 99.9 H ABG Base Excess -0.2 ABG Hemoglobin 7.8 L ABG Carboxyhemoglobin 1.2 POC ABG HHb (Measured) 0.1 ABG Methemoglobin 0.6 Daniel Test Na A-a O2 Difference 89.0 Respiratory Index 0.4 Hgb O2 Saturation 98.1 H Vent Mode Prvc Mechanical Rate 16 FiO2 50.0 Tidal Volume 450 PEEP 5 Sodium Potassium Chloride Carbon Dioxide Anion Gap BUN Creatinine Est GFR ( Amer) Est GFR (Non-Af Amer) POC Glucose (mg/dL) 94 76 Random Glucose Calcium Phosphorus Magnesium Total Bilirubin AST ALT Alkaline Phosphatase Total Protein Albumin Globulin Albumin/Globulin Ratio 05/05/17 05/05/17 05/05/17 05:16 06:28 06:29 WBC 16.4 H RBC 2.78 L Hgb 8.0 L Hct 24.0 L MCV 86.3 MCH 28.8 MCHC 33.4 RDW 15.5 H Plt Count 342 MPV 10.7 Neut % (Auto) 73.7 Lymph % (Auto) 13.8 L Page % (Auto) 8.9 Eos % (Auto) 2.7 Baso % (Auto) 0.9 Neut # 12.1 H Lymph # 2.3 Page # 1.5 H Eos # 0.4 Baso # 0.1 Puncture Site pCO2 pO2 HCO3 ABG pH ABG Total CO2 ABG O2 Saturation ABG Base Excess ABG Hemoglobin ABG Carboxyhemoglobin POC ABG HHb (Measured) ABG Methemoglobin Daniel Test A-a O2 Difference Respiratory Index Hgb O2 Saturation Vent Mode Mechanical Rate FiO2 Tidal Volume PEEP Sodium 140 Potassium 3.6 Chloride 109 H Carbon Dioxide 24 Anion Gap 10 BUN 13 Creatinine 0.9 Est GFR ( Amer) > 60 Est GFR (Non-Af Amer) > 60 POC Glucose (mg/dL) 85 Random Glucose 94 Calcium 8.4 L Phosphorus 3.5 Magnesium 1.4 L Total Bilirubin 0.7 AST 56 H D ALT 51 Alkaline Phosphatase 142 H D Total Protein 5.7 L Albumin 2.7 L Globulin 3.0 Albumin/Globulin Ratio 0.9 L 05/05/17 11:51 WBC RBC Hgb Hct MCV MCH MCHC RDW Plt Count MPV Neut % (Auto) Lymph % (Auto) Page % (Auto) Eos % (Auto) Baso % (Auto) Neut # Lymph # Page # Eos # Baso # Puncture Site pCO2 pO2 HCO3 ABG pH ABG Total CO2 ABG O2 Saturation ABG Base Excess ABG Hemoglobin ABG Carboxyhemoglobin POC ABG HHb (Measured) ABG Methemoglobin Daniel Test A-a O2 Difference Respiratory Index Hgb O2 Saturation Vent Mode Mechanical Rate FiO2 Tidal Volume PEEP Sodium Potassium Chloride Carbon Dioxide Anion Gap BUN Creatinine Est GFR ( Amer) Est GFR (Non-Af Amer) POC Glucose (mg/dL) 100 Random Glucose Calcium Phosphorus Magnesium Total Bilirubin AST ALT Alkaline Phosphatase Total Protein Albumin Globulin Albumin/Globulin Ratio Fingerstick Blood Sugar Results: 94 Assessment/Plan - Assessment and Plan (Free Text) Plan: -Hypoxic respiratory failure: 2nd VQ mismatch 2nd aspiration PNA: continue CPAP trials daily, titrate down Fio2 to keep spo2 >92 -s/p Gastrojujunostomy: continue NG tube feeds as per surgery recommendation -SVT: sinus tachy possible withdrawal -Agitation: looking at home medications, patient was taking seroquel, will restart seroqual and titrate off propofol -Patient has developmental dysfunction and it is best for family to provide input regarding patient's baseline mental status -sepsis: off pressors, continue current abx regimen, GPC in urine -continue DVT ppx -continue PUD ppx - - Date & Time Date: 05/05/17 Time: 15:00
[2017-05-05] MEDS: Magnesium Sulfate 1 gm in D5W 1 GM/100 ML BAG IVPB SCH ×2 (18:00→18:40)
[2017-05-06] MEDS: Metoprolol 1 mg/ml Inj IVP SCH ×2 (01:00→06:26)
[2017-05-06] MEDS: Propofol 10 mg/ml 1,000 MG/100 ML VIAL IV PRN (02:04)
[2017-05-06 06:40] LABS: BASO % 0.2 % (0.0-2.0); EOS # 0.3 K/uL (0.0-0.7); EOS % 3.1 % (0.0-4.0); LYMPH # 2.2 K/uL (1.0-4.3); LYMPH % 19.8 % (20.0-40.0); MEAN CELL VOLUME 85.7 fL (81.0-99.0); MEAN CORPUSCULAR HGB CONC 33.9 g/dL (33.0-37.0); MEAN PLATELET VOLUME 9.8 fL (7.2-11.7); MONO # 0.9 K/uL (0.0-0.8); MONO % 8.2 % (0.0-10.0); NEUT # 7.7 K/uL (1.8-7.0); NEUT % 68.7 % (50.0-75.0); RBC 2.75 Mil/uL (3.80-5.20); WHITE BLOOD COUNT 11.2 K/uL (4.8-10.8)
[2017-05-06 06:50] LABS: ALBUMIN 2.7 g/dL (3.5-5.0); BLOOD UREA NITROGEN 7 mg/dL (7-17); CALCIUM 8.5 mg/dl (8.6-10.4); GFR AFRICAN-AMERICAN > 60; GFR NON-AFRICAN AMERICAN > 60
[2017-05-06 06:51] LABS: ALB/GLOB RATIO 0.9 (1.0-2.1); ALT/SGPT 56 U/L (9-52); AST/SGOT 57 U/L (14-36)
--- NOTE | 2017-05-06 08:00 | RAD ---
HISTORY: Shortness of breath. COMPARISON: 05/04/2016. FINDINGS: LUNGS: Interval improvement in left upper and right lower lobe infiltrates. PLEURA: No significant pleural effusion identified, no pneumothorax apparent. CARDIOVASCULAR: No radiographic findings to suggest acute or significant cardiovascular disease. Venous access catheter in stable, satisfactory position.PICC line in satisfactory position unchanged. OSSEOUS STRUCTURES: No significant abnormalities. VISUALIZED UPPER ABDOMEN: Normal. OTHER FINDINGS: Stable, satisfactory position of tracheostomy device. IMPRESSION: Improving left upper and right lower lobe infiltrates.
[2017-05-06] MEDS ORDERED: Magnesium Sulfate 1 gm in D5W 1 GM/100 ML BAG IVPB ONE (09:00)
[2017-05-06] MEDS: Potassium Ch 20mEq in D5-1/2NS 1,000 ML IV SCH ×2 (09:49→22:03)
[2017-05-06] MEDS: Fluconazole IV 200mg/100 ml NS 100 ML IVPB SCH ×2 (10:00→11:45)
[2017-05-06] MEDS: Multiple Vitamins Oral Solution PO SCH (10:25)
[2017-05-06] MEDS: levETIRAcetam 500 MG in Sodium Chloride 0.9% 100 ML IVPB SCH ×2 (10:54→22:03)
[2017-05-06] MEDS: Linezolid 600 mg in D5W 300 ml 600 MG/300 ML BAG IVPB SCH (12:40)
--- NOTE | 2017-05-06 13:35 | CP.PCM.PN ---
Subjective - Date & Time of Evaluation Date of Evaluation: 05/06/17 Time of Evaluation: 13:33 - Subjective Subjective: Appears same Renal function has normalized; lytes improved NGT feeds resuming; still on IV fluids remains on trach/vent Objective - Vital Signs/Intake and Output Vital Signs (last 24 hours): Temp Pulse Resp BP Pulse Ox 97.8 F 105 H 16 96/66 L 100 05/06/17 08:00 05/06/17 11:24 05/06/17 11:24 05/06/17 11:24 05/06/17 11:24 Intake and Output: 05/06/17 05/06/17 06:59 18:59 Intake Total 1305.6 652.7 Output Total 1500 0 Balance -194.4 652.7 - Medications Medications: Current Medications Acetaminophen (Tylenol 650mg/20.3ml Solution Ud) 650 mg PO Q4 PRN PRN Reason: Temperature Last Admin: 05/02/17 02:00 Dose: 650 mg Fluconazole (Diflucan Iv 200 Mg/100 Ml Ns) 100 mls @ 100 mls/hr IVPB DAILY [facility] Last Admin: 05/06/17 11:45 Dose: 100 mls/hr Cefepime HCl 1 gm/ Dextrose 50 mls @ 100 mls/hr IVPB DAILY [facility] Last Admin: 05/06/17 11:16 Dose: 100 mls/hr Levetiracetam 500 mg/ Sodium (Chloride) 105 mls @ 420 mls/hr IVPB Q12H [facility] Last Admin: 05/06/17 10:54 Dose: 420 mls/hr Propofol (Diprivan) 1,000 mg in 100 mls @ 1.905 mls/hr IV .Q24H PRN; Protocol; 5 MCG/KG/MIN PRN Reason: TITRATE PER MD ORDER Last Titration: 05/06/17 10:15 Dose: 0 mcg/kg/min, 0 mls/hr Linezolid (Zyvox 600mg/300ml D5w) 600 mg in 300 mls @ 200 mls/hr IVPB Q12 [facility] Last Admin: 05/05/17 21:35 Dose: 200 mls/hr Potassium Chloride/Dextrose/Sod Cl (Potassium Chl 20 Meq In D5-1/2ns) 1,000 mls @ 60 mls/hr IV .[id number] [facility] Last Admin: 05/06/17 09:49 Dose: Not Given Lorazepam (Ativan) 0.5 mg IVP Q6H PRN PRN Reason: Anxiety Metoprolol Tartrate (Lopressor) 50 mg PO BID [facility] Last Admin: 05/06/17 09:49 Dose: 50 mg Metoprolol Tartrate (Lopressor) 5 mg IVP Q6H PRN PRN Reason: Systolic Blood Pressure Multivitamins/Vitamin C (Multi-Delyn Liquid) 5 ml PO DAILY [facility] Last Admin: 05/06/17 10:25 Dose: 5 ml Pantoprazole Sodium (Protonix Inj) 20 mg IVP BID [facility] Last Admin: 05/06/17 09:46 Dose: 20 mg Quetiapine Fumarate (Seroquel) 200 mg PO BID [facility] Last Admin: 05/06/17 09:46 Dose: 200 mg - Labs Labs: 05/06/17 06:28 05/06/17 06:24 PT 14.0 SECONDS (9.7-12.2) H 04/25/17 06:25 INR 1.2 04/25/17 06:25 APTT 32 SECONDS (21-34) 04/25/17 06:25 - Constitutional Appears: No Acute Distress, Chronically Ill - Head Exam Head Exam: ATRAUMATIC, NORMAL INSPECTION - Eye Exam Eye Exam: EOMI, Normal appearance - Neck Exam Neck Exam: Normal Inspection. absent: Tenderness - Respiratory Exam Respiratory Exam: Clear to Ausculation Bilateral, NORMAL BREATHING PATTERN - Cardiovascular Exam Cardiovascular Exam: REGULAR RHYTHM, +S1 - GI/Abdominal Exam GI & Abdominal Exam: Soft. absent: Tenderness - Extremities Exam Extremities Exam: Normal Inspection. absent: Tenderness - Neurological Exam Neurological Exam: Alert, CN II-XII Intact - Skin Skin Exam: Dry, Warm Assessment and Plan (1) JIMBO (acute kidney injury) Status: Resolved (2) Acute pancreatitis Status: Acute (3) SBO (small bowel obstruction) Status: Acute (4) Schizophrenia Status: Acute - Assessment and Plan (Free Text) Plan: Same fluis IV; increase NGT feeds gradually monitor chemistries
--- NOTE | 2017-05-06 18:27 | CP.PCM.PN ---
Subjective - Date & Time of Evaluation Date of Evaluation: 05/06/17 Time of Evaluation: 18:24 - Subjective Subjective: General Surgery Note for Dr. Mendez Patient seen and examined at bedside. No acute event overnight. Patient is non verbal. She does not appear in pain. NGT feeds running at 10 cc/hr. Objective - Vital Signs/Intake and Output Vital Signs (last 24 hours): Temp Pulse Resp BP Pulse Ox 97.6 F 119 H 17 113/76 100 05/06/17 12:00 05/06/17 14:24 05/06/17 14:24 05/06/17 18:08 05/06/17 14:24 Intake and Output: 05/06/17 05/06/17 06:59 18:59 Intake Total 1305.6 1064.9 Output Total 1500 0 Balance -194.4 1064.9 - Medications Medications: Current Medications Acetaminophen (Tylenol 650mg/20.3ml Solution Ud) 650 mg PO Q4 PRN PRN Reason: Temperature Last Admin: 05/02/17 02:00 Dose: 650 mg Fluconazole (Diflucan Iv 200 Mg/100 Ml Ns) 100 mls @ 100 mls/hr IVPB DAILY [facility] Last Admin: 05/06/17 11:45 Dose: 100 mls/hr Cefepime HCl 1 gm/ Dextrose 50 mls @ 100 mls/hr IVPB DAILY [facility] Last Admin: 05/06/17 11:16 Dose: 100 mls/hr Levetiracetam 500 mg/ Sodium (Chloride) 105 mls @ 420 mls/hr IVPB Q12H [facility] Last Admin: 05/06/17 10:54 Dose: 420 mls/hr Linezolid (Zyvox 600mg/300ml D5w) 600 mg in 300 mls @ 200 mls/hr IVPB Q12 [facility] Last Admin: 05/06/17 12:40 Dose: 200 mls/hr Potassium Chloride/Dextrose/Sod Cl (Potassium Chl 20 Meq In D5-1/2ns) 1,000 mls @ 60 mls/hr IV .[id number] [facility] Last Admin: 05/06/17 09:49 Dose: Not Given Lorazepam (Ativan) 0.5 mg IVP Q6H PRN PRN Reason: Anxiety Metoprolol Tartrate (Lopressor) 5 mg IVP Q6H PRN PRN Reason: Systolic Blood Pressure Metoprolol Tartrate (Lopressor) 75 mg PO BID [facility] Last Admin: 05/06/17 18:08 Dose: 75 mg Multivitamins/Vitamin C (Multi-Delyn Liquid) 5 ml PO DAILY [facility] Last Admin: 05/06/17 10:25 Dose: 5 ml Pantoprazole Sodium (Protonix Inj) 20 mg IVP BID [facility] Last Admin: 05/06/17 18:09 Dose: 20 mg Quetiapine Fumarate (Seroquel) 200 mg PO BID [facility] Last Admin: 05/06/17 18:09 Dose: 200 mg - Labs Labs: 05/06/17 06:28 05/06/17 06:24 PT 14.0 SECONDS (9.7-12.2) H 04/25/17 06:25 INR 1.2 04/25/17 06:25 APTT 32 SECONDS (21-34) 04/25/17 06:25 - Constitutional Appears: No Acute Distress - Head Exam Head Exam: ATRAUMATIC, NORMOCEPHALIC - Eye Exam Eye Exam: Normal appearance - ENT Exam Additional comments: NGT in place for feeding - Respiratory Exam Respiratory Exam: NORMAL BREATHING PATTERN - Cardiovascular Exam Cardiovascular Exam: Tachycardia - GI/Abdominal Exam GI & Abdominal Exam: Soft. absent: Distended, Guarding, Tenderness, Rebound Additional comments: midline incision clean dry and intact - Neurological Exam Neurological Exam: Alert, Awake - Psychiatric Exam Psychiatric exam: Normal Affect, Normal Mood - Skin Skin Exam: Dry, Intact, Normal Color, Warm Assessment and Plan - Assessment and Plan (Free Text) Plan: 36F s/p gastrojejunostomy w/ bypass and feeding jejunostomy POD#18 Feeding via NGT, monitor for residuals q4h - 10cc/hr [place] removed Reglan/zofran for vomiting - Monitor for emesis Mangement as per ICU D/W Dr. Andrea Wells PGY1
--- NOTE | 2017-05-06 18:38 | CP.CCUPN ---
CCU Subjective - Physician Review Subjective (Free Text): 05/06/17 18:30 Patient seen and examined at bedside Looks much better decreasing diprivan cpap for 30m today but did not tolerate CCU Objective - Vital Signs / Intake & Output Vital Signs (Last 4 hours): Vital Signs BP 05/06/17 18:08 113/76 Intake and Output (Last 8hrs): Intake & Output 05/06/17 05/06/17 05/06/17 06:59 14:59 22:59 Intake Total 590.4 1064.9 Output Total 1450 0 Balance -859.6 1064.9 Weight 140 lb Intake: IV 31.7 Intake, IV Amount 510.4 945.2 Left Distal Port PICC 30.4 15.2 Left PICC 480 480 Left PICC #2 450 Tube Feeding 80 88 Output: Drainage 50 Right Lower Abdomen 50 Urine 1400 0 Urine, Voided 1400 0 - Physical Exam Head: Positive for: Atraumatic, Normocephalic. Negative for: Tenderness Pupils: Positive for: PERRL Extroacular Muscles: Positive for: EOMI Mouth: Positive for: Moist Mucous Membranes. Negative for: Dry, Drooling Nose (External): Positive for: Other (NGT in place) Nose (Internal): Positive for: Normal Inspection, Moist Neck: Positive for: Other (trach). Negative for: JVD, Lymphadenopathy Respiratory/Chest: Positive for: Clear to Auscultation. Negative for: Respiratory Distress, Accessory Muscle Use Cardiovascular: Positive for: Regular Rate and Rhythm, Normal S1, S2 Abdomen: Positive for: Tenderness (mild tenderness of palpation. patient continues to move her arms towards hands on palpation), Normal Bowel Sounds. Negative for: Distention, Peritoneal Signs, Guarding Upper Extremity: Positive for: Normal Inspection, Normal ROM, Capillary Refill < 2s. Negative for: Edema Lower Extremity: Positive for: Normal Inspection. Negative for: Edema Neurological: Positive for: CN II-XII Intact Skin: Positive for: Warm, Pale Psychiatric: Positive for: Alert - Medications Active Medications: Active Medications Generic Name Dose Route Start Last Admin Trade Name Freq PRN Reason Stop Dose Admin Acetaminophen 650 mg 04/28/17 20:11 05/02/17 02:00 Tylenol 650mg/20.3ml Solution Ud PO 650 mg Q4 PRN Administration Temperature Fluconazole 100 mls @ 100 mls/hr 04/28/17 10:00 05/06/17 11:45 Diflucan Iv 200 Mg/100 Ml Ns IVPB 100 mls/hr DAILY AGUSTIN Administration Cefepime HCl 1 gm/ Dextrose 50 mls @ 100 mls/hr 05/03/17 10:00 05/06/17 11:16 IVPB 100 mls/hr DAILY AGUSTIN Administration Levetiracetam 500 mg/ Sodium 105 mls @ 420 mls/hr 05/03/17 22:00 05/06/17 10: 54 Chloride IVPB 420 mls/hr Q12H AGUSTIN Administration Linezolid 600 mg in 300 mls @ 200 mls/hr 05/04/17 22:00 05/06/17 12:40 Zyvox 600mg/300ml D5w IVPB 200 mls/hr Q12 AGUSTIN Administration Potassium Chloride/Dextrose/Sod Cl 1,000 mls @ 60 mls/hr 05/05/17 00:30 05/06 09:49 Potassium Chl 20 Meq In D5-1/2ns IV Not Given .[id number] AGUSTIN Lorazepam 0.5 mg 05/05/17 12:00 Ativan IVP Q6H PRN Anxiety Metoprolol Tartrate 5 mg 05/06/17 10:27 Lopressor IVP Q6H PRN Systolic Blood Pressure Metoprolol Tartrate 75 mg 05/06/17 14:35 05/06/17 18:08 Lopressor PO 75 mg BID AGUSTIN Administration Multivitamins/Vitamin C 5 ml 04/30/17 12:00 05/06/17 10:25 Multi-Delyn Liquid PO 5 ml DAILY AG[facility]IN Administration Pantoprazole Sodium 20 mg 04/19/17 18:00 05/06/17 18:09 Protonix Inj IVP 20 mg BID AGUSTIN Administration Quetiapine Fumarate 200 mg 05/05/17 10:45 05/06/17 18:09 Seroquel PO 200 mg BID AGUSTIN Administration - Patient Studies Lab Studies: Microbiology Studies 05/02/17 20:41 Blood Culture - Preliminary Blood NO GROWTH AFTER 3 DAYS 05/02/17 20:40 Blood Culture - Preliminary Blood NO GROWTH AFTER 3 DAYS Lab Studies 05/06/17 05/06/17 05/06/17 Range/Units 17:32 14:22 06:28 WBC 11.2 H (4.8-10.8) K/uL RBC 2.75 L (3.80-5.20) Mil/uL Hgb 8.0 L (11.0-16.0) g/dL Hct 23.6 L (34.0-47.0) % MCV 85.7 (81.0-99.0) fL MCH 29.0 (27.0-31.0) pg MCHC 33.9 (33.0-37.0) g/dL RDW 15.0 H (11.5-14.5) % Plt Count 365 (130-400) K/uL MPV 9.8 (7.2-11.7) fL Neut % (Auto) 68.7 (50.0-75.0) % Lymph % (Auto) 19.8 L (20.0-40.0) % [place] % (Auto) 8.2 (0.0-10.0) % Eos % (Auto) 3.1 (0.0-4.0) % Baso % (Auto) 0.2 (0.0-2.0) % Neut # 7.7 H (1.8-7.0) K/uL Lymph # 2.2 (1.0-4.3) K/uL [place] # 0.9 H (0.0-0.8) K/uL Eos # 0.3 (0.0-0.7) K/uL Baso # 0.0 (0.0-0.2) K/uL Sodium (132-148) mmol/L Potassium (3.6-5.2) mmol/L Chloride (98-107) mmol/L Carbon Dioxide (22-30) mmol/L Anion Gap (10-20) BUN (7-17) mg/dL Creatinine (0.7-1.2) mg/dL Est GFR ( Amer) Est GFR (Non-Af Amer) POC Glucose (mg/dL) 99 115 H (65-110) mg/dL Random Glucose (65-105) mg/dL Calcium (8.6-10.4) mg/dl Phosphorus (2.5-4.5) mg/dL Magnesium (1.6-2.3) mg/dL Total Bilirubin (0.2-1.3) mg/dL AST (14-36) U/L ALT (9-52) U/L Alkaline Phosphatase (38-126) U/L Total Protein (6.3-8.3) g/dL Albumin (3.5-5.0) g/dL Globulin (2.2-3.9) gm/dL Albumin/Globulin Ratio (1.0-2.1) 05/06/17 05/05/17 Range/Units 06:24 23:33 WBC (4.8-10.8) K/uL RBC (3.80-5.20) Mil/uL Hgb (11.0-16.0) g/dL Hct (34.0-47.0) % MCV (81.0-99.0) fL MCH (27.0-31.0) pg MCHC (33.0-37.0) g/dL RDW (11.5-14.5) % Plt Count (130-400) K/uL MPV (7.2-11.7) fL Neut % (Auto) (50.0-75.0) % Lymph % (Auto) (20.0-40.0) % [place] % (Auto) (0.0-10.0) % Eos % (Auto) (0.0-4.0) % Baso % (Auto) (0.0-2.0) % Neut # (1.8-7.0) K/uL Lymph # (1.0-4.3) K/uL [place] # (0.0-0.8) K/uL Eos # (0.0-0.7) K/uL Baso # (0.0-0.2) K/uL Sodium 139 (132-148) mmol/L Potassium 3.6 (3.6-5.2) mmol/L Chloride 107 (98-107) mmol/L Carbon Dioxide 26 (22-30) mmol/L Anion Gap 9 L (10-20) BUN 7 (7-17) mg/dL Creatinine 0.9 (0.7-1.2) mg/dL Est GFR ( Amer) > 60 Est GFR (Non-Af Amer) > 60 POC Glucose (mg/dL) 96 (65-110) mg/dL Random Glucose 102 (65-105) mg/dL Calcium 8.5 L (8.6-10.4) mg/dl Phosphorus 3.7 (2.5-4.5) mg/dL Magnesium 1.7 (1.6-2.3) mg/dL Total Bilirubin 0.6 (0.2-1.3) mg/dL AST 57 H (14-36) U/L ALT 56 H (9-52) U/L Alkaline Phosphatase 183 H D (38-126) U/L Total Protein 5.7 L (6.3-8.3) g/dL Albumin 2.7 L (3.5-5.0) g/dL Globulin 3.1 (2.2-3.9) gm/dL Albumin/Globulin Ratio 0.9 L (1.0-2.1) Laboratory Results - last 24 hr 05/05/17 05/06/17 05/06/17 23:33 06:24 06:28 WBC 11.2 H RBC 2.75 L Hgb 8.0 L Hct 23.6 L MCV 85.7 MCH 29.0 MCHC 33.9 RDW 15.0 H Plt Count 365 MPV 9.8 Neut % (Auto) 68.7 Lymph % (Auto) 19.8 L [place] % (Auto) 8.2 Eos % (Auto) 3.1 Baso % (Auto) 0.2 Neut # 7.7 H Lymph # 2.2 [place] # 0.9 H Eos # 0.3 Baso # 0.0 Sodium 139 Potassium 3.6 Chloride 107 Carbon Dioxide 26 Anion Gap 9 L BUN 7 Creatinine 0.9 Est GFR ( Amer) > 60 Est GFR (Non-Af Amer) > 60 POC Glucose (mg/dL) 96 Random Glucose 102 Calcium 8.5 L Phosphorus 3.7 Magnesium 1.7 Total Bilirubin 0.6 AST 57 H ALT 56 H Alkaline Phosphatase 183 H D Total Protein 5.7 L Albumin 2.7 L Globulin 3.1 Albumin/Globulin Ratio 0.9 L 05/06/17 05/06/17 14:22 17:32 WBC RBC Hgb Hct MCV MCH MCHC RDW Plt Count MPV Neut % (Auto) Lymph % (Auto) [place] % (Auto) Eos % (Auto) Baso % (Auto) Neut # Lymph # [place] # Eos # Baso # Sodium Potassium Chloride Carbon Dioxide Anion Gap BUN Creatinine Est GFR ( Amer) Est GFR (Non-Af Amer) POC Glucose (mg/dL) 115 H 99 Random Glucose Calcium Phosphorus Magnesium Total Bilirubin AST ALT Alkaline Phosphatase Total Protein Albumin Globulin Albumin/Globulin Ratio Fingerstick Blood Sugar Results: 146 Assessment/Plan - Assessment and Plan (Free Text) Assessment: 36F s/p gastrojej for SMA syndrome, Persistent vomiting and tachy Plan: psych: hx of schizophrenia, started seroquel, hx of siezures on keppra cards: tachy persistent, partially controlled on diprivan, added lopressor. Pulm: trach, tolerated cpap for short while today, back on PRVC GI: s/p gastrojej for SMA syndrome, J tube removed, NGT for tube feeds, restarted at low rate. tolerating, repeat EGD unremarkable Renal: No acute issues ID: Gram + cocci in the urine, zyvox, fluconazole PPX: Protonix, heparin
--- NOTE | 2017-05-06 18:48 | CP.PCM.PN ---
Subjective - Date & Time of Evaluation Date of Evaluation: 05/06/17 Time of Evaluation: 07:00 - Subjective Subjective: improving on IV rx OOB to chair today Objective - Vital Signs/Intake and Output Vital Signs (last 24 hours): Temp Pulse Resp BP Pulse Ox 97.6 F 119 H 17 113/76 100 05/06/17 12:00 05/06/17 14:24 05/06/17 14:24 05/06/17 18:08 05/06/17 14:24 Intake and Output: 05/06/17 05/06/17 06:59 18:59 Intake Total 1305.6 1064.9 Output Total 1500 0 Balance -194.4 1064.9 - Medications Medications: Current Medications Acetaminophen (Tylenol 650mg/20.3ml Solution Ud) 650 mg PO Q4 PRN PRN Reason: Temperature Last Admin: 05/02/17 02:00 Dose: 650 mg Fluconazole (Diflucan Iv 200 Mg/100 Ml Ns) 100 mls @ 100 mls/hr IVPB DAILY [facility] Last Admin: 05/06/17 11:45 Dose: 100 mls/hr Cefepime HCl 1 gm/ Dextrose 50 mls @ 100 mls/hr IVPB DAILY [facility] Last Admin: 05/06/17 11:16 Dose: 100 mls/hr Levetiracetam 500 mg/ Sodium (Chloride) 105 mls @ 420 mls/hr IVPB Q12H [facility] Last Admin: 05/06/17 10:54 Dose: 420 mls/hr Linezolid (Zyvox 600mg/300ml D5w) 600 mg in 300 mls @ 200 mls/hr IVPB Q12 [facility] Last Admin: 05/06/17 12:40 Dose: 200 mls/hr Potassium Chloride/Dextrose/Sod Cl (Potassium Chl 20 Meq In D5-1/2ns) 1,000 mls @ 60 mls/hr IV .[id number] [facility] Last Admin: 05/06/17 09:49 Dose: Not Given Lorazepam (Ativan) 0.5 mg IVP Q6H PRN PRN Reason: Anxiety Metoprolol Tartrate (Lopressor) 5 mg IVP Q6H PRN PRN Reason: Systolic Blood Pressure Metoprolol Tartrate (Lopressor) 75 mg PO BID [facility] Last Admin: 05/06/17 18:08 Dose: 75 mg Multivitamins/Vitamin C (Multi-Delyn Liquid) 5 ml PO DAILY [facility] Last Admin: 05/06/17 10:25 Dose: 5 ml Pantoprazole Sodium (Protonix Inj) 20 mg IVP BID [facility] Last Admin: 05/06/17 18:09 Dose: 20 mg Quetiapine Fumarate (Seroquel) 200 mg PO BID [facility] Last Admin: 05/06/17 18:09 Dose: 200 mg - Labs Labs: 05/06/17 06:28 05/06/17 06:24 PT 14.0 SECONDS (9.7-12.2) H 04/25/17 06:25 INR 1.2 04/25/17 06:25 APTT 32 SECONDS (21-34) 04/25/17 06:25 - Constitutional Appears: Non-toxic, Confused, Chronically Ill - Head Exam Head Exam: NORMOCEPHALIC - Eye Exam Eye Exam: PERRL - ENT Exam ENT Exam: Mucous Membranes Dry - Neck Exam Neck Exam: absent: Lymphadenopathy - Respiratory Exam Respiratory Exam: Decreased Breath Sounds - Cardiovascular Exam Cardiovascular Exam: REGULAR RHYTHM - GI/Abdominal Exam GI & Abdominal Exam: Distended, Soft - Rectal Exam Rectal Exam: Deferred - Exam Exam: NORMAL INSPECTION - Back Exam Back Exam: absent: CVA tenderness (L), CVA tenderness (R) - Neurological Exam Neurological Exam: Altered Assessment and Plan (1) Acute pancreatitis Status: Acute (2) Leucocytosis Status: Acute
[2017-05-07] MEDS ORDERED: Potassium Chloride 20 mEq/15 ml LIQ UD PO ONE (00:30)
[2017-05-07] MEDS: Linezolid 600 mg in D5W 300 ml 600 MG/300 ML BAG IVPB SCH ×3 (00:37→21:30)
--- NOTE | 2017-05-07 01:00 | CP.PCM.PN ---
Subjective - Date & Time of Evaluation Date of Evaluation: 05/07/17 Time of Evaluation: 00:58 - Subjective Subjective: Gen Sx: Dr Mendez Pt S&E in ICU. NAEO. Pt appears in no acute distress. Pt tolerating NGT tube feeds. CPAP trials daily per ICU. Objective - Vital Signs/Intake and Output Vital Signs (last 24 hours): Temp Pulse Resp BP Pulse Ox 99.5 F 99 H 16 105/79 100 05/06/17 20:00 05/06/17 23:24 05/06/17 23:24 05/06/17 23:24 05/06/17 22:00 Intake and Output: 05/06/17 05/07/17 18:59 06:59 Intake Total 1136.9 391 Output Total 800 Balance 336.9 391 - Medications Medications: Current Medications Acetaminophen (Tylenol 650mg/20.3ml Solution Ud) 650 mg PO Q4 PRN PRN Reason: Temperature Last Admin: 05/02/17 02:00 Dose: 650 mg Heparin Sodium (Porcine) (Heparin) 5,000 units SC Q8 [facility] Last Admin: 05/06/17 22:02 Dose: 5,000 units Fluconazole (Diflucan Iv 200 Mg/100 Ml Ns) 100 mls @ 100 mls/hr IVPB DAILY [facility] Last Admin: 05/06/17 11:45 Dose: 100 mls/hr Cefepime HCl 1 gm/ Dextrose 50 mls @ 100 mls/hr IVPB DAILY [facility] Last Admin: 05/06/17 11:16 Dose: 100 mls/hr Levetiracetam 500 mg/ Sodium (Chloride) 105 mls @ 420 mls/hr IVPB Q12H [facility] Last Admin: 05/06/17 22:03 Dose: 420 mls/hr Linezolid (Zyvox 600mg/300ml D5w) 600 mg in 300 mls @ 200 mls/hr IVPB Q12 [facility] Last Admin: 05/07/17 00:37 Dose: 200 mls/hr Potassium Chloride/Dextrose/Sod Cl (Potassium Chl 20 Meq In D5-1/2ns) 1,000 mls @ 60 mls/hr IV .[id number] [facility] Last Admin: 05/06/17 22:03 Dose: 60 mls/hr Lorazepam (Ativan) 0.5 mg IVP Q6H PRN PRN Reason: Anxiety Metoprolol Tartrate (Lopressor) 5 mg IVP Q6H PRN PRN Reason: Systolic Blood Pressure Metoprolol Tartrate (Lopressor) 75 mg PO BID [facility] Last Admin: 05/06/17 18:08 Dose: 75 mg Multivitamins/Vitamin C (Multi-Delyn Liquid) 5 ml PO DAILY [facility] Last Admin: 05/06/17 10:25 Dose: 5 ml Pantoprazole Sodium (Protonix Inj) 20 mg IVP BID [facility] Last Admin: 05/06/17 18:09 Dose: 20 mg Quetiapine Fumarate (Seroquel) 200 mg PO BID [facility] Last Admin: 05/06/17 18:09 Dose: 200 mg - Labs Labs: 05/06/17 06:28 05/06/17 06:24 PT 14.0 SECONDS (9.7-12.2) H 04/25/17 06:25 INR 1.2 04/25/17 06:25 APTT 32 SECONDS (21-34) 04/25/17 06:25 - Constitutional Appears: No Acute Distress - ENT Exam ENT Exam: Mucous Membranes Dry - Respiratory Exam Respiratory Exam: absent: Respiratory Distress - Cardiovascular Exam Cardiovascular Exam: Tachycardia, REGULAR RHYTHM - GI/Abdominal Exam GI & Abdominal Exam: Soft. absent: Distended, Firm, Guarding - Neurological Exam Neurological Exam: Awake. absent: Oriented x3 - Skin Skin Exam: Normal Color Assessment and Plan - Assessment and Plan (Free Text) Assessment: 36F s/p gastrojejunostomy w/ bypass and feeding jejunostomy POD#19 continue Feeding via NGT Reglan/zofran for vomiting - Monitor for emesis Mangement as per ICU will D/W Dr. Andrea Camacho, PGY3
[2017-05-07] MEDS: Potassium Ch 20mEq in D5-1/2NS 1,000 ML IV SCH ×2 (03:00→21:31)
[2017-05-07 06:01] LABS: BASO # 0.1 K/uL (0.0-0.2); BASO % 0.6 % (0.0-2.0); EOS # 0.3 K/uL (0.0-0.7); HEMOGLOBIN 8.2 g/dL (11.0-16.0); LYMPH # 2.2 K/uL (1.0-4.3); LYMPH % 22.1 % (20.0-40.0); MEAN CELL VOLUME 84.8 fL (81.0-99.0); MEAN CORPUSCULAR HEMOGLOBIN 29.2 pg (27.0-31.0); MEAN CORPUSCULAR HGB CONC 34.4 g/dL (33.0-37.0); MEAN PLATELET VOLUME 9.4 fL (7.2-11.7); MONO % 9.7 % (0.0-10.0); NEUT # 6.5 K/uL (1.8-7.0); NEUT % 64.6 % (50.0-75.0); RBC 2.81 Mil/uL (3.80-5.20); RED CELL DISTRIBUTION WIDTH 15.3 % (11.5-14.5)
[2017-05-07 06:20] LABS: ALB/GLOB RATIO 0.9 (1.0-2.1); ALBUMIN 2.8 g/dL (3.5-5.0); ALT/SGPT 74 U/L (9-52); AST/SGOT 61 U/L (14-36); BLOOD UREA NITROGEN 6 mg/dL (7-17); CALCIUM 8.5 mg/dl (8.6-10.4); GFR AFRICAN-AMERICAN > 60; GFR NON-AFRICAN AMERICAN > 60
--- NOTE | 2017-05-07 08:07 | CP.PCM.PN ---
Subjective - Date & Time of Evaluation Date of Evaluation: 05/07/17 Time of Evaluation: 07:52 - Subjective Subjective: PGY-[address] Swift Service: Pt seen and examined at bedside in the ICU. Patient remains on mechanical ventilation. ROS unavailable at this time due to pt condition. Objective - Vital Signs/Intake and Output Vital Signs (last 24 hours): Temp Pulse Resp BP Pulse Ox 98.6 F 91 H 16 111/80 100 05/07/17 04:00 05/07/17 07:00 05/07/17 07:00 05/07/17 06:24 05/07/17 07:00 Intake and Output: 05/07/17 05/07/17 06:59 18:59 Intake Total 1216 75 Output Total 850 Balance 366 75 - Medications Medications: Current Medications Acetaminophen (Tylenol 650mg/20.3ml Solution Ud) 650 mg PO Q4 PRN PRN Reason: Temperature Last Admin: 05/02/17 02:00 Dose: 650 mg Heparin Sodium (Porcine) (Heparin) 5,000 units SC Q8 [facility] Last Admin: 05/07/17 05:51 Dose: 5,000 units Fluconazole (Diflucan Iv 200 Mg/100 Ml Ns) 100 mls @ 100 mls/hr IVPB DAILY [facility] Last Admin: 05/06/17 11:45 Dose: 100 mls/hr Cefepime HCl 1 gm/ Dextrose 50 mls @ 100 mls/hr IVPB DAILY [facility] Last Admin: 05/06/17 11:16 Dose: 100 mls/hr Levetiracetam 500 mg/ Sodium (Chloride) 105 mls @ 420 mls/hr IVPB Q12H [facility] Last Admin: 05/06/17 22:03 Dose: 420 mls/hr Linezolid (Zyvox 600mg/300ml D5w) 600 mg in 300 mls @ 200 mls/hr IVPB Q12 [facility] Last Admin: 05/07/17 00:37 Dose: 200 mls/hr Potassium Chloride/Dextrose/Sod Cl (Potassium Chl 20 Meq In D5-1/2ns) 1,000 mls @ 60 mls/hr IV .[id number] [facility] Last Admin: 05/07/17 03:00 Dose: Not Given Lorazepam (Ativan) 0.5 mg IVP Q6H PRN PRN Reason: Anxiety Metoprolol Tartrate (Lopressor) 5 mg IVP Q6H PRN PRN Reason: Systolic Blood Pressure Metoprolol Tartrate (Lopressor) 75 mg PO BID [facility] Last Admin: 05/06/17 18:08 Dose: 75 mg Multivitamins/Vitamin C (Multi-Delyn Liquid) 5 ml PO DAILY [facility] Last Admin: 05/06/17 10:25 Dose: 5 ml Pantoprazole Sodium (Protonix Inj) 20 mg IVP BID [facility] Last Admin: 05/06/17 18:09 Dose: 20 mg Quetiapine Fumarate (Seroquel) 200 mg PO BID [facility] Last Admin: 05/06/17 18:09 Dose: 200 mg - Labs Labs: 05/07/17 05:55 05/07/17 05:55 PT 14.0 SECONDS (9.7-12.2) H 04/25/17 06:25 INR 1.2 04/25/17 06:25 APTT 32 SECONDS (21-34) 04/25/17 06:25 - Constitutional Appears: No Acute Distress, Chronically Ill - Head Exam Head Exam: ATRAUMATIC, NORMAL INSPECTION - Eye Exam Eye Exam: EOMI, Normal appearance - ENT Exam ENT Exam: Mucous Membranes Dry Additional comments: trach - Respiratory Exam Respiratory Exam: Rhonchi Additional comments: Pt on MV - Cardiovascular Exam Cardiovascular Exam: REGULAR RHYTHM, +S1, +S2 - GI/Abdominal Exam GI & Abdominal Exam: Soft, Normal Bowel Sounds - Extremities Exam Extremities Exam: absent: Pedal Edema - Neurological Exam Neurological Exam: absent: Alert, Awake, Oriented x3 - Psychiatric Exam Psychiatric exam: absent: Normal Affect, Normal Mood - Skin Skin Exam: Dry, Intact Assessment and Plan - Assessment and Plan (Free Text) Plan: Sepsis Pt now off pressors Dr. Shultz, ID [facility] Cefepime 1gm IV Daily (start 05/03/17) Linezolid 600mg IV Q12H (start 05/04/17) ID: Gram + cocci in the urine SMA syndrome s/p gastrojejunostomy for SMA syndrome, J tube removed NGT for tube feeds, tolerating feeds at this time repeat EGD unremarkable NS + KCL @ 60mls/hr Hypoxic Respiratory failure Trach Tolerating CPAP trials briefly Persistent tachycardia SVT bouts over course, rate controlled today partially controlled on diprivan Lopressor 75mg PO BID Hx of schizophrenia Pt non-verbal at baseline ICU team restarted home med: Seroquel 100mg PO q12hrs Seizure disorder keppra 500mg IV Q12H Pancreatitis Resolved Elevated Alk phos f/u RUQ US Vomiting Reglan/Zofran Acute Kidney injury Resolved Required Dr. Saenz, Nephrology [employer] [facility] - Na, Renal Fxn stable Bacteruria ID: Urine Cx (05/02/17) Gram + cocci in the urine Zyvox Fluconazole 200mg IV Prophylaxis: Protonix 20mg IB PO BID Heparin 5000 u Q8H [facility] Management per ICU team Discussed with attending, Dr. Reyes
--- NOTE | 2017-05-07 08:41 | CP.PCM.PN ---
Subjective - Date & Time of Evaluation Date of Evaluation: 05/07/17 Time of Evaluation: 08:38 - Subjective Subjective: Notes reviewed Remains on vent Unresponsive to commands Soft mittens on No family present ROS unobtainable due to ams Objective - Vital Signs/Intake and Output Vital Signs (last 24 hours): Temp Pulse Resp BP Pulse Ox 98.6 F 91 H 16 111/80 100 05/07/17 04:00 05/07/17 07:00 05/07/17 07:00 05/07/17 06:24 05/07/17 07:00 Intake and Output: 05/07/17 05/07/17 06:59 18:59 Intake Total 1216 75 Output Total 850 Balance 366 75 - Medications Medications: Current Medications Acetaminophen (Tylenol 650mg/20.3ml Solution Ud) 650 mg PO Q4 PRN PRN Reason: Temperature Last Admin: 05/02/17 02:00 Dose: 650 mg Heparin Sodium (Porcine) (Heparin) 5,000 units SC Q8 [facility] Last Admin: 05/07/17 05:51 Dose: 5,000 units Fluconazole (Diflucan Iv 200 Mg/100 Ml Ns) 100 mls @ 100 mls/hr IVPB DAILY [facility] Last Admin: 05/06/17 11:45 Dose: 100 mls/hr Cefepime HCl 1 gm/ Dextrose 50 mls @ 100 mls/hr IVPB DAILY [facility] Last Admin: 05/06/17 11:16 Dose: 100 mls/hr Levetiracetam 500 mg/ Sodium (Chloride) 105 mls @ 420 mls/hr IVPB Q12H [facility] Last Admin: 05/06/17 22:03 Dose: 420 mls/hr Linezolid (Zyvox 600mg/300ml D5w) 600 mg in 300 mls @ 200 mls/hr IVPB Q12 [facility] Last Admin: 05/07/17 00:37 Dose: 200 mls/hr Potassium Chloride/Dextrose/Sod Cl (Potassium Chl 20 Meq In D5-1/2ns) 1,000 mls @ 60 mls/hr IV .[id number] [facility] Last Admin: 05/07/17 03:00 Dose: Not Given Magnesium Sulfate/Dextrose (Magnesium Sulfate 1 Gm/100 Ml D5w) 1 gm in 100 mls @ 300 mls/hr IVPB Q30M [facility] Stop: 05/07/17 09:49 Lorazepam (Ativan) 0.5 mg IVP Q6H PRN PRN Reason: Anxiety Metoprolol Tartrate (Lopressor) 5 mg IVP Q6H PRN PRN Reason: Systolic Blood Pressure Metoprolol Tartrate (Lopressor) 75 mg PO BID [facility] Last Admin: 05/06/17 18:08 Dose: 75 mg Multivitamins/Vitamin C (Multi-Delyn Liquid) 5 ml PO DAILY [facility] Last Admin: 05/06/17 10:25 Dose: 5 ml Pantoprazole Sodium (Protonix Inj) 20 mg IVP BID [facility] Last Admin: 05/06/17 18:09 Dose: 20 mg Quetiapine Fumarate (Seroquel) 200 mg PO BID [facility] Last Admin: 05/06/17 18:09 Dose: 200 mg - Labs Labs: 05/07/17 05:55 05/07/17 05:55 PT 14.0 SECONDS (9.7-12.2) H 04/25/17 06:25 INR 1.2 04/25/17 06:25 APTT 32 SECONDS (21-34) 04/25/17 06:25 - Constitutional Appears: Confused, Chronically Ill - Eye Exam Eye Exam: EOMI, Normal appearance - ENT Exam ENT Exam: Mucous Membranes Moist Additional comments: TRach - Respiratory Exam Respiratory Exam: Rhonchi. absent: Wheezes - Cardiovascular Exam Cardiovascular Exam: REGULAR RHYTHM, +S1, +S2. absent: Rubs - GI/Abdominal Exam GI & Abdominal Exam: Soft, Normal Bowel Sounds - Extremities Exam Extremities Exam: absent: Joint Swelling, Pedal Edema - Neurological Exam Neurological Exam: Awake. absent: Oriented x3 - Skin Skin Exam: Dry, Intact Assessment and Plan (1) Acute pancreatitis Status: Acute (2) Acute renal failure Status: Acute (3) SBO (small bowel obstruction) Status: Acute (4) Schizophrenia Status: Acute - Assessment and Plan (Free Text) Assessment: Renal function remains stable Electrolytes acceptable Surgical follow up Wean vent as possible Tube feeding Supportive care
[2017-05-07] MEDS: Magnesium Sulfate 1 gm in D5W 1 GM/100 ML BAG IVPB SCH ×2 (08:42→09:14)
[2017-05-07] MEDS: Multiple Vitamins Oral Solution PO SCH (09:05)
[2017-05-07] MEDS: levETIRAcetam 500 MG in Sodium Chloride 0.9% 100 ML IVPB SCH ×2 (09:45→21:30)
[2017-05-07] MEDS: Fluconazole IV 200mg/100 ml NS 100 ML IVPB SCH (12:13)
--- NOTE | 2017-05-07 12:41 | CP.PCM.PN ---
Subjective - Date & Time of Evaluation Date of Evaluation: 05/07/17 Time of Evaluation: 12:39 - Subjective Subjective: Patient awake, alert, HR controlled, no acute events overnight Objective - Vital Signs/Intake and Output Vital Signs (last 24 hours): Temp Pulse Resp BP Pulse Ox 98.8 F 100 H 16 85/57 L 100 05/07/17 12:00 05/07/17 12:24 05/07/17 12:24 05/07/17 12:24 05/07/17 12:24 Intake and Output: 05/07/17 05/07/17 06:59 18:59 Intake Total 1216 450 Output Total 850 Balance 366 450 - Medications Medications: Current Medications Acetaminophen (Tylenol 650mg/20.3ml Solution Ud) 650 mg PO Q4 PRN PRN Reason: Temperature Last Admin: 05/02/17 02:00 Dose: 650 mg Heparin Sodium (Porcine) (Heparin) 5,000 units SC Q8 [facility] Last Admin: 05/07/17 05:51 Dose: 5,000 units Fluconazole (Diflucan Iv 200 Mg/100 Ml Ns) 100 mls @ 100 mls/hr IVPB DAILY [facility] Last Admin: 05/07/17 12:13 Dose: 100 mls/hr Cefepime HCl 1 gm/ Dextrose 50 mls @ 100 mls/hr IVPB DAILY [facility] Last Admin: 05/07/17 10:00 Dose: 100 mls/hr Levetiracetam 500 mg/ Sodium (Chloride) 105 mls @ 420 mls/hr IVPB Q12H [facility] Last Admin: 05/07/17 09:45 Dose: 420 mls/hr Linezolid (Zyvox 600mg/300ml D5w) 600 mg in 300 mls @ 200 mls/hr IVPB Q12 [facility] Last Admin: 05/07/17 10:45 Dose: 200 mls/hr Potassium Chloride/Dextrose/Sod Cl (Potassium Chl 20 Meq In D5-1/2ns) 1,000 mls @ 60 mls/hr IV .[id number] [facility] Last Admin: 05/07/17 03:00 Dose: Not Given Lorazepam (Ativan) 0.5 mg IVP Q6H PRN PRN Reason: Anxiety Metoprolol Tartrate (Lopressor) 5 mg IVP Q6H PRN PRN Reason: Systolic Blood Pressure Metoprolol Tartrate (Lopressor) 75 mg PO BID [facility] Last Admin: 05/07/17 09:04 Dose: 75 mg Multivitamins/Vitamin C (Multi-Delyn Liquid) 5 ml PO DAILY [facility] Last Admin: 05/07/17 09:05 Dose: 5 ml Pantoprazole Sodium (Protonix Inj) 20 mg IVP BID [facility] Last Admin: 05/07/17 09:04 Dose: 20 mg Quetiapine Fumarate (Seroquel) 100 mg PO BID [facility] - Labs Labs: 05/07/17 05:55 05/07/17 05:55 PT 14.0 SECONDS (9.7-12.2) H 04/25/17 06:25 INR 1.2 04/25/17 06:25 APTT 32 SECONDS (21-34) 04/25/17 06:25 - Head Exam Head Exam: ATRAUMATIC - ENT Exam ENT Exam: Mucous Membranes Moist - Respiratory Exam Respiratory Exam: Clear to Ausculation Bilateral, NORMAL BREATHING PATTERN - Cardiovascular Exam Cardiovascular Exam: REGULAR RHYTHM Assessment and Plan - Assessment and Plan (Free Text) Plan: CHronic ventilator dependent: s/p trach, continue CPAP trials daily -SVT/tachycardia: controlled -agitation: restarted home medications: seroquel, currently 100mg q12hrs -increase in alk phso: check RUQ US -tolerating NG diet -continue dvt/pud ppx Patient is chronic ventilator dependent and remains hemodynamically stable continue to monitor
--- NOTE | 2017-05-07 16:19 | US ---
Abdominal ultrasound History: Abnormal enzymes. Comparison: 04/27/2017 Technique: Real-time sonography was performed through the abdomen. Findings: Study limited secondary to portable technique. Liver: Prominent. 18.9 centimeters. Increased echogenicity of the hepatic parenchymal cortex suggestive for fatty infiltration versus hepatic parenchymal disease. Clinical correlation. Gallbladder: Echogenic sludge. No gross calculi. Normal wall thickness of 2.4 millimeters. Negative sonographic Pineda's sign. Common bile duct measures 3.4 millimeters, within normal limits. Pancreas not well visualized. Spleen measures 10.9 centimeters in length, within normal limits. Visualized aorta and IVC are preserved. Right kidney: 12.1 x 5.2 x 5.5 centimeters. Increased echogenicity of the renal parenchymal cortex. No calculi or hydronephrosis. Left Kidney: 11.1 x 5.1 x 4.8 centimeters. Increased echogenicity of the renal parenchymal cortex. No calculi or hydronephrosis. Incidentally noted is a small left pleural effusion. Small amount of abdominal ascites is noted. Impression: Study limited secondary to portable technique. Prominent liver with diffuse increased echogenicity suggestive for fatty infiltration versus hepatic parenchymal disease. Clinical correlation. Gallbladder sludge. Pancreas not well visualized. Increased echogenicity of the bilateral renal parenchymal cortices suggestive for medical renal disease. Left pleural effusion. Small amount of abdominal ascites.
[2017-05-08 06:38] LABS: BASO % 0.4 % (0.0-2.0); EOS # 0.3 K/uL (0.0-0.7); EOS % 3.3 % (0.0-4.0); LYMPH # 2.5 K/uL (1.0-4.3); LYMPH % 24.3 % (20.0-40.0); MEAN CELL VOLUME 85.6 fL (81.0-99.0); MEAN CORPUSCULAR HEMOGLOBIN 28.4 pg (27.0-31.0); MEAN CORPUSCULAR HGB CONC 33.2 g/dL (33.0-37.0); MEAN PLATELET VOLUME 9.8 fL (7.2-11.7); MONO % 10.1 % (0.0-10.0); NEUT # 6.3 K/uL (1.8-7.0); NEUT % 61.9 % (50.0-75.0); NRBC % 0.1 % (0.0-2.0); RBC 2.82 Mil/uL (3.80-5.20); RED CELL DISTRIBUTION WIDTH 15.5 % (11.5-14.5); WHITE BLOOD COUNT 10.1 K/uL (4.8-10.8)
[2017-05-08 06:44] LABS: ALB/GLOB RATIO 0.9 (1.0-2.1); ALBUMIN 2.9 g/dL (3.5-5.0); ALT/SGPT 70 U/L (9-52); AST/SGOT 58 U/L (14-36); BLOOD UREA NITROGEN 6 mg/dL (7-17); CALCIUM 8.3 mg/dl (8.6-10.4); GFR AFRICAN-AMERICAN > 60; GFR NON-AFRICAN AMERICAN > 60
--- NOTE | 2017-05-08 07:49 | CP.PCM.PN ---
Subjective - Date & Time of Evaluation Date of Evaluation: 05/08/17 Time of Evaluation: 07:49 - Subjective Subjective: PGY-[address] Swift Service: Pt seen and examined at bedside in the ICU. Patient remains on mechanical ventilation. NGT, trach in place. ROS unavailable at this time due to pt condition. Objective - Vital Signs/Intake and Output Vital Signs (last 24 hours): Temp Pulse Resp BP Pulse Ox 98.6 F 130 H 15 109/68 100 05/08/17 04:00 05/08/17 06:11 05/08/17 06:11 05/08/17 06:11 05/08/17 06:11 Intake and Output: 05/08/17 05/08/17 06:59 18:59 Intake Total 1350 Output Total 475 Balance 875 - Medications Medications: Current Medications Acetaminophen (Tylenol 650mg/20.3ml Solution Ud) 650 mg PO Q4 PRN PRN Reason: Temperature Last Admin: 05/02/17 02:00 Dose: 650 mg Bisacodyl (Dulcolax) 10 mg [place] Q24H PRN PRN Reason: Constipation Last Admin: 05/08/17 06:02 Dose: 10 mg Heparin Sodium (Porcine) (Heparin) 5,000 units SC Q8 [facility] Last Admin: 05/08/17 06:02 Dose: 5,000 units Fluconazole (Diflucan Iv 200 Mg/100 Ml Ns) 100 mls @ 100 mls/hr IVPB DAILY [facility] Last Admin: 05/07/17 12:13 Dose: 100 mls/hr Cefepime HCl 1 gm/ Dextrose 50 mls @ 100 mls/hr IVPB DAILY [facility] Last Admin: 05/07/17 10:00 Dose: 100 mls/hr Levetiracetam 500 mg/ Sodium (Chloride) 105 mls @ 420 mls/hr IVPB Q12H [facility] Last Admin: 05/07/17 21:30 Dose: 420 mls/hr Linezolid (Zyvox 600mg/300ml D5w) 600 mg in 300 mls @ 200 mls/hr IVPB Q12 [facility] Last Admin: 05/07/17 21:30 Dose: 200 mls/hr Potassium Chloride/Dextrose/Sod Cl (Potassium Chl 20 Meq In D5-1/2ns) 1,000 mls @ 60 mls/hr IV .[id number] [facility] Last Admin: 05/07/17 21:31 Dose: 60 mls/hr Lorazepam (Ativan) 0.5 mg IVP Q6H PRN PRN Reason: Anxiety Metoprolol Tartrate (Lopressor) 5 mg IVP Q6H PRN PRN Reason: Systolic Blood Pressure Metoprolol Tartrate (Lopressor) 75 mg PO BID [facility] Last Admin: 05/07/17 17:58 Dose: 75 mg Multivitamins/Vitamin C (Multi-Delyn Liquid) 5 ml PO DAILY [facility] Last Admin: 05/07/17 09:05 Dose: 5 ml Pantoprazole Sodium (Protonix Inj) 20 mg IVP BID [facility] Last Admin: 05/07/17 17:58 Dose: 20 mg Quetiapine Fumarate (Seroquel) 100 mg PO BID [facility] - Labs Labs: 05/08/17 06:23 05/08/17 06:24 PT 14.0 SECONDS (9.7-12.2) H 04/25/17 06:25 INR 1.2 04/25/17 06:25 APTT 32 SECONDS (21-34) 04/25/17 06:25 - Additional Findings Additional findings: - Constitutional Appears: No Acute Distress, Chronically Ill - Head Exam Head Exam: ATRAUMATIC, NORMAL INSPECTION - Eye Exam Eye Exam: EOMI, Normal appearance - ENT Exam ENT Exam: Mucous Membranes Dry Additional comments: trach - Respiratory Exam Respiratory Exam: Rhonchi Additional comments: Pt on MV - Cardiovascular Exam Cardiovascular Exam: REGULAR RHYTHM, +S1, +S2 - GI/Abdominal Exam GI & Abdominal Exam: Soft, Normal Bowel Sounds - Extremities Exam Extremities Exam: absent: Pedal Edema - Neurological Exam Neurological Exam: absent: Alert, Awake, Oriented x3 - Psychiatric Exam Psychiatric exam: absent: Normal Affect, Normal Mood - Skin Skin Exam: Dry, Intact Assessment and Plan - Assessment and Plan (Free Text) Plan: Sepsis Pt now off pressors Dr. 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 Possible fatty infiltration vs parenchymal disease. Sludge. Left pleural effusoin. Small ascites. Vomiting Reglan/Zofran Acute Kidney injury Resolved Required Dr. Saenz, Nephrology jury consultant - Na, Renal Fxn stable Bacteruria ID: Urine Cx (05/02/17) Gram + cocci in the urine Zyvox Fluconazole 200mg IV Prophylaxis: Protonix 20mg IB PO BID Heparin 5000 u Q8H [facility] Management per ICU team Discussed with attending, Dr. Reyes
--- NOTE | 2017-05-08 09:51 | CP.CCUPN ---
CCU Subjective - Physician Review Events Since Last Encounter (Free Text): 05/08/17 09:5 Patient's clinical condition is not changed much. Patient has NG tube, she is currently getting 20 mL feeding, but high residuel is noted. Bilateral secretions present. On examination: Patient is awake and responding to a Tachycardia noted. On ventilator. Chest x-ray is much better today. We'll continue the weaning process, possible C-peptide. And will follow the patient CCU Objective - Vital Signs / Intake & Output Vital Signs (Last 4 hours): Vital Signs Temp Pulse Resp BP Pulse Ox 05/08/17 09:00 114 H 13 100 05/08/17 08:39 102 H 16 113/77 100 05/08/17 08:09 118 H 17 108/73 100 05/08/17 08:00 98.2 F 105 H 16 100 05/08/17 07:39 115 H 14 105/74 99 05/08/17 07:09 117 H 21 111/73 99 05/08/17 07:00 121 H 15 100 05/08/17 06:11 130 H 15 109/68 100 05/08/17 06:00 126 H 15 98 Intake and Output (Last 8hrs): Intake & Output 05/07/17 05/08/17 05/08/17 22:59 06:59 14:59 Intake Total 1000 650 160 Output Total 475 Balance 1000 175 160 Intake: Intake, IV Amount 880 480 120 Left Distal Port PICC 400 Left PICC 480 480 120 Tube Feeding 120 130 40 Other 40 Output: Drainage 175 Right Lower Abdomen 175 Urine 300 Urine, Voided 300 Other: # Bowel Movements 0 0 - Physical Exam Head: Positive for: Atraumatic, Normocephalic. Negative for: Tenderness Pupils: Positive for: PERRL Extroacular Muscles: Positive for: EOMI Mouth: Positive for: Moist Mucous Membranes. Negative for: Dry, Drooling Nose (External): Positive for: Other (NGT in place) Nose (Internal): Positive for: Normal Inspection, Moist Neck: Positive for: Other (trach). Negative for: JVD, Lymphadenopathy Respiratory/Chest: Positive for: Clear to Auscultation. Negative for: Respiratory Distress, Accessory Muscle Use Cardiovascular: Positive for: Regular Rate and Rhythm, Normal S1, S2 Abdomen: Positive for: Tenderness (mild tenderness of palpation. patient continues to move her arms towards hands on palpation), Normal Bowel Sounds. Negative for: Distention, Peritoneal Signs, Guarding Upper Extremity: Positive for: Normal Inspection, Normal ROM, Capillary Refill < 2s. Negative for: Edema Lower Extremity: Positive for: Normal Inspection. Negative for: Edema Neurological: Positive for: CN II-XII Intact Skin: Positive for: Warm, Pale Psychiatric: Positive for: Alert - Medications Active Medications: Active Medications Generic Name Dose Route Start Last Admin Trade Name Freq PRN Reason Stop Dose Admin Acetaminophen 650 mg 04/28/17 20:11 05/02/17 02:00 Tylenol 650mg/20.3ml Solution Ud PO 650 mg Q4 PRN Administration Temperature Bisacodyl 10 mg 05/07/17 13:35 05/08/17 06:02 Dulcolax [place] 10 mg Q24H PRN Administration Constipation Heparin Sodium (Porcine) 5,000 units 05/06/17 22:00 05/08/17 06:02 Heparin SC 5,000 units Q8 [facility] Administration Fluconazole 100 mls @ 100 mls/hr 04/28/17 10:00 05/07/17 12:13 Diflucan Iv 200 Mg/100 Ml Ns IVPB 100 mls/hr DAILY [facility] Administration Cefepime HCl 1 gm/ Dextrose 50 mls @ 100 mls/hr 05/03/17 10:00 05/07/17 10:00 IVPB 100 mls/hr DAILY [facility] Administration Levetiracetam 500 mg/ Sodium 105 mls @ 420 mls/hr 05/03/17 22:00 05/07/17 21: 30 Chloride IVPB 420 mls/hr Q12H [facility] Administration Linezolid 600 mg in 300 mls @ 200 mls/hr 05/04/17 22:00 05/07/17 21:30 Zyvox 600mg/300ml D5w IVPB 200 mls/hr Q12 [facility] Administration Potassium Chloride/Dextrose/Sod Cl 1,000 mls @ 60 mls/hr 05/05/17 00:30 05/07 21:31 Potassium Chl 20 Meq In D5-1/2ns IV 60 mls/hr .[id number] [facility] Administration Lorazepam 0.5 mg 05/05/17 12:00 Ativan IVP Q6H PRN Anxiety Metoprolol Tartrate 5 mg 05/06/17 10:27 Lopressor IVP Q6H PRN Systolic Blood Pressure Metoprolol Tartrate 75 mg 05/06/17 14:35 05/07/17 17:58 Lopressor PO 75 mg BID [facility] Administration Multivitamins/Vitamin C 5 ml 04/30/17 12:00 05/07/17 09:05 Multi-Delyn Liquid PO 5 ml DAILY [facility] Administration Pantoprazole Sodium 20 mg 04/19/17 18:00 05/07/17 17:58 Protonix Inj IVP 20 mg BID [facility] Administration Quetiapine Fumarate 100 mg 05/07/17 10:17 Seroquel PO BID [facility] - Patient Studies Lab Studies: Microbiology Studies 05/02/17 20:41 Blood Culture - Final Blood NO GROWTH AFTER 5 DAYS Gram Stain - Final TEST NOT PERFORMED 05/02/17 20:40 Blood Culture - Final Blood NO GROWTH AFTER 5 DAYS Gram Stain - Final TEST NOT PERFORMED 04/28/17 20:00 Blood Fungal Culture - Preliminary Other: Please Indicate Lab Studies 05/08/17 05/08/17 05/08/17 Range/Units 06:24 06:23 05:39 WBC 10.1 (4.8-10.8) K/uL RBC 2.82 L (3.80-5.20) Mil/uL Hgb 8.0 L (11.0-16.0) g/dL Hct 24.2 L (34.0-47.0) % MCV 85.6 (81.0-99.0) fL MCH 28.4 (27.0-31.0) pg MCHC 33.2 (33.0-37.0) g/dL RDW 15.5 H (11.5-14.5) % Plt Count 376 (130-400) K/uL MPV 9.8 (7.2-11.7) fL Neut % (Auto) 61.9 (50.0-75.0) % Lymph % (Auto) 24.3 (20.0-40.0) % [place] % (Auto) 10.1 H (0.0-10.0) % Eos % (Auto) 3.3 (0.0-4.0) % Baso % (Auto) 0.4 (0.0-2.0) % Neut # 6.3 (1.8-7.0) K/uL Lymph # 2.5 (1.0-4.3) K/uL [place] # 1.0 H (0.0-0.8) K/uL Eos # 0.3 (0.0-0.7) K/uL Baso # 0.0 (0.0-0.2) K/uL Sodium 137 (132-148) mmol/L Potassium 3.9 (3.6-5.2) mmol/L Chloride 102 (98-107) mmol/L Carbon Dioxide 26 (22-30) mmol/L Anion Gap 13 (10-20) BUN 6 L (7-17) mg/dL Creatinine 0.8 (0.7-1.2) mg/dL Est GFR ( Amer) > 60 Est GFR (Non-Af Amer) > 60 POC Glucose (mg/dL) 103 (65-110) mg/dL Random Glucose 96 (65-105) mg/dL Calcium 8.3 L (8.6-10.4) mg/dl Total Bilirubin 0.5 (0.2-1.3) mg/dL AST 58 H (14-36) U/L ALT 70 H (9-52) U/L Alkaline Phosphatase 309 H (38-126) U/L Total Protein 6.2 L (6.3-8.3) g/dL Albumin 2.9 L (3.5-5.0) g/dL Globulin 3.3 (2.2-3.9) gm/dL Albumin/Globulin Ratio 0.9 L (1.0-2.1) 05/08/17 05/07/17 05/07/17 Range/Units 00:06 17:52 11:53 WBC (4.8-10.8) K/uL RBC (3.80-5.20) Mil/uL Hgb (11.0-16.0) g/dL Hct (34.0-47.0) % MCV (81.0-99.0) fL MCH (27.0-31.0) pg MCHC (33.0-37.0) g/dL RDW (11.5-14.5) % Plt Count (130-400) K/uL MPV (7.2-11.7) fL Neut % (Auto) (50.0-75.0) % Lymph % (Auto) (20.0-40.0) % [place] % (Auto) (0.0-10.0) % Eos % (Auto) (0.0-4.0) % Baso % (Auto) (0.0-2.0) % Neut # (1.8-7.0) K/uL Lymph # (1.0-4.3) K/uL [place] # (0.0-0.8) K/uL Eos # (0.0-0.7) K/uL Baso # (0.0-0.2) K/uL Sodium (132-148) mmol/L Potassium (3.6-5.2) mmol/L Chloride (98-107) mmol/L Carbon Dioxide (22-30) mmol/L Anion Gap (10-20) BUN (7-17) mg/dL Creatinine (0.7-1.2) mg/dL Est GFR ( Amer) Est GFR (Non-Af Amer) POC Glucose (mg/dL) 99 102 129 H (65-110) mg/dL Random Glucose (65-105) mg/dL Calcium (8.6-10.4) mg/dl Total Bilirubin (0.2-1.3) mg/dL AST (14-36) U/L ALT (9-52) U/L Alkaline Phosphatase (38-126) U/L Total Protein (6.3-8.3) g/dL Albumin (3.5-5.0) g/dL Globulin (2.2-3.9) gm/dL Albumin/Globulin Ratio (1.0-2.1) 05/07/17 Range/Units 10:19 WBC (4.8-10.8) K/uL RBC (3.80-5.20) Mil/uL Hgb (11.0-16.0) g/dL Hct (34.0-47.0) % MCV (81.0-99.0) fL MCH (27.0-31.0) pg MCHC (33.0-37.0) g/dL RDW (11.5-14.5) % Plt Count (130-400) K/uL MPV (7.2-11.7) fL Neut % (Auto) (50.0-75.0) % Lymph % (Auto) (20.0-40.0) % [place] % (Auto) (0.0-10.0) % Eos % (Auto) (0.0-4.0) % Baso % (Auto) (0.0-2.0) % Neut # (1.8-7.0) K/uL Lymph # (1.0-4.3) K/uL [place] # (0.0-0.8) K/uL Eos # (0.0-0.7) K/uL Baso # (0.0-0.2) K/uL Sodium (132-148) mmol/L Potassium (3.6-5.2) mmol/L Chloride (98-107) mmol/L Carbon Dioxide (22-30) mmol/L Anion Gap (10-20) BUN (7-17) mg/dL Creatinine (0.7-1.2) mg/dL Est GFR ( Amer) Est GFR (Non-Af Amer) POC Glucose (mg/dL) 124 H (65-110) mg/dL Random Glucose (65-105) mg/dL Calcium (8.6-10.4) mg/dl Total Bilirubin (0.2-1.3) mg/dL AST (14-36) U/L ALT (9-52) U/L Alkaline Phosphatase (38-126) U/L Total Protein (6.3-8.3) g/dL Albumin (3.5-5.0) g/dL Globulin (2.2-3.9) gm/dL Albumin/Globulin Ratio (1.0-2.1) Laboratory Results - last 24 hr 05/07/17 05/07/17 05/07/17 10:19 11:53 17:52 WBC RBC Hgb Hct MCV MCH MCHC RDW Plt Count MPV Neut % (Auto) Lymph % (Auto) [place] % (Auto) Eos % (Auto) Baso % (Auto) Neut # Lymph # [place] # Eos # Baso # Sodium Potassium Chloride Carbon Dioxide Anion Gap BUN Creatinine Est GFR ( Amer) Est GFR (Non-Af Amer) POC Glucose (mg/dL) 124 H 129 H 102 Random Glucose Calcium Total Bilirubin AST ALT Alkaline Phosphatase Total Protein Albumin Globulin Albumin/Globulin Ratio 01/05/08/17 05/08/17 00:06 05:39 06:23 WBC 10.1 RBC 2.82 L Hgb 8.0 L Hct 24.2 L MCV 85.6 MCH 28.4 MCHC 33.2 RDW 15.5 H Plt Count 376 MPV 9.8 Neut % (Auto) 61.9 Lymph % (Auto) 24.3 [place] % (Auto) 10.1 H Eos % (Auto) 3.3 Baso % (Auto) 0.4 Neut # 6.3 Lymph # 2.5 [place] # 1.0 H Eos # 0.3 Baso # 0.0 Sodium Potassium Chloride Carbon Dioxide Anion Gap BUN Creatinine Est GFR ( Amer) Est GFR (Non-Af Amer) POC Glucose (mg/dL) 99 103 Random Glucose Calcium Total Bilirubin AST ALT Alkaline Phosphatase Total Protein Albumin Globulin Albumin/Globulin Ratio 05/08/17 06:24 WBC RBC Hgb Hct MCV MCH MCHC RDW Plt Count MPV Neut % (Auto) Lymph % (Auto) [place] % (Auto) Eos % (Auto) Baso % (Auto) Neut # Lymph # [place] # Eos # Baso # Sodium 137 Potassium 3.9 Chloride 102 Carbon Dioxide 26 Anion Gap 13 BUN 6 L Creatinine 0.8 Est GFR ( Amer) > 60 Est GFR (Non-Af Amer) > 60 POC Glucose (mg/dL) Random Glucose 96 Calcium 8.3 L Total Bilirubin 0.5 AST 58 H ALT 70 H Alkaline Phosphatase 309 H Total Protein 6.2 L Albumin 2.9 L Globulin 3.3 Albumin/Globulin Ratio 0.9 L Fingerstick Blood Sugar Results: 103
--- NOTE | 2017-05-08 10:00 | CP.PCM.PN ---
Subjective - Date & Time of Evaluation Date of Evaluation: 05/08/17 Time of Evaluation: 09:58 - Subjective Subjective: Ms. Rivera was seen and examined at the bedside in ICU. She is awake opens her eyes spontaneously, but does not follow commands. She remains witha trach and peg for feeding. She is able to move all extremities spontaneously. She has a bilateral upper extremities hand mittens for patient safety. There was no untoward events overnight. Objective - Vital Signs/Intake and Output Vital Signs (last 24 hours): Temp Pulse Resp BP Pulse Ox 98.2 F 114 H 13 113/77 100 05/08/17 08:00 05/08/17 09:00 05/08/17 09:00 05/08/17 08:39 05/08/17 09:00 Intake and Output: 05/08/17 05/08/17 06:59 18:59 Intake Total 1350 160 Output Total 475 Balance 875 160 - Medications Medications: Current Medications Acetaminophen (Tylenol 650mg/20.3ml Solution Ud) 650 mg PO Q4 PRN PRN Reason: Temperature Last Admin: 05/02/17 02:00 Dose: 650 mg Bisacodyl (Dulcolax) 10 mg SC Q24H PRN PRN Reason: Constipation Last Admin: 05/08/17 06:02 Dose: 10 mg Heparin Sodium (Porcine) (Heparin) 5,000 units SC Q8 [facility] Last Admin: 05/08/17 06:02 Dose: 5,000 units Fluconazole (Diflucan Iv 200 Mg/100 Ml Ns) 100 mls @ 100 mls/hr IVPB DAILY [facility] Last Admin: 05/07/17 12:13 Dose: 100 mls/hr Cefepime HCl 1 gm/ Dextrose 50 mls @ 100 mls/hr IVPB DAILY [facility] Last Admin: 05/07/17 10:00 Dose: 100 mls/hr Levetiracetam 500 mg/ Sodium (Chloride) 105 mls @ 420 mls/hr IVPB Q12H [facility] Last Admin: 05/07/17 21:30 Dose: 420 mls/hr Linezolid (Zyvox 600mg/300ml D5w) 600 mg in 300 mls @ 200 mls/hr IVPB Q12 [facility] Last Admin: 05/07/17 21:30 Dose: 200 mls/hr Potassium Chloride/Dextrose/Sod Cl (Potassium Chl 20 Meq In D5-1/2ns) 1,000 mls @ 60 mls/hr IV .[id number] [facility] Last Admin: 05/07/17 21:31 Dose: 60 mls/hr Lorazepam (Ativan) 0.5 mg IVP Q6H PRN PRN Reason: Anxiety Metoprolol Tartrate (Lopressor) 5 mg IVP Q6H PRN PRN Reason: Systolic Blood Pressure Metoprolol Tartrate (Lopressor) 75 mg PO BID [facility] Last Admin: 05/07/17 17:58 Dose: 75 mg Multivitamins/Vitamin C (Multi-Delyn Liquid) 5 ml PO DAILY [facility] Last Admin: 05/07/17 09:05 Dose: 5 ml Pantoprazole Sodium (Protonix Inj) 20 mg IVP BID [facility] Last Admin: 05/07/17 17:58 Dose: 20 mg Quetiapine Fumarate (Seroquel) 100 mg PO BID [facility] - Labs Labs: 05/08/17 06:23 05/08/17 06:24 PT 14.0 SECONDS (9.7-12.2) H 04/25/17 06:25 INR 1.2 04/25/17 06:25 APTT 32 SECONDS (21-34) 04/25/17 06:25 - Constitutional Appears: No Acute Distress - Head Exam Head Exam: NORMAL INSPECTION - Neurological Exam Neurological Exam: Awake Neuro motor strength exam: Left Upper Extremity: 5, Right Upper Extremity: 5, Left Lower Extremity: 5, Right Lower Extremity: 5 Additional comments: Neurological unchanged from previous examination. Assessment and Plan (1) Focal seizure Assessment & Plan: Case discussed with Dr. Bryant, continue all current medical therapy including AED. There is no new recommendations from neurology. Status: Acute
[2017-05-08] MEDS: levETIRAcetam 500 MG in Sodium Chloride 0.9% 100 ML IVPB SCH ×2 (10:37→21:20)
[2017-05-08] MEDS: Multiple Vitamins Oral Solution PO SCH (10:38)
--- NOTE | 2017-05-08 11:31 | CP.PCM.PN ---
Subjective - Date & Time of Evaluation Date of Evaluation: 05/08/17 Time of Evaluation: 09:05 - Subjective Subjective: General surgery progress note for Dr. Bishnu Rothman, PGY-1 Pt S & E at bedside. Pt awake, non verbal, NGT in place, trach in place, PRVC FiO2 40%, PEEP 5, RR 16 , TV 450. Tolerating tube feeds. Objective - Vital Signs/Intake and Output Vital Signs (last 24 hours): Temp Pulse Resp BP Pulse Ox 98.2 F 114 H 13 110/79 100 05/08/17 08:00 05/08/17 09:00 05/08/17 09:00 05/08/17 10:36 05/08/17 09:00 Intake and Output: 05/08/17 05/08/17 06:59 18:59 Intake Total 1350 160 Output Total 475 Balance 875 160 - Medications Medications: Current Medications Acetaminophen (Tylenol 650mg/20.3ml Solution Ud) 650 mg PO Q4 PRN PRN Reason: Temperature Last Admin: 05/02/17 02:00 Dose: 650 mg Bisacodyl (Dulcolax) 10 mg NE Q24H PRN PRN Reason: Constipation Last Admin: 05/08/17 06:02 Dose: 10 mg Heparin Sodium (Porcine) (Heparin) 5,000 units SC Q8 [facility] Last Admin: 05/08/17 06:02 Dose: 5,000 units Cefepime HCl 1 gm/ Dextrose 50 mls @ 100 mls/hr IVPB DAILY [facility] Last Admin: 05/08/17 10:36 Dose: 100 mls/hr Levetiracetam 500 mg/ Sodium (Chloride) 105 mls @ 420 mls/hr IVPB Q12H [facility] Last Admin: 05/08/17 10:37 Dose: 420 mls/hr Linezolid (Zyvox 600mg/300ml D5w) 600 mg in 300 mls @ 200 mls/hr IVPB Q12 [facility] Last Admin: 05/07/17 21:30 Dose: 200 mls/hr Potassium Chloride/Dextrose/Sod Cl (Potassium Chl 20 Meq In D5-1/2ns) 1,000 mls @ 60 mls/hr IV .[id number] [facility] Last Admin: 05/07/17 21:31 Dose: 60 mls/hr Lorazepam (Ativan) 0.5 mg IVP Q6H PRN PRN Reason: Anxiety Metoprolol Tartrate (Lopressor) 5 mg IVP Q6H PRN PRN Reason: Systolic Blood Pressure Metoprolol Tartrate (Lopressor) 75 mg PO BID [facility] Last Admin: 05/08/17 10:36 Dose: 75 mg Multivitamins/Vitamin C (Multi-Delyn Liquid) 5 ml PO DAILY [facility] Last Admin: 05/08/17 10:38 Dose: 5 ml Pantoprazole Sodium (Protonix Inj) 20 mg IVP BID [facility] Last Admin: 05/08/17 10:35 Dose: 20 mg Quetiapine Fumarate (Seroquel) 100 mg PO BID [facility] - Labs Labs: 05/08/17 06:23 05/08/17 06:24 PT 14.0 SECONDS (9.7-12.2) H 04/25/17 06:25 INR 1.2 04/25/17 06:25 APTT 32 SECONDS (21-34) 04/25/17 06:25 - Constitutional Appears: Non-toxic, No Acute Distress - Head Exam Head Exam: ATRAUMATIC, NORMAL INSPECTION, NORMOCEPHALIC Additional comments: NGT in place - Eye Exam Eye Exam: EOMI, Normal appearance - ENT Exam ENT Exam: Mucous Membranes Moist, Normal Exam - Neck Exam Additional comments: trach in place, no blood or secretions - Respiratory Exam Respiratory Exam: NORMAL BREATHING PATTERN - Cardiovascular Exam Cardiovascular Exam: Tachycardia, +S1, +S2 - GI/Abdominal Exam GI & Abdominal Exam: Soft. absent: Distended, Firm, Guarding, Rigid, Tenderness - Extremities Exam Extremities Exam: Normal Inspection - Neurological Exam Neurological Exam: Awake - Psychiatric Exam Additional comments: non verbal - Skin Skin Exam: Dry, Intact, Normal Color, Warm Assessment and Plan - Assessment and Plan (Free Text) Assessment: 36F s/p gastrojejunostomy w/ bypass and feeding jejunostomy POD#20 Plan: continue Feeding via NGT Reglan/zofran for vomiting - Monitor for emesis Mangement as per ICU/primary teams will D/W Dr. Andrea Rothman, PGY-1
[2017-05-08] MEDS: Fluconazole IV 200mg/100 ml NS 100 ML IVPB SCH (11:33)
[2017-05-08] MEDS: Potassium Ch 20mEq in D5-1/2NS 1,000 ML IV SCH (12:00)
[2017-05-08] MEDS: Linezolid 600 mg in D5W 300 ml 600 MG/300 ML BAG IVPB SCH ×2 (12:54→21:35)
--- NOTE | 2017-05-08 15:09 | CP.PCM.PN ---
Subjective - Date & Time of Evaluation Date of Evaluation: 05/08/17 Time of Evaluation: 06:00 - Subjective Subjective: OOB NAD Objective - Vital Signs/Intake and Output Vital Signs (last 24 hours): Temp Pulse Resp BP Pulse Ox 98.9 F 101 H 16 106/72 100 05/08/17 12:00 05/08/17 13:00 05/08/17 13:00 05/08/17 13:00 05/08/17 13:00 Intake and Output: 05/08/17 05/08/17 06:59 18:59 Intake Total 1350 800 Output Total 475 71 Balance 875 729 - Medications Medications: Current Medications Acetaminophen (Tylenol 650mg/20.3ml Solution Ud) 650 mg PO Q4 PRN PRN Reason: Temperature Last Admin: 05/02/17 02:00 Dose: 650 mg Bisacodyl (Dulcolax) 10 mg ND Q24H PRN PRN Reason: Constipation Last Admin: 05/08/17 06:02 Dose: 10 mg Heparin Sodium (Porcine) (Heparin) 5,000 units SC Q8 [facility] Last Admin: 05/08/17 13:31 Dose: 5,000 units Cefepime HCl 1 gm/ Dextrose 50 mls @ 100 mls/hr IVPB DAILY [facility] Last Admin: 05/08/17 10:36 Dose: 100 mls/hr Levetiracetam 500 mg/ Sodium (Chloride) 105 mls @ 420 mls/hr IVPB Q12H [facility] Last Admin: 05/08/17 10:37 Dose: 420 mls/hr Linezolid (Zyvox 600mg/300ml D5w) 600 mg in 300 mls @ 200 mls/hr IVPB Q12 [facility] Last Admin: 05/08/17 12:54 Dose: 200 mls/hr Potassium Chloride/Dextrose/Sod Cl (Potassium Chl 20 Meq In D5-1/2ns) 1,000 mls @ 60 mls/hr IV .[id number] [facility] Last Admin: 05/07/17 21:31 Dose: 60 mls/hr Lorazepam (Ativan) 0.5 mg IVP Q6H PRN PRN Reason: Anxiety Metoprolol Tartrate (Lopressor) 5 mg IVP Q6H PRN PRN Reason: Systolic Blood Pressure Metoprolol Tartrate (Lopressor) 75 mg PO BID [facility] Last Admin: 05/08/17 10:36 Dose: 75 mg Multivitamins/Vitamin C (Multi-Delyn Liquid) 5 ml PO DAILY [facility] Last Admin: 05/08/17 10:38 Dose: 5 ml Pantoprazole Sodium (Protonix Inj) 20 mg IVP BID [facility] Last Admin: 05/08/17 10:35 Dose: 20 mg Quetiapine Fumarate (Seroquel) 100 mg PO BID [facility] - Labs Labs: 05/08/17 06:23 05/08/17 06:24 PT 14.0 SECONDS (9.7-12.2) H 04/25/17 06:25 INR 1.2 04/25/17 06:25 APTT 32 SECONDS (21-34) 04/25/17 06:25 - Constitutional Appears: Non-toxic, Chronically Ill - Head Exam Head Exam: NORMOCEPHALIC - Eye Exam Eye Exam: PERRL - ENT Exam ENT Exam: Mucous Membranes Dry - Neck Exam Neck Exam: absent: Lymphadenopathy - Respiratory Exam Respiratory Exam: Decreased Breath Sounds - Cardiovascular Exam Cardiovascular Exam: REGULAR RHYTHM - GI/Abdominal Exam GI & Abdominal Exam: Distended, Soft - Rectal Exam Rectal Exam: Deferred - Exam Exam: NORMAL INSPECTION - Extremities Exam Extremities Exam: absent: Pedal Edema - Back Exam Back Exam: absent: CVA tenderness (L), CVA tenderness (R) - Neurological Exam Neurological Exam: Alert, Awake, Oriented x3 - Psychiatric Exam Psychiatric exam: Depressed - Skin Skin Exam: Dry Assessment and Plan (1) Acute pancreatitis Status: Acute (2) Leucocytosis Status: Acute - Assessment and Plan (Free Text) Assessment: slow progress cont rx
[2017-05-09] MEDS: Potassium Ch 20mEq in D5-1/2NS 1,000 ML IV SCH ×2 (00:30→04:30)
[2017-05-09] MEDS: Metoprolol 1 mg/ml Inj IVP PRN (05:12)
[2017-05-09 06:40] LABS: BASO # 0.1 K/uL (0.0-0.2); BASO % 0.4 % (0.0-2.0); EOS # 0.4 K/uL (0.0-0.7); EOS % 3.3 % (0.0-4.0); HEMOGLOBIN 8.5 g/dL (11.0-16.0); LYMPH # 2.4 K/uL (1.0-4.3); LYMPH % 19.3 % (20.0-40.0); MEAN CELL VOLUME 85.8 fL (81.0-99.0); MEAN CORPUSCULAR HEMOGLOBIN 28.6 pg (27.0-31.0); MEAN CORPUSCULAR HGB CONC 33.3 g/dL (33.0-37.0); MEAN PLATELET VOLUME 9.9 fL (7.2-11.7); MONO % 7.7 % (0.0-10.0); NEUT # 8.7 K/uL (1.8-7.0); NEUT % 69.3 % (50.0-75.0); RBC 2.96 Mil/uL (3.80-5.20); RED CELL DISTRIBUTION WIDTH 15.2 % (11.5-14.5); WHITE BLOOD COUNT 12.6 K/uL (4.8-10.8)
[2017-05-09 07:06] LABS: ALB/GLOB RATIO 0.9 (1.0-2.1); ALBUMIN 3.1 g/dL (3.5-5.0); ALT/SGPT 65 U/L (9-52); AST/SGOT 45 U/L (14-36); BLOOD UREA NITROGEN 5 mg/dL (7-17); CALCIUM 8.8 mg/dl (8.6-10.4); GFR AFRICAN-AMERICAN > 60; GFR NON-AFRICAN AMERICAN > 60
[2017-05-09] MEDS: Acetaminophen 650mg/20.3ml solution UD PO PRN ×2 (08:21→12:31)
[2017-05-09] MEDS: Magnesium Sulfate 1 gm in D5W 1 GM/100 ML BAG IVPB SCH ×4 (08:50→12:47)
[2017-05-09] MEDS: Multiple Vitamins Oral Solution PO SCH (09:06)
[2017-05-09] MEDS: levETIRAcetam 500 MG in Sodium Chloride 0.9% 100 ML IVPB SCH ×2 (10:46→21:54)
[2017-05-09] MEDS: Linezolid 600 mg in D5W 300 ml 600 MG/300 ML BAG IVPB SCH ×2 (11:24→21:54)
--- NOTE | 2017-05-09 11:29 | CP.CCUPN ---
CCU Subjective - Physician Review Subjective (Free Text): 05/09/17 11:09 Patient seen and exmained at bedside OOB to chair One episode of vomiting overnight with small residual NGT Stopped tube feeds will talk to surgery to put J tube back in CCU Objective - Vital Signs / Intake & Output Vital Signs (Last 4 hours): Vital Signs Temp Pulse Resp BP Pulse Ox 05/09/17 10:00 104 H 16 109/78 100 05/09/17 09:06 110/76 05/09/17 09:00 137 H 16 110/70 100 05/09/17 08:58 139 H 16 110/76 05/09/17 08:13 134 H 14 117/86 100 05/09/17 08:11 134 H 17 100 05/09/17 08:00 100.6 F H 137 H 13 117/86 96 05/09/17 07:21 127 H 15 109/84 100 Intake and Output (Last 8hrs): Intake & Output 05/08/17 05/09/17 05/09/17 22:59 06:59 14:59 Intake Total 970 480 610 Output Total 170 200 Balance 800 280 610 Weight 117 lb 4.575 oz Intake: Intake, IV Amount 760 360 520 Left PICC 760 360 320 Left PICC #2 200 Tube Feeding 160 120 0 Other 50 90 Output: Drainage 20 Right Lower Abdomen 20 Urine 150 200 Urine, Voided 150 200 Other: # Voids Urine, Voided 0 0 # Bowel Movements 0 0 0 - Physical Exam Head: Positive for: Atraumatic, Normocephalic. Negative for: Tenderness Pupils: Positive for: PERRL Extroacular Muscles: Positive for: EOMI Mouth: Positive for: Moist Mucous Membranes. Negative for: Dry, Drooling Nose (External): Positive for: Other (NGT in place) Nose (Internal): Positive for: Normal Inspection, Moist Neck: Positive for: Other (trach). Negative for: JVD, Lymphadenopathy Respiratory/Chest: Positive for: Clear to Auscultation. Negative for: Respiratory Distress, Accessory Muscle Use Cardiovascular: Positive for: Regular Rate and Rhythm, Normal S1, S2 Abdomen: Positive for: Tenderness (mild tenderness of palpation. patient continues to move her arms towards hands on palpation), Normal Bowel Sounds. Negative for: Distention, Peritoneal Signs, Guarding Upper Extremity: Positive for: Normal Inspection, Normal ROM, Capillary Refill < 2s. Negative for: Edema Lower Extremity: Positive for: Normal Inspection. Negative for: Edema Neurological: Positive for: CN II-XII Intact Skin: Positive for: Warm, Pale Psychiatric: Positive for: Alert - Medications Active Medications: Active Medications Generic Name Dose Route Start Last Admin Trade Name Freq PRN Reason Stop Dose Admin Acetaminophen 650 mg 04/28/17 20:11 05/09/17 08:21 Tylenol 650mg/20.3ml Solution Ud PO 650 mg Q4 PRN Administration Temperature Bisacodyl 10 mg 05/07/17 13:35 05/08/17 06:02 Dulcolax [place] 10 mg Q24H PRN Administration Constipation Heparin Sodium (Porcine) 5,000 units 05/06/17 22:00 05/09/17 05:13 Heparin SC 5,000 units Q8 [facility] Administration Cefepime HCl 1 gm/ Dextrose 50 mls @ 100 mls/hr 05/03/17 10:00 05/09/17 10:48 IVPB 100 mls/hr DAILY [facility] Administration Levetiracetam 500 mg/ Sodium 105 mls @ 420 mls/hr 05/03/17 22:00 05/09/17 10: 46 Chloride IVPB 420 mls/hr Q12H [facility] Administration Linezolid 600 mg in 300 mls @ 200 mls/hr 05/04/17 22:00 05/08/17 21:35 Zyvox 600mg/300ml D5w IVPB 200 mls/hr Q12 [facility] Administration Potassium Chloride/Dextrose/Sod Cl 1,000 mls @ 60 mls/hr 05/05/17 00:30 05/09 04:30 Potassium Chl 20 Meq In D5-1/2ns IV Not Given .[id number] [facility] Lorazepam 0.5 mg 05/05/17 12:00 05/09/17 05:13 Ativan IVP 0.5 mg Q6H PRN Administration Anxiety Metoprolol Tartrate 5 mg 05/06/17 10:27 05/09/17 05:12 Lopressor IVP 5 mg Q6H PRN Administration Systolic Blood Pressure Metoprolol Tartrate 75 mg 05/06/17 14:35 05/09/17 09:06 Lopressor PO 75 mg BID [facility] Administration Multivitamins/Vitamin C 5 ml 04/30/17 12:00 05/09/17 09:06 Multi-Delyn Liquid PO 5 ml DAILY [facility] Administration Pantoprazole Sodium 20 mg 04/19/17 18:00 05/09/17 09:05 Protonix Inj IVP 20 mg BID [facility] Administration Quetiapine Fumarate 100 mg 05/07/17 10:17 Seroquel PO BID [facility] - Patient Studies Lab Studies: Lab Studies 05/09/17 05/09/17 05/09/17 Range/Units 06:25 06:23 05:35 WBC 12.6 H (4.8-10.8) K/uL RBC 2.96 L (3.80-5.20) Mil/uL Hgb 8.5 L (11.0-16.0) g/dL Hct 25.4 L (34.0-47.0) % MCV 85.8 (81.0-99.0) fL MCH 28.6 (27.0-31.0) pg MCHC 33.3 (33.0-37.0) g/dL RDW 15.2 H (11.5-14.5) % Plt Count 409 H (130-400) K/uL MPV 9.9 (7.2-11.7) fL Neut % (Auto) 69.3 (50.0-75.0) % Lymph % (Auto) 19.3 L (20.0-40.0) % Rabun % (Auto) 7.7 (0.0-10.0) % Eos % (Auto) 3.3 (0.0-4.0) % Baso % (Auto) 0.4 (0.0-2.0) % Neut # 8.7 H (1.8-7.0) K/uL Lymph # 2.4 (1.0-4.3) K/uL Rabun # 1.0 H (0.0-0.8) K/uL Eos # 0.4 (0.0-0.7) K/uL Baso # 0.1 (0.0-0.2) K/uL Sodium 133 (132-148) mmol/L Potassium 3.5 L (3.6-5.2) mmol/L Chloride 101 (98-107) mmol/L Carbon Dioxide 24 (22-30) mmol/L Anion Gap 12 (10-20) BUN 5 L (7-17) mg/dL Creatinine 0.7 (0.7-1.2) mg/dL Est GFR ( Amer) > 60 Est GFR (Non-Af Amer) > 60 POC Glucose (mg/dL) 103 (65-110) mg/dL Random Glucose 108 H (65-105) mg/dL Calcium 8.8 (8.6-10.4) mg/dl Phosphorus 3.4 (2.5-4.5) mg/dL Magnesium 1.2 L (1.6-2.3) mg/dL Total Bilirubin 0.6 (0.2-1.3) mg/dL AST 45 H D (14-36) U/L ALT 65 H (9-52) U/L Alkaline Phosphatase 337 H (38-126) U/L Total Protein 6.5 (6.3-8.3) g/dL Albumin 3.1 L (3.5-5.0) g/dL Globulin 3.4 (2.2-3.9) gm/dL Albumin/Globulin Ratio 0.9 L (1.0-2.1) 05/09/17 05/08/17 05/08/17 Range/Units 00:00 17:45 12:03 WBC (4.8-10.8) K/uL RBC (3.80-5.20) Mil/uL Hgb (11.0-16.0) g/dL Hct (34.0-47.0) % MCV (81.0-99.0) fL MCH (27.0-31.0) pg MCHC (33.0-37.0) g/dL RDW (11.5-14.5) % Plt Count (130-400) K/uL MPV (7.2-11.7) fL Neut % (Auto) (50.0-75.0) % Lymph % (Auto) (20.0-40.0) % Rabun % (Auto) (0.0-10.0) % Eos % (Auto) (0.0-4.0) % Baso % (Auto) (0.0-2.0) % Neut # (1.8-7.0) K/uL Lymph # (1.0-4.3) K/uL Rabun # (0.0-0.8) K/uL Eos # (0.0-0.7) K/uL Baso # (0.0-0.2) K/uL Sodium (132-148) mmol/L Potassium (3.6-5.2) mmol/L Chloride (98-107) mmol/L Carbon Dioxide (22-30) mmol/L Anion Gap (10-20) BUN (7-17) mg/dL Creatinine (0.7-1.2) mg/dL Est GFR ( Amer) Est GFR (Non-Af Amer) POC Glucose (mg/dL) 99 118 H 107 (65-110) mg/dL Random Glucose (65-105) mg/dL Calcium (8.6-10.4) mg/dl Phosphorus (2.5-4.5) mg/dL Magnesium (1.6-2.3) mg/dL Total Bilirubin (0.2-1.3) mg/dL AST (14-36) U/L ALT (9-52) U/L Alkaline Phosphatase (38-126) U/L Total Protein (6.3-8.3) g/dL Albumin (3.5-5.0) g/dL Globulin (2.2-3.9) gm/dL Albumin/Globulin Ratio (1.0-2.1) Laboratory Results - last 24 hr 05/08/17 05/08/17 05/09/17 12:03 17:45 00:00 WBC RBC Hgb Hct MCV MCH MCHC RDW Plt Count MPV Neut % (Auto) Lymph % (Auto) Rabun % (Auto) Eos % (Auto) Baso % (Auto) Neut # Lymph # Rabun # Eos # Baso # Sodium Potassium Chloride Carbon Dioxide Anion Gap BUN Creatinine Est GFR ( Amer) Est GFR (Non-Af Amer) POC Glucose (mg/dL) 107 118 H 99 Random Glucose Calcium Phosphorus Magnesium Total Bilirubin AST ALT Alkaline Phosphatase Total Protein Albumin Globulin Albumin/Globulin Ratio 05/09/17 05/09/17 05/09/17 05:35 06:23 06:25 WBC 12.6 H RBC 2.96 L Hgb 8.5 L Hct 25.4 L MCV 85.8 MCH 28.6 MCHC 33.3 RDW 15.2 H Plt Count 409 H MPV 9.9 Neut % (Auto) 69.3 Lymph % (Auto) 19.3 L Rabun % (Auto) 7.7 Eos % (Auto) 3.3 Baso % (Auto) 0.4 Neut # 8.7 H Lymph # 2.4 Rabun # 1.0 H Eos # 0.4 Baso # 0.1 Sodium 133 Potassium 3.5 L Chloride 101 Carbon Dioxide 24 Anion Gap 12 BUN 5 L Creatinine 0.7 Est GFR ( Amer) > 60 Est GFR (Non-Af Amer) > 60 POC Glucose (mg/dL) 103 Random Glucose 108 H Calcium 8.8 Phosphorus 3.4 Magnesium 1.2 L Total Bilirubin 0.6 AST 45 H D ALT 65 H Alkaline Phosphatase 337 H Total Protein 6.5 Albumin 3.1 L Globulin 3.4 Albumin/Globulin Ratio 0.9 L Fingerstick Blood Sugar Results: 118 Assessment/Plan - Assessment and Plan (Free Text) Assessment: 36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 Plan: Psych: Hx of schizophrenia, on seroquel Neuro: Seizure history, keppra Cards: persistent tachy, Lopressor 75 BID, Lopressor 5 IV PRN Pulm: Trach, PRVC, previously tolerated CPAP. Trial tomorrow GI: Hold tube feeds 2/2 to vomit, will consult with surgery for putting Jtube back in. TPN in meantime Renal: Gram + cocci in urine, Cefepime, linezolid PPx: multivitamin heparin, protonix
--- NOTE | 2017-05-09 11:30 | CP.PCM.PN ---
Subjective - Date & Time of Evaluation Date of Evaluation: 05/09/17 Time of Evaluation: 11:27 - Subjective Subjective: Remains with trach, vented UO not fully recorded but renal function stable K, mag low Tolerating GT feeds lethargic Objective - Vital Signs/Intake and Output Vital Signs (last 24 hours): Temp Pulse Resp BP Pulse Ox 100.6 F H 104 H 16 109/78 100 05/09/17 08:00 05/09/17 10:00 05/09/17 10:00 05/09/17 10:00 05/09/17 10:00 Intake and Output: 05/09/17 05/09/17 06:59 18:59 Intake Total 1080 610 Output Total 200 Balance 880 610 - Medications Medications: Current Medications Acetaminophen (Tylenol 650mg/20.3ml Solution Ud) 650 mg PO Q4 PRN PRN Reason: Temperature Last Admin: 05/09/17 08:21 Dose: 650 mg Bisacodyl (Dulcolax) 10 mg MS Q24H PRN PRN Reason: Constipation Last Admin: 05/08/17 06:02 Dose: 10 mg Heparin Sodium (Porcine) (Heparin) 5,000 units SC Q8 [facility] Last Admin: 05/09/17 05:13 Dose: 5,000 units Cefepime HCl 1 gm/ Dextrose 50 mls @ 100 mls/hr IVPB DAILY [facility] Last Admin: 05/09/17 10:48 Dose: 100 mls/hr Levetiracetam 500 mg/ Sodium (Chloride) 105 mls @ 420 mls/hr IVPB Q12H [facility] Last Admin: 05/09/17 10:46 Dose: 420 mls/hr Linezolid (Zyvox 600mg/300ml D5w) 600 mg in 300 mls @ 200 mls/hr IVPB Q12 [facility] Last Admin: 05/08/17 21:35 Dose: 200 mls/hr Potassium Chloride/Dextrose/Sod Cl (Potassium Chl 20 Meq In D5-1/2ns) 1,000 mls @ 60 mls/hr IV .[id number] [facility] Last Admin: 05/09/17 04:30 Dose: Not Given Lorazepam (Ativan) 0.5 mg IVP Q6H PRN PRN Reason: Anxiety Last Admin: 05/09/17 05:13 Dose: 0.5 mg Metoprolol Tartrate (Lopressor) 5 mg IVP Q6H PRN PRN Reason: Systolic Blood Pressure Last Admin: 05/09/17 05:12 Dose: 5 mg Metoprolol Tartrate (Lopressor) 75 mg PO BID [facility] Last Admin: 05/09/17 09:06 Dose: 75 mg Multivitamins/Vitamin C (Multi-Delyn Liquid) 5 ml PO DAILY [facility] Last Admin: 05/09/17 09:06 Dose: 5 ml Pantoprazole Sodium (Protonix Inj) 20 mg IVP BID [facility] Last Admin: 05/09/17 09:05 Dose: 20 mg Quetiapine Fumarate (Seroquel) 100 mg PO BID [facility] - Labs Labs: 05/09/17 06:25 05/09/17 06:23 PT 14.0 SECONDS (9.7-12.2) H 04/25/17 06:25 INR 1.2 04/25/17 06:25 APTT 32 SECONDS (21-34) 04/25/17 06:25 - Constitutional Appears: No Acute Distress, Chronically Ill - Head Exam Head Exam: ATRAUMATIC, NORMAL INSPECTION - Eye Exam Eye Exam: EOMI, Normal appearance - Neck Exam Neck Exam: Normal Inspection. absent: Tenderness - Respiratory Exam Respiratory Exam: Clear to Ausculation Bilateral, Respiratory Distress - Cardiovascular Exam Cardiovascular Exam: Tachycardia, +S1 - GI/Abdominal Exam GI & Abdominal Exam: Soft. absent: Tenderness - Extremities Exam Extremities Exam: Normal Inspection. absent: Tenderness - Neurological Exam Neurological Exam: Awake, CN II-XII Intact - Skin Skin Exam: Dry, Warm Assessment and Plan (1) JIMBO (acute kidney injury) Status: Resolved (2) Acute pancreatitis Status: Acute (3) SBO (small bowel obstruction) Status: Acute (4) Schizophrenia Status: Acute - Assessment and Plan (Free Text) Plan: Replete mag, K Increase feeds as tolerated
[2017-05-09] MEDS ORDERED: TPN #1 IV SCH ×2 (12:00→18:00)
--- NOTE | 2017-05-09 12:45 | CP.PCM.PN ---
Subjective - Date & Time of Evaluation Date of Evaluation: 05/09/17 Time of Evaluation: 12:42 - Subjective Subjective: Ms. Rivera was seen and examined at the bedside in ICU. She is awake, but non - verbal. She has the trach connected to the mechanical ventilator. She does not follow commands. She moves all her extremities spontaneously. She remains with bilateral hand mitten for patient safety. There was no untoward events overnight. Objective - Vital Signs/Intake and Output Vital Signs (last 24 hours): Temp Pulse Resp BP Pulse Ox 100.6 F H 103 H 16 98/60 L 100 05/09/17 12:00 05/09/17 12:00 05/09/17 12:00 05/09/17 11:58 05/09/17 12:00 Intake and Output: 05/09/17 05/09/17 06:59 18:59 Intake Total 1080 960 Output Total 200 Balance 880 960 - Medications Medications: Current Medications Acetaminophen (Tylenol 650mg/20.3ml Solution Ud) 650 mg PO Q4 PRN PRN Reason: Temperature Last Admin: 05/09/17 12:31 Dose: 650 mg Bisacodyl (Dulcolax) 10 mg ID Q24H PRN PRN Reason: Constipation Last Admin: 05/08/17 06:02 Dose: 10 mg Heparin Sodium (Porcine) (Heparin) 5,000 units SC Q8 [facility] Last Admin: 05/09/17 05:13 Dose: 5,000 units Cefepime HCl 1 gm/ Dextrose 50 mls @ 100 mls/hr IVPB DAILY [facility] Last Admin: 05/09/17 10:48 Dose: 100 mls/hr Levetiracetam 500 mg/ Sodium (Chloride) 105 mls @ 420 mls/hr IVPB Q12H [facility] Last Admin: 05/09/17 10:46 Dose: 420 mls/hr Linezolid (Zyvox 600mg/300ml D5w) 600 mg in 300 mls @ 200 mls/hr IVPB Q12 [facility] Last Admin: 05/09/17 11:24 Dose: 200 mls/hr Multivitamins/Vitamin C 10 ml/Insulin Human Regular 10 unit / Heparin Sodium ( Porcine) 1, 000 units/ Amino Acids/Electrolytes/Dextrose 1,010.3 mls @ 42 mls/ hr IV .Q24H [facility] Fat Emulsion Intravenous (Intralipid 20%) 500 mls @ 42 mls/hr IV ONCE ONE Stop: 05/10/17 05:54 Lorazepam (Ativan) 0.5 mg IVP Q6H PRN PRN Reason: Anxiety Last Admin: 05/09/17 05:13 Dose: 0.5 mg Metoprolol Tartrate (Lopressor) 5 mg IVP Q6H PRN PRN Reason: Systolic Blood Pressure Last Admin: 05/09/17 05:12 Dose: 5 mg Metoprolol Tartrate (Lopressor) 75 mg PO BID [facility] Last Admin: 05/09/17 09:06 Dose: 75 mg Multivitamins/Vitamin C (Multi-Delyn Liquid) 5 ml PO DAILY [facility] Last Admin: 05/09/17 09:06 Dose: 5 ml Pantoprazole Sodium (Protonix Inj) 20 mg IVP BID [facility] Last Admin: 05/09/17 09:05 Dose: 20 mg Quetiapine Fumarate (Seroquel) 100 mg PO BID [facility] - Labs Labs: 05/09/17 06:25 05/09/17 06:23 PT 14.0 SECONDS (9.7-12.2) H 04/25/17 06:25 INR 1.2 04/25/17 06:25 APTT 32 SECONDS (21-34) 04/25/17 06:25 - Constitutional Appears: No Acute Distress - Head Exam Head Exam: NORMAL INSPECTION - Neurological Exam Neurological Exam: Awake Neuro motor strength exam: Left Upper Extremity: 4, Right Upper Extremity: 4, Left Lower Extremity: 4, Right Lower Extremity: 4 Additional comments: Neurological unchanged from previous examination. Assessment and Plan (1) Focal seizure Assessment & Plan: Case discussed with Dr. Sebastian, continue all current medical regimen. There is no new recommendations from neurology. Status: Acute
--- NOTE | 2017-05-09 15:22 | CP.PCM.PN ---
Subjective - Date & Time of Evaluation Date of Evaluation: 05/09/17 Time of Evaluation: 07:25 - Subjective Subjective: General surgery progress note for Dr. Mendez Patient seen and examined at bedside. No acute event overnight. Patient is awake , nonverbal. Patient has tracheostomy. She is on ventilator support PRVC FiO2 40 %, PEEP 5, RR 16, TV 450. Tolerating tube feeds. ROS unobtainable. Objective - Vital Signs/Intake and Output Vital Signs (last 24 hours): Temp Pulse Resp BP Pulse Ox 100.6 F H 125 H 17 102/66 94 L 05/09/17 12:00 05/09/17 15:00 05/09/17 15:00 05/09/17 14:58 05/09/17 15:00 Intake and Output: 05/09/17 05/09/17 06:59 18:59 Intake Total 1080 1300 Output Total 200 Balance 880 1300 - Medications Medications: Current Medications Acetaminophen (Tylenol 650mg/20.3ml Solution Ud) 650 mg PO Q4 PRN PRN Reason: Temperature Last Admin: 05/09/17 12:31 Dose: 650 mg Bisacodyl (Dulcolax) 10 mg SC Q24H PRN PRN Reason: Constipation Last Admin: 05/08/17 06:02 Dose: 10 mg Heparin Sodium (Porcine) (Heparin) 5,000 units SC Q8 [facility] Last Admin: 05/09/17 13:32 Dose: 5,000 units Cefepime HCl 1 gm/ Dextrose 50 mls @ 100 mls/hr IVPB DAILY [facility] Last Admin: 05/09/17 10:48 Dose: 100 mls/hr Levetiracetam 500 mg/ Sodium (Chloride) 105 mls @ 420 mls/hr IVPB Q12H [facility] Last Admin: 05/09/17 10:46 Dose: 420 mls/hr Linezolid (Zyvox 600mg/300ml D5w) 600 mg in 300 mls @ 200 mls/hr IVPB Q12 [facility] Last Admin: 05/09/17 11:24 Dose: 200 mls/hr Multivitamins/Vitamin C 10 ml/Insulin Human Regular 10 unit / Heparin Sodium ( Porcine) 1, 000 units/ Amino Acids/Electrolytes/Dextrose 1,010.3 mls @ 42 mls/ hr IV .Q24H [facility] Fat Emulsion Intravenous (Intralipid 20%) 500 mls @ 42 mls/hr IV ONCE ONE Stop: 05/10/17 05:54 Lorazepam (Ativan) 0.5 mg IVP Q6H PRN PRN Reason: Anxiety Last Admin: 05/09/17 05:13 Dose: 0.5 mg Metoprolol Tartrate (Lopressor) 5 mg IVP Q6H PRN PRN Reason: Systolic Blood Pressure Last Admin: 05/09/17 05:12 Dose: 5 mg Metoprolol Tartrate (Lopressor) 75 mg PO BID [facility] Last Admin: 05/09/17 09:06 Dose: 75 mg Multivitamins/Vitamin C (Multi-Delyn Liquid) 5 ml PO DAILY [facility] Last Admin: 05/09/17 09:06 Dose: 5 ml Pantoprazole Sodium (Protonix Inj) 20 mg IVP BID [facility] Last Admin: 05/09/17 09:05 Dose: 20 mg Quetiapine Fumarate (Seroquel) 100 mg PO BID [facility] - Labs Labs: 05/09/17 06:25 05/09/17 06:23 PT 14.0 SECONDS (9.7-12.2) H 04/25/17 06:25 INR 1.2 04/25/17 06:25 APTT 32 SECONDS (21-34) 04/25/17 06:25 - Constitutional Appears: No Acute Distress - Head Exam Head Exam: ATRAUMATIC, NORMOCEPHALIC - Eye Exam Eye Exam: Normal appearance - Respiratory Exam Respiratory Exam: NORMAL BREATHING PATTERN - Cardiovascular Exam Cardiovascular Exam: Tachycardia - GI/Abdominal Exam GI & Abdominal Exam: Soft. absent: Distended, Tenderness Additional comments: jejunostomy pink and patent midline incision clean dry and intact - Neurological Exam Neurological Exam: Alert, Awake - Psychiatric Exam Psychiatric exam: Flat Affect - Skin Skin Exam: Dry, Intact, Normal Color, Warm Assessment and Plan - Assessment and Plan (Free Text) Plan: 36F s/p gastrojejunostomy w/ bypass and feeding jejunostomy POD#21 Feeding via NGT Monitor for emesis Anti-emetics PRN Management as per ICU Discuss with Dr. Andrea Wells PGY1
[2017-05-09] MEDS ORDERED: Fat Emulsion 20% IV 500 ML IV ONE (18:00)
[2017-05-10] MEDS: Metoprolol 1 mg/ml Inj IVP PRN ×2 (02:28→23:11)
[2017-05-10 06:31] LABS: BASO # 0.2 K/uL (0.0-0.2); BASO % 1.4 % (0.0-2.0); EOS # 0.4 K/uL (0.0-0.7); EOS % 2.6 % (0.0-4.0); HEMOGLOBIN 8.5 g/dL (11.0-16.0); LYMPH # 2.6 K/uL (1.0-4.3); LYMPH % 15.8 % (20.0-40.0); MEAN CELL VOLUME 84.9 fL (81.0-99.0); MEAN CORPUSCULAR HEMOGLOBIN 29.1 pg (27.0-31.0); MEAN CORPUSCULAR HGB CONC 34.3 g/dL (33.0-37.0); MEAN PLATELET VOLUME 9.5 fL (7.2-11.7); MONO # 1.3 K/uL (0.0-0.8); NEUT % 72.2 % (50.0-75.0); RBC 2.93 Mil/uL (3.80-5.20); RED CELL DISTRIBUTION WIDTH 14.9 % (11.5-14.5); WHITE BLOOD COUNT 16.6 K/uL (4.8-10.8)
[2017-05-10 06:45] LABS: ALBUMIN 3.1 g/dL (3.5-5.0); ALT/SGPT 59 U/L (9-52); AST/SGOT 35 U/L (14-36); BLOOD UREA NITROGEN 8 mg/dL (7-17); CALCIUM 8.8 mg/dl (8.6-10.4); GFR AFRICAN-AMERICAN > 60; GFR NON-AFRICAN AMERICAN > 60
--- NOTE | 2017-05-10 07:58 | CP.CCUPN ---
<[email or web address] - Last Filed: 05/10/17 11:18> CCU Subjective - Physician Review Subjective (Free Text): 05/10/17 07:55 patient seen and examined at bedside doing well J tube placed back in last night TPN now, will consider changing to feeds thru J tube CCU Objective - Vital Signs / Intake & Output Vital Signs (Last 4 hours): Vital Signs Temp Pulse Resp BP Pulse Ox 05/10/17 07:00 125 H 15 100 05/10/17 06:58 108/75 05/10/17 06:00 117 H 16 100 05/10/17 05:58 107/77 05/10/17 05:10 117 H 16 97/73 L 100 05/10/17 05:00 112 H 16 100 05/10/17 04:58 90/64 L 05/10/17 04:00 99 F 114 H 11 L 112/78 99 05/10/17 03:58 112/78 Intake and Output (Last 8hrs): Intake & Output 05/09/17 05/10/17 05/10/17 22:59 06:59 14:59 Intake Total 640 972 84 Output Total 1080 430 Balance -440 542 84 Weight 119 lb 2 oz Intake: Intake, IV Amount 640 972 84 Left Distal Port PICC 210 336 42 Left PICC 120 Left PICC Proximal Port 210 336 42 Right Hand 100 300 Output: Drainage 80 30 Right Lower Abdomen 80 30 Urine 1000 400 Urine, Voided 1000 400 Other: # Bowel Movements 0 0 - Physical Exam Head: Positive for: Atraumatic, Normocephalic. Negative for: Tenderness Pupils: Positive for: PERRL Extroacular Muscles: Positive for: EOMI Mouth: Positive for: Moist Mucous Membranes. Negative for: Dry, Drooling Nose (External): Positive for: Other (NGT in place) Nose (Internal): Positive for: Normal Inspection, Moist Neck: Positive for: Other (trach). Negative for: JVD, Lymphadenopathy Respiratory/Chest: Positive for: Clear to Auscultation. Negative for: Respiratory Distress, Accessory Muscle Use Cardiovascular: Positive for: Regular Rate and Rhythm, Normal S1, S2 Abdomen: Positive for: Tenderness (mild tenderness of palpation. patient continues to move her arms towards hands on palpation), Normal Bowel Sounds. Negative for: Distention, Peritoneal Signs, Guarding Upper Extremity: Positive for: Normal Inspection, Normal ROM, Capillary Refill < 2s. Negative for: Edema Lower Extremity: Positive for: Normal Inspection. Negative for: Edema Neurological: Positive for: CN II-XII Intact Skin: Positive for: Warm, Pale Psychiatric: Positive for: Alert - Medications Active Medications: Active Medications Generic Name Dose Route Start Last Admin Trade Name Freq PRN Reason Stop Dose Admin Acetaminophen 650 mg 04/28/17 20:11 05/09/17 12:31 Tylenol 650mg/20.3ml Solution Ud PO 650 mg Q4 PRN Administration Temperature Bisacodyl 10 mg 05/07/17 13:35 05/08/17 06:02 Dulcolax MO 10 mg Q24H PRN Administration Constipation Cefepime HCl 1 gm/ Dextrose 50 mls @ 100 mls/hr 05/03/17 10:00 05/09/17 10:48 IVPB 100 mls/hr DAILY [facility] Administration Levetiracetam 500 mg/ Sodium 105 mls @ 420 mls/hr 05/03/17 22:00 05/09/17 21: 54 Chloride IVPB 420 mls/hr Q12H [facility] Administration Linezolid 600 mg in 300 mls @ 200 mls/hr 05/04/17 22:00 05/09/17 21:54 Zyvox 600mg/300ml D5w IVPB 200 mls/hr Q12 [facility] Administration Multivitamins/Vitamin C 10 ml/ 1,010.3 mls @ 42 mls/hr 05/09/17 18:00 17:47 Insulin Human Regular 10 unit IV 42 mls/hr / Heparin Sodium (Porcine) 1, .Q24H [facility] Administration 000 units/ Amino Acids/ Electrolytes/Dextrose Magnesium Sulfate/Dextrose 1 gm in 100 mls @ 200 mls/hr 05/10/17 07:21 Magnesium Sulfate 1 Gm/100 Ml D5w IVPB 05/10/17 07:50 ONCE ONE Lorazepam 0.5 mg 05/05/17 12:00 05/09/17 18:13 Ativan IVP 0.5 mg Q6H PRN Administration Anxiety Metoprolol Tartrate 5 mg 05/06/17 10:27 05/10/17 02:28 Lopressor IVP 5 mg Q6H PRN Administration Systolic Blood Pressure Metoprolol Tartrate 75 mg 05/06/17 14:35 05/09/17 17:44 Lopressor PO 75 mg BID [facility] Administration Multivitamins/Vitamin C 5 ml 04/30/17 12:00 05/09/17 09:06 Multi-Delyn Liquid PO 5 ml DAILY [facility] Administration Pantoprazole Sodium 20 mg 04/19/17 18:00 05/09/17 17:45 Protonix Inj IVP 20 mg BID [facility] Administration Quetiapine Fumarate 100 mg 05/07/17 10:17 Seroquel PO BID [facility] - Patient Studies Lab Studies: Lab Studies 05/10/17 05/10/17 05/10/17 Range/Units 06:25 06:23 04:57 WBC 16.6 H (4.8-10.8) K/uL RBC 2.93 L (3.80-5.20) Mil/uL Hgb 8.5 L (11.0-16.0) g/dL Hct 24.9 L (34.0-47.0) % MCV 84.9 (81.0-99.0) fL MCH 29.1 (27.0-31.0) pg MCHC 34.3 (33.0-37.0) g/dL RDW 14.9 H (11.5-14.5) % Plt Count 401 H (130-400) K/uL MPV 9.5 (7.2-11.7) fL Neut % (Auto) 72.2 (50.0-75.0) % Lymph % (Auto) 15.8 L (20.0-40.0) % Webb % (Auto) 8.0 (0.0-10.0) % Eos % (Auto) 2.6 (0.0-4.0) % Baso % (Auto) 1.4 (0.0-2.0) % Neut # 12.0 H (1.8-7.0) K/uL Lymph # 2.6 (1.0-4.3) K/uL Webb # 1.3 H (0.0-0.8) K/uL Eos # 0.4 (0.0-0.7) K/uL Baso # 0.2 (0.0-0.2) K/uL Sodium 130 L (132-148) mmol/L Potassium 3.9 (3.6-5.2) mmol/L Chloride 99 (98-107) mmol/L Carbon Dioxide 20 L (22-30) mmol/L Anion Gap 15 (10-20) BUN 8 (7-17) mg/dL Creatinine 0.7 (0.7-1.2) mg/dL Est GFR ( Amer) > 60 Est GFR (Non-Af Amer) > 60 POC Glucose (mg/dL) 115 H (65-110) mg/dL Random Glucose 111 H (65-105) mg/dL Calcium 8.8 (8.6-10.4) mg/dl Phosphorus 3.8 (2.5-4.5) mg/dL Magnesium 1.8 (1.6-2.3) mg/dL Total Bilirubin 0.5 (0.2-1.3) mg/dL AST 35 (14-36) U/L ALT 59 H (9-52) U/L Alkaline Phosphatase 330 H (38-126) U/L Total Protein 6.3 (6.3-8.3) g/dL Albumin 3.1 L (3.5-5.0) g/dL Globulin 3.2 (2.2-3.9) gm/dL Albumin/Globulin Ratio 1.0 (1.0-2.1) 05/09/17 05/09/17 05/09/17 Range/Units 23:49 17:41 12:05 WBC (4.8-10.8) K/uL RBC (3.80-5.20) Mil/uL Hgb (11.0-16.0) g/dL Hct (34.0-47.0) % MCV (81.0-99.0) fL MCH (27.0-31.0) pg MCHC (33.0-37.0) g/dL RDW (11.5-14.5) % Plt Count (130-400) K/uL MPV (7.2-11.7) fL Neut % (Auto) (50.0-75.0) % Lymph % (Auto) (20.0-40.0) % Webb % (Auto) (0.0-10.0) % Eos % (Auto) (0.0-4.0) % Baso % (Auto) (0.0-2.0) % Neut # (1.8-7.0) K/uL Lymph # (1.0-4.3) K/uL Webb # (0.0-0.8) K/uL Eos # (0.0-0.7) K/uL Baso # (0.0-0.2) K/uL Sodium (132-148) mmol/L Potassium (3.6-5.2) mmol/L Chloride (98-107) mmol/L Carbon Dioxide (22-30) mmol/L Anion Gap (10-20) BUN (7-17) mg/dL Creatinine (0.7-1.2) mg/dL Est GFR ( Amer) Est GFR (Non-Af Amer) POC Glucose (mg/dL) 104 105 121 H (65-110) mg/dL Random Glucose (65-105) mg/dL Calcium (8.6-10.4) mg/dl Phosphorus (2.5-4.5) mg/dL Magnesium (1.6-2.3) mg/dL Total Bilirubin (0.2-1.3) mg/dL AST (14-36) U/L ALT (9-52) U/L Alkaline Phosphatase (38-126) U/L Total Protein (6.3-8.3) g/dL Albumin (3.5-5.0) g/dL Globulin (2.2-3.9) gm/dL Albumin/Globulin Ratio (1.0-2.1) Laboratory Results - last 24 hr 05/09/17 05/09/17 05/09/17 12:05 17:41 23:49 WBC RBC Hgb Hct MCV MCH MCHC RDW Plt Count MPV Neut % (Auto) Lymph % (Auto) Webb % (Auto) Eos % (Auto) Baso % (Auto) Neut # Lymph # Webb # Eos # Baso # Sodium Potassium Chloride Carbon Dioxide Anion Gap BUN Creatinine Est GFR ( Amer) Est GFR (Non-Af Amer) POC Glucose (mg/dL) 121 H 105 104 Random Glucose Calcium Phosphorus Magnesium Total Bilirubin AST ALT Alkaline Phosphatase Total Protein Albumin Globulin Albumin/Globulin Ratio 05/10/17 05/10/17 05/10/17 04:57 06:23 06:25 WBC 16.6 H RBC 2.93 L Hgb 8.5 L Hct 24.9 L MCV 84.9 MCH 29.1 MCHC 34.3 RDW 14.9 H Plt Count 401 H MPV 9.5 Neut % (Auto) 72.2 Lymph % (Auto) 15.8 L Webb % (Auto) 8.0 Eos % (Auto) 2.6 Baso % (Auto) 1.4 Neut # 12.0 H Lymph # 2.6 Webb # 1.3 H Eos # 0.4 Baso # 0.2 Sodium 130 L Potassium 3.9 Chloride 99 Carbon Dioxide 20 L Anion Gap 15 BUN 8 Creatinine 0.7 Est GFR ( Amer) > 60 Est GFR (Non-Af Amer) > 60 POC Glucose (mg/dL) 115 H Random Glucose 111 H Calcium 8.8 Phosphorus 3.8 Magnesium 1.8 Total Bilirubin 0.5 AST 35 ALT 59 H Alkaline Phosphatase 330 H Total Protein 6.3 Albumin 3.1 L Globulin 3.2 Albumin/Globulin Ratio 1.0 Fingerstick Blood Sugar Results: 105 Assessment/Plan - Assessment and Plan (Free Text) Assessment: 36F s/p gastrojej for SMA syndrome, Jtube, persistent tachy, interval emesis Plan: Psych: Hx of schizophrenia, on seroquel Neuro: Seizure history, keppra Cards: persistent tachy, Lopressor 75 BID, Lopressor 5 IV PRN Pulm: Trach, PRVC, CPAP trial today GI: TPN running, will start tube feeds thru Jtube today Renal: Gram + cocci in urine, Cefepime, linezolid PPx: multivitamin heparin, protonix <Jose Hernandez S - Last Filed: 05/10/17 17:55> CCU Objective - Vital Signs / Intake & Output Vital Signs (Last 4 hours): Vital Signs Temp Pulse Resp BP Pulse Ox 05/10/17 17:26 107/74 05/10/17 17:00 122 H 15 100 05/10/17 16:58 121 H 19 107/74 88 L 05/10/17 16:00 97.8 F 118 H 20 100 05/10/17 15:58 125 H 15 116/73 100 05/10/17 15:00 113 H 15 100 05/10/17 14:58 113 H 18 115/77 100 05/10/17 14:00 113 H 18 100 05/10/17 13:58 112 H 15 112/86 99 Intake and Output (Last 8hrs): Intake & Output 05/10/17 05/10/17 05/10/17 06:59 14:59 22:59 Intake Total 972 832 40 Output Total 430 Balance 542 832 40 Weight 119 lb 2 oz Intake: Intake, IV Amount 972 802 Left Distal Port PICC 336 292 Left PICC Proximal Port 336 210 Right Hand 300 300 Tube Feeding 30 40 Output: Drainage 30 Right Lower Abdomen 30 Urine 400 Urine, Voided 400 Other: # Bowel Movements 0 - Medications Active Medications: Active Medications Generic Name Dose Route Start Last Admin Trade Name Freq PRN Reason Stop Dose Admin Acetaminophen 650 mg 04/28/17 20:11 05/09/17 12:31 Tylenol 650mg/20.3ml Solution Ud PO 650 mg Q4 PRN Administration Temperature Bisacodyl 10 mg 05/07/17 13:35 05/08/17 06:02 Dulcolax MO 10 mg Q24H PRN Administration Constipation Heparin Sodium (Porcine) 5,000 units 05/10/17 14:00 05/10/17 14:08 Heparin SC 5,000 units Q8 [facility] Administration Cefepime HCl 1 gm/ Dextrose 50 mls @ 100 mls/hr 05/03/17 10:00 05/10/17 09:21 IVPB 100 mls/hr DAILY [facility] Administration Levetiracetam 500 mg/ Sodium 105 mls @ 420 mls/hr 05/03/17 22:00 05/10/17 09: 14 Chloride IVPB 420 mls/hr Q12H [facility] Administration Linezolid 600 mg in 300 mls @ 200 mls/hr 05/04/17 22:00 05/10/17 09:59 Zyvox 600mg/300ml D5w IVPB 200 mls/hr Q12 [facility] Administration Multivitamins/Vitamin C 10 ml/ 1,010.3 mls @ 42 mls/hr 05/09/17 18:00 17:47 Insulin Human Regular 10 unit IV 42 mls/hr / Heparin Sodium (Porcine) 1, .Q24H [facility] Administration 000 units/ Amino Acids/ Electrolytes/Dextrose Lorazepam 0.5 mg 05/05/17 12:00 05/09/17 18:13 Ativan IVP 0.5 mg Q6H PRN Administration Anxiety Metoprolol Tartrate 5 mg 05/06/17 10:27 05/10/17 02:28 Lopressor IVP 5 mg Q6H PRN Administration Systolic Blood Pressure Metoprolol Tartrate 75 mg 05/06/17 14:35 05/10/17 17:26 Lopressor PO 75 mg BID [facility] Administration Multivitamins/Vitamin C 5 ml 04/30/17 12:00 05/10/17 09:19 Multi-Delyn Liquid PO 5 ml DAILY [facility] Administration Pantoprazole Sodium 20 mg 04/19/17 18:00 05/10/17 17:27 Protonix Inj IVP 20 mg BID [facility] Administration Quetiapine Fumarate 100 mg 05/07/17 10:17 Seroquel PO BID [facility] - Patient Studies Lab Studies: Microbiology Studies 04/25/17 12:02 Blood Fungal Culture - Preliminary Other: Please Indicate Lab Studies 05/10/17 05/10/17 05/10/17 Range/Units 11:27 06:25 06:23 WBC 16.6 H (4.8-10.8) K/uL RBC 2.93 L (3.80-5.20) Mil/uL Hgb 8.5 L (11.0-16.0) g/dL Hct 24.9 L (34.0-47.0) % MCV 84.9 (81.0-99.0) fL MCH 29.1 (27.0-31.0) pg MCHC 34.3 (33.0-37.0) g/dL RDW 14.9 H (11.5-14.5) % Plt Count 401 H (130-400) K/uL MPV 9.5 (7.2-11.7) fL Neut % (Auto) 72.2 (50.0-75.0) % Lymph % (Auto) 15.8 L (20.0-40.0) % Webb % (Auto) 8.0 (0.0-10.0) % Eos % (Auto) 2.6 (0.0-4.0) % Baso % (Auto) 1.4 (0.0-2.0) % Neut # 12.0 H (1.8-7.0) K/uL Lymph # 2.6 (1.0-4.3) K/uL Webb # 1.3 H (0.0-0.8) K/uL Eos # 0.4 (0.0-0.7) K/uL Baso # 0.2 (0.0-0.2) K/uL Sodium 130 L (132-148) mmol/L Potassium 3.9 (3.6-5.2) mmol/L Chloride 99 (98-107) mmol/L Carbon Dioxide 20 L (22-30) mmol/L Anion Gap 15 (10-20) BUN 8 (7-17) mg/dL Creatinine 0.7 (0.7-1.2) mg/dL Est GFR ( Amer) > 60 Est GFR (Non-Af Amer) > 60 POC Glucose (mg/dL) 120 H (65-110) mg/dL Random Glucose 111 H (65-105) mg/dL Calcium 8.8 (8.6-10.4) mg/dl Phosphorus 3.8 (2.5-4.5) mg/dL Magnesium 1.8 (1.6-2.3) mg/dL Total Bilirubin 0.5 (0.2-1.3) mg/dL AST 35 (14-36) U/L ALT 59 H (9-52) U/L Alkaline Phosphatase 330 H (38-126) U/L Total Protein 6.3 (6.3-8.3) g/dL Albumin 3.1 L (3.5-5.0) g/dL Globulin 3.2 (2.2-3.9) gm/dL Albumin/Globulin Ratio 1.0 (1.0-2.1) 05/10/17 05/09/17 Range/Units 04:57 23:49 WBC (4.8-10.8) K/uL RBC (3.80-5.20) Mil/uL Hgb (11.0-16.0) g/dL Hct (34.0-47.0) % MCV (81.0-99.0) fL MCH (27.0-31.0) pg MCHC (33.0-37.0) g/dL RDW (11.5-14.5) % Plt Count (130-400) K/uL MPV (7.2-11.7) fL Neut % (Auto) (50.0-75.0) % Lymph % (Auto) (20.0-40.0) % Webb % (Auto) (0.0-10.0) % Eos % (Auto) (0.0-4.0) % Baso % (Auto) (0.0-2.0) % Neut # (1.8-7.0) K/uL Lymph # (1.0-4.3) K/uL Webb # (0.0-0.8) K/uL Eos # (0.0-0.7) K/uL Baso # (0.0-0.2) K/uL Sodium (132-148) mmol/L Potassium (3.6-5.2) mmol/L Chloride (98-107) mmol/L Carbon Dioxide (22-30) mmol/L Anion Gap (10-20) BUN (7-17) mg/dL Creatinine (0.7-1.2) mg/dL Est GFR ( Amer) Est GFR (Non-Af Amer) POC Glucose (mg/dL) 115 H 104 (65-110) mg/dL Random Glucose (65-105) mg/dL Calcium (8.6-10.4) mg/dl Phosphorus (2.5-4.5) mg/dL Magnesium (1.6-2.3) mg/dL Total Bilirubin (0.2-1.3) mg/dL AST (14-36) U/L ALT (9-52) U/L Alkaline Phosphatase (38-126) U/L Total Protein (6.3-8.3) g/dL Albumin (3.5-5.0) g/dL Globulin (2.2-3.9) gm/dL Albumin/Globulin Ratio (1.0-2.1) Laboratory Results - last 24 hr 05/09/17 05/10/17 05/10/17 23:49 04:57 06:23 WBC RBC Hgb Hct MCV MCH MCHC RDW Plt Count MPV Neut % (Auto) Lymph % (Auto) Webb % (Auto) Eos % (Auto) Baso % (Auto) Neut # Lymph # Webb # Eos # Baso # Sodium 130 L Potassium 3.9 Chloride 99 Carbon Dioxide 20 L Anion Gap 15 BUN 8 Creatinine 0.7 Est GFR ( Amer) > 60 Est GFR (Non-Af Amer) > 60 POC Glucose (mg/dL) 104 115 H Random Glucose 111 H Calcium 8.8 Phosphorus 3.8 Magnesium 1.8 Total Bilirubin 0.5 AST 35 ALT 59 H Alkaline Phosphatase 330 H Total Protein 6.3 Albumin 3.1 L Globulin 3.2 Albumin/Globulin Ratio 1.0 05/10/17 05/10/17 06:25 11:27 WBC 16.6 H RBC 2.93 L Hgb 8.5 L Hct 24.9 L MCV 84.9 MCH 29.1 MCHC 34.3 RDW 14.9 H Plt Count 401 H MPV 9.5 Neut % (Auto) 72.2 Lymph % (Auto) 15.8 L Webb % (Auto) 8.0 Eos % (Auto) 2.6 Baso % (Auto) 1.4 Neut # 12.0 H Lymph # 2.6 Webb # 1.3 H Eos # 0.4 Baso # 0.2 Sodium Potassium Chloride Carbon Dioxide Anion Gap BUN Creatinine Est GFR ( Amer) Est GFR (Non-Af Amer) POC Glucose (mg/dL) 120 H Random Glucose Calcium Phosphorus Magnesium Total Bilirubin AST ALT Alkaline Phosphatase Total Protein Albumin Globulin Albumin/Globulin Ratio Assessment/Plan (1) SMAS (superior mesenteric artery syndrome) Current Visit: Yes Status: Acute Comment: (2) Acute renal failure Current Visit: Yes Status: Acute (3) Mental retardation Current Visit: No Status: Acute Attending/Attestation - Attestation I have personally seen and examined this patient.: Yes I have fully participated in the care of the patient.: Yes I have reviewed all pertinent clinical information: Yes Notes (Text): 05/10/17 17:55 Patient seen and examined in the intensive care unit. Feeding started thru j tube CPAP trial Continue antibiotics continue present treatment
[2017-05-10] MEDS ORDERED: Magnesium Sulfate 1 gm in D5W 1 GM/100 ML BAG IVPB ONE (08:00)
--- NOTE | 2017-05-10 09:09 | RAD ---
Chest x-ray single frontal view History: Shortness of breath. Comparison: 05/06/2017 Findings: Tracheostomy tube in place. NG tube extending into stomach. Right central venous catheter extending into the right atrium. Mild venous congestion. Right hilar prominence. Top normal heart size. Impression: Tracheostomy tube in place. NG tube extending into stomach. Right central venous catheter extending into the right atrium. Mild venous congestion. Right hilar prominence.
[2017-05-10] MEDS: levETIRAcetam 500 MG in Sodium Chloride 0.9% 100 ML IVPB SCH ×2 (09:14→21:39)
[2017-05-10] MEDS: Multiple Vitamins Oral Solution PO SCH (09:19)
--- NOTE | 2017-05-10 09:51 | CP.PCM.PN ---
Subjective - Date & Time of Evaluation Date of Evaluation: 05/10/17 Time of Evaluation: 07:20 - Subjective Subjective: General Surgery Pt S&E, Febrile to 100.6 yesterday. Continues to have issues with bile reflux. Episodes of emesis are bilious, no tube feeds are noted even when they are on. Replaced J tube for enteral feeds. Objective - Vital Signs/Intake and Output Vital Signs (last 24 hours): Temp Pulse Resp BP Pulse Ox 98.6 F 121 H 14 117/80 100 05/10/17 08:00 05/10/17 09:00 05/10/17 09:00 05/10/17 09:18 05/10/17 09:00 Intake and Output: 05/10/17 05/10/17 06:59 18:59 Intake Total 1408 368 Output Total 430 Balance 978 368 - Medications Medications: Current Medications Acetaminophen (Tylenol 650mg/20.3ml Solution Ud) 650 mg PO Q4 PRN PRN Reason: Temperature Last Admin: 05/09/17 12:31 Dose: 650 mg Bisacodyl (Dulcolax) 10 mg MT Q24H PRN PRN Reason: Constipation Last Admin: 05/08/17 06:02 Dose: 10 mg Cefepime HCl 1 gm/ Dextrose 50 mls @ 100 mls/hr IVPB DAILY [facility] Last Admin: 05/10/17 09:21 Dose: 100 mls/hr Levetiracetam 500 mg/ Sodium (Chloride) 105 mls @ 420 mls/hr IVPB Q12H [facility] Last Admin: 05/10/17 09:14 Dose: 420 mls/hr Linezolid (Zyvox 600mg/300ml D5w) 600 mg in 300 mls @ 200 mls/hr IVPB Q12 [facility] Last Admin: 05/09/17 21:54 Dose: 200 mls/hr Multivitamins/Vitamin C 10 ml/Insulin Human Regular 10 unit / Heparin Sodium ( Porcine) 1, 000 units/ Amino Acids/Electrolytes/Dextrose 1,010.3 mls @ 42 mls/ hr IV .Q24H [facility] Last Admin: 05/09/17 17:47 Dose: 42 mls/hr Lorazepam (Ativan) 0.5 mg IVP Q6H PRN PRN Reason: Anxiety Last Admin: 05/09/17 18:13 Dose: 0.5 mg Metoprolol Tartrate (Lopressor) 5 mg IVP Q6H PRN PRN Reason: Systolic Blood Pressure Last Admin: 05/10/17 02:28 Dose: 5 mg Metoprolol Tartrate (Lopressor) 75 mg PO BID [facility] Last Admin: 05/10/17 09:18 Dose: 75 mg Multivitamins/Vitamin C (Multi-Delyn Liquid) 5 ml PO DAILY [facility] Last Admin: 05/10/17 09:19 Dose: 5 ml Pantoprazole Sodium (Protonix Inj) 20 mg IVP BID [facility] Last Admin: 05/10/17 09:19 Dose: 20 mg Quetiapine Fumarate (Seroquel) 100 mg PO BID [facility] - Labs Labs: 05/10/17 06:25 05/10/17 06:23 PT 14.0 SECONDS (9.7-12.2) H 04/25/17 06:25 INR 1.2 04/25/17 06:25 APTT 32 SECONDS (21-34) 04/25/17 06:25 - Constitutional Appears: Non-toxic, No Acute Distress - Head Exam Head Exam: ATRAUMATIC, NORMOCEPHALIC - Eye Exam Eye Exam: EOMI. absent: Scleral icterus - ENT Exam Additional comments: trach in place - Respiratory Exam Respiratory Exam: NORMAL BREATHING PATTERN. absent: Respiratory Distress - GI/Abdominal Exam GI & Abdominal Exam: Soft. absent: Distended, Firm, Guarding, Rigid, Tenderness Additional comments: Incision C/D/I Jejunostomy for feeds pink, viable - Neurological Exam Neurological Exam: Awake - Skin Skin Exam: Dry, Warm Assessment and Plan - Assessment and Plan (Free Text) Assessment: 36F s/p gastrojejunostomy w/ bypass and feeding jejunostomy POD#22 Plan: Feeding via J tube, notify surgery team prior to stopping Jtube feeds Keep NGT for suction Monitor for emesis Anti-emetics PRN D/W Dr. Andrea Seay [id number]
[2017-05-10] MEDS: Linezolid 600 mg in D5W 300 ml 600 MG/300 ML BAG IVPB SCH ×2 (09:59→21:39)
--- NOTE | 2017-05-10 11:34 | CP.PCM.PN ---
Subjective - Date & Time of Evaluation Date of Evaluation: 05/10/17 Time of Evaluation: 11:33 - Subjective Subjective: seen and examined pt unable to provide history s/p j tube replacement good uop labs noted, na 130 Objective - Vital Signs/Intake and Output Vital Signs (last 24 hours): Temp Pulse Resp BP Pulse Ox 98.6 F 98 H 16 111/73 100 05/10/17 08:00 05/10/17 11:00 05/10/17 11:00 05/10/17 10:58 05/10/17 11:00 Intake and Output: 05/10/17 05/10/17 06:59 18:59 Intake Total 1408 802 Output Total 430 Balance 978 802 - Medications Medications: Current Medications Acetaminophen (Tylenol 650mg/20.3ml Solution Ud) 650 mg PO Q4 PRN PRN Reason: Temperature Last Admin: 05/09/17 12:31 Dose: 650 mg Bisacodyl (Dulcolax) 10 mg [place] Q24H PRN PRN Reason: Constipation Last Admin: 05/08/17 06:02 Dose: 10 mg Cefepime HCl 1 gm/ Dextrose 50 mls @ 100 mls/hr IVPB DAILY [facility] Last Admin: 05/10/17 09:21 Dose: 100 mls/hr Levetiracetam 500 mg/ Sodium (Chloride) 105 mls @ 420 mls/hr IVPB Q12H [facility] Last Admin: 05/10/17 09:14 Dose: 420 mls/hr Linezolid (Zyvox 600mg/300ml D5w) 600 mg in 300 mls @ 200 mls/hr IVPB Q12 [facility] Last Admin: 05/10/17 09:59 Dose: 200 mls/hr Multivitamins/Vitamin C 10 ml/Insulin Human Regular 10 unit / Heparin Sodium ( Porcine) 1, 000 units/ Amino Acids/Electrolytes/Dextrose 1,010.3 mls @ 42 mls/ hr IV .Q24H [facility] Last Admin: 05/09/17 17:47 Dose: 42 mls/hr Lorazepam (Ativan) 0.5 mg IVP Q6H PRN PRN Reason: Anxiety Last Admin: 05/09/17 18:13 Dose: 0.5 mg Metoprolol Tartrate (Lopressor) 5 mg IVP Q6H PRN PRN Reason: Systolic Blood Pressure Last Admin: 05/10/17 02:28 Dose: 5 mg Metoprolol Tartrate (Lopressor) 75 mg PO BID [facility] Last Admin: 05/10/17 09:18 Dose: 75 mg Multivitamins/Vitamin C (Multi-Delyn Liquid) 5 ml PO DAILY [facility] Last Admin: 05/10/17 09:19 Dose: 5 ml Pantoprazole Sodium (Protonix Inj) 20 mg IVP BID [facility] Last Admin: 05/10/17 09:19 Dose: 20 mg Quetiapine Fumarate (Seroquel) 100 mg PO BID [facility] - Labs Labs: 05/10/17 06:25 05/10/17 06:23 PT 14.0 SECONDS (9.7-12.2) H 04/25/17 06:25 INR 1.2 04/25/17 06:25 APTT 32 SECONDS (21-34) 04/25/17 06:25 - Constitutional Appears: No Acute Distress, Unkempt, Chronically Ill - Head Exam Head Exam: NORMAL INSPECTION - Eye Exam Eye Exam: Normal appearance, PERRL - ENT Exam ENT Exam: Mucous Membranes Dry - Neck Exam Neck Exam: Full ROM, Normal Inspection - Respiratory Exam Respiratory Exam: Clear to Ausculation Bilateral, NORMAL BREATHING PATTERN - Cardiovascular Exam Cardiovascular Exam: REGULAR RHYTHM, RRR - GI/Abdominal Exam GI & Abdominal Exam: Distended, Soft - Extremities Exam Extremities Exam: Normal Inspection - Neurological Exam Neurological Exam: Alert, Awake - Psychiatric Exam Psychiatric exam: Agitated - Skin Skin Exam: Intact, Normal Color, Warm Assessment and Plan (1) JIMBO (acute kidney injury) Status: Resolved (2) SBO (small bowel obstruction) Status: Acute (3) Mental retardation Status: Acute (4) Schizophrenia Status: Acute - Assessment and Plan (Free Text) Assessment: tube feeds to be restarted, no free water daily chems
--- NOTE | 2017-05-10 13:51 | EEG ---
DATE:04/21/17 REASON FOR EXAMINATION: Seizures. TECHNICAL DESCRIPTION: This is a standard EEG with 16 electrodes placed using 10-20 International Electrode Placement System. All data was referenced to P1-P2 electrodes and A1-A2 reference. Digital analysis was performed using spike detection. DESCRIPTION: There is a normal 8-9 Hz posterior dominant rhythm during awake. No drowsiness was captured symmetrically with data. Stage II and stage I sleep were captured with symmetric sleep spindles at 12-13 Hz, K complexes and vertex waves. There were no interictal discharges noted. There was no focal slowing noted. There was some mild intermittent generalized slowing. There were no clinical or subclinical seizures. IMPRESSION: This is a normal awake and sleep electroencephalogram. Clinical correlation is required. Eddie Bryant MD [facility]
[2017-05-11] MEDS: Metoprolol 1 mg/ml Inj IVP PRN (05:22)
[2017-05-11 06:25] LABS: BASO # 0.1 K/uL (0.0-0.2); BASO % 0.5 % (0.0-2.0); EOS # 0.3 K/uL (0.0-0.7); EOS % 2.4 % (0.0-4.0); HEMOGLOBIN 8.7 g/dL (11.0-16.0); LYMPH # 2.7 K/uL (1.0-4.3); LYMPH % 20.6 % (20.0-40.0); MEAN CORPUSCULAR HEMOGLOBIN 29.3 pg (27.0-31.0); MEAN CORPUSCULAR HGB CONC 34.5 g/dL (33.0-37.0); MEAN PLATELET VOLUME 9.2 fL (7.2-11.7); MONO # 1.5 K/uL (0.0-0.8); MONO % 11.2 % (0.0-10.0); NEUT # 8.7 K/uL (1.8-7.0); NEUT % 65.3 % (50.0-75.0); RBC 2.98 Mil/uL (3.80-5.20); RED CELL DISTRIBUTION WIDTH 14.8 % (11.5-14.5); WHITE BLOOD COUNT 13.3 K/uL (4.8-10.8)
[2017-05-11 07:00] LABS: ALB/GLOB RATIO 0.9 (1.0-2.1); ALBUMIN 3.3 g/dL (3.5-5.0); ALT/SGPT 58 U/L (9-52); AST/SGOT 33 U/L (14-36); BLOOD UREA NITROGEN 8 mg/dL (7-17); CALCIUM 9.1 mg/dl (8.6-10.4); GFR AFRICAN-AMERICAN > 60; GFR NON-AFRICAN AMERICAN > 60
[2017-05-11] MEDS ORDERED: Magnesium Sulfate 1 gm in D5W 1 GM/100 ML BAG IVPB ONE (07:17)
[2017-05-11] MEDS: levETIRAcetam 500 MG in Sodium Chloride 0.9% 100 ML IVPB SCH ×2 (09:21→21:30)
[2017-05-11] MEDS: Linezolid 600 mg in D5W 300 ml 600 MG/300 ML BAG IVPB SCH ×2 (09:22→21:59)
[2017-05-11] MEDS: Multiple Vitamins Oral Solution PO SCH (09:23)
--- NOTE | 2017-05-11 12:02 | CP.CCUPN ---
<Bipin Chopra - Last Filed: 05/11/17 14:41> CCU Subjective - Physician Review Subjective (Free Text): 05/11/17 12:01 patient seen and examined at bedside pulled J tube out yesterday, was replaced tolerating feeds, no vomiting trach collar today CCU Objective - Vital Signs / Intake & Output Vital Signs (Last 4 hours): Vital Signs Pulse Resp BP Pulse Ox 05/11/17 11:00 99 H 14 100 05/11/17 10:58 97 H 20 114/75 05/11/17 10:00 94 H 16 100 05/11/17 09:58 98 H 17 118/85 100 05/11/17 09:20 123/83 05/11/17 09:00 126 H 18 100 05/11/17 08:59 127 H 14 123/83 100 Intake and Output (Last 8hrs): Intake & Output 05/10/17 05/11/17 05/11/17 22:59 06:59 14:59 Intake Total 180 430 670 Output Total 320 20 Balance -140 410 670 Weight 129 lb 6 oz Intake: Intake, IV Amount 100 300 550 Left Distal Port PICC 100 300 300 Left PICC Proximal Port 250 Tube Feeding 80 130 120 Output: Drainage 20 20 Right Lower Abdomen 20 20 Urine 300 Urine, Voided 300 Other: # Bowel Movements 0 - Physical Exam Head: Positive for: Atraumatic, Normocephalic. Negative for: Tenderness Pupils: Positive for: PERRL Extroacular Muscles: Positive for: EOMI Mouth: Positive for: Moist Mucous Membranes. Negative for: Dry, Drooling Nose (External): Positive for: Other (NGT in place) Nose (Internal): Positive for: Normal Inspection, Moist Neck: Positive for: Other (trach). Negative for: JVD, Lymphadenopathy Respiratory/Chest: Positive for: Clear to Auscultation. Negative for: Respiratory Distress, Accessory Muscle Use Cardiovascular: Positive for: Regular Rate and Rhythm, Normal S1, S2 Abdomen: Positive for: Tenderness (mild tenderness of palpation. patient continues to move her arms towards hands on palpation), Normal Bowel Sounds. Negative for: Distention, Peritoneal Signs, Guarding Upper Extremity: Positive for: Normal Inspection, Normal ROM, Capillary Refill < 2s. Negative for: Edema Lower Extremity: Positive for: Normal Inspection. Negative for: Edema Neurological: Positive for: CN II-XII Intact Skin: Positive for: Warm, Pale Psychiatric: Positive for: Alert - Medications Active Medications: Active Medications Generic Name Dose Route Start Last Admin Trade Name Arvinq PRN Reason Stop Dose Admin Acetaminophen 650 mg 04/28/17 20:11 05/09/17 12:31 Tylenol 650mg/20.3ml Solution Ud PO 650 mg Q4 PRN Administration Temperature Bisacodyl 10 mg 05/07/17 13:35 05/08/17 06:02 Dulcolax [place] 10 mg Q24H PRN Administration Constipation Heparin Sodium (Porcine) 5,000 units 05/10/17 14:00 05/11/17 05:21 Heparin SC 5,000 units Q8 [facility] Administration Cefepime HCl 1 gm/ Dextrose 50 mls @ 100 mls/hr 05/03/17 10:00 05/11/17 09:21 IVPB 100 mls/hr DAILY [facility] Administration Levetiracetam 500 mg/ Sodium 105 mls @ 420 mls/hr 05/03/17 22:00 05/11/17 09: 21 Chloride IVPB 420 mls/hr Q12H [facility] Administration Linezolid 600 mg in 300 mls @ 200 mls/hr 05/04/17 22:00 05/11/17 09:22 Zyvox 600mg/300ml D5w IVPB 200 mls/hr Q12 [facility] Administration Multivitamins/Vitamin C 10 ml/ 1,010.3 mls @ 42 mls/hr 05/09/17 18:00 17:47 Insulin Human Regular 10 unit IV 42 mls/hr / Heparin Sodium (Porcine) 1, .Q24H [facility] Administration 000 units/ Amino Acids/ Electrolytes/Dextrose Lorazepam 0.5 mg 05/05/17 12:00 05/10/17 20:43 Ativan IVP 0.5 mg Q6H PRN Administration Anxiety Metoprolol Tartrate 5 mg 05/06/17 10:27 05/11/17 05:22 Lopressor IVP 5 mg Q6H PRN Administration Systolic Blood Pressure Metoprolol Tartrate 75 mg 05/06/17 14:35 05/11/17 09:20 Lopressor PO 75 mg BID [facility] Administration Multivitamins/Vitamin C 5 ml 04/30/17 12:00 01/31/18 09:23 Multi-Delyn Liquid PO 5 ml DAILY [facility] Administration Pantoprazole Sodium 20 mg 04/19/17 18:00 05/11/17 09:20 Protonix Inj IVP 20 mg BID [facility] Administration Quetiapine Fumarate 100 mg 05/07/17 10:17 Seroquel PO BID [facility] - Patient Studies Lab Studies: Microbiology Studies 04/25/17 12:02 Blood Fungal Culture - Preliminary Other: Please Indicate Lab Studies 05/11/17 05/11/17 05/11/17 Range/Units 11:45 06:19 06:18 WBC 13.3 H (4.8-10.8) K/uL RBC 2.98 L (3.80-5.20) Mil/uL Hgb 8.7 L (11.0-16.0) g/dL Hct 25.3 L (34.0-47.0) % MCV 85.0 (81.0-99.0) fL MCH 29.3 (27.0-31.0) pg MCHC 34.5 (33.0-37.0) g/dL RDW 14.8 H (11.5-14.5) % Plt Count 358 (130-400) K/uL MPV 9.2 (7.2-11.7) fL Neut % (Auto) 65.3 (50.0-75.0) % Lymph % (Auto) 20.6 (20.0-40.0) % [place] % (Auto) 11.2 H (0.0-10.0) % Eos % (Auto) 2.4 (0.0-4.0) % Baso % (Auto) 0.5 (0.0-2.0) % Neut # (Auto) 8.7 H (1.8-7.0) K/uL Lymph # (Auto) 2.7 (1.0-4.3) K/uL [place] # (Auto) 1.5 H (0.0-0.8) K/uL Eos # (Auto) 0.3 (0.0-0.7) K/uL Baso # (Auto) 0.1 (0.0-0.2) K/uL Sodium 131 L (132-148) mmol/L Potassium 4.0 (3.6-5.2) mmol/L Chloride 97 L (98-107) mmol/L Carbon Dioxide 25 (22-30) mmol/L Anion Gap 13 (10-20) BUN 8 (7-17) mg/dL Creatinine 0.7 (0.7-1.2) mg/dL Est GFR ( Amer) > 60 Est GFR (Non-Af Amer) > 60 POC Glucose (mg/dL) 105 (65-110) mg/dL Random Glucose 100 (65-105) mg/dL Calcium 9.1 (8.6-10.4) mg/dl Phosphorus 4.3 (2.5-4.5) mg/dL Magnesium 1.6 (1.6-2.3) mg/dL Total Bilirubin 0.5 (0.2-1.3) mg/dL AST 33 (14-36) U/L ALT 58 H (9-52) U/L Alkaline Phosphatase 306 H (38-126) U/L Total Protein 6.9 (6.3-8.3) g/dL Albumin 3.3 L (3.5-5.0) g/dL Globulin 3.7 (2.2-3.9) gm/dL Albumin/Globulin Ratio 0.9 L (1.0-2.1) 05/11/17 05/10/17 05/10/17 Range/Units 05:16 23:57 17:55 WBC (4.8-10.8) K/uL RBC (3.80-5.20) Mil/uL Hgb (11.0-16.0) g/dL Hct (34.0-47.0) % MCV (81.0-99.0) fL MCH (27.0-31.0) pg MCHC (33.0-37.0) g/dL RDW (11.5-14.5) % Plt Count (130-400) K/uL MPV (7.2-11.7) fL Neut % (Auto) (50.0-75.0) % Lymph % (Auto) (20.0-40.0) % [place] % (Auto) (0.0-10.0) % Eos % (Auto) (0.0-4.0) % Baso % (Auto) (0.0-2.0) % Neut # (Auto) (1.8-7.0) K/uL Lymph # (Auto) (1.0-4.3) K/uL [place] # (Auto) (0.0-0.8) K/uL Eos # (Auto) (0.0-0.7) K/uL Baso # (Auto) (0.0-0.2) K/uL Sodium (132-148) mmol/L Potassium (3.6-5.2) mmol/L Chloride (98-107) mmol/L Carbon Dioxide (22-30) mmol/L Anion Gap (10-20) BUN (7-17) mg/dL Creatinine (0.7-1.2) mg/dL Est GFR ( Amer) Est GFR (Non-Af Amer) POC Glucose (mg/dL) 96 87 101 (65-110) mg/dL Random Glucose (65-105) mg/dL Calcium (8.6-10.4) mg/dl Phosphorus (2.5-4.5) mg/dL Magnesium (1.6-2.3) mg/dL Total Bilirubin (0.2-1.3) mg/dL AST (14-36) U/L ALT (9-52) U/L Alkaline Phosphatase (38-126) U/L Total Protein (6.3-8.3) g/dL Albumin (3.5-5.0) g/dL Globulin (2.2-3.9) gm/dL Albumin/Globulin Ratio (1.0-2.1) Laboratory Results - last 24 hr 05/10/17 05/10/17 05/11/17 17:55 23:57 05:16 WBC RBC Hgb Hct MCV MCH MCHC RDW Plt Count MPV Neut % (Auto) Lymph % (Auto) [place] % (Auto) Eos % (Auto) Baso % (Auto) Neut # (Auto) Lymph # (Auto) [place] # (Auto) Eos # (Auto) Baso # (Auto) Sodium Potassium Chloride Carbon Dioxide Anion Gap BUN Creatinine Est GFR ( Amer) Est GFR (Non-Af Amer) POC Glucose (mg/dL) 101 87 96 Random Glucose Calcium Phosphorus Magnesium Total Bilirubin AST ALT Alkaline Phosphatase Total Protein Albumin Globulin Albumin/Globulin Ratio 05/11/17 05/11/17 05/11/17 06:18 06:19 11:45 WBC 13.3 H RBC 2.98 L Hgb 8.7 L Hct 25.3 L MCV 85.0 MCH 29.3 MCHC 34.5 RDW 14.8 H Plt Count 358 MPV 9.2 Neut % (Auto) 65.3 Lymph % (Auto) 20.6 [place] % (Auto) 11.2 H Eos % (Auto) 2.4 Baso % (Auto) 0.5 Neut # (Auto) 8.7 H Lymph # (Auto) 2.7 [place] # (Auto) 1.5 H Eos # (Auto) 0.3 Baso # (Auto) 0.1 Sodium 131 L Potassium 4.0 Chloride 97 L Carbon Dioxide 25 Anion Gap 13 BUN 8 Creatinine 0.7 Est GFR ( Amer) > 60 Est GFR (Non-Af Amer) > 60 POC Glucose (mg/dL) 105 Random Glucose 100 Calcium 9.1 Phosphorus 4.3 Magnesium 1.6 Total Bilirubin 0.5 AST 33 ALT 58 H Alkaline Phosphatase 306 H Total Protein 6.9 Albumin 3.3 L Globulin 3.7 Albumin/Globulin Ratio 0.9 L Fingerstick Blood Sugar Results: 101 Assessment/Plan - Assessment and Plan (Free Text) Assessment: 36F s/gastrojej, J tube, trach Plan: Psych: Schizophrenia - Seroquel 100mg PO BID - Ativan 0.5mg IVP q6h PRN for trach Neuro: Seizure disorder - Keppra 500mg @ 420ml/hr IVPD q12h Cards: Tachycardia (persistent), HTN - Lopressor 75mg BID; 5mg IV PRN admin'd this AM - Magnesium sulfate 1g in 100ml D5W IVPB x1 - D/C'd Pulm: PRVC ventilator - CPAP 5ps 10FiO2 40%, vent settings back to PRVC 116 tv 450 FiO2 40% p+5 over night - O2 via Trach Collar today - CXR from 05/10 showed right hilar prominence and pulmonary venous congestion GI: Biliary emesis, constipation - J-tube re-inserted by surgery removed by pt previous PM - Feeding to resume at 10cc/hr - Dulcolax 10mg [place] q24h Renal: UTI (g+ cocci in urine 05/02) - Cefepime 1g in 5% dextrose water @ 100ml/hr IVPD qd - Linezolid 600mg in D5W 300ml PPx: - Multivitamin: 5ml PO qd - Heparin 5000 U SC q8 - Protonix 20mg IVP BID <Jose Hernandez S - Last Filed: 05/11/17 17:39> CCU Objective - Vital Signs / Intake & Output Vital Signs (Last 4 hours): Vital Signs Temp Pulse Resp BP Pulse Ox 05/11/17 16:00 97.9 F 118 H 26 H 05/11/17 15:59 125 H 23 119/85 05/11/17 15:00 116 H 9 L 100 05/11/17 14:59 116 H 11 L 120/78 100 05/11/17 14:34 117 H 13 119/85 100 05/11/17 14:00 117 H 13 100 Intake and Output (Last 8hrs): Intake & Output 05/11/17 05/11/17 05/11/17 06:59 14:59 22:59 Intake Total 430 745 25 Output Total 20 Balance 410 745 25 Weight 129 lb 6 oz Intake: Intake, IV Amount 300 550 Left Distal Port PICC 300 300 Left PICC Proximal Port 250 Tube Feeding 130 195 25 Output: Drainage 20 Right Lower Abdomen 20 Other: # Bowel Movements 0 - Medications Active Medications: Active Medications Generic Name Dose Route Start Last Admin Trade Name Freq PRN Reason Stop Dose Admin Acetaminophen 650 mg 04/28/17 20:11 05/09/17 12:31 Tylenol 650mg/20.3ml Solution Ud PO 650 mg Q4 PRN Administration Temperature Bisacodyl 10 mg 05/07/17 13:35 05/08/17 06:02 Dulcolax OH 10 mg Q24H PRN Administration Constipation Heparin Sodium (Porcine) 5,000 units 05/10/17 14:00 05/11/17 14:32 Heparin SC 5,000 units Q8 [facility] Administration Cefepime HCl 1 gm/ Dextrose 50 mls @ 100 mls/hr 05/03/17 10:00 05/11/17 09:21 IVPB 100 mls/hr DAILY [facility] Administration Levetiracetam 500 mg/ Sodium 105 mls @ 420 mls/hr 05/03/17 22:00 05/11/17 09: 21 Chloride IVPB 420 mls/hr Q12H [facility] Administration Linezolid 600 mg in 300 mls @ 200 mls/hr 05/04/17 22:00 05/11/17 09:22 Zyvox 600mg/300ml D5w IVPB 200 mls/hr Q12 [facility] Administration Lorazepam 0.5 mg 05/05/17 12:00 05/10/17 20:43 Ativan IVP 0.5 mg Q6H PRN Administration Anxiety Metoprolol Tartrate 5 mg 05/06/17 10:27 05/11/17 05:22 Lopressor IVP 5 mg Q6H PRN Administration Systolic Blood Pressure Metoprolol Tartrate 75 mg 05/06/17 14:35 05/11/17 09:20 Lopressor PO 75 mg BID [facility] Administration Multivitamins/Vitamin C 5 ml 04/30/17 12:00 05/11/17 09:23 Multi-Delyn Liquid PO 5 ml DAILY [facility] Administration Pantoprazole Sodium 20 mg 04/19/17 18:00 05/11/17 09:20 Protonix Inj IVP 20 mg BID [facility] Administration Quetiapine Fumarate 100 mg 05/07/17 10:17 Seroquel PO BID [facility] - Patient Studies Lab Studies: Microbiology Studies 04/25/17 12:02 Blood Fungal Culture - Preliminary Other: Please Indicate Lab Studies 05/11/17 05/11/17 05/11/17 Range/Units 11:45 06:19 06:18 WBC 13.3 H (4.8-10.8) K/uL RBC 2.98 L (3.80-5.20) Mil/uL Hgb 8.7 L (11.0-16.0) g/dL Hct 25.3 L (34.0-47.0) % MCV 85.0 (81.0-99.0) fL MCH 29.3 (27.0-31.0) pg MCHC 34.5 (33.0-37.0) g/dL RDW 14.8 H (11.5-14.5) % Plt Count 358 (130-400) K/uL MPV 9.2 (7.2-11.7) fL Neut % (Auto) 65.3 (50.0-75.0) % Lymph % (Auto) 20.6 (20.0-40.0) % [place] % (Auto) 11.2 H (0.0-10.0) % Eos % (Auto) 2.4 (0.0-4.0) % Baso % (Auto) 0.5 (0.0-2.0) % Neut # (Auto) 8.7 H (1.8-7.0) K/uL Lymph # (Auto) 2.7 (1.0-4.3) K/uL [place] # (Auto) 1.5 H (0.0-0.8) K/uL Eos # (Auto) 0.3 (0.0-0.7) K/uL Baso # (Auto) 0.1 (0.0-0.2) K/uL Sodium 131 L (132-148) mmol/L Potassium 4.0 (3.6-5.2) mmol/L Chloride 97 L (98-107) mmol/L Carbon Dioxide 25 (22-30) mmol/L Anion Gap 13 (10-20) BUN 8 (7-17) mg/dL Creatinine 0.7 (0.7-1.2) mg/dL Est GFR ( Amer) > 60 Est GFR (Non-Af Amer) > 60 POC Glucose (mg/dL) 105 (65-110) mg/dL Random Glucose 100 (65-105) mg/dL Calcium 9.1 (8.6-10.4) mg/dl Phosphorus 4.3 (2.5-4.5) mg/dL Magnesium 1.6 (1.6-2.3) mg/dL Total Bilirubin 0.5 (0.2-1.3) mg/dL AST 33 (14-36) U/L ALT 58 H (9-52) U/L Alkaline Phosphatase 306 H (38-126) U/L Total Protein 6.9 (6.3-8.3) g/dL Albumin 3.3 L (3.5-5.0) g/dL Globulin 3.7 (2.2-3.9) gm/dL Albumin/Globulin Ratio 0.9 L (1.0-2.1) 05/11/17 05/10/17 05/10/17 Range/Units 05:16 23:57 17:55 WBC (4.8-10.8) K/uL RBC (3.80-5.20) Mil/uL Hgb (11.0-16.0) g/dL Hct (34.0-47.0) % MCV (81.0-99.0) fL MCH (27.0-31.0) pg MCHC (33.0-37.0) g/dL RDW (11.5-14.5) % Plt Count (130-400) K/uL MPV (7.2-11.7) fL Neut % (Auto) (50.0-75.0) % Lymph % (Auto) (20.0-40.0) % [place] % (Auto) (0.0-10.0) % Eos % (Auto) (0.0-4.0) % Baso % (Auto) (0.0-2.0) % Neut # (Auto) (1.8-7.0) K/uL Lymph # (Auto) (1.0-4.3) K/uL [place] # (Auto) (0.0-0.8) K/uL Eos # (Auto) (0.0-0.7) K/uL Baso # (Auto) (0.0-0.2) K/uL Sodium (132-148) mmol/L Potassium (3.6-5.2) mmol/L Chloride (98-107) mmol/L Carbon Dioxide (22-30) mmol/L Anion Gap (10-20) BUN (7-17) mg/dL Creatinine (0.7-1.2) mg/dL Est GFR ( Amer) Est GFR (Non-Af Amer) POC Glucose (mg/dL) 96 87 101 (65-110) mg/dL Random Glucose (65-105) mg/dL Calcium (8.6-10.4) mg/dl Phosphorus (2.5-4.5) mg/dL Magnesium (1.6-2.3) mg/dL Total Bilirubin (0.2-1.3) mg/dL AST (14-36) U/L ALT (9-52) U/L Alkaline Phosphatase (38-126) U/L Total Protein (6.3-8.3) g/dL Albumin (3.5-5.0) g/dL Globulin (2.2-3.9) gm/dL Albumin/Globulin Ratio (1.0-2.1) Laboratory Results - last 24 hr 05/10/17 05/10/17 05/11/17 17:55 23:57 05:16 WBC RBC Hgb Hct MCV MCH MCHC RDW Plt Count MPV Neut % (Auto) Lymph % (Auto) [place] % (Auto) Eos % (Auto) Baso % (Auto) Neut # (Auto) Lymph # (Auto) [place] # (Auto) Eos # (Auto) Baso # (Auto) Sodium Potassium Chloride Carbon Dioxide Anion Gap BUN Creatinine Est GFR ( Amer) Est GFR (Non-Af Amer) POC Glucose (mg/dL) 101 87 96 Random Glucose Calcium Phosphorus Magnesium Total Bilirubin AST ALT Alkaline Phosphatase Total Protein Albumin Globulin Albumin/Globulin Ratio 05/11/17 05/11/17 05/11/17 06:18 06:19 11:45 WBC 13.3 H RBC 2.98 L Hgb 8.7 L Hct 25.3 L MCV 85.0 MCH 29.3 MCHC 34.5 RDW 14.8 H Plt Count 358 MPV 9.2 Neut % (Auto) 65.3 Lymph % (Auto) 20.6 [place] % (Auto) 11.2 H Eos % (Auto) 2.4 Baso % (Auto) 0.5 Neut # (Auto) 8.7 H Lymph # (Auto) 2.7 [place] # (Auto) 1.5 H Eos # (Auto) 0.3 Baso # (Auto) 0.1 Sodium 131 L Potassium 4.0 Chloride 97 L Carbon Dioxide 25 Anion Gap 13 BUN 8 Creatinine 0.7 Est GFR ( Amer) > 60 Est GFR (Non-Af Amer) > 60 POC Glucose (mg/dL) 105 Random Glucose 100 Calcium 9.1 Phosphorus 4.3 Magnesium 1.6 Total Bilirubin 0.5 AST 33 ALT 58 H Alkaline Phosphatase 306 H Total Protein 6.9 Albumin 3.3 L Globulin 3.7 Albumin/Globulin Ratio 0.9 L Assessment/Plan (1) SMAS (superior mesenteric artery syndrome) Current Visit: Yes Status: Acute Comment: (2) Acute renal failure Current Visit: Yes Status: Acute (3) Mental retardation Current Visit: No Status: Acute Attending/Attestation - Attestation I have personally seen and examined this patient.: Yes I have fully participated in the care of the patient.: Yes I have reviewed all pertinent clinical information: Yes Notes (Text): 05/11/17 17:33 patient seen and examined in the intensive care unit. Case discussed with house staff in the morning rounds Patient is tolerating trach collar Tolerating feeding Continue present treatment for now
--- NOTE | 2017-05-11 12:38 | CP.PCM.PN ---
Subjective - Date & Time of Evaluation Date of Evaluation: 05/11/17 Time of Evaluation: 12:36 - Subjective Subjective: Ms. Rivera was seen and examined at the bedside in ICU. She is awake, but non verbal. She is unable to follow simple commands. She spontaneously moves all her extremities. She remains with bilateral hand mitten for patient safety. She has a trach and NGT for feedings. There was no untoward events overnight. Objective - Vital Signs/Intake and Output Vital Signs (last 24 hours): Temp Pulse Resp BP Pulse Ox 98.7 F 104 H 26 H 113/85 100 05/11/17 08:00 05/11/17 12:00 05/11/17 12:00 05/11/17 11:58 05/11/17 12:00 Intake and Output: 05/11/17 05/11/17 06:59 18:59 Intake Total 570 695 Output Total 20 Balance 550 695 - Medications Medications: Current Medications Acetaminophen (Tylenol 650mg/20.3ml Solution Ud) 650 mg PO Q4 PRN PRN Reason: Temperature Last Admin: 05/09/17 12:31 Dose: 650 mg Bisacodyl (Dulcolax) 10 mg [place] Q24H PRN PRN Reason: Constipation Last Admin: 05/08/17 06:02 Dose: 10 mg Heparin Sodium (Porcine) (Heparin) 5,000 units SC Q8 [facility] Last Admin: 05/11/17 05:21 Dose: 5,000 units Cefepime HCl 1 gm/ Dextrose 50 mls @ 100 mls/hr IVPB DAILY [facility] Last Admin: 05/11/17 09:21 Dose: 100 mls/hr Levetiracetam 500 mg/ Sodium (Chloride) 105 mls @ 420 mls/hr IVPB Q12H [facility] Last Admin: 05/11/17 09:21 Dose: 420 mls/hr Linezolid (Zyvox 600mg/300ml D5w) 600 mg in 300 mls @ 200 mls/hr IVPB Q12 [facility] Last Admin: 05/11/17 09:22 Dose: 200 mls/hr Lorazepam (Ativan) 0.5 mg IVP Q6H PRN PRN Reason: Anxiety Last Admin: 05/10/17 20:43 Dose: 0.5 mg Metoprolol Tartrate (Lopressor) 5 mg IVP Q6H PRN PRN Reason: Systolic Blood Pressure Last Admin: 05/11/17 05:22 Dose: 5 mg Metoprolol Tartrate (Lopressor) 75 mg PO BID ON LICENSE OF [facility] Last Admin: 05/11/17 09:20 Dose: 75 mg Multivitamins/Vitamin C (Multi-Delyn Liquid) 5 ml PO DAILY ON LICENSE OF [facility] Last Admin: 05/11/17 09:23 Dose: 5 ml Pantoprazole Sodium (Protonix Inj) 20 mg IVP BID ON LICENSE OF [facility] Last Admin: 05/11/17 09:20 Dose: 20 mg Quetiapine Fumarate (Seroquel) 100 mg PO BID ON LICENSE OF [facility] - Labs Labs: 05/11/17 06:18 05/11/17 06:19 PT 14.0 SECONDS (9.7-12.2) H 04/25/17 06:25 INR 1.2 04/25/17 06:25 APTT 32 SECONDS (21-34) 04/25/17 06:25 - Constitutional Appears: No Acute Distress - Head Exam Head Exam: NORMAL INSPECTION - Neurological Exam Neurological Exam: Awake Neuro motor strength exam: Left Upper Extremity: 4, Right Upper Extremity: 4, Left Lower Extremity: 4, Right Lower Extremity: 4 Additional comments: Neurological unchanged from previous examination. Assessment and Plan (1) Focal seizure Assessment & Plan: Case discussed with Dr. Krueger, continue all current medical regimen. There is no new recommendations from neurology. Status: Acute
--- NOTE | 2017-05-11 14:53 | CP.PCM.PN ---
Subjective - Date & Time of Evaluation Date of Evaluation: 05/11/17 Time of Evaluation: 10:00 - Subjective Subjective: General Surgery Note for Dr. Mendez Patient seen and examined at bedside. No acute event overnight. No episodes of emesis as per nursing. Patient is tolearating j-tube feeds. Objective - Vital Signs/Intake and Output Vital Signs (last 24 hours): Temp Pulse Resp BP Pulse Ox 98.3 F 117 H 13 103/63 100 05/11/17 12:00 05/11/17 14:00 05/11/17 14:00 05/11/17 12:58 05/11/17 14:00 Intake and Output: 05/11/17 05/11/17 06:59 18:59 Intake Total 570 745 Output Total 20 Balance 550 745 - Medications Medications: Current Medications Acetaminophen (Tylenol 650mg/20.3ml Solution Ud) 650 mg PO Q4 PRN PRN Reason: Temperature Last Admin: 05/09/17 12:31 Dose: 650 mg Bisacodyl (Dulcolax) 10 mg [place] Q24H PRN PRN Reason: Constipation Last Admin: 05/08/17 06:02 Dose: 10 mg Heparin Sodium (Porcine) (Heparin) 5,000 units SC Q8 [facility] Last Admin: 05/11/17 14:32 Dose: 5,000 units Cefepime HCl 1 gm/ Dextrose 50 mls @ 100 mls/hr IVPB DAILY [facility] Last Admin: 05/11/17 09:21 Dose: 100 mls/hr Levetiracetam 500 mg/ Sodium (Chloride) 105 mls @ 420 mls/hr IVPB Q12H [facility] Last Admin: 05/11/17 09:21 Dose: 420 mls/hr Linezolid (Zyvox 600mg/300ml D5w) 600 mg in 300 mls @ 200 mls/hr IVPB Q12 [facility] Last Admin: 05/11/17 09:22 Dose: 200 mls/hr Lorazepam (Ativan) 0.5 mg IVP Q6H PRN PRN Reason: Anxiety Last Admin: 05/10/17 20:43 Dose: 0.5 mg Metoprolol Tartrate (Lopressor) 5 mg IVP Q6H PRN PRN Reason: Systolic Blood Pressure Last Admin: 05/11/17 05:22 Dose: 5 mg Metoprolol Tartrate (Lopressor) 75 mg PO BID [facility] Last Admin: 05/11/17 09:20 Dose: 75 mg Multivitamins/Vitamin C (Multi-Delyn Liquid) 5 ml PO DAILY [facility] Last Admin: 05/11/17 09:23 Dose: 5 ml Pantoprazole Sodium (Protonix Inj) 20 mg IVP BID [facility] Last Admin: 05/11/17 09:20 Dose: 20 mg Quetiapine Fumarate (Seroquel) 100 mg PO BID [facility] - Labs Labs: 05/11/17 06:18 05/11/17 06:19 PT 14.0 SECONDS (9.7-12.2) H 04/25/17 06:25 INR 1.2 04/25/17 06:25 APTT 32 SECONDS (21-34) 04/25/17 06:25 - Constitutional Appears: No Acute Distress - Head Exam Head Exam: ATRAUMATIC, NORMOCEPHALIC - Eye Exam Eye Exam: EOMI, Normal appearance - ENT Exam ENT Exam: Mucous Membranes Moist - Neck Exam Additional comments: tracheostomy - Respiratory Exam Respiratory Exam: NORMAL BREATHING PATTERN - Cardiovascular Exam Cardiovascular Exam: Tachycardia - GI/Abdominal Exam GI & Abdominal Exam: Soft. absent: Tenderness Additional comments: Incision C/D/I Jejunostomy with feeding tub ein place - pink, viable - Neurological Exam Neurological Exam: Alert, Awake - Psychiatric Exam Psychiatric exam: Flat Affect - Skin Skin Exam: Dry, Warm Assessment and Plan - Assessment and Plan (Free Text) Plan: 36F s/p gastrojejunostomy w/ bypass and feeding jejunostomy POD#23 Feeding via J tube, notify surgery team prior to stopping Jtube feeds Keep NGT for suction Monitor for emesis Anti-emetics PRN Discussed with Dr. Andrea Wells PGY
--- NOTE | 2017-05-11 16:03 | CP.PCM.PN ---
Subjective - Date & Time of Evaluation Date of Evaluation: 05/11/17 Time of Evaluation: 15:00 - Subjective Subjective: no acute events on vent standby unable to obtain ROS due to mental state Objective - Vital Signs/Intake and Output Vital Signs (last 24 hours): Temp Pulse Resp BP Pulse Ox 98.3 F 117 H 13 103/63 100 05/11/17 12:00 05/11/17 14:00 05/11/17 14:00 05/11/17 12:58 05/11/17 14:00 Intake and Output: 05/11/17 05/11/17 06:59 18:59 Intake Total 570 745 Output Total 20 Balance 550 745 - Medications Medications: Current Medications Acetaminophen (Tylenol 650mg/20.3ml Solution Ud) 650 mg PO Q4 PRN PRN Reason: Temperature Last Admin: 05/09/17 12:31 Dose: 650 mg Bisacodyl (Dulcolax) 10 mg [place] Q24H PRN PRN Reason: Constipation Last Admin: 05/08/17 06:02 Dose: 10 mg Heparin Sodium (Porcine) (Heparin) 5,000 units SC Q8 [facility] Last Admin: 05/11/17 14:32 Dose: 5,000 units Cefepime HCl 1 gm/ Dextrose 50 mls @ 100 mls/hr IVPB DAILY [facility] Last Admin: 05/11/17 09:21 Dose: 100 mls/hr Levetiracetam 500 mg/ Sodium (Chloride) 105 mls @ 420 mls/hr IVPB Q12H [facility] Last Admin: 05/11/17 09:21 Dose: 420 mls/hr Linezolid (Zyvox 600mg/300ml D5w) 600 mg in 300 mls @ 200 mls/hr IVPB Q12 [facility] Last Admin: 05/11/17 09:22 Dose: 200 mls/hr Lorazepam (Ativan) 0.5 mg IVP Q6H PRN PRN Reason: Anxiety Last Admin: 05/10/17 20:43 Dose: 0.5 mg Metoprolol Tartrate (Lopressor) 5 mg IVP Q6H PRN PRN Reason: Systolic Blood Pressure Last Admin: 05/11/17 05:22 Dose: 5 mg Metoprolol Tartrate (Lopressor) 75 mg PO BID [facility] Last Admin: 05/11/17 09:20 Dose: 75 mg Multivitamins/Vitamin C (Multi-Delyn Liquid) 5 ml PO DAILY [facility] Last Admin: 05/11/17 09:23 Dose: 5 ml Pantoprazole Sodium (Protonix Inj) 20 mg IVP BID [facility] Last Admin: 05/11/17 09:20 Dose: 20 mg Quetiapine Fumarate (Seroquel) 100 mg PO BID [facility] - Labs Labs: 05/11/17 06:18 05/11/17 06:19 PT 14.0 SECONDS (9.7-12.2) H 04/25/17 06:25 INR 1.2 04/25/17 06:25 APTT 32 SECONDS (21-34) 04/25/17 06:25 - Constitutional Appears: No Acute Distress, Chronically Ill - Eye Exam Eye Exam: EOMI - ENT Exam ENT Exam: Mucous Membranes Moist - Neck Exam Neck Exam: Full ROM. absent: Lymphadenopathy - Respiratory Exam Respiratory Exam: Clear to Ausculation Bilateral. absent: Accessory Muscle Use - Cardiovascular Exam Cardiovascular Exam: Tachycardia. absent: Rubs - GI/Abdominal Exam GI & Abdominal Exam: Distended. absent: Tenderness - Neurological Exam Neurological Exam: absent: Alert, Oriented x3 Assessment and Plan - Assessment and Plan (Free Text) Assessment: mild hyponatremia, stable phylicia, resolved pancreatitis vdrf will follow
[2017-05-12] MEDS: Metoprolol 1 mg/ml Inj IVP PRN (04:45)
--- NOTE | 2017-05-12 06:03 | CP.PCM.PN ---
Subjective - Date & Time of Evaluation Date of Evaluation: 05/12/17 Time of Evaluation: 06:00 - Subjective Subjective: Ms. Rivera was seen and examined at the bedide in ICU. She is awake, non-verbal. She does not follow any commands, but moves all her extremities spontaneously. She has the trach connected to a wall oxygen. She also has the NGT for feeding and medication adminitration purpose. She has a bilateral hand mitten for patient safety. There are no untoward events overnight. Objective - Vital Signs/Intake and Output Vital Signs (last 24 hours): Temp Pulse Resp BP Pulse Ox 97 F L 136 H 34 H 116/82 97 05/12/17 00:00 05/12/17 02:59 05/12/17 02:59 05/12/17 03:58 05/12/17 02:59 Intake and Output: 05/11/17 05/12/17 18:59 06:59 Intake Total 795 650 Balance 795 650 - Medications Medications: Current Medications Acetaminophen (Tylenol 650mg/20.3ml Solution Ud) 650 mg PO Q4 PRN PRN Reason: Temperature Last Admin: 05/09/17 12:31 Dose: 650 mg Bisacodyl (Dulcolax) 10 mg [place] Q24H PRN PRN Reason: Constipation Last Admin: 05/08/17 06:02 Dose: 10 mg Heparin Sodium (Porcine) (Heparin) 5,000 units SC Q8 [facility] Last Admin: 05/12/17 05:11 Dose: 5,000 units Cefepime HCl 1 gm/ Dextrose 50 mls @ 100 mls/hr IVPB DAILY [facility] Last Admin: 05/11/17 09:21 Dose: 100 mls/hr Levetiracetam 500 mg/ Sodium (Chloride) 105 mls @ 420 mls/hr IVPB Q12H [facility] Last Admin: 05/11/17 21:30 Dose: 420 mls/hr Linezolid (Zyvox 600mg/300ml D5w) 600 mg in 300 mls @ 200 mls/hr IVPB Q12 [facility] Last Admin: 05/11/17 21:59 Dose: 200 mls/hr Lorazepam (Ativan) 0.5 mg IVP Q6H PRN PRN Reason: Anxiety Last Admin: 05/10/17 20:43 Dose: 0.5 mg Metoprolol Tartrate (Lopressor) 5 mg IVP Q6H PRN PRN Reason: Systolic Blood Pressure Last Admin: 05/12/17 04:45 Dose: 5 mg Metoprolol Tartrate (Lopressor) 75 mg PO BID [facility] Last Admin: 05/11/17 18:44 Dose: 75 mg Multivitamins/Vitamin C (Multi-Delyn Liquid) 5 ml PO DAILY [facility] Last Admin: 05/11/17 09:23 Dose: 5 ml Pantoprazole Sodium (Protonix Inj) 20 mg IVP BID [facility] Last Admin: 05/11/17 18:44 Dose: 20 mg Quetiapine Fumarate (Seroquel) 100 mg PO BID [facility] - Labs Labs: 05/11/17 06:18 05/11/17 06:19 PT 14.0 SECONDS (9.7-12.2) H 04/25/17 06:25 INR 1.2 04/25/17 06:25 APTT 32 SECONDS (21-34) 04/25/17 06:25 - Constitutional Appears: No Acute Distress - Head Exam Head Exam: NORMAL INSPECTION - Neurological Exam Neurological Exam: Awake Neuro motor strength exam: Left Upper Extremity: 4, Right Upper Extremity: 4, Left Lower Extremity: 4, Right Lower Extremity: 4 Assessment and Plan (1) Focal seizure Assessment & Plan: CAse discussed with Dr. Krueger, continue all current medical regimen. Recommend treat any underlying infection and electrolyte imbalance. Status: Acute
[2017-05-12 07:43] LABS: BASO # 0.1 K/uL (0.0-0.2); BASO % 0.4 % (0.0-2.0); EOS # 0.2 K/uL (0.0-0.7); HEMOGLOBIN 9.9 g/dL (11.0-16.0); LYMPH # 2.9 K/uL (1.0-4.3); MEAN CELL VOLUME 83.4 fL (81.0-99.0); MEAN CORPUSCULAR HEMOGLOBIN 28.8 pg (27.0-31.0); MEAN CORPUSCULAR HGB CONC 34.6 g/dL (33.0-37.0); MEAN PLATELET VOLUME 7.8 fL (7.2-11.7); MONO # 2.2 K/uL (0.0-0.8); MONO % 9.1 % (0.0-10.0); NEUT # 18.8 K/uL (1.8-7.0); NEUT % 77.5 % (50.0-75.0); RBC 3.43 Mil/uL (3.80-5.20)
[2017-05-12 07:47] LABS: WHITE BLOOD COUNT 24.3 K/uL (4.8-10.8)
[2017-05-12 08:10] LABS: ALB/GLOB RATIO 0.9 (1.0-2.1); ALBUMIN 3.5 g/dL (3.5-5.0); ALT/SGPT 44 U/L (9-52); AST/SGOT 29 U/L (14-36); BLOOD UREA NITROGEN 8 mg/dL (7-17); CALCIUM 9.4 mg/dl (8.6-10.4); GFR AFRICAN-AMERICAN > 60; GFR NON-AFRICAN AMERICAN > 60
--- NOTE | 2017-05-12 08:28 | CP.PCM.PN ---
Subjective - Date & Time of Evaluation Date of Evaluation: 05/12/17 Time of Evaluation: 08:32 - Subjective Subjective: General Surgery Note for Dr. Mendez Patient seen and examined at bedside. No acute event overnight. Patient is tolearating j-tube feeds. The j-tube had to be replaced yesterday because patient removed it. She now has mitten restraints. She is nonverbal, alert, and awake. No episodes of vomiting reported. Objective - Vital Signs/Intake and Output Vital Signs (last 24 hours): Temp Pulse Resp BP Pulse Ox 97.4 F L 143 H 46 H 109/85 98 05/12/17 04:00 05/12/17 06:58 05/12/17 06:58 05/12/17 06:58 05/12/17 06:58 Intake and Output: 05/12/17 05/12/17 06:59 18:59 Intake Total 700 25 Balance 700 25 - Medications Medications: Current Medications Acetaminophen (Tylenol 650mg/20.3ml Solution Ud) 650 mg PO Q4 PRN PRN Reason: Temperature Last Admin: 05/09/17 12:31 Dose: 650 mg Bisacodyl (Dulcolax) 10 mg [place] Q24H PRN PRN Reason: Constipation Last Admin: 05/08/17 06:02 Dose: 10 mg Heparin Sodium (Porcine) (Heparin) 5,000 units SC Q8 [facility] Last Admin: 05/12/17 05:11 Dose: 5,000 units Cefepime HCl 1 gm/ Dextrose 50 mls @ 100 mls/hr IVPB DAILY [facility] Last Admin: 05/11/17 09:21 Dose: 100 mls/hr Levetiracetam 500 mg/ Sodium (Chloride) 105 mls @ 420 mls/hr IVPB Q12H [facility] Last Admin: 05/11/17 21:30 Dose: 420 mls/hr Linezolid (Zyvox 600mg/300ml D5w) 600 mg in 300 mls @ 200 mls/hr IVPB Q12 [facility] Last Admin: 05/11/17 21:59 Dose: 200 mls/hr Magnesium Sulfate/Dextrose (Magnesium Sulfate 1 Gm/100 Ml D5w) 1 gm in 100 mls @ 300 mls/hr IVPB Q30M [facility] Stop: 05/12/17 09:19 Lorazepam (Ativan) 0.5 mg IVP Q6H PRN PRN Reason: Anxiety Last Admin: 05/10/17 20:43 Dose: 0.5 mg Metoprolol Tartrate (Lopressor) 5 mg IVP Q6H PRN PRN Reason: Systolic Blood Pressure Last Admin: 05/12/17 04:45 Dose: 5 mg Metoprolol Tartrate (Lopressor) 75 mg PO BID [facility] Last Admin: 05/11/17 18:44 Dose: 75 mg Multivitamins/Vitamin C (Multi-Delyn Liquid) 5 ml PO DAILY [facility] Last Admin: 05/11/17 09:23 Dose: 5 ml Pantoprazole Sodium (Protonix Inj) 20 mg IVP BID [facility] Last Admin: 05/11/17 18:44 Dose: 20 mg Quetiapine Fumarate (Seroquel) 100 mg PO BID [facility] - Labs Labs: 05/12/17 07:38 05/12/17 07:38 PT 14.0 SECONDS (9.7-12.2) H 04/25/17 06:25 INR 1.2 04/25/17 06:25 APTT 32 SECONDS (21-34) 04/25/17 06:25 - Constitutional Appears: No Acute Distress - Head Exam Head Exam: ATRAUMATIC, NORMOCEPHALIC - Eye Exam Eye Exam: Normal appearance - ENT Exam ENT Exam: Mucous Membranes Moist - Neck Exam Additional comments: tracheostomy - Respiratory Exam Respiratory Exam: NORMAL BREATHING PATTERN - Cardiovascular Exam Cardiovascular Exam: Tachycardia - GI/Abdominal Exam GI & Abdominal Exam: Soft. absent: Distended, Firm, Guarding, Tenderness, Rebound Additional comments: Midline Incision clean dry and intact Jejunostomy with feeding tube in place - pink, viable, patent - Neurological Exam Neurological Exam: Alert, Awake - Psychiatric Exam Psychiatric exam: Flat Affect - Skin Skin Exam: Dry, Intact, Normal Color, Warm Assessment and Plan - Assessment and Plan (Free Text) Plan: 36F s/p gastrojejunostomy w/ bypass and feeding jejunostomy POD#24 Feeding via J tube, notify surgery team prior to stopping J tube feeds NGT on suction for now Monitor for emesis Anti-emetics/Prokinetics PRN Will discuss with Dr. Andrea Wells PGY1
[2017-05-12] MEDS: Magnesium Sulfate 1 gm in D5W 1 GM/100 ML BAG IVPB SCH ×2 (08:36→09:02)
[2017-05-12] MEDS: levETIRAcetam 500 MG in Sodium Chloride 0.9% 100 ML IVPB SCH ×2 (09:05→21:06)
--- NOTE | 2017-05-12 09:09 | CARD ---
APPROVED REPORT EKG Measurement Heart [id number] <Conclusion> Sinus tachycardia T wave abnormality, consider inferolateral ischemia Abnormal ECG
[2017-05-12] MEDS: Multiple Vitamins Oral Solution PO SCH (09:14)
--- NOTE | 2017-05-12 09:44 | CP.PCM.PN ---
Subjective - Date & Time of Evaluation Date of Evaluation: 05/12/17 Time of Evaluation: 09:42 - Subjective Subjective: On trach collar; same confusional state renal function has normalized Na 131, mag low; other lytes acceptable no new events tolerating tube feeds well Objective - Vital Signs/Intake and Output Vital Signs (last 24 hours): Temp Pulse Resp BP Pulse Ox 97.4 F L 143 H 46 H 109/85 98 05/12/17 04:00 05/12/17 06:58 05/12/17 06:58 05/12/17 06:58 05/12/17 06:58 Intake and Output: 05/12/17 05/12/17 06:59 18:59 Intake Total 700 25 Balance 700 25 - Medications Medications: Current Medications Acetaminophen (Tylenol 650mg/20.3ml Solution Ud) 650 mg PO Q4 PRN PRN Reason: Temperature Last Admin: 05/09/17 12:31 Dose: 650 mg Bisacodyl (Dulcolax) 10 mg [place] Q24H PRN PRN Reason: Constipation Last Admin: 05/08/17 06:02 Dose: 10 mg Heparin Sodium (Porcine) (Heparin) 5,000 units SC Q8 [facility] Last Admin: 05/12/17 05:11 Dose: 5,000 units Cefepime HCl 1 gm/ Dextrose 50 mls @ 100 mls/hr IVPB DAILY [facility] Last Admin: 05/12/17 09:14 Dose: 100 mls/hr Levetiracetam 500 mg/ Sodium (Chloride) 105 mls @ 420 mls/hr IVPB Q12H [facility] Last Admin: 05/12/17 09:05 Dose: 420 mls/hr Linezolid (Zyvox 600mg/300ml D5w) 600 mg in 300 mls @ 200 mls/hr IVPB Q12 [facility] Last Admin: 05/11/17 21:59 Dose: 200 mls/hr Lorazepam (Ativan) 0.5 mg IVP Q6H PRN PRN Reason: Anxiety Last Admin: 05/10/17 20:43 Dose: 0.5 mg Metoprolol Tartrate (Lopressor) 5 mg IVP Q6H PRN PRN Reason: Systolic Blood Pressure Last Admin: 05/12/17 04:45 Dose: 5 mg Metoprolol Tartrate (Lopressor) 75 mg PO BID [facility] Last Admin: 05/11/17 18:44 Dose: 75 mg Multivitamins/Vitamin C (Multi-Delyn Liquid) 5 ml PO DAILY [facility] Last Admin: 05/12/17 09:14 Dose: 5 ml Pantoprazole Sodium (Protonix Inj) 20 mg IVP BID [facility] Last Admin: 05/12/17 09:14 Dose: 20 mg Quetiapine Fumarate (Seroquel) 100 mg PO BID [facility] - Labs Labs: 05/12/17 07:38 05/12/17 07:38 PT 14.0 SECONDS (9.7-12.2) H 04/25/17 06:25 INR 1.2 04/25/17 06:25 APTT 32 SECONDS (21-34) 04/25/17 06:25 - Constitutional Appears: No Acute Distress, Chronically Ill - Head Exam Head Exam: ATRAUMATIC, NORMAL INSPECTION - Eye Exam Eye Exam: EOMI, Normal appearance - Neck Exam Neck Exam: Normal Inspection. absent: Tenderness - Respiratory Exam Respiratory Exam: Clear to Ausculation Bilateral, NORMAL BREATHING PATTERN - Cardiovascular Exam Cardiovascular Exam: REGULAR RHYTHM, +S1 - GI/Abdominal Exam GI & Abdominal Exam: Soft. absent: Tenderness - Extremities Exam Extremities Exam: Normal Inspection. absent: Tenderness - Neurological Exam Neurological Exam: Alert, CN II-XII Intact - Skin Skin Exam: Dry, Warm Assessment and Plan (1) JIMBO (acute kidney injury) Status: Resolved (2) Acute pancreatitis Status: Resolved (3) SBO (small bowel obstruction) Status: Resolved (4) Schizophrenia Status: Chronic - Assessment and Plan (Free Text) Plan: replete mag JIMBO resolved- will see again as needed
[2017-05-12] MEDS ORDERED: Magnesium Sulfate 1 gm in D5W 1 GM/100 ML BAG IVPB ONE (10:00)
[2017-05-12] MEDS: Linezolid 600 mg in D5W 300 ml 600 MG/300 ML BAG IVPB SCH ×2 (10:35→21:30)
--- NOTE | 2017-05-12 12:29 | CP.CCUPN ---
<LeroytieramelissaBipin - Last Filed: 05/12/17 12:55> CCU Subjective - Physician Review Subjective (Free Text): 05/12/17 12:28 patient seen and examined at bedside tolerating feeds well, better than anytime prior added reglan to prevent any further emesis white count remains high no other issues at this time CCU Objective - Vital Signs / Intake & Output Vital Signs (Last 4 hours): Vital Signs Pulse Resp BP Pulse Ox 05/12/17 10:34 104/67 05/12/17 09:58 104/67 05/12/17 09:00 141 H 33 H 97 05/12/17 08:59 136 H 22 106/70 98 Intake and Output (Last 8hrs): Intake & Output 05/11/17 05/12/17 05/12/17 22:59 06:59 14:59 Intake Total 250 500 845 Balance 250 500 845 Weight 126 lb 3 oz Intake: Intake, IV Amount 100 300 650 Left Distal Port PICC 400 Left PICC Proximal Port 100 300 250 Tube Feeding 150 200 115 Other 80 Other: # Voids Urine, Voided 1 - Physical Exam Head: Positive for: Atraumatic, Normocephalic. Negative for: Tenderness Pupils: Positive for: PERRL Extroacular Muscles: Positive for: EOMI Mouth: Positive for: Moist Mucous Membranes. Negative for: Dry, Drooling Nose (External): Positive for: Other (NGT in place) Nose (Internal): Positive for: Normal Inspection, Moist Neck: Positive for: Other (trach). Negative for: JVD, Lymphadenopathy Respiratory/Chest: Positive for: Clear to Auscultation. Negative for: Respiratory Distress, Accessory Muscle Use Cardiovascular: Positive for: Regular Rate and Rhythm, Normal S1, S2 Abdomen: Positive for: Tenderness (mild tenderness of palpation. patient continues to move her arms towards hands on palpation), Normal Bowel Sounds. Negative for: Distention, Peritoneal Signs, Guarding Upper Extremity: Positive for: Normal Inspection, Normal ROM, Capillary Refill < 2s. Negative for: Edema Lower Extremity: Positive for: Normal Inspection. Negative for: Edema Neurological: Positive for: CN II-XII Intact Skin: Positive for: Warm, Pale Psychiatric: Positive for: Alert - Medications Active Medications: Active Medications Generic Name Dose Route Start Last Admin Trade Name Freq PRN Reason Stop Dose Admin Acetaminophen 650 mg 04/28/17 20:11 05/09/17 12:31 Tylenol 650mg/20.3ml Solution Ud PO 650 mg Q4 PRN Administration Temperature Ascorbic Acid 500 mg 05/12/17 11:15 05/12/17 12:00 Vitamin C 500 Mg Tab PO 500 mg DAILY AGUSTIN Administration Bisacodyl 10 mg 05/07/17 13:35 05/08/17 06:02 Dulcolax AR 10 mg Q24H PRN Administration Constipation Ergocalciferol 1 cap 05/12/17 11:15 Drisdol 50,000 Intl Units Cap PO QWK AGUSTIN Heparin Sodium (Porcine) 5,000 units 05/10/17 14:00 05/12/17 05:11 Heparin SC 5,000 units Q8 AGUSTIN Administration Levetiracetam 500 mg/ Sodium 105 mls @ 420 mls/hr 05/03/17 22:00 05/12/17 09: 05 Chloride IVPB 420 mls/hr Q12H AGUSTIN Administration Linezolid 600 mg in 300 mls @ 200 mls/hr 05/04/17 22:00 05/12/17 10:35 Zyvox 600mg/300ml D5w IVPB 200 mls/hr Q12 AGUSTIN Administration Metoclopramide HCl 10 mg 05/12/17 11:00 05/12/17 12:00 Reglan IVP 10 mg DAILY AGUSTIN Administration Metoprolol Tartrate 5 mg 05/06/17 10:27 05/12/17 04:45 Lopressor IVP 5 mg Q6H PRN Administration Systolic Blood Pressure Metoprolol Tartrate 75 mg 05/06/17 14:35 05/12/17 10:34 Lopressor PO 75 mg BID AGUSTIN Administration Multivitamins/Vitamin C 5 ml 04/30/17 12:00 05/12/17 09:14 Multi-Delyn Liquid PO 5 ml DAILY AGUSTIN Administration Pantoprazole Sodium 20 mg 04/19/17 18:00 05/12/17 09:14 Protonix Inj IVP 20 mg BID AGUSTIN Administration Quetiapine Fumarate 100 mg 05/07/17 10:17 Seroquel PO BID AGUSTIN - Patient Studies Lab Studies: Lab Studies 05/12/17 05/12/17 05/12/17 Range/Units 11:56 07:38 07:38 WBC 24.3 H D RBC 3.43 L Hgb 9.9 L Hct 28.6 L MCV 83.4 MCH 28.8 MCHC 34.6 RDW 15.0 H Plt Count 439 H MPV 7.8 Neut % (Auto) 77.5 H Lymph % (Auto) 12.0 L Charles % (Auto) 9.1 Eos % (Auto) 1.0 Baso % (Auto) 0.4 Neut # (Auto) 18.8 H Lymph # (Auto) 2.9 Charles # (Auto) 2.2 H Eos # (Auto) 0.2 Baso # (Auto) 0.1 Sodium 131 L (132-148) mmol/L Potassium 4.2 (3.6-5.2) mmol/L Chloride 97 L (98-107) mmol/L Carbon Dioxide 24 (22-30) mmol/L Anion Gap 14 (10-20) BUN 8 (7-17) mg/dL Creatinine 0.6 L (0.7-1.2) mg/dL Est GFR ( Amer) > 60 Est GFR (Non-Af Amer) > 60 POC Glucose (mg/dL) 135 H (65-110) mg/dL Random Glucose 131 H (65-105) mg/dL Calcium 9.4 (8.6-10.4) mg/dl Phosphorus 3.9 (2.5-4.5) mg/dL Magnesium 1.5 L (1.6-2.3) mg/dL Total Bilirubin 0.6 (0.2-1.3) mg/dL AST 29 (14-36) U/L ALT 44 (9-52) U/L Alkaline Phosphatase 311 H (38-126) U/L Total Protein 7.3 (6.3-8.3) g/dL Albumin 3.5 (3.5-5.0) g/dL Globulin 3.8 (2.2-3.9) gm/dL Albumin/Globulin Ratio 0.9 L (1.0-2.1) 05/12/17 05/12/17 05/11/17 Range/Units 06:17 06:12 23:33 WBC Cancelled RBC Cancelled Hgb Cancelled Hct Cancelled MCV Cancelled MCH Cancelled MCHC Cancelled RDW Cancelled Plt Count Cancelled MPV Cancelled Neut % (Auto) Cancelled Lymph % (Auto) Cancelled Charles % (Auto) Cancelled Eos % (Auto) Cancelled Baso % (Auto) Cancelled Neut # (Auto) Cancelled Lymph # (Auto) Cancelled Charles # (Auto) Cancelled Eos # (Auto) Cancelled Baso # (Auto) Cancelled Sodium (132-148) mmol/L Potassium (3.6-5.2) mmol/L Chloride (98-107) mmol/L Carbon Dioxide (22-30) mmol/L Anion Gap (10-20) BUN (7-17) mg/dL Creatinine (0.7-1.2) mg/dL Est GFR ( Amer) Est GFR (Non-Af Amer) POC Glucose (mg/dL) 94 115 H (65-110) mg/dL Random Glucose (65-105) mg/dL Calcium (8.6-10.4) mg/dl Phosphorus (2.5-4.5) mg/dL Magnesium (1.6-2.3) mg/dL Total Bilirubin (0.2-1.3) mg/dL AST (14-36) U/L ALT (9-52) U/L Alkaline Phosphatase (38-126) U/L Total Protein (6.3-8.3) g/dL Albumin (3.5-5.0) g/dL Globulin (2.2-3.9) gm/dL Albumin/Globulin Ratio (1.0-2.1) 05/11/17 Range/Units 17:49 WBC RBC Hgb Hct MCV MCH MCHC RDW Plt Count MPV Neut % (Auto) Lymph % (Auto) Charles % (Auto) Eos % (Auto) Baso % (Auto) Neut # (Auto) Lymph # (Auto) Charles # (Auto) Eos # (Auto) Baso # (Auto) Sodium (132-148) mmol/L Potassium (3.6-5.2) mmol/L Chloride (98-107) mmol/L Carbon Dioxide (22-30) mmol/L Anion Gap (10-20) BUN (7-17) mg/dL Creatinine (0.7-1.2) mg/dL Est GFR ( Amer) Est GFR (Non-Af Amer) POC Glucose (mg/dL) 104 (65-110) mg/dL Random Glucose (65-105) mg/dL Calcium (8.6-10.4) mg/dl Phosphorus (2.5-4.5) mg/dL Magnesium (1.6-2.3) mg/dL Total Bilirubin (0.2-1.3) mg/dL AST (14-36) U/L ALT (9-52) U/L Alkaline Phosphatase (38-126) U/L Total Protein (6.3-8.3) g/dL Albumin (3.5-5.0) g/dL Globulin (2.2-3.9) gm/dL Albumin/Globulin Ratio (1.0-2.1) Laboratory Results - last 24 hr 05/11/17 05/11/17 05/12/17 17:49 23:33 06:12 WBC RBC Hgb Hct MCV MCH MCHC RDW Plt Count MPV Neut % (Auto) Lymph % (Auto) Charles % (Auto) Eos % (Auto) Baso % (Auto) Neut # (Auto) Lymph # (Auto) Charles # (Auto) Eos # (Auto) Baso # (Auto) Sodium Potassium Chloride Carbon Dioxide Anion Gap BUN Creatinine Est GFR ( Amer) Est GFR (Non-Af Amer) POC Glucose (mg/dL) 104 115 H 94 Random Glucose Calcium Phosphorus Magnesium Total Bilirubin AST ALT Alkaline Phosphatase Total Protein Albumin Globulin Albumin/Globulin Ratio 05/12/17 05/12/17 05/12/17 06:17 07:38 07:38 WBC Cancelled 24.3 H D RBC Cancelled 3.43 L Hgb Cancelled 9.9 L Hct Cancelled 28.6 L MCV Cancelled 83.4 MCH Cancelled 28.8 MCHC Cancelled 34.6 RDW Cancelled 15.0 H Plt Count Cancelled 439 H MPV Cancelled 7.8 Neut % (Auto) Cancelled 77.5 H Lymph % (Auto) Cancelled 12.0 L Charles % (Auto) Cancelled 9.1 Eos % (Auto) Cancelled 1.0 Baso % (Auto) Cancelled 0.4 Neut # (Auto) Cancelled 18.8 H Lymph # (Auto) Cancelled 2.9 Charles # (Auto) Cancelled 2.2 H Eos # (Auto) Cancelled 0.2 Baso # (Auto) Cancelled 0.1 Sodium 131 L Potassium 4.2 Chloride 97 L Carbon Dioxide 24 Anion Gap 14 BUN 8 Creatinine 0.6 L Est GFR ( Amer) > 60 Est GFR (Non-Af Amer) > 60 POC Glucose (mg/dL) Random Glucose 131 H Calcium 9.4 Phosphorus 3.9 Magnesium 1.5 L Total Bilirubin 0.6 AST 29 ALT 44 Alkaline Phosphatase 311 H Total Protein 7.3 Albumin 3.5 Globulin 3.8 Albumin/Globulin Ratio 0.9 L 05/12/17 11:56 WBC RBC Hgb Hct MCV MCH MCHC RDW Plt Count MPV Neut % (Auto) Lymph % (Auto) Charles % (Auto) Eos % (Auto) Baso % (Auto) Neut # (Auto) Lymph # (Auto) Charles # (Auto) Eos # (Auto) Baso # (Auto) Sodium Potassium Chloride Carbon Dioxide Anion Gap BUN Creatinine Est GFR ( Amer) Est GFR (Non-Af Amer) POC Glucose (mg/dL) 135 H Random Glucose Calcium Phosphorus Magnesium Total Bilirubin AST ALT Alkaline Phosphatase Total Protein Albumin Globulin Albumin/Globulin Ratio Fingerstick Blood Sugar Results: 91 Assessment/Plan - Assessment and Plan (Free Text) Assessment: 36F s/p gastrojej for possible SMA< persistent vomiting, J tube Plan: Psych: Schizophrenia - Seroquel 100mg PO BID increase to 200mg - Ativan 0.5mg IVP q6h PRN for trach Neuro: Seizure disorder - Keppra 500mg @ 420ml/hr IVPD q12h - check lactate dehydrogenase and CPK to check for possible seizure activity overnight accompanying acutely increased WBC Cards: Tachycardia (persistent), HTN - Lopressor 75mg BID; 5mg IV PRN admin'd this AM - Magnesium sulfate 1g in 100ml D5W IVPB x1 - D/C'd Pulm: PRVC ventilator - CPAP 5ps 10FiO2 40%, vent settings back to PRVC 116 tv 450 FiO2 40% p+5 (per nurse note) - O2 via Trach Collar; add T for inline suction for trach GI: Biliary emesis, constipation - J-tube re-inserted by surgery removed by pt previous PM - TPN - Feeding to resume at 10cc/hr - Dulcolax 10mg AR q24h - Metoclopramide 10mg IVP qd Renal: UTI (g+ cocci in urine 05/02) - Cefepime 1g in 5% dextrose water @ 100ml/hr IVPD qd - Linezolid 600mg in D5W 300ml PPx: - Drisdol 50,000 IU 1cap PO qwk - VitC 500mg tab PO qd - Multivitamin: 5ml PO qd - Heparin 5000 U SC q8 - Protonix 20mg IVP BID <Najma Granger - Last Filed: 05/12/17 20:25> CCU Objective - Vital Signs / Intake & Output Vital Signs (Last 4 hours): Vital Signs Pulse Resp BP Pulse Ox 05/12/17 19:00 109 H 13 100 05/12/17 18:58 109 H 22 118/84 100 05/12/17 18:00 96 H 21 100 05/12/17 17:58 101 H 28 H 113/81 100 05/12/17 17:28 109/79 05/12/17 17:00 134 H 12 100 Intake and Output (Last 8hrs): Intake & Output 05/12/17 05/12/17 05/12/17 06:59 14:59 22:59 Intake Total 500 1015 170 Output Total 200 Balance 500 1015 -30 Weight 126 lb 3 oz Intake: Intake, IV Amount 300 650 Left Distal Port PICC 400 Left PICC Proximal Port 300 250 Tube Feeding 200 235 170 Other 130 Output: Urine 200 Urine, Voided 200 Other: # Voids Urine, Voided 1 # Bowel Movements 1 - Medications Active Medications: Active Medications Generic Name Dose Route Start Last Admin Trade Name Freq PRN Reason Stop Dose Admin Acetaminophen 650 mg 04/28/17 20:11 05/09/17 12:31 Tylenol 650mg/20.3ml Solution Ud PO 650 mg Q4 PRN Administration Temperature Ascorbic Acid 500 mg 05/12/17 11:15 05/12/17 12:00 Vitamin C 500 Mg Tab PO 500 mg DAILY AGUSTIN Administration Bisacodyl 10 mg 05/07/17 13:35 05/08/17 06:02 Dulcolax AR 10 mg Q24H PRN Administration Constipation Ergocalciferol 1 cap 05/12/17 11:15 05/12/17 13:21 Drisdol 50,000 Intl Units Cap PO 1 cap QWK AGUSTIN Administration Heparin Sodium (Porcine) 5,000 units 05/10/17 14:00 05/12/17 15:46 Heparin SC 5,000 units Q8 AGUSTIN Administration Levetiracetam 500 mg/ Sodium 105 mls @ 420 mls/hr 05/03/17 22:00 05/12/17 09: 05 Chloride IVPB 420 mls/hr Q12H AGUSTIN Administration Linezolid 600 mg in 300 mls @ 200 mls/hr 05/04/17 22:00 05/12/17 10:35 Zyvox 600mg/300ml D5w IVPB 200 mls/hr Q12 AGUSTIN Administration Metoclopramide HCl 10 mg 05/12/17 11:00 05/12/17 12:00 Reglan IVP 10 mg DAILY AGUSTIN Administration Metoprolol Tartrate 5 mg 05/06/17 10:27 05/12/17 04:45 Lopressor IVP 5 mg Q6H PRN Administration Systolic Blood Pressure Metoprolol Tartrate 75 mg 05/06/17 14:35 05/12/17 17:28 Lopressor PO 75 mg BID AGUSTIN Administration Multivitamins/Vitamin C 5 ml 04/30/17 12:00 05/12/17 09:14 Multi-Delyn Liquid PO 5 ml DAILY AGUSTIN Administration Pantoprazole Sodium 20 mg 04/19/17 18:00 05/12/17 17:29 Protonix Inj IVP 20 mg BID AGUSTIN Administration Quetiapine Fumarate 200 mg 05/12/17 12:30 Seroquel PO BID AGUSTIN - Patient Studies Lab Studies: Lab Studies 05/12/17 05/12/17 05/12/17 Range/Units 17:36 11:56 07:38 WBC RBC Hgb Hct MCV MCH MCHC RDW Plt Count MPV Neut % (Auto) Lymph % (Auto) Charles % (Auto) Eos % (Auto) Baso % (Auto) Neut # (Auto) Lymph # (Auto) Charles # (Auto) Eos # (Auto) Baso # (Auto) Differential Comment Sodium 131 L (132-148) mmol/L Potassium 4.2 (3.6-5.2) mmol/L Chloride 97 L (98-107) mmol/L Carbon Dioxide 24 (22-30) mmol/L Anion Gap 14 (10-20) BUN 8 (7-17) mg/dL Creatinine 0.6 L (0.7-1.2) mg/dL Est GFR ( Amer) > 60 Est GFR (Non-Af Amer) > 60 POC Glucose (mg/dL) 113 H 135 H (65-110) mg/dL Random Glucose 131 H (65-105) mg/dL Calcium 9.4 (8.6-10.4) mg/dl Phosphorus 3.9 (2.5-4.5) mg/dL Magnesium 1.5 L (1.6-2.3) mg/dL Total Bilirubin 0.6 (0.2-1.3) mg/dL AST 29 (14-36) U/L ALT 44 (9-52) U/L Alkaline Phosphatase 311 H (38-126) U/L Total Protein 7.3 (6.3-8.3) g/dL Albumin 3.5 (3.5-5.0) g/dL Globulin 3.8 (2.2-3.9) gm/dL Albumin/Globulin Ratio 0.9 L (1.0-2.1) 05/12/17 05/12/17 05/12/17 Range/Units 07:38 06:17 06:12 WBC 24.3 H D Cancelled RBC 3.43 L Cancelled Hgb 9.9 L Cancelled Hct 28.6 L Cancelled MCV 83.4 Cancelled MCH 28.8 Cancelled MCHC 34.6 Cancelled RDW 15.0 H Cancelled Plt Count 439 H Cancelled MPV 7.8 Cancelled Neut % (Auto) 77.5 H Cancelled Lymph % (Auto) 12.0 L Cancelled Charles % (Auto) 9.1 Cancelled Eos % (Auto) 1.0 Cancelled Baso % (Auto) 0.4 Cancelled Neut # (Auto) 18.8 H Cancelled Lymph # (Auto) 2.9 Cancelled Charles # (Auto) 2.2 H Cancelled Eos # (Auto) 0.2 Cancelled Baso # (Auto) 0.1 Cancelled Differential Comment Sodium (132-148) mmol/L Potassium (3.6-5.2) mmol/L Chloride (98-107) mmol/L Carbon Dioxide (22-30) mmol/L Anion Gap (10-20) BUN (7-17) mg/dL Creatinine (0.7-1.2) mg/dL Est GFR ( Amer) Est GFR (Non-Af Amer) POC Glucose (mg/dL) 94 (65-110) mg/dL Random Glucose (65-105) mg/dL Calcium (8.6-10.4) mg/dl Phosphorus (2.5-4.5) mg/dL Magnesium (1.6-2.3) mg/dL Total Bilirubin (0.2-1.3) mg/dL AST (14-36) U/L ALT (9-52) U/L Alkaline Phosphatase (38-126) U/L Total Protein (6.3-8.3) g/dL Albumin (3.5-5.0) g/dL Globulin (2.2-3.9) gm/dL Albumin/Globulin Ratio (1.0-2.1) 05/11/17 Range/Units 23:33 WBC RBC Hgb Hct MCV MCH MCHC RDW Plt Count MPV Neut % (Auto) Lymph % (Auto) Charles % (Auto) Eos % (Auto) Baso % (Auto) Neut # (Auto) Lymph # (Auto) Charles # (Auto) Eos # (Auto) Baso # (Auto) Differential Comment Sodium (132-148) mmol/L Potassium (3.6-5.2) mmol/L Chloride (98-107) mmol/L Carbon Dioxide (22-30) mmol/L Anion Gap (10-20) BUN (7-17) mg/dL Creatinine (0.7-1.2) mg/dL Est GFR ( Amer) Est GFR (Non-Af Amer) POC Glucose (mg/dL) 115 H (65-110) mg/dL Random Glucose (65-105) mg/dL Calcium (8.6-10.4) mg/dl Phosphorus (2.5-4.5) mg/dL Magnesium (1.6-2.3) mg/dL Total Bilirubin (0.2-1.3) mg/dL AST (14-36) U/L ALT (9-52) U/L Alkaline Phosphatase (38-126) U/L Total Protein (6.3-8.3) g/dL Albumin (3.5-5.0) g/dL Globulin (2.2-3.9) gm/dL Albumin/Globulin Ratio (1.0-2.1) Laboratory Results - last 24 hr 01/31/18 02/01/18 02/01/18 23:33 06:12 06:17 WBC Cancelled RBC Cancelled Hgb Cancelled Hct Cancelled MCV Cancelled MCH Cancelled MCHC Cancelled RDW Cancelled Plt Count Cancelled MPV Cancelled Neut % (Auto) Cancelled Lymph % (Auto) Cancelled Charles % (Auto) Cancelled Eos % (Auto) Cancelled Baso % (Auto) Cancelled Neut # (Auto) Cancelled Lymph # (Auto) Cancelled Charles # (Auto) Cancelled Eos # (Auto) Cancelled Baso # (Auto) Cancelled Differential Comment Sodium Potassium Chloride Carbon Dioxide Anion Gap BUN Creatinine Est GFR ( Amer) Est GFR (Non-Af Amer) POC Glucose (mg/dL) 115 H 94 Random Glucose Calcium Phosphorus Magnesium Total Bilirubin AST ALT Alkaline Phosphatase Total Protein Albumin Globulin Albumin/Globulin Ratio 05/12/17 05/12/17 05/12/17 07:38 07:38 11:56 WBC 24.3 H D RBC 3.43 L Hgb 9.9 L Hct 28.6 L MCV 83.4 MCH 28.8 MCHC 34.6 RDW 15.0 H Plt Count 439 H MPV 7.8 Neut % (Auto) 77.5 H Lymph % (Auto) 12.0 L Charles % (Auto) 9.1 Eos % (Auto) 1.0 Baso % (Auto) 0.4 Neut # (Auto) 18.8 H Lymph # (Auto) 2.9 Charles # (Auto) 2.2 H Eos # (Auto) 0.2 Baso # (Auto) 0.1 Differential Comment Sodium 131 L Potassium 4.2 Chloride 97 L Carbon Dioxide 24 Anion Gap 14 BUN 8 Creatinine 0.6 L Est GFR ( Amer) > 60 Est GFR (Non-Af Amer) > 60 POC Glucose (mg/dL) 135 H Random Glucose 131 H Calcium 9.4 Phosphorus 3.9 Magnesium 1.5 L Total Bilirubin 0.6 AST 29 ALT 44 Alkaline Phosphatase 311 H Total Protein 7.3 Albumin 3.5 Globulin 3.8 Albumin/Globulin Ratio 0.9 L 05/12/17 17:36 WBC RBC Hgb Hct MCV MCH MCHC RDW Plt Count MPV Neut % (Auto) Lymph % (Auto) Charles % (Auto) Eos % (Auto) Baso % (Auto) Neut # (Auto) Lymph # (Auto) Charles # (Auto) Eos # (Auto) Baso # (Auto) Differential Comment Sodium Potassium Chloride Carbon Dioxide Anion Gap BUN Creatinine Est GFR ( Amer) Est GFR (Non-Af Amer) POC Glucose (mg/dL) 113 H Random Glucose Calcium Phosphorus Magnesium Total Bilirubin AST ALT Alkaline Phosphatase Total Protein Albumin Globulin Albumin/Globulin Ratio Assessment/Plan - Assessment and Plan (Free Text) Plan: Patient seen and examined with above resident. Patient remains hemodynamically stable, tolerating Jtube -continue current management with trach collar - Date & Time Date: 05/12/17 Time: 20:25
[2017-05-12] MEDS: Ergocalciferol 50,000 Intl Units Cap PO SCH (13:21)
[2017-05-13] MEDS: Metoprolol 1 mg/ml Inj IVP PRN ×2 (04:42→12:21)
--- NOTE | 2017-05-13 07:04 | CP.PCM.PN ---
Subjective - Date & Time of Evaluation Date of Evaluation: 05/13/17 Time of Evaluation: 07:04 - Subjective Subjective: Medicine progress note Dr. Reyes's service Patient was seen and examined at bedside in the morning. Patient did not appear in distress. As per nurse, no vomiting episodes overnight or in the morning. Patients bed/linens were soiled. Review of systems not obtained due to patient' s condition. Objective - Vital Signs/Intake and Output Vital Signs (last 24 hours): Temp Pulse Resp BP Pulse Ox 97.6 F 129 H 13 118/84 100 05/13/17 00:00 05/13/17 01:00 05/12/17 19:00 05/12/17 18:58 05/12/17 19:00 Intake and Output: 05/13/17 05/13/17 06:59 18:59 Intake Total 35 Balance 35 - Medications Medications: Current Medications Acetaminophen (Tylenol 650mg/20.3ml Solution Ud) 650 mg PO Q4 PRN PRN Reason: Temperature Last Admin: 05/09/17 12:31 Dose: 650 mg Ascorbic Acid (Vitamin C 500 Mg Tab) 500 mg PO DAILY [facility] Last Admin: 05/12/17 12:00 Dose: 500 mg Bisacodyl (Dulcolax) 10 mg OH Q24H PRN PRN Reason: Constipation Last Admin: 05/08/17 06:02 Dose: 10 mg Ergocalciferol (Drisdol 50,000 Intl Units Cap) 1 cap PO QWK [facility] Last Admin: 05/12/17 13:21 Dose: 1 cap Heparin Sodium (Porcine) (Heparin) 5,000 units SC Q8 [facility] Last Admin: 05/13/17 05:48 Dose: 5,000 units Levetiracetam 500 mg/ Sodium (Chloride) 105 mls @ 420 mls/hr IVPB Q12H [facility] Last Admin: 05/12/17 21:06 Dose: 420 mls/hr Linezolid (Zyvox 600mg/300ml D5w) 600 mg in 300 mls @ 200 mls/hr IVPB Q12 [facility] Last Admin: 05/12/17 21:30 Dose: 200 mls/hr Metoclopramide HCl (Reglan) 10 mg IVP DAILY [facility] Last Admin: 05/12/17 12:00 Dose: 10 mg Metoprolol Tartrate (Lopressor) 5 mg IVP Q6H PRN PRN Reason: Systolic Blood Pressure Last Admin: 05/13/17 04:42 Dose: 5 mg Metoprolol Tartrate (Lopressor) 75 mg PO BID [facility] Last Admin: 05/12/17 17:28 Dose: 75 mg Multivitamins/Vitamin C (Multi-Delyn Liquid) 5 ml PO DAILY [facility] Last Admin: 05/12/17 09:14 Dose: 5 ml Pantoprazole Sodium (Protonix Inj) 20 mg IVP BID [facility] Last Admin: 05/12/17 17:29 Dose: 20 mg Quetiapine Fumarate (Seroquel) 200 mg PO BID [facility] - Labs Labs: 05/12/17 07:38 05/12/17 07:38 PT 14.0 SECONDS (9.7-12.2) H 04/25/17 06:25 INR 1.2 04/25/17 06:25 APTT 32 SECONDS (21-34) 04/25/17 06:25 - Constitutional Appears: No Acute Distress, Chronically Ill - Head Exam Head Exam: ATRAUMATIC, NORMAL INSPECTION - Eye Exam Eye Exam: EOMI, Normal appearance - ENT Exam ENT Exam: Mucous Membranes Dry (tracheostomy) - Respiratory Exam Respiratory Exam: Rhonchi. absent: Clear to Ausculation Bilateral, Wheezes, Respiratory Distress - Cardiovascular Exam Cardiovascular Exam: Tachycardia, +S1, +S2 - GI/Abdominal Exam GI & Abdominal Exam: Soft, Normal Bowel Sounds - Extremities Exam Extremities Exam: absent: Pedal Edema - Neurological Exam Neurological Exam: Alert, Awake - Psychiatric Exam Psychiatric exam: Flat Affect - Skin Skin Exam: Dry, Normal Color, Warm Assessment and Plan - Assessment and Plan (Free Text) Plan: Sepsis Pt off pressors Dr. 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 Possible fatty infiltration vs parenchymal disease. Sludge. Left pleural effusoin. Small ascites. Vomiting Reglan Continue to monitor Acute Kidney injury Resolved Dr. Saenz, Nephrology lifestyle consultant Bacteruria ID: Urine Cx (05/02/17) Gram + cocci in the urine Zyvox Fluconazole 200mg IV Prophylaxis: Protonix 20mg IB PO BID Heparin 5000 u Q8H SC VitC 500mg PO daily Multivitamin 5ml PO daily Drisdol 50,000iu 1cap PO qweek Dispo: Case management applying for placement at rehab facility. Discussed with attending, Dr. Reyes
[2017-05-13] MEDS ORDERED: Magnesium Sulfate 1 gm in D5W 1 GM/100 ML BAG IVPB ONE (10:48)
[2017-05-13] MEDS ORDERED: Sodium Chloride 0.9% 1,000 ML IV ONE (11:23)
[2017-05-13] MEDS ORDERED: Lactated Ringer's 1,000 ML IV ONE (11:23)
[2017-05-13] MEDS: levETIRAcetam 500 MG in Sodium Chloride 0.9% 100 ML IVPB SCH ×2 (12:11→21:23)
[2017-05-13] MEDS: Multiple Vitamins Oral Solution PO SCH (12:22)
[2017-05-13] MEDS: Linezolid 600 mg in D5W 300 ml 600 MG/300 ML BAG IVPB SCH (12:24)
--- NOTE | 2017-05-13 13:26 | RAD ---
HISTORY: eval lung ?infiltrate COMPARISON: 05/10/2017 FINDINGS: LUNGS: No infiltrate. Please note that the left lung apex is obscured by the patient's mandible. PLEURA: No significant pleural effusion identified, no pneumothorax apparent. CARDIOVASCULAR: Normal heart size. Tunneled right central venous dialysis catheter. Nasogastric tube. Tracheostomy tube. OSSEOUS STRUCTURES: No significant abnormalities. VISUALIZED UPPER ABDOMEN: Normal. OTHER FINDINGS: None. IMPRESSION: No acute infiltrate.
--- NOTE | 2017-05-13 13:46 | CP.PCM.PN ---
Subjective - Date & Time of Evaluation Date of Evaluation: 05/13/17 Time of Evaluation: 13:44 - Subjective Subjective: Ms Rivera was seen and examined at the bedside. She is awake, non verbal, unable to follow commands, but moves all her extremities spontaneously. She remains on bilateral hand mitten for patient safety. She has the left hand tremor at rest. Her heart rate is elevated 150's on antiarrhythmics medication. There was no untoward events overnight. Objective - Vital Signs/Intake and Output Vital Signs (last 24 hours): Temp Pulse Resp BP Pulse Ox 97.8 F 148 H 38 H 117/77 100 05/13/17 04:00 05/13/17 04:00 05/13/17 04:00 05/13/17 04:00 05/12/17 19:00 Intake and Output: 05/13/17 05/13/17 06:59 18:59 Intake Total 855 Output Total 500 Balance 355 - Medications Medications: Current Medications Acetaminophen (Tylenol 650mg/20.3ml Solution Ud) 650 mg PO Q4 PRN PRN Reason: Temperature Last Admin: 05/09/17 12:31 Dose: 650 mg Ascorbic Acid (Vitamin C 500 Mg Tab) 500 mg PO DAILY [facility] Last Admin: 05/13/17 12:23 Dose: 500 mg Bisacodyl (Dulcolax) 10 mg [place] Q24H PRN PRN Reason: Constipation Last Admin: 05/08/17 06:02 Dose: 10 mg Ergocalciferol (Drisdol 50,000 Intl Units Cap) 1 cap PO QWK [facility] Last Admin: 05/12/17 13:21 Dose: 1 cap Heparin Sodium (Porcine) (Heparin) 5,000 units SC Q8 [facility] Last Admin: 05/13/17 05:48 Dose: 5,000 units Levetiracetam 500 mg/ Sodium (Chloride) 105 mls @ 420 mls/hr IVPB Q12H [facility] Last Admin: 05/13/17 12:11 Dose: 420 mls/hr Linezolid (Zyvox 600mg/300ml D5w) 600 mg in 300 mls @ 200 mls/hr IVPB Q12 [facility] Last Admin: 05/13/17 12:24 Dose: 200 mls/hr Metoclopramide HCl (Reglan) 10 mg IVP DAILY [facility] Last Admin: 05/13/17 12:22 Dose: 10 mg Metoprolol Tartrate (Lopressor) 100 mg PO BID [facility] Metoprolol Tartrate (Lopressor) 5 mg IVP ONCE ONE Stop: 05/13/17 16:01 Metoprolol Tartrate (Lopressor) 5 mg IVP Q2 [facility] Multivitamins/Vitamin C (Multi-Delyn Liquid) 5 ml PO DAILY [facility] Last Admin: 05/13/17 12:22 Dose: 5 ml Pantoprazole Sodium (Protonix Inj) 20 mg IVP BID [facility] Last Admin: 05/13/17 12:22 Dose: 20 mg Quetiapine Fumarate (Seroquel) 200 mg PO BID [facility] - Labs Labs: 05/12/17 07:38 05/12/17 07:38 PT 14.0 SECONDS (9.7-12.2) H 04/25/17 06:25 INR 1.2 04/25/17 06:25 APTT 32 SECONDS (21-34) 04/25/17 06:25 - Constitutional Appears: No Acute Distress - Head Exam Head Exam: NORMAL INSPECTION - Neurological Exam Neurological Exam: Awake Neuro motor strength exam: Left Upper Extremity: 5, Right Upper Extremity: 5, Left Lower Extremity: 5, Right Lower Extremity: 5 Additional comments: Neurological examination unchanged from previous examination. Assessment and Plan (1) Focal seizure Assessment & Plan: Case discussed with Dr. Krueger, continue all current medical regimen. Recommend to treat any underlying infection and electrolytes abnormality. Status: Acute
[2017-05-13] MEDS ORDERED: Metoprolol 1 mg/ml Inj IVP ONE (16:00)
--- NOTE | 2017-05-13 16:24 | CP.PCM.PN ---
Subjective - Date & Time of Evaluation Date of Evaluation: 05/13/17 Time of Evaluation: 07:25 - Subjective Subjective: General Surgery Pt S&E, NAEO. Pt non verbal. No emesis per nursing, tolerating tube feeds. Objective - Vital Signs/Intake and Output Vital Signs (last 24 hours): Temp Pulse Resp BP Pulse Ox 97.8 F 148 H 38 H 117/77 100 05/13/17 04:00 05/13/17 04:00 05/13/17 04:00 05/13/17 04:00 05/12/17 19:00 Intake and Output: 05/13/17 05/13/17 06:59 18:59 Intake Total 855 Output Total 500 Balance 355 - Medications Medications: Current Medications Acetaminophen (Tylenol 650mg/20.3ml Solution Ud) 650 mg PO Q4 PRN PRN Reason: Temperature Last Admin: 05/09/17 12:31 Dose: 650 mg Ascorbic Acid (Vitamin C 500 Mg Tab) 500 mg PO DAILY [facility] Last Admin: 05/13/17 12:23 Dose: 500 mg Bisacodyl (Dulcolax) 10 mg [place] Q24H PRN PRN Reason: Constipation Last Admin: 05/08/17 06:02 Dose: 10 mg Ergocalciferol (Drisdol 50,000 Intl Units Cap) 1 cap PO QWK [facility] Last Admin: 05/12/17 13:21 Dose: 1 cap Heparin Sodium (Porcine) (Heparin) 5,000 units SC Q8 [facility] Last Admin: 05/13/17 05:48 Dose: 5,000 units Levetiracetam 500 mg/ Sodium (Chloride) 105 mls @ 420 mls/hr IVPB Q12H [facility] Last Admin: 05/13/17 12:11 Dose: 420 mls/hr Linezolid (Zyvox 600mg/300ml D5w) 600 mg in 300 mls @ 200 mls/hr IVPB Q12 [facility] Last Admin: 05/13/17 12:24 Dose: 200 mls/hr Metoclopramide HCl (Reglan) 10 mg IVP DAILY [facility] Last Admin: 05/13/17 12:22 Dose: 10 mg Metoprolol Tartrate (Lopressor) 100 mg PO BID [facility] Metoprolol Tartrate (Lopressor) 5 mg IVP Q2 PRN Multivitamins/Vitamin C (Multi-Delyn Liquid) 5 ml PO DAILY [facility] Last Admin: 05/13/17 12:22 Dose: 5 ml Pantoprazole Sodium (Protonix Inj) 20 mg IVP BID [facility] Last Admin: 05/13/17 12:22 Dose: 20 mg Quetiapine Fumarate (Seroquel) 200 mg PO BID [facility] - Labs Labs: 05/12/17 07:38 05/12/17 07:38 PT 14.0 SECONDS (9.7-12.2) H 04/25/17 06:25 INR 1.2 04/25/17 06:25 APTT 32 SECONDS (21-34) 04/25/17 06:25 - Constitutional Appears: Non-toxic, No Acute Distress - Head Exam Head Exam: ATRAUMATIC, NORMOCEPHALIC - Eye Exam Eye Exam: EOMI. absent: Scleral icterus - Neck Exam Additional comments: trach in place - Respiratory Exam Respiratory Exam: NORMAL BREATHING PATTERN. absent: Respiratory Distress - GI/Abdominal Exam GI & Abdominal Exam: Soft. absent: Distended, Firm, Guarding, Rigid, Tenderness Additional comments: feeding jejunostomy pink, viable Incision C/D/I - Neurological Exam Neurological Exam: Alert, Awake - Skin Skin Exam: Dry, Warm Assessment and Plan - Assessment and Plan (Free Text) Assessment: 36F s/p gastrojejunostomy w/ bypass and feeding jejunostomy POD#25 Plan: Feeding via J tube, increase as tolerated Notify surgery team prior to stopping J tube feeds Monitor for emesis Anti-emetics/Prokinetics PRN D/W Dr. Andrea Seay PGY4
--- NOTE | 2017-05-13 18:31 | CP.PCM.PN ---
Subjective - Date & Time of Evaluation Date of Evaluation: 05/13/17 Time of Evaluation: 08:00 - Subjective Subjective: tolerating feeds on trach collar no fever but wbc again elevated renal function improved IV cefepime was d/c'd CXR clear will repeat cultures of urine Objective - Vital Signs/Intake and Output Vital Signs (last 24 hours): Temp Pulse Resp BP Pulse Ox 98.4 F 119 H 14 118/82 100 05/13/17 16:00 05/13/17 16:00 05/13/17 16:00 05/13/17 16:00 05/13/17 16:00 Intake and Output: 05/13/17 05/13/17 06:59 18:59 Intake Total 855 Output Total 500 Balance 355 - Medications Medications: Current Medications Acetaminophen (Tylenol 650mg/20.3ml Solution Ud) 650 mg PO Q4 PRN PRN Reason: Temperature Last Admin: 05/09/17 12:31 Dose: 650 mg Ascorbic Acid (Vitamin C 500 Mg Tab) 500 mg PO DAILY [facility] Last Admin: 05/13/17 12:23 Dose: 500 mg Bisacodyl (Dulcolax) 10 mg [place] Q24H PRN PRN Reason: Constipation Last Admin: 05/08/17 06:02 Dose: 10 mg Ergocalciferol (Drisdol 50,000 Intl Units Cap) 1 cap PO QWK [facility] Last Admin: 05/12/17 13:21 Dose: 1 cap Heparin Sodium (Porcine) (Heparin) 5,000 units SC Q8 [facility] Last Admin: 05/13/17 16:36 Dose: 5,000 units Levetiracetam 500 mg/ Sodium (Chloride) 105 mls @ 420 mls/hr IVPB Q12H [facility] Last Admin: 05/13/17 12:11 Dose: 420 mls/hr Linezolid (Zyvox 600mg/300ml D5w) 600 mg in 300 mls @ 200 mls/hr IVPB Q12 [facility] Last Admin: 05/13/17 12:24 Dose: 200 mls/hr Metoclopramide HCl (Reglan) 10 mg IVP DAILY [facility] Last Admin: 05/13/17 12:22 Dose: 10 mg Metoprolol Tartrate (Lopressor) 100 mg PO BID [facility] Metoprolol Tartrate (Lopressor) 5 mg IVP Q2 PRN Multivitamins/Vitamin C (Multi-Delyn Liquid) 5 ml PO DAILY [facility] Last Admin: 05/13/17 12:22 Dose: 5 ml Pantoprazole Sodium (Protonix Inj) 20 mg IVP BID [facility] Last Admin: 05/13/17 12:22 Dose: 20 mg Quetiapine Fumarate (Seroquel) 200 mg PO BID [facility] - Labs Labs: 05/12/17 07:38 05/12/17 07:38 PT 14.0 SECONDS (9.7-12.2) H 04/25/17 06:25 INR 1.2 04/25/17 06:25 APTT 32 SECONDS (21-34) 04/25/17 06:25 Assessment and Plan (1) Acute pancreatitis Status: Resolved (2) Leucocytosis Status: Acute
[2017-05-14] MEDS: Metoprolol 1 mg/ml Inj IVP PRN ×6 (01:59→20:14)
--- NOTE | 2017-05-14 05:44 | CP.PCM.PN ---
Subjective - Date & Time of Evaluation Date of Evaluation: 05/14/17 Time of Evaluation: 05:10 - Subjective Subjective: General surgery progress note for Dr. Bishnu Rothman, PGY-1 Pt S & E at bedside this AM. Per nursing- pt with bilious output to ostomy bag, bilious secretions from tracheostomy site- tube feeds held overnight. No other events. Pt non-verbal. Objective - Vital Signs/Intake and Output Vital Signs (last 24 hours): Temp Pulse Resp BP Pulse Ox 98.5 F 113 H 22 114/80 100 05/14/17 00:00 05/14/17 00:00 05/14/17 00:00 05/14/17 00:00 05/14/17 00:00 Intake and Output: 05/13/17 05/14/17 18:59 06:59 Intake Total 1020 Output Total 50 Balance 970 - Medications Medications: Current Medications Acetaminophen (Tylenol 650mg/20.3ml Solution Ud) 650 mg PO Q4 PRN PRN Reason: Temperature Last Admin: 05/09/17 12:31 Dose: 650 mg Ascorbic Acid (Vitamin C 500 Mg Tab) 500 mg PO DAILY [facility] Last Admin: 05/13/17 12:23 Dose: 500 mg Bisacodyl (Dulcolax) 10 mg [place] Q24H PRN PRN Reason: Constipation Last Admin: 05/08/17 06:02 Dose: 10 mg Ergocalciferol (Drisdol 50,000 Intl Units Cap) 1 cap PO QWK [facility] Last Admin: 05/12/17 13:21 Dose: 1 cap Heparin Sodium (Porcine) (Heparin) 5,000 units SC Q8 [facility] Last Admin: 05/14/17 05:24 Dose: 5,000 units Levetiracetam 500 mg/ Sodium (Chloride) 105 mls @ 420 mls/hr IVPB Q12H [facility] Last Admin: 05/13/17 21:23 Dose: 420 mls/hr Metoclopramide HCl (Reglan) 10 mg IVP DAILY [facility] Last Admin: 05/13/17 12:22 Dose: 10 mg Metoprolol Tartrate (Lopressor) 100 mg PO BID [facility] Last Admin: 05/13/17 18:43 Dose: 100 mg Metoprolol Tartrate (Lopressor) 5 mg IVP Q2 PRN Last Admin: 05/14/17 01:59 Dose: 5 mg Multivitamins/Vitamin C (Multi-Delyn Liquid) 5 ml PO DAILY [facility] Last Admin: 05/13/17 12:22 Dose: 5 ml Pantoprazole Sodium (Protonix Inj) 20 mg IVP BID [facility] Last Admin: 05/13/17 18:43 Dose: 20 mg Quetiapine Fumarate (Seroquel) 200 mg PO BID [facility] - Labs Labs: 05/12/17 07:38 05/12/17 07:38 PT 14.0 SECONDS (9.7-12.2) H 04/25/17 06:25 INR 1.2 04/25/17 06:25 APTT 32 SECONDS (21-34) 04/25/17 06:25 - Constitutional Appears: Non-toxic, No Acute Distress - Head Exam Head Exam: ATRAUMATIC, NORMAL INSPECTION, NORMOCEPHALIC - Eye Exam Eye Exam: EOMI, Normal appearance - ENT Exam ENT Exam: Mucous Membranes Moist - Neck Exam Additional comments: tracheostomy with yellow secretions noted - Respiratory Exam Respiratory Exam: Rhonchi, NORMAL BREATHING PATTERN - Cardiovascular Exam Cardiovascular Exam: Tachycardia, +S1, +S2 - GI/Abdominal Exam GI & Abdominal Exam: Soft. absent: Firm, Guarding, Tenderness Additional comments: Ostomy bag with dark green liquid output, feeding tube in place; midline incision well healed - Neurological Exam Neurological Exam: Awake Additional comments: non verbal and trach'd - Psychiatric Exam Additional comments: unable to asses, non verbal - Skin Skin Exam: Dry, Intact, Normal Color, Warm Assessment and Plan - Assessment and Plan (Free Text) Assessment: 36F s/p gastrojejunostomy w/ bypass and feeding jejunostomy POD#26 Plan: Feeding via J tube, will try to re-start today as tolerated Notify surgery team prior to stopping J tube feeds Monitor for emesis Anti-emetics/Prokinetics PRN Plan to do contrast studies from stomach and tube on Tuesday DW Dr. Andrea Rothman, PGY-1
[2017-05-14 06:55] LABS: BASO # 0.1 K/uL (0.0-0.2); BASO % 0.4 % (0.0-2.0); EOS # 0.3 K/uL (0.0-0.7); EOS % 1.8 % (0.0-4.0); HEMOGLOBIN 9.6 g/dL (11.0-16.0); LYMPH # 3.2 K/uL (1.0-4.3); LYMPH % 16.5 % (20.0-40.0); MEAN CELL VOLUME 85.2 fL (81.0-99.0); MEAN CORPUSCULAR HEMOGLOBIN 29.2 pg (27.0-31.0); MEAN CORPUSCULAR HGB CONC 34.3 g/dL (33.0-37.0); MEAN PLATELET VOLUME 8.3 fL (7.2-11.7); MONO # 1.6 K/uL (0.0-0.8); MONO % 7.9 % (0.0-10.0); NEUT # 14.4 K/uL (1.8-7.0); NEUT % 73.4 % (50.0-75.0); NRBC % 0.1 % (0.0-2.0); RBC 3.27 Mil/uL (3.80-5.20); RED CELL DISTRIBUTION WIDTH 15.1 % (11.5-14.5); WHITE BLOOD COUNT 19.6 K/uL (4.8-10.8)
[2017-05-14 07:06] LABS: ALB/GLOB RATIO 0.9 (1.0-2.1); ALBUMIN 3.3 g/dL (3.5-5.0); ALT/SGPT 35 U/L (9-52); AST/SGOT 28 U/L (14-36); BLOOD UREA NITROGEN 8 mg/dL (7-17); CALCIUM 9.1 mg/dl (8.6-10.4); GFR AFRICAN-AMERICAN > 60; GFR NON-AFRICAN AMERICAN > 60
[2017-05-14] MEDS: levETIRAcetam 500 MG in Sodium Chloride 0.9% 100 ML IVPB SCH ×2 (10:04→21:53)
[2017-05-14] MEDS: Multiple Vitamins Oral Solution PO SCH (10:05)
--- NOTE | 2017-05-14 15:51 | CP.PCM.PN ---
Subjective - Date & Time of Evaluation Date of Evaluation: 05/14/17 Time of Evaluation: 15:42 - Subjective Subjective: Medicine progress note Dr. Reyes's service Patient was seen and examined at bedside in the morning. Patient did not appear in distress. As per nurse, no vomiting episodes overnight or in the morning. Review of systems not obtained due to patient's condition. Objective - Vital Signs/Intake and Output Vital Signs (last 24 hours): Temp Pulse Resp BP Pulse Ox 98.6 F 123 H 25 H 117/87 100 05/14/17 15:11 05/14/17 04:00 05/14/17 04:00 05/14/17 04:00 05/14/17 04:00 Intake and Output: 05/14/17 05/14/17 06:59 18:59 Intake Total 345 0 Output Total 400 1735 Balance -55 -1735 - Medications Medications: Current Medications Acetaminophen (Tylenol 650mg/20.3ml Solution Ud) 650 mg PO Q4 PRN PRN Reason: Temperature Last Admin: 05/09/17 12:31 Dose: 650 mg Ascorbic Acid (Vitamin C 500 Mg Tab) 500 mg PO DAILY [facility] Last Admin: 05/14/17 10:06 Dose: Not Given Bisacodyl (Dulcolax) 10 mg [place] Q24H PRN PRN Reason: Constipation Last Admin: 05/08/17 06:02 Dose: 10 mg Ergocalciferol (Drisdol 50,000 Intl Units Cap) 1 cap PO QWK [facility] Last Admin: 05/12/17 13:21 Dose: 1 cap Heparin Sodium (Porcine) (Heparin) 5,000 units SC Q8 [facility] Last Admin: 05/14/17 14:39 Dose: 5,000 units Levetiracetam 500 mg/ Sodium (Chloride) 105 mls @ 420 mls/hr IVPB Q12H [facility] Last Admin: 05/14/17 10:04 Dose: 420 mls/hr Metoclopramide HCl (Reglan) 10 mg IVP DAILY [facility] Last Admin: 05/14/17 10:06 Dose: 10 mg Metoprolol Tartrate (Lopressor) 100 mg PO BID [facility] Last Admin: 05/14/17 10:06 Dose: Not Given Metoprolol Tartrate (Lopressor) 5 mg IVP Q2 PRN Last Admin: 05/14/17 14:39 Dose: 5 mg Multivitamins/Vitamin C (Multi-Delyn Liquid) 5 ml PO DAILY [facility] Last Admin: 05/14/17 10:05 Dose: Not Given Pantoprazole Sodium (Protonix Inj) 20 mg IVP BID [facility] Last Admin: 05/14/17 10:05 Dose: 20 mg Quetiapine Fumarate (Seroquel) 200 mg PO BID [facility] - Labs Labs: 05/14/17 06:40 05/14/17 06:38 PT 14.0 SECONDS (9.7-12.2) H 04/25/17 06:25 INR 1.2 04/25/17 06:25 APTT 32 SECONDS (21-34) 04/25/17 06:25 - Additional Findings Additional findings: - Constitutional Appears: No Acute Distress, Chronically Ill - Head Exam Head Exam: ATRAUMATIC, NORMAL INSPECTION - Eye Exam Eye Exam: EOMI, Normal appearance - ENT Exam ENT Exam: Mucous Membranes Dry (tracheostomy) - Respiratory Exam Respiratory Exam: Rhonchi. absent: Clear to Ausculation Bilateral, Wheezes, Respiratory Distress - Cardiovascular Exam Cardiovascular Exam: Tachycardia, +S1, +S2 - GI/Abdominal Exam GI & Abdominal Exam: Soft, Normal Bowel Sounds; ostomy bag in place- yellow liquid output - Extremities Exam Extremities Exam: absent: Pedal Edema - Neurological Exam Neurological Exam: Alert, Awake - Psychiatric Exam Psychiatric exam: Flat Affect - Skin Skin Exam: Dry, Normal Color, Warm Assessment and Plan - Assessment and Plan (Free Text) Plan: Sepsis Pt off pressors Dr. 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 Possible fatty infiltration vs parenchymal disease. Sludge. Left pleural effusoin. Small ascites. Vomiting Reglan Continue to monitor Acute Kidney injury Resolved Dr. Saenz, Nephrology it systems analyst consultant Bacteruria ID: Urine Cx (05/02/17) Gram + cocci in the urine Zyvox Fluconazole 200mg IV Prophylaxis: Protonix 20mg IB PO BID Heparin 5000 u Q8H SC VitC 500mg PO daily Multivitamin 5ml PO daily Drisdol 50,000iu 1cap PO qweek Dispo: Case management applying for placement at rehab facility. Discussed with attending, Dr. Reyes
[2017-05-15] MEDS: Metoprolol 1 mg/ml Inj IVP PRN ×3 (00:48→06:39)
[2017-05-15 07:14] LABS: ALB/GLOB RATIO 0.9 (1.0-2.1); ALBUMIN 3.3 g/dL (3.5-5.0); ALT/SGPT 39 U/L (9-52); AST/SGOT 37 U/L (14-36); BLOOD UREA NITROGEN 10 mg/dL (7-17); CALCIUM 9.3 mg/dl (8.6-10.4); GFR AFRICAN-AMERICAN > 60; GFR NON-AFRICAN AMERICAN > 60
--- NOTE | 2017-05-15 08:29 | CP.PCM.PN ---
Subjective - Date & Time of Evaluation Date of Evaluation: 05/15/17 Time of Evaluation: 07:35 - Subjective Subjective: General Surgery Dr. Mendez Pt S&E @bedside. NAEO. Pt on 40% FiO2 via tracheostomy. Pt nonverbal, ROS unobtainable. Objective - Vital Signs/Intake and Output Vital Signs (last 24 hours): Temp Pulse Resp BP Pulse Ox 98.2 F 130 H 20 132/90 100 05/15/17 04:00 05/15/17 04:00 05/15/17 04:00 05/15/17 04:00 05/15/17 04:00 Intake and Output: 05/15/17 05/15/17 06:59 18:59 Intake Total 100 Balance 100 - Medications Medications: Current Medications Acetaminophen (Tylenol 650mg/20.3ml Solution Ud) 650 mg PO Q4 PRN PRN Reason: Temperature Last Admin: 05/09/17 12:31 Dose: 650 mg Ascorbic Acid (Vitamin C 500 Mg Tab) 500 mg PO DAILY [facility] Last Admin: 05/14/17 10:06 Dose: Not Given Bisacodyl (Dulcolax) 10 mg [place] Q24H PRN PRN Reason: Constipation Last Admin: 05/08/17 06:02 Dose: 10 mg Ergocalciferol (Drisdol 50,000 Intl Units Cap) 1 cap PO QWK [facility] Last Admin: 05/12/17 13:21 Dose: 1 cap Heparin Sodium (Porcine) (Heparin) 5,000 units SC Q8 [facility] Last Admin: 05/15/17 06:37 Dose: 5,000 units Levetiracetam 500 mg/ Sodium (Chloride) 105 mls @ 420 mls/hr IVPB Q12H [facility] Last Admin: 05/14/17 21:53 Dose: 420 mls/hr Metoclopramide HCl (Reglan) 10 mg IVP DAILY [facility] Last Admin: 05/14/17 10:06 Dose: 10 mg Metoprolol Tartrate (Lopressor) 100 mg PO BID [facility] Last Admin: 05/14/17 18:03 Dose: Not Given Metoprolol Tartrate (Lopressor) 5 mg IVP Q2 PRN Last Admin: 05/15/17 06:39 Dose: 5 mg Multivitamins/Vitamin C (Multi-Delyn Liquid) 5 ml PO DAILY [facility] Last Admin: 05/14/17 10:05 Dose: Not Given Pantoprazole Sodium (Protonix Inj) 20 mg IVP BID [facility] Last Admin: 05/14/17 18:48 Dose: 20 mg Quetiapine Fumarate (Seroquel) 200 mg PO BID [facility] Risperidone (Risperdal Tab) 0.25 mg PO DAILY PRN PRN Reason: Agitation Last Admin: 05/14/17 20:15 Dose: 0.25 mg - Labs Labs: 05/15/17 06:36 05/15/17 06:36 PT 14.0 SECONDS (9.7-12.2) H 04/25/17 06:25 INR 1.2 04/25/17 06:25 APTT 32 SECONDS (21-34) 04/25/17 06:25 - Constitutional Appears: Non-toxic, No Acute Distress - Head Exam Head Exam: NORMAL INSPECTION - Eye Exam Eye Exam: Normal appearance - ENT Exam ENT Exam: Mucous Membranes Moist - Neck Exam Additional comments: trach in place, functioning appropriately - Respiratory Exam Respiratory Exam: NORMAL BREATHING PATTERN. absent: Accessory Muscle Use, Respiratory Distress - Cardiovascular Exam Cardiovascular Exam: Tachycardia, REGULAR RHYTHM - GI/Abdominal Exam Additional comments: incision well approximated c/d/i J tube in place w/ colostomy bag coving. bowel sweat present in bag - Exam Additional comments: claros in place - Neurological Exam Neurological Exam: Alert, Awake - Psychiatric Exam Psychiatric exam: Flat Affect, Normal Mood - Skin Skin Exam: Dry, Normal Color, Warm Assessment and Plan - Assessment and Plan (Free Text) Assessment: 36 y/o F POD#27 s/p gastrojejunostomy w/ bypass and feeding jejunostomy - continue tube feeds - possible imaging on Tuesday to confirm placement if J tube - conr NGT to suction - cont anti-emetics - cont medical management per PMD/Critical Care Pt discussed w/ Dr. Andrea Peterson DO PGY2
[2017-05-15 08:57] LABS: BASO % 0.2 % (0.0-2.0); EOS # 0.3 K/uL (0.0-0.7); EOS % 1.8 % (0.0-4.0); HEMOGLOBIN 8.5 g/dL (11.0-16.0); LYMPH # 3.1 K/uL (1.0-4.3); LYMPH % 16.5 % (20.0-40.0); MEAN CELL VOLUME 84.5 fL (81.0-99.0); MEAN CORPUSCULAR HEMOGLOBIN 28.5 pg (27.0-31.0); MEAN CORPUSCULAR HGB CONC 33.7 g/dL (33.0-37.0); MEAN PLATELET VOLUME 7.8 fL (7.2-11.7); MONO # 1.5 K/uL (0.0-0.8); MONO % 7.8 % (0.0-10.0); NEUT % 73.7 % (50.0-75.0); RBC 2.99 Mil/uL (3.80-5.20); RED CELL DISTRIBUTION WIDTH 14.8 % (11.5-14.5)
--- NOTE | 2017-05-15 09:17 | CP.PCM.PN ---
Subjective - Date & Time of Evaluation Date of Evaluation: 05/15/17 Time of Evaluation: 09:10 - Subjective Subjective: Medicine progress note Dr. Reyes's service Patient was seen and examined at bedside in the morning. Patient did not appear in distress. No acute events overnight . Review of systems not obtained due to patient's condition. Objective - Vital Signs/Intake and Output Vital Signs (last 24 hours): Temp Pulse Resp BP Pulse Ox 98.4 F 115 H 22 127/82 99 05/15/17 08:00 05/15/17 08:00 05/15/17 08:00 05/15/17 08:00 05/15/17 08:00 Intake and Output: 05/15/17 05/15/17 06:59 18:59 Intake Total 100 Balance 100 - Medications Medications: Current Medications Acetaminophen (Tylenol 650mg/20.3ml Solution Ud) 650 mg PO Q4 PRN PRN Reason: Temperature Last Admin: 05/09/17 12:31 Dose: 650 mg Ascorbic Acid (Vitamin C 500 Mg Tab) 500 mg PO DAILY [facility] Last Admin: 05/14/17 10:06 Dose: Not Given Bisacodyl (Dulcolax) 10 mg [place] Q24H PRN PRN Reason: Constipation Last Admin: 05/08/17 06:02 Dose: 10 mg Ergocalciferol (Drisdol 50,000 Intl Units Cap) 1 cap PO QWK [facility] Last Admin: 05/12/17 13:21 Dose: 1 cap Heparin Sodium (Porcine) (Heparin) 5,000 units SC Q8 [facility] Last Admin: 05/15/17 06:37 Dose: 5,000 units Levetiracetam 500 mg/ Sodium (Chloride) 105 mls @ 420 mls/hr IVPB Q12H [facility] Last Admin: 05/14/17 21:53 Dose: 420 mls/hr Metoclopramide HCl (Reglan) 10 mg IVP DAILY [facility] Last Admin: 05/14/17 10:06 Dose: 10 mg Metoprolol Tartrate (Lopressor) 100 mg PO BID [facility] Last Admin: 05/14/17 18:03 Dose: Not Given Metoprolol Tartrate (Lopressor) 5 mg IVP Q2 PRN Last Admin: 05/15/17 06:39 Dose: 5 mg Multivitamins/Vitamin C (Multi-Delyn Liquid) 5 ml PO DAILY [facility] Last Admin: 05/14/17 10:05 Dose: Not Given Pantoprazole Sodium (Protonix Inj) 20 mg IVP BID [facility] Last Admin: 05/14/17 18:48 Dose: 20 mg Quetiapine Fumarate (Seroquel) 200 mg PO BID [facility] Risperidone (Risperdal Tab) 0.25 mg PO DAILY PRN PRN Reason: Agitation Last Admin: 05/14/17 20:15 Dose: 0.25 mg - Labs Labs: 05/15/17 08:38 05/15/17 06:36 PT 14.0 SECONDS (9.7-12.2) H 04/25/17 06:25 INR 1.2 04/25/17 06:25 APTT 32 SECONDS (21-34) 04/25/17 06:25 - Additional Findings Additional findings: - Constitutional Appears: No Acute Distress, Chronically Ill - Head Exam Head Exam: ATRAUMATIC, NORMAL INSPECTION - Eye Exam Eye Exam: EOMI, Normal appearance - ENT Exam ENT Exam: Mucous Membranes Dry (tracheostomy) - Respiratory Exam Respiratory Exam: Rhonchi. absent: Clear to Ausculation Bilateral, Wheezes, Respiratory Distress - Cardiovascular Exam Cardiovascular Exam: Tachycardia, +S1, +S2 - GI/Abdominal Exam GI & Abdominal Exam: Soft, Normal Bowel Sounds; ostomy bag in place- yellow liquid output - Extremities Exam Extremities Exam: absent: Pedal Edema - Neurological Exam Neurological Exam: Alert, Awake - Psychiatric Exam Psychiatric exam: Flat Affect - Skin Skin Exam: Dry, Normal Color, Warm Assessment and Plan - Assessment and Plan (Free Text) Plan: Sepsis Pt off pressors Dr. 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 repeat EGD unremarkable Continue NGT suction J tube reinserted by surgery Feeding restarted--> as per surgery possible imaging on 05/14/17, to confirm J tube placement Dulcolax 10mg [place] q24h PRN Metoclopramide 10mg IV daily Hypoxic Respiratory failure Trach placed, with suction Persistent tachycardia SVT bouts over course, rate controlled Lopressor 75mg PO BID Lopressor 5mg IV Q6h PRN Hx of schizophrenia Pt non-verbal at baseline Continue Seroquel 200mg PO q12hrs (increased from 100mg PO BID) Seizure disorder keppra 500mg IV Q12H Pancreatitis Resolved Elevated Alk phos RUQ US (05/07/17): Prominent liver echogenicity. Possible fatty infiltration vs parenchymal disease. Sludge. Left pleural effusoin. Small ascites. Vomiting Reglan Continue to monitor Acute Kidney injury Resolved Dr. Saenz, Nephrology [employer] consultant Bacteruria ID: Urine Cx (05/02/17) Gram + cocci in the urine Zyvox Fluconazole 200mg IV Prophylaxis: Protonix 20mg IB PO BID Heparin 5000 u Q8H SC VitC 500mg PO daily Multivitamin 5ml PO daily Drisdol 50,000iu 1cap PO qweek Risperidone 0.25mg daily prn for agitation Dispo: Case management applying for placement at rehab facility. Will discuss with attending, Dr. Reyes All medical management as per Dr. Reyes
[2017-05-15] MEDS: levETIRAcetam 500 MG in Sodium Chloride 0.9% 100 ML IVPB SCH ×2 (09:57→22:24)
[2017-05-15] MEDS: Multiple Vitamins Oral Solution PO SCH (09:57)
[2017-05-15] MEDS ORDERED: Magnesium Sulfate 1 gm in D5W 1 GM/100 ML BAG IVPB ONE (10:00)
--- NOTE | 2017-05-15 15:19 | CP.PCM.PN ---
Subjective - Date & Time of Evaluation Date of Evaluation: 05/15/17 Time of Evaluation: 07:00 - Subjective Subjective: Patient was seen and examined at bedside in the morning. Patient did not appear in distress. No acute events overnight . Review of systems not obtained due to patient's condition. Objective - Vital Signs/Intake and Output Vital Signs (last 24 hours): Temp Pulse Resp BP Pulse Ox 98.4 F 98 H 23 121/88 100 05/15/17 08:00 05/15/17 11:56 05/15/17 11:56 05/15/17 11:56 05/15/17 11:56 Intake and Output: 05/15/17 05/15/17 06:59 18:59 Intake Total 100 230 Balance 100 230 - Medications Medications: Current Medications Acetaminophen (Tylenol 650mg/20.3ml Solution Ud) 650 mg PO Q4 PRN PRN Reason: Temperature Last Admin: 05/09/17 12:31 Dose: 650 mg Ascorbic Acid (Vitamin C 500 Mg Tab) 500 mg PO DAILY [facility] Last Admin: 05/15/17 09:57 Dose: 500 mg Bisacodyl (Dulcolax) 10 mg [place] Q24H PRN PRN Reason: Constipation Last Admin: 05/08/17 06:02 Dose: 10 mg Ergocalciferol (Drisdol 50,000 Intl Units Cap) 1 cap PO QWK [facility] Last Admin: 05/12/17 13:21 Dose: 1 cap Heparin Sodium (Porcine) (Heparin) 5,000 units SC Q8 [facility] Last Admin: 05/15/17 13:26 Dose: 5,000 units Levetiracetam 500 mg/ Sodium (Chloride) 105 mls @ 420 mls/hr IVPB Q12H [facility] Last Admin: 05/15/17 09:57 Dose: 420 mls/hr Metoclopramide HCl (Reglan) 10 mg IVP DAILY [facility] Last Admin: 05/15/17 09:57 Dose: 10 mg Metoprolol Tartrate (Lopressor) 100 mg PO BID [facility] Last Admin: 05/15/17 09:57 Dose: 100 mg Metoprolol Tartrate (Lopressor) 5 mg IVP Q2 PRN Last Admin: 05/15/17 06:39 Dose: 5 mg Multivitamins/Vitamin C (Multi-Delyn Liquid) 5 ml PO DAILY [facility] Last Admin: 05/15/17 09:57 Dose: 5 ml Pantoprazole Sodium (Protonix Inj) 20 mg IVP BID [facility] Last Admin: 05/15/17 09:57 Dose: 20 mg Quetiapine Fumarate (Seroquel) 200 mg PO BID [facility] Risperidone (Risperdal Tab) 0.25 mg PO DAILY PRN PRN Reason: Agitation Last Admin: 05/14/17 20:15 Dose: 0.25 mg - Labs Labs: 05/15/17 08:38 05/15/17 06:36 PT 14.0 SECONDS (9.7-12.2) H 04/25/17 06:25 INR 1.2 04/25/17 06:25 APTT 32 SECONDS (21-34) 04/25/17 06:25 - Constitutional Appears: Non-toxic, Cachectic, Chronically Ill - Head Exam Head Exam: NORMOCEPHALIC - Eye Exam Eye Exam: PERRL - ENT Exam ENT Exam: Mucous Membranes Dry - Neck Exam Neck Exam: absent: Lymphadenopathy - Respiratory Exam Respiratory Exam: Decreased Breath Sounds - Cardiovascular Exam Cardiovascular Exam: REGULAR RHYTHM - GI/Abdominal Exam GI & Abdominal Exam: Distended - Rectal Exam Rectal Exam: Deferred - Exam Exam: NORMAL INSPECTION - Extremities Exam Extremities Exam: absent: Pedal Edema - Back Exam Back Exam: absent: CVA tenderness (L), CVA tenderness (R), NORMAL INSPECTION - Neurological Exam Neurological Exam: Alert, Altered, Awake - Psychiatric Exam Psychiatric exam: Depressed - Skin Skin Exam: Dry Assessment and Plan (1) Acute pancreatitis Status: Resolved (2) Leucocytosis Status: Acute
[2017-05-16] MEDS: Metoprolol 1 mg/ml Inj IVP PRN (04:20)
--- NOTE | 2017-05-16 06:32 | CP.PCM.PN ---
Subjective - Date & Time of Evaluation Date of Evaluation: 05/16/17 Time of Evaluation: 06:29 - Subjective Subjective: Ms. Rivera was seen and examined at the bedside in ICU. She is awake, non-verbal , moves all extremities spontaneously. She is unable to follow simple commands. She also has the trach connected to a humidified oxygen. She is not in any kind of distress. She remains with bilateral upper hand mittens for patient safety. There was no untoward events overnight. Objective - Vital Signs/Intake and Output Vital Signs (last 24 hours): Temp Pulse Resp BP Pulse Ox 98.6 F 126 H 27 H 121/83 100 05/16/17 04:00 05/16/17 04:00 05/16/17 00:00 05/16/17 04:00 05/16/17 04:00 Intake and Output: 05/15/17 05/16/17 18:59 06:59 Intake Total 255 100 Output Total 210 25 Balance 45 75 - Medications Medications: Current Medications Acetaminophen (Tylenol 650mg/20.3ml Solution Ud) 650 mg PO Q4 PRN PRN Reason: Temperature Last Admin: 05/09/17 12:31 Dose: 650 mg Ascorbic Acid (Vitamin C 500 Mg Tab) 500 mg PO DAILY [facility] Last Admin: 05/15/17 09:57 Dose: 500 mg Bisacodyl (Dulcolax) [address] Q24H PRN PRN Reason: Constipation Last Admin: 05/08/17 06:02 Dose: 10 mg Ergocalciferol (Drisdol 50,000 Intl Units Cap) 1 cap PO QWK [facility] Last Admin: 05/12/17 13:21 Dose: 1 cap Heparin Sodium (Porcine) (Heparin) 5,000 units SC Q8 [facility] Last Admin: 05/16/17 06:11 Dose: 5,000 units Levetiracetam 500 mg/ Sodium (Chloride) 105 mls @ 420 mls/hr IVPB Q12H [facility] Last Admin: 05/15/17 22:24 Dose: 420 mls/hr Metoclopramide HCl (Reglan) 10 mg IVP DAILY [facility] Last Admin: 05/15/17 09:57 Dose: 10 mg Metoprolol Tartrate (Lopressor) 100 mg PO BID [facility] Last Admin: 05/15/17 17:42 Dose: 100 mg Metoprolol Tartrate (Lopressor) 5 mg IVP Q2 PRN Last Admin: 05/16/17 04:20 Dose: 5 mg Multivitamins/Vitamin C (Multi-Delyn Liquid) 5 ml PO DAILY [facility] Last Admin: 05/15/17 09:57 Dose: 5 ml Pantoprazole Sodium (Protonix Inj) 20 mg IVP BID [facility] Last Admin: 05/15/17 17:42 Dose: 20 mg Quetiapine Fumarate (Seroquel) 200 mg PO BID [facility] Risperidone (Risperdal Tab) 0.25 mg PO DAILY PRN PRN Reason: Agitation Last Admin: 05/15/17 22:29 Dose: 0.25 mg - Labs Labs: 05/15/17 08:38 05/15/17 06:36 PT 14.0 SECONDS (9.7-12.2) H 04/25/17 06:25 INR 1.2 04/25/17 06:25 APTT 32 SECONDS (21-34) 04/25/17 06:25 - Constitutional Appears: No Acute Distress - Head Exam Head Exam: NORMAL INSPECTION - Neurological Exam Neurological Exam: Awake Neuro motor strength exam: Left Upper Extremity: 5, Right Upper Extremity: 5, Left Lower Extremity: 5, Right Lower Extremity: 5 Additional comments: Neurological unchanged from previous examination. Assessment and Plan (1) Focal seizure Assessment & Plan: Case discussed with Dr. Bryant, continue all current medical, physical, and occupational therapies. Recommend speech therapy for cognitive behavior.Since the patient focal seizure has been control and neurological unchanged, neurology is signing off. Please re-consult if there is any changes in her neurological status. Status: Acute
[2017-05-16 06:48] LABS: BASO # 0.1 K/uL (0.0-0.2); BASO % 0.7 % (0.0-2.0); EOS # 0.2 K/uL (0.0-0.7); EOS % 1.2 % (0.0-4.0); HEMOGLOBIN 8.9 g/dL (11.0-16.0); LYMPH % 15.7 % (20.0-40.0); MEAN CELL VOLUME 85.2 fL (81.0-99.0); MEAN CORPUSCULAR HEMOGLOBIN 28.6 pg (27.0-31.0); MEAN CORPUSCULAR HGB CONC 33.6 g/dL (33.0-37.0); MEAN PLATELET VOLUME 8.4 fL (7.2-11.7); MONO # 1.2 K/uL (0.0-0.8); NEUT # 14.7 K/uL (1.8-7.0); NEUT % 76.4 % (50.0-75.0); RBC 3.1 Mil/uL (3.80-5.20); RED CELL DISTRIBUTION WIDTH 14.9 % (11.5-14.5); WHITE BLOOD COUNT 19.3 K/uL (4.8-10.8)
[2017-05-16 07:04] LABS: ALB/GLOB RATIO 0.9 (1.0-2.1); ALBUMIN 3.5 g/dL (3.5-5.0); ALT/SGPT 44 U/L (9-52); AST/SGOT 28 U/L (14-36); BLOOD UREA NITROGEN 11 mg/dL (7-17); CALCIUM 9.6 mg/dl (8.6-10.4); GFR AFRICAN-AMERICAN > 60; GFR NON-AFRICAN AMERICAN > 60
--- NOTE | 2017-05-16 08:28 | CP.PCM.PN ---
Subjective - Date & Time of Evaluation Date of Evaluation: 05/16/17 Time of Evaluation: 07:00 - Subjective Subjective: General Surgery- Dr. Mendez Patient seen and examined at bedside this AM. Pt pulled NGT out last night. Residual < 10cc. Currently on trach collar, feeding via Jejunostomy. unable to obtain complete ROS. Objective - Vital Signs/Intake and Output Vital Signs (last 24 hours): Temp Pulse Resp BP Pulse Ox 98.6 F 126 H 27 H 121/83 100 05/16/17 04:00 05/16/17 04:00 05/16/17 00:00 05/16/17 04:00 05/16/17 04:00 Intake and Output: 05/16/17 05/16/17 06:59 18:59 Intake Total 100 Output Total 25 Balance 75 - Medications Medications: Current Medications Acetaminophen (Tylenol 650mg/20.3ml Solution Ud) 650 mg PO Q4 PRN PRN Reason: Temperature Last Admin: 05/09/17 12:31 Dose: 650 mg Ascorbic Acid (Vitamin C 500 Mg Tab) 500 mg PO DAILY [facility] Last Admin: 05/15/17 09:57 Dose: 500 mg Bisacodyl (Dulcolax) 10 mg [place] Q24H PRN PRN Reason: Constipation Last Admin: 05/08/17 06:02 Dose: 10 mg Ergocalciferol (Drisdol 50,000 Intl Units Cap) 1 cap PO QWK [facility] Last Admin: 05/12/17 13:21 Dose: 1 cap Heparin Sodium (Porcine) (Heparin) 5,000 units SC Q8 [facility] Last Admin: 05/16/17 06:11 Dose: 5,000 units Levetiracetam 500 mg/ Sodium (Chloride) 105 mls @ 420 mls/hr IVPB Q12H [facility] Last Admin: 05/15/17 22:24 Dose: 420 mls/hr Metoclopramide HCl (Reglan) 10 mg IVP DAILY [facility] Last Admin: 05/15/17 09:57 Dose: 10 mg Metoprolol Tartrate (Lopressor) 100 mg PO BID [facility] Last Admin: 05/15/17 17:42 Dose: 100 mg Metoprolol Tartrate (Lopressor) 5 mg IVP Q2 PRN Last Admin: 05/16/17 04:20 Dose: 5 mg Multivitamins/Vitamin C (Multi-Delyn Liquid) 5 ml PO DAILY [facility] Last Admin: 05/15/17 09:57 Dose: 5 ml Pantoprazole Sodium (Protonix Inj) 20 mg IVP BID [facility] Last Admin: 05/15/17 17:42 Dose: 20 mg Quetiapine Fumarate (Seroquel) 200 mg PO BID [facility] Risperidone (Risperdal Tab) 0.25 mg PO DAILY PRN PRN Reason: Agitation Last Admin: 05/15/17 22:29 Dose: 0.25 mg - Labs Labs: 05/16/17 06:43 05/16/17 06:43 PT 14.0 SECONDS (9.7-12.2) H 04/25/17 06:25 INR 1.2 04/25/17 06:25 APTT 32 SECONDS (21-34) 04/25/17 06:25 - Constitutional Appears: Non-toxic, No Acute Distress, Agitated - Eye Exam Eye Exam: EOMI - ENT Exam ENT Exam: Mucous Membranes Moist - Respiratory Exam Respiratory Exam: NORMAL BREATHING PATTERN. absent: Accessory Muscle Use, Respiratory Distress - Cardiovascular Exam Cardiovascular Exam: +S1, +S2. absent: Bradycardia, Tachycardia - GI/Abdominal Exam GI & Abdominal Exam: Soft. absent: Firm, Guarding, Rigid, Tenderness Additional comments: jejunostomy pink patent. receiving feeds. - Neurological Exam Neurological Exam: Alert, Awake - Psychiatric Exam Psychiatric exam: Agitated - Skin Skin Exam: Intact, Warm Assessment and Plan - Assessment and Plan (Free Text) Assessment: 36F POD#28 s/p gastrojejunostomy w/ bypass and feeding jejunostomy Plan: - continue tube feeds - replace NGT - restart tube feeds - imaging for J-Tube patency today - tomorrow plan for Upper GI series - anti-emetics PRN - medical management per PMD/Critical Care - further recs per Dr. Mendez surgical attending Errol Griffin PGY1
[2017-05-16] MEDS: levETIRAcetam 500 MG in Sodium Chloride 0.9% 100 ML IVPB SCH ×2 (10:20→21:21)
[2017-05-16] MEDS: Multiple Vitamins Oral Solution PO SCH (10:21)
--- NOTE | 2017-05-16 11:08 | RAD ---
HISTORY: NGT placement COMPARISON: Chest x-ray performed 05/13/17 TECHNIQUE: Chest, one view. FINDINGS: Tracheostomy tube. Right-sided central venous catheter with distal tips at the right atrium. Nasogastric tube appears coiled at the expected location of the stomach. Left-sided PICC extends expected location of the cavoatrial junction, obscured somewhat by overlying wires and leads. Facemask projects over the lung apices. LUNGS: Subtle patchy opacity at the medial right lower lobe may reflect atelectasis or infiltrate. Please note that chest x-ray has limited sensitivity for the detection of pulmonary masses. PLEURA: No significant pleural effusion identified. No definite pneumothorax . CARDIOVASCULAR: The cardiomediastinal silhouette appears within normal limits of size. OSSEOUS STRUCTURES: Degenerative changes. VISUALIZED UPPER ABDOMEN: Unremarkable. OTHER FINDINGS: None. IMPRESSION: Tracheostomy tube. Right-sided central venous catheter with distal tips at the right atrium. Nasogastric tube appears coiled at the expected location of the stomach. Left-sided PICC extends expected location of the cavoatrial junction, obscured somewhat by overlying wires and leads. Subtle patchy opacity at the medial right lower lobe may reflect atelectasis or infiltrate.
[2017-05-16] MEDS ORDERED: Iohexol 240 200 ML ONE (14:16)
--- NOTE | 2017-05-16 15:46 | RAD ---
Limited small bowel series History: J-tube placement. Comparison: 05/02/2017 Technique: Limited small bowel series was performed. Findings: Postsurgical changes in the bowel. NG tube as well as J-tube in place. Contrast was instilled bed-side through an existing J-tube port. Contrast filled the distended lumen of the jejunum at the level of the J-tube. Contrast flowed retrograde into the more proximal small bowel and stomach. On subsequent delayed images, contrast flowed into the distal small bowel and colon. No evidence of gross leak or extravasation was noted. Impression: Postsurgical changes in the bowel. NG tube as well as J-tube in place. Contrast was instilled bed-side through an existing J-tube port. Contrast filled the distended lumen of the jejunum at the level of the J-tube. Contrast flowed retrograde into the more proximal small bowel and stomach. On subsequent delayed images, contrast flowed into the distal small bowel and colon. No evidence of gross leak or extravasation was noted.
[2017-05-16] MEDS ORDERED: Dextrose 5%/0.9% NS 1,000 ML IV ONE (19:21)
[2017-05-17] MEDS: Metoprolol 1 mg/ml Inj IVP PRN (02:18)
[2017-05-17 06:33] LABS: BASO # 0.1 K/uL (0.0-0.2); BASO % 0.4 % (0.0-2.0); EOS # 0.3 K/uL (0.0-0.7); EOS % 2.1 % (0.0-4.0); HEMOGLOBIN 8.6 g/dL (11.0-16.0); LYMPH # 3.1 K/uL (1.0-4.3); LYMPH % 18.7 % (20.0-40.0); MEAN CELL VOLUME 85.3 fL (81.0-99.0); MEAN CORPUSCULAR HEMOGLOBIN 28.1 pg (27.0-31.0); MEAN CORPUSCULAR HGB CONC 32.9 g/dL (33.0-37.0); MEAN PLATELET VOLUME 8.1 fL (7.2-11.7); MONO # 1.5 K/uL (0.0-0.8); MONO % 9.1 % (0.0-10.0); NEUT # 11.4 K/uL (1.8-7.0); NEUT % 69.7 % (50.0-75.0); RBC 3.08 Mil/uL (3.80-5.20); RED CELL DISTRIBUTION WIDTH 15.5 % (11.5-14.5); WHITE BLOOD COUNT 16.3 K/uL (4.8-10.8)
[2017-05-17 06:44] LABS: ALB/GLOB RATIO 0.9 (1.0-2.1); ALBUMIN 3.5 g/dL (3.5-5.0); ALT/SGPT 39 U/L (9-52); AST/SGOT 21 U/L (14-36); BLOOD UREA NITROGEN 11 mg/dL (7-17); CALCIUM 9.5 mg/dl (8.6-10.4); GFR AFRICAN-AMERICAN > 60; GFR NON-AFRICAN AMERICAN > 60
--- NOTE | 2017-05-17 09:13 | CP.PCM.PN ---
Subjective - Date & Time of Evaluation Date of Evaluation: 05/17/17 Time of Evaluation: 07:15 - Subjective Subjective: General Surgery- Dr. Mendez Patient seen and examined at bedside this AM. Aphasic full ROS unotbainable. Tube feeds off. jejunostomy pink and patent. NGT in place. On trach collar Objective - Vital Signs/Intake and Output Vital Signs (last 24 hours): Temp Pulse Resp BP Pulse Ox 97.6 F 125 H 15 128/86 99 05/17/17 04:00 05/17/17 07:04 05/17/17 07:04 05/17/17 07:04 05/17/17 07:04 Intake and Output: 05/17/17 05/17/17 06:59 18:59 Intake Total 600 50 Output Total 380 Balance 220 50 - Medications Medications: Current Medications Acetaminophen (Tylenol 650mg/20.3ml Solution Ud) 650 mg PO Q4 PRN PRN Reason: Temperature Last Admin: 05/09/17 12:31 Dose: 650 mg Ascorbic Acid (Vitamin C 500 Mg Tab) 500 mg PO DAILY [facility] Last Admin: 05/16/17 10:21 Dose: 500 mg Bisacodyl (Dulcolax) 10 mg [place] Q24H PRN PRN Reason: Constipation Last Admin: 05/08/17 06:02 Dose: 10 mg Ergocalciferol (Drisdol 50,000 Intl Units Cap) 1 cap PO QWK [facility] Last Admin: 05/12/17 13:21 Dose: 1 cap Levetiracetam 500 mg/ Sodium (Chloride) 105 mls @ 420 mls/hr IVPB Q12H [facility] Last Admin: 05/16/17 21:21 Dose: 420 mls/hr Dextrose/Sodium Chloride (Dextrose 5%/0.9% Ns 1000 Ml) 1,000 mls @ 50 mls/hr IV .Q20H [facility] Stop: 05/17/17 15:20 Last Admin: 05/16/17 19:40 Dose: 50 mls/hr Potassium Chloride (Potassium Chloride 10 Meq/100 Ml) 10 meq in 100 mls @ 100 mls/hr IVPB Q1H [facility] Stop: 05/17/17 09:44 Metoclopramide HCl (Reglan) 10 mg IVP DAILY [facility] Last Admin: 05/16/17 10:20 Dose: 10 mg Metoprolol Tartrate (Lopressor) 100 mg PO BID [facility] Last Admin: 05/16/17 18:31 Dose: 100 mg Metoprolol Tartrate (Lopressor) 5 mg IVP Q2 PRN Last Admin: 05/17/17 02:18 Dose: 5 mg Multivitamins (Hexavitamin) 1 tab PO DAILY [facility] Pantoprazole Sodium (Protonix Inj) 20 mg IVP BID [facility] Last Admin: 05/16/17 18:30 Dose: 20 mg Quetiapine Fumarate (Seroquel) 200 mg PO BID [facility] Risperidone (Risperdal Tab) 0.25 mg PO DAILY PRN PRN Reason: Agitation Last Admin: 05/15/17 22:29 Dose: 0.25 mg - Labs Labs: 05/17/17 06:11 05/17/17 06:11 PT 14.0 SECONDS (9.7-12.2) H 04/25/17 06:25 INR 1.2 04/25/17 06:25 APTT 32 SECONDS (21-34) 04/25/17 06:25 - Constitutional Appears: Non-toxic, No Acute Distress - Head Exam Head Exam: ATRAUMATIC - Eye Exam Eye Exam: EOMI. absent: Scleral icterus - Respiratory Exam Respiratory Exam: absent: Accessory Muscle Use, Respiratory Distress - Cardiovascular Exam Cardiovascular Exam: +S1, +S2. absent: Bradycardia, Tachycardia - GI/Abdominal Exam GI & Abdominal Exam: Soft. absent: Distended, Firm, Guarding, Rigid, Tenderness Additional comments: jejunostomy pink and patenet. will have tube feeds - Extremities Exam Extremities Exam: Normal Inspection. absent: Calf Tenderness - Neurological Exam Neurological Exam: Alert, Awake - Psychiatric Exam Psychiatric exam: Normal Affect - Skin Skin Exam: Dry, Warm Assessment and Plan - Assessment and Plan (Free Text) Assessment: 36F POD#29 s/p gastrojejunostomy w/ bypass and feeding jejunostomy Plan: - Restart tube feeds tube feeds - imaging for J-Tube patency today - plan for upper GI series today - anti-emetics PRN - medical management per PMD/Critical Care - further recs per Dr. Mendez surgical attending Errol Griffin PGY1
[2017-05-17] MEDS: Multiple Vitamins Tab PO SCH (09:45)
[2017-05-17] MEDS: Magnesium Sulfate 1 gm in D5W 1 GM/100 ML BAG IVPB SCH ×3 (10:15→12:23)
[2017-05-17] MEDS: levETIRAcetam 500 MG in Sodium Chloride 0.9% 100 ML IVPB SCH ×2 (10:15→21:24)
--- NOTE | 2017-05-17 11:31 | CP.CCUPN ---
<LeroytieraBipin torres - Last Filed: 05/17/17 11:40> CCU Subjective - Physician Review Subjective (Free Text): 05/17/17 11:30 Patient seen and examined at bedside looks much better out of bed tolerating trach collar restart tube feeds CCU Objective - Vital Signs / Intake & Output Intake and Output (Last 8hrs): Intake & Output 05/16/17 05/17/17 05/17/17 22:59 06:59 14:59 Intake Total 320 400 50 Output Total 130 250 Balance 190 150 50 Intake: Intake, IV Amount 200 400 50 Left PICC Proximal Port 200 400 50 Left Upper arm 0 Tube Feeding 0 0 0 Other 120 Output: Gastric Amount 30 50 Stomach 30 50 Urine 100 200 Urine, Voided 100 200 Other: # Bowel Movements 0 - Physical Exam Head: Positive for: Atraumatic, Normocephalic. Negative for: Tenderness Pupils: Positive for: PERRL Extroacular Muscles: Positive for: EOMI Mouth: Positive for: Moist Mucous Membranes. Negative for: Dry, Drooling Nose (External): Positive for: Other (NGT in place) Nose (Internal): Positive for: Normal Inspection, Moist Neck: Positive for: Other (trach). Negative for: JVD, Lymphadenopathy Respiratory/Chest: Positive for: Clear to Auscultation. Negative for: Respiratory Distress, Accessory Muscle Use Cardiovascular: Positive for: Regular Rate and Rhythm, Normal S1, S2 Abdomen: Positive for: Tenderness (mild tenderness of palpation. patient continues to move her arms towards hands on palpation), Normal Bowel Sounds. Negative for: Distention, Peritoneal Signs, Guarding Upper Extremity: Positive for: Normal Inspection, Normal ROM, Capillary Refill < 2s. Negative for: Edema Lower Extremity: Positive for: Normal Inspection. Negative for: Edema Neurological: Positive for: CN II-XII Intact Skin: Positive for: Warm, Pale Psychiatric: Positive for: Alert - Medications Active Medications: Active Medications Generic Name Dose Route Start Last Admin Trade Name Freq PRN Reason Stop Dose Admin Acetaminophen 650 mg 04/28/17 20:11 05/09/17 12:31 Tylenol 650mg/20.3ml Solution Ud PO 650 mg Q4 PRN Administration Temperature Ascorbic Acid 500 mg 05/12/17 11:15 05/17/17 09:45 Vitamin C 500 Mg Tab PO 500 mg DAILY AGUSTIN Administration Bisacodyl 10 mg 05/07/17 13:35 05/08/17 06:02 Dulcolax NM 10 mg Q24H PRN Administration Constipation Ergocalciferol 1 cap 05/12/17 11:15 05/12/17 13:21 Drisdol 50,000 Intl Units Cap PO 1 cap QWK AGUSTIN Administration Levetiracetam 500 mg/ Sodium 105 mls @ 420 mls/hr 05/03/17 22:00 05/17/17 10: 15 Chloride IVPB 420 mls/hr Q12H AGUSTIN Administration Dextrose/Sodium Chloride 1,000 mls @ 50 mls/hr 05/16/17 19:21 05/16/17 19:40 Dextrose 5%/0.9% Ns 1000 Ml IV 05/17/17 15:20 50 mls/hr .Q20H ONE Administration Metoclopramide HCl 10 mg 05/12/17 11:00 05/17/17 09:44 Reglan IVP 10 mg DAILY AGUSTIN Administration Metoprolol Tartrate 100 mg 05/13/17 11:24 05/17/17 09:45 Lopressor PO 100 mg BID AGUSTIN Administration Metoprolol Tartrate 5 mg 05/13/17 14:00 05/17/17 02:18 Lopressor IVP 5 mg Q2 PRN Administration Multivitamins 1 tab 05/17/17 10:00 05/17/17 09:45 Hexavitamin PO 1 tab DAILY AGUSTIN Administration Pantoprazole Sodium 20 mg 04/19/17 18:00 05/17/17 09:43 Protonix Inj IVP 20 mg BID AGUSTIN Administration Quetiapine Fumarate 200 mg 05/12/17 12:30 Seroquel PO BID AGUSTIN Risperidone 0.25 mg 05/14/17 15:55 05/15/17 22:29 Risperdal Tab PO 0.25 mg DAILY PRN Administration Agitation - Patient Studies Lab Studies: Lab Studies 05/17/17 05/17/17 05/17/17 Range/Units 11:25 06:11 06:11 WBC 16.3 H (4.8-10.8) K/uL RBC 3.08 L (3.80-5.20) Mil/uL Hgb 8.6 L (11.0-16.0) g/dL Hct 26.3 L (34.0-47.0) % MCV 85.3 (81.0-99.0) fL MCH 28.1 (27.0-31.0) pg MCHC 32.9 L (33.0-37.0) g/dL RDW 15.5 H (11.5-14.5) % Plt Count 307 (130-400) K/uL MPV 8.1 (7.2-11.7) fL Neut % (Auto) 69.7 (50.0-75.0) % Lymph % (Auto) 18.7 L (20.0-40.0) % Vernon % (Auto) 9.1 (0.0-10.0) % Eos % (Auto) 2.1 (0.0-4.0) % Baso % (Auto) 0.4 (0.0-2.0) % Neut # (Auto) 11.4 H (1.8-7.0) K/uL Lymph # (Auto) 3.1 (1.0-4.3) K/uL Vernon # (Auto) 1.5 H (0.0-0.8) K/uL Eos # (Auto) 0.3 (0.0-0.7) K/uL Baso # (Auto) 0.1 (0.0-0.2) K/uL Sodium 142 (132-148) mmol/L Potassium 3.5 L (3.6-5.2) mmol/L Chloride 100 (98-107) mmol/L Carbon Dioxide 28 (22-30) mmol/L Anion Gap 18 (10-20) BUN 11 (7-17) mg/dL Creatinine 0.5 L (0.7-1.2) mg/dL Est GFR ( Amer) > 60 Est GFR (Non-Af Amer) > 60 POC Glucose (mg/dL) 122 H (65-110) mg/dL Random Glucose 97 (65-105) mg/dL Calcium 9.5 (8.6-10.4) mg/dl Phosphorus 4.7 H (2.5-4.5) mg/dL Magnesium 1.3 L (1.6-2.3) mg/dL Total Bilirubin 0.6 (0.2-1.3) mg/dL AST 21 (14-36) U/L ALT 39 (9-52) U/L Alkaline Phosphatase 169 H (38-126) U/L Total Protein 7.3 (6.3-8.3) g/dL Albumin 3.5 (3.5-5.0) g/dL Globulin 3.9 (2.2-3.9) gm/dL Albumin/Globulin Ratio 0.9 L (1.0-2.1) 05/17/17 05/16/17 05/16/17 Range/Units 05:50 23:59 17:48 WBC (4.8-10.8) K/uL RBC (3.80-5.20) Mil/uL Hgb (11.0-16.0) g/dL Hct (34.0-47.0) % MCV (81.0-99.0) fL MCH (27.0-31.0) pg MCHC (33.0-37.0) g/dL RDW (11.5-14.5) % Plt Count (130-400) K/uL MPV (7.2-11.7) fL Neut % (Auto) (50.0-75.0) % Lymph % (Auto) (20.0-40.0) % Vernon % (Auto) (0.0-10.0) % Eos % (Auto) (0.0-4.0) % Baso % (Auto) (0.0-2.0) % Neut # (Auto) (1.8-7.0) K/uL Lymph # (Auto) (1.0-4.3) K/uL Vernon # (Auto) (0.0-0.8) K/uL Eos # (Auto) (0.0-0.7) K/uL Baso # (Auto) (0.0-0.2) K/uL Sodium (132-148) mmol/L Potassium (3.6-5.2) mmol/L Chloride (98-107) mmol/L Carbon Dioxide (22-30) mmol/L Anion Gap (10-20) BUN (7-17) mg/dL Creatinine (0.7-1.2) mg/dL Est GFR ( Amer) Est GFR (Non-Af Amer) POC Glucose (mg/dL) 96 90 88 (65-110) mg/dL Random Glucose (65-105) mg/dL Calcium (8.6-10.4) mg/dl Phosphorus (2.5-4.5) mg/dL Magnesium (1.6-2.3) mg/dL Total Bilirubin (0.2-1.3) mg/dL AST (14-36) U/L ALT (9-52) U/L Alkaline Phosphatase (38-126) U/L Total Protein (6.3-8.3) g/dL Albumin (3.5-5.0) g/dL Globulin (2.2-3.9) gm/dL Albumin/Globulin Ratio (1.0-2.1) 05/16/17 Range/Units 12:43 WBC (4.8-10.8) K/uL RBC (3.80-5.20) Mil/uL Hgb (11.0-16.0) g/dL Hct (34.0-47.0) % MCV (81.0-99.0) fL MCH (27.0-31.0) pg MCHC (33.0-37.0) g/dL RDW (11.5-14.5) % Plt Count (130-400) K/uL MPV (7.2-11.7) fL Neut % (Auto) (50.0-75.0) % Lymph % (Auto) (20.0-40.0) % Vernon % (Auto) (0.0-10.0) % Eos % (Auto) (0.0-4.0) % Baso % (Auto) (0.0-2.0) % Neut # (Auto) (1.8-7.0) K/uL Lymph # (Auto) (1.0-4.3) K/uL Vernon # (Auto) (0.0-0.8) K/uL Eos # (Auto) (0.0-0.7) K/uL Baso # (Auto) (0.0-0.2) K/uL Sodium (132-148) mmol/L Potassium (3.6-5.2) mmol/L Chloride (98-107) mmol/L Carbon Dioxide (22-30) mmol/L Anion Gap (10-20) BUN (7-17) mg/dL Creatinine (0.7-1.2) mg/dL Est GFR ( Amer) Est GFR (Non-Af Amer) POC Glucose (mg/dL) 83 (65-110) mg/dL Random Glucose (65-105) mg/dL Calcium (8.6-10.4) mg/dl Phosphorus (2.5-4.5) mg/dL Magnesium (1.6-2.3) mg/dL Total Bilirubin (0.2-1.3) mg/dL AST (14-36) U/L ALT (9-52) U/L Alkaline Phosphatase (38-126) U/L Total Protein (6.3-8.3) g/dL Albumin (3.5-5.0) g/dL Globulin (2.2-3.9) gm/dL Albumin/Globulin Ratio (1.0-2.1) Laboratory Results - last 24 hr 05/16/17 05/16/17 05/16/17 12:43 17:48 23:59 WBC RBC Hgb Hct MCV MCH MCHC RDW Plt Count MPV Neut % (Auto) Lymph % (Auto) Vernon % (Auto) Eos % (Auto) Baso % (Auto) Neut # (Auto) Lymph # (Auto) Vernon # (Auto) Eos # (Auto) Baso # (Auto) Sodium Potassium Chloride Carbon Dioxide Anion Gap BUN Creatinine Est GFR ( Amer) Est GFR (Non-Af Amer) POC Glucose (mg/dL) 83 88 90 Random Glucose Calcium Phosphorus Magnesium Total Bilirubin AST ALT Alkaline Phosphatase Total Protein Albumin Globulin Albumin/Globulin Ratio 05/17/17 05/17/17 05/17/17 05:50 06:11 06:11 WBC 16.3 H RBC 3.08 L Hgb 8.6 L Hct 26.3 L MCV 85.3 MCH 28.1 MCHC 32.9 L RDW 15.5 H Plt Count 307 MPV 8.1 Neut % (Auto) 69.7 Lymph % (Auto) 18.7 L Vernon % (Auto) 9.1 Eos % (Auto) 2.1 Baso % (Auto) 0.4 Neut # (Auto) 11.4 H Lymph # (Auto) 3.1 Vernon # (Auto) 1.5 H Eos # (Auto) 0.3 Baso # (Auto) 0.1 Sodium 142 Potassium 3.5 L Chloride 100 Carbon Dioxide 28 Anion Gap 18 BUN 11 Creatinine 0.5 L Est GFR ( Amer) > 60 Est GFR (Non-Af Amer) > 60 POC Glucose (mg/dL) 96 Random Glucose 97 Calcium 9.5 Phosphorus 4.7 H Magnesium 1.3 L Total Bilirubin 0.6 AST 21 ALT 39 Alkaline Phosphatase 169 H Total Protein 7.3 Albumin 3.5 Globulin 3.9 Albumin/Globulin Ratio 0.9 L 05/17/17 11:25 WBC RBC Hgb Hct MCV MCH MCHC RDW Plt Count MPV Neut % (Auto) Lymph % (Auto) Vernon % (Auto) Eos % (Auto) Baso % (Auto) Neut # (Auto) Lymph # (Auto) Vernon # (Auto) Eos # (Auto) Baso # (Auto) Sodium Potassium Chloride Carbon Dioxide Anion Gap BUN Creatinine Est GFR ( Amer) Est GFR (Non-Af Amer) POC Glucose (mg/dL) 122 H Random Glucose Calcium Phosphorus Magnesium Total Bilirubin AST ALT Alkaline Phosphatase Total Protein Albumin Globulin Albumin/Globulin Ratio Fingerstick Blood Sugar Results: 96 Assessment/Plan - Assessment and Plan (Free Text) Assessment: 36F s/p gastrojej and J tube Plan: Psych: Schizophrenia - Seroquel 200mg PO BID consider making standing doses - Risperdal 0.25mg PO qd Neuro: Seizure disorder - Renew Keppra 500mg @ 420ml/hr IVPD q12h - Metoclopramide 10mg IVP qd - check lactate dehydrogenase and CPK to check for possible seizure activity overnight accompanying acutely increased WBC Cards: Tachycardia (persistent), HTN - Lopressor 100mg BID; 5mg IV q2h PRN given this AM - Magnesium sulfate 1g in 100ml D5W IVPB x1 - Dextrose 5%/0.9% NS 1000 ml @ 50ml/hr IV q20h x1 on 05/16 Pulm: PRVC ventilator - CXR taken this AM showed trach tube, R central venous catheter, NGT, and L PICC all in place and stable; positive for subtle patchy opacities @ medial R lower lobe - CPAP 5ps 10FiO2 40%, vent settings back to PRVC 116 tv 450 FiO2 40% p+5 (per nurse note) - O2 via Trach Collar; add T for inline suction for trach GI: Biliary emesis, constipation - Small bowel series taken at bedside with contrast; no leaks/extravasation - NGT replaced after pt removed - TPN - Feeding to resume at 10cc/hr - Dulcolax 10mg NM q24h Renal: UTI (g+ cocci in urine 05/02) - Cefepime 1g in 5% dextrose water @ 100ml/hr IVPD qd - Linezolid 600mg in D5W 300ml PPx: - Drisdol 50,000 IU 1cap PO qwk - VitC 500mg tab PO qd - Multivitamin: 5ml PO qd - Heparin 5000 U SC q8 - Protonix 20mg IVP BID <Jose Hernandez S - Last Filed: 05/17/17 18:56> CCU Objective - Vital Signs / Intake & Output Vital Signs (Last 4 hours): Vital Signs Temp Pulse Resp BP Pulse Ox 05/17/17 18:04 114 H 20 127/86 100 05/17/17 18:00 118 H 21 97 05/17/17 17:04 126 H 18 137/89 99 05/17/17 17:00 90 14 99 05/17/17 16:05 118 H 13 134/92 H 76 L 05/17/17 16:00 98.2 F 88 13 91 L 05/17/17 15:06 106 H 13 124/88 05/17/17 15:00 105 H 12 100 Intake and Output (Last 8hrs): Intake & Output 05/17/17 05/17/17 05/17/17 06:59 14:59 22:59 Intake Total 400 600 200 Output Total 250 Balance 150 600 200 Intake: Intake, IV Amount 400 600 200 Left Distal Port PICC 200 Left PICC Proximal Port 400 400 200 Tube Feeding 0 0 Output: Gastric Amount 50 Stomach 50 Urine 200 Urine, Voided 200 Other: # Bowel Movements 0 - Medications Active Medications: Active Medications Generic Name Dose Route Start Last Admin Trade Name Freq PRN Reason Stop Dose Admin Acetaminophen 650 mg 04/28/17 20:11 05/09/17 12:31 Tylenol 650mg/20.3ml Solution Ud PO 650 mg Q4 PRN Administration Temperature Ascorbic Acid 500 mg 05/12/17 11:15 05/17/17 09:45 Vitamin C 500 Mg Tab PO 500 mg DAILY AGUSTIN Administration Bisacodyl 10 mg 05/07/17 13:35 05/08/17 06:02 Dulcolax NM 10 mg Q24H PRN Administration Constipation Ergocalciferol 1 cap 05/12/17 11:15 05/12/17 13:21 Drisdol 50,000 Intl Units Cap PO 1 cap QWK AGUSTIN Administration Levetiracetam 500 mg/ Sodium 105 mls @ 420 mls/hr 05/03/17 22:00 05/17/17 10: 15 Chloride IVPB 420 mls/hr Q12H AGUSTIN Administration Metoclopramide HCl 10 mg 05/12/17 11:00 05/17/17 09:44 Reglan IVP 10 mg DAILY AGUSTIN Administration Metoprolol Tartrate 100 mg 05/13/17 11:24 05/17/17 17:53 Lopressor PO 100 mg BID AGUSTIN Administration Metoprolol Tartrate 5 mg 05/13/17 14:00 05/17/17 02:18 Lopressor IVP 5 mg Q2 PRN Administration Multivitamins 1 tab 05/17/17 10:00 05/17/17 09:45 Hexavitamin PO 1 tab DAILY AGUSTIN Administration Pantoprazole Sodium 20 mg 04/19/17 18:00 05/17/17 17:53 Protonix Inj IVP 20 mg BID AGUSTIN Administration Quetiapine Fumarate 200 mg 05/12/17 12:30 Seroquel PO BID AGUSTIN Risperidone 0.25 mg 05/14/17 15:55 05/15/17 22:29 Risperdal Tab PO 0.25 mg DAILY PRN Administration Agitation - Patient Studies Lab Studies: Lab Studies 05/17/17 05/17/17 05/17/17 Range/Units 17:57 11:25 06:11 WBC (4.8-10.8) K/uL RBC (3.80-5.20) Mil/uL Hgb (11.0-16.0) g/dL Hct (34.0-47.0) % MCV (81.0-99.0) fL MCH (27.0-31.0) pg MCHC (33.0-37.0) g/dL RDW (11.5-14.5) % Plt Count (130-400) K/uL MPV (7.2-11.7) fL Neut % (Auto) (50.0-75.0) % Lymph % (Auto) (20.0-40.0) % Vernon % (Auto) (0.0-10.0) % Eos % (Auto) (0.0-4.0) % Baso % (Auto) (0.0-2.0) % Neut # (Auto) (1.8-7.0) K/uL Lymph # (Auto) (1.0-4.3) K/uL Vernon # (Auto) (0.0-0.8) K/uL Eos # (Auto) (0.0-0.7) K/uL Baso # (Auto) (0.0-0.2) K/uL Sodium 142 (132-148) mmol/L Potassium 3.5 L (3.6-5.2) mmol/L Chloride 100 (98-107) mmol/L Carbon Dioxide 28 (22-30) mmol/L Anion Gap 18 (10-20) BUN 11 (7-17) mg/dL Creatinine 0.5 L (0.7-1.2) mg/dL Est GFR ( Amer) > 60 Est GFR (Non-Af Amer) > 60 POC Glucose (mg/dL) 106 122 H (65-110) mg/dL Random Glucose 97 (65-105) mg/dL Calcium 9.5 (8.6-10.4) mg/dl Phosphorus 4.7 H (2.5-4.5) mg/dL Magnesium 1.3 L (1.6-2.3) mg/dL Total Bilirubin 0.6 (0.2-1.3) mg/dL AST 21 (14-36) U/L ALT 39 (9-52) U/L Alkaline Phosphatase 169 H (38-126) U/L Total Protein 7.3 (6.3-8.3) g/dL Albumin 3.5 (3.5-5.0) g/dL Globulin 3.9 (2.2-3.9) gm/dL Albumin/Globulin Ratio 0.9 L (1.0-2.1) 05/17/17 05/17/17 05/16/17 Range/Units 06:11 05:50 23:59 WBC 16.3 H (4.8-10.8) K/uL RBC 3.08 L (3.80-5.20) Mil/uL Hgb 8.6 L (11.0-16.0) g/dL Hct 26.3 L (34.0-47.0) % MCV 85.3 (81.0-99.0) fL MCH 28.1 (27.0-31.0) pg MCHC 32.9 L (33.0-37.0) g/dL RDW 15.5 H (11.5-14.5) % Plt Count 307 (130-400) K/uL MPV 8.1 (7.2-11.7) fL Neut % (Auto) 69.7 (50.0-75.0) % Lymph % (Auto) 18.7 L (20.0-40.0) % Vernon % (Auto) 9.1 (0.0-10.0) % Eos % (Auto) 2.1 (0.0-4.0) % Baso % (Auto) 0.4 (0.0-2.0) % Neut # (Auto) 11.4 H (1.8-7.0) K/uL Lymph # (Auto) 3.1 (1.0-4.3) K/uL Vernon # (Auto) 1.5 H (0.0-0.8) K/uL Eos # (Auto) 0.3 (0.0-0.7) K/uL Baso # (Auto) 0.1 (0.0-0.2) K/uL Sodium (132-148) mmol/L Potassium (3.6-5.2) mmol/L Chloride (98-107) mmol/L Carbon Dioxide (22-30) mmol/L Anion Gap (10-20) BUN (7-17) mg/dL Creatinine (0.7-1.2) mg/dL Est GFR ( Amer) Est GFR (Non-Af Amer) POC Glucose (mg/dL) 96 90 (65-110) mg/dL Random Glucose (65-105) mg/dL Calcium (8.6-10.4) mg/dl Phosphorus (2.5-4.5) mg/dL Magnesium (1.6-2.3) mg/dL Total Bilirubin (0.2-1.3) mg/dL AST (14-36) U/L ALT (9-52) U/L Alkaline Phosphatase (38-126) U/L Total Protein (6.3-8.3) g/dL Albumin (3.5-5.0) g/dL Globulin (2.2-3.9) gm/dL Albumin/Globulin Ratio (1.0-2.1) Laboratory Results - last 24 hr 05/16/17 05/17/17 05/17/17 23:59 05:50 06:11 WBC 16.3 H RBC 3.08 L Hgb 8.6 L Hct 26.3 L MCV 85.3 MCH 28.1 MCHC 32.9 L RDW 15.5 H Plt Count 307 MPV 8.1 Neut % (Auto) 69.7 Lymph % (Auto) 18.7 L Vernon % (Auto) 9.1 Eos % (Auto) 2.1 Baso % (Auto) 0.4 Neut # (Auto) 11.4 H Lymph # (Auto) 3.1 Vernon # (Auto) 1.5 H Eos # (Auto) 0.3 Baso # (Auto) 0.1 Sodium Potassium Chloride Carbon Dioxide Anion Gap BUN Creatinine Est GFR ( Amer) Est GFR (Non-Af Amer) POC Glucose (mg/dL) 90 96 Random Glucose Calcium Phosphorus Magnesium Total Bilirubin AST ALT Alkaline Phosphatase Total Protein Albumin Globulin Albumin/Globulin Ratio 05/17/17 05/17/17 05/17/17 06:11 11:25 17:57 WBC RBC Hgb Hct MCV MCH MCHC RDW Plt Count MPV Neut % (Auto) Lymph % (Auto) Vernon % (Auto) Eos % (Auto) Baso % (Auto) Neut # (Auto) Lymph # (Auto) Vernon # (Auto) Eos # (Auto) Baso # (Auto) Sodium 142 Potassium 3.5 L Chloride 100 Carbon Dioxide 28 Anion Gap 18 BUN 11 Creatinine 0.5 L Est GFR ( Amer) > 60 Est GFR (Non-Af Amer) > 60 POC Glucose (mg/dL) 122 H 106 Random Glucose 97 Calcium 9.5 Phosphorus 4.7 H Magnesium 1.3 L Total Bilirubin 0.6 AST 21 ALT 39 Alkaline Phosphatase 169 H Total Protein 7.3 Albumin 3.5 Globulin 3.9 Albumin/Globulin Ratio 0.9 L Assessment/Plan (1) SMAS (superior mesenteric artery syndrome) Current Visit: Yes Status: Acute Comment: (2) Acute renal failure Current Visit: Yes Status: Acute (3) Mental retardation Current Visit: No Status: Acute Attending/Attestation - Attestation I have personally seen and examined this patient.: Yes I have fully participated in the care of the patient.: Yes I have reviewed all pertinent clinical information: Yes Notes (Text): 05/17/17 18:53 patient seen and examined in the intensive care unit. Started on feeding Continue antibiotics Continue present treatment for now Started on risperidone
[2017-05-18] MEDS ORDERED: Dextrose 5%/0.9% NS 1,000 ML IV ONE
[2017-05-18 06:48] LABS: BASO # 0.1 K/uL (0.0-0.2); BASO % 0.5 % (0.0-2.0); EOS # 0.4 K/uL (0.0-0.7); EOS % 3.2 % (0.0-4.0); HEMOGLOBIN 8.6 g/dL (11.0-16.0); LYMPH # 2.7 K/uL (1.0-4.3); LYMPH % 20.9 % (20.0-40.0); MEAN CELL VOLUME 84.6 fL (81.0-99.0); MEAN CORPUSCULAR HGB CONC 34.3 g/dL (33.0-37.0); MEAN PLATELET VOLUME 8.2 fL (7.2-11.7); MONO # 1.2 K/uL (0.0-0.8); MONO % 9.2 % (0.0-10.0); NEUT # 8.7 K/uL (1.8-7.0); NEUT % 66.2 % (50.0-75.0); RBC 2.97 Mil/uL (3.80-5.20); RED CELL DISTRIBUTION WIDTH 15.3 % (11.5-14.5); WHITE BLOOD COUNT 13.1 K/uL (4.8-10.8)
[2017-05-18 07:01] LABS: ALB/GLOB RATIO 0.9 (1.0-2.1); ALBUMIN 3.2 g/dL (3.5-5.0); ALT/SGPT 29 U/L (9-52); AST/SGOT 18 U/L (14-36); BLOOD UREA NITROGEN 8 mg/dL (7-17); CALCIUM 8.9 mg/dl (8.6-10.4); GFR AFRICAN-AMERICAN > 60; GFR NON-AFRICAN AMERICAN > 60
--- NOTE | 2017-05-18 09:26 | CP.PCM.PN ---
<Elliot Ye - Last Filed: 05/18/17 09:31> Subjective - Date & Time of Evaluation Date of Evaluation: 05/18/17 Time of Evaluation: 07:30 - Subjective Subjective: PGY5 GI Fellow Progress Note Re-consulted yesterday by surgery for concern of retrograde flow of feedings/ contrast noted on small bowel follow through. Patient seen and examined bedside. No events overnight noted. Tube feedings were held after noting this on imaging but resumed yesterday without issue. 12 system ROS cannot be performed given patient's chronic psychiatric illness. Objective - Vital Signs/Intake and Output Vital Signs (last 24 hours): Temp Pulse Resp BP Pulse Ox 98.5 F 104 H 14 133/95 H 100 05/18/17 04:00 05/18/17 07:04 05/18/17 07:04 05/18/17 07:04 05/18/17 07:04 Intake and Output: 05/18/17 05/18/17 06:59 18:59 Intake Total 480 50 Output Total 300 Balance 180 50 - Medications Medications: Current Medications Acetaminophen (Tylenol 650mg/20.3ml Solution Ud) 650 mg PO Q4 PRN PRN Reason: Temperature Last Admin: 05/09/17 12:31 Dose: 650 mg Ascorbic Acid (Vitamin C 500 Mg Tab) 500 mg PO DAILY [facility] Last Admin: 05/17/17 09:45 Dose: 500 mg Bisacodyl (Dulcolax) 10 mg TX Q24H PRN PRN Reason: Constipation Last Admin: 05/08/17 06:02 Dose: 10 mg Ergocalciferol (Drisdol 50,000 Intl Units Cap) 1 cap PO QWK [facility] Last Admin: 05/12/17 13:21 Dose: 1 cap Levetiracetam 500 mg/ Sodium (Chloride) 105 mls @ 420 mls/hr IVPB Q12H [facility] Last Admin: 05/17/17 21:24 Dose: 420 mls/hr Dextrose/Sodium Chloride (Dextrose 5%/0.9% Ns 1000 Ml) 1,000 mls @ 50 mls/hr IV .Q20H ONE Stop: 05/18/17 19:59 Last Admin: 05/18/17 00:03 Dose: 50 mls/hr Potassium Chloride (Potassium Chloride 10 Meq/100 Ml) 10 meq in 100 mls @ 100 mls/hr IVPB Q1H [facility] Stop: 05/18/17 11:59 Metoclopramide HCl (Reglan) 10 mg IVP DAILY [facility] Last Admin: 05/17/17 09:44 Dose: 10 mg Metoprolol Tartrate (Lopressor) 100 mg PO BID [facility] Last Admin: 05/17/17 17:53 Dose: 100 mg Metoprolol Tartrate (Lopressor) 5 mg IVP Q2 PRN Last Admin: 05/17/17 02:18 Dose: 5 mg Multivitamins (Hexavitamin) 1 tab PO DAILY [facility] Last Admin: 05/17/17 09:45 Dose: 1 tab Pantoprazole Sodium (Protonix Inj) 20 mg IVP BID [facility] Last Admin: 05/17/17 17:53 Dose: 20 mg Quetiapine Fumarate (Seroquel) 200 mg PO BID [facility] Risperidone (Risperdal Tab) 0.25 mg PO DAILY PRN PRN Reason: Agitation Last Admin: 05/15/17 22:29 Dose: 0.25 mg - Labs Labs: 05/18/17 06:40 05/18/17 06:29 PT 14.0 SECONDS (9.7-12.2) H 04/25/17 06:25 INR 1.2 04/25/17 06:25 APTT 32 SECONDS (21-34) 04/25/17 06:25 - Constitutional Appears: No Acute Distress, Chronically Ill - Eye Exam Eye Exam: PERRL - ENT Exam ENT Exam: Mucous Membranes Dry - Respiratory Exam Respiratory Exam: Clear to Ausculation Bilateral. absent: Rales, Rhonchi, Wheezes - Cardiovascular Exam Cardiovascular Exam: RRR, +S1, +S2 - GI/Abdominal Exam GI & Abdominal Exam: Soft, Normal Bowel Sounds. absent: Distended, Firm, Guarding, Rigid, Tenderness, Organomegaly Additional comments: surgical incision clean and intact; ostomy noted - Extremities Exam Extremities Exam: Normal Inspection. 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 and boby-en-Y feeding jejunostomy -SMA syndrome s/p boby-en-y gastrojejunostomy and boby-en-Y feeding jejunostomy -Schizophrenia, non-verbal Plan: -Case discussed with surgical residents at bedside -After review of films, it is noted that there is retrograde flow of contrast with eventual filling of the colon -Consider surgical revision of gastrojejunostomy based on CT imaging which may reveal tight junction between these structures causing a limited drainage -Will discuss with team to clarify surgical procedure performed and if jejunal feeding tube positioning needs to be adjusted or reversed -Patient tolerating tube feeding at present time -No plan for GI endoscopic interventions at this time <Dov Meade - Last Filed: 05/18/17 09:50> Objective - Vital Signs/Intake and Output Vital Signs (last 24 hours): Temp Pulse Resp BP Pulse Ox 98.5 F 104 H 14 133/95 H 100 05/18/17 04:00 05/18/17 07:04 05/18/17 07:04 05/18/17 07:04 05/18/17 07:04 Intake and Output: 05/18/17 05/18/17 06:59 18:59 Intake Total 480 50 Output Total 300 Balance 180 50 - Medications Medications: Current Medications Acetaminophen (Tylenol 650mg/20.3ml Solution Ud) 650 mg PO Q4 PRN PRN Reason: Temperature Last Admin: 05/09/17 12:31 Dose: 650 mg Ascorbic Acid (Vitamin C 500 Mg Tab) 500 mg PO DAILY [facility] Last Admin: 05/17/17 09:45 Dose: 500 mg Bisacodyl (Dulcolax) 10 mg TX Q24H PRN PRN Reason: Constipation Last Admin: 05/08/17 06:02 Dose: 10 mg Ergocalciferol (Drisdol 50,000 Intl Units Cap) 1 cap PO QWK [facility] Last Admin: 05/12/17 13:21 Dose: 1 cap Levetiracetam 500 mg/ Sodium (Chloride) 105 mls @ 420 mls/hr IVPB Q12H [facility] Last Admin: 05/17/17 21:24 Dose: 420 mls/hr Dextrose/Sodium Chloride (Dextrose 5%/0.9% Ns 1000 Ml) 1,000 mls @ 50 mls/hr IV .Q20H ONE Stop: 05/18/17 19:59 Last Admin: 05/18/17 00:03 Dose: 50 mls/hr Potassium Chloride (Potassium Chloride 10 Meq/100 Ml) 10 meq in 100 mls @ 100 mls/hr IVPB Q1H [facility] Stop: 05/18/17 11:59 Metoclopramide HCl (Reglan) 10 mg IVP DAILY [facility] Last Admin: 05/17/17 09:44 Dose: 10 mg Metoprolol Tartrate (Lopressor) 100 mg PO BID [facility] Last Admin: 05/17/17 17:53 Dose: 100 mg Metoprolol Tartrate (Lopressor) 5 mg IVP Q2 PRN Last Admin: 05/17/17 02:18 Dose: 5 mg Multivitamins (Hexavitamin) 1 tab PO DAILY [facility] Last Admin: 05/17/17 09:45 Dose: 1 tab Pantoprazole Sodium (Protonix Inj) 20 mg IVP BID [facility] Last Admin: 05/17/17 17:53 Dose: 20 mg Quetiapine Fumarate (Seroquel) 200 mg PO BID [facility] Risperidone (Risperdal Tab) 0.25 mg PO DAILY PRN PRN Reason: Agitation Last Admin: 05/15/17 22:29 Dose: 0.25 mg - Labs Labs: 05/18/17 06:40 05/18/17 06:29 PT 14.0 SECONDS (9.7-12.2) H 04/25/17 06:25 INR 1.2 04/25/17 06:25 APTT 32 SECONDS (21-34) 04/25/17 06:25 Attending/Attestation - Attestation I have personally seen and examined this patient.: Yes I have fully participated in the care of the patient.: Yes I have reviewed all pertinent clinical information, including history, physical exam and plan: Yes Notes (Text): 05/18/17 09:45 36 year old female who 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 I have reviewed the CT scans and SBFT extensively. Discussed the case with surgical team at the bedside. During SBFT studies, the contrast flows retrograde from the small bowel, into the stomach, and then eventually distally into the small bowel again and the colon. I suspect the reason for the persistent reflux is that the stomach is filling up with tube feedings from the jejunal feeding tube and the gastrojejunostomy may not be widely patent / functioning well, so gastric emptying is not great, leading to vomiting. Would recommend consideration of surgical revision since she hasn't tolerated J tube or NG tube feedings, suggestive of persistent partial outlet obstruction.
--- NOTE | 2017-05-18 10:43 | CP.CCUPN ---
<Bipin Chopra - Last Filed: 05/18/17 11:33> CCU Subjective - Physician Review Subjective (Free Text): 05/18/17 10:41 patient seen and examined today tube feeds restarted yesterday, held again for gi series today to asses J tube no other issues at this time will continue tube feeds after imaging CCU Objective - Vital Signs / Intake & Output Vital Signs (Last 4 hours): Vital Signs Pulse Resp BP Pulse Ox 05/18/17 07:04 104 H 14 133/95 H 100 05/18/17 07:00 121 H 13 100 Intake and Output (Last 8hrs): Intake & Output 05/17/17 05/18/17 05/18/17 22:59 06:59 14:59 Intake Total 280 400 50 Output Total 300 Balance 280 100 50 Intake: Intake, IV Amount 250 350 50 Left PICC Proximal Port 250 350 50 Tube Feeding 30 20 Other 30 Output: Urine 300 Urine, Voided 300 Other: # Bowel Movements 0 - Physical Exam Head: Positive for: Atraumatic, Normocephalic. Negative for: Tenderness Pupils: Positive for: PERRL Extroacular Muscles: Positive for: EOMI Mouth: Positive for: Moist Mucous Membranes. Negative for: Dry, Drooling Nose (External): Positive for: Other (NGT in place) Nose (Internal): Positive for: Normal Inspection, Moist Neck: Positive for: Other (trach). Negative for: JVD, Lymphadenopathy Respiratory/Chest: Positive for: Clear to Auscultation. Negative for: Respiratory Distress, Accessory Muscle Use Cardiovascular: Positive for: Regular Rate and Rhythm, Normal S1, S2 Abdomen: Positive for: Tenderness (mild tenderness of palpation. patient continues to move her arms towards hands on palpation), Normal Bowel Sounds. Negative for: Distention, Peritoneal Signs, Guarding Upper Extremity: Positive for: Normal Inspection, Normal ROM, Capillary Refill < 2s. Negative for: Edema Lower Extremity: Positive for: Normal Inspection. Negative for: Edema Neurological: Positive for: CN II-XII Intact Skin: Positive for: Warm, Pale Psychiatric: Positive for: Alert - Medications Active Medications: Active Medications Generic Name Dose Route Start Last Admin Trade Name Freq PRN Reason Stop Dose Admin Acetaminophen 650 mg 04/28/17 20:11 05/09/17 12:31 Tylenol 650mg/20.3ml Solution Ud PO 650 mg Q4 PRN Administration Temperature Ascorbic Acid 500 mg 05/12/17 11:15 05/17/17 09:45 Vitamin C 500 Mg Tab PO 500 mg DAILY AGUSTIN Administration Bisacodyl 10 mg 05/07/17 13:35 05/08/17 06:02 Dulcolax IL 10 mg Q24H PRN Administration Constipation Ergocalciferol 1 cap 05/12/17 11:15 05/12/17 13:21 Drisdol 50,000 Intl Units Cap PO 1 cap QWK AGUSTIN Administration Levetiracetam 500 mg/ Sodium 105 mls @ 420 mls/hr 05/03/17 22:00 05/17/17 21: 24 Chloride IVPB 420 mls/hr Q12H AGUSTIN Administration Dextrose/Sodium Chloride 1,000 mls @ 50 mls/hr 05/18/17 00:00 05/18/17 00:03 Dextrose 5%/0.9% Ns 1000 Ml IV 05/18/17 19:59 50 mls/hr .Q20H ONE Administration Potassium Chloride 10 meq in 100 mls @ 100 mls/hr 05/18/17 08:00 Potassium Chloride 10 Meq/100 Ml IVPB 05/18/17 11:59 Q1H AGUSTIN Metoclopramide HCl 10 mg 05/12/17 11:00 05/17/17 09:44 Reglan IVP 10 mg DAILY AGUSTIN Administration Metoprolol Tartrate 100 mg 05/13/17 11:24 05/17/17 17:53 Lopressor PO 100 mg BID AGUSTIN Administration Metoprolol Tartrate 5 mg 05/13/17 14:00 05/17/17 02:18 Lopressor IVP 5 mg Q2 PRN Administration Multivitamins 1 tab 05/17/17 10:00 05/17/17 09:45 Hexavitamin PO 1 tab DAILY AGUSTIN Administration Pantoprazole Sodium 20 mg 04/19/17 18:00 05/17/17 17:53 Protonix Inj IVP 20 mg BID AGUSTIN Administration Risperidone 0.25 mg 05/14/17 15:55 05/15/17 22:29 Risperdal Tab PO 0.25 mg DAILY PRN Administration Agitation - Patient Studies Lab Studies: Lab Studies 05/18/17 05/18/17 05/18/17 Range/Units 06:40 06:29 05:28 WBC 13.1 H (4.8-10.8) K/uL RBC 2.97 L (3.80-5.20) Mil/uL Hgb 8.6 L (11.0-16.0) g/dL Hct 25.1 L (34.0-47.0) % MCV 84.6 (81.0-99.0) fL MCH 29.0 (27.0-31.0) pg MCHC 34.3 (33.0-37.0) g/dL RDW 15.3 H (11.5-14.5) % Plt Count 277 (130-400) K/uL MPV 8.2 (7.2-11.7) fL Neut % (Auto) 66.2 (50.0-75.0) % Lymph % (Auto) 20.9 (20.0-40.0) % Terrell % (Auto) 9.2 (0.0-10.0) % Eos % (Auto) 3.2 (0.0-4.0) % Baso % (Auto) 0.5 (0.0-2.0) % Neut # (Auto) 8.7 H (1.8-7.0) K/uL Lymph # (Auto) 2.7 (1.0-4.3) K/uL Terrell # (Auto) 1.2 H (0.0-0.8) K/uL Eos # (Auto) 0.4 (0.0-0.7) K/uL Baso # (Auto) 0.1 (0.0-0.2) K/uL Sodium 139 (132-148) mmol/L Potassium 3.5 L (3.6-5.2) mmol/L Chloride 101 (98-107) mmol/L Carbon Dioxide 28 (22-30) mmol/L Anion Gap 15 (10-20) BUN 8 (7-17) mg/dL Creatinine 0.5 L (0.7-1.2) mg/dL Est GFR ( Amer) > 60 Est GFR (Non-Af Amer) > 60 POC Glucose (mg/dL) 90 (65-110) mg/dL Random Glucose 91 (65-105) mg/dL Calcium 8.9 (8.6-10.4) mg/dl Phosphorus 3.8 (2.5-4.5) mg/dL Magnesium 1.5 L (1.6-2.3) mg/dL Total Bilirubin 0.5 (0.2-1.3) mg/dL AST 18 (14-36) U/L ALT 29 (9-52) U/L Alkaline Phosphatase 144 H (38-126) U/L Total Protein 6.8 (6.3-8.3) g/dL Albumin 3.2 L (3.5-5.0) g/dL Globulin 3.6 (2.2-3.9) gm/dL Albumin/Globulin Ratio 0.9 L (1.0-2.1) 05/17/17 05/17/17 05/17/17 Range/Units 23:54 17:57 11:25 WBC (4.8-10.8) K/uL RBC (3.80-5.20) Mil/uL Hgb (11.0-16.0) g/dL Hct (34.0-47.0) % MCV (81.0-99.0) fL MCH (27.0-31.0) pg MCHC (33.0-37.0) g/dL RDW (11.5-14.5) % Plt Count (130-400) K/uL MPV (7.2-11.7) fL Neut % (Auto) (50.0-75.0) % Lymph % (Auto) (20.0-40.0) % Terrell % (Auto) (0.0-10.0) % Eos % (Auto) (0.0-4.0) % Baso % (Auto) (0.0-2.0) % Neut # (Auto) (1.8-7.0) K/uL Lymph # (Auto) (1.0-4.3) K/uL Terrell # (Auto) (0.0-0.8) K/uL Eos # (Auto) (0.0-0.7) K/uL Baso # (Auto) (0.0-0.2) K/uL Sodium (132-148) mmol/L Potassium (3.6-5.2) mmol/L Chloride (98-107) mmol/L Carbon Dioxide (22-30) mmol/L Anion Gap (10-20) BUN (7-17) mg/dL Creatinine (0.7-1.2) mg/dL Est GFR ( Amer) Est GFR (Non-Af Amer) POC Glucose (mg/dL) 91 106 122 H (65-110) mg/dL Random Glucose (65-105) mg/dL Calcium (8.6-10.4) mg/dl Phosphorus (2.5-4.5) mg/dL Magnesium (1.6-2.3) mg/dL Total Bilirubin (0.2-1.3) mg/dL AST (14-36) U/L ALT (9-52) U/L Alkaline Phosphatase (38-126) U/L Total Protein (6.3-8.3) g/dL Albumin (3.5-5.0) g/dL Globulin (2.2-3.9) gm/dL Albumin/Globulin Ratio (1.0-2.1) Laboratory Results - last 24 hr 05/17/17 05/17/17 05/17/17 11:25 17:57 23:54 WBC RBC Hgb Hct MCV MCH MCHC RDW Plt Count MPV Neut % (Auto) Lymph % (Auto) Terrell % (Auto) Eos % (Auto) Baso % (Auto) Neut # (Auto) Lymph # (Auto) Terrell # (Auto) Eos # (Auto) Baso # (Auto) Sodium Potassium Chloride Carbon Dioxide Anion Gap BUN Creatinine Est GFR ( Amer) Est GFR (Non-Af Amer) POC Glucose (mg/dL) 122 H 106 91 Random Glucose Calcium Phosphorus Magnesium Total Bilirubin AST ALT Alkaline Phosphatase Total Protein Albumin Globulin Albumin/Globulin Ratio 05/18/17 05/18/17 05/18/17 05:28 06:29 06:40 WBC 13.1 H RBC 2.97 L Hgb 8.6 L Hct 25.1 L MCV 84.6 MCH 29.0 MCHC 34.3 RDW 15.3 H Plt Count 277 MPV 8.2 Neut % (Auto) 66.2 Lymph % (Auto) 20.9 Terrell % (Auto) 9.2 Eos % (Auto) 3.2 Baso % (Auto) 0.5 Neut # (Auto) 8.7 H Lymph # (Auto) 2.7 Terrell # (Auto) 1.2 H Eos # (Auto) 0.4 Baso # (Auto) 0.1 Sodium 139 Potassium 3.5 L Chloride 101 Carbon Dioxide 28 Anion Gap 15 BUN 8 Creatinine 0.5 L Est GFR ( Amer) > 60 Est GFR (Non-Af Amer) > 60 POC Glucose (mg/dL) 90 Random Glucose 91 Calcium 8.9 Phosphorus 3.8 Magnesium 1.5 L Total Bilirubin 0.5 AST 18 ALT 29 Alkaline Phosphatase 144 H Total Protein 6.8 Albumin 3.2 L Globulin 3.6 Albumin/Globulin Ratio 0.9 L Fingerstick Blood Sugar Results: 90 Assessment/Plan - Assessment and Plan (Free Text) Assessment: 36F s/p gastroj, jtube Plan: Psych: Schizophrenia - Seroquel 200mg PO BID consider making standing doses - Risperdal 0.25mg PO qd PRN for agitation Neuro: Seizure disorder - Keppra 500mg @ 420ml/hr IVPD q12h - Metoclopramide 10mg IVP qd Cards: Tachycardia (persistent), HTN - Lopressor 100mg BID; 5mg IV q2h PRN given this AM Pulm: PRVC ventilator - CXR taken this AM showed trach tube, R central venous catheter, NGT, and L PICC all in place and stable; positive for subtle patchy opacities @ medial R lower lobe - CPAP 5ps 10FiO2 40%, vent settings back to PRVC 116 tv 450 FiO2 40% p+5 (per nurse note) - O2 via Trach Collar; add T for inline suction for trach GI: Biliary emesis, constipation - Small bowel series taken at bedside with contrast; no leaks/extravasation - persistent reflux likely 2/2 poor patency/ partial outlet obstruction of gastrojejunostomy, GI (Cassi) recommending surgical revision, as pt not tolerating J tube or NG tube feeds - Dulcolax 10mg IL qd PRN Renal: UTI (g+ cocci in urine 05/02) - resolved, check UA reflex c/s PPx: - Drisdol 50,000 IU 1cap PO qwk - VitC 500mg tab PO qd - Multivitamin: 5ml PO qd - Heparin 5000 U SC q8 - Protonix 20mg IVP BID - KCl 10mEq/100 ml @ 100ml/hr IVPB q1h - MgSO4 1g/100ml D5W @ 200 ml/hr - Dextrose 5%/0.9% NS 100ml @ 50 ml/hr IV q20h <Jose Hernandez S - Last Filed: 05/18/17 16:36> CCU Objective - Vital Signs / Intake & Output Vital Signs (Last 4 hours): Vital Signs Temp Pulse Resp BP Pulse Ox 05/18/17 16:04 109 H 14 88/50 L 100 05/18/17 16:00 97.6 F 109 H 14 100 05/18/17 15:30 115 H 13 93/53 L 100 05/18/17 15:28 118 H 05/18/17 14:04 94 H 15 122/88 100 05/18/17 14:00 86 14 100 05/18/17 13:04 103 H 14 114/80 100 05/18/17 13:00 87 20 100 Intake and Output (Last 8hrs): Intake & Output 05/18/17 05/18/17 05/18/17 06:59 14:59 22:59 Intake Total 400 900 100 Output Total 300 Balance 100 900 100 Intake: Intake, IV Amount 350 900 100 Left Distal Port PICC 300 Left PICC Proximal Port 350 600 100 Tube Feeding 20 Other 30 Output: Urine 300 Urine, Voided 300 Other: # Bowel Movements 0 - Medications Active Medications: Active Medications Generic Name Dose Route Start Last Admin Trade Name Freq PRN Reason Stop Dose Admin Acetaminophen 650 mg 04/28/17 20:11 05/09/17 12:31 Tylenol 650mg/20.3ml Solution Ud PO 650 mg Q4 PRN Administration Temperature Ascorbic Acid 500 mg 05/12/17 11:15 05/18/17 11:09 Vitamin C 500 Mg Tab PO 500 mg DAILY AGUSTIN Administration Bisacodyl 10 mg 05/07/17 13:35 05/08/17 06:02 Dulcolax IL 10 mg Q24H PRN Administration Constipation Ergocalciferol 1 cap 05/12/17 11:15 05/12/17 13:21 Drisdol 50,000 Intl Units Cap PO 1 cap QWK AGUSTIN Administration Levetiracetam 500 mg/ Sodium 105 mls @ 420 mls/hr 05/03/17 22:00 05/18/17 11: 12 Chloride IVPB 420 mls/hr Q12H AGUSTIN Administration Dextrose/Sodium Chloride 1,000 mls @ 50 mls/hr 05/18/17 00:00 05/18/17 00:03 Dextrose 5%/0.9% Ns 1000 Ml IV 05/18/17 19:59 50 mls/hr .Q20H ONE Administration Metoclopramide HCl 10 mg 05/12/17 11:00 05/18/17 11:09 Reglan IVP 10 mg DAILY AGUSTIN Administration Metoprolol Tartrate 100 mg 05/13/17 11:24 05/18/17 11:09 Lopressor PO 100 mg BID AGUSTIN Administration Metoprolol Tartrate 5 mg 05/13/17 14:00 05/17/17 02:18 Lopressor IVP 5 mg Q2 PRN Administration Multivitamins 1 tab 05/17/17 10:00 05/18/17 11:09 Hexavitamin PO 1 tab DAILY AGUSTIN Administration Pantoprazole Sodium 20 mg 04/19/17 18:00 05/18/17 11:09 Protonix Inj IVP 20 mg BID AGUSTIN Administration Quetiapine Fumarate 200 mg 05/18/17 11:45 05/18/17 14:23 Seroquel PO 200 mg BID AGUSTIN Administration - Patient Studies Lab Studies: Microbiology Studies 04/18/17 07:27 Blood Fungal Culture - Final Other: Please Indicate Lab Studies 05/18/17 05/18/17 05/18/17 Range/Units 13:00 06:40 06:29 WBC 13.1 H (4.8-10.8) K/uL RBC 2.97 L (3.80-5.20) Mil/uL Hgb 8.6 L (11.0-16.0) g/dL Hct 25.1 L (34.0-47.0) % MCV 84.6 (81.0-99.0) fL MCH 29.0 (27.0-31.0) pg MCHC 34.3 (33.0-37.0) g/dL RDW 15.3 H (11.5-14.5) % Plt Count 277 (130-400) K/uL MPV 8.2 (7.2-11.7) fL Neut % (Auto) 66.2 (50.0-75.0) % Lymph % (Auto) 20.9 (20.0-40.0) % Terrell % (Auto) 9.2 (0.0-10.0) % Eos % (Auto) 3.2 (0.0-4.0) % Baso % (Auto) 0.5 (0.0-2.0) % Neut # (Auto) 8.7 H (1.8-7.0) K/uL Lymph # (Auto) 2.7 (1.0-4.3) K/uL Terrell # (Auto) 1.2 H (0.0-0.8) K/uL Eos # (Auto) 0.4 (0.0-0.7) K/uL Baso # (Auto) 0.1 (0.0-0.2) K/uL Sodium 139 (132-148) mmol/L Potassium 3.5 L (3.6-5.2) mmol/L Chloride 101 (98-107) mmol/L Carbon Dioxide 28 (22-30) mmol/L Anion Gap 15 (10-20) BUN 8 (7-17) mg/dL Creatinine 0.5 L (0.7-1.2) mg/dL Est GFR ( Amer) > 60 Est GFR (Non-Af Amer) > 60 POC Glucose (mg/dL) 103 (65-110) mg/dL Random Glucose 91 (65-105) mg/dL Calcium 8.9 (8.6-10.4) mg/dl Phosphorus 3.8 (2.5-4.5) mg/dL Magnesium 1.5 L (1.6-2.3) mg/dL Total Bilirubin 0.5 (0.2-1.3) mg/dL AST 18 (14-36) U/L ALT 29 (9-52) U/L Alkaline Phosphatase 144 H (38-126) U/L Total Protein 6.8 (6.3-8.3) g/dL Albumin 3.2 L (3.5-5.0) g/dL Globulin 3.6 (2.2-3.9) gm/dL Albumin/Globulin Ratio 0.9 L (1.0-2.1) 05/18/17 05/17/17 05/17/17 Range/Units 05:28 23:54 17:57 WBC (4.8-10.8) K/uL RBC (3.80-5.20) Mil/uL Hgb (11.0-16.0) g/dL Hct (34.0-47.0) % MCV (81.0-99.0) fL MCH (27.0-31.0) pg MCHC (33.0-37.0) g/dL RDW (11.5-14.5) % Plt Count (130-400) K/uL MPV (7.2-11.7) fL Neut % (Auto) (50.0-75.0) % Lymph % (Auto) (20.0-40.0) % Terrell % (Auto) (0.0-10.0) % Eos % (Auto) (0.0-4.0) % Baso % (Auto) (0.0-2.0) % Neut # (Auto) (1.8-7.0) K/uL Lymph # (Auto) (1.0-4.3) K/uL Terrell # (Auto) (0.0-0.8) K/uL Eos # (Auto) (0.0-0.7) K/uL Baso # (Auto) (0.0-0.2) K/uL Sodium (132-148) mmol/L Potassium (3.6-5.2) mmol/L Chloride (98-107) mmol/L Carbon Dioxide (22-30) mmol/L Anion Gap (10-20) BUN (7-17) mg/dL Creatinine (0.7-1.2) mg/dL Est GFR ( Amer) Est GFR (Non-Af Amer) POC Glucose (mg/dL) 90 91 106 (65-110) mg/dL Random Glucose (65-105) mg/dL Calcium (8.6-10.4) mg/dl Phosphorus (2.5-4.5) mg/dL Magnesium (1.6-2.3) mg/dL Total Bilirubin (0.2-1.3) mg/dL AST (14-36) U/L ALT (9-52) U/L Alkaline Phosphatase (38-126) U/L Total Protein (6.3-8.3) g/dL Albumin (3.5-5.0) g/dL Globulin (2.2-3.9) gm/dL Albumin/Globulin Ratio (1.0-2.1) Laboratory Results - last 24 hr 05/17/17 05/17/17 05/18/17 17:57 23:54 05:28 WBC RBC Hgb Hct MCV MCH MCHC RDW Plt Count MPV Neut % (Auto) Lymph % (Auto) Terrell % (Auto) Eos % (Auto) Baso % (Auto) Neut # (Auto) Lymph # (Auto) Terrell # (Auto) Eos # (Auto) Baso # (Auto) Sodium Potassium Chloride Carbon Dioxide Anion Gap BUN Creatinine Est GFR ( Amer) Est GFR (Non-Af Amer) POC Glucose (mg/dL) 106 91 90 Random Glucose Calcium Phosphorus Magnesium Total Bilirubin AST ALT Alkaline Phosphatase Total Protein Albumin Globulin Albumin/Globulin Ratio 05/18/17 05/18/17 05/18/17 06:29 06:40 13:00 WBC 13.1 H RBC 2.97 L Hgb 8.6 L Hct 25.1 L MCV 84.6 MCH 29.0 MCHC 34.3 RDW 15.3 H Plt Count 277 MPV 8.2 Neut % (Auto) 66.2 Lymph % (Auto) 20.9 Terrell % (Auto) 9.2 Eos % (Auto) 3.2 Baso % (Auto) 0.5 Neut # (Auto) 8.7 H Lymph # (Auto) 2.7 Terrell # (Auto) 1.2 H Eos # (Auto) 0.4 Baso # (Auto) 0.1 Sodium 139 Potassium 3.5 L Chloride 101 Carbon Dioxide 28 Anion Gap 15 BUN 8 Creatinine 0.5 L Est GFR ( Amer) > 60 Est GFR (Non-Af Amer) > 60 POC Glucose (mg/dL) 103 Random Glucose 91 Calcium 8.9 Phosphorus 3.8 Magnesium 1.5 L Total Bilirubin 0.5 AST 18 ALT 29 Alkaline Phosphatase 144 H Total Protein 6.8 Albumin 3.2 L Globulin 3.6 Albumin/Globulin Ratio 0.9 L Assessment/Plan (1) SMAS (superior mesenteric artery syndrome) Current Visit: Yes Status: Acute Comment: (2) Acute renal failure Current Visit: Yes Status: Acute (3) Mental retardation Current Visit: No Status: Acute Attending/Attestation - Attestation I have personally seen and examined this patient.: Yes I have fully participated in the care of the patient.: Yes I have reviewed all pertinent clinical information: Yes Notes (Text): 05/18/17 16:35 patient seen and examined in the intensive care unit. No obstruction or gastroesophageal reflux on upper GI series yesterday Start feeding Continue antibiotics
[2017-05-18] MEDS: Multiple Vitamins Tab PO SCH (11:09)
[2017-05-18] MEDS: levETIRAcetam 500 MG in Sodium Chloride 0.9% 100 ML IVPB SCH ×2 (11:12→21:36)
[2017-05-18] MEDS: Magnesium Sulfate 1 gm in D5W 1 GM/100 ML BAG IVPB SCH ×5 (11:56→12:32)
--- NOTE | 2017-05-18 13:25 | CP.PCM.PN ---
Subjective - Date & Time of Evaluation Date of Evaluation: 05/18/17 Time of Evaluation: 07:55 - Subjective Subjective: General Surgery Pt S&E, NAEO. Non verbal. Tube feeds off. jejunostomy pink and patent. NGT in place. On trach collar Objective - Vital Signs/Intake and Output Vital Signs (last 24 hours): Temp Pulse Resp BP Pulse Ox 97.6 F 109 H 22 123/84 100 05/18/17 12:00 05/18/17 12:04 05/18/17 12:04 05/18/17 12:04 05/18/17 12:04 Intake and Output: 05/18/17 05/18/17 06:59 18:59 Intake Total 480 750 Output Total 300 Balance 180 750 - Medications Medications: Current Medications Acetaminophen (Tylenol 650mg/20.3ml Solution Ud) 650 mg PO Q4 PRN PRN Reason: Temperature Last Admin: 05/09/17 12:31 Dose: 650 mg Ascorbic Acid (Vitamin C 500 Mg Tab) 500 mg PO DAILY [facility] Last Admin: 05/18/17 11:09 Dose: 500 mg Bisacodyl (Dulcolax) 10 mg [place] Q24H PRN PRN Reason: Constipation Last Admin: 05/08/17 06:02 Dose: 10 mg Ergocalciferol (Drisdol 50,000 Intl Units Cap) 1 cap PO QWK [facility] Last Admin: 05/12/17 13:21 Dose: 1 cap Levetiracetam 500 mg/ Sodium (Chloride) 105 mls @ 420 mls/hr IVPB Q12H [facility] Last Admin: 05/18/17 11:12 Dose: 420 mls/hr Dextrose/Sodium Chloride (Dextrose 5%/0.9% Ns 1000 Ml) 1,000 mls @ 50 mls/hr IV .Q20H ONE Stop: 05/18/17 19:59 Last Admin: 05/18/17 00:03 Dose: 50 mls/hr Metoclopramide HCl (Reglan) 10 mg IVP DAILY [facility] Last Admin: 05/18/17 11:09 Dose: 10 mg Metoprolol Tartrate (Lopressor) 100 mg PO BID [facility] Last Admin: 05/18/17 11:09 Dose: 100 mg Metoprolol Tartrate (Lopressor) 5 mg IVP Q2 PRN Last Admin: 05/17/17 02:18 Dose: 5 mg Multivitamins (Hexavitamin) 1 tab PO DAILY [facility] Last Admin: 05/18/17 11:09 Dose: 1 tab Pantoprazole Sodium (Protonix Inj) 20 mg IVP BID [facility] Last Admin: 05/18/17 11:09 Dose: 20 mg Quetiapine Fumarate (Seroquel) 200 mg PO BID [facility] - Labs Labs: 05/18/17 06:40 05/18/17 06:29 PT 14.0 SECONDS (9.7-12.2) H 04/25/17 06:25 INR 1.2 04/25/17 06:25 APTT 32 SECONDS (21-34) 04/25/17 06:25 - Constitutional Appears: Non-toxic, No Acute Distress - Head Exam Head Exam: ATRAUMATIC, NORMOCEPHALIC - Respiratory Exam Respiratory Exam: NORMAL BREATHING PATTERN. absent: Respiratory Distress - GI/Abdominal Exam GI & Abdominal Exam: Soft. absent: Distended, Firm, Guarding, Rigid, Tenderness , Rebound Additional comments: feeding ostomy functioning. Incision C/D/I - Back Exam Back Exam: absent: CVA tenderness (L), CVA tenderness (R) - Neurological Exam Neurological Exam: Awake (not verbally responsive) - Skin Skin Exam: Dry, Warm Assessment and Plan - Assessment and Plan (Free Text) Assessment: 36F POD#30 s/p gastrojejunostomy w/ bypass and feeding jejunostomy Plan: - May need better positioning of feeding tube or smaller Balloon. - Some concern for a stricture at anastamoses, would need endoscopic evaluation to rule out - Will leave diagram of surgery in pt chart for reference - Follow up xrays - anti-emetics PRN - medical management per PMD/Critical Care - May resume tube feeds at a low rate after xrays D/W Dr. Andrea Seay PGY4
[2017-05-18] MEDS ORDERED: Iohexol 240 200 ML ONE (14:37)
--- NOTE | 2017-05-18 16:25 | RAD ---
PROCEDURE: Limited upper GI series HISTORY: Evaluate for reflux COMPARISON: None TECHNIQUE: Limited single-contrast upper GI series was performed. 60 cc Omnipaque was injected through the nasogastric tube FINDINGS: There is smooth passage of contrast through the nasogastric tube into the stomach. There is no evidence of gastroesophageal reflux or distal esophageal obstruction or stricture. The stomach is normal in position an there is smooth passage of contrast into the duodenum. The total fluoroscopic time was 0.7 minutes. IMPRESSION: No evidence of gastroesophageal reflux or distal esophageal obstruction on this limited single contrast upper GI examination.
[2017-05-18] MEDS: Metoprolol 1 mg/ml Inj IVP PRN (21:35)
[2017-05-19] MEDS: Metoprolol 1 mg/ml Inj IVP PRN (05:44)
[2017-05-19 07:07] LABS: BLOOD UREA NITROGEN 6 mg/dL (7-17); CALCIUM 8.9 mg/dl (8.6-10.4); GFR AFRICAN-AMERICAN > 60; GFR NON-AFRICAN AMERICAN > 60
[2017-05-19] MEDS ORDERED: Magnesium Sulfate 1 gm in D5W 1 GM/100 ML BAG IVPB ONE ×2 (07:37→10:27)
[2017-05-19] MEDS ORDERED: Potassium Chloride 20 mEq/15 ml LIQ UD PO ONE ×2 (07:38→10:30)
--- NOTE | 2017-05-19 08:47 | CP.PCM.PN ---
Subjective - Date & Time of Evaluation Date of Evaluation: 05/19/17 Time of Evaluation: 07:10 - Subjective Subjective: General surgery progress note for Dr. Bishnu Rothman, PGY-1 Pt S & E at bedside. Pt awake, resting comfortably in bed. Non verbal. No acute events overnight as per nursing. On trach collar. NGT in place- tube feeds at 25. Objective - Vital Signs/Intake and Output Vital Signs (last 24 hours): Temp Pulse Resp BP Pulse Ox 98.3 F 114 H 21 110/81 100 05/19/17 04:00 05/19/17 06:58 05/19/17 06:58 05/19/17 06:58 05/19/17 06:58 Intake and Output: 05/19/17 05/19/17 06:59 18:59 Intake Total 455 25 Output Total 100 Balance 355 25 - Medications Medications: Current Medications Acetaminophen (Tylenol 650mg/20.3ml Solution Ud) 650 mg PO Q4 PRN PRN Reason: Temperature Last Admin: 05/09/17 12:31 Dose: 650 mg Ascorbic Acid (Vitamin C 500 Mg Tab) 500 mg PO DAILY [facility] Last Admin: 05/18/17 11:09 Dose: 500 mg Bisacodyl (Dulcolax) 10 mg [place] Q24H PRN PRN Reason: Constipation Last Admin: 05/08/17 06:02 Dose: 10 mg Ergocalciferol (Drisdol 50,000 Intl Units Cap) 1 cap PO QWK [facility] Last Admin: 05/12/17 13:21 Dose: 1 cap Levetiracetam 500 mg/ Sodium (Chloride) 105 mls @ 420 mls/hr IVPB Q12H [facility] Last Admin: 05/18/17 21:36 Dose: 420 mls/hr Metoclopramide HCl (Reglan) 10 mg IVP DAILY [facility] Last Admin: 05/18/17 11:09 Dose: 10 mg Metoprolol Tartrate (Lopressor) 100 mg PO BID [facility] Last Admin: 05/18/17 19:25 Dose: Not Given Metoprolol Tartrate (Lopressor) 5 mg IVP Q2 PRN Last Admin: 05/19/17 05:44 Dose: 5 mg Multivitamins (Hexavitamin) 1 tab PO DAILY [facility] [place] Last Admin: 05/18/17 11:09 Dose: 1 tab Pantoprazole Sodium (Protonix Inj) 20 mg IVP BID [facility] [place] Last Admin: 05/18/17 17:29 Dose: 20 mg Quetiapine Fumarate (Seroquel) 200 mg PO BID [facility] [place] Last Admin: 05/18/17 17:33 Dose: Not Given - Labs Labs: 05/18/17 06:40 05/19/17 06:30 PT 14.0 SECONDS (9.7-12.2) H 04/25/17 06:25 INR 1.2 04/25/17 06:25 APTT 32 SECONDS (21-34) 04/25/17 06:25 - Constitutional Appears: Non-toxic, No Acute Distress - Head Exam Head Exam: ATRAUMATIC, NORMAL INSPECTION, NORMOCEPHALIC - Eye Exam Eye Exam: EOMI, Normal appearance - ENT Exam ENT Exam: Mucous Membranes Moist, Normal Exam - Neck Exam Neck Exam: Full ROM, Normal Inspection - Respiratory Exam Respiratory Exam: NORMAL BREATHING PATTERN - Cardiovascular Exam Cardiovascular Exam: Tachycardia, +S1, +S2 - GI/Abdominal Exam GI & Abdominal Exam: Soft. absent: Distended, Firm, Guarding, Rigid, Tenderness Additional comments: Ostomy bag with scant dark brownish-green liquid output w/J tube in place Well healed midline incision - Extremities Exam Extremities Exam: Normal Inspection - Neurological Exam Neurological Exam: Alert, Awake Additional comments: Non verbal at baseline - Psychiatric Exam Additional comments: Non verbal - Skin Skin Exam: Dry, Intact, Normal Color, Warm Assessment and Plan - Assessment and Plan (Free Text) Assessment: 36F POD#31 s/p gastrojejunostomy w/ bypass and feeding jejunostomy Plan: Balloon deflated as per Dr. Mendez Plan for endoscopic evaluation to R/O stricture on Tuesday- 05/23 as per GI Surgical diagram left in pt chart for reference Cont anti-emetic PRN Cont tube feeds at low rate Further mgmt as per ICU/primary teams ISIDRO attending Lorna, PGY-1
[2017-05-19] MEDS: Ergocalciferol 50,000 Intl Units Cap PO SCH (11:10)
[2017-05-19] MEDS: Multiple Vitamins Tab PO SCH (11:10)
[2017-05-19] MEDS: levETIRAcetam 500 MG in Sodium Chloride 0.9% 100 ML IVPB SCH ×2 (11:11→21:00)
--- NOTE | 2017-05-19 17:47 | CP.CCUPN ---
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 She is currently post-operative day #31 status post gastrojejunostomy with bypass feeding tube placed. She continues with regurgitation of tube feedings at 25cc. Her past medical history includes acute pancreatitis, sepsis, renal insufficiency, and schizophrenia. Next of kin: Dee Rodrigues (brother): [phone] Code: full (presumed) Psych: Schizophrenia - Seroquel 200mg PO BID - measure QTc and call if >500 Neuro: Seizure disorder - Keppra 500mg @ 420ml/hr IVPD q12h - Metoclopramide 10mg IVP qd Cards: Tachycardia (persistent), HTN - D/C Lopressor 100mg BID - Lopressor 25mg q6 PO - 5mg IV q2h PRN given this AM Pulm: PRVC ventilator - CXR taken this AM showed trach tube, R central venous catheter, NGT, and L PICC all in place and stable; positive for subtle patchy opacities @ medial R lower lobe - CPAP 5ps 10FiO2 40%, vent settings back to PRVC 116 tv 450 FiO2 40% p+5 (per nurse note) - O2 via Trach Collar; add T for inline suction for trach GI: Biliary emesis, constipation - Dulcolax 10mg [place] qd PRN (last BM was 05/15) - titrate to 2-3 BM qd - resume tube feeds slowly and c/s GI for endoscopy 05/23 to assess patency of jejunostomy - GI rad (Schultz) read no reflux/obstruction from series on 05/18 PPx: - Drisdol 50,000 IU 1cap PO qwk - VitC 500mg tab PO qd - Multivitamin: 5ml PO qd - Heparin 5000 U SC q8 - Protonix 20mg IVP BID - KCl 10mEq/100 ml @ 100ml/hr IVPB q1h - MgSO4 1g/100ml D5W @ 200 ml/hr - Dextrose 5%/0.9% NS 100ml @ 50 ml/hr IV q20h - c/s surgery to remove perma-cath CCU Objective - Vital Signs / Intake & Output Vital Signs (Last 4 hours): Vital Signs Pulse Resp BP Pulse Ox 05/19/17 17:13 124 H 93/61 L 05/19/17 17:00 99 H 17 100 05/19/17 16:58 105 H 15 93/60 L 100 05/19/17 16:00 101 H 15 100 05/19/17 15:58 99 H 14 95/61 L 100 05/19/17 15:00 102 H 14 100 05/19/17 14:58 105 H 22 88/56 L 100 05/19/17 14:00 105 H 17 85/42 L 100 05/19/17 13:58 102 H 19 79/49 L 100 05/19/17 13:50 103 H 19 85/48 L 100 Intake and Output (Last 8hrs): Intake & Output 05/19/17 05/19/17 05/19/17 06:59 14:59 22:59 Intake Total 175 325 190 Output Total 40 200 Balance 135 325 -10 Intake: Intake, IV Amount 100 100 Left PICC Proximal Port 100 100 Tube Feeding 175 225 90 Output: Drainage 40 jejunostomy 40 Urine 200 Urine, Voided 200 Other: # Voids Urine, Voided 0 0 # Bowel Movements 0 0 - Physical Exam Head: Positive for: Atraumatic, Normocephalic. Negative for: Tenderness Pupils: Positive for: PERRL Extroacular Muscles: Positive for: EOMI Mouth: Positive for: Moist Mucous Membranes. Negative for: Dry, Drooling Nose (External): Positive for: Other (NGT in place) Nose (Internal): Positive for: Normal Inspection, Moist Neck: Positive for: Other (trach). Negative for: JVD, Lymphadenopathy Respiratory/Chest: Positive for: Clear to Auscultation. Negative for: Respiratory Distress, Accessory Muscle Use Cardiovascular: Positive for: Regular Rate and Rhythm, Normal S1, S2 Abdomen: Positive for: Tenderness (mild tenderness of palpation. patient continues to move her arms towards hands on palpation), Normal Bowel Sounds. Negative for: Distention, Peritoneal Signs, Guarding Upper Extremity: Positive for: Normal Inspection, Normal ROM, Capillary Refill < 2s. Negative for: Edema Lower Extremity: Positive for: Normal Inspection. Negative for: Edema Neurological: Positive for: CN II-XII Intact Skin: Positive for: Warm, Pale Psychiatric: Positive for: Alert - Medications Active Medications: Active Medications Generic Name Dose Route Start Last Admin Trade Name Freq PRN Reason Stop Dose Admin Acetaminophen 650 mg 04/28/17 20:11 05/09/17 12:31 Tylenol 650mg/20.3ml Solution Ud PO 650 mg Q4 PRN Administration Temperature Ascorbic Acid 500 mg 05/12/17 11:15 05/19/17 11:11 Vitamin C 500 Mg Tab PO 500 mg DAILY AGUSTIN Administration Bisacodyl 10 mg 05/07/17 13:35 05/08/17 06:02 Dulcolax WY 10 mg Q24H PRN Administration Constipation Ergocalciferol 1 cap 05/12/17 11:15 05/19/17 11:10 Drisdol 50,000 Intl Units Cap PO 1 cap QWK AGUSTIN Administration Levetiracetam 500 mg/ Sodium 105 mls @ 420 mls/hr 05/03/17 22:00 05/19/17 11: 11 Chloride IVPB 420 mls/hr Q12H AGUSTIN Administration Metoclopramide HCl 10 mg 05/12/17 11:00 05/19/17 11:11 Reglan IVP 10 mg DAILY AGUSTIN Administration Metoprolol Tartrate 100 mg 05/13/17 11:24 05/19/17 17:06 Lopressor PO Not Given BID AGUSTIN Metoprolol Tartrate 5 mg 05/13/17 14:00 05/19/17 05:44 Lopressor IVP 5 mg Q2 PRN Administration Multivitamins 1 tab 05/17/17 10:00 05/19/17 11:10 Hexavitamin PO 1 tab DAILY AGUSTIN Administration Quetiapine Fumarate 200 mg 05/18/17 11:45 05/19/17 11:10 Seroquel PO 200 mg BID AGUSTIN Administration - Patient Studies Lab Studies: Microbiology Studies 04/18/17 07:27 Blood Fungal Culture - Final Other: Please Indicate Lab Studies 05/19/17 05/19/17 05/18/17 Range/Units 11:52 06:30 23:49 Sodium 138 (132-148) mmol/L Potassium 3.7 (3.6-5.2) mmol/L Chloride 100 (98-107) mmol/L Carbon Dioxide 30 (22-30) mmol/L Anion Gap 13 (10-20) BUN 6 L (7-17) mg/dL Creatinine 0.5 L (0.7-1.2) mg/dL Est GFR ( Amer) > 60 Est GFR (Non-Af Amer) > 60 POC Glucose (mg/dL) 90 87 (65-110) mg/dL Random Glucose 92 (65-105) mg/dL Calcium 8.9 (8.6-10.4) mg/dl Magnesium 1.6 (1.6-2.3) mg/dL Laboratory Results - last 24 hr 05/18/17 05/19/17 05/19/17 23:49 06:30 11:52 Sodium 138 Potassium 3.7 Chloride 100 Carbon Dioxide 30 Anion Gap 13 BUN 6 L Creatinine 0.5 L Est GFR ( Amer) > 60 Est GFR (Non-Af Amer) > 60 POC Glucose (mg/dL) 87 90 Random Glucose 92 Calcium 8.9 Magnesium 1.6 EKG/Cardiology Studies: Cardiology / EKG Studies 05/19/17 14:18 EKG [ELECTROCARDIOGRAM] Routine Comment: Mode Of Transportation: Reason For Exam: long QT Fingerstick Blood Sugar Results: 92 <Kayden Aguilar M - Last Filed: 05/19/17 20:53> CCU Objective - Vital Signs / Intake & Output Vital Signs (Last 4 hours): Vital Signs Pulse Resp BP Pulse Ox 05/19/17 18:00 100 H 14 100 05/19/17 17:58 102 H 14 97/64 L 100 05/19/17 17:13 124 H 93/61 L 05/19/17 17:00 99 H 17 100 05/19/17 16:58 105 H 15 93/60 L 100 Intake and Output (Last 8hrs): Intake & Output 05/19/17 05/19/17 05/19/17 06:59 14:59 22:59 Intake Total 175 325 220 Output Total 40 200 Balance 135 325 20 Intake: Intake, IV Amount 100 100 Left PICC Proximal Port 100 100 Tube Feeding 175 225 120 Output: Drainage 40 jejunostomy 40 Urine 200 Urine, Voided 200 Other: # Voids Urine, Voided 0 0 # Bowel Movements 0 0 - Medications Active Medications: Active Medications Generic Name Dose Route Start Last Admin Trade Name Freq PRN Reason Stop Dose Admin Acetaminophen 650 mg 04/28/17 20:11 05/09/17 12:31 Tylenol 650mg/20.3ml Solution Ud PO 650 mg Q4 PRN Administration Temperature Ascorbic Acid 500 mg 05/12/17 11:15 05/19/17 11:11 Vitamin C 500 Mg Tab PO 500 mg DAILY AGUSTIN Administration Bisacodyl 10 mg 05/07/17 13:35 05/08/17 06:02 Dulcolax WY 10 mg Q24H PRN Administration Constipation Bisacodyl 5 mg 05/20/17 10:00 Dulcolax PO DAILY AGUSTIN Ergocalciferol 1 cap 05/12/17 11:15 05/19/17 11:10 Drisdol 50,000 Intl Units Cap PO 1 cap QWK AGUSTIN Administration Levetiracetam 500 mg/ Sodium 105 mls @ 420 mls/hr 05/03/17 22:00 05/19/17 11: 11 Chloride IVPB 420 mls/hr Q12H AGUSTIN Administration Metoclopramide HCl 10 mg 05/12/17 11:00 05/19/17 11:11 Reglan IVP 10 mg DAILY AGUSTIN Administration Metoprolol Tartrate 100 mg 05/13/17 11:24 05/19/17 17:06 Lopressor PO Not Given BID AGUSTIN Metoprolol Tartrate 5 mg 05/13/17 14:00 05/19/17 05:44 Lopressor IVP 5 mg Q2 PRN Administration Multivitamins 1 tab 05/17/17 10:00 05/19/17 11:10 Hexavitamin PO 1 tab DAILY AGUSTIN Administration Quetiapine Fumarate 200 mg 05/18/17 11:45 05/19/17 18:15 Seroquel PO Not Given BID AGUSTIN - Patient Studies Lab Studies: Microbiology Studies 04/18/17 07:27 Blood Fungal Culture - Final Other: Please Indicate Lab Studies 05/19/17 05/19/17 05/19/17 Range/Units 18:01 11:52 06:30 Sodium 138 (132-148) mmol/L Potassium 3.7 (3.6-5.2) mmol/L Chloride 100 (98-107) mmol/L Carbon Dioxide 30 (22-30) mmol/L Anion Gap 13 (10-20) BUN 6 L (7-17) mg/dL Creatinine 0.5 L (0.7-1.2) mg/dL Est GFR ( Amer) > 60 Est GFR (Non-Af Amer) > 60 POC Glucose (mg/dL) 100 90 (65-110) mg/dL Random Glucose 92 (65-105) mg/dL Calcium 8.9 (8.6-10.4) mg/dl Magnesium 1.6 (1.6-2.3) mg/dL 05/18/17 Range/Units 23:49 Sodium (132-148) mmol/L Potassium (3.6-5.2) mmol/L Chloride (98-107) mmol/L Carbon Dioxide (22-30) mmol/L Anion Gap (10-20) BUN (7-17) mg/dL Creatinine (0.7-1.2) mg/dL Est GFR ( Amer) Est GFR (Non-Af Amer) POC Glucose (mg/dL) 87 (65-110) mg/dL Random Glucose (65-105) mg/dL Calcium (8.6-10.4) mg/dl Magnesium (1.6-2.3) mg/dL Laboratory Results - last 24 hr 05/18/17 05/19/17 05/19/17 23:49 06:30 11:52 Sodium 138 Potassium 3.7 Chloride 100 Carbon Dioxide 30 Anion Gap 13 BUN 6 L Creatinine 0.5 L Est GFR ( Amer) > 60 Est GFR (Non-Af Amer) > 60 POC Glucose (mg/dL) 87 90 Random Glucose 92 Calcium 8.9 Magnesium 1.6 05/19/17 18:01 Sodium Potassium Chloride Carbon Dioxide Anion Gap BUN Creatinine Est GFR ( Amer) Est GFR (Non-Af Amer) POC Glucose (mg/dL) 100 Random Glucose Calcium Magnesium EKG/Cardiology Studies: Cardiology / EKG Studies 05/19/17 14:18 EKG [ELECTROCARDIOGRAM] Routine Comment: Mode Of Transportation: Reason For Exam: long QT Attending/Attestation - Attestation I have personally seen and examined this patient.: Yes I have fully participated in the care of the patient.: Yes I have reviewed all pertinent clinical information: Yes Notes (Text): 05/19/17 20:53 Today: May The Patient was seen and examined at the bedside, Medical records reviewed, and management issues were discussed and formulated with the house staff. I have reviewed all the relevant clinical, laboratory, hemodynamic, radiographic data and medications Events reviewed Pain issues, skin care, head of the bed elevation, glycemic control were addressed. Agree with above resident's assessment and treatment plans of care as transcribed in Dr. Chopra note.
[2017-05-20] MEDS: Metoprolol 1 mg/ml Inj IVP PRN ×2 (03:31→09:00)
[2017-05-20 06:33] LABS: BASO # 0.1 K/uL (0.0-0.2); BASO % 0.8 % (0.0-2.0); EOS # 0.4 K/uL (0.0-0.7); EOS % 2.9 % (0.0-4.0); HEMOGLOBIN 8.6 g/dL (11.0-16.0); LYMPH # 3.2 K/uL (1.0-4.3); LYMPH % 23.7 % (20.0-40.0); MEAN CELL VOLUME 85.4 fL (81.0-99.0); MEAN CORPUSCULAR HEMOGLOBIN 28.3 pg (27.0-31.0); MEAN CORPUSCULAR HGB CONC 33.2 g/dL (33.0-37.0); MEAN PLATELET VOLUME 8.4 fL (7.2-11.7); MONO % 7.4 % (0.0-10.0); NEUT # 8.8 K/uL (1.8-7.0); NEUT % 65.2 % (50.0-75.0); RBC 3.03 Mil/uL (3.80-5.20); RED CELL DISTRIBUTION WIDTH 15.8 % (11.5-14.5); WHITE BLOOD COUNT 13.6 K/uL (4.8-10.8)
[2017-05-20 06:56] LABS: ALB/GLOB RATIO 0.9 (1.0-2.1); ALBUMIN 3.2 g/dL (3.5-5.0); ALT/SGPT 34 U/L (9-52); AST/SGOT 24 U/L (14-36); BLOOD UREA NITROGEN 7 mg/dL (7-17); GFR AFRICAN-AMERICAN > 60; GFR NON-AFRICAN AMERICAN > 60
--- NOTE | 2017-05-20 08:03 | CP.PCM.PN ---
Subjective - Date & Time of Evaluation Date of Evaluation: 05/20/17 Time of Evaluation: 07:20 - Subjective Subjective: General surgery progress note for Dr. Bishnu Rothman, PGY-1 Pt S & E at bedside. Pt awake, resting comfortably in bed. No acute events overnight. Trach collar in place. NGT in place. Tube feeds via J tube @40. Objective - Vital Signs/Intake and Output Vital Signs (last 24 hours): Temp Pulse Resp BP Pulse Ox 97.7 F 118 H 16 110/75 100 05/20/17 04:00 05/20/17 06:00 05/20/17 06:00 05/20/17 05:58 05/20/17 06:00 Intake and Output: 05/20/17 05/20/17 06:59 18:59 Intake Total 335 Output Total 796 Balance -461 - Medications Medications: Current Medications Acetaminophen (Tylenol 650mg/20.3ml Solution Ud) 650 mg PO Q4 PRN PRN Reason: Temperature Last Admin: 05/09/17 12:31 Dose: 650 mg Ascorbic Acid (Vitamin C 500 Mg Tab) 500 mg PO DAILY [facility] Last Admin: 05/19/17 11:11 Dose: 500 mg Bisacodyl (Dulcolax) 10 mg [place] Q24H PRN PRN Reason: Constipation Last Admin: 05/08/17 06:02 Dose: 10 mg Bisacodyl (Dulcolax) 5 mg PO DAILY [facility] Ergocalciferol (Drisdol 50,000 Intl Units Cap) 1 cap PO QWK [facility] Last Admin: 05/19/17 11:10 Dose: 1 cap Levetiracetam 500 mg/ Sodium (Chloride) 105 mls @ 420 mls/hr IVPB Q12H [facility] Last Admin: 05/19/17 21:00 Dose: 420 mls/hr Metoclopramide HCl (Reglan) 10 mg IVP DAILY [facility] Last Admin: 05/19/17 11:11 Dose: 10 mg Metoprolol Tartrate (Lopressor) 100 mg PO BID [facility] Last Admin: 05/19/17 17:06 Dose: Not Given Metoprolol Tartrate (Lopressor) 5 mg IVP Q2 PRN Last Admin: 05/20/17 03:31 Dose: 5 mg Multivitamins (Hexavitamin) 1 tab PO DAILY [facility] Last Admin: 05/19/17 11:10 Dose: 1 tab Quetiapine Fumarate (Seroquel) 200 mg PO BID [facility] Last Admin: 05/19/17 18:15 Dose: Not Given - Labs Labs: 05/20/17 06:29 05/20/17 06:29 PT 14.0 SECONDS (9.7-12.2) H 04/25/17 06:25 INR 1.2 04/25/17 06:25 APTT 32 SECONDS (21-34) 04/25/17 06:25 - Constitutional Appears: Non-toxic, No Acute Distress - Head Exam Head Exam: ATRAUMATIC, NORMAL INSPECTION, NORMOCEPHALIC - Eye Exam Eye Exam: EOMI, Normal appearance - ENT Exam ENT Exam: Mucous Membranes Moist Additional comments: NGT in place - Neck Exam Neck Exam: Normal Inspection - Respiratory Exam Respiratory Exam: NORMAL BREATHING PATTERN - Cardiovascular Exam Cardiovascular Exam: Tachycardia, +S1, +S2 - GI/Abdominal Exam GI & Abdominal Exam: Soft. absent: Firm, Guarding, Tenderness Additional comments: Ostomy with J tube in place- no output to ostomy bag - Neurological Exam Neurological Exam: Alert, Awake Additional comments: non verbal - Psychiatric Exam Additional comments: non verbal - Skin Skin Exam: Dry, Intact, Normal Color, Warm Additional comments: well healed midline abdominal incision Assessment and Plan - Assessment and Plan (Free Text) Assessment: 36F POD#32 s/p gastrojejunostomy w/ bypass and feeding jejunostomy Plan: Cont tube feeds via J tube Plan for endoscopic evaluation to R/O stricture on Tuesday- 05/23 as per GI Surgical diagram left in pt chart for reference Cont anti-emetic PRN Further mgmt as per ICU/primary teams DW attending Lorna, PGY-1
[2017-05-20] MEDS ORDERED: Magnesium Sulfate 1 gm in D5W 1 GM/100 ML BAG IVPB ONE (08:18)
[2017-05-20] MEDS ORDERED: Bisacodyl 5mg EC Tab PO SCH (10:00)
[2017-05-20] MEDS ORDERED: Metoprolol Succinate 50 mg XL Tab PO SCH (11:15)
[2017-05-20] MEDS: Multiple Vitamins Tab PO SCH (11:35)
[2017-05-20] MEDS: levETIRAcetam 500 MG in Sodium Chloride 0.9% 100 ML IVPB SCH (11:37)
[2017-05-20] MEDS: levETIRAcetam 100 mg/ml (5ml) Oral Syringe PO SCH ×2 (11:45→18:52)
[2017-05-20] MEDS ORDERED: Sodium Chloride 0.9% 1,000 ML IV ONE (13:09)
--- NOTE | 2017-05-20 15:42 | CP.CCUPN ---
<Bipin Chopra - Last Filed: 05/20/17 15:40> CCU Subjective - Physician Review Subjective (Free Text): Patibrandi seen and examined at bedside OOB to chair still tachy 1 episode of hypotension responded to fluids tolerating feeds CCU Objective - Vital Signs / Intake & Output Intake and Output (Last 8hrs): Intake & Output 05/20/17 05/20/17 05/20/17 06:59 14:59 22:59 Intake Total 235 175 Output Total 564 200 Balance -329 -25 Intake: Tube Feeding 235 175 Output: Urine 464 200 Urine, Voided 464 200 Stool 100 - Physical Exam Head: Positive for: Atraumatic, Normocephalic. Negative for: Tenderness Pupils: Positive for: PERRL Extroacular Muscles: Positive for: EOMI Mouth: Positive for: Moist Mucous Membranes. Negative for: Dry, Drooling Nose (External): Positive for: Other (NGT in place) Nose (Internal): Positive for: Normal Inspection, Moist Neck: Positive for: Other (trach). Negative for: JVD, Lymphadenopathy Respiratory/Chest: Positive for: Clear to Auscultation. Negative for: Respiratory Distress, Accessory Muscle Use Cardiovascular: Positive for: Regular Rate and Rhythm, Normal S1, S2 Abdomen: Positive for: Tenderness (mild tenderness of palpation. patient continues to move her arms towards hands on palpation), Normal Bowel Sounds. Negative for: Distention, Peritoneal Signs, Guarding Upper Extremity: Positive for: Normal Inspection, Normal ROM, Capillary Refill < 2s. Negative for: Edema Lower Extremity: Positive for: Normal Inspection. Negative for: Edema Neurological: Positive for: CN II-XII Intact Skin: Positive for: Warm, Pale Psychiatric: Positive for: Alert - Medications Active Medications: Active Medications Generic Name Dose Route Start Last Admin Trade Name Freq PRN Reason Stop Dose Admin Acetaminophen 650 mg 04/28/17 20:11 05/09/17 12:31 Tylenol 650mg/20.3ml Solution Ud PO 650 mg Q4 PRN Administration Temperature Ascorbic Acid 500 mg 05/12/17 11:15 05/20/17 11:36 Vitamin C 500 Mg Tab PO 500 mg DAILY AGUSTIN Administration Bisacodyl 10 mg 05/07/17 13:35 05/08/17 06:02 Dulcolax MI 10 mg Q24H PRN Administration Constipation Ergocalciferol 1 cap 05/12/17 11:15 05/19/17 11:10 Drisdol 50,000 Intl Units Cap PO 1 cap QWK AGUSTIN Administration Levetiracetam 500 mg 05/20/17 11:15 05/20/17 11:45 Keppra PO 500 mg BID AGUSTIN Administration Metoclopramide HCl 10 mg 05/12/17 11:00 05/20/17 11:36 Reglan IVP 10 mg DAILY AGUSTIN Administration Metoprolol Succinate 50 mg 05/20/17 11:15 05/20/17 11:35 Toprol Xl PO 50 mg DAILY AGUSTIN Administration Metoprolol Tartrate 5 mg 05/13/17 14:00 05/20/17 09:00 Lopressor IVP 5 mg Q2 PRN Administration Metoprolol Tartrate 100 mg 05/20/17 22:00 Lopressor PO Q12 [facility] Multivitamins 1 tab 05/17/17 10:00 05/20/17 11:35 Hexavitamin PO 1 tab DAILY AGUSTIN Administration Pantoprazole Sodium 40 mg 05/20/17 11:00 05/20/17 11:36 Protonix Inj IVP 40 mg DAILY AGUSTIN Administration Quetiapine Fumarate 200 mg 05/18/17 11:45 05/20/17 11:36 Seroquel PO 200 mg BID AGUSTIN Administration - Patient Studies Lab Studies: Lab Studies 05/20/17 05/20/17 05/20/17 Range/Units 12:39 06:29 06:29 WBC 13.6 H (4.8-10.8) K/uL RBC 3.03 L (3.80-5.20) Mil/uL Hgb 8.6 L (11.0-16.0) g/dL Hct 25.9 L (34.0-47.0) % MCV 85.4 (81.0-99.0) fL MCH 28.3 (27.0-31.0) pg MCHC 33.2 (33.0-37.0) g/dL RDW 15.8 H (11.5-14.5) % Plt Count 255 (130-400) K/uL MPV 8.4 (7.2-11.7) fL Neut % (Auto) 65.2 (50.0-75.0) % Lymph % (Auto) 23.7 (20.0-40.0) % [place] % (Auto) 7.4 (0.0-10.0) % Eos % (Auto) 2.9 (0.0-4.0) % Baso % (Auto) 0.8 (0.0-2.0) % Neut # (Auto) 8.8 H (1.8-7.0) K/uL Lymph # (Auto) 3.2 (1.0-4.3) K/uL [place] # (Auto) 1.0 H (0.0-0.8) K/uL Eos # (Auto) 0.4 (0.0-0.7) K/uL Baso # (Auto) 0.1 (0.0-0.2) K/uL Sodium 136 (132-148) mmol/L Potassium 4.4 (3.6-5.2) mmol/L Chloride 98 (98-107) mmol/L Carbon Dioxide 30 (22-30) mmol/L Anion Gap 13 (10-20) BUN 7 (7-17) mg/dL Creatinine 0.5 L (0.7-1.2) mg/dL Est GFR ( Amer) > 60 Est GFR (Non-Af Amer) > 60 POC Glucose (mg/dL) 106 (65-110) mg/dL Random Glucose 88 (65-105) mg/dL Calcium 9.0 (8.6-10.4) mg/dl Phosphorus 4.5 (2.5-4.5) mg/dL Magnesium 1.6 (1.6-2.3) mg/dL Total Bilirubin 0.5 (0.2-1.3) mg/dL AST 24 (14-36) U/L ALT 34 (9-52) U/L Alkaline Phosphatase 147 H (38-126) U/L Total Protein 6.7 (6.3-8.3) g/dL Albumin 3.2 L (3.5-5.0) g/dL Globulin 3.6 (2.2-3.9) gm/dL Albumin/Globulin Ratio 0.9 L (1.0-2.1) Beta HCG, Quant < 2.39 mIU/ML 05/20/17 05/19/17 05/19/17 Range/Units 06:16 23:45 18:01 WBC (4.8-10.8) K/uL RBC (3.80-5.20) Mil/uL Hgb (11.0-16.0) g/dL Hct (34.0-47.0) % MCV (81.0-99.0) fL MCH (27.0-31.0) pg MCHC (33.0-37.0) g/dL RDW (11.5-14.5) % Plt Count (130-400) K/uL MPV (7.2-11.7) fL Neut % (Auto) (50.0-75.0) % Lymph % (Auto) (20.0-40.0) % [place] % (Auto) (0.0-10.0) % Eos % (Auto) (0.0-4.0) % Baso % (Auto) (0.0-2.0) % Neut # (Auto) (1.8-7.0) K/uL Lymph # (Auto) (1.0-4.3) K/uL [place] # (Auto) (0.0-0.8) K/uL Eos # (Auto) (0.0-0.7) K/uL Baso # (Auto) (0.0-0.2) K/uL Sodium (132-148) mmol/L Potassium (3.6-5.2) mmol/L Chloride (98-107) mmol/L Carbon Dioxide (22-30) mmol/L Anion Gap (10-20) BUN (7-17) mg/dL Creatinine (0.7-1.2) mg/dL Est GFR ( Amer) Est GFR (Non-Af Amer) POC Glucose (mg/dL) 85 85 100 (65-110) mg/dL Random Glucose (65-105) mg/dL Calcium (8.6-10.4) mg/dl Phosphorus (2.5-4.5) mg/dL Magnesium (1.6-2.3) mg/dL Total Bilirubin (0.2-1.3) mg/dL AST (14-36) U/L ALT (9-52) U/L Alkaline Phosphatase (38-126) U/L Total Protein (6.3-8.3) g/dL Albumin (3.5-5.0) g/dL Globulin (2.2-3.9) gm/dL Albumin/Globulin Ratio (1.0-2.1) Beta HCG, Quant mIU/ML Laboratory Results - last 24 hr 05/19/17 05/19/17 05/20/17 18:01 23:45 06:16 WBC RBC Hgb Hct MCV MCH MCHC RDW Plt Count MPV Neut % (Auto) Lymph % (Auto) [place] % (Auto) Eos % (Auto) Baso % (Auto) Neut # (Auto) Lymph # (Auto) [place] # (Auto) Eos # (Auto) Baso # (Auto) Sodium Potassium Chloride Carbon Dioxide Anion Gap BUN Creatinine Est GFR ( Amer) Est GFR (Non-Af Amer) POC Glucose (mg/dL) 100 85 85 Random Glucose Calcium Phosphorus Magnesium Total Bilirubin AST ALT Alkaline Phosphatase Total Protein Albumin Globulin Albumin/Globulin Ratio Beta HCG, Quant 05/20/17 05/20/17 05/20/17 06:29 06:29 12:39 WBC 13.6 H RBC 3.03 L Hgb 8.6 L Hct 25.9 L MCV 85.4 MCH 28.3 MCHC 33.2 RDW 15.8 H Plt Count 255 MPV 8.4 Neut % (Auto) 65.2 Lymph % (Auto) 23.7 [place] % (Auto) 7.4 Eos % (Auto) 2.9 Baso % (Auto) 0.8 Neut # (Auto) 8.8 H Lymph # (Auto) 3.2 [place] # (Auto) 1.0 H Eos # (Auto) 0.4 Baso # (Auto) 0.1 Sodium 136 Potassium 4.4 Chloride 98 Carbon Dioxide 30 Anion Gap 13 BUN 7 Creatinine 0.5 L Est GFR ( Amer) > 60 Est GFR (Non-Af Amer) > 60 POC Glucose (mg/dL) 106 Random Glucose 88 Calcium 9.0 Phosphorus 4.5 Magnesium 1.6 Total Bilirubin 0.5 AST 24 ALT 34 Alkaline Phosphatase 147 H Total Protein 6.7 Albumin 3.2 L Globulin 3.6 Albumin/Globulin Ratio 0.9 L Beta HCG, Quant < 2.39 Fingerstick Blood Sugar Results: 85 Assessment/Plan - Assessment and Plan (Free Text) Plan: Psych: Schizophrenia - Seroquel 200mg PO BID - measure QTc and call if >500 Neuro: Seizure disorder - Keppra 500mg @ 420ml/hr IVPD q12h - Metoclopramide 10mg IVP qd Cards: Tachycardia (persistent), HTN - metoprolol 50mg PO qd x1 - metoprolol 100mg PO q12 - 5mg IV q2h PRN given this AM Pulm: PRVC ventilator - CXR taken this AM showed trach tube, R central venous catheter, NGT, and L PICC all in place and stable; positive for subtle patchy opacities @ medial R lower lobe - CPAP 5ps 10FiO2 40%, vent settings back to PRVC 116 tv 450 FiO2 40% p+5 (per nurse note) - O2 via Trach Collar; add T for inline suction for trach GI: Biliary emesis, constipation - Dulcolax 10mg MI qd PRN - resume tube feeds @ 25cc/hr - Endoscopy 05/23 to assess patency of jejunostomy PPx: - Drisdol 50,000 IU 1cap PO qwk - VitC 500mg tab PO qd - Multivitamin: 5ml PO qd - Heparin 5000 U SC q8 - Protonix 20mg IVP BID - KCl 10mEq/100 ml @ 100ml/hr IVPB q1h - MgSO4 1g/100ml D5W @ 200 ml/hr - Dextrose 5%/0.9% NS 100ml @ 50 ml/hr IV q20h - c/s surgery to remove perma-cath <Najma Granger M - Last Filed: 05/20/17 19:38> CCU Objective - Vital Signs / Intake & Output Vital Signs (Last 4 hours): Vital Signs Temp Pulse Resp BP Pulse Ox 05/20/17 16:00 98.0 F 121 H 14 100 05/20/17 15:58 123 H 14 114/79 100 Intake and Output (Last 8hrs): Intake & Output 05/20/17 05/20/17 05/20/17 06:59 14:59 22:59 Intake Total 235 355 90 Output Total 564 200 Balance -329 155 90 Intake: Tube Feeding 235 355 90 Output: Urine 464 200 Urine, Voided 464 200 Stool 100 - Medications Active Medications: Active Medications Generic Name Dose Route Start Last Admin Trade Name Freq PRN Reason Stop Dose Admin Acetaminophen 650 mg 04/28/17 20:11 05/09/17 12:31 Tylenol 650mg/20.3ml Solution Ud PO 650 mg Q4 PRN Administration Temperature Ascorbic Acid 500 mg 05/12/17 11:15 05/20/17 11:36 Vitamin C 500 Mg Tab PO 500 mg DAILY AGUSTIN Administration Bisacodyl 10 mg 05/07/17 13:35 05/08/17 06:02 Dulcolax MI 10 mg Q24H PRN Administration Constipation Ergocalciferol 1 cap 05/12/17 11:15 05/19/17 11:10 Drisdol 50,000 Intl Units Cap PO 1 cap QWK AGUSTIN Administration Levetiracetam 500 mg 05/20/17 11:15 05/20/17 18:52 Keppra PO 500 mg BID AGUSTIN Administration Metoclopramide HCl 10 mg 05/12/17 11:00 05/20/17 11:36 Reglan IVP 10 mg DAILY AGUSTIN Administration Metoprolol Tartrate 5 mg 05/13/17 14:00 05/20/17 09:00 Lopressor IVP 5 mg Q2 PRN Administration Metoprolol Tartrate 75 mg 05/20/17 22:00 Lopressor PO Q12 [facility] Multivitamins 1 tab 05/17/17 10:00 05/20/17 11:35 Hexavitamin PO 1 tab DAILY AGUSTIN Administration Pantoprazole Sodium 40 mg 05/20/17 11:00 05/20/17 11:36 Protonix Inj IVP 40 mg DAILY AGUSTIN Administration Quetiapine Fumarate 200 mg 05/18/17 11:45 05/20/17 18:52 Seroquel PO 200 mg BID AGUSTIN Administration - Patient Studies Lab Studies: Lab Studies 05/20/17 05/20/17 05/20/17 Range/Units 18:07 12:39 06:29 WBC (4.8-10.8) K/uL RBC (3.80-5.20) Mil/uL Hgb (11.0-16.0) g/dL Hct (34.0-47.0) % MCV (81.0-99.0) fL MCH (27.0-31.0) pg MCHC (33.0-37.0) g/dL RDW (11.5-14.5) % Plt Count (130-400) K/uL MPV (7.2-11.7) fL Neut % (Auto) (50.0-75.0) % Lymph % (Auto) (20.0-40.0) % [place] % (Auto) (0.0-10.0) % Eos % (Auto) (0.0-4.0) % Baso % (Auto) (0.0-2.0) % Neut # (Auto) (1.8-7.0) K/uL Lymph # (Auto) (1.0-4.3) K/uL [place] # (Auto) (0.0-0.8) K/uL Eos # (Auto) (0.0-0.7) K/uL Baso # (Auto) (0.0-0.2) K/uL Sodium 136 (132-148) mmol/L Potassium 4.4 (3.6-5.2) mmol/L Chloride 98 (98-107) mmol/L Carbon Dioxide 30 (22-30) mmol/L Anion Gap 13 (10-20) BUN 7 (7-17) mg/dL Creatinine 0.5 L (0.7-1.2) mg/dL Est GFR ( Amer) > 60 Est GFR (Non-Af Amer) > 60 POC Glucose (mg/dL) 80 106 (65-110) mg/dL Random Glucose 88 (65-105) mg/dL Calcium 9.0 (8.6-10.4) mg/dl Phosphorus 4.5 (2.5-4.5) mg/dL Magnesium 1.6 (1.6-2.3) mg/dL Total Bilirubin 0.5 (0.2-1.3) mg/dL AST 24 (14-36) U/L ALT 34 (9-52) U/L Alkaline Phosphatase 147 H (38-126) U/L Total Protein 6.7 (6.3-8.3) g/dL Albumin 3.2 L (3.5-5.0) g/dL Globulin 3.6 (2.2-3.9) gm/dL Albumin/Globulin Ratio 0.9 L (1.0-2.1) Beta HCG, Quant < 2.39 mIU/ML 05/20/17 05/20/17 05/19/17 Range/Units 06:29 06:16 23:45 WBC 13.6 H (4.8-10.8) K/uL RBC 3.03 L (3.80-5.20) Mil/uL Hgb 8.6 L (11.0-16.0) g/dL Hct 25.9 L (34.0-47.0) % MCV 85.4 (81.0-99.0) fL MCH 28.3 (27.0-31.0) pg MCHC 33.2 (33.0-37.0) g/dL RDW 15.8 H (11.5-14.5) % Plt Count 255 (130-400) K/uL MPV 8.4 (7.2-11.7) fL Neut % (Auto) 65.2 (50.0-75.0) % Lymph % (Auto) 23.7 (20.0-40.0) % [place] % (Auto) 7.4 (0.0-10.0) % Eos % (Auto) 2.9 (0.0-4.0) % Baso % (Auto) 0.8 (0.0-2.0) % Neut # (Auto) 8.8 H (1.8-7.0) K/uL Lymph # (Auto) 3.2 (1.0-4.3) K/uL [place] # (Auto) 1.0 H (0.0-0.8) K/uL Eos # (Auto) 0.4 (0.0-0.7) K/uL Baso # (Auto) 0.1 (0.0-0.2) K/uL Sodium (132-148) mmol/L Potassium (3.6-5.2) mmol/L Chloride (98-107) mmol/L Carbon Dioxide (22-30) mmol/L Anion Gap (10-20) BUN (7-17) mg/dL Creatinine (0.7-1.2) mg/dL Est GFR ( Amer) Est GFR (Non-Af Amer) POC Glucose (mg/dL) 85 85 (65-110) mg/dL Random Glucose (65-105) mg/dL Calcium (8.6-10.4) mg/dl Phosphorus (2.5-4.5) mg/dL Magnesium (1.6-2.3) mg/dL Total Bilirubin (0.2-1.3) mg/dL AST (14-36) U/L ALT (9-52) U/L Alkaline Phosphatase (38-126) U/L Total Protein (6.3-8.3) g/dL Albumin (3.5-5.0) g/dL Globulin (2.2-3.9) gm/dL Albumin/Globulin Ratio (1.0-2.1) Beta HCG, Quant mIU/ML Laboratory Results - last 24 hr 05/19/17 05/20/17 05/20/17 23:45 06:16 06:29 WBC 13.6 H RBC 3.03 L Hgb 8.6 L Hct 25.9 L MCV 85.4 MCH 28.3 MCHC 33.2 RDW 15.8 H Plt Count 255 MPV 8.4 Neut % (Auto) 65.2 Lymph % (Auto) 23.7 [place] % (Auto) 7.4 Eos % (Auto) 2.9 Baso % (Auto) 0.8 Neut # (Auto) 8.8 H Lymph # (Auto) 3.2 [place] # (Auto) 1.0 H Eos # (Auto) 0.4 Baso # (Auto) 0.1 Sodium Potassium Chloride Carbon Dioxide Anion Gap BUN Creatinine Est GFR ( Amer) Est GFR (Non-Af Amer) POC Glucose (mg/dL) 85 85 Random Glucose Calcium Phosphorus Magnesium Total Bilirubin AST ALT Alkaline Phosphatase Total Protein Albumin Globulin Albumin/Globulin Ratio Beta HCG, Quant 05/20/17 05/20/17 05/20/17 06:29 12:39 18:07 WBC RBC Hgb Hct MCV MCH MCHC RDW Plt Count MPV Neut % (Auto) Lymph % (Auto) [place] % (Auto) Eos % (Auto) Baso % (Auto) Neut # (Auto) Lymph # (Auto) [place] # (Auto) Eos # (Auto) Baso # (Auto) Sodium 136 Potassium 4.4 Chloride 98 Carbon Dioxide 30 Anion Gap 13 BUN 7 Creatinine 0.5 L Est GFR ( Amer) > 60 Est GFR (Non-Af Amer) > 60 POC Glucose (mg/dL) 106 80 Random Glucose 88 Calcium 9.0 Phosphorus 4.5 Magnesium 1.6 Total Bilirubin 0.5 AST 24 ALT 34 Alkaline Phosphatase 147 H Total Protein 6.7 Albumin 3.2 L Globulin 3.6 Albumin/Globulin Ratio 0.9 L Beta HCG, Quant < 2.39 Assessment/Plan - Assessment and Plan (Free Text) Plan: Patient seen and examined at bedside. Patient tolerating oral lopressor, will decrease dose to 75 mg q12hrs. -tolerating tube feeds -hypotension episodic (2nd lopressor + seroquel dosing together), responding to IV NS -CXR pending -patient will benefit from good pulmonary toilet -obtani sputum culture from trach -No clinical change in patient's condition - Date & Time Date: 05/20/17 Time: 19:38
[2017-05-21] MEDS: Metoprolol 1 mg/ml Inj IVP PRN (04:00)
[2017-05-21 06:46] LABS: BASO % 0.3 % (0.0-2.0); EOS # 0.3 K/uL (0.0-0.7); EOS % 2.6 % (0.0-4.0); HEMOGLOBIN 8.2 g/dL (11.0-16.0); LYMPH # 3.1 K/uL (1.0-4.3); LYMPH % 23.3 % (20.0-40.0); MEAN CELL VOLUME 85.8 fL (81.0-99.0); MEAN CORPUSCULAR HEMOGLOBIN 28.4 pg (27.0-31.0); MEAN PLATELET VOLUME 8.7 fL (7.2-11.7); MONO # 0.9 K/uL (0.0-0.8); MONO % 7.1 % (0.0-10.0); NEUT # 8.8 K/uL (1.8-7.0); NEUT % 66.7 % (50.0-75.0); RBC 2.88 Mil/uL (3.80-5.20); RED CELL DISTRIBUTION WIDTH 15.7 % (11.5-14.5); WHITE BLOOD COUNT 13.2 K/uL (4.8-10.8)
[2017-05-21 07:04] LABS: ALB/GLOB RATIO 0.9 (1.0-2.1); ALBUMIN 3.1 g/dL (3.5-5.0); ALT/SGPT 32 U/L (9-52); AST/SGOT 24 U/L (14-36); BLOOD UREA NITROGEN 6 mg/dL (7-17); GFR AFRICAN-AMERICAN > 60; GFR NON-AFRICAN AMERICAN > 60
--- NOTE | 2017-05-21 08:40 | CP.PCM.PN ---
Subjective - Date & Time of Evaluation Date of Evaluation: 05/21/17 Time of Evaluation: 08:20 - Subjective Subjective: Medicine progress note for Dr. Reyes Patient seen and examined. Unable to obtain ROS since patient is trached and is non-verbal at baseline. Patient intermittently not tolerating feeding at times. Objective - Vital Signs/Intake and Output Vital Signs (last 24 hours): Temp Pulse Resp BP Pulse Ox 98.3 F 118 H 21 113/75 100 05/21/17 04:00 05/21/17 05:39 05/21/17 05:39 05/21/17 05:39 05/21/17 05:00 Intake and Output: 05/21/17 05/21/17 06:59 18:59 Intake Total 135 Output Total 600 Balance -465 - Medications Medications: Current Medications Acetaminophen (Tylenol 650mg/20.3ml Solution Ud) 650 mg PO Q4 PRN PRN Reason: Temperature Last Admin: 05/09/17 12:31 Dose: 650 mg Ascorbic Acid (Vitamin C 500 Mg Tab) 500 mg PO DAILY [facility] Last Admin: 05/20/17 11:36 Dose: 500 mg Ergocalciferol (Drisdol 50,000 Intl Units Cap) 1 cap PO QWK [facility] Last Admin: 05/19/17 11:10 Dose: 1 cap Heparin Sodium (Porcine) (Heparin) 5,000 units SC Q12H [facility] Last Admin: 05/20/17 20:33 Dose: 5,000 units Levetiracetam (Keppra) 500 mg PO BID [facility] Last Admin: 05/20/17 18:52 Dose: 500 mg Metoclopramide HCl (Reglan) 10 mg IVP DAILY [facility] Last Admin: 05/20/17 11:36 Dose: 10 mg Metoprolol Tartrate (Lopressor) 75 mg PO Q12 [facility] Last Admin: 05/20/17 21:33 Dose: 75 mg Metoprolol Tartrate (Lopressor) 5 mg IVP Q4H PRN PRN Reason: Systolic Blood Pressure Last Admin: 05/21/17 04:00 Dose: 5 mg Multivitamins (Hexavitamin) 1 tab PO DAILY [facility] Last Admin: 05/20/17 11:35 Dose: 1 tab Pantoprazole Sodium (Protonix Inj) 40 mg IVP DAILY [facility] Last Admin: 05/20/17 11:36 Dose: 40 mg Quetiapine Fumarate (Seroquel) 200 mg PO BID [facility] Last Admin: 05/20/17 18:52 Dose: 200 mg - Labs Labs: 05/21/17 06:31 05/21/17 06:31 PT 14.0 SECONDS (9.7-12.2) H 04/25/17 06:25 INR 1.2 04/25/17 06:25 APTT 32 SECONDS (21-34) 04/25/17 06:25 - Constitutional Appears: No Acute Distress, Chronically Ill - Head Exam Head Exam: ATRAUMATIC, NORMOCEPHALIC - Eye Exam Eye Exam: EOMI, Normal appearance - ENT Exam ENT Exam: Mucous Membranes Moist Additional comments: NGT in place - Respiratory Exam Additional comments: Coarse breath sounds - Cardiovascular Exam Cardiovascular Exam: Tachycardia, +S1, +S2 - GI/Abdominal Exam GI & Abdominal Exam: Soft. absent: Tenderness Additional comments: Ostomy with J tube in place - Extremities Exam Extremities Exam: absent: Pedal Edema, Tenderness - Neurological Exam Neurological Exam: Altered (non-verbal at baseline) - Skin Skin Exam: Dry, Warm Additional comments: abdominal surgical scar Assessment and Plan - Assessment and Plan (Free Text) Plan: Sepsis Pt off pressors Dr. 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 Possible fatty infiltration vs parenchymal disease. Sludge. Left pleural effusion. Small ascites. Vomiting Reglan 10 mg IV daily Continue to monitor Acute Kidney injury Resolved Dr. Saenz, Nephrology system consultant Bacteruria ID: Urine Cx (05/02/17) Gram + cocci in the urine Zyvox discontinued Fluconazole 200mg IV Prophylaxis: Protonix 40mg IV daily Heparin 5000 u Q12H SC VitC 500mg PO daily Multivitamin daily Drisdol 50,000iu 1cap PO qweek Will discuss case with Dr. Reyes Management and orders per ICU and Dr. Reyes
[2017-05-21] MEDS: levETIRAcetam 100 mg/ml (5ml) Oral Syringe PO SCH ×2 (09:55→18:04)
[2017-05-21] MEDS: Multiple Vitamins Tab PO SCH (09:56)
[2017-05-21] MEDS: Dextrose 5%/0.45% NS 1,000 ML IV SCH (18:01)
--- NOTE | 2017-05-21 18:04 | CP.PCM.PN ---
Subjective - Date & Time of Evaluation Date of Evaluation: 05/21/17 Time of Evaluation: 17:45 - Subjective Subjective: General Surgery Pt S&E, Tolerating TF at 20cc/hr. Pt Non-verbal. Objective - Vital Signs/Intake and Output Vital Signs (last 24 hours): Temp Pulse Resp BP Pulse Ox 99.4 F 115 H 26 H 95/57 L 100 05/21/17 12:00 05/21/17 13:00 05/21/17 13:00 05/21/17 12:58 05/21/17 13:00 Intake and Output: 05/21/17 05/21/17 06:59 18:59 Intake Total 135 120 Output Total 600 Balance -465 120 - Medications Medications: Current Medications Acetaminophen (Tylenol 650mg/20.3ml Solution Ud) 650 mg PO Q4 PRN PRN Reason: Temperature Last Admin: 05/09/17 12:31 Dose: 650 mg Ascorbic Acid (Vitamin C 500 Mg Tab) 500 mg PO DAILY [facility] Last Admin: 05/21/17 09:56 Dose: 500 mg Ergocalciferol (Drisdol 50,000 Intl Units Cap) 1 cap PO QWK [facility] Last Admin: 05/19/17 11:10 Dose: 1 cap Heparin Sodium (Porcine) (Heparin) 5,000 units SC Q12H [facility] Last Admin: 05/21/17 08:30 Dose: 5,000 units Dextrose/Sodium Chloride (Dextrose 5%/0.45% Ns 1000 Ml) 1,000 mls @ 45 mls/hr IV .[id number] [facility] Levetiracetam (Keppra) 500 mg PO BID [facility] Last Admin: 05/21/17 09:55 Dose: 500 mg Metoclopramide HCl (Reglan) 10 mg IVP DAILY [facility] Last Admin: 05/21/17 09:56 Dose: 10 mg Metoprolol Tartrate (Lopressor) 75 mg PO Q12 [facility] Last Admin: 05/21/17 09:55 Dose: 75 mg Metoprolol Tartrate (Lopressor) 5 mg IVP Q4H PRN PRN Reason: Systolic Blood Pressure Last Admin: 05/21/17 04:00 Dose: 5 mg Multivitamins (Hexavitamin) 1 tab PO DAILY [facility] Last Admin: 05/21/17 09:56 Dose: 1 tab Pantoprazole Sodium (Protonix Inj) 40 mg IVP DAILY [facility] Last Admin: 05/21/17 09:56 Dose: 40 mg Quetiapine Fumarate (Seroquel) 200 mg PO BID [facility] Last Admin: 05/21/17 09:56 Dose: 200 mg - Labs Labs: 05/21/17 06:31 05/21/17 06:31 PT 14.0 SECONDS (9.7-12.2) H 04/25/17 06:25 INR 1.2 04/25/17 06:25 APTT 32 SECONDS (21-34) 04/25/17 06:25 - Constitutional Appears: Non-toxic, No Acute Distress - Head Exam Head Exam: ATRAUMATIC, NORMOCEPHALIC - Eye Exam Eye Exam: EOMI. absent: Scleral icterus - Respiratory Exam Respiratory Exam: NORMAL BREATHING PATTERN. absent: Respiratory Distress Additional comments: trach in place - GI/Abdominal Exam GI & Abdominal Exam: Soft. absent: Distended, Firm, Guarding, Rigid, Tenderness Additional comments: ostomy functioning well incision C/D/I - Extremities Exam Extremities Exam: absent: Calf Tenderness, Pedal Edema - Neurological Exam Neurological Exam: Awake - Skin Skin Exam: Dry, Warm Assessment and Plan - Assessment and Plan (Free Text) Assessment: 36F POD#33 s/p gastrojejunostomy w/ bypass and feeding jejunostomy Plan: Cont tube feeds via J tube Possible endoscopic evaluation to R/O stricture, reposition J-tube, F/U with GI Surgical diagram left in pt chart for reference Cont anti-emetic PRN Further mgmt as per ICU/primary teams
[2017-05-22] MEDS: Metoprolol 1 mg/ml Inj IVP PRN (05:34)
[2017-05-22 06:34] LABS: BASO # 0.1 K/uL (0.0-0.2); BASO % 0.6 % (0.0-2.0); EOS # 0.3 K/uL (0.0-0.7); EOS % 2.1 % (0.0-4.0); HEMOGLOBIN 8.3 g/dL (11.0-16.0); LYMPH # 2.5 K/uL (1.0-4.3); LYMPH % 16.2 % (20.0-40.0); MEAN CELL VOLUME 85.2 fL (81.0-99.0); MEAN CORPUSCULAR HEMOGLOBIN 28.2 pg (27.0-31.0); MEAN CORPUSCULAR HGB CONC 33.1 g/dL (33.0-37.0); MEAN PLATELET VOLUME 9.2 fL (7.2-11.7); MONO # 1.2 K/uL (0.0-0.8); MONO % 7.7 % (0.0-10.0); NEUT # 11.3 K/uL (1.8-7.0); NEUT % 73.4 % (50.0-75.0); RBC 2.93 Mil/uL (3.80-5.20); RED CELL DISTRIBUTION WIDTH 15.2 % (11.5-14.5); WHITE BLOOD COUNT 15.4 K/uL (4.8-10.8)
[2017-05-22 06:51] LABS: ALB/GLOB RATIO 0.9 (1.0-2.1); ALBUMIN 3.2 g/dL (3.5-5.0); ALT/SGPT 29 U/L (9-52); AST/SGOT 31 U/L (14-36); BLOOD UREA NITROGEN 6 mg/dL (7-17); CALCIUM 8.6 mg/dl (8.6-10.4); GFR AFRICAN-AMERICAN > 60; GFR NON-AFRICAN AMERICAN > 60
--- NOTE | 2017-05-22 07:49 | CP.PCM.PN ---
Subjective - Date & Time of Evaluation Date of Evaluation: 05/22/17 Time of Evaluation: 07:49 - Subjective Subjective: General Surgery Progress Note for Dr. Andrea Guthrie seen and examined at bedside. No acute event overnight. She is tolerating feeds at 30cc/hr with only 30 cc of residuals. Patient has thick secretions. She is Non-verbal. ROS unobtainable Objective - Vital Signs/Intake and Output Vital Signs (last 24 hours): Temp Pulse Resp BP Pulse Ox 98.6 F 124 H 26 H 107/74 100 05/22/17 04:00 05/22/17 06:00 05/22/17 06:00 05/22/17 05:58 05/22/17 06:00 Intake and Output: 05/22/17 05/22/17 06:59 18:59 Intake Total 865 Output Total 930 Balance -65 - Medications Medications: Current Medications Acetaminophen (Tylenol 650mg/20.3ml Solution Ud) 650 mg PO Q4 PRN PRN Reason: Temperature Last Admin: 05/09/17 12:31 Dose: 650 mg Ascorbic Acid (Vitamin C 500 Mg Tab) 500 mg PO DAILY [facility] Last Admin: 05/21/17 09:56 Dose: 500 mg Ergocalciferol (Drisdol 50,000 Intl Units Cap) 1 cap PO QWK [facility] Last Admin: 05/19/17 11:10 Dose: 1 cap Heparin Sodium (Porcine) (Heparin) 5,000 units SC Q12H [facility] Last Admin: 05/21/17 20:10 Dose: 5,000 units Dextrose/Sodium Chloride (Dextrose 5%/0.45% Ns 1000 Ml) 1,000 mls @ 45 mls/hr IV .[id number] [facility] Last Admin: 05/21/17 18:01 Dose: 45 mls/hr Levetiracetam (Keppra) 500 mg PO BID [facility] Last Admin: 05/21/17 18:04 Dose: 500 mg Metoclopramide HCl (Reglan) 10 mg IVP DAILY [facility] Last Admin: 05/21/17 09:56 Dose: 10 mg Metoprolol Tartrate (Lopressor) 75 mg PO Q12 [facility] Last Admin: 05/21/17 21:05 Dose: 75 mg Metoprolol Tartrate (Lopressor) 5 mg IVP Q4H PRN PRN Reason: Systolic Blood Pressure Last Admin: 05/22/17 05:34 Dose: 5 mg Multivitamins (Hexavitamin) 1 tab PO DAILY [facility] Last Admin: 05/21/17 09:56 Dose: 1 tab Pantoprazole Sodium (Protonix Inj) 40 mg IVP DAILY [facility] Last Admin: 05/21/17 09:56 Dose: 40 mg Quetiapine Fumarate (Seroquel) 200 mg PO BID [facility] Last Admin: 05/21/17 18:04 Dose: 200 mg - Labs Labs: 05/22/17 06:23 05/22/17 06:23 PT 14.0 SECONDS (9.7-12.2) H 04/25/17 06:25 INR 1.2 04/25/17 06:25 APTT 32 SECONDS (21-34) 04/25/17 06:25 - Constitutional Appears: No Acute Distress - Head Exam Head Exam: ATRAUMATIC, NORMOCEPHALIC - Eye Exam Eye Exam: Normal appearance - ENT Exam ENT Exam: Mucous Membranes Moist - Neck Exam Additional comments: trachesostomy - Respiratory Exam Respiratory Exam: NORMAL BREATHING PATTERN - Cardiovascular Exam Cardiovascular Exam: Tachycardia - GI/Abdominal Exam GI & Abdominal Exam: Soft. absent: Tenderness Additional comments: jejunostomy pink and patent with j tube in place incision clean dry intact - Neurological Exam Neurological Exam: Alert, Awake - Psychiatric Exam Psychiatric exam: Flat Affect - Skin Skin Exam: Dry, Intact, Normal Color, Warm Assessment and Plan - Assessment and Plan (Free Text) Plan: 36F POD#34 s/p gastrojejunostomy w/ bypass and feeding jejunostomy Cont tube feeds via J tube Trach suctions Q1H f/u with GI for possible endoscopic evaluation Cont anti-emetic/prokinetics PRN Management as per ICU/primary teams Julio Cesar Wells PGY1
--- NOTE | 2017-05-22 08:21 | CP.PCM.PN ---
Subjective - Date & Time of Evaluation Date of Evaluation: 05/22/17 Time of Evaluation: 08:20 - Subjective Subjective: Medicine progress note for Dr. Reyes Patient seen and examined. Unable to obtain ROS since patient is non-verbal at baseline. Patient was able to tolerate feedings last night at very low rate. Objective - Vital Signs/Intake and Output Vital Signs (last 24 hours): Temp Pulse Resp BP Pulse Ox 98.6 F 124 H 26 H 107/74 100 05/22/17 04:00 05/22/17 06:00 05/22/17 06:00 05/22/17 05:58 05/22/17 06:00 Intake and Output: 05/22/17 05/22/17 06:59 18:59 Intake Total 865 Output Total 930 Balance -65 - Medications Medications: Current Medications Acetaminophen (Tylenol 650mg/20.3ml Solution Ud) 650 mg PO Q4 PRN PRN Reason: Temperature Last Admin: 05/09/17 12:31 Dose: 650 mg Ascorbic Acid (Vitamin C 500 Mg Tab) 500 mg PO DAILY [facility] Last Admin: 05/21/17 09:56 Dose: 500 mg Ergocalciferol (Drisdol 50,000 Intl Units Cap) 1 cap PO QWK [facility] Last Admin: 05/19/17 11:10 Dose: 1 cap Heparin Sodium (Porcine) (Heparin) 5,000 units SC Q12H [facility] Last Admin: 05/21/17 20:10 Dose: 5,000 units Dextrose/Sodium Chloride (Dextrose 5%/0.45% Ns 1000 Ml) 1,000 mls @ 45 mls/hr IV .[id number] [facility] Last Admin: 05/21/17 18:01 Dose: 45 mls/hr Levetiracetam (Keppra) 500 mg PO BID [facility] Last Admin: 05/21/17 18:04 Dose: 500 mg Metoclopramide HCl (Reglan) 10 mg IVP DAILY [facility] Last Admin: 05/21/17 09:56 Dose: 10 mg Metoprolol Tartrate (Lopressor) 75 mg PO Q12 [facility] Last Admin: 05/21/17 21:05 Dose: 75 mg Metoprolol Tartrate (Lopressor) 5 mg IVP Q4H PRN PRN Reason: Systolic Blood Pressure Last Admin: 05/22/17 05:34 Dose: 5 mg Multivitamins (Hexavitamin) 1 tab PO DAILY [facility] Last Admin: 05/21/17 09:56 Dose: 1 tab Pantoprazole Sodium (Protonix Inj) 40 mg IVP DAILY [facility] Last Admin: 05/21/17 09:56 Dose: 40 mg Quetiapine Fumarate (Seroquel) 200 mg PO BID [facility] Last Admin: 05/21/17 18:04 Dose: 200 mg - Labs Labs: 05/22/17 06:23 05/22/17 06:23 PT 14.0 SECONDS (9.7-12.2) H 04/25/17 06:25 INR 1.2 04/25/17 06:25 APTT 32 SECONDS (21-34) 04/25/17 06:25 - Additional Findings Additional findings: - Constitutional Appears: No Acute Distress, Chronically Ill - Head Exam Head Exam: ATRAUMATIC, NORMOCEPHALIC - Eye Exam Eye Exam: EOMI, Normal appearance - ENT Exam ENT Exam: Mucous Membranes Moist Additional comments: NGT in place - Respiratory Exam Additional comments: Coarse breath sounds - Cardiovascular Exam Cardiovascular Exam: Tachycardia, +S1, +S2 - GI/Abdominal Exam GI & Abdominal Exam: Soft. absent: Tenderness Additional comments: Ostomy with J tube in place - Extremities Exam Extremities Exam: absent: Pedal Edema, Tenderness - Neurological Exam Neurological Exam: Altered (non-verbal at baseline) - Skin Skin Exam: Dry, Warm Additional comments: abdominal surgical scar Assessment and Plan - Assessment and Plan (Free Text) Plan: Sepsis Pt off pressors Dr. 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 Possible fatty infiltration vs parenchymal disease. Sludge. Left pleural effusion. Small ascites. Vomiting Reglan 10 mg IV daily Continue to monitor Acute Kidney injury Resolved Dr. Saenz, Nephrology operations consultant Bacteruria ID: Urine Cx (05/02/17) Gram + cocci in the urine Zyvox discontinued Fluconazole 200mg IV Prophylaxis: Protonix 40mg IV daily Heparin 5000 u Q12H SC VitC 500mg PO daily Multivitamin daily Drisdol 50,000iu 1cap PO qweek Possible endoscopic evaluation by GI team later during the week. Will discuss case with Dr. Reyes Management and orders per ICU and Dr. Reyes
--- NOTE | 2017-05-22 08:48 | RAD ---
HISTORY: ng tube COMPARISON: Chest x-ray performed 05/16/17 TECHNIQUE: Chest, one view. FINDINGS: Right-sided dialysis catheter with tips at the right atrium/ SVC junction. Tracheostomy tube. Nasogastric tube extends expected location of the stomach. Left-sided PICC extends to the expected location of the cavoatrial junction. Face mask limits evaluation of the lung apices. LUNGS: No focal consolidation. Please note that chest x-ray has limited sensitivity for the detection of pulmonary masses. PLEURA: No significant pleural effusion identified. No definite pneumothorax . CARDIOVASCULAR: Heart size appears within normal limits. OSSEOUS STRUCTURES: No acute osseous abnormality identified. VISUALIZED UPPER ABDOMEN: Unremarkable. OTHER FINDINGS: None. IMPRESSION: Right-sided dialysis catheter with tips at the right atrium/ SVC junction. Tracheostomy tube. Nasogastric tube extends expected location of the stomach. Left-sided PICC extends to the expected location of the cavoatrial junction.
[2017-05-22] MEDS: Multiple Vitamins Tab PO SCH (09:24)
[2017-05-22] MEDS: levETIRAcetam 100 mg/ml (5ml) Oral Syringe PO SCH ×2 (09:24→18:17)
[2017-05-22] MEDS ORDERED: Sodium Chloride 0.9% 1,000 ML IV ONE ×2 (12:30→14:37)
--- NOTE | 2017-05-22 15:38 | CP.PCM.PN ---
Subjective - Date & Time of Evaluation Date of Evaluation: 05/22/17 Time of Evaluation: 15:35 - Subjective Subjective: Patient had no acute events overnight. Objective - Vital Signs/Intake and Output Vital Signs (last 24 hours): Temp Pulse Resp BP Pulse Ox 98.9 F 113 H 15 84/52 L 100 05/22/17 12:00 05/22/17 14:05 05/22/17 14:05 05/22/17 14:05 05/22/17 14:05 Intake and Output: 05/22/17 05/22/17 06:59 18:59 Intake Total 865 1585 Output Total 930 60 Balance -65 1525 - Medications Medications: Current Medications Acetaminophen (Tylenol 650mg/20.3ml Solution Ud) 650 mg PO Q4 PRN PRN Reason: Temperature Last Admin: 05/09/17 12:31 Dose: 650 mg Ascorbic Acid (Vitamin C 500 Mg Tab) 500 mg PO DAILY [facility] Last Admin: 05/22/17 09:25 Dose: 500 mg Ergocalciferol (Drisdol 50,000 Intl Units Cap) 1 cap PO QWK [facility] Last Admin: 05/19/17 11:10 Dose: 1 cap Heparin Sodium (Porcine) (Heparin) 5,000 units SC Q12H [facility] Last Admin: 05/22/17 09:00 Dose: 5,000 units Dextrose/Sodium Chloride (Dextrose 5%/0.45% Ns 1000 Ml) 1,000 mls @ 45 mls/hr IV .[id number] [facility] Last Admin: 05/21/17 18:01 Dose: 45 mls/hr Sodium Chloride (Sodium Chloride 0.9%) 1,000 mls @ 250 mls/hr IV .Q4H ONE Stop: 05/22/17 18:36 Last Admin: 05/22/17 15:06 Dose: 250 mls/hr Magnesium Sulfate/Dextrose (Magnesium Sulfate 1 Gm/100 Ml D5w) 1 gm in 100 mls @ 300 mls/hr IVPB Q30M [facility] Stop: 05/22/17 16:34 Levetiracetam (Keppra) 500 mg PO BID [facility] Last Admin: 05/22/17 09:24 Dose: 500 mg Metoclopramide HCl (Reglan) 10 mg IVP DAILY [facility] Last Admin: 05/22/17 09:25 Dose: 10 mg Metoprolol Tartrate (Lopressor) 75 mg PO Q12 [facility] Last Admin: 05/22/17 09:24 Dose: 75 mg Metoprolol Tartrate (Lopressor) 5 mg IVP Q4H PRN PRN Reason: Systolic Blood Pressure Last Admin: 05/22/17 05:34 Dose: 5 mg Midodrine (Proamatine) 2.5 mg PO TID [facility] Multivitamins (Hexavitamin) 1 tab PO DAILY [facility] Last Admin: 05/22/17 09:24 Dose: 1 tab Pantoprazole Sodium (Protonix Inj) 40 mg IVP DAILY [facility] Last Admin: 05/22/17 09:25 Dose: 40 mg Quetiapine Fumarate (Seroquel) 200 mg PO BID [facility] Last Admin: 05/22/17 09:24 Dose: 200 mg - Labs Labs: 05/22/17 06:23 05/22/17 06:23 PT 14.0 SECONDS (9.7-12.2) H 04/25/17 06:25 INR 1.2 04/25/17 06:25 APTT 32 SECONDS (21-34) 04/25/17 06:25 - Constitutional Appears: Well, No Acute Distress - Head Exam Head Exam: ATRAUMATIC Additional comments: (+)trach - Respiratory Exam Respiratory Exam: Clear to Ausculation Bilateral. absent: Rales, Rhonchi, Wheezes - Cardiovascular Exam Cardiovascular Exam: Tachycardia, +S1, +S2 - GI/Abdominal Exam GI & Abdominal Exam: Soft Additional comments: ostomy Assessment and Plan - Assessment and Plan (Free Text) Assessment: 36 y/o female with pmx of gastrojujunostomy, tachycardia -tolerating oral diet -SVT/sinus: continue av prateek deondre -obtain sputum culutre -replace electrolytes -OOB to chair -PT/OT -Patient being monitored for tachycardia/telemetry
[2017-05-22] MEDS: Magnesium Sulfate 1 gm in D5W 1 GM/100 ML BAG IVPB SCH (16:58)
[2017-05-22] MEDS: Dextrose 5%/0.45% NS 1,000 ML IV SCH (18:17)
[2017-05-23] MEDS ORDERED: Sodium Chloride 0.9% 1,000 ML IV ONE ×2 (01:13→02:15)
[2017-05-23 02:56] LABS: ARTERIAL BLOOD GAS HCO3 25.6 mmol/L (21-28); ARTERIAL BLOOD GAS O2 SAT 99.9 % (95-98); ARTERIAL BLOOD GAS PCO2 43 mm/Hg (35-45); ARTERIAL BLOOD GAS PH 7.39 (7.35-7.45); ARTERIAL BLOOD GAS PO2 185 mm/Hg (80-100); ARTERIAL BLOOD GAS TCO2 27.3 mmol/L (22-28)
[2017-05-23] MEDS ORDERED: Potassium Chloride 20 mEq/15 ml LIQ UD PO ONE (03:45)
[2017-05-23 06:47] LABS: BASO # 0.1 K/uL (0.0-0.2); BASO % 0.7 % (0.0-2.0); EOS # 0.3 K/uL (0.0-0.7); EOS % 2.6 % (0.0-4.0); HEMOGLOBIN 7.1 g/dL (11.0-16.0); LYMPH # 2.6 K/uL (1.0-4.3); LYMPH % 22.2 % (20.0-40.0); MEAN CORPUSCULAR HEMOGLOBIN 27.5 pg (27.0-31.0); MEAN PLATELET VOLUME 9.4 fL (7.2-11.7); MONO % 8.8 % (0.0-10.0); NEUT # 7.7 K/uL (1.8-7.0); NEUT % 65.7 % (50.0-75.0); RBC 2.56 Mil/uL (3.80-5.20); RED CELL DISTRIBUTION WIDTH 15.3 % (11.5-14.5); WHITE BLOOD COUNT 11.7 K/uL (4.8-10.8)
[2017-05-23 07:07] LABS: ALB/GLOB RATIO 0.8 (1.0-2.1); ALBUMIN 2.7 g/dL (3.5-5.0); ALT/SGPT 25 U/L (9-52); AST/SGOT 18 U/L (14-36); BLOOD UREA NITROGEN 3 mg/dL (7-17); CALCIUM 7.8 mg/dl (8.6-10.4); GFR AFRICAN-AMERICAN > 60; GFR NON-AFRICAN AMERICAN > 60
--- NOTE | 2017-05-23 08:37 | CP.PCM.PN ---
Subjective - Date & Time of Evaluation Date of Evaluation: 05/23/17 Time of Evaluation: 07:30 - Subjective Subjective: General Surgery Pt S&E, NAEO. No emesis overnight. Holding tube feeds for possible scope today. Pt Non verbal. Objective - Vital Signs/Intake and Output Vital Signs (last 24 hours): Temp Pulse Resp BP Pulse Ox 99.7 F H 132 H 28 H 106/56 L 100 05/23/17 04:00 05/23/17 07:00 05/23/17 07:00 05/23/17 06:51 05/23/17 07:00 Intake and Output: 05/23/17 05/23/17 06:59 18:59 Intake Total 3460 75 Output Total 2350 Balance 1110 75 - Medications Medications: Current Medications Acetaminophen (Tylenol 650mg/20.3ml Solution Ud) 650 mg PO Q4 PRN PRN Reason: Temperature Last Admin: 05/09/17 12:31 Dose: 650 mg Ascorbic Acid (Vitamin C 500 Mg Tab) 500 mg PO DAILY [facility] Last Admin: 05/22/17 09:25 Dose: 500 mg Ergocalciferol (Drisdol 50,000 Intl Units Cap) 1 cap PO QWK [facility] Last Admin: 05/19/17 11:10 Dose: 1 cap Heparin Sodium (Porcine) (Heparin) 5,000 units SC Q12H [facility] Last Admin: 05/22/17 20:24 Dose: 5,000 units Dextrose/Sodium Chloride (Dextrose 5%/0.45% Ns 1000 Ml) 1,000 mls @ 45 mls/hr IV .[id number] [facility] Last Admin: 05/22/17 18:17 Dose: 45 mls/hr Levetiracetam (Keppra) 500 mg PO BID [facility] Last Admin: 05/22/17 18:17 Dose: 500 mg Metoclopramide HCl (Reglan) 10 mg IVP DAILY [facility] Last Admin: 05/22/17 09:25 Dose: 10 mg Metoprolol Tartrate (Lopressor) 75 mg PO Q12 [facility] Last Admin: 05/22/17 23:04 Dose: 75 mg Metoprolol Tartrate (Lopressor) 5 mg IVP Q4H PRN PRN Reason: Systolic Blood Pressure Last Admin: 05/22/17 05:34 Dose: 5 mg Midodrine (Proamatine) 2.5 mg PO TID [facility] Last Admin: 05/22/17 18:29 Dose: 2.5 mg Multivitamins (Hexavitamin) 1 tab PO DAILY [facility] Last Admin: 05/22/17 09:24 Dose: 1 tab Pantoprazole Sodium (Protonix Inj) 40 mg IVP DAILY [facility] Last Admin: 05/22/17 09:25 Dose: 40 mg Quetiapine Fumarate (Seroquel) 200 mg PO BID [facility] Last Admin: 05/22/17 18:18 Dose: 200 mg - Labs Labs: 05/23/17 06:38 05/23/17 06:37 PT 14.0 SECONDS (9.7-12.2) H 04/25/17 06:25 INR 1.2 04/25/17 06:25 APTT 32 SECONDS (21-34) 04/25/17 06:25 - Constitutional Appears: Non-toxic, No Acute Distress - Head Exam Head Exam: ATRAUMATIC, NORMOCEPHALIC - Eye Exam Eye Exam: EOMI. absent: Scleral icterus - Respiratory Exam Respiratory Exam: NORMAL BREATHING PATTERN. absent: Respiratory Distress Additional comments: trach in place - GI/Abdominal Exam GI & Abdominal Exam: Soft. absent: Distended, Guarding, Tenderness Additional comments: stoma pink, viable Incision C/D/I - Neurological Exam Neurological Exam: Alert, Awake - Skin Skin Exam: Dry, Warm Assessment and Plan - Assessment and Plan (Free Text) Assessment: 36F POD#35 s/p gastrojejunostomy w/ bypass and feeding jejunostomy Plan: Trach suction Q1H F/U with GI for possible endoscopic evaluation Management as per ICU/primary teams Holding tube feeds at this time. Restart if no endoscopic eval today. D/W Dr. Andrea Seay PGY4
[2017-05-23] MEDS: levETIRAcetam 100 mg/ml (5ml) Oral Syringe PO SCH ×2 (11:03→17:41)
[2017-05-23] MEDS: Metoprolol 1 mg/ml Inj IVP PRN (11:04)
[2017-05-23] MEDS: Multiple Vitamins Tab PO SCH (11:05)
--- NOTE | 2017-05-23 11:41 | CP.CCUPN ---
CCU Subjective - Physician Review Events Since Last Encounter (Free Text): 05/23/17 11:42 Patient seen and examined at bedside this A.M. Per nursing no acute events occurred overnight. Patient scheduled for EGD today. Critical Care Time Spent (in minutes): 45 CCU Objective - Vital Signs / Intake & Output Intake and Output (Last 8hrs): Intake & Output 05/22/17 05/23/17 05/23/17 22:59 06:59 14:59 Intake Total 1860 2900 75 Output Total 1000 2250 Balance 860 650 75 Intake: Intake, IV Amount 1560 2560 45 Left Distal Port PICC 1200 2200 Left PICC Proximal Port 360 360 45 Tube Feeding 240 240 30 Other 60 100 Output: Gastric Amount 50 1200 Right Nares 50 1200 Drainage 50 jejunostomy 50 Urine 900 1050 Urine, Voided 900 1050 - Physical Exam Head: Positive for: Atraumatic, Normocephalic. Negative for: Tenderness Pupils: Positive for: PERRL Extroacular Muscles: Positive for: EOMI Mouth: Positive for: Moist Mucous Membranes. Negative for: Dry, Drooling Nose (External): Positive for: Other (NGT in place) Nose (Internal): Positive for: Normal Inspection, Moist Neck: Positive for: Other (trach). Negative for: JVD, Lymphadenopathy Respiratory/Chest: Positive for: Clear to Auscultation. Negative for: Respiratory Distress, Accessory Muscle Use Cardiovascular: Positive for: Regular Rate and Rhythm, Normal S1, S2 Abdomen: Positive for: Tenderness (mild tenderness of palpation. patient continues to move her arms towards hands on palpation), Normal Bowel Sounds. Negative for: Distention, Peritoneal Signs, Guarding Upper Extremity: Positive for: Normal Inspection, Normal ROM, Capillary Refill < 2s. Negative for: Edema Lower Extremity: Positive for: Normal Inspection. Negative for: Edema Neurological: Positive for: CN II-XII Intact Skin: Positive for: Warm, Pale Psychiatric: Positive for: Alert - Medications Active Medications: Active Medications Generic Name Dose Route Start Last Admin Trade Name Freq PRN Reason Stop Dose Admin Acetaminophen 650 mg 04/28/17 20:11 05/09/17 12:31 Tylenol 650mg/20.3ml Solution Ud PO 650 mg Q4 PRN Administration Temperature Ascorbic Acid 500 mg 05/12/17 11:15 05/23/17 11:10 Vitamin C 500 Mg Tab PO 500 mg DAILY AGUSTIN Administration Diltiazem HCl 60 mg 05/23/17 14:00 Cardizem PO TID [facility] Ergocalciferol 1 cap 05/12/17 11:15 05/19/17 11:10 Drisdol 50,000 Intl Units Cap PO 1 cap QWK AGUSTIN Administration Heparin Sodium (Porcine) 5,000 units 05/20/17 20:00 05/23/17 11:04 Heparin SC 5,000 units Q12H AGUSTIN Administration Dextrose/Sodium Chloride 1,000 mls @ 45 mls/hr 05/21/17 16:30 05/22/17 18:17 Dextrose 5%/0.45% Ns 1000 Ml IV 45 mls/hr .[id number] AGUSTIN Administration Levetiracetam 500 mg 05/20/17 11:15 05/23/17 11:03 Keppra PO 500 mg BID AGUSTIN Administration Metoclopramide HCl 10 mg 05/12/17 11:00 05/23/17 11:10 Reglan IVP 10 mg DAILY [facility] Administration Metoprolol Tartrate 5 mg 05/20/17 19:40 05/23/17 11:04 Lopressor IVP 5 mg Q4H PRN Administration Systolic Blood Pressure Midodrine 2.5 mg 05/22/17 18:00 05/23/17 11:04 Proamatine PO 2.5 mg TID AGUSTIN Administration Multivitamins 1 tab 05/17/17 10:00 05/23/17 11:05 Hexavitamin PO 1 tab DAILY [facility] Administration Pantoprazole Sodium 40 mg 05/20/17 11:00 05/23/17 11:04 Protonix Inj IVP 40 mg DAILY [facility] Administration Quetiapine Fumarate 200 mg 05/18/17 11:45 05/23/17 11:04 Seroquel PO 200 mg BID AGUSTIN Administration - Patient Studies Lab Studies: Microbiology Studies 05/22/17 18:20 Gram Stain - Final Trachasp Sputum Culture - Preliminary Gram Negative David Lab Studies 05/23/17 05/23/17 05/23/17 Range/Units 11:21 06:38 06:37 WBC 11.7 H (4.8-10.8) K/uL RBC 2.56 L (3.80-5.20) Mil/uL Hgb 7.1 L (11.0-16.0) g/dL Hct 22.0 L (34.0-47.0) % MCV 86.0 (81.0-99.0) fL MCH 27.5 (27.0-31.0) pg MCHC 32.0 L (33.0-37.0) g/dL RDW 15.3 H (11.5-14.5) % Plt Count 282 (130-400) K/uL MPV 9.4 (7.2-11.7) fL Neut % (Auto) 65.7 (50.0-75.0) % Lymph % (Auto) 22.2 (20.0-40.0) % [place] % (Auto) 8.8 (0.0-10.0) % Eos % (Auto) 2.6 (0.0-4.0) % Baso % (Auto) 0.7 (0.0-2.0) % Neut # (Auto) 7.7 H (1.8-7.0) K/uL Lymph # (Auto) 2.6 (1.0-4.3) K/uL [place] # (Auto) 1.0 H (0.0-0.8) K/uL Eos # (Auto) 0.3 (0.0-0.7) K/uL Baso # (Auto) 0.1 (0.0-0.2) K/uL Puncture Site pCO2 (35-45) mm/Hg pO2 (80-100) mm/Hg HCO3 (21-28) mmol/L ABG pH (7.35-7.45) ABG Total CO2 (22-28) mmol/L ABG O2 Saturation (95-98) % ABG Base Excess (-2.0-3.0) mmol/L Daniel Test ABG Potassium (3.6-5.2) mmol/L A-a O2 Difference mm/Hg Respiratory Index Sodium 135 (132-148) mmol/l Chloride 105 (98-107) mmol/L Glucose (65-105) mg/dl Lactate (0.7-2.1) mmol/L FiO2 % Potassium 4.0 (3.6-5.2) mmol/L Carbon Dioxide 22 (22-30) mmol/L Anion Gap 11 (10-20) BUN 3 L (7-17) mg/dL Creatinine 0.4 L (0.7-1.2) mg/dL Est GFR ( Amer) > 60 Est GFR (Non-Af Amer) > 60 POC Glucose (mg/dL) 97 (65-110) mg/dL Random Glucose 99 (65-105) mg/dL Calcium 7.8 L (8.6-10.4) mg/dl Phosphorus 3.1 (2.5-4.5) mg/dL Magnesium 1.7 (1.6-2.3) mg/dL Total Bilirubin 0.3 (0.2-1.3) mg/dL AST 18 (14-36) U/L ALT 25 (9-52) U/L Alkaline Phosphatase 108 (38-126) U/L Total Protein 5.8 L (6.3-8.3) g/dL Albumin 2.7 L (3.5-5.0) g/dL Globulin 3.2 (2.2-3.9) gm/dL Albumin/Globulin Ratio 0.8 L (1.0-2.1) Arterial Blood Potassium (3.6-5.2) mmol/L 05/23/17 05/23/17 05/23/17 Range/Units 05:46 02:40 00:24 WBC (4.8-10.8) K/uL RBC (3.80-5.20) Mil/uL Hgb (11.0-16.0) g/dL Hct (34.0-47.0) % MCV (81.0-99.0) fL MCH (27.0-31.0) pg MCHC (33.0-37.0) g/dL RDW (11.5-14.5) % Plt Count (130-400) K/uL MPV (7.2-11.7) fL Neut % (Auto) (50.0-75.0) % Lymph % (Auto) (20.0-40.0) % [place] % (Auto) (0.0-10.0) % Eos % (Auto) (0.0-4.0) % Baso % (Auto) (0.0-2.0) % Neut # (Auto) (1.8-7.0) K/uL Lymph # (Auto) (1.0-4.3) K/uL [place] # (Auto) (0.0-0.8) K/uL Eos # (Auto) (0.0-0.7) K/uL Baso # (Auto) (0.0-0.2) K/uL Puncture Site Rb pCO2 43 (35-45) mm/Hg pO2 185 H (80-100) mm/Hg HCO3 25.6 (21-28) mmol/L ABG pH 7.39 (7.35-7.45) ABG Total CO2 27.3 (22-28) mmol/L ABG O2 Saturation 99.9 H (95-98) % ABG Base Excess 0.8 (-2.0-3.0) mmol/L Daniel Test Na ABG Potassium 3.2 L (3.6-5.2) mmol/L A-a O2 Difference 46.0 mm/Hg Respiratory Index 0.2 Sodium 138.0 (132-148) mmol/l Chloride 109.0 H (98-107) mmol/L Glucose 100 (65-105) mg/dl Lactate 0.4 L (0.7-2.1) mmol/L FiO2 40.0 % Potassium (3.6-5.2) mmol/L Carbon Dioxide (22-30) mmol/L Anion Gap (10-20) BUN (7-17) mg/dL Creatinine (0.7-1.2) mg/dL Est GFR ( Amer) Est GFR (Non-Af Amer) POC Glucose (mg/dL) 105 112 H (65-110) mg/dL Random Glucose (65-105) mg/dL Calcium (8.6-10.4) mg/dl Phosphorus (2.5-4.5) mg/dL Magnesium (1.6-2.3) mg/dL Total Bilirubin (0.2-1.3) mg/dL AST (14-36) U/L ALT (9-52) U/L Alkaline Phosphatase (38-126) U/L Total Protein (6.3-8.3) g/dL Albumin (3.5-5.0) g/dL Globulin (2.2-3.9) gm/dL Albumin/Globulin Ratio (1.0-2.1) Arterial Blood Potassium 3.2 L (3.6-5.2) mmol/L 05/22/17 05/22/17 Range/Units 17:47 12:53 WBC (4.8-10.8) K/uL RBC (3.80-5.20) Mil/uL Hgb (11.0-16.0) g/dL Hct (34.0-47.0) % MCV (81.0-99.0) fL MCH (27.0-31.0) pg MCHC (33.0-37.0) g/dL RDW (11.5-14.5) % Plt Count (130-400) K/uL MPV (7.2-11.7) fL Neut % (Auto) (50.0-75.0) % Lymph % (Auto) (20.0-40.0) % [place] % (Auto) (0.0-10.0) % Eos % (Auto) (0.0-4.0) % Baso % (Auto) (0.0-2.0) % Neut # (Auto) (1.8-7.0) K/uL Lymph # (Auto) (1.0-4.3) K/uL [place] # (Auto) (0.0-0.8) K/uL Eos # (Auto) (0.0-0.7) K/uL Baso # (Auto) (0.0-0.2) K/uL Puncture Site pCO2 (35-45) mm/Hg pO2 (80-100) mm/Hg HCO3 (21-28) mmol/L ABG pH (7.35-7.45) ABG Total CO2 (22-28) mmol/L ABG O2 Saturation (95-98) % ABG Base Excess (-2.0-3.0) mmol/L Daniel Test ABG Potassium (3.6-5.2) mmol/L A-a O2 Difference mm/Hg Respiratory Index Sodium (132-148) mmol/l Chloride (98-107) mmol/L Glucose (65-105) mg/dl Lactate (0.7-2.1) mmol/L FiO2 % Potassium (3.6-5.2) mmol/L Carbon Dioxide (22-30) mmol/L Anion Gap (10-20) BUN (7-17) mg/dL Creatinine (0.7-1.2) mg/dL Est GFR ( Amer) Est GFR (Non-Af Amer) POC Glucose (mg/dL) 117 H 107 (65-110) mg/dL Random Glucose (65-105) mg/dL Calcium (8.6-10.4) mg/dl Phosphorus (2.5-4.5) mg/dL Magnesium (1.6-2.3) mg/dL Total Bilirubin (0.2-1.3) mg/dL AST (14-36) U/L ALT (9-52) U/L Alkaline Phosphatase (38-126) U/L Total Protein (6.3-8.3) g/dL Albumin (3.5-5.0) g/dL Globulin (2.2-3.9) gm/dL Albumin/Globulin Ratio (1.0-2.1) Arterial Blood Potassium (3.6-5.2) mmol/L Laboratory Results - last 24 hr 05/22/17 05/22/17 05/23/17 12:53 17:47 00:24 WBC RBC Hgb Hct MCV MCH MCHC RDW Plt Count MPV Neut % (Auto) Lymph % (Auto) [place] % (Auto) Eos % (Auto) Baso % (Auto) Neut # (Auto) Lymph # (Auto) [place] # (Auto) Eos # (Auto) Baso # (Auto) Puncture Site pCO2 pO2 HCO3 ABG pH ABG Total CO2 ABG O2 Saturation ABG Base Excess Daniel Test ABG Potassium A-a O2 Difference Respiratory Index Sodium Chloride Glucose Lactate FiO2 Potassium Carbon Dioxide Anion Gap BUN Creatinine Est GFR ( Amer) Est GFR (Non-Af Amer) POC Glucose (mg/dL) 107 117 H 112 H Random Glucose Calcium Phosphorus Magnesium Total Bilirubin AST ALT Alkaline Phosphatase Total Protein Albumin Globulin Albumin/Globulin Ratio Arterial Blood Potassium 05/23/17 05/23/17 05/23/17 02:40 05:46 06:37 WBC RBC Hgb Hct MCV MCH MCHC RDW Plt Count MPV Neut % (Auto) Lymph % (Auto) [place] % (Auto) Eos % (Auto) Baso % (Auto) Neut # (Auto) Lymph # (Auto) [place] # (Auto) Eos # (Auto) Baso # (Auto) Puncture Site Rb pCO2 43 pO2 185 H HCO3 25.6 ABG pH 7.39 ABG Total CO2 27.3 ABG O2 Saturation 99.9 H ABG Base Excess 0.8 Daniel Test Na ABG Potassium 3.2 L A-a O2 Difference 46.0 Respiratory Index 0.2 Sodium 138.0 135 Chloride 109.0 H 105 Glucose 100 Lactate 0.4 L FiO2 40.0 Potassium 4.0 Carbon Dioxide 22 Anion Gap 11 BUN 3 L Creatinine 0.4 L Est GFR ( Amer) > 60 Est GFR (Non-Af Amer) > 60 POC Glucose (mg/dL) 105 Random Glucose 99 Calcium 7.8 L Phosphorus 3.1 Magnesium 1.7 Total Bilirubin 0.3 AST 18 ALT 25 Alkaline Phosphatase 108 Total Protein 5.8 L Albumin 2.7 L Globulin 3.2 Albumin/Globulin Ratio 0.8 L Arterial Blood Potassium 3.2 L 05/23/17 05/23/17 06:38 11:21 WBC 11.7 H RBC 2.56 L Hgb 7.1 L Hct 22.0 L MCV 86.0 MCH 27.5 MCHC 32.0 L RDW 15.3 H Plt Count 282 MPV 9.4 Neut % (Auto) 65.7 Lymph % (Auto) 22.2 [place] % (Auto) 8.8 Eos % (Auto) 2.6 Baso % (Auto) 0.7 Neut # (Auto) 7.7 H Lymph # (Auto) 2.6 [place] # (Auto) 1.0 H Eos # (Auto) 0.3 Baso # (Auto) 0.1 Puncture Site pCO2 pO2 HCO3 ABG pH ABG Total CO2 ABG O2 Saturation ABG Base Excess Daniel Test ABG Potassium A-a O2 Difference Respiratory Index Sodium Chloride Glucose Lactate FiO2 Potassium Carbon Dioxide Anion Gap BUN Creatinine Est GFR ( Amer) Est GFR (Non-Af Amer) POC Glucose (mg/dL) 97 Random Glucose Calcium Phosphorus Magnesium Total Bilirubin AST ALT Alkaline Phosphatase Total Protein Albumin Globulin Albumin/Globulin Ratio Arterial Blood Potassium Fingerstick Blood Sugar Results: 105 Assessment/Plan - Assessment and Plan (Free Text) Plan: Psych: Schizophrenia - Seroquel 200mg PO BID - measure QTc and call if >500 Neuro: Seizure disorder - Keppra 500mg @ 420ml/hr IVPD 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
[2017-05-23] MEDS: Dextrose 5%/0.45% NS 1,000 ML IV SCH (12:53)
[2017-05-23] MEDS ORDERED: Phenylephrine 10 mg/ml Inj ONE (13:02)
[2017-05-23] MEDS ORDERED: Etomidate 20 mg/10ml Inj IV ONE (13:04)
[2017-05-23] MEDS ORDERED: Lactated Ringer's 1,000 ML IV ONE ×2 (13:15)
[2017-05-24] MEDS: Metoprolol 1 mg/ml Inj IVP PRN ×3 (02:30→08:00)
[2017-05-24 07:17] LABS: BASO % 0.2 % (0.0-2.0); EOS % 0.2 % (0.0-4.0); HEMOGLOBIN 8.1 g/dL (11.0-16.0); LYMPH # 1.7 K/uL (1.0-4.3); LYMPH % 9.2 % (20.0-40.0); MEAN CELL VOLUME 85.6 fL (81.0-99.0); MEAN CORPUSCULAR HEMOGLOBIN 28.1 pg (27.0-31.0); MEAN CORPUSCULAR HGB CONC 32.9 g/dL (33.0-37.0); MONO # 1.3 K/uL (0.0-0.8); NEUT # 15.5 K/uL (1.8-7.0); NEUT % 83.4 % (50.0-75.0); PLATELET COUNT 338 K/uL (130-400); RBC 2.88 Mil/uL (3.80-5.20); RED CELL DISTRIBUTION WIDTH 15.4 % (11.5-14.5)
[2017-05-24 07:28] LABS: WHITE BLOOD COUNT 18.6 K/uL (4.8-10.8)
[2017-05-24 07:40] LABS: ALB/GLOB RATIO 0.9 (1.0-2.1); ALBUMIN 3.2 g/dL (3.5-5.0); ALT/SGPT 38 U/L (9-52); AST/SGOT 41 U/L (14-36); BLOOD UREA NITROGEN 2 mg/dL (7-17); CALCIUM 9.1 mg/dl (8.6-10.4); GFR AFRICAN-AMERICAN > 60; GFR NON-AFRICAN AMERICAN > 60
--- NOTE | 2017-05-24 08:57 | CP.PCM.PN ---
Subjective - Date & Time of Evaluation Date of Evaluation: 05/24/17 Time of Evaluation: 07:15 - Subjective Subjective: PGY5 GI Fellow Progress Note Patient seen and examined bedside this morning. The patient is nonverbal at baseline. No events following the placement of jejunostomy tube yesterday. No issues overnight. 12 system ROS cannot be performed. Objective - Vital Signs/Intake and Output Vital Signs (last 24 hours): Temp Pulse Resp BP Pulse Ox 99 F 148 H 24 97/61 L 100 05/24/17 06:00 05/24/17 08:38 05/24/17 08:38 05/24/17 08:38 05/24/17 08:38 Intake and Output: 05/24/17 05/24/17 06:59 18:59 Intake Total 650 90 Output Total 750 Balance 650 -660 - Medications Medications: Current Medications Acetaminophen (Tylenol 650mg/20.3ml Solution Ud) 650 mg PO Q4 PRN PRN Reason: Temperature Last Admin: 05/09/17 12:31 Dose: 650 mg Ascorbic Acid (Vitamin C 500 Mg Tab) 500 mg PO DAILY [facility] Last Admin: 05/23/17 11:10 Dose: 500 mg Diltiazem HCl (Cardizem) 60 mg PO TID [facility] Last Admin: 05/23/17 17:41 Dose: 60 mg Ergocalciferol (Drisdol 50,000 Intl Units Cap) 1 cap PO QWK [facility] Last Admin: 05/19/17 11:10 Dose: 1 cap Heparin Sodium (Porcine) (Heparin) 5,000 units SC Q12 [facility] Last Admin: 05/23/17 22:30 Dose: 5,000 units Dextrose/Sodium Chloride (Dextrose 5%/0.45% Ns 1000 Ml) 1,000 mls @ 45 mls/hr IV .[id number] [facility] Last Admin: 05/23/17 12:53 Dose: 45 mls/hr Cefazolin Sodium 500 mg/ (Sodium Chloride) 100 mls @ 100 mls/hr IVPB Q8H [facility] Last Admin: 05/24/17 04:45 Dose: 100 mls/hr Levetiracetam (Keppra) 500 mg PO BID [facility] Last Admin: 05/23/17 17:41 Dose: 500 mg Metoclopramide HCl (Reglan) 10 mg IVP DAILY [facility] Last Admin: 05/23/17 11:10 Dose: 10 mg Metoprolol Tartrate (Lopressor) 5 mg IVP Q4H PRN PRN Reason: Systolic Blood Pressure Last Admin: 05/24/17 06:44 Dose: 5 mg Midodrine (Proamatine) 2.5 mg PO TID [facility] Last Admin: 05/23/17 17:41 Dose: 2.5 mg Multivitamins (Hexavitamin) 1 tab PO DAILY [facility] Last Admin: 05/23/17 11:05 Dose: 1 tab Pantoprazole Sodium (Protonix Inj) 40 mg IVP DAILY [facility] Last Admin: 05/23/17 11:04 Dose: 40 mg Quetiapine Fumarate (Seroquel) 200 mg PO BID [facility] Last Admin: 05/23/17 17:42 Dose: 200 mg - Labs Labs: 05/24/17 07:08 05/24/17 07:08 PT 14.0 SECONDS (9.7-12.2) H 04/25/17 06:25 INR 1.2 04/25/17 06:25 APTT 32 SECONDS (21-34) 04/25/17 06:25 - Constitutional Appears: Non-toxic, No Acute Distress - Eye Exam Eye Exam: EOMI, PERRL - ENT Exam ENT Exam: Mucous Membranes Dry - Respiratory Exam Respiratory Exam: Clear to Ausculation Bilateral. absent: Rales, Rhonchi, Wheezes - Cardiovascular Exam Cardiovascular Exam: RRR, +S1, +S2 - GI/Abdominal Exam GI & Abdominal Exam: Soft, Normal Bowel Sounds. absent: Distended, Firm, Guarding, Rigid, Tenderness, Organomegaly Additional comments: Jejunostomy-tube present in RUQ, lateral; open ostomy present from prior surgical procedure without ostomy collection bag, some leakage of stool noted - Extremities Exam Extremities Exam: Normal Inspection. 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
[2017-05-24 09:29] LABS: BANDS 1 % (0-2); EOSINOPHIL 1 % (0-4); LYMPHOCYTE 5 % (20-40); MONOCYTE 7 % (0-10); NEUTROPHIL 86 % (50-75); PLATELET ESTIMATE NORMAL (NORMAL); TOTAL CELLS COUNTED 100
[2017-05-24 09:30] LABS: ANISOCYTOSIS SLIGHT; HYPOCHROMIC SLIGHT; POIKILOCYTOSIS SLIGHT; TARGET CELLS SLIGHT
--- NOTE | 2017-05-24 09:49 | CP.PCM.PN ---
Subjective - Date & Time of Evaluation Date of Evaluation: 05/24/17 Time of Evaluation: 07:10 - Subjective Subjective: General surgery progress note for Dr. Bishnu Rothman, PGY-1 Pt S & E at bedside. Pt sitting comfortably in chair. Pt had PEJ placed yesterday with GI- in place. No acute events. Objective - Vital Signs/Intake and Output Vital Signs (last 24 hours): Temp Pulse Resp BP Pulse Ox 99 F 148 H 24 97/61 L 100 05/24/17 06:00 05/24/17 08:38 05/24/17 08:38 05/24/17 08:38 05/24/17 08:38 Intake and Output: 05/24/17 05/24/17 06:59 18:59 Intake Total 650 90 Output Total 750 Balance 650 -660 - Medications Medications: Current Medications Acetaminophen (Tylenol 650mg/20.3ml Solution Ud) 650 mg PO Q4 PRN PRN Reason: Temperature Last Admin: 05/09/17 12:31 Dose: 650 mg Ascorbic Acid (Vitamin C 500 Mg Tab) 500 mg PO DAILY [facility] Last Admin: 05/23/17 11:10 Dose: 500 mg Diltiazem HCl (Cardizem) 60 mg PO TID [facility] Last Admin: 05/23/17 17:41 Dose: 60 mg Ergocalciferol (Drisdol 50,000 Intl Units Cap) 1 cap PO QWK [facility] Last Admin: 05/19/17 11:10 Dose: 1 cap Heparin Sodium (Porcine) (Heparin) 5,000 units SC Q12 [facility] Last Admin: 05/23/17 22:30 Dose: 5,000 units Dextrose/Sodium Chloride (Dextrose 5%/0.45% Ns 1000 Ml) 1,000 mls @ 45 mls/hr IV .[id number] [facility] Last Admin: 05/23/17 12:53 Dose: 45 mls/hr Cefazolin Sodium 500 mg/ (Sodium Chloride) 100 mls @ 100 mls/hr IVPB Q8H [facility] Last Admin: 05/24/17 04:45 Dose: 100 mls/hr Levetiracetam (Keppra) 500 mg PO BID [facility] Last Admin: 05/23/17 17:41 Dose: 500 mg Metoclopramide HCl (Reglan) 10 mg IVP DAILY [facility] Last Admin: 05/23/17 11:10 Dose: 10 mg Metoprolol Tartrate (Lopressor) 5 mg IVP Q4H PRN PRN Reason: Systolic Blood Pressure Last Admin: 05/24/17 06:44 Dose: 5 mg Midodrine (Proamatine) 2.5 mg PO TID [facility] Last Admin: 05/23/17 17:41 Dose: 2.5 mg Multivitamins (Hexavitamin) 1 tab PO DAILY [facility] Last Admin: 05/23/17 11:05 Dose: 1 tab Pantoprazole Sodium (Protonix Inj) 40 mg IVP DAILY [facility] Last Admin: 05/23/17 11:04 Dose: 40 mg Quetiapine Fumarate (Seroquel) 200 mg PO BID [facility] Last Admin: 05/23/17 17:42 Dose: 200 mg - Labs Labs: 05/24/17 07:08 05/24/17 07:08 PT 14.0 SECONDS (9.7-12.2) H 04/25/17 06:25 INR 1.2 04/25/17 06:25 APTT 32 SECONDS (21-34) 04/25/17 06:25 - Constitutional Appears: Non-toxic, No Acute Distress - Head Exam Head Exam: ATRAUMATIC, NORMAL INSPECTION, NORMOCEPHALIC Additional comments: Tracheostomy in place - Eye Exam Eye Exam: EOMI, Normal appearance - ENT Exam ENT Exam: Mucous Membranes Moist, Normal Exam - Respiratory Exam Respiratory Exam: NORMAL BREATHING PATTERN - Cardiovascular Exam Cardiovascular Exam: REGULAR RHYTHM, +S1, +S2 - GI/Abdominal Exam GI & Abdominal Exam: Soft. absent: Distended, Firm, Guarding, Tenderness Additional comments: PEJ in place. Ostomy with dressing over it. - Extremities Exam Extremities Exam: Normal Inspection - Neurological Exam Neurological Exam: Awake Additional comments: non verbal - Psychiatric Exam Additional comments: non verbal-baseline - Skin Skin Exam: Dry, Intact, Normal Color, Warm Assessment and Plan - Assessment and Plan (Free Text) Assessment: 36F POD#36 s/p gastrojejunostomy w/bypass and feeding jejunostomy, s/p PEJ tube placement by GI Plan: Trach suction Q1H PEJ tube feeds Further mgmt as per primary and ICU teams Will DW attending Lorna, PGY-
--- NOTE | 2017-05-24 10:16 | CP.PCM.PN ---
Subjective - Date & Time of Evaluation Date of Evaluation: 05/24/17 Time of Evaluation: 07:00 - Subjective Subjective: pseudomonas sputum cefepime added Objective - Vital Signs/Intake and Output Vital Signs (last 24 hours): Temp Pulse Resp BP Pulse Ox 99 F 148 H 24 97/61 L 100 05/24/17 06:00 05/24/17 08:38 05/24/17 08:38 05/24/17 08:38 05/24/17 08:38 Intake and Output: 05/24/17 05/24/17 06:59 18:59 Intake Total 650 90 Output Total 750 Balance 650 -660 - Medications Medications: Current Medications Acetaminophen (Tylenol 650mg/20.3ml Solution Ud) 650 mg PO Q4 PRN PRN Reason: Temperature Last Admin: 05/09/17 12:31 Dose: 650 mg Ascorbic Acid (Vitamin C 500 Mg Tab) 500 mg PO DAILY [facility] Last Admin: 05/23/17 11:10 Dose: 500 mg Diltiazem HCl (Cardizem) 60 mg PO TID [facility] Last Admin: 05/23/17 17:41 Dose: 60 mg Ergocalciferol (Drisdol 50,000 Intl Units Cap) 1 cap PO QWK [facility] Last Admin: 05/19/17 11:10 Dose: 1 cap Heparin Sodium (Porcine) (Heparin) 5,000 units SC Q12 [facility] Last Admin: 05/23/17 22:30 Dose: 5,000 units Dextrose/Sodium Chloride (Dextrose 5%/0.45% Ns 1000 Ml) 1,000 mls @ 45 mls/hr IV .[id number] [facility] Last Admin: 05/23/17 12:53 Dose: 45 mls/hr Cefazolin Sodium 500 mg/ (Sodium Chloride) 100 mls @ 100 mls/hr IVPB Q8H [facility] Last Admin: 05/24/17 04:45 Dose: 100 mls/hr Levetiracetam (Keppra) 500 mg PO BID [facility] Last Admin: 05/23/17 17:41 Dose: 500 mg Metoclopramide HCl (Reglan) 10 mg IVP DAILY [facility] Last Admin: 05/23/17 11:10 Dose: 10 mg Metoprolol Tartrate (Lopressor) 5 mg IVP Q4H PRN PRN Reason: Systolic Blood Pressure Last Admin: 05/24/17 06:44 Dose: 5 mg Midodrine (Proamatine) 2.5 mg PO TID [facility] Last Admin: 05/23/17 17:41 Dose: 2.5 mg Multivitamins (Hexavitamin) 1 tab PO DAILY [facility] Last Admin: 05/23/17 11:05 Dose: 1 tab Pantoprazole Sodium (Protonix Inj) 40 mg IVP DAILY [facility] Last Admin: 05/23/17 11:04 Dose: 40 mg Quetiapine Fumarate (Seroquel) 200 mg PO BID [facility] Last Admin: 05/23/17 17:42 Dose: 200 mg - Labs Labs: 05/24/17 07:08 05/24/17 07:08 PT 14.0 SECONDS (9.7-12.2) H 04/25/17 06:25 INR 1.2 04/25/17 06:25 APTT 32 SECONDS (21-34) 04/25/17 06:25 - Constitutional Appears: Non-toxic, Chronically Ill - Eye Exam Eye Exam: PERRL - ENT Exam ENT Exam: Mucous Membranes Dry - Neck Exam Neck Exam: absent: Lymphadenopathy - Respiratory Exam Respiratory Exam: Decreased Breath Sounds - Cardiovascular Exam Cardiovascular Exam: REGULAR RHYTHM - GI/Abdominal Exam GI & Abdominal Exam: Distended, Soft - Rectal Exam Rectal Exam: Deferred - Exam Exam: NORMAL INSPECTION - Extremities Exam Extremities Exam: absent: Pedal Edema - Back Exam Back Exam: absent: CVA tenderness (L), CVA tenderness (R) - Neurological Exam Neurological Exam: Altered - Psychiatric Exam Psychiatric exam: Normal Mood - Skin Skin Exam: Dry Assessment and Plan (1) Acute pancreatitis Status: Resolved (2) Leucocytosis Status: Acute
[2017-05-24] MEDS: levETIRAcetam 100 mg/ml (5ml) Oral Syringe PO SCH ×2 (10:30→17:00)
--- NOTE | 2017-05-24 11:26 | CP.CCUPN ---
<ConstantinoDavidn - Last Filed: 05/24/17 17:38> CCU Subjective - Physician Review Events Since Last Encounter (Free Text): 05/24/17 11:29 Patient had a temperature of 101.4 F overnight. Patient given tylenol supp. Subjective (Free Text): 05/24/17 11:29 Patient seen and examined at bedside. ROS unobtainable due to acuity of condition. Critical Care Time Spent (in minutes): 40 CCU Objective - Vital Signs / Intake & Output Vital Signs (Last 4 hours): Vital Signs Pulse Resp BP Pulse Ox 05/24/17 08:38 148 H 24 97/61 L 100 05/24/17 08:00 137 H 25 H 100 05/24/17 07:38 139 H 25 H 99/65 L 100 Intake and Output (Last 8hrs): Intake & Output 05/23/17 05/24/17 05/24/17 22:59 06:59 14:59 Intake Total 415 415 90 Output Total 325 750 Balance 90 415 -660 Intake: Intake, IV Amount 415 415 90 Left PICC Proximal Port 415 415 90 Output: Urine 325 750 Urine, Voided 325 750 Other: # Bowel Movements 1 1 - Physical Exam Head: Positive for: Atraumatic, Normocephalic. Negative for: Tenderness Pupils: Positive for: PERRL Extroacular Muscles: Positive for: EOMI Mouth: Positive for: Moist Mucous Membranes. Negative for: Dry, Drooling Nose (External): Positive for: Other (NGT in place) Nose (Internal): Positive for: Normal Inspection, Moist Neck: Positive for: Other (trach). Negative for: JVD, Lymphadenopathy Respiratory/Chest: Positive for: Clear to Auscultation. Negative for: Respiratory Distress, Accessory Muscle Use Cardiovascular: Positive for: Regular Rate and Rhythm, Normal S1, S2 Abdomen: Positive for: Tenderness (mild tenderness of palpation. patient continues to move her arms towards hands on palpation), Normal Bowel Sounds. Negative for: Distention, Peritoneal Signs, Guarding Upper Extremity: Positive for: Normal Inspection, Normal ROM, Capillary Refill < 2s. Negative for: Edema Lower Extremity: Positive for: Normal Inspection. Negative for: Edema Neurological: Positive for: CN II-XII Intact Skin: Positive for: Warm, Pale Psychiatric: Positive for: Alert - Medications Active Medications: Active Medications Generic Name Dose Route Start Last Admin Trade Name Freq PRN Reason Stop Dose Admin Acetaminophen 650 mg 04/28/17 20:11 05/09/17 12:31 Tylenol 650mg/20.3ml Solution Ud PO 650 mg Q4 PRN Administration Temperature Ascorbic Acid 500 mg 05/12/17 11:15 05/23/17 11:10 Vitamin C 500 Mg Tab PO 500 mg DAILY AGUSTIN Administration Diltiazem HCl 60 mg 05/23/17 14:00 05/23/17 17:41 Cardizem PO 60 mg TID AGUSTIN Administration Ergocalciferol 1 cap 05/12/17 11:15 05/19/17 11:10 Drisdol 50,000 Intl Units Cap PO 1 cap QWK AGUSTIN Administration Heparin Sodium (Porcine) 5,000 units 05/23/17 22:00 05/23/17 22:30 Heparin SC 5,000 units Q12 AGUSTIN Administration Dextrose/Sodium Chloride 1,000 mls @ 45 mls/hr 05/21/17 16:30 05/23/17 12:53 Dextrose 5%/0.45% Ns 1000 Ml IV 45 mls/hr .[id number] AGUSTIN Administration Cefepime HCl 1 gm in 50 mls @ 100 mls/hr 05/24/17 12:00 Maxipime Iv 1 Gm Premix IVPB Q12H [facility] Levetiracetam 500 mg 05/20/17 11:15 05/23/17 17:41 Keppra PO 500 mg BID AGUSTIN Administration Metoclopramide HCl 10 mg 05/12/17 11:00 05/23/17 11:10 Reglan IVP 10 mg DAILY [facility] Administration Metoprolol Tartrate 5 mg 05/20/17 19:40 05/24/17 06:44 Lopressor IVP 5 mg Q4H PRN Administration Systolic Blood Pressure Multivitamins 1 tab 05/17/17 10:00 05/23/17 11:05 Hexavitamin PO 1 tab DAILY [facility] Administration Pantoprazole Sodium 40 mg 05/20/17 11:00 05/23/17 11:04 Protonix Inj IVP 40 mg DAILY AGUSTIN Administration Quetiapine Fumarate 200 mg 05/18/17 11:45 05/23/17 17:42 Seroquel PO 200 mg BID AGUSTIN Administration - Patient Studies Lab Studies: Microbiology Studies 05/22/17 18:20 Gram Stain - Final Trachasp Sputum Culture - Final Pseudomonas Aeruginosa Lab Studies 05/24/17 05/24/17 05/24/17 Range/Units 07:08 07:08 06:30 WBC 18.6 H D (4.8-10.8) K/uL RBC 2.88 L (3.80-5.20) Mil/uL Hgb 8.1 L (11.0-16.0) g/dL Hct 24.6 L (34.0-47.0) % MCV 85.6 (81.0-99.0) fL MCH 28.1 (27.0-31.0) pg MCHC 32.9 L (33.0-37.0) g/dL RDW 15.4 H (11.5-14.5) % Plt Count 338 (130-400) K/uL MPV 9.0 (7.2-11.7) fL Neut % (Auto) 83.4 H (50.0-75.0) % Lymph % (Auto) 9.2 L (20.0-40.0) % [place] % (Auto) 7.0 (0.0-10.0) % Eos % (Auto) 0.2 (0.0-4.0) % Baso % (Auto) 0.2 (0.0-2.0) % Neut # (Auto) 15.5 H (1.8-7.0) K/uL Lymph # (Auto) 1.7 (1.0-4.3) K/uL [place] # (Auto) 1.3 H (0.0-0.8) K/uL Eos # (Auto) 0.0 (0.0-0.7) K/uL Baso # (Auto) 0.0 (0.0-0.2) K/uL Neutrophils % (Manual) 86 H (50-75) % Band Neutrophils % 1 (0-2) % Lymphocytes % (Manual) 5 L (20-40) % Monocytes % (Manual) 7 (0-10) % Eosinophils % (Manual) 1 (0-4) % Platelet Estimate Normal (NORMAL) Hypochromasia (manual) Slight Poikilocytosis (manual Slight Anisocytosis (manual) Slight Target Cells Slight Sodium 136 (132-148) mmol/L Potassium 3.6 (3.6-5.2) mmol/L Chloride 99 (98-107) mmol/L Carbon Dioxide 25 (22-30) mmol/L Anion Gap 15 (10-20) BUN 2 L (7-17) mg/dL Creatinine 0.5 L (0.7-1.2) mg/dL Est GFR ( Amer) > 60 Est GFR (Non-Af Amer) > 60 POC Glucose (mg/dL) 116 H (65-110) mg/dL Random Glucose 113 H (65-105) mg/dL Calcium 9.1 (8.6-10.4) mg/dl Total Bilirubin 0.5 (0.2-1.3) mg/dL AST 41 H D (14-36) U/L ALT 38 (9-52) U/L Alkaline Phosphatase 182 H D (38-126) U/L Total Protein 6.7 (6.3-8.3) g/dL Albumin 3.2 L (3.5-5.0) g/dL Globulin 3.5 (2.2-3.9) gm/dL Albumin/Globulin Ratio 0.9 L (1.0-2.1) Beta HCG, Quant mIU/ML 05/24/17 05/23/17 05/23/17 Range/Units 01:27 17:58 11:49 WBC (4.8-10.8) K/uL RBC (3.80-5.20) Mil/uL Hgb (11.0-16.0) g/dL Hct (34.0-47.0) % MCV (81.0-99.0) fL MCH (27.0-31.0) pg MCHC (33.0-37.0) g/dL RDW (11.5-14.5) % Plt Count (130-400) K/uL MPV (7.2-11.7) fL Neut % (Auto) (50.0-75.0) % Lymph % (Auto) (20.0-40.0) % [place] % (Auto) (0.0-10.0) % Eos % (Auto) (0.0-4.0) % Baso % (Auto) (0.0-2.0) % Neut # (Auto) (1.8-7.0) K/uL Lymph # (Auto) (1.0-4.3) K/uL [place] # (Auto) (0.0-0.8) K/uL Eos # (Auto) (0.0-0.7) K/uL Baso # (Auto) (0.0-0.2) K/uL Neutrophils % (Manual) (50-75) % Band Neutrophils % (0-2) % Lymphocytes % (Manual) (20-40) % Monocytes % (Manual) (0-10) % Eosinophils % (Manual) (0-4) % Platelet Estimate (NORMAL) Hypochromasia (manual) Poikilocytosis (manual Anisocytosis (manual) Target Cells Sodium (132-148) mmol/L Potassium (3.6-5.2) mmol/L Chloride (98-107) mmol/L Carbon Dioxide (22-30) mmol/L Anion Gap (10-20) BUN (7-17) mg/dL Creatinine (0.7-1.2) mg/dL Est GFR ( Amer) Est GFR (Non-Af Amer) POC Glucose (mg/dL) 107 95 (65-110) mg/dL Random Glucose (65-105) mg/dL Calcium (8.6-10.4) mg/dl Total Bilirubin (0.2-1.3) mg/dL AST (14-36) U/L ALT (9-52) U/L Alkaline Phosphatase (38-126) U/L Total Protein (6.3-8.3) g/dL Albumin (3.5-5.0) g/dL Globulin (2.2-3.9) gm/dL Albumin/Globulin Ratio (1.0-2.1) Beta HCG, Quant < 2.39 mIU/ML 05/23/17 Range/Units 11:21 WBC (4.8-10.8) K/uL RBC (3.80-5.20) Mil/uL Hgb (11.0-16.0) g/dL Hct (34.0-47.0) % MCV (81.0-99.0) fL MCH (27.0-31.0) pg MCHC (33.0-37.0) g/dL RDW (11.5-14.5) % Plt Count (130-400) K/uL MPV (7.2-11.7) fL Neut % (Auto) (50.0-75.0) % Lymph % (Auto) (20.0-40.0) % [place] % (Auto) (0.0-10.0) % Eos % (Auto) (0.0-4.0) % Baso % (Auto) (0.0-2.0) % Neut # (Auto) (1.8-7.0) K/uL Lymph # (Auto) (1.0-4.3) K/uL [place] # (Auto) (0.0-0.8) K/uL Eos # (Auto) (0.0-0.7) K/uL Baso # (Auto) (0.0-0.2) K/uL Neutrophils % (Manual) (50-75) % Band Neutrophils % (0-2) % Lymphocytes % (Manual) (20-40) % Monocytes % (Manual) (0-10) % Eosinophils % (Manual) (0-4) % Platelet Estimate (NORMAL) Hypochromasia (manual) Poikilocytosis (manual Anisocytosis (manual) Target Cells Sodium (132-148) mmol/L Potassium (3.6-5.2) mmol/L Chloride (98-107) mmol/L Carbon Dioxide (22-30) mmol/L Anion Gap (10-20) BUN (7-17) mg/dL Creatinine (0.7-1.2) mg/dL Est GFR ( Amer) Est GFR (Non-Af Amer) POC Glucose (mg/dL) 97 (65-110) mg/dL Random Glucose (65-105) mg/dL Calcium (8.6-10.4) mg/dl Total Bilirubin (0.2-1.3) mg/dL AST (14-36) U/L ALT (9-52) U/L Alkaline Phosphatase (38-126) U/L Total Protein (6.3-8.3) g/dL Albumin (3.5-5.0) g/dL Globulin (2.2-3.9) gm/dL Albumin/Globulin Ratio (1.0-2.1) Beta HCG, Quant mIU/ML Laboratory Results - last 24 hr 05/23/17 05/23/1718 11:21 11:49 17:58 WBC RBC Hgb Hct MCV MCH MCHC RDW Plt Count MPV Neut % (Auto) Lymph % (Auto) [place] % (Auto) Eos % (Auto) Baso % (Auto) Neut # (Auto) Lymph # (Auto) [place] # (Auto) Eos # (Auto) Baso # (Auto) Neutrophils % (Manual) Band Neutrophils % Lymphocytes % (Manual) Monocytes % (Manual) Eosinophils % (Manual) Platelet Estimate Hypochromasia (manual) Poikilocytosis (manual Anisocytosis (manual) Target Cells Sodium Potassium Chloride Carbon Dioxide Anion Gap BUN Creatinine Est GFR ( Amer) Est GFR (Non-Af Amer) POC Glucose (mg/dL) 97 95 Random Glucose Calcium Total Bilirubin AST ALT Alkaline Phosphatase Total Protein Albumin Globulin Albumin/Globulin Ratio Beta HCG, Quant < 2.39 05/24/17 05/24/17 05/24/17 01:27 06:30 07:08 WBC 18.6 H D RBC 2.88 L Hgb 8.1 L Hct 24.6 L MCV 85.6 MCH 28.1 MCHC 32.9 L RDW 15.4 H Plt Count 338 MPV 9.0 Neut % (Auto) 83.4 H Lymph % (Auto) 9.2 L [place] % (Auto) 7.0 Eos % (Auto) 0.2 Baso % (Auto) 0.2 Neut # (Auto) 15.5 H Lymph # (Auto) 1.7 [place] # (Auto) 1.3 H Eos # (Auto) 0.0 Baso # (Auto) 0.0 Neutrophils % (Manual) 86 H Band Neutrophils % 1 Lymphocytes % (Manual) 5 L Monocytes % (Manual) 7 Eosinophils % (Manual) 1 Platelet Estimate Normal Hypochromasia (manual) Slight Poikilocytosis (manual Slight Anisocytosis (manual) Slight Target Cells Slight Sodium Potassium Chloride Carbon Dioxide Anion Gap BUN Creatinine Est GFR ( Amer) Est GFR (Non-Af Amer) POC Glucose (mg/dL) 107 116 H Random Glucose Calcium Total Bilirubin AST ALT Alkaline Phosphatase Total Protein Albumin Globulin Albumin/Globulin Ratio Beta HCG, Quant 05/24/17 07:08 WBC RBC Hgb Hct MCV MCH MCHC RDW Plt Count MPV Neut % (Auto) Lymph % (Auto) [place] % (Auto) Eos % (Auto) Baso % (Auto) Neut # (Auto) Lymph # (Auto) [place] # (Auto) Eos # (Auto) Baso # (Auto) Neutrophils % (Manual) Band Neutrophils % Lymphocytes % (Manual) Monocytes % (Manual) Eosinophils % (Manual) Platelet Estimate Hypochromasia (manual) Poikilocytosis (manual Anisocytosis (manual) Target Cells Sodium 136 Potassium 3.6 Chloride 99 Carbon Dioxide 25 Anion Gap 15 BUN 2 L Creatinine 0.5 L Est GFR ( Amer) > 60 Est GFR (Non-Af Amer) > 60 POC Glucose (mg/dL) Random Glucose 113 H Calcium 9.1 Total Bilirubin 0.5 AST 41 H D ALT 38 Alkaline Phosphatase 182 H D Total Protein 6.7 Albumin 3.2 L Globulin 3.5 Albumin/Globulin Ratio 0.9 L Beta HCG, Quant Fingerstick Blood Sugar Results: 116 Review of Systems - Review of Systems Systems not reviewed;Unavailable: Acuity of Condition Assessment/Plan - Assessment and Plan (Free Text) Plan: Psych: Schizophrenia - Seroquel 200mg PO BID - measure QTc and call if >500 Neuro: Seizure disorder - Keppra 500mg PO BID - Metoclopramide 10mg IVP qd Cards: Tachycardia (persistent), HTN - Cardizem 60mg TID - metoprolol 5mg IV q4h PRN - D/C midodrine 2.5mg PO TID GI: Biliary emesis, constipation - Dulcolax 10mg OH qd PRN - Restart feeds @ 10cc/hr and monitor closely for vomiting/aspiration - EGD with placement jejunostomy tube on 05/23 successful; continue per surgery recs Pulm: ?PNA - repeat CXR - tracheal aspiration culture grew Pseudomonas aeruginosa - Cefepime IV 1g q12h - Trach collar at 40% FiO2, satting 97% PPx: - perma-cath removal c/s surgery - OOB to chair - Drisdol 50,000 IU 1cap PO qwk - VitC 500mg tab PO qd - Multivitamin: 5ml PO qd - Heparin 5000 U SC q8 - Protonix 40mg IVP qd - KCl 10mEq/100 ml @ 100ml/hr IVPB q1h - MgSO4 1g/100ml D5W @ 200 ml/hr - Dextrose 5%/0.9% NS 100ml @ 45 ml/hr IV q20h <Jose Hernandez S - Last Filed: 05/24/17 18:12> CCU Subjective - Physician Review Critical Care Time Spent (in minutes): 25 CCU Objective - Vital Signs / Intake & Output Vital Signs (Last 4 hours): Vital Signs Pulse Resp BP Pulse Ox 05/24/17 17:02 126 H 17 82/48 L 100 05/24/17 17:00 126 H 14 100 05/24/17 16:38 125 H 22 77/43 L 100 05/24/17 16:00 129 H 21 100 05/24/17 15:51 131 H 19 75/41 L 100 05/24/17 15:38 133 H 19 77/42 L 100 05/24/17 15:30 136 H 18 76/39 L 100 05/24/17 15:00 137 H 19 100 05/24/17 14:38 137 H 20 68/33 L 100 Intake and Output (Last 8hrs): Intake & Output 05/24/17 05/24/17 05/24/17 06:59 14:59 22:59 Intake Total 415 415 160 Output Total 1750 250 Balance 415 -9835 -90 Intake: Intake, IV Amount 415 415 135 Left PICC Proximal Port 415 415 135 Tube Feeding 25 Output: Drainage 300 Right Abdomen 300 Urine 1450 250 Urine, Voided 1450 250 Other: # Bowel Movements 1 1 - Medications Active Medications: Active Medications Generic Name Dose Route Start Last Admin Trade Name Freq PRN Reason Stop Dose Admin Acetaminophen 650 mg 04/28/17 20:11 05/24/17 13:27 Tylenol 650mg/20.3ml Solution Ud PO 650 mg Q4 PRN Administration Temperature Ascorbic Acid 500 mg 05/12/17 11:15 05/24/17 12:04 Vitamin C 500 Mg Tab PO 500 mg DAILY AGUSTIN Administration Diltiazem HCl 60 mg 05/23/17 14:00 05/24/17 10:00 Cardizem PO 60 mg TID AGUSTIN Administration Ergocalciferol 1 cap 05/12/17 11:15 05/19/17 11:10 Drisdol 50,000 Intl Units Cap PO 1 cap QWK AGUSTIN Administration Heparin Sodium (Porcine) 5,000 units 05/23/17 22:00 05/24/17 12:03 Heparin SC 5,000 units Q12 AGUSTIN Administration Cefepime HCl 1 gm in 50 mls @ 100 mls/hr 05/24/17 12:00 05/24/17 12:01 Maxipime Iv 1 Gm Premix IVPB 100 mls/hr Q12H AGUSTIN Administration Levetiracetam 500 mg 05/20/17 11:15 05/24/17 10:30 Keppra PO 500 mg BID AGUSTIN Administration Metoclopramide HCl 10 mg 05/12/17 11:00 05/24/17 11:00 Reglan IVP 10 mg DAILY AGUSTIN Administration Metoprolol Tartrate 5 mg 05/20/17 19:40 05/24/17 08:00 Lopressor IVP 5 mg Q4H PRN Administration Systolic Blood Pressure Multivitamins 1 tab 05/17/17 10:00 05/24/17 12:04 Hexavitamin PO 1 tab DAILY AGUSTIN Administration Pantoprazole Sodium 40 mg 05/20/17 11:00 05/24/17 11:00 Protonix Inj IVP 40 mg DAILY AGUSTIN Administration Quetiapine Fumarate 200 mg 05/18/17 11:45 05/24/17 10:00 Seroquel PO 200 mg BID AGUSTIN Administration - Patient Studies Lab Studies: Microbiology Studies 04/25/17 12:02 Blood Fungal Culture - Final Other: Please Indicate 05/22/17 18:20 Gram Stain - Final Trachasp Sputum Culture - Final Pseudomonas Aeruginosa Lab Studies 05/24/17 05/24/17 05/24/17 Range/Units 11:24 07:08 07:08 WBC 18.6 H D (4.8-10.8) K/uL RBC 2.88 L (3.80-5.20) Mil/uL Hgb 8.1 L (11.0-16.0) g/dL Hct 24.6 L (34.0-47.0) % MCV 85.6 (81.0-99.0) fL MCH 28.1 (27.0-31.0) pg MCHC 32.9 L (33.0-37.0) g/dL RDW 15.4 H (11.5-14.5) % Plt Count 338 (130-400) K/uL MPV 9.0 (7.2-11.7) fL Neut % (Auto) 83.4 H (50.0-75.0) % Lymph % (Auto) 9.2 L (20.0-40.0) % [place] % (Auto) 7.0 (0.0-10.0) % Eos % (Auto) 0.2 (0.0-4.0) % Baso % (Auto) 0.2 (0.0-2.0) % Neut # (Auto) 15.5 H (1.8-7.0) K/uL Lymph # (Auto) 1.7 (1.0-4.3) K/uL [place] # (Auto) 1.3 H (0.0-0.8) K/uL Eos # (Auto) 0.0 (0.0-0.7) K/uL Baso # (Auto) 0.0 (0.0-0.2) K/uL Neutrophils % (Manual) 86 H (50-75) % Band Neutrophils % 1 (0-2) % Lymphocytes % (Manual) 5 L (20-40) % Monocytes % (Manual) 7 (0-10) % Eosinophils % (Manual) 1 (0-4) % Platelet Estimate Normal (NORMAL) Hypochromasia (manual) Slight Poikilocytosis (manual Slight Anisocytosis (manual) Slight Target Cells Slight Sodium 136 (132-148) mmol/L Potassium 3.6 (3.6-5.2) mmol/L Chloride 99 (98-107) mmol/L Carbon Dioxide 25 (22-30) mmol/L Anion Gap 15 (10-20) BUN 2 L (7-17) mg/dL Creatinine 0.5 L (0.7-1.2) mg/dL Est GFR ( Amer) > 60 Est GFR (Non-Af Amer) > 60 POC Glucose (mg/dL) 98 (65-110) mg/dL Random Glucose 113 H (65-105) mg/dL Calcium 9.1 (8.6-10.4) mg/dl Total Bilirubin 0.5 (0.2-1.3) mg/dL AST 41 H D (14-36) U/L ALT 38 (9-52) U/L Alkaline Phosphatase 182 H D (38-126) U/L Total Protein 6.7 (6.3-8.3) g/dL Albumin 3.2 L (3.5-5.0) g/dL Globulin 3.5 (2.2-3.9) gm/dL Albumin/Globulin Ratio 0.9 L (1.0-2.1) 05/24/17 05/24/17 Range/Units 06:30 01:27 WBC (4.8-10.8) K/uL RBC (3.80-5.20) Mil/uL Hgb (11.0-16.0) g/dL Hct (34.0-47.0) % MCV (81.0-99.0) fL MCH (27.0-31.0) pg MCHC (33.0-37.0) g/dL RDW (11.5-14.5) % Plt Count (130-400) K/uL MPV (7.2-11.7) fL Neut % (Auto) (50.0-75.0) % Lymph % (Auto) (20.0-40.0) % [place] % (Auto) (0.0-10.0) % Eos % (Auto) (0.0-4.0) % Baso % (Auto) (0.0-2.0) % Neut # (Auto) (1.8-7.0) K/uL Lymph # (Auto) (1.0-4.3) K/uL [place] # (Auto) (0.0-0.8) K/uL Eos # (Auto) (0.0-0.7) K/uL Baso # (Auto) (0.0-0.2) K/uL Neutrophils % (Manual) (50-75) % Band Neutrophils % (0-2) % Lymphocytes % (Manual) (20-40) % Monocytes % (Manual) (0-10) % Eosinophils % (Manual) (0-4) % Platelet Estimate (NORMAL) Hypochromasia (manual) Poikilocytosis (manual Anisocytosis (manual) Target Cells Sodium (132-148) mmol/L Potassium (3.6-5.2) mmol/L Chloride (98-107) mmol/L Carbon Dioxide (22-30) mmol/L Anion Gap (10-20) BUN (7-17) mg/dL Creatinine (0.7-1.2) mg/dL Est GFR ( Amer) Est GFR (Non-Af Amer) POC Glucose (mg/dL) 116 H 107 (65-110) mg/dL Random Glucose (65-105) mg/dL Calcium (8.6-10.4) mg/dl Total Bilirubin (0.2-1.3) mg/dL AST (14-36) U/L ALT (9-52) U/L Alkaline Phosphatase (38-126) U/L Total Protein (6.3-8.3) g/dL Albumin (3.5-5.0) g/dL Globulin (2.2-3.9) gm/dL Albumin/Globulin Ratio (1.0-2.1) Laboratory Results - last 24 hr 05/24/17 05/24/17 05/24/17 01:27 06:30 07:08 WBC 18.6 H D RBC 2.88 L Hgb 8.1 L Hct 24.6 L MCV 85.6 MCH 28.1 MCHC 32.9 L RDW 15.4 H Plt Count 338 MPV 9.0 Neut % (Auto) 83.4 H Lymph % (Auto) 9.2 L [place] % (Auto) 7.0 Eos % (Auto) 0.2 Baso % (Auto) 0.2 Neut # (Auto) 15.5 H Lymph # (Auto) 1.7 [place] # (Auto) 1.3 H Eos # (Auto) 0.0 Baso # (Auto) 0.0 Neutrophils % (Manual) 86 H Band Neutrophils % 1 Lymphocytes % (Manual) 5 L Monocytes % (Manual) 7 Eosinophils % (Manual) 1 Platelet Estimate Normal Hypochromasia (manual) Slight Poikilocytosis (manual Slight Anisocytosis (manual) Slight Target Cells Slight Sodium Potassium Chloride Carbon Dioxide Anion Gap BUN Creatinine Est GFR ( Amer) Est GFR (Non-Af Amer) POC Glucose (mg/dL) 107 116 H Random Glucose Calcium Total Bilirubin AST ALT Alkaline Phosphatase Total Protein Albumin Globulin Albumin/Globulin Ratio 05/24/17 05/24/17 07:08 11:24 WBC RBC Hgb Hct MCV MCH MCHC RDW Plt Count MPV Neut % (Auto) Lymph % (Auto) [place] % (Auto) Eos % (Auto) Baso % (Auto) Neut # (Auto) Lymph # (Auto) [place] # (Auto) Eos # (Auto) Baso # (Auto) Neutrophils % (Manual) Band Neutrophils % Lymphocytes % (Manual) Monocytes % (Manual) Eosinophils % (Manual) Platelet Estimate Hypochromasia (manual) Poikilocytosis (manual Anisocytosis (manual) Target Cells Sodium 136 Potassium 3.6 Chloride 99 Carbon Dioxide 25 Anion Gap 15 BUN 2 L Creatinine 0.5 L Est GFR ( Amer) > 60 Est GFR (Non-Af Amer) > 60 POC Glucose (mg/dL) 98 Random Glucose 113 H Calcium 9.1 Total Bilirubin 0.5 AST 41 H D ALT 38 Alkaline Phosphatase 182 H D Total Protein 6.7 Albumin 3.2 L Globulin 3.5 Albumin/Globulin Ratio 0.9 L Assessment/Plan (1) SMAS (superior mesenteric artery syndrome) Current Visit: Yes Status: Acute Comment: (2) Acute renal failure Current Visit: Yes Status: Acute (3) Mental retardation Current Visit: No Status: Acute Attending/Attestation - Attestation I have personally seen and examined this patient.: Yes I have fully participated in the care of the patient.: Yes I have reviewed all pertinent clinical information: Yes
[2017-05-24] MEDS: Dextrose 5%/0.45% NS 1,000 ML IV SCH (11:30)
[2017-05-24] MEDS: Cefepime IV 1 gm in Dextrose 1 GM/50 ML BAG IVPB SCH ×2 (12:01→23:58)
[2017-05-24] MEDS: Multiple Vitamins Tab PO SCH (12:04)
[2017-05-24] MEDS: Acetaminophen 650mg/20.3ml solution UD PO PRN (13:27)
--- NOTE | 2017-05-24 13:52 | RAD ---
Chest x-ray single frontal view History: Pneumonia. Comparison: 05/21/2017 Findings: Interval removal of a nasogastric tube. Other lines and tubes in stable position. Moderate venous congestion. Right hilar prominence. Mild cardiomegaly. Degenerative changes in the spine and shoulders. Impression: Interval removal of a nasogastric tube. Other lines and tubes in stable position. Moderate venous congestion. Right hilar prominence. Mild cardiomegaly.
[2017-05-25 06:35] LABS: BASO # 0.1 K/uL (0.0-0.2); BASO % 0.7 % (0.0-2.0); EOS # 0.4 K/uL (0.0-0.7); EOS % 1.9 % (0.0-4.0); HEMOGLOBIN 7.6 g/dL (11.0-16.0); LYMPH # 2.3 K/uL (1.0-4.3); LYMPH % 12.3 % (20.0-40.0); MEAN CELL VOLUME 84.8 fL (81.0-99.0); MEAN CORPUSCULAR HEMOGLOBIN 28.4 pg (27.0-31.0); MEAN CORPUSCULAR HGB CONC 33.5 g/dL (33.0-37.0); MEAN PLATELET VOLUME 9.5 fL (7.2-11.7); MONO # 1.8 K/uL (0.0-0.8); MONO % 9.5 % (0.0-10.0); NEUT % 75.6 % (50.0-75.0); RBC 2.69 Mil/uL (3.80-5.20); RED CELL DISTRIBUTION WIDTH 14.9 % (11.5-14.5); WHITE BLOOD COUNT 18.6 K/uL (4.8-10.8)
[2017-05-25 07:04] LABS: ALB/GLOB RATIO 0.8 (1.0-2.1); ALT/SGPT 34 U/L (9-52); AST/SGOT 27 U/L (14-36); BLOOD UREA NITROGEN 6 mg/dL (7-17); CALCIUM 8.8 mg/dl (8.6-10.4); GFR AFRICAN-AMERICAN > 60; GFR NON-AFRICAN AMERICAN > 60
[2017-05-25] MEDS: Metoprolol 1 mg/ml Inj IVP PRN (07:54)
--- NOTE | 2017-05-25 09:56 | CP.PCM.PN ---
<Elliot Ye - Last Filed: 05/25/17 09:50> Subjective - Date & Time of Evaluation Date of Evaluation: 05/25/17 Time of Evaluation: 07:30 - Subjective Subjective: PGY5 GI Fellow Progress Note Patient seen and examined bedside this morning. The patient is nonverbal at baseline. Nursing staff were able to advance tube feeds to 35cc/hr without any episodes of vomiting overnight. 12 system ROS cannot be performed as patient nonverbal. Objective - Vital Signs/Intake and Output Vital Signs (last 24 hours): Temp Pulse Resp BP Pulse Ox 100.1 F H 142 H 16 98/65 L 99 05/25/17 05:00 05/25/17 08:38 05/25/17 08:38 05/25/17 08:38 05/25/17 08:38 Intake and Output: 05/25/17 05/25/17 06:59 18:59 Intake Total 430 35 Output Total 300 1200 Balance 130 -1165 - Medications Medications: Current Medications Acetaminophen (Tylenol 650mg/20.3ml Solution Ud) 650 mg PO Q4 PRN PRN Reason: Temperature Last Admin: 05/24/17 13:27 Dose: 650 mg Ascorbic Acid (Vitamin C 500 Mg Tab) 500 mg PO DAILY [facility] Last Admin: 05/24/17 12:04 Dose: 500 mg Diltiazem HCl (Cardizem) 60 mg PO TID [facility] Last Admin: 05/24/17 18:37 Dose: Not Given Ergocalciferol (Drisdol 50,000 Intl Units Cap) 1 cap PO QWK [facility] Last Admin: 05/19/17 11:10 Dose: 1 cap Heparin Sodium (Porcine) (Heparin) 5,000 units SC Q12 [facility] Last Admin: 05/24/17 22:22 Dose: 5,000 units Cefepime HCl (Maxipime Iv 1 Gm Premix) 1 gm in 50 mls @ 100 mls/hr IVPB Q12H [facility] Last Admin: 05/24/17 23:58 Dose: 100 mls/hr Levetiracetam (Keppra) 500 mg PO BID [facility] Last Admin: 05/24/17 17:00 Dose: Not Given Metoclopramide HCl (Reglan) 10 mg IVP DAILY [facility] Last Admin: 05/24/17 11:00 Dose: 10 mg Metoprolol Tartrate (Lopressor) 5 mg IVP Q4H PRN PRN Reason: Systolic Blood Pressure Last Admin: 05/25/17 07:54 Dose: 5 mg Multivitamins (Hexavitamin) 1 tab PO DAILY [facility] Last Admin: 05/24/17 12:04 Dose: 1 tab Pantoprazole Sodium (Protonix Inj) 40 mg IVP DAILY [facility] Last Admin: 05/24/17 11:00 Dose: 40 mg Quetiapine Fumarate (Seroquel) 200 mg PO BID [facility] Last Admin: 05/24/17 19:09 Dose: Not Given - Labs Labs: 05/25/17 06:24 05/25/17 06:23 PT 14.0 SECONDS (9.7-12.2) H 04/25/17 06:25 INR 1.2 04/25/17 06:25 APTT 32 SECONDS (21-34) 04/25/17 06:25 - Constitutional Appears: No Acute Distress, Chronically Ill - Eye Exam Eye Exam: PERRL - ENT Exam ENT Exam: Mucous Membranes Dry - Respiratory Exam Respiratory Exam: Rales. absent: Clear to Ausculation Bilateral, Rhonchi, Wheezes Additional comments: trach collar - Cardiovascular Exam Cardiovascular Exam: RRR, +S1, +S2 - GI/Abdominal Exam GI & Abdominal Exam: Soft, Normal Bowel Sounds. absent: Distended, Firm, Guarding, Rigid, Tenderness, Organomegaly Additional comments: RLQ ostomy patent, bilious output to ostomy bag; PEJ in place, TF running - Extremities Exam Extremities Exam: Normal Inspection. 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 and boby-en-Y feeding jejunostomy -SMA syndrome s/p boby-en-y gastrojejunostomy and boby-en-Y feeding jejunostomy with interval removal of feeding jejunostomy tubing and insertion of PEJ on 05/23 -Schizophrenia, non-verbal Plan: -Continue to advance TF to goal; recommend re-evaluation by nutrition service for feeding goals -As long as patient does not have pronounced TF output to ostomy bag or vomiting , continue to provide continuous TFs -Will adjust PEJ as needed <Dov Meade - Last Filed: 05/25/17 15:21> Objective - Vital Signs/Intake and Output Vital Signs (last 24 hours): Temp Pulse Resp BP Pulse Ox 99 F 143 H 21 95/55 L 100 05/25/17 11:57 05/25/17 15:00 05/25/17 15:00 05/25/17 14:38 05/25/17 15:00 Intake and Output: 05/25/17 05/25/17 06:59 18:59 Intake Total 430 520 Output Total 300 1220 Balance 130 -700 - Medications Medications: Current Medications Acetaminophen (Tylenol 650mg/20.3ml Solution Ud) 650 mg PO Q4 PRN PRN Reason: Temperature Last Admin: 05/24/17 13:27 Dose: 650 mg Ascorbic Acid (Vitamin C 500 Mg Tab) 500 mg PO DAILY [facility] Last Admin: 05/25/17 10:06 Dose: 500 mg Diltiazem HCl (Cardizem) 60 mg PO TID [facility] Last Admin: 05/25/17 14:54 Dose: Not Given Ergocalciferol (Drisdol 50,000 Intl Units Cap) 1 cap PO QWK [facility] Last Admin: 05/19/17 11:10 Dose: 1 cap Heparin Sodium (Porcine) (Heparin) 5,000 units SC Q12 [facility] Last Admin: 05/25/17 10:06 Dose: 5,000 units Cefepime HCl (Maxipime Iv 1 Gm Premix) 1 gm in 50 mls @ 100 mls/hr IVPB Q12H [facility] Last Admin: 05/25/17 11:31 Dose: 100 mls/hr Levetiracetam (Keppra) 500 mg PO BID [facility] Last Admin: 05/25/17 10:06 Dose: 500 mg Metoclopramide HCl (Reglan) 10 mg IVP DAILY [facility] Last Admin: 05/25/17 10:05 Dose: 10 mg Metoprolol Tartrate (Lopressor) 5 mg IVP Q4H PRN PRN Reason: Systolic Blood Pressure Last Admin: 05/25/17 07:54 Dose: 5 mg Multivitamins (Hexavitamin) 1 tab PO DAILY [facility] Last Admin: 05/25/17 10:06 Dose: 1 tab Pantoprazole Sodium (Protonix Inj) 40 mg IVP DAILY [facility] Last Admin: 05/25/17 10:06 Dose: 40 mg Quetiapine Fumarate (Seroquel) 200 mg PO BID [facility] Last Admin: 05/25/17 10:06 Dose: 200 mg - Labs Labs: 05/25/17 06:24 05/25/17 06:23 PT 14.0 SECONDS (9.7-12.2) H 04/25/17 06:25 INR 1.2 04/25/17 06:25 APTT 32 SECONDS (21-34) 04/25/17 06:25 Attending/Attestation - Attestation I have personally seen and examined this patient.: Yes I have fully participated in the care of the patient.: Yes I have reviewed all pertinent clinical information, including history, physical exam and plan: Yes Notes (Text): 05/25/17 15:17 36 year old female with originally admitted with SMA syndrome now s/p RNY gastro -jejunostomy and enterostomy with feeding tube which was not tolerated and she had persistent vomiting now s/p removal of j tube and placement of a new feeding PEJ. 1. SMA syndrome 2. Percuataneous endoscopic jejunostomy 3. s/p Gastro-jejunostomy Plan: -advance tube feedings to goal -DO NOT CHECK RESIDUALS, they will be completely unreliable and unpredictable in this setting -would only hold tube feeds for significant vomiting of either bile or feedings (not coughing up phlegm from her lungs) -keep the head of the bed at 30-45 degrees elevation and aspiration precautions -recommend the patient get up to bed as much as possible -monitor output from stoma, currently bilious fluid present -1 bm last night -adjusted pej to 4 cm marking -supportive care
[2017-05-25] MEDS: levETIRAcetam 100 mg/ml (5ml) Oral Syringe PO SCH ×2 (10:06→17:49)
[2017-05-25] MEDS: Multiple Vitamins Tab PO SCH (10:06)
[2017-05-25] MEDS: Cefepime IV 1 gm in Dextrose 1 GM/50 ML BAG IVPB SCH ×2 (11:31→23:34)
--- NOTE | 2017-05-25 12:49 | CP.CCUPN ---
<ConstantinoDavidn - Last Filed: 05/25/17 16:05> CCU Subjective - Physician Review Events Since Last Encounter (Free Text): 05/25/17 12:50 Per nursing patient had elevated heart rate overnight and was given IVP Lopressor. Subjective (Free Text): 05/24/17 11:29 Patient seen and examined at bedside. ROS unobtainable due to acuity of condition. Critical Care Time Spent (in minutes): 45 CCU Objective - Vital Signs / Intake & Output Vital Signs (Last 4 hours): Vital Signs Temp Pulse Resp BP Pulse Ox 05/25/17 11:57 99 F 100 05/25/17 11:00 149 H 24 99 05/25/17 10:39 156 H 26 H 106/48 L 97 05/25/17 10:00 146 H 12 100 05/25/17 09:38 146 H 31 H 103/61 100 05/25/17 09:00 144 H 30 H 100 Intake and Output (Last 8hrs): Intake & Output 05/24/17 05/25/17 05/25/17 22:59 06:59 14:59 Intake Total 370 285 160 Output Total 1450 1220 Balance -1080 285 -1060 Intake: Intake, IV Amount 225 50 0 Left PICC Proximal Port 225 50 0 Tube Feeding 145 235 160 Output: Gastric Amount 370 Stomach 370 Drainage 200 jejunostomy 200 Urine 1250 850 Urine, Voided 1250 850 Other: # Bowel Movements 0 - Physical Exam Head: Positive for: Atraumatic, Normocephalic. Negative for: Tenderness Pupils: Positive for: PERRL Extroacular Muscles: Positive for: EOMI Mouth: Positive for: Moist Mucous Membranes. Negative for: Dry, Drooling Nose (External): Positive for: Other (NGT in place) Nose (Internal): Positive for: Normal Inspection, Moist Neck: Positive for: Other (trach). Negative for: JVD, Lymphadenopathy Respiratory/Chest: Positive for: Clear to Auscultation. Negative for: Respiratory Distress, Accessory Muscle Use Cardiovascular: Positive for: Regular Rate and Rhythm, Normal S1, S2 Abdomen: Positive for: Tenderness (mild tenderness of palpation. patient continues to move her arms towards hands on palpation), Normal Bowel Sounds. Negative for: Distention, Peritoneal Signs, Guarding Upper Extremity: Positive for: Normal Inspection, Normal ROM, Capillary Refill < 2s. Negative for: Edema Lower Extremity: Positive for: Normal Inspection. Negative for: Edema Neurological: Positive for: CN II-XII Intact Skin: Positive for: Warm, Pale Psychiatric: Positive for: Alert - Medications Active Medications: Active Medications Generic Name Dose Route Start Last Admin Trade Name Freq PRN Reason Stop Dose Admin Acetaminophen 650 mg 04/28/17 20:11 05/24/17 13:27 Tylenol 650mg/20.3ml Solution Ud PO 650 mg Q4 PRN Administration Temperature Ascorbic Acid 500 mg 05/12/17 11:15 05/25/17 10:06 Vitamin C 500 Mg Tab PO 500 mg DAILY [facility] Administration Diltiazem HCl 60 mg 05/23/17 14:00 05/25/17 10:06 Cardizem PO 60 mg TID [facility] Administration Ergocalciferol 1 cap 05/12/17 11:15 05/19/17 11:10 Drisdol 50,000 Intl Units Cap PO 1 cap QWK [facility] Administration Heparin Sodium (Porcine) 5,000 units 05/23/17 22:00 05/25/17 10:06 Heparin SC 5,000 units Q12 [facility] Administration Cefepime HCl 1 gm in 50 mls @ 100 mls/hr 05/24/17 12:00 05/25/17 11:31 Maxipime Iv 1 Gm Premix IVPB 100 mls/hr Q12H [facility] Administration Levetiracetam 500 mg 05/20/17 11:15 05/25/17 10:06 Keppra PO 500 mg BID [facility] Administration Metoclopramide HCl 10 mg 05/12/17 11:00 05/25/17 10:05 Reglan IVP 10 mg DAILY [facility] Administration Metoprolol Tartrate 5 mg 05/20/17 19:40 05/25/17 07:54 Lopressor IVP 5 mg Q4H PRN Administration Systolic Blood Pressure Multivitamins 1 tab 05/17/17 10:00 05/25/17 10:06 Hexavitamin PO 1 tab DAILY [facility] Administration Pantoprazole Sodium 40 mg 05/20/17 11:00 05/25/17 10:06 Protonix Inj IVP 40 mg DAILY [facility] Administration Quetiapine Fumarate 200 mg 05/18/17 11:45 05/25/17 10:06 Seroquel PO 200 mg BID [facility] Administration - Patient Studies Lab Studies: Microbiology Studies 04/25/17 12:02 Blood Fungal Culture - Final Other: Please Indicate 05/22/17 18:20 Gram Stain - Final Trachasp Sputum Culture - Final Pseudomonas Aeruginosa Lab Studies 05/25/17 05/25/17 05/25/17 Range/Units 11:32 06:24 06:23 WBC 18.6 H (4.8-10.8) K/uL RBC 2.69 L (3.80-5.20) Mil/uL Hgb 7.6 L (11.0-16.0) g/dL Hct 22.8 L (34.0-47.0) % MCV 84.8 (81.0-99.0) fL MCH 28.4 (27.0-31.0) pg MCHC 33.5 (33.0-37.0) g/dL RDW 14.9 H (11.5-14.5) % Plt Count 339 (130-400) K/uL MPV 9.5 (7.2-11.7) fL Neut % (Auto) 75.6 H (50.0-75.0) % Lymph % (Auto) 12.3 L (20.0-40.0) % [place] % (Auto) 9.5 (0.0-10.0) % Eos % (Auto) 1.9 (0.0-4.0) % Baso % (Auto) 0.7 (0.0-2.0) % Neut # (Auto) 14.0 H (1.8-7.0) K/uL Lymph # (Auto) 2.3 (1.0-4.3) K/uL [place] # (Auto) 1.8 H (0.0-0.8) K/uL Eos # (Auto) 0.4 (0.0-0.7) K/uL Baso # (Auto) 0.1 (0.0-0.2) K/uL Sodium 134 (132-148) mmol/L Potassium 3.4 L (3.6-5.2) mmol/L Chloride 97 L (98-107) mmol/L Carbon Dioxide 27 (22-30) mmol/L Anion Gap 13 (10-20) BUN 6 L (7-17) mg/dL Creatinine 0.5 L (0.7-1.2) mg/dL Est GFR ( Amer) > 60 Est GFR (Non-Af Amer) > 60 POC Glucose (mg/dL) 131 H (65-110) mg/dL Random Glucose 110 H (65-105) mg/dL Calcium 8.8 (8.6-10.4) mg/dl Total Bilirubin 0.5 (0.2-1.3) mg/dL AST 27 (14-36) U/L ALT 34 (9-52) U/L Alkaline Phosphatase 159 H (38-126) U/L Total Protein 6.6 (6.3-8.3) g/dL Albumin 3.0 L (3.5-5.0) g/dL Globulin 3.6 (2.2-3.9) gm/dL Albumin/Globulin Ratio 0.8 L (1.0-2.1) 05/25/17 05/24/17 05/24/17 Range/Units 06:17 23:59 18:11 WBC (4.8-10.8) K/uL RBC (3.80-5.20) Mil/uL Hgb (11.0-16.0) g/dL Hct (34.0-47.0) % MCV (81.0-99.0) fL MCH (27.0-31.0) pg MCHC (33.0-37.0) g/dL RDW (11.5-14.5) % Plt Count (130-400) K/uL MPV (7.2-11.7) fL Neut % (Auto) (50.0-75.0) % Lymph % (Auto) (20.0-40.0) % [place] % (Auto) (0.0-10.0) % Eos % (Auto) (0.0-4.0) % Baso % (Auto) (0.0-2.0) % Neut # (Auto) (1.8-7.0) K/uL Lymph # (Auto) (1.0-4.3) K/uL [place] # (Auto) (0.0-0.8) K/uL Eos # (Auto) (0.0-0.7) K/uL Baso # (Auto) (0.0-0.2) K/uL Sodium (132-148) mmol/L Potassium (3.6-5.2) mmol/L Chloride (98-107) mmol/L Carbon Dioxide (22-30) mmol/L Anion Gap (10-20) BUN (7-17) mg/dL Creatinine (0.7-1.2) mg/dL Est GFR ( Amer) Est GFR (Non-Af Amer) POC Glucose (mg/dL) 79 128 H 102 (65-110) mg/dL Random Glucose (65-105) mg/dL Calcium (8.6-10.4) mg/dl Total Bilirubin (0.2-1.3) mg/dL AST (14-36) U/L ALT (9-52) U/L Alkaline Phosphatase (38-126) U/L Total Protein (6.3-8.3) g/dL Albumin (3.5-5.0) g/dL Globulin (2.2-3.9) gm/dL Albumin/Globulin Ratio (1.0-2.1) Laboratory Results - last 24 hr 05/24/17 05/24/17 05/25/17 18:11 23:59 06:17 WBC RBC Hgb Hct MCV MCH MCHC RDW Plt Count MPV Neut % (Auto) Lymph % (Auto) [place] % (Auto) Eos % (Auto) Baso % (Auto) Neut # (Auto) Lymph # (Auto) [place] # (Auto) Eos # (Auto) Baso # (Auto) Sodium Potassium Chloride Carbon Dioxide Anion Gap BUN Creatinine Est GFR ( Amer) Est GFR (Non-Af Amer) POC Glucose (mg/dL) 102 128 H 79 Random Glucose Calcium Total Bilirubin AST ALT Alkaline Phosphatase Total Protein Albumin Globulin Albumin/Globulin Ratio 05/25/17 05/25/17 05/25/17 06:23 06:24 11:32 WBC 18.6 H RBC 2.69 L Hgb 7.6 L Hct 22.8 L MCV 84.8 MCH 28.4 MCHC 33.5 RDW 14.9 H Plt Count 339 MPV 9.5 Neut % (Auto) 75.6 H Lymph % (Auto) 12.3 L [place] % (Auto) 9.5 Eos % (Auto) 1.9 Baso % (Auto) 0.7 Neut # (Auto) 14.0 H Lymph # (Auto) 2.3 [place] # (Auto) 1.8 H Eos # (Auto) 0.4 Baso # (Auto) 0.1 Sodium 134 Potassium 3.4 L Chloride 97 L Carbon Dioxide 27 Anion Gap 13 BUN 6 L Creatinine 0.5 L Est GFR ( Amer) > 60 Est GFR (Non-Af Amer) > 60 POC Glucose (mg/dL) 131 H Random Glucose 110 H Calcium 8.8 Total Bilirubin 0.5 AST 27 ALT 34 Alkaline Phosphatase 159 H Total Protein 6.6 Albumin 3.0 L Globulin 3.6 Albumin/Globulin Ratio 0.8 L Fingerstick Blood Sugar Results: 131 Assessment/Plan - Assessment and Plan (Free Text) Assessment: 36 year old female with a past medical history of cognitive delay, schizophrenia , depression who came in for acute pancreatits and sepsis. Plan: Psych: Schizophrenia - Please continue scheduled Seroquel 200mg PO BID - measure QTc and call if >500 Neuro: Seizure disorder - Please continue Keppra 500mg PO BID; missing doses can prompt breakthrough seizures, which can worsen clinical ICU course and directly result in poorer outcomes than anticipated - Metoclopramide 10mg IVP qd Cards: Tachycardia (persistent), HTN - Cardizem 60mg TID - metoprolol 5mg IV q4h PRN GI: Biliary emesis, constipation - continue tube feeds to 35cc/hr as tolerating - EGD with placement jejunostomy tube on 05/23 successful; continue per surgery recs - Dulcolax 10mg [place] qd PRN Pulm: PNA - repeat CXR - tracheal aspiration culture grew Pseudomonas aeruginosa: sensitive to cefepime , ciprofloxacin, gentimycin, merepenem, and zosyn - Cefepime IV 1g @ 100ml/hr IVPB q12h - Trach collar at 40% FiO2, satting 97% - Recheck procalcitonin levels PPx: DVT, PUD - perma-cath removal c/s surgery - OOB to chair - Drisdol 50,000 IU 1cap PO qwk - VitC 500mg tab PO qd - Multivitamin: 5ml PO qd - Heparin 5000 U SC q8 - Protonix 40mg IVP qd <Jose Hernandez - Last Filed: 05/25/17 18:02> CCU Subjective - Physician Review Critical Care Time Spent (in minutes): 30 CCU Objective - Vital Signs / Intake & Output Vital Signs (Last 4 hours): Vital Signs Pulse Resp BP Pulse Ox 05/25/17 15:00 143 H 21 100 05/25/17 14:38 146 H 23 95/55 L 99 05/25/17 14:02 146 H 24 87/60 L 99 Intake and Output (Last 8hrs): Intake & Output 05/25/17 05/25/17 05/25/17 06:59 14:59 22:59 Intake Total 285 485 35 Output Total 1220 Balance 285 -735 35 Intake: Intake, IV Amount 50 150 Left PICC Proximal Port 50 150 Tube Feeding 235 235 35 Other 100 Output: Gastric Amount 370 Stomach 370 Urine 850 Urine, Voided 850 Other: # Bowel Movements 0 0 - Medications Active Medications: Active Medications Generic Name Dose Route Start Last Admin Trade Name Freq PRN Reason Stop Dose Admin Acetaminophen 650 mg 04/28/17 20:11 05/24/17 13:27 Tylenol 650mg/20.3ml Solution Ud PO 650 mg Q4 PRN Administration Temperature Ascorbic Acid 500 mg 05/12/17 11:15 05/25/17 10:06 Vitamin C 500 Mg Tab PO 500 mg DAILY [facility] Administration Diltiazem HCl 60 mg 05/23/17 14:00 05/25/17 17:49 Cardizem PO 60 mg TID [facility] Administration Ergocalciferol 1 cap 05/12/17 11:15 05/19/17 11:10 Drisdol 50,000 Intl Units Cap PO 1 cap QWK [facility] Administration Heparin Sodium (Porcine) 5,000 units 05/23/17 22:00 05/25/17 10:06 Heparin SC 5,000 units Q12 [facility] Administration Cefepime HCl 1 gm in 50 mls @ 100 mls/hr 05/24/17 12:00 05/25/17 11:31 Maxipime Iv 1 Gm Premix IVPB 100 mls/hr Q12H [facility] Administration Levetiracetam 500 mg 05/20/17 11:15 05/25/17 17:49 Keppra PO 500 mg BID [facility] Administration Metoclopramide HCl 10 mg 05/12/17 11:00 05/25/17 10:05 Reglan IVP 10 mg DAILY [facility] Administration Metoprolol Tartrate 5 mg 05/20/17 19:40 05/25/17 07:54 Lopressor IVP 5 mg Q4H PRN Administration Systolic Blood Pressure Multivitamins 1 tab 05/17/17 10:00 05/25/17 10:06 Hexavitamin PO 1 tab DAILY [facility] Administration Pantoprazole Sodium 40 mg 05/20/17 11:00 05/25/17 10:06 Protonix Inj IVP 40 mg DAILY [facility] Administration Quetiapine Fumarate 200 mg 05/18/17 11:45 05/25/17 17:49 Seroquel PO 200 mg BID [facility] Administration - Patient Studies Lab Studies: Lab Studies 05/25/17 05/25/17 05/25/17 Range/Units 17:42 11:40 11:32 WBC (4.8-10.8) K/uL RBC (3.80-5.20) Mil/uL Hgb (11.0-16.0) g/dL Hct (34.0-47.0) % MCV (81.0-99.0) fL MCH (27.0-31.0) pg MCHC (33.0-37.0) g/dL RDW (11.5-14.5) % Plt Count (130-400) K/uL MPV (7.2-11.7) fL Neut % (Auto) (50.0-75.0) % Lymph % (Auto) (20.0-40.0) % [place] % (Auto) (0.0-10.0) % Eos % (Auto) (0.0-4.0) % Baso % (Auto) (0.0-2.0) % Neut # (Auto) (1.8-7.0) K/uL Lymph # (Auto) (1.0-4.3) K/uL [place] # (Auto) (0.0-0.8) K/uL Eos # (Auto) (0.0-0.7) K/uL Baso # (Auto) (0.0-0.2) K/uL Sodium (132-148) mmol/L Potassium (3.6-5.2) mmol/L Chloride (98-107) mmol/L Carbon Dioxide (22-30) mmol/L Anion Gap (10-20) BUN (7-17) mg/dL Creatinine (0.7-1.2) mg/dL Est GFR ( Amer) Est GFR (Non-Af Amer) POC Glucose (mg/dL) 101 131 H (65-110) mg/dL Random Glucose (65-105) mg/dL Calcium (8.6-10.4) mg/dl Total Bilirubin (0.2-1.3) mg/dL AST (14-36) U/L ALT (9-52) U/L Alkaline Phosphatase (38-126) U/L Total Protein (6.3-8.3) g/dL Albumin (3.5-5.0) g/dL Globulin (2.2-3.9) gm/dL Albumin/Globulin Ratio (1.0-2.1) Procalcitonin 0.32 (0.19-0.49) NG/ML 05/25/17 05/25/17 05/25/17 Range/Units 06:24 06:23 06:17 WBC 18.6 H (4.8-10.8) K/uL RBC 2.69 L (3.80-5.20) Mil/uL Hgb 7.6 L (11.0-16.0) g/dL Hct 22.8 L (34.0-47.0) % MCV 84.8 (81.0-99.0) fL MCH 28.4 (27.0-31.0) pg MCHC 33.5 (33.0-37.0) g/dL RDW 14.9 H (11.5-14.5) % Plt Count 339 (130-400) K/uL MPV 9.5 (7.2-11.7) fL Neut % (Auto) 75.6 H (50.0-75.0) % Lymph % (Auto) 12.3 L (20.0-40.0) % [place] % (Auto) 9.5 (0.0-10.0) % Eos % (Auto) 1.9 (0.0-4.0) % Baso % (Auto) 0.7 (0.0-2.0) % Neut # (Auto) 14.0 H (1.8-7.0) K/uL Lymph # (Auto) 2.3 (1.0-4.3) K/uL [place] # (Auto) 1.8 H (0.0-0.8) K/uL Eos # (Auto) 0.4 (0.0-0.7) K/uL Baso # (Auto) 0.1 (0.0-0.2) K/uL Sodium 134 (132-148) mmol/L Potassium 3.4 L (3.6-5.2) mmol/L Chloride 97 L (98-107) mmol/L Carbon Dioxide 27 (22-30) mmol/L Anion Gap 13 (10-20) BUN 6 L (7-17) mg/dL Creatinine 0.5 L (0.7-1.2) mg/dL Est GFR ( Amer) > 60 Est GFR (Non-Af Amer) > 60 POC Glucose (mg/dL) 79 (65-110) mg/dL Random Glucose 110 H (65-105) mg/dL Calcium 8.8 (8.6-10.4) mg/dl Total Bilirubin 0.5 (0.2-1.3) mg/dL AST 27 (14-36) U/L ALT 34 (9-52) U/L Alkaline Phosphatase 159 H (38-126) U/L Total Protein 6.6 (6.3-8.3) g/dL Albumin 3.0 L (3.5-5.0) g/dL Globulin 3.6 (2.2-3.9) gm/dL Albumin/Globulin Ratio 0.8 L (1.0-2.1) Procalcitonin (0.19-0.49) NG/ML 05/24/17 05/24/17 Range/Units 23:59 18:11 WBC (4.8-10.8) K/uL RBC (3.80-5.20) Mil/uL Hgb (11.0-16.0) g/dL Hct (34.0-47.0) % MCV (81.0-99.0) fL MCH (27.0-31.0) pg MCHC (33.0-37.0) g/dL RDW (11.5-14.5) % Plt Count (130-400) K/uL MPV (7.2-11.7) fL Neut % (Auto) (50.0-75.0) % Lymph % (Auto) (20.0-40.0) % [place] % (Auto) (0.0-10.0) % Eos % (Auto) (0.0-4.0) % Baso % (Auto) (0.0-2.0) % Neut # (Auto) (1.8-7.0) K/uL Lymph # (Auto) (1.0-4.3) K/uL [place] # (Auto) (0.0-0.8) K/uL Eos # (Auto) (0.0-0.7) K/uL Baso # (Auto) (0.0-0.2) K/uL Sodium (132-148) mmol/L Potassium (3.6-5.2) mmol/L Chloride (98-107) mmol/L Carbon Dioxide (22-30) mmol/L Anion Gap (10-20) BUN (7-17) mg/dL Creatinine (0.7-1.2) mg/dL Est GFR ( Amer) Est GFR (Non-Af Amer) POC Glucose (mg/dL) 128 H 102 (65-110) mg/dL Random Glucose (65-105) mg/dL Calcium (8.6-10.4) mg/dl Total Bilirubin (0.2-1.3) mg/dL AST (14-36) U/L ALT (9-52) U/L Alkaline Phosphatase (38-126) U/L Total Protein (6.3-8.3) g/dL Albumin (3.5-5.0) g/dL Globulin (2.2-3.9) gm/dL Albumin/Globulin Ratio (1.0-2.1) Procalcitonin (0.19-0.49) NG/ML Laboratory Results - last 24 hr 05/24/17 05/24/17 05/25/17 18:11 23:59 06:17 WBC RBC Hgb Hct MCV MCH MCHC RDW Plt Count MPV Neut % (Auto) Lymph % (Auto) [place] % (Auto) Eos % (Auto) Baso % (Auto) Neut # (Auto) Lymph # (Auto) [place] # (Auto) Eos # (Auto) Baso # (Auto) Sodium Potassium Chloride Carbon Dioxide Anion Gap BUN Creatinine Est GFR ( Amer) Est GFR (Non-Af Amer) POC Glucose (mg/dL) 102 128 H 79 Random Glucose Calcium Total Bilirubin AST ALT Alkaline Phosphatase Total Protein Albumin Globulin Albumin/Globulin Ratio Procalcitonin 05/25/17 05/25/17 05/25/17 06:23 06:24 11:32 WBC 18.6 H RBC 2.69 L Hgb 7.6 L Hct 22.8 L MCV 84.8 MCH 28.4 MCHC 33.5 RDW 14.9 H Plt Count 339 MPV 9.5 Neut % (Auto) 75.6 H Lymph % (Auto) 12.3 L [place] % (Auto) 9.5 Eos % (Auto) 1.9 Baso % (Auto) 0.7 Neut # (Auto) 14.0 H Lymph # (Auto) 2.3 [place] # (Auto) 1.8 H Eos # (Auto) 0.4 Baso # (Auto) 0.1 Sodium 134 Potassium 3.4 L Chloride 97 L Carbon Dioxide 27 Anion Gap 13 BUN 6 L Creatinine 0.5 L Est GFR ( Amer) > 60 Est GFR (Non-Af Amer) > 60 POC Glucose (mg/dL) 131 H Random Glucose 110 H Calcium 8.8 Total Bilirubin 0.5 AST 27 ALT 34 Alkaline Phosphatase 159 H Total Protein 6.6 Albumin 3.0 L Globulin 3.6 Albumin/Globulin Ratio 0.8 L Procalcitonin 05/25/17 05/25/17 11:40 17:42 WBC RBC Hgb Hct MCV MCH MCHC RDW Plt Count MPV Neut % (Auto) Lymph % (Auto) [place] % (Auto) Eos % (Auto) Baso % (Auto) Neut # (Auto) Lymph # (Auto) [place] # (Auto) Eos # (Auto) Baso # (Auto) Sodium Potassium Chloride Carbon Dioxide Anion Gap BUN Creatinine Est GFR ( Amer) Est GFR (Non-Af Amer) POC Glucose (mg/dL) 101 Random Glucose Calcium Total Bilirubin AST ALT Alkaline Phosphatase Total Protein Albumin Globulin Albumin/Globulin Ratio Procalcitonin 0.32 Assessment/Plan (1) SMAS (superior mesenteric artery syndrome) Current Visit: Yes Status: Acute Comment: (2) Acute renal failure Current Visit: Yes Status: Acute (3) Mental retardation Current Visit: No Status: Acute Attending/Attestation - Attestation I have personally seen and examined this patient.: Yes I have fully participated in the care of the patient.: Yes I have reviewed all pertinent clinical information: Yes Notes (Text): 05/25/17 18:01 Patient seen and examined in the intensive care unit. Continue feeding Continue antibiotics Follow-up white count and culture and sensitivity
--- NOTE | 2017-05-25 15:57 | CP.PCM.PN ---
Subjective - Date & Time of Evaluation Date of Evaluation: 05/25/17 Time of Evaluation: 09:45 - Subjective Subjective: General surgery progress note for Dr. Bishnu Rothman, PGY-1 Pt S & E at bedside this AM. Pt resting comfortably in bed. No acute events over night per nursing. Tube feeds via PEJ tube at 20cc/hr. Had some residuals, so was decreased from 30cc/ hr. Objective - Vital Signs/Intake and Output Vital Signs (last 24 hours): Temp Pulse Resp BP Pulse Ox 99 F 143 H 21 95/55 L 100 05/25/17 11:57 05/25/17 15:00 05/25/17 15:00 05/25/17 14:38 05/25/17 15:00 Intake and Output: 05/25/17 05/25/17 06:59 18:59 Intake Total 430 520 Output Total 300 1220 Balance 130 -700 - Medications Medications: Current Medications Acetaminophen (Tylenol 650mg/20.3ml Solution Ud) 650 mg PO Q4 PRN PRN Reason: Temperature Last Admin: 05/24/17 13:27 Dose: 650 mg Ascorbic Acid (Vitamin C 500 Mg Tab) 500 mg PO DAILY [facility] Last Admin: 05/25/17 10:06 Dose: 500 mg Diltiazem HCl (Cardizem) 60 mg PO TID [facility] Last Admin: 05/25/17 14:54 Dose: Not Given Ergocalciferol (Drisdol 50,000 Intl Units Cap) 1 cap PO QWK [facility] Last Admin: 05/19/17 11:10 Dose: 1 cap Heparin Sodium (Porcine) (Heparin) 5,000 units SC Q12 [facility] Last Admin: 05/25/17 10:06 Dose: 5,000 units Cefepime HCl (Maxipime Iv 1 Gm Premix) 1 gm in 50 mls @ 100 mls/hr IVPB Q12H [facility] Last Admin: 05/25/17 11:31 Dose: 100 mls/hr Levetiracetam (Keppra) 500 mg PO BID [facility] Last Admin: 05/25/17 10:06 Dose: 500 mg Metoclopramide HCl (Reglan) 10 mg IVP DAILY [facility] Last Admin: 05/25/17 10:05 Dose: 10 mg Metoprolol Tartrate (Lopressor) 5 mg IVP Q4H PRN PRN Reason: Systolic Blood Pressure Last Admin: 05/25/17 07:54 Dose: 5 mg Multivitamins (Hexavitamin) 1 tab PO DAILY [facility] Last Admin: 05/25/17 10:06 Dose: 1 tab Pantoprazole Sodium (Protonix Inj) 40 mg IVP DAILY [facility] Last Admin: 05/25/17 10:06 Dose: 40 mg Quetiapine Fumarate (Seroquel) 200 mg PO BID [facility] Last Admin: 05/25/17 10:06 Dose: 200 mg - Labs Labs: 05/25/17 06:24 05/25/17 06:23 PT 14.0 SECONDS (9.7-12.2) H 04/25/17 06:25 INR 1.2 04/25/17 06:25 APTT 32 SECONDS (21-34) 04/25/17 06:25 - Constitutional Appears: Non-toxic, No Acute Distress - Head Exam Head Exam: ATRAUMATIC, NORMAL INSPECTION, NORMOCEPHALIC - Eye Exam Eye Exam: EOMI, Normal appearance - ENT Exam ENT Exam: Mucous Membranes Moist, Normal Exam - Neck Exam Neck Exam: Full ROM, Normal Inspection - Respiratory Exam Respiratory Exam: NORMAL BREATHING PATTERN - Cardiovascular Exam Cardiovascular Exam: Tachycardia, +S1, +S2 - GI/Abdominal Exam GI & Abdominal Exam: Soft. absent: Distended, Firm, Guarding, Tenderness Additional comments: PEJ tube in place, ostomy with leaky bag and scant amount of light brown output - Extremities Exam Extremities Exam: Normal Inspection - Neurological Exam Neurological Exam: Awake Additional comments: Non verbal - Psychiatric Exam Additional comments: Non verbal at baseline - Skin Skin Exam: Dry, Intact, Normal Color, Warm Assessment and Plan - Assessment and Plan (Free Text) Assessment: 36F POD#37 s/p gastrojejunostomy w/bypass and feeding jejunostomy, s/p PEJ tube placement by GI Plan: Trach suction Q1H PEJ tube feeds to goal as determined by dietary Further mgmt as per primary and ICU teams Will follow peripheral Will ISIDRO attending Lorna, PGY-1
[2017-05-25] MEDS ORDERED: Lidocaine 2% Inj (20ml) IV ONE (17:38)
[2017-05-25] MEDS: Acetaminophen 650mg/20.3ml solution UD PO PRN (21:46)
[2017-05-26 06:23] LABS: BASO # 0.1 K/uL (0.0-0.2); BASO % 0.6 % (0.0-2.0); EOS # 0.6 K/uL (0.0-0.7); HEMOGLOBIN 7.3 g/dL (11.0-16.0); LYMPH # 2.3 K/uL (1.0-4.3); LYMPH % 14.1 % (20.0-40.0); MEAN CELL VOLUME 85.4 fL (81.0-99.0); MEAN CORPUSCULAR HGB CONC 32.8 g/dL (33.0-37.0); MEAN PLATELET VOLUME 9.6 fL (7.2-11.7); MONO % 12.3 % (0.0-10.0); RBC 2.6 Mil/uL (3.80-5.20); RED CELL DISTRIBUTION WIDTH 15.1 % (11.5-14.5)
[2017-05-26 06:38] LABS: ALB/GLOB RATIO 0.8 (1.0-2.1); ALBUMIN 2.9 g/dL (3.5-5.0); ALT/SGPT 28 U/L (9-52); AST/SGOT 22 U/L (14-36); BLOOD UREA NITROGEN 8 mg/dL (7-17); CALCIUM 8.6 mg/dl (8.6-10.4); GFR AFRICAN-AMERICAN > 60; GFR NON-AFRICAN AMERICAN > 60
[2017-05-26] MEDS: Ergocalciferol 50,000 Intl Units Cap PO SCH (10:15)
[2017-05-26] MEDS: levETIRAcetam 100 mg/ml (5ml) Oral Syringe PO SCH ×2 (10:16→18:34)
[2017-05-26] MEDS: Multiple Vitamins Tab PO SCH (10:16)
[2017-05-26] MEDS: Cefepime IV 1 gm in Dextrose 1 GM/50 ML BAG IVPB SCH (13:17)
--- NOTE | 2017-05-26 17:46 | CP.CCUPN ---
<Ponce Meeks - Last Filed: 05/26/17 18:35> CCU Subjective - Physician Review Events Since Last Encounter (Free Text): 05/26/17 17:45 Per nursing unable to give Lopressor due to low blood pressure. Per nursing no acute events occurred overnight. Subjective (Free Text): 05/24/17 11:29 Patient seen and examined at bedside. ROS unobtainable due to acuity of condition. CCU Objective - Vital Signs / Intake & Output Vital Signs (Last 4 hours): Vital Signs Pulse Resp BP Pulse Ox 05/26/17 15:38 135 H 13 103/61 100 05/26/17 15:00 130 H 19 100 05/26/17 14:38 140 H 24 98/55 L 100 05/26/17 14:00 143 H 25 H 100 Intake and Output (Last 8hrs): Intake & Output 05/26/17 05/26/17 05/26/17 06:59 14:59 22:59 Intake Total 255 380 35 Output Total 350 100 Balance -95 280 35 Weight 111 lb 15.917 oz Intake: Intake, IV Amount 10 100 Left PICC Proximal Port 100 Left Upper arm 10 Tube Feeding 245 280 35 Output: Drainage 250 100 ileostomy 250 100 Urine 100 Urine, Voided 100 Other: # Bowel Movements 0 - Physical Exam Head: Positive for: Atraumatic, Normocephalic. Negative for: Tenderness Pupils: Positive for: PERRL Extroacular Muscles: Positive for: EOMI Mouth: Positive for: Moist Mucous Membranes. Negative for: Dry, Drooling Nose (External): Positive for: Other (NGT in place) Nose (Internal): Positive for: Normal Inspection, Moist Neck: Positive for: Other (trach). Negative for: JVD, Lymphadenopathy Respiratory/Chest: Positive for: Clear to Auscultation. Negative for: Respiratory Distress, Accessory Muscle Use Cardiovascular: Positive for: Regular Rate and Rhythm, Normal S1, S2 Abdomen: Positive for: Tenderness (mild tenderness of palpation. patient continues to move her arms towards hands on palpation), Normal Bowel Sounds. Negative for: Distention, Peritoneal Signs, Guarding Upper Extremity: Positive for: Normal Inspection, Normal ROM, Capillary Refill < 2s. Negative for: Edema Lower Extremity: Positive for: Normal Inspection. Negative for: Edema Neurological: Positive for: CN II-XII Intact Skin: Positive for: Warm, Pale Psychiatric: Positive for: Alert - Medications Active Medications: Active Medications Generic Name Dose Route Start Last Admin Trade Name Freq PRN Reason Stop Dose Admin Acetaminophen 650 mg 04/28/17 20:11 05/25/17 21:46 Tylenol 650mg/20.3ml Solution Ud PO 650 mg Q4 PRN Administration Temperature Ascorbic Acid 500 mg 05/12/17 11:15 05/26/17 10:17 Vitamin C 500 Mg Tab PO 500 mg DAILY [facility] Administration Diltiazem HCl 60 mg 05/23/17 14:00 05/26/17 15:45 Cardizem PO 60 mg TID [facility] Administration Ergocalciferol 1 cap 05/12/17 11:15 05/26/17 10:15 Drisdol 50,000 Intl Units Cap PO 1 cap QWK [facility] Administration Heparin Sodium (Porcine) 5,000 units 05/23/17 22:00 05/26/17 10:16 Heparin SC 5,000 units Q12 [facility] Administration Cefepime HCl 1 gm in 50 mls @ 100 mls/hr 05/24/17 12:00 05/26/17 13:17 Maxipime Iv 1 Gm Premix IVPB 100 mls/hr Q12H [facility] Administration Levetiracetam 500 mg 05/20/17 11:15 05/26/17 10:16 Keppra PO 500 mg BID [facility] Administration Metoclopramide HCl 10 mg 05/12/17 11:00 05/26/17 10:15 Reglan IVP 10 mg DAILY [facility] Administration Metoprolol Tartrate 5 mg 05/20/17 19:40 05/25/17 07:54 Lopressor IVP 5 mg Q4H PRN Administration Systolic Blood Pressure Multivitamins 1 tab 05/17/17 10:00 05/26/17 10:16 Hexavitamin PO 1 tab DAILY [facility] Administration Pantoprazole Sodium 40 mg 05/20/17 11:00 05/26/17 10:16 Protonix Inj IVP 40 mg DAILY [facility] Administration Quetiapine Fumarate 200 mg 05/18/17 11:45 05/26/17 10:17 Seroquel PO 200 mg BID [facility] Administration - Patient Studies Lab Studies: Lab Studies 05/26/17 05/26/17 05/26/17 Range/Units 11:22 06:18 06:17 WBC 16.0 H (4.8-10.8) K/uL RBC 2.60 L (3.80-5.20) Mil/uL Hgb 7.3 L (11.0-16.0) g/dL Hct 22.2 L (34.0-47.0) % MCV 85.4 (81.0-99.0) fL MCH 28.0 (27.0-31.0) pg MCHC 32.8 L (33.0-37.0) g/dL RDW 15.1 H (11.5-14.5) % Plt Count 336 (130-400) K/uL MPV 9.6 (7.2-11.7) fL Neut % (Auto) 69.0 (50.0-75.0) % Lymph % (Auto) 14.1 L (20.0-40.0) % [place] % (Auto) 12.3 H (0.0-10.0) % Eos % (Auto) 4.0 (0.0-4.0) % Baso % (Auto) 0.6 (0.0-2.0) % Neut # (Auto) 11.0 H (1.8-7.0) K/uL Lymph # (Auto) 2.3 (1.0-4.3) K/uL [place] # (Auto) 2.0 H (0.0-0.8) K/uL Eos # (Auto) 0.6 (0.0-0.7) K/uL Baso # (Auto) 0.1 (0.0-0.2) K/uL Sodium 134 (132-148) mmol/L Potassium 3.6 (3.6-5.2) mmol/L Chloride 100 (98-107) mmol/L Carbon Dioxide 25 (22-30) mmol/L Anion Gap 13 (10-20) BUN 8 (7-17) mg/dL Creatinine 0.5 L (0.7-1.2) mg/dL Est GFR ( Amer) > 60 Est GFR (Non-Af Amer) > 60 POC Glucose (mg/dL) 110 (65-110) mg/dL Random Glucose 97 (65-105) mg/dL Calcium 8.6 (8.6-10.4) mg/dl Total Bilirubin 0.3 (0.2-1.3) mg/dL AST 22 (14-36) U/L ALT 28 (9-52) U/L Alkaline Phosphatase 160 H (38-126) U/L Total Protein 6.4 (6.3-8.3) g/dL Albumin 2.9 L (3.5-5.0) g/dL Globulin 3.5 (2.2-3.9) gm/dL Albumin/Globulin Ratio 0.8 L (1.0-2.1) Levetiracetam mcg/mL 05/26/17 05/26/17 05/25/17 Range/Units 05:01 00:00 17:42 WBC (4.8-10.8) K/uL RBC (3.80-5.20) Mil/uL Hgb (11.0-16.0) g/dL Hct (34.0-47.0) % MCV (81.0-99.0) fL MCH (27.0-31.0) pg MCHC (33.0-37.0) g/dL RDW (11.5-14.5) % Plt Count (130-400) K/uL MPV (7.2-11.7) fL Neut % (Auto) (50.0-75.0) % Lymph % (Auto) (20.0-40.0) % [place] % (Auto) (0.0-10.0) % Eos % (Auto) (0.0-4.0) % Baso % (Auto) (0.0-2.0) % Neut # (Auto) (1.8-7.0) K/uL Lymph # (Auto) (1.0-4.3) K/uL [place] # (Auto) (0.0-0.8) K/uL Eos # (Auto) (0.0-0.7) K/uL Baso # (Auto) (0.0-0.2) K/uL Sodium (132-148) mmol/L Potassium (3.6-5.2) mmol/L Chloride (98-107) mmol/L Carbon Dioxide (22-30) mmol/L Anion Gap (10-20) BUN (7-17) mg/dL Creatinine (0.7-1.2) mg/dL Est GFR ( Amer) Est GFR (Non-Af Amer) POC Glucose (mg/dL) 112 H 100 101 (65-110) mg/dL Random Glucose (65-105) mg/dL Calcium (8.6-10.4) mg/dl Total Bilirubin (0.2-1.3) mg/dL AST (14-36) U/L ALT (9-52) U/L Alkaline Phosphatase (38-126) U/L Total Protein (6.3-8.3) g/dL Albumin (3.5-5.0) g/dL Globulin (2.2-3.9) gm/dL Albumin/Globulin Ratio (1.0-2.1) Levetiracetam mcg/mL 05/22/17 Range/Units 06:23 WBC (4.8-10.8) K/uL RBC (3.80-5.20) Mil/uL Hgb (11.0-16.0) g/dL Hct (34.0-47.0) % MCV (81.0-99.0) fL MCH (27.0-31.0) pg MCHC (33.0-37.0) g/dL RDW (11.5-14.5) % Plt Count (130-400) K/uL MPV (7.2-11.7) fL Neut % (Auto) (50.0-75.0) % Lymph % (Auto) (20.0-40.0) % [place] % (Auto) (0.0-10.0) % Eos % (Auto) (0.0-4.0) % Baso % (Auto) (0.0-2.0) % Neut # (Auto) (1.8-7.0) K/uL Lymph # (Auto) (1.0-4.3) K/uL [place] # (Auto) (0.0-0.8) K/uL Eos # (Auto) (0.0-0.7) K/uL Baso # (Auto) (0.0-0.2) K/uL Sodium (132-148) mmol/L Potassium (3.6-5.2) mmol/L Chloride (98-107) mmol/L Carbon Dioxide (22-30) mmol/L Anion Gap (10-20) BUN (7-17) mg/dL Creatinine (0.7-1.2) mg/dL Est GFR ( Amer) Est GFR (Non-Af Amer) POC Glucose (mg/dL) (65-110) mg/dL Random Glucose (65-105) mg/dL Calcium (8.6-10.4) mg/dl Total Bilirubin (0.2-1.3) mg/dL AST (14-36) U/L ALT (9-52) U/L Alkaline Phosphatase (38-126) U/L Total Protein (6.3-8.3) g/dL Albumin (3.5-5.0) g/dL Globulin (2.2-3.9) gm/dL Albumin/Globulin Ratio (1.0-2.1) Levetiracetam 6.5 mcg/mL Laboratory Results - last 24 hr 05/22/17 05/25/17 05/26/17 06:23 17:42 00:00 WBC RBC Hgb Hct MCV MCH MCHC RDW Plt Count MPV Neut % (Auto) Lymph % (Auto) [place] % (Auto) Eos % (Auto) Baso % (Auto) Neut # (Auto) Lymph # (Auto) [place] # (Auto) Eos # (Auto) Baso # (Auto) Sodium Potassium Chloride Carbon Dioxide Anion Gap BUN Creatinine Est GFR ( Amer) Est GFR (Non-Af Amer) POC Glucose (mg/dL) 101 100 Random Glucose Calcium Total Bilirubin AST ALT Alkaline Phosphatase Total Protein Albumin Globulin Albumin/Globulin Ratio Levetiracetam 6.5 05/26/17 05/26/17 05/26/17 05:01 06:17 06:18 WBC 16.0 H RBC 2.60 L Hgb 7.3 L Hct 22.2 L MCV 85.4 MCH 28.0 MCHC 32.8 L RDW 15.1 H Plt Count 336 MPV 9.6 Neut % (Auto) 69.0 Lymph % (Auto) 14.1 L [place] % (Auto) 12.3 H Eos % (Auto) 4.0 Baso % (Auto) 0.6 Neut # (Auto) 11.0 H Lymph # (Auto) 2.3 [place] # (Auto) 2.0 H Eos # (Auto) 0.6 Baso # (Auto) 0.1 Sodium 134 Potassium 3.6 Chloride 100 Carbon Dioxide 25 Anion Gap 13 BUN 8 Creatinine 0.5 L Est GFR ( Amer) > 60 Est GFR (Non-Af Amer) > 60 POC Glucose (mg/dL) 112 H Random Glucose 97 Calcium 8.6 Total Bilirubin 0.3 AST 22 ALT 28 Alkaline Phosphatase 160 H Total Protein 6.4 Albumin 2.9 L Globulin 3.5 Albumin/Globulin Ratio 0.8 L Levetiracetam 05/26/17 11:22 WBC RBC Hgb Hct MCV MCH MCHC RDW Plt Count MPV Neut % (Auto) Lymph % (Auto) [place] % (Auto) Eos % (Auto) Baso % (Auto) Neut # (Auto) Lymph # (Auto) [place] # (Auto) Eos # (Auto) Baso # (Auto) Sodium Potassium Chloride Carbon Dioxide Anion Gap BUN Creatinine Est GFR ( Amer) Est GFR (Non-Af Amer) POC Glucose (mg/dL) 110 Random Glucose Calcium Total Bilirubin AST ALT Alkaline Phosphatase Total Protein Albumin Globulin Albumin/Globulin Ratio Levetiracetam Fingerstick Blood Sugar Results: 110 Review of Systems - Review of Systems Systems not reviewed;Unavailable: Altered Mental Status Assessment/Plan - Assessment and Plan (Free Text) Assessment: 36 year old female with a past medical history of cognitive delay, schizophrenia , depression who was 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 Plan: Psych: Schizophrenia - Please continue scheduled Seroquel 200mg PO BID - measure QTc and call if >500 Neuro: Seizure disorder - Please continue Keppra 500mg PO BID; missing doses can prompt breakthrough seizures, which can worsen clinical ICU course and directly result in poorer outcomes than anticipated - Metoclopramide 10mg IVP qd Cards: Tachycardia (persistent), HTN - Cardizem 60mg TID - metoprolol 5mg IV q4h PRN GI: Biliary emesis, constipation - continue tube feeds to 35cc/hr as tolerating - EGD with placement jejunostomy tube on 05/23 successful; continue per surgery recs - Dulcolax 10mg [place] qd PRN Pulm: PNA - repeat CXR - tracheal aspiration culture grew Pseudomonas aeruginosa: sensitive to cefepime , ciprofloxacin, gentimycin, merepenem, and zosyn - Cefepime IV 1g @ 100ml/hr IVPB q12h - Trach collar at 40% FiO2, satting 97% PPx: DVT, PUD - perma-cath removal c/s surgery - OOB to chair - Drisdol 50,000 IU 1cap PO qwk - VitC 500mg tab PO qd - Multivitamin: 5ml PO qd - Heparin 5000 U SC q8 - Protonix 40mg IVP qd <LatefKayden M - Last Filed: 05/26/17 18:44> CCU Objective - Vital Signs / Intake & Output Vital Signs (Last 4 hours): Vital Signs Pulse Resp BP Pulse Ox 05/26/17 15:38 135 H 13 103/61 100 05/26/17 15:00 130 H 19 100 Intake and Output (Last 8hrs): Intake & Output 05/26/17 05/26/17 05/26/17 06:59 14:59 22:59 Intake Total 255 380 35 Output Total 350 100 Balance -95 280 35 Weight 111 lb 15.917 oz Intake: Intake, IV Amount 10 100 Left PICC Proximal Port 100 Left Upper arm 10 Tube Feeding 245 280 35 Output: Drainage 250 100 ileostomy 250 100 Urine 100 Urine, Voided 100 Other: # Bowel Movements 0 - Medications Active Medications: Active Medications Generic Name Dose Route Start Last Admin Trade Name Freq PRN Reason Stop Dose Admin Acetaminophen 650 mg 04/28/17 20:11 05/25/17 21:46 Tylenol 650mg/20.3ml Solution Ud PO 650 mg Q4 PRN Administration Temperature Ascorbic Acid 500 mg 05/12/17 11:15 05/26/17 10:17 Vitamin C 500 Mg Tab PO 500 mg DAILY [facility] Administration Diltiazem HCl 60 mg 05/23/17 14:00 05/26/17 18:34 Cardizem PO 60 mg TID [facility] Administration Ergocalciferol 1 cap 05/12/17 11:15 05/26/17 10:15 Drisdol 50,000 Intl Units Cap PO 1 cap QWK [facility] Administration Heparin Sodium (Porcine) 5,000 units 05/23/17 22:00 05/26/17 10:16 Heparin SC 5,000 units Q12 [facility] Administration Cefepime HCl 1 gm in 50 mls @ 100 mls/hr 05/24/17 12:00 05/26/17 13:17 Maxipime Iv 1 Gm Premix IVPB 100 mls/hr Q12H [facility] Administration Levetiracetam 500 mg 05/20/17 11:15 05/26/17 18:34 Keppra PO 500 mg BID [facility] Administration Metoclopramide HCl 10 mg 05/12/17 11:00 05/26/17 10:15 Reglan IVP 10 mg DAILY [facility] Administration Metoprolol Tartrate 5 mg 05/20/17 19:40 05/25/17 07:54 Lopressor IVP 5 mg Q4H PRN Administration Systolic Blood Pressure Multivitamins 1 tab 05/17/17 10:00 05/26/17 10:16 Hexavitamin PO 1 tab DAILY [facility] Administration Pantoprazole Sodium 40 mg 05/20/17 11:00 05/26/17 10:16 Protonix Inj IVP 40 mg DAILY [facility] Administration Quetiapine Fumarate 200 mg 05/18/17 11:45 05/26/17 18:35 Seroquel PO 200 mg BID [facility] Administration - Patient Studies Lab Studies: Lab Studies 05/26/17 05/26/17 05/26/17 Range/Units 17:50 11:22 06:18 WBC 16.0 H (4.8-10.8) K/uL RBC 2.60 L (3.80-5.20) Mil/uL Hgb 7.3 L (11.0-16.0) g/dL Hct 22.2 L (34.0-47.0) % MCV 85.4 (81.0-99.0) fL MCH 28.0 (27.0-31.0) pg MCHC 32.8 L (33.0-37.0) g/dL RDW 15.1 H (11.5-14.5) % Plt Count 336 (130-400) K/uL MPV 9.6 (7.2-11.7) fL Neut % (Auto) 69.0 (50.0-75.0) % Lymph % (Auto) 14.1 L (20.0-40.0) % [place] % (Auto) 12.3 H (0.0-10.0) % Eos % (Auto) 4.0 (0.0-4.0) % Baso % (Auto) 0.6 (0.0-2.0) % Neut # (Auto) 11.0 H (1.8-7.0) K/uL Lymph # (Auto) 2.3 (1.0-4.3) K/uL [place] # (Auto) 2.0 H (0.0-0.8) K/uL Eos # (Auto) 0.6 (0.0-0.7) K/uL Baso # (Auto) 0.1 (0.0-0.2) K/uL Sodium (132-148) mmol/L Potassium (3.6-5.2) mmol/L Chloride (98-107) mmol/L Carbon Dioxide (22-30) mmol/L Anion Gap (10-20) BUN (7-17) mg/dL Creatinine (0.7-1.2) mg/dL Est GFR ( Amer) Est GFR (Non-Af Amer) POC Glucose (mg/dL) 102 110 (65-110) mg/dL Random Glucose (65-105) mg/dL Calcium (8.6-10.4) mg/dl Total Bilirubin (0.2-1.3) mg/dL AST (14-36) U/L ALT (9-52) U/L Alkaline Phosphatase (38-126) U/L Total Protein (6.3-8.3) g/dL Albumin (3.5-5.0) g/dL Globulin (2.2-3.9) gm/dL Albumin/Globulin Ratio (1.0-2.1) Levetiracetam mcg/mL 05/26/17 05/26/17 05/26/17 Range/Units 06:17 05:01 00:00 WBC (4.8-10.8) K/uL RBC (3.80-5.20) Mil/uL Hgb (11.0-16.0) g/dL Hct (34.0-47.0) % MCV (81.0-99.0) fL MCH (27.0-31.0) pg MCHC (33.0-37.0) g/dL RDW (11.5-14.5) % Plt Count (130-400) K/uL MPV (7.2-11.7) fL Neut % (Auto) (50.0-75.0) % Lymph % (Auto) (20.0-40.0) % [place] % (Auto) (0.0-10.0) % Eos % (Auto) (0.0-4.0) % Baso % (Auto) (0.0-2.0) % Neut # (Auto) (1.8-7.0) K/uL Lymph # (Auto) (1.0-4.3) K/uL [place] # (Auto) (0.0-0.8) K/uL Eos # (Auto) (0.0-0.7) K/uL Baso # (Auto) (0.0-0.2) K/uL Sodium 134 (132-148) mmol/L Potassium 3.6 (3.6-5.2) mmol/L Chloride 100 (98-107) mmol/L Carbon Dioxide 25 (22-30) mmol/L Anion Gap 13 (10-20) BUN 8 (7-17) mg/dL Creatinine 0.5 L (0.7-1.2) mg/dL Est GFR ( Amer) > 60 Est GFR (Non-Af Amer) > 60 POC Glucose (mg/dL) 112 H 100 (65-110) mg/dL Random Glucose 97 (65-105) mg/dL Calcium 8.6 (8.6-10.4) mg/dl Total Bilirubin 0.3 (0.2-1.3) mg/dL AST 22 (14-36) U/L ALT 28 (9-52) U/L Alkaline Phosphatase 160 H (38-126) U/L Total Protein 6.4 (6.3-8.3) g/dL Albumin 2.9 L (3.5-5.0) g/dL Globulin 3.5 (2.2-3.9) gm/dL Albumin/Globulin Ratio 0.8 L (1.0-2.1) Levetiracetam mcg/mL 05/22/17 Range/Units 06:23 WBC (4.8-10.8) K/uL RBC (3.80-5.20) Mil/uL Hgb (11.0-16.0) g/dL Hct (34.0-47.0) % MCV (81.0-99.0) fL MCH (27.0-31.0) pg MCHC (33.0-37.0) g/dL RDW (11.5-14.5) % Plt Count (130-400) K/uL MPV (7.2-11.7) fL Neut % (Auto) (50.0-75.0) % Lymph % (Auto) (20.0-40.0) % [place] % (Auto) (0.0-10.0) % Eos % (Auto) (0.0-4.0) % Baso % (Auto) (0.0-2.0) % Neut # (Auto) (1.8-7.0) K/uL Lymph # (Auto) (1.0-4.3) K/uL [place] # (Auto) (0.0-0.8) K/uL Eos # (Auto) (0.0-0.7) K/uL Baso # (Auto) (0.0-0.2) K/uL Sodium (132-148) mmol/L Potassium (3.6-5.2) mmol/L Chloride (98-107) mmol/L Carbon Dioxide (22-30) mmol/L Anion Gap (10-20) BUN (7-17) mg/dL Creatinine (0.7-1.2) mg/dL Est GFR ( Amer) Est GFR (Non-Af Amer) POC Glucose (mg/dL) (65-110) mg/dL Random Glucose (65-105) mg/dL Calcium (8.6-10.4) mg/dl Total Bilirubin (0.2-1.3) mg/dL AST (14-36) U/L ALT (9-52) U/L Alkaline Phosphatase (38-126) U/L Total Protein (6.3-8.3) g/dL Albumin (3.5-5.0) g/dL Globulin (2.2-3.9) gm/dL Albumin/Globulin Ratio (1.0-2.1) Levetiracetam 6.5 mcg/mL Laboratory Results - last 24 hr 05/22/17 05/26/17 05/26/17 06:23 00:00 05:01 WBC RBC Hgb Hct MCV MCH MCHC RDW Plt Count MPV Neut % (Auto) Lymph % (Auto) [place] % (Auto) Eos % (Auto) Baso % (Auto) Neut # (Auto) Lymph # (Auto) [place] # (Auto) Eos # (Auto) Baso # (Auto) Sodium Potassium Chloride Carbon Dioxide Anion Gap BUN Creatinine Est GFR ( Amer) Est GFR (Non-Af Amer) POC Glucose (mg/dL) 100 112 H Random Glucose Calcium Total Bilirubin AST ALT Alkaline Phosphatase Total Protein Albumin Globulin Albumin/Globulin Ratio Levetiracetam 6.5 05/26/17 05/26/17 05/26/17 06:17 06:18 11:22 WBC 16.0 H RBC 2.60 L Hgb 7.3 L Hct 22.2 L MCV 85.4 MCH 28.0 MCHC 32.8 L RDW 15.1 H Plt Count 336 MPV 9.6 Neut % (Auto) 69.0 Lymph % (Auto) 14.1 L [place] % (Auto) 12.3 H Eos % (Auto) 4.0 Baso % (Auto) 0.6 Neut # (Auto) 11.0 H Lymph # (Auto) 2.3 [place] # (Auto) 2.0 H Eos # (Auto) 0.6 Baso # (Auto) 0.1 Sodium 134 Potassium 3.6 Chloride 100 Carbon Dioxide 25 Anion Gap 13 BUN 8 Creatinine 0.5 L Est GFR ( Amer) > 60 Est GFR (Non-Af Amer) > 60 POC Glucose (mg/dL) 110 Random Glucose 97 Calcium 8.6 Total Bilirubin 0.3 AST 22 ALT 28 Alkaline Phosphatase 160 H Total Protein 6.4 Albumin 2.9 L Globulin 3.5 Albumin/Globulin Ratio 0.8 L Levetiracetam 05/26/17 17:50 WBC RBC Hgb Hct MCV MCH MCHC RDW Plt Count MPV Neut % (Auto) Lymph % (Auto) [place] % (Auto) Eos % (Auto) Baso % (Auto) Neut # (Auto) Lymph # (Auto) [place] # (Auto) Eos # (Auto) Baso # (Auto) Sodium Potassium Chloride Carbon Dioxide Anion Gap BUN Creatinine Est GFR ( Amer) Est GFR (Non-Af Amer) POC Glucose (mg/dL) 102 Random Glucose Calcium Total Bilirubin AST ALT Alkaline Phosphatase Total Protein Albumin Globulin Albumin/Globulin Ratio Levetiracetam Attending/Attestation - Attestation I have personally seen and examined this patient.: Yes I have fully participated in the care of the patient.: Yes I have reviewed all pertinent clinical information: Yes Notes (Text): 05/26/17 18:43 Today: , May 26, 2017 The Patient was seen and examined at the bedside, Medical records reviewed, and management issues were discussed and formulated with the house staff. I have reviewed all the relevant clinical, laboratory, hemodynamic, radiographic data and medications Events reviewed Pain issues, skin care, head of the bed elevation, glycemic control were addressed. Agree with above resident's assessment and treatment plans of care as transcribed in Dr. Meeks note.
[2017-05-27] MEDS: Cefepime IV 1 gm in Dextrose 1 GM/50 ML BAG IVPB SCH ×2 (00:45→12:55)
[2017-05-27 06:39] LABS: BASO # 0.1 K/uL (0.0-0.2); BASO % 0.5 % (0.0-2.0); EOS # 0.8 K/uL (0.0-0.7); EOS % 6.2 % (0.0-4.0); HEMOGLOBIN 7.2 g/dL (11.0-16.0); LYMPH # 2.7 K/uL (1.0-4.3); MEAN CELL VOLUME 84.9 fL (81.0-99.0); MEAN CORPUSCULAR HEMOGLOBIN 28.3 pg (27.0-31.0); MEAN CORPUSCULAR HGB CONC 33.3 g/dL (33.0-37.0); MEAN PLATELET VOLUME 9.5 fL (7.2-11.7); MONO # 1.2 K/uL (0.0-0.8); NEUT # 8.1 K/uL (1.8-7.0); NEUT % 63.3 % (50.0-75.0); RBC 2.56 Mil/uL (3.80-5.20); RED CELL DISTRIBUTION WIDTH 15.4 % (11.5-14.5); WHITE BLOOD COUNT 12.7 K/uL (4.8-10.8)
[2017-05-27 07:12] LABS: ALB/GLOB RATIO 0.8 (1.0-2.1); ALBUMIN 3.1 g/dL (3.5-5.0); ALT/SGPT 29 U/L (9-52); AST/SGOT 19 U/L (14-36); BLOOD UREA NITROGEN 10 mg/dL (7-17); GFR AFRICAN-AMERICAN > 60; GFR NON-AFRICAN AMERICAN > 60
--- NOTE | 2017-05-27 08:06 | CP.PCM.PN ---
<Elliot Ye - Last Filed: 05/27/17 08:04> Subjective - Date & Time of Evaluation Date of Evaluation: 05/27/17 Time of Evaluation: 07:15 - Subjective Subjective: PGY5 GI Fellow Progress Note Patient seen and examined bedside this morning. Patient nonverbal at baseline. The patient's tube feeds were held and there is report of bilious emesis/thick secretions suctions 24H prior. Discussed with nursing who state patient did not vomit during day shift yesterday and no report last night. Not passing stool. 12 system ROS cannot be performed. Objective - Vital Signs/Intake and Output Vital Signs (last 24 hours): Temp Pulse Resp BP Pulse Ox 99.1 F 124 H 17 105/65 98 05/27/17 04:00 05/27/17 08:00 05/27/17 08:00 05/27/17 07:38 05/27/17 08:00 Intake and Output: 05/27/17 05/27/17 06:59 18:59 Intake Total 470 35 Output Total 0 Balance 470 35 - Medications Medications: Current Medications Acetaminophen (Tylenol 650mg/20.3ml Solution Ud) 650 mg PO Q4 PRN PRN Reason: Temperature Last Admin: 05/25/17 21:46 Dose: 650 mg Ascorbic Acid (Vitamin C 500 Mg Tab) 500 mg PO DAILY [facility] Last Admin: 05/26/17 10:17 Dose: 500 mg Diltiazem HCl (Cardizem) 60 mg PO TID [facility] Last Admin: 05/26/17 18:34 Dose: 60 mg Ergocalciferol (Drisdol 50,000 Intl Units Cap) 1 cap PO QWK [facility] Last Admin: 05/26/17 10:15 Dose: 1 cap Heparin Sodium (Porcine) (Heparin) 5,000 units SC Q12 [facility] Last Admin: 05/26/17 21:30 Dose: 5,000 units Cefepime HCl (Maxipime Iv 1 Gm Premix) 1 gm in 50 mls @ 100 mls/hr IVPB Q12H [facility] Last Admin: 05/27/17 00:45 Dose: 100 mls/hr Levetiracetam (Keppra) 500 mg PO BID [facility] Last Admin: 05/26/17 18:34 Dose: 500 mg Metoclopramide HCl (Reglan) 10 mg IVP DAILY [facility] Last Admin: 05/26/17 10:15 Dose: 10 mg Metoprolol Tartrate (Lopressor) 5 mg IVP Q4H PRN PRN Reason: Systolic Blood Pressure Last Admin: 05/25/17 07:54 Dose: 5 mg Multivitamins (Hexavitamin) 1 tab PO DAILY [facility] Last Admin: 05/26/17 10:16 Dose: 1 tab Pantoprazole Sodium (Protonix Inj) 40 mg IVP DAILY [facility] Last Admin: 05/26/17 10:16 Dose: 40 mg Quetiapine Fumarate (Seroquel) 200 mg PO BID [facility] Last Admin: 05/26/17 18:35 Dose: 200 mg - Labs Labs: 05/27/17 06:32 05/27/17 06:30 PT 14.0 SECONDS (9.7-12.2) H 04/25/17 06:25 INR 1.2 04/25/17 06:25 APTT 32 SECONDS (21-34) 04/25/17 06:25 - Constitutional Appears: No Acute Distress, Chronically Ill - Eye Exam Eye Exam: PERRL - ENT Exam ENT Exam: Mucous Membranes Dry - Respiratory Exam Respiratory Exam: Rales. absent: Rhonchi, Wheezes - Cardiovascular Exam Cardiovascular Exam: Tachycardia, REGULAR RHYTHM, +S1, +S2 - GI/Abdominal Exam GI & Abdominal Exam: Soft, Normal Bowel Sounds. absent: Distended, Firm, Guarding, Rigid, Tenderness, Organomegaly Additional comments: PEJ present, surgical ostomy noted with bilious drainage - Extremities Exam Extremities Exam: Normal Inspection. 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 and boby-en-Y feeding jejunostomy -SMA syndrome s/p boby-en-y gastrojejunostomy and boby-en-Y feeding jejunostomy with interval removal of feeding jejunostomy tubing and insertion of PEJ on 05/23 -Schizophrenia, non-verbal Plan: -Check small bowel follow through via PEJ today -Encourage continuation of tube feeding -Do not check residuals -Discussed case with surgical team - recommend considerration for reversal of ostomy -Plan per findings <Juan Jose Meadel - Last Filed: 05/27/17 08:49> Objective - Vital Signs/Intake and Output Vital Signs (last 24 hours): Temp Pulse Resp BP Pulse Ox 99.1 F 124 H 17 105/65 98 05/27/17 04:00 05/27/17 08:00 05/27/17 08:00 05/27/17 07:38 05/27/17 08:00 Intake and Output: 05/27/17 05/27/17 06:59 18:59 Intake Total 470 35 Output Total 0 Balance 470 35 - Medications Medications: Current Medications Acetaminophen (Tylenol 650mg/20.3ml Solution Ud) 650 mg PO Q4 PRN PRN Reason: Temperature Last Admin: 05/25/17 21:46 Dose: 650 mg Ascorbic Acid (Vitamin C 500 Mg Tab) 500 mg PO DAILY [facility] Last Admin: 05/26/17 10:17 Dose: 500 mg Diltiazem HCl (Cardizem) 60 mg PO TID [facility] Last Admin: 05/26/17 18:34 Dose: 60 mg Ergocalciferol (Drisdol 50,000 Intl Units Cap) 1 cap PO QWK [facility] Last Admin: 05/26/17 10:15 Dose: 1 cap Heparin Sodium (Porcine) (Heparin) 5,000 units SC Q12 [facility] Last Admin: 05/26/17 21:30 Dose: 5,000 units Cefepime HCl (Maxipime Iv 1 Gm Premix) 1 gm in 50 mls @ 100 mls/hr IVPB Q12H [facility] Last Admin: 05/27/17 00:45 Dose: 100 mls/hr Levetiracetam (Keppra) 500 mg PO BID [facility] Last Admin: 05/26/17 18:34 Dose: 500 mg Metoclopramide HCl (Reglan) 10 mg IVP DAILY [facility] Last Admin: 05/26/17 10:15 Dose: 10 mg Metoprolol Tartrate (Lopressor) 5 mg IVP Q4H PRN PRN Reason: Systolic Blood Pressure Last Admin: 05/25/17 07:54 Dose: 5 mg Multivitamins (Hexavitamin) 1 tab PO DAILY [facility] Last Admin: 05/26/17 10:16 Dose: 1 tab Pantoprazole Sodium (Protonix Inj) 40 mg IVP DAILY [facility] Last Admin: 05/26/17 10:16 Dose: 40 mg Quetiapine Fumarate (Seroquel) 200 mg PO BID [facility] Last Admin: 05/26/17 18:35 Dose: 200 mg - Labs Labs: 05/27/17 06:32 05/27/17 06:30 PT 14.0 SECONDS (9.7-12.2) H 04/25/17 06:25 INR 1.2 04/25/17 06:25 APTT 32 SECONDS (21-34) 04/25/17 06:25 Attending/Attestation - Attestation I have personally seen and examined this patient.: Yes I have fully participated in the care of the patient.: Yes I have reviewed all pertinent clinical information, including history, physical exam and plan: Yes Notes (Text): 05/27/17 08:46 36 year old female with originally admitted with SMA syndrome now s/p RNY gastro -jejunostomy and enterostomy with feeding tube which was not tolerated and she had persistent vomiting now s/p removal of j tube and placement of a new feeding PEJ. 1. SMA syndrome 2. Percuataneous endoscopic jejunostomy 3. s/p Gastro-jejunostomy Plan: -tolerating tube feeds at goal -milky bilious jejunostomy stomal output -recommend SBFT through J tube today -would consider take down of stoma as it serves no purpose now in the setting of PEJ and may be diverting significant nutrition out of the stoma
--- NOTE | 2017-05-27 09:05 | CP.PCM.PN ---
Subjective - Date & Time of Evaluation Date of Evaluation: 05/27/17 Time of Evaluation: 08:00 - Subjective Subjective: General surgery progress note for Dr. Bishnu Rothman, PGY-1 Pt S & E at bedside this AM. Pt resting comfortably in bed. Tube feeds currently, but no reported emesis per nursing. Pt recently cleaned, tube feeds off with cleaning. Large amount of greenish white fluid in ostomy bag. Objective - Vital Signs/Intake and Output Vital Signs (last 24 hours): Temp Pulse Resp BP Pulse Ox 99.1 F 124 H 17 105/65 98 05/27/17 04:00 05/27/17 08:00 05/27/17 08:00 05/27/17 07:38 05/27/17 08:00 Intake and Output: 05/27/17 05/27/17 06:59 18:59 Intake Total 470 35 Output Total 0 Balance 470 35 - Medications Medications: Current Medications Acetaminophen (Tylenol 650mg/20.3ml Solution Ud) 650 mg PO Q4 PRN PRN Reason: Temperature Last Admin: 05/25/17 21:46 Dose: 650 mg Ascorbic Acid (Vitamin C 500 Mg Tab) 500 mg PO DAILY [facility] [place] Last Admin: 05/26/17 10:17 Dose: 500 mg Diltiazem HCl (Cardizem) 60 mg PO TID [facility] [place] Last Admin: 05/26/17 18:34 Dose: 60 mg Ergocalciferol (Drisdol 50,000 Intl Units Cap) 1 cap PO QWK [facility] [place] Last Admin: 05/26/17 10:15 Dose: 1 cap Heparin Sodium (Porcine) (Heparin) 5,000 units SC Q12 [facility] [place] Last Admin: 05/26/17 21:30 Dose: 5,000 units Cefepime HCl (Maxipime Iv 1 Gm Premix) 1 gm in 50 mls @ 100 mls/hr IVPB Q12H [facility] [place] Last Admin: 05/27/17 00:45 Dose: 100 mls/hr Levetiracetam (Keppra) 500 mg PO BID [facility] [place] Last Admin: 05/26/17 18:34 Dose: 500 mg Metoclopramide HCl (Reglan) 10 mg IVP DAILY [facility] [place] Last Admin: 05/26/17 10:15 Dose: 10 mg Metoprolol Tartrate (Lopressor) 5 mg IVP Q4H PRN PRN Reason: Systolic Blood Pressure Last Admin: 05/25/17 07:54 Dose: 5 mg Multivitamins (Hexavitamin) 1 tab PO DAILY [facility] [place] Last Admin: 05/26/17 10:16 Dose: 1 tab Pantoprazole Sodium (Protonix Inj) 40 mg IVP DAILY [facility] [place] Last Admin: 05/26/17 10:16 Dose: 40 mg Quetiapine Fumarate (Seroquel) 200 mg PO BID [facility] [place] Last Admin: 05/26/17 18:35 Dose: 200 mg - Labs Labs: 05/27/17 06:32 05/27/17 06:30 PT 14.0 SECONDS (9.7-12.2) H 04/25/17 06:25 INR 1.2 04/25/17 06:25 APTT 32 SECONDS (21-34) 04/25/17 06:25 - Constitutional Appears: Non-toxic, No Acute Distress - Head Exam Head Exam: ATRAUMATIC, NORMAL INSPECTION, NORMOCEPHALIC Additional comments: trach collar in place - Eye Exam Eye Exam: EOMI, Normal appearance - ENT Exam ENT Exam: Mucous Membranes Moist, Normal Exam - Respiratory Exam Respiratory Exam: NORMAL BREATHING PATTERN - Cardiovascular Exam Cardiovascular Exam: Tachycardia, JVD, RRR - GI/Abdominal Exam GI & Abdominal Exam: Soft. absent: Distended, Firm, Guarding, Tenderness Additional comments: PEJ tube in place Ostomy bag wit large amount of dark greenish fluid Well healed midline surgical incision site - Extremities Exam Extremities Exam: Normal Inspection - Neurological Exam Neurological Exam: Awake - Psychiatric Exam Additional comments: non verbal-baseline - Skin Skin Exam: Dry, Intact, Normal Color, Warm Assessment and Plan - Assessment and Plan (Free Text) Assessment: 36F POD#38 s/p gastrojejunostomy w/bypass and feeding jejunostomy, s/p PEJ tube placement by GI Plan: GI at bedside- recommended reversal of ostomy PEJ tube in place Tube feeds to be resumed Further mgmt as per primary and ICU teams Will ISIDRO attending Lorna, PGY-1
[2017-05-27] MEDS: Multiple Vitamins Tab PO SCH (09:49)
[2017-05-27] MEDS: levETIRAcetam 100 mg/ml (5ml) Oral Syringe PO SCH ×2 (09:51→18:38)
[2017-05-27] MEDS ORDERED: Ferric Sodium Gluconat Complex 62.5 mg/5 ml Vial IVPB ONE ×2 (10:06→14:00)
--- NOTE | 2017-05-27 12:38 | CP.CCUPN ---
<Ponce Meeks - Last Filed: 05/27/17 13:01> CCU Subjective - Physician Review Events Since Last Encounter (Free Text): 05/27/17 12:39 No acute events overnight Per nursing. Subjective (Free Text): 05/24/17 11:29 Patient seen and examined at bedside. ROS unobtainable due to acuity of condition. 05/27/17 12:40 Patient seen and examined at bedside this A.M. CCU Objective - Vital Signs / Intake & Output Vital Signs (Last 4 hours): Vital Signs Pulse Resp BP Pulse Ox 05/27/17 09:00 130 H 19 100 05/27/17 08:38 128 H 24 101/66 99 Intake and Output (Last 8hrs): Intake & Output 05/26/17 05/27/17 05/27/17 22:59 06:59 14:59 Intake Total 280 330 105 Output Total 550 800 400 Balance -270 -470 -295 Intake: Intake, IV Amount 0 50 0 Left PICC Proximal Port 0 50 0 Tube Feeding 280 280 105 Output: Drainage 400 300 400 ileostomy 400 300 400 Urine 150 500 Urine, Voided 150 500 Stool 0 - Physical Exam Head: Positive for: Atraumatic, Normocephalic. Negative for: Tenderness Pupils: Positive for: PERRL Extroacular Muscles: Positive for: EOMI Mouth: Positive for: Moist Mucous Membranes. Negative for: Dry, Drooling Nose (External): Positive for: Other (NGT in place) Nose (Internal): Positive for: Normal Inspection, Moist Neck: Positive for: Other (trach). Negative for: JVD, Lymphadenopathy Respiratory/Chest: Positive for: Clear to Auscultation. Negative for: Respiratory Distress, Accessory Muscle Use Cardiovascular: Positive for: Regular Rate and Rhythm, Normal S1, S2 Abdomen: Positive for: Tenderness (mild tenderness of palpation. patient continues to move her arms towards hands on palpation), Normal Bowel Sounds. Negative for: Distention, Peritoneal Signs, Guarding Upper Extremity: Positive for: Normal Inspection, Normal ROM, Capillary Refill < 2s. Negative for: Edema Lower Extremity: Positive for: Normal Inspection. Negative for: Edema Neurological: Positive for: CN II-XII Intact Skin: Positive for: Warm, Pale Psychiatric: Positive for: Alert - Medications Active Medications: Active Medications Generic Name Dose Route Start Last Admin Trade Name Freq PRN Reason Stop Dose Admin Acetaminophen 650 mg 04/28/17 20:11 05/25/17 21:46 Tylenol 650mg/20.3ml Solution Ud PO 650 mg Q4 PRN Administration Temperature Ascorbic Acid 500 mg 05/12/17 11:15 05/27/17 09:50 Vitamin C 500 Mg Tab PO 500 mg DAILY AGUSTIN Administration Diltiazem HCl 60 mg 05/23/17 14:00 05/27/17 09:49 Cardizem PO 60 mg TID AGUSTIN Administration Ergocalciferol 1 cap 05/12/17 11:15 05/26/17 10:15 Drisdol 50,000 Intl Units Cap PO 1 cap QWK AGUSTIN Administration Heparin Sodium (Porcine) 5,000 units 05/23/17 22:00 05/27/17 09:49 Heparin SC 5,000 units Q12 AGUSTIN Administration Cefepime HCl 1 gm in 50 mls @ 100 mls/hr 05/24/17 12:00 05/27/17 00:45 Maxipime Iv 1 Gm Premix IVPB 100 mls/hr Q12H AGUSTIN Administration Levetiracetam 500 mg 05/20/17 11:15 05/27/17 09:51 Keppra PO 500 mg BID AGUSTIN Administration Metoclopramide HCl 10 mg 05/12/17 11:00 05/27/17 09:50 Reglan IVP 10 mg DAILY AGUSTIN Administration Metoprolol Tartrate 5 mg 05/20/17 19:40 05/25/17 07:54 Lopressor IVP 5 mg Q4H PRN Administration Systolic Blood Pressure Multivitamins 1 tab 05/17/17 10:00 05/27/17 09:49 Hexavitamin PO 1 tab DAILY AGUSTIN Administration Pantoprazole Sodium 40 mg 05/20/17 11:00 05/27/17 09:49 Protonix Inj IVP 40 mg DAILY AGUSTIN Administration Quetiapine Fumarate 200 mg 05/18/17 11:45 05/27/17 09:51 Seroquel PO 200 mg BID AGUSTIN Administration - Patient Studies Lab Studies: Lab Studies 05/27/17 05/27/17 05/27/17 Range/Units 11:31 06:32 06:30 WBC 12.7 H (4.8-10.8) K/uL RBC 2.56 L (3.80-5.20) Mil/uL Hgb 7.2 L (11.0-16.0) g/dL Hct 21.7 L (34.0-47.0) % MCV 84.9 (81.0-99.0) fL MCH 28.3 (27.0-31.0) pg MCHC 33.3 (33.0-37.0) g/dL RDW 15.4 H (11.5-14.5) % Plt Count 418 H (130-400) K/uL MPV 9.5 (7.2-11.7) fL Neut % (Auto) 63.3 (50.0-75.0) % Lymph % (Auto) 21.0 (20.0-40.0) % [place] % (Auto) 9.0 (0.0-10.0) % Eos % (Auto) 6.2 H (0.0-4.0) % Baso % (Auto) 0.5 (0.0-2.0) % Neut # (Auto) 8.1 H (1.8-7.0) K/uL Lymph # (Auto) 2.7 (1.0-4.3) K/uL [place] # (Auto) 1.2 H (0.0-0.8) K/uL Eos # (Auto) 0.8 H (0.0-0.7) K/uL Baso # (Auto) 0.1 (0.0-0.2) K/uL Sodium 136 (132-148) mmol/L Potassium 3.6 (3.6-5.2) mmol/L Chloride 97 L (98-107) mmol/L Carbon Dioxide 29 (22-30) mmol/L Anion Gap 15 (10-20) BUN 10 (7-17) mg/dL Creatinine 0.5 L (0.7-1.2) mg/dL Est GFR ( Amer) > 60 Est GFR (Non-Af Amer) > 60 POC Glucose (mg/dL) 98 (65-110) mg/dL Random Glucose 100 (65-105) mg/dL Calcium 9.0 (8.6-10.4) mg/dl Phosphorus 4.3 (2.5-4.5) mg/dL Magnesium 1.7 (1.6-2.3) mg/dL Total Bilirubin 0.4 (0.2-1.3) mg/dL AST 19 (14-36) U/L ALT 29 (9-52) U/L Alkaline Phosphatase 149 H (38-126) U/L Total Protein 6.9 (6.3-8.3) g/dL Albumin 3.1 L (3.5-5.0) g/dL Globulin 3.7 (2.2-3.9) gm/dL Albumin/Globulin Ratio 0.8 L (1.0-2.1) 05/27/17 05/27/17 05/26/17 Range/Units 06:20 00:18 17:50 WBC (4.8-10.8) K/uL RBC (3.80-5.20) Mil/uL Hgb (11.0-16.0) g/dL Hct (34.0-47.0) % MCV (81.0-99.0) fL MCH (27.0-31.0) pg MCHC (33.0-37.0) g/dL RDW (11.5-14.5) % Plt Count (130-400) K/uL MPV (7.2-11.7) fL Neut % (Auto) (50.0-75.0) % Lymph % (Auto) (20.0-40.0) % [place] % (Auto) (0.0-10.0) % Eos % (Auto) (0.0-4.0) % Baso % (Auto) (0.0-2.0) % Neut # (Auto) (1.8-7.0) K/uL Lymph # (Auto) (1.0-4.3) K/uL [place] # (Auto) (0.0-0.8) K/uL Eos # (Auto) (0.0-0.7) K/uL Baso # (Auto) (0.0-0.2) K/uL Sodium (132-148) mmol/L Potassium (3.6-5.2) mmol/L Chloride (98-107) mmol/L Carbon Dioxide (22-30) mmol/L Anion Gap (10-20) BUN (7-17) mg/dL Creatinine (0.7-1.2) mg/dL Est GFR ( Amer) Est GFR (Non-Af Amer) POC Glucose (mg/dL) 110 97 102 (65-110) mg/dL Random Glucose (65-105) mg/dL Calcium (8.6-10.4) mg/dl Phosphorus (2.5-4.5) mg/dL Magnesium (1.6-2.3) mg/dL Total Bilirubin (0.2-1.3) mg/dL AST (14-36) U/L ALT (9-52) U/L Alkaline Phosphatase (38-126) U/L Total Protein (6.3-8.3) g/dL Albumin (3.5-5.0) g/dL Globulin (2.2-3.9) gm/dL Albumin/Globulin Ratio (1.0-2.1) Laboratory Results - last 24 hr 05/26/17 05/27/17 05/27/17 17:50 00:18 06:20 WBC RBC Hgb Hct MCV MCH MCHC RDW Plt Count MPV Neut % (Auto) Lymph % (Auto) [place] % (Auto) Eos % (Auto) Baso % (Auto) Neut # (Auto) Lymph # (Auto) [place] # (Auto) Eos # (Auto) Baso # (Auto) Sodium Potassium Chloride Carbon Dioxide Anion Gap BUN Creatinine Est GFR ( Amer) Est GFR (Non-Af Amer) POC Glucose (mg/dL) 102 97 110 Random Glucose Calcium Phosphorus Magnesium Total Bilirubin AST ALT Alkaline Phosphatase Total Protein Albumin Globulin Albumin/Globulin Ratio 05/27/17 05/27/17 05/27/17 06:30 06:32 11:31 WBC 12.7 H RBC 2.56 L Hgb 7.2 L Hct 21.7 L MCV 84.9 MCH 28.3 MCHC 33.3 RDW 15.4 H Plt Count 418 H MPV 9.5 Neut % (Auto) 63.3 Lymph % (Auto) 21.0 Alger % (Auto) 9.0 Eos % (Auto) 6.2 H Baso % (Auto) 0.5 Neut # (Auto) 8.1 H Lymph # (Auto) 2.7 [place] # (Auto) 1.2 H Eos # (Auto) 0.8 H Baso # (Auto) 0.1 Sodium 136 Potassium 3.6 Chloride 97 L Carbon Dioxide 29 Anion Gap 15 BUN 10 Creatinine 0.5 L Est GFR ( Amer) > 60 Est GFR (Non-Af Amer) > 60 POC Glucose (mg/dL) 98 Random Glucose 100 Calcium 9.0 Phosphorus 4.3 Magnesium 1.7 Total Bilirubin 0.4 AST 19 ALT 29 Alkaline Phosphatase 149 H Total Protein 6.9 Albumin 3.1 L Globulin 3.7 Albumin/Globulin Ratio 0.8 L Fingerstick Blood Sugar Results: 110 Assessment/Plan - Assessment and Plan (Free Text) Assessment: Patient is a 36 year-old female, post-operative day #39 status post gastrojejunostomy with bypass feeding tube placed. Her past medical history includes acute pancreatitis, sepsis, renal insufficiency, and schizophrenia. She is currently being treated for Pseudomonas infection grew out of tracheal aspirations. Plan: Psychiatry: Schizophrenia - Please continue scheduled Seroquel 200mg PO BID - measure QTc and call if >500 Neurology: Seizure disorder - Please continue Keppra 500mg PO BID; missing doses can prompt breakthrough seizures, which can worsen clinical ICU course and directly result in poorer outcomes than anticipated - Metoclopramide 10mg IVP qd Cardiology: Tachycardia (persistent), HTN - Cardizem 60mg TID - metoprolol 5mg IV q4h PRN - Provide IVF if BP drops 2/2 Cardizem GI: Biliary emesis, constipation - continue tube feeds as tolerating up to goal of 35cc/hr - continue per surgery recs after small bowel follow thru per PEJ today 05/27 to asses patency of jejunostomy; per GI, consider revising ostomy pending results - Dulcolax 10mg [place] qd PRN - d/c accuchecks as blood sugars have been stable and within normal ranges - Ferrlecit 125 mg IVPB x1 - consider transfusions if Hb levels drop below 7 and corroborate clinical picture Pulm: PNA - tracheal aspiration culture grew Pseudomonas aeruginosa - Cefepime IV 1g @ 100ml/hr IVPB q12h - Trach collar at 40% FiO2, satting 97% PPx: DVT, PUD - Continue OOB to chair - Drisdol 50,000 IU 1cap PO qwk - VitC 500mg tab PO qd - Multivitamin: 5ml PO qd - Heparin 5000 U SC q8 - Protonix 40mg IVP qd <Najma Granger - Last Filed: 05/27/17 18:50> CCU Objective - Vital Signs / Intake & Output Vital Signs (Last 4 hours): Vital Signs Temp Pulse Resp BP Pulse Ox 05/27/17 18:00 135 H 15 100 05/27/17 17:38 124 H 14 101/64 100 05/27/17 17:00 130 H 12 100 05/27/17 16:38 125 H 18 98/59 L 99 05/27/17 16:00 98.4 F 140 H 21 100 05/27/17 15:38 124 H 17 96/60 L 100 05/27/17 15:01 101/59 L Intake and Output (Last 8hrs): Intake & Output 05/27/17 05/27/17 05/27/17 06:59 14:59 22:59 Intake Total 330 430 140 Output Total 800 500 Balance -470 -70 140 Intake: Intake, IV Amount 50 150 Left PICC Proximal Port 50 150 Tube Feeding 280 280 140 Output: Drainage 300 500 ileostomy 300 500 Urine 500 Urine, Voided 500 - Medications Active Medications: Active Medications Generic Name Dose Route Start Last Admin Trade Name Freq PRN Reason Stop Dose Admin Acetaminophen 650 mg 04/28/17 20:11 05/25/17 21:46 Tylenol 650mg/20.3ml Solution Ud PO 650 mg Q4 PRN Administration Temperature Ascorbic Acid 500 mg 05/12/17 11:15 05/27/17 09:50 Vitamin C 500 Mg Tab PO 500 mg DAILY AGUSTIN Administration Diltiazem HCl 60 mg 05/23/17 14:00 05/27/17 18:38 Cardizem PO 60 mg TID AGUSTIN Administration Ergocalciferol 1 cap 05/12/17 11:15 05/26/17 10:15 Drisdol 50,000 Intl Units Cap PO 1 cap QWK AGUSTIN Administration Heparin Sodium (Porcine) 5,000 units 05/23/17 22:00 05/27/17 09:49 Heparin SC 5,000 units Q12 AGUSTIN Administration Cefepime HCl 1 gm in 50 mls @ 100 mls/hr 05/24/17 12:00 05/27/17 12:55 Maxipime Iv 1 Gm Premix IVPB 100 mls/hr Q12H AGUSTIN Administration Levetiracetam 500 mg 05/20/17 11:15 05/27/17 18:38 Keppra PO 500 mg BID AGUSTIN Administration Metoclopramide HCl 10 mg 05/12/17 11:00 05/27/17 09:50 Reglan IVP 10 mg DAILY AGUSTIN Administration Metoprolol Tartrate 5 mg 05/20/17 19:40 05/25/17 07:54 Lopressor IVP 5 mg Q4H PRN Administration Systolic Blood Pressure Multivitamins 1 tab 05/17/17 10:00 05/27/17 09:49 Hexavitamin PO 1 tab DAILY AGUSTIN Administration Pantoprazole Sodium 40 mg 05/20/17 11:00 05/27/17 09:49 Protonix Inj IVP 40 mg DAILY AGUSTIN Administration Quetiapine Fumarate 200 mg 05/18/17 11:45 05/27/17 18:38 Seroquel PO 200 mg BID AGUSTIN Administration - Patient Studies Lab Studies: Lab Studies 05/27/17 05/27/17 05/27/17 Range/Units 11:31 06:32 06:30 WBC 12.7 H (4.8-10.8) K/uL RBC 2.56 L (3.80-5.20) Mil/uL Hgb 7.2 L (11.0-16.0) g/dL Hct 21.7 L (34.0-47.0) % MCV 84.9 (81.0-99.0) fL MCH 28.3 (27.0-31.0) pg MCHC 33.3 (33.0-37.0) g/dL RDW 15.4 H (11.5-14.5) % Plt Count 418 H (130-400) K/uL MPV 9.5 (7.2-11.7) fL Neut % (Auto) 63.3 (50.0-75.0) % Lymph % (Auto) 21.0 (20.0-40.0) % [place] % (Auto) 9.0 (0.0-10.0) % Eos % (Auto) 6.2 H (0.0-4.0) % Baso % (Auto) 0.5 (0.0-2.0) % Neut # (Auto) 8.1 H (1.8-7.0) K/uL Lymph # (Auto) 2.7 (1.0-4.3) K/uL [place] # (Auto) 1.2 H (0.0-0.8) K/uL Eos # (Auto) 0.8 H (0.0-0.7) K/uL Baso # (Auto) 0.1 (0.0-0.2) K/uL Sodium 136 (132-148) mmol/L Potassium 3.6 (3.6-5.2) mmol/L Chloride 97 L (98-107) mmol/L Carbon Dioxide 29 (22-30) mmol/L Anion Gap 15 (10-20) BUN 10 (7-17) mg/dL Creatinine 0.5 L (0.7-1.2) mg/dL Est GFR ( Amer) > 60 Est GFR (Non-Af Amer) > 60 POC Glucose (mg/dL) 98 (65-110) mg/dL Random Glucose 100 (65-105) mg/dL Calcium 9.0 (8.6-10.4) mg/dl Phosphorus 4.3 (2.5-4.5) mg/dL Magnesium 1.7 (1.6-2.3) mg/dL Total Bilirubin 0.4 (0.2-1.3) mg/dL AST 19 (14-36) U/L ALT 29 (9-52) U/L Alkaline Phosphatase 149 H (38-126) U/L Total Protein 6.9 (6.3-8.3) g/dL Albumin 3.1 L (3.5-5.0) g/dL Globulin 3.7 (2.2-3.9) gm/dL Albumin/Globulin Ratio 0.8 L (1.0-2.1) 05/27/17 05/27/17 Range/Units 06:20 00:18 WBC (4.8-10.8) K/uL RBC (3.80-5.20) Mil/uL Hgb (11.0-16.0) g/dL Hct (34.0-47.0) % MCV (81.0-99.0) fL MCH (27.0-31.0) pg MCHC (33.0-37.0) g/dL RDW (11.5-14.5) % Plt Count (130-400) K/uL MPV (7.2-11.7) fL Neut % (Auto) (50.0-75.0) % Lymph % (Auto) (20.0-40.0) % [place] % (Auto) (0.0-10.0) % Eos % (Auto) (0.0-4.0) % Baso % (Auto) (0.0-2.0) % Neut # (Auto) (1.8-7.0) K/uL Lymph # (Auto) (1.0-4.3) K/uL [place] # (Auto) (0.0-0.8) K/uL Eos # (Auto) (0.0-0.7) K/uL Baso # (Auto) (0.0-0.2) K/uL Sodium (132-148) mmol/L Potassium (3.6-5.2) mmol/L Chloride (98-107) mmol/L Carbon Dioxide (22-30) mmol/L Anion Gap (10-20) BUN (7-17) mg/dL Creatinine (0.7-1.2) mg/dL Est GFR ( Amer) Est GFR (Non-Af Amer) POC Glucose (mg/dL) 110 97 (65-110) mg/dL Random Glucose (65-105) mg/dL Calcium (8.6-10.4) mg/dl Phosphorus (2.5-4.5) mg/dL Magnesium (1.6-2.3) mg/dL Total Bilirubin (0.2-1.3) mg/dL AST (14-36) U/L ALT (9-52) U/L Alkaline Phosphatase (38-126) U/L Total Protein (6.3-8.3) g/dL Albumin (3.5-5.0) g/dL Globulin (2.2-3.9) gm/dL Albumin/Globulin Ratio (1.0-2.1) Laboratory Results - last 24 hr 05/27/17 05/27/17 05/27/17 00:18 06:20 06:30 WBC RBC Hgb Hct MCV MCH MCHC RDW Plt Count MPV Neut % (Auto) Lymph % (Auto) [place] % (Auto) Eos % (Auto) Baso % (Auto) Neut # (Auto) Lymph # (Auto) [place] # (Auto) Eos # (Auto) Baso # (Auto) Sodium 136 Potassium 3.6 Chloride 97 L Carbon Dioxide 29 Anion Gap 15 BUN 10 Creatinine 0.5 L Est GFR ( Amer) > 60 Est GFR (Non-Af Amer) > 60 POC Glucose (mg/dL) 97 110 Random Glucose 100 Calcium 9.0 Phosphorus 4.3 Magnesium 1.7 Total Bilirubin 0.4 AST 19 ALT 29 Alkaline Phosphatase 149 H Total Protein 6.9 Albumin 3.1 L Globulin 3.7 Albumin/Globulin Ratio 0.8 L 05/27/17 05/27/17 06:32 11:31 WBC 12.7 H RBC 2.56 L Hgb 7.2 L Hct 21.7 L MCV 84.9 MCH 28.3 MCHC 33.3 RDW 15.4 H Plt Count 418 H MPV 9.5 Neut % (Auto) 63.3 Lymph % (Auto) 21.0 Alger % (Auto) 9.0 Eos % (Auto) 6.2 H Baso % (Auto) 0.5 Neut # (Auto) 8.1 H Lymph # (Auto) 2.7 [place] # (Auto) 1.2 H Eos # (Auto) 0.8 H Baso # (Auto) 0.1 Sodium Potassium Chloride Carbon Dioxide Anion Gap BUN Creatinine Est GFR ( Amer) Est GFR (Non-Af Amer) POC Glucose (mg/dL) 98 Random Glucose Calcium Phosphorus Magnesium Total Bilirubin AST ALT Alkaline Phosphatase Total Protein Albumin Globulin Albumin/Globulin Ratio Assessment/Plan - Assessment and Plan (Free Text) Plan: Patient seen and examined at bedside. No acute events overnight -continue tube feeding as per surgery -continue av prateek deondre -Patient continues to stay on trach collar -aspiration precautions -keep HOB >40 -continue to monitor patient -pending Gi series - Date & Time Date: 05/27/17 Time: 16:00
[2017-05-27] MEDS ORDERED: Iohexol 240 200 ML ONE (13:48)
--- NOTE | 2017-05-27 16:42 | RAD ---
PROCEDURE: Limited small bowel series HISTORY: VOMITING-PERFORM VIA PEJ PLEASE COMPARISON: Not available TECHNIQUE: A limited small bowel series was performed utilizing water soluble contrast material injected through a jejunostomy tube in the right side of the abdomen. A total of 100 cc of water-soluble contrast material was injected under fluoroscopic monitoring. FINDINGS: A milled lumber grader radiograph of the abdomen demonstrates an unremarkable bowel gas pattern. There is small amount of high attenuation material seen within the pelvis, likely within colon, possibly residual of a GI series performed on 05/18/2017. Fluoroscopic spot films obtained during initial administration of contrast material demonstrate flow of contrast material both antegrade and retrograde from the jejunostomy. Subsequent overhead films demonstrate filling of loops of small bowel within the pelvis, likely ileum, with 1 atonic dilated loop of ileum noted measuring up to 6.4 cm in diameter. Films obtained after a roughly 1 hour delay demonstrate oral contrast material likely within the right colon and throughout small bowel. Please note that at no time was contrast material seen to flow into the right abdominal wall ileostomy back. There is persistent appearance of dilated small bowel the midline upper pelvis. . IMPRESSION: No evidence of small-bowel obstruction. Apparently atonic loop of ileum noted in the midline upper pelvis, of uncertain significance.
[2017-05-28] MEDS: Cefepime IV 1 gm in Dextrose 1 GM/50 ML BAG IVPB SCH ×2 (01:00→13:00)
[2017-05-28] MEDS: Metoprolol 1 mg/ml Inj IVP PRN ×2 (05:19→22:06)
[2017-05-28 06:30] LABS: BASO # 0.1 K/uL (0.0-0.2); BASO % 0.7 % (0.0-2.0); EOS # 0.8 K/uL (0.0-0.7); EOS % 5.3 % (0.0-4.0); HEMOGLOBIN 8.3 g/dL (11.0-16.0); LYMPH # 2.8 K/uL (1.0-4.3); LYMPH % 18.8 % (20.0-40.0); MEAN CORPUSCULAR HEMOGLOBIN 28.1 pg (27.0-31.0); MEAN CORPUSCULAR HGB CONC 33.1 g/dL (33.0-37.0); MONO # 1.5 K/uL (0.0-0.8); MONO % 10.4 % (0.0-10.0); NEUT # 9.5 K/uL (1.8-7.0); NEUT % 64.8 % (50.0-75.0); RBC 2.97 Mil/uL (3.80-5.20); RED CELL DISTRIBUTION WIDTH 14.9 % (11.5-14.5); WHITE BLOOD COUNT 14.7 K/uL (4.8-10.8)
[2017-05-28] MEDS: Multiple Vitamins Tab PO SCH (09:22)
[2017-05-28] MEDS: levETIRAcetam 100 mg/ml (5ml) Oral Syringe PO SCH ×2 (09:22→17:34)
--- NOTE | 2017-05-28 12:45 | CP.PCM.PN ---
Subjective - Date & Time of Evaluation Date of Evaluation: 05/28/17 Time of Evaluation: 17:33 - Subjective Subjective: PGY2 Medicine note for Dr. Reyes; all management by Dr. Reyes Patient seen and examined at bedside this AM; cannot offer review of systems 2/ 2 to condition. Objective - Vital Signs/Intake and Output Vital Signs (last 24 hours): Temp Pulse Resp BP Pulse Ox 98.3 F 136 H 19 106/68 98 05/28/17 12:00 05/28/17 12:00 05/28/17 12:00 05/28/17 12:00 05/28/17 12:00 Intake and Output: 05/28/17 05/28/17 06:59 18:59 Intake Total 605 Output Total 400 Balance 205 - Medications Medications: Current Medications Acetaminophen (Tylenol 650mg/20.3ml Solution Ud) 650 mg PO Q4 PRN PRN Reason: Temperature Last Admin: 05/25/17 21:46 Dose: 650 mg Ascorbic Acid (Vitamin C 500 Mg Tab) 500 mg PO DAILY [facility] Last Admin: 05/28/17 09:22 Dose: 500 mg Diltiazem HCl (Cardizem) 60 mg PO TID [facility] Last Admin: 05/28/17 09:22 Dose: 60 mg Ergocalciferol (Drisdol 50,000 Intl Units Cap) 1 cap PO QWK [facility] Last Admin: 05/26/17 10:15 Dose: 1 cap Heparin Sodium (Porcine) (Heparin) 5,000 units SC Q12 [facility] Last Admin: 05/28/17 09:23 Dose: 5,000 units Cefepime HCl (Maxipime Iv 1 Gm Premix) 1 gm in 50 mls @ 100 mls/hr IVPB Q12H [facility] Last Admin: 05/28/17 01:00 Dose: 100 mls/hr Levetiracetam (Keppra) 500 mg PO BID [facility] Last Admin: 05/28/17 09:22 Dose: 500 mg Metoclopramide HCl (Reglan) 10 mg IVP DAILY [facility] Last Admin: 05/28/17 09:22 Dose: 10 mg Metoprolol Tartrate (Lopressor) 5 mg IVP Q4H PRN PRN Reason: Systolic Blood Pressure Last Admin: 05/28/17 05:19 Dose: 5 mg Multivitamins (Hexavitamin) 1 tab PO DAILY [facility] Last Admin: 05/28/17 09:22 Dose: 1 tab Pantoprazole Sodium (Protonix Inj) 40 mg IVP DAILY [facility] Last Admin: 05/28/17 09:22 Dose: 40 mg Quetiapine Fumarate (Seroquel) 200 mg PO BID [facility] Last Admin: 05/28/17 09:22 Dose: 200 mg - Labs Labs: 05/28/17 06:21 05/27/17 06:30 PT 14.0 SECONDS (9.7-12.2) H 04/25/17 06:25 INR 1.2 04/25/17 06:25 APTT 32 SECONDS (21-34) 04/25/17 06:25 - Constitutional Appears: Chronically Ill - Head Exam Head Exam: NORMAL INSPECTION - Eye Exam Eye Exam: Nystagmus, Scleral icterus - ENT Exam ENT Exam: Mucous Membranes Dry - Neck Exam Neck Exam: absent: Full ROM, Lymphadenopathy, Meningismus - Respiratory Exam Respiratory Exam: Rales, Rhonchi. absent: Clear to Ausculation Bilateral, Wheezes, Respiratory Distress, NORMAL BREATHING PATTERN - Cardiovascular Exam Cardiovascular Exam: REGULAR RHYTHM, +S1, +S2 - GI/Abdominal Exam GI & Abdominal Exam: absent: Tenderness, Organomegaly - Rectal Exam Rectal Exam: Deferred - Extremities Exam Extremities Exam: Joint Swelling, Pedal Edema. absent: Calf Tenderness, Full ROM - Back Exam Back Exam: absent: CVA tenderness (L), CVA tenderness (R), NORMAL INSPECTION - Neurological Exam Neurological Exam: absent: Alert, Awake Assessment and Plan - Assessment and Plan (Free Text) Assessment: Patient is a 36 year-old female status post gastrojejunostomy with bypass feeding tube placed with pseudomonal PNA on admission. Psych: Schizophrenia - continue scheduled Seroquel 200mg PO BID - measure QTc and call if >500 Neuro: Seizure disorder - Please continue Keppra 500mg PO BID; missing doses can prompt breakthrough seizures, which can worsen clinical ICU course and directly result in poorer outcomes than anticipated - Metoclopramide 10mg IVP qd Cardio: Tachycardia (persistent), HTN - Cardizem 60mg TID - metoprolol 5mg IV q4h PRN - Provide IVF if BP drops 2/2 Cardizem -keep map above 65 GI: Biliary emesis, constipation -most recent imaging shows no evidence of SBO but small loop of atonic ileum noted; tolerating tube feeds - continue tube feeds as tolerating up to goal of 35cc/hr - continue per surgery recs - d/c accuchecks as blood sugars have been stable and within 140-180 - Ferrlecit 125 mg IVPB x1 - consider transfusions if Hb levels drop below 7 Pulm: PNA; psuedomonas from VAP - tracheal aspiration culture grew Pseudomonas aeruginosa - Cefepime IV 1g @ 100ml/hr IVPB q12h - Trach collar at 40% FiO2, satting 97% -aggressive pulmonary toilet -aspiration precuations head of bed elevated above 30 degrees PPx: DVT, PUD - Continue OOB to chair - Drisdol 50,000 IU 1cap PO qwk - VitC 500mg tab PO qd - Multivitamin: 5ml PO qd - Heparin 5000 U SC q8 - Protonix 40mg IVP qd All management as per Dr. Reyes; case discussed and seen in dept with attending physician.
--- NOTE | 2017-05-28 14:06 | CP.CCUPN ---
CCU Subjective - Physician Review Subjective (Free Text): Patient seen and examined at bedside. Patient with prolonged ICu course with multiple diagnosis, with trach, PEJ, NG tube, Renal failure (requiring HD for few days), sepsis (on cefepime/linezolid), currently getting PJ tube feeds s/p trach CCU Objective - Vital Signs / Intake & Output Vital Signs (Last 4 hours): Vital Signs Temp Pulse Resp BP Pulse Ox 05/28/17 12:00 98.3 F 136 H 19 106/68 98 Intake and Output (Last 8hrs): Intake & Output 05/27/17 05/28/17 05/28/17 22:59 06:59 14:59 Intake Total 175 570 Output Total 400 Balance 175 170 Weight 109 lb 12.643 oz Intake: Intake, IV Amount 100 Left Arm PICC second 100 lumen Tube Feeding 175 420 Other 50 Output: Drainage 100 ileostomy 100 Urine 300 Urine, Voided 300 - Physical Exam Head: Positive for: Atraumatic, Normocephalic. Negative for: Tenderness Pupils: Positive for: PERRL Extroacular Muscles: Positive for: EOMI Mouth: Positive for: Moist Mucous Membranes. Negative for: Dry, Drooling Nose (External): Positive for: Other (NGT in place) Nose (Internal): Positive for: Normal Inspection, Moist Neck: Positive for: Other (trach). Negative for: JVD, Lymphadenopathy Respiratory/Chest: Positive for: Clear to Auscultation. Negative for: Respiratory Distress, Accessory Muscle Use Cardiovascular: Positive for: Regular Rate and Rhythm, Normal S1, S2 Abdomen: Positive for: Tenderness (mild tenderness of palpation. patient continues to move her arms towards hands on palpation), Normal Bowel Sounds. Negative for: Distention, Peritoneal Signs, Guarding Upper Extremity: Positive for: Normal Inspection, Normal ROM, Capillary Refill < 2s. Negative for: Edema Lower Extremity: Positive for: Normal Inspection. Negative for: Edema Neurological: Positive for: CN II-XII Intact Skin: Positive for: Warm, Pale Psychiatric: Positive for: Alert - Medications Active Medications: Active Medications Generic Name Dose Route Start Last Admin Trade Name Freq PRN Reason Stop Dose Admin Acetaminophen 650 mg 04/28/17 20:11 05/25/17 21:46 Tylenol 650mg/20.3ml Solution Ud PO 650 mg Q4 PRN Administration Temperature Ascorbic Acid 500 mg 05/12/17 11:15 05/28/17 09:22 Vitamin C 500 Mg Tab PO 500 mg DAILY AGUSTIN Administration Diltiazem HCl 60 mg 05/23/17 14:00 05/28/17 13:56 Cardizem PO 60 mg TID AGUSTIN Administration Ergocalciferol 1 cap 05/12/17 11:15 05/26/17 10:15 Drisdol 50,000 Intl Units Cap PO 1 cap QWK AGUSTIN Administration Heparin Sodium (Porcine) 5,000 units 05/23/17 22:00 05/28/17 09:23 Heparin SC 5,000 units Q12 AGUSTIN Administration Cefepime HCl 1 gm in 50 mls @ 100 mls/hr 05/24/17 12:00 05/28/17 13:00 Maxipime Iv 1 Gm Premix IVPB 100 mls/hr Q12H AGUSTIN Administration Levetiracetam 500 mg 05/20/17 11:15 05/28/17 09:22 Keppra PO 500 mg BID AGUSTIN Administration Metoclopramide HCl 10 mg 05/12/17 11:00 05/28/17 09:22 Reglan IVP 10 mg DAILY AGUSTIN Administration Metoprolol Tartrate 5 mg 05/20/17 19:40 05/28/17 05:19 Lopressor IVP 5 mg Q4H PRN Administration Systolic Blood Pressure Multivitamins 1 tab 05/17/17 10:00 05/28/17 09:22 Hexavitamin PO 1 tab DAILY AGUSTIN Administration Pantoprazole Sodium 40 mg 05/20/17 11:00 05/28/17 09:22 Protonix Inj IVP 40 mg DAILY AGUSTIN Administration Quetiapine Fumarate 200 mg 05/18/17 11:45 05/28/17 09:22 Seroquel PO 200 mg BID AGUSTIN Administration - Patient Studies Lab Studies: Microbiology Studies 04/28/17 20:00 Blood Fungal Culture - Final Other: Please Indicate Lab Studies 05/28/17 Range/Units 06:21 WBC 14.7 H (4.8-10.8) K/uL RBC 2.97 L (3.80-5.20) Mil/uL Hgb 8.3 L (11.0-16.0) g/dL Hct 25.2 L (34.0-47.0) % MCV 85.0 (81.0-99.0) fL MCH 28.1 (27.0-31.0) pg MCHC 33.1 (33.0-37.0) g/dL RDW 14.9 H (11.5-14.5) % Plt Count 546 H D (130-400) K/uL MPV 9.0 (7.2-11.7) fL Neut % (Auto) 64.8 (50.0-75.0) % Lymph % (Auto) 18.8 L (20.0-40.0) % [place] % (Auto) 10.4 H (0.0-10.0) % Eos % (Auto) 5.3 H (0.0-4.0) % Baso % (Auto) 0.7 (0.0-2.0) % Neut # (Auto) 9.5 H (1.8-7.0) K/uL Lymph # (Auto) 2.8 (1.0-4.3) K/uL [place] # (Auto) 1.5 H (0.0-0.8) K/uL Eos # (Auto) 0.8 H (0.0-0.7) K/uL Baso # (Auto) 0.1 (0.0-0.2) K/uL Laboratory Results - last 24 hr 05/28/17 06:21 WBC 14.7 H RBC 2.97 L Hgb 8.3 L Hct 25.2 L MCV 85.0 MCH 28.1 MCHC 33.1 RDW 14.9 H Plt Count 546 H D MPV 9.0 Neut % (Auto) 64.8 Lymph % (Auto) 18.8 L [place] % (Auto) 10.4 H Eos % (Auto) 5.3 H Baso % (Auto) 0.7 Neut # (Auto) 9.5 H Lymph # (Auto) 2.8 [place] # (Auto) 1.5 H Eos # (Auto) 0.8 H Baso # (Auto) 0.1 Fingerstick Blood Sugar Results: 110 Assessment/Plan - Assessment and Plan (Free Text) Plan: -Schizophrenia :continue Seroquel - measure QTc and call if >500 -h/o Seizure disorder :no seizures in last 24 hours, continue Keppra 500mg PO -SVT/sinus: Tachycardia (persistent), HTN - Cardizem 60mg TID - metoprolol 5mg IV q4h PRN - Provide IVF if BP drops 2/2 Cardizem - Biliary emesis, constipation - continue tube feeds as tolerating up to goal -Lobar PNA -complete abx dosage - Trach collar at 40% FiO2, satting 97% PPx: DVT, PUD - Continue OOB to chair - Drisdol 50,000 IU 1cap PO qwk - VitC 500mg tab PO qd - Multivitamin: 5ml PO qd - Heparin 5000 U SC q8 - Protonix 40mg IVP qd Patient will need PT/OT - Date & Time Date: 05/28/17 Time: 14:06
[2017-05-29] MEDS: Cefepime IV 1 gm in Dextrose 1 GM/50 ML BAG IVPB SCH ×2 (00:35→12:15)
[2017-05-29 06:32] LABS: BASO # 0.1 K/uL (0.0-0.2); BASO % 0.6 % (0.0-2.0); EOS # 0.9 K/uL (0.0-0.7); EOS % 5.1 % (0.0-4.0); HEMOGLOBIN 7.8 g/dL (11.0-16.0); LYMPH # 3.7 K/uL (1.0-4.3); LYMPH % 21.6 % (20.0-40.0); MEAN CORPUSCULAR HEMOGLOBIN 28.2 pg (27.0-31.0); MEAN CORPUSCULAR HGB CONC 33.1 g/dL (33.0-37.0); MEAN PLATELET VOLUME 8.6 fL (7.2-11.7); MONO # 1.7 K/uL (0.0-0.8); NEUT # 10.7 K/uL (1.8-7.0); NEUT % 62.7 % (50.0-75.0); RBC 2.78 Mil/uL (3.80-5.20); RED CELL DISTRIBUTION WIDTH 15.2 % (11.5-14.5)
[2017-05-29 06:47] LABS: ALB/GLOB RATIO 0.8 (1.0-2.1); ALBUMIN 3.4 g/dL (3.5-5.0); ALT/SGPT 46 U/L (9-52); AST/SGOT 34 U/L (14-36); BLOOD UREA NITROGEN 14 mg/dL (7-17); CALCIUM 9.3 mg/dl (8.6-10.4); GFR AFRICAN-AMERICAN > 60; GFR NON-AFRICAN AMERICAN > 60
--- NOTE | 2017-05-29 08:07 | CP.PCM.PN ---
Subjective - Date & Time of Evaluation Date of Evaluation: 05/29/17 Time of Evaluation: 07:25 - Subjective Subjective: General Surgery Dr. Mendez Pt S&E @bedside. NAYO. pt nonverbal. ROS unobtainable. tube feeds running at goal rate. Objective - Vital Signs/Intake and Output Vital Signs (last 24 hours): Temp Pulse Resp BP Pulse Ox 98.2 F 123 H 16 91/61 L 100 05/29/17 04:00 05/29/17 04:00 05/29/17 04:00 05/29/17 04:00 05/29/17 04:00 - Medications Medications: Current Medications Acetaminophen (Tylenol 650mg/20.3ml Solution Ud) 650 mg PO Q4 PRN PRN Reason: Temperature Last Admin: 05/25/17 21:46 Dose: 650 mg Ascorbic Acid (Vitamin C 500 Mg Tab) 500 mg PO DAILY [facility] Last Admin: 05/28/17 09:22 Dose: 500 mg Diltiazem HCl (Cardizem) 60 mg PO TID [facility] Last Admin: 05/28/17 17:34 Dose: 60 mg Ergocalciferol (Drisdol 50,000 Intl Units Cap) 1 cap PO QWK [facility] Last Admin: 05/26/17 10:15 Dose: 1 cap Heparin Sodium (Porcine) (Heparin) 5,000 units SC Q12 [facility] Last Admin: 05/28/17 22:07 Dose: 5,000 units Cefepime HCl (Maxipime Iv 1 Gm Premix) 1 gm in 50 mls @ 100 mls/hr IVPB Q12H [facility] Last Admin: 05/29/17 00:35 Dose: 100 mls/hr Levetiracetam (Keppra) 500 mg PO BID [facility] Last Admin: 05/28/17 17:34 Dose: 500 mg Metoclopramide HCl (Reglan) 10 mg IVP DAILY [facility] Last Admin: 05/28/17 09:22 Dose: 10 mg Metoprolol Tartrate (Lopressor) 5 mg IVP Q4H PRN PRN Reason: Systolic Blood Pressure Last Admin: 05/28/17 22:06 Dose: 5 mg Multivitamins (Hexavitamin) 1 tab PO DAILY [facility] Last Admin: 05/28/17 09:22 Dose: 1 tab Pantoprazole Sodium (Protonix Inj) 40 mg IVP DAILY [facility] Last Admin: 05/28/17 09:22 Dose: 40 mg Quetiapine Fumarate (Seroquel) 200 mg PO BID [facility] Last Admin: 05/28/17 17:34 Dose: 200 mg - Labs Labs: 05/29/17 06:21 05/29/17 06:21 PT 14.0 SECONDS (9.7-12.2) H 04/25/17 06:25 INR 1.2 04/25/17 06:25 APTT 32 SECONDS (21-34) 04/25/17 06:25 - Constitutional Appears: Non-toxic, No Acute Distress - Head Exam Head Exam: NORMAL INSPECTION - Eye Exam Eye Exam: Normal appearance - ENT Exam ENT Exam: Mucous Membranes Moist Additional comments: NGT in place - Neck Exam Additional comments: tracheostomy in place - Respiratory Exam Respiratory Exam: NORMAL BREATHING PATTERN. absent: Accessory Muscle Use, Respiratory Distress - Cardiovascular Exam Cardiovascular Exam: Tachycardia, REGULAR RHYTHM - GI/Abdominal Exam GI & Abdominal Exam: Soft. absent: Distended, Guarding, Tenderness, Rebound Additional comments: ostomy bag w/ liquid stool - Extremities Exam Extremities Exam: Normal Inspection - Neurological Exam Neurological Exam: Alert, Awake - Psychiatric Exam Psychiatric exam: Flat Affect, Normal Mood - Skin Skin Exam: Dry, Normal Color, Warm Assessment and Plan - Assessment and Plan (Free Text) Assessment: 36 y/o F POD#41 s/p gastrojejunostomy w/bypass and feeding jejunostomy, s/p PEJ tube placement by GI - tube feeds at goal via PEJ - bypass reversal not indicated at this time - cont medical management per Critical Care Pt discussed w/ Dr. Andrea Peterson DO PGY2
[2017-05-29] MEDS: levETIRAcetam 100 mg/ml (5ml) Oral Syringe PO SCH ×2 (10:37→17:11)
[2017-05-29] MEDS: Multiple Vitamins Tab PO SCH (10:37)
[2017-05-29] MEDS: Metoprolol 1 mg/ml Inj IVP PRN (10:38)
--- NOTE | 2017-05-29 12:25 | CP.PCM.PN ---
<RaoulKatheryn - Last Filed: 05/29/17 12:23> Subjective - Date & Time of Evaluation Date of Evaluation: 05/29/17 Time of Evaluation: 09:00 - Subjective Subjective: GI Fellow PGY4 Progress Note Pt seen and evaluated at bedside, pt up in chair doing well per nursing staff. Pt tolerating TF at 35cc/hr with no nausea or vomiting. No BM per nursing. ROS: A 12pt ROS was negative except as above Objective - Vital Signs/Intake and Output Vital Signs (last 24 hours): Temp Pulse Resp BP Pulse Ox 98.6 F 132 H 17 112/89 99 05/29/17 12:00 05/29/17 12:12 05/29/17 12:12 05/29/17 12:12 05/29/17 12:12 Intake and Output: 05/29/17 05/29/17 06:59 18:59 Intake Total 370 Output Total 270 Balance 100 - Medications Medications: Current Medications Acetaminophen (Tylenol 650mg/20.3ml Solution Ud) 650 mg PO Q4 PRN PRN Reason: Temperature Last Admin: 05/25/17 21:46 Dose: 650 mg Ascorbic Acid (Vitamin C 500 Mg Tab) 500 mg PO DAILY [facility] Last Admin: 05/29/17 10:37 Dose: 500 mg Diltiazem HCl (Cardizem) 60 mg PO TID [facility] Last Admin: 05/29/17 10:37 Dose: 60 mg Ergocalciferol (Drisdol 50,000 Intl Units Cap) 1 cap PO QWK [facility] Last Admin: 05/26/17 10:15 Dose: 1 cap Heparin Sodium (Porcine) (Heparin) 5,000 units SC Q12H [facility] Levetiracetam (Keppra) 500 mg PO BID [facility] Last Admin: 05/29/17 10:37 Dose: 500 mg Metoclopramide HCl (Reglan) 10 mg IVP DAILY [facility] Last Admin: 05/29/17 10:37 Dose: 10 mg Metoprolol Tartrate (Lopressor) 5 mg IVP Q4H PRN PRN Reason: Systolic Blood Pressure Last Admin: 05/29/17 10:38 Dose: 5 mg Multivitamins (Hexavitamin) 1 tab PO DAILY [facility] Last Admin: 05/29/17 10:37 Dose: 1 tab Pantoprazole Sodium (Protonix Inj) 40 mg IVP DAILY [facility] Last Admin: 05/29/17 10:37 Dose: 40 mg Quetiapine Fumarate (Seroquel) 200 mg PO BID [facility] Last Admin: 05/29/17 10:37 Dose: 200 mg - Labs Labs: 05/29/17 06:21 05/29/17 06:21 PT 14.0 SECONDS (9.7-12.2) H 04/25/17 06:25 INR 1.2 04/25/17 06:25 APTT 32 SECONDS (21-34) 04/25/17 06:25 - Constitutional Appears: Non-toxic, No Acute Distress - Head Exam Head Exam: ATRAUMATIC, NORMAL INSPECTION, NORMOCEPHALIC - Eye Exam Eye Exam: EOMI, Normal appearance, PERRL Pupil Exam: NORMAL ACCOMODATION - ENT Exam ENT Exam: Normal Exam Additional comments: Trach - Neck Exam Neck Exam: Normal Inspection - Respiratory Exam Respiratory Exam: Clear to Ausculation Bilateral, NORMAL BREATHING PATTERN - Cardiovascular Exam Cardiovascular Exam: REGULAR RHYTHM, RRR - GI/Abdominal Exam GI & Abdominal Exam: Soft. 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 1. SMA syndrome 2. PEJ 3. s/p Gastro-jejunostomy Plan: -Continue supportive care with pain control and antiemetics -Tolerating tube feeds at goal -Recommend nutritional reconsult for increasing TF as pt is having loss via ostomy and may need more nutrition -Bowel regimen -Surgery may need to take down of stoma as it serves no purpose with a PEJ -Will continue to follow closely <Dov Meade - Last Filed: 05/29/17 14:46> Objective - Vital Signs/Intake and Output Vital Signs (last 24 hours): Temp Pulse Resp BP Pulse Ox 98.6 F 121 H 12 110/65 100 05/29/17 12:00 05/29/17 13:20 05/29/17 13:20 05/29/17 13:20 05/29/17 13:20 Intake and Output: 05/29/17 05/29/17 06:59 18:59 Intake Total 490 Output Total 470 Balance 20 - Medications Medications: Current Medications Acetaminophen (Tylenol 650mg/20.3ml Solution Ud) 650 mg PO Q4 PRN PRN Reason: Temperature Last Admin: 05/25/17 21:46 Dose: 650 mg Ascorbic Acid (Vitamin C 500 Mg Tab) 500 mg PO DAILY [facility] Last Admin: 05/29/17 10:37 Dose: 500 mg Diltiazem HCl (Cardizem) 60 mg PO Q6H [facility] Ergocalciferol (Drisdol 50,000 Intl Units Cap) 1 cap PO QWK [facility] Last Admin: 05/26/17 10:15 Dose: 1 cap Heparin Sodium (Porcine) (Heparin) 5,000 units SC Q12H [facility] Levetiracetam (Keppra) 500 mg PO BID [facility] Last Admin: 05/29/17 10:37 Dose: 500 mg Metoclopramide HCl (Reglan) 10 mg IVP DAILY [facility] Last Admin: 05/29/17 10:37 Dose: 10 mg Metoprolol Tartrate (Lopressor) 5 mg IVP Q4H PRN PRN Reason: Systolic Blood Pressure Last Admin: 05/29/17 10:38 Dose: 5 mg Multivitamins (Hexavitamin) 1 tab PO DAILY [facility] Last Admin: 05/29/17 10:37 Dose: 1 tab Pantoprazole Sodium (Protonix Inj) 40 mg IVP DAILY [facility] Last Admin: 05/29/17 10:37 Dose: 40 mg Quetiapine Fumarate (Seroquel) 200 mg PO BID [facility] Last Admin: 05/29/17 10:37 Dose: 200 mg - Labs Labs: 05/29/17 06:21 05/29/17 06:21 PT 14.0 SECONDS (9.7-12.2) H 04/25/17 06:25 INR 1.2 04/25/17 06:25 APTT 32 SECONDS (21-34) 04/25/17 06:25 Attending/Attestation - Attestation I have personally seen and examined this patient.: Yes I have fully participated in the care of the patient.: Yes I have reviewed all pertinent clinical information, including history, physical exam and plan: Yes Notes (Text): 05/29/17 14:44 36 year old female who is admitted with SMA syndrome s/p RNY gastrojejunostomy, PEJ, recovering in ICU. 1. SMA syndrome 2. PEJ 3. Malnutrition Plan: -recommend technical rep re-eval to increase tube feedings to higher goal, as currently a portion is coming out of jejunostomy -recommend surgical consideration of reversal of jejenostomy as it no longer serves a purpose and is a source for continued fluid loses and malnutrition
--- NOTE | 2017-05-29 14:10 | CP.PCM.PN ---
Subjective - Date & Time of Evaluation Date of Evaluation: 05/29/17 Time of Evaluation: 14:10 - Subjective Subjective: PGY2 Medicine Note for Dr. Reyes Patient seen and examined at bedside with attending physician; she doesn't allow for any subjective history taking. Objective - Vital Signs/Intake and Output Vital Signs (last 24 hours): Temp Pulse Resp BP Pulse Ox 98.6 F 121 H 12 110/65 100 05/29/17 12:00 05/29/17 13:20 05/29/17 13:20 05/29/17 13:20 05/29/17 13:20 Intake and Output: 05/29/17 05/29/17 06:59 18:59 Intake Total 490 Output Total 470 Balance 20 - Medications Medications: Current Medications Acetaminophen (Tylenol 650mg/20.3ml Solution Ud) 650 mg PO Q4 PRN PRN Reason: Temperature Last Admin: 05/25/17 21:46 Dose: 650 mg Ascorbic Acid (Vitamin C 500 Mg Tab) 500 mg PO DAILY [facility] Last Admin: 05/29/17 10:37 Dose: 500 mg Diltiazem HCl (Cardizem) 60 mg PO Q6H [facility] Ergocalciferol (Drisdol 50,000 Intl Units Cap) 1 cap PO QWK [facility] Last Admin: 05/26/17 10:15 Dose: 1 cap Heparin Sodium (Porcine) (Heparin) 5,000 units SC Q12H [facility] Levetiracetam (Keppra) 500 mg PO BID [facility] Last Admin: 05/29/17 10:37 Dose: 500 mg Metoclopramide HCl (Reglan) 10 mg IVP DAILY [facility] Last Admin: 05/29/17 10:37 Dose: 10 mg Metoprolol Tartrate (Lopressor) 5 mg IVP Q4H PRN PRN Reason: Systolic Blood Pressure Last Admin: 05/29/17 10:38 Dose: 5 mg Multivitamins (Hexavitamin) 1 tab PO DAILY [facility] Last Admin: 05/29/17 10:37 Dose: 1 tab Pantoprazole Sodium (Protonix Inj) 40 mg IVP DAILY [facility] Last Admin: 05/29/17 10:37 Dose: 40 mg Quetiapine Fumarate (Seroquel) 200 mg PO BID [facility] Last Admin: 05/29/17 10:37 Dose: 200 mg - Labs Labs: 05/29/17 06:21 05/29/17 06:21 PT 14.0 SECONDS (9.7-12.2) H 04/25/17 06:25 INR 1.2 04/25/17 06:25 APTT 32 SECONDS (21-34) 04/25/17 06:25 - Head Exam Additional comments: Appears: Chronically Ill - Head Exam Head Exam: NORMAL INSPECTION - Eye Exam Eye Exam: Nystagmus, Scleral icterus - ENT Exam ENT Exam: Mucous Membranes Dry - Neck Exam Neck Exam: absent: Full ROM, Lymphadenopathy, Meningismus - Respiratory Exam Respiratory Exam: Rales, Rhonchi. absent: Clear to Ausculation Bilateral, Wheezes, Respiratory Distress, NORMAL BREATHING PATTERN - Cardiovascular Exam Cardiovascular Exam: REGULAR RHYTHM, +S1, +S2 - GI/Abdominal Exam GI & Abdominal Exam: absent: Tenderness, Organomegaly - Rectal Exam Rectal Exam: Deferred - Extremities Exam Extremities Exam: Joint Swelling, Pedal Edema. absent: Calf Tenderness, Full ROM - Back Exam Back Exam: absent: CVA tenderness (L), CVA tenderness (R), NORMAL INSPECTION - Neurological Exam Neurological Exam: absent: Alert, Awake Assessment and Plan - Assessment and Plan (Free Text) Assessment: Patient is a 36 year-old female status post gastrojejunostomy with bypass feeding tube placed with pseudomonal PNA on admission. Psych: Schizophrenia - continue scheduled Seroquel 200mg PO BID - measure QTc and call if >500 Neuro: Seizure disorder - Please continue Keppra 500mg PO BID; missing doses can prompt breakthrough seizures, which can worsen clinical ICU course and directly result in poorer outcomes than anticipated - Metoclopramide 10mg IVP qd Cardio: Tachycardia (persistent), HTN - Cardizem 60mg TID - metoprolol 5mg IV q4h PRN - Provide IVF if BP drops 2/2 Cardizem -keep map above 65 GI: Biliary emesis, constipation -most recent imaging shows no evidence of SBO but small loop of atonic ileum noted; tolerating tube feeds - continue tube feeds as tolerating up to goal of 35cc/hr - continue per surgery recs - d/c accuchecks as blood sugars have been stable and within 140-180 - Ferrlecit 125 mg IVPB x1 - consider transfusions if Hb levels drop below 7 Pulm: PNA; psuedomonas from VAP - tracheal aspiration culture grew Pseudomonas aeruginosa - Cefepime IV 1g @ 100ml/hr IVPB q12h - Trach collar at 40% FiO2, satting 97% -aggressive pulmonary toilet -aspiration precuations head of bed elevated above 30 degrees PPx: DVT, PUD - Continue OOB to chair - Drisdol 50,000 IU 1cap PO qwk - VitC 500mg tab PO qd - Multivitamin: 5ml PO qd - Heparin 5000 U SC q8 - Protonix 40mg IVP qd All management as per Dr. Reyes; case discussed and seen in dept with attending physician. Dispo: if patient is tolerating tube feeds well patient can go back to [facility] [place] and [facility] as per Dr. Reyes
[2017-05-30 06:24] LABS: BASO # 0.1 K/uL (0.0-0.2); BASO % 0.5 % (0.0-2.0); EOS # 0.9 K/uL (0.0-0.7); EOS % 7.2 % (0.0-4.0); HEMOGLOBIN 8.2 g/dL (11.0-16.0); LYMPH # 3.8 K/uL (1.0-4.3); MEAN CELL VOLUME 84.7 fL (81.0-99.0); MEAN CORPUSCULAR HEMOGLOBIN 27.6 pg (27.0-31.0); MEAN CORPUSCULAR HGB CONC 32.6 g/dL (33.0-37.0); MEAN PLATELET VOLUME 8.7 fL (7.2-11.7); MONO # 1.3 K/uL (0.0-0.8); MONO % 10.6 % (0.0-10.0); NEUT # 6.1 K/uL (1.8-7.0); NEUT % 50.7 % (50.0-75.0); NRBC % 0.1 % (0.0-2.0); RBC 2.96 Mil/uL (3.80-5.20); RED CELL DISTRIBUTION WIDTH 15.2 % (11.5-14.5); WHITE BLOOD COUNT 12.1 K/uL (4.8-10.8)
[2017-05-30 06:45] LABS: ALB/GLOB RATIO 0.9 (1.0-2.1); ALBUMIN 3.4 g/dL (3.5-5.0); ALT/SGPT 62 U/L (9-52); AST/SGOT 58 U/L (14-36); BLOOD UREA NITROGEN 16 mg/dL (7-17); CALCIUM 9.5 mg/dl (8.6-10.4); GFR AFRICAN-AMERICAN > 60; GFR NON-AFRICAN AMERICAN > 60
--- NOTE | 2017-05-30 09:49 | CP.PCM.PN ---
Subjective - Date & Time of Evaluation Date of Evaluation: 05/30/17 Time of Evaluation: 07:00 - Subjective Subjective: General Surgery- Dr. Mendez Patient seen and examined at bedside this AM. Pt pulled of jejunostomy bag site. having 150cc tube feeds coming out of the Jejunostomey site. + bowel movements. Current at target feeding goal. Objective - Vital Signs/Intake and Output Vital Signs (last 24 hours): Temp Pulse Resp BP Pulse Ox 98.2 F 124 H 12 117/56 L 100 05/30/17 08:00 05/30/17 08:11 05/30/17 08:11 05/30/17 08:11 05/30/17 08:11 Intake and Output: 05/30/17 05/30/17 06:59 18:59 Intake Total 435 Output Total 500 Balance -65 - Medications Medications: Current Medications Acetaminophen (Tylenol 650mg/20.3ml Solution Ud) 650 mg PO Q4 PRN PRN Reason: Temperature Last Admin: 05/25/17 21:46 Dose: 650 mg Ascorbic Acid (Vitamin C 500 Mg Tab) 500 mg PO DAILY [facility] Last Admin: 05/29/17 10:37 Dose: 500 mg Diltiazem HCl (Cardizem) 60 mg PO Q6H [facility] Last Admin: 05/30/17 08:38 Dose: 60 mg Ergocalciferol (Drisdol 50,000 Intl Units Cap) 1 cap PO QWK [facility] Last Admin: 05/26/17 10:15 Dose: 1 cap Heparin Sodium (Porcine) (Heparin) 5,000 units SC Q12H [facility] Last Admin: 05/29/17 22:23 Dose: 5,000 units Levetiracetam (Keppra) 500 mg PO BID [facility] Last Admin: 05/29/17 17:11 Dose: 500 mg Metoclopramide HCl (Reglan) 10 mg IVP DAILY [facility] Last Admin: 05/29/17 10:37 Dose: 10 mg Metoprolol Tartrate (Lopressor) 5 mg IVP Q4H PRN PRN Reason: Systolic Blood Pressure Last Admin: 05/29/17 10:38 Dose: 5 mg Multivitamins (Hexavitamin) 1 tab PO DAILY [facility] Last Admin: 05/29/17 10:37 Dose: 1 tab Pantoprazole Sodium (Protonix Inj) 40 mg IVP DAILY [facility] Last Admin: 02/18/18 10:37 Dose: 40 mg Quetiapine Fumarate (Seroquel) 200 mg PO BID [facility] Last Admin: 05/29/17 17:11 Dose: 200 mg - Labs Labs: 05/30/17 06:17 05/30/17 06:13 PT 14.0 SECONDS (9.7-12.2) H 04/25/17 06:25 INR 1.2 04/25/17 06:25 APTT 32 SECONDS (21-34) 04/25/17 06:25 - Constitutional Appears: Non-toxic, No Acute Distress - Head Exam Head Exam: ATRAUMATIC - Eye Exam Eye Exam: EOMI. absent: Scleral icterus - ENT Exam ENT Exam: Mucous Membranes Moist - Respiratory Exam Respiratory Exam: absent: Accessory Muscle Use, Respiratory Distress Additional comments: Trach collar - Cardiovascular Exam Cardiovascular Exam: Tachycardia, +S1, +S2. absent: Bradycardia - GI/Abdominal Exam GI & Abdominal Exam: Soft. absent: Firm, Guarding, Rigid, Tenderness Additional comments: PEJ site receiving tube feeds output via jejunostomey site - Neurological Exam Neurological Exam: Awake - Psychiatric Exam Additional comments: aphasic - Skin Skin Exam: Intact, Warm Assessment and Plan - Assessment and Plan (Free Text) Assessment: 36 y/o F POD#42 s/p gastrojejunostomy w/bypass and feeding jejunostomy, s/p PEJ tube placement by GI Plan: - tube feeds at goal via PEJ - bypass reversal not indicated at this time - cont medical management per Critical Care Pt discussed w/ Dr. Andrea Griffin PGY1
[2017-05-30] MEDS: Multiple Vitamins Tab PO SCH (10:14)
[2017-05-30] MEDS: levETIRAcetam 100 mg/ml (5ml) Oral Syringe PO SCH ×2 (10:14→17:18)
--- NOTE | 2017-05-30 12:18 | CP.CCUPN ---
CCU Subjective - Physician Review Events Since Last Encounter (Free Text): 05/30/17 12:17 Patient seen and examined at bedside. Per nursing no acute events occurred overnight. Subjective (Free Text): 05/24/17 11:29 Patient seen and examined at bedside. ROS unobtainable due to acuity of condition. 05/27/17 12:40 Patient seen and examined at bedside this A.M. Critical Care Time Spent (in minutes): 40 CCU Objective - Vital Signs / Intake & Output Intake and Output (Last 8hrs): Intake & Output 05/29/17 05/30/17 05/30/17 22:59 06:59 14:59 Intake Total 395 330 340 Output Total 120 500 100 Balance 275 -170 240 Weight 109 lb 8 oz Intake: Intake, IV Amount 50 0 Left Distal Port PICC 0 0 Left PICC Proximal Port 50 0 Oral 100 200 Tube Feeding 245 280 140 Other 50 Output: Drainage 120 150 50 ileostomy 120 150 50 Urine 350 50 Urine, Voided 350 50 Other: # Voids Urine, Voided 0 0 # Bowel Movements 0 0 0 - Physical Exam Head: Positive for: Atraumatic, Normocephalic. Negative for: Tenderness Pupils: Positive for: PERRL Extroacular Muscles: Positive for: EOMI Mouth: Positive for: Moist Mucous Membranes. Negative for: Dry, Drooling Nose (External): Positive for: Other (NGT in place) Nose (Internal): Positive for: Normal Inspection, Moist Neck: Positive for: Other (trach). Negative for: JVD, Lymphadenopathy Respiratory/Chest: Positive for: Clear to Auscultation. Negative for: Respiratory Distress, Accessory Muscle Use Cardiovascular: Positive for: Regular Rate and Rhythm, Normal S1, S2 Abdomen: Positive for: Tenderness (mild tenderness of palpation. patient continues to move her arms towards hands on palpation), Normal Bowel Sounds. Negative for: Distention, Peritoneal Signs, Guarding Upper Extremity: Positive for: Normal Inspection, Normal ROM, Capillary Refill < 2s. Negative for: Edema Lower Extremity: Positive for: Normal Inspection. Negative for: Edema Neurological: Positive for: CN II-XII Intact Skin: Positive for: Warm, Pale Psychiatric: Positive for: Alert - Medications Active Medications: Active Medications Generic Name Dose Route Start Last Admin Trade Name Freq PRN Reason Stop Dose Admin Acetaminophen 650 mg 04/28/17 20:11 05/25/17 21:46 Tylenol 650mg/20.3ml Solution Ud PO 650 mg Q4 PRN Administration Temperature Ascorbic Acid 500 mg 05/12/17 11:15 05/30/17 10:14 Vitamin C 500 Mg Tab PO 500 mg DAILY AGUSTIN Administration Ergocalciferol 1 cap 05/12/17 11:15 05/26/17 10:15 Drisdol 50,000 Intl Units Cap PO 1 cap QWK AGUSTIN Administration Heparin Sodium (Porcine) 5,000 units 05/29/17 22:00 05/30/17 10:14 Heparin SC 5,000 units Q12H AGUSTIN Administration Levetiracetam 500 mg 05/20/17 11:15 05/30/17 10:14 Keppra PO 500 mg BID AGUSTIN Administration Metoclopramide HCl 10 mg 05/12/17 11:00 05/30/17 10:15 Reglan IVP 10 mg DAILY AGUSTIN Administration Metoprolol Tartrate 5 mg 05/20/17 19:40 05/29/17 10:38 Lopressor IVP 5 mg Q4H PRN Administration Systolic Blood Pressure Metoprolol Tartrate 50 mg 05/30/17 18:00 Lopressor PO BID AGUSTIN Multivitamins 1 tab 05/17/17 10:00 05/30/17 10:14 Hexavitamin PO 1 tab DAILY AGUSTIN Administration Pantoprazole Sodium 40 mg 05/20/17 11:00 05/30/17 10:14 Protonix Inj IVP 40 mg DAILY AGUSTIN Administration Quetiapine Fumarate 200 mg 05/18/17 11:45 05/30/17 10:15 Seroquel PO 200 mg BID AGUSTIN Administration - Patient Studies Lab Studies: Lab Studies 05/30/17 05/30/17 Range/Units 06:17 06:13 WBC 12.1 H (4.8-10.8) K/uL RBC 2.96 L (3.80-5.20) Mil/uL Hgb 8.2 L (11.0-16.0) g/dL Hct 25.1 L (34.0-47.0) % MCV 84.7 (81.0-99.0) fL MCH 27.6 (27.0-31.0) pg MCHC 32.6 L (33.0-37.0) g/dL RDW 15.2 H (11.5-14.5) % Plt Count 605 H (130-400) K/uL MPV 8.7 (7.2-11.7) fL Neut % (Auto) 50.7 (50.0-75.0) % Lymph % (Auto) 31.0 (20.0-40.0) % [place] % (Auto) 10.6 H (0.0-10.0) % Eos % (Auto) 7.2 H (0.0-4.0) % Baso % (Auto) 0.5 (0.0-2.0) % Neut # (Auto) 6.1 (1.8-7.0) K/uL Lymph # (Auto) 3.8 (1.0-4.3) K/uL [place] # (Auto) 1.3 H (0.0-0.8) K/uL Eos # (Auto) 0.9 H (0.0-0.7) K/uL Baso # (Auto) 0.1 (0.0-0.2) K/uL Sodium 135 (132-148) mmol/L Potassium 4.3 (3.6-5.2) mmol/L Chloride 97 L (98-107) mmol/L Carbon Dioxide 26 (22-30) mmol/L Anion Gap 17 (10-20) BUN 16 (7-17) mg/dL Creatinine 0.5 L (0.7-1.2) mg/dL Est GFR ( Amer) > 60 Est GFR (Non-Af Amer) > 60 Random Glucose 96 (65-105) mg/dL Calcium 9.5 (8.6-10.4) mg/dl Phosphorus 4.9 H (2.5-4.5) mg/dL Magnesium 1.7 (1.6-2.3) mg/dL Total Bilirubin 0.3 (0.2-1.3) mg/dL AST 58 H D (14-36) U/L ALT 62 H D (9-52) U/L Alkaline Phosphatase 357 H D (38-126) U/L Total Protein 7.3 (6.3-8.3) g/dL Albumin 3.4 L (3.5-5.0) g/dL Globulin 3.9 (2.2-3.9) gm/dL Albumin/Globulin Ratio 0.9 L (1.0-2.1) Laboratory Results - last 24 hr 05/30/17 05/30/17 06:13 06:17 WBC 12.1 H RBC 2.96 L Hgb 8.2 L Hct 25.1 L MCV 84.7 MCH 27.6 MCHC 32.6 L RDW 15.2 H Plt Count 605 H MPV 8.7 Neut % (Auto) 50.7 Lymph % (Auto) 31.0 [place] % (Auto) 10.6 H Eos % (Auto) 7.2 H Baso % (Auto) 0.5 Neut # (Auto) 6.1 Lymph # (Auto) 3.8 [place] # (Auto) 1.3 H Eos # (Auto) 0.9 H Baso # (Auto) 0.1 Sodium 135 Potassium 4.3 Chloride 97 L Carbon Dioxide 26 Anion Gap 17 BUN 16 Creatinine 0.5 L Est GFR ( Amer) > 60 Est GFR (Non-Af Amer) > 60 Random Glucose 96 Calcium 9.5 Phosphorus 4.9 H Magnesium 1.7 Total Bilirubin 0.3 AST 58 H D ALT 62 H D Alkaline Phosphatase 357 H D Total Protein 7.3 Albumin 3.4 L Globulin 3.9 Albumin/Globulin Ratio 0.9 L Fingerstick Blood Sugar Results: 110 Assessment/Plan - Assessment and Plan (Free Text) Assessment: Patient is a 36 year-old female, post-operative day #41 status post gastrojejunostomy with bypass feeding tube placed. Her past medical history includes acute pancreatitis, sepsis, renal insufficiency, and schizophrenia. She is currently being treated for Pseudomonas infection grew out of tracheal aspirations. Plan: Psychiatry: Schizophrenia - Please continue scheduled Seroquel 200mg PO BID - measure QTc and call if >500 Neurology: Seizure disorder - Please continue Keppra 500mg PO BID; missing doses can prompt breakthrough seizures, which can worsen clinical ICU course and directly result in poorer outcomes than anticipated - Metoclopramide 10mg IVP qd Cardiology: Tachycardia (persistent), HTN - Cardizem 60mg TID discontinued. Metoprolol Tartate 50 mg BID - metoprolol 5mg IV q4h PRN - Provide IVF if BP drops 2/2 Cardizem GI: Biliary emesis, constipation - continue tube feeds as tolerating up to goal of 35cc/hr - continue per surgery recs after small bowel follow thru per PEJ today 05/27 to asses patency of jejunostomy; per GI, consider revising ostomy pending results - Dulcolax 10mg ID qd PRN - consider transfusions if Hb levels drop below 7 and corroborate clinical picture Pulm: PNA - tracheal aspiration culture grew Pseudomonas aeruginosa - Cefepime IV 1g @ 100ml/hr IVPB q12h - Trach collar at 40% FiO2, satting 97% PPx: DVT, PUD - Continue OOB to chair - Drisdol 50,000 IU 1cap PO qwk - VitC 500mg tab PO qd - Multivitamin: 5ml PO qd - Heparin 5000 U SC q8 - Protonix 40mg IVP qd
[2017-05-31] MEDS: Metoprolol 1 mg/ml Inj IVP PRN (06:44)
[2017-05-31 06:47] LABS: BASO # 0.1 K/uL (0.0-0.2); BASO % 0.7 % (0.0-2.0); EOS # 0.7 K/uL (0.0-0.7); EOS % 4.1 % (0.0-4.0); HEMOGLOBIN 8.6 g/dL (11.0-16.0); LYMPH # 4.6 K/uL (1.0-4.3); LYMPH % 28.1 % (20.0-40.0); MEAN CELL VOLUME 84.4 fL (81.0-99.0); MEAN CORPUSCULAR HEMOGLOBIN 27.9 pg (27.0-31.0); MEAN CORPUSCULAR HGB CONC 33.1 g/dL (33.0-37.0); MEAN PLATELET VOLUME 8.4 fL (7.2-11.7); MONO # 1.4 K/uL (0.0-0.8); MONO % 8.9 % (0.0-10.0); NEUT # 9.4 K/uL (1.8-7.0); NEUT % 58.2 % (50.0-75.0); NRBC % 0.1 % (0.0-2.0); RBC 3.08 Mil/uL (3.80-5.20); RED CELL DISTRIBUTION WIDTH 15.5 % (11.5-14.5); WHITE BLOOD COUNT 16.2 K/uL (4.8-10.8)
[2017-05-31 07:04] LABS: ALB/GLOB RATIO 0.8 (1.0-2.1); ALBUMIN 3.6 g/dL (3.5-5.0); ALT/SGPT 94 U/L (9-52); AST/SGOT 55 U/L (14-36); BLOOD UREA NITROGEN 18 mg/dL (7-17); CALCIUM 9.9 mg/dl (8.6-10.4); GFR AFRICAN-AMERICAN > 60; GFR NON-AFRICAN AMERICAN > 60
[2017-05-31] MEDS: levETIRAcetam 100 mg/ml (5ml) Oral Syringe PO SCH ×2 (09:36→17:25)
[2017-05-31] MEDS: Multiple Vitamins Tab PO SCH (09:37)
--- NOTE | 2017-05-31 11:46 | CP.CCUPN ---
<Ponce Meeks - Last Filed: 05/31/17 11:48> CCU Subjective - Physician Review Events Since Last Encounter (Free Text): 05/31/17 11:45 Patient seen and examined at bedside. Per nursing no acute events occurred overnight. Subjective (Free Text): 05/24/17 11:29 Patient seen and examined at bedside. ROS unobtainable due to acuity of condition. 05/27/17 12:40 Patient seen and examined at bedside this A.M. Critical Care Time Spent (in minutes): 40 CCU Objective - Vital Signs / Intake & Output Vital Signs (Last 4 hours): Vital Signs Temp Pulse Resp BP Pulse Ox 05/31/17 10:07 120 H 19 95/67 L 100 05/31/17 10:00 156 H 17 98 05/31/17 08:05 126 H 22 125/72 100 05/31/17 08:00 98.5 F 122 H 19 100 Intake and Output (Last 8hrs): Intake & Output 05/30/17 05/31/17 05/31/17 22:59 06:59 14:59 Intake Total 380 340 290 Output Total 250 550 1 Balance 130 -210 289 Weight 111 lb 8.862 oz Intake: Intake, IV Amount 0 0 Left Distal Port PICC 0 0 Left PICC Proximal Port 0 0 Oral 100 Tube Feeding 280 280 140 Other 60 150 Output: Drainage 100 500 ileostomy 100 500 Urine 150 50 Urine, Voided 150 50 Urine/Stool Mix 1 Oral Regurgitation 0 Other: # Voids Urine, Voided 0 0 1 # Bowel Movements 0 0 1 - Physical Exam Head: Positive for: Atraumatic, Normocephalic. Negative for: Tenderness Pupils: Positive for: PERRL Extroacular Muscles: Positive for: EOMI Mouth: Positive for: Moist Mucous Membranes. Negative for: Dry, Drooling Nose (External): Positive for: Other (NGT in place) Nose (Internal): Positive for: Normal Inspection, Moist Neck: Positive for: Other (trach). Negative for: JVD, Lymphadenopathy Respiratory/Chest: Positive for: Clear to Auscultation. Negative for: Respiratory Distress, Accessory Muscle Use Cardiovascular: Positive for: Regular Rate and Rhythm, Normal S1, S2 Abdomen: Positive for: Tenderness (mild tenderness of palpation. patient continues to move her arms towards hands on palpation), Normal Bowel Sounds. Negative for: Distention, Peritoneal Signs, Guarding Upper Extremity: Positive for: Normal Inspection, Normal ROM, Capillary Refill < 2s. Negative for: Edema Lower Extremity: Positive for: Normal Inspection. Negative for: Edema Neurological: Positive for: CN II-XII Intact Skin: Positive for: Warm, Pale Psychiatric: Positive for: Alert - Medications Active Medications: Active Medications Generic Name Dose Route Start Last Admin Trade Name Freq PRN Reason Stop Dose Admin Acetaminophen 650 mg 04/28/17 20:11 05/25/17 21:46 Tylenol 650mg/20.3ml Solution Ud PO 650 mg Q4 PRN Administration Temperature Ascorbic Acid 500 mg 05/12/17 11:15 05/31/17 09:37 Vitamin C 500 Mg Tab PO 500 mg DAILY AGUSTIN Administration Ergocalciferol 1 cap 05/12/17 11:15 05/26/17 10:15 Drisdol 50,000 Intl Units Cap PO 1 cap QWK AGUSTIN Administration Heparin Sodium (Porcine) 5,000 units 05/29/17 22:00 05/31/17 09:37 Heparin SC 5,000 units Q12H AGUSTIN Administration Levetiracetam 500 mg 05/20/17 11:15 05/31/17 09:36 Keppra PO 500 mg BID AGUSTIN Administration Metoclopramide HCl 10 mg 05/12/17 11:00 05/31/17 09:36 Reglan IVP 10 mg DAILY AGUSTIN Administration Metoprolol Tartrate 5 mg 05/20/17 19:40 05/31/17 06:44 Lopressor IVP 5 mg Q4H PRN Administration Systolic Blood Pressure Metoprolol Tartrate 50 mg 05/30/17 18:00 05/31/17 09:37 Lopressor PO 50 mg BID AGUSTIN Administration Multivitamins 1 tab 05/17/17 10:00 05/31/17 09:37 Hexavitamin PO 1 tab DAILY AGUSTIN Administration Pantoprazole Sodium 40 mg 05/20/17 11:00 05/31/17 09:36 Protonix Inj IVP 40 mg DAILY AGUSTIN Administration Quetiapine Fumarate 200 mg 05/18/17 11:45 05/31/17 09:37 Seroquel PO 200 mg BID AGUSTIN Administration - Patient Studies Lab Studies: Lab Studies 05/31/17 05/31/17 Range/Units 06:45 06:45 WBC 16.2 H (4.8-10.8) K/uL RBC 3.08 L (3.80-5.20) Mil/uL Hgb 8.6 L (11.0-16.0) g/dL Hct 26.0 L (34.0-47.0) % MCV 84.4 (81.0-99.0) fL MCH 27.9 (27.0-31.0) pg MCHC 33.1 (33.0-37.0) g/dL RDW 15.5 H (11.5-14.5) % Plt Count 625 H (130-400) K/uL MPV 8.4 (7.2-11.7) fL Neut % (Auto) 58.2 (50.0-75.0) % Lymph % (Auto) 28.1 (20.0-40.0) % [place] % (Auto) 8.9 (0.0-10.0) % Eos % (Auto) 4.1 H (0.0-4.0) % Baso % (Auto) 0.7 (0.0-2.0) % Neut # (Auto) 9.4 H (1.8-7.0) K/uL Lymph # (Auto) 4.6 H (1.0-4.3) K/uL [place] # (Auto) 1.4 H (0.0-0.8) K/uL Eos # (Auto) 0.7 (0.0-0.7) K/uL Baso # (Auto) 0.1 (0.0-0.2) K/uL Differential Comment Sodium 137 (132-148) mmol/L Potassium 4.6 (3.6-5.2) mmol/L Chloride 94 L (98-107) mmol/L Carbon Dioxide 29 (22-30) mmol/L Anion Gap 18 (10-20) BUN 18 H (7-17) mg/dL Creatinine 0.5 L (0.7-1.2) mg/dL Est GFR ( Amer) > 60 Est GFR (Non-Af Amer) > 60 Random Glucose 95 (65-105) mg/dL Calcium 9.9 (8.6-10.4) mg/dl Phosphorus 4.7 H (2.5-4.5) mg/dL Magnesium 1.9 (1.6-2.3) mg/dL Total Bilirubin 0.4 (0.2-1.3) mg/dL AST 55 H (14-36) U/L ALT 94 H D (9-52) U/L Alkaline Phosphatase 398 H (38-126) U/L Total Protein 8.1 (6.3-8.3) g/dL Albumin 3.6 (3.5-5.0) g/dL Globulin 4.5 H (2.2-3.9) gm/dL Albumin/Globulin Ratio 0.8 L (1.0-2.1) Laboratory Results - last 24 hr 05/31/17 05/31/17 06:45 06:45 WBC 16.2 H RBC 3.08 L Hgb 8.6 L Hct 26.0 L MCV 84.4 MCH 27.9 MCHC 33.1 RDW 15.5 H Plt Count 625 H MPV 8.4 Neut % (Auto) 58.2 Lymph % (Auto) 28.1 [place] % (Auto) 8.9 Eos % (Auto) 4.1 H Baso % (Auto) 0.7 Neut # (Auto) 9.4 H Lymph # (Auto) 4.6 H [place] # (Auto) 1.4 H Eos # (Auto) 0.7 Baso # (Auto) 0.1 Differential Comment Sodium 137 Potassium 4.6 Chloride 94 L Carbon Dioxide 29 Anion Gap 18 BUN 18 H Creatinine 0.5 L Est GFR ( Amer) > 60 Est GFR (Non-Af Amer) > 60 Random Glucose 95 Calcium 9.9 Phosphorus 4.7 H Magnesium 1.9 Total Bilirubin 0.4 AST 55 H ALT 94 H D Alkaline Phosphatase 398 H Total Protein 8.1 Albumin 3.6 Globulin 4.5 H Albumin/Globulin Ratio 0.8 L Fingerstick Blood Sugar Results: 110 Review of Systems - Review of Systems Systems not reviewed;Unavailable: Acuity of Condition Assessment/Plan - Assessment and Plan (Free Text) Assessment: Patient is a 36 year-old female, post-operative day #43 status post gastrojejunostomy with bypass feeding tube placed. Her past medical history includes acute pancreatitis, sepsis, renal insufficiency, and schizophrenia. She is currently beginning ambulation therapy with PT and OT and will be cleared medically for transfer pending placement shortly. Plan: Psych: Schizophrenia - Seroquel 200mg PO BID - measure QTc and call if >500 Neuro: Seizure disorder - Keppra 500mg PO BID - Metoclopramide 10mg IVP qd Cards: Tachycardia (persistent), HTN - Cardizem 50mg PO BID - metoprolol 5mg IV q4h PRN GI: Biliary emesis, constipation (resolved) - tolerating tube feeds at target goal - not vomiting - surgery does not recommend revising jejunostomy -small bowel series was negative for obstruction - +BM this AM Pulm: PNA - Trach collar at 40% FiO2, satting 97% PPx: DVT, PUD - Continue PT/OT - Drisdol 50,000 IU 1cap PO qwk - VitC 500mg tab PO qd - Multivitamin: 5ml PO qd - Heparin 5000 U SC q8 - Protonix 40mg IVP qd <Jose Hernandez - Last Filed: 05/31/17 17:47> CCU Objective - Vital Signs / Intake & Output Vital Signs (Last 4 hours): Vital Signs Temp Pulse Resp BP Pulse Ox 05/31/17 16:06 130 H 19 111/73 97 05/31/17 16:00 98.2 F 124 H 18 97 05/31/17 14:05 120 H 14 103/64 100 05/31/17 14:00 120 H 18 100 Intake and Output (Last 8hrs): Intake & Output 05/31/17 05/31/17 05/31/17 06:59 14:59 22:59 Intake Total 340 430 105 Output Total 550 1 Balance -210 429 105 Weight 111 lb 8.862 oz Intake: Intake, IV Amount 0 Left Distal Port PICC 0 Left PICC Proximal Port 0 Tube Feeding 280 280 105 Other 60 150 Output: Drainage 500 ileostomy 500 Urine 50 0 Urine, Voided 50 0 Stool 0 Urine/Stool Mix 1 Oral Regurgitation 0 Other: # Voids Urine, Voided 0 0 0 # Bowel Movements 0 0 0 - Medications Active Medications: Active Medications Generic Name Dose Route Start Last Admin Trade Name Freq PRN Reason Stop Dose Admin Acetaminophen 650 mg 04/28/17 20:11 05/25/17 21:46 Tylenol 650mg/20.3ml Solution Ud PO 650 mg Q4 PRN Administration Temperature Ascorbic Acid 500 mg 05/12/17 11:15 05/31/17 09:37 Vitamin C 500 Mg Tab PO 500 mg DAILY AGUSTIN Administration Ergocalciferol 1 cap 05/12/17 11:15 05/26/17 10:15 Drisdol 50,000 Intl Units Cap PO 1 cap QWK AGUSTIN Administration Heparin Sodium (Porcine) 5,000 units 05/29/17 22:00 05/31/17 09:37 Heparin SC 5,000 units Q12H AGUSTIN Administration Levetiracetam 500 mg 05/20/17 11:15 05/31/17 17:25 Keppra PO 500 mg BID AGUSTIN Administration Metoclopramide HCl 10 mg 05/12/17 11:00 05/31/17 09:36 Reglan IVP 10 mg DAILY AGUSTIN Administration Metoprolol Tartrate 5 mg 05/20/17 19:40 05/31/17 06:44 Lopressor IVP 5 mg Q4H PRN Administration Systolic Blood Pressure Metoprolol Tartrate 50 mg 05/30/17 18:00 05/31/17 17:25 Lopressor PO 50 mg BID AGUSTIN Administration Multivitamins 1 tab 05/17/17 10:00 05/31/17 09:37 Hexavitamin PO 1 tab DAILY AGUSTIN Administration Pantoprazole Sodium 40 mg 05/20/17 11:00 05/31/17 09:36 Protonix Inj IVP 40 mg DAILY AGUSTIN Administration Quetiapine Fumarate 200 mg 05/18/17 11:45 05/31/17 17:25 Seroquel PO 200 mg BID AGUSTIN Administration - Patient Studies Lab Studies: Lab Studies 05/31/17 05/31/17 Range/Units 06:45 06:45 WBC 16.2 H (4.8-10.8) K/uL RBC 3.08 L (3.80-5.20) Mil/uL Hgb 8.6 L (11.0-16.0) g/dL Hct 26.0 L (34.0-47.0) % MCV 84.4 (81.0-99.0) fL MCH 27.9 (27.0-31.0) pg MCHC 33.1 (33.0-37.0) g/dL RDW 15.5 H (11.5-14.5) % Plt Count 625 H (130-400) K/uL MPV 8.4 (7.2-11.7) fL Neut % (Auto) 58.2 (50.0-75.0) % Lymph % (Auto) 28.1 (20.0-40.0) % [place] % (Auto) 8.9 (0.0-10.0) % Eos % (Auto) 4.1 H (0.0-4.0) % Baso % (Auto) 0.7 (0.0-2.0) % Neut # (Auto) 9.4 H (1.8-7.0) K/uL Lymph # (Auto) 4.6 H (1.0-4.3) K/uL [place] # (Auto) 1.4 H (0.0-0.8) K/uL Eos # (Auto) 0.7 (0.0-0.7) K/uL Baso # (Auto) 0.1 (0.0-0.2) K/uL Differential Comment Sodium 137 (132-148) mmol/L Potassium 4.6 (3.6-5.2) mmol/L Chloride 94 L (98-107) mmol/L Carbon Dioxide 29 (22-30) mmol/L Anion Gap 18 (10-20) BUN 18 H (7-17) mg/dL Creatinine 0.5 L (0.7-1.2) mg/dL Est GFR ( Amer) > 60 Est GFR (Non-Af Amer) > 60 Random Glucose 95 (65-105) mg/dL Calcium 9.9 (8.6-10.4) mg/dl Phosphorus 4.7 H (2.5-4.5) mg/dL Magnesium 1.9 (1.6-2.3) mg/dL Total Bilirubin 0.4 (0.2-1.3) mg/dL AST 55 H (14-36) U/L ALT 94 H D (9-52) U/L Alkaline Phosphatase 398 H (38-126) U/L Total Protein 8.1 (6.3-8.3) g/dL Albumin 3.6 (3.5-5.0) g/dL Globulin 4.5 H (2.2-3.9) gm/dL Albumin/Globulin Ratio 0.8 L (1.0-2.1) Laboratory Results - last 24 hr 05/31/17 05/31/17 06:45 06:45 WBC 16.2 H RBC 3.08 L Hgb 8.6 L Hct 26.0 L MCV 84.4 MCH 27.9 MCHC 33.1 RDW 15.5 H Plt Count 625 H MPV 8.4 Neut % (Auto) 58.2 Lymph % (Auto) 28.1 [place] % (Auto) 8.9 Eos % (Auto) 4.1 H Baso % (Auto) 0.7 Neut # (Auto) 9.4 H Lymph # (Auto) 4.6 H [place] # (Auto) 1.4 H Eos # (Auto) 0.7 Baso # (Auto) 0.1 Differential Comment Sodium 137 Potassium 4.6 Chloride 94 L Carbon Dioxide 29 Anion Gap 18 BUN 18 H Creatinine 0.5 L Est GFR ( Amer) > 60 Est GFR (Non-Af Amer) > 60 Random Glucose 95 Calcium 9.9 Phosphorus 4.7 H Magnesium 1.9 Total Bilirubin 0.4 AST 55 H ALT 94 H D Alkaline Phosphatase 398 H Total Protein 8.1 Albumin 3.6 Globulin 4.5 H Albumin/Globulin Ratio 0.8 L Assessment/Plan (1) SMAS (superior mesenteric artery syndrome) Current Visit: Yes Status: Acute Comment: (2) Acute renal failure Current Visit: Yes Status: Acute (3) Mental retardation Current Visit: No Status: Acute Attending/Attestation - Attestation I have personally seen and examined this patient.: Yes I have fully participated in the care of the patient.: Yes I have reviewed all pertinent clinical information: Yes Notes (Text): 05/31/17 17:47 She is currently beginning ambulation therapy with PT and OT and will be cleared medically for transfer pending placement shortly.
[2017-06-01] MEDS: Multiple Vitamins Tab PO SCH (09:52)
[2017-06-01] MEDS: levETIRAcetam 100 mg/ml (5ml) Oral Syringe PO SCH ×2 (09:53→17:12)
--- NOTE | 2017-06-01 12:15 | CP.CCUPN ---
<Ponce Meeks - Last Filed: 06/01/17 18:15> CCU Subjective - Physician Review Events Since Last Encounter (Free Text): 06/01/17 12:14 Patient seen and examined at bedside. Per nursing no acute events occurred overnight. Subjective (Free Text): 05/24/17 11:29 Patient seen and examined at bedside. ROS unobtainable due to acuity of condition. 05/27/17 12:40 Patient seen and examined at bedside this A.M. Critical Care Time Spent (in minutes): 45 CCU Objective - Vital Signs / Intake & Output Vital Signs (Last 4 hours): Vital Signs Pulse Resp BP Pulse Ox 06/01/17 10:06 120 H 15 115/61 100 06/01/17 10:00 116 H 15 100 06/01/17 09:25 111 H 16 114/78 100 Intake and Output (Last 8hrs): Intake & Output 05/31/17 06/01/17 06/01/17 22:59 06:59 14:59 Intake Total 380 280 325 Output Total 270 150 Balance 110 130 325 Weight 110 lb Intake: Intake, IV Amount 0 0 Left Distal Port PICC 0 Left PICC Proximal Port 0 0 Oral 150 Tube Feeding 280 280 175 Other 100 Output: Drainage 270 150 ileostomy 270 150 Other: # Voids Urine, Voided 0 0 0 # Bowel Movements 0 0 0 - Physical Exam Head: Positive for: Atraumatic, Normocephalic. Negative for: Tenderness Pupils: Positive for: PERRL Extroacular Muscles: Positive for: EOMI Mouth: Positive for: Moist Mucous Membranes. Negative for: Dry, Drooling Nose (External): Positive for: Other (NGT in place) Nose (Internal): Positive for: Normal Inspection, Moist Neck: Positive for: Other (trach). Negative for: JVD, Lymphadenopathy Respiratory/Chest: Positive for: Clear to Auscultation. Negative for: Respiratory Distress, Accessory Muscle Use Cardiovascular: Positive for: Regular Rate and Rhythm, Normal S1, S2 Abdomen: Positive for: Tenderness (mild tenderness of palpation. patient continues to move her arms towards hands on palpation), Normal Bowel Sounds. Negative for: Distention, Peritoneal Signs, Guarding Upper Extremity: Positive for: Normal Inspection, Normal ROM, Capillary Refill < 2s. Negative for: Edema Lower Extremity: Positive for: Normal Inspection. Negative for: Edema Neurological: Positive for: CN II-XII Intact Skin: Positive for: Warm, Pale Psychiatric: Positive for: Alert - Medications Active Medications: Active Medications Generic Name Dose Route Start Last Admin Trade Name Freq PRN Reason Stop Dose Admin Acetaminophen 650 mg 04/28/17 20:11 05/25/17 21:46 Tylenol 650mg/20.3ml Solution Ud PO 650 mg Q4 PRN Administration Temperature Ascorbic Acid 500 mg 05/12/17 11:15 06/01/17 09:52 Vitamin C 500 Mg Tab PO 500 mg DAILY AGUSTIN Administration Ergocalciferol 1 cap 05/12/17 11:15 05/26/17 10:15 Drisdol 50,000 Intl Units Cap PO 1 cap QWK [facility]IN Administration Heparin Sodium (Porcine) 5,000 units 05/29/17 22:00 06/01/17 09:51 Heparin SC 5,000 units Q12H [facility] Administration Levetiracetam 500 mg 05/20/17 11:15 06/01/17 09:53 Keppra PO 500 mg BID AGUSTIN Administration Metoclopramide HCl 10 mg 05/12/17 11:00 06/01/17 09:51 Reglan IVP 10 mg DAILY [facility] Administration Metoprolol Tartrate 5 mg 05/20/17 19:40 05/31/17 06:44 Lopressor IVP 5 mg Q4H PRN Administration Systolic Blood Pressure Metoprolol Tartrate 50 mg 05/30/17 18:00 06/01/17 09:51 Lopressor PO 50 mg BID AGUSTIN Administration Pantoprazole Sodium 40 mg 05/20/17 11:00 06/01/17 09:51 Protonix Inj IVP 40 mg DAILY [facility] Administration Quetiapine Fumarate 200 mg 05/18/17 11:45 06/01/17 09:52 Seroquel PO 200 mg BID [facility] Administration - Patient Studies Fingerstick Blood Sugar Results: 110 Review of Systems - Review of Systems Systems not reviewed;Unavailable: Acuity of Condition Assessment/Plan - Assessment and Plan (Free Text) Assessment: Patient is a 36 year-old female, post-operative day #44 status post gastrojejunostomy with bypass feeding tube placed. Her past medical history includes acute pancreatitis, sepsis, renal insufficiency, and schizophrenia. She is currently beginning ambulation therapy with PT and OT and will be cleared medically for transfer pending placement shortly. Plan: Psych: Schizophrenia - Seroquel 200mg PO BID - measure QTc and call if >500 Neuro: Seizure disorder - Keppra 500mg PO BID - Metoclopramide 10mg IVP qd Cards: Tachycardia (persistent), HTN - Cardizem 50mg PO BID - metoprolol 5mg IV q4h PRN GI: Biliary emesis, constipation (resolved) - tolerating tube feeds at target goal - not vomiting - surgery does not recommend revising jejunostomy -small bowel series was negative for obstruction - +BM this AM Pulm: PNA - Trach collar at 40% FiO2, satting 97% PPx: DVT, PUD - Continue PT/OT - Drisdol 50,000 IU 1cap PO qwk - VitC 500mg tab PO qd - Multivitamin: 5ml PO qd - Heparin 5000 U SC q8 - Protonix 40mg IVP qd <Jose Hernandez - Last Filed: 06/01/17 18:17> CCU Subjective - Physician Review Critical Care Time Spent (in minutes): 20 CCU Objective - Vital Signs / Intake & Output Vital Signs (Last 4 hours): Vital Signs Temp Pulse Resp BP Pulse Ox 06/01/17 16:09 129 H 10 L 112/66 100 06/01/17 16:00 98.7 F 127 H 16 100 Intake and Output (Last 8hrs): Intake & Output 06/01/17 06/01/17 06/01/17 06:59 14:59 22:59 Intake Total 280 395 270 Output Total 150 300 Balance 130 95 270 Weight 110 lb Intake: Intake, IV Amount 0 0 0 Left Distal Port PICC 0 0 Left PICC Proximal Port 0 0 0 Oral 150 130 Tube Feeding 280 245 140 Output: Drainage 150 100 ileostomy 150 100 Urine 200 Urine, Voided 200 Other: # Voids Urine, Voided 0 0 0 # Bowel Movements 0 0 0 - Medications Active Medications: Active Medications Generic Name Dose Route Start Last Admin Trade Name Freq PRN Reason Stop Dose Admin Acetaminophen 650 mg 04/28/17 20:11 05/25/17 21:46 Tylenol 650mg/20.3ml Solution Ud PO 650 mg Q4 PRN Administration Temperature Ascorbic Acid 500 mg 05/12/17 11:15 06/01/17 09:52 Vitamin C 500 Mg Tab PO 500 mg DAILY AGUSTIN Administration Ergocalciferol 1 cap 05/12/17 11:15 05/26/17 10:15 Drisdol 50,000 Intl Units Cap PO 1 cap QWK [facility] Administration Heparin Sodium (Porcine) 5,000 units 05/29/17 22:00 06/01/17 09:51 Heparin SC 5,000 units Q12H [facility] Administration Levetiracetam 500 mg 05/20/17 11:15 06/01/17 17:12 Keppra PO 500 mg BID AGUSTIN Administration Metoclopramide HCl 10 mg 05/12/17 11:00 06/01/17 09:51 Reglan IVP 10 mg DAILY [facility] Administration Metoprolol Tartrate 5 mg 05/20/17 19:40 05/31/17 06:44 Lopressor IVP 5 mg Q4H PRN Administration Systolic Blood Pressure Metoprolol Tartrate 50 mg 05/30/17 18:00 06/01/17 17:12 Lopressor PO 50 mg BID AGUSTIN Administration Pantoprazole Sodium 40 mg 05/20/17 11:00 06/01/17 09:51 Protonix Inj IVP 40 mg DAILY AGUST[facility] Administration Quetiapine Fumarate 200 mg 05/18/17 11:45 06/01/17 17:12 Seroquel PO 200 mg BID AGUSTIN Administration Assessment/Plan (1) SMAS (superior mesenteric artery syndrome) Current Visit: Yes Status: Acute Comment: (2) Acute renal failure Current Visit: Yes Status: Acute (3) Mental retardation Current Visit: No Status: Acute Attending/Attestation - Attestation I have personally seen and examined this patient.: Yes I have fully participated in the care of the patient.: Yes I have reviewed all pertinent clinical information: Yes Notes (Text): 06/01/17 18:17 Patient seen and examined Consider decannulation and continue physical therapy Continue present treatment for now Transfer to floor
--- NOTE | 2017-06-01 16:28 | CP.PCM.PN ---
<Elliot Ye - Last Filed: 06/01/17 16:33> Subjective - Date & Time of Evaluation Date of Evaluation: 06/01/17 Time of Evaluation: 15:00 - Subjective Subjective: PGY5 GI Fellow Progress Note Patient seen and examined bedside this morning and again reevaluate with attending this afternoon. The patient has no complaints and has been tolerating tube feeds via jejunostomy without issue. No recent events overnight. 12 system ROS cannot be performed as patient is nonverbal at baseline. Objective - Vital Signs/Intake and Output Vital Signs (last 24 hours): Temp Pulse Resp BP Pulse Ox 98.0 F 120 H 16 122/75 98 06/01/17 12:00 06/01/17 12:00 06/01/17 12:00 06/01/17 11:39 06/01/17 12:00 Intake and Output: 06/01/17 06/01/17 06:59 18:59 Intake Total 420 430 Output Total 270 300 Balance 150 130 - Medications Medications: Current Medications Acetaminophen (Tylenol 650mg/20.3ml Solution Ud) 650 mg PO Q4 PRN PRN Reason: Temperature Last Admin: 05/25/17 21:46 Dose: 650 mg Ascorbic Acid (Vitamin C 500 Mg Tab) 500 mg PO DAILY [facility] Last Admin: 06/01/17 09:52 Dose: 500 mg Ergocalciferol (Drisdol 50,000 Intl Units Cap) 1 cap PO QWK [facility] Last Admin: 05/26/17 10:15 Dose: 1 cap Heparin Sodium (Porcine) (Heparin) 5,000 units SC Q12H [facility] Last Admin: 06/01/17 09:51 Dose: 5,000 units Levetiracetam (Keppra) 500 mg PO BID [facility] Last Admin: 06/01/17 09:53 Dose: 500 mg Metoclopramide HCl (Reglan) 10 mg IVP DAILY [facility] Last Admin: 06/01/17 09:51 Dose: 10 mg Metoprolol Tartrate (Lopressor) 5 mg IVP Q4H PRN PRN Reason: Systolic Blood Pressure Last Admin: 05/31/17 06:44 Dose: 5 mg Metoprolol Tartrate (Lopressor) 50 mg PO BID [facility] Last Admin: 06/01/17 09:51 Dose: 50 mg Pantoprazole Sodium (Protonix Inj) 40 mg IVP DAILY [facility] Last Admin: 06/01/17 09:51 Dose: 40 mg Quetiapine Fumarate (Seroquel) 200 mg PO BID [facility] Last Admin: 06/01/17 09:52 Dose: 200 mg - Labs Labs: 05/31/17 06:45 05/31/17 06:45 PT 14.0 SECONDS (9.7-12.2) H 04/25/17 06:25 INR 1.2 04/25/17 06:25 APTT 32 SECONDS (21-34) 04/25/17 06:25 - Constitutional Appears: Non-toxic, No Acute Distress, Chronically Ill - Eye Exam Eye Exam: EOMI, PERRL - ENT Exam ENT Exam: Mucous Membranes Dry - Respiratory Exam Respiratory Exam: Rhonchi. absent: Clear to Ausculation Bilateral, Rales, Wheezes Additional comments: trach collar in place - Cardiovascular Exam Cardiovascular Exam: Tachycardia, REGULAR RHYTHM, +S1, +S2 - GI/Abdominal Exam GI & Abdominal Exam: Soft, Normal Bowel Sounds. absent: Distended, Firm, Guarding, Rigid, Tenderness, Organomegaly Additional comments: ostomy patent with output noted; jejunostomy functioning with TF running - Extremities Exam Extremities Exam: Normal Inspection. absent: Pedal Edema - Neurological Exam Neurological Exam: Awake - Psychiatric Exam Psychiatric exam: Flat Affect Additional comments: nonverbal - Skin Skin Exam: Dry, Warm Assessment and Plan - Assessment and Plan (Free Text) Assessment: 36yo female with recently diagnosed SMA syndrome s/p boby-en-y gastrojejunostomy and boby-en-Y feeding jejunostomy -SMA syndrome s/p boby-en-y gastrojejunostomy and boby-en-Y feeding jejunostomy with interval removal of feeding jejunostomy tubing and insertion of PEJ on 05/23 -Abnormal LFTs -Schizophrenia, non-verbal Plan: -Tolerating TF without issue, consider feeding PO if patient can tolerate and this is OKd from pulm standpoint in relation to tracheostomy -LFTs could be a result of biliary debris/sludge given rapid weight loss, recent TPN administration -Hepatitis serologies unremarkable -Check autoimmune markers - JOSIAS, AMA, ASMA. IgG level -Continue to trend LFTs - if rising, consider EUS/ERCP on Tuesday -Will follow <Dov Meade - Last Filed: 06/02/17 09:06> Objective - Vital Signs/Intake and Output Vital Signs (last 24 hours): Temp Pulse Resp BP Pulse Ox 97.9 F 128 H 13 126/64 100 06/02/17 08:00 06/02/17 08:00 06/02/17 08:00 06/02/17 08:00 06/02/17 08:00 Intake and Output: 06/02/17 06/02/17 06:59 18:59 Intake Total 420 70 Output Total 600 Balance -180 70 - Medications Medications: Current Medications Acetaminophen (Tylenol 650mg/20.3ml Solution Ud) 650 mg PO Q4 PRN PRN Reason: Temperature Last Admin: 05/25/17 21:46 Dose: 650 mg Ascorbic Acid (Vitamin C 500 Mg Tab) 500 mg PO DAILY [facility] Last Admin: 06/01/17 09:52 Dose: 500 mg Ergocalciferol (Drisdol 50,000 Intl Units Cap) 1 cap PO QWK [facility] Last Admin: 05/26/17 10:15 Dose: 1 cap Levetiracetam (Keppra) 500 mg PO BID [facility] Last Admin: 06/01/17 17:12 Dose: 500 mg Metoclopramide HCl (Reglan) 10 mg IVP DAILY [facility] Last Admin: 06/01/17 09:51 Dose: 10 mg Metoprolol Tartrate (Lopressor) 5 mg IVP Q4H PRN PRN Reason: Systolic Blood Pressure Last Admin: 05/31/17 06:44 Dose: 5 mg Metoprolol Tartrate (Lopressor) 50 mg PO BID [facility] Last Admin: 06/01/17 17:12 Dose: 50 mg Pantoprazole Sodium (Protonix Inj) 40 mg IVP DAILY [facility] Last Admin: 06/01/17 09:51 Dose: 40 mg Quetiapine Fumarate (Seroquel) 200 mg PO BID [facility] Last Admin: 06/01/17 17:12 Dose: 200 mg Ursodiol (Actigall) 300 mg PEG BID [facility] - Labs Labs: 06/02/17 06:36 06/02/17 06:36 PT 14.0 SECONDS (9.7-12.2) H 04/25/17 06:25 INR 1.2 04/25/17 06:25 APTT 32 SECONDS (21-34) 04/25/17 06:25 Attending/Attestation - Attestation I have personally seen and examined this patient.: Yes I have fully participated in the care of the patient.: Yes I have reviewed all pertinent clinical information, including history, physical exam and plan: Yes Notes (Text): 06/01/17 18:02 36 year old female with SMA syndrome s/p gastrojejunostomy, s/p PEJ recovering in icu. She has developed biliary sludge during her hospitalization, likely as a consequence of weight loss, TPN, prolonged starvation, etc. She has a mild increase in her lfts which is now downtrending and likely related to transient passage of sludge. Would recommend starting ursodiol 300 mg po bid as oral dissolution therapy rather than putting her through additional invasive procedures (cholecystectomy, ERCP) at this point in time. If she develops symptoms of biliary sludge such as biliary type pain, cholangitis, or recurrent pancreatitis, then additional procedures may be necessary. In addition, would evaluate to see if she can start eating again at some point if that is ok with the type of tracheostomy she has. Tolerating tube feedings at goal. Will sign off at this time.
[2017-06-02 06:43] LABS: BASO # 0.1 K/uL (0.0-0.2); BASO % 0.7 % (0.0-2.0); EOS # 0.4 K/uL (0.0-0.7); EOS % 2.3 % (0.0-4.0); HEMOGLOBIN 9.3 g/dL (11.0-16.0); LYMPH # 5.1 K/uL (1.0-4.3); LYMPH % 30.4 % (20.0-40.0); MEAN CELL VOLUME 84.5 fL (81.0-99.0); MEAN CORPUSCULAR HGB CONC 33.1 g/dL (33.0-37.0); MONO # 1.5 K/uL (0.0-0.8); NEUT # 9.6 K/uL (1.8-7.0); NEUT % 57.6 % (50.0-75.0); RBC 3.31 Mil/uL (3.80-5.20); RED CELL DISTRIBUTION WIDTH 15.3 % (11.5-14.5); WHITE BLOOD COUNT 16.7 K/uL (4.8-10.8)
[2017-06-02 06:58] LABS: ALB/GLOB RATIO 0.8 (1.0-2.1); ALBUMIN 2.7 g/dL (3.5-5.0); ALT/SGPT 58 U/L (9-52); AST/SGOT 32 U/L (14-36); BLOOD UREA NITROGEN 20 mg/dL (7-17); CALCIUM 7.3 mg/dl (8.6-10.4); GFR AFRICAN-AMERICAN > 60; GFR NON-AFRICAN AMERICAN > 60
--- NOTE | 2017-06-02 08:29 | CP.CCUPN ---
CCU Subjective - Physician Review Events Since Last Encounter (Free Text): 06/02/17 08:28 Patient seen and examined at bedside. Per nursing no acute events occurred overnight. Subjective (Free Text): 05/24/17 11:29 Patient seen and examined at bedside. ROS unobtainable due to acuity of condition. 05/27/17 12:40 Patient seen and examined at bedside this A.M. Critical Care Time Spent (in minutes): 45 CCU Objective - Vital Signs / Intake & Output Vital Signs (Last 4 hours): Vital Signs Temp Pulse Resp BP Pulse Ox 06/02/17 08:00 97.9 F 128 H 13 126/64 100 06/02/17 07:50 131 H 14 126/64 Intake and Output (Last 8hrs): Intake & Output 06/01/17 06/02/17 06/02/17 22:59 06:59 14:59 Intake Total 410 280 70 Output Total 600 Balance 410 -320 70 Weight 105 lb 6.08 oz Intake: Intake, IV Amount 0 Left Distal Port PICC 0 Left PICC Proximal Port 0 Oral 130 Tube Feeding 280 280 70 Output: Drainage 100 ileostomy 100 Urine 500 Urine, Voided 500 Other: # Voids Urine, Voided 0 # Bowel Movements 0 - Physical Exam Head: Positive for: Atraumatic, Normocephalic. Negative for: Tenderness Pupils: Positive for: PERRL Extroacular Muscles: Positive for: EOMI Mouth: Positive for: Moist Mucous Membranes. Negative for: Dry, Drooling Nose (External): Positive for: Other (NGT in place) Nose (Internal): Positive for: Normal Inspection, Moist Neck: Positive for: Other (trach). Negative for: JVD, Lymphadenopathy Respiratory/Chest: Positive for: Clear to Auscultation. Negative for: Respiratory Distress, Accessory Muscle Use Cardiovascular: Positive for: Regular Rate and Rhythm, Normal S1, S2 Abdomen: Positive for: Tenderness (mild tenderness of palpation. patient continues to move her arms towards hands on palpation), Normal Bowel Sounds. Negative for: Distention, Peritoneal Signs, Guarding Upper Extremity: Positive for: Normal Inspection, Normal ROM, Capillary Refill < 2s. Negative for: Edema Lower Extremity: Positive for: Normal Inspection. Negative for: Edema Neurological: Positive for: CN II-XII Intact Skin: Positive for: Warm, Pale Psychiatric: Positive for: Alert - Medications Active Medications: Active Medications Generic Name Dose Route Start Last Admin Trade Name Freq PRN Reason Stop Dose Admin Acetaminophen 650 mg 04/28/17 20:11 05/25/17 21:46 Tylenol 650mg/20.3ml Solution Ud PO 650 mg Q4 PRN Administration Temperature Ascorbic Acid 500 mg 05/12/17 11:15 06/01/17 09:52 Vitamin C 500 Mg Tab PO 500 mg DAILY [facility] Administration Ergocalciferol 1 cap 05/12/17 11:15 05/26/17 10:15 Drisdol 50,000 Intl Units Cap PO 1 cap QWK [facility] Administration Levetiracetam 500 mg 05/20/17 11:15 06/01/17 17:12 Keppra PO 500 mg BID [facility] Administration Metoclopramide HCl 10 mg 05/12/17 11:00 06/01/17 09:51 Reglan IVP 10 mg DAILY [facility] Administration Metoprolol Tartrate 5 mg 05/20/17 19:40 05/31/17 06:44 Lopressor IVP 5 mg Q4H PRN Administration Systolic Blood Pressure Metoprolol Tartrate 50 mg 05/30/17 18:00 06/01/17 17:12 Lopressor PO 50 mg BID [facility] Administration Pantoprazole Sodium 40 mg 05/20/17 11:00 06/01/17 09:51 Protonix Inj IVP 40 mg DAILY [facility] Administration Quetiapine Fumarate 200 mg 05/18/17 11:45 06/01/17 17:12 Seroquel PO 200 mg BID [facility] Administration - Patient Studies Lab Studies: Lab Studies 06/02/17 06/02/17 06/02/17 Range/Units 06:36 06:36 06:36 WBC 16.7 H (4.8-10.8) K/uL RBC 3.31 L (3.80-5.20) Mil/uL Hgb 9.3 L (11.0-16.0) g/dL Hct 27.9 L (34.0-47.0) % MCV 84.5 (81.0-99.0) fL MCH 28.0 (27.0-31.0) pg MCHC 33.1 (33.0-37.0) g/dL RDW 15.3 H (11.5-14.5) % Plt Count 512 H D (130-400) K/uL MPV 8.0 (7.2-11.7) fL Neut % (Auto) 57.6 (50.0-75.0) % Lymph % (Auto) 30.4 (20.0-40.0) % [place] % (Auto) 9.0 (0.0-10.0) % Eos % (Auto) 2.3 (0.0-4.0) % Baso % (Auto) 0.7 (0.0-2.0) % Neut # (Auto) 9.6 H (1.8-7.0) K/uL Lymph # (Auto) 5.1 H (1.0-4.3) K/uL [place] # (Auto) 1.5 H (0.0-0.8) K/uL Eos # (Auto) 0.4 (0.0-0.7) K/uL Baso # (Auto) 0.1 (0.0-0.2) K/uL Sodium 142 (132-148) mmol/L Potassium 3.3 L (3.6-5.2) mmol/L Chloride 110 H (98-107) mmol/L Carbon Dioxide 23 (22-30) mmol/L Anion Gap 13 (10-20) BUN 20 H (7-17) mg/dL Creatinine 0.4 L (0.7-1.2) mg/dL Est GFR ( Amer) > 60 Est GFR (Non-Af Amer) > 60 Random Glucose 89 (65-105) mg/dL Calcium 7.3 L (8.6-10.4) mg/dl Phosphorus 3.9 (2.5-4.5) mg/dL Magnesium 1.5 L (1.6-2.3) mg/dL Total Bilirubin 0.1 L (0.2-1.3) mg/dL AST 32 (14-36) U/L ALT 58 H D (9-52) U/L Alkaline Phosphatase 269 H D (38-126) U/L Total Protein 5.9 L (6.3-8.3) g/dL Albumin 2.7 L D (3.5-5.0) g/dL Globulin 3.2 (2.2-3.9) gm/dL Albumin/Globulin Ratio 0.8 L (1.0-2.1) IgG 1062.8 (700.0-1600.0) mg/dL Laboratory Results - last 24 hr 06/02/17 06/02/17 06/02/17 06:36 06:36 06:36 WBC 16.7 H RBC 3.31 L Hgb 9.3 L Hct 27.9 L MCV 84.5 MCH 28.0 MCHC 33.1 RDW 15.3 H Plt Count 512 H D MPV 8.0 Neut % (Auto) 57.6 Lymph % (Auto) 30.4 [place] % (Auto) 9.0 Eos % (Auto) 2.3 Baso % (Auto) 0.7 Neut # (Auto) 9.6 H Lymph # (Auto) 5.1 H [place] # (Auto) 1.5 H Eos # (Auto) 0.4 Baso # (Auto) 0.1 Sodium 142 Potassium 3.3 L Chloride 110 H Carbon Dioxide 23 Anion Gap 13 BUN 20 H Creatinine 0.4 L Est GFR ( Amer) > 60 Est GFR (Non-Af Amer) > 60 Random Glucose 89 Calcium 7.3 L Phosphorus 3.9 Magnesium 1.5 L Total Bilirubin 0.1 L AST 32 ALT 58 H D Alkaline Phosphatase 269 H D Total Protein 5.9 L Albumin 2.7 L D Globulin 3.2 Albumin/Globulin Ratio 0.8 L IgG 1062.8 Fingerstick Blood Sugar Results: 110 Assessment/Plan - Assessment and Plan (Free Text) Assessment: Patient is a 36 year-old female, post-operative day #44 status post gastrojejunostomy with bypass feeding tube placed. Her past medical history includes acute pancreatitis, sepsis, renal insufficiency, and schizophrenia. She is currently beginning ambulation therapy with PT and OT and will be cleared medically for transfer pending placement shortly. Plan: Psych: Schizophrenia - Seroquel 200mg PO BID - measure QTc and call if >500 Neuro: Seizure disorder - Keppra 500mg PO BID - Metoclopramide 10mg IVP qd Cards: Tachycardia (persistent), HTN - Lopressor 50mg PO BID - metoprolol 5mg IV q4h PRN GI: Biliary emesis, constipation (resolved) - tolerating tube feeds at target goal - not vomiting - surgery does not recommend revising jejunostomy -small bowel series was negative for obstruction - +BM this AM Pulm: PNA - Trach collar at 40% FiO2, satting 100% PPx: DVT, PUD - Continue PT/OT - Drisdol 50,000 IU 1cap PO qwk - VitC 500mg tab PO qd - Multivitamin: 5ml PO qd - Heparin 5000 U SC q8 - Protonix 40mg IVP qd Disposition: Patient determined stable for transfer. Patient transferred to Med/ Surg, however will remain in the ICU. Will attempt to teach family members how to feed and care for patient at home.
[2017-06-02] MEDS ORDERED: Magnesium Sulfate 1 gm in D5W 1 GM/100 ML BAG IVPB ONE (09:16)
[2017-06-02] MEDS: Ergocalciferol 50,000 Intl Units Cap PO SCH (10:19)
[2017-06-02] MEDS: levETIRAcetam 100 mg/ml (5ml) Oral Syringe PO SCH ×2 (10:19→18:21)
[2017-06-03 07:48] LABS: ALB/GLOB RATIO 0.8 (1.0-2.1); ALBUMIN 3.9 g/dL (3.5-5.0); ALT/SGPT 66 U/L (9-52); AST/SGOT 37 U/L (14-36); BLOOD UREA NITROGEN 27 mg/dL (7-17); CALCIUM 10.5 mg/dl (8.6-10.4); GFR AFRICAN-AMERICAN > 60; GFR NON-AFRICAN AMERICAN > 60
--- NOTE | 2017-06-03 08:56 | CP.PCM.PN ---
<Elliot Ye - Last Filed: 06/03/17 08:54> Subjective - Date & Time of Evaluation Date of Evaluation: 06/03/17 Time of Evaluation: 06:45 - Subjective Subjective: PGY5 GI Fellow Progress Note Patient seen and examined bedside this morning. The patient appears to be more uncomfortable at this time and when asked does seem to point to her abdomen. No nausea, vomiting per nursing. No events overnight. 12 system ROS cannot be performed given clinical condition Objective - Vital Signs/Intake and Output Vital Signs (last 24 hours): Temp Pulse Resp BP Pulse Ox 99.7 F H 140 H 21 124/88 100 06/03/17 08:00 06/03/17 08:00 06/03/17 08:00 06/03/17 08:00 06/03/17 08:00 Intake and Output: 06/03/17 06/03/17 06:59 18:59 Intake Total 780 Output Total 400 Balance 380 - Medications Medications: Current Medications Acetaminophen (Tylenol 650mg/20.3ml Solution Ud) 650 mg PO Q4 PRN PRN Reason: Temperature Last Admin: 05/25/17 21:46 Dose: 650 mg Ascorbic Acid (Vitamin C 500 Mg Tab) 500 mg PO DAILY [facility] Last Admin: 06/02/17 10:20 Dose: 500 mg Ergocalciferol (Drisdol 50,000 Intl Units Cap) 1 cap PO QWK [facility] Last Admin: 06/02/17 10:19 Dose: 1 cap Levetiracetam (Keppra) 500 mg PO BID [facility] Last Admin: 06/02/17 18:21 Dose: 500 mg Metoclopramide HCl (Reglan) 10 mg IVP DAILY [facility] Last Admin: 06/02/17 10:19 Dose: 10 mg Metoprolol Tartrate (Lopressor) 5 mg IVP Q4H PRN PRN Reason: Systolic Blood Pressure Last Admin: 05/31/17 06:44 Dose: 5 mg Metoprolol Tartrate (Lopressor) 50 mg PO BID [facility] Last Admin: 06/02/17 18:19 Dose: 50 mg Pantoprazole Sodium (Protonix Inj) 40 mg IVP DAILY [facility] Last Admin: 06/02/17 10:19 Dose: 40 mg Ursodiol (Actigall) 300 mg PEG BID [facility] Last Admin: 06/02/17 18:20 Dose: 300 mg - Labs Labs: 06/02/17 06:36 06/03/17 07:13 PT 14.0 SECONDS (9.7-12.2) H 04/25/17 06:25 INR 1.2 04/25/17 06:25 APTT 32 SECONDS (21-34) 04/25/17 06:25 - Constitutional Appears: Non-toxic, Other (grimmacing) - Eye Exam Eye Exam: EOMI, PERRL - ENT Exam ENT Exam: Mucous Membranes Dry - Respiratory Exam Respiratory Exam: Clear to Ausculation Bilateral. absent: Rales, Rhonchi, Wheezes - Cardiovascular Exam Cardiovascular Exam: Tachycardia, REGULAR RHYTHM, +S1, +S2 - GI/Abdominal Exam GI & Abdominal Exam: Soft, Normal Bowel Sounds. absent: Distended, Firm, Guarding, Rigid, Tenderness, Organomegaly - Extremities Exam Extremities Exam: Normal Inspection. 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 and boby-en-Y feeding jejunostomy -SMA syndrome s/p boby-en-y gastrojejunostomy and boby-en-Y feeding jejunostomy with interval removal of feeding jejunostomy tubing and insertion of PEJ on 05/23 -Abnormal LFTs, improved -Schizophrenia, non-verbal Plan: -Increased tube feeds to 65cc/hr per dietary/nutrition recs, patient tolerating without nausea/vomiting -Does seem to have some abdominal discomfort this morning, check abdominal flat plate -LFTs downtrending -Continue Ursodiol as ordered -Autoimmune markers pending - JOSIAS, AMA, ASMA -IgG level WNL <Dov Meade - Last Filed: 06/03/17 11:14> Objective - Vital Signs/Intake and Output Vital Signs (last 24 hours): Temp Pulse Resp BP Pulse Ox 99.7 F H 140 H 21 124/88 100 06/03/17 08:00 06/03/17 08:00 06/03/17 08:00 06/03/17 08:00 06/03/17 08:00 Intake and Output: 02/23/18 02/23/18 06:59 18:59 Intake Total 780 300 Output Total 400 200 Balance 380 100 - Medications Medications: Current Medications Acetaminophen (Tylenol 650mg/20.3ml Solution Ud) 650 mg PO Q4 PRN PRN Reason: Temperature Last Admin: 05/25/17 21:46 Dose: 650 mg Ascorbic Acid (Vitamin C 500 Mg Tab) 500 mg PO DAILY [facility] Last Admin: 06/03/17 09:23 Dose: 500 mg Ergocalciferol (Drisdol 50,000 Intl Units Cap) 1 cap PO QWK [facility] Last Admin: 06/02/17 10:19 Dose: 1 cap Levetiracetam (Keppra) 500 mg PO BID [facility] Last Admin: 06/03/17 09:23 Dose: 500 mg Metoclopramide HCl (Reglan) 10 mg IVP DAILY [facility] Last Admin: 06/03/17 09:23 Dose: 10 mg Metoprolol Tartrate (Lopressor) 5 mg IVP Q4H PRN PRN Reason: Systolic Blood Pressure Last Admin: 06/03/17 09:41 Dose: 5 mg Metoprolol Tartrate (Lopressor) 50 mg PO BID [facility] Last Admin: 06/03/17 09:23 Dose: 50 mg Pantoprazole Sodium (Protonix Inj) 40 mg IVP DAILY [facility] Last Admin: 06/03/17 09:23 Dose: 40 mg Ursodiol (Actigall) 300 mg PEG BID [facility] Last Admin: 06/03/17 09:23 Dose: 300 mg - Labs Labs: 06/02/17 06:36 06/03/17 07:13 PT 14.0 SECONDS (9.7-12.2) H 04/25/17 06:25 INR 1.2 04/25/17 06:25 APTT 32 SECONDS (21-34) 04/25/17 06:25 Attending/Attestation - Attestation I have personally seen and examined this patient.: Yes I have fully participated in the care of the patient.: Yes I have reviewed all pertinent clinical information, including history, physical exam and plan: Yes Notes (Text): 06/03/17 11:12 36 year old female with h/o SMA syndrome, acute pancreatitis, s/p gastrojejunostomy, s/p PEJ, pneumonia, renal failure s/p HD now resolved who is still recovering in ICU. She developed some vomiting this morning and tube feeds were reduced. Abdominal x ray reviewed, unremarkable. If she has persistent vomiting, may need to repeat CT again. May restart tube feeds and advance as tolerated. Elevated lfts seem most likely related to biliary sludge. Ursodiol was started for dissolution.
[2017-06-03] MEDS: levETIRAcetam 100 mg/ml (5ml) Oral Syringe PO SCH ×2 (09:23→18:16)
[2017-06-03] MEDS: Metoprolol 1 mg/ml Inj IVP PRN (09:41)
--- NOTE | 2017-06-03 10:05 | RAD ---
HISTORY: abdominal pain COMPARISON: 05/03/2017 FINDINGS: BOWEL: No evidence of bowel obstruction. Right-sided ostomy. A right-sided jejunostomy tube noted. No masses or abnormal intra-abdominal calcifications. No hepatic or splenic enlargement appreciated. BONES: Normal. OTHER FINDINGS: None. IMPRESSION: No evidence of bowel obstruction.
[2017-06-04] MEDS: levETIRAcetam 100 mg/ml (5ml) Oral Syringe PO SCH ×2 (10:26→17:25)
[2017-06-04] MEDS: Acetaminophen 650mg/20.3ml solution UD PO PRN (16:24)
--- NOTE | 2017-06-04 18:29 | CP.PCM.PN ---
Subjective - Date & Time of Evaluation Date of Evaluation: 06/04/17 Time of Evaluation: 10:15 - Subjective Subjective: PGY1 Medicine Note for Dr. Reyes Patient seen and evaluated at bedside this morning. Nursing staff reports no acute events overnight. Patient is very active this morning and is attempting to stand up and walk around today. Objective - Vital Signs/Intake and Output Vital Signs (last 24 hours): Temp Pulse Resp BP Pulse Ox 102.4 F H 120 H 20 109/73 98 06/04/17 16:24 06/04/17 00:00 06/04/17 00:00 06/04/17 00:00 06/04/17 00:00 Intake and Output: 06/04/17 06/04/17 06:59 18:59 Intake Total 210 110 Output Total 125 50 Balance 85 60 - Medications Medications: Current Medications Acetaminophen (Tylenol 650mg/20.3ml Solution Ud) 650 mg PO Q4 PRN PRN Reason: Temperature Last Admin: 06/04/17 16:24 Dose: 650 mg Ascorbic Acid (Vitamin C 500 Mg Tab) 500 mg PO DAILY [facility] Last Admin: 06/04/17 10:25 Dose: 500 mg Ergocalciferol (Drisdol 50,000 Intl Units Cap) 1 cap PO QWK [facility] Last Admin: 06/02/17 10:19 Dose: 1 cap Levetiracetam (Keppra) 500 mg PO BID [facility] Last Admin: 06/04/17 17:25 Dose: 500 mg Metoclopramide HCl (Reglan) 10 mg IVP DAILY [facility] Last Admin: 06/04/17 10:28 Dose: 10 mg Metoprolol Tartrate (Lopressor) 5 mg IVP Q4H PRN PRN Reason: Systolic Blood Pressure Last Admin: 06/03/17 09:41 Dose: 5 mg Metoprolol Tartrate (Lopressor) 50 mg PO BID [facility] Last Admin: 06/04/17 17:25 Dose: 50 mg Pantoprazole Sodium (Protonix Inj) 40 mg IVP DAILY [facility] Last Admin: 06/04/17 10:26 Dose: 40 mg Ursodiol (Actigall) 300 mg PEG BID [facility] Last Admin: 06/04/17 17:25 Dose: 300 mg - Labs Labs: 06/02/17 06:36 06/03/17 07:13 PT 14.0 SECONDS (9.7-12.2) H 04/25/17 06:25 INR 1.2 04/25/17 06:25 APTT 32 SECONDS (21-34) 04/25/17 06:25 - Constitutional Appears: Non-toxic, No Acute Distress - Head Exam Head Exam: ATRAUMATIC, NORMOCEPHALIC - Eye Exam Eye Exam: EOMI, PERRL - ENT Exam ENT Exam: Mucous Membranes Moist - Respiratory Exam Respiratory Exam: Clear to Ausculation Bilateral, NORMAL BREATHING PATTERN. absent: Accessory Muscle Use, Rales, Rhonchi, Wheezes, Respiratory Distress - Cardiovascular Exam Cardiovascular Exam: REGULAR RHYTHM, +S1, +S2 - GI/Abdominal Exam GI & Abdominal Exam: Soft, Tenderness (patient attempts to move physician's hands when palpating the abdomen. ), Normal Bowel Sounds. absent: Distended, Firm, Guarding, Rigid - Extremities Exam Extremities Exam: absent: Calf Tenderness, Pedal Edema - Neurological Exam Neurological Exam: Alert - Skin Skin Exam: Dry, Warm Assessment and Plan - Assessment and Plan (Free Text) Plan: Patient is a 36 year-old female, post-operative day #45 status post gastrojejunostomy with bypass feeding tube placed. Her past medical history includes acute pancreatitis, sepsis, renal insufficiency, and schizophrenia. She is currently beginning ambulation therapy with PT and OT and is cleared medically for transfer pending placement. Psych: Schizophrenia - Seroquel 200mg PO BID - measure QTc and call if >500 Neuro: Seizure disorder - Keppra 500mg PO BID - Metoclopramide 10mg IVP qd Cards: Tachycardia (persistent), HTN - Lopressor 50mg PO BID - Metoprolol 5mg IV q4h PRN GI: Biliary emesis, constipation (resolved) - tolerating tube feeds at target goal - not vomiting - surgery does not recommend revising jejunostomy - small bowel series was negative for obstruction - Ursodiol 300 mg PEG BID Pulm: PNA - Trach collar at 40% FiO2, satting 100% - Trach removed yesterday, 06/03/17. PPx: DVT, PUD - Continue PT/OT - Drisdol 50,000 IU 1cap PO qwk - VitC 500mg tab PO qd - Heparin 5000 U SC q8 - Protonix 40mg IVP qd Disposition: Patient determined stable for transfer. As patient will need 24 hour surveillance, family members are currently attempting to learn how to feed and care for patient at home. Will discuss with SW about transfer to SNF or [facility] in case family is unable to care for patient at home. Case discussed with Dr. Amy Odom Maynor PGY1
[2017-06-05 06:26] LABS: BASO # 0.2 K/uL (0.0-0.2); BASO % 0.5 % (0.0-2.0); EOS # 0.1 K/uL (0.0-0.7); EOS % 0.2 % (0.0-4.0); HEMOGLOBIN 9.1 g/dL (11.0-16.0); LYMPH # 5.9 K/uL (1.0-4.3); LYMPH % 13.2 % (20.0-40.0); MEAN CELL VOLUME 84.2 fL (81.0-99.0); MEAN CORPUSCULAR HEMOGLOBIN 27.7 pg (27.0-31.0); MEAN CORPUSCULAR HGB CONC 32.9 g/dL (33.0-37.0); MEAN PLATELET VOLUME 8.6 fL (7.2-11.7); MONO # 2.2 K/uL (0.0-0.8); MONO % 4.8 % (0.0-10.0); NEUT # 36.5 K/uL (1.8-7.0); NEUT % 81.3 % (50.0-75.0); RBC 3.27 Mil/uL (3.80-5.20); RED CELL DISTRIBUTION WIDTH 15.7 % (11.5-14.5)
[2017-06-05 06:54] LABS: ALB/GLOB RATIO 0.8 (1.0-2.1); ALBUMIN 3.8 g/dL (3.5-5.0); ALT/SGPT 54 U/L (9-52); AST/SGOT 29 U/L (14-36); BLOOD UREA NITROGEN 38 mg/dL (7-17); CALCIUM 9.9 mg/dl (8.6-10.4); GFR AFRICAN-AMERICAN > 60; GFR NON-AFRICAN AMERICAN > 60
--- NOTE | 2017-06-05 08:07 | CP.PCM.PN ---
Subjective - Date & Time of Evaluation Date of Evaluation: 06/05/17 Time of Evaluation: 08:00 - Subjective Subjective: Medicine progress note (Dr. Reyes's service) Patient was seen and examined at bedside wit 1:1 observation. As per nursing, there were no acute issues overnight. Patient continues to move lower extremities continuously. Unable to evaluate ROS as patient is non-verbal Objective - Vital Signs/Intake and Output Vital Signs (last 24 hours): Temp Pulse Resp BP Pulse Ox 98.4 F 112 H 16 111/84 100 06/05/17 04:00 06/05/17 04:00 06/05/17 04:00 06/05/17 04:00 06/05/17 04:00 Intake and Output: 06/05/17 06/05/17 06:59 18:59 Intake Total 220 Output Total 250 Balance -30 - Medications Medications: Current Medications Acetaminophen (Tylenol 650mg/20.3ml Solution Ud) 650 mg PO Q4 PRN PRN Reason: Temperature Last Admin: 06/04/17 16:24 Dose: 650 mg Ascorbic Acid (Vitamin C 500 Mg Tab) 500 mg PO DAILY [facility] Last Admin: 06/04/17 10:25 Dose: 500 mg Ergocalciferol (Drisdol 50,000 Intl Units Cap) 1 cap PO QWK [facility] Last Admin: 06/02/17 10:19 Dose: 1 cap Heparin Sodium (Porcine) (Heparin) 5,000 units SC Q8 [facility] Last Admin: 06/05/17 06:49 Dose: Not Given Levetiracetam (Keppra) 500 mg PO BID [facility] Last Admin: 06/04/17 17:25 Dose: 500 mg Metoclopramide HCl (Reglan) 10 mg IVP DAILY [facility] Last Admin: 06/04/17 10:28 Dose: 10 mg Metoprolol Tartrate (Lopressor) 5 mg IVP Q4H PRN PRN Reason: Systolic Blood Pressure Last Admin: 06/03/17 09:41 Dose: 5 mg Metoprolol Tartrate (Lopressor) 50 mg PO BID [facility] Last Admin: 06/04/17 17:25 Dose: 50 mg Pantoprazole Sodium (Protonix Inj) 40 mg IVP DAILY [facility] Last Admin: 06/04/17 10:26 Dose: 40 mg Ursodiol (Actigall) 300 mg PEG BID [facility] Last Admin: 06/04/17 17:25 Dose: 300 mg - Labs Labs: 06/05/17 06:18 06/05/17 06:18 PT 14.0 SECONDS (9.7-12.2) H 04/25/17 06:25 INR 1.2 04/25/17 06:25 APTT 32 SECONDS (21-34) 04/25/17 06:25 - Constitutional Appears: No Acute Distress - Head Exam Head Exam: ATRAUMATIC - Eye Exam Eye Exam: EOMI, Normal appearance - ENT Exam ENT Exam: Mucous Membranes Moist - Respiratory Exam Respiratory Exam: Clear to Ausculation Bilateral, NORMAL BREATHING PATTERN. absent: Rhonchi, Wheezes, Respiratory Distress - Cardiovascular Exam Cardiovascular Exam: REGULAR RHYTHM, +S1, +S2 - GI/Abdominal Exam GI & Abdominal Exam: Soft, Normal Bowel Sounds. absent: Firm, Guarding, Rigid, Tenderness - Extremities Exam Extremities Exam: Normal Inspection. absent: Calf Tenderness, Pedal Edema - Neurological Exam Neurological Exam: Awake. absent: Oriented x3 - Psychiatric Exam Psychiatric exam: Anxious - Skin Skin Exam: Normal Color Assessment and Plan (1) Leucocytosis Assessment & Plan: WBC: 16.7---45, Febrile * F/u lactate, blood culture, urine culture and UA Started zosyn 3.375 IV Q6H (06/05/17) Started Vanco 1gm IV daily (06/05/17) Status: Acute (2) Duodenal obstruction Assessment & Plan: General Surgery, Dr. Mendez---> Help appreciated * post-operative day #46 status post gastrojejunostomy with bypass feeding tube placed. Status: Acute (3) Schizophrenia Assessment & Plan: - Seroquel 200mg PO BID - measure QTc and call if >500 Status: Chronic (4) Seizure Assessment & Plan: - Keppra 500mg PO BID Status: Acute (5) Hypertension Assessment & Plan: with persistent tachycardia - Lopressor 50mg PO BID - Metoprolol 5mg IV q4h PRN Status: Acute (6) Constipation Assessment & Plan: with emesis - tolerating tube feeds at target goal - not vomiting - surgery does not recommend revising jejunostomy - small bowel series was negative for obstruction - Ursodiol 300 mg PEG BID Status: Acute (7) Prophylactic measure Assessment & Plan: - Continue PT/OT - Drisdol 50,000 IU 1cap PO qwk - VitC 500mg tab PO qd - DVT: Heparin 5000 U SC q8 - GI: Protonix 40mg IVP qd All plans and management discussed with attending, Dr. Reyes Status: Acute
[2017-06-05] MEDS: Vancomycin 1 gm/NS 200 ml 1 GM/200 ML BAG IVPB SCH (09:14)
[2017-06-05] MEDS: Piperacillin/Tazobact 3.375 GM in Sodium Chloride 0.9% 100 ML IVPB SCH ×3 (09:18→21:18)
[2017-06-05] MEDS: levETIRAcetam 100 mg/ml (5ml) Oral Syringe PO SCH ×2 (09:31→17:38)
[2017-06-05 09:32] LABS: SQUAMOUS EPITHIAL 1 /hpf (0-5); URINE BACTERIA RARE (<OCC); URINE BILIRUBIN NEGATIVE (NEGATIVE); URINE BLOOD NEGATIVE (NEGATIVE); URINE CLARITY Hazy (Clear); URINE COLOR Amber (YELLOW); URINE GLUCOSE (UA) 1+ mg/dL (Normal); URINE LEUKOCYTE ESTERASE NEG Leu/uL (Negative); URINE PROTEIN 2+ mg/dL (NEGATIVE); URINE UROBILINOGEN NORMAL mg/dL (0.2-1.0)
[2017-06-06] MEDS: Piperacillin/Tazobact 3.375 GM in Sodium Chloride 0.9% 100 ML IVPB SCH ×3 (03:26→17:11)
[2017-06-06 06:38] LABS: BASO # 0.1 K/uL (0.0-0.2); BASO % 0.3 % (0.0-2.0); EOS # 0.3 K/uL (0.0-0.7); EOS % 1.3 % (0.0-4.0); LYMPH # 2.7 K/uL (1.0-4.3); LYMPH % 13.6 % (20.0-40.0); MEAN CELL VOLUME 83.3 fL (81.0-99.0); MEAN CORPUSCULAR HEMOGLOBIN 27.9 pg (27.0-31.0); MEAN CORPUSCULAR HGB CONC 33.5 g/dL (33.0-37.0); MONO # 1.6 K/uL (0.0-0.8); NEUT # 15.4 K/uL (1.8-7.0); NEUT % 76.8 % (50.0-75.0); RBC 2.85 Mil/uL (3.80-5.20); RED CELL DISTRIBUTION WIDTH 15.5 % (11.5-14.5)
[2017-06-06 06:45] LABS: WHITE BLOOD COUNT 20.1 K/uL (4.8-10.8)
[2017-06-06 06:48] LABS: ALB/GLOB RATIO 0.8 (1.0-2.1); ALBUMIN 3.4 g/dL (3.5-5.0); ALT/SGPT 51 U/L (9-52); AST/SGOT 32 U/L (14-36); BLOOD UREA NITROGEN 25 mg/dL (7-17); GFR AFRICAN-AMERICAN > 60; GFR NON-AFRICAN AMERICAN > 60
[2017-06-06] MEDS: Vancomycin 1 gm/NS 200 ml 1 GM/200 ML BAG IVPB SCH (08:22)
[2017-06-06] MEDS: levETIRAcetam 100 mg/ml (5ml) Oral Syringe PO SCH ×2 (09:18→17:12)
--- NOTE | 2017-06-06 11:06 | CP.PCM.PN ---
Subjective - Date & Time of Evaluation Date of Evaluation: 06/06/17 Time of Evaluation: 07:00 - Subjective Subjective: PGY-1 Medicine progress note for Dr. Reyes Patient was seen and examined at bedside and in no acute distress. As per nursing, patient continues to have vomiting and diarrhea and is not able to tolerate her tube feeds. Patient continues to move lower extremities continuously. Unable to evaluate ROS as patient is non-verbal. Objective - Vital Signs/Intake and Output Vital Signs (last 24 hours): Temp Pulse Resp BP Pulse Ox 98.5 F 110 H 22 110/82 100 06/06/17 08:00 06/06/17 08:00 06/06/17 08:00 06/06/17 08:00 06/06/17 08:00 Intake and Output: 06/06/17 06/06/17 06:59 18:59 Intake Total 480 300 Output Total 401 Balance 79 300 - Medications Medications: Current Medications Acetaminophen (Tylenol 650mg/20.3ml Solution Ud) 650 mg PO Q4 PRN PRN Reason: Temperature Last Admin: 06/04/17 16:24 Dose: 650 mg Ascorbic Acid (Vitamin C 500 Mg Tab) 500 mg PO DAILY [facility] Last Admin: 06/06/17 09:18 Dose: 500 mg Ergocalciferol (Drisdol 50,000 Intl Units Cap) 1 cap PO QWK [facility] Last Admin: 06/02/17 10:19 Dose: 1 cap Heparin Sodium (Porcine) (Heparin) 5,000 units SC Q8 [facility] Last Admin: 06/06/17 05:58 Dose: 5,000 units Piperacillin Sod/Tazobactam (Sod 3.375 gm/ Sodium Chloride) 100 mls @ 100 mls/ hr IVPB Q6H [facility] Last Admin: 06/06/17 09:19 Dose: 100 mls/hr Vancomycin/Sodium Chloride (Vancomycin 1 Gm/Ns 200 Ml) 1 gm in 200 mls @ 166 mls/hr IVPB Q24H [facility] Stop: 06/10/17 08:31 Last Admin: 06/06/17 08:22 Dose: 166 mls/hr Levetiracetam (Keppra) 500 mg PO BID [facility] Last Admin: 06/06/17 09:18 Dose: 500 mg Metoclopramide HCl (Reglan) 10 mg IVP DAILY [facility] Last Admin: 06/06/17 09:18 Dose: 10 mg Metoprolol Tartrate (Lopressor) 5 mg IVP Q4H PRN PRN Reason: Systolic Blood Pressure Last Admin: 06/03/17 09:41 Dose: 5 mg Metoprolol Tartrate (Lopressor) 50 mg PO BID [facility] Last Admin: 06/06/17 09:18 Dose: 50 mg Pantoprazole Sodium (Protonix Inj) 40 mg IVP DAILY [facility] Last Admin: 06/06/17 09:18 Dose: 40 mg Ursodiol (Actigall) 300 mg PEG BID [facility] Last Admin: 06/06/17 09:18 Dose: 300 mg - Labs Labs: 06/06/17 06:30 06/06/17 06:31 PT 14.0 SECONDS (9.7-12.2) H 04/25/17 06:25 INR 1.2 04/25/17 06:25 APTT 32 SECONDS (21-34) 04/25/17 06:25 - Additional Findings Additional findings: - Constitutional Appears: No Acute Distress - Head Exam Head Exam: ATRAUMATIC - Eye Exam Eye Exam: EOMI, Normal appearance - ENT Exam ENT Exam: Mucous Membranes Moist - Respiratory Exam Respiratory Exam: Clear to Ausculation Bilateral, NORMAL BREATHING PATTERN. absent: Rhonchi, Wheezes, Respiratory Distress - Cardiovascular Exam Cardiovascular Exam: REGULAR RHYTHM, +S1, +S2 - GI/Abdominal Exam GI & Abdominal Exam: Soft, Normal Bowel Sounds. absent: Firm, Guarding, Rigid, Tenderness - Extremities Exam Extremities Exam: Normal Inspection. absent: Calf Tenderness, Pedal Edema - Neurological Exam Neurological Exam: Awake. absent: Oriented x3 - Psychiatric Exam Psychiatric exam: Anxious - Skin Skin Exam: Normal Color Assessment and Plan - Assessment and Plan (Free Text) Assessment: (1) Leukocytosis Assessment & Plan: WBC: 20.1 decreased from 45 * Lactate: .9 * blood culture: no growth after 24 hours * f/u urine culture * UA: 2+ protein, 6-10 hyaline casts Started Zosyn 3.375 IV Q6H (06/05/17) Started Vanco 1gm IV daily (06/05/17) (2) Duodenal obstruction Assessment & Plan: General Surgery, Dr. Mendez---> Help appreciated * post-operative day #47 status post gastrojejunostomy with bypass feeding tube placed. (3) Schizophrenia Assessment & Plan: - Seroquel 200mg PO BID - measure QTc and call if >500 (4) Seizure Assessment & Plan: - Keppra 500mg PO BID (5) Hypertension Assessment & Plan: with persistent tachycardia - Lopressor 50mg PO BID - Metoprolol 5mg IV q4h PRN (6) Elevated Alk Phos Assessment & Plan: 06/06: 260 AST: 32 ALT: 51 f/u GGT (7) Diarrhea Assessment & Plan: with emesis -f/u C. dif - tolerating tube feeds at target goal - not vomiting - surgery does not recommend revising jejunostomy - small bowel series was negative for obstruction - Ursodiol 300 mg PEG BID - as per GI if vomiting/ diarrhea do not resolve, repeat abdominal CT with PO and IV contrast (8) Prophylactic measure Assessment & Plan: - Continue PT/OT - Drisdol 50,000 IU 1cap PO qwk - VitC 500mg tab PO qd - DVT: Heparin 5000 U SC q8 - GI: Protonix 40mg IVP qd Discussed with attending, Dr. Amy Pate, PGY1
[2017-06-07] MEDS: Piperacill/Tazo 4.5gm in Dex 4.5 GM/100 ML BAG IVPB SCH ×4 (00:45→23:50)
[2017-06-07 07:38] LABS: ALB/GLOB RATIO 0.8 (1.0-2.1); ALBUMIN 3.4 g/dL (3.5-5.0); ALT/SGPT 49 U/L (9-52); AST/SGOT 23 U/L (14-36); BASO # 0.1 K/uL (0.0-0.2); BASO % 0.6 % (0.0-2.0); BLOOD UREA NITROGEN 19 mg/dL (7-17); CALCIUM 9.3 mg/dl (8.6-10.4); EOS # 0.2 K/uL (0.0-0.7); EOS % 1.4 % (0.0-4.0); GAMMA GLUTAMYL TRANSPEPTIDASE 100 U/L (8-78); GFR AFRICAN-AMERICAN > 60; GFR NON-AFRICAN AMERICAN > 60; HEMOGLOBIN 8.3 g/dL (11.0-16.0); LYMPH # 3.5 K/uL (1.0-4.3); LYMPH % 20.3 % (20.0-40.0); MEAN CELL VOLUME 84.3 fL (81.0-99.0); MEAN CORPUSCULAR HGB CONC 33.2 g/dL (33.0-37.0); MEAN PLATELET VOLUME 9.2 fL (7.2-11.7); MONO # 0.9 K/uL (0.0-0.8); MONO % 5.2 % (0.0-10.0); NEUT # 12.7 K/uL (1.8-7.0); NEUT % 72.5 % (50.0-75.0); RBC 2.97 Mil/uL (3.80-5.20); RED CELL DISTRIBUTION WIDTH 15.5 % (11.5-14.5); WHITE BLOOD COUNT 17.5 K/uL (4.8-10.8)
[2017-06-07] MEDS: Vancomycin 1 gm/NS 200 ml 1 GM/200 ML BAG IVPB SCH (08:10)
--- NOTE | 2017-06-07 11:56 | CP.PCM.PN ---
Subjective - Date & Time of Evaluation Date of Evaluation: 06/07/17 Time of Evaluation: 09:00 - Subjective Subjective: events noted back on IV antibiotics vanco level ok Objective - Vital Signs/Intake and Output Vital Signs (last 24 hours): Temp Pulse Resp BP Pulse Ox 98.3 F 133 H 20 110/76 99 06/07/17 08:00 06/07/17 08:00 06/07/17 08:00 06/07/17 08:00 06/07/17 08:00 Intake and Output: 06/07/17 06/07/17 06:59 18:59 Intake Total 400 Output Total 351 Balance 49 - Medications Medications: Current Medications Acetaminophen (Tylenol 650mg/20.3ml Solution Ud) 650 mg PO Q4 PRN PRN Reason: Temperature Last Admin: 06/04/17 16:24 Dose: 650 mg Ascorbic Acid (Vitamin C 500 Mg Tab) 500 mg PO DAILY [facility] Last Admin: 06/07/17 09:32 Dose: 500 mg Ergocalciferol (Drisdol 50,000 Intl Units Cap) 1 cap PO QWK [facility] Last Admin: 06/02/17 10:19 Dose: 1 cap Heparin Sodium (Porcine) (Heparin) 5,000 units SC Q8 [facility] Last Admin: 06/07/17 05:58 Dose: 5,000 units Vancomycin/Sodium Chloride (Vancomycin 1 Gm/Ns 200 Ml) 1 gm in 200 mls @ 166 mls/hr IVPB Q24H [facility] Stop: 06/10/17 08:31 Last Admin: 06/07/17 08:10 Dose: 166 mls/hr Piperacillin Sod/Tazobactam Sod (Zosyn 4.5 Gm Iv Premix) 4.5 gm in 100 mls @ 100 mls/hr IVPB Q8H [facility] Last Admin: 06/07/17 07:52 Dose: 100 mls/hr Levetiracetam (Keppra) 500 mg PO BID [facility] Last Admin: 06/06/17 17:12 Dose: 500 mg Metoclopramide HCl (Reglan) 10 mg IVP DAILY [facility] Last Admin: 06/07/17 09:32 Dose: 10 mg Metoprolol Tartrate (Lopressor) 5 mg IVP Q4H PRN PRN Reason: Systolic Blood Pressure Last Admin: 06/03/17 09:41 Dose: 5 mg Metoprolol Tartrate (Lopressor) 50 mg PO BID [facility] Last Admin: 06/07/17 09:32 Dose: 50 mg Pantoprazole Sodium (Protonix Inj) 40 mg IVP DAILY [facility] Last Admin: 06/07/17 09:32 Dose: 40 mg Ursodiol (Actigall) 300 mg PEG BID [facility] Last Admin: 06/07/17 09:30 Dose: 300 mg - Labs Labs: 06/07/17 07:05 06/07/17 07:05 PT 14.0 SECONDS (9.7-12.2) H 04/25/17 06:25 INR 1.2 04/25/17 06:25 APTT 32 SECONDS (21-34) 04/25/17 06:25 - Constitutional Appears: Confused, Cachectic, Chronically Ill - Head Exam Head Exam: NORMOCEPHALIC - Eye Exam Eye Exam: PERRL - ENT Exam ENT Exam: Mucous Membranes Dry - Neck Exam Neck Exam: absent: Lymphadenopathy, Thyromegaly - Respiratory Exam Respiratory Exam: Decreased Breath Sounds - Cardiovascular Exam Cardiovascular Exam: REGULAR RHYTHM - GI/Abdominal Exam GI & Abdominal Exam: Distended, Soft - Rectal Exam Rectal Exam: Deferred Assessment and Plan (1) Acute pancreatitis Status: Resolved (2) Leucocytosis Status: Acute
[2017-06-07] MEDS: levETIRAcetam 100 mg/ml (5ml) Oral Syringe PO SCH ×3 (13:35→17:39)
--- NOTE | 2017-06-07 17:32 | CP.PCM.PN ---
Subjective - Date & Time of Evaluation Date of Evaluation: 06/07/17 Time of Evaluation: 09:25 - Subjective Subjective: PGY1 Medicine Note for Dr. Reyes Patient seen and examined at bedside this morning. Patient has vomited multiple yesterday and today causing the nurses to stop bolus feelings. Patient appears to resting comfortably in bed. ROS is unattainable due to the patient being non- verbal. Objective - Vital Signs/Intake and Output Vital Signs (last 24 hours): Temp Pulse Resp BP Pulse Ox 98.2 F 133 H 20 110/76 99 06/07/17 12:00 06/07/17 08:00 06/07/17 08:00 06/07/17 08:00 06/07/17 08:00 Intake and Output: 06/07/17 06/07/17 06:59 18:59 Intake Total 400 Output Total 351 Balance 49 - Medications Medications: Current Medications Acetaminophen (Tylenol 650mg/20.3ml Solution Ud) 650 mg PO Q4 PRN PRN Reason: Temperature Last Admin: 06/04/17 16:24 Dose: 650 mg Ascorbic Acid (Vitamin C 500 Mg Tab) 500 mg PO DAILY [facility] Last Admin: 06/07/17 09:32 Dose: 500 mg Ergocalciferol (Drisdol 50,000 Intl Units Cap) 1 cap PO QWK [facility] Last Admin: 06/02/17 10:19 Dose: 1 cap Heparin Sodium (Porcine) (Heparin) 5,000 units SC Q8 [facility] Last Admin: 06/07/17 14:07 Dose: 5,000 units Vancomycin/Sodium Chloride (Vancomycin 1 Gm/Ns 200 Ml) 1 gm in 200 mls @ 166 mls/hr IVPB Q24H [facility] Stop: 06/10/17 08:31 Last Admin: 06/07/17 08:10 Dose: 166 mls/hr Piperacillin Sod/Tazobactam Sod (Zosyn 4.5 Gm Iv Premix) 4.5 gm in 100 mls @ 100 mls/hr IVPB Q8H [facility] Last Admin: 06/07/17 15:18 Dose: 100 mls/hr Levetiracetam (Keppra) 500 mg PO BID [facility] Last Admin: 06/07/17 13:58 Dose: 500 mg Metoclopramide HCl (Reglan) 10 mg IVP DAILY [facility] Last Admin: 06/07/17 09:32 Dose: 10 mg Metoprolol Tartrate (Lopressor) 5 mg IVP Q4H PRN PRN Reason: Systolic Blood Pressure Last Admin: 06/03/17 09:41 Dose: 5 mg Metoprolol Tartrate (Lopressor) 50 mg PO BID [facility] Last Admin: 06/07/17 09:32 Dose: 50 mg Pantoprazole Sodium (Protonix Inj) 40 mg IVP DAILY [facility] Last Admin: 06/07/17 09:32 Dose: 40 mg Ursodiol (Actigall) 300 mg PEG BID [facility] Last Admin: 06/07/17 09:30 Dose: 300 mg - Labs Labs: 06/07/17 07:05 06/07/17 07:05 PT 14.0 SECONDS (9.7-12.2) H 04/25/17 06:25 INR 1.2 04/25/17 06:25 APTT 32 SECONDS (21-34) 04/25/17 06:25 - Constitutional Appears: No Acute Distress - Head Exam Head Exam: ATRAUMATIC, NORMOCEPHALIC - Eye Exam Eye Exam: EOMI, Normal appearance - ENT Exam ENT Exam: Mucous Membranes Moist - Respiratory Exam Respiratory Exam: Clear to Ausculation Bilateral, NORMAL BREATHING PATTERN. absent: Rales, Rhonchi, Wheezes, Respiratory Distress - Cardiovascular Exam Cardiovascular Exam: REGULAR RHYTHM, +S1, +S2 - GI/Abdominal Exam GI & Abdominal Exam: Soft, Normal Bowel Sounds. absent: Distended, Firm, Guarding, Rigid, Tenderness - Extremities Exam Extremities Exam: Normal Inspection. absent: Calf Tenderness, Pedal Edema - Neurological Exam Neurological Exam: Alert, Awake. absent: Oriented x3 - Psychiatric Exam Psychiatric exam: Anxious - Skin Skin Exam: Dry, Normal Color, Warm Assessment and Plan - Assessment and Plan (Free Text) Plan: Leukocytosis WBC: 17.5 - decreased from 20.1 (06/06) and 45.0 (06/05) * Lactate: .9 * blood culture 06/05: no growth after 48 hours * urine culture 06/05: no growth * UA: 2+ protein, 6-10 hyaline casts Started Zosyn 4.5 IV Q8H (06/05/17) Started Vanco 1gm IV daily (06/05/17) Duodenal obstruction General Surgery, Dr. Mendez---> Help appreciated * post-operative day #48 status post gastrojejunostomy with bypass feeding tube placed. * tube feedings decreased to 50mL bolus feeds. if patient is still vomiting in morning, will send for repeat CT to eval for repeat obstruction. Mental disability/Schizophrenia - Seroquel 200mg PO BID - measure QTc and call if >500 Seizure - Keppra 500mg PO BID Hypertension with persistent tachycardia - Lopressor 50mg PO BID - Metoprolol 5mg IV q4h PRN Elevated Alk Phos 06/07: 232 AST: 23 ALT: 49 Diarrhea with emesis - f/u repeat C.Diff 06/06 - not tolerating tube feeds at target goal - small bowel series was negative for obstruction 06/03 - Ursodiol 300 mg PEG BID - as per GI if vomiting/diarrhea do not resolve, repeat abdominal CT with PO and IV contrast Prophylactic measure - Continue PT/OT - Drisdol 50,000 IU 1cap PO qwk - VitC 500mg tab PO qd - DVT: Heparin 5000 U SC q8 - GI: Protonix 40mg IVP qd Case discussed with Dr. Amy Odom Maynor PGY1
[2017-06-07] MEDS ORDERED: Metoprolol 1 mg/ml Inj IVP PRN (22:00)
--- NOTE | 2017-06-08 07:03 | CP.PCM.PN ---
Subjective - Date & Time of Evaluation Date of Evaluation: 06/08/17 Time of Evaluation: 07:30 - Subjective Subjective: PGY1 Medicine Note for Dr. Reyes Patient seen and examined at bedside this morning. No acute events reported overnight. ROS unattainable due to patient non-verbal. Objective - Vital Signs/Intake and Output Vital Signs (last 24 hours): Temp Pulse Resp BP Pulse Ox 98.5 F 112 H 18 112/85 100 06/08/17 04:00 06/08/17 04:00 06/08/17 04:00 06/08/17 04:00 06/08/17 04:00 Intake and Output: 06/08/17 06/08/17 06:59 18:59 Intake Total 350 Output Total 400 Balance -50 - Medications Medications: Current Medications Acetaminophen (Tylenol 650mg/20.3ml Solution Ud) 650 mg PO Q4 PRN PRN Reason: Temperature Ascorbic Acid (Vitamin C 500 Mg Tab) 500 mg PO DAILY [facility] Ergocalciferol (Drisdol 50,000 Intl Units Cap) 1 cap PO QWK [facility] Last Admin: 06/02/17 10:19 Dose: 1 cap Heparin Sodium (Porcine) (Heparin) 5,000 units SC Q8 [facility] Last Admin: 06/07/17 22:03 Dose: Not Given Vancomycin/Sodium Chloride (Vancomycin 1 Gm/Ns 200 Ml) 1 gm in 200 mls @ 166 mls/hr IVPB Q24H [facility] Stop: 06/10/17 08:31 Last Admin: 06/07/17 08:10 Dose: 166 mls/hr Piperacillin Sod/Tazobactam Sod (Zosyn 4.5 Gm Iv Premix) 4.5 gm in 100 mls @ 100 mls/hr IVPB Q8H [facility] Last Admin: 06/07/17 23:50 Dose: 100 mls/hr Levetiracetam (Keppra) 500 mg PO BID [facility] Metoclopramide HCl (Reglan) 10 mg IVP DAILY [facility] Metoprolol Tartrate (Lopressor) 5 mg IVP Q4H PRN PRN Reason: Systolic Blood Pressure Metoprolol Tartrate (Lopressor) 50 mg PO BID [facility] Pantoprazole Sodium (Protonix Inj) 40 mg IVP DAILY [facility] Ursodiol (Actigall) 300 mg PEG BID [facility] Last Admin: 06/07/17 17:39 Dose: 300 mg - Labs Labs: 06/07/17 07:05 06/07/17 07:05 PT 14.0 SECONDS (9.7-12.2) H 04/25/17 06:25 INR 1.2 04/25/17 06:25 APTT 32 SECONDS (21-34) 04/25/17 06:25 - Constitutional Appears: No Acute Distress - Head Exam Head Exam: ATRAUMATIC, NORMOCEPHALIC - Eye Exam Eye Exam: EOMI - ENT Exam ENT Exam: Mucous Membranes Moist - Respiratory Exam Respiratory Exam: Clear to Ausculation Bilateral, NORMAL BREATHING PATTERN. absent: Accessory Muscle Use, Rales, Rhonchi, Wheezes, Respiratory Distress - Cardiovascular Exam Cardiovascular Exam: REGULAR RHYTHM, +S1, +S2 - GI/Abdominal Exam GI & Abdominal Exam: Soft, Normal Bowel Sounds. absent: Distended, Firm, Guarding, Rigid, Tenderness Additional comments: Ostomy putting out brown, liquid stool. - Extremities Exam Extremities Exam: absent: Calf Tenderness, Pedal Edema - Neurological Exam Neurological Exam: Alert, Awake. absent: Oriented x3 - Psychiatric Exam Psychiatric exam: Normal Mood - Skin Skin Exam: Dry, Warm Assessment and Plan - Assessment and Plan (Free Text) Plan: Leukocytosis WBC: 15.6 - decreased from 17.5 (06/07) to 20.1 (06/06) and 45.0 (06/05) * Lactate: .9 * blood culture 06/05: no growth after 48 hours * urine culture 06/05: no growth * UA: 2+ protein, 6-10 hyaline casts Started Zosyn 4.5 IV Q8H (06/05/17) Started Vanco 1gm IV daily (06/05/17) Duodenal obstruction General Surgery, Dr. Mendez---> Help appreciated * post-operative day #49 status post gastrojejunostomy with bypass feeding tube placed. * tube feedings decreased to 50mL bolus feeds. if patient is still vomiting in morning, will send for repeat CT to eval for repeat obstruction. Mental disability/Schizophrenia - Seroquel 200mg PO BID - measure QTc and call if >500 Seizure - Keppra 500mg PO BID Hypertension with persistent tachycardia - Lopressor 50mg PO BID - Metoprolol 5mg IV q4h PRN Elevated Alk Phos 06/07: 232 AST: 23 ALT: 49 Diarrhea with emesis - f/u repeat C.Diff 06/06 - not tolerating tube feeds at target goal - current feeds at 50mL bolus feeds - small bowel series was negative for obstruction 06/03 - Ursodiol 300 mg PEG BID - as per GI if vomiting/diarrhea do not resolve, repeat abdominal CT with PO and IV contrast Prophylactic measure - Continue PT/OT - Drisdol 50,000 IU 1cap PO qwk - VitC 500mg tab PO qd - DVT: Heparin 5000 U SC q8 - GI: Protonix 40mg IVP qd DISPO: Patient to be discharged to rehab upon approval. Patient's family will not be able to provide the care that would be necessary for the patient. Will discuss with SW placement. Case discussed with Dr. Amy Reedern PGY1
[2017-06-08] MEDS: Piperacill/Tazo 4.5gm in Dex 4.5 GM/100 ML BAG IVPB SCH ×2 (08:17→15:49)
[2017-06-08] MEDS: Vancomycin 1 gm/NS 200 ml 1 GM/200 ML BAG IVPB SCH (08:59)
[2017-06-08] MEDS: levETIRAcetam 100 mg/ml (5ml) Oral Syringe PO SCH ×2 (10:04→18:25)
[2017-06-08 11:43] LABS: ALB/GLOB RATIO 0.9 (1.0-2.1); ALBUMIN 3.6 g/dL (3.5-5.0); ALT/SGPT 44 U/L (9-52); AST/SGOT 31 U/L (14-36); BLOOD UREA NITROGEN 14 mg/dL (7-17); CALCIUM 9.2 mg/dl (8.6-10.4); GFR AFRICAN-AMERICAN > 60; GFR NON-AFRICAN AMERICAN > 60
[2017-06-08 11:44] LABS: BASO # 0.1 K/uL (0.0-0.2); BASO % 0.4 % (0.0-2.0); EOS # 0.3 K/uL (0.0-0.7); EOS % 1.8 % (0.0-4.0); HEMOGLOBIN 8.7 g/dL (11.0-16.0); LYMPH # 4.8 K/uL (1.0-4.3); LYMPH % 30.7 % (20.0-40.0); MEAN CELL VOLUME 83.6 fL (81.0-99.0); MEAN CORPUSCULAR HEMOGLOBIN 27.8 pg (27.0-31.0); MEAN CORPUSCULAR HGB CONC 33.3 g/dL (33.0-37.0); MEAN PLATELET VOLUME 8.2 fL (7.2-11.7); MONO # 1.3 K/uL (0.0-0.8); MONO % 8.3 % (0.0-10.0); NEUT # 9.2 K/uL (1.8-7.0); NEUT % 58.8 % (50.0-75.0); RBC 3.13 Mil/uL (3.80-5.20); RED CELL DISTRIBUTION WIDTH 14.9 % (11.5-14.5); WHITE BLOOD COUNT 15.6 K/uL (4.8-10.8)
[2017-06-09 07:28] LABS: BASO # 0.1 K/uL (0.0-0.2); BASO % 0.6 % (0.0-2.0); EOS # 0.3 K/uL (0.0-0.7); EOS % 2.4 % (0.0-4.0); HEMOGLOBIN 8.2 g/dL (11.0-16.0); LYMPH % 30.5 % (20.0-40.0); MEAN CELL VOLUME 84.9 fL (81.0-99.0); MEAN CORPUSCULAR HEMOGLOBIN 27.6 pg (27.0-31.0); MEAN CORPUSCULAR HGB CONC 32.5 g/dL (33.0-37.0); MEAN PLATELET VOLUME 8.6 fL (7.2-11.7); MONO # 1.1 K/uL (0.0-0.8); MONO % 8.4 % (0.0-10.0); NEUT # 7.6 K/uL (1.8-7.0); NEUT % 58.1 % (50.0-75.0); RBC 2.98 Mil/uL (3.80-5.20); RED CELL DISTRIBUTION WIDTH 15.8 % (11.5-14.5); WHITE BLOOD COUNT 13.1 K/uL (4.8-10.8)
--- NOTE | 2017-06-09 07:50 | CP.PCM.PN ---
Subjective - Date & Time of Evaluation Date of Evaluation: 06/09/17 Time of Evaluation: 07:50 - Subjective Subjective: PGY1 Medicine Note for Dr. Reyes Patient seen and examined at bedside this morning. No acute events reported overnight. ROS unattainable due to patient non-verbal. Objective - Vital Signs/Intake and Output Vital Signs (last 24 hours): Temp Pulse Resp BP Pulse Ox 98.2 F 100 H 20 115/72 98 06/09/17 06:00 06/09/17 06:00 06/09/17 06:00 06/09/17 06:00 06/09/17 06:00 Intake and Output: 06/09/17 06/09/17 06:59 18:59 Intake Total 970 Output Total 150 Balance 820 - Medications Medications: Current Medications Acetaminophen (Tylenol 650mg/20.3ml Solution Ud) 650 mg PO Q4 PRN PRN Reason: Temperature Ascorbic Acid (Vitamin C 500 Mg Tab) 500 mg PO DAILY [facility] Last Admin: 06/08/17 10:04 Dose: 500 mg Ergocalciferol (Drisdol 50,000 Intl Units Cap) 1 cap PO QWK [facility] Last Admin: 06/02/17 10:19 Dose: 1 cap Heparin Sodium (Porcine) (Heparin) 5,000 units SC Q8 [facility] Last Admin: 06/09/17 07:00 Dose: 5,000 units Vancomycin/Sodium Chloride (Vancomycin 1 Gm/Ns 200 Ml) 1 gm in 200 mls @ 166 mls/hr IVPB Q24H [facility] Stop: 06/10/17 08:31 Last Admin: 06/08/17 08:59 Dose: 166 mls/hr Piperacillin Sod/Tazobactam Sod (Zosyn 4.5 Gm Iv Premix) 4.5 gm in 100 mls @ 100 mls/hr IVPB Q8H [facility] Last Admin: 06/09/17 00:00 Dose: 100 mls/hr Levetiracetam (Keppra) 500 mg PO BID [facility] Last Admin: 06/08/17 18:25 Dose: 500 mg Metoclopramide HCl (Reglan) 10 mg IVP Q8H [facility] Last Admin: 06/09/17 00:29 Dose: 10 mg Metoprolol Tartrate (Lopressor) 5 mg IVP Q4H PRN PRN Reason: Systolic Blood Pressure Metoprolol Tartrate (Lopressor) 50 mg PO BID [facility] Last Admin: 06/08/17 18:25 Dose: 50 mg Pantoprazole Sodium (Protonix Inj) 40 mg IVP DAILY [facility] Last Admin: 06/08/17 10:05 Dose: 40 mg Quetiapine Fumarate (Seroquel) 200 mg PO BID [facility] Last Admin: 06/08/17 18:25 Dose: 200 mg Ursodiol (Actigall) 300 mg PEG BID [facility] Last Admin: 06/08/17 18:25 Dose: 300 mg - Labs Labs: 06/09/17 07:16 06/08/17 11:21 PT 14.0 SECONDS (9.7-12.2) H 04/25/17 06:25 INR 1.2 04/25/17 06:25 APTT 32 SECONDS (21-34) 04/25/17 06:25 - Constitutional Appears: No Acute Distress - Head Exam Head Exam: ATRAUMATIC, NORMOCEPHALIC - Eye Exam Eye Exam: EOMI - ENT Exam ENT Exam: Mucous Membranes Moist - Respiratory Exam Respiratory Exam: Clear to Ausculation Bilateral, NORMAL BREATHING PATTERN. absent: Accessory Muscle Use, Rales, Rhonchi, Wheezes, Respiratory Distress - Cardiovascular Exam Cardiovascular Exam: REGULAR RHYTHM, +S1, +S2 - GI/Abdominal Exam GI & Abdominal Exam: Soft, Normal Bowel Sounds. absent: Distended, Firm, Guarding, Rigid, Tenderness Additional comments: abdominal binder in place - Extremities Exam Extremities Exam: absent: Calf Tenderness, Pedal Edema - Neurological Exam Neurological Exam: Alert, Awake. absent: Oriented x3 - Psychiatric Exam Psychiatric exam: Normal Affect (baseline for patient), Normal Mood (baseline for patient) - Skin Skin Exam: Dry, Warm Assessment and Plan - Assessment and Plan (Free Text) Plan: Leukocytosis WBC: 13.1 - decreased from 15.6 (06/08), 17.5 (06/07), 20.1 (06/06) and 45.0 (06/05) * Lactate: .9 * blood culture 06/05: no growth after 4 days * urine culture 06/05: no growth * UA: 2+ protein, 6-10 hyaline casts Started Zosyn 4.5 IV Q8H (06/05/17) Started Vanco 1gm IV daily (06/05/17) Duodenal obstruction General Surgery, Dr. Mendez---> Help appreciated * post-operative day #50 status post gastrojejunostomy with bypass feeding tube placed. * tube feedings decreased to 50mL bolus feeds. if patient is still vomiting in morning, will send for repeat CT to eval for repeat obstruction. Mental disability/Schizophrenia - Seroquel 200mg PO BID - measure QTc and call if >500 Seizure - Keppra 500mg PO BID Hypertension with persistent tachycardia - Lopressor 50mg PO BID - Metoprolol 5mg IV q4h PRN Elevated Alk Phos Alk Phos: 176 AST: 31 ALT: 34 Diarrhea with emesis - tolerating tube feeds @ current feeds at 50mL bolus feeds, feeds increased up to 100mL - small bowel series was negative for obstruction 06/03 - Ursodiol 300 mg PEG BID - as per GI if vomiting/diarrhea do not resolve, repeat abdominal CT with PO and IV contrast Prophylactic measure - Continue PT/OT - Drisdol 50,000 IU 1cap PO qwk - VitC 500mg tab PO qd - DVT: Heparin 5000 U SC q8 - GI: Protonix 40mg IVP qd DISPO: Patient to be discharged to rehab upon approval. Patient's family will not be able to provide the care that would be necessary for the patient. Will discuss with SW placement. Plan to discharge to [facility]. Case discussed with Dr. Amy Odom Maynor PGY1
--- NOTE | 2017-06-09 08:02 | CON ---
DATE: REASON FOR CONSULTATION: Severe leukocytosis neutrophilia. HISTORY OF PRESENT ILLNESS: This is a 36-year-old female with schizophrenia, went for dinner a few days ago then developed diarrhea, fever, abdominal distention, small amount of vomiting. The patient has jejunostomy feeding tube percutaneous, so brought to the hospital. The patient's white cell count increased to as high as 45,000, most of them were neutrophils, so I am called on consult for further evaluation and suggestions. PAST MEDICAL HISTORY: Significant for schizophrenia and mentally handicapped. MEDICATIONS: The patient is right now on diluted vancomycin, metronidazole, Zofran and Protonix. ALLERGIES: NO KNOWN DRUG ALLERGIES. SOCIAL HISTORY: Mentally challenged, most of the information received from the family and the medical chart. REVIEW OF SYSTEMS: Difficult to be obtained. Nonverbal. PHYSICAL EXAMINATION: GENERAL: Awake, alert, quite, pleasant, not in acute distress.. VITAL SIGNS: Temperature 98.7, pulse 100, respirations 16, blood pressure 105/69. HEENT: Head, normocephalic, atraumatic. Eyes, conjunctivae pink. Sclerae white. Pupils reacting to light. Ear, nose and throat within normal limits. LUNGS: Bilaterally good air entry. Clear to auscultation and percussion. HEART: S1 and S2 regular. No gallop. No murmur. ABDOMEN: Soft, nondistended and nontender. No hepatosplenomegaly. SPECIAL PROCEDURES NURSE: No gross motor or sensory deficits. LYMPH NODE: No cervical, axillary or inguinal lymph nodes palpable. LABORATORY DATA: WBC 17,500, hemoglobin 8.3, hematocrit 25.1, platelet count 473,000. SMA-18 is essentially normal except alkaline phosphatase of 232 and albumin is 3.4. The WBC counts were 45,000 with 36,500 neutrophils on 06/05/2017. IMPRESSION: 1. Anemia of chronic disease. 2. Reactive leukocytosis neutrophilia. 3. Reactive thrombocytosis. PLAN: Clinically, the patient has improved, WBC has improved, neutrophil has decreased, hemoglobin is stable, platelets are improving, thus hematologically stable and some improvement. We will follow up the patient with you. If need arise, please refer the patient back to me. Thank you for letting me participate in the care of this patient. Onesimo Hargrove MD
[2017-06-09] MEDS: Piperacill/Tazo 4.5gm in Dex 4.5 GM/100 ML BAG IVPB SCH ×3 (08:27→16:00)
[2017-06-09] MEDS: Vancomycin 1 gm/NS 200 ml 1 GM/200 ML BAG IVPB SCH (09:30)
[2017-06-09 09:49] LABS: ALB/GLOB RATIO 0.8 (1.0-2.1); ALBUMIN 3.3 g/dL (3.5-5.0); ALT/SGPT 34 U/L (9-52); AST/SGOT 31 U/L (14-36); BLOOD UREA NITROGEN 13 mg/dL (7-17); CALCIUM 9.7 mg/dl (8.6-10.4); GFR AFRICAN-AMERICAN > 60; GFR NON-AFRICAN AMERICAN > 60
[2017-06-09] MEDS: Ergocalciferol 50,000 Intl Units Cap PO SCH ×2 (10:52→10:57)
[2017-06-09] MEDS: levETIRAcetam 100 mg/ml (5ml) Oral Syringe PO SCH ×2 (10:52→18:05)
[2017-06-10] MEDS: Piperacill/Tazo 4.5gm in Dex 4.5 GM/100 ML BAG IVPB SCH ×3 (00:44→16:11)
[2017-06-10 09:14] LABS: BASO # 0.1 K/uL (0.0-0.2); BASO % 0.3 % (0.0-2.0); EOS # 0.4 K/uL (0.0-0.7); EOS % 1.9 % (0.0-4.0); HEMOGLOBIN 7.9 g/dL (11.0-16.0); LYMPH # 3.5 K/uL (1.0-4.3); LYMPH % 17.1 % (20.0-40.0); MEAN CELL VOLUME 86.4 fL (81.0-99.0); MEAN CORPUSCULAR HEMOGLOBIN 27.3 pg (27.0-31.0); MEAN CORPUSCULAR HGB CONC 31.6 g/dL (33.0-37.0); MEAN PLATELET VOLUME 8.6 fL (7.2-11.7); MONO # 1.4 K/uL (0.0-0.8); MONO % 6.9 % (0.0-10.0); NEUT % 73.8 % (50.0-75.0); NRBC % 0.1 % (0.0-2.0); RBC 2.91 Mil/uL (3.80-5.20)
[2017-06-10 09:20] LABS: WHITE BLOOD COUNT 20.3 K/uL (4.8-10.8)
[2017-06-10] MEDS: Vancomycin 1 gm/NS 200 ml 1 GM/200 ML BAG IVPB SCH (09:30)
[2017-06-10 09:32] LABS: ALB/GLOB RATIO 0.8 (1.0-2.1); ALBUMIN 3.2 g/dL (3.5-5.0); ALT/SGPT 38 U/L (9-52); AST/SGOT 31 U/L (14-36); BLOOD UREA NITROGEN 14 mg/dL (7-17); CALCIUM 9.1 mg/dl (8.6-10.4); GFR AFRICAN-AMERICAN > 60; GFR NON-AFRICAN AMERICAN > 60
[2017-06-10] MEDS: levETIRAcetam 100 mg/ml (5ml) Oral Syringe PO SCH ×2 (10:21→17:13)
--- NOTE | 2017-06-10 15:32 | CP.PCM.PN ---
Subjective - Date & Time of Evaluation Date of Evaluation: 06/10/17 Time of Evaluation: 09:15 - Subjective Subjective: PGY1 Medicine Note for Dr. Reyes Patient seen and examined at bed. No acute events reported overnight. Patient tolerating her tube feeds. ROS unattainable due to patient non-verbal. Objective - Vital Signs/Intake and Output Vital Signs (last 24 hours): Temp Pulse Resp BP Pulse Ox 98.2 F 121 H 20 112/72 97 06/10/17 08:00 06/10/17 08:00 06/10/17 08:00 06/10/17 08:00 06/10/17 08:00 Intake and Output: 06/10/17 06/10/17 06:59 18:59 Intake Total 560 1140 Output Total 200 250 Balance 360 890 - Medications Medications: Current Medications Acetaminophen (Tylenol 650mg/20.3ml Solution Ud) 650 mg PO Q4 PRN PRN Reason: Temperature Ascorbic Acid (Vitamin C 500 Mg Tab) 500 mg PO DAILY [facility] Last Admin: 06/10/17 10:21 Dose: 500 mg Ergocalciferol (Drisdol 50,000 Intl Units Cap) 1 cap PO QWK [facility] Last Admin: 06/09/17 10:57 Dose: Not Given Heparin Sodium (Porcine) (Heparin) 5,000 units SC Q8 [facility] Last Admin: 06/10/17 14:05 Dose: 5,000 units Piperacillin Sod/Tazobactam Sod (Zosyn 4.5 Gm Iv Premix) 4.5 gm in 100 mls @ 100 mls/hr IVPB Q8H [facility] Last Admin: 06/10/17 08:28 Dose: 100 mls/hr Levetiracetam (Keppra) 500 mg PO BID [facility] Last Admin: 06/10/17 10:21 Dose: 500 mg Metoclopramide HCl (Reglan) 10 mg IVP Q8H [facility] Last Admin: 06/10/17 09:30 Dose: 10 mg Metoprolol Tartrate (Lopressor) 5 mg IVP Q4H PRN PRN Reason: Systolic Blood Pressure Metoprolol Tartrate (Lopressor) 50 mg PO BID [facility] Last Admin: 06/10/17 10:28 Dose: 50 mg Pantoprazole Sodium (Protonix Inj) 40 mg IVP DAILY [facility] Last Admin: 06/10/17 10:21 Dose: 40 mg Quetiapine Fumarate (Seroquel) 200 mg PO BID [facility] Last Admin: 06/10/17 10:22 Dose: 200 mg Ursodiol (Actigall) 300 mg PEG BID [facility] Last Admin: 06/10/17 10:22 Dose: 300 mg - Labs Labs: 06/10/17 09:06 06/10/17 09:06 PT 14.0 SECONDS (9.7-12.2) H 04/25/17 06:25 INR 1.2 04/25/17 06:25 APTT 32 SECONDS (21-34) 04/25/17 06:25 - Constitutional Appears: Non-toxic, No Acute Distress - Head Exam Head Exam: ATRAUMATIC, NORMOCEPHALIC - Eye Exam Eye Exam: EOMI - ENT Exam ENT Exam: Mucous Membranes Moist - Respiratory Exam Respiratory Exam: Clear to Ausculation Bilateral, NORMAL BREATHING PATTERN. absent: Accessory Muscle Use, Rales, Rhonchi, Wheezes, Respiratory Distress - Cardiovascular Exam Cardiovascular Exam: REGULAR RHYTHM, +S1, +S2 - GI/Abdominal Exam GI & Abdominal Exam: Soft, Normal Bowel Sounds. absent: Distended, Firm, Guarding, Rigid, Tenderness Additional comments: abdominal binder in place. - Extremities Exam Extremities Exam: absent: Calf Tenderness, Pedal Edema - Neurological Exam Neurological Exam: Alert, Awake. absent: Oriented x3 - Psychiatric Exam Psychiatric exam: Normal Affect (baseline), Normal Mood (baseline) - Skin Skin Exam: Dry, Warm Assessment and Plan - Assessment and Plan (Free Text) Plan: Leukocytosis WBC: 20.3 - increased from 13.1 (06/09)- decreased from 15.6 (06/08), 17.5 (06/07), 20.1 (06/06) and 45.0 (06/05) * Lactate: .9 * blood culture 06/05: no growth after 5 days * urine culture 06/05: no growth * UA: 2+ protein, 6-10 hyaline casts Zosyn 4.5 IV Q8H (06/05/17) - discontinue 3/2 Vanco 1gm IV daily (06/05/17) - discontinue 3/2 Duodenal obstruction General Surgery, Dr. Mendez---> Help appreciated * post-operative day #51 status post gastrojejunostomy with bypass feeding tube placed. * tube feedings decreased to 50mL bolus feeds. if patient is still vomiting in morning, will send for repeat CT to eval for repeat obstruction. Mental disability/Schizophrenia - Seroquel 200mg PO BID - measure QTc and call if >500 Seizure - Keppra 500mg PO BID Hypertension with persistent tachycardia - Lopressor 50mg PO BID - Metoprolol 5mg IV q4h PRN Elevated Alk Phos Alk Phos: 163 AST: 31 ALT: 38 Diarrhea - tolerating tube feeds @ current feeds at 50mL bolus feeds, feeds increased up to 100mL - small bowel series was negative for obstruction 06/03 - Ursodiol 300 mg PEG BID - as per GI if vomiting/diarrhea do not resolve, repeat abdominal CT with PO and IV contrast Prophylactic measure - Continue PT/OT - Drisdol 50,000 IU 1cap PO qwk - VitC 500mg tab PO qd - DVT: Heparin 5000 U SC q8 - GI: Protonix 40mg IVP qd DISPO: Patient to be discharged to rehab upon approval. Patient's family will not be able to provide the care that would be necessary for the patient. Will discuss with SW placement. Case discussed with Dr. Amy Odom Maynor PGY1
[2017-06-11] MEDS: Piperacill/Tazo 4.5gm in Dex 4.5 GM/100 ML BAG IVPB SCH ×4 (00:20→23:35)
[2017-06-11 07:35] LABS: BASO # 0.1 K/uL (0.0-0.2); BASO % 0.4 % (0.0-2.0); EOS # 0.4 K/uL (0.0-0.7); EOS % 2.8 % (0.0-4.0); HEMOGLOBIN 7.9 g/dL (11.0-16.0); LYMPH # 3.8 K/uL (1.0-4.3); LYMPH % 28.9 % (20.0-40.0); MEAN CELL VOLUME 85.3 fL (81.0-99.0); MEAN CORPUSCULAR HEMOGLOBIN 28.1 pg (27.0-31.0); MEAN CORPUSCULAR HGB CONC 32.9 g/dL (33.0-37.0); MEAN PLATELET VOLUME 8.9 fL (7.2-11.7); MONO # 1.1 K/uL (0.0-0.8); MONO % 8.7 % (0.0-10.0); NEUT # 7.8 K/uL (1.8-7.0); NEUT % 59.2 % (50.0-75.0); RBC 2.81 Mil/uL (3.80-5.20); RED CELL DISTRIBUTION WIDTH 16.1 % (11.5-14.5); WHITE BLOOD COUNT 13.1 K/uL (4.8-10.8)
[2017-06-11 07:47] LABS: ALB/GLOB RATIO 0.8 (1.0-2.1); ALBUMIN 3.1 g/dL (3.5-5.0); ALT/SGPT 35 U/L (9-52); AST/SGOT 40 U/L (14-36); BLOOD UREA NITROGEN 14 mg/dL (7-17); CALCIUM 9.2 mg/dl (8.6-10.4); GFR AFRICAN-AMERICAN > 60; GFR NON-AFRICAN AMERICAN > 60
[2017-06-11] MEDS: levETIRAcetam 100 mg/ml (5ml) Oral Syringe PO SCH ×2 (10:14→17:30)
--- NOTE | 2017-06-11 10:59 | CP.PCM.PN ---
Subjective - Date & Time of Evaluation Date of Evaluation: 06/11/17 Time of Evaluation: 09:00 - Subjective Subjective: Medicine Note for Dr. Reyes's Service Patient was seen and examined at bedside. No acute events reported overnight as per nursing. Patient tolerating her tube feeds. ROS unattainable due to patient non-verbal. Objective - Vital Signs/Intake and Output Vital Signs (last 24 hours): Temp Pulse Resp BP Pulse Ox 98.1 F 127 H 20 114/71 99 06/11/17 07:00 06/11/17 07:00 06/11/17 07:00 06/11/17 07:00 06/11/17 07:00 Intake and Output: 06/11/17 06/11/17 06:59 18:59 Intake Total 1020 Output Total 850 Balance 170 - Medications Medications: Current Medications Acetaminophen (Tylenol 650mg/20.3ml Solution Ud) 650 mg PO Q4 PRN PRN Reason: Temperature Ascorbic Acid (Vitamin C 500 Mg Tab) 500 mg PO DAILY [facility] Last Admin: 06/11/17 10:14 Dose: 500 mg Ergocalciferol (Drisdol 50,000 Intl Units Cap) 1 cap PO QWK [facility] Last Admin: 06/09/17 10:57 Dose: Not Given Heparin Sodium (Porcine) (Heparin) 5,000 units SC Q8 [facility] Last Admin: 06/11/17 05:15 Dose: 5,000 units Piperacillin Sod/Tazobactam Sod (Zosyn 4.5 Gm Iv Premix) 4.5 gm in 100 mls @ 100 mls/hr IVPB Q8H [facility] Last Admin: 06/11/17 08:44 Dose: 100 mls/hr Levetiracetam (Keppra) 500 mg PO BID [facility] Last Admin: 06/11/17 10:14 Dose: 500 mg Metoclopramide HCl (Reglan) 10 mg IVP Q8H [facility] Last Admin: 06/11/17 08:44 Dose: 10 mg Metoprolol Tartrate (Lopressor) 5 mg IVP Q4H PRN PRN Reason: Systolic Blood Pressure Metoprolol Tartrate (Lopressor) 50 mg PO BID [facility] Last Admin: 06/11/17 10:14 Dose: 50 mg Pantoprazole Sodium (Protonix Inj) 40 mg IVP DAILY [facility] Last Admin: 06/11/17 10:14 Dose: 40 mg Quetiapine Fumarate (Seroquel) 200 mg PO BID [facility] Last Admin: 06/11/17 10:15 Dose: 200 mg Ursodiol (Actigall) 300 mg PEG BID [facility] Last Admin: 06/11/17 10:14 Dose: 300 mg - Labs Labs: 06/11/17 07:22 06/11/17 07:22 PT 14.0 SECONDS (9.7-12.2) H 04/25/17 06:25 INR 1.2 04/25/17 06:25 APTT 32 SECONDS (21-34) 04/25/17 06:25 - Additional Findings Additional findings: - Constitutional Appears: Non-toxic, No Acute Distress - Head Exam Head Exam: ATRAUMATIC, NORMOCEPHALIC - Eye Exam Eye Exam: EOMI - ENT Exam ENT Exam: Mucous Membranes Moist - Respiratory Exam Respiratory Exam: Clear to Ausculation Bilateral, NORMAL BREATHING PATTERN. absent: Accessory Muscle Use, Rales, Rhonchi, Wheezes, Respiratory Distress - Cardiovascular Exam Cardiovascular Exam: REGULAR RHYTHM, +S1, +S2 - GI/Abdominal Exam GI & Abdominal Exam: Soft, Normal Bowel Sounds. absent: Distended, Firm, Guarding, Rigid, Tenderness Additional comments: abdominal binder in place. - Extremities Exam Extremities Exam: absent: Calf Tenderness, Pedal Edema - Neurological Exam Neurological Exam: Alert, Awake. absent: Oriented x3 - Psychiatric Exam Psychiatric exam: Normal Affect (baseline), Normal Mood (baseline) - Skin Skin Exam: Dry, Warm Assessment and Plan - Assessment and Plan (Free Text) Plan: Duodenal obstruction General Surgery, Dr. Mendez---> Help appreciated Status post gastrojejunostomy with bypass feeding tube placed on 04/18/17 * tube feedings decreased to 50mL bolus feeds. if patient is still vomiting in morning, will send for repeat CT to eval for repeat obstruction. Leukocytosis WBC: 13.1 (06/11/17) 20.3 - increased from 13.1 (06/09)- decreased from 15.6 (06/08) , 17.5 (06/07), 20.1 (06/06) and 45.0 (06/05) * Lactate: .9 * blood culture 06/05: no growth after 5 days * urine culture 2/25: no growth * UA: 2+ protein, 6-10 hyaline casts Zosyn 4.5 IV Q8H (06/05/17) - discontinue 3/4 Vanco 1gm IV daily (06/05/17) - discontinue 3/2 Mental disability/Schizophrenia - Seroquel 200mg PO BID - measure QTc and call if >500 Seizure - Keppra 500mg PO BID Hypertension with persistent tachycardia - Lopressor 50mg PO BID - Metoprolol 5mg IV q4h PRN Elevated Alk Phos downtrending; will continue to monitor Alk Phos: 163 AST: 31 ALT: 38 Diarrhea - tolerating tube feeds @ current feeds at 50mL bolus feeds, feeds increased up to 100mL - small bowel series was negative for obstruction 06/03 - Ursodiol 300 mg PEG BID - as per GI if vomiting/diarrhea do not resolve, repeat abdominal CT with PO and IV contrast Prophylactic measure - Continue PT/OT - Drisdol 50,000 IU 1cap PO qwk - VitC 500mg tab PO qd - DVT: Heparin 5000 U SC q8 - GI: Protonix 40mg IVP qd DISPO: Patient to be discharged to rehab upon approval. Patient's family will not be able to provide the care that would be necessary for the patient. Will discuss with SW placement. DW Dr. Reyes, Leslie Soto DO, PGY-1
--- NOTE | 2017-06-12 03:44 | CP.PCM.PN ---
Subjective - Date & Time of Evaluation Date of Evaluation: 06/12/17 Time of Evaluation: 03:43 - Subjective Subjective: Patient seen and examined at bedside. Patient resting comfortably in bed. Patient tolerating tube feeds. Per nursing, no acute issues at this time. ROS unattainable due to nonverbal status of patient. Objective - Vital Signs/Intake and Output Vital Signs (last 24 hours): Temp Pulse Resp BP Pulse Ox 98.8 F 115 H 20 112/68 98 06/12/17 00:18 06/12/17 00:18 06/12/17 00:18 06/12/17 00:18 06/12/17 00:18 Intake and Output: 06/11/17 06/12/17 18:59 06:59 Intake Total 500 Output Total 200 650 Balance 300 -650 - Medications Medications: Current Medications Acetaminophen (Tylenol 650mg/20.3ml Solution Ud) 650 mg PO Q4 PRN PRN Reason: Temperature Ascorbic Acid (Vitamin C 500 Mg Tab) 500 mg PO DAILY [facility] Last Admin: 06/11/17 10:14 Dose: 500 mg Ergocalciferol (Drisdol 50,000 Intl Units Cap) 1 cap PO QWK [facility] Last Admin: 06/09/17 10:57 Dose: Not Given Heparin Sodium (Porcine) (Heparin) 5,000 units SC Q8 [facility] Last Admin: 06/11/17 21:34 Dose: 5,000 units Piperacillin Sod/Tazobactam Sod (Zosyn 4.5 Gm Iv Premix) 4.5 gm in 100 mls @ 100 mls/hr IVPB Q8H [facility] Last Admin: 06/11/17 23:35 Dose: 100 mls/hr Levetiracetam (Keppra) 500 mg PO BID [facility] Last Admin: 06/11/17 17:30 Dose: 500 mg Metoclopramide HCl (Reglan) 10 mg IVP Q8H [facility] Last Admin: 06/11/17 23:34 Dose: 10 mg Metoprolol Tartrate (Lopressor) 5 mg IVP Q4H PRN PRN Reason: Systolic Blood Pressure Metoprolol Tartrate (Lopressor) 50 mg PO BID [facility] Last Admin: 06/11/17 17:35 Dose: Not Given Pantoprazole Sodium (Protonix Inj) 40 mg IVP DAILY [facility] Last Admin: 06/11/17 10:14 Dose: 40 mg Quetiapine Fumarate (Seroquel) 200 mg PO BID [facility] Last Admin: 06/11/17 17:30 Dose: 200 mg Ursodiol (Actigall) 300 mg PEG BID [facility] Last Admin: 06/11/17 17:30 Dose: 300 mg - Labs Labs: 06/11/17 07:22 06/11/17 07:22 PT 14.0 SECONDS (9.7-12.2) H 04/25/17 06:25 INR 1.2 04/25/17 06:25 APTT 32 SECONDS (21-34) 04/25/17 06:25 - Additional Findings Additional findings: - Constitutional Appears: Non-toxic, No Acute Distress - Head Exam Head Exam: ATRAUMATIC, NORMOCEPHALIC - Eye Exam Eye Exam: EOMI - ENT Exam ENT Exam: Mucous Membranes Moist - Respiratory Exam Respiratory Exam: Clear to Ausculation Bilateral, NORMAL BREATHING PATTERN. absent: Accessory Muscle Use, Rales, Rhonchi, Wheezes, Respiratory Distress - Cardiovascular Exam Cardiovascular Exam: REGULAR RHYTHM, +S1, +S2 - GI/Abdominal Exam GI & Abdominal Exam: Soft, Normal Bowel Sounds. absent: Distended, Firm, Guarding, Rigid, Tenderness Additional comments: abdominal binder in place. - Extremities Exam Extremities Exam: absent: Calf Tenderness, Pedal Edema - Neurological Exam Neurological Exam: Alert, Awake. absent: Oriented x3 - Psychiatric Exam Psychiatric exam: Normal Affect (baseline), Normal Mood (baseline) - Skin Skin Exam: Dry, Warm Assessment and Plan - Assessment and Plan (Free Text) Plan: Duodenal obstruction General Surgery, Dr. Mendez---> Help appreciated Status post gastrojejunostomy with bypass feeding tube placed on 04/18/17 * tube feedings decreased to 50mL bolus feeds. if patient is still vomiting in morning, will send for repeat CT to eval for repeat obstruction. Leukocytosis WBC: 13.1 (06/11/17) 20.3 - increased from 13.1 (06/09)- decreased from 15.6 (06/08) , 17.5 (06/07), 20.1 (06/06) and 45.0 (06/05) * Lactate: .9 * blood culture 06/05: no growth after 5 days * urine culture 06/05: no growth * UA: 2+ protein, 6-10 hyaline casts Zosyn 4.5 IV Q8H (06/05/17) - discontinue 3/4 Vanco 1gm IV daily (06/05/17) - discontinue 3/2 Mental disability/Schizophrenia - Seroquel 200mg PO BID - measure QTc and call if >500 Seizure - Keppra 500mg PO BID Hypertension with persistent tachycardia - Lopressor 50mg PO BID - Metoprolol 5mg IV q4h PRN Elevated Alk Phos downtrending; will continue to monitor Alk Phos: 163 AST: 31 ALT: 38 Diarrhea - tolerating tube feeds @ current feeds at 50mL bolus feeds, feeds increased up to 100mL - small bowel series was negative for obstruction 06/03 - Ursodiol 300 mg PEG BID - as per GI if vomiting/diarrhea do not resolve, repeat abdominal CT with PO and IV contrast Prophylactic measure - Continue PT/OT - Drisdol 50,000 IU 1cap PO qwk - VitC 500mg tab PO qd - DVT: Heparin 5000 U SC q8 - GI: Protonix 40mg IVP qd DISPO: Patient to be discharged to rehab upon approval. Patient's family will not be able to provide the care that would be necessary for the patient. Will discuss with SW placement.
[2017-06-12 08:56] LABS: BASO % 0.5 % (0.0-2.0); EOS # 0.4 K/uL (0.0-0.7); EOS % 3.8 % (0.0-4.0); HEMOGLOBIN 7.9 g/dL (11.0-16.0); LYMPH # 2.7 K/uL (1.0-4.3); LYMPH % 29.5 % (20.0-40.0); MEAN CELL VOLUME 85.3 fL (81.0-99.0); MEAN CORPUSCULAR HEMOGLOBIN 28.8 pg (27.0-31.0); MEAN CORPUSCULAR HGB CONC 33.7 g/dL (33.0-37.0); MEAN PLATELET VOLUME 8.9 fL (7.2-11.7); MONO # 1.1 K/uL (0.0-0.8); MONO % 11.6 % (0.0-10.0); NEUT # 5.1 K/uL (1.8-7.0); NEUT % 54.6 % (50.0-75.0); RBC 2.73 Mil/uL (3.80-5.20); RED CELL DISTRIBUTION WIDTH 16.7 % (11.5-14.5); WHITE BLOOD COUNT 9.3 K/uL (4.8-10.8)
[2017-06-12] MEDS: Piperacill/Tazo 4.5gm in Dex 4.5 GM/100 ML BAG IVPB SCH (09:00)
[2017-06-12 09:17] LABS: ALB/GLOB RATIO 0.8 (1.0-2.1); ALT/SGPT 37 U/L (9-52); AST/SGOT 28 U/L (14-36); BLOOD UREA NITROGEN 15 mg/dL (7-17); CALCIUM 9.1 mg/dl (8.6-10.4); GFR AFRICAN-AMERICAN > 60; GFR NON-AFRICAN AMERICAN > 60
[2017-06-12] MEDS: levETIRAcetam 100 mg/ml (5ml) Oral Syringe PO SCH ×2 (11:00→17:31)
[2017-06-12] MEDS ORDERED: Potassium Chloride 20 mEq/15 ml LIQ UD PO ONE (11:34)
--- NOTE | 2017-06-12 13:39 | CP.PCM.PN ---
Subjective - Date & Time of Evaluation Date of Evaluation: 06/12/17 Time of Evaluation: 08:00 - Subjective Subjective: afeb on IV Zosyn Objective - Vital Signs/Intake and Output Vital Signs (last 24 hours): Temp Pulse Resp BP Pulse Ox 98.0 F 76 20 104/70 96 06/12/17 08:35 06/12/17 08:35 06/12/17 08:35 06/12/17 08:35 06/12/17 08:35 Intake and Output: 06/12/17 06/12/17 06:59 18:59 Output Total 650 Balance -650 - Medications Medications: Current Medications Acetaminophen (Tylenol 650mg/20.3ml Solution Ud) 650 mg PO Q4 PRN PRN Reason: Temperature Ascorbic Acid (Vitamin C 500 Mg Tab) 500 mg PO DAILY [facility] Last Admin: 06/12/17 11:00 Dose: 500 mg Ergocalciferol (Drisdol 50,000 Intl Units Cap) 1 cap PO QWK [facility] Last Admin: 06/09/17 10:57 Dose: Not Given Heparin Sodium (Porcine) (Heparin) 5,000 units SC Q8 [facility] Last Admin: 06/12/17 05:30 Dose: 5,000 units Piperacillin Sod/Tazobactam Sod (Zosyn 4.5 Gm Iv Premix) 4.5 gm in 100 mls @ 100 mls/hr IVPB Q8H [facility] Last Admin: 06/12/17 09:00 Dose: 100 mls/hr Levetiracetam (Keppra) 500 mg PO BID [facility] Last Admin: 06/12/17 11:00 Dose: 500 mg Metoclopramide HCl (Reglan) 10 mg IVP Q8H [facility] Last Admin: 06/12/17 09:00 Dose: 10 mg Metoprolol Tartrate (Lopressor) 5 mg IVP Q4H PRN PRN Reason: Systolic Blood Pressure Metoprolol Tartrate (Lopressor) 50 mg PO BID [facility] Last Admin: 06/12/17 11:00 Dose: Not Given Pantoprazole Sodium (Protonix Inj) 40 mg IVP DAILY [facility] Last Admin: 06/12/17 11:00 Dose: 40 mg Quetiapine Fumarate (Seroquel) 200 mg PO BID [facility] Last Admin: 06/12/17 11:00 Dose: 200 mg Ursodiol (Actigall) 300 mg PEG BID [facility] Last Admin: 06/12/17 11:00 Dose: 300 mg - Labs Labs: 06/12/17 08:42 06/12/17 08:42 PT 14.0 SECONDS (9.7-12.2) H 04/25/17 06:25 INR 1.2 04/25/17 06:25 APTT 32 SECONDS (21-34) 04/25/17 06:25 - Constitutional Appears: Non-toxic, Chronically Ill - Head Exam Head Exam: NORMOCEPHALIC - Eye Exam Eye Exam: PERRL - ENT Exam ENT Exam: Mucous Membranes Dry - Neck Exam Neck Exam: absent: Lymphadenopathy - Respiratory Exam Respiratory Exam: Decreased Breath Sounds - Cardiovascular Exam Cardiovascular Exam: REGULAR RHYTHM - GI/Abdominal Exam GI & Abdominal Exam: Distended Assessment and Plan (1) Acute pancreatitis Status: Resolved (2) Leucocytosis Status: Acute
[2017-06-13 06:47] LABS: BASO % 0.5 % (0.0-2.0); EOS # 0.3 K/uL (0.0-0.7); EOS % 3.4 % (0.0-4.0); HEMOGLOBIN 8.4 g/dL (11.0-16.0); LYMPH # 2.7 K/uL (1.0-4.3); LYMPH % 32.5 % (20.0-40.0); MEAN CELL VOLUME 84.9 fL (81.0-99.0); MEAN CORPUSCULAR HEMOGLOBIN 28.7 pg (27.0-31.0); MEAN CORPUSCULAR HGB CONC 33.8 g/dL (33.0-37.0); MEAN PLATELET VOLUME 8.6 fL (7.2-11.7); MONO # 1.3 K/uL (0.0-0.8); NEUT # 4.1 K/uL (1.8-7.0); NEUT % 48.6 % (50.0-75.0); NRBC % 0.2 % (0.0-2.0); RBC 2.93 Mil/uL (3.80-5.20); RED CELL DISTRIBUTION WIDTH 16.7 % (11.5-14.5); WHITE BLOOD COUNT 8.4 K/uL (4.8-10.8)
[2017-06-13 07:02] LABS: ALB/GLOB RATIO 0.9 (1.0-2.1); ALBUMIN 3.2 g/dL (3.5-5.0); ALT/SGPT 33 U/L (9-52); AST/SGOT 27 U/L (14-36); BLOOD UREA NITROGEN 15 mg/dL (7-17); CALCIUM 9.3 mg/dl (8.6-10.4); GFR AFRICAN-AMERICAN > 60; GFR NON-AFRICAN AMERICAN > 60
[2017-06-13] MEDS: levETIRAcetam 100 mg/ml (5ml) Oral Syringe PO SCH ×2 (09:20→17:14)
--- NOTE | 2017-06-13 16:56 | CP.PCM.PN ---
Subjective - Date & Time of Evaluation Date of Evaluation: 06/13/17 Time of Evaluation: 07:20 - Subjective Subjective: PGY1 Medicine Note for Dr. Reyes Patient seen and examined at bed. No acute events reported overnight. Patient tolerating her tube feeds. ROS unattainable due to patient non-verbal. Objective - Vital Signs/Intake and Output Vital Signs (last 24 hours): Temp Pulse Resp BP Pulse Ox 98.5 F 110 H 20 104/73 97 06/13/17 08:08 06/13/17 12:15 06/13/17 08:08 06/13/17 12:15 06/13/17 12:15 Intake and Output: 06/13/17 06/13/17 06:59 18:59 Intake Total 610 Output Total 590 Balance 20 - Medications Medications: Current Medications Acetaminophen (Tylenol 650mg/20.3ml Solution Ud) 650 mg PO Q4 PRN PRN Reason: Temperature Ascorbic Acid (Vitamin C 500 Mg Tab) 500 mg PO DAILY [facility] Last Admin: 06/13/17 09:20 Dose: 500 mg Ergocalciferol (Drisdol 50,000 Intl Units Cap) 1 cap PO QWK [facility] Last Admin: 06/09/17 10:57 Dose: Not Given Levetiracetam (Keppra) 500 mg PO BID [facility] Last Admin: 06/13/17 09:20 Dose: 500 mg Metoclopramide HCl (Reglan) 10 mg IVP Q8H [facility] Last Admin: 06/13/17 16:19 Dose: 10 mg Metoprolol Tartrate (Lopressor) 5 mg IVP Q4H PRN PRN Reason: Systolic Blood Pressure Metoprolol Tartrate (Lopressor) 50 mg PO BID [facility] Last Admin: 06/13/17 09:17 Dose: 50 mg Pantoprazole Sodium (Protonix Inj) 40 mg IVP DAILY [facility] Last Admin: 06/13/17 09:20 Dose: 40 mg Quetiapine Fumarate (Seroquel) 200 mg PO BID [facility] Last Admin: 06/13/17 09:20 Dose: 200 mg Ursodiol (Actigall) 300 mg PEG BID [facility] Last Admin: 06/13/17 09:20 Dose: 300 mg - Labs Labs: 06/13/17 06:34 06/13/17 06:34 PT 14.0 SECONDS (9.7-12.2) H 04/25/17 06:25 INR 1.2 04/25/17 06:25 APTT 32 SECONDS (21-34) 04/25/17 06:25 - Constitutional Appears: Non-toxic - Head Exam Head Exam: ATRAUMATIC, NORMOCEPHALIC - Eye Exam Eye Exam: EOMI. absent: Scleral icterus - ENT Exam ENT Exam: Mucous Membranes Moist - Respiratory Exam Respiratory Exam: Clear to Ausculation Bilateral, NORMAL BREATHING PATTERN. absent: Accessory Muscle Use, Rales, Rhonchi, Wheezes, Respiratory Distress - Cardiovascular Exam Cardiovascular Exam: REGULAR RHYTHM, +S1, +S2 - GI/Abdominal Exam GI & Abdominal Exam: Soft, Normal Bowel Sounds. absent: Distended, Firm, Guarding, Rigid, Tenderness - Extremities Exam Extremities Exam: absent: Calf Tenderness, Pedal Edema - Neurological Exam Neurological Exam: Alert, Awake, Oriented x3 - Psychiatric Exam Psychiatric exam: Normal Affect (baseline), Normal Mood (baseline) - Skin Skin Exam: Dry, Warm Assessment and Plan - Assessment and Plan (Free Text) Plan: Leukocytosis WBC: 8.4 * blood culture 06/05: no growth after 5 days * urine culture 06/05: no growth * UA: 2+ protein, 6-10 hyaline casts Zosyn 4.5 IV Q8H (06/05/17) - discontinue 3/ Vanco 1gm IV daily (06/05/17) - discontinue 3/2 Duodenal obstruction General Surgery, Dr. Mendez---> Help appreciated * post-operative day #51 status post gastrojejunostomy with bypass feeding tube placed. * tube feedings decreased to 50mL bolus feeds. if patient is still vomiting in morning, will send for repeat CT to [facility] for repeat obstruction. Mental disability/Schizophrenia - Seroquel 200mg PO BID - measure QTc and call if >500 Seizure - Keppra 500mg PO BID Hypertension with persistent tachycardia - Lopressor 50mg PO BID - Metoprolol 5mg IV q4h PRN Elevated Alk Phos Alk Phos: 114 AST: 27 ALT: 33 Diarrhea - tolerating tube feeds @ current feeds at 50mL bolus feeds, feeds increased up to 100mL - small bowel series was negative for obstruction 06/03 - Ursodiol 300 mg PEG BID - as per GI if vomiting/diarrhea do not resolve, repeat abdominal CT with PO and IV contrast Prophylactic measure - Continue PT/OT - Drisdol 50,000 IU 1cap PO qwk - VitC 500mg tab PO qd - DVT: Heparin 5000 U SC q8 - GI: Protonix 40mg IVP qd DISPO: Patient to be discharged to rehab upon approval. Patient's family will not be able to provide the care that would be necessary for the patient. Once patient is approved, patient is to be discharged immediately. Case discussed with Dr. Amy Odom Maynor PGY1
[2017-06-14 07:27] LABS: BASO # 0.1 K/uL (0.0-0.2); BASO % 0.5 % (0.0-2.0); EOS # 0.3 K/uL (0.0-0.7); EOS % 2.4 % (0.0-4.0); HEMOGLOBIN 8.7 g/dL (11.0-16.0); LYMPH # 2.6 K/uL (1.0-4.3); LYMPH % 22.6 % (20.0-40.0); MEAN CELL VOLUME 84.8 fL (81.0-99.0); MEAN CORPUSCULAR HEMOGLOBIN 28.2 pg (27.0-31.0); MEAN CORPUSCULAR HGB CONC 33.3 g/dL (33.0-37.0); MEAN PLATELET VOLUME 8.6 fL (7.2-11.7); MONO # 1.9 K/uL (0.0-0.8); MONO % 16.6 % (0.0-10.0); NEUT # 6.6 K/uL (1.8-7.0); NEUT % 57.9 % (50.0-75.0); RBC 3.08 Mil/uL (3.80-5.20); RED CELL DISTRIBUTION WIDTH 16.5 % (11.5-14.5); WHITE BLOOD COUNT 11.4 K/uL (4.8-10.8)
[2017-06-14 07:42] LABS: ALB/GLOB RATIO 0.9 (1.0-2.1); ALBUMIN 3.4 g/dL (3.5-5.0); ALT/SGPT 32 U/L (9-52); AST/SGOT 44 U/L (14-36); BLOOD UREA NITROGEN 13 mg/dL (7-17); CALCIUM 9.6 mg/dl (8.6-10.4); GFR AFRICAN-AMERICAN > 60; GFR NON-AFRICAN AMERICAN > 60
[2017-06-14] MEDS: levETIRAcetam 100 mg/ml (5ml) Oral Syringe PO SCH ×2 (10:22→17:31)
--- NOTE | 2017-06-14 19:35 | CP.PCM.DIS ---
Provider - Provider Date of Admission: 03/27/17 23:35 Attending physician: Mauri Reyes Jr, MD Time Spent in preparation of Discharge (in minutes): 60 Hospital Course - Lab Results Lab Results: Micro Results 06/05/17 07:00 Blood-Venous Blood Culture - Final NO GROWTH AFTER 5 DAYS 06/05/17 07:00 Blood-Venous Gram Stain - Final TEST NOT PERFORMED 06/05/17 07:30 Blood-Venous Blood Culture - Final NO GROWTH AFTER 5 DAYS 06/05/17 07:30 Blood-Venous Gram Stain - Final TEST NOT PERFORMED 06/08/17 17:12 Naris MRSA Culture - Final MRSA NOT DETECTED 06/05/17 09:06 Urine,Catheterized Urine Culture - Final No Growth (<1,000 CFU/ML) 04/28/17 20:00 Other: Please Indicate Blood Fungal Culture - Final 04/25/17 12:02 Other: Please Indicate Blood Fungal Culture - Final 05/22/17 18:20 Trachasp Gram Stain - Final 05/22/17 18:20 Trachasp Sputum Culture - Final Pseudomonas Aeruginosa 04/18/17 07:27 Other: Please Indicate Blood Fungal Culture - Final 05/13/17 Unknown Urine,Catheterized Urine Culture - Final No Growth (<1,000 CFU/ML) 05/02/17 20:41 Blood Blood Culture - Final NO GROWTH AFTER 5 DAYS 05/02/17 20:41 Blood Gram Stain - Final TEST NOT PERFORMED 05/02/17 20:40 Blood Blood Culture - Final NO GROWTH AFTER 5 DAYS 05/02/17 20:40 Blood Gram Stain - Final TEST NOT PERFORMED 05/02/17 19:07 Trachasp Gram Stain - Final 05/02/17 19:07 Trachasp Sputum Culture - Final NORMAL ORAL DALTON 05/02/17 19:07 Urine Urine Culture - Final Gram Positive Cocci 04/28/17 20:00 Blood-Venous Blood Culture - Final NO GROWTH AFTER 5 DAYS 04/28/17 20:00 Blood-Venous Gram Stain - Final TEST NOT PERFORMED 04/28/17 20:00 Blood-Venous Blood Culture - Final NO GROWTH AFTER 5 DAYS 04/28/17 20:00 Blood-Venous Gram Stain - Final TEST NOT PERFORMED 04/30/17 15:10 Trachasp Gram Stain - Final 04/30/17 15:10 Trachasp Sputum Culture - Final NORMAL ORAL DALTON 04/30/17 08:19 Urine,Catheterized Urine Culture - Final No Growth (<1,000 CFU/ML) 04/24/17 13:00 Blood Blood Culture - Final NO GROWTH AFTER 5 DAYS 04/24/17 13:00 Blood Gram Stain - Final TEST NOT PERFORMED 04/24/17 12:45 Blood Blood Culture - Final NO GROWTH AFTER 5 DAYS 04/24/17 12:45 Blood Gram Stain - Final TEST NOT PERFORMED 04/18/17 22:15 Blood-Venous Blood Culture - Final NO GROWTH AFTER 5 DAYS 04/18/17 22:15 Blood-Venous Gram Stain - Final TEST NOT PERFORMED 04/18/17 21:45 Blood-Venous Blood Culture - Final NO GROWTH AFTER 5 DAYS 04/18/17 21:45 Blood-Venous Gram Stain - Final TEST NOT PERFORMED 04/18/17 21:42 Abdomen Gram Stain - Final 04/18/17 21:42 Abdomen Wound Culture - Final No growth. 04/18/17 22:42 Urine,Catheterized Urine Culture - Final Yeast Species 04/12/17 08:00 Stool Stool Culture - Final NO SALMONELLA, SHIGELLA OR CAMPYLOBACTER ISOLATED. 04/14/17 08:00 Rectal Fluid Ova and Parasite Concentrate Exam - Final 04/08/17 11:47 Blood-Venous Blood Culture - Final NO GROWTH AFTER 5 DAYS 04/08/17 11:47 Blood-Venous Gram Stain - Final TEST NOT PERFORMED 04/08/17 11:47 Blood-Venous Blood Culture - Final NO GROWTH AFTER 5 DAYS 04/08/17 11:47 Blood-Venous Gram Stain - Final TEST NOT PERFORMED 04/08/17 07:00 Naris MRSA Culture (Admit) - Final MRSA NOT DETECTED 04/08/17 12:10 Throat Group A Strep Throat Culture - Final NO BETA STREP GROUP A ISOLATED. 04/08/17 12:48 Urine,Tovar Urine Culture - Final No Growth (<1,000 CFU/ML) 04/06/17 12:36 Naris MRSA Culture - Final MRSA NOT DETECTED 03/27/17 22:35 Blood Blood Culture - Final NO GROWTH AFTER 5 DAYS 03/27/17 22:35 Blood Gram Stain - Final TEST NOT PERFORMED 03/27/17 22:35 Blood Blood Culture - Final NO GROWTH AFTER 5 DAYS 03/27/17 22:35 Blood Gram Stain - Final TEST NOT PERFORMED 03/28/17 02:08 Naris MRSA Culture (Admit) - Final MRSA NOT DETECTED 03/28/17 01:35 Urine,Clean Catch Urine Culture - Final No Growth (<1,000 CFU/ML) Most Recent Lab Values WBC 11.4 K/uL (4.8-10.8) H 06/14/17 07:08 RBC 3.08 Mil/uL (3.80-5.20) L 06/14/17 07:08 Hgb 8.7 g/dL (11.0-16.0) L 06/14/17 07:08 Hct 26.1 % (34.0-47.0) L 06/14/17 07:08 MCV 84.8 fL (81.0-99.0) 06/14/17 07:08 MCH 28.2 pg (27.0-31.0) 06/14/17 07:08 MCHC 33.3 g/dL (33.0-37.0) 06/14/17 07:08 RDW 16.5 % (11.5-14.5) H 06/14/17 07:08 Plt Count 411 K/uL (130-400) H 06/14/17 07:08 MPV 8.6 fL (7.2-11.7) 06/14/17 07:08 Neut % (Auto) 57.9 % (50.0-75.0) 06/14/17 07:08 Lymph % (Auto) 22.6 % (20.0-40.0) 06/14/17 07:08 Sanders % (Auto) 16.6 % (0.0-10.0) H 06/14/17 07:08 Eos % (Auto) 2.4 % (0.0-4.0) 06/14/17 07:08 Baso % (Auto) 0.5 % (0.0-2.0) 06/14/17 07:08 Neut # (Auto) 6.6 K/uL (1.8-7.0) 06/14/17 07:08 Lymph # (Auto) 2.6 K/uL (1.0-4.3) 06/14/17 07:08 Sanders # (Auto) 1.9 K/uL (0.0-0.8) H 06/14/17 07:08 Eos # (Auto) 0.3 K/uL (0.0-0.7) 06/14/17 07:08 Baso # (Auto) 0.1 K/uL (0.0-0.2) 06/14/17 07:08 Neutrophils % (Manual) 86 % (50-75) H 05/24/17 07:08 Basophils % (Manual) 1 % (0-2) 04/01/17 06:28 Band Neutrophils % 1 % (0-2) 05/24/17 07:08 Metamyelocytes % 1 % (0-0) H 04/10/17 06:52 Lymphocytes % (Manual) 5 % (20-40) L 05/24/17 07:08 Monocytes % (Manual) 7 % (0-10) 05/24/17 07:08 Eosinophils % (Manual) 1 % (0-4) 05/24/17 07:08 Differential Comment 06/10/17 09:06 Smudge Cells Present 04/13/17 06:37 Toxic Granulation Present 05/01/17 06:38 Plt Clumps, EDTA Present 04/19/17 17:42 Large Platelets Present 04/30/17 06:39 Giant Platelets Present 04/09/17 06:24 Platelet Estimate Normal (NORMAL) 05/24/17 07:08 RBC Morphology Normal 04/03/17 06:50 Polychromasia Slight 04/20/17 06:41 Basophilic Stippling Slight 04/27/17 06:27 Microcytosis (manual) Slight 04/19/17 06:12 Macrocytosis (manual) Slight 04/17/17 06:38 Tear Drop Cells Slight 05/01/17 06:38 Ovalocytes Slight 05/01/17 06:38 [place] Cells Slight 04/12/17 16:20 Hypochromasia (manual) Slight 05/24/17 07:08 Poikilocytosis (manual Slight 05/24/17 07:08 Anisocytosis (manual) Slight 05/24/17 07:08 Target Cells Slight 05/24/17 07:08 PT 14.0 SECONDS (9.7-12.2) H 04/25/17 06:25 INR 1.2 04/25/17 06:25 APTT 32 SECONDS (21-34) 04/25/17 06:25 D-Dimer, Quantitative 4184 ng/mlDDU (0-243) H 04/05/17 22:38 Puncture Site Rb 05/23/17 02:40 pCO2 43 mm/Hg (35-45) 05/23/17 02:40 pO2 185 mm/Hg (80-100) H 05/23/17 02:40 HCO3 25.6 mmol/L (21-28) 05/23/17 02:40 ABG pH 7.39 (7.35-7.45) 05/23/17 02:40 ABG Total CO2 27.3 mmol/L (22-28) 05/23/17 02:40 ABG Hemoglobin 7.8 g/dL (11.7-17.4) L 05/05/17 05:07 ABG O2 Saturation 99.9 % (95-98) H 05/23/17 02:40 ABG Carboxyhemoglobin 1.2 % (0.5-1.5) 05/05/17 05:07 POC ABG HHb (Measured) 0.1 % (0.0-5.0) 05/05/17 05:07 ABG Base Excess 0.8 mmol/L (-2.0-3.0) 05/23/17 02:40 ABG Methemoglobin 0.6 % (0.0-3.0) 05/05/17 05:07 Daniel Test Na 05/23/17 02:40 ABG Potassium 3.2 mmol/L (3.6-5.2) L 05/23/17 02:40 VBG pH 7.43 (7.32-7.43) 04/06/17 09:10 VBG pCO2 42 mmHg (40-60) 04/06/17 09:10 VBG HCO3 26.9 mmol/L 04/06/17 09:10 VBG Total CO2 29.2 mmol/L (22-28) H 04/06/17 09:10 VBG O2 Sat (Calc) 83.0 % (40-65) H 04/06/17 09:10 VBG Base Excess 3.2 mmol/L (0.0-2.0) H 04/06/17 09:10 VBG Potassium 3.5 mmol/L (3.6-5.2) L 04/06/17 09:10 Hgb O2 Saturation 98.1 % (95.0-98.0) H 05/05/17 05:07 A-a O2 Difference 46.0 mm/Hg 05/23/17 02:40 Respiratory Index 0.2 05/23/17 02:40 Liter Flow 3.0 04/14/17 05:28 Sodium 138.0 mmol/l (132-148) 05/23/17 02:40 Chloride 109.0 mmol/L (98-107) H 05/23/17 02:40 Glucose 100 mg/dl (65-105) 05/23/17 02:40 Vent Mode Prvc 05/05/17 05:07 Lactate 0.4 mmol/L (0.7-2.1) L 05/23/17 02:40 Mechanical Rate 16 05/05/17 05:07 Tidal Volume 450 05/05/17 05:07 PEEP 5 05/05/17 05:07 FiO2 40.0 % 05/23/17 02:40 Crit Value Called To Dr hammer 04/18/17 14:30 Crit Value Called By Slevin cabral crt 04/18/17 14:30 Crit Value Read Back Y 04/18/17 14:30 Blood Gas Notified Time 1445 04/18/17 14:30 Sodium 137 mmol/L (132-148) 06/14/17 07:08 Potassium 4.3 mmol/L (3.6-5.2) 06/14/17 07:08 Chloride 98 mmol/L (98-107) 06/14/17 07:08 Carbon Dioxide 26 mmol/L (22-30) 06/14/17 07:08 Anion Gap 17 (10-20) 06/14/17 07:08 BUN 13 mg/dL (7-17) 06/14/17 07:08 Creatinine 0.5 mg/dL (0.7-1.2) L 06/14/17 07:08 Est GFR ( Amer) > 60 06/14/17 07:08 Est GFR (Non-Af Amer) > 60 06/14/17 07:08 POC Glucose (mg/dL) 102 mg/dL (65-110) 05/29/17 11:54 Random Glucose 87 mg/dL (65-105) 06/14/17 07:08 Hemoglobin A1c 5.3 % (4.2-6.5) 03/28/17 05:41 Serum Osmolality 322 mosm/kg (272-300) H 04/27/17 14:40 Lactic Acid 0.9 mmol/L (0.7-2.1) 06/05/17 09:54 Ionized Calcium 5.5 mg/dL (4.80-5.60) 04/08/17 08:19 Calcium 9.6 mg/dl (8.6-10.4) 06/14/17 07:08 Phosphorus 5.6 mg/dL (2.5-4.5) H 06/07/17 07:05 Magnesium 2.1 mg/dL (1.6-2.3) 06/07/17 07:05 Direct Bilirubin 0.4 mg/dL (0.0-0.4) 04/08/17 08:19 Total Bilirubin 0.3 mg/dL (0.2-1.3) 06/14/17 07:08 GGT 100 U/L (8-78) H 06/07/17 07:05 AST 44 U/L (14-36) H D 06/14/17 07:08 ALT 32 U/L (9-52) 06/14/17 07:08 Alkaline Phosphatase 121 U/L (38-126) 06/14/17 07:08 Ammonia < 9 umol/L (9-33) L 04/08/17 08:19 Lactate Dehydrogenase 648 U/L (313-618) H 04/08/17 12:45 Total Protein 7.2 g/dL (6.3-8.3) 06/14/17 07:08 Albumin 3.4 g/dL (3.5-5.0) L 06/14/17 07:08 Globulin 3.9 gm/dL (2.2-3.9) 06/14/17 07:08 Albumin/Globulin Ratio 0.9 (1.0-2.1) L 06/14/17 07:08 Ceruloplasmin 27 mg/dL (18-53) 04/08/17 11:49 Triglycerides 86 mg/dL (0-149) 04/09/17 16:35 Cholesterol 77 mg/dL (0-199) 04/09/17 16:35 LDL Cholesterol Direct < 30 mg/dL (0-129) 04/09/17 16:35 HDL Cholesterol 19 mg/dL (30-70) L 04/09/17 16:35 Amylase 94 U/L (30-110) 04/02/17 06:58 Lipase 320 U/L (23-300) H 04/02/17 06:58 Carcinoembryonic Ag 1.0 ng/mL (0-3.0) 03/28/17 14:55 CA 19-9 Antigen 5.1 U/mL (0-37) 03/28/17 14:55 CA 125 Antigen 9.0 U/mL (0-35) 03/28/17 14:55 Vitamin B12 638 pg/mL (239-931) 04/16/17 06:22 Folate 12.6 ng/mL 04/16/17 06:22 25-OH Vitamin D Total < 12.8 NG/ML (30.0-100.0) L 06/06/17 17:33 TSH 3rd Generation 0.46 mIU/L (0.46-4.68) 04/13/17 06:37 Procalcitonin 0.32 NG/ML (0.19-0.49) 05/25/17 11:40 Monomeric Prolactin 109.0 ng/mL (3.2-25.2) H 04/21/17 08:32 Prolactin 124.4 ng/mL H 04/21/17 08:32 Beta HCG, Quant < 2.39 mIU/ML 05/23/17 11:49 Venous Blood Potassium 3.5 mmol/L (3.6-5.2) L 04/06/17 09:10 Arterial Blood Potassium 3.2 mmol/L (3.6-5.2) L 05/23/17 02:40 Urine Color [place] (YELLOW) 06/05/17 09:02 Urine Clarity Hazy (Clear) 06/05/17 09:02 Urine pH 5.0 (5.0-8.0) 06/05/17 09:02 Ur Specific [place] 1.027 (1.003-1.030) 06/05/17 09:02 Urine Protein 2+ mg/dL (NEGATIVE) H 06/05/17 09:02 Urine Glucose (UA) 1+ mg/dL (Normal) 06/05/17 09:02 Urine Ketones Trace mg/dL (NEGATIVE) 06/05/17 09:02 Urine Blood Negative (NEGATIVE) 06/05/17 09:02 Urine Nitrate Negative (NEGATIVE) 06/05/17 09:02 Urine Bilirubin Negative (NEGATIVE) 06/05/17 09:02 Urine Urobilinogen Normal mg/dL (0.2-1.0) 06/05/17 09:02 Ur Leukocyte Esterase Neg Hermelindo/uL (Negative) 06/05/17 09:02 Urine WBC Clumps (Auto) Mod /hpf (NONE) H 03/28/17 01:35 Urine WBC (Auto) 4 /hpf (0-5) 06/05/17 09:02 Urine RBC (Auto) 2 /hpf (0-3) 06/05/17 09:02 Ur Squamous Epith Cells 1 /hpf (0-5) 06/05/17 09:02 Urine Bacteria Rare (<OCC) 06/05/17 09:02 Hyaline Casts 6-10 /lpf (0-2) H 06/05/17 09:02 Urine Yeast (Budding) Occ /hpf (NEGATIVE) H 03/28/17 01:35 Urine Osmolality 417 mosm/kg (300-1000) 04/27/17 14:40 U Random Total Protein Cancelled 04/08/17 15:32 Ur Random Sodium 92 mmol/L 04/27/17 14:40 Urine Chloride 17 mmol/L (32-290) L 04/08/17 15:32 Urine HCG, Qual Negative (NEGATIVE) 03/28/17 01:35 IgG, Serum (MS) 15.3 mg/dL (4-86) 04/09/17 16:44 Gastric Occult Blood Positive (NEGATIVE) H 03/30/17 12:56 Stool Sodium 6.10 mEq/L 04/12/17 07:32 Stool Potassium 61 mEq/L 04/12/17 07:32 Stool Chloride 6 mEq/L 04/12/17 07:32 Stool Occult Blood Positive (NEGATIVE) H 03/28/17 02:18 Stool Leukocytes, Qual Negative (NEGATIVE) 04/12/17 08:00 Stl Cryptosporidium Ag Not detected (Not detected) 04/12/17 07:32 Stl Giardia Antigen TEST NOT PERFORMED 04/12/17 07:32 Vancomycin Trough 11.4 ug/mL (5.0-10.0) H 06/07/17 07:45 Levetiracetam 6.5 mcg/mL 05/22/17 06:23 IgG 1062.8 mg/dL (700.0-1600.0) 06/02/17 06:36 JOSIAS 6 Profile Negative (NEGATIVE) 06/02/17 07:30 Anti-Mitochondrial Ab Negative (Negative) 06/02/17 07:30 Anti-Smooth Muscle Ab Negative (Negative) 06/02/17 07:30 C. difficile Ag & Toxin Negative (NEGATIVE) 04/30/17 Unknown Cryptosp/Giardia Source Stool 04/12/17 07:32 Giardia Antigen Not detected (Not Detected) 04/12/17 07:32 Hep Bs Antigen Negative (NEGATIVE) 04/11/17 18:01 Hep Bs Antibody Positive (NEGATIVE) 04/11/17 18:01 Hep B Core IgM Ab Negative (NEGATIVE) 04/11/17 18:01 Hepatitis C Antibody Negative (NEGATIVE) 04/14/17 11:56 Ur L.pneumophila Ag Negative (NEGATIVE) 04/08/17 12:09 Mycoplasma pneumon IgG 1.09 (<=0.90) H 04/08/17 12:45 Mycoplasma pneumon IgM 96 U/mL (<770) 04/08/17 12:45 Grp A Beta Strep Ag Negative (NEGATIVE) 04/08/17 12:10 Blood Type O POSITIVE 04/21/17 09:45 Antibody Screen Negative 04/21/17 09:45 Crossmatch See Detail 04/21/17 09:45 Discharge Exam - Head Exam Head Exam: ATRAUMATIC, NORMOCEPHALIC Discharge Plan - Follow Up Plan Condition: CRITICAL Disposition: REHAB FACILITY/REHAB UNIT Additional Instructions: Patient is to be discharged to [facility], per Dr. Reyes. Patient is to continue her current medication regiment. Patient is to follow up with Dr. Reyes as an outpatient within two weeks of being discharged. Patient is to follow up with Dr. William Harmon (GI) as needed. Patient is eligible for pleasure feeds at this time. She is no longer NPO. Suggestions from Nursing Staff for Feeding: Very minimal water (~20-30mL) with bolus feeds. Suggestions from Physical Therapy: Patient responds better to name Allie. She is much more active when having a screen (tablet or TV) in front of her face, especially if playing Arabic music , during rehab. Referrals: William Harmon [Staff Provider] - Mauri Reyes Jr., MD [Medical Doctor] -
[2017-06-14] MEDS: Acetaminophen 650mg/20.3ml solution UD PO PRN (21:59)
[2017-06-15 00:31] VITALS: RESP 20
[2017-06-15 07:12] LABS: BASO % 0.3 % (0.0-2.0); EOS # 0.1 K/uL (0.0-0.7); EOS % 0.6 % (0.0-4.0); HEMOGLOBIN 9.1 g/dL (11.0-16.0); LYMPH # 2.8 K/uL (1.0-4.3); MEAN CELL VOLUME 84.6 fL (81.0-99.0); MEAN CORPUSCULAR HEMOGLOBIN 28.7 pg (27.0-31.0); MEAN PLATELET VOLUME 8.6 fL (7.2-11.7); MONO # 2.4 K/uL (0.0-0.8); MONO % 22.9 % (0.0-10.0); NEUT # 5.3 K/uL (1.8-7.0); NEUT % 50.2 % (50.0-75.0); NRBC % 0.1 % (0.0-2.0); PLATELET COUNT 415 K/uL (130-400); RBC 3.15 Mil/uL (3.80-5.20); RED CELL DISTRIBUTION WIDTH 16.9 % (11.5-14.5); WHITE BLOOD COUNT 10.6 K/uL (4.8-10.8)
[2017-06-15 07:42] LABS: ALB/GLOB RATIO 0.8 (1.0-2.1); ALBUMIN 3.5 g/dL (3.5-5.0); ALT/SGPT 31 U/L (9-52); AST/SGOT 33 U/L (14-36); BLOOD UREA NITROGEN 15 mg/dL (7-17); CALCIUM 9.6 mg/dl (8.6-10.4); GFR AFRICAN-AMERICAN > 60; GFR NON-AFRICAN AMERICAN > 60
[2017-06-15] MEDS: Acetaminophen 650mg/20.3ml solution UD PO PRN ×2 (08:23→18:15)
[2017-06-15 08:58] LABS: ANISOCYTOSIS SLIGHT; HYPOCHROMIC SLIGHT; LYMPHOCYTE 24 % (20-40); MONOCYTE 23 % (0-10); NEUTROPHIL 53 % (50-75); PLATELET ESTIMATE NORMAL (NORMAL); POIKILOCYTOSIS SLIGHT; TOTAL CELLS COUNTED 100; TOXIC GRANULATION PRESENT
[2017-06-15 08:59] LABS: TARGET CELLS SLIGHT
[2017-06-15] MEDS: levETIRAcetam 100 mg/ml (5ml) Oral Syringe PO SCH ×2 (10:27→17:16)
--- NOTE | 2017-06-15 11:42 | CP.PCM.PN ---
Subjective - Date & Time of Evaluation Date of Evaluation: 06/15/17 Time of Evaluation: 07:00 - Subjective Subjective: PGY1 Medicine Note for Dr. Reyes Patient seen and examined at bedside this morning. No acute events overnight. Patient is non-verbal, ROS unattainable. Objective - Vital Signs/Intake and Output Vital Signs (last 24 hours): Temp Pulse Resp BP Pulse Ox 98.9 F 153 H 20 120/78 98 06/15/17 09:23 06/15/17 08:38 06/15/17 08:38 06/15/17 08:38 06/15/17 00:00 Intake and Output: 06/15/17 06/15/17 06:59 18:59 Intake Total 130 Output Total 200 Balance -70 - Medications Medications: Current Medications Acetaminophen (Tylenol 650mg/20.3ml Solution Ud) 650 mg PO Q4 PRN PRN Reason: Temperature Last Admin: 06/15/17 08:23 Dose: 650 mg Ascorbic Acid (Vitamin C 500 Mg Tab) 500 mg PO DAILY [facility] Last Admin: 06/15/17 10:27 Dose: 500 mg Ergocalciferol (Drisdol 50,000 Intl Units Cap) 1 cap PO QWK [facility] Last Admin: 06/09/17 10:57 Dose: Not Given Heparin Sodium (Porcine) (Heparin) 5,000 units SC Q8 [facility] Last Admin: 06/15/17 05:38 Dose: 5,000 units Levetiracetam (Keppra) 500 mg PO BID [facility] Last Admin: 06/15/17 10:27 Dose: 500 mg Metoclopramide HCl (Reglan) 10 mg IVP Q8H [facility] Last Admin: 06/15/17 09:30 Dose: 10 mg Metoprolol Tartrate (Lopressor) 5 mg IVP Q4H PRN PRN Reason: Systolic Blood Pressure Last Admin: 06/15/17 08:20 Dose: 5 mg Metoprolol Tartrate (Lopressor) 50 mg PO BID [facility] Last Admin: 06/15/17 10:27 Dose: 50 mg Pantoprazole Sodium (Protonix Inj) 40 mg IVP DAILY [facility] Last Admin: 06/15/17 10:27 Dose: 40 mg Quetiapine Fumarate (Seroquel) 200 mg PO BID [facility] Last Admin: 06/15/17 10:28 Dose: 200 mg Ursodiol (Actigall) 300 mg PEG BID [facility] Last Admin: 06/15/17 10:28 Dose: 300 mg - Labs Labs: 06/15/17 06:58 06/15/17 06:58 PT 14.0 SECONDS (9.7-12.2) H 04/25/17 06:25 INR 1.2 04/25/17 06:25 APTT 32 SECONDS (21-34) 04/25/17 06:25 - Constitutional Appears: Non-toxic, No Acute Distress - Head Exam Head Exam: ATRAUMATIC, NORMOCEPHALIC - Eye Exam Eye Exam: EOMI, Normal appearance - ENT Exam ENT Exam: Mucous Membranes Moist - Respiratory Exam Respiratory Exam: Clear to Ausculation Bilateral, NORMAL BREATHING PATTERN. absent: Accessory Muscle Use, Rales, Rhonchi, Wheezes, Respiratory Distress - Cardiovascular Exam Cardiovascular Exam: Tachycardia, +S1, +S2 - GI/Abdominal Exam GI & Abdominal Exam: Soft, Normal Bowel Sounds. absent: Distended, Firm, Guarding, Rigid, Tenderness Additional comments: PEG tube in place. - Extremities Exam Extremities Exam: absent: Calf Tenderness, Pedal Edema - Neurological Exam Neurological Exam: Alert, Awake - Psychiatric Exam Psychiatric exam: Normal Affect (baseline), Normal Mood (baseline) - Skin Skin Exam: Dry, Warm Assessment and Plan - Assessment and Plan (Free Text) Plan: Leukocytosis WBC: 10.6 * blood culture 06/05: no growth after 5 days * urine culture 06/05: no growth * UA: 2+ protein, 6-10 hyaline casts Zosyn 4.5 IV Q8H (06/05/17) - discontinued 3/2 Vanco 1gm IV daily (06/05/17) - discontinued 3/2 Duodenal obstruction General Surgery, Dr. Mendez---> Help appreciated * post-operative day #53 status post gastrojejunostomy with bypass feeding tube placed. * tube feedings decreased to 50mL bolus feeds. if patient is still vomiting in morning, will send for repeat CT to eval for repeat obstruction. Mental disability/Schizophrenia - Seroquel 200mg PO BID - measure QTc and call if >500 Seizure - Keppra 500mg PO BID Hypertension with persistent tachycardia - Lopressor 50mg PO BID - Metoprolol 5mg IV q4h PRN Elevated Alk Phos Alk Phos: 112 AST: 33 ALT: 31 Diarrhea - tolerating tube feeds @ current feeds at 50mL bolus feeds, feeds increased up to 100mL - small bowel series was negative for obstruction 06/03 - Ursodiol 300 mg PEG BID - as per GI if vomiting/diarrhea do not resolve, repeat abdominal CT with PO and IV contrast Prophylactic measure - Continue PT/OT - Drisdol 50,000 IU 1cap PO qwk - VitC 500mg tab PO qd - DVT: Heparin 5000 U SC q8 - GI: Protonix 40mg IVP qd DISPO: Patient to be discharged to rehab upon approval. Patient's family will not be able to provide the care that would be necessary for the patient. Once patient is approved, patient is to be discharged immediately. Patient was originally accepted by [facility] but cancelled bed thinking that the patient was still trached. Patient no longer has a trach and has been breathing on her own for multiple weeks at this time. Will attempt to get new acceptance. Case discussed with Dr. Amy Odom Maynor PGY1
[2017-06-16] MEDS: Acetaminophen 650mg/20.3ml solution UD PO PRN (02:05)
[2017-06-16] MEDS: levETIRAcetam 100 mg/ml (5ml) Oral Syringe PO SCH ×2 (09:52→18:01)
[2017-06-16] MEDS: Ergocalciferol 50,000 Intl Units Cap PO SCH (10:43)
[2017-06-16 16:22] VITALS: BP 92/60; PULSE 99; TEMP 97.6; O2SAT 96
--- NOTE | 2017-06-16 21:19 | CP.PCM.DIS ---
Provider - Provider Date of Admission: 03/27/17 23:35 Attending physician: Mauri Reyes Jr, MD Consults: ICU - David GI - Faustino Gen Surgery - Arago Gen Surgery - [place] Hem - Delvin Nephro - Dany Neuro - Aureliano Neuro - Korya Psych - [place] [facility] - [facility] Time Spent in preparation of Discharge (in minutes): 30 Hospital Course - Lab Results Lab Results: Micro Results 06/05/17 07:00 Blood-Venous Blood Culture - Final NO GROWTH AFTER 5 DAYS 06/05/17 07:00 Blood-Venous Gram Stain - Final TEST NOT PERFORMED 06/05/17 07:30 Blood-Venous Blood Culture - Final NO GROWTH AFTER 5 DAYS 06/05/17 07:30 Blood-Venous Gram Stain - Final TEST NOT PERFORMED 06/08/17 17:12 Naris MRSA Culture - Final MRSA NOT DETECTED 06/05/17 09:06 Urine,Catheterized Urine Culture - Final No Growth (<1,000 CFU/ML) 04/28/17 20:00 Other: Please Indicate Blood Fungal Culture - Final 04/25/17 12:02 Other: Please Indicate Blood Fungal Culture - Final 05/22/17 18:20 Trachasp Gram Stain - Final 05/22/17 18:20 Trachasp Sputum Culture - Final Pseudomonas Aeruginosa 04/18/17 07:27 Other: Please Indicate Blood Fungal Culture - Final 05/13/17 Unknown Urine,Catheterized Urine Culture - Final No Growth (<1,000 CFU/ML) 05/02/17 20:41 Blood Blood Culture - Final NO GROWTH AFTER 5 DAYS 05/02/17 20:41 Blood Gram Stain - Final TEST NOT PERFORMED 05/02/17 20:40 Blood Blood Culture - Final NO GROWTH AFTER 5 DAYS 05/02/17 20:40 Blood Gram Stain - Final TEST NOT PERFORMED 05/02/17 19:07 Trachasp Gram Stain - Final 05/02/17 19:07 Trachasp Sputum Culture - Final NORMAL ORAL DALTON 05/02/17 19:07 Urine Urine Culture - Final Gram Positive Cocci 04/28/17 20:00 Blood-Venous Blood Culture - Final NO GROWTH AFTER 5 DAYS 04/28/17 20:00 Blood-Venous Gram Stain - Final TEST NOT PERFORMED 04/28/17 20:00 Blood-Venous Blood Culture - Final NO GROWTH AFTER 5 DAYS 04/28/17 20:00 Blood-Venous Gram Stain - Final TEST NOT PERFORMED 04/30/17 15:10 Trachasp Gram Stain - Final 04/30/17 15:10 Trachasp Sputum Culture - Final NORMAL ORAL DALTON 04/30/17 08:19 Urine,Catheterized Urine Culture - Final No Growth (<1,000 CFU/ML) 04/24/17 13:00 Blood Blood Culture - Final NO GROWTH AFTER 5 DAYS 04/24/17 13:00 Blood Gram Stain - Final TEST NOT PERFORMED 04/24/17 12:45 Blood Blood Culture - Final NO GROWTH AFTER 5 DAYS 04/24/17 12:45 Blood Gram Stain - Final TEST NOT PERFORMED 04/18/17 22:15 Blood-Venous Blood Culture - Final NO GROWTH AFTER 5 DAYS 04/18/17 22:15 Blood-Venous Gram Stain - Final TEST NOT PERFORMED 04/18/17 21:45 Blood-Venous Blood Culture - Final NO GROWTH AFTER 5 DAYS 04/18/17 21:45 Blood-Venous Gram Stain - Final TEST NOT PERFORMED 04/18/17 21:42 Abdomen Gram Stain - Final 04/18/17 21:42 Abdomen Wound Culture - Final No growth. 04/18/17 22:42 Urine,Catheterized Urine Culture - Final Yeast Species 04/12/17 08:00 Stool Stool Culture - Final NO SALMONELLA, SHIGELLA OR CAMPYLOBACTER ISOLATED. 04/14/17 08:00 Rectal Fluid Ova and Parasite Concentrate Exam - Final 04/08/17 11:47 Blood-Venous Blood Culture - Final NO GROWTH AFTER 5 DAYS 04/08/17 11:47 Blood-Venous Gram Stain - Final TEST NOT PERFORMED 04/08/17 11:47 Blood-Venous Blood Culture - Final NO GROWTH AFTER 5 DAYS 04/08/17 11:47 Blood-Venous Gram Stain - Final TEST NOT PERFORMED 04/08/17 07:00 Naris MRSA Culture (Admit) - Final MRSA NOT DETECTED 04/08/17 12:10 Throat Group A Strep Throat Culture - Final NO BETA STREP GROUP A ISOLATED. 04/08/17 12:48 Urine,Tovar Urine Culture - Final No Growth (<1,000 CFU/ML) 04/06/17 12:36 Naris MRSA Culture - Final MRSA NOT DETECTED 03/27/17 22:35 Blood Blood Culture - Final NO GROWTH AFTER 5 DAYS 03/27/17 22:35 Blood Gram Stain - Final TEST NOT PERFORMED 03/27/17 22:35 Blood Blood Culture - Final NO GROWTH AFTER 5 DAYS 03/27/17 22:35 Blood Gram Stain - Final TEST NOT PERFORMED 03/28/17 02:08 Naris MRSA Culture (Admit) - Final MRSA NOT DETECTED 03/28/17 01:35 Urine,Clean Catch Urine Culture - Final No Growth (<1,000 CFU/ML) Most Recent Lab Values WBC 10.6 K/uL (4.8-10.8) 06/15/17 06:58 RBC 3.15 Mil/uL (3.80-5.20) L 06/15/17 06:58 Hgb 9.1 g/dL (11.0-16.0) L 06/15/17 06:58 Hct 26.7 % (34.0-47.0) L 06/15/17 06:58 MCV 84.6 fL (81.0-99.0) 06/15/17 06:58 MCH 28.7 pg (27.0-31.0) 06/15/17 06:58 MCHC 34.0 g/dL (33.0-37.0) 06/15/17 06:58 RDW 16.9 % (11.5-14.5) H 06/15/17 06:58 Plt Count 415 K/uL (130-400) H 06/15/17 06:58 MPV 8.6 fL (7.2-11.7) 06/15/17 06:58 Neut % (Auto) 50.2 % (50.0-75.0) 06/15/17 06:58 Lymph % (Auto) 26.0 % (20.0-40.0) 06/15/17 06:58 Gonzales % (Auto) 22.9 % (0.0-10.0) H 06/15/17 06:58 Eos % (Auto) 0.6 % (0.0-4.0) 06/15/17 06:58 Baso % (Auto) 0.3 % (0.0-2.0) 06/15/17 06:58 Neut # (Auto) 5.3 K/uL (1.8-7.0) 06/15/17 06:58 Lymph # (Auto) 2.8 K/uL (1.0-4.3) 06/15/17 06:58 Gonzales # (Auto) 2.4 K/uL (0.0-0.8) H 06/15/17 06:58 Eos # (Auto) 0.1 K/uL (0.0-0.7) 06/15/17 06:58 Baso # (Auto) 0.0 K/uL (0.0-0.2) 06/15/17 06:58 Neutrophils % (Manual) 53 % (50-75) 06/15/17 06:58 Basophils % (Manual) 1 % (0-2) 04/01/17 06:28 Band Neutrophils % 1 % (0-2) 05/24/17 07:08 Metamyelocytes % 1 % (0-0) H 04/10/17 06:52 Lymphocytes % (Manual) 24 % (20-40) 06/15/17 06:58 Monocytes % (Manual) 23 % (0-10) H 06/15/17 06:58 Eosinophils % (Manual) 1 % (0-4) 05/24/17 07:08 Differential Comment 06/10/17 09:06 Smudge Cells Present 04/13/17 06:37 Toxic Granulation Present 06/15/17 06:58 Plt Clumps, EDTA Present 04/19/17 17:42 Large Platelets Present 04/30/17 06:39 Giant Platelets Present 04/09/17 06:24 Platelet Estimate Normal (NORMAL) 06/15/17 06:58 RBC Morphology Normal 04/03/17 06:50 Polychromasia Slight 04/20/17 06:41 Basophilic Stippling Slight 04/27/17 06:27 Microcytosis (manual) Slight 04/19/17 06:12 Macrocytosis (manual) Slight 04/17/17 06:38 Tear Drop Cells Slight 05/01/17 06:38 Ovalocytes Slight 05/01/17 06:38 Ofelia Cells Slight 04/12/17 16:20 Hypochromasia (manual) Slight 06/15/17 06:58 Poikilocytosis (manual Slight 06/15/17 06:58 Anisocytosis (manual) Slight 06/15/17 06:58 Target Cells Slight 06/15/17 06:58 PT 14.0 SECONDS (9.7-12.2) H 04/25/17 06:25 INR 1.2 04/25/17 06:25 APTT 32 SECONDS (21-34) 04/25/17 06:25 D-Dimer, Quantitative 4184 ng/mlDDU (0-243) H 04/05/17 22:38 Puncture Site Rb 05/23/17 02:40 pCO2 43 mm/Hg (35-45) 05/23/17 02:40 pO2 185 mm/Hg (80-100) H 05/23/17 02:40 HCO3 25.6 mmol/L (21-28) 05/23/17 02:40 ABG pH 7.39 (7.35-7.45) 05/23/17 02:40 ABG Total CO2 27.3 mmol/L (22-28) 05/23/17 02:40 ABG Hemoglobin 7.8 g/dL (11.7-17.4) L 05/05/17 05:07 ABG O2 Saturation 99.9 % (95-98) H 05/23/17 02:40 ABG Carboxyhemoglobin 1.2 % (0.5-1.5) 05/05/17 05:07 POC ABG HHb (Measured) 0.1 % (0.0-5.0) 05/05/17 05:07 ABG Base Excess 0.8 mmol/L (-2.0-3.0) 05/23/17 02:40 ABG Methemoglobin 0.6 % (0.0-3.0) 05/05/17 05:07 Daniel Test Na 05/23/17 02:40 ABG Potassium 3.2 mmol/L (3.6-5.2) L 05/23/17 02:40 VBG pH 7.43 (7.32-7.43) 04/06/17 09:10 VBG pCO2 42 mmHg (40-60) 04/06/17 09:10 VBG HCO3 26.9 mmol/L 04/06/17 09:10 VBG Total CO2 29.2 mmol/L (22-28) H 04/06/17 09:10 VBG O2 Sat (Calc) 83.0 % (40-65) H 04/06/17 09:10 VBG Base Excess 3.2 mmol/L (0.0-2.0) H 04/06/17 09:10 VBG Potassium 3.5 mmol/L (3.6-5.2) L 04/06/17 09:10 Hgb O2 Saturation 98.1 % (95.0-98.0) H 05/05/17 05:07 A-a O2 Difference 46.0 mm/Hg 05/23/17 02:40 Respiratory Index 0.2 05/23/17 02:40 Liter Flow 3.0 04/14/17 05:28 Sodium 138.0 mmol/l (132-148) 05/23/17 02:40 Chloride 109.0 mmol/L (98-107) H 05/23/17 02:40 Glucose 100 mg/dl (65-105) 05/23/17 02:40 Vent Mode Prvc 05/05/17 05:07 Lactate 0.4 mmol/L (0.7-2.1) L 05/23/17 02:40 Mechanical Rate 16 05/05/17 05:07 Tidal Volume 450 05/05/17 05:07 PEEP 5 05/05/17 05:07 FiO2 40.0 % 05/23/17 02:40 Crit Value Called To Dr hammer 04/18/17 14:30 Crit Value Called By Selvin cabral crt 04/18/17 14:30 Crit Value Read Back Y 04/18/17 14:30 Blood Gas Notified Time 1445 04/18/17 14:30 Sodium 137 mmol/L (132-148) 06/15/17 06:58 Potassium 3.9 mmol/L (3.6-5.2) 06/15/17 06:58 Chloride 100 mmol/L (98-107) 06/15/17 06:58 Carbon Dioxide 22 mmol/L (22-30) 06/15/17 06:58 Anion Gap 18 (10-20) 06/15/17 06:58 BUN 15 mg/dL (7-17) 06/15/17 06:58 Creatinine 0.6 mg/dL (0.7-1.2) L 06/15/17 06:58 Est GFR ( Amer) > 60 06/15/17 06:58 Est GFR (Non-Af Amer) > 60 06/15/17 06:58 POC Glucose (mg/dL) 102 mg/dL (65-110) 05/29/17 11:54 Random Glucose 90 mg/dL (65-105) 06/15/17 06:58 Hemoglobin A1c 5.3 % (4.2-6.5) 03/28/17 05:41 Serum Osmolality 322 mosm/kg (272-300) H 04/27/17 14:40 Lactic Acid 0.9 mmol/L (0.7-2.1) 06/05/17 09:54 Ionized Calcium 5.5 mg/dL (4.80-5.60) 04/08/17 08:19 Calcium 9.6 mg/dl (8.6-10.4) 06/15/17 06:58 Phosphorus 5.6 mg/dL (2.5-4.5) H 06/07/17 07:05 Magnesium 2.1 mg/dL (1.6-2.3) 06/07/17 07:05 Direct Bilirubin 0.4 mg/dL (0.0-0.4) 04/08/17 08:19 Total Bilirubin 0.3 mg/dL (0.2-1.3) 06/15/17 06:58 GGT 100 U/L (8-78) H 06/07/17 07:05 AST 33 U/L (14-36) 06/15/17 06:58 ALT 31 U/L (9-52) 06/15/17 06:58 Alkaline Phosphatase 112 U/L (38-126) 06/15/17 06:58 Ammonia < 9 umol/L (9-33) L 04/08/17 08:19 Lactate Dehydrogenase 648 U/L (313-618) H 04/08/17 12:45 Total Protein 7.6 g/dL (6.3-8.3) 06/15/17 06:58 Albumin 3.5 g/dL (3.5-5.0) 06/15/17 06:58 Globulin 4.1 gm/dL (2.2-3.9) H 06/15/17 06:58 Albumin/Globulin Ratio 0.8 (1.0-2.1) L 06/15/17 06:58 Ceruloplasmin 27 mg/dL (18-53) 04/08/17 11:49 Triglycerides 86 mg/dL (0-149) 04/09/17 16:35 Cholesterol 77 mg/dL (0-199) 04/09/17 16:35 LDL Cholesterol Direct < 30 mg/dL (0-129) 04/09/17 16:35 HDL Cholesterol 19 mg/dL (30-70) L 04/09/17 16:35 Amylase 94 U/L (30-110) 04/02/17 06:58 Lipase 320 U/L (23-300) H 04/02/17 06:58 Carcinoembryonic Ag 1.0 ng/mL (0-3.0) 03/28/17 14:55 CA 19-9 Antigen 5.1 U/mL (0-37) 03/28/17 14:55 CA 125 Antigen 9.0 U/mL (0-35) 03/28/17 14:55 Vitamin B12 638 pg/mL (239-931) 04/16/17 06:22 Folate 12.6 ng/mL 04/16/17 06:22 25-OH Vitamin D Total < 12.8 NG/ML (30.0-100.0) L 06/06/17 17:33 TSH 3rd Generation 0.46 mIU/L (0.46-4.68) 04/13/17 06:37 Procalcitonin 0.32 NG/ML (0.19-0.49) 05/25/17 11:40 Monomeric Prolactin 109.0 ng/mL (3.2-25.2) H 04/21/17 08:32 Prolactin 124.4 ng/mL H 04/21/17 08:32 Beta HCG, Quant < 2.39 mIU/ML 05/23/17 11:49 Venous Blood Potassium 3.5 mmol/L (3.6-5.2) L 04/06/17 09:10 Arterial Blood Potassium 3.2 mmol/L (3.6-5.2) L 05/23/17 02:40 Urine Color [place] (YELLOW) 06/05/17 09:02 Urine Clarity Hazy (Clear) 06/05/17 09:02 Urine pH 5.0 (5.0-8.0) 06/05/17 09:02 Ur Specific Maple 1.027 (1.003-1.030) 06/05/17 09:02 Urine Protein 2+ mg/dL (NEGATIVE) H 06/05/17 09:02 Urine Glucose (UA) 1+ mg/dL (Normal) 06/05/17 09:02 Urine Ketones Trace mg/dL (NEGATIVE) 06/05/17 09:02 Urine Blood Negative (NEGATIVE) 06/05/17 09:02 Urine Nitrate Negative (NEGATIVE) 06/05/17 09:02 Urine Bilirubin Negative (NEGATIVE) 06/05/17 09:02 Urine Urobilinogen Normal mg/dL (0.2-1.0) 06/05/17 09:02 Ur Leukocyte Esterase Neg Hermelindo/uL (Negative) 06/05/17 09:02 Urine WBC Clumps (Auto) Mod /hpf (NONE) H 03/28/17 01:35 Urine WBC (Auto) 4 /hpf (0-5) 06/05/17 09:02 Urine RBC (Auto) 2 /hpf (0-3) 06/05/17 09:02 Ur Squamous Epith Cells 1 /hpf (0-5) 06/05/17 09:02 Urine Bacteria Rare (<OCC) 06/05/17 09:02 Hyaline Casts 6-10 /lpf (0-2) H 06/05/17 09:02 Urine Yeast (Budding) Occ /hpf (NEGATIVE) H 03/28/17 01:35 Urine Osmolality 417 mosm/kg (300-1000) 04/27/17 14:40 U Random Total Protein Cancelled 04/08/17 15:32 Ur Random Sodium 92 mmol/L 04/27/17 14:40 Urine Chloride 17 mmol/L (32-290) L 04/08/17 15:32 Urine HCG, Qual Negative (NEGATIVE) 03/28/17 01:35 IgG, Serum (MS) 15.3 mg/dL (4-86) 04/09/17 16:44 Gastric Occult Blood Positive (NEGATIVE) H 03/30/17 12:56 Stool Sodium 6.10 mEq/L 04/12/17 07:32 Stool Potassium 61 mEq/L 04/12/17 07:32 Stool Chloride 6 mEq/L 04/12/17 07:32 Stool Occult Blood Positive (NEGATIVE) H 03/28/17 02:18 Stool Leukocytes, Qual Negative (NEGATIVE) 04/12/17 08:00 Stl Cryptosporidium Ag Not detected (Not detected) 04/12/17 07:32 Stl Giardia Antigen TEST NOT PERFORMED 04/12/17 07:32 Vancomycin Trough 11.4 ug/mL (5.0-10.0) H 06/07/17 07:45 Levetiracetam 6.5 mcg/mL 05/22/17 06:23 IgG 1062.8 mg/dL (700.0-1600.0) 06/02/17 06:36 JOSIAS 6 Profile Negative (NEGATIVE) 06/02/17 07:30 Anti-Mitochondrial Ab Negative (Negative) 06/02/17 07:30 Anti-Smooth Muscle Ab Negative (Negative) 06/02/17 07:30 C. difficile Ag & Toxin Negative (NEGATIVE) 04/30/17 Unknown Cryptosp/Giardia Source Stool 04/12/17 07:32 Giardia Antigen Not detected (Not Detected) 04/12/17 07:32 Hep Bs Antigen Negative (NEGATIVE) 04/11/17 18:01 Hep Bs Antibody Positive (NEGATIVE) 04/11/17 18:01 Hep B Core IgM Ab Negative (NEGATIVE) 04/11/17 18:01 Hepatitis C Antibody Negative (NEGATIVE) 04/14/17 11:56 Ur L.pneumophila Ag Negative (NEGATIVE) 04/08/17 12:09 Mycoplasma pneumon IgG 1.09 (<=0.90) H 04/08/17 12:45 Mycoplasma pneumon IgM 96 U/mL (<770) 04/08/17 12:45 Grp A Beta Strep Ag Negative (NEGATIVE) 04/08/17 12:10 Blood Type O POSITIVE 04/21/17 09:45 Antibody Screen Negative 04/21/17 09:45 Crossmatch See Detail 04/21/17 09:45 Discharge Exam - Head Exam Head Exam: ATRAUMATIC, NORMOCEPHALIC Discharge Plan - Follow Up Plan Condition: CRITICAL Disposition: REHAB FACILITY/REHAB UNIT Instructions: Sepsis in Adults, Pancreatitis (DC), Acute Kidney Failure (DC) Additional Instructions: Patient is to be discharged to [facility], per Dr. Reyes. Patient is to continue her current medication regiment. Patient is to follow up with Dr. Reyes as an outpatient within two weeks of being discharged. Patient is to follow up with Dr. William Harmon (GI) as needed. Patient is eligible for pleasure feeds at this time. She is no longer NPO. Suggestions from Nursing Staff for Feeding: Very minimal water (~20-30mL) with bolus feeds. Suggestions from Physical Therapy: Patient responds better to name Allie. She is much more active when having a screen (tablet or TV) in front of her face, especially if playing Bengali music , during rehab. Referrals: William Harmon [Staff Provider] - Mauri Reyes Jr., MD [Medical Doctor] -
== END 2017-06-16 20:30 | DRG 877 ==
LOC: C.ER 20:48 → C.9I 23:35 → C.6T 04-06 11:31 → C.9I 04-08 18:05 → C.3T 06-08 17:31
PROVIDERS: ADMIT Internal Medicine; ATTEND Internal Medicine
PROC: 5A1955Z Respiratory Ventilation, Greater than 96 Consecutive Hours (ICD-10-PCS; 2017-03-27)
PROC: 0BH17EZ Insertion of Endotracheal Airway into Trachea, Via Natural or Artificial Opening (ICD-10-PCS; 2017-03-27)
PROC: 02HV33Z Insertion of Infusion Device into Superior Vena Cava, Percutaneous Approach (ICD-10-PCS; 2017-03-28)
PROC: 0D9670Z Drainage of Stomach with Drainage Device, Via Natural or Artificial Opening (ICD-10-PCS; 2017-03-28)
PROC: 0DB68ZX Excision of Stomach, Via Natural or Artificial Opening Endoscopic, Diagnostic (ICD-10-PCS; 2017-03-29)
PROC: 0DD68ZX Extraction of Stomach, Via Natural or Artificial Opening Endoscopic, Diagnostic (ICD-10-PCS; 2017-03-29)
PROC: 02HV33Z Insertion of Infusion Device into Superior Vena Cava, Percutaneous Approach (ICD-10-PCS; 2017-04-11)
PROC: B548ZZA Ultrasonography of Superior Vena Cava, Guidance (ICD-10-PCS; 2017-04-11)
PROC: 5A1D70Z Performance of Urinary Filtration, Intermittent, Less than 6 Hours Per Day (ICD-10-PCS; 2017-04-13)
PROC: 0DJ08ZZ Inspection of Upper Intestinal Tract, Via Natural or Artificial Opening Endoscopic (ICD-10-PCS; 2017-04-13)
PROC: 0DJ08ZZ Inspection of Upper Intestinal Tract, Via Natural or Artificial Opening Endoscopic (ICD-10-PCS; 2017-04-13)
PROC: 0DC68ZZ Extirpation of Matter from Stomach, Via Natural or Artificial Opening Endoscopic (ICD-10-PCS; 2017-04-15)
PROC: 0DD68ZX Extraction of Stomach, Via Natural or Artificial Opening Endoscopic, Diagnostic (ICD-10-PCS; 2017-04-15)
PROC: 5A1D70Z Performance of Urinary Filtration, Intermittent, Less than 6 Hours Per Day (ICD-10-PCS; 2017-04-17)
PROC: 0D160ZA Bypass Stomach to Jejunum, Open Approach (ICD-10-PCS; 2017-04-18)
PROC: 0D967ZZ Drainage of Stomach, Via Natural or Artificial Opening (ICD-10-PCS; 2017-04-18)
PROC: 04JY0ZZ Inspection of Lower Artery, Open Approach (ICD-10-PCS; 2017-04-18)
PROC: 0DHA3UZ Insertion of Feeding Device into Jejunum, Percutaneous Approach (ICD-10-PCS; 2017-04-18)
PROC: 3E0H76Z Introduction of Nutritional Substance into Lower GI, Via Natural or Artificial Opening (ICD-10-PCS; 2017-04-18)
PROC: 5A1D70Z Performance of Urinary Filtration, Intermittent, Less than 6 Hours Per Day (ICD-10-PCS; 2017-04-20)
PROC: 02HV33Z Insertion of Infusion Device into Superior Vena Cava, Percutaneous Approach (ICD-10-PCS; 2017-04-25)
PROC: B5181ZA Fluoroscopy of Superior Vena Cava using Low Osmolar Contrast, Guidance (ICD-10-PCS; 2017-04-25)
PROC: 0BJ08ZZ Inspection of Tracheobronchial Tree, Via Natural or Artificial Opening Endoscopic (ICD-10-PCS; 2017-04-25)
PROC: 0B113F4 Bypass Trachea to Cutaneous with Tracheostomy Device, Percutaneous Approach (ICD-10-PCS; principal; 2017-04-25 15:00)
PROC: 0DJ08ZZ Inspection of Upper Intestinal Tract, Via Natural or Artificial Opening Endoscopic (ICD-10-PCS; 2017-05-23)
PROC: 0DH63UZ Insertion of Feeding Device into Stomach, Percutaneous Approach (ICD-10-PCS; 2017-05-23)
DX: K31.1 Adult hypertrophic pyloric stenosis (principal); J69.0 Pneumonitis due to inhalation of food and vomit; A41.9 Sepsis, unspecified organism; K55.059 Acute (reversible) ischemia of intestine, part and extent unspecified; J15.1 Pneumonia due to Pseudomonas; J95.851 Ventilator associated pneumonia; K25.6 Chronic or unspecified gastric ulcer with both hemorrhage and perforation; N17.0 Acute kidney failure with tubular necrosis; R65.21 Severe sepsis with septic shock; K65.1 Peritoneal abscess; G93.41 Metabolic encephalopathy; J96.01 Acute respiratory failure with hypoxia; K85.90 Acute pancreatitis without necrosis or infection, unspecified; Z99.11 Dependence on respirator [ventilator] status; K31.5 Obstruction of duodenum; K22.2 Esophageal obstruction; R18.8 Other ascites; F20.9 Schizophrenia, unspecified; E87.5 Hyperkalemia; B37.49 Other urogenital candidiasis; B96.5 Pseudomonas (aeruginosa) (mallei) (pseudomallei) as the cause of diseases classified elsewhere; E46 Unspecified protein-calorie malnutrition; E86.0 Dehydration; E87.0 Hyperosmolality and hypernatremia; E87.1 Hypo-osmolality and hyponatremia; I50.9 Heart failure, unspecified; J80 Acute respiratory distress syndrome; T18.2XXA Foreign body in stomach, initial encounter; K56.609 Unspecified intestinal obstruction, unspecified as to partial versus complete obstruction; I77.1 Stricture of artery; K29.60 Other gastritis without bleeding; K31.84 Gastroparesis; R47.01 Aphasia; Y84.8 Other medical procedures as the cause of abnormal reaction of the patient, or of later complication, without mention of misadventure at the time of the procedure; Z93.1 Gastrostomy status; Z99.2 Dependence on renal dialysis; R62.50 Unspecified lack of expected normal physiological development in childhood; F79 Unspecified intellectual disabilities; G40.89 Other seizures; K55.1 Chronic vascular disorders of intestine; D63.8 Anemia in other chronic diseases classified elsewhere; E16.2 Hypoglycemia, unspecified; E77.8 Other disorders of glycoprotein metabolism; E83.42 Hypomagnesemia; G82.20 Paraplegia, unspecified; I48.91 Unspecified atrial fibrillation; K21.0 Gastro-esophageal reflux disease with esophagitis